=== PATIENT | male | born 1965 | race Two or more races ===

== ENCOUNTER 2020-10-01 08:03 | Emergency (ER) | payer MEDICAID, SELFPAY ==
[2020-10-01 09:29] VITALS: BP 144/73; PULSE 90; RESP 16; TEMP 37.1; O2SAT 100; BMI 39.2
--- NOTE | 2020-10-01 09:49 | ED_ITS ---
HPI - General Adult General Chief complaint: Skin/Abscess/Foreign Body Stated complaint: ABSCESS Time Seen by Provider: 10/01/20 09:37 Source: patient Mode of arrival: ambulatory Limitations: no limitations History of Present Illness HPI narrative: abscess to left buttocks x 2 weeks. No fevers, chills. Using warm compresses with continued redness, swelling and pain. Related Data Previous Rx's Medication Instructions Recorded alcohol swabs 1 pad TOPICAL .4 times a day 30 08/21/20 Days #200 ea dulaglutide 0.75 mg/0.5 mL 0.75 mg SUBCUT QWEEK 30 Days #2.5 08/21/20 subcutaneous pen injector ml doxycycline monohydrate 100 mg PO BID #14 tab 10/01/20 Allergies Allergy/AdvReac Type Severity Reaction Status Date / Time lisinopril [LISINOPRIL] Allergy Mild RASH Unverified 05/01/20 16:48 Review of Systems Review of Systems: Yes all other systems are reviewed and are negative Constitutional: Constitutional: Reports no additional constitutional complaints, Denies body ache(s), Denies chills, Denies fever(s), Denies headache(s) and Denies weakness Eyes: Eyes: Reports no additional eye complaints and Denies change in vision ENT: Reports system reviewed and no additional complaints, except as documented, Denies dizziness, Denies headache(s), Denies nasal congestion, Denies nasal discharge and Denies neck pain Cardiovascular: Cardiovascular: Reports no additional cardiovascular complaints, Denies chest pain, Denies leg edema and Denies dyspnea Respiratory: Respiratory: Reports no additional respiratory complaints, Denies cough and Denies dyspnea Gastrointestinal: Gastrointestinal: Reports no additional gastrointestinal complaints, Denies abdominal pain, Denies diarrhea, Denies nausea and Denies vomiting Genitourinary: Genitourinary: Denies urinary incontinence Musculoskeletal: Musculoskeletal: Reports no additional musculoskeletal complaints, Denies back pain, Denies arthralgias, Denies joint swelling, Denies neck pain, Denies numbness and Denies tingling Integumentary/Breasts: Skin/Breast: Reports system reviewed and no additional complaints, except as docu, Reports swelling, Reports erythema and Denies rash Neurologic: Reports system reviewed and no additional complaints, except as documented, Denies Abnormal speech present, Denies dizziness, Denies headache(s), Denies numbness, Denies tingling and Denies weakness PMF Past Medical History Attestation statement: The following information was validated with the patient. Source: old records reviewed and nursing notes reviewed Medical History Diabetes type 2, controlled HTN (hypertension) Surgical History Hx of removal of cyst Family History Family History Father Heart disease Diabetes Mother Diabetes Heart disease Social History Social History Smoked in Last 30 Days: No Use of substances other than those prescribed or required for medical reasons: No Advance Directives: Yes Advance Directives Information Provided: Yes Advance Directives on File: No Physical Exam Vital Signs: Vital Signs: Last Vital Signs Temp 98.7 F 10/01/20 09:29 Pulse 90 10/01/20 09:29 Resp 16 10/01/20 09:29 BP 144/73 H 10/01/20 09:29 Pulse Ox 100 10/01/20 09:29 Body Mass Index 39.2 Const: General: cooperative, healthy appearing, comfortable and no acute distress Orientation/consciousness: patient oriented x3 Limitations: no limitations HENMT: Head: Yes normal to inspection Ears: hearing grossly normal bilaterally General nose exam: Normal external nose present Face and sinus: Yes normal facial exam Mouth: Normal oral and palatal mucosa present Throat: Yes posterior oropharynx normal Eyes: General: appearance normal, both eyes and all related structures Pupils: Equal, round and reactive pupils present Neck: Neck: Yes normal visual inspection Chest: Chest palpation & inspection: normal inspection of the chest Resp: Effort & Inspection: normal respiratory effort Auscultation: clear to auscultation bilaterally Cardio: Rate: regular rate Rhythm: regular rhythm Peripheral pulses: Peripheral pulses 2+ throughout GI: Inspection: Yes normal to inspection Palpation (GI): Soft to palpation and nontender Auscultation: normal bowel sounds Back/Spine/Pelvis: Thoracic/Lumbar Spine: thoracic and lumbar spine normal to inspection Skin: Other: to the left buttocks there is central medium abscess with surrounding erythema and induration which does NOT extend to testicles or anus. General skin exam: no rashes or lesions noted Neuro: General: patient oriented x3, no focal motor deficits and normal sensation to monofilament Cranial nerves: Yes Equal, round and reactive pupils present Cognition (Neuro): normal cognition Speech: No Abnormal speech present Gait exam (Neuro): Normal gait present Motor exam (neuro): 5/5 motor strength present throughout Extrem: General: Yes normal to inspection Course Course Course Narrative: left buttocks abscess with surrounding cellulitis. No systemic s/s of infection. See procedure note. Reviewed worrisome signs and symptoms when to return to the emergency d epartment. Comfortable discharge home. Procedures Abscess I/D Site: other (left buttocks) Side (if applicable): left Local Anesthetic: lidocaine 2% Sent for culture/gram staining?: No Irrigation: Yes Packing used?: iodoform Discharge Plan Discharge Clinical Impression: Abscess of skin or subcutaneous tissue Patient Disposition: Home, Self-Care Instructions: Abscess (ED) Additional Instructions: return in 48 hrs for packing removal. if packing falls out on its own no need to return unless you have fevers or chills or worsening redness Prescriptions: New doxycycline monohydrate 100 mg tablet 100 mg PO BID Qty: 14 RF: 0 No Action Trulicity 0.75 mg/0.5 mL pen injector 0.75 mg subcut QWEEK 30 Days Qty: 2.5 RF: 6 alcohol swabs [Alcohol Pads] Pads, Medicated 1 pad topical .4 times a day 30 Days Qty: 200 RF: 4 Referrals: Daniella Colon MD [Primary Care Provider] - 2 days Interventions: ED Discharge Assessment Last Done: 10/01/20 10:27 Discharge Date/Time: 10/01/20 10:27
[2020-10-01] MEDS: Lidocaine HCl 2 % MPF 5 ML VIAL SUBCUT (10:15)
== END 2020-10-01 10:27 | disposition home or self-care (01) ==
PROVIDERS: Emergency Provider Emergency Medicine; PCP Internal Medicine
DX: L02.31 Cutaneous abscess of buttock (principal)
CPT/HCPCS: 10060; 99283; 99284

== ENCOUNTER → 2020-10-22 10:12 | Outpatient (BNVA) | payer MEDICAID, SELFPAY | PROVIDERS: PCP Internal Medicine; Visit Provider Surgery | DX: L72.0 Epidermal cyst (principal) | CPT/HCPCS: 99202 ==

== ENCOUNTER → 2020-11-04 07:31 | Outpatient (BNVA) | payer MEDICAID, SELFPAY | PROVIDERS: PCP Internal Medicine; Visit Provider Internal Medicine Endocrinology, Diabetes & Metabolism | DX: E11.29 Type 2 diabetes mellitus with other diabetic kidney complication (principal); E11.21 Type 2 diabetes mellitus with diabetic nephropathy; R80.9 Proteinuria, unspecified; I10 Essential (primary) hypertension; E78.5 Hyperlipidemia, unspecified; E66.9 Obesity, unspecified | CPT/HCPCS: 82947; 99212 ==

== ENCOUNTER 2020-11-04 08:25 | Outpatient (REF) | payer MEDICAID, SELFPAY ==
[2020-11-04 10:45] LABS: Alanine Aminotransferase 16 U/L (0-40); Albumin Level 4.2 g/dL (3.5-5.0); Alkaline Phosphatase 81 U/L (39-117); Anion Gap 14 (12-20); Aspartate Amino Transferase 17 U/L (5-37); Bilirubin Total 0.4 mg/dL (0.0-1.0); Blood Urea Nitrogen 11 mg/dL (9-16); Calcium 8.9 mg/dL (8.4-10.2); Carbon Dioxide 28 mmol/L (22-29); Chloride 108 mmol/L (96-108); Cholesterol 140 mg/dL; Estimated Glomerular Filt Rate > 60; Glucose Fasting 124 mg/dL (60-99); HDL Cholesterol 49 mg/dL; LDL Cholesterol Calculated 71 mg/dl; Potassium 4.2 mmol/L (3.3-5.1); Sodium 146 mmol/L (135-145); Total Protein 6.6 g/dL (6.5-8.0); Triglycerides 103 mg/dL
[2020-11-04 10:52] LABS: Creatinine Urine 83.62 mg/dL; Microalbum/Creatinine Ratio Ur 20.3 ug/mg cr
[2020-11-04 11:07] LABS: Free T4 (Free Thyroxine) 0.94 ng/dL (0.71-1.85)
[2020-11-04 11:34] LABS: Vitamin B12 252 pg/mL (200-900)
[2020-11-05 07:27] LABS: LDL Cholesterol Direct 70 mg/dL (<100)
== END 2020-11-04 08:26 | disposition home or self-care (01) ==
LOC: HO.10HDL 08:25
PROVIDERS: Visit Provider Internal Medicine Endocrinology, Diabetes & Metabolism
DX: R80.9 Proteinuria, unspecified (principal); E11.29 Type 2 diabetes mellitus with other diabetic kidney complication
CPT/HCPCS: 36415; 80053; 80061; 82043; 82607; 83721; 84439; 84443

== ENCOUNTER 2020-11-05 13:00 | Outpatient (REF) | payer MEDICAID, SELFPAY ==
[2020-11-05 12:50] VITALS: BP 128/65; PULSE 80; RESP 17; TEMP 36.8; O2SAT 95; BMI 39.7
--- NOTE | 2020-11-05 14:05 | MHC.SHP ---
Pre-Procedural Eval Section B Chief Complaint: Epidermal Cyst Allergies: Allergies Allergy/AdvReac Type Severity Reaction Status Date / Time lisinopril [LISINOPRIL] Allergy Mild RASH Verified 10/22/20 10:24 Plan I have reviewed the history and physical and performed a pertinent physical examination on my patient. No changes have occurred unless specified.
--- NOTE | 2020-11-05 14:05 | W.PM.OPN ---
Operative Note Operative Note Date of Service: 11/05/20 Narrative: Preop diagnosis: epidermal cyst, right upper back Postop diagnosis: Epidermal cyst, right upper back Procedure: Excision of epidermal cyst, right upper back under local anesthesia Surgeon: Lit Norton MD The patient is a 55-year-old male with an epidermal cyst on the right upper back measuring about 3 cm in size. He wanted this removed in view of symptoms and increase in size. He understood the technique of excision under local anesthesia. He was aware of the risks, benefits, and alternatives. Was brought to the minor procedure room. He was placed in prone position. The area of the cyst on the right upper back was prepped and draped. Lidocaine 1% was used for local anesthesia. An incision was made in the skin overlying this cyst using the IBD 15. This carried down through the full-thickness skin and thick subcutaneous fat until the capsule was visualized. I then sharply dissected the capsule off of the rest of the deep subcutaneous layer using sharp scissors circumferentially. We continued to dissect this all the way posteriorly until the entire cyst was completely delivered and sent as specimen. The cyst diameter is about almost 3 cm. I irrigated the area of excision. I closed the incision with full-thickness nylon 3 0 interrupted sutures. Dressings were applied He tolerated procedure well. There were no complication noted. Estimated blood loss was less than 3 cc.
== END 2020-11-05 13:01 | disposition home or self-care (01) ==
LOC: HO.MS 13:00
PROVIDERS: PCP Internal Medicine; Visit Provider Surgery
PROC: (CPT 11403; principal; 2020-11-05 13:00)
DX: L72.0 Epidermal cyst (principal); I10 Essential (primary) hypertension; E11.9 Type 2 diabetes mellitus without complications; Z79.899 Other long term (current) drug therapy; Z88.8 Allergy status to other drugs, medicaments and biological substances
CPT/HCPCS: 11403; 88304

== ENCOUNTER → 2020-11-18 10:29 | Outpatient (BNVA) | payer MEDICAID, SELFPAY | PROVIDERS: PCP Internal Medicine; Visit Provider Surgery Vascular Surgery | DX: I83.11 Varicose veins of right lower extremity with inflammation (principal) | CPT/HCPCS: 99202 ==

== ENCOUNTER → 2020-11-19 10:20 | Outpatient (BNVA) | payer MEDICAID, SELFPAY | PROVIDERS: PCP Internal Medicine; Visit Provider Surgery | DX: Z48.817 Encounter for surgical aftercare following surgery on the skin and subcutaneous tissue (principal); Z48.02 Encounter for removal of sutures; Z87.2 Personal history of diseases of the skin and subcutaneous tissue | CPT/HCPCS: 99212 ==

== ENCOUNTER 2020-12-08 07:58 | Outpatient (REF) | payer MEDICAID, SELFPAY ==
--- NOTE | ~2020-12-08 | US_ITS ---
EXAMINATION: RIGHT and LEFT LOWER EXTREMITY VENOUS ULTRASOUND (Reflux Exam) CLINICAL INDICATION: leg pain and varicose veins. COMPARISON: None. TECHNIQUE: Color flow triplex imaging and compression Doppler was performed to evaluate both the deep and the superficial systems bilaterally. To evaluate the superficial system, the examination was performed in the upright position. Color-flow Doppler ultrasound and compression ultrasound were utilized. In addition, maneuvers were utilized to demonstrate reflux. FINDINGS: 1. DEEP VENOUS ULTRASOUND OF THE RIGHT LOWER EXTREMITY: Respiratory variation, normal compression and augmented flow are noted in the right common femoral vein as well as the right popliteal vein and there is no evidence of deep venous thrombosis at these locations. There is no evidence of reflux in the deep system in either the common femoral vein or the popliteal vein. There is no evidence of a Levine's cyst. 2. SUPERFICIAL ULTRASOUND WITH DOPPLER OF RIGHT LOWER EXTREMITY: The right great saphenous vein at the saphenofemoral junction measures 6 mm, at the mid thigh 6 mm, [id number] 4 mm, nhbdn-enb-mfdu 3 mm, at mid calf 3 mm and at the ankle measures 3 mm. There is a 0.5 second reflux in the mid calf and 1.1 seconds reflux at the ankle. The right small saphenous vein measures 3 mm and shows no reflux. There is a safety aide in the distal thigh that measures 2 mm and does not demonstrate reflux. There are varicosities in the thigh and calf. There is a 3 mm varicosity in the proximal calf that demonstrates 0.7 second reflux. 3. DEEP VENOUS ULTRASOUND OF THE LEFT LOWER EXTREMITY: Respiratory variation, normal compression and augmented flow are noted in the left common femoral vein as well as the left popliteal vein and there is no evidence of deep venous thrombosis at these locations. There is reflux in the left popliteal vein measuring 2.1 seconds.. There is no evidence of a Levine's cyst. 4. SUPERFICIAL ULTRASOUND WITH DOPPLER OF LEFT LOWER EXTREMITY: Left great saphenous vein at the saphenofemoral junction measures 9 mm, at the mid thigh 4 mm, ltnrs-hhh-znmb 5 mm, uhdgl-npf-fltc 5 mm, at mid calf 3 mm and at the ankle measures 4 mm. There is no reflux demonstrated in the left great saphenous vein. The left small saphenous vein measures 3-4 mm and shows no reflux. There is a safety aide in the mid calf that measures 3 mm and does not demonstrate reflux. There are varicosities in the thigh and calf that do not demonstrate reflux. US/US venous duplex LE BI IMPRESSION: 1. No evidence of DVT. Left popliteal vein deep venous reflux. 2. Right greater saphenous vein reflux at mid calf and ankle. No left greater saphenous vein reflux.
== END 2020-12-08 07:59 | disposition home or self-care (01) ==
LOC: HO.US 07:58
PROVIDERS: Visit Provider Surgery Vascular Surgery
DX: I83.893 Varicose veins of bilateral lower extremities with other complications (principal); I83.11 Varicose veins of right lower extremity with inflammation
CPT/HCPCS: 93970

== ENCOUNTER → 2020-12-16 14:38 | Outpatient (BNVA) | payer MEDICAID, SELFPAY | PROVIDERS: PCP Internal Medicine; Visit Provider Surgery Vascular Surgery | DX: I83.11 Varicose veins of right lower extremity with inflammation (principal) | CPT/HCPCS: 99212 ==

== ENCOUNTER → 2021-06-30 07:55 | Outpatient (BNVA) | payer MEDICAID, SELFPAY | PROVIDERS: PCP Internal Medicine; Visit Provider Nurse Practitioner Gerontology | DX: E11.29 Type 2 diabetes mellitus with other diabetic kidney complication (principal); E11.21 Type 2 diabetes mellitus with diabetic nephropathy; E78.5 Hyperlipidemia, unspecified; I10 Essential (primary) hypertension; R80.9 Proteinuria, unspecified; E66.9 Obesity, unspecified; Z68.39 Body mass index [BMI] 39.0-39.9, adult | CPT/HCPCS: 82947; 83036; 99212 ==

== ENCOUNTER 2021-08-24 | Outpatient (REF) | payer MEDICAID, SELFPAY ==
[2021-08-24 15:50] LABS: Binax Internal Control QC Valid; Binax Now Covid-19 Ag Negative (Negative)
== END 2021-08-24 00:01 | disposition home or self-care (01) ==
LOC: HO.LAB
PROVIDERS: Visit Provider Internal Medicine
DX: Z20.822 Contact with and (suspected) exposure to COVID-19 (principal)
CPT/HCPCS: 36415; C9803

== ENCOUNTER → 2021-11-11 13:52 | Outpatient (BNVA) | payer MEDICAID, SELFPAY | PROVIDERS: PCP Internal Medicine; Visit Provider Surgery | DX: Z01.818 Encounter for other preprocedural examination (principal); K42.9 Umbilical hernia without obstruction or gangrene; E66.01 Morbid (severe) obesity due to excess calories | CPT/HCPCS: 99212 ==

== ENCOUNTER 2021-12-16 10:00 | Outpatient (RCR) | payer MEDICAID, SELFPAY | END 2021-12-16 11:06 | disposition home or self-care (01) | LOC: HO.PTCHIC 10:00 | PROVIDERS: PCP Internal Medicine; Visit Provider Physician Assistant Medical | DX: M54.50 Low back pain, unspecified (principal) | CPT/HCPCS: 97110; 97140; 97162 ==

== ENCOUNTER → 2021-12-29 07:38 | Outpatient (BNVA) | payer MEDICAID, SELFPAY | PROVIDERS: PCP Internal Medicine; Visit Provider Nurse Practitioner Gerontology | DX: E11.29 Type 2 diabetes mellitus with other diabetic kidney complication (principal); E11.21 Type 2 diabetes mellitus with diabetic nephropathy; E78.5 Hyperlipidemia, unspecified; E66.9 Obesity, unspecified; I10 Essential (primary) hypertension; R80.9 Proteinuria, unspecified; Z68.37 Body mass index [BMI] 37.0-37.9, adult | CPT/HCPCS: 82947; 83036; 99212 ==

== ENCOUNTER 2022-01-08 09:43 | Day surgery (SDC) | payer MEDICAID, SELFPAY ==
[2022-01-04 11:14] VITALS: BMI 39.0
[2022-01-04 12:01] VITALS: BMI 38.7
--- NOTE | 2022-01-07 08:46 | HO.ANESPROP2 ---
Documented by User: Cheryl Ferrara NP 01/07/22 08:46 HPI - Anesthesia Eval Consult details Narrative: 56yo M for Hernia Repair Umbilical possible mesh PMFSH Active Problems Active Problems: All Active Problems (Updated 01/04/22 @ 12:01 by Jordana Chavez, RN) Varicose veins of right lower extremity with inflammation (Acute) Morbid obesity (Acute) Umbilical hernia (Acute) Obesity (BMI 30-39.9) (Acute) Dyslipidemia (Acute) HTN (hypertension) (Acute) Diabetic nephropathy associated with type 2 diabetes mellitus (Acute) Epidermal cyst (Acute) Diabetes type 2, controlled (Acute) Past Medical History Medical History (Updated 01/04/22 @ 12:01 by Jordana Chavez RN) Ambulates with cane Back pain due to injury Diabetes type 2, controlled Diabetic nephropathy associated with type 2 diabetes mellitus Dyslipidemia Epidermal cyst HTN (hypertension) Morbid obesity Obesity (BMI 30-39.9) Umbilical hernia Family History Family History Father Heart disease Diabetes Mother Diabetes Heart disease Surgical History Surgical History (Updated 01/04/22 @ 12:00 by Jordana Chavez RN) Hx of removal of cyst Social History Social History Household Members: Significant Other Are you a primary special needs child caregiver to a significant other at home: No Do you presently have visiting nurse or other home services: Yes (Home medication check q week) Alcohol intake: current Alcohol intake frequency: holidays/special occasions only Patient Tobacco Use Status: Never used Tobacco Use of substances other than those prescribed or required for medical reasons: No Have you been hit, kicked, punched, or otherwise hurt by someone within the past year? If so, by whom?: No Are you DNR?: No Advance Directives: No Advance Directives Information Provided: Yes Advance Directives on File: No Recently lost weight without trying: No Meds Allergies Allergy/AdvReac Type Severity Reaction Status Date / Time lisinopril [LISINOPRIL] Allergy Mild RASH Verified 01/08/22 09:49 Home Medications Medication Instructions Recorded Confirmed Last Taken Type atorvastatin 10 mg tablet 10 mg PO BEDTIME 10/22/20 01/04/22 Unknown History carvedilol 12.5 mg tablet 12.5 mg PO Q12H 10/22/20 01/04/22 01/08/22 09:00 History cholecalciferol (vitamin D3) 25 25 mcg PO DAILY 10/22/20 01/04/22 Unknown History mcg (1,000 unit) capsule dextromethorphan-guaifenesin 10 ml PO 11/04/20 11/11/21 Unknown History mg-100 mg/5 mL oral syrup losartan 50 mg tablet 50 mg PO DAILY 11/04/20 01/04/22 Unknown History trazodone 150 mg tablet 150 mg PO BEDTIME 11/04/20 01/04/22 Unknown History hydrochlorothiazide 25 mg tablet 25 mg PO DAILY 11/19/20 01/04/22 Unknown History buspirone 5 mg tablet 1 tab PO QAM 01/04/22 01/04/22 01/08/22 09:00 History sertraline 100 mg tablet 1.5 tab PO DAILY 01/04/22 01/04/22 Unknown History zolpidem 10 mg tablet 1 tab PO BEDTIME PRN 01/04/22 01/04/22 Unknown History Exam Exam Date and Time: January 07, 2022 0846 Height,Weight and Vital Signs: Height 5 ft 10 in Weight 122.47 kg Assessment and Plan Assessment Anesthesia Assessment: Chart Reviewed Documented by User: Israel Varghese MD 01/08/22 13:13 HPI - Anesthesia Eval Consult details Narrative: 56yo M for Hernia Repair Umbilical possible mesh 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 , DM , HTN , Morbid obesity [facility] Past Medical History Medical History (Updated 01/04/22 @ 12:01 by Jordana Chavez, JALIL) Ambulates with cane Back pain due to injury Diabetes type 2, controlled Diabetic nephropathy associated with type 2 diabetes mellitus Dyslipidemia Epidermal cyst HTN (hypertension) Morbid obesity Obesity (BMI 30-39.9) Umbilical hernia Functional capacity: independent ambulation Family History Family History Father Heart disease Diabetes Mother Diabetes Heart disease Family history of problems with anesthesia: No Surgical History Surgical History (Updated 01/04/22 @ 12:00 by Jordana Chavez RN) Hx of removal of cyst History of Problems with Anesthesia: No Social History Social History Household Members: Significant Other Are you a primary special needs child caregiver to a significant other at home: No Do you presently have visiting nurse or other home services: Yes (Home medication check q week) Alcohol intake: current Alcohol intake frequency: holidays/special occasions only Patient Tobacco Use Status: Never used Tobacco Use of substances other than those prescribed or required for medical reasons: No Have you been hit, kicked, punched, or otherwise hurt by someone within the past year? If so, by whom?: No Are you DNR?: No Advance Directives: No Advance Directives Information Provided: Yes Advance Directives on File: No Recently lost weight without trying: No Meds Allergies Allergy/AdvReac Type Severity Reaction Status Date / Time lisinopril [LISINOPRIL] Allergy Mild RASH Verified 01/08/22 09:49 Home Medications Medication Instructions Recorded Confirmed Last Taken Type atorvastatin 10 mg tablet 10 mg PO BEDTIME 10/22/20 01/04/22 Unknown History carvedilol 12.5 mg tablet 12.5 mg PO Q12H 10/22/20 01/04/22 01/08/22 09:00 History cholecalciferol (vitamin D3) 25 25 mcg PO DAILY 10/22/20 01/04/22 Unknown History mcg (1,000 unit) capsule dextromethorphan-guaifenesin 10 ml PO 11/04/20 11/11/21 Unknown History mg-100 mg/5 mL oral syrup losartan 50 mg tablet 50 mg PO DAILY 11/04/20 01/04/22 Unknown History trazodone 150 mg tablet 150 mg PO BEDTIME 11/04/20 01/04/22 Unknown History hydrochlorothiazide 25 mg tablet 25 mg PO DAILY 11/19/20 01/04/22 Unknown History buspirone 5 mg tablet 1 tab PO QAM 01/04/22 01/04/2222 09:00 History sertraline 100 mg tablet 1.5 tab PO DAILY 01/04/22 01/04/22 Unknown History zolpidem 10 mg tablet 1 tab PO BEDTIME PRN 01/04/22 01/04/22 Unknown History Exam Airway Mallampati Class: III TM Dist: >3cm Neck ROM: Full Loose/Missing/Broken Teeth: Yes (Chipped teeth ) Heart: s1, S2 Lungs: distant breath sounds Assessment and Plan Assessment Anesthesia Assessment: Anesthesia Plan Discussed Final Anesthetic Review Family History of Problems with Anesthesia: No History of Problems with Anesthesia: No NPO: Yes ASA Class: III Final Preanesthetic Review: Meds/Allgs Chart Reviewed, Consent Obtained/Reviewed and Anes Risks/Benef Reviewed Patient Risk: High Procedure Risk: Intermediate Anesthetic Plan Anesthetic Plan: GA Disposition: Standard PACU
[2022-01-08] VITALS (8 sets, daily range): BP systolic 98–128; BP diastolic 64–78; PULSE 70–80; RESP 8–18; TEMP 36.4–37.3; O2SAT 95–98
[2022-01-08 10:05] LABS: Glucose, Whole Blood 129 mg/dL (60-115)
[2022-01-08] MEDS: Lactated Ringers 1,000 ML 50 ML IVCONT (10:46)
--- NOTE | 2022-01-08 13:48 | P.OP_ITS ---
Operative Note Operative Note Date of Service: 01/08/22 Narrative: Preop diagnosis: Umbilical hernia Postop diagnosis: Umbilical hernia Procedure: Repair of umbilical hernia with Ventralex mesh Surgeon: Lit Norton MD The patient is a 56-year-old male with the partially reducible mass on the umbilicus consistent with umbilical hernia. In view of symptoms, he wanted proceed with repair. He understood the technique of repair with mesh. He was aware of the risks, benefits, and alternatives . He was brought to the operating room. He was placed supine under general anesthesia via laryngeal mask airway. He was prepped and draped in the usual sterile fashion. A surgical time-out was done. The patient received cefazolin 2 g IV preoperatively. I infiltrated the planned line of incision with lidocaine 1%. I made a curvilinear transverse incision in the infraumbilical margin using blade 15. This was carried down through the full-thickness of skin and subcutaneous fat with electrocautery. I proceeded to sharply dissected with Metzenbaum scissors through the subcutaneous fat until I visualized the hernia. I sharply dissected the hernia off of the rest of subcutaneous layer you with Metzenbaum scissors down to the fascia. The umbilicus was lifted off the hernia as a flap. I defined the hernia defect. I continued to sharply divide thin adhesions from the herniated fat into the fascial edge. This allowed me to free up the entire hernia circumferentially and this was reduced to the defect. The fascial defect was about 2 cm in size. I therefore used a small-sized Ventralex mesh. I positioned the mesh flat underneath the fascia. I secured the Prolene straps of the mesh to the fascial edge using Prolene 2 sutures on both sides. the Prolene straps were then trimmed flush on the fascial level I closed the fascia with a [id number] Maxon 1 stitch. I applied a Dexon 3-0 stitch to tack the umbilicus to the fascia to re-create the dimple I irrigated. I closed the incision with a running subcuticular Dexon 4-0 stitch. I infiltrated the area with Marcaine 0.5% for postop analgesia. Steri- Strips and dressings were applied. The procedure was completed The patient tolerated the procedure well. There were no complications noted. Initial and final counts of sponges and instruments were correct. Estimated blood loss was less than 5 cc The patient extubated without difficulty and transferred to the recovery room w ith stable vital signs.
== END 2022-01-08 15:23 | disposition home or self-care (01) ==
PROVIDERS: PCP Internal Medicine; Visit Provider Surgery
PROC: (CPT 49585; principal; 2022-01-08 11:30)
DX: K42.9 Umbilical hernia without obstruction or gangrene (principal); G47.33 Obstructive sleep apnea (adult) (pediatric); E11.21 Type 2 diabetes mellitus with diabetic nephropathy; I10 Essential (primary) hypertension; E78.5 Hyperlipidemia, unspecified; E66.01 Morbid (severe) obesity due to excess calories; Z68.39 Body mass index [BMI] 39.0-39.9, adult; G89.29 Other chronic pain; M54.9 Dorsalgia, unspecified; Z79.899 Other long term (current) drug therapy; Z88.8 Allergy status to other drugs, medicaments and biological substances
CPT/HCPCS: 49585; 82947; C1781; J0690; J2405; J3010

== ENCOUNTER 2022-01-20 10:53 | Outpatient (REF) | payer MEDICAID, SELFPAY ==
[2022-01-20 12:17] LABS: Alanine Aminotransferase 19 U/L (0-40); Albumin Level 4.2 g/dL (3.5-5.0); Alkaline Phosphatase 81 U/L (39-117); Anion Gap 13 (12-20); Aspartate Amino Transferase 23 U/L (5-37); Bilirubin Total 0.7 mg/dL (0.0-1.0); Blood Urea Nitrogen 14 mg/dL (9-16); Calcium 8.9 mg/dL (8.4-10.2); Carbon Dioxide 29 mmol/L (22-29); Chloride 103 mmol/L (96-108); Cholesterol 110 mg/dL; Estimated Glomerular Filt Rate > 60; Glucose Fasting 101 mg/dL (60-99); HDL Cholesterol 32 mg/dL; LDL Cholesterol Calculated 57 mg/dl; Potassium 3.8 mmol/L (3.3-5.1); Sodium 141 mmol/L (135-145); Triglycerides 108 mg/dL
[2022-01-20 12:39] LABS: Creatinine Urine 243.63 mg/dL; Microalbum/Creatinine Ratio Ur 7.3 ug/mg cr
[2022-01-20 12:43] LABS: Vitamin D 25-OH Total 33.9 ng/mL (>30)
[2022-01-22 01:37] LABS: LDL Cholesterol Direct 60 mg/dL (<100)
== END 2022-01-20 10:54 | disposition home or self-care (01) ==
LOC: HO.LAB 10:53
PROVIDERS: Visit Provider Nurse Practitioner Gerontology
DX: E11.29 Type 2 diabetes mellitus with other diabetic kidney complication (principal); R80.9 Proteinuria, unspecified; E55.9 Vitamin D deficiency, unspecified
CPT/HCPCS: 36415; 80053; 80061; 82043; 82306; 83721

== ENCOUNTER → 2022-01-25 09:05 | Outpatient (BNVA) | payer MEDICAID, SELFPAY | PROVIDERS: PCP Internal Medicine; Visit Provider Dietitian, Registered | DX: E11.21 Type 2 diabetes mellitus with diabetic nephropathy (principal) | CPT/HCPCS: 97802 ==

== ENCOUNTER → 2022-03-26 09:55 | Outpatient (BNVA) | payer MEDICAID, SELFPAY | PROVIDERS: PCP Internal Medicine; Visit Provider Dietitian, Registered | DX: E11.21 Type 2 diabetes mellitus with diabetic nephropathy (principal) | CPT/HCPCS: 97803 ==

== ENCOUNTER 2022-03-27 13:08 | Inpatient (IN) | payer MEDICAID, SELFPAY ==
--- NOTE | ~2022-03-27 | CT_ITS ---
EXAMINATION: CT ABDOMEN AND PELVIS WITHOUT CONTRAST CLINICAL INFORMATION: Right-sided abdominal pain. Rule out appendicitis or biliary disease. COMPARISON: CT abdomen pelvis 01/18/2009 TECHNIQUE: Multidetector volumetric imaging was performed from the superior aspect of the liver through the pubic symphysis. Sagittal and coronal reformatted images were obtained on the technologist's workstation. This CT examination was performed using dose optimization techniques as appropriate, variously including the following: *Automated exposure control *Adjustment of mA and/or kV according to patient size (this includes techniques or standardized protocols for targeted exams where dose is matched to indication/reason for exam; i.e. extremities or head) *Use of iterative reconstruction technique DLP: 912 mGy-cm FINDINGS: LUNG BASES: Minimal bibasilar atelectasis. Mild LAD coronary artery calcification. LIVER, GALLBLADDER, AND BILIARY TREE: The liver is normal in size, shape, and attenuation. No focal hepatic lesion or biliary ductal dilatation is present. The gallbladder is unremarkable with no evidence of radiopaque gallstones, gallbladder wall thickening, or obvious pericholecystic inflammatory changes. PANCREAS: Unremarkable. SPLEEN: Unremarkable. ADRENAL GLANDS: Unremarkable. KIDNEYS AND URETERS: The kidneys are normal in size, shape, and attenuation. No hydronephrosis, hydroureter, or calculi seen. No perinephric stranding. BLADDER: Unremarkable. GASTROINTESTINAL TRACT: The appendix is markedly dilated measuring up to 2.7 cm in diameter with suspected mural thickening and periappendiceal fat stranding with thickening of the adjacent pararenal and lateral conal fascia. No extraluminal gas or periappendiceal abscess. No dilated bowel loops or additional bowel wall thickening couple diverticuli the proximal sigmoid colon noted. No ascites or free air. ABDOMINAL WALL: Small suspected fat-containing left inguinal hernia. LYMPH NODES: No lymphadenopathy. VASCULAR: Normal caliber abdominal aorta with mild tortuosity. PELVIC VISCERA: Normal sized prostate gland with coarse calcifications. OSSEOUS STRUCTURES: No acute fracture or suspicious osseous lesion. Mild multilevel degenerative disc disease. CT/CT abdomen pelvis wo con IMPRESSION: 1. Markedly dilated fluid-filled appendix with periappendiceal inflammatory change compatible with acute appendicitis. No evidence of perforation or abscess. The degree of appendiceal dilation is somewhat atypical and raises the possibility of an underlying mucocele with superimposed acute appendicitis. This critical result was discussed with Dr. Brito at 7:33 PM on 03/27/2022 and it was ascertained that the content and urgency of the report was understood at the time of direct communication.
[2022-03-27 13:42] VITALS: BP 130/80; PULSE 97; RESP 20; TEMP 37.9; O2SAT 95; BMI 37.3
[2022-03-27] MEDS: Acetaminophen 325 MG TABLET 650 MG PO (13:47)
[2022-03-27 16:49] VITALS: BP 126/76; PULSE 98; RESP 20; TEMP 37.5; O2SAT 95
[2022-03-27 17:07] LABS: MANUAL DIFF FLAG NO
[2022-03-27 17:16] LABS: Basophils Percent Auto 0.2 % (0-2); Hemoglobin 14.2 g/dl (14.0-18.0); Imm Gran Abs Auto 0.05 X10*3/uL (0.00-0.03); Imm Gran Pct Auto 0.4 % (0.0-0.4); Lymphocytes Absolute Auto 0.7 X10*3/uL (1.2-4.9); Lymphocytes Percent Auto 6.1 % (20-40); Mean Corpuscular Hemoglobin 28.5 pg (27.0-33.0); Mean Corpuscular Volume 86.3 fL (80.0-98.0); Mean Platelet Volume 10.1 fL (9.4-12.4); Monocytes Absolute Auto 0.6 X10*3/uL (0.1-1.2); Monocytes Percent Auto 4.7 % (2-11); Neutrophils Absolute Auto 10.5 x10*3/uL (2.0-8.3); Neutrophils Percent Auto 88.6 % (45-73); Platelet Count 138 X10*3/uL (160-400); Red Blood Count 4.98 X10*6/uL (4.60-5.80); Red Cell Distribution Width 13.5 % (11.0-16.0); White Blood Count 11.9 X10*3/uL (4.8-10.8)
[2022-03-27 17:25] LABS: COVID-19 Test Negative (Negative)
[2022-03-27 17:27] LABS: Alanine Aminotransferase 20 U/L (0-40); Albumin Level 4.4 g/dL (3.5-5.0); Alkaline Phosphatase 82 U/L (39-117); Anion Gap 17 (12-20); Aspartate Amino Transferase 18 U/L (5-37); Bilirubin Direct 0.3 mg/dL (0.0-0.5); Bilirubin Total 0.7 mg/dL (0.0-1.0); Blood Urea Nitrogen 13 mg/dL (9-16); Calcium 8.9 mg/dL (8.4-10.2); Carbon Dioxide 28 mmol/L (22-29); Chloride 99 mmol/L (96-108); Creatinine Clr Calc Pharmacy 100.1; Estimated Glomerular Filt Rate > 60; Glucose Random 136 mg/dL (60-115); Sodium 140 mmol/L (135-145); Total Protein 7.3 g/dL (6.5-8.0)
[2022-03-27 17:29] LABS: Lactic Acid 2.2 mmol/L (0.5-2.0)
--- NOTE | 2022-03-27 18:02 | ECG_ITS ---
Test Reason : cp Blood Pressure : / mmHG Vent. Rate : 096 BPM Atrial Rate : 096 BPM P-R Int : 126 ms QRS Dur : 100 ms QT Int : 356 ms P-R-T Axes : 050 028 012 degrees QTc Int : 449 ms Normal sinus rhythm Incomplete right bundle branch block Nonspecific T wave abnormality Abnormal ECG When compared with ECG of 16-OCT-2012 19:33, Incomplete right bundle branch block is now Present Nonspecific T wave abnormality is now Present Heart rate has increased Referred By: Shawn Brito Electronically Signed By:MAKAYLA AMLIN
--- NOTE | 2022-03-27 18:03 | ED_ITS ---
HPI - Abdominal Pain General Chief Complaint: Abdominal Pain Stated Complaint: abd pain Time Seen by Provider: 03/27/22 17:30 Source: patient and other (Girlfriend, Emily) Mode of arrival: ambulatory Limitations: no limitations History of Present Illness HPI narrative: I received a critical lab value phone call from the lab, the patient had elevated lactate at 2.2. 56-year-old male who presents emergency department for evaluation of abdominal pain. Patient states that the pain began yesterday at around 12:00 hours while he was watching television, he does not remember what he had to eat for breakfast. He states the pain came on suddenly, the pain is been constant and sharp since onset, the pain is currently 10/10. The pain does not radiate to his back or to her shoulders. He states the pain is worse with breathing, movement and with any bumps on the ride over. He denied fever, chills, rhinorrhea, sore throat, cough, chest pain. He does feel short of breath secondary to his pain. He denied nausea, vomiting or diarrhea. The patient states that he had a umbilical hernia repair [address] Clark. Related Data Home Medications Medication Instructions Recorded Confirmed atorvastatin 10 mg tablet 10 mg PO BEDTIME 10/22/20 03/27/22 carvedilol 12.5 mg tablet 12.5 mg PO Q12H 10/22/20 03/27/22 cholecalciferol (vitamin D3) 25 25 mcg PO DAILY 10/22/20 03/27/22 mcg (1,000 unit) capsule losartan 50 mg tablet 50 mg PO DAILY 11/04/20 03/27/22 trazodone 150 mg tablet 150 mg PO BEDTIME 11/04/20 03/27/22 hydrochlorothiazide 25 mg tablet 25 mg PO DAILY 11/19/20 03/27/22 buspirone 5 mg tablet 1 tab PO DAILY 01/04/22 03/27/22 sertraline 100 mg tablet 1.5 tab PO DAILY 01/04/22 03/27/22 dulaglutide 3 mg/0.5 mL 3 mg subcut FR@0900 03/27/22 03/27/22 subcutaneous pen injector (Trulicity) topiramate 50 mg tablet (Topamax) 50 mg PO BID PRN Tremor(S) 03/27/22 03/27/22 zolpidem 10 mg tablet 10 mg PO BEDTIME PRN Sleep 03/27/22 03/27/22 Previous Rx's Medication Instructions Recorded blood-glucose meter (FreeStyle #1 ea 12/29/21 Lite Meter kit) Allergies Allergy/AdvReac Type Severity Reaction Status Date / Time lisinopril [LISINOPRIL] Allergy Mild RASH Verified 01/20/22 10:42 Review of Systems Review of Systems Yes all other systems are reviewed and are negative FORMERLY [facility], [facility]1983 Past Medical History FORMERLY [facility], [facility]–1983 Narrative: Social history: The patient denies tobacco, alcohol and drug use. Medical History Ambulates with cane Back pain due to injury Diabetes type 2, controlled Diabetic nephropathy associated with type 2 diabetes mellitus Dyslipidemia Epidermal cyst HTN (hypertension) Morbid obesity Obesity (BMI 30-39.9) Umbilical hernia Surgical History History of umbilical hernia repair (~01/08/22) Hx of removal of cyst Family History Family History Father Heart disease Diabetes Mother Diabetes Heart disease Social History Social History Household Members: Significant Other Are you a primary client care consultant to a significant other at home: No Do you presently have visiting nurse or other home services: Yes (Home medication check q week) Alcohol intake: current Alcohol intake frequency: holidays/special occasions only Patient Tobacco Use Status: Never used Tobacco Advance Directives: No Advance Directives Information Provided: No Physical Exam ED Vital Signs: Vital Signs - 24 hr 03/27/22 13:42 03/27/22 16:49 Temperature 100.2 F 99.5 F Pulse Rate 97 98 Respiratory Rate 20 20 Blood Pressure 130/80 126/76 Pulse Oximetry 95 95 Oxygen Delivery Method Room Air Room Air BMI result Body Mass Index 37.3 Const Other: Awake, alert, male patient, very pleasant cooperative, answers all questions appropriately. Elevated BMI 37.3. HENMT Head: Yes normal to inspection, Yes normocephalic and Yes atraumatic Ears: external ears normal General nose exam: Normal external nose present Face and sinus: Yes normal facial exam Mouth: Normal oral and palatal mucosa present Throat: Yes posterior oropharynx normal Eyes General: appearance normal, both eyes and all related structures Pupils: Equal, round and reactive pupils present Neck Neck: Yes normal visual inspection, Yes no lymphadenopathy, Yes trachea midline and Yes supple Chest Chest palpation & inspection: normal inspection of the chest and normal palpation of entire chest wall Resp Effort & Inspection: normal respiratory effort and able to speak in complete sentences Auscultation: clear to auscultation bilaterally Cardio Rate: regular rate Rhythm: regular rhythm Heart sounds: S1 normal heart sound present, S2 normal heart sound present and no murmurs GI Inspection: Yes normal to inspection Palpation (GI): Soft to palpation, Tenderness to palpation present (GI) in the RLQ (Moderate) and in the RUQ (Moderate) and no guarding Auscultation: normal bowel sounds General: Yes no CVA tenderness Back/Spine/Pelvis Back: no CVA tenderness Skin General skin exam: no rashes or lesions noted Neuro Cranial nerves: Yes CN's II-XII intact bilaterally and Yes Equal, round and reactive pupils present Cognition (Neuro): normal cognition Motor exam (neuro): 5/5 motor strength present throughout Extrem General: Yes normal to inspection Psych Appearance: grossly normal Speech and movement: Normal speech and movement present Affect: normal affect Attitude: cooperative Thought process: Normal thought process present Thought content: Normal thought content present Course Course Course Narrative: 56 ear-old male who presents emergency department for evaluation of right-sided abdominal pain which began suddenly yesterday at 12:00 hours. The patient has right upper and right lower quadrant tenderness on exam. Differential includes was not limited to cholecystitis, appendicitis, pancreatitis, kidney stone. Laboratory evaluation was ordered. CT scan of the abdomen pelvis without IV contrast will be obtained. Patient's pain was treated with Toradol 15 mg IV, Zofran 4 mg IV. He is also ordered to get normal saline x1 L. the patient did receive oral Tylenol after triage. 1815: Laboratory evaluation: WBC elevated 11,900, platelets low 138,000. Glucose elevated 136. Lactate elevated 2.2. COVID-19 negative. 1958: CT scan of the abdomen pelvis radiology reading as follows: IMPRESSION: 1. Markedly dilated fluid-filled appendix with periappendiceal inflammatory change compatible with acute appendicitis. No evidence of perforation or abscess. The degree of appendiceal dilation is somewhat atypical and raises the possibility of an underlying mucocele with superimposed acute appendicitis. This critical result was discussed with Dr. Brito at 7:33 PM on 03/27/2022 and it was ascertained that the content and urgency of the report was understood at the time of direct communication. Dictated By:Juan Peralta I will discuss this finding with the covering surgeon, Dr. Alfonso. 2018: I did discuss the case with Dr. Alfonso and the patient will be admitted to his service. Patient will be kept NPO. Surgical consult was ordered. Patient will be treated with Zosyn 4.5 g IV. MDM - Abdominal Pain Lab Data Result diagrams: 03/27/22 17:00 03/27/22 17:00 Labs: Lab Results 03/27/22 03/27/22 03/27/22 Range/Units 17:00 17:00 17:00 WBC 11.9 H (4.8-10.8) X10*3/uL RBC 4.98 (4.60-5.80) X10*6/uL Hgb 14.2 (14.0-18.0) g/dl Hct 43.0 (42.0-52.0) % MCV 86.3 (80.0-98.0) fL MCH 28.5 (27.0-33.0) pg MCHC 33.0 (31.0-36.0) g/dl RDW 13.5 (11.0-16.0) % Plt Count 138 L (160-400) X10*3/uL MPV 10.1 (9.4-12.4) fL Immature Gran % (Auto) 0.4 (0.0-0.4) % Neut % (Auto) 88.6 H (45-73) % Lymph % (Auto) 6.1 L (20-40) % [place] % (Auto) 4.7 (2-11) % Eos % (Auto) 0.0 (0-4) % Baso % (Auto) 0.2 (0-2) % Lymph # (Auto) 0.7 L (1.2-4.9) X10*3/uL [place] # (Auto) 0.6 (0.1-1.2) X10*3/uL Eos # (Auto) 0.0 (0.0-0.4) X10*3/uL Baso # (Auto) 0.0 (0.0-0.2) X10*3/uL Abs Immat Gran (auto) 0.05 H (0.00-0.03) X10*3/uL Absolute Neuts (auto) 10.5 H (2.0-8.3) x10*3/uL Absolute Nucleated RBC 0.000 (0.0-0.012) X10*3/uL Nucleated RBC % (auto) 0.0 (0.0-0.2) /100WBC Sodium 140 (135-145) mmol/L Potassium 4.0 (3.3-5.1) mmol/L Chloride 99 (96-108) mmol/L Carbon Dioxide 28 (22-29) mmol/L Anion Gap 17 (12-20) BUN 13 (9-16) mg/dL Creatinine 1.06 (0.5-1.4) mg/dL Estim Creat Clear Calc 100.1 Estimated GFR > 60 Random Glucose 136 H (60-115) mg/dL Lactic Acid 2.2 H* (0.5-2.0) mmol/L Calcium 8.9 (8.4-10.2) mg/dL Total Bilirubin 0.7 (0.0-1.0) mg/dL Direct Bilirubin 0.3 (0.0-0.5) mg/dL AST 18 (5-37) U/L ALT 20 (0-40) U/L Alkaline Phosphatase 82 (39-117) U/L Total Protein 7.3 (6.5-8.0) g/dL Albumin 4.4 (3.5-5.0) g/dL Lipase 69 (8-78) U/L COVID-19 (GLORY) (Negative) COVID-19 Clin Com 03/27/22 Range/Units 17:01 WBC (4.8-10.8) X10*3/uL RBC (4.60-5.80) X10*6/uL Hgb (14.0-18.0) g/dl Hct (42.0-52.0) % MCV (80.0-98.0) fL MCH (27.0-33.0) pg MCHC (31.0-36.0) g/dl RDW (11.0-16.0) % Plt Count (160-400) X10*3/uL MPV (9.4-12.4) fL Immature Gran % (Auto) (0.0-0.4) % Neut % (Auto) (45-73) % Lymph % (Auto) (20-40) % [place] % (Auto) (2-11) % Eos % (Auto) (0-4) % Baso % (Auto) (0-2) % Lymph # (Auto) (1.2-4.9) X10*3/uL [place] # (Auto) (0.1-1.2) X10*3/uL Eos # (Auto) (0.0-0.4) X10*3/uL Baso # (Auto) (0.0-0.2) X10*3/uL Abs Immat Gran (auto) (0.00-0.03) X10*3/uL Absolute Neuts (auto) (2.0-8.3) x10*3/uL Absolute Nucleated RBC (0.0-0.012) X10*3/uL Nucleated RBC % (auto) (0.0-0.2) /100WBC Sodium (135-145) mmol/L Potassium (3.3-5.1) mmol/L Chloride (96-108) mmol/L Carbon Dioxide (22-29) mmol/L Anion Gap (12-20) BUN (9-16) mg/dL Creatinine (0.5-1.4) mg/dL Estim Creat Clear Calc Estimated GFR Random Glucose (60-115) mg/dL Lactic Acid (0.5-2.0) mmol/L Calcium (8.4-10.2) mg/dL Total Bilirubin (0.0-1.0) mg/dL Direct Bilirubin (0.0-0.5) mg/dL AST (5-37) U/L ALT (0-40) U/L Alkaline Phosphatase (39-117) U/L Total Protein (6.5-8.0) g/dL Albumin (3.5-5.0) g/dL Lipase (8-78) U/L COVID-19 (GLORY) Negative (Negative) COVID-19 Clin Com See Note Discharge Plan Discharge Prescriptions: No Action zolpidem 10 mg Tablet 10 mg PO BEDTIME PRN (Reason: Sleep) topiramate [Topamax] 50 mg Tablet 50 mg PO BID PRN (Reason: Tremor(S)) Trulicity 3 mg/0.5 mL pen injector 3 mg subcut FR@0900 sertraline 100 mg tablet 1.5 tab PO DAILY buspirone 5 mg tablet 1 tab PO DAILY cholecalciferol (vitamin D3) 25 mcg (1,000 unit) capsule 25 mcg PO DAILY atorvastatin 10 mg tablet 10 mg PO BEDTIME carvedilol 12.5 mg tablet 12.5 mg PO Q12H trazodone 150 mg tablet 150 mg PO BEDTIME losartan 50 mg tablet 50 mg PO DAILY hydrochlorothiazide 25 mg tablet 25 mg PO DAILY (DME) blood-glucose meter [FreeStyle Lite Meter] Kit See Rx Instructions .ROUTE .MEDSUPPLY Qty: 1 0RF Rx Instructions: As directed twice a day
[2022-03-27 18:27] LABS: Lipase 69 U/L (8-78)
--- NOTE | 2022-03-27 18:43 | PHA.MEDREC ---
Pharmacy Consult ? Medication Reconciliation Pharmacy has completed the medication reconciliation. spoke with pt and . Pt states they take topamax and ambien asneeded but there is no recent fill history for them. all other medications have claim history.
[2022-03-27 19:04] LABS: Reflex Lactate? Lactic Acid Added
--- NOTE | 2022-03-27 20:16 | PM.HPGS ---
History of Present Illness History of Present Illness Date of Service: 03/28/22 Chief complaint: appendicitis Narrative: Titus Norton is a 56 year old obese male with DMII who delevoped abd pain yesterday that progressed to today. He was noted to have a mild leukocytosis to 11.2 & CT scan c/w acute appy, but appendiceal dilation to 2.7cm was noted re: radiologist as possible mucocele. The patient notes that he had a ventral/umbilical hernia repair with mesh by Dr. Norton and showed me the implant card Patient does endorse continued right-sided abdominal pain up into the sub costal area. However, he denies any typical symptoms of biliary disease at this time. Review of Systems Review of Systems: Yes all other systems are reviewed and are negative Constitutional: Constitutional: Reports as per [facility] Past Medical History Medical History Ambulates with cane Back pain due to injury Diabetes type 2, controlled Diabetic nephropathy associated with type 2 diabetes mellitus Dyslipidemia Epidermal cyst HTN (hypertension) Morbid obesity Obesity (BMI 30-39.9) Umbilical hernia Family History Family History Father Heart disease Diabetes Mother Diabetes Heart disease Surgical History Surgical History History of umbilical hernia repair (~01/08/22) Hx of removal of cyst Social History Social History Household Members: Significant Other Housing: House Are you a primary healthcare administration internship to a significant other at home: No Do you presently have visiting nurse or other home services: No Alcohol intake: current Alcohol intake frequency: holidays/special occasions only Patient Tobacco Use Status: Never used Tobacco Use of substances other than those prescribed or required for medical reasons: No Have you been hit, kicked, punched, or otherwise hurt by someone within the past year? If so, by whom?: No Do you feel safe in your current relationship?: Yes Is there a partner from a previous relationship who is making you feel unsafe now?: No Are you made to feel afraid or neglected: No Advance Directives: No Advance Directives Information Provided: No Do you have thoughts of harming others: None Do you have a plan to hurt others: No Plan Recently lost weight without trying: No Eating poorly because of decreased appetite: No Nutrition Risks: No Nutritional Risk Poor oral hygiene: No service: No Current occupational status: disabled Meds Allergies Allergy/AdvReac Type Severity Reaction Status Date / Time lisinopril [LISINOPRIL] Allergy Mild RASH Verified 01/20/22 10:42 Active Medications: Current Medications Pharmacy Consult (Consult Rx Perform Med Rec) 1 each MISCELLANE ONCE PRN PRN Reason: Consult order Home Medications Medication Instructions Recorded Confirmed Last Taken Type atorvastatin 10 mg tablet 10 mg PO BEDTIME 10/22/20 03/27/22 03/26/22 History carvedilol 12.5 mg tablet 12.5 mg PO Q12H 10/22/20 03/27/22 03/26/22 History cholecalciferol (vitamin D3) 25 25 mcg PO DAILY 10/22/20 03/27/22 03/26/22 History mcg (1,000 unit) capsule losartan 50 mg tablet 50 mg PO DAILY 11/04/20 03/27/22 03/26/22 History trazodone 150 mg tablet 150 mg PO BEDTIME 11/04/20 03/27/22 03/26/22 History hydrochlorothiazide 25 mg tablet 25 mg PO DAILY 11/19/20 03/27/22 03/26/22 History buspirone 5 mg tablet 1 tab PO DAILY 01/04/22 03/27/22 03/26/22 History sertraline 100 mg tablet 1.5 tab PO DAILY 01/04/22 03/27/22 03/26/22 History dulaglutide 3 mg/0.5 mL 3 mg subcut FR@0900 03/27/22 03/27/22 03/26/22 History subcutaneous pen injector (Trulicity) topiramate 50 mg tablet (Topamax) 50 mg PO BID PRN Tremor(S) 03/27/22 03/27/22 Unknown History zolpidem 10 mg tablet 10 mg PO BEDTIME PRN Sleep 03/27/22 03/27/22 Unknown History Physical Exam Vital Signs: Vital Signs: Last Vital Signs Temp 99.5 F 03/27/22 16:49 Pulse 98 03/27/22 16:49 Resp 20 03/27/22 16:49 BP 126/76 08/13/22 16:49 Pulse Ox 95 03/27/22 16:49 O2 Del Method 03/27/22 16:49 BMI result Body Mass Index 37.3 The patient is non-toxic & in good spirits NC/AT, PERRLA, EOMI Mood, affect & judgment all appear appropriate Sclera anicteric conjunctiva pink and moist Oropharynx is clear with no aphthous ulcers, Mallampati class 4, mucous membranes moist Neck is supple with no masses, adenopathy or bruits Thyroid is nontender and free of dominant masses Heart is regular, normal S1-S2 no rubs or murmurs Lungs are clear and equal anteriorly with no audible wheezing, rubs or dullness to percussion No CVA tenderness present Abdomen is obese with no demonstrable hernias. He has right-sided abdominal pain that appears to be most prominent in the upper right lower quadrant at about the level of the umbilicus. He does have upper abdominal/right-sided tenderness is well. No HSM, rebound, rigidity, guarding, masses or bruits are present. Rectal exam is deferred Skin has good turgor and is free of rashes Extremities free of cyanosis clubbing edema Results Results Labs: Short CBC 03/27/22 Range/Units 17:00 WBC 11.9 H (4.8-10.8) X10*3/uL Hgb 14.2 (14.0-18.0) g/dl Hct 43.0 (42.0-52.0) % Plt Count 138 L (160-400) X10*3/uL BMP 03/27/22 17:00 Sodium 140 Potassium 4.0 Chloride 99 Carbon Dioxide 28 BUN 13 Creatinine 1.06 Calcium 8.9 Liver Function 03/27/22 Range/Units 17:00 Total Bilirubin 0.7 (0.0-1.0) mg/dL Direct Bilirubin 0.3 (0.0-0.5) mg/dL AST 18 (5-37) U/L ALT 20 (0-40) U/L Alkaline Phosphatase 82 (39-117) U/L Albumin 4.4 (3.5-5.0) g/dL Abdomen CT scan report/results: report reviewed and image reviewed CT scan - pelvis: report reviewed and image reviewed Assessment and Plan (1) Acute appendicitis: Qualifiers: Appendicitis abscess presence: without abscess Appendicitis gangrene presence: without gangrene Appendicitis perforation presence: without perforation Status: Acute (2) Morbid obesity: Status: Acute (3) Obesity (BMI 30-39.9): Status: Acute (4) Dyslipidemia: Status: Acute (5) HTN (hypertension): Qualifiers: Hypertension type: essential hypertension Qualified Code(s): I10 - Essential (primary) hypertension Status: Acute (6) Diabetic nephropathy associated with type 2 diabetes mellitus: Status: Acute Plan Admit, NPO, IVF, SCDs, Void bladder on-call, SQ heparin Zosyn I have recommended proceeding with a laparoscopic, possible open appendectomy in reviewed the inherent risks of bleeding, infection, need for another procedure if his mucinous appendiceal lesion identified on CT turns out to be a malignancy. I also explained the possible need for open surgery and subsequent later procedures if complications such as bleeding or infection occurs. The option of medical management with antibiotics was also reviewed but declined by the patient. He seemed understand all of his options and wanted to proceed. His questions seemed to be satisfactorily answered. Quality Stroke Does the patient have a stroke diagnosis?: No VTE Prior VTE?: No VTE Risk Level:: Surgical - high VTE Device Contraindication: N/A - Device Ordered VTE Drug Contraindication: N/A - Med Ordered Procedures Date of Service Date of Service: 03/28/22
[2022-03-27] MEDS: Heparin Sodium,Porcine 5,000 UNIT/ML VIAL 5000 UNIT SUBCUT (21:47)
[2022-03-27] MEDS: 0.9 % Sodium Chloride 1,000 ML 999 ML IV (21:47)
[2022-03-27] MEDS: HYDROmorphone HCl 0.5 MG/0.5 ML SYRINGE IVPUSH (21:47)
[2022-03-27] MEDS: ondansetron HCL 4 MG/2 ML VIAL IVPUSH (21:47)
[2022-03-27] MEDS: Piperacillin Sodium/Tazobactam 4.5 GM in 0.9 % Sodium Chloride 100 ML IV (21:48)
[2022-03-27 23:33] VITALS: BP 110/51; PULSE 102; RESP 16; TEMP 38; O2SAT 95
--- NOTE | 2022-03-27 23:41 | PC.NURSE ---
I assumed nursing care of Titus at 1900. He is admitted to the hospital due to appendicitis and verbalized an understanding of this. Titus is alert, oriented x 3, complains of diffuse abdominal pain (05/24 prior to receiving IV dilaudid.) At this time he is sleeping in stretcher, appears less uncomfortable. He is aware that he is to be admitted and verbalizes an understanding of this. Nursing repot given to inpatient unit.
[2022-03-28] VITALS (16 sets, daily range): BP systolic 113–143; BP diastolic 59–90; PULSE 79–97; RESP 16–20; TEMP 36.2–37.4; O2SAT 92–99
[2022-03-28] MEDS: carvediloL 12.5 MG TABLET PO ×3 (00:24→19:55)
[2022-03-28] MEDS: HYDROmorphone HCl 0.5 MG/0.5 ML SYRINGE IVPUSH ×6 (00:25→21:01)
[2022-03-28] MEDS: 0.9 % Sodium Chloride Flush 3 ML SYRINGE IVFLUSH ×3 (00:37→21:01)
[2022-03-28] MEDS: KCl 20 mEq in 5% Dex/0.45% Sod 20 MEQ/1,000 ML IV.SOLN 125 MEQ IVCONT ×2 (01:00→15:56)
[2022-03-28] MEDS: Piperacillin Sodium/Tazobactam 3.375 GM in 0.9 % Sodium Chloride 50 ML IV ×4 (04:13→21:01)
[2022-03-28 05:33] LABS: MANUAL DIFF FLAG NO
[2022-03-28 05:36] LABS: Basophils Percent Auto 0.3 % (0-2); Hematocrit 40.3 % (42.0-52.0); Imm Gran Abs Auto 0.08 X10*3/uL (0.00-0.03); Imm Gran Pct Auto 0.7 % (0.0-0.4); Lymphocytes Absolute Auto 1.1 X10*3/uL (1.2-4.9); Lymphocytes Percent Auto 9.4 % (20-40); Mean Corpuscular HGB Conc 32.3 g/dl (31.0-36.0); Mean Corpuscular Volume 86.9 fL (80.0-98.0); Mean Platelet Volume 10.1 fL (9.4-12.4); Monocytes Absolute Auto 0.8 X10*3/uL (0.1-1.2); Neutrophils Absolute Auto 9.4 x10*3/uL (2.0-8.3); Neutrophils Percent Auto 82.6 % (45-73); Platelet Count 122 X10*3/uL (160-400); Red Blood Count 4.64 X10*6/uL (4.60-5.80); Red Cell Distribution Width 13.8 % (11.0-16.0); White Blood Count 11.4 X10*3/uL (4.8-10.8)
[2022-03-28 05:59] LABS: Anion Gap 14 (12-20); Blood Urea Nitrogen 12 mg/dL (9-16); Calcium 8.1 mg/dL (8.4-10.2); Carbon Dioxide 29 mmol/L (22-29); Chloride 103 mmol/L (96-108); Estimated Glomerular Filt Rate > 60; Glucose Random 148 mg/dL (60-115); Potassium 3.9 mmol/L (3.3-5.1); Sodium 142 mmol/L (135-145)
[2022-03-28] MEDS: Losartan Potassium 50 MG TABLET PO (08:05)
[2022-03-28] MEDS: busPIRone HCl 5 MG TABLET PO (08:05)
[2022-03-28] MEDS: Sertraline HCL 50 MG TABLET 150 MG PO (08:06)
[2022-03-28] MEDS: Heparin Sodium,Porcine 5,000 UNIT/ML VIAL 5000 UNIT SUBCUT (08:07)
--- NOTE | 2022-03-28 08:40 | MHC.CM.PN ---
Addendum entered by Marisela Samaniego 03/28/22 15:26: HCP completed, original and two copies given to patient, copy uploaded to [facility], and copy filed in chart. Addendum entered by Marisela Samaniego 03/28/22 11:12: Per patient's S.O., Anitha, patient is with the Adult Foster Care program through [facility] and she is named as the Caregiver. Patient is somewhat independent at home and community, he is able to navigate those environments with his cane and walker when needed. Original Note: GAFFNEY addressed, yellow copy to patient and white filed in chart. PATIENT REPORTS HE LIVES WITH HIS SIGNIFICANT OTHER, Anitha. HE IS INDEPENDENT AT HOME AND COMMUNITY; HOWEVER, ANITHA PROVIDES HIM ASSISTANCE AT HOME. HE HAS WALKER, CANE, CPAP AND DM EQUIPMENT. HE IS COVID VAX'D X3 ([facility]), PCP: VALDEMAR OLVERA ([facility]). HCP TO BE COMPLETED, ANITHA WILL TRANSPORT HOME. D/C PLAN: HOME [employer]
--- NOTE | 2022-03-28 09:23 | P.OP_ITS ---
Operative Note Operative Note Date of Service: 03/28/22 Narrative: Preop diagnosis: [Appendicitis, possible mucocele of the appendix] Postop diagnosis: [Perforated, necrotic appendicitis, free fluid in the abdomen with right pericolic abscess, path Pending] Procedure: [Laparoscopic appendectomy with drain placement in the right pericolic gutter] Surgeon: Luke Alfonso MD Assist: [None] Anesthesia: [General endotracheal] Estimated blood loss: [5cc] Drain: MARY in right pericolic gutter Specimen: [1) abscess fluid peritoneal cavity; 2) necrotic appendix] Intraoperative findings: [The appendix was perforated near the base leaving approximately 1cm of appendiceal stump; the appendix proper was gangrenous and friable in the pericolic gutter with no discernible tissue plane. The gallbladder appeared [place] egg blue with no inflammatory changes nor adhesions.] Indications: [The patient is a 56-year-old gentleman with a history of obesity, diabetes, hypertension who presented with abdominal pain involving the right side of his abdomen. He had a leukocytosis and a CT that demonstrated what was interpreted as a possible mucocele and the options of medical management verses operative intervention was discussed with the patient along with the inherent risks of bleeding, infection, need for another procedure in the event of a complication or unexpected pathology and the possible need for open surgery was discussed. 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 An appropriate time-out was performed. 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 Sequential compression stockings were placed. The patient was induced in general endotracheal anesthesia administered with excellent effect. The abdomen was widely prepped and draped in the usual manner for surgery. Preemptive local was used at all trocar insertion sites. The abdomen was accessed using a Veress needle. Stab incision was made, Veress needle inserted without incident, an appropriate drop test performed and a pneumoperitoneum of 15 mmHg was obtained using carbon dioxide. Opening pressures were 4 mmHg. Next, the abdomen was accessed with a 30 degree/5 mm laparoscoped over Optiview trocar technique without incident. In examining the Veress needle, no evidence of injury was present. The remaining trocars were placed under direct laparoscopic vision with preemptive analgesia. The patient was then positioned in Trendelenburg, banked left. The abdomen was explored and the gallbladder noted to be free of disease, grossly. The patient had a prior mesh hernia repair and care was taken to place a 5 mm suprapubic trocar and a 12 mm left lower quadrant trocar under direct laparoscopic vision with preemptive local. The appendix could not be readily identified secondary to perforation and peritoneal fluid. After careful dissection through the friable, inflamed fat, the appendiceal stump was identified and divided using an Endo-NAVEEN 30 purple load and the abscess drained and cultures sent intraoperatively. Careful dissection demonstrated a thrombosed mesoappendix and careful dissection to remove the remaining appendix in the pericolic gutter and inflamed phlegmon up to the tip was performed. The portions of the appendix including the tip replaced in an Endo-Catch bag and delivered through the 12 mm port in the left lower quadrant. Operative field was copiously irrigated and inspected for hemostasis which was good. The staple line was intact and a 5 mm trocar placed through preemptive local in the patient's right lower quadrant to place a drain in the pericolic gutter and immediately over the abscess cavity. The drain was secured with 2 0 silk suture. Patient was returned to neutral position, the abdomen deflated and the trocars removed. 12 mm fascia was closed with 0- Polysorb and skin closed with 4-0 Monocryl subcuticular sutures. The abdomen was washed and dried, Mastisol and Steri-Strips applied followed by Band-Aids. Patient tolerated the procedure well and was sent to the recovery in stable condition. All sponge instrument counts were correct x2. The patient will be continued on IV antibiotics and turned into a regular, inpatient admission. Trend labs
--- NOTE | 2022-03-28 09:26 | P.CONAN_ITS ---
[facility] Active Problems Active Problems: All Active Problems (Updated 03/27/22 @ 20:19 by Shawn Brito MD) Acute appendicitis (Acute) Varicose veins of right lower extremity with inflammation (Acute) Morbid obesity (Acute) Umbilical hernia (Acute) Obesity (BMI 30-39.9) (Acute) Dyslipidemia (Acute) HTN (hypertension) (Acute) Diabetic nephropathy associated with type 2 diabetes mellitus (Acute) Epidermal cyst (Acute) Diabetes type 2, controlled (Acute) Past Medical History Medical History Ambulates with cane Back pain due to injury Diabetes type 2, controlled Diabetic nephropathy associated with type 2 diabetes mellitus Dyslipidemia Epidermal cyst HTN (hypertension) Morbid obesity Obesity (BMI 30-39.9) Umbilical hernia Family History Family History Father Heart disease Diabetes Mother Diabetes Heart disease Family history of problems with anesthesia: No Surgical History Surgical History History of umbilical hernia repair (~01/08/22) Hx of removal of cyst History of Problems with Anesthesia: No Social History Social History Household Members: Significant Other Housing: House Are you a primary hemodialysis patient care specialist to a significant other at home: No Do you presently have visiting nurse or other home services: No Alcohol intake: current Alcohol intake frequency: holidays/special occasions only Patient Tobacco Use Status: Never used Tobacco Use of substances other than those prescribed or required for medical reasons: No Have you been hit, kicked, punched, or otherwise hurt by someone within the past year? If so, by whom?: No Do you feel safe in your current relationship?: Yes Is there a partner from a previous relationship who is making you feel unsafe now?: No Are you made to feel afraid or neglected: No Advance Directives: No Advance Directives Information Provided: No Do you have thoughts of harming others: None Do you have a plan to hurt others: No Plan Recently lost weight without trying: No Eating poorly because of decreased appetite: No Nutrition Risks: No Nutritional Risk Poor oral hygiene: No service: No Current occupational status: disabled Meds Allergies Allergy/AdvReac Type Severity Reaction Status Date / Time lisinopril [LISINOPRIL] Allergy Mild RASH Verified 01/20/22 10:42 Active Medications: Current Medications Buspirone HCl (Buspirone Hcl 5 Mg Tablet) 5 mg PO DAILY REPLACED BY [facility] Last Admin: 03/28/22 08:05 Dose: 5 mg Carvedilol (Carvedilol 12.5 Mg Tablet) 12.5 mg PO BID REPLACED BY [facility]; Protocol Last Admin: 03/28/22 08:05 Dose: 12.5 mg Hydromorphone HCl (Hydromorphone Hcl 0.5 Mg/0.5 Ml Syringe) 0.5 mg IVPUSH Q4H REPLACED BY [facility]; Protocol Last Admin: 03/28/22 08:06 Dose: 0.5 mg Potassium Chloride/Dextrose/Sod Cl () 20 meq in 1,000 mls @ 125 mls/hr IVCONT .Q8H REPLACED BY [facility] Last Admin: 03/28/22 05:18 Dose: Not Given Piperacillin Sod/Tazobactam (Sod 3.375 gm/ Sodium Chloride) 50 mls @ 100 mls/hr IV Q6H REPLACED BY [facility] Last Infusion: 03/28/22 09:21 Dose: Infused Losartan Potassium (Losartan Potassium 50 Mg Tablet) 50 mg PO DAILY REPLACED BY [facility]; Protocol Last Admin: 03/28/22 08:05 Dose: 50 mg Ondansetron HCl (Ondansetron Hcl 4 Mg/2 Ml Vial) 4 mg IVPUSH Q8H PRN PRN Reason: Nausea and Vomiting Pharmacy Consult (Consult Rx Perform Med Rec) 1 each MISCELLANE ONCE PRN PRN Reason: Consult order Sertraline HCl (Sertraline Hcl 50 Mg Tablet) 150 mg PO DAILY REPLACED BY [facility] Last Admin: 03/28/22 08:06 Dose: 150 mg Sodium Chloride (0.9 % Sodium Chloride Flush 3 Ml Syringe) 3 ml IVFLUSH QSHIFT REPLACED BY [facility] Last Admin: 03/28/22 08:08 Dose: 3 ml Topiramate (Topiramate 25 Mg Tablet) 50 mg PO BID PRN PRN Reason: Tremor(S) Home Medications Medication Instructions Recorded Confirmed Last Taken Type atorvastatin 10 mg tablet 10 mg PO BEDTIME 10/22/20 03/27/22 03/26/22 History carvedilol 12.5 mg tablet 12.5 mg PO Q12H 10/22/20 03/27/2203/26/22 History cholecalciferol (vitamin D3) 25 25 mcg PO DAILY 10/22/20 03/27/22 03/26/22 History mcg (1,000 unit) capsule losartan 50 mg tablet 50 mg PO DAILY 11/04/20 03/27/22 03/26/22 History trazodone 150 mg tablet 150 mg PO BEDTIME 11/04/20 03/27/22 03/26/22 History hydrochlorothiazide 25 mg tablet 25 mg PO DAILY 11/19/20 03/27/22 03/26/22 History buspirone 5 mg tablet 1 tab PO DAILY 01/04/22 03/27/22 03/26/22 History sertraline 100 mg tablet 1.5 tab PO DAILY 01/04/22 03/27/22 03/26/22 History dulaglutide 3 mg/0.5 mL 3 mg subcut FR@0900 03/27/22 03/27/22 03/26/22 History subcutaneous pen injector (Trulicity) topiramate 50 mg tablet (Topamax) 50 mg PO BID PRN Tremor(S) 03/27/22 03/27/22 Unknown History zolpidem 10 mg tablet 10 mg PO BEDTIME PRN Sleep 03/27/22 03/27/22 Unknown History Exam Exam Date and Time: March 28, 2022 0926 Height,Weight and Vital Signs: Height 5 ft 10 in Weight 117.934 kg Last Vital Signs Temp 97.1 F 03/28/22 07:27 Pulse 89 03/28/22 07:27 Resp 16 03/28/22 07:27 BP 116/59 L 03/28/22 07:27 Pulse Ox 95 03/28/22 07:27 O2 Del Method 03/28/22 07:27 Pertinent Lab Results Pertinent Lab Results: Laboratory Tests 03/27/22 03/27/22 03/27/22 17:00 17:00 17:00 WBC 11.9 H RBC 4.98 Hgb 14.2 Hct 43.0 MCV 86.3 MCH 28.5 MCHC 33.0 RDW 13.5 Plt Count 138 L MPV 10.1 Immature Gran % (Auto) 0.4 Neut % (Auto) 88.6 H Lymph % (Auto) 6.1 L [place] % (Auto) 4.7 Eos % (Auto) 0.0 Baso % (Auto) 0.2 Lymph # (Auto) 0.7 L [place] # (Auto) 0.6 Eos # (Auto) 0.0 Baso # (Auto) 0.0 Abs Immat Gran (auto) 0.05 H Absolute Neuts (auto) 10.5 H Absolute Nucleated RBC 0.000 Nucleated RBC % (auto) 0.0 Sodium 140 Potassium 4.0 Chloride 99 Carbon Dioxide 28 Anion Gap 17 BUN 13 Creatinine 1.06 Estim Creat Clear Calc 100.1 Estimated GFR > 60 Random Glucose 136 H Lactic Acid 2.2 H* Lactic Acid F/U @ 2Hr Calcium 8.9 Total Bilirubin 0.7 Direct Bilirubin 0.3 AST 18 ALT 20 Alkaline Phosphatase 82 Total Protein 7.3 Albumin 4.4 Lipase 69 COVID-19 ([facility]ORY) COVID-19 Clin Com 03/27/22 03/27/22 03/28/22 17:01 20:48 05:20 WBC 11.4 H RBC 4.64 Hgb 13.0 L Hct 40.3 L MCV 86.9 MCH 28.0 MCHC 32.3 RDW 13.8 Plt Count 122 L MPV 10.1 Immature Gran % (Auto) 0.7 H Neut % (Auto) 82.6 H Lymph % (Auto) 9.4 L [place] % (Auto) 7.0 Eos % (Auto) 0.0 Baso % (Auto) 0.3 Lymph # (Auto) 1.1 L [place] # (Auto) 0.8 Eos # (Auto) 0.0 Baso # (Auto) 0.0 Abs Immat Gran (auto) 0.08 H Absolute Neuts (auto) 9.4 H Absolute Nucleated RBC 0.000 Nucleated RBC % (auto) 0.0 Sodium Potassium Chloride Carbon Dioxide Anion Gap BUN Creatinine Estim Creat Clear Calc Estimated GFR Random Glucose Lactic Acid Lactic Acid F/U @ 2Hr 2.0 Calcium Total Bilirubin Direct Bilirubin AST ALT Alkaline Phosphatase Total Protein Albumin Lipase COVID-19 ([facility]ORY) Negative COVID-19 Clin Com See Note 03/28/22 05:20 WBC RBC Hgb Hct MCV MCH MCHC RDW Plt Count MPV Immature Gran % (Auto) Neut % (Auto) Lymph % (Auto) [place] % (Auto) Eos % (Auto) Baso % (Auto) Lymph # (Auto) [place] # (Auto) Eos # (Auto) Baso # (Auto) Abs Immat Gran (auto) Absolute Neuts (auto) Absolute Nucleated RBC Nucleated RBC % (auto) Sodium 142 Potassium 3.9 Chloride 103 Carbon Dioxide 29 Anion Gap 14 BUN 12 Creatinine 1.02 Estim Creat Clear Calc 104.0 Estimated GFR > 60 Random Glucose 148 H Lactic Acid Lactic Acid F/U @ 2Hr Calcium 8.1 L D Total Bilirubin Direct Bilirubin AST ALT Alkaline Phosphatase Total Protein Albumin Lipase COVID-19 ([facility]ORY) COVID-19 Clin Com Airway Mallampati Class: III TM Dist: >3cm Neck ROM: Full Assessment and Plan Assessment Anesthesia Assessment: Anesthesia Plan Discussed and Chart Reviewed Final Anesthetic Review Family History of Problems with Anesthesia: No History of Problems with Anesthesia: No NPO: Yes ASA Class: III and Emergency Final Preanesthetic Review: No Changes in Pt Med Stat, Meds/Allgs Chart Reviewed, Consent Obtained/Reviewed and Anes Risks/Benef Reviewed Patient Risk: Intermediate Procedure Risk: Intermediate Anesthetic Plan Anesthetic Plan: GA Disposition: Standard PACU
[2022-03-28] MEDS: fentaNYL citrate/PF 100 MCG/2 ML VIAL 50 MCG IVPUSH (11:56)
[2022-03-28] MEDS: Docusate Sodium 100 MG CAPSULE 200 MG PO (19:55)
[2022-03-28] MEDS: Acetaminophen 325 MG TABLET 975 MG PO (21:01)
[2022-03-28] MEDS: traZODone HCL 100 MG TABLET PO (21:33)
[2022-03-28 22:08] LABS: Glucose, Whole Blood 161 mg/dL (60-115)
[2022-03-29] VITALS (7 sets, daily range): BP systolic 94–140; BP diastolic 53–75; PULSE 60–86; RESP 16–18; TEMP 36.1–36.7; O2SAT 92–97
[2022-03-29] MEDS: HYDROmorphone HCl 0.5 MG/0.5 ML SYRINGE IVPUSH ×6 (01:25→21:25)
[2022-03-29] MEDS: KCl 20 mEq in 5% Dex/0.45% Sod 20 MEQ/1,000 ML IV.SOLN 125 MEQ IVCONT ×3 (01:26→18:16)
[2022-03-29] MEDS: Piperacillin Sodium/Tazobactam 3.375 GM in 0.9 % Sodium Chloride 50 ML IV ×4 (04:40→21:25)
[2022-03-29 05:43] LABS: MANUAL DIFF FLAG NO
[2022-03-29 05:50] LABS: Basophils Percent Auto 0.2 % (0-2); Eosinophils Percent Auto 0.1 % (0-4); Monocytes Absolute Auto 0.7 X10*3/uL (0.1-1.2); Monocytes Percent Auto 7.3 % (2-11); PLT CLUMP 1; SCAN SMEAR FLAG 1
[2022-03-29 05:52] LABS: Hematocrit 39.3 % (42.0-52.0); Hemoglobin 12.2 g/dl (14.0-18.0); Lymphocytes Absolute Auto 1.1 X10*3/uL (1.2-4.9); Lymphocytes Percent Auto 10.7 % (20-40); Mean Corpuscular Hemoglobin 28.2 pg (27.0-33.0); Mean Platelet Volume 10.4 fL (9.4-12.4); Neutrophils Absolute Auto 8.2 x10*3/uL (2.0-8.3); Neutrophils Percent Auto 80.7 % (45-73); Red Blood Count 4.32 X10*6/uL (4.60-5.80); Red Cell Distribution Width 13.9 % (11.0-16.0)
[2022-03-29 05:58] LABS: Platelet Count 128 X10*3/uL (160-400); White Blood Count 10.1 X10*3/uL (4.8-10.8)
[2022-03-29 07:19] LABS: Glucose, Whole Blood 129 mg/dL (60-115)
[2022-03-29] MEDS: 0.9 % Sodium Chloride Flush 3 ML SYRINGE IVFLUSH ×3 (07:55→16:28)
[2022-03-29] MEDS: Docusate Sodium 100 MG CAPSULE 200 MG PO ×2 (07:56→21:24)
[2022-03-29] MEDS: carvediloL 12.5 MG TABLET PO ×2 (07:57→21:25)
[2022-03-29] MEDS: Sertraline HCL 50 MG TABLET 150 MG PO (07:57)
[2022-03-29] MEDS: Losartan Potassium 50 MG TABLET PO (07:57)
[2022-03-29] MEDS: busPIRone HCl 5 MG TABLET PO (07:58)
--- NOTE | 2022-03-29 08:10 | PM.PNGS ---
Subjective Subjective Date of Service: 03/29/22 Patient reports: feels better Interval history: The patient reports that he is comfortable no pain. He denies any flatus, chest pain, difficulty breathing or shortness of breath. There is no nausea or vomiting and he is tolerating his clear liquid. The patient asked that I contact his daughter Shania at [phone] to apprise her of his ruptured appendix and plan to identify the bacteria and choose appropriate antibiotics and that this will take a couple days or longer. Physical Exam Vital Signs: Vital Signs: Last Vital Signs Temp 97.9 F 03/29/22 07:29 Pulse 62 03/29/22 07:29 Resp 17 03/29/22 07:29 BP 113/58 L 03/29/22 07:29 Pulse Ox 95 03/29/22 07:29 O2 Del Method 03/29/22 07:29 O2 Flow Rate 2.0 03/28/22 15:10 BMI result Body Mass Index 37.3 On exam, he is nontoxic Mood and affect appear appropriate Sclera are anicteric Cranial nerves 2-12 were intact Abdomen is obese with appropriate incisional tenderness MARY has serosanguineous/turbid thick but non feculent and non purulence drainage Objective Data Active Medications Acetaminophen (Acetaminophen 325 Mg Tablet) 975 mg PO Q6H PRN PRN Reason: Pain, Mild (Pain Scale 1-3) Last Admin: 03/28/22 21:01 Dose: 975 mg Documented By: SERA Buspirone HCl (Buspirone Hcl 5 Mg Tablet) 5 mg PO DAILY [facility] Last Admin: 03/29/22 07:58 Dose: 5 mg Documented By: PANCHO Carvedilol (Carvedilol 12.5 Mg Tablet) 12.5 mg PO BID [facility]; Protocol Last Admin: 03/29/22 07:57 Dose: 12.5 mg Documented By: PANCHO Docusate Sodium (Docusate Sodium 100 Mg Capsule) 200 mg PO BID [facility] Last Admin: 03/29/22 07:56 Dose: 200 mg Documented By: PANCHO Fentanyl (Fentanyl Citrate/Pf 100 Mcg/2 Ml Vial) 50 mcg IVPUSH Q5M PRN; Protocol PRN Reason: Pain, Severe (Pain Scale 7-10) Last Admin: 03/28/22 11:56 Dose: 50 mcg Documented By: SADIQ Hydromorphone HCl (Hydromorphone Hcl 0.5 Mg/0.5 Ml Syringe) 0.5 mg IVPUSH Q4H [facility]; Protocol Last Admin: 03/29/22 08:02 Dose: 0.5 mg Documented By: PANCHO Potassium Chloride/Dextrose/Sod Cl () 20 meq in 1,000 mls @ 125 mls/hr IVCONT .Q8H [facility] Last Infusion: 03/29/22 05:15 Dose: 125 mls/hr Documented By: SERA Piperacillin Sod/Tazobactam (Sod 3.375 gm/ Sodium Chloride) 50 mls @ 100 mls/hr IV Q6H [facility] Last Infusion: 03/29/22 05:15 Dose: 0 mls/hr Documented By: SERA Losartan Potassium (Losartan Potassium 50 Mg Tablet) 50 mg PO DAILY [facility]; Protocol Last Admin: 03/29/22 07:57 Dose: 50 mg Documented By: PANCHO Ondansetron HCl (Ondansetron Hcl 4 Mg/2 Ml Vial) 4 mg IVPUSH Q8H PRN PRN Reason: Nausea and Vomiting Ondansetron HCl (Ondansetron Hcl 4 Mg/2 Ml Vial) 4 mg IVPUSH ONCE PRN PRN Reason: Nausea and Vomiting Pharmacy Consult (Consult Rx Perform Med Rec) 1 each MISCELLANE ONCE PRN PRN Reason: Consult order Sertraline HCl (Sertraline Hcl 50 Mg Tablet) 150 mg PO DAILY [facility] Last Admin: 03/29/22 07:57 Dose: 150 mg Documented By: PANCHO Sodium Chloride (0.9 % Sodium Chloride Flush 3 Ml Syringe) 3 ml [facility]FLUSH [facility] Last Admin: 03/29/22 07:55 Dose: 3 ml Documented By: PANCHO Sodium Chloride (0.9 % Sodium Chloride Flush 3 Ml Syringe) 3 ml IVFLUSH [facility] Last Admin: 03/29/22 08:06 Dose: Not Given Documented By: PANCHO Non-Admin Reason: duplicate order Topiramate (Topiramate 25 Mg Tablet) 50 mg PO BID PRN PRN Reason: Tremor(S) Trazodone HCl (Trazodone Hcl 100 Mg Tablet) 100 mg PO BEDTIME [facility] Last Admin: 03/28/22 21:33 Dose: 100 mg Documented By: RALEIGHQC Labs CBC & Chem 7: 03/29/22 05:18 03/28/22 05:20 Labs: Laboratory Results - last 24 hr 03/28/22 03/29/22 03/29/22 21:53 05:18 07:08 MCV 91.0 MCH 28.2 MCHC 31.0 RDW 13.9 Plt Count 128 L MPV 10.4 Immature Gran % (Auto) 1.0 H Neut % (Auto) 80.7 H Lymph % (Auto) 10.7 L [place] % (Auto) 7.3 Eos % (Auto) 0.1 Baso % (Auto) 0.2 Lymph # (Auto) 1.1 L [place] # (Auto) 0.7 Eos # (Auto) 0.0 Baso # (Auto) 0.0 Abs Immat Gran (auto) 0.10 H Absolute Neuts (auto) 8.2 Absolute Nucleated RBC 0.000 Nucleated RBC % (auto) 0.0 POC Glucose 161 H 129 H Microbiology Microbiology Results: Microbiology 03/27/22 20:48 Blood Culture - Preliminary Blood - Venous No growth after 24 hours. 03/27/22 17:00 Blood Culture - Preliminary Blood - Venous Prelim: GPC Gram Stain only 03/28/22 Unknown Gram Stain - Final Peritoneal Fluid Procedures Date of Service Date of Service: 03/29/22 Progress Note: A&P Assessment and plan (1) Acute appendicitis: Status: Acute (2) Obesity (BMI 30-39.9): Status: Acute (3) Dyslipidemia: Status: Acute (4) HTN (hypertension): Status: Acute (5) Diabetic nephropathy associated with type 2 diabetes mellitus: Status: Acute (6) Diabetes type 2, controlled: Status: Acute Plan Postop day 1 Await identification and sensitivities of the patient's appendiceal abscess cultures. Await pathology. Clinically, there was no evidence of a mucocele but rather of perforated appendix with abscess. Encourage out of bed ambulation and incentive spirometry Keep on clear liquids for now Trend labs I called the patient's daughter as requested and there was no answer. I left a message explaining the plan at this point and will try to call her later today. Time Spent With Patient Time: Total time spent is greater than 50% in coordination of care (as documented) at patient's floor/unit and/or counseling patient: Quality Stroke Does the patient have a stroke diagnosis?: No VTE Prior VTE?: No VTE Risk Level:: Surgical - high VTE Device Contraindication: N/A - Device Ordered VTE Drug Contraindication: N/A - Med Ordered
--- NOTE | 2022-03-29 08:13 | HO.POSTANES ---
Post Anesthesia Evaluation Post Anesthesia Evaluation Vital Signs: Vital Signs Temp Pulse Resp BP Pulse Ox O2 Del Method 03/29/22 07:29 97.9 F 62 17 113/58 L 95 Room Air 03/29/22 03:14 97.4 F 86 18 117/75 92 Room Air 03/28/22 23:24 97.6 F 94 17 122/59 L 92 Room Air 03/28/22 22:13 99.1 F 03/28/22 20:22 99.3 F Anesthesia: General Endotracheal-GETA Mental Status: Awake Pain Control: Satisfactory Nausea/Vomiting: None Hydration: Adequate Anesthesia-Related Issues: No Anes. Related Issues
[2022-03-29] MEDS: oxyCODONE HCl Immed Release 5 MG TABLET PO (10:40)
[2022-03-29] MEDS: Acetaminophen 325 MG TABLET 975 MG PO (10:40)
[2022-03-29 12:42] LABS: Glucose, Whole Blood 104 mg/dL (60-115)
[2022-03-29] MEDS: Heparin Sodium,Porcine 5,000 UNIT/ML VIAL 5000 UNIT SUBCUT (13:18)
--- NOTE | 2022-03-29 14:29 | W.PM.IDCN ---
History of Present Illness Data of Consult Service Date: 03/29/22 Requesting physician: Luke Alfonso Primary Care Provider: Unknown Physician HPI Reason for consult: bacteremia,appendix perforation He presents with abdominal pain , 02/21 to ER as well as anorexia. He had hernia repair two months ago. He has no fever or chills/ PMFSH Past Medical History Medical History Ambulates with cane Back pain due to injury Diabetes type 2, controlled Diabetic nephropathy associated with type 2 diabetes mellitus Dyslipidemia Epidermal cyst HTN (hypertension) Morbid obesity Obesity (BMI 30-39.9) Umbilical hernia Family History Family History Father Heart disease Diabetes Mother Diabetes Heart disease Family history: reviewed and not pertinent Surgical History Surgical History History of umbilical hernia repair (~01/08/22) Hx of removal of cyst Social History Social History Household Members: Significant Other Housing: House Are you a primary health care technician to a significant other at home: No Do you presently have visiting nurse or other home services: No Alcohol intake: current Alcohol intake frequency: holidays/special occasions only Patient Tobacco Use Status: Never used Tobacco Use of substances other than those prescribed or required for medical reasons: No Currently Displaying Signs/Symptoms of Drug Intoxication Withdrawal: No Have you been hit, kicked, punched, or otherwise hurt by someone within the past year? If so, by whom?: No Do you feel safe in your current relationship?: Yes Is there a partner from a previous relationship who is making you feel unsafe now?: No Are you made to feel afraid or neglected: No Advance Directives: No Advance Directives Information Provided: No Do you have thoughts of harming others: None Do you have a plan to hurt others: No Plan Recently lost weight without trying: No Eating poorly because of decreased appetite: No Nutrition Risks: No Nutritional Risk Poor oral hygiene: No service: No Current occupational status: disabled Meds Allergies Allergy/AdvReac Type Severity Reaction Status Date / Time lisinopril [LISINOPRIL] Allergy Mild RASH Verified 01/20/22 10:42 Active Medications: Current Medications Acetaminophen (Acetaminophen 325 Mg Tablet) 975 mg PO Q6H PRN PRN Reason: Pain, Mild (Pain Scale 1-3) Last Admin: 03/29/22 10:40 Dose: 975 mg Buspirone HCl (Buspirone Hcl 5 Mg Tablet) 5 mg PO DAILY [facility] [place] Last Admin: 03/29/22 07:58 Dose: 5 mg Carvedilol (Carvedilol 12.5 Mg Tablet) 12.5 mg PO BID [facility] [place]; Protocol Last Admin: 03/29/22 07:57 Dose: 12.5 mg Docusate Sodium (Docusate Sodium 100 Mg Capsule) 200 mg PO BID [facility] [place] Last Admin: 03/29/22 07:56 Dose: 200 mg Fentanyl (Fentanyl Citrate/Pf 100 Mcg/2 Ml Vial) 50 mcg IVPUSH Q5M PRN; Protocol PRN Reason: Pain, Severe (Pain Scale 7-10) Last Admin: 03/28/22 11:56 Dose: 50 mcg Heparin Sodium (Porcine) (Heparin Sodium,Porcine 5,000 Unit/Ml Vial) 5,000 unit SUBCUT Q12H [facility] [place] Last Admin: 03/29/22 13:18 Dose: 5,000 unit Hydromorphone HCl (Hydromorphone Hcl 0.5 Mg/0.5 Ml Syringe) 0.5 mg IVPUSH Q4H [facility] [place]; Protocol Last Admin: 03/29/22 13:19 Dose: 0.5 mg Potassium Chloride/Dextrose/Sod Cl () 20 meq in 1,000 mls @ 125 mls/hr IVCONT .Q8H [facility] [place] Last Admin: 03/29/22 10:42 Dose: 125 mls/hr Piperacillin Sod/Tazobactam (Sod 3.375 gm/ Sodium Chloride) 50 mls @ 100 mls/hr IV Q6H [facility] Last Infusion: 03/29/22 11:23 Dose: Infused Losartan Potassium (Losartan Potassium 50 Mg Tablet) 50 mg PO DAILY [facility] [place]; Protocol Last Admin: 03/29/22 07:57 Dose: 50 mg Ondansetron HCl (Ondansetron Hcl 4 Mg/2 Ml Vial) 4 mg IVPUSH Q8H PRN PRN Reason: Nausea and Vomiting Ondansetron HCl (Ondansetron Hcl 4 Mg/2 Ml Vial) 4 mg IVPUSH ONCE PRN PRN Reason: Nausea and Vomiting Oxycodone HCl (Oxycodone Hcl Immed Release 5 Mg Tablet) 5 mg PO Q4H PRN PRN Reason: Pain, Moderate (Pain Scale 4-6 Last Admin: 03/29/22 10:40 Dose: 5 mg Pharmacy Consult (Consult Rx Perform Med Rec) 1 each MISCELLANE ONCE PRN PRN Reason: Consult order Sertraline HCl (Sertraline Hcl 50 Mg Tablet) 150 mg PO DAILY [facility] [place] Last Admin: 03/29/22 07:57 Dose: 150 mg Sodium Chloride (0.9 % Sodium Chloride Flush 3 Ml Syringe) 3 ml IVFLUSH [facility] Last Admin: 03/29/22 07:55 Dose: 3 ml Sodium Chloride (0.9 % Sodium Chloride Flush 3 Ml Syringe) 3 ml IVFLUSH [facility] Last Admin: 03/29/22 08:06 Dose: Not Given Topiramate (Topiramate 25 Mg Tablet) 50 mg PO BID PRN PRN Reason: Tremor(S) Trazodone HCl (Trazodone Hcl 100 Mg Tablet) 100 mg PO BEDTIME [facility] [place] Last Admin: 03/28/22 21:33 Dose: 100 mg Home Medications Medication Instructions Recorded Confirmed Last Taken Type atorvastatin 10 mg tablet 10 mg PO BEDTIME 10/22/20 03/27/22 03/26/22 History carvedilol 12.5 mg tablet 12.5 mg PO Q12H 10/22/20 03/27/22 03/26/22 History cholecalciferol (vitamin D3) 25 25 mcg PO DAILY 10/22/20 03/27/22 03/26/22 History mcg (1,000 unit) capsule losartan 50 mg tablet 50 mg PO DAILY 11/04/20 03/27/22 03/26/22 History trazodone 150 mg tablet 150 mg PO BEDTIME 11/04/20 03/27/22 03/26/22 History hydrochlorothiazide 25 mg tablet 25 mg PO DAILY 11/19/20 03/27/22 03/26/22 History buspirone 5 mg tablet 1 tab PO DAILY 01/04/22 03/27/22 03/26/22 History sertraline 100 mg tablet 1.5 tab PO DAILY 01/04/22 03/27/22 03/26/22 History dulaglutide 3 mg/0.5 mL 3 mg subcut FR@0900 03/27/22 03/27/22 03/26/22 History subcutaneous pen injector (Trulicity) topiramate 50 mg tablet (Topamax) 50 mg PO BID PRN Tremor(S) 03/27/22 03/27/22 Unknown History zolpidem 10 mg tablet 10 mg PO BEDTIME PRN Sleep 03/27/22 03/27/22 Unknown History Physical Exam Vital Signs: Vital Signs: Last Vital Signs Temp 97.3 F 03/29/22 12:00 Pulse 73 03/29/22 12:00 Resp 18 03/29/22 12:00 BP 94/53 L 03/29/22 12:00 Pulse Ox 96 03/29/22 12:00 O2 Del Method 03/29/22 12:00 O2 Flow Rate 2.0 03/28/22 15:10 BMI result Body Mass Index 37.3 Const: General: cooperative HEENT: Head: Yes normal to inspection Face and sinus: Yes normal facial exam Mouth: Normal oral and palatal mucosa present Teeth and gingiva: dentition normal Eyes: General: appearance normal, both eyes and all related structures Pupils: Equal, round and reactive pupils present Resp: Effort & Inspection: normal respiratory effort Cardio: Rate: regular rate Rhythm: regular rhythm GI: Other: abdominal wound with drain : General: Yes no CVA tenderness Back/Spine/Pelvis: Back: no CVA tenderness Skin: General skin exam: no rashes or lesions noted Neuro: General: moves all extremities Cranial nerves: Yes Equal, round and reactive pupils present Extrem: General: Yes normal to inspection Psych: Appearance: grossly normal Results Labs CBC & Chem 7: 03/29/22 05:18 03/28/22 05:20 Labs: Short CBC 03/29/22 Range/Units 05:18 WBC 10.1 (4.8-10.8) X10*3/uL Hgb 12.2 L (14.0-18.0) g/dl Hct 39.3 L (42.0-52.0) % Plt Count 128 L (160-400) X10*3/uL Microbiology Microbiology Results: Microbiology 03/28/22 Unknown Peritoneal Fluid Gram Stain - Final 03/28/22 Unknown Peritoneal Fluid Routine Culture - Preliminary No growth to date. 03/28/22 Unknown Peritoneal Fluid Anaerobic Culture - Preliminary Culture in progress. 03/27/22 17:00 Blood - Venous Blood Culture - Final Coag negative Staphylococcus 03/27/22 20:48 Blood - Venous Blood Culture - Preliminary No growth after 24 hours. Assessment and Plan (1) Acute appendicitis: Qualifiers: Appendicitis abscess presence: without abscess Appendicitis gangrene presence: without gangrene Appendicitis perforation presence: without perforation Status: Acute He has perforated appendix. He has been on piperacillin/tazobactam. Coagulase negative staph bacteremia is contaminant. Plan continue piperacillin/tazobactam until improving then po Augmentin for a week no need treat coagulase negative staph bacteria.
[2022-03-29 18:16] LABS: Glucose, Whole Blood 114 mg/dL (60-115)
[2022-03-29 19:19] LABS: Glucose, Whole Blood 113 mg/dL (60-115)
[2022-03-29] MEDS: traZODone HCL 100 MG TABLET PO (21:25)
[2022-03-30] MEDS: HYDROmorphone HCl 0.5 MG/0.5 ML SYRINGE IVPUSH ×6 (01:09→20:34)
[2022-03-30] MEDS: Heparin Sodium,Porcine 5,000 UNIT/ML VIAL 5000 UNIT SUBCUT ×2 (01:10→13:46)
[2022-03-30] MEDS: KCl 20 mEq in 5% Dex/0.45% Sod 20 MEQ/1,000 ML IV.SOLN 125 MEQ IVCONT (02:43)
[2022-03-30 03:13] VITALS: BP 126/69; PULSE 61; RESP 14; TEMP 36.1; O2SAT 93
[2022-03-30] MEDS: Piperacillin Sodium/Tazobactam 3.375 GM in 0.9 % Sodium Chloride 50 ML IV ×4 (03:56→21:31)
[2022-03-30 05:53] LABS: Anion Gap 12 (12-20); Blood Urea Nitrogen 7 mg/dL (9-16); Calcium 7.4 mg/dL (8.4-10.2); Carbon Dioxide 31 mmol/L (22-29); Chloride 102 mmol/L (96-108); Creatinine Clr Calc Pharmacy 117.9; Estimated Glomerular Filt Rate > 60; Glucose Random 123 mg/dL (60-115); Potassium 4.4 mmol/L (3.3-5.1); Sodium 141 mmol/L (135-145)
[2022-03-30] MEDS: Acetaminophen 325 MG TABLET 975 MG PO (07:24)
[2022-03-30] MEDS: carvediloL 12.5 MG TABLET PO ×2 (07:25→20:34)
[2022-03-30] MEDS: Sertraline HCL 50 MG TABLET 150 MG PO (07:25)
[2022-03-30] MEDS: busPIRone HCl 5 MG TABLET PO (07:25)
[2022-03-30] MEDS: Docusate Sodium 100 MG CAPSULE 200 MG PO (07:25)
[2022-03-30] MEDS: Losartan Potassium 50 MG TABLET PO (07:25)
[2022-03-30] MEDS: 0.9 % Sodium Chloride Flush 3 ML SYRINGE IVFLUSH ×2 (07:26→17:37)
[2022-03-30 07:31] LABS: Glucose, Whole Blood 122 mg/dL (60-115)
[2022-03-30 07:39] VITALS: BP 131/70; PULSE 79; RESP 14; TEMP 36.8; O2SAT 93
[2022-03-30 11:16] LABS: Glucose, Whole Blood 145 mg/dL (60-115)
[2022-03-30 11:21] VITALS: BP 117/63; PULSE 70; RESP 17; TEMP 37.4; O2SAT 95
--- NOTE | 2022-03-30 12:22 | PM.PNGS ---
Subjective Subjective Date of Service: 03/30/22 Patient reports: feels better Interval history: The patient reports that he is passing gas and having bowel movements. He denies any chest pain or shortness of breath but reports expected abdominal pain when moving and walking. He otherwise has no new complaints Physical Exam Vital Signs: Vital Signs: Last Vital Signs Temp 99.3 F 03/30/22 11:21 Pulse 70 03/30/22 11:21 Resp 17 03/30/22 11:21 BP 117/63 03/30/22 11:21 Pulse Ox 95 03/30/22 11:21 O2 Del Method 03/30/22 11:21 O2 Flow Rate 2.0 03/28/22 15:10 BMI result Body Mass Index 37.3 The patient is nontoxic He is in good spirits Abdomen is obese and soft with appropriate incisional tenderness. Dressings are clean, dry and intact Serous MARY drainage is noted. There was no feculent so or purulence Objective Data Active Medications Acetaminophen (Acetaminophen 325 Mg Tablet) 975 mg PO Q6H PRN PRN Reason: Pain, Mild (Pain Scale 1-3) Last Admin: 03/30/22 07:24 Dose: 975 mg Documented By: DEON Buspirone HCl (Buspirone Hcl 5 Mg Tablet) 5 mg PO DAILY [facility] Last Admin: 03/30/22 07:25 Dose: 5 mg Documented By: DEON Carvedilol (Carvedilol 12.5 Mg Tablet) 12.5 mg PO BID [facility]; Protocol Last Admin: 03/30/22 07:25 Dose: 12.5 mg Documented By: DEON Docusate Sodium (Docusate Sodium 100 Mg Capsule) 200 mg PO BID [facility] Last Admin: 03/30/22 07:25 Dose: 200 mg Documented By: DEON Fentanyl (Fentanyl Citrate/Pf 100 Mcg/2 Ml Vial) 50 mcg IVPUSH Q5M PRN; Protocol PRN Reason: Pain, Severe (Pain Scale 7-10) Last Admin: 03/28/22 11:56 Dose: 50 mcg Documented By: SADIQ Heparin Sodium (Porcine) (Heparin Sodium,Porcine 5,000 Unit/Ml Vial) 5,000 unit SUBCUT Q12H [facility] Last Admin: 03/30/22 01:10 Dose: 5,000 unit Documented By: ABDOULAYE Hydromorphone HCl (Hydromorphone Hcl 0.5 Mg/0.5 Ml Syringe) 0.5 mg IVPUSH Q4H [facility]; Protocol Last Admin: 03/30/22 09:26 Dose: 0.5 mg Documented By: DEON Potassium Chloride/Dextrose/Sod Cl () 20 meq in 1,000 mls @ 125 mls/hr IVCONT .Q8H [facility] Last Infusion: 03/30/22 10:54 Dose: 0 mls/hr Documented By: PANCHO Piperacillin Sod/Tazobactam (Sod 3.375 gm/ Sodium Chloride) 50 mls @ 100 mls/hr IV Q6H [facility] Last Infusion: 03/30/22 10:33 Dose: 100 mls/hr Documented By: DEON Lactated Ringer's (Lr) 500 mls @ 80 mls/hr IV .Q6H15M [facility] Stop: 03/30/22 18:44 Losartan Potassium (Losartan Potassium 50 Mg Tablet) 50 mg PO DAILY [facility]; Protocol Last Admin: 03/30/22 07:25 Dose: 50 mg Documented By: DEON Ondansetron HCl (Ondansetron Hcl 4 Mg/2 Ml Vial) 4 mg IVPUSH Q8H PRN PRN Reason: Nausea and Vomiting Ondansetron HCl (Ondansetron Hcl 4 Mg/2 Ml Vial) 4 mg IVPUSH ONCE PRN PRN Reason: Nausea and Vomiting Oxycodone HCl (Oxycodone Hcl Immed Release 5 Mg Tablet) 5 mg PO Q4H PRN PRN Reason: Pain, Moderate (Pain Scale 4-6 Last Admin: 03/29/22 10:40 Dose: 5 mg Documented By: PANCHO Pharmacy Consult (Consult Rx Perform Med Rec) 1 each MISCELLANE ONCE PRN PRN Reason: Consult order Sertraline HCl (Sertraline Hcl 50 Mg Tablet) 150 mg PO DAILY [facility] Last Admin: 03/30/22 07:25 Dose: 150 mg Documented By: DEON Sodium Chloride (0.9 % Sodium Chloride Flush 3 Ml Syringe) 3 ml IVFLUSH QSHIFT [facility] Last Admin: 03/30/22 07:26 Dose: 3 ml Documented By: DEON Sodium Chloride (0.9 % Sodium Chloride Flush 3 Ml Syringe) 3 ml IVFLUSH QSHIFT [facility] Last Admin: 03/30/22 07:30 Dose: Not Given Documented By: DEON Non-Admin Reason: Previously Administered Topiramate (Topiramate 25 Mg Tablet) 50 mg PO BID PRN PRN Reason: Tremor(S) Trazodone HCl (Trazodone Hcl 100 Mg Tablet) 100 mg PO BEDTIME [facility] Last Admin: 03/29/22 21:25 Dose: 100 mg Documented By: ABDOULAYE Labs CBC & Chem 7: 03/29/22 05:18 03/30/22 05:30 Labs: Laboratory Results - last 24 hr 03/29/22 03/29/22 03/29/22 12:12 15:21 19:10 Anion Gap Estim Creat Clear Calc Estimated GFR POC Glucose 104 114 113 Random Glucose Calcium 03/30/22 03/30/22 03/30/22 05:30 07:12 11:12 Anion Gap 12 Estim Creat Clear Calc 117.9 Estimated GFR > 60 POC Glucose 122 H 145 H Random Glucose 123 H Calcium 7.4 L D Microbiology Microbiology Results: Microbiology 03/28/22 Unknown Gram Stain - Final Peritoneal Fluid Routine Culture - Preliminary Culture in progress. Anaerobic Culture - Preliminary Culture in progress. 03/27/22 20:48 Blood Culture - Preliminary Blood - Venous No growth after 48 hours. 03/27/22 17:00 Blood Culture - Final Blood - Venous Coag negative Staphylococcus Procedures Date of Service Date of Service: 03/30/22 Progress Note: A&P Assessment and plan (1) Acute appendicitis with appendiceal abscess: Status: Acute (2) Acute appendicitis: Status: Acute (3) Morbid obesity: Status: Acute (4) Obesity (BMI 30-39.9): Status: Acute (5) Dyslipidemia: Status: Acute (6) HTN (hypertension): Status: Acute (7) Diabetic nephropathy associated with type 2 diabetes mellitus: Status: Acute Plan Switch to lactated Ringer's as ordered. Continue present antibiotic regime and trend daily labs. Encourage out of bed and ambulation. Continue to trend drain output. Awaiting culture and sensitivities. Time Spent With Patient Time: Total time spent is greater than 50% in coordination of care (as documented) at patient's floor/unit and/or counseling patient: Quality Stroke Does the patient have a stroke diagnosis?: No VTE Prior VTE?: No VTE Risk Level:: Surgical - high VTE Device Contraindication: N/A - Device Ordered VTE Drug Contraindication: N/A - Med Ordered
[2022-03-30] MEDS: Lactated Ringers 500 ML 80 ML IV (13:27)
[2022-03-30 15:16] VITALS: BP 108/70; PULSE 61; RESP 16; TEMP 36.4; O2SAT 96
[2022-03-30 15:45] LABS: Glucose, Whole Blood 89 mg/dL (60-115)
[2022-03-30 19:14] VITALS: BP 120/74; PULSE 66; RESP 18; TEMP 36.6; O2SAT 95
[2022-03-30 19:27] LABS: Glucose, Whole Blood 94 mg/dL (60-115)
[2022-03-30] MEDS: traZODone HCL 100 MG TABLET PO (20:33)
[2022-03-30 23:33] VITALS: BP 128/60; PULSE 68; RESP 18; TEMP 36.4; O2SAT 95
[2022-03-31] VITALS (7 sets, daily range): BP systolic 117–156; BP diastolic 62–98; PULSE 58–72; RESP 16–18; TEMP 36.2–36.8; O2SAT 92–98
[2022-03-31] MEDS: HYDROmorphone HCl 0.5 MG/0.5 ML SYRINGE IVPUSH ×6 (01:47→22:20)
[2022-03-31] MEDS: Piperacillin Sodium/Tazobactam 3.375 GM in 0.9 % Sodium Chloride 50 ML IV ×4 (05:16→22:22)
[2022-03-31] MEDS: KCl 20 mEq in 5% Dex/0.45% Sod 20 MEQ/1,000 ML IV.SOLN 125 MEQ IVCONT (05:53)
[2022-03-31 07:37] LABS: Glucose, Whole Blood 116 mg/dL (60-115)
--- NOTE | 2022-03-31 08:04 | PM.PNGS ---
Subjective Subjective Date of Service: 03/31/22 Patient reports: feels better Interval history: The patient reports that he is doing better and is passing gas and having liquid stool. He denies chest pain but noted some gasping overnight since he does not have his CPAP with him in. He otherwise denies interval change. Physical Exam Vital Signs: Vital Signs: Last Vital Signs Temp 97.1 F 03/31/22 07:29 Pulse 59 03/31/22 07:29 Resp 18 03/31/22 07:29 BP 117/69 03/31/22 07:29 Pulse Ox 95 03/31/22 07:29 O2 Del Method 03/31/22 07:29 O2 Flow Rate 2 03/30/22 23:33 BMI result Body Mass Index 37.3 The patient is nontoxic and is in good spirits Dressings are clean dry and intact Abdomen has appropriate tenderness MARY remains serous Objective Data Active Medications Acetaminophen (Acetaminophen 325 Mg Tablet) 975 mg PO Q6H PRN PRN Reason: Pain, Mild (Pain Scale 1-3) Last Admin: 03/30/22 07:24 Dose: 975 mg Documented By: DEON Buspirone HCl (Buspirone Hcl 5 Mg Tablet) 5 mg PO DAILY [facility] Last Admin: 03/30/22 07:25 Dose: 5 mg Documented By: DEON Carvedilol (Carvedilol 12.5 Mg Tablet) 12.5 mg PO BID [facility]; Protocol Last Admin: 03/30/22 20:34 Dose: 12.5 mg Documented By: LUCI Docusate Sodium (Docusate Sodium 100 Mg Capsule) 200 mg PO BID [facility] Last Admin: 03/30/22 21:01 Dose: Not Given Documented By: LUCI Non-Admin Reason: Patient Refused Fentanyl (Fentanyl Citrate/Pf 100 Mcg/2 Ml Vial) 50 mcg IVPUSH Q5M PRN; Protocol PRN Reason: Pain, Severe (Pain Scale 7-10) Last Admin: 03/28/22 11:56 Dose: 50 mcg Documented By: SADIQ Heparin Sodium (Porcine) (Heparin Sodium,Porcine 5,000 Unit/Ml Vial) 5,000 unit SUBCUT Q12H [facility] Last Admin: 03/31/22 01:52 Dose: Not Given Documented By: LUCI Non-Admin Reason: pt ambulates, SCDs Hydromorphone HCl (Hydromorphone Hcl 0.5 Mg/0.5 Ml Syringe) 0.5 mg IVPUSH Q4H [facility]; Protocol Last Admin: 03/31/22 05:13 Dose: 0.5 mg Documented By: LUCI Piperacillin Sod/Tazobactam (Sod 3.375 gm/ Sodium Chloride) 50 mls @ 100 mls/hr IV Q6H [facility] Last Infusion: 03/31/22 06:12 Dose: 0 mls/hr Documented By: LUCI Losartan Potassium (Losartan Potassium 50 Mg Tablet) 50 mg PO DAILY [facility]; Protocol Last Admin: 03/30/22 07:25 Dose: 50 mg Documented By: DEON Ondansetron HCl (Ondansetron Hcl 4 Mg/2 Ml Vial) 4 mg IVPUSH Q8H PRN PRN Reason: Nausea and Vomiting Ondansetron HCl (Ondansetron Hcl 4 Mg/2 Ml Vial) 4 mg IVPUSH ONCE PRN PRN Reason: Nausea and Vomiting Oxycodone HCl (Oxycodone Hcl Immed Release 5 Mg Tablet) 5 mg PO Q4H PRN PRN Reason: Pain, Moderate (Pain Scale 4-6 Last Admin: 03/29/22 10:40 Dose: 5 mg Documented By: PANCHO Pharmacy Consult (Consult Rx Perform Med Rec) 1 each MISCELLANE ONCE PRN PRN Reason: Consult order Sertraline HCl (Sertraline Hcl 50 Mg Tablet) 150 mg PO DAILY [facility] Last Admin: 03/30/22 07:25 Dose: 150 mg Documented By: DEON Sodium Chloride (0.9 % Sodium Chloride Flush 3 Ml [facility]) [facility] Last Admin: 03/30/22 21:54 Dose: Not Given Documented By: LUCI Non-Admin Reason: IV Running Sodium Chloride (0.9 % Sodium Chloride Flush 3 Ml Syringe) 3 ml IVFLUSH [facility] Last Admin: 03/30/22 21:55 Dose: Not Given Documented By: LUCI Non-Admin Reason: IV Running Topiramate (Topiramate 25 Mg Tablet) 50 mg PO BID PRN PRN Reason: Tremor(S) Trazodone HCl (Trazodone Hcl 100 Mg Tablet) 100 mg PO BEDTIME [facility] Last Admin: 03/30/22 20:33 Dose: 100 mg Documented By: LUCI Labs CBC & Chem 7: 03/31/22 08:30 03/30/22 05:30 Labs: Laboratory Results - last 24 hr 03/30/22 03/30/22 03/30/22 11:12 15:20 19:13 POC Glucose 145 H 89 94 03/31/22 07:32 POC Glucose 116 H Microbiology Microbiology Results: Microbiology 03/28/22 Unknown Gram Stain - Final Peritoneal Fluid Routine Culture - Preliminary Culture in progress. Anaerobic Culture - Preliminary Clostridium septicum Procedures Date of Service Date of Service: 03/31/22 Progress Note: A&P Assessment and plan (1) Acute appendicitis with appendiceal abscess: Status: Acute (2) Acute appendicitis: Status: Acute (3) Morbid obesity: Status: Acute (4) Diabetic nephropathy associated with type 2 diabetes mellitus: Status: Acute (5) KYM (obstructive sleep apnea): Status: Acute Plan Postop day 3 Awaiting repeat CBC. Patient's diet is being advanced. Depending on white blood cell count, may be a candidate for discharge later. I explained to the patient that his appendix was ruptured and that at his age, this can sometimes be due to tumors or polyps. Awaiting pathology. Will reassess later after labs are returned. Time Spent With Patient Time: Total time spent is greater than 50% in coordination of care (as documented) at patient's floor/unit and/or counseling patient: Quality Stroke Does the patient have a stroke diagnosis?: No VTE Prior VTE?: No VTE Risk Level:: Surgical - high VTE Device Contraindication: N/A - Device Ordered VTE Drug Contraindication: N/A - Med Ordered
[2022-03-31] MEDS: busPIRone HCl 5 MG TABLET PO (08:29)
[2022-03-31] MEDS: Docusate Sodium 100 MG CAPSULE 200 MG PO ×2 (08:29→22:21)
[2022-03-31] MEDS: Losartan Potassium 50 MG TABLET PO (08:29)
[2022-03-31] MEDS: Sertraline HCL 50 MG TABLET 150 MG PO (08:29)
[2022-03-31] MEDS: carvediloL 12.5 MG TABLET PO ×2 (08:29→22:22)
[2022-03-31 08:57] LABS: MANUAL DIFF FLAG NO
[2022-03-31 09:04] LABS: Basophils Percent Auto 0.6 % (0-2); Eosinophils Absolute Auto 0.2 X10*3/uL (0.0-0.4); Eosinophils Percent Auto 3.5 % (0-4); Hematocrit 40.5 % (42.0-52.0); Hemoglobin 12.8 g/dl (14.0-18.0); Imm Gran Abs Auto 0.05 X10*3/uL (0.00-0.03); Lymphocytes Absolute Auto 1.1 X10*3/uL (1.2-4.9); Lymphocytes Percent Auto 21.5 % (20-40); Mean Corpuscular HGB Conc 31.6 g/dl (31.0-36.0); Mean Corpuscular Hemoglobin 28.2 pg (27.0-33.0); Mean Corpuscular Volume 89.2 fL (80.0-98.0); Mean Platelet Volume 10.6 fL (9.4-12.4); Monocytes Absolute Auto 0.5 X10*3/uL (0.1-1.2); Monocytes Percent Auto 9.4 % (2-11); Neutrophils Absolute Auto 3.3 x10*3/uL (2.0-8.3); Platelet Count 148 X10*3/uL (160-400); Red Blood Count 4.54 X10*6/uL (4.60-5.80); Red Cell Distribution Width 13.6 % (11.0-16.0); White Blood Count 5.1 X10*3/uL (4.8-10.8)
[2022-03-31 11:49] LABS: Glucose, Whole Blood 151 mg/dL (60-115)
--- NOTE | 2022-03-31 12:33 | MHC.CLN ---
F/U PER MD, DIET ORDER IS FULL LIQUID AND OK FOR STARCHES, BREAD, BAGELS, CREAM CHEESE. INTAKE APPEARS VERY GOOD. RD TO FOLLOW WEEKLY.
[2022-03-31] MEDS: Heparin Sodium,Porcine 5,000 UNIT/ML VIAL 5000 UNIT SUBCUT (13:20)
[2022-03-31 15:38] LABS: Glucose, Whole Blood 92 mg/dL (60-115)
[2022-03-31] MEDS: 0.9 % Sodium Chloride Flush 3 ML SYRINGE IVFLUSH (15:46)
[2022-03-31 19:22] LABS: Glucose, Whole Blood 118 mg/dL (60-115)
[2022-03-31] MEDS: traZODone HCL 100 MG TABLET PO (22:22)
[2022-04-01] MEDS: 0.9 % Sodium Chloride Flush 3 ML SYRINGE IVFLUSH ×5 (00:58→21:46)
[2022-04-01] MEDS: Heparin Sodium,Porcine 5,000 UNIT/ML VIAL 5000 UNIT SUBCUT ×3 (00:58→23:47)
[2022-04-01] MEDS: HYDROmorphone HCl 0.5 MG/0.5 ML SYRINGE IVPUSH ×6 (01:10→21:45)
[2022-04-01 03:36] VITALS: BP 141/80; PULSE 53; RESP 16; TEMP 36.6; O2SAT 95
[2022-04-01] MEDS: Piperacillin Sodium/Tazobactam 3.375 GM in 0.9 % Sodium Chloride 50 ML IV ×4 (03:59→21:46)
[2022-04-01 07:25] LABS: Glucose, Whole Blood 88 mg/dL (60-115)
[2022-04-01 08:00] VITALS: BP 149/78; PULSE 53; RESP 18; TEMP 36; O2SAT 95
[2022-04-01] MEDS: Sertraline HCL 50 MG TABLET 150 MG PO (08:53)
[2022-04-01] MEDS: Losartan Potassium 50 MG TABLET PO (08:53)
[2022-04-01] MEDS: Docusate Sodium 100 MG CAPSULE 200 MG PO ×2 (08:53→21:45)
[2022-04-01] MEDS: busPIRone HCl 5 MG TABLET PO (08:53)
[2022-04-01] MEDS: carvediloL 12.5 MG TABLET PO ×2 (08:53→21:45)
[2022-04-01 10:55] VITALS: BP 132/75; PULSE 62; RESP 17; TEMP 36.3; O2SAT 96
[2022-04-01 11:15] LABS: Glucose, Whole Blood 148 mg/dL (60-115)
--- NOTE | 2022-04-01 13:15 | PM.PNGS ---
Subjective Subjective Date of Service: 04/01/22 Interval history: The patient has had bowel movements and reports continued drainage around his MARY drain. He otherwise denies chest pain, difficulty breathing or shortness of breath. He is tolerating full liquids and interested in his diet being advanced. Physical Exam Vital Signs: Vital Signs: Last Vital Signs Temp 97.3 F 04/01/22 10:55 Pulse 62 04/01/22 10:55 Resp 17 04/01/22 10:55 BP 132/75 04/01/22 10:55 Pulse Ox 96 04/01/22 10:55 O2 Del Method 04/01/22 10:55 O2 Flow Rate 2 03/30/22 23:33 BMI result Body Mass Index 37.3 On exam he is nontoxic Sclera are anicteric Abdomen remains obese. The straw-colored fluid has saturated his ABD and MARY dressings. These were removed and the nurse will re-dress. MARY drainage is straw/serous non turbid/non feculent material Objective Data Active Medications Acetaminophen (Acetaminophen 325 Mg Tablet) 975 mg PO Q6H PRN PRN Reason: Pain, Mild (Pain Scale 1-3) Last Admin: 03/30/22 07:24 Dose: 975 mg Documented By: DEON Buspirone HCl (Buspirone Hcl 5 Mg Tablet) 5 mg PO DAILY [facility] Last Admin: 04/01/22 08:53 Dose: 5 mg Documented By: REMI Carvedilol (Carvedilol 12.5 Mg Tablet) 12.5 mg PO BID [facility]; Protocol Last Admin: 04/01/22 08:53 Dose: 12.5 mg Documented By: REMI Docusate Sodium (Docusate Sodium 100 Mg Capsule) 200 mg PO BID [facility] Last Admin: 04/01/22 08:53 Dose: 200 mg Documented By: REMI Heparin Sodium (Porcine) (Heparin Sodium,Porcine 5,000 Unit/Ml Vial) 5,000 unit SUBCUT Q12H [facility] Last Admin: 04/01/22 00:58 Dose: 5,000 unit Documented By: PEMA Hydromorphone HCl (Hydromorphone Hcl 0.5 Mg/0.5 Ml Syringe) 0.5 mg IVPUSH Q4H [facility]; Protocol Last Admin: 04/01/22 08:52 Dose: 0.5 mg Documented By: REMI Piperacillin Sod/Tazobactam (Sod 3.375 gm/ Sodium Chloride) 50 mls @ 100 mls/hr IV Q6H [facility] Last Infusion: 04/01/22 09:28 Dose: 0 mls/hr Documented By: REMI Losartan Potassium (Losartan Potassium 50 Mg Tablet) 50 mg PO DAILY [facility]; Protocol Last Admin: 04/01/22 08:53 Dose: 50 mg Documented By: REMI Ondansetron HCl (Ondansetron Hcl 4 Mg/2 Ml Vial) 4 mg IVPUSH Q8H PRN PRN Reason: Nausea and Vomiting Ondansetron HCl (Ondansetron Hcl 4 Mg/2 Ml Vial) 4 mg IVPUSH ONCE PRN PRN Reason: Nausea and Vomiting Oxycodone HCl (Oxycodone Hcl Immed Release 5 Mg Tablet) 5 mg PO Q4H PRN PRN Reason: Pain, Moderate (Pain Scale 4-6 Last Admin: 03/29/22 10:40 Dose: 5 mg Documented By: PANCHO Pharmacy Consult (Consult Rx Perform Med Rec) 1 each MISCELLANE ONCE PRN PRN Reason: Consult order Sertraline HCl (Sertraline Hcl 50 Mg Tablet) 150 mg PO DAILY [facility] Last Admin: 04/01/22 08:53 Dose: 150 mg Documented By: REMI Sodium Chloride (0.9 % Sodium Chloride Flush 3 Ml Syringe) [facility] Last Admin: 04/01/22 08:53 Dose: 3 ml Documented By: REMI Sodium Chloride (0.9 % Sodium Chloride Flush 3 Ml Syringe) 3 ml IVFLUSH [facility] Last Admin: 04/01/22 08:54 Dose: Not Given Documented By: REMI Non-Admin Reason: only 1 access Topiramate (Topiramate 25 Mg Tablet) 50 mg PO BID PRN PRN Reason: Tremor(S) Trazodone HCl (Trazodone Hcl 100 Mg Tablet) 100 mg PO BEDTIME [facility] Last Admin: 03/31/22 22:22 Dose: 100 mg Documented By: GOYO Labs CBC & Chem 7: 03/31/22 08:30 03/30/22 05:30 Labs: Laboratory Results - last 24 hr 03/31/22 03/31/22 04/01/22 15:02 19:12 07:11 POC Glucose 92 118 H 88 04/01/22 10:57 POC Glucose 148 H Microbiology Microbiology Results: Microbiology 03/28/22 Unknown Gram Stain - Final Peritoneal Fluid Routine Culture - Final Haemophilus parainfluenzae Anaerobic Culture - Preliminary Clostridium septicum Procedures Date of Service Date of Service: 04/01/22 Progress Note: A&P Assessment and plan (1) Acute appendicitis with appendiceal abscess: Status: Acute (2) KYM (obstructive sleep apnea): Status: Acute (3) Morbid obesity: Status: Acute (4) Obesity (BMI 30-39.9): Status: Acute (5) Dyslipidemia: Status: Acute (6) HTN (hypertension): Status: Acute Plan Advance to diabetic diet. Await pathology; I discussed with the patient the possibility of tumor/polyp or unusual pathology of the appendix given the CT appearance and perforation. Patient's white count is normalized. If he tolerates his diet, discharge with home VNA may be reasonable for tomorrow. Otherwise, continue present management. Time Spent With Patient Time: Total time spent is greater than 50% in coordination of care (as documented) at patient's floor/unit and/or counseling patient: Quality Stroke Does the patient have a stroke diagnosis?: No VTE Prior VTE?: No VTE Risk Level:: Surgical - high VTE Device Contraindication: N/A - Device Ordered VTE Drug Contraindication: N/A - Med Ordered
--- NOTE | 2022-04-01 15:05 | MHC.CM.PN ---
EMR Review, Patient not medically cleared for discharge today R/T advancement to diabetic diet, if diet is tolerated, anticipate Home with VNA on Tuesday. CM will continue to follow for discharge needs.
[2022-04-01 15:13] VITALS: BP 157/63; PULSE 72; RESP 20; TEMP 36.4; O2SAT 95
[2022-04-01 19:43] VITALS: BP 146/79; PULSE 62; RESP 18; TEMP 36.5; O2SAT 96
[2022-04-01 20:18] LABS: Glucose, Whole Blood 180 mg/dL (60-115)
[2022-04-01] MEDS: traZODone HCL 100 MG TABLET PO (21:45)
[2022-04-02] VITALS: BP 129/60; PULSE 69; RESP 17; TEMP 36.2; O2SAT 96
[2022-04-02 03:58] VITALS: BP 137/68; PULSE 73; RESP 17; TEMP 36.6; O2SAT 97
[2022-04-02] MEDS: HYDROmorphone HCl 0.5 MG/0.5 ML SYRINGE IVPUSH ×2 (04:47→09:06)
[2022-04-02] MEDS: Piperacillin Sodium/Tazobactam 3.375 GM in 0.9 % Sodium Chloride 50 ML IV ×2 (04:47→09:06)
[2022-04-02 07:14] LABS: Glucose, Whole Blood 102 mg/dL (60-115)
[2022-04-02 08:00] VITALS: BP 144/85; PULSE 60; RESP 18; TEMP 36.3; O2SAT 96
[2022-04-02] MEDS: busPIRone HCl 5 MG TABLET PO (08:46)
[2022-04-02] MEDS: Losartan Potassium 50 MG TABLET PO (08:46)
[2022-04-02] MEDS: carvediloL 12.5 MG TABLET PO (08:46)
[2022-04-02] MEDS: Sertraline HCL 50 MG TABLET 150 MG PO (08:46)
[2022-04-02] MEDS: Docusate Sodium 100 MG CAPSULE 200 MG PO (08:46)
[2022-04-02] MEDS: 0.9 % Sodium Chloride Flush 3 ML SYRINGE IVFLUSH (08:47)
--- NOTE | 2022-04-02 09:50 | MHC.CM.PN ---
CM CONTACTED CLARICE CALLING VIA PHONE AT 9:40AM, MANNY IN INTAKE REPORTED PT IS ACTIVE W/THEIR SERVICE HOWEVER UNDER BETTY SANDOVAL NOT LORI SURESH. FABIAN PT WILL BE CLEARED FOR D/C TODAY AND WILL RESUME MED MANAGEMENT AND FOR P/O APPENDECTOMY, S.O. FOR TRANSPORT
--- NOTE | 2022-04-02 10:04 | PM.PNGS ---
Subjective Subjective Date of Service: 04/02/22 Patient reports: no new complaints Interval history: The patient is tolerating his diet and moving his bowels. His diet was advanced and he is doing well. He has minimal pain is anxious for discharge. We discussed the importance of obtaining pathology which is not returned yet. Physical Exam Vital Signs: Vital Signs: Last Vital Signs Temp 97.4 F 04/02/22 08:00 Pulse 60 04/02/22 08:00 Resp 18 04/02/22 08:00 BP 144/85 H 04/02/22 08:00 Pulse Ox 96 04/02/22 08:00 O2 Del Method 04/02/22 08:00 O2 Flow Rate 2 04/02/22 03:58 BMI result Body Mass Index 37.3 On exam, the patient is in good spirits His abdominal dressings are intact MARY continues to put out clear straw-colored fluid Objective Data Active Medications Acetaminophen (Acetaminophen 325 Mg Tablet) 975 mg PO Q6H PRN PRN Reason: Pain, Mild (Pain Scale 1-3) Last Admin: 03/30/22 07:24 Dose: 975 mg Documented By: DEON Buspirone HCl (Buspirone Hcl 5 Mg Tablet) 5 mg PO DAILY [facility] Last Admin: 04/02/22 08:46 Dose: 5 mg Documented By: MANSOOR Carvedilol (Carvedilol 12.5 Mg Tablet) 12.5 mg PO BID [facility]; Protocol Last Admin: 04/02/22 08:46 Dose: 12.5 mg Documented By: MANSOOR Docusate Sodium (Docusate Sodium 100 Mg Capsule) 200 mg PO BID [facility] Last Admin: 04/02/22 08:46 Dose: 200 mg Documented By: MANSOOR Heparin Sodium (Porcine) (Heparin Sodium,Porcine 5,000 Unit/Ml Vial) 5,000 unit SUBCUT Q12H [facility] Last Admin: 04/01/22 23:47 Dose: 5,000 unit Documented By: HANS Hydromorphone HCl (Hydromorphone Hcl 0.5 Mg/0.5 Ml Syringe) 0.5 mg IVPUSH Q4H [facility]; Protocol Last Admin: 04/02/22 09:06 Dose: 0.5 mg Documented By: MANSOOR Piperacillin Sod/Tazobactam (Sod 3.375 gm/ Sodium Chloride) 50 mls @ 100 mls/hr IV Q6H [facility] Last Admin: 04/02/22 09:06 Dose: 100 mls/hr Documented By: MANSOOR Losartan Potassium (Losartan Potassium 50 Mg Tablet) 50 mg PO DAILY [facility]; Protocol Last Admin: 04/02/22 08:46 Dose: 50 mg Documented By: MANSOOR Ondansetron HCl (Ondansetron Hcl 4 Mg/2 Ml Vial) 4 mg IVPUSH Q8H PRN PRN Reason: Nausea and Vomiting Ondansetron HCl (Ondansetron Hcl 4 Mg/2 Ml Vial) 4 mg IVPUSH ONCE PRN PRN Reason: Nausea and Vomiting Oxycodone HCl (Oxycodone Hcl Immed Release 5 Mg Tablet) 5 mg PO Q4H PRN PRN Reason: Pain, Moderate (Pain Scale 4-6 Last Admin: 03/29/22 10:40 Dose: 5 mg Documented By: PANCHO Pharmacy Consult (Consult Rx Perform Med Rec) 1 each MISCELLANE ONCE PRN PRN Reason: Consult order Sertraline HCl (Sertraline Hcl 50 Mg Tablet) 150 mg PO DAILY [facility] Last Admin: 04/02/22 08:46 Dose: 150 mg Documented By: MANSOOR Sodium Chloride (0.9 % Sodium Chloride Flush 3 Ml Syringe) 3 ml IVFLUSH [facility] Last Admin: 04/02/22 08:47 Dose: 3 ml Documented By: MANSOOR Sodium Chloride (0.9 % Sodium Chloride Flush 3 Ml Syringe) 3 ml IVFLUSH [facility] Last Admin: 04/02/22 08:47 Dose: Not Given Documented By: MANSOOR Non-Admin Reason: Previously Administered Topiramate (Topiramate 25 Mg Tablet) 50 mg PO BID PRN PRN Reason: Tremor(S) Trazodone HCl (Trazodone Hcl 100 Mg Tablet) 100 mg PO BEDTIME [facility] Last Admin: 04/01/22 21:45 Dose: 100 mg Documented By: HANS Labs CBC & Chem 7: 03/31/22 08:30 03/30/22 05:30 Labs: Laboratory Results - last 24 hr 04/01/22 04/01/22 04/02/22 10:57 20:07 07:10 POC Glucose 148 H 180 H 102 Microbiology Microbiology Results: Microbiology 03/28/22 Unknown Gram Stain - Final Peritoneal Fluid Routine Culture - Final Haemophilus parainfluenzae Anaerobic Culture - Final Clostridium septicum 03/27/22 20:48 Blood Culture - Final Blood - Venous No growth after 5 days. Procedures Date of Service Date of Service: 04/02/22 Progress Note: A&P Assessment and plan (1) Acute appendicitis with appendiceal abscess: Status: Acute (2) Acute appendicitis: Status: Acute (3) KYM (obstructive sleep apnea): Status: Acute (4) Obesity (BMI 30-39.9): Status: Acute (5) Dyslipidemia: Status: Acute (6) HTN (hypertension): Status: Acute Plan Patient is surgically stable for discharge today. I will continue him on Augmentin, p.o. for another week and send the prescription to his pharmacy Patient needs VNA regarding his MARY drain Plan for discharge later today Time Spent With Patient Time: Total time spent is greater than 50% in coordination of care (as documented) at patient's floor/unit and/or counseling patient: Quality Stroke Does the patient have a stroke diagnosis?: No VTE Prior VTE?: No VTE Risk Level:: Surgical - high VTE Device Contraindication: N/A - Device Ordered VTE Drug Contraindication: N/A - Med Ordered
[2022-04-02 11:06] VITALS: BP 146/76; PULSE 78; RESP 18; TEMP 36.3; O2SAT 96
[2022-04-02 11:16] LABS: Glucose, Whole Blood 214 mg/dL (60-115)
--- NOTE | 2022-04-02 11:30 | P.DS_ITS ---
DS: Providers Provider Date of Service: 04/02/22 Date of admission: 03/27/22 20:30 Primary care physician: Unknown Physician Consults: 03/27/22 20:16 Consult to General Surgery Stat Consulting Provider: Luke Alfonso Reason for consultation: Acute appendicitis Has provider been notified: Yes 03/29/22 09:43 Consult to Infectious Diseases Routine Consulting Provider: Ashlie Cerda Reason for consultation: peritonitis secondaryto perfed appy & positive blood culture (?contaminent? Has provider been notified: No DS: Diagnosis Discharge Diagnosis (1) Acute appendicitis with appendiceal abscess: Status: Acute (2) Acute appendicitis: Status: Acute (3) KYM (obstructive sleep apnea): Status: Acute (4) Obesity (BMI 30-39.9): Status: Acute (5) Dyslipidemia: Status: Acute (6) HTN (hypertension): Status: Acute DS: Summary Hospital Course Hospital Course: The patient is a 56-year-old morbidly obese gentleman with hyperlipidemia, obstructive sleep apnea and type 2 diabetes who presented with abdominal pain and a CT that showed a possible muco seal and appendicitis. Intraoperatively, a perforated appendix with abscess was encountered and resection of the Appendix was performed with intraop drain placement. He was kept on bowel rest, Zosyn and over the ensuing postoperative days, bowel function returned and his white blood cell count diminished. At the time of discharge, pathology is still pending. There were some unusual intraoperative features in given the patient's age and comorbidities, I explained to him that tumors or polyps are sometimes possible and that the pathology is extremely important. He is discharged with a MARY drain and VNA. He will continue Augmentin for 1 week postop Follow-up with me in 1 week, sooner for abdominal pain, fevers or drain questions. Overall condition of the time of discharge is improved. Time Spent with Patient Time attestation: Total time spent providing and/or coordinating discharge services: Discharge coordination time: Less than 30 minutes Quality: Safe Use of Opioids Does Pt have an Active Cancer Diagnosis on the Problem List?: No Quality: Stroke Does the patient have a stroke diagnosis?: No Physical Exam Vital Signs: Vital Signs: Last Vital Signs Temp 97.4 F 04/02/22 11:06 Pulse 78 04/02/22 11:06 Resp 18 04/02/22 11:06 BP 146/76 H 04/02/22 11:06 Pulse Ox 96 04/02/22 11:06 O2 Del Method 04/02/22 11:06 O2 Flow Rate 2 04/02/22 03:58 BMI result Body Mass Index 37.3 DS: Data Data Completed and Pending Completed studies during hospitalization [Text1]: Pending at discharge 03/28/22 10:58 Surgical [PTH] Routine Labs on day of discharge: Laboratory Results - last 24 hr 04/01/22 04/02/22 04/02/22 20:07 07:10 11:11 POC Glucose 180 H 102 214 H Discharge Plan Discharge Patient Disposition: Home, Self-Care Discharge Diagnosis: perforated appendicitis with abscess Referrals: Genoveva Cash [Outside] - 1 Day (USP AND RESUMPTION OF MED MANAGEMENT) Physician,Jason Dave [Primary Care Provider] - 1 Week Luke Alfonso MD [Physician] - 1 Week Discharge Medications: New amoxicillin-pot clavulanate 875-125 mg Tablet 875 mg PO Q12H Qty: 13 0RF Continued zolpidem 10 mg Tablet 10 mg PO BEDTIME PRN (Reason: Sleep) topiramate [Topamax] 50 mg Tablet 50 mg PO BID PRN (Reason: Tremor(S)) Trulicity 3 mg/0.5 mL pen injector 3 mg subcut FR@0900 sertraline 100 mg tablet 1.5 tab PO DAILY buspirone 5 mg tablet 1 tab PO DAILY cholecalciferol (vitamin D3) 25 mcg (1,000 unit) capsule 25 mcg PO DAILY atorvastatin 10 mg tablet 10 mg PO BEDTIME carvedilol 12.5 mg tablet 12.5 mg PO Q12H trazodone 150 mg tablet 150 mg PO BEDTIME losartan 50 mg tablet 50 mg PO DAILY hydrochlorothiazide 25 mg tablet 25 mg PO DAILY (DME) blood-glucose meter [FreeStyle Lite Meter] Kit See Rx Instructions .ROUTE .MEDSUPPLY Qty: 1 0RF Rx Instructions: As directed twice a day Diet: Regular diet Activity on Discharge: No heavy lifting Stand Alone Forms: Patient Portal Discharge page Activity Restrictions/Additional Instructions: You had a laparoscopic appendectomy performed by Dr. Alfonso. It is normal to f eel some minor abdominal discomfort due to the gas from the operation, however if you develop severe pain in your abdomen or chest, fevers over 100F, vomiting and are unable to keep liquids down, you should contact Dr. Alfonso or report to the nearest emergency department. If your incisions become red, swollen and tender, draining pus or have problems, please contact Dr. Alfonso report to the nearest emergency department. If you have bandages on your incisions, leave them in place for 48 hours, then remove them. You can shower but not soak in a tub after removing the bandages. If there are paper tapes known as butterflies/Steri-Strips, leave them fall off on their own in 1-2 weeks. You do not need to put another bandage on your incisions and lesser clothing rubs or irritates your incisions. You can shower after you removed your bandages in 48 hours, but do not soak in a tub, go in a pool, or go swimming in a [place] pond or ocean. Please let the paper tapes to dry after getting them wet. You do not need to replace a bandage on lesser clothing irritates the incision. You may find that pants with an elastic waist or suspenders are more comfortable than pants requiring a belt until your incisions completely heal. Because of the operation, you should not lift more than 20 lb for the next 4 weeks. Any strenuous activity such as lifting more than 20 lb, digging, yoga, any athletic activity, like running, soccer, or other strenuous activity, lifting heavy bags/groceries, swimming, martial arts, or other strenuous athletic activities can cause hernias. If you have any questions regarding a specific activity, please ask Dr. Alfonso. Avoiding strenuous activities will minimize the risk of incisional hernias. After a week, at your follow-up visit, Dr. Alfonso will discuss returning to work on light duty with you. Since you can perform light duty, you are not disable, but your employer may not allow you to return until you have no restrictions; it is up to you to discuss this issue, as we cannot disclose personal information. Please bring any paperwork to that follow-up appointment from your employer. Please note that you are not disabled and need to discuss your work restrictions for medical reasons with your employer. If you were prescribed an antibiotic, continue taking the medication as prescribed. The anesthesia from the operation and pain medicine will cause constipation. You can purchase nphe-aig-ptxjito stool softener known as Colace/docusate, 100 mg and take 2 tablets in the morning with breakfast and 2 tablets in the evening after dinner to minimize this problem. Even if you are not taking narcotics, the anesthesia can cause constipation. You can take rpjy-hng-srijiip Tylenol/acetaminophen with eadu-nsn-mkmohqk naproxen or ibuprofen to help with pain. Ice packs are also allowed to minimize pain and swelling. You should eat a high-protein, high-fiber, low-fat diet to optimize healing. Please resume any preoperative medications unless otherwise directed by Dr. Alfonso. Please contact your primary care provider for a follow-up appointment in 2 weeks. Care Plan Goals: Allow adequate healing by restricting activity for the next 4 weeks. Do not lift more than 20 lb or perform strenuous activities. Health Concerns: Type 2 diabetes, obesity, resolving perforated appendicitis, obstructive sleep apnea Plan of Treatment: Allowed adequate postoperative healing, protein supplementation and antibiotic treatment Assessment: Perforated appendicitis with abscess, pathology is currently pending. You will need to see Dr. Alfonso in follow-up to discuss pathology and be sure your infection is improving.
[2022-04-02] MEDS: Amoxicillin/Potassium Clav 875 MG TABLET PO (11:33)
--- NOTE | 2022-04-02 11:40 | W.MHC.F2F ---
Service Date Service Date: 04/02/22 Encounter Date of encounter: 04/02/22 Reasons for Services Signs and symptoms assessed: The patient is a 56-year-old gentleman with a perforated of Appendix with abscess requiring intraoperative drain placement that continues to drain fluid. He requires help with daily management of the drain, trending of the output to assess for timely removal. The patient is not to shower while the drain is in. Reason for residential: CV/CP assess and/or care, wound care and postoperative assessment and/or care Homebound: Leaving the home is medically contraindicated at this time without the asist of a device and/or another person due th the listed conditions above and below. Reason homebound: immunosuppression / infection risk, cognitively impaired / unsafe and weakness related to hospital stay Certification: Based on the above findings, I certify that this patient is confined to the home and needs intermittent residential care, physical therapy and/or speech therapy, or continues to need occupational therapy. The patient is under my care, and I have initiated the establishment of the plan of care. The patient will be followed by a physician who will periodically review the plan of care.
--- NOTE | 2022-04-02 12:50 | MHC.CLN ---
NUTRITION CONSULT FOR OBESITY AND DM. PATIENT SEES OUTPATIENT ENDOCRINOLOGY RD ON A REGULAR BASIS. NO ADDITIONAL EDUCATION PROVIDED. TAKING ENSURE MAX PROTEIN PER MD TO PROVIDE ADDITIONAL PROTEIN FOR POST OP HEALING.
[2022-04-02 15:25] VITALS: BP 152/71; PULSE 88; RESP 20; TEMP 36.8; O2SAT 97
--- NOTE | 2022-04-06 12:19 | MHC.CM.PN ---
Addendum entered by Daniella Cooper, RN 04/06/22 12:35: Prior to d/c pt did receive teaching and was able to independently empty, reset and measure drainage. Original Note: Pt d/c'd on 04/02, cm received call from Melina at pt's [facility] who see pt daily for psych meds, per Melina they will see pt for daily meds however they're medical is unable to see him for MARY drain management, Melina reports pt has a family member monitoring and pt's nurse will put eyes on however she was insistent on speaking w/surgeon. Melina transferred to general surgery.
== END 2022-04-02 17:04 | disposition home or self-care (01) | DRG 233 ==
LOC: HO.ED 18:00 → HO.EDOVER 20:43 → HO.S3 22:14
PROVIDERS: Admitting Provider Surgery; Emergency Provider Emergency Medicine Emergency Medical Services; PCP Internal Medicine; Visit Provider Surgery
PROC: 0DTJ4ZZ Resection of Appendix, Percutaneous Endoscopic Approach (ICD-10-PCS; CPT 44970; principal; 2022-03-28 09:00)
DX: K35.21 Acute appendicitis with generalized peritonitis, with abscess (principal); E11.21 Type 2 diabetes mellitus with diabetic nephropathy; E11.40 Type 2 diabetes mellitus with diabetic neuropathy, unspecified; E78.5 Hyperlipidemia, unspecified; G47.33 Obstructive sleep apnea (adult) (pediatric); E66.01 Morbid (severe) obesity due to excess calories; Z20.822 Contact with and (suspected) exposure to COVID-19; Z68.37 Body mass index [BMI] 37.0-37.9, adult; Z88.8 Allergy status to other drugs, medicaments and biological substances; Z79.899 Other long term (current) drug therapy
CPT/HCPCS: 44970; 36415; 74176; 80048; 80076; 82947; 83605; 83690; 85025; 87040; 87071; 87073; 87076; 87077; 87147; 87185; 87205; 87635; 88304; 88341; 88342; 88360; 93005; 96374; 96375; 99285; J1100; J1170; J2250; J2405; J2543; J2795; J3010

== ENCOUNTER 2022-04-09 14:36 | Outpatient (REF) | payer MEDICAID, SELFPAY ==
[2022-04-09 14:54] LABS: MANUAL DIFF FLAG NO
[2022-04-09 15:15] LABS: Basophils Percent Auto 0.3 % (0-2); Eosinophils Absolute Auto 0.1 X10*3/uL (0.0-0.4); Eosinophils Percent Auto 1.9 % (0-4); Hematocrit 43.1 % (42.0-52.0); Hemoglobin 13.7 g/dl (14.0-18.0); Imm Gran Abs Auto 0.05 X10*3/uL (0.00-0.03); Imm Gran Pct Auto 0.7 % (0.0-0.4); Lymphocytes Absolute Auto 1.7 X10*3/uL (1.2-4.9); Mean Corpuscular HGB Conc 31.8 g/dl (31.0-36.0); Mean Corpuscular Hemoglobin 27.9 pg (27.0-33.0); Mean Corpuscular Volume 87.8 fL (80.0-98.0); Mean Platelet Volume 10.1 fL (9.4-12.4); Monocytes Absolute Auto 0.5 X10*3/uL (0.1-1.2); Monocytes Percent Auto 6.5 % (2-11); Neutrophils Absolute Auto 4.9 x10*3/uL (2.0-8.3); Neutrophils Percent Auto 67.6 % (45-73); Platelet Count 184 X10*3/uL (160-400); Red Blood Count 4.91 X10*6/uL (4.60-5.80); Red Cell Distribution Width 13.4 % (11.0-16.0); White Blood Count 7.2 X10*3/uL (4.8-10.8)
[2022-04-09 15:58] LABS: Alanine Aminotransferase 21 U/L (0-40); Alkaline Phosphatase 79 U/L (39-117); Anion Gap 13 (12-20); Aspartate Amino Transferase 18 U/L (5-37); Bilirubin Total 0.4 mg/dL (0.0-1.0); Blood Urea Nitrogen 10 mg/dL (9-16); Calcium 9.2 mg/dL (8.4-10.2); Carbon Dioxide 30 mmol/L (22-29); Chloride 105 mmol/L (96-108); Estimated Glomerular Filt Rate > 60; Glucose Random 90 mg/dL (60-115); Potassium 4.3 mmol/L (3.3-5.1); Sodium 144 mmol/L (135-145); Total Protein 6.8 g/dL (6.5-8.0)
== END 2022-04-09 14:37 | disposition home or self-care (01) ==
LOC: HO.LAB 14:36
PROVIDERS: PCP Internal Medicine; Visit Provider Surgery
DX: C18.1 Malignant neoplasm of appendix (principal); R19.7 Diarrhea, unspecified; E66.01 Morbid (severe) obesity due to excess calories; E78.5 Hyperlipidemia, unspecified; I10 Essential (primary) hypertension; E11.21 Type 2 diabetes mellitus with diabetic nephropathy; G47.33 Obstructive sleep apnea (adult) (pediatric)
CPT/HCPCS: 36415; 80053; 82378; 84134; 85025; 99212

== ENCOUNTER → 2022-04-13 10:50 | Outpatient (BNV) | payer MEDICAID, MEDICARE, SELFPAY | PROVIDERS: PCP Internal Medicine; Referring Provider Surgery; Visit Provider Internal Medicine | DX: Z85.038 Personal history of other malignant neoplasm of large intestine (principal); Z92.21 Personal history of antineoplastic chemotherapy; K62.5 Hemorrhage of anus and rectum | CPT/HCPCS: 99204; 99213; 99214; 99215; G2211 ==

== ENCOUNTER 2022-04-14 08:21 | Outpatient (REF) | payer MEDICAID, SELFPAY ==
--- NOTE | ~2022-04-14 | CT_ITS ---
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 Sagittal and coronal reformatted images were obtained on the technologist's workstation. Oral contrast: Yes This CT examination was performed using dose optimization techniques as appropriate, variously including the following: *Automated exposure control *Adjustment of mA and/or kV according to patient size (this includes techniques or standardized protocols for targeted exams where dose is matched to indication/reason for exam; i.e. extremities or head) *Use of iterative reconstruction technique DLP: 774 mGy-cm FINDINGS: LUNG BASES: The visualized lung bases are unremarkable. LIVER, GALLBLADDER, AND BILIARY TREE: The liver is normal in size, shape, and attenuation. No focal hepatic lesion or biliary ductal dilatation is present. The gallbladder is unremarkable with no evidence of radiopaque gallstones, gallbladder wall thickening, or obvious pericholecystic inflammatory changes. PANCREAS: Unremarkable. SPLEEN: Unremarkable. ADRENAL GLANDS: Unremarkable. KIDNEYS AND URETERS: The kidneys are normal in size, shape, and attenuation. No hydronephrosis, hydroureter, or calculi seen. No perinephric stranding. BLADDER: Unremarkable. GASTROINTESTINAL TRACT: The appendix has been removed. There is mild residual wall thickening of the cecum and terminal ileum. There is a small amount of fluid seen inferior to the cecum. There is mild diverticulosis. Small and large bowel are otherwise unremarkable. Stomach is unremarkable. ABDOMINAL WALL: There is new thickening of the right lower quadrant abdominal wall muscles and stranding of the overlying subcutaneous fat likely related to recent surgery. There is a small left inguinal hernia containing fat. LYMPH NODES: Normal. VASCULAR: Unremarkable. PELVIC VISCERA: Unremarkable. OSSEOUS STRUCTURES: There are degenerative changes of the spine. CT/CT abdomen pelvis w IV con IMPRESSION: Postsurgical changes following appendectomy. Fleischner guidelines were followed.
[2022-04-14] MEDS: Barium Sulfate Oral (Mocha) 450 ML ORAL.SUSP 900 ML PO (11:17)
[2022-04-14] MEDS: iohexoL 350 MG/ML 75 ML INFUS..BTL 85 ML IV (11:17)
== END 2022-04-14 08:22 | disposition home or self-care (01) ==
LOC: HO.CT 08:21
PROVIDERS: PCP Internal Medicine; Visit Provider Surgery
DX: C18.1 Malignant neoplasm of appendix (principal); G47.33 Obstructive sleep apnea (adult) (pediatric)
CPT/HCPCS: 74177; Q9967

== ENCOUNTER → 2022-04-16 14:58 | Outpatient (BNVA) | payer MEDICAID, SELFPAY | PROVIDERS: PCP Internal Medicine; Visit Provider Internal Medicine | DX: C18.1 Malignant neoplasm of appendix (principal) | CPT/HCPCS: 99202 ==

== ENCOUNTER 2022-04-29 07:01 | Day surgery (SDC) | payer MEDICAID, SELFPAY ==
[2022-04-23 13:55] VITALS: BMI 38.0
--- NOTE | 2022-04-28 10:28 | HO.ANESPROP2 ---
Documented by User: Cheryl Ferrara NP 04/28/22 10:30 HPI - Anesthesia Eval Consult details Narrative: 56yo M for Colonoscopy s/p lap appy 03/2022 with GA-ETT 7.5 PMFSH Active Problems Active Problems: All Active Problems (Updated 04/23/22 @ 13:46 by Ngoc Carr RN) Varicose veins of right lower extremity with inflammation (Acute) KYM (obstructive sleep apnea) (Acute) Primary appendiceal adenocarcinoma (Acute) Diarrhea (Acute) Morbid obesity (Acute) Umbilical hernia (Acute) Obesity (BMI 30-39.9) (Acute) Dyslipidemia (Acute) HTN (hypertension) (Acute) Diabetic nephropathy associated with type 2 diabetes mellitus (Acute) Epidermal cyst (Acute) Diabetes type 2, controlled (Acute) Past Medical History Medical History Ambulates with cane Back pain due to injury Diabetes type 2, controlled Diabetic nephropathy associated with type 2 diabetes mellitus Dyslipidemia Epidermal cyst HTN (hypertension) Morbid obesity Obesity (BMI 30-39.9) Sleep apnea Umbilical hernia Family History Family History Father Heart disease Diabetes Mother Diabetes Heart disease Family history of problems with anesthesia: No Surgical History Surgical History H/O colonoscopy History of umbilical hernia repair (~01/08/22) Hx of removal of cyst S/P appendectomy History of Problems with Anesthesia: No Social History Social History Household Members: Significant Other Housing: House Are you a primary director of patient care to a significant other at home: No Do you presently have visiting nurse or other home services: No Alcohol intake: current Alcohol intake frequency: holidays/special occasions only Patient Tobacco Use Status: Never used Tobacco Use of substances other than those prescribed or required for medical reasons: No Are you DNR?: No Advance Directives: No Advance Directives Information Provided: Yes service: No Current occupational status: disabled Meds Allergies Allergy/AdvReac Type Severity Reaction Status Date / Time lisinopril [LISINOPRIL] Allergy Mild RASH Verified 04/16/22 15:08 Home Medications Medication Instructions Recorded Confirmed Last Taken Type atorvastatin 10 mg tablet 10 mg PO BEDTIME 03/10/21 09/09/22 08/12/22 History carvedilol 12.5 mg tablet 12.5 mg PO Q12H 10/22/20 04/23/22 03/26/22 History cholecalciferol (vitamin D3) 25 25 mcg PO DAILY 10/22/20 04/23/22 03/26/22 History mcg (1,000 unit) capsule losartan 50 mg tablet 50 mg PO DAILY 11/04/20 04/23/22 03/26/22 History trazodone 150 mg tablet 150 mg PO BEDTIME 11/04/20 04/23/22 03/26/22 History hydrochlorothiazide 25 mg tablet 25 mg PO DAILY 11/19/20 04/23/22 03/26/22 History buspirone 5 mg tablet 1 tab PO DAILY 01/04/22 04/23/22 03/26/22 History sertraline 100 mg tablet 1.5 tab PO DAILY 01/04/22 04/23/22 03/26/22 History dulaglutide 3 mg/0.5 mL 3 mg subcut FR@0900 03/27/22 04/23/22 03/26/22 History subcutaneous pen injector (Trulicity) topiramate 50 mg tablet (Topamax) 50 mg PO BID PRN Tremor(S) 03/27/22 04/23/22 Unknown History zolpidem 10 mg tablet 10 mg PO BEDTIME PRN Sleep 03/27/22 04/23/22 Unknown History oxycodone-acetaminophen 5 mg-325 1 tab PO Q4-6H PRN pain 04/13/22 04/23/22 Unknown History mg tablet Exam Exam Date and Time: April 28, 2022 1028 Height,Weight and Vital Signs: Height 5 ft 10 in Weight 120.202 kg Pertinent Lab Results Pertinent Lab Results: Laboratory Tests 04/09/22 04/09/22 14:53 14:53 WBC 7.2 Hgb 13.7 L Hct 43.1 Plt Count 184 Sodium 144 Potassium 4.3 Chloride 105 Carbon Dioxide 30 H BUN 10 Creatinine 0.82 Narrative Narrative: EKG 03/2022 Vent. Rate : 096 BPM ? ? Atrial Rate : 096 BPM ?? P-R Int : 126 ms? QRS Dur : 100 ms ? ? QT Int : 356 ms ? ? ? P-R-T Axes : 050 028 012 degrees ?? QTc Int : 449 ms ? Normal sinus rhythm Incomplete right bundle branch block Nonspecific T wave abnormality Abnormal ECG When compared with ECG of 16-OCT-2012 19:33, Incomplete right bundle branch block is now Present Nonspecific T wave abnormality is now Present Heart rate has increased Assessment and Plan Assessment Anesthesia Assessment: Chart Reviewed Final Anesthetic Review Family History of Problems with Anesthesia: No History of Problems with Anesthesia: No Documented by User: Renata Wagner MD 04/29/22 08:18 [facility] Active Problems Active Problems: All Active Problems (Updated 04/23/22 @ 13:46 by Ngoc Carr RN) Varicose veins of right lower extremity with inflammation (Acute) KYM (obstructive sleep apnea) (Acute). Uses CPAP machine Primary appendiceal adenocarcinoma (Acute) Diarrhea (Acute) Morbid obesity (Acute) Umbilical hernia (Acute) Obesity (BMI 30-39.9) (Acute) Dyslipidemia (Acute) HTN (hypertension) (Acute) Diabetic nephropathy associated with type 2 diabetes mellitus (Acute) Epidermal cyst (Acute) Diabetes type 2, controlled (Acute) Past Medical History Medical History Ambulates with cane Back pain due to injury Diabetes type 2, controlled Diabetic nephropathy associated with type 2 diabetes mellitus Dyslipidemia Epidermal cyst HTN (hypertension) Morbid obesity Obesity (BMI 30-39.9) Sleep apnea Umbilical hernia Family History Family History Father Heart disease Diabetes Mother Diabetes Heart disease Surgical History Surgical History H/O colonoscopy History of umbilical hernia repair (~01/08/22) Hx of removal of cyst S/P appendectomy Social History Social History Household Members: Significant Other Housing: House Are you a primary director of patient care to a significant other at home: No Do you presently have visiting nurse or other home services: No Alcohol intake: current Alcohol intake frequency: holidays/special occasions only Patient Tobacco Use Status: Never used Tobacco Use of substances other than those prescribed or required for medical reasons: No Are you DNR?: No Advance Directives: No Advance Directives Information Provided: Yes service: No Current occupational status: disabled Meds Allergies Allergy/AdvReac Type Severity Reaction Status Date / Time lisinopril [LISINOPRIL] Allergy Mild RASH Verified 04/16/22 15:08 Home Medications Medication Instructions Recorded Confirmed Last Taken Type atorvastatin 10 mg tablet 10 mg PO BEDTIME 10/22/20 04/23/22 03/26/22 History carvedilol 12.5 mg tablet 12.5 mg PO Q12H 10/22/20 04/23/22 03/26/22 History cholecalciferol (vitamin D3) 25 25 mcg PO DAILY 10/22/20 04/23/22 03/26/22 History mcg (1,000 unit) capsule losartan 50 mg tablet 50 mg PO DAILY 11/04/20 04/23/22 03/26/22 History trazodone 150 mg tablet 150 mg PO BEDTIME 11/04/20 04/23/22 03/26/22 History hydrochlorothiazide 25 mg tablet 25 mg PO DAILY 11/19/20 04/23/22 03/26/22 History buspirone 5 mg tablet 1 tab PO DAILY 01/04/22 04/23/22 03/26/22 History sertraline 100 mg tablet 1.5 tab PO DAILY 01/04/22 04/23/22 03/26/22 History dulaglutide 3 mg/0.5 mL 3 mg subcut FR@0900 03/27/22 04/23/22 03/26/22 History subcutaneous pen injector (Trulicity) topiramate 50 mg tablet (Topamax) 50 mg PO BID PRN Tremor(S) 03/27/22 04/23/22 Unknown History zolpidem 10 mg tablet 10 mg PO BEDTIME PRN Sleep 03/27/22 04/23/22 Unknown History oxycodone-acetaminophen 5 mg-325 1 tab PO Q4-6H PRN pain 04/13/22 04/23/22 Unknown History mg tablet Exam Height,Weight and Vital Signs: Height 5 ft 10 in Weight 120.202 kg Vital Signs Temp Pulse Resp BP Pulse Ox O2 Del Method 04/29/22 08:09 98.1 F 81 18 147/91 H 92 Room Air Pertinent Lab Results Pertinent Lab Results: Laboratory Tests 04/09/22 04/09/22 14:53 14:53 WBC 7.2 Hgb 13.7 L Hct 43.1 Plt Count 184 Sodium 144 Potassium 4.3 Chloride 105 Carbon Dioxide 30 H BUN 10 Creatinine 0.82 Lab Results 04/29/22 Range/Units 07:58 POC Glucose 93 (60-115) mg/dL Airway Mallampati Class: III TM Dist: >3cm Neck ROM: Full Loose/Missing/Broken Teeth: Yes (Broken molar bottom right) Heart: RRR Lungs: CTAB Assessment and Plan Assessment Anesthesia Assessment: Anesthesia Plan Discussed Final Anesthetic Review NPO: Yes ASA Class: III Final Preanesthetic Review: No Changes in Pt Med Stat, Meds/Allgs Chart Reviewed, Consent Obtained/Reviewed and Anes Risks/Benef Reviewed Patient Risk: Intermediate Procedure Risk: Low Assessment/Block/Sedation in SS: Assess/Block/Sedation-SS Anesthetic Plan Anesthetic Plan: GA and MAC: Disposition: Standard PACU
[2022-04-29 08:06] LABS: Glucose, Whole Blood 93 mg/dL (60-115)
[2022-04-29 08:09] VITALS: BP 147/91; PULSE 81; RESP 18; TEMP 36.7; O2SAT 92
[2022-04-29] MEDS: Lactated Ringers 1,000 ML 100 ML IVCONT (08:13)
--- NOTE | 2022-04-29 08:16 | MHC.SHP ---
Pre-Procedural Eval Section A Date of Service: 04/29/22 The History & Physical has been completed within 30 days and I have reviewed it.: Yes Section B Chief Complaint: malignant neoplasm of appendix Allergies: Allergies Allergy/AdvReac Type Severity Reaction Status Date / Time lisinopril [LISINOPRIL] Allergy Mild RASH Verified 04/16/22 15:08 Plan Diagnosis/Plan: Unchanged I have reviewed the history and physical and performed a pertinent physical examination on my patient. No changes have occurred unless specified.
--- NOTE | 2022-04-29 08:42 | P.OP_ITS ---
Operative Note Operative Note Date of Service: 04/29/22 Narrative: Procedure: Colonoscopy Indication: Appendiceal adenoca, r/o synchronous lesions Endoscopist: Jil Robles MD Anesthesia Provider: Dr Sullivan Anesthesia type: General Anesthesia Instrument: Olympus [id number]-[id number] Consent: Indication, risks vs benefits, and alternatives were discussed with the patient who gave written informed consent to proceed. Monitoring: EKG, pulse, pulse oximetry and blood pressure were monitored throughout the procedure. Medications: Please see anesthesia flowsheet. Procedure: The patient was brought to the procedure room and electively intubated. He was then placed in the left lateral decubitus position. IV medications were administered by the anesthesia provider in attendance. A digital rectal exam was performed which was normal. The colonoscope was then inserted through the anus and advanced through the colon to the cecum at 75 cm. Mucosa was carefully examined under high definition white light as the instrument was slowly withdrawn in a retrograde panoramic fashion. Retroflexion was performed in rectum. The procedure was not difficult. There were no immediate obvious complications. The quality of the prep was BBPS: 3+3+3 = excellent Withdrawal time 38 minutes. Limitations: No limitations. Findings: Mucosa: There was a small focus of edema and nodularity with normal pit pattern on white light and NBI in proximal ascending colon. Due to the proximity with appendiceal orifice mass, cold forceps biopsies were taken. Protruding lesions: * A villous appearing semi-pedunculated 20 mm polyp was seen protruding out of t he appendiceal orifice. Cold forceps biopsies were taken. * 1 sessile polyp of size 2 mm in cecum. Single piece cold snare polypectomy was performed. The polyp was completely removed and retrieved. * 1 sessile polyp of size 4 mm in sigmoid colon. Single piece cold snare polypectomy was performed. The polyp was completely removed and retrieved. * 2 sessile polyp of size 4-6 mm in rectum. Single piece cold snare polypectomy was performed. The polyps were completely removed and retrieved. * Medium internal hemorrhoids without stigmata of recent bleeding. Impression: 1. 20 mm polyp/mass overlying the appendiceal orifice (biopsy) 2. Nodularity in ascending colon (biopsy) 3. Total of 4 polyps removed from cecum, sigmoid colon and rectum. 3. Internal hemorrhoids Recommendations: - Follow path results. - Oncologic resection as per Dr Alfonso - Repeat colonoscopy in 1 year after the R hemicolectomy.
[2022-04-29 09:50] VITALS: BP 119/80; PULSE 74; RESP 16; TEMP 37.3; O2SAT 98
[2022-04-29 10:05] VITALS: BP 143/80; PULSE 69; RESP 16; TEMP 36.3; O2SAT 93
[2022-04-29 10:20] VITALS: BP 140/89; PULSE 71; RESP 16; TEMP 36.4; O2SAT 93
== END 2022-04-29 11:04 | disposition home or self-care (01) ==
PROVIDERS: PCP Internal Medicine; Visit Provider Internal Medicine
PROC: 0DJD8ZZ Inspection of Lower Intestinal Tract, Via Natural or Artificial Opening Endoscopic (ICD-10-PCS; CPT 45378; principal; 2022-04-29 08:30)
DX: C18.1 Malignant neoplasm of appendix (principal); R19.7 Diarrhea, unspecified; K63.5 Polyp of colon; K64.8 Other hemorrhoids; I10 Essential (primary) hypertension; E78.5 Hyperlipidemia, unspecified; E11.21 Type 2 diabetes mellitus with diabetic nephropathy; G47.33 Obstructive sleep apnea (adult) (pediatric); E66.01 Morbid (severe) obesity due to excess calories; Z68.38 Body mass index [BMI] 38.0-38.9, adult; Z79.899 Other long term (current) drug therapy; Z79.84 Long term (current) use of oral hypoglycemic drugs; Z88.8 Allergy status to other drugs, medicaments and biological substances; K62.1 Rectal polyp
CPT/HCPCS: 45385; 45380; 82947; 88305; J3010

== ENCOUNTER → 2022-05-10 14:15 | Outpatient (BNVA) | payer MEDICAID, SELFPAY | PROVIDERS: PCP Internal Medicine; Visit Provider Surgery | DX: C18.1 Malignant neoplasm of appendix (principal) | CPT/HCPCS: 99202 ==

== ENCOUNTER → 2022-05-12 10:37 | Outpatient (BNVA) | payer MEDICAID, SELFPAY | PROVIDERS: PCP Internal Medicine; Visit Provider Internal Medicine | DX: C18.1 Malignant neoplasm of appendix (principal); Z86.010 Personal history of colon polyps | CPT/HCPCS: 99212 ==

== ENCOUNTER → 2022-05-19 10:05 | Outpatient (BNVA) | payer MEDICAID, SELFPAY | PROVIDERS: PCP Internal Medicine; Referring Provider Surgery; Visit Provider Dietitian, Registered | DX: E66.9 Obesity, unspecified (principal) | CPT/HCPCS: 97802 ==

== ENCOUNTER 2022-06-01 16:00 | Inpatient (IN) | payer MEDICAID, SELFPAY ==
[2022-05-19 12:20] VITALS: BP 130/77; PULSE 66; RESP 16; O2SAT 97; BMI 38.4
--- NOTE | 2022-05-19 12:37 | P.CONAN_ITS ---
Documented by User: Cheryl Ferrara NP 05/19/22 12:50 HPI - Anesthesia Eval Consult details Narrative: 56yo M for Right Hand assist laparoscopic colon resection, possible open Right eye red, swollen. Seen in urgent care 05/18/22 and rx'd eye drops. Unsure name. Instructed to inform Dr Norton week of surgery if not resolved. s/p lap appy 03/2022 with GA-ETT 7.5 PMFSH Active Problems Active Problems: All Active Problems (Updated 05/19/22 @ 12:35 by Jordana Chavez, RN) Varicose veins of right lower extremity with inflammation (Acute) KYM (obstructive sleep apnea) (Acute) Primary appendiceal adenocarcinoma (Acute) Diarrhea (Acute) Morbid obesity (Acute) Umbilical hernia (Acute) Obesity (BMI 30-39.9) (Acute) Dyslipidemia (Acute) HTN (hypertension) (Acute) Diabetic nephropathy associated with type 2 diabetes mellitus (Acute) Epidermal cyst (Acute) Diabetes type 2, controlled (Acute) Past Medical History Medical History Ambulates with cane Back pain due to injury Diabetes type 2, controlled Diabetic nephropathy associated with type 2 diabetes mellitus Dyslipidemia Epidermal cyst Eye inflammation HTN (hypertension) Morbid obesity Obesity (BMI 30-39.9) Sleep apnea Umbilical hernia Family History Family History Father Diabetes Heart disease Mother Diabetes Heart disease Other No family history of cancer Family history of problems with anesthesia: No Surgical History Surgical History H/O colonoscopy History of umbilical hernia repair (~01/08/22) Hx of removal of cyst S/P appendectomy History of Problems with Anesthesia: No Social History Social History Household Members: Significant Other Housing: House Are you a primary career representative to a significant other at home: No Do you presently have visiting nurse or other home services: Yes (Seth Cash sets up medications in Lock box) Alcohol intake: current Alcohol intake frequency: holidays/special occasions only Patient Tobacco Use Status: Never used Tobacco Use of substances other than those prescribed or required for medical reasons: No Have you been hit, kicked, punched, or otherwise hurt by someone within the past year? If so, by whom?: No Do you feel safe in your current relationship?: Yes Do you have thoughts of harming others: None Do you have a plan to hurt others: No Plan Do you have the means to hurt others: No Recently lost weight without trying: No Eating poorly because of decreased appetite: No service: No Current occupational status: disabled Narrative Narrative: No recent illness No CP/SOB with > 4 mets FBS ~ 115 Meds Allergies Allergy/AdvReac Type Severity Reaction Status Date / Time lisinopril [LISINOPRIL] Allergy Mild RASH Verified 05/27/22 10:13 Home Medications Medication Instructions Recorded Confirmed Last Taken Type atorvastatin 10 mg tablet 10 mg PO BEDTIME 10/22/20 05/27/22 03/26/22 History carvedilol 12.5 mg tablet 12.5 mg PO Q12H 10/22/20 05/27/22 03/26/22 History cholecalciferol (vitamin D3) 25 25 mcg PO DAILY 10/22/20 05/27/22 03/26/22 History mcg (1,000 unit) capsule losartan 50 mg tablet 50 mg PO DAILY 11/04/20 05/27/22 03/26/22 History trazodone 150 mg tablet 150 mg PO BEDTIME 11/04/20 05/27/22 03/26/22 History hydrochlorothiazide 25 mg tablet 25 mg PO DAILY 11/19/20 05/27/22 03/26/22 History buspirone 5 mg tablet 1 tab PO DAILY 01/04/22 05/27/22 03/26/22 History sertraline 100 mg tablet 1.5 tab PO BEDTIME 01/04/22 05/27/22 03/26/22 History dulaglutide 3 mg/0.5 mL 3 mg subcut FR@0900 03/27/22 05/27/22 03/26/22 History subcutaneous pen injector (Trulicity) topiramate 50 mg tablet (Topamax) 50 mg PO BID PRN Tremor(S) 03/27/22 05/27/22 Unknown History zolpidem 10 mg tablet 10 mg PO BEDTIME PRN Sleep 03/27/22 05/27/22 Unknown History Exam Exam Date and Time: May 19, 2022 1237 Height,Weight and Vital Signs: Height 5 ft 10 in Weight 121.563 kg Last Vital Signs Pulse 66 05/19/22 12:20 Resp 16 05/19/22 12:20 BP 130/77 05/19/22 12:20 Pulse Ox 97 05/19/22 12:20 O2 Del Method 05/19/22 12:20 Pertinent Lab Results Pertinent Lab Results: Laboratory Tests 04/09/22 04/09/22 14:53 14:53 WBC 7.2 Hgb 13.7 L Hct 43.1 Plt Count 184 Sodium 144 Potassium 4.3 Chloride 105 Carbon Dioxide 30 H BUN 10 Creatinine 0.82 Lab Results 04/29/22 Range/Units 07:58 POC Glucose 93 (60-115) mg/dL Narrative Narrative: EKG 03/2022 Vent. Rate : 096 BPM ? ? Atrial Rate : 096 BPM ?? P-R Int : 126 ms? QRS Dur : 100 ms ? ? QT Int : 356 ms ? ? ? P-R-T Axes : 050 028 012 degrees ?? QTc Int : 449 ms ? Normal sinus rhythm Incomplete right bundle branch block Nonspecific T wave abnormality Abnormal ECG When compared with ECG of 16-OCT-2012 19:33, Incomplete right bundle branch block is now Present Nonspecific T wave abnormality is now Present Heart rate has increased Airway Mallampati Class: II TM Dist: >3cm Neck ROM: Full Loose/Missing/Broken Teeth: Yes (Broken molar bottom right) Heart: RRR Lungs: CTAB Assessment and Plan Assessment Anesthesia Assessment: Anesthesia Plan Discussed and PAT Visit Final Anesthetic Review Family History of Problems with Anesthesia: No History of Problems with Anesthesia: No Documented by User: Beatriz Chow MD 06/01/22 10:54 [facility] Past Medical History Medical History Ambulates with cane Back pain due to injury Diabetes type 2, controlled Diabetic nephropathy associated with type 2 diabetes mellitus Dyslipidemia Epidermal cyst Eye inflammation HTN (hypertension) Morbid obesity Obesity (BMI 30-39.9) Sleep apnea Umbilical hernia Family History Family History Father Diabetes Heart disease Mother Diabetes Heart disease Other No family history of cancer Surgical History Surgical History H/O colonoscopy History of umbilical hernia repair (~01/08/22) Hx of removal of cyst S/P appendectomy Social History Social History Household Members: Significant Other Housing: House Are you a primary career representative to a significant other at home: No Do you presently have visiting nurse or other home services: Yes (Seth Cash sets up medications in Lock box) Alcohol intake: current Alcohol intake frequency: holidays/special occasions only Patient Tobacco Use Status: Never used Tobacco Use of substances other than those prescribed or required for medical reasons: No Have you been hit, kicked, punched, or otherwise hurt by someone within the past year? If so, by whom?: No Do you feel safe in your current relationship?: Yes Do you have thoughts of harming others: None Do you have a plan to hurt others: No Plan Do you have the means to hurt others: No Recently lost weight without trying: No Eating poorly because of decreased appetite: No service: No Current occupational status: disabled Meds Allergies Allergy/AdvReac Type Severity Reaction Status Date / Time lisinopril [LISINOPRIL] Allergy Mild RASH Verified 05/27/22 10:13 Home Medications Medication Instructions Recorded Confirmed Last Taken Type atorvastatin 10 mg tablet 10 mg PO BEDTIME 10/22/20 05/27/22 03/26/22 History carvedilol 12.5 mg tablet 12.5 mg PO Q12H 10/22/20 05/27/22 03/26/22 History cholecalciferol (vitamin D3) 25 25 mcg PO DAILY 10/22/20 05/27/22 03/26/22 History mcg (1,000 unit) capsule losartan 50 mg tablet 50 mg PO DAILY 11/04/20 05/27/22 03/26/22 History trazodone 150 mg tablet 150 mg PO BEDTIME 11/04/20 05/27/22 03/26/22 History hydrochlorothiazide 25 mg tablet 25 mg PO DAILY 11/19/20 05/27/22 03/26/22 History buspirone 5 mg tablet 1 tab PO DAILY 01/04/22 05/27/22 03/26/22 History sertraline 100 mg tablet 1.5 tab PO BEDTIME 01/04/22 05/27/22 03/26/22 History dulaglutide 3 mg/0.5 mL 3 mg subcut FR@0900 03/27/22 05/27/22 03/26/22 History subcutaneous pen injector (Trulicity) topiramate 50 mg tablet (Topamax) 50 mg PO BID PRN Tremor(S) 03/27/22 05/27/22 Unknown History zolpidem 10 mg tablet 10 mg PO BEDTIME PRN Sleep 03/27/22 05/27/22 Unknown History Exam Airway Mallampati Class: III Assessment and Plan Assessment Anesthesia Assessment: Chart Reviewed Final Anesthetic Review ASA Class: III Final Preanesthetic Review: Meds/Allgs Chart Reviewed, Consent Obtained/Reviewed and Anes Risks/Benef Reviewed Patient Risk: Intermediate Procedure Risk: Intermediate Anesthetic Plan Anesthetic Plan: GA Disposition: Standard PACU
[2022-06-01] VITALS (19 sets, daily range): BP systolic 110–136; BP diastolic 64–84; PULSE 84–99; RESP 11–18; TEMP 36.1–36.4; O2SAT 94–100
--- NOTE | ~2022-06-01 | US_ITS ---
EXAMINATION: US RETROPERITONEAL LIMITED (RENAL ONLY) examination is limited due to patient's body habitus. CLINICAL INFORMATION: Acute renal failure rule out obstruction.. COMPARISON: CT scan of the abdomen from 04/14/2022 TECHNIQUE: Renal ultrasound FINDINGS: RIGHT KIDNEY: 10.4 x 6.4 x 6 point cm (SAG x AP x TRV). The kidney is normal in size, contour, and echogenicity. Renal cortical thickness is normal. No calculi or focal parenchymal lesions. No hydronephrosis. LEFT KIDNEY: 8.3 x 6.1 x 6.2 cm (SAG x AP x TRV). The kidney is normal in size, contour, and echogenicity. Renal cortical thickness is normal. No calculi or focal parenchymal lesions. No hydronephrosis. There is incidental findings of right lower quadrant loculated free fluid in dilated loops of bowel in the left lower quadrant US/US renal BI IMPRESSION: Limited study revealed unremarkable kidneys. Loculated fluid in right lower quadrant and dilated loops of bowel.
--- NOTE | ~2022-06-01 | XR_ITS ---
EXAMINATION: XR CHEST CLINICAL INFORMATION: Shortness of breath. COMPARISON: 06/06/2022 chest radiograph. TECHNIQUE: Frontal view of the chest was obtained. FINDINGS: Low lung volumes and evaluation. Mild bibasilar linear markings and opacification are seen. The upper lung meza are clear. The heart and mediastinal structures are unremarkable. XR/XR chest 1V IMPRESSION: Mild bibasilar opacities, component which may be projectional from low lung volumes. Small bilateral pleural effusions and associated atelectasis cannot be excluded.
--- NOTE | ~2022-06-01 | XR_ITS ---
EXAMINATION: XR chest 1V, XR KUB CLINICAL INFORMATION: Reason for Exam sob COMPARISON: 06/04/2022 TECHNIQUE: Portable AP view of the chest 2 views of the abdomen FINDINGS: Low lung volumes with bibasilar streaky opacities, likely subsegmental atelectasis. Trace bilateral pleural effusions suspected. No pneumothorax. Heart size and pulmonary vascularity within normal limits for technique. Gaseous distention of multiple loops of small bowel within the midabdomen. No pneumatosis. Skin rita present anteriorly. XR/XR KUB IMPRESSION: * Low lung volumes with small bilateral pleural effusions and bibasilar subsegmental atelectasis. * Gaseous distention of the stomach and small bowel is nonspecific and could reflect ileus or obstruction.
--- NOTE | ~2022-06-01 | XR_ITS ---
EXAMINATION: XR chest 1V, XR KUB CLINICAL INFORMATION: Reason for Exam sob COMPARISON: 06/04/2022 TECHNIQUE: Portable AP view of the chest 2 views of the abdomen FINDINGS: Low lung volumes with bibasilar streaky opacities, likely subsegmental atelectasis. Trace bilateral pleural effusions suspected. No pneumothorax. Heart size and pulmonary vascularity within normal limits for technique. Gaseous distention of multiple loops of small bowel within the midabdomen. No pneumatosis. Skin rita present anteriorly. XR/XR chest 1V IMPRESSION: * Low lung volumes with small bilateral pleural effusions and bibasilar subsegmental atelectasis. * Gaseous distention of the stomach and small bowel is nonspecific and could reflect ileus or obstruction.
--- NOTE | ~2022-06-01 | CT_ITS ---
EXAMINATION: CT CHEST WITHOUT CONTRAST CT ABDOMEN AND PELVIS WITHOUT CONTRAST CLINICAL INFORMATION: Shortness of breath. Effusion. Status post right colectomy. Vomiting and abdominal distention. COMPARISON: CT of the abdomen and pelvis 03/27/2022, chest x-ray of 06/08/2022. TECHNIQUE: Multidetector volumetric CT imaging of the chest, abdomen and pelvis is acquired without intravenous contrast administration. Oral contrast was not administered. Postprocessing is performed at a dedicated workstation. Multiplanar reformatted images are submitted. This CT scan was performed using dose optimization techniques as appropriate to a performed exam including the following: *Automated exposure control *Adjustment of mA and/or kV according to patient size (this includes techniques or standardized protocols for targeted exams were dose is matched to indication/reason for exam; i.e. extremities or head) *Use of iterative reconstruction technique. DLP: 244 mGy-cm. (CT chest) 995 mGy-cm. (CT abdomen and pelvis) FINDINGS: CHEST: There is asymmetrical moderate elevation of the right hemidiaphragm. Bilateral lower lobe consolidations are noted with small lingular consolidation. No discrete pulmonary nodule is seen. Trace right pleural effusion. No left pleural effusion. No significant thyroid nodule is seen. No evidence of pathologically enlarged mediastinal or hilar adenopathy. Moderate calcifications of the left anterior descending coronary artery. Cardiac size is normal. Central pulmonary arteries and aorta are normal in caliber. No pericardial effusion. Trachea and central bronchi are well patent. Bilateral mild gynecomastia. Trachea and central bronchi are well patent. No axillary adenopathy. No evidence of pneumothorax. ABDOMEN AND PELVIS: The liver is normal in size, shape, contour and attenuation. Small perihepatic free fluid is noted. The gallbladder is physiologically distended. No evidence of radiopaque gallstones. No concerning obvious pericholecystic inflammatory changes are seen. Noncontrast spleen, adrenal glands and pancreas are unremarkable. The kidneys are normal in size, shape and attenuation. No evidence of radiopaque urinary tract calculi, hydroureteronephrosis or perinephric stranding. Urinary bladder is underdistended and therefore not optimally evaluated. The prostate is mildly prominent in size. Coarse prostatic calcifications are noted. Seminal vesicles are normal. Post-surgical changes of right hemicolectomy are seen with ileocolic anastomosis in the right hemiabdomen. On the right lateral aspect of the anastomosis in the right paracolic gutter there is a large peripherally enhancing, somewhat bilobed, fluid collection approximately measuring 18.3 x 9.3 x 8.7 cm in maximum length, AP and transverse dimensions respectively. As seen on sagittal view the collection has a somewhat curvilinear shape. A small amount of air is noted within this collection superiorly. Additional smaller foci are noted within the collection. The stomach is distended with fluid. Multiple small bowel loops are mildly dilated and fluid-filled. Distal most small bowel loops in the vicinity of and at the anastomosis are relatively decompressed. Developing small bowel obstruction is a concern. No evidence of intestinal pneumatosis. The descending colon and rectosigmoid colon is decompressed and grossly unremarkable. Transverse colon is normal in caliber containing air and fluid. No evidence of thickening of the wall of the colon. Omental and mesenteric fat stranding is noted in the right hemiabdomen in the vicinity of the surgical site as well as more inferiorly. There is no evidence of pathologically enlarged lymph nodes. The aortoiliac vessels are normal in caliber. Cutaneous rita are noted over the anterior abdominal wall in the midline. Mild anasarca. OSSEOUS STRUCTURES: No acute or suspicious osseous lesions are noted in the chest, abdomen and pelvis. Degenerative changes are noted at multiple levels in the visualized spine. There are changes of diffuse idiopathic skeletal hyperostosis. CT/CT abdomen pelvis wo IV con IMPRESSION: 1. Asymmetrical moderate elevation of the right hemidiaphragm. Bilateral lower lobe and lingular consolidations may represent atelectasis and/or pneumonic consolidations. Trace right pleural effusion. No left pleural effusion. 2. Post-surgical changes of right hemicolectomy. A large peripheral enhancing fluid collection in the vicinity of the surgical site in the right hemiabdomen. Multiple internal air foci consistent with abscess collection. Fistulous communication with the adjacent bowel is thought to be less likely. 3. Distended fluid-filled stomach and multiple small bowel loops with relative decompression of the distal small bowel loops in the vicinity of the enterocolic anastomosis in the right hemiabdomen. The findings are concerning for a developing small bowel obstruction.
--- NOTE | ~2022-06-01 | XR_ITS ---
EXAMINATION: XR CHEST CLINICAL INFORMATION: NG tube placement COMPARISON: 06/09/2022 TECHNIQUE: Frontal view of the chest was obtained. FINDINGS: Enteric tube terminates in the stomach. Right PICC line terminates near the cavoatrial junction. Lung volumes are low. Streaky basilar opacities. No dense consolidation. Central vascular prominence without overt edema. No effusion. No pneumothorax. The cardiomediastinal silhouette is within normal limits. XR/XR chest 1V IMPRESSION: 1. Enteric tube terminates in the stomach. 2. Central vascular prominence without overt edema. Streaky basilar opacities favor atelectasis.
--- NOTE | ~2022-06-01 | CT_ITS ---
PROCEDURE: CT GUIDED DRAINAGE, PERITONEAL ABSCESS CLINICAL INFORMATION: Right-sided abdominal abscess post right colectomy. COMPARISON: Previous CT of the abdomen and pelvis from yesterday. TECHNIQUE: Procedure and risks and benefits including bleeding, infection and injury to the bowel are discussed with the patient and informed consent was obtained. The patient was positioned in the supine position. Limited axial images through the abdomen were obtained. The right lateral abdomen was prepped and draped in the usual sterile fashion. The skin and soft tissues were anesthetized with 1% lidocaine plain. A 5 Kazakh Yueh needle, access to the fluid collection in the right lateral abdomen was obtained. Fecal appearing fluid was aspirated. Findings were discussed with Dr. Norton by telephone who requested drain placement. An 035 guidewire was advanced through the 5 Kazakh Yueh needle into the collection. Following serial dilatation, a 10.2 Kazakh pigtail drainage catheter was positioned in the collection. 1 L of fecal-appearing fluid was aspirated. Specimen was sent for Gram stain and culture. Conscious sedation was provided by a registered nurse under my direct supervision. Patient received 0.5 mg of Versed and 25 mcg of fentanyl intravenously during the procedure. Total sedation time was 35 minutes. Conscious sedation was provided by a registered nurse under my direct supervision. This CT examination was performed using dose optimization techniques as appropriate, variously including the following: *Automated exposure control *Adjustment of mA and/or kV according to patient size (this includes techniques or standardized protocols for targeted exams where dose is matched to indication/reason for exam; i.e. extremities or head) *Use of iterative reconstruction technique DLP: 474 mGy-cm FINDINGS: There is a large fluid collection along the right lateral abdomen and right lower quadrant that was targeted for drainage. Postprocedure imaging demonstrates significant interval decrease in size in the collection. CT/CT drain peritoneum IMPRESSION: CT-guided right lower quadrant drainage.
--- NOTE | ~2022-06-01 | XR_ITS ---
EXAMINATION: XR CHEST CLINICAL INFORMATION: Shortness of breath COMPARISON: Chest x-ray 01/18/2009 TECHNIQUE: Frontal view of the chest was obtained. FINDINGS: Slight elevation right hemidiaphragm. Lung volumes are slightly low. Mild hazy right basilar opacity likely mild atelectasis. Slightly indistinct lateral right costophrenic sulcus equivocal for trace pleural effusion. No other focal airspace opacity. No pneumothorax. Normal cardiomediastinal silhouette and pulmonary vascularity. No acute osseous injury. XR/XR chest 1V IMPRESSION: 1. Low lung volumes with mild right basilar atelectasis. 2. Equivocal trace right basilar pleural effusion. 3. No evidence of pulmonary edema or airspace consolidation.
--- NOTE | ~2022-06-01 | XR_ITS ---
EXAMINATION: XR CHEST CLINICAL INFORMATION: Nasogastric tube placement. COMPARISON: 06/08/2022 chest radiographs TECHNIQUE: Frontal view of the chest was obtained. FINDINGS: Support devices: Interval placement of enteric tube with tip overlying of the antropyloric region of the stomach. Persistent bibasilar opacities in the lungs. The upper lung meza are clear. No pneumothorax. The heart and mediastinal structures are unremarkable. XR/XR chest 1V IMPRESSION: 1. Enteric tube tip is seen distally in the gastric lumen and the antropyloric region. 2. Persistent bibasilar opacities in the lungs without significant change.
--- NOTE | ~2022-06-01 | NM_ITS ---
EXAMINATION: PULMONARY PERFUSION STUDY CLINICAL INFORMATION: Shortness of breath, elevated d-dimer. COMPARISON: No previous lung scan is available for comparison. A radiograph of the chest dated 06/08/2022, the same date as this lung scan, is available for comparison. TECHNIQUE: Following the intravenous administration of 4.0 mCi Tc-99m MAA an 8-view perfusion study was performed using a dual detector gamma scintillation camera. No ventilation images were obtained. FINDINGS: Perfusion images: No segmental perfusion defects are present. The right hemidiaphragm is mildly elevated. There is mild heterogeneity present in the right lung but no focal anatomic appearing perfusion defects are present. NM/NM pul perfusion IMPRESSION: Very low probability of pulmonary embolism.
--- NOTE | ~2022-06-01 | CT_ITS ---
EXAMINATION: CT ABDOMEN AND PELVIS WITHOUT CONTRAST CLINICAL INFORMATION: Right-sided abscess/bowel perforation COMPARISON: Previous CT scans June 08 and 06/09/2022 TECHNIQUE: Multidetector volumetric imaging was performed from the superior aspect of the liver through the pubic symphysis. Sagittal and coronal reformatted images were obtained on the technologist's workstation. Subsequently, the existing drainage catheter was hand aspirated. Approximately 150 mL of the colon. Fluid was aspirated. The drainage catheter was attached to a MARY bulb drain. This CT examination was performed using dose optimization techniques as appropriate, variously including the following: *Automated exposure control *Adjustment of mA and/or kV according to patient size (this includes techniques or standardized protocols for targeted exams where dose is matched to indication/reason for exam; i.e. extremities or head) *Use of iterative reconstruction technique DLP: 1363 mGy-cm FINDINGS: LUNG BASES: There is elevation of the right hemidiaphragm and atelectasis or small infiltrate at the right lung base. The left lung base is clear. There is no pleural effusion. LIVER, GALLBLADDER, AND BILIARY TREE: The liver is normal in size, shape, and attenuation. No focal hepatic lesion or biliary ductal dilatation is present. The gallbladder is unremarkable with no evidence of radiopaque gallstones, gallbladder wall thickening, or obvious pericholecystic inflammatory changes. PANCREAS: Unremarkable. SPLEEN: Unremarkable. ADRENAL GLANDS: Unremarkable. KIDNEYS AND URETERS: The kidneys are normal in size, shape, and attenuation. No hydronephrosis, hydroureter, or calculi seen. No perinephric stranding. BLADDER: Unremarkable. GASTROINTESTINAL TRACT: There is interval decrease in the large fluid collection in the right lateral abdomen. There is satisfactory position of drainage catheter in the right lower lateral abdomen. There is a small amount of residual fluid and air. There are postsurgical changes following right colectomy. There are very dilated fluid and contrast filled loops of small bowel. There is a caliber change with narrowing of the distal small bowel proximal to the enterocolic anastomosis in the right upper quadrant. Small bowel ileus and partial small bowel obstruction at the anastomosis should be considered. This does not appear appreciably changed from 06/08/2022 exam. The appendix has been removed. The stomach is distended. ABDOMINAL WALL: Small left inguinal hernia containing fat. LYMPH NODES: Normal. VASCULAR: Unremarkable. PELVIC VISCERA: Unremarkable. OSSEOUS STRUCTURES: There are degenerative changes of the spine. CT/CT abdomen pelvis wo IV con IMPRESSION: Interval decrease in size in the fluid collection in the right lateral abdomen/paracolic gutter. There is a small amount of residual fluid and air surrounding the existing drainage catheter. This was hand aspirated with approximately 150 mL of fluid was removed and drainage catheter was attached to a MARY bulb. No new collection. Dilated small bowel. There is narrowing of the distal small bowel proximal to the anterior colic anastomosis in the right upper quadrant. Ileus and partial small bowel obstruction should be considered. This does not appear appreciably changed from 06/08/2022 exam. Fleischner guidelines were followed.
[2022-06-01 08:11] LABS: IDNOW Serial# 16C4AD1C
[2022-06-01 08:12] LABS: COVID-19 Test Negative (Negative)
[2022-06-01] MEDS: Lactated Ringers 1,000 ML 100 ML IVCONT ×2 (08:18→18:49)
[2022-06-01 10:14] LABS: Glucose, Whole Blood 109 mg/dL (60-115)
--- NOTE | 2022-06-01 10:38 | MHC.SHP ---
Pre-Procedural Eval Section A Date of Service: 06/01/22 The patient is an INPATIENT: No Changes since office visit: No Cold of Flu in the past 2 weeks, No New Medical Problems, No Changes in Medication and No Patient answered all questions The History & Physical has been completed within 30 days and I have reviewed it.: Yes Section B Chief Complaint: Malignant neoplasm of appendix Allergies: Allergies Allergy/AdvReac Type Severity Reaction Status Date / Time lisinopril [LISINOPRIL] Allergy Mild RASH Verified 05/27/22 10:13 Plan I have reviewed the history and physical and performed a pertinent physical examination on my patient. No changes have occurred unless specified.
[2022-06-01] MEDS: cefoTEtan disodium 2 GM in 0.9 % Sodium Chloride 50 ML IV (11:15)
[2022-06-01 14:06] LABS: Base Excess Bedside Calculated 2 mmol/L (-3-3); Glucose, i-STAT 172 mg/dL (60-115); HCO3 Bedside Calculated 28 mmol/L (22-26); Hematocrit Bedside 37 %PCV (42-52); Hemoglobin Bedside 12.6 g/dL (14.0-18.0); Potassium Bedside 3.5 mmol/L (3.3-5.1); SO2 Bedside Calculated 91 %; Sodium Bedside 141 mmol/L (135-145); TCO2 Bedside 30 mmol/L (24-29); pCO2 Bedside 55 mmhg (35-48); pH Bedside 7.32 (7.35-7.45); pO2 Bedside 69 mmhg (83-108)
--- NOTE | 2022-06-01 15:46 | P.OP_ITS ---
Operative Note Operative Note Date of Service: 06/01/22 Narrative: Preop diagnosis: Adenocarcinoma of the appendix Postop diagnosis: The same, full path report pending Procedure: Attempted hand assisted laparoscopic right colon resection, converted to open right colon resection, with control of bleeding ileo colic pedicle surgeon: Lit Norton MD 1St assistants: Dr. Adis Bates for intraop consult Dr. Antolin Bradshaw MD The patient is a 56-year-old male who had undergone laparoscopic appendectomy last March, for acute appendicitis. The final path report however revealed adenocarcinoma of the appendix. Was therefore referred to me for more formal right colon resection. He understood the technique of hand assisted laparoscopic right colon resection and open resection. He was aware of the risks including but not limited to bleeding, infections, anastomotic leak, as well as the benefits alternatives. He was brought to the operating room and placed supine under general anesthesia via endotracheal tube. A Stanton catheter was inserted. The abdomen is prepped and draped this was sterile fashion. A surgical time-out was done .The patient received Cefotan 2 g IV preoperatively I made a short midline incision using a blade 15. Just above the umbilicus. This was carried down with electrocautery through the full-thickness of the skin subcutaneous fat down to the fascia. Fascia was incised. The peritoneum was entered. We proceeded to position an Ramesh wound retractor and past the GelPort. We insufflated through this using a 10 mm port. We used laparoscopic visualization using an angled 10 mm 30 degree scope through this port to place a 5/12 mm port in the epigastric area and a benign Fort just at the left upper quadrant. The patient was placed in head- down and [id number] position. We proceeded to then reflect the bowel loops away from the right side of the abdomen using left hand. The patient was morbidly obese so we had difficulty with visualization in view of the small space in view of the amount of fat intraperitoneally.. I was eventually able to feel and examine the cecum.. There was note of induration just at the previous appendiceal stump. There was fibrotic changes in this area from the previous appendectomy. I gently divided the attachments along the white line of Toldt using the LigaSure and this was carried down through the distal right colon. I then continued to dissect the hepatocolic ligaments of hepatic flexure. This was also done without LigaSure. Again we encountered significant difficulty with visualization in view of stated factors above. Proceeded to continue to dissect the cecum as well as the terminal ileum using the LigaSure as well to mobilize this by dividing the peritoneal attachments of the mesentery we could not adequately visualize the of the transverse colon because of the amount of omentum, and very thick mesentery. I for proceeded to remove the GelPort and see if we good pull up the entire right colon through this incision with the amount of to be had just achieved We could not achieve significant length of mesentery to allow delivery of the cecum. We could not visualize the rest of the peritoneal attachments to contin ued to mobilize safely. I therefore decided at this 0.2 converted to open. I extended the incision superiorly and inferiorly. We applied the Bookwalter retractors to achieve good exposure. I proceeded to then carefully pull up the cecum and divided the rest of the attachments at the peritoneum which were able to see better at this time. This allowed us to have better mobilization of the entire right colon and hepatic flexure as well as the proximal transverse. Able to identify the hepatocolic attachments clearly and see the good planes. I was able to therefore mobilized the entire right colon mesentery and visualize the duodenum. The duodenum was detected once this was visualized so this was are medial limit of the dissection I continued to mobilize the hepatic flexure as well as the terminal ileum until was able to bring up the entire right colon starting from the terminal ileum all the way to the proximal transverse colon. Despite the large incision, we had limited length of the mesentery in view of foreshortening from the previous surgery as well as from obesity . I identified my dissection in the distal ileum and created a mesenteric window here. I divided this with a NAVEEN 60 mm stapler. I also identified my point of transection in the transverse colon and a mesenteric window was also created and I used the NAVEEN 60 mm stapler to divide this I then proceeded to divide the mesenteric attachments starting from the terminal ileum using the LigaSure. I alternated this with transection of the mesenteric attachments of the proximal transverse colon. At 1 point, I was dividing the mesentery of the cecum using the LigaSure and immediately we encountered bleeding from what appeared to be the pedicle. I could not trace this down because of the amount of blood and poor visualization. I therefore applied packings to control this. I therefore consulted the vascular surgeon Dr. Bates to scrub in for control of this vessel. He was able to identify the source and applied clips on the bleeding ileocolic artery and vein and were able to eventually achieve good control. This part of the procedure had taken as an extended period of time With bleeders of the ileocolic pedicle controlled,I then continued to divide the rest of the mesentery from both proximal distal until was able to transect the entire right colon along with attached mesentery. This was sent as a specimen. Examined the entire mesentery for bleeding and this appeared hemostatic I proceeded to do the ileo colonic anastomosis. I aligned the terminal ileum as well as the remaining transverse colon together. I opened up the apex of each staple line to enter the lumen. The mesenteric margins and inserted each arm of the NAVEEN 60 mm stapler through this. I fired the stapler on this anti mesenteric margin to create our [id number] anastomosis. I closed the enterotomy seeing a TA 60 mm stapler to complete the anastomosis. I reinforced the crotch with seromuscular lumbar-type Dexon 3-0 sutures to release in from the staple line. The anastomosed limbs appeared viable and not ischemic. I closed the mesenteric defect with a running Dexon 3-0 stitch . We copiously irrigated. Once hemostasis was confirmed, proceeded then position the omentum to cover the the anastmoses. I closed the fascia with a running Maxon 1 stitch. The skin was closed with skin rita. I infiltrated the incision with Marcaine 0.5% for postop NAVEEN. Dressings were applied. The procedure was then completed . The patient tolerated well. There were no immediate complications except for the bleeding from the ileocolic pedicle. Estimated blood loss about 1500 cc. The patient remained stable throughout the procedure. There was note of good urine output . The patient was extubated without difficulty and transferred to the recovery room with stable vital signs. Colon Resection Tumor location: Right colon and Hepatic flexure Extent of lymphovascular resection Right colon (cecum and ascending colon): terminal ileum, right colon all the way to the proximal transverse colon General Surg. - Synoptic Notes Colon Resection Tumor location: Right colon and Hepatic flexure Extent of Lymphovascular Resection: Right colon (cecum and ascending colon): terminal ileum, right colon all the way to the proximal transverse colon
--- OUTSIDE RECORDS SUMMARY | 2022-06-01 16:10 | XMS_ITS | Continuity of Care Document ---
:1965 Author Organization [facility] [place] Address [address] [place] [address]- Care Team Providers Name Role Phone Isaiah GONZALES, Vic Primary Care Physician Encounter 05/29/20 - 06/16/20 [facility] [place] [facility] [address] [place] [address]- [facility] Discharge Disposition: GOALS MET Allergies, Adverse Reactions, Alerts Substance Reaction Severity Status lisinopril itchy rash Active Immunizations Given and Recorded Vaccine Date Status Refusal Reason tetanus/diphtheria/pertussis, acel(Tdap) 05/22/20 Given pneumococcal 23-valent vaccine 07/04/15 Given influenza virus vaccine, inactivated 07/04/15 Given influ virus vac, H1N1, inactive(oldterm)1 09/22/09 Given diphtheria-tetanus toxoids (DT)2 05/07/09 Given FluLaval (oldterm)3 05/07/09 Given 1Admin Note: vis dmin Note: VIS GIVEN VIS DATE 07/02/083Admin Note: VIS GIVEN VIS DATE 03/25/09 Medications acetaminophen/butalbital/caffeine 325 mg-50 mg-40 mg oral tablet 1 tablet, By Mouth, Every 4 hours, 0 Refills, Maintenance, 01/06/17 13:13:32 Start Date: 01/06/17 Status: OrderedAmbien 10 mg oral tablet 1 tablet = 10 mg, By Mouth, Daily at bedtime, PRN for sleep, 0 Refills, Maintenance, 07/19/16 16:02:01, Tablet Start Date: 07/19/16 Status: OrderedamLODIPine 10 mg oral tablet 1 tablet = 10 mg, By Mouth, Daily, # 30 tablet, 0 Refills, Maintenance, 07/03/15 13:14:54, Tablet Start Date: 07/03/15 Status: Orderedatenolol 50 mg oral tablet 1 tablet = 50 mg, By Mouth, Daily, # 90 tablet, 0 Refills, Maintenance, Tablet Start Date: 04/21/10 Status: Orderedatorvastatin 10 mg oral tablet 1 tablet = 10 mg, By Mouth, Daily at bedtime, 0 Refills, Maintenance, 05/26/20 8:05:00 EDT, Tablet Start Date: 05/26/20 Status: OrderedCalcium Carbonate Tablet 650 mg, By Mouth, 3 times a day before meals, Refills 0, Maintenance, 05/26/20 8:05:00 EDT Start Date: 05/26/20 Status: Orderedcarvedilol 12.5 mg oral tablet 12.5 mg, 1, tablet, By Mouth, 2 times a day, Refills 0, Maintenance, 03/01/16 16:01:52 Start Date: 03/01/16 Status: Orderedcarvedilol 12.5 mg oral tablet 12.5 mg, 1, tablet, By Mouth, 2 times a day, Refills 0, Maintenance, 01/06/17 13:11:19 Start Date: 01/06/17 Status: OrderedchlorproMAZINE 50 mg oral tablet 1 tablet = 50 mg, By Mouth, 3 times a day, 0 Refills, Maintenance, 01/06/17 13:14:10 Start Date: 01/06/17 Status: OrderedCPAP Machine See Instructions, # 1 units, Maintenance, CPAP at pressure 19cm with medium Quattro mask with humidification and warming of air if needed, Obstructive Sleep Apnea, 10/28/09 14:36:57 Start Date: 10/28/09 Status: Orderedcyclobenzaprine 10 mg oral tablet 10 mg, 1, tablet, By Mouth, 3 times a day, Refills 0, Maintenance, 05/26/20 8:05:00 EDT Start Date: 05/26/20 Status: Orderedgabapentin 100 mg oral capsule 100 mg, 1, capsule, By Mouth, 3 times a day, PRN, # 90 capsule, Refills 0, Tot. Refills 0, Maintenance, Pain , Moderate, 05/28/20 14:40:00 EDT, Route to Pharmacy Electronically, [facility], 176, cm, 05/28/20 12:38:00 EDT, Height, 128.3... Start Date: 05/28/20 Stop Date: 06/28/20 Status: Orderedhydrochlorothiazide 12.5 mg oral capsule 1 capsule = 12.5 mg, By Mouth, Daily, # 30 capsule, 5 Refills, Maintenance, Capsule Start Date: 01/14/10 Status: OrderedLantus 100 u/ml subcutaneous solution = 40 units, Subcutaneous Injection, Daily at bedtime, # 10 mL, 0 Refills, Maintenance, 07/03/15 13:16:27, Solution Start Date: 07/03/15 Status: Orderedlosartan 50 mg oral tablet 50 mg, 1, tablet, By Mouth, Daily, Refills 0, Maintenance, 03/01/16 16:05:10 Start Date: 03/01/16 Status: Orderedmeclizine 25 mg oral tablet 1 tablet = 25 mg, By Mouth, 3 times a day, PRN as needed for dizziness, 0 Refills, Maintenance, 03/01/16 16:02:44 Start Date: 03/01/16 Status: OrderedMetformin Tablet = 1,000 mg, By Mouth, 2 times a day, 0 Refills, Maintenance, 07/03/15 13:17:00, Tablet Start Date: 07/03/15 Status: OrderedOzempic (1 mg dose) 2 mg/1.5 mL subcutaneous solution = 1 mg, Subcutaneous Injection, Every week, # 3 mL, 0 Refills, Maintenance, 05/23/20 17:49:00 EDT, Solution Start Date: 05/23/20 Status: OrderedOzempic (1 mg dose) 2 mg/1.5 mL subcutaneous solution = 1 mg, Subcutaneous Injection, Every week, # 3 mL, 0 Refills, Maintenance, 05/23/20 17:53:00 EDT, Solution Start Date: 05/23/20 Status: OrderedrisperiDONE 2 mg oral tablet 2 mg, 1, tablet, By Mouth, Daily, Refills 0, Maintenance, 07/19/16 16:03:37 Start Date: 07/19/16 Status: Orderedsertraline 50 mg oral tablet 1 tablet = 50 mg, By Mouth, Daily, 0 Refills, Maintenance, 03/01/16 16:04:29 Start Date: 03/01/16 Status: OrderedSumatriptan = 100 mg, By Mouth, Once, PRN Headache, 0 Refills, Maintenance, 07/03/15 13:17:33 Start Date: 07/03/15 Status: Orderedtopiramate 25 mg oral capsule 1 capsule = 25 mg, By Mouth, 1 tab 2x per week, 0 Refills, Maintenance, 03/01/16 16:03:36 Start Date: 03/01/16 Status: OrderedDavid See Instructions, # 1 Unknown, Maintenance, walker., 05/28/20 13:27:00 EDT, Supply, Dry Weight Start Date: 05/28/20 Status: OrderedZoloft 100 mg oral tablet 1 tablet = 100 mg, By Mouth, Daily, 0 Refills, Maintenance, 05/17/16 9:31:06 Start Date: 05/17/16 Status: OrderedZoloft 50 mg oral tablet 2 tablet = 100 mg, By Mouth, Daily, 0 Refills, Maintenance, 05/17/16 9:31:27 Start Date: 05/17/16 Status: Ordered Problem List Condition Effective Dates Status Health Status Informant Hypertension(Confirmed) Active Migraine(Confirmed) Active Sleep apnea(Confirmed) Active Social History Social History Type Response Smoking Status Never smoker entered on: 03/01/16 Sex
--- OUTSIDE RECORDS SUMMARY | 2022-06-01 16:10 | XMS_ITS | Continuity of Care Document ---
:1965 Author Organization [facility] Address [address] [place] [id number]- Care Team Providers Name Role Phone Vic Colon MD Primary Care Physician Encounter [facility] [place] Date(s): 05/22/20 - 05/28/[address] [address]- [facility] Encounter Diagnosis Head injury (Final) - 05/21/20 Discharge Disposition: A-D/C Home Attending Physician: Natalya Shields MD Admitting Physician: Natalya Shields MD Referring Physician: Not on Staff, Referring MD Allergies, Adverse Reactions, Alerts Substance Reaction Severity [...] 05/28/20 14:40:00 EDT, Route to Pharmacy Electronically, [facility], 176, cm, 05/28/20 12:38:00 EDT, Height, [...] 07/03/15 13:17:00, Tablet Start Date: 07/03/15 Status: OrderedoxyCODONE 5 mg oral tablet 5 mg, 1, tablet, By Mouth, Every 6 hours, PRN, # 15 tablet, Refills 0, Tot. Refills 0, Acute 06/04/20 14:40:00 EDT, Pain , Moderate, 05/28/20 14:39:00 EDT, Route to Pharmacy Electronically, [facility], Partial fill upon patient request... Start Date: 05/28/20 Stop Date: 06/04/20 Status: OrderedOzempic (1 mg dose) 2 mg/1.5 [...] Maintenance, 03/01/16 16:03:36 Start Date: 03/01/16 Status: OrderedTylenol 325 mg oral tablet 650 mg, 2, tablet, By Mouth, Every 4 hours, PRN, # 30 tablet, Refills 0, Tot. Refills 0, Acute 06/13/20 14:41:00 EDT, Pain , Mild, 05/28/20 14:41:00 EDT, Route to Pharmacy Electronically, [facility], 176, cm, 05/28/20 12:38:00 EDT, Hei... 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 FINDINGS: No fracture or dislocation. No joint effusion. No foreign body. IMPRESSION: No fracture or dislocation. WSN: [id number] Ordering Physician: Murray Russell Dictated By: Ja Cabrera MD Dictated Date/Time: 05/21/20 7:53 pm Reviewed By: Ja Cabrera MD Signed By: Ja Cabrera MD Signed Date/Time: 05/21/20 7:53 pm Transcribed By: MUNA Transcribed Date/Time: 05/21/20 7:52 pm Vital Signs Most recent to oldest 1 2 3 [Reference Range]: Height 176 cm 176 cm 176 cm (05/28/20 12:38 PM) (05/28/20 7:40 AM) (05/28/20 12:11 AM) Weight 128.3 kg 125 kg (05/22/20 8:00 PM) (05/21/20 6:43 PM) Oxygen Saturation [94-100 94 % 95 % 92 % %] (05/28/20 12:38 PM) (05/28/20 7:40 AM) *L* (05/28/20 12:11 AM) Pulse Rate [55-90 bpm] 89 bpm 80 bpm 86 bpm (05/28/20 12:38 PM) (05/28/20 7:40 AM) (05/28/20 12:11 AM) Body Mass Index 41.42 [18.5-24.99] *>HHI* (05/22/20 8:00 PM) Blood Pressure 135/93 mm Hg 110/80 mm Hg 102/60 mm Hg [90-138/55-84 mm Hg] (05/28/20 12:38 PM) (05/28/20 7:40 AM) ( 12:11 AM) Respiratory Rate [16-30 20 br/min 18 br/min 18 br/mi n br/min] (05/28/20 12:38 PM) (05/28/20 9:07 AM) (05/28/20 8:01 AM) Temperature [96.8-100.4 98 DegF 97.8 DegF 98.1 Deg F DegF] (05/28/20 12:38 PM) (05/28/20 7:40 AM) (05/28/20 12:11 AM) Liters per Minute 0 L/min 0 L/min 0 L/min (05/25/20 12:15 AM) (05/23/20 11:50 PM) (05/23/20 8:12 PM) Mode of Delivery (Oxygen) Room air Room air Room a ir (05/28/20 12:38 PM) (05/28/20 7:40 AM) (05/28/20 12:11 AM) Blood pressure sites Arm, left Arm, left Arm, right (05/28/20 12:38 PM) (05/28/20 7:40 AM) (05/28/20 12:11 AM) Temperature Route Temporal Temporal Temporal (05/28/20 12:38 PM) (05/28/20 7:40 AM) (05/28/20 12:11 AM) Dry Weight 128.3 kg (05/22/20 8:00 PM) Social History Social History Type Response Smoking Status Never smoker entered on: 03/01/16 Sex
--- OUTSIDE RECORDS SUMMARY | 2022-06-01 16:10 | XMS_ITS | Continuity of Care Document ---
:1965 Author Organization [address] [place] [id number]- Care Team Providers Name Role Phone Isaiah GONZALES, Vic Primary Care Physician Encounter [facility] [place] Date(s): 06/05/20 - 06/12/[address] [place] [id number]- [facility] Attending Physician: Boni Peguero MD Allergies, Adverse Reactions, Alerts Substance Reaction [...] 05/28/20 14:40:00 EDT, Route to Pharmacy Electronically, [facility], 176, cm, 05/28/20 12:38:00 EDT, Height, [...] 05/28/20 14:41:00 EDT, Route to Pharmacy Electronically, [facility], 176, cm, 05/28/20 12:38:00 EDT, Hei... Start Date: 05/28/20 Stop Date: 06/13/20 Status: OrderedWalker See Instructions, # 1 Unknown, Maintenance, walker., [...] Hypertension(Confirmed) Active Migraine(Confirmed) Active Sleep apnea(Confirmed) Active Vital Signs Most recent to oldest [Reference Range]: 1 Height 176 cm (06/05/20 1:30 PM) Pulse Rate [55-90 bpm] 100 bpm *H* (06/05/20 1:30 PM) Blood Pressure [90-138/55-84 mm Hg] 140/81 mm Hg *H* (06/05/20 1:30 PM) Respiratory Rate [16-30 br/min] 16 br/min (06/05/20 1:30 PM) Temperature [96.8-100.4 DegF] 98.9 DegF (06/05/20 1:30 PM) Blood pressure sites Arm, right (06/05/20 1:30 PM) Temperature Route Temporal (06/05/20 1:30 PM) Social History Social History Type Response Smoking Status Never smoker entered on: 03/01/16 Sex
[2022-06-01 16:30] LABS: Glucose, Whole Blood 124 mg/dL (60-115)
[2022-06-01] MEDS: HYDROmorphone HCl 0.5 MG/0.5 ML SYRINGE 0.25 MG IVPUSH ×4 (16:36→18:10)
[2022-06-01 16:49] LABS: Hematocrit 32.6 % (42.0-52.0); Hemoglobin 10.3 g/dl (14.0-18.0); Mean Corpuscular HGB Conc 31.6 g/dl (31.0-36.0); Mean Corpuscular Hemoglobin 27.6 pg (27.0-33.0); Mean Corpuscular Volume 87.4 fL (80.0-98.0); Mean Platelet Volume 9.7 fL (9.4-12.4); Platelet Count 101 X10*3/uL (160-400); Red Blood Count 3.73 X10*6/uL (4.60-5.80); Red Cell Distribution Width 13.8 % (11.0-16.0)
[2022-06-01 17:02] LABS: Anion Gap 11 (12-20); Blood Urea Nitrogen 12 mg/dL (9-16); Calcium 7.4 mg/dL (8.4-10.2); Carbon Dioxide 27 mmol/L (22-29); Chloride 109 mmol/L (96-108); Estimated Glomerular Filt Rate > 60; Glucose Random 160 mg/dL (60-115); Potassium 3.6 mmol/L (3.3-5.1); Sodium 143 mmol/L (135-145)
--- NOTE | 2022-06-01 18:03 | PM.EVENT ---
Event Note Date of Service: 06/02/22 Event Note: seen postop status post right colon resection, open, procedure in view of difficulty and bleeding from ileocolic pedicle stable vital signs hemoglobin 10 postop good urine output pain management incentive spirometry discussed with his Emily
[2022-06-01 19:59] LABS: Glucose, Whole Blood 119 mg/dL (60-115)
[2022-06-01 19:59] LABS: Glucose, Whole Blood 130 mg/dL (60-115)
[2022-06-01] MEDS: carvediloL 12.5 MG TABLET PO (21:07)
--- NOTE | 2022-06-01 21:53 | P.CONHOSP_ITS ---
History of Present Illness Data of Consult Service Date: 06/01/22 Primary Care Provider: Daniella Colon MD HPI This is a 56-year-old male with past medical history of hypertension, diabetes, sleep apnea on CPAP, with recently diagnosed adenocarcinoma of the appendix when he presented on 03/27 with abdominal pain, at that time CT scan of the abdomen showed acute appendicitis, patient underwent laparoscopic appendectomy with drain placement and right pericolic gutter, he was found to have perforated, necrotic appendicitis, with free fluid in the abdomen with right pericolic abscess. 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 Today patient underwent collectomy. We were asked to see pt in management of HTN and diabetes. Pt is sleeping in bed, no acute complaints. Pt at bedside reports that he usually takes truilicity and usually his glucose is well controlled. she would like his CPAP ordered for bedtime. Review of Systems Review of Systems: Yes all other systems are reviewed and are negative [facility] Medical History Ambulates with cane Back pain due to injury Diabetes type 2, controlled Diabetic nephropathy associated with type 2 diabetes mellitus Dyslipidemia Epidermal cyst Eye inflammation HTN (hypertension) Morbid obesity Obesity (BMI 30-39.9) Sleep apnea Umbilical hernia Family History Father Diabetes Heart disease Mother Diabetes Heart disease Other No family history of cancer Surgical History H/O colonoscopy History of umbilical hernia repair (~01/08/22) Hx of removal of cyst S/P appendectomy Social History Household Members: Significant Other Housing: House Are you a primary home care and home health aides teacher to a significant other at home: No Do you presently have visiting nurse or other home services: Yes (Seth Cash sets up medications in Lock box) Alcohol intake: current Alcohol intake frequency: holidays/special occasions only Patient Tobacco Use Status: Never used Tobacco Use of substances other than those prescribed or required for medical reasons: No Currently Displaying Signs/Symptoms of Drug Intoxication Withdrawal: No Have you been hit, kicked, punched, or otherwise hurt by someone within the past year? If so, by whom?: No Spiritual Healthcare Practices: no [facility] Healthcare Practices: no Cultural Healthcare Practices: no Are you DNR?: No Advance Directives: No (will bring dos) Advance Directives Information Provided: No Advance Directives on File: No Recently lost weight without trying: No Nutrition Risks: No Nutritional Risk Poor oral hygiene: No service: No Current occupational status: disabled Meds Allergies Allergy/AdvReac Type Severity Reaction Status Date / Time lisinopril [LISINOPRIL] Allergy Mild RASH Verified 05/27/22 10:13 Active Medications: Current Medications Albuterol Sulfate (Albuterol Sulfate (0.083%) 2.5 Mg/3 Ml Vial.Neb) 2.5 mg INHALE ONCE PRN PRN Reason: Wheezing Carvedilol (Carvedilol 12.5 Mg Tablet) 12.5 mg PO BID [facility]; Protocol Last Admin: 06/01/22 21:07 Dose: 12.5 mg Fentanyl (Fentanyl Citrate/Pf 100 Mcg/2 Ml Vial) 50 mcg IVPUSH Q5M PRN; Protocol PRN Reason: Pain, Severe (Pain Scale 7-10) Fentanyl (Fentanyl Citrate/Pf 100 Mcg/2 Ml Vial) 25 mcg IVPUSH Q5M PRN; Protocol PRN Reason: Pain, Moderate (Pain Scale 4-6 Heparin Sodium (Porcine) (Heparin Sodium,Porcine 5,000 Unit/Ml Vial) 5,000 unit SUBCUT Q8H [facility] Lactated Ringer's (Lr) 1,000 mls @ 100 mls/hr IVCONT .Q10H [facility] Last Admin: 06/01/22 18:49 Dose: 100 mls/hr Acetaminophen (Ofirmev) 1,000 mg in 100 mls @ 400 mls/hr IV Q6H [facility] Stop: 06/02/22 04:14 Last Infusion: 06/01/22 18:39 Dose: Infused Morphine Sulfate (Morphine Sulfate 4 Mg/Ml Cartridge) 4 mg IVPUSH Q3H PRN; Protocol PRN Reason: Pain, Severe (Pain Scale 7-10) Ondansetron HCl (Ondansetron Hcl 4 Mg/2 Ml Vial) 4 mg IVPUSH ONCE PRN PRN Reason: Nausea and Vomiting Ondansetron HCl (Ondansetron Hcl 4 Mg/2 Ml Vial) 4 mg IVPUSH Q8H PRN PRN Reason: Nausea Oxycodone HCl (Oxycodone Hcl Immed Release 5 Mg Tablet) 10 mg PO ONCE PRN PRN Reason: Pain, Severe (Pain Scale 7-10) Oxycodone HCl (Oxycodone Hcl Immed Release 5 Mg Tablet) 5 mg PO ONCE PRN PRN Reason: Pain, Severe (Pain Scale 7-10) Oxycodone HCl (Oxycodone Hcl Immed Release 5 Mg Tablet) 10 mg PO Q4H PRN PRN Reason: Pain, Moderate (Pain Scale 4-6 Sodium Chloride (0.9 % Sodium Chloride Flush 3 Ml Syringe) 3 ml IVFLUSH [facility] Last Admin: 06/01/22 18:38 Dose: Not Given Sodium Chloride (0.9 % Sodium Chloride Flush 3 Ml Syringe) 3 ml IVFLUSH [facility] Home Medications Medication Instructions Recorded Confirmed Last Taken Type atorvastatin 10 mg tablet 10 mg PO BEDTIME 10/22/20 05/27/22 03/26/22 History carvedilol 12.5 mg tablet 12.5 mg PO Q12H 10/22/20 05/27/22 03/26/22 History cholecalciferol (vitamin D3) 25 25 mcg PO DAILY 10/22/20 05/27/22 03/26/22 History mcg (1,000 unit) capsule losartan 50 mg tablet 50 mg PO DAILY 11/04/20 05/27/22 03/26/22 History trazodone 150 mg tablet 150 mg PO BEDTIME 11/04/20 05/27/22 03/26/22 History hydrochlorothiazide 25 mg tablet 25 mg PO DAILY 11/19/20 05/27/22 03/26/22 History buspirone 5 mg tablet 1 tab PO DAILY 01/04/22 05/27/22 03/26/22 History sertraline 100 mg tablet 1.5 tab PO BEDTIME 01/04/22 05/27/22 03/26/22 History dulaglutide 3 mg/0.5 mL 3 mg subcut FR@0900 03/27/22 05/27/22 03/26/22 History subcutaneous pen injector (Trulicity) topiramate 50 mg tablet (Topamax) 50 mg PO BID PRN Tremor(S) 03/27/22 05/27/22 Unknown History zolpidem 10 mg tablet 10 mg PO BEDTIME PRN Sleep 03/27/22 05/27/22 Unknown History Physical Exam Vital Signs and Narrative: Vital Signs: Last Vital Signs Temp 97.3 F 06/01/22 18:42 Pulse 99 06/01/22 18:42 Resp 16 06/01/22 18:42 BP 118/75 06/01/22 18:42 Pulse Ox 97 06/01/22 18:42 O2 Del Method 06/01/22 18:42 O2 Flow Rate 3.0 06/01/22 18:42 BMI result Body Mass Index 38.4 Const: Other: pt sleeping comfortably, no acute ocmplaint General: cooperative and no acute distress Orientation/consciousness: patient oriented x3 Eyes: General: appearance normal, both eyes and all related structures Pupils: Equal, round and reactive pupils present Resp: Effort & Inspection: normal respiratory effort Auscultation: clear to auscultation bilaterally Cardio: Rate: regular rate Rhythm: regular rhythm GI: Other: distended abd Skin: General skin exam: no rashes or lesions noted Neuro: General: patient oriented x3 Cranial nerves: Yes Equal, round and reactive pupils present Cognition (Neuro): normal cognition Extrem: General: Yes normal to inspection and Yes no pedal edema Results Labs CBC and Chem 7: 06/02/22 06:16 06/01/22 16:42 Labs: Laboratory Results - last 24 hr 05/19/22 06/01/22 06/01/22 13:06 07:50 08:10 POC Hgb (Calc) POC Hct MCV MCH MCHC RDW Plt Count MPV Absolute Nucleated RBC Nucleated RBC % (auto) POC Std Base Excess POC O2 Sat (Calc) POC ABG pO2 POC ABG Total CO2 POC Capillary pH POC Capillary pCO2 POC Cap HCO3 (Calc) POC Sodium POC Potassium Anion Gap Estim Creat Clear Calc Estimated GFR POC Glucose 109 Random Glucose Calcium COVID-19 (GLORY) Negative COVID-19 Clin Com See Note Blood Type O Positive Antibody Screen NEGATIVE Crossmatch See Detail 06/01/22 06/01/22 06/01/22 14:01 16:26 16:42 POC Hgb (Calc) 12.6 L POC Hct 37 L MCV 87.4 MCH 27.6 MCHC 31.6 RDW 13.8 Plt Count 101 L D MPV 9.7 Absolute Nucleated RBC 0.000 Nucleated RBC % (auto) 0.0 POC Std Base Excess 2 POC O2 Sat (Calc) 91 POC ABG pO2 69 L POC ABG Total CO2 30 H POC Capillary pH 7.32 L POC Capillary pCO2 55 H POC Cap HCO3 (Calc) 28 H POC Sodium 141 POC Potassium 3.5 Anion Gap Estim Creat Clear Calc Estimated GFR POC Glucose 172 H 124 H Random Glucose Calcium COVID-19 (GLORY) COVID-19 [facility] Blood Type Antibody Screen Crossmatch 06/01/22 06/01/22 06/01/22 16:42 18:46 19:55 POC Hgb (Calc) POC Hct MCV MCH MCHC RDW Plt Count MPV Absolute Nucleated RBC Nucleated RBC % (auto) POC Std Base Excess POC O2 Sat (Calc) POC ABG pO2 POC ABG Total CO2 POC Capillary pH POC Capillary pCO2 POC Cap HCO3 (Calc) POC Sodium POC Potassium Anion Gap 11 L Estim Creat Clear Calc 110.0 Estimated GFR > 60 POC Glucose 119 H 130 H Random Glucose 160 H D Calcium 7.4 L D COVID-19 (GLORY) COVID-19 [facility] Blood Type Antibody Screen Crossmatch Assessment and Plan (1) HTN (hypertension): Qualifiers: Hypertension type: essential hypertension Qualified Code(s): I10 - Essential (primary) hypertension Status: Acute (2) Diabetes type 2, controlled: Qualifiers: Diabetes mellitus senior living insulin use: without terminal supervisor use Diabetes mellitus complication status: with kidney complications Diabetes mellitus complication detail: with microalbuminuria Qualified Code(s): E11.29 - Type 2 diabetes mellitus with other diabetic kidney complication; R80.9 - Proteinuria, unspecified Status: Acute (3) KYM (obstructive sleep apnea): Status: Acute (4) Primary appendiceal adenocarcinoma: Status: Acute Plan This is a 56 yo M with a PMH of HTN, DM, KYM on CPAP, morbid obesity, migranes, depression who is admitted under the general surgical services for resection of appendiceal adenoCa. Medical consulted for management of DM and HTN 1. DM on trulicity at home, on hold use sliding scale for now 2. HTN - BP on soft side - will hold anbtihypertensives at this time - resume bp meds was bp more normalized 3. KYM - continue CPAP at night 4. Appendiceal adenoCa - s/p R colon resection - mgmt per gen surg. will follow along thank you
[2022-06-01] MEDS: Morphine Sulfate 4 MG/ML CARTRIDGE IVPUSH (22:45)
[2022-06-02] VITALS (10 sets, daily range): BP systolic 121–143; BP diastolic 68–78; PULSE 94–105; RESP 15–17; TEMP 36.7–37.2; O2SAT 89–98; BMI 38.4
[2022-06-02] MEDS: 0.9 % Sodium Chloride Flush 3 ML SYRINGE IVFLUSH ×2 (00:22)
[2022-06-02] MEDS: oxyCODONE HCl Immed Release 5 MG TABLET 10 MG PO (00:46)
[2022-06-02] MEDS: Morphine Sulfate 4 MG/ML CARTRIDGE IVPUSH ×5 (03:32→20:22)
[2022-06-02] MEDS: Lactated Ringers 1,000 ML 100 ML IVCONT ×3 (03:45→22:34)
[2022-06-02] MEDS: ondansetron HCL 4 MG/2 ML VIAL IVPUSH (06:23)
[2022-06-02 07:00] LABS: Mean Corpuscular HGB Conc 31.3 g/dl (31.0-36.0); Mean Corpuscular Hemoglobin 27.8 pg (27.0-33.0); Mean Corpuscular Volume 88.9 fL (80.0-98.0); Mean Platelet Volume 10.7 fL (9.4-12.4); Platelet Count 128 X10*3/uL (160-400); White Blood Count 7.3 X10*3/uL (4.8-10.8)
[2022-06-02 07:31] LABS: Glucose, Whole Blood 163 mg/dL (60-115)
--- NOTE | 2022-06-02 08:03 | PHA.MEDREC ---
Pharmacy Consult ? Medication Reconciliation Pharmacy has reviewed the medication reconciliation completed by nursing.
[2022-06-02] MEDS: Insulin Lispro 100 UNIT/ML 3 ML VIAL SUBCUT (08:16)
[2022-06-02] MEDS: carvediloL 12.5 MG TABLET PO ×2 (08:17→20:27)
--- NOTE | 2022-06-02 08:38 | PM.PNGS ---
Subjective Subjective Date of Service: 06/03/22 Interval history: c/o incisional pain says he passed some flatus this AM no events overnight Physical Exam Vital Signs: Vital Signs: Last Vital Signs Temp 99.0 F 06/02/22 07:53 Pulse 103 H 06/02/22 07:53 Resp 17 06/02/22 08:17 BP 126/76 06/02/22 07:53 Pulse Ox 98 06/02/22 07:53 O2 Del Method 06/02/22 07:53 O2 Flow Rate 3 06/02/22 03:48 BMI result Body Mass Index 38.4 Const: General: comfortable and no acute distress Resp: Effort & Inspection: normal respiratory effort Cardio: Rate: regular rate GI: Palpation (GI): Soft to palpation and no guarding Objective Data Active Medications Albuterol Sulfate (Albuterol Sulfate (0.083%) 2.5 Mg/3 Ml Vial.Neb) 2.5 mg INHALE ONCE PRN PRN Reason: Wheezing Carvedilol (Carvedilol 12.5 Mg Tablet) 12.5 mg PO BID [facility]; Protocol Last Admin: 06/02/22 08:17 Dose: 12.5 mg Documented By: COTEMA Dextrose (Dextrose 50 % 25 Gm/50 Ml Syringe) 25 gm IVPUSH Q15M PRN; Protocol PRN Reason: per Hypoglycemia Standing Ord. Fentanyl (Fentanyl Citrate/Pf 100 Mcg/2 Ml Vial) 50 mcg IVPUSH Q5M PRN; Protocol PRN Reason: Pain, Severe (Pain Scale 7-10) Fentanyl (Fentanyl Citrate/Pf 100 Mcg/2 Ml Vial) 25 mcg IVPUSH Q5M PRN; Protocol PRN Reason: Pain, Moderate (Pain Scale 4-6 Glucose (Glucose Gel 15 Gm Gel..Gram.) 15 gm PO Q15M PRN; Protocol PRN Reason: per Hypoglycemia Standing Ord. Heparin Sodium (Porcine) (Heparin Sodium,Porcine 5,000 Unit/Ml Vial) 5,000 unit SUBCUT Q8H [facility] Lactated Ringer's (Lr) 1,000 mls @ 100 mls/hr IVCONT .Q10H [facility] Last Admin: 06/02/22 03:45 Dose: 100 mls/hr Documented By: EDITH Insulin Human Lispro (Insulin Lispro 100 Unit/Ml 3 Ml Vial) 0 unit SUBCUT QIDACHS [facility]; Protocol Last Admin: 06/02/22 08:16 Dose: 2 unit Documented By: IMELDA Morphine Sulfate (Morphine Sulfate 4 Mg/Ml Cartridge) 4 mg IVPUSH Q3H PRN; Protocol PRN Reason: Pain, Severe (Pain Scale 7-10) Last Admin: 06/02/22 08:17 Dose: 4 mg Documented By: COTLONDON Ondansetron HCl (Ondansetron Hcl 4 Mg/2 Ml Vial) 4 mg IVPUSH ONCE PRN PRN Reason: Nausea and Vomiting Ondansetron HCl (Ondansetron Hcl 4 Mg/2 Ml Vial) 4 mg IVPUSH Q8H PRN PRN Reason: Nausea Last Admin: 06/02/22 06:23 Dose: 4 mg Documented By: NATAL Oxycodone HCl (Oxycodone Hcl Immed Release 5 Mg Tablet) 5 mg PO ONCE PRN PRN Reason: Pain, Severe (Pain Scale 7-10) Oxycodone HCl (Oxycodone Hcl Immed Release 5 Mg Tablet) 10 mg PO Q4H PRN PRN Reason: Pain, Moderate (Pain Scale 4-6 Sodium Chloride (0.9 % Sodium Chloride Flush 3 Ml Syringe) 3 ml IVFLUSH [facility] Last Admin: 06/02/22 08:08 Dose: Not Given Documented By: IMELDA Non-Admin Reason: IV Running Sodium Chloride (0.9 % Sodium Chloride Flush 3 Ml Syringe) 3 ml IVFLUSH [facility] Last Admin: 06/02/22 08:08 Dose: Not Given Documented By: IMELDA Non-Admin Reason: IV Running Labs CBC & Chem 7: 06/02/22 06:16 06/01/22 16:42 Labs: Laboratory Results - last 24 hr 05/19/22 06/01/22 06/01/22 13:06 08:10 14:01 POC Hgb (Calc) 12.6 L POC Hct 37 L MCV MCH MCHC RDW Plt Count MPV Absolute Nucleated RBC Nucleated RBC % (auto) POC Std Base Excess 2 POC O2 Sat (Calc) 91 POC ABG pO2 69 L POC ABG Total CO2 30 H POC Capillary pH 7.32 L POC Capillary pCO2 55 H POC Cap HCO3 (Calc) 28 H POC Sodium 141 POC Potassium 3.5 Anion Gap Estim Creat Clear Calc Estimated GFR POC Glucose 109 172 H Random Glucose Calcium Blood Type O Positive Antibody Screen NEGATIVE Crossmatch See Detail 06/01/22 06/01/22 06/01/22 16:26 16:42 16:42 POC Hgb (Calc) POC Hct MCV 87.4 MCH 27.6 MCHC 31.6 RDW 13.8 Plt Count 101 L D MPV 9.7 Absolute Nucleated RBC 0.000 Nucleated RBC % (auto) 0.0 POC Std Base Excess POC O2 Sat (Calc) POC ABG pO2 POC ABG Total CO2 POC Capillary pH POC Capillary pCO2 POC Cap HCO3 (Calc) POC Sodium POC Potassium Anion Gap 11 L Estim Creat Clear Calc 110.0 Estimated GFR > 60 POC Glucose 124 H Random Glucose 160 H D Calcium 7.4 L D Blood Type Antibody Screen Crossmatch 06/01/22 06/01/22 06/02/22 18:46 19:55 06:16 POC Hgb (Calc) POC Hct MCV 88.9 MCH 27.8 MCHC 31.3 RDW 14.0 Plt Count 128 L D MPV 10.7 Absolute Nucleated RBC 0.000 Nucleated RBC % (auto) 0.0 POC Std Base Excess POC O2 Sat (Calc) POC ABG pO2 POC ABG Total CO2 POC Capillary pH POC Capillary pCO2 POC Cap HCO3 (Calc) POC Sodium POC Potassium Anion Gap Estim Creat Clear Calc Estimated GFR POC Glucose 119 H 130 H Random Glucose Calcium Blood Type Antibody Screen Crossmatch 06/02/22 07:27 POC Hgb (Calc) POC Hct MCV MCH MCHC RDW Plt Count MPV Absolute Nucleated RBC Nucleated RBC % (auto) POC Std Base Excess POC O2 Sat (Calc) POC ABG pO2 POC ABG Total CO2 POC Capillary pH POC Capillary pCO2 POC Cap HCO3 (Calc) POC Sodium POC Potassium Anion Gap Estim Creat Clear Calc Estimated GFR POC Glucose 163 H Random Glucose Calcium Blood Type Antibody Screen Crossmatch Procedures Date of Service Date of Service: 06/02/22 Progress Note: A&P Assessment and plan (1) Primary appendiceal adenocarcinoma: Status: Acute Assessment and Plan: s/p right colon resection had signficant blood loss intraop from ileocolic pedicle Hg stable looks comfortable pain mgt keep Stanton in for today OOB to chair instructed on incentive spiromtery Time Spent With Patient Time: Total time spent is greater than 50% in coordination of care (as documented) at patient's floor/unit and/or counseling patient: Quality Stroke Does the patient have a stroke diagnosis?: No VTE Prior VTE?: No VTE Risk Level:: Medical - moderate - high VTE Device Contraindication: N/A - Device Ordered VTE Drug Contraindication: N/A - Med Ordered
--- NOTE | 2022-06-02 10:05 | HO.PM.IMPN ---
Subjective Subjective Date of Service: 06/02/22 Interval History: seen and examined this AM is bedside pt reports pain is controlled denies cp or sob reports abdominal rumbling and thinks he is going to have a BM Review of Systems negative Physical Exam Vital Signs: Vital Signs: Last Vital Signs Temp 99.0 F 06/02/22 07:53 Pulse 103 H 06/02/22 07:53 Resp 17 06/02/22 08:17 BP 126/76 06/02/22 07:53 Pulse Ox 98 06/02/22 09:29 O2 Del Method 06/02/22 09:29 O2 Flow Rate 3 06/02/22 03:48 BMI result Body Mass Index 38.4 Const: Other: General - no acute distress, appears comfortable Cardiovascular - regular rate and rhythm, S1-S2 Lungs - normal respiratory effort, clear to auscultation bilaterally, no wheezing Abdomen - distended Extremities - no edema bilaterally Neuro - awake and alert, no focal deficits Objective Data Active Medications Albuterol Sulfate (Albuterol Sulfate (0.083%) 2.5 Mg/3 Ml Vial.Neb) 2.5 mg INHALE ONCE PRN PRN Reason: Wheezing Carvedilol (Carvedilol 12.5 Mg Tablet) 12.5 mg PO BID [facility]; Protocol Last Admin: 06/02/22 08:17 Dose: 12.5 mg Documented By: GENO.COTEMA Dextrose (Dextrose 50 % 25 Gm/50 Ml Syringe) 25 gm IVPUSH Q15M PRN; Protocol PRN Reason: per Hypoglycemia Standing Ord. Fentanyl (Fentanyl Citrate/Pf 100 Mcg/2 Ml Vial) 50 mcg IVPUSH Q5M PRN; Protocol PRN Reason: Pain, Severe (Pain Scale 7-10) Fentanyl (Fentanyl Citrate/Pf 100 Mcg/2 Ml Vial) 25 mcg IVPUSH Q5M PRN; Protocol PRN Reason: Pain, Moderate (Pain Scale 4-6 Glucose (Glucose Gel 15 Gm Gel..Gram.) 15 gm PO Q15M PRN; Protocol PRN Reason: per Hypoglycemia Standing Ord. Heparin Sodium (Porcine) (Heparin Sodium,Porcine 5,000 Unit/Ml Vial) 5,000 unit SUBCUT Q8H [facility] Lactated Ringer's (Lr) 1,000 mls @ 100 mls/hr IVCONT .Q10H [facility] Last Admin: 06/02/22 03:45 Dose: 100 mls/hr Documented By: EDITH Insulin Human Lispro (Insulin Lispro 100 Unit/Ml 3 Ml Vial) 0 unit SUBCUT [facility]; Protocol Last Admin: 06/02/22 08:16 Dose: 2 unit Documented By: IMELDA Morphine Sulfate (Morphine Sulfate 4 Mg/Ml Cartridge) 4 mg IVPUSH Q3H PRN; Protocol PRN Reason: Pain, Severe (Pain Scale 7-10) Last Admin: 06/02/22 08:17 Dose: 4 mg Documented By: IMELDA Ondansetron HCl (Ondansetron Hcl 4 Mg/2 Ml Vial) 4 mg IVPUSH ONCE PRN PRN Reason: Nausea and Vomiting Ondansetron HCl (Ondansetron Hcl 4 Mg/2 Ml Vial) 4 mg IVPUSH Q8H PRN PRN Reason: Nausea Last Admin: 06/02/22 06:23 Dose: 4 mg Documented By: EDITH Oxycodone HCl (Oxycodone Hcl Immed Release 5 Mg Tablet) 5 mg PO ONCE PRN PRN Reason: Pain, Severe (Pain Scale 7-10) Oxycodone HCl (Oxycodone Hcl Immed Release 5 Mg Tablet) 10 mg PO Q4H PRN PRN Reason: Pain, Moderate (Pain Scale 4-6 Sodium Chloride (0.9 % Sodium Chloride Flush 3 Ml Syringe) 3 ml IVFLUSH [facility] Last Admin: 06/02/22 08:08 Dose: Not Given Documented By: IMELDA Non-Admin Reason: IV Running Sodium Chloride (0.9 % Sodium Chloride Flush 3 Ml Syringe) 3 ml IVFSH [facility] Last Admin: 06/02/22 08:08 Dose: Not Given Documented By: IMELDA Non-Admin Reason: IV Running Labs CBC & Chem 7: 06/02/22 06:16 06/01/22 16:42 Labs: Laboratory Results - last 24 hr 05/19/22 06/01/22 06/01/22 13:06 08:10 14:01 POC Hgb (Calc) 12.6 L POC Hct 37 L MCV MCH MCHC RDW Plt Count MPV Absolute Nucleated RBC Nucleated RBC % (auto) POC Std Base Excess 2 POC O2 Sat (Calc) 91 POC ABG pO2 69 L POC ABG Total CO2 30 H POC Capillary pH 7.32 L POC Capillary pCO2 55 H POC Cap HCO3 (Calc) 28 H POC Sodium 141 POC Potassium 3.5 Anion Gap Estim Creat Clear Calc Estimated GFR POC Glucose 109 172 H Random Glucose Calcium Blood Type O Positive Antibody Screen NEGATIVE Crossmatch See Detail 06/01/22 06/01/22 06/01/22 16:26 16:42 16:42 POC Hgb (Calc) POC Hct MCV 87.4 MCH 27.6 MCHC 31.6 RDW 13.8 Plt Count 101 L D MPV 9.7 Absolute Nucleated RBC 0.000 Nucleated RBC % (auto) 0.0 POC Std Base Excess POC O2 Sat (Calc) POC ABG pO2 POC ABG Total CO2 POC Capillary pH POC Capillary pCO2 POC Cap HCO3 (Calc) POC Sodium POC Potassium Anion Gap 11 L Estim Creat Clear Calc 110.0 Estimated GFR > 60 POC Glucose 124 H Random Glucose 160 H D Calcium 7.4 L D Blood Type Antibody Screen Crossmatch 06/01/22 06/01/22 06/02/22 18:46 19:55 06:16 POC Hgb (Calc) POC Hct MCV 88.9 MCH 27.8 MCHC 31.3 RDW 14.0 Plt Count 128 L D MPV 10.7 Absolute Nucleated RBC 0.000 Nucleated RBC % (auto) 0.0 POC Std Base Excess POC O2 Sat (Calc) POC ABG pO2 POC ABG Total CO2 POC Capillary pH POC Capillary pCO2 POC Cap HCO3 (Calc) POC Sodium POC Potassium Anion Gap Estim Creat Clear Calc Estimated GFR POC Glucose 119 H 130 H Random Glucose Calcium Blood Type Antibody Screen Crossmatch 06/02/22 07:27 POC Hgb (Calc) POC Hct MCV MCH MCHC RDW Plt Count MPV Absolute Nucleated RBC Nucleated RBC % (auto) POC Std Base Excess POC O2 Sat (Calc) POC ABG pO2 POC ABG Total CO2 POC Capillary pH POC Capillary pCO2 POC Cap HCO3 (Calc) POC Sodium POC Potassium Anion Gap Estim Creat Clear Calc Estimated GFR POC Glucose 163 H Random Glucose Calcium Blood Type Antibody Screen Crossmatch Assessment and Plan (1) Primary appendiceal adenocarcinoma: Status: Acute Plan This is a 56 yo M with a PMH of HTN, DM, KYM compliant with CPAP, morbid obesity, migranes, depression who is admitted under the general surgical services s/p R colon resection for appendiceal adenoCa. Medical consult requested for co mgmt of chronic issues. 1. DM on trulicity at home, on hold use sliding scale for now 2. HTN coreg initiated and BP remains in the normotensive range hold hctz / losartan for today and monitor BP 3. KYM cpap at night 4. Appendiceal adenoCa - s/p R colon resection mgmt per gen surg. Will follow along. Quality Stroke Does the patient have a stroke diagnosis?: No VTE Prior VTE?: No VTE Risk Level:: Medical - moderate - high VTE Device Contraindication: N/A - Device Ordered VTE Drug Contraindication: N/A - Med Ordered
[2022-06-02 11:15] LABS: Glucose, Whole Blood 133 mg/dL (60-115)
[2022-06-02] MEDS: busPIRone HCl 5 MG TABLET PO (11:31)
--- NOTE | 2022-06-02 14:44 | HO.POSTANES ---
Post Anesthesia Evaluation Post Anesthesia Evaluation Vital Signs: Vital Signs Temp Pulse Resp BP Pulse Ox O2 Del Method O2 Flow Rate 06/02/22 11:43 98.1 F 99 17 143/74 H 97 Room Air 06/02/22 11:31 17 06/02/22 09:29 98 Room Air 06/02/22 08:17 17 06/02/22 07:53 99.0 F 103 H 15 126/76 98 Room Air 06/02/22 03:48 98.3 F 102 H 16 136/78 98 Nasal Cannula 3 Anesthesia: General Endotracheal-GETA Mental Status: Awake Pain Control: Satisfactory (incisional pain) Nausea/Vomiting: None Hydration: Adequate Anesthesia-Related Issues: No Anes. Related Issues
--- NOTE | 2022-06-02 15:51 | PM.EVENT ---
Event Note Date of Service: 06/02/22 Event Note: Seen on afternoon rounds Says he feels christiano Suero ordered Has been ambulating in the room Abdomen soft Await return of GI function Encouraged to get out of bed Pain management at bedside as well
[2022-06-02 16:39] LABS: Glucose, Whole Blood 131 mg/dL (60-115)
[2022-06-02] MEDS: Atorvastatin Calcium 10 MG TABLET PO (20:27)
[2022-06-02 21:10] LABS: Glucose, Whole Blood 133 mg/dL (60-115)
[2022-06-02] MEDS: Heparin Sodium,Porcine 5,000 UNIT/ML VIAL 5000 UNIT SUBCUT (22:31)
[2022-06-02] MEDS: traZODone HCL 50 MG TABLET 150 MG PO (22:31)
[2022-06-03] VITALS (8 sets, daily range): BP systolic 122–144; BP diastolic 62–87; PULSE 84–98; RESP 17–20; TEMP 36.2–37.3; O2SAT 95–98
[2022-06-03] MEDS: Morphine Sulfate 4 MG/ML CARTRIDGE IVPUSH ×5 (01:32→22:03)
[2022-06-03] MEDS: ondansetron HCL 4 MG/2 ML VIAL IVPUSH ×4 (01:46→22:03)
[2022-06-03] MEDS: Heparin Sodium,Porcine 5,000 UNIT/ML VIAL 5000 UNIT SUBCUT ×3 (06:40→22:02)
--- NOTE | 2022-06-03 07:28 | PC.NURSE ---
Assumed care of patient at this time.
[2022-06-03] MEDS: 0.9 % Sodium Chloride Flush 3 ML SYRINGE IVFLUSH ×3 (07:47→22:05)
[2022-06-03] MEDS: carvediloL 12.5 MG TABLET PO ×2 (07:47→22:02)
[2022-06-03] MEDS: busPIRone HCl 5 MG TABLET PO (07:47)
[2022-06-03 08:06] LABS: Glucose, Whole Blood 120 mg/dL (60-115)
--- NOTE | 2022-06-03 08:08 | PC.NURSE ---
vargas out at this time.
--- NOTE | 2022-06-03 08:46 | P.PNGS_ITS ---
Subjective Subjective Date of Service: 06/04/22 Interval history: Passed flatus and had bowel movements BMs yesterday afternoon with a little bit of blood Still sore on incision but says this is better today Tolerating clear liquids Physical Exam Vital Signs: Vital Signs: Last Vital Signs Temp 98.2 F 06/03/22 08:00 Pulse 95 06/03/22 08:00 Resp 17 06/03/22 08:00 BP 138/87 06/03/22 08:00 Pulse Ox 97 06/03/22 08:00 O2 Del Method 06/03/22 08:00 O2 Flow Rate 2 06/03/22 08:00 BMI result Body Mass Index 38.4 Const: Other: Has CPAP on General: comfortable and no acute distress Resp: Other: Has CPAP on Effort & Inspection: normal respiratory effort Cardio: Rate: regular rate GI: Other: Protuberant but soft, no guarding or rebound Objective Data Active Medications Albuterol Sulfate (Albuterol Sulfate (0.083%) 2.5 Mg/3 Ml Vial.Neb) 2.5 mg INHALE ONCE PRN PRN Reason: Wheezing Atorvastatin Calcium (Atorvastatin Calcium 10 Mg Tablet) 10 mg PO BEDTIME [facility] Last Admin: 06/02/22 20:27 Dose: 10 mg Documented By: EDITH Buspirone HCl (Buspirone Hcl 5 Mg Tablet) 5 mg PO DAILY [facility] Last Admin: 06/03/22 07:47 Dose: 5 mg Documented By: SELENE Carvedilol (Carvedilol 12.5 Mg Tablet) 12.5 mg PO BID [facility]; Protocol Last Admin: 06/03/22 07:47 Dose: 12.5 mg Documented By: SELENE Dextrose (Dextrose 50 % 25 Gm/50 Ml Syringe) 25 gm IVPUSH Q15M PRN; Protocol PRN Reason: per Hypoglycemia Standing Ord. Fentanyl (Fentanyl Citrate/Pf 100 Mcg/2 Ml Vial) 50 mcg IVPUSH Q5M PRN; Protocol PRN Reason: Pain, Severe (Pain Scale 7-10) Fentanyl (Fentanyl Citrate/Pf 100 Mcg/2 Ml Vial) 25 mcg IVPUSH Q5M PRN; Protocol PRN Reason: Pain, Moderate (Pain Scale 4-6 Glucose (Glucose Gel 15 Gm Gel..Gram.) 15 gm PO Q15M PRN; Protocol PRN Reason: per Hypoglycemia Standing Ord. Heparin Sodium (Porcine) (Heparin Sodium,Porcine 5,000 Unit/Ml Vial) 5,000 unit SUBCUT Q8H [facility] Last Admin: 06/03/22 06:40 Dose: 5,000 unit Documented By: SHERI Insulin Human Lispro (Insulin Lispro 100 Unit/Ml 3 Ml Vial) 0 unit SUBCUT QIDACHS [facility]; Protocol Last Admin: 06/03/22 07:59 Dose: Not Given Documented By: SELENE Non-Admin Reason: No Insulin Coverage Morphine Sulfate (Morphine Sulfate 4 Mg/Ml Cartridge) 4 mg IVPUSH Q3H PRN; Protocol PRN Reason: Pain, Severe (Pain Scale 7-10) Last Admin: 06/03/22 07:48 Dose: 4 mg Documented By: SELENE Ondansetron HCl (Ondansetron Hcl 4 Mg/2 Ml Vial) 4 mg IVPUSH Q8H PRN PRN Reason: Nausea Last Admin: 06/03/22 01:46 Dose: 4 mg Documented By: EDITH Oxycodone HCl (Oxycodone Hcl Immed Release 5 Mg Tablet) 5 mg PO ONCE PRN PRN Reason: Pain, Severe (Pain Scale 7-10) Oxycodone HCl (Oxycodone Hcl Immed Release 5 Mg Tablet) 10 mg PO Q4H PRN PRN Reason: Pain, Moderate (Pain Scale 4-6 Simethicone (Simethicone 80 Mg Tab.Chew) 80 mg PO QIDWMHS PRN PRN Reason: gassiness Sodium Chloride (0.9 % Sodium Chloride Flush 3 Ml Syringe) 3 ml IVFLUSH QSHIFT [facility] Last Admin: 06/03/22 07:47 Dose: 3 ml Documented By: SELENE Trazodone HCl (Trazodone Hcl 50 Mg Tablet) 150 mg PO BEDTIME [facility] Last Admin: 06/02/22 22:31 Dose: 150 mg Documented By: EDITH Labs CBC & Chem 7: 06/04/22 05:07 06/04/22 05:07 Labs: Laboratory Results - last 24 hr 06/02/22 06/02/22 06/02/22 11:10 16:32 19:53 POC Glucose 133 H 131 H 133 H 06/03/22 07:57 POC Glucose 120 H Procedures Date of Service Date of Service: 06/03/22 Progress Note: A&P Assessment and plan (1) Primary appendiceal adenocarcinoma: Status: Acute Assessment and Plan: Status post right colon resection Has passed flatus and BMs Full liquids today Continue to get out of bed and ambulate Pain management Looks well in room Time Spent With Patient Time: Total time spent is greater than 50% in coordination of care (as documented) at patient's floor/unit and/or counseling patient: Quality Stroke Does the patient have a stroke diagnosis?: No VTE Prior VTE?: No VTE Risk Level:: Medical - moderate - high VTE Device Contraindication: N/A - Device Ordered VTE Drug Contraindication: N/A - Med Ordered
--- NOTE | 2022-06-03 11:07 | MHC.CM.PN ---
CHARISSE MET WITH PT AND HIS S/O/MANAGER PROGRESSIVE CARE, [facility] PT IS PART OF AN ADULT [facility] CARE PROGRAM THE AGENCY PROVIDES PERIODIC CHECK INS BY A NURSE AND CHARISSE PT HAS A WALKER, CANE, DM SUPPLIES AND CPAP AT HOME HCP ON FILE VAX X 3 PCP: [facility] DCP IS HOME WITH [facility]UMPT[facility] OF ADULT [facility] SERVICES [facility] TO TRANSPORT
[2022-06-03 11:50] LABS: Glucose, Whole Blood 155 mg/dL (60-115)
[2022-06-03] MEDS: Insulin Lispro 100 UNIT/ML 3 ML VIAL SUBCUT (12:12)
--- NOTE | 2022-06-03 13:36 | HO.PM.IMPN ---
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 feeling gassy, having some abdominal pain No chest pain, no shortness of breath Review of Systems Review of Systems: Yes all other systems are reviewed and are negative Constitutional Constitutional: Denies chills and Denies fever(s) Cardiovascular Cardiovascular: Denies chest pain, Denies palpitations and Denies dyspnea Respiratory Respiratory: Denies cough and Denies dyspnea Gastrointestinal Gastrointestinal: Denies abdominal pain, Denies nausea and Denies vomiting Endocrine Endocrine: Denies palpitations Physical Exam Vital Signs: Vital Signs: Last Vital Signs Temp 98.7 F 06/03/22 12:00 Pulse 98 06/03/22 12:00 Resp 18 06/03/22 12:12 BP 144/78 H 06/03/22 12:00 Pulse Ox 98 06/03/22 12:00 O2 Del Method 06/03/22 12:00 O2 Flow Rate 2 06/03/22 12:00 BMI result Body Mass Index 38.4 Const: General: cooperative, no acute distress, alert and awake Orientation/consciousness: patient oriented x3 Resp: Effort & Inspection: normal respiratory effort and able to speak in complete sentences Cardio: Rate: regular rate Heart sounds: S1 normal heart sound present and S2 normal heart sound present GI: Other: perincisional tenderness Palpation (GI): Soft to palpation and Tenderness to palpation present (GI) Neuro: General: patient oriented x3 and CN's II-XI intact bilaterally Extrem: General: Yes no pedal edema Objective Data Active Medications Albuterol Sulfate (Albuterol Sulfate (0.083%) 2.5 Mg/3 Ml Vial.Neb) 2.5 mg INHALE ONCE PRN PRN Reason: Wheezing Atorvastatin Calcium (Atorvastatin Calcium 10 Mg Tablet) 10 mg PO BEDTIME [facility] Last Admin: 06/02/22 20:27 Dose: 10 mg Documented By: EDITH Buspirone HCl (Buspirone Hcl 5 Mg Tablet) 5 mg PO DAILY [facility] Last Admin: 06/03/22 07:47 Dose: 5 mg Documented By: SELENE Carvedilol (Carvedilol 12.5 Mg Tablet) 12.5 mg PO BID [facility]; Protocol Last Admin: 06/03/22 07:47 Dose: 12.5 mg Documented By: TOR-DAVID Dextrose (Dextrose 50 % 25 Gm/50 Ml Syringe) 25 gm IVPUSH Q15M PRN; Protocol PRN Reason: per Hypoglycemia Standing Ord. Fentanyl (Fentanyl Citrate/Pf 100 Mcg/2 Ml Vial) 50 mcg IVPUSH Q5M PRN; Protocol PRN Reason: Pain, Severe (Pain Scale 7-10) Fentanyl (Fentanyl Citrate/Pf 100 Mcg/2 Ml Vial) 25 mcg IVPUSH Q5M PRN; Protocol PRN Reason: Pain, Moderate (Pain Scale 4-6 Glucose (Glucose Gel 15 Gm Gel..Gram.) 15 gm PO Q15M PRN; Protocol PRN Reason: per Hypoglycemia Standing Ord. Heparin Sodium (Porcine) (Heparin Sodium,Porcine 5,000 Unit/Ml Vial) 5,000 unit SUBCUT Q8H [facility] Last Admin: 06/03/22 06:40 Dose: 5,000 unit Documented By: SHERI Insulin Human Lispro (Insulin Lispro 100 Unit/Ml 3 Ml Vial) 0 unit SUBCUT QIDAS [facility]; Protocol Last Admin: 06/03/22 12:12 Dose: 2 unit Documented By: COTEMA Morphine Sulfate (Morphine Sulfate 4 Mg/Ml Cartridge) 4 mg IVPUSH Q3H PRN; Protocol PRN Reason: Pain, Severe (Pain Scale 7-10) Last Admin: 06/03/22 12:12 Dose: 4 mg Documented By: COTEMA Ondansetron HCl (Ondansetron Hcl 4 Mg/2 Ml Vial) 4 mg IVPUSH Q8H PRN PRN Reason: Nausea Last Admin: 06/03/22 12:12 Dose: 4 mg Documented By: COTEMA Oxycodone HCl (Oxycodone Hcl Immed Release 5 Mg Tablet) 5 mg PO ONCE PRN PRN Reason: Pain, Severe (Pain Scale 7-10) Oxycodone HCl (Oxycodone Hcl Immed Release 5 Mg Tablet) 10 mg PO Q4H PRN PRN Reason: Pain, Moderate (Pain Scale 4-6 Simethicone (Simethicone 80 Mg Tab.Chew) 80 mg PO QIDWMHS PRN PRN Reason: gassiness Sodium Chloride (0.9 % Sodium Chloride Flush 3 Ml Syringe) [facility] Last Admin: 06/03/22 07:47 Dose: 3 ml Documented By: SELENE Trazodone HCl (Trazodone Hcl 50 Mg Tablet) 150 mg PO BEDTIME [facility] Last Admin: 06/02/22 22:31 Dose: 150 mg Documented By: EDITH Labs CBC & Chem 7: 06/02/22 06:16 06/01/22 16:42 Labs: Laboratory Results - last 24 hr 06/02/22 06/02/22 06/03/22 16:32 19:53 07:57 POC Glucose 131 H 133 H 120 H 06/03/22 11:28 POC Glucose 155 H Assessment and Plan (1) Primary appendiceal adenocarcinoma: Status: Acute Plan This is a 56 yo M with a PMH of HTN, DM, KYM on CPAP, morbid obesity, migranes, depression who is admitted under the general surgical services for resection of appendiceal adenoCa. Medical consulted for management of DM and HTN DM on trulicity at home, on hold use sliding scale for now HTN Continue Coreg Hydrochlorothiazide, losartan on hold HLD continue satatin KYM - continue CPAP at night Appendiceal adenoCa - s/p R colon resection - mgmt per gen surg. - IS discussed with Patient Mood continue zoloft, buspar dvt ppx - heparin we will follow along with you Quality Stroke Does the patient have a stroke diagnosis?: No VTE Prior VTE?: No VTE Risk Level:: Medical - moderate - high VTE Device Contraindication: N/A - Device Ordered VTE Drug Contraindication: N/A - Med Ordered
[2022-06-03 16:35] LABS: Glucose, Whole Blood 107 mg/dL (60-115)
[2022-06-03 20:24] LABS: Glucose, Whole Blood 137 mg/dL (60-115)
[2022-06-03] MEDS: Sertraline HCL 50 MG TABLET 150 MG PO (22:01)
[2022-06-03] MEDS: traZODone HCL 50 MG TABLET 150 MG PO (22:01)
[2022-06-03] MEDS: Atorvastatin Calcium 10 MG TABLET PO (22:02)
[2022-06-04] VITALS (7 sets, daily range): BP systolic 97–141; BP diastolic 66–82; PULSE 85–107; RESP 16–18; TEMP 36.2–37.1; O2SAT 94–98
[2022-06-04] MEDS: Morphine Sulfate 4 MG/ML CARTRIDGE IVPUSH ×4 (05:57→20:32)
[2022-06-04] MEDS: Heparin Sodium,Porcine 5,000 UNIT/ML VIAL 5000 UNIT SUBCUT ×3 (05:58→23:01)
[2022-06-04 06:57] LABS: Hematocrit 29.8 % (42.0-52.0); Hemoglobin 9.2 g/dl (14.0-18.0); Mean Corpuscular HGB Conc 30.9 g/dl (31.0-36.0); Mean Corpuscular Hemoglobin 27.5 pg (27.0-33.0); Mean Corpuscular Volume 89.2 fL (80.0-98.0); Mean Platelet Volume 10.7 fL (9.4-12.4); Platelet Count 139 X10*3/uL (160-400); Red Blood Count 3.34 X10*6/uL (4.60-5.80); White Blood Count 6.9 X10*3/uL (4.8-10.8)
[2022-06-04 07:29] LABS: Anion Gap 14 (12-20); Blood Urea Nitrogen 7 mg/dL (9-16); Calcium 8.2 mg/dL (8.4-10.2); Carbon Dioxide 31 mmol/L (22-29); Chloride 100 mmol/L (96-108); Creatinine Clr Calc Pharmacy 134.7; Estimated Glomerular Filt Rate > 60; Glucose Random 137 mg/dL (60-115); Potassium 3.5 mmol/L (3.3-5.1); Sodium 141 mmol/L (135-145)
[2022-06-04 07:45] LABS: Glucose, Whole Blood 145 mg/dL (60-115)
--- NOTE | 2022-06-04 08:43 | P.PNGS_ITS ---
Subjective Subjective Date of Service: 06/04/22 <Bertha Fernandez PA-C - Last Filed: 06/04/22 08:46> 06/07/22 <Lit Norton MD - Last Filed: 06/07/22 08:55> Interval history: C/o nausea early this morning and early fullness after eating. Passing some flatus but no BM since day 1. Has been ambulating the halls. <Bertha Fernandez PA-C - Last Filed: 06/04/22 08:46> Physical Exam Vital Signs: Vital Signs: Last Vital Signs Temp 97.8 F 06/04/22 08:00 Pulse 89 06/04/22 08:00 Resp 17 06/04/22 08:00 BP 130/75 06/04/22 08:00 Pulse Ox 97 06/04/22 08:00 O2 Del Method 06/04/22 08:00 O2 Flow Rate 3.0 06/04/22 08:00 BMI result Body Mass Index 38.4 <Bertha Fernandez PA-C - Last Filed: 06/04/22 08:46> Const: General: comfortable, no acute distress and alert <Bertha Fernandez PA-C - Last Filed: 06/04/22 08:46> Orientation/consciousness: patient oriented x3 <YESENIA Wilson Last Filed: 06/04/22 08:46> Resp: Effort & Inspection: normal respiratory effort <Bertha Fernandez PA-C - Last Filed: 06/04/22 08:46> GI: Inspection: Yes distended and Yes incision (clean) <YESENIA Wilson Last Filed: 06/04/22 08:46> Palpation (GI): Soft to palpation, Tenderness to palpation present (GI) (mild, incisional), no guarding and not rigid <YESENIA Wilson Last Filed: 06/04/22 08:46> Percussion: Yes tympanic to percussion <YESENIA Wilson Last Fi led: 06/04/22 08:46> Skin: General skin exam: no rashes or lesions noted <YESENIA Wilson Last Filed: 06/04/22 08:46> Neuro: General: patient oriented x3 <Bertha Fernandez PA-C - Last Filed: 06/04/22 08:46> Extrem: General: Yes no clubbing, cyanosis or edema <Bertha Fernandez PA-C - Last Filed: 06/04/22 08:46> Objective Data Active Medications Albuterol Sulfate (Albuterol Sulfate (0.083%) 2.5 Mg/3 Ml Vial.Neb) 2.5 mg INHALE ONCE PRN PRN Reason: Wheezing Atorvastatin Calcium (Atorvastatin Calcium 10 Mg Tablet) 10 mg PO BEDTIME [facility] Last Admin: 06/03/22 22:02 Dose: 10 mg Documented By: SHERI Buspirone HCl (Buspirone Hcl 5 Mg Tablet) 5 mg PO DAILY [facility] Last Admin: 06/03/22 07:47 Dose: 5 mg Documented By: SELENE Carvedilol (Carvedilol 12.5 Mg Tablet) 12.5 mg PO BID [facility]; Protocol Last Admin: 06/03/22 22:02 Dose: 12.5 mg Documented By: SHERI Dextrose (Dextrose 50 % 25 Gm/50 Ml Syringe) 25 gm IVPUSH Q15M PRN; Protocol PRN Reason: per Hypoglycemia Standing Ord. Fentanyl (Fentanyl Citrate/Pf 100 Mcg/2 Ml Vial) 50 mcg IVPUSH Q5M PRN; Protocol PRN Reason: Pain, Severe (Pain Scale 7-10) Fentanyl (Fentanyl Citrate/Pf 100 Mcg/2 Ml Vial) 25 mcg IVPUSH Q5M PRN; Protocol PRN Reason: Pain, Moderate (Pain Scale 4-6 Glucose (Glucose Gel 15 Gm Gel..Gram.) 15 gm PO Q15M PRN; Protocol PRN Reason: per Hypoglycemia Standing Ord. Heparin Sodium (Porcine) (Heparin Sodium,Porcine 5,000 Unit/Ml Vial) 5,000 unit SUBCUT Q8H [facility] Last Admin: 06/04/22 05:58 Dose: 5,000 unit Documented By: SHERI Insulin Human Lispro (Insulin Lispro 100 Unit/Ml 3 Ml Vial) 0 unit SUBCUT QIDACHS [facility]; Protocol Last Admin: 06/04/22 07:47 Dose: Not Given Documented By: BENNETT Non-Admin Reason: No Insulin Coverage Morphine Sulfate (Morphine Sulfate 4 Mg/Ml Cartridge) 4 mg IVPUSH Q3H PRN; Protocol PRN Reason: Pain, Severe (Pain Scale 7-10) Last Admin: 06/04/22 05:57 Dose: 4 mg Documented By: SHERI Ondansetron HCl (Ondansetron Hcl 4 Mg/2 Ml Vial) 4 mg IVPUSH Q8H PRN PRN Reason: Nausea Last Admin: 06/03/22 22:03 Dose: 4 mg Documented By: SHERI Oxycodone HCl (Oxycodone Hcl Immed Release 5 Mg Tablet) 5 mg PO ONCE PRN PRN Reason: Pain, Severe (Pain Scale 7-10) Oxycodone HCl (Oxycodone Hcl Immed Release 5 Mg Tablet) 10 mg PO Q4H PRN PRN Reason: Pain, Moderate (Pain Scale 4-6 Sertraline HCl (Sertraline Hcl 50 Mg Tablet) 150 mg PO BEDTIME [facility] Last Admin: 06/03/22 22:01 Dose: 150 mg Documented By: SHERI Simethicone (Simethicone 80 Mg Tab.Chew) 80 mg PO QIDWMHS PRN PRN Reason: gassiness Sodium Chloride (0.9 % Sodium Chloride Flush 3 Ml Syringe) 3 ml IVFLUSH QSHIFT [facility] Last Admin: 06/03/22 22:05 Dose: 3 ml Documented By: SHERI Trazodone HCl (Trazodone Hcl 50 Mg Tablet) 150 mg PO BEDTIME [facility] Last Admin: 06/03/22 22:01 Dose: 150 mg Documented By: SHERI <Bertha Fernandez PA-C - Last Filed: 06/04/22 08:46> Labs CBC & Chem 7: : 06/07/22 07:53 06/07/22 07:53 <Bertha Fernandez PA-C - Last Filed: 06/04/22 08:46> Labs: Laboratory Results - last 24 hr 06/03/22 06/03/22 06/03/22 11:28 16:30 20:15 MCV MCH MCHC RDW Plt Count MPV Absolute Nucleated RBC Nucleated RBC % (auto) Anion Gap Estim Creat Clear Calc Estimated GFR POC Glucose 155 H 107 137 H Random Glucose Calcium 06/04/22 06/04/22 06/04/22 05:07 05:07 07:20 MCV 89.2 MCH 27.5 MCHC 30.9 L RDW 14.0 Plt Count 139 L MPV 10.7 Absolute Nucleated RBC 0.000 Nucleated RBC % (auto) 0.0 Anion Gap 14 Estim Creat Clear Calc 134.7 Estimated GFR > 60 POC Glucose 145 H Random Glucose 137 H Calcium 8.2 L D <Bertha Fernandez PA-C - Last Filed: 06/04/22 08:46> Procedures Date of Service Date of Service: 06/04/22 <Bertha Fernandez PA-C - Last Filed: 06/04/22 08:46> Progress Note: A&P Assessment and plan (1) Primary appendiceal adenocarcinoma: Status: Acute <Bertha Fernandez PA-C - Last Filed: 06/04/22 08:46> Assessment and Plan: s/p right colon resection denies flatus says he had some nausea feels bloated abd soft but distended likely ileus stay with clear liqud diet ambulate left incentive spiromety looks well otherwise seen and examined - agree with MEHREEN [place] <Lit Norton MD - Last Filed: 06/07/22 08:55> Assessment and Plan: 56 year old male admitted with appendiceal carcinoma s/p right colon resection. He is having a slow recovery, likely with a post op ileus. VSS. Abd is softly distended, clean incision. Will put back on clear liquids until more evidence of GI function. Continue to encourage OOB/ambulation and IS use. <Bertha Fernandez PA-C - Last Filed: 06/04/22 08:46> Time Spent With Patient Time: Total time spent is greater than 50% in coordination of care (as documented) at patient's floor/unit and/or counseling patient: <Bertha Fernandez PA-C - Last Filed: 06/04/22 08:46> Quality Stroke Does the patient have a stroke diagnosis?: No <YESENIA Wilson Last Filed: 06/04/22 08:46> VTE Prior VTE?: No <Bertha Fernandez PA-C - Last Filed: 06/04/22 08:46> VTE Risk Level:: Medical - moderate - high <YESENIA Wilson Last Filed: 06/04/22 08:46> VTE Device Contraindication: N/A - Device Ordered <YESENIA Wilson Last Filed: 06/04/22 08:46> VTE Drug Contraindication: N/A - Med Ordered <YESENIA Wilson Last Filed: 06/04/22 08:46>
[2022-06-04] MEDS: 0.9 % Sodium Chloride Flush 3 ML SYRINGE IVFLUSH ×2 (09:42→20:35)
[2022-06-04] MEDS: carvediloL 12.5 MG TABLET PO (09:42)
[2022-06-04] MEDS: busPIRone HCl 5 MG TABLET PO (09:42)
--- NOTE | 2022-06-04 10:41 | HO.PM.IMPN ---
Subjective Subjective Date of Service: 06/04/22 Interval History: seen and examined this morning follow up medical consult still with some abdominal pain and distention; passing gas; has been ambulating in the hallway. reports some sob, feels its related to abdominal distension. no cough, no fever, chills Review of Systems Review of Systems: Yes all other systems are reviewed and are negative Constitutional Constitutional: Denies chills and Denies fever(s) Cardiovascular Cardiovascular: Denies chest pain, Denies palpitations and Reports dyspnea Respiratory Respiratory: Denies cough and Reports dyspnea Gastrointestinal Gastrointestinal: Reports abdominal pain, Denies nausea and Denies vomiting Endocrine Endocrine: Denies palpitations Physical Exam Vital Signs: Vital Signs: Last Vital Signs Temp 97.8 F 06/04/22 08:00 Pulse 89 06/04/22 08:00 Resp 17 06/04/22 08:00 BP 130/75 06/04/22 08:00 Pulse Ox 98 06/04/22 10:00 O2 Del Method 06/04/22 10:00 O2 Flow Rate 3.0 06/04/22 08:00 Oxygen Flow Rate 3.0 06/04/22 10:00 BMI result Body Mass Index 38.4 Const: General: cooperative, no acute distress, alert and awake Orientation/consciousness: patient oriented x3 Resp: Other: right side crackles; left clear to auscultation Effort & Inspection: normal respiratory effort and able to speak in complete sentences Cardio: Rate: regular rate Heart sounds: S1 normal heart sound present and S2 normal heart sound present GI: Other: midline abdominal incision with no erythema; abdominal distention; +BS; anai-incisional tenderness Neuro: General: patient oriented x3 and CN's II-XI intact bilaterally Extrem: General: Yes no pedal edema Objective Data Active Medications Albuterol Sulfate (Albuterol Sulfate (0.083%) 2.5 Mg/3 Ml Vial.Neb) 2.5 mg INHALE ONCE PRN PRN Reason: Wheezing Atorvastatin Calcium (Atorvastatin Calcium 10 Mg Tablet) 10 mg PO BEDTIME [facility] Last Admin: 06/03/22 22:02 Dose: 10 mg Documented By: SHERI Buspirone HCl (Buspirone Hcl 5 Mg Tablet) 5 mg PO DAILY [facility] Last Admin: 06/04/22 09:42 Dose: 5 mg Documented By: BENNETT Carvedilol (Carvedilol 12.5 Mg Tablet) 12.5 mg PO BID [facility]; Protocol Last Admin: 06/04/22 09:42 Dose: 12.5 mg Documented By: BENNETT Dextrose (Dextrose 50 % 25 Gm/50 Ml Syringe) 25 gm IVPUSH Q15M PRN; Protocol PRN Reason: per Hypoglycemia Standing Ord. Fentanyl (Fentanyl Citrate/Pf 100 Mcg/2 Ml Vial) 50 mcg IVPUSH Q5M PRN; Protocol PRN Reason: Pain, Severe (Pain Scale 7-10) Fentanyl (Fentanyl Citrate/Pf 100 Mcg/2 Ml Vial) 25 mcg IVPUSH Q5M PRN; Protocol PRN Reason: Pain, Moderate (Pain Scale 4-6 Glucose (Glucose Gel 15 Gm Gel..Gram.) 15 gm PO Q15M PRN; Protocol PRN Reason: per Hypoglycemia Standing Ord. Heparin Sodium (Porcine) (Heparin Sodium,Porcine 5,000 Unit/Ml Vial) 5,000 unit SUBCUT Q8H [facility] Last Admin: 06/04/22 05:58 Dose: 5,000 unit Documented By: SHERI Insulin Human Lispro (Insulin Lispro 100 Unit/Ml 3 Ml Vial) 0 unit SUBCUT QIDACHS [facility]; Protocol Last Admin: 06/04/22 07:47 Dose: Not Given Documented By: BENNETT Non-Admin Reason: No Insulin Coverage Morphine Sulfate (Morphine Sulfate 4 Mg/Ml Cartridge) 4 mg IVPUSH Q3H PRN; Protocol PRN Reason: Pain, Severe (Pain Scale 7-10) Last Admin: 06/04/22 05:57 Dose: 4 mg Documented By: SHERI Ondansetron HCl (Ondansetron Hcl 4 Mg/2 Ml Vial) 4 mg IVPUSH Q8H PRN PRN Reason: Nausea Last Admin: 06/03/22 22:03 Dose: 4 mg Documented By: SHERI Oxycodone HCl (Oxycodone Hcl Immed Release 5 Mg Tablet) 5 mg PO ONCE PRN PRN Reason: Pain, Severe (Pain Scale 7-10) Oxycodone HCl (Oxycodone Hcl Immed Release 5 Mg Tablet) 10 mg PO Q4H PRN PRN Reason: Pain, Moderate (Pain Scale 4-6 Sertraline HCl (Sertraline Hcl 50 Mg Tablet) 150 mg PO BEDTIME [facility] Last Admin: 06/03/22 22:01 Dose: 150 mg Documented By: SHERI Simethicone (Simethicone 80 Mg Tab.Chew) 80 mg PO QIDWMHS PRN PRN Reason: gassiness Sodium Chloride (0.9 % Sodium Chloride Flush 3 Ml Syringe) 3 ml IVFLUSH QSHIFT [facility] Last Admin: 06/04/22 09:42 Dose: 3 ml Documented By: BENNETT Trazodone HCl (Trazodone Hcl 50 Mg Tablet) 150 mg PO BEDTIME [facility] Last Admin: 06/03/22 22:01 Dose: 150 mg Documented By: SHERI Labs CBC & Chem 7: 06/04/22 05:07 06/04/22 05:07 Labs: Laboratory Results - last 24 hr 06/03/22 06/03/22 06/03/22 11:28 16:30 20:15 MCV MCH MCHC RDW Plt Count MPV Absolute Nucleated RBC Nucleated RBC % (auto) Anion Gap Estim Creat Clear Calc Estimated GFR POC Glucose 155 H 107 137 H Random Glucose Calcium 06/04/22 06/04/22 06/04/22 05:07 05:07 07:20 MCV 89.2 MCH 27.5 MCHC 30.9 L RDW 14.0 Plt Count 139 L MPV 10.7 Absolute Nucleated RBC 0.000 Nucleated RBC % (auto) 0.0 Anion Gap 14 Estim Creat Clear Calc 134.7 Estimated GFR > 60 POC Glucose 145 H Random Glucose 137 H Calcium 8.2 L D Assessment and Plan (1) KYM (obstructive sleep apnea): Status: Acute Plan This is a 56 yo M with a PMH of HTN, DM, KYM on CPAP, morbid obesity, migranes, depression who is admitted under the general surgical services for resection of appendiceal adenoCa. Medical consulted for management of DM and HTN dyspnea no h/o lung disease likely restrictive from abdominal distention does have some right side crackles will order cxr -supplemental O2 as needed -IS DM on trulicity at home, on hold use sliding scale for now HTN BP under adequate control Continue Coreg Hydrochlorothiazide, losartan on hold HLD continue statin KYM - continue CPAP at night Appendiceal adenoCa - s/p R colon resection - mgmt per gen surg. - importance of IS discussed with Patient Mood continue zoloft, buspar dvt ppx - heparin we will follow along with you Quality Stroke Does the patient have a stroke diagnosis?: No VTE Prior VTE?: No VTE Risk Level:: Medical - moderate - high VTE Device Contraindication: N/A - Device Ordered VTE Drug Contraindication: N/A - Med Ordered
[2022-06-04 11:35] LABS: Glucose, Whole Blood 145 mg/dL (60-115)
--- NOTE | 2022-06-04 12:46 | MHC.CM.PN ---
EMR reviewed, Per MD note patient on clear liquid diet. No plan for d.c today. CM will continue to follow for d/c planning needs. No change in plan @ this time.
--- NOTE | 2022-06-04 13:55 | MHC.CLN ---
F/U DIET ADVANCED TO FULL LIQUIDS 06/03, THEN CHANGED TO CLEAR LIQUIDS. CURRENT DIET=CLEAR LIQUIDS. MD TO ADVANCE DIET BOWEL FUNCTION RETURNS. FOLLOW FOR DIET ADVANCEMENT AND INTAKE.
[2022-06-04] MEDS: Simethicone 80 MG TAB.CHEW PO (14:46)
[2022-06-04 15:58] LABS: Glucose, Whole Blood 104 mg/dL (60-115)
[2022-06-04 20:45] LABS: Glucose, Whole Blood 132 mg/dL (60-115)
[2022-06-05] VITALS (7 sets, daily range): BP systolic 106–123; BP diastolic 65–73; PULSE 98–115; RESP 16–18; TEMP 35.9–37; O2SAT 92–97
[2022-06-05] MEDS: Heparin Sodium,Porcine 5,000 UNIT/ML VIAL 5000 UNIT SUBCUT ×3 (06:24→22:37)
[2022-06-05 07:40] LABS: Glucose, Whole Blood 168 mg/dL (60-115)
[2022-06-05 08:31] LABS: Hematocrit 32.4 % (42.0-52.0); Hemoglobin 10.3 g/dl (14.0-18.0); Mean Corpuscular HGB Conc 31.8 g/dl (31.0-36.0); Mean Corpuscular Hemoglobin 28.1 pg (27.0-33.0); Mean Corpuscular Volume 88.5 fL (80.0-98.0); Mean Platelet Volume 10.4 fL (9.4-12.4); Platelet Count 173 X10*3/uL (160-400); Red Blood Count 3.66 X10*6/uL (4.60-5.80); Red Cell Distribution Width 13.8 % (11.0-16.0); White Blood Count 6.1 X10*3/uL (4.8-10.8)
[2022-06-05 08:49] LABS: Anion Gap 16 (12-20); Carbon Dioxide 33 mmol/L (22-29); Chloride 98 mmol/L (96-108); Creatinine Clr Calc Pharmacy 51.3; Estimated Glomerular Filt Rate 33; Glucose Random 189 mg/dL (60-115); Potassium 4.1 mmol/L (3.3-5.1); Sodium 143 mmol/L (135-145)
[2022-06-05] MEDS: ondansetron HCL 4 MG/2 ML VIAL IVPUSH ×2 (08:50→19:43)
[2022-06-05] MEDS: Morphine Sulfate 4 MG/ML CARTRIDGE IVPUSH ×2 (08:50→19:32)
[2022-06-05] MEDS: 0.9 % Sodium Chloride Flush 3 ML SYRINGE IVFLUSH (08:51)
[2022-06-05 09:37] LABS: Blood Urea Nitrogen 24 mg/dL (9-16); Calcium 8.8 mg/dL (8.4-10.2)
--- NOTE | 2022-06-05 10:10 | PM.PNGS ---
Subjective Subjective Date of Service: 06/05/22 Interval history: reports abdominal distension and a bitter taste in his mouth from reflux. Denies flatus or BM. Was on clear liquids but stopped this morning. Reports having difficulty sleeping due to reflux. Physical Exam Vital Signs: Vital Signs: Last Vital Signs Temp 96.6 F L 06/05/22 08:00 Pulse 103 H 06/05/22 08:00 Resp 16 06/05/22 08:00 BP 113/73 06/05/22 08:00 Pulse Ox 95 06/05/22 08:00 O2 Del Method 06/05/22 08:00 O2 Flow Rate 2.0 06/05/22 08:00 Oxygen Flow Rate 3.0 06/04/22 10:00 BMI result Body Mass Index 38.4 Const: General: tired appearing Nutritional Appearance: obese Orientation/consciousness: patient oriented x3 Limitations: no limitations Resp: Effort & Inspection: normal respiratory effort Auscultation: clear to auscultation bilaterally GI: Other: Distended abdomen, no bowel sounds, dull to palpation, incision is clean, dry, and intact without redness or discharge. Skin: Other: Warm, dry, no rash Neuro: General: patient oriented x3 Objective Data Active Medications Albuterol Sulfate (Albuterol Sulfate (0.083%) 2.5 Mg/3 Ml Vial.Neb) 2.5 mg INHALE ONCE PRN PRN Reason: Wheezing Albuterol Sulfate (Albuterol Sulfate (0.042%) 1.25 Mg/3 Ml Vial.Neb) 1.25 mg INHALE RQ6H PRN PRN Reason: shortness of breath Atorvastatin Calcium (Atorvastatin Calcium 10 Mg Tablet) 10 mg PO BEDTIME [facility] Last Admin: 06/04/22 20:05 Dose: Not Given Documented By: LUCI Non-Admin Reason: Patient Refused Buspirone HCl (Buspirone Hcl 5 Mg Tablet) 5 mg PO DAILY [facility] Last Admin: 06/05/22 08:51 Dose: Not Given Documented By: MALIKA Non-Admin Reason: Patient Refused Carvedilol (Carvedilol 12.5 Mg Tablet) 12.5 mg PO BID [facility]; Protocol Last Admin: 06/05/22 08:51 Dose: Not Given Documented By: MALIKA Non-Admin Reason: Patient Refused Dextrose (Dextrose 50 % 25 Gm/50 Ml Syringe) 25 gm IVPUSH Q15M PRN; Protocol PRN Reason: per Hypoglycemia Standing Ord. Fentanyl (Fentanyl Citrate/Pf 100 Mcg/2 Ml Vial) 50 mcg IVPUSH Q5M PRN; Protocol PRN Reason: Pain, Severe (Pain Scale 7-10) Fentanyl (Fentanyl Citrate/Pf 100 Mcg/2 Ml Vial) 25 mcg IVPUSH Q5M PRN; Protocol PRN Reason: Pain, Moderate (Pain Scale 4-6 Glucose (Glucose Gel 15 Gm Gel..Gram.) 15 gm PO Q15M PRN; Protocol PRN Reason: per Hypoglycemia Standing Ord. Heparin Sodium (Porcine) (Heparin Sodium,Porcine 5,000 Unit/Ml Vial) 5,000 unit SUBCUT Q8H [facility] Last Admin: 06/05/22 06:24 Dose: 5,000 unit Documented By: LUCI Dextrose/Lactated Ringer's (D5lr) 1,000 mls @ 80 mls/hr IVCONT .[id number] [facility] Insulin Human Lispro (Insulin Lispro 100 Unit/Ml 3 Ml Vial) 0 unit SUBCUT QIDACHS [facility]; Protocol Last Admin: 06/05/22 08:49 Dose: Not Given Documented By: MALIKA Non-Admin Reason: Pt refused breakfast Morphine Sulfate (Morphine Sulfate 4 Mg/Ml Cartridge) 4 mg IVPUSH Q3H PRN; Protocol PRN Reason: Pain, Severe (Pain Scale 7-10) Last Admin: 06/05/22 08:50 Dose: 4 mg Documented By: MALIKA Ondansetron HCl (Ondansetron Hcl 4 Mg/2 Ml Vial) 4 mg IVPUSH Q8H PRN PRN Reason: Nausea Last Admin: 06/05/22 08:50 Dose: 4 mg Documented By: MALIKA Oxycodone HCl (Oxycodone Hcl Immed Release 5 Mg Tablet) 5 mg PO ONCE PRN PRN Reason: Pain, Severe (Pain Scale 7-10) Oxycodone HCl (Oxycodone Hcl Immed Release 5 Mg Tablet) 10 mg PO Q4H PRN PRN Reason: Pain, Moderate (Pain Scale 4-6 Sertraline HCl (Sertraline Hcl 50 Mg Tablet) 150 mg PO BEDTIME [facility] Last Admin: 06/04/22 20:06 Dose: Not Given Documented By: LUCI Non-Admin Reason: Patient Refused Simethicone (Simethicone 80 Mg Tab.Chew) 80 mg PO QIDWMHS PRN PRN Reason: gassiness Last Admin: 06/04/22 14:46 Dose: 80 mg Documented By: BENNETT Sodium Chloride (0.9 % Sodium Chloride Flush 3 Ml Syringe) 3 ml IVFLUSH QSHIFT [facility] Last Admin: 06/05/22 08:51 Dose: 3 ml Documented By: MALIKA Trazodone HCl (Trazodone Hcl 50 Mg Tablet) 150 mg PO BEDTIME [facility] Last Admin: 06/04/22 20:06 Dose: Not Given Documented By: LUCI Non-Admin Reason: Patient Refused Labs CBC & Chem 7: 06/05/22 08:09 06/05/22 08:09 Labs: Laboratory Results - last 24 hr 06/04/22 06/04/22 06/04/22 11:04 15:40 20:40 MCV MCH MCHC RDW Plt Count MPV Absolute Nucleated RBC Nucleated RBC % (auto) Anion Gap Estim Creat Clear Calc Estimated GFR POC Glucose 145 H 104 132 H Random Glucose Calcium 06/05/22 06/05/22 06/05/22 07:21 08:09 08:09 MCV 88.5 MCH 28.1 MCHC 31.8 RDW 13.8 Plt Count 173 MPV 10.4 Absolute Nucleated RBC 0.000 Nucleated RBC % (auto) 0.0 Anion Gap 16 Estim Creat Clear Calc 51.3 Estimated GFR 33 POC Glucose 168 H Random Glucose 189 H D Calcium 8.8 D Procedures Date of Service Date of Service: 06/05/22 Progress Note: A&P Assessment and plan (1) Primary appendiceal adenocarcinoma: Status: Acute Plan 56-year-old male patient pod 4 following right colectomy for appendiceal carcinoma. His abdomen remains distended without BM or flatus. Findings consistent with postoperative ileus. Will make NPO and started on IV fluids. Encouraged out of bed with ambulation. Time Spent With Patient Time: Total time spent is greater than 50% in coordination of care (as documented) at patient's floor/unit and/or counseling patient: Quality Stroke Does the patient have a stroke diagnosis?: No VTE Prior VTE?: No VTE Risk Level:: Medical - moderate - high VTE Device Contraindication: N/A - Device Ordered VTE Drug Contraindication: N/A - Med Ordered
[2022-06-05] MEDS: Dextrose 5 % and Lactated Ring 1,000 ML 80 ML IVCONT ×2 (10:31→22:37)
[2022-06-05 11:32] LABS: Glucose, Whole Blood 180 mg/dL (60-115)
--- NOTE | 2022-06-05 15:29 | P.PNIM_ITS ---
Subjective Subjective Date of Service: 06/05/22 Interval History: seen and examined this morning follow up for medical consult patient not passing gas, no BM; still with nausea, abdominal pain and distention back to NPO status no cough, no fever, no chills Review of Systems Review of Systems: Yes all other systems are reviewed and are negative Constitutional Constitutional: Denies chills and Denies fever(s) Cardiovascular Cardiovascular: Denies chest pain, Denies palpitations and Reports dyspnea Respiratory Respiratory: Denies cough and Reports dyspnea Gastrointestinal Gastrointestinal: Reports abdominal pain, Reports nausea and Denies vomiting Endocrine Endocrine: Denies palpitations Physical Exam Vital Signs: Vital Signs: Last Vital Signs Temp 98.6 F 06/05/22 15:03 Pulse 111 H 06/05/22 15:03 Resp 18 06/05/22 15:03 BP 106/65 06/05/22 15:03 Pulse Ox 92 06/05/22 15:03 O2 Del Method 06/05/22 15:03 O2 Flow Rate 3.0 06/05/22 15:03 Oxygen Flow Rate 2.0 06/05/22 10:00 BMI result Body Mass Index 38.4 Const: General: cooperative, no acute distress, alert and awake Orientation/consciousness: patient oriented x3 Resp: Other: right side crackles; left clear to auscultation Effort & Inspection: normal respiratory effort and able to speak in complete sentences Cardio: Rate: regular rate Heart sounds: S1 normal heart sound present and S2 normal heart sound present GI: Other: midline abdominal incision with no erythema; abdominal distention; +BS; anai- incisional tenderness Palpation (GI): Soft to palpation and Tenderness to palpation present (GI) Neuro: General: patient oriented x3 and CN's II-XI intact bilaterally Extrem: General: Yes no pedal edema Objective Data Active Medications Albuterol Sulfate (Albuterol Sulfate (0.042%) 1.25 Mg/3 Ml Vial.Neb) 1.25 mg INHALE RQ6H PRN PRN Reason: shortness of breath Atorvastatin Calcium (Atorvastatin Calcium 10 Mg Tablet) 10 mg PO BEDTIME [facility] Last Admin: 06/04/22 20:05 Dose: Not Given Documented By: LUCI Non-Admin Reason: Patient Refused Buspirone HCl (Buspirone Hcl 5 Mg Tablet) 5 mg PO DAILY [facility] Last Admin: 06/05/22 08:51 Dose: Not Given Documented By: MALIKA Non-Admin Reason: Patient Refused Carvedilol (Carvedilol 12.5 Mg Tablet) 12.5 mg PO BID [facility]; Protocol Last Admin: 06/05/22 08:51 Dose: Not Given Documented By: MALIKA Non-Admin Reason: Patient Refused Dextrose (Dextrose 50 % 25 Gm/50 Ml Syringe) 25 gm IVPUSH Q15M PRN; Protocol PRN Reason: per Hypoglycemia Standing Ord. Glucose (Glucose Gel 15 Gm Gel..Gram.) 15 gm PO Q15M PRN; Protocol PRN Reason: per Hypoglycemia Standing Ord. Heparin Sodium (Porcine) (Heparin Sodium,Porcine 5,000 Unit/Ml Vial) 5,000 unit SUBCUT Q8H [facility] Last Admin: 06/05/22 14:35 Dose: 5,000 unit Documented By: MALIKA Dextrose/Lactated Ringer's (D5lr) 1,000 mls @ 80 mls/hr IVCONT .[id number] [facility] Last Admin: 06/05/22 10:31 Dose: 80 mls/hr Documented By: MALIKA Insulin Human Lispro (Insulin Lispro 100 Unit/Ml 3 Ml Vial) 0 unit SUBCUT QIDACHS [facility]; Protocol Last Admin: 06/05/22 11:55 Dose: Not Given Documented By: MALIKA Non-Admin Reason: NPO Morphine Sulfate (Morphine Sulfate 4 Mg/Ml Cartridge) 4 mg IVPUSH Q3H PRN; Protocol PRN Reason: Pain, Severe (Pain Scale 7-10) Last Admin: 06/05/22 08:50 Dose: 4 mg Documented By: MALIKA Ondansetron HCl (Ondansetron Hcl 4 Mg/2 Ml Vial) 4 mg IVPUSH Q8H PRN PRN Reason: Nausea Last Admin: 06/05/22 08:50 Dose: 4 mg Documented By: MALIKA Oxycodone HCl (Oxycodone Hcl Immed Release 5 Mg Tablet) 10 mg PO Q4H PRN PRN Reason: Pain, Moderate (Pain Scale 4-6 Sertraline HCl (Sertraline Hcl 50 Mg Tablet) 150 mg PO BEDTIME [facility] Last Admin: 06/04/22 20:06 Dose: Not Given Documented By: LUCI Non-Admin Reason: Patient Refused Simethicone (Simethicone 80 Mg Tab.Chew) 80 mg PO QIDWMHS PRN PRN Reason: gassiness Last Admin: 06/04/22 14:46 Dose: 80 mg Documented By: BENNETT Sodium Chloride (0.9 % Sodium Chloride Flush 3 Ml Syringe) 3 ml IVFLUSH QSHIFT [facility] Last Admin: 06/05/22 15:18 Dose: Not Given Documented By: MALIKA Non-Admin Reason: IV Running Trazodone HCl (Trazodone Hcl 50 Mg Tablet) 150 mg PO BEDTIME [facility] Last Admin: 06/04/22 20:06 Dose: Not Given Documented By: LUCI Non-Admin Reason: Patient Refused Labs CBC & Chem 7: 06/05/22 08:09 06/05/22 08:09 Labs: Laboratory Results - last 24 hr 06/04/22 06/04/22 06/05/22 15:40 20:40 07:21 MCV MCH MCHC RDW Plt Count MPV Absolute Nucleated RBC Nucleated RBC % (auto) Anion Gap Estim Creat Clear Calc Estimated GFR POC Glucose 104 132 H 168 H Random Glucose Calcium 06/05/22 06/05/22 06/05/22 08:09 08:09 11:14 MCV 88.5 MCH 28.1 MCHC 31.8 RDW 13.8 Plt Count 173 MPV 10.4 Absolute Nucleated RBC 0.000 Nucleated RBC % (auto) 0.0 Anion Gap 16 Estim Creat Clear Calc 51.3 Estimated GFR 33 POC Glucose 180 H Random Glucose 189 H D Calcium 8.8 D Assessment and Plan (1) JENNIFER (acute kidney injury): Status: Acute Plan This is a 56 yo M with a PMH of HTN, DM, KYM on CPAP, morbid obesity, migranes, depression who is admitted under the general surgical services for resection of appendiceal adenoCa. Medical consulted for management of DM and HTN acute respiratory failure with hypoxia no h/o lung disease likely restrictive from abdominal distention CXR showing atelectasis. no pneumonia. 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 - importance of IS discussed with Patient DM on trulicity at home, on hold use sliding scale for now HTN BP under adequate control Continue Coreg Hydrochlorothiazide, losartan on hold HLD continue statin KYM - continue CPAP at night Mood continue zoloft, buspar dvt ppx - heparin attending - dr. hawkins we will follow along with you Quality Stroke Does the patient have a stroke diagnosis?: No VTE Prior VTE?: No VTE Risk Level:: Medical - moderate - high VTE Device Contraindication: N/A - Device Ordered VTE Drug Contraindication: N/A - Med Ordered
[2022-06-05 15:32] LABS: Glucose, Whole Blood 170 mg/dL (60-115)
[2022-06-05 19:41] LABS: Glucose, Whole Blood 171 mg/dL (60-115)
[2022-06-05] MEDS: diphenhydrAMINE HCL 50 MG/ML VIAL 25 MG IVPUSH (22:38)
--- NOTE | 2022-06-06 | ECG_ITS ---
Test Reason : chest pain Blood Pressure : / mmHG Vent. Rate : 107 BPM Atrial Rate : 107 BPM P-R Int : 122 ms QRS Dur : 096 ms QT Int : 304 ms P-R-T Axes : 033 006 045 degrees QTc Int : 405 ms Sinus tachycardia with Premature supraventricular complexes Nonspecific ST and T wave abnormality RSR' or QR pattern in V1 suggests right ventricular conduction delay Abnormal ECG Heart rate has increased Premature atrial complexes are new Referred By: Shayne Albarado Electronically Signed By:ABEL VILLARREAL MD
[2022-06-06] MEDS: Morphine Sulfate 4 MG/ML CARTRIDGE IVPUSH ×3 (00:35→20:01)
--- NOTE | 2022-06-06 00:38 | PC.NURSE ---
pt's came out to tell me that pt was having difficulty breathing. Rapid Response was called. On arrival, pt's O2 saturation was 86% on RA and was unable to speak in full sentences d/t to dyspnea. NRB mask was placed at 15L 100% O2 was achieved. Vitals: Temperature 97.1 Pulse: 92 BP: 109/70 Chest XR, KUB was obtained. Morphine 4mg given to help W.O.B. Lab: ABG, Troponin, CBC, BMP, Lactic and LDH was taken. Pt remains with NRB on at 100%. Will titrate down and will continue to monitor.
[2022-06-06 01:02] LABS: Venous Blood Gas Refer to POC result
--- NOTE | 2022-06-06 01:02 | PM.EVENT ---
Event Note Date of Service: 06/06/22 Event Note: 1 am: rapid response called due to sob and difficulty taking deep breaths. sats 87% on RA. placed on NC w improvement of o2. tachpneic. bp stable. has abd distension, abd tenderness. feels tat his abd not letting him breath due to distension. will obtain cxr, kub, bnp,bmp,cbc,trop,ldh and lactic acid morphine 1 dose given for tachypnea. chest xray shows possible pleural effusion. BNP negative ( poossibly false negative given obesity) will tx with 1 dose lasix echo placed 5am: pt had 1 large BM
[2022-06-06 01:03] LABS: Hematocrit 34.3 % (42.0-52.0); Hemoglobin 10.7 g/dl (14.0-18.0); Mean Corpuscular HGB Conc 31.2 g/dl (31.0-36.0); Mean Corpuscular Hemoglobin 27.4 pg (27.0-33.0); Mean Corpuscular Volume 87.9 fL (80.0-98.0); Mean Platelet Volume 10.2 fL (9.4-12.4); NRBC Pct Auto 0.3 /100WBC (0.0-0.2); Platelet Count 210 X10*3/uL (160-400); Red Cell Distribution Width 13.9 % (11.0-16.0); White Blood Count 6.4 X10*3/uL (4.8-10.8)
[2022-06-06 01:04] LABS: VBG Base Excess 10.8 mmol/L; VBG HCO3 37 mmol/L (22-26); VBG pCO2 61 mmHg; VBG pH 7.39 (7.32-7.43); VBG pO2 44 mmHg
[2022-06-06 01:21] LABS: Lactic Acid 1.3 mmol/L (0.5-2.0)
[2022-06-06 01:25] LABS: Anion Gap 18 (12-20); Blood Urea Nitrogen 39 mg/dL (9-16); Calcium 8.5 mg/dL (8.4-10.2); Carbon Dioxide 30 mmol/L (22-29); Chloride 98 mmol/L (96-108); Creatinine Clr Calc Pharmacy 54.7; Estimated Glomerular Filt Rate 35; Glucose Random 167 mg/dL (60-115); Lactate Dehydrogenase 146 U/L (118-273); Potassium 3.8 mmol/L (3.3-5.1); Sodium 142 mmol/L (135-145)
[2022-06-06 01:31] LABS: B Type Natriuretic Peptide 14 pg/mL (<100); Troponin-I High Sensitivity < 3.5 ng/L (<3.5-35.0)
[2022-06-06 02:02] LABS: Atypical Lymph Absolute Manual 0.1 x10*3/uL; Atypical Lymphs Percent Manual 1 % (0-6); Band Neutrophils Percent 22 % (3-5); Lymphocytes Percent Manual 16 % (20-40); Monocytes Absolute Manual 0.6 X10*3/uL (0.1-1.2); Monocytes Percent Manual 10 % (2-11); Neutrophils Absolute Manual 4.7 X10*3/uL (2.0-8.3); Neutrophils Percent Manual 51 % (45-73)
[2022-06-06 02:03] LABS: Burr Cells 1+ (0-2) /OIF; Dohle Bodies PRESENT; Macrocytosis 1+ (5-14) /OIF; Ovalocytes 1+ (5-14) /OIF; Platelet Estimate NORMAL (NORMAL); Platelet Morphology Comment NORMAL; Polychromasia 1+ (0-2) /OIF; RBC Morphology NOTED; Smudge Cells PRESENT
[2022-06-06 02:04] LABS: Toxic Vacuolation PRESENT
--- NOTE | 2022-06-06 04:46 | PC.NURSE ---
pt had 1 large loose stool BM. @3522py
[2022-06-06] MEDS: Heparin Sodium,Porcine 5,000 UNIT/ML VIAL 5000 UNIT SUBCUT ×3 (04:48→21:26)
[2022-06-06] MEDS: Furosemide 40 MG/4 ML VIAL IVPUSH (06:30)
[2022-06-06 06:33] LABS: Anion Gap 18 (12-20); Blood Urea Nitrogen 44 mg/dL (9-16); Calcium 8.4 mg/dL (8.4-10.2); Carbon Dioxide 31 mmol/L (22-29); Chloride 98 mmol/L (96-108); Creatinine Clr Calc Pharmacy 53.1; Estimated Glomerular Filt Rate 34; Glucose Random 173 mg/dL (60-115); Potassium 3.7 mmol/L (3.3-5.1); Sodium 143 mmol/L (135-145)
[2022-06-06 07:37] VITALS: BP 113/70; PULSE 110; RESP 19; TEMP 36.2; O2SAT 97
[2022-06-06 07:38] LABS: Glucose, Whole Blood 166 mg/dL (60-115)
[2022-06-06 08:01] LABS: Alanine Aminotransferase 9 U/L (0-40); Albumin Level 3.5 g/dL (3.5-5.0); Alkaline Phosphatase 45 U/L (39-117); Aspartate Amino Transferase 13 U/L (5-37); Bilirubin Direct 0.3 mg/dL (0.0-0.5); Bilirubin Total 0.6 mg/dL (0.0-1.0); Total Protein 5.9 g/dL (6.5-8.0)
--- NOTE | 2022-06-06 09:56 | P.PNGS_ITS ---
Subjective Subjective Date of Service: 06/06/22 Interval history: Patient became acutely short of breath this morning resulting in a rapid response. He subsequently had several large bowel movements which were blood- tinged this morning. He does feel much improved with decreased abdominal distension improved breathing. He is sitting up in a Arlene chair and resting comfortably. Physical Exam Vital Signs: Vital Signs: Last Vital Signs Temp 97.1 F 06/06/22 07:37 Pulse 110 H 06/06/22 07:37 Resp 19 06/06/22 07:37 BP 113/70 06/06/22 07:37 Pulse Ox 97 06/06/22 07:37 O2 Del Method 06/06/22 07:37 O2 Flow Rate 3.0 06/06/22 07:37 Oxygen Flow Rate 2.0 06/05/22 10:00 BMI result Body Mass Index 38.4 Const: General: tired appearing Nutritional Appearance: obese Orientation/consciousness: patient oriented x3 Limitations: no limitations Resp: Effort & Inspection: normal respiratory effort Auscultation: clear to auscultation bilaterally GI: Other: Abdomen is less distended, few bowel sounds audible, incision is clean, dry, and intact without erythema or discharge. No tympany to percussion Skin: Other: Warm, dry, no rash Neuro: General: patient oriented x3 Objective Data Active Medications Albuterol Sulfate (Albuterol Sulfate (0.042%) 1.25 Mg/3 Ml Vial.Neb) 1.25 mg INHALE RQ6H PRN PRN Reason: shortness of breath Atorvastatin Calcium (Atorvastatin Calcium 10 Mg Tablet) 10 mg PO BEDTIME [facility] Last Admin: 06/05/22 19:24 Dose: Not Given Documented By: LUCI Non-Admin Reason: Patient Refused Buspirone HCl (Buspirone Hcl 5 Mg Tablet) 5 mg PO DAILY [facility] Last Admin: 06/06/22 08:45 Dose: Not Given Documented By: MALIKA Non-Admin Reason: Patient Refused Carvedilol (Carvedilol 12.5 Mg Tablet) 12.5 mg PO BID [facility]; Protocol Last Admin: 06/06/22 08:45 Dose: Not Given Documented By: MALIKA Non-Admin Reason: Patient Refused Dextrose (Dextrose 50 % 25 Gm/50 Ml Syringe) 25 gm IVPUSH Q15M PRN; Protocol PRN Reason: per Hypoglycemia Standing Ord. Glucose (Glucose Gel 15 Gm Gel..Gram.) 15 gm PO Q15M PRN; Protocol PRN Reason: per Hypoglycemia Standing Ord. Heparin Sodium (Porcine) (Heparin Sodium,Porcine 5,000 Unit/Ml Vial) 5,000 unit SUBCUT Q8H [facility] Last Admin: 06/06/22 04:48 Dose: 5,000 unit Documented By: LUCI Dextrose/Lactated Ringer's (D5lr) 1,000 mls @ 80 mls/hr IVCONT .[id number] [facility] Last Admin: 06/05/22 22:37 Dose: 80 mls/hr Documented By: LUCI Insulin Human Lispro (Insulin Lispro 100 Unit/Ml 3 Ml Vial) 0 unit SUBCUT QIDACHS [facility]; Protocol Last Admin: 06/06/22 07:43 Dose: Not Given Documented By: MALIKA Non-Admin Reason: NPO Morphine Sulfate (Morphine Sulfate 4 Mg/Ml Cartridge) 4 mg IVPUSH Q3H PRN; Protocol PRN Reason: Pain, Severe (Pain Scale 7-10) Last Admin: 06/06/22 00:35 Dose: 4 mg Documented By: LUCI Ondansetron HCl (Ondansetron Hcl 4 Mg/2 Ml Vial) 4 mg IVPUSH Q8H PRN PRN Reason: Nausea Last Admin: 06/05/22 19:43 Dose: 4 mg Documented By: LUCI Oxycodone HCl (Oxycodone Hcl Immed Release 5 Mg Tablet) 10 mg PO Q4H PRN PRN Reason: Pain, Moderate (Pain Scale 4-6 Sertraline HCl (Sertraline Hcl 50 Mg Tablet) 150 mg PO BEDTIME [facility] Last Admin: 06/05/22 19:25 Dose: Not Given Documented By: LUCI Non-Admin Reason: Patient Refused Simethicone (Simethicone 80 Mg Tab.Chew) 80 mg PO QIDWMHS PRN PRN Reason: gassiness Last Admin: 06/04/22 14:46 Dose: 80 mg Documented By: BENNETT Sodium Chloride (0.9 % Sodium Chloride Flush 3 Ml Syringe) 3 ml IVFLUSH QSHIFT [facility] Last Admin: 06/06/22 08:07 Dose: Not Given Documented By: MALIKA Non-Admin Reason: IV Running Trazodone HCl (Trazodone Hcl 50 Mg Tablet) 150 mg PO BEDTIME [facility] Last Admin: 06/05/22 19:25 Dose: Not Given Documented By: LUCI Non-Admin Reason: Patient Refused Labs CBC & Chem 7: 06/06/22 00:55 06/06/22 05:21 Labs: Laboratory Results - last 24 hr 06/05/22 06/05/22 06/05/22 11:14 15:02 19:21 MCV MCH MCHC RDW Plt Count MPV Immature Gran % (Auto) Neut % (Auto) Lymph % (Auto) Dickinson % (Auto) Eos % (Auto) Baso % (Auto) Lymph # (Auto) Dickinson # (Auto) Eos # (Auto) Baso # (Auto) Abs Immat Gran (auto) Absolute Neuts (auto) Absolute Nucleated RBC Nucleated RBC % (auto) Neutrophils % (Manual) Band Neutrophils % Lymphocytes % (Manual) Atypical Lymphs % (Man) Monocytes % (Manual) Abs Neuts (Manual) Lymphocytes # (Manual) Atyp Lymphs # (Manual) Monocytes # (Manual) Smudge Cells Toxic Vacuolation Dohle Bodies Platelet Estimate Plt Morphology Comment RBC Morphology Polychromasia Macrocytosis Ovalocytes Mesa Cells VBG pH VBG pCO2 VBG pO2 VBG HCO3 VBG O2 Saturation VBG Base Excess Anion Gap Estim Creat Clear Calc Estimated GFR POC Glucose 180 H 170 H 171 H Random Glucose Lactic Acid Calcium Total Bilirubin Direct Bilirubin AST ALT Alkaline Phosphatase Lactate Dehydrogenase Troponin I High Sens B-Natriuretic Peptide Total Protein Albumin 06/06/22 06/06/22 06/06/22 00:55 00:55 00:55 MCV 87.9 MCH 27.4 MCHC 31.2 RDW 13.9 Plt Count 210 MPV 10.2 Immature Gran % (Auto) Cancelled Neut % (Auto) Cancelled Lymph % (Auto) Cancelled Dickinson % (Auto) Cancelled Eos % (Auto) Cancelled Baso % (Auto) Cancelled Lymph # (Auto) Cancelled Dickinson # (Auto) Cancelled Eos # (Auto) Cancelled Baso # (Auto) Cancelled Abs Immat Gran (auto) Cancelled Absolute Neuts (auto) Cancelled Absolute Nucleated RBC 0.020 H Nucleated RBC % (auto) 0.3 H Neutrophils % (Manual) 51 Band Neutrophils % 22 H Lymphocytes % (Manual) 16 L Atypical Lymphs % (Man) 1 Monocytes % (Manual) 10 Abs Neuts (Manual) 4.7 Lymphocytes # (Manual) 1.0 L Atyp Lymphs # (Manual) 0.1 Monocytes # (Manual) 0.6 Smudge Cells PRESENT Toxic Vacuolation PRESENT Dohle Bodies PRESENT Platelet Estimate NORMAL Plt Morphology Comment NORMAL RBC Morphology NOTED Polychromasia 1+ (0-2) Macrocytosis 1+ (5-14) Ovalocytes 1+ (5-14) Joss Cells 1+ (0-2) VBG pH VBG pCO2 VBG pO2 VBG HCO3 VBG O2 Saturation VBG Base Excess Anion Gap 18 Estim Creat Clear Calc 54.7 Estimated GFR 35 POC Glucose Random Glucose 167 H Lactic Acid Calcium 8.5 Total Bilirubin 0.6 Direct Bilirubin 0.3 AST 13 ALT 9 Alkaline Phosphatase 45 D Lactate Dehydrogenase 146 Troponin I High Sens < 3.5 B-Natriuretic Peptide 14 Total Protein 5.9 L Albumin 3.5 06/06/22 06/06/22 06/06/22 00:55 00:58 05:21 MCV MCH MCHC RDW Plt Count MPV Immature Gran % (Auto) Neut % (Auto) Lymph % (Auto) Dickinson % (Auto) Eos % (Auto) Baso % (Auto) Lymph # (Auto) Dickinson # (Auto) Eos # (Auto) Baso # (Auto) Abs Immat Gran (auto) Absolute Neuts (auto) Absolute Nucleated RBC Nucleated RBC % (auto) Neutrophils % (Manual) Band Neutrophils % Lymphocytes % (Manual) Atypical Lymphs % (Man) Monocytes % (Manual) Abs Neuts (Manual) Lymphocytes # (Manual) Atyp Lymphs # (Manual) Monocytes # (Manual) Smudge Cells Toxic Vacuolation Dohle Bodies Platelet Estimate Plt Morphology Comment RBC Morphology Polychromasia Macrocytosis Ovalocytes Mesa Cells VBG pH 7.39 VBG pCO2 61 VBG pO2 44 VBG HCO3 37 H VBG O2 Saturation 71.0 VBG Base Excess 10.8 Anion Gap 18 Estim Creat Clear Calc 53.1 Estimated GFR 34 POC Glucose Random Glucose 173 H Lactic Acid 1.3 Calcium 8.4 Total Bilirubin Direct Bilirubin AST ALT Alkaline Phosphatase Lactate Dehydrogenase Troponin I High Sens B-Natriuretic Peptide Total Protein Albumin 06/06/22 07:34 MCV MCH MCHC RDW Plt Count MPV Immature Gran % (Auto) Neut % (Auto) Lymph % (Auto) Dickinson % (Auto) Eos % (Auto) Baso % (Auto) Lymph # (Auto) Dickinson # (Auto) Eos # (Auto) Baso # (Auto) Abs Immat Gran (auto) Absolute Neuts (auto) Absolute Nucleated RBC Nucleated RBC % (auto) Neutrophils % (Manual) Band Neutrophils % Lymphocytes % (Manual) Atypical Lymphs % (Man) Monocytes % (Manual) Abs Neuts (Manual) Lymphocytes # (Manual) Atyp Lymphs # (Manual) Monocytes # (Manual) Smudge Cells Toxic Vacuolation Dohle Bodies Platelet Estimate Plt Morphology Comment RBC Morphology Polychromasia Macrocytosis Ovalocytes Joss Cells VBG pH VBG pCO2 VBG pO2 VBG HCO3 VBG O2 Saturation VBG Base Excess Anion Gap Estim Creat Clear Calc Estimated GFR POC Glucose 166 H Random Glucose Lactic Acid Calcium Total Bilirubin Direct Bilirubin AST ALT Alkaline Phosphatase Lactate Dehydrogenase Troponin I High Sens B-Natriuretic Peptide Total Protein Albumin Procedures Date of Service Date of Service: 06/06/22 Progress Note: A&P Assessment and plan (1) Primary appendiceal adenocarcinoma: Status: Acute Plan 56-year-old male patient pod 5 following right colectomy for appendiceal carcinoma. He developed shortness of breath during the night due to abdominal distension but now feels improved after having several large liquid bowel movements. Abdominal examination is still distended but much softer than the previous day. I will restart a clear liquid diet today. He is encouraged to continue the incentive spirometry. Time Spent With Patient Time: Total time spent is greater than 50% in coordination of care (as documented) at patient's floor/unit and/or counseling patient: Quality Stroke Does the patient have a stroke diagnosis?: No VTE Prior VTE?: No VTE Risk Level:: Medical - moderate - high VTE Device Contraindication: N/A - Device Ordered VTE Drug Contraindication: N/A - Med Ordered
--- NOTE | 2022-06-06 10:52 | P.PNIM_ITS ---
Subjective Subjective Date of Service: 06/06/22 Interval History: seen and examined this morning follow up for medical consultation had episode of shortness of breath overnight. repeat cxr showed bibasilar pleural effusions. received a dose of IV lasix KUB overnight showed ileus vs obstruction; had several BMs this morning and subsequently is feeling somewhat better Review of Systems Review of Systems: Yes all other systems are reviewed and are negative Constitutional Constitutional: Denies chills and Denies fever(s) Cardiovascular Cardiovascular: Denies chest pain, Denies palpitations and Reports dyspnea Respiratory Respiratory: Denies cough and Reports dyspnea Gastrointestinal Gastrointestinal: Reports abdominal pain, Reports loose stools, Reports nausea and Denies vomiting Endocrine Endocrine: Denies palpitations Physical Exam Vital Signs: Vital Signs: Last Vital Signs Temp 97.1 F 06/06/22 07:37 Pulse 110 H 06/06/22 07:37 Resp 19 06/06/22 07:37 BP 113/70 06/06/22 07:37 Pulse Ox 97 06/06/22 07:37 O2 Del Method 06/06/22 07:37 O2 Flow Rate 3.0 06/06/22 07:37 Oxygen Flow Rate 2.0 06/05/22 10:00 BMI result Body Mass Index 38.4 Const: General: cooperative, no acute distress, alert and awake Orientation/consciousness: patient oriented x3 Resp: Other: right side crackles; left clear to auscultation Effort & Inspection: normal respiratory effort and able to speak in complete sentences Cardio: Rate: regular rate Heart sounds: S1 normal heart sound present and S2 normal heart sound present GI: Other: midline abdominal incision with no erythema; abdominal distention; +BS; anai- incisional tenderness Palpation (GI): Soft to palpation and Tenderness to palpation present (GI) Neuro: General: patient oriented x3 and CN's II-XI intact bilaterally Extrem: General: Yes no pedal edema Objective Data Active Medications Albuterol Sulfate (Albuterol Sulfate (0.042%) 1.25 Mg/3 Ml Vial.Neb) 1.25 mg INHALE RQ6H PRN PRN Reason: shortness of breath Atorvastatin Calcium (Atorvastatin Calcium 10 Mg Tablet) 10 mg PO BEDTIME [facility] Last Admin: 06/05/22 19:24 Dose: Not Given Documented By: LUCI Non-Admin Reason: Patient Refused Buspirone HCl (Buspirone Hcl 5 Mg Tablet) 5 mg PO DAILY [facility] Last Admin: 06/06/22 08:45 Dose: Not Given Documented By: MALIKA Non-Admin Reason: Patient Refused Carvedilol (Carvedilol 12.5 Mg Tablet) 12.5 mg PO BID [facility]; Protocol Last Admin: 06/06/22 08:45 Dose: Not Given Documented By: MALIKA Non-Admin Reason: Patient Refused Dextrose (Dextrose 50 % 25 Gm/50 Ml Syringe) 25 gm IVPUSH Q15M PRN; Protocol PRN Reason: per Hypoglycemia Standing Ord. Glucose (Glucose Gel 15 Gm Gel..Gram.) 15 gm PO Q15M PRN; Protocol PRN Reason: per Hypoglycemia Standing Ord. Heparin Sodium (Porcine) (Heparin Sodium,Porcine 5,000 Unit/Ml Vial) 5,000 unit SUBCUT Q8H [facility] Last Admin: 06/06/22 04:48 Dose: 5,000 unit Documented By: LUCI Dextrose/Lactated Ringer's (D5lr) 1,000 mls @ 80 mls/hr IVCONT .[id number] [facility] Last Admin: 06/06/22 10:36 Dose: Not Given Documented By: MALIKA Non-Admin Reason: IV Running Insulin Human Lispro (Insulin Lispro 100 Unit/Ml 3 Ml Vial) 0 unit SUBCUT QIDACHS [facility]; Protocol Last Admin: 06/06/22 07:43 Dose: Not Given Documented By: MALIKA Non-Admin Reason: NPO Morphine Sulfate (Morphine Sulfate 4 Mg/Ml Cartridge) 4 mg IVPUSH Q3H PRN; Protocol PRN Reason: Pain, Severe (Pain Scale 7-10) Last Admin: 06/06/22 00:35 Dose: 4 mg Documented By: LUCI Ondansetron HCl (Ondansetron Hcl 4 Mg/2 Ml Vial) 4 mg IVPUSH Q8H PRN PRN Reason: Nausea Last Admin: 06/05/22 19:43 Dose: 4 mg Documented By: LUCI Oxycodone HCl (Oxycodone Hcl Immed Release 5 Mg Tablet) 10 mg PO Q4H PRN PRN Reason: Pain, Moderate (Pain Scale 4-6 Sertraline HCl (Sertraline Hcl 50 Mg Tablet) 150 mg PO BEDTIME [facility] Last Admin: 06/05/22 19:25 Dose: Not Given Documented By: LUCI Non-Admin Reason: Patient Refused Simethicone (Simethicone 80 Mg Tab.Chew) 80 mg PO QIDWMHS PRN PRN Reason: gassiness Last Admin: 06/04/22 14:46 Dose: 80 mg Documented By: BENNETT Sodium Chloride (0.9 % Sodium Chloride Flush 3 Ml Syringe) 3 ml IVFLUSH QSHIFT [facility] Last Admin: 06/06/22 08:07 Dose: Not Given Documented By: MALIKA Non-Admin Reason: IV Running Trazodone HCl (Trazodone Hcl 50 Mg Tablet) 150 mg PO BEDTIME [facility] Last Admin: 06/05/22 19:25 Dose: Not Given Documented By: LUCI Non-Admin Reason: Patient Refused Labs CBC & Chem 7: 06/06/22 00:55 06/06/22 05:21 Labs: Laboratory Results - last 24 hr 06/05/22 06/05/22 06/05/22 11:14 15:02 19:21 MCV MCH MCHC RDW Plt Count MPV Immature Gran % (Auto) Neut % (Auto) Lymph % (Auto) [place] % (Auto) Eos % (Auto) Baso % (Auto) Lymph # (Auto) [place] # (Auto) Eos # (Auto) Baso # (Auto) Abs Immat Gran (auto) Absolute Neuts (auto) Absolute Nucleated RBC Nucleated RBC % (auto) Neutrophils % (Manual) Band Neutrophils % Lymphocytes % (Manual) Atypical Lymphs % (Man) Monocytes % (Manual) Abs Neuts (Manual) Lymphocytes # (Manual) Atyp Lymphs # (Manual) Monocytes # (Manual) Smudge Cells Toxic Vacuolation Dohle Bodies Platelet Estimate Plt Morphology Comment RBC Morphology Polychromasia Macrocytosis Ovalocytes Joss Cells VBG pH VBG pCO2 VBG pO2 VBG HCO3 VBG O2 Saturation VBG Base Excess Anion Gap Estim Creat Clear Calc Estimated GFR POC Glucose 180 H 170 H 171 H Random Glucose Lactic Acid Calcium Total Bilirubin Direct Bilirubin AST ALT Alkaline Phosphatase Lactate Dehydrogenase Troponin I High Sens B-Natriuretic Peptide Total Protein Albumin 06/06/22 06/06/22 06/06/22 00:55 00:55 00:55 MCV 87.9 MCH 27.4 MCHC 31.2 RDW 13.9 Plt Count 210 MPV 10.2 Immature Gran % (Auto) Cancelled Neut % (Auto) Cancelled Lymph % (Auto) Cancelled [place] % (Auto) Cancelled Eos % (Auto) Cancelled Baso % (Auto) Cancelled Lymph # (Auto) Cancelled [place] # (Auto) Cancelled Eos # (Auto) Cancelled Baso # (Auto) Cancelled Abs Immat Gran (auto) Cancelled Absolute Neuts (auto) Cancelled Absolute Nucleated RBC 0.020 H Nucleated RBC % (auto) 0.3 H Neutrophils % (Manual) 51 Band Neutrophils % 22 H Lymphocytes % (Manual) 16 L Atypical Lymphs % (Man) 1 Monocytes % (Manual) 10 Abs Neuts (Manual) 4.7 Lymphocytes # (Manual) 1.0 L Atyp Lymphs # (Manual) 0.1 Monocytes # (Manual) 0.6 Smudge Cells PRESENT Toxic Vacuolation PRESENT Dohle Bodies PRESENT Platelet Estimate NORMAL Plt Morphology Comment NORMAL RBC Morphology NOTED Polychromasia 1+ (0-2) Macrocytosis 1+ (5-14) Ovalocytes 1+ (5-14) Joss Cells 1+ (0-2) VBG pH VBG pCO2 VBG pO2 VBG HCO3 VBG O2 Saturation VBG Base Excess Anion Gap 18 Estim Creat Clear Calc 54.7 Estimated GFR 35 POC Glucose Random Glucose 167 H Lactic Acid Calcium 8.5 Total Bilirubin 0.6 Direct Bilirubin 0.3 AST 13 ALT 9 Alkaline Phosphatase 45 D Lactate Dehydrogenase 146 Troponin I High Sens < 3.5 B-Natriuretic Peptide 14 Total Protein 5.9 L Albumin 3.5 06/06/22 06/06/22 06/06/22 00:55 00:58 05:21 MCV MCH MCHC RDW Plt Count MPV Immature Gran % (Auto) Neut % (Auto) Lymph % (Auto) [place] % (Auto) Eos % (Auto) Baso % (Auto) Lymph # (Auto) [place] # (Auto) Eos # (Auto) Baso # (Auto) Abs Immat Gran (auto) Absolute Neuts (auto) Absolute Nucleated RBC Nucleated RBC % (auto) Neutrophils % (Manual) Band Neutrophils % Lymphocytes % (Manual) Atypical Lymphs % (Man) Monocytes % (Manual) Abs Neuts (Manual) Lymphocytes # (Manual) Atyp Lymphs # (Manual) Monocytes # (Manual) Smudge Cells Toxic Vacuolation Dohle Bodies Platelet Estimate Plt Morphology Comment RBC Morphology Polychromasia Macrocytosis Ovalocytes Joss Cells VBG pH 7.39 VBG pCO2 61 VBG pO2 44 VBG HCO3 37 H VBG O2 Saturation 71.0 VBG Base Excess 10.8 Anion Gap 18 Estim Creat Clear Calc 53.1 Estimated GFR 34 POC Glucose Random Glucose 173 H Lactic Acid 1.3 Calcium 8.4 Total Bilirubin Direct Bilirubin AST ALT Alkaline Phosphatase Lactate Dehydrogenase Troponin I High Sens B-Natriuretic Peptide Total Protein Albumin 06/06/22 07:34 MCV MCH MCHC RDW Plt Count MPV Immature Gran % (Auto) Neut % (Auto) Lymph % (Auto) [place] % (Auto) Eos % (Auto) Baso % (Auto) Lymph # (Auto) [place] # (Auto) Eos # (Auto) Baso # (Auto) Abs Immat Gran (auto) Absolute Neuts (auto) Absolute Nucleated RBC Nucleated RBC % (auto) Neutrophils % (Manual) Band Neutrophils % Lymphocytes % (Manual) Atypical Lymphs % (Man) Monocytes % (Manual) Abs Neuts (Manual) Lymphocytes # (Manual) Atyp Lymphs # (Manual) Monocytes # (Manual) Smudge Cells Toxic Vacuolation Dohle Bodies Platelet Estimate Plt Morphology Comment RBC Morphology Polychromasia Macrocytosis Ovalocytes Joss Cells VBG pH VBG pCO2 VBG pO2 VBG HCO3 VBG O2 Saturation VBG Base Excess Anion Gap Estim Creat Clear Calc Estimated GFR POC Glucose 166 H Random Glucose Lactic Acid Calcium Total Bilirubin Direct Bilirubin AST ALT Alkaline Phosphatase Lactate Dehydrogenase Troponin I High Sens B-Natriuretic Peptide Total Protein Albumin Assessment and Plan (1) JENNIFER (acute kidney injury): Status: Acute Plan This is a 56 yo M with a PMH of HTN, DM, KYM on CPAP, morbid obesity, migranes, depression who is admitted under the general surgical services for resection of appendiceal adenoCa. Medical consulted for management of DM and HTN acute respiratory failure with hypoxia no h/o lung disease likely restrictive from abdominal distention CXR showing atelectasis. no pneumonia. repeat CXR overnight showing small b/l plural effusions and bibasilar atelectasis. Received one dose of Lasix. 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 - importance of IS discussed with Patient thrombocytopenia resolved DM on trulicity at home, on hold use sliding scale for now HTN BP under adequate control Continue Coreg Hydrochlorothiazide, losartan on hold HLD continue statin KYM - continue CPAP at night Mood continue zoloft, buspar *smudge cells noted on CBC no lymphocytosis, or leukocytosis recommend outpatient follow up dvt ppx - heparin attending - dr. Bergman we will follow along with you Quality Stroke Does the patient have a stroke diagnosis?: No VTE Prior VTE?: No VTE Risk Level:: Medical - moderate - high VTE Device Contraindication: N/A - Device Ordered VTE Drug Contraindication: N/A - Med Ordered
[2022-06-06 10:53] VITALS: BP 115/70; PULSE 107; RESP 18; TEMP 36.4; O2SAT 95
[2022-06-06 11:18] LABS: Glucose, Whole Blood 155 mg/dL (60-115)
[2022-06-06] MEDS: Dextrose 5 % and Lactated Ring 1,000 ML 80 ML IVCONT (12:21)
[2022-06-06 15:40] LABS: Appearance Urine Clear; Color Urine Yellow; Glucose Urine UA Negative (Negative); Leukocyte Esterase Urine Negative (Negative); Nitrite Urine Negative (Negative); PH 5.5 (5.0-9.0); UMIC TRIGGER UA YES; Urine Blood Negative (Negative); Urine Ketones Negative (Negative); Urine Protein 30 (1+) mg/dL (Neg-Trace)
[2022-06-06 15:53] LABS: Bacteria Urine None Seen (None Seen); RBC Urine 0-2 /HPF (0-2); Squamous Epithelial Cell Urine 0-2 /HPF (0-2); WBC Urine 0-5 /HPF (0-5)
[2022-06-06 15:55] LABS: Creatinine Urine 249.15 mg/dL; Sodium Urine Random < 20.0 mmol/L; Total Protein Urine Random 29 mg/dL (<12)
[2022-06-06 16:00] VITALS: BP 119/69; PULSE 108; RESP 19; TEMP 36.6; O2SAT 95
[2022-06-06 16:16] LABS: Glucose, Whole Blood 174 mg/dL (60-115)
[2022-06-06 19:35] VITALS: BP 105/61; PULSE 104; RESP 18; TEMP 36.4; O2SAT 94
[2022-06-06 19:46] LABS: Glucose, Whole Blood 153 mg/dL (60-115)
[2022-06-06] MEDS: Insulin Lispro 100 UNIT/ML 3 ML VIAL SUBCUT (21:28)
[2022-06-06] MEDS: traZODone HCL 50 MG TABLET 150 MG PO (21:30)
[2022-06-06] MEDS: Dextrose 5 % and Lactated Ring 1,000 ML 120 ML IVCONT (23:06)
[2022-06-07] VITALS (7 sets, daily range): BP systolic 103–130; BP diastolic 64–74; PULSE 100–118; RESP 16–25; TEMP 36.1–37.6; O2SAT 91–99
[2022-06-07] MEDS: Morphine Sulfate 4 MG/ML CARTRIDGE IVPUSH ×4 (00:38→19:58)
[2022-06-07] MEDS: Heparin Sodium,Porcine 5,000 UNIT/ML VIAL 5000 UNIT SUBCUT ×3 (05:42→21:46)
--- NOTE | 2022-06-07 07:00 | CA_ITS ---
Transthoracic Echocardiogram Patient (Last, First, Middle): Titus Benitez, Gender: Male Date of : 1965 Age: 56 Procedure Date: 06/07/2022 Procedure Type: Transthoracic Echocardiogram Location: [facility] [place] Height: 177.8 cm Weight: 121.56 kg BSA: 2.36 m2 Heart Rate: 111 bpm BP: 119 / 68 mmHg Yarder Operator: SB Referring MD: Shayne Albarado MD Meter Technician: Hesham Jalloh MD Symptoms: chf Study Quality: Technically Difficult ECG Rhythm: Sinus tachycardia Conclusions: - 1. Technically limited study despite use of contrast agent 2. Normal LV systolic function with LVEF of 55-60% 3. Limited visualization of cardiac valvular structure with normal cardiac valvular Doppler is 4. Normal calculated RV systolic pressure on this study Findings Procedure Information Contrast agent, definity, is being given per protocol without apparent complications. Left Ventricle Normal left ventricular size, thickness, and systolic function. The visually estimated ejection fraction is between 55-60%. Diastolic function is indeterminate on the basis of available data. Right Ventricle The right ventricle was not well visualized. Atria The left atrium was not well visualized. Interatrial shunt cannot be excluded. The right atrium was not well visualized. Aortic Valve The aortic valve was not well visualized. There is no aortic valve stenosis. There is no aortic valve regurgitation. Mitral Valve The mitral valve was not well visualized. There is no mitral valve regurgitation. There is no mitral valve stenosis. Pulmonic Valve The pulmonic valve was not well visualized. Tricuspid Valve The tricuspid valve was not well visualized. There is no evidence of pulmonary hypertension. Great Vessels The aorta was not well visualized. The pulmonary artery was not well visualized. Venous The inferior vena cava was not well visualized. Pericardium/Pleural The pericardium was not well visualized. Prior Study Comparison No prior study available for comparison. Measurements 2D Linear Measurements IVSd: 0.86 0.6-0.9/0.6-1.0 cm LVIDd: 5.76 3.9-5.3/4.2-5.9 cm LVIDd Index: 2.44 2.4-3.2/2.2-3.1 cm/m2 LVIDs: 4.07 2.0-3.6 cm LVPWd: 0.74 0.7-1.1 cm LA Diam: 3.90 2.7-3.8/3.0-4.0 cm LAIDs Index: 1.65 1.5-2.3 cm/m2 LV Mass: 216.40 67-162/88-224 g LV Mass Index: 91.69 43-95/49-115 g/m2 LVOT Diam: 2.40 3.0+(-)1.3 cm 2D Systolic Function EF 4C: 61.00 >55% EF 2C: 57.30 >55% EF BiP: 58.90 >55% Mitral Valve MV Pk E: 0.75 MV PK A: 0.48 MV Decel Time: 147.00 E/A: 1.60 E'Lateral: 14.80 E'Medial: 7.40 E/E' Med: 10.20 E/E' Lat: 5.10 PHT: 43.00 MVA PHT: 5.12 Decel [place]: 5.13 Aortic Valve AoV Pk Anibal: 1.20 AoV Mn Anibal: 0.86 AoV VTI: 0.16 AoV Pk Grad: 6.00 Aov Mn Grad: 4.00 MERCEDES Cont.VTI: 4.52 LVOT LVOT Pk Anibal: 1.09 LVOT Mn Anibal: 0.70 LVOT VTI: 0.16 LVOT Pk Grad: 5.00 LVOT Mn Grad: 2.00 LVOT Diam: 2.40 LVOT Area: 4.52 Diastolic Function MV Pk E: 0.75 MV Pk A: 0.48 E/A: 1.60 E'Medial: 7.40 E/E' Med: 10.20 E' Laterial: 14.80 E/E' Lat: 5.10 Right Ventricle TAPSE (mm): 24.00 TVS' Anibal: 18.00 Tricuspid Valve TR Pk Anibal: 2.00 TR Pk Grad: 16.00 RA Press: 3.00 RVSP: 19.00 Great Vessels Aorta Sinus of Valsalva: 3.60 2.0-3.5 cm Ao Asc: 3.30 2.1-3.4 cm Pulmonary Valve PV Pk Anibal: 1.15 Peak PV Grad: 5.00 Updated in Other Vendor System with Status of Final Hesham Jalloh MD electronically signed on 06/07/2022 6:00:38 PM with status of Final
[2022-06-07 07:49] LABS: Glucose, Whole Blood 176 mg/dL (60-115)
[2022-06-07] MEDS: carvediloL 12.5 MG TABLET PO (08:05)
[2022-06-07] MEDS: Insulin Lispro 100 UNIT/ML 3 ML VIAL SUBCUT ×2 (08:05→11:59)
[2022-06-07] MEDS: 0.9 % Sodium Chloride Flush 3 ML SYRINGE IVFLUSH ×2 (08:05→16:20)
[2022-06-07] MEDS: busPIRone HCl 5 MG TABLET PO (08:06)
[2022-06-07] MEDS: Dextrose 5 % and Lactated Ring 1,000 ML 120 ML IVCONT (08:08)
[2022-06-07 08:13] LABS: Hematocrit 28.2 % (42.0-52.0); Mean Corpuscular HGB Conc 31.9 g/dl (31.0-36.0); Mean Corpuscular Hemoglobin 27.8 pg (27.0-33.0); Mean Platelet Volume 10.3 fL (9.4-12.4); Platelet Count 199 X10*3/uL (160-400); Red Blood Count 3.24 X10*6/uL (4.60-5.80); Red Cell Distribution Width 13.8 % (11.0-16.0); White Blood Count 5.2 X10*3/uL (4.8-10.8)
--- NOTE | 2022-06-07 08:18 | PM.PNGS ---
Subjective Subjective Date of Service: 06/07/22 <Bertha Fernandez PA-C - Last Filed: 06/07/22 08:27> 06/08/22 <Lit Norton MD - Last Filed: 06/08/22 10:15> Interval history: Had rapid response for SOB over weekend- CXR showed possible pleural effusions. BNP, troponin negative. Given lasix. Echo pending. New Site improved following multiple loose stools. Denies SOB this morning. Continues with diarrhea. Tolerating clear liquids without N/V. Was OOB minimally this weekend. <Bertha Fernandez PA-C - Last Filed: 06/07/22 08:27> Physical Exam Vital Signs: Vital Signs: Last Vital Signs Temp 98.3 F 06/07/22 07:44 Pulse 117 H 06/07/22 07:44 Resp 18 06/07/22 07:44 BP 124/74 06/07/22 07:44 Pulse Ox 95 06/07/22 07:44 O2 Del Method 06/07/22 07:44 O2 Flow Rate 3 06/07/22 07:44 Oxygen Flow Rate 2.0 06/05/22 10:00 BMI result Body Mass Index 38.4 <Bertha Fernandez PA-C - Last Filed: 06/07/22 08:27> Const: General: comfortable and no acute distress <YESENIA Wilson Last Filed: 06/07/22 08:27> Orientation/consciousness: patient oriented x3 <Bertha Fernandez PA-C - Last Filed: 06/07/22 08:27> Resp: Effort & Inspection: normal respiratory effort <Bertha Fernandez PA-C - Last Filed: 06/07/22 08:27> Cardio: Rate: tachycardic <YESENIA Wilson Last Filed: 06/07/22 08:27> GI: Inspection: Yes distended and Yes incision (clean) <YESENIA Wilson Last Filed: 06/07/22 08:27> Palpation (GI): Soft to palpation, Tenderness to palpation present (GI) (right sided) with no rebound tenderness, no guarding and not rigid <YESENIA Wilson Last Filed: 06/07/22 08:27> Percussion: Yes tympanic to percussion <YESENIA Wilson Last Filed: 06/07/22 08:27> Skin: General skin exam: no rashes or lesions noted <YESENIA Wilson Last Filed: 06/07/22 08:27> Neuro: General: patient oriented x3 <YESENIA Wilson Last Filed: 06/07/22 08:27> Extrem: General: Yes no clubbing, cyanosis or edema <YESENIA Wilson Last Filed: 06/07/22 08:27> Objective Data Active Medications Albuterol Sulfate (Albuterol Sulfate (0.042%) 1.25 Mg/3 Ml Vial.Neb) 1.25 mg INHALE RQ6H PRN PRN Reason: shortness of breath Atorvastatin Calcium (Atorvastatin Calcium 10 Mg Tablet) 10 mg PO BEDTIME [facility] Last Admin: 06/06/22 21:32 Dose: Not Given Documented By: YOSSI Non-Admin Reason: Patient Refused Buspirone HCl (Buspirone Hcl 5 Mg Tablet) 5 mg PO DAILY [facility] Last Admin: 06/07/22 08:06 Dose: 5 mg Documented By: NYA Carvedilol (Carvedilol 12.5 Mg Tablet) 12.5 mg PO BID [facility]; Protocol Last Admin: 06/07/22 08:05 Dose: 12.5 mg Documented By: NYA Dextrose (Dextrose 50 % 25 Gm/50 Ml Syringe) 25 gm IVPUSH Q15M PRN; Protocol PRN Reason: per Hypoglycemia Standing Ord. Glucose (Glucose Gel 15 Gm Gel..Gram.) 15 gm PO Q15M PRN; Protocol PRN Reason: per Hypoglycemia Standing Ord. Heparin Sodium (Porcine) (Heparin Sodium,Porcine 5,000 Unit/Ml Vial) 5,000 unit SUBCUT Q8H [facility] Last Admin: 06/07/22 05:42 Dose: 5,000 unit Documented By: YOSSI Dextrose/Lactated Ringer's (D5lr) 1,000 mls @ 120 mls/hr IVCONT .Q8H20M [facility] Last Admin: 06/07/22 08:08 Dose: 120 mls/hr Documented By: NYA Insulin Human Lispro (Insulin Lispro 100 Unit/Ml 3 Ml Vial) 0 unit SUBCUT QIDACHS [facility]; Protocol Last Admin: 06/07/22 08:05 Dose: 2 unit Documented By: NYA Morphine Sulfate (Morphine Sulfate 4 Mg/Ml Cartridge) 4 mg IVPUSH Q3H PRN; Protocol PRN Reason: Pain, Severe (Pain Scale 7-10) Last Admin: 06/07/22 00:38 Dose: 4 mg Documented By: YOSSI Ondansetron HCl (Ondansetron Hcl 4 Mg/2 Ml Vial) 4 mg IVPUSH Q8H PRN PRN Reason: Nausea Last Admin: 06/05/22 19:43 Dose: 4 mg Documented By: LUCI Oxycodone HCl (Oxycodone Hcl Immed Release 5 Mg Tablet) 10 mg PO Q4H PRN PRN Reason: Pain, Moderate (Pain Scale 4-6 Sertraline HCl (Sertraline Hcl 50 Mg Tablet) 150 mg PO BEDTIME [facility] Last Admin: 06/06/22 21:31 Dose: Not Given Documented By: YOSSI Non-Admin Reason: Patient Refused Simethicone (Simethicone 80 Mg Tab.Chew) 80 mg PO QIDWMHS PRN PRN Reason: gassiness Last Admin: 06/04/22 14:46 Dose: 80 mg Documented By: BENNETT Sodium Chloride (0.9 % Sodium Chloride Flush 3 Ml Syringe) [facility] Last Admin: 06/07/22 08:05 Dose: 3 ml Documented By: NYA Trazodone HCl (Trazodone Hcl 50 Mg Tablet) 150 mg PO BEDTIME [facility] Last Admin: 06/06/22 21:30 Dose: 150 mg Documented By: YOSSI <Bertha Fernandez PA-C - Last Filed: 06/07/22 08:27> Labs CBC & Chem 7: : 06/07/22 07:53 06/08/22 08:39 <Bertha Fernandez PA-C - Last Filed: 06/07/22 08:27> Labs: Laboratory Results - last 24 hr 06/06/22 06/06/22 06/06/22 10:55 15:21 15:21 POC Glucose 155 H Urine Color Yellow Urine Appearance Clear Urine pH 5.5 Ur Specific [place] 1.020 Urine Protein 30 (1+) H Urine Glucose (UA) Negative Urine Ketones Negative Urine Blood Negative Urine Nitrite Negative Ur Leukocyte Esterase Negative Urine RBC 0-2 Urine WBC 0-5 Ur Squamous Epith Cells 0-2 Urine Bacteria None Seen Hyaline Casts 11-20 U Random Total Protein 29 H Ur Random Sodium < 20.0 Urine Creatinine 249.15 06/06/22 06/06/22 06/07/22 16:09 19:38 07:40 POC Glucose 174 H 153 H 176 H Urine Color Urine Appearance Urine pH Ur Specific [place] Urine Protein Urine Glucose (UA) Urine Ketones Urine Blood Urine Nitrite Ur Leukocyte Esterase Urine RBC Urine WBC Ur Squamous Epith Cells Urine Bacteria Hyaline Casts U Random Total Protein Ur Random Sodium Urine Creatinine <Bertha Fernandez PA-C - Last Filed: 06/07/22 08:27> Procedures Date of Service Date of Service: 06/07/22 <Bertha Fernandez PA-C - Last Filed: 06/07/22 08:27> Progress Note: A&P Assessment and plan (1) JENNIFER (acute kidney injury): Status: Acute <Bertha Fernandez PA-C - Last Filed: 06/07/22 08:27> Assessment and Plan: Had rapid response over the weekend for shortness of of breath Now having diarrhea Abdomen distended but soft Incision clean Labs okay Keep on clear liquids for now Ambulate more Seen and examined independently Agree with MEHREEN Fernandez <Lit Norton MD - Last Filed: 06/08/22 10:15> (2) Primary appendiceal adenocarcinoma: Status: Acute <Bertha Fernandez PA-C - Last Filed: 06/07/22 08:27> (3) S/P right colectomy: Status: Acute <Bertha Fernandez PA-C - Last Filed: 06/07/22 08:27> Assessment and Plan: 56 year old male admitted with appendiceal carcinoma POD #6 s/p right colon resection. Developed post op ileus and possible pleural effusion. He is having a slow post operative course, which was expected. Abd remains distended and tympanitic, clean incision, mild R sided tenderness. He has GI function but will continue clear liquids given the level of distention. JENNIFER, tachycardic likely due to volume depletion with diarrhea. Continue IVF. Consider starting PPN given prolonged period without significant PO. Strongly encourage OOB/ambulation of halls and IS use. AM labs pending. Hospitalists following- appreciate input. <Bertha Fernandez PA-C - Last Filed: 06/07/22 08:27> Time Spent With Patient Time: Total time spent is greater than 50% in coordination of care (as documented) at patient's floor/unit and/or counseling patient: <Bertha Fernandez PA-C - Last Filed: 06/07/22 08:27> Quality Stroke Does the patient have a stroke diagnosis?: No <Bertha Fernandez PA-C - Last Filed: 06/07/22 08:27> VTE Prior VTE?: No <Bertha Fernandez PA-C - Last Filed: 06/07/22 08:27> VTE Risk Level:: Medical - moderate - high <Bertha Fernandez PA-C - Last Filed: 06/07/22 08:27> VTE Device Contraindication: N/A - Device Ordered <Bertha Fernandez PA-C - Last Filed: 06/07/22 08:27> VTE Drug Contraindication: N/A - Med Ordered <Bertha Fernandez PA-C - Last Filed: 06/07/22 08:27>
[2022-06-07 08:31] LABS: Anion Gap 15 (12-20); Blood Urea Nitrogen 44 mg/dL (9-16); Calcium 8.1 mg/dL (8.4-10.2); Carbon Dioxide 28 mmol/L (22-29); Chloride 99 mmol/L (96-108); Creatinine Clr Calc Pharmacy 70.4; Estimated Glomerular Filt Rate 47; Glucose Random 205 mg/dL (60-115); Potassium 3.2 mmol/L (3.3-5.1); Sodium 139 mmol/L (135-145)
[2022-06-07] MEDS: Potassium Chloride ER 20 MEQ TAB.ER.PRT 40 MEQ PO (09:36)
--- NOTE | 2022-06-07 10:20 | MHC.CLN ---
F/U DIET=CLEAR LIQUIDS, NO SOUP. ADDING ENSURE CLEAR TID. WILL PROVIDE 720 KCALS, 24 G PROTEIN IF CONSUMED 100%. TODAY IS DAY 7 WITH LIMITED INTAKE. DX ADENOCARCINOMA OF APPENDIX AND S/P SURGERY. IF PPN STARTED, RECOMMEND: DAY 1: PPN D10AA4.25 AT 60 ML PER HOUR. PROVIDES 734 KCALS, 61 G PROTEIN. REPLETE LYTES NEEDED. DAY 2: PPN D10AA4.25 AT 80 ML PER HOUR. PROVIDES 979 KCALS, 82 G PROTEIN. REPLETE LYTES NEEDED. CHECK TRIGLYCERIDES. DAY 3 MAX GOAL RATE: PPN D10AA4.25 AT 100 ML PER HOUR. ADD LIPIDS 20 ML PER HOUR OF 20% LIPIDS. PROVIDES 2184 KCALS (25.1 KCALS/KG CALCULATED METABOLIC WEIGHT), 102 G PROTEIN (1.17 G/KG CALCULATED METABOLIC WEIGHT). REPLETE LYTES NEEDS. DISCUSSED WITH PHARMACY, COMMUNICATED WITH PROVIDER. FOLLOW FOR DIET ADVANCEMENT/DIET TOLERANCE, LABS, PPN.
[2022-06-07] MEDS: oxyCODONE HCl Immed Release 5 MG TABLET 10 MG PO ×2 (10:45→16:20)
[2022-06-07] MEDS: Simethicone 80 MG TAB.CHEW PO (10:45)
--- NOTE | 2022-06-07 11:10 | PM.CNNEP ---
History of Present Illness Reason for Consult Consult date: 06/07/22 Reason for consult: JENNIFER Chief Complaint Chief complaint: adenocarcinoma of the appendix History of Present Illness Narrative: 56 yo M with a PMH of HTN, DM, KYM? on CPAP, morbid obesity, migranes, depression who was admitted under the general surgical services for resection of? appendiceal adenoCa for which he underwent R colon resection. Post op course was complicated by post op ileus,. He also had acute respiratory failure with hypoxia with JENNIFER & creatinine going up to around 2 . Has normal renal function at baseline. He had been on Hydrochlorothiazide, & losartan on hold. He received IV lasix and had been on IV fluids. Nephrology has been consulted to assist in his clinical care during his current hospital stay Review of Systems Review of Systems Yes all other systems are reviewed and are negative PMFSH Past Medical History Medical History Ambulates with cane Back pain due to injury Diabetes type 2, controlled Diabetic nephropathy associated with type 2 diabetes mellitus Dyslipidemia Epidermal cyst Eye inflammation HTN (hypertension) Morbid obesity Obesity (BMI 30-39.9) Sleep apnea Umbilical hernia Family History Family History Father Diabetes Heart disease Mother Diabetes Heart disease Other No family history of cancer Surgical History Surgical History H/O colonoscopy History of umbilical hernia repair (~01/08/22) Hx of removal of cyst S/P appendectomy Social History Social History Household Members: Significant Other Housing: House Are you a primary care provider to a significant other at home: No Do you presently have visiting nurse or other home services: Yes (Seth Cash sets up medications in Lock box) Alcohol intake: current Alcohol intake frequency: holidays/special occasions only Patient Tobacco Use Status: Never used Tobacco Use of substances other than those prescribed or required for medical reasons: No Currently Displaying Signs/Symptoms of Drug Intoxication Withdrawal: No Have you been hit, kicked, punched, or otherwise hurt by someone within the past year? If so, by whom?: No Spiritual Healthcare Practices: no Congregational Healthcare Practices: no Cultural Healthcare Practices: no Are you DNR?: No Advance Directives: No (will bring dos) Advance Directives Information Provided: No Advance Directives on File: No Recently lost weight without trying: No Nutrition Risks: No Nutritional Risk Poor oral hygiene: No service: No Current occupational status: disabled Meds Allergies Allergy/AdvReac Type Severity Reaction Status Date / Time lisinopril [LISINOPRIL] Allergy Mild RASH Verified 05/27/22 10:13 Active Medications: Current Medications Albuterol Sulfate (Albuterol Sulfate (0.042%) 1.25 Mg/3 Ml Vial.Neb) 1.25 mg INHALE RQ6H PRN PRN Reason: shortness of breath Atorvastatin Calcium (Atorvastatin Calcium 10 Mg Tablet) 10 mg PO BEDTIME [facility] Last Admin: 06/06/22 21:32 Dose: Not Given Buspirone HCl (Buspirone Hcl 5 Mg Tablet) 5 mg PO DAILY [facility] Last Admin: 06/07/22 08:06 Dose: 5 mg Carvedilol (Carvedilol 12.5 Mg Tablet) 12.5 mg PO BID [facility]; Protocol Last Admin: 06/07/22 08:05 Dose: 12.5 mg Dextrose (Dextrose 50 % 25 Gm/50 Ml Syringe) 25 gm IVPUSH Q15M PRN; Protocol PRN Reason: per Hypoglycemia Standing Ord. Glucose (Glucose Gel 15 Gm Gel..Gram.) 15 gm PO Q15M PRN; Protocol PRN Reason: per Hypoglycemia Standing Ord. Heparin Sodium (Porcine) (Heparin Sodium,Porcine 5,000 Unit/Ml Vial) 5,000 unit SUBCUT Q8H [facility] Last Admin: 06/07/22 05:42 Dose: 5,000 unit Dextrose/Lactated Ringer's (D5lr) 1,000 mls @ 120 mls/hr IVCONT .Q8H20M [facility] Last Admin: 06/07/22 08:08 Dose: 120 mls/hr Insulin Human Lispro (Insulin Lispro 100 Unit/Ml 3 Ml Vial) 0 unit SUBCUT QIDACHS [facility]; Protocol Last Admin: 06/07/22 08:05 Dose: 2 unit Morphine Sulfate (Morphine Sulfate 4 Mg/Ml Cartridge) 4 mg IVPUSH Q3H PRN; Protocol PRN Reason: Pain, Severe (Pain Scale 7-10) Last Admin: 06/07/22 09:36 Dose: 4 mg Ondansetron HCl (Ondansetron Hcl 4 Mg/2 Ml Vial) 4 mg IVPUSH Q8H PRN PRN Reason: Nausea Last Admin: 06/05/22 19:43 Dose: 4 mg Oxycodone HCl (Oxycodone Hcl Immed Release 5 Mg Tablet) 10 mg PO Q4H PRN PRN Reason: Pain, Moderate (Pain Scale 4-6 Last Admin: 06/07/22 10:45 Dose: 10 mg Sertraline HCl (Sertraline Hcl 50 Mg Tablet) 150 mg PO BEDTIME [facility] Last Admin: 06/06/22 21:31 Dose: Not Given Simethicone (Simethicone 80 Mg Tab.Chew) 80 mg PO QIDWMHS PRN PRN Reason: gassiness Last Admin: 06/07/22 10:45 Dose: 80 mg Sodium Chloride (0.9 % Sodium Chloride Flush 3 Ml Syringe) 3 ml IVFLUSH QSHIFT [facility] Last Admin: 06/07/22 08:05 Dose: 3 ml Trazodone HCl (Trazodone Hcl 50 Mg Tablet) 150 mg PO BEDTIME [facility] Last Admin: 06/06/22 21:30 Dose: 150 mg Home Medications Medication Instructions Recorded Confirmed Last Taken Type atorvastatin 10 mg tablet 10 mg PO BEDTIME 10/22/20 05/27/22 03/26/22 History carvedilol 12.5 mg tablet 12.5 mg PO Q12H 10/22/20 05/27/22 03/26/22 History cholecalciferol (vitamin D3) 25 25 mcg PO DAILY 10/22/20 05/27/22 03/26/22 History mcg (1,000 unit) capsule losartan 50 mg tablet 50 mg PO DAILY 11/04/20 05/27/22 03/26/22 History trazodone 150 mg tablet 150 mg PO BEDTIME 11/04/20 05/27/22 03/26/22 History hydrochlorothiazide 25 mg tablet 25 mg PO DAILY 11/19/20 05/27/22 03/26/22 History buspirone 5 mg tablet 1 tab PO DAILY 01/04/22 05/27/22 03/26/22 History sertraline 100 mg tablet 1.5 tab PO BEDTIME 01/04/22 05/27/22 03/26/22 History dulaglutide 3 mg/0.5 mL 3 mg subcut FR@0900 03/27/22 05/27/22 03/26/22 History subcutaneous pen injector (Trulicity) topiramate 50 mg tablet (Topamax) 50 mg PO BID PRN Tremor(S) 03/27/22 05/27/22 Unknown History zolpidem 10 mg tablet 10 mg PO BEDTIME PRN Sleep 03/27/22 05/27/22 Unknown History Physical Exam Vital Signs: Last Vital Signs Temp 98.3 F 06/07/22 07:44 Pulse 117 H 06/07/22 07:44 Resp 18 06/07/22 07:44 BP 124/74 06/07/22 07:44 Pulse Ox 95 06/07/22 07:44 O2 Del Method 06/07/22 07:44 O2 Flow Rate 3 06/07/22 07:44 Oxygen Flow Rate 2.0 06/05/22 10:00 BMI result Body Mass Index 38.4 Const General: cooperative Orientation/consciousness: patient oriented x3 Eyes EOM: EOMs intact bilaterally Resp Auscultation: crackles and diminished lung sounds Cardio Rate: regular rate GI Palpation (GI): Soft to palpation Skin Lesions: no lesions Neuro General: patient oriented x3 and moves all extremities Results Lab Results Result Diagrams: 06/07/22 07:53 06/07/22 07:53 Lab results: Chemistry 06/05/22 06/06/22 06/06/22 08:09 00:55 05:21 Sodium 143 142 143 Potassium 4.1 3.8 3.7 Carbon Dioxide 33 H 30 H 31 H BUN 24 H D 39 H D 44 H Creatinine 2.10 H 1.97 H 2.03 H Calcium 8.8 D 8.5 8.4 06/07/22 07:53 Sodium 139 Potassium 3.2 L Carbon Dioxide 28 BUN 44 H Creatinine 1.53 H Calcium 8.1 L Hematology 06/05/22 06/06/22 06/07/22 08:09 00:55 07:53 WBC 6.1 6.4 5.2 Hgb 10.3 L 10.7 L 9.0 L Plt Count 173 210 199 Urinalysis 06/06/22 15:21 Urine Color Yellow Urine Appearance Clear Urine pH 5.5 Ur Specific [place] 1.020 Urine Protein 30 (1+) H Urine Glucose (UA) Negative Urine Ketones Negative Urine Blood Negative Urine Nitrite Negative Ur Leukocyte Esterase Negative Urine RBC 0-2 Urine WBC 0-5 Ur Squamous Epith Cells 0-2 Hyaline Casts 11-20 Urine Studies 06/06/22 15:21 Urine Creatinine 249.15 Assessment and Plan (1) JENNIFER (acute kidney injury): Status: Acute Plan Acute Kidney Injury due to tubular injury No reason to suspect GN/AIN Urine output fair; D/C IV fluids; Lasix 40 mg IV one dose today Can have PPN/TPN whatever Surgery feels appropriate Renal function better this AM; C/W rest of current supportive care Shall closely follow up Procedures Date of Service Date of Service: 06/07/22
[2022-06-07 11:39] LABS: Glucose, Whole Blood 173 mg/dL (60-115)
--- NOTE | 2022-06-07 13:24 | MHC.CM.PN ---
Per MD rounds plan for echo and renal U/S- not ready for d/c. CM will continue to follow for d/c planning needs.
[2022-06-07 14:00] LABS: Magnesium 2.1 mg/dL (1.6-2.6); Phosphorus 2.9 mg/dL (2.7-4.5)
[2022-06-07 14:39] LABS: Glucose, Whole Blood 182 mg/dL (60-115)
--- NOTE | 2022-06-07 14:48 | PM.EVENT ---
Event Note Date of Service: 06/08/22 Event Note: Had some nausea Some pain in the right side when he gets nauseous Still with loose stools Abdomen soft no still distended No fever Labs okay Ambulating Would keep NPO ice chips for postop ileus Continue ambulation IV fluids Family updated - and daughter in room
--- NOTE | 2022-06-07 15:01 | HO.PM.IMPN ---
Subjective Subjective Date of Service: 06/07/22 Interval History: follow up for medical consultation had episode of shortness of breath overnight. repeat cxr showed bibasilar pleural effusions. received a dose of IV lasix KUB overnight showed ileus vs obstruction; had several BMs this morning and subsequently is feeling somewhat better Review of Systems Review of Systems: Yes all other systems are reviewed and are negative Constitutional Constitutional: Denies chills and Denies fever(s) Cardiovascular Cardiovascular: Denies chest pain, Denies palpitations and Reports dyspnea Respiratory Respiratory: Denies cough and Reports dyspnea Gastrointestinal Gastrointestinal: Reports abdominal pain, Reports loose stools, Reports nausea and Denies vomiting Endocrine Endocrine: Denies palpitations Physical Exam Vital Signs: Vital Signs: Last Vital Signs Temp 97.0 F 06/07/22 11:34 Pulse 113 H 06/07/22 11:34 Resp 18 06/07/22 11:34 BP 103/65 06/07/22 11:34 Pulse Ox 99 06/07/22 11:34 O2 Del Method 06/07/22 11:34 O2 Flow Rate 3 06/07/22 11:34 Oxygen Flow Rate 2.0 06/05/22 10:00 BMI result Body Mass Index 38.4 Objective Data Active Medications Albuterol Sulfate (Albuterol Sulfate (0.042%) 1.25 Mg/3 Ml Vial.Neb) 1.25 mg INHALE RQ6H PRN PRN Reason: shortness of breath Atorvastatin Calcium (Atorvastatin Calcium 10 Mg Tablet) 10 mg PO BEDTIME [facility] Last Admin: 06/06/22 21:32 Dose: Not Given Documented By: YOSSI Non-Admin Reason: Patient Refused Buspirone HCl (Buspirone Hcl 5 Mg Tablet) 5 mg PO DAILY [facility] Last Admin: 06/07/22 08:06 Dose: 5 mg Documented By: NYA Carvedilol (Carvedilol 12.5 Mg Tablet) 12.5 mg PO BID [facility]; Protocol Last Admin: 06/07/22 08:05 Dose: 12.5 mg Documented By: NYA Dextrose (Dextrose 50 % 25 Gm/50 Ml Syringe) 25 gm IVPUSH Q15M PRN; Protocol PRN Reason: per Hypoglycemia Standing Ord. Glucose (Glucose Gel 15 Gm Gel..Gram.) 15 gm PO Q15M PRN; Protocol PRN Reason: per Hypoglycemia Standing Ord. Heparin Sodium (Porcine) (Heparin Sodium,Porcine 5,000 Unit/Ml Vial) 5,000 unit SUBCUT Q8H [facility] Last Admin: 06/07/22 14:18 Dose: 5,000 unit Documented By: NYA Dextrose/Lactated Ringer's (D5lr) 1,000 mls @ 120 mls/hr IVCONT .Q8H20M [facility] Last Admin: 06/07/22 08:08 Dose: 120 mls/hr Documented By: NYA Promethazine HCl 12.5 mg/ (Sodium Chloride) 50.5 mls @ 202 mls/hr IV Q6H PRN PRN Reason: Nausea and Vomiting Acetaminophen (Ofirmev) 1,000 mg in 100 mls @ 400 mls/hr IV Q6H PRN PRN Reason: abdominal pain Multivitamins 14 ml/ Trace Metals 1.4 ml/ Amino Acids/Electrolytes/Dextrose 1,440 mls @ 60 mls/hr IV DAILY@1800 TEENA Stop: 06/08/22 17:59 Insulin Human Lispro (Insulin Lispro 100 Unit/Ml 3 Ml Vial) 0 unit SUBCUT QIDACHS [facility]; Protocol Last Admin: 06/07/22 11:59 Dose: 2 unit Documented By: NYA Morphine Sulfate (Morphine Sulfate 4 Mg/Ml Cartridge) 4 mg IVPUSH Q3H PRN; Protocol PRN Reason: Pain, Severe (Pain Scale 7-10) Last Admin: 06/07/22 14:19 Dose: 4 mg Documented By: NYA Ondansetron HCl (Ondansetron Hcl 4 Mg/2 Ml Vial) 4 mg IVPUSH Q8H PRN PRN Reason: Nausea Last Admin: 06/05/22 19:43 Dose: 4 mg Documented By: LUCI Oxycodone HCl (Oxycodone Hcl Immed Release 5 Mg Tablet) 10 mg PO Q4H PRN PRN Reason: Pain, Moderate (Pain Scale 4-6 Last Admin: 06/07/22 10:45 Dose: 10 mg Documented By: NYA Sertraline HCl (Sertraline Hcl 50 Mg Tablet) 150 mg PO BEDTIME [facility] Last Admin: 06/06/22 21:31 Dose: Not Given Documented By: YOSSI Non-Admin Reason: Patient Refused Simethicone (Simethicone 80 Mg Tab.Chew) 80 mg PO QIDWMHS PRN PRN Reason: gassiness Last Admin: 06/07/22 10:45 Dose: 80 mg Documented By: NYA Sodium Chloride (0.9 % Sodium Chloride Flush 3 Ml Syringe) 3 ml IVFLUSH QSHIFT [facility] Last Admin: 06/07/22 08:05 Dose: 3 ml Documented By: NYA Trazodone HCl (Trazodone Hcl 50 Mg Tablet) 150 mg PO BEDTIME [facility] Last Admin: 06/06/22 21:30 Dose: 150 mg Documented By: YOSSI Labs CBC & Chem 7: 06/07/22 07:53 06/07/22 07:53 Labs: Laboratory Results - last 24 hr 06/06/22 06/06/22 06/06/22 15:21 15:21 16:09 MCV MCH MCHC RDW Plt Count MPV Absolute Nucleated RBC Nucleated RBC % (auto) Anion Gap Estim Creat Clear Calc Estimated GFR POC Glucose 174 H Random Glucose Calcium Phosphorus Magnesium Urine Color Yellow Urine Appearance Clear Urine pH 5.5 Ur Specific [place] 1.020 Urine Protein 30 (1+) H Urine Glucose (UA) Negative Urine Ketones Negative Urine Blood Negative Urine Nitrite Negative Ur Leukocyte Esterase Negative Urine RBC 0-2 Urine WBC 0-5 Ur Squamous Epith Cells 0-2 Urine Bacteria None Seen Hyaline Casts 11-20 U Random Total Protein 29 H Ur Random Sodium < 20.0 Urine Creatinine 249.15 06/06/22 06/07/22 06/07/22 19:38 07:40 07:53 MCV 87.0 MCH 27.8 MCHC 31.9 RDW 13.8 Plt Count 199 MPV 10.3 Absolute Nucleated RBC 0.050 H Nucleated RBC % (auto) 1.0 H Anion Gap Estim Creat Clear Calc Estimated GFR POC Glucose 153 H 176 H Random Glucose Calcium Phosphorus Magnesium Urine Color Urine Appearance Urine pH Ur Specific [place] Urine Protein Urine Glucose (UA) Urine Ketones Urine Blood Urine Nitrite Ur Leukocyte Esterase Urine RBC Urine WBC Ur Squamous Epith Cells Urine Bacteria Hyaline Casts U Random Total Protein Ur Random Sodium Urine Creatinine 06/07/22 06/07/22 06/07/22 07:53 11:32 14:34 MCV MCH MCHC RDW Plt Count MPV Absolute Nucleated RBC Nucleated RBC % (auto) Anion Gap 15 Estim Creat Clear Calc 70.4 Estimated GFR 47 POC Glucose 173 H 182 H Random Glucose 205 H Calcium 8.1 L Phosphorus 2.9 Magnesium 2.1 Urine Color Urine Appearance Urine pH Ur Specific [place] Urine Protein Urine Glucose (UA) Urine Ketones Urine Blood Urine Nitrite Ur Leukocyte Esterase Urine RBC Urine WBC Ur Squamous Epith Cells Urine Bacteria Hyaline Casts U Random Total Protein Ur Random Sodium Urine Creatinine Assessment and Plan (1) JENNIFER (acute kidney injury): Status: Acute Plan This is a 56 yo M with a PMH of HTN, DM, KYM on CPAP, morbid obesity, migranes, depression who is admitted under the general surgical services for resection of appendiceal adenoCa. Medical consulted for management of DM and HTN Acute respiratory failure with hypoxia. No hypoxia noted no h/o lung disease likely restrictive from abdominal distention CXR showing atelectasis. no pneumonia. Trop negative EKG ST with PVC Echo pending supplemental O2 as needed IS Heart failure/fluid overload, acute, unspecified IV fluids stopped asper nephrology, once dose of IV lasix given check BNP in the am Hypokalemia Repleted JENNIFER. Trending down Likely from decreased PO intake continue IVF follow BMP nephrology eval renal us neg Appendiceal adenoCa - s/p R colon resection course complicated by post op ileus mgmt per gen surg. oncology evaluation once Ileus, surgical issues resolved. thrombocytopenia resolved DM ss, ada diet HTN BP under adequate control Continue Coreg Hydrochlorothiazide, losartan on hold HLD continue statin KYM - continue CPAP at night Mood continue zoloft, buspar *smudge cells noted on CBC no lymphocytosis, or leukocytosis recommend outpatient follow up dvt ppx - heparin attending - dr. Bergman we will follow along with you Quality Stroke Does the patient have a stroke diagnosis?: No VTE Prior VTE?: No VTE Risk Level:: Medical - moderate - high VTE Device Contraindication: N/A - Device Ordered VTE Drug Contraindication: N/A - Med Ordered
[2022-06-07] MEDS: Furosemide 40 MG/4 ML VIAL IVPUSH (15:41)
[2022-06-07 16:33] LABS: Glucose, Whole Blood 158 mg/dL (60-115)
[2022-06-07] MEDS: Acetaminophen 1,000 MG/100 ML PIGGYBACK 400 MG IV (16:52)
[2022-06-07] MEDS: ondansetron HCL 4 MG/2 ML VIAL IVPUSH (17:47)
--- NOTE | 2022-06-07 17:54 | CONS_ITS ---
DATE OF SERVICE: 06/06/2022 REASON FOR CONSULTATION: Consult requested by the medical team to evaluate and help in my management of patient with acute kidney injury. HISTORY OF PRESENT ILLNESS: The patient is a 56-year-old male with past medical history of hypertension, type 2 diabetes mellitus, sleep apnea, on CPAP, who recently was diagnosed to have adeno CA of the appendix and presented on 04/02 with abdominal pain. A CT scan of the abdomen showed acute appendicitis and underwent a laparoscopic appendectomy and drain placement right paracolic gutter. He was find to have a perforated necrotic appendicitis. Pathology showed adeno CA of the appendix, which was poorly differentiated. The patient underwent colectomy on 06/01, and patient was seen by the medical team for uncontrolled hypertension, diabetes. His creatinine level was 0.8 until 05/2021, but his creatinine increased to 2.1 yesterday. Today, it is 2.03. In spite of hydration, there is no improvement, and hence renal consultation has been requested. The patient is resting in the bed and is feeling better. He has been getting IV fluids. Overnight yesterday, he did have shortness of breath and received 1 dose of IV Lasix. The patient states that he is passing urine. He does not have a Stanton catheter at the present time. Review of blood pressure reading shows that he does not have any hypotensive episodes in the last few days. He has apparently not been drinking enough fluids. He was not on any nonsteroidal anti-inflammatory agents. PAST MEDICAL HISTORY: History of back pain due to injury, type 2 diabetes mellitus, diabetic nephropathy, dyslipidemia, epidermal cyst, hypertension, morbid obesity, sleep apnea, umbilical hernia, and recent adeno CA of the appendix, status post surgery. FAMILY HISTORY: Father , diabetes and heart disease. Mother is also having heart disease and diabetes. PAST SURGICAL HISTORY: History of colonoscopy, umbilical hernia repair, cyst removal, appendectomy as mentioned before. PERSONAL AND SOCIAL HISTORY: Currently takes alcohol occasionally. He does not smoke. Does not use drugs. ALLERGIES: PATIENT ALLERGIES LISINOPRIL. MEDICATIONS: As outpatient, patient reviewed in detail. PHYSICAL EXAMINATION: GENERAL: Patient is resting in the bed. Awake, alert, oriented x3. No significant distress. VITAL SIGNS: Blood pressure was 113/70, pulse 110, temperature 97 degree Fahrenheit. HEENT: Shows pupils equal bilaterally to light. No jugular venous distention is noted. Neck was supple. CARDIOVASCULAR SYSTEM: S1, S2 without rub. RESPIRATORY SYSTEM: Mild decreased in the bases. Occasional crepitation. ABDOMEN: Obese, soft, large postsurgical scar with rita. EXTREMITIES: Trace edema. There is no peripheral cyanosis or clubbing. LABORATORY DATA: Done recently. Sodium 143, potassium 3.7, chloride 98, CO2 31, BUN 44, creatinine 2.03, estimated GFR 34, calcium 8.4. Hemoglobin was 10.7, hematocrit 34.2, WBC 6.4, platelets 210. There are no recent urine studies. IMPRESSION: 1. 56-year-old male with acute kidney injury. Acute kidney injury in this patient could be due to prerenal state as the patient has not been able to take adequate p.o. free fluids. We certainly need to rule out obstruction in this patient. I do not have urinalysis to comment on the possibility of acute GN/interstitial disease. The patient is not on any nephrotoxic agents. At the present time, did not receive any nephrotoxic agents/iodinated contrast dyes. His baseline creatinine is close to normal. 2. Status post adenocarcinoma with colon resection, appendectomy. 3. Type 2 diabetes mellitus. RECOMMENDATION: At this juncture, I have taken liberty to order full urinalysis. I have ordered spot urine for electrolytes, protein creatinine. I would avoid using nephrotoxic agents on this patient. I have taken the liberty to increase IV fluid rate to 125 mL/h. I have asked the medical team to order renal ultrasound to assess the size of the kidney and to rule out obstruction. I recommend checking renal function again in a.m. Further workup and management based on above investigations. Thank you for allowing me to participate in medical management. MD DENNIS Najear/WILFRED / [phone]
[2022-06-07 20:24] LABS: Glucose, Whole Blood 170 mg/dL (60-115)
[2022-06-07] MEDS: Albuterol Sulfate (0.042%) 1.25 MG/3 ML VIAL.NEB INHALE (23:46)
[2022-06-08] VITALS (9 sets, daily range): BP systolic 105–118; BP diastolic 56–69; PULSE 106–113; RESP 18–22; TEMP 35.6–36.6; O2SAT 92–98
[2022-06-08] MEDS: Furosemide 40 MG/4 ML VIAL IVPUSH (01:35)
[2022-06-08] MEDS: ondansetron HCL 4 MG/2 ML VIAL IVPUSH (02:07)
--- NOTE | 2022-06-08 02:37 | PC.NURSE ---
0115 pt c/o sob.crackles in bilateral lobes. sats 93% on 5L. notified and lasix 40mg given.pt instructed to void in urinal so we could measure output.
[2022-06-08] MEDS: Heparin Sodium,Porcine 5,000 UNIT/ML VIAL 5000 UNIT SUBCUT ×3 (07:03→20:30)
[2022-06-08 07:43] LABS: Glucose, Whole Blood 196 mg/dL (60-115)
[2022-06-08] MEDS: Morphine Sulfate 4 MG/ML CARTRIDGE IVPUSH ×3 (08:29→23:21)
[2022-06-08] MEDS: Insulin Lispro 100 UNIT/ML 3 ML VIAL SUBCUT (08:29)
[2022-06-08] MEDS: 0.9 % Sodium Chloride Flush 3 ML SYRINGE IVFLUSH ×2 (08:29→17:14)
--- NOTE | 2022-06-08 08:44 | PM.PNGS ---
Subjective Subjective Date of Service: 06/08/22 <Bertha Fernandez PA-C - Last Filed: 06/08/22 08:51> 06/09/22 <Lit Norton MD - Last Filed: 06/09/22 08:31> Interval history: No more vomiting since yesterday afternoon. Denies nausea. Right sided abd pain improved. Continues with liquid stools, not passing much flatus but endorses belching. Feels SOB again, unable to take deep breaths. <Bertha Fernandez PA-C - Last Filed: 06/08/22 08:51> Physical Exam Vital Signs: Vital Signs: Last Vital Signs Temp 96.8 F 06/08/22 07:32 Pulse 107 H 06/08/22 07:32 Resp 18 06/08/22 07:32 BP 113/62 06/08/22 07:32 Pulse Ox 97 06/08/22 07:32 O2 Del Method 06/08/22 07:32 O2 Flow Rate 5 06/08/22 07:32 Oxygen Flow Rate 2.0 06/05/22 10:00 BMI result Body Mass Index 38.4 <Bertha Fernandez PA-C - Last Filed: 06/08/22 08:51> Const: General: no acute distress and alert <YESENIA Wilson Last Filed: 06/08/22 08:51> Orientation/consciousness: patient oriented x3 <Bertha Fernandez PA-C - Last Filed: 06/08/22 08:51> Resp: Effort & Inspection: normal respiratory effort <Bertha Fernandez PA-C - Last Filed: 06/08/22 08:51> Cardio: Rate: tachycardic <YESEINA Wilson Last Filed: 06/08/22 08:51> GI: Inspection: Yes distended (significantly) and Yes incision (clean) <YESENIA Wilson Last Filed: 06/08/22 08:51> Palpation (GI): Soft to palpation, Tenderness to palpation present (GI) (mild, right sided), no guarding and not rigid <YESENIA Wilson Last Filed: 06/08/22 08:51> Percussion: Yes tympanic to percussion <Bertha Fernandez PA-C - Last Filed: 06/08/22 08:51> Skin: General skin exam: no rashes or lesions noted <Bertha Fernandez PA-C - Last Filed: 06/08/22 08:51> Neuro: General: patient oriented x3 and moves all extremities <Bertha Fernandez PA-C - Last Filed: 06/08/22 08:51> Extrem: General: Yes no clubbing, cyanosis or edema <Bertha Fernandez PA-C - Last Filed: 06/08/22 08:51> Objective Data Active Medications Albuterol Sulfate (Albuterol Sulfate (0.042%) 1.25 Mg/3 Ml Vial.Neb) 1.25 mg INHALE RQ6H PRN PRN Reason: shortness of breath Last Admin: 06/07/22 23:46 Dose: 1.25 mg Documented By: STEPHANIE Atorvastatin Calcium (Atorvastatin Calcium 10 Mg Tablet) 10 mg PO BEDTIME [facility] Last Admin: 06/07/22 21:43 Dose: Not Given Documented By: YOSSI Non-Admin Reason: NPO Buspirone HCl (Buspirone Hcl 5 Mg Tablet) 5 mg PO DAILY [facility] Last Admin: 06/08/22 08:34 Dose: Not Given Documented By: NYA Non-Admin Reason: NPO Carvedilol (Carvedilol 12.5 Mg Tablet) 12.5 mg PO BID [facility]; Protocol Last Admin: 06/08/22 08:34 Dose: Not Given Documented By: NYA Non-Admin Reason: Patient Refused Dextrose (Dextrose 50 % 25 Gm/50 Ml Syringe) 25 gm IVPUSH Q15M PRN; Protocol PRN Reason: per Hypoglycemia Standing Ord. Glucose (Glucose Gel 15 Gm Gel..Gram.) 15 gm PO Q15M PRN; Protocol PRN Reason: per Hypoglycemia Standing Ord. Heparin Sodium (Porcine) (Heparin Sodium,Porcine 5,000 Unit/Ml Vial) 5,000 unit SUBCUT Q8H [facility] Last Admin: 06/08/22 07:03 Dose: 5,000 unit Documented By: YOSSI Promethazine HCl 12.5 mg/ (Sodium Chloride) 50.5 mls @ 202 mls/hr IV Q6H PRN PRN Reason: Nausea and Vomiting Multivitamins 14 ml/ Trace Metals 1.4 ml/ Amino Acids/Electrolytes/Dextrose 1,440 mls @ 60 mls/hr IV DAILY@1800 TEENA Stop: 06/08/22 17:59 Last Admin: 06/07/22 17:18 Dose: 60 mls/hr Documented By: MALIKA Acetaminophen (Ofirmev) 1,000 mg in 100 mls @ 400 mls/hr IV Q6H PRN PRN Reason: abdominal pain Last Infusion: 06/07/22 17:16 Dose: 0 mls/hr Documented By: NYA Insulin Human Lispro (Insulin Lispro 100 Unit/Ml 3 Ml Vial) 0 unit SUBCUT QIDACHS [facility]; Protocol Last Admin: 06/08/22 08:29 Dose: 2 unit Documented By: NYA Morphine Sulfate (Morphine Sulfate 4 Mg/Ml Cartridge) 4 mg IVPUSH Q3H PRN; Protocol PRN Reason: Pain, Severe (Pain Scale 7-10) Last Admin: 06/08/22 08:29 Dose: 4 mg Documented By: NYA Ondansetron HCl (Ondansetron Hcl 4 Mg/2 Ml Vial) 4 mg IVPUSH Q8H PRN PRN Reason: Nausea Last Admin: 06/08/22 02:07 Dose: 4 mg Documented By: YOSSI Oxycodone HCl (Oxycodone Hcl Immed Release 5 Mg Tablet) 10 mg PO Q4H PRN PRN Reason: Pain, Moderate (Pain Scale 4-6 Last Admin: 06/07/22 16:20 Dose: 10 mg Documented By: NYA Sertraline HCl (Sertraline Hcl 50 Mg Tablet) 150 mg PO BEDTIME [facility] Last Admin: 06/07/22 21:43 Dose: Not Given Documented By: YOSSI Non-Admin Reason: NPO Simethicone (Simethicone 80 Mg Tab.Chew) 80 mg PO QIDWMHS PRN PRN Reason: gassiness Last Admin: 06/07/22 10:45 Dose: 80 mg Documented By: NYA Sodium Chloride (0.9 % Sodium Chloride Flush 3 Ml Syringe) 3 ml IVFLUSH QSHIFT [facility] Last Admin: 06/08/22 08:29 Dose: 3 ml Documented By: NYA Trazodone HCl (Trazodone Hcl 50 Mg Tablet) 150 mg PO BEDTIME [facility] Last Admin: 06/07/22 21:43 Dose: Not Given Documented By: YOSSI Non-Admin Reason: NPO <Bertha Fernandez PA-C - Last Filed: 06/08/22 08:51> Labs CBC & Chem 7: : 06/09/22 07:58 06/08/22 08:39 <Bertha Fernandez PA-C - Last Filed: 06/08/22 08:51> Labs: Laboratory Results - last 24 hr 06/07/22 06/07/22 06/07/22 07:53 11:32 14:34 POC Glucose 173 H 182 H Phosphorus 2.9 Magnesium 2.1 06/07/22 06/07/22 06/08/22 16:19 20:16 07:32 POC Glucose 158 H 170 H 196 H Phosphorus Magnesium <Bertha Fernandez PA-C - Last Filed: 06/08/22 08:51> Procedures Date of Service Date of Service: 06/08/22 <YESENIA Wilson Last Filed: 06/08/22 08:51> Progress Note: A&P Assessment and plan (1) S/P right colectomy: Status: Acute <Bertha Fernandez PA-C - Last Filed: 06/08/22 08:51> Assessment and Plan: passing a lot of watery stool he says he is unable to control this no vomiting overnight abdomen distended but soft check CT scan stools for C diff path report: 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 Developed vomiting yesterday and continued liquid stools. His abd remains significantly distended and tympanitic. Will obtain CT scan abd/pelvis today and c diff. Continue NPO status. Continue IVF, PPN. Strongly encourage OOB/ambulation of halls and IS use. AM labs pending. Hospitalists following- appreciate input. <Bertha Fernandez PA-C - Last Filed: 06/08/22 08:51> Time Spent With Patient Time: Total time spent is greater than 50% in coordination of care (as documented) at patient's floor/unit and/or counseling patient: <Bertha Fernandez PA-C - Last Filed: 06/08/22 08:51> Quality Stroke Does the patient have a stroke diagnosis?: No <Bertha Fernandez PA-C - Last Filed: 06/08/22 08:51> VTE Prior VTE?: No <Bertha Fernandez PA-C - Last Filed: 06/08/22 08:51> VTE Risk Level:: Medical - moderate - high <YESENIA Wilson Last Filed: 06/08/22 08:51> VTE Device Contraindication: N/A - Device Ordered <Bertha Fernandez PA-C - Last Filed: 06/08/22 08:51> VTE Drug Contraindication: N/A - Med Ordered <YESENIA Wilson Last Filed: 06/08/22 08:51>
[2022-06-08 09:09] LABS: B Type Natriuretic Peptide 25 pg/mL (<100)
[2022-06-08 09:20] LABS: Anion Gap 17 (12-20); Blood Urea Nitrogen 70 mg/dL (9-16); Calcium 8.1 mg/dL (8.4-10.2); Carbon Dioxide 29 mmol/L (22-29); Chloride 96 mmol/L (96-108); Creatinine Clr Calc Pharmacy 46.2; Estimated Glomerular Filt Rate 29; Glucose Fasting 207 mg/dL (60-99); Potassium 3.4 mmol/L (3.3-5.1); Sodium 139 mmol/L (135-145)
--- NOTE | 2022-06-08 10:01 | PM.PNNEP ---
Subjective Subjective Date of Service: 06/08/22 Interval history: Events noted. All recent data reviewed. Renal function worse Physical Exam Vital Signs: Vital Signs: Last Vital Signs Temp 96.8 F 06/08/22 07:32 Pulse 107 H 06/08/22 07:32 Resp 18 06/08/22 07:32 BP 113/62 06/08/22 07:32 Pulse Ox 97 06/08/22 07:32 O2 Del Method 06/08/22 07:32 O2 Flow Rate 5 06/08/22 07:32 Oxygen Flow Rate 2.0 06/05/22 10:00 BMI result Body Mass Index 38.4 Const: General: no acute distress Orientation/consciousness: patient oriented x3 Eyes: EOM: EOMs intact bilaterally Resp: Auscultation: diminished lung sounds Cardio: Rate: regular rate GI: Palpation (GI): Soft to palpation Neuro: General: patient oriented x3 and moves all extremities Objective Data Labs CBC & Chem 7: 06/07/22 07:53 06/08/22 08:39 Labs: Laboratory Results - last 24 hr 06/07/22 06/07/22 06/07/22 07:53 11:32 14:34 Sodium Potassium Chloride Carbon Dioxide Anion Gap BUN Creatinine Estim Creat Clear Calc Estimated GFR POC Glucose 173 H 182 H Random Glucose Fasting Glucose Calcium Phosphorus 2.9 Magnesium 2.1 B-Natriuretic Peptide 06/07/22 06/07/22 06/08/22 16:19 20:16 07:32 Sodium Potassium Chloride Carbon Dioxide Anion Gap BUN Creatinine Estim Creat Clear Calc Estimated GFR POC Glucose 158 H 170 H 196 H Random Glucose Fasting Glucose Calcium Phosphorus Magnesium B-Natriuretic Peptide 06/08/22 06/08/22 08:35 08:39 Sodium 139 Potassium 3.4 Chloride 96 Carbon Dioxide 29 Anion Gap 17 BUN 70 H D Creatinine 2.33 H Estim Creat Clear Calc 46.2 Estimated GFR 29 POC Glucose Random Glucose TNP Fasting Glucose 207 H D Calcium 8.1 L Phosphorus Magnesium B-Natriuretic Peptide 25 Procedures Date of Service Date of Service: 06/08/22 Assessment & Plan Assessment and plan (1) JENNIFER (acute kidney injury): Status: Acute Assessment and Plan: Acute Kidney Injury due to tubular injury No reason to suspect GN/AIN Renal function worse; Going to get CT scan today; Needs CXR Urine sodium ordered; If CXR clear, would give one liter of NS ( 100/hr) Can have PPN/TPN as per Surgery team C/W rest of current supportive care Time Spent With Patient Time: Total time spent is greater than 50% in coordination of care (as documented) at patient's floor/unit and/or counseling patient: Progress Note: Quality Stroke Does the patient have a stroke diagnosis?: No
[2022-06-08 10:05] LABS: D Dimer High Sensitivity 3366 NG/ML
--- NOTE | 2022-06-08 10:18 | MHC.CLN ---
F/U DIET RX: NPO DAY 2: RECOMMEND INCREASING PPN D10AA4.25 TO 80 ML PER HOUR TO PROVIDE 979 KCALS, 82 G PROTEIN REPLETE LYTES NEEDED. CHECK TRIGLYCERIDES. DISCUSSED WITH PHARMACY, COMMUNICATED WITH PROVIDER FOLLOW FOR DIET ADVANCEMENT/DIET TOLERANCE, LABS, PPN
[2022-06-08 10:45] LABS: Albumin Level 3.2 g/dL (3.5-5.0); Magnesium 2.4 mg/dL (1.6-2.6); Phosphorus 5.7 mg/dL (2.7-4.5); Triglycerides 165 mg/dL
--- NOTE | 2022-06-08 10:51 | P.PNIM_ITS ---
Subjective Subjective Date of Service: 06/08/22 Interval History: follow up for medical consultation continued sob and abd pain started on PPN Review of Systems Review of Systems: Yes all other systems are reviewed and are negative Constitutional Constitutional: Denies chills and Denies fever(s) Cardiovascular Cardiovascular: Denies chest pain, Denies palpitations and Reports dyspnea Respiratory Respiratory: Denies cough and Reports dyspnea Gastrointestinal Gastrointestinal: Reports abdominal pain, Reports loose stools, Reports nausea and Denies vomiting Endocrine Endocrine: Denies palpitations Physical Exam Vital Signs: Vital Signs: Last Vital Signs Temp 96.8 F 06/08/22 07:32 Pulse 107 H 06/08/22 07:32 Resp 18 06/08/22 07:32 BP 113/62 06/08/22 07:32 Pulse Ox 97 06/08/22 07:32 O2 Del Method 06/08/22 07:32 O2 Flow Rate 5 06/08/22 07:32 Oxygen Flow Rate 2.0 06/05/22 10:00 BMI result Body Mass Index 38.4 Appearing in no acute distress lung sounds are clear to auscultation heart regular rate rhythm, clear S1, S2 positive bowel sounds, abdomen is soft, tender neuro patient is alert x3, no focal deficits Objective Data Active Medications Albuterol Sulfate (Albuterol Sulfate (0.042%) 1.25 Mg/3 Ml Vial.Neb) 1.25 mg INHALE RQ6H PRN PRN Reason: shortness of breath Last Admin: 06/07/22 23:46 Dose: 1.25 mg Documented By: STEPHANIE Atorvastatin Calcium (Atorvastatin Calcium 10 Mg Tablet) 10 mg PO BEDTIME [facility] Last Admin: 06/07/22 21:43 Dose: Not Given Documented By: YOSSI Non-Admin Reason: NPO Buspirone HCl (Buspirone Hcl 5 Mg Tablet) 5 mg PO DAILY [facility] Last Admin: 06/08/22 08:34 Dose: Not Given Documented By: NYA Non-Admin Reason: NPO Carvedilol (Carvedilol 12.5 Mg Tablet) 12.5 mg PO BID [facility]; Protocol Last Admin: 06/08/22 08:34 Dose: Not Given Documented By: NYA Non-Admin Reason: Patient Refused Dextrose (Dextrose 50 % 25 Gm/50 Ml Syringe) 25 gm IVPUSH Q15M PRN; Protocol PRN Reason: per Hypoglycemia Standing Ord. Glucose (Glucose Gel 15 Gm Gel..Gram.) 15 gm PO Q15M PRN; Protocol PRN Reason: per Hypoglycemia Standing Ord. Heparin Sodium (Porcine) (Heparin Sodium,Porcine 5,000 Unit/Ml Vial) 5,000 unit SUBCUT Q8H [facility] Last Admin: 06/08/22 07:03 Dose: 5,000 unit Documented By: YOSSI Promethazine HCl 12.5 mg/ (Sodium Chloride) 50.5 mls @ 202 mls/hr IV Q6H PRN PRN Reason: Nausea and Vomiting Multivitamins 14 ml/ Trace Metals 1.4 ml/ Amino Acids/Electrolytes/Dextrose 1,440 mls @ 60 mls/hr IV DAILY@1800 TEENA Stop: 06/08/22 17:59 Last Admin: 06/07/22 17:18 Dose: 60 mls/hr Documented By: MALIKA Acetaminophen (Ofirmev) 1,000 mg in 100 mls @ 400 mls/hr IV Q6H PRN PRN Reason: abdominal pain Last Infusion: 06/07/22 17:16 Dose: 0 mls/hr Documented By: NYA Insulin Human Lispro (Insulin Lispro 100 Unit/Ml 3 Ml Vial) 0 unit SUBCUT QIDACHS [facility]; Protocol Last Admin: 06/08/22 08:29 Dose: 2 unit Documented By: NYA Morphine Sulfate (Morphine Sulfate 4 Mg/Ml Cartridge) 4 mg IVPUSH Q3H PRN; Protocol PRN Reason: Pain, Severe (Pain Scale 7-10) Last Admin: 06/08/22 08:29 Dose: 4 mg Documented By: NYA Ondansetron HCl (Ondansetron Hcl 4 Mg/2 Ml Vial) 4 mg IVPUSH Q8H PRN PRN Reason: Nausea Last Admin: 06/08/22 02:07 Dose: 4 mg Documented By: YOSSI Oxycodone HCl (Oxycodone Hcl Immed Release 5 Mg Tablet) 10 mg PO Q4H PRN PRN Reason: Pain, Moderate (Pain Scale 4-6 Last Admin: 06/07/22 16:20 Dose: 10 mg Documented By: NYA Sertraline HCl (Sertraline Hcl 50 Mg Tablet) 150 mg PO BEDTIME [facility] Last Admin: 06/07/22 21:43 Dose: Not Given Documented By: YOSSI Non-Admin Reason: NPO Simethicone (Simethicone 80 Mg Tab.Chew) 80 mg PO QIDWMHS PRN PRN Reason: gassiness Last Admin: 06/07/22 10:45 Dose: 80 mg Documented By: NYA Sodium Chloride (0.9 % Sodium Chloride Flush 3 Ml Syringe) 3 ml IVFLUSH QSHIFT [facility] Last Admin: 06/08/22 08:29 Dose: 3 ml Documented By: NYA Trazodone HCl (Trazodone Hcl 50 Mg Tablet) 150 mg PO BEDTIME [facility] Last Admin: 06/07/22 21:43 Dose: Not Given Documented By: YOSSI Non-Admin Reason: NPO Labs CBC & Chem 7: 06/07/22 07:53 06/08/22 08:39 Labs: Laboratory Results - last 24 hr 06/07/22 06/07/22 06/07/22 07:53 11:32 14:34 D-Dimer High Sensitivty Anion Gap Estim Creat Clear Calc Estimated GFR POC Glucose 173 H 182 H Random Glucose Fasting Glucose Calcium Phosphorus 2.9 Magnesium 2.1 B-Natriuretic Peptide Albumin Triglycerides 06/07/22 06/07/22 06/08/22 16:19 20:16 07:32 D-Dimer High Sensitivty Anion Gap Estim Creat Clear Calc Estimated GFR POC Glucose 158 H 170 H 196 H Random Glucose Fasting Glucose Calcium Phosphorus Magnesium B-Natriuretic Peptide Albumin Triglycerides 06/08/22 06/08/22 06/08/22 08:35 08:39 09:24 D-Dimer High Sensitivty 3366 Anion Gap 17 Estim Creat Clear Calc 46.2 Estimated GFR 29 POC Glucose Random Glucose TNP Fasting Glucose 207 H D Calcium 8.1 L Phosphorus 5.7 H Magnesium 2.4 B-Natriuretic Peptide 25 Albumin 3.2 L Triglycerides 165 Assessment and Plan (1) JENNIFER (acute kidney injury): Status: Acute Plan This is a 56 yo M with a PMH of HTN, DM, KYM on CPAP, morbid obesity, migranes, depression who is admitted under the general surgical services for resection of appendiceal adenoCa. Medical consulted for management of DM and HTN Resp acidosis, Hx of KYM 7.25/75/71, not compensated on 5L NC has not been using his cpap as often while hospitalized Discussed with attending Dr. Norton, he felt the patient looked better and did not think he needed ICU transfer or BiPAP at this time Monitor closely for decompensation Encourage incentive spirometry Pleural effusion Chest CT showing effusion Plan for Thoracentesis Acute respiratory failure with hypoxia no h/o lung disease likely restrictive from abdominal distention CXR showing atelectasis. no pneumonia. Trop negative EKG ST with PVC Echo ef 55-60% supplemental O2 as needed IS Heart failure/fluid overload, acute, unspecified BNP25, seems less likely overload received one dose of lasix yesterday Hypokalemia Repleted JENNIFER. Trending up Likely from decreased PO intake follow BMP nephrology followin, rec 1 liter NS if CXR is normal renal us neg Appendiceal adenoCa - s/p R colon resection course complicated by post op ileus mgmt per gen surg. oncology evaluation once Ileus, surgical issues resolved. thrombocytopenia resolved DM ss, ada diet HTN BP under adequate control Continue Coreg Hydrochlorothiazide, losartan on hold HLD continue statin KYM continue CPAP at night Mood continue zoloft, buspar smudge cells noted on CBC no lymphocytosis, or leukocytosis recommend outpatient follow up Obesity BMI 38.5 Discussed importance of weight management as this may be contributing to worsening of other comorbidities dvt ppx - heparin attending - dr. Barrso Quality Stroke Does the patient have a stroke diagnosis?: No VTE Prior VTE?: No VTE Risk Level:: Medical - moderate - high VTE Device Contraindication: N/A - Device Ordered VTE Drug Contraindication: N/A - Med Ordered
[2022-06-08 11:59] LABS: Sodium Urine Random < 20.0 mmol/L
[2022-06-08 13:21] LABS: CDiff Gene PCR NEGATIVE (Negative)
[2022-06-08 13:50] LABS: Glucose, Whole Blood 136 mg/dL (60-115)
[2022-06-08] MEDS: 0.9 % Sodium Chloride 1,000 ML 100 ML IVCONT (14:41)
--- NOTE | 2022-06-08 14:41 | PM.EVENT ---
Event Note Date of Service: 06/09/22 Event Note: Seen on afternoon rounds Looks a lot more comfortable Has had no vomiting Still with diarrhea abdomen distended but soft,, no guarding or rebound CT reviewed - loculated collection on the right flank area Awaiting full report Will discuss with radiologist regarding IR drainage Looks well afternoon C diff test pending Given extra IV fluids because of elevated BUN creatinine, pre renal, from diarrhea
[2022-06-08 15:25] LABS: ABG Base Excess 3.9 mmol/L; ABG HCO3 33 mmol/L (22-26); ABG pCO2 75 mmHg (32-45); ABG pH 7.25 (7.35-7.45); ABG pO2 71 mmHg (83-108)
--- NOTE | 2022-06-08 16:15 | PM.EVENT ---
Event Note Date of Service: 06/09/22 Event Note: as per hospitalist, pt had ABG showing respiratory acidosis pt looks comfortable have conversation in room with family and staff does not appear to be in distress encouraged to continue doing incentive spirometery CPAP at night looks well otherwise
[2022-06-08 16:33] LABS: ABG Refer to POC result
[2022-06-08] MEDS: cefTRIAXone sodium 1 GM in 0.9 % Sodium Chloride 50 ML IV (17:18)
[2022-06-08] MEDS: Azithromycin 500 MG in 0.9 % Sodium Chloride 250 ML 125 MG IV (18:01)
[2022-06-08 19:37] LABS: Glucose, Whole Blood 134 mg/dL (60-115)
[2022-06-08 20:01] LABS: Glucose, Whole Blood 126 mg/dL (60-115)
[2022-06-08] MEDS: hydrOXYzine HCL 50 MG/ML VIAL IM (23:54)
[2022-06-09] VITALS (8 sets, daily range): BP systolic 106–172; BP diastolic 59–77; PULSE 78–103; RESP 16–22; TEMP 36–37.1; O2SAT 92–98
--- NOTE | 2022-06-09 03:52 | PC.NURSE ---
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 Norton in AM p: Patient reports feeling anxious i: nellieerconnect to hospitalist e: IM atarax ordered e: 0030; patient appears calm, resting with eyes closed, continue to monitor
[2022-06-09] MEDS: Heparin Sodium,Porcine 5,000 UNIT/ML VIAL 5000 UNIT SUBCUT ×2 (04:22→21:23)
[2022-06-09] MEDS: oxyCODONE HCl Immed Release 5 MG TABLET 10 MG PO ×2 (04:22→08:47)
[2022-06-09 08:09] LABS: Hematocrit 28.8 % (42.0-52.0); Mean Corpuscular HGB Conc 31.3 g/dl (31.0-36.0); Mean Corpuscular Hemoglobin 27.9 pg (27.0-33.0); Mean Corpuscular Volume 89.2 fL (80.0-98.0); Mean Platelet Volume 10.7 fL (9.4-12.4); NRBC Pct Auto 0.5 /100WBC (0.0-0.2); Platelet Count 200 X10*3/uL (160-400); Red Blood Count 3.23 X10*6/uL (4.60-5.80); Red Cell Distribution Width 14.2 % (11.0-16.0)
[2022-06-09 08:10] LABS: WBC ABN SCTR FOR CBC 1
[2022-06-09 08:12] LABS: Glucose, Whole Blood 204 mg/dL (60-115)
[2022-06-09 08:13] LABS: INTERNATIONAL NORM RATIO 1.1 (0.9-1.1); Prothrombin Time 12.8 SEC (10.0-13.1)
[2022-06-09] MEDS: Piperacillin Sodium/Tazobactam 2.25 GM in 0.9 % Sodium Chloride 50 ML IV ×2 (08:36→21:23)
[2022-06-09 08:41] LABS: Anion Gap 16 (12-20); Blood Urea Nitrogen 64 mg/dL (9-16); Calcium 7.9 mg/dL (8.4-10.2); Carbon Dioxide 28 mmol/L (22-29); Chloride 100 mmol/L (96-108); Creatinine Clr Calc Pharmacy 78.1; Estimated Glomerular Filt Rate 53; Glucose Fasting 230 mg/dL (60-99); Potassium 3.5 mmol/L (3.3-5.1); Sodium 140 mmol/L (135-145)
[2022-06-09] MEDS: carvediloL 12.5 MG TABLET PO (08:47)
[2022-06-09] MEDS: busPIRone HCl 5 MG TABLET PO (08:49)
[2022-06-09 08:50] LABS: Band Neutrophils Percent 21 % (3-5); Lymphocytes Percent Manual 7 % (20-40); Metamyelocytes Percent 1 %; Monocytes Percent Manual 9 % (2-11); Neutrophils Percent Manual 62 % (45-73)
[2022-06-09 08:51] LABS: RBC Morphology NOTED
[2022-06-09 08:52] LABS: Hypochromasia 1+ (5-14) /OIF; Ovalocytes 1+ (5-14) /OIF; Platelet Estimate NORMAL (NORMAL); Platelet Morphology Comment NORMAL
[2022-06-09 08:53] LABS: Lymphocytes Absolute Manual 0.8 X10*3/uL (1.2-4.9); Metamyelocytes Absolute 0.1 X10*3/uL; Neutrophils Absolute Manual 9.6 X10*3/uL (2.0-8.3); Polychromasia 1+ (0-2) /OIF; White Blood Count 11.6 X10*3/uL (4.8-10.8)
--- NOTE | 2022-06-09 08:53 | PM.PNGS ---
Subjective Subjective Date of Service: 06/10/22 Interval history: According to , patient did not sleep well because of diarrhea Had accidents in bed He was confused last night because he knew that his blood sugars were not right Alert today Physical Exam Vital Signs: Vital Signs: Last Vital Signs Temp 96.8 F 06/09/22 08:00 Pulse 103 H 06/09/22 08:00 Resp 18 06/09/22 08:00 BP 126/59 L 06/09/22 08:00 Pulse Ox 95 06/09/22 08:32 O2 Del Method 06/09/22 08:32 O2 Flow Rate 3 06/09/22 08:32 Oxygen Flow Rate 2.0 06/05/22 10:00 BMI result Body Mass Index 38.4 Const: Other: Sitting up on chair, conversant, not confused Resp: Other: Mild shortness of breath Cardio: Rate: regular rate GI: Other: Distended, no guarding rebound, Objective Data Active Medications Albuterol Sulfate (Albuterol Sulfate (0.042%) 1.25 Mg/3 Ml Vial.Neb) 1.25 mg INHALE RQ6H PRN PRN Reason: shortness of breath Last Admin: 06/07/22 23:46 Dose: 1.25 mg Documented By: STEPHANIE Atorvastatin Calcium (Atorvastatin Calcium 10 Mg Tablet) 10 mg PO BEDTIME [facility] Last Admin: 06/08/22 20:29 Dose: Not Given Documented By: SHAHAB Non-Admin Reason: Patient Refused Buspirone HCl (Buspirone Hcl 5 Mg Tablet) 5 mg PO DAILY [facility] Last Admin: 06/09/22 08:49 Dose: 5 mg Documented By: SUE Carvedilol (Carvedilol 12.5 Mg Tablet) 12.5 mg PO BID [facility]; Protocol Last Admin: 06/09/22 08:47 Dose: 12.5 mg Documented By: SUE Dextrose (Dextrose 50 % 25 Gm/50 Ml Syringe) 25 gm IVPUSH Q15M PRN; Protocol PRN Reason: per Hypoglycemia Standing Ord. Glucose (Glucose Gel 15 Gm Gel..Gram.) 15 gm PO Q15M PRN; Protocol PRN Reason: per Hypoglycemia Standing Ord. Heparin Sodium (Porcine) (Heparin Sodium,Porcine 5,000 Unit/Ml Vial) 5,000 unit SUBCUT Q8H [facility] Last Admin: 06/09/22 04:22 Dose: 5,000 unit Documented By: NATALIA Promethazine HCl 12.5 mg/ (Sodium Chloride) 50.5 mls @ 202 mls/hr IV Q6H PRN PRN Reason: Nausea and Vomiting Acetaminophen (Ofirmev) 1,000 mg in 100 mls @ 400 mls/hr IV Q6H PRN PRN Reason: abdominal pain Last Infusion: 06/07/22 17:16 Dose: 0 mls/hr Documented By: NYA Potassium Chloride 80 meq/Sodium Chloride 70 meq/Magnesium Sulfate 10 meq/Calcium Gluconate 9.3 meq/Multivitamins 10.5 ml/ Trace Metals 1.1 ml/ Amino Acids/Electrolytes/Dextrose 1,920 mls @ 80 mls/hr IVCONT DAILY@1800 [facility] Stop: 06/09/22 17:59 Last Infusion: 06/09/22 08:50 Dose: 0 mls/hr Documented By: SUE Azithromycin 500 mg/ Sodium (Chloride) 250 mls @ 125 mls/hr IV Q24H [facility] Last Infusion: 06/08/22 20:10 Dose: 0 mls/hr Documented By: SHAHAB Piperacillin Sod/Tazobactam (Sod 2.25 gm/ Sodium Chloride) 50 mls @ 100 mls/hr IV Q6H [facility] Last Admin: 06/09/22 08:36 Dose: 100 mls/hr Documented By: SUE Insulin Human Lispro (Insulin Lispro 100 Unit/Ml 3 Ml Vial) 0 unit SUBCUT QIDACHS [facility]; Protocol Last Admin: 06/08/22 20:29 Dose: Not Given Documented By: SHAHAB Non-Admin Reason: No Insulin Coverage Morphine Sulfate (Morphine Sulfate 4 Mg/Ml Cartridge) 4 mg IVPUSH Q3H PRN; Protocol PRN Reason: Pain, Severe (Pain Scale 7-10) Last Admin: 06/08/22 23:21 Dose: 4 mg Documented By: SHAHAB Ondansetron HCl (Ondansetron Hcl 4 Mg/2 Ml Vial) 4 mg IVPUSH Q8H PRN PRN Reason: Nausea Last Admin: 06/08/22 02:07 Dose: 4 mg Documented By: YOSSI Oxycodone HCl (Oxycodone Hcl Immed Release 5 Mg Tablet) 10 mg PO Q4H PRN PRN Reason: Pain, Moderate (Pain Scale 4-6 Last Admin: 06/09/22 08:47 Dose: 10 mg Documented By: SUE Sertraline HCl (Sertraline Hcl 50 Mg Tablet) 150 mg PO BEDTIME [facility] Last Admin: 06/08/22 20:30 Dose: Not Given Documented By: SHAHAB Non-Admin Reason: NPO Simethicone (Simethicone 80 Mg Tab.Chew) 80 mg PO QIDWMHS PRN PRN Reason: gassiness Last Admin: 06/07/22 10:45 Dose: 80 mg Documented By: NYA Sodium Chloride (0.9 % Sodium Chloride Flush 3 Ml Syringe) 3 ml IVFLUSH QSHIFT TEENA Last Admin: 06/08/22 23:56 Dose: Not Given Documented By: SHAHAB Non-Admin Reason: IV Running Trazodone HCl (Trazodone Hcl 50 Mg Tablet) 150 mg PO BEDTIME [facility] Last Admin: 06/08/22 20:30 Dose: Not Given Documented By: SHAHAB Non-Admin Reason: NPO Labs CBC & Chem 7: 06/10/22 05:53 06/10/22 06:06 Labs: Laboratory Results - last 24 hr 06/08/22 06/08/22 06/08/22 08:35 08:39 09:24 MCV MCH MCHC RDW Plt Count MPV Immature Gran % (Auto) Neut % (Auto) Lymph % (Auto) [place] % (Auto) Eos % (Auto) Baso % (Auto) Lymph # (Auto) [place] # (Auto) Eos # (Auto) Baso # (Auto) Abs Immat Gran (auto) Absolute Neuts (auto) Absolute Nucleated RBC Nucleated RBC % (auto) Neutrophils % (Manual) Band Neutrophils % Lymphocytes % (Manual) Monocytes % (Manual) Metamyelocytes % Abs Neuts (Manual) Lymphocytes # (Manual) Monocytes # (Manual) Metamyelocytes # Platelet Estimate Plt Morphology Comment RBC Morphology Polychromasia Hypochromasia Ovalocytes PT INR D-Dimer High Sensitivty 3366 O2 Saturation ABG pH at Pt Temp ABG pCO2 at Pt Temp ABG pO2 at Pt Temp ABG HCO3 ABG Base Excess (Actual) Anion Gap 17 Estim Creat Clear Calc 46.2 Estimated GFR 29 POC Glucose Random Glucose TNP Fasting Glucose 207 H D Calcium 8.1 L Phosphorus 5.7 H Magnesium 2.4 B-Natriuretic Peptide 25 Albumin 3.2 L Triglycerides 165 Ur Random Sodium C. difficile Tox B Gene 06/08/22 06/08/22 06/08/22 11:00 11:00 13:06 MCV MCH MCHC RDW Plt Count MPV Immature Gran % (Auto) Neut % (Auto) Lymph % (Auto) [place] % (Auto) Eos % (Auto) Baso % (Auto) Lymph # (Auto) [place] # (Auto) Eos # (Auto) Baso # (Auto) Abs Immat Gran (auto) Absolute Neuts (auto) Absolute Nucleated RBC Nucleated RBC % (auto) Neutrophils % (Manual) Band Neutrophils % Lymphocytes % (Manual) Monocytes % (Manual) Metamyelocytes % Abs Neuts (Manual) Lymphocytes # (Manual) Monocytes # (Manual) Metamyelocytes # Platelet Estimate Plt Morphology Comment RBC Morphology Polychromasia Hypochromasia Ovalocytes PT INR D-Dimer High Sensitivty O2 Saturation ABG pH at Pt Temp ABG pCO2 at Pt Temp ABG pO2 at Pt Temp ABG HCO3 ABG Base Excess (Actual) Anion Gap Estim Creat Clear Calc Estimated GFR POC Glucose 136 H Random Glucose Fasting Glucose Calcium Phosphorus Magnesium B-Natriuretic Peptide Albumin Triglycerides Ur Random Sodium < 20.0 C. difficile Tox B Gene NEGATIVE 06/08/22 06/08/22 06/08/22 15:18 16:35 19:44 MCV MCH MCHC RDW Plt Count MPV Immature Gran % (Auto) Neut % (Auto) Lymph % (Auto) [place] % (Auto) Eos % (Auto) Baso % (Auto) Lymph # (Auto) [place] # (Auto) Eos # (Auto) Baso # (Auto) Abs Immat Gran (auto) Absolute Neuts (auto) Absolute Nucleated RBC Nucleated RBC % (auto) Neutrophils % (Manual) Band Neutrophils % Lymphocytes % (Manual) Monocytes % (Manual) Metamyelocytes % Abs Neuts (Manual) Lymphocytes # (Manual) Monocytes # (Manual) Metamyelocytes # Platelet Estimate Plt Morphology Comment RBC Morphology Polychromasia Hypochromasia Ovalocytes PT INR D-Dimer High Sensitivty O2 Saturation 90.0 ABG pH at Pt Temp 7.25 L ABG pCO2 at Pt Temp 75 H* ABG pO2 at Pt Temp 71 L ABG HCO3 33 H ABG Base Excess (Actual) 3.9 Anion Gap Estim Creat Clear Calc Estimated GFR POC Glucose 134 H 126 H Random Glucose Fasting Glucose Calcium Phosphorus Magnesium B-Natriuretic Peptide Albumin Triglycerides Ur Random Sodium C. difficile Tox B Gene 06/09/22 06/09/22 06/09/22 07:50 07:58 07:58 MCV 89.2 MCH 27.9 MCHC 31.3 RDW 14.2 Plt Count 200 MPV 10.7 Immature Gran % (Auto) Cancelled Neut % (Auto) Cancelled Lymph % (Auto) Cancelled [place] % (Auto) Cancelled Eos % (Auto) Cancelled Baso % (Auto) Cancelled Lymph # (Auto) Cancelled [place] # (Auto) Cancelled Eos # (Auto) Cancelled Baso # (Auto) Cancelled Abs Immat Gran (auto) Cancelled Absolute Neuts (auto) Cancelled Absolute Nucleated RBC 0.060 H Nucleated RBC % (auto) 0.5 H Neutrophils % (Manual) 62 Band Neutrophils % 21 H Lymphocytes % (Manual) 7 L Monocytes % (Manual) 9 Metamyelocytes % 1 Abs Neuts (Manual) 9.6 H Lymphocytes # (Manual) 0.8 L Monocytes # (Manual) 1.0 Metamyelocytes # 0.1 Platelet Estimate NORMAL Plt Morphology Comment NORMAL RBC Morphology NOTED Polychromasia 1+ (0-2) Hypochromasia 1+ (5-14) Ovalocytes 1+ (5-14) PT 12.8 INR 1.1 D-Dimer High Sensitivty O2 Saturation ABG pH at Pt Temp ABG pCO2 at Pt Temp ABG pO2 at Pt Temp ABG HCO3 ABG Base Excess (Actual) Anion Gap 16 Estim Creat Clear Calc 78.1 Estimated GFR 53 POC Glucose Random Glucose Fasting Glucose 230 H Calcium 7.9 L Phosphorus Magnesium B-Natriuretic Peptide Albumin Triglycerides Ur Random Sodium C. difficile Tox B Gene 06/09/22 08:05 MCV MCH MCHC RDW Plt Count MPV Immature Gran % (Auto) Neut % (Auto) Lymph % (Auto) [place] % (Auto) Eos % (Auto) Baso % (Auto) Lymph # (Auto) [place] # (Auto) Eos # (Auto) Baso # (Auto) Abs Immat Gran (auto) Absolute Neuts (auto) Absolute Nucleated RBC Nucleated RBC % (auto) Neutrophils % (Manual) Band Neutrophils % Lymphocytes % (Manual) Monocytes % (Manual) Metamyelocytes % Abs Neuts (Manual) Lymphocytes # (Manual) Monocytes # (Manual) Metamyelocytes # Platelet Estimate Plt Morphology Comment RBC Morphology Polychromasia Hypochromasia Ovalocytes PT INR D-Dimer High Sensitivty O2 Saturation ABG pH at Pt Temp ABG pCO2 at Pt Temp ABG pO2 at Pt Temp ABG HCO3 ABG Base Excess (Actual) Anion Gap Estim Creat Clear Calc Estimated GFR POC Glucose 204 H Random Glucose Fasting Glucose Calcium Phosphorus Magnesium B-Natriuretic Peptide Albumin Triglycerides Ur Random Sodium C. difficile Tox B Gene Procedures Date of Service Date of Service: 06/09/22 Progress Note: A&P Assessment and plan (1) S/P right colectomy: Status: Acute Assessment and Plan: Continues to have diarrhea although he says this seems to be less CT scan shows fluid collection on the right side,also ileus type pattern CT drainage ordered - explained this to PICC line for TPN BUN creatinine better NG tube for distension Received additional IV fluids last night Time Spent With Patient Time: Total time spent is greater than 50% in coordination of care (as documented) at patient's floor/unit and/or counseling patient: Quality Stroke Does the patient have a stroke diagnosis?: No VTE Prior VTE?: No VTE Risk Level:: Medical - moderate - high VTE Device Contraindication: N/A - Device Ordered VTE Drug Contraindication: N/A - Med Ordered
[2022-06-09 09:04] LABS: ABG Base Excess 4.5 mmol/L; ABG HCO3 31 mmol/L (22-26); ABG pCO2 58 mmHg (32-45); ABG pH 7.33 (7.35-7.45); ABG pO2 73 mmHg (83-108)
[2022-06-09 09:07] LABS: ABG Refer to POC result
[2022-06-09] MEDS: Morphine Sulfate 4 MG/ML CARTRIDGE IVPUSH (09:12)
[2022-06-09 10:28] LABS: Magnesium 2.5 mg/dL (1.6-2.6); Phosphorus 3.1 mg/dL (2.7-4.5)
--- NOTE | 2022-06-09 10:50 | PM.PNNEP ---
Subjective Subjective Date of Service: 06/09/22 Interval history: Events noted. All recent data reviewed Physical Exam Vital Signs: Vital Signs: Last Vital Signs Temp 96.8 F 06/09/22 08:00 Pulse 103 H 06/09/22 08:00 Resp 18 06/09/22 08:00 BP 126/59 L 06/09/22 08:00 Pulse Ox 95 06/09/22 08:32 O2 Del Method 06/09/22 08:32 O2 Flow Rate 3 06/09/22 08:32 Oxygen Flow Rate 2.0 06/05/22 10:00 BMI result Body Mass Index 38.4 Const: General: no acute distress Eyes: EOM: EOMs intact bilaterally Neck: Neck: Yes supple Resp: Auscultation: diminished lung sounds Cardio: Rate: regular rate GI: Palpation (GI): Soft to palpation Neuro: General: moves all extremities Objective Data Labs CBC & Chem 7: 06/09/22 07:58 06/09/22 07:58 Labs: Laboratory Results - last 24 hr 06/08/22 06/08/22 06/08/22 11:00 11:00 13:06 WBC RBC Hgb Hct MCV MCH MCHC RDW Plt Count MPV Immature Gran % (Auto) Neut % (Auto) Lymph % (Auto) [place] % (Auto) Eos % (Auto) Baso % (Auto) Lymph # (Auto) [place] # (Auto) Eos # (Auto) Baso # (Auto) Abs Immat Gran (auto) Absolute Neuts (auto) Absolute Nucleated RBC Nucleated RBC % (auto) Neutrophils % (Manual) Band Neutrophils % Lymphocytes % (Manual) Monocytes % (Manual) Metamyelocytes % Abs Neuts (Manual) Lymphocytes # (Manual) Monocytes # (Manual) Metamyelocytes # Platelet Estimate Plt Morphology Comment RBC Morphology Polychromasia Hypochromasia Ovalocytes PT INR O2 Saturation ABG pH at Pt Temp ABG pCO2 at Pt Temp ABG pO2 at Pt Temp ABG HCO3 ABG Base Excess (Actual) Sodium Potassium Chloride Carbon Dioxide Anion Gap BUN Creatinine Estim Creat Clear Calc Estimated GFR POC Glucose 136 H Fasting Glucose Calcium Phosphorus Magnesium Albumin Ur Random Sodium < 20.0 C. difficile Tox B Gene NEGATIVE 06/08/22 06/08/22 06/08/22 15:18 16:35 19:44 WBC RBC Hgb Hct MCV MCH MCHC RDW Plt Count MPV Immature Gran % (Auto) Neut % (Auto) Lymph % (Auto) [place] % (Auto) Eos % (Auto) Baso % (Auto) Lymph # (Auto) [place] # (Auto) Eos # (Auto) Baso # (Auto) Abs Immat Gran (auto) Absolute Neuts (auto) Absolute Nucleated RBC Nucleated RBC % (auto) Neutrophils % (Manual) Band Neutrophils % Lymphocytes % (Manual) Monocytes % (Manual) Metamyelocytes % Abs Neuts (Manual) Lymphocytes # (Manual) Monocytes # (Manual) Metamyelocytes # Platelet Estimate Plt Morphology Comment RBC Morphology Polychromasia Hypochromasia Ovalocytes PT INR O2 Saturation 90.0 ABG pH at Pt Temp 7.25 L ABG pCO2 at Pt Temp 75 H* ABG pO2 at Pt Temp 71 L ABG HCO3 33 H ABG Base Excess (Actual) 3.9 Sodium Potassium Chloride Carbon Dioxide Anion Gap BUN Creatinine Estim Creat Clear Calc Estimated GFR POC Glucose 134 H 126 H Fasting Glucose Calcium Phosphorus Magnesium Albumin Ur Random Sodium C. difficile Tox B Gene 06/09/22 06/09/22 06/09/22 07:50 07:58 07:58 WBC 11.6 H RBC 3.23 L Hgb 9.0 L Hct 28.8 L MCV 89.2 MCH 27.9 MCHC 31.3 RDW 14.2 Plt Count 200 MPV 10.7 Immature Gran % (Auto) Cancelled Neut % (Auto) Cancelled Lymph % (Auto) Cancelled [place] % (Auto) Cancelled Eos % (Auto) Cancelled Baso % (Auto) Cancelled Lymph # (Auto) Cancelled [place] # (Auto) Cancelled Eos # (Auto) Cancelled Baso # (Auto) Cancelled Abs Immat Gran (auto) Cancelled Absolute Neuts (auto) Cancelled Absolute Nucleated RBC 0.060 H Nucleated RBC % (auto) 0.5 H Neutrophils % (Manual) 62 Band Neutrophils % 21 H Lymphocytes % (Manual) 7 L Monocytes % (Manual) 9 Metamyelocytes % 1 Abs Neuts (Manual) 9.6 H Lymphocytes # (Manual) 0.8 L Monocytes # (Manual) 1.0 Metamyelocytes # 0.1 Platelet Estimate NORMAL Plt Morphology Comment NORMAL RBC Morphology NOTED Polychromasia 1+ (0-2) Hypochromasia 1+ (5-14) Ovalocytes 1+ (5-14) PT 12.8 INR 1.1 O2 Saturation ABG pH at Pt Temp ABG pCO2 at Pt Temp ABG pO2 at Pt Temp ABG HCO3 ABG Base Excess (Actual) Sodium 140 Potassium 3.5 Chloride 100 Carbon Dioxide 28 Anion Gap 16 BUN 64 H Creatinine 1.38 Estim Creat Clear Calc 78.1 Estimated GFR 53 POC Glucose Fasting Glucose 230 H Calcium 7.9 L Phosphorus 3.1 Magnesium 2.5 Albumin 3.0 L Ur Random Sodium C. difficile Tox B Gene 06/09/22 06/09/22 08:05 08:59 WBC RBC Hgb Hct MCV MCH MCHC RDW Plt Count MPV Immature Gran % (Auto) Neut % (Auto) Lymph % (Auto) [place] % (Auto) Eos % (Auto) Baso % (Auto) Lymph # (Auto) [place] # (Auto) Eos # (Auto) Baso # (Auto) Abs Immat Gran (auto) Absolute Neuts (auto) Absolute Nucleated RBC Nucleated RBC % (auto) Neutrophils % (Manual) Band Neutrophils % Lymphocytes % (Manual) Monocytes % (Manual) Metamyelocytes % Abs Neuts (Manual) Lymphocytes # (Manual) Monocytes # (Manual) Metamyelocytes # Platelet Estimate Plt Morphology Comment RBC Morphology Polychromasia Hypochromasia Ovalocytes PT INR O2 Saturation 93.0 ABG pH at Pt Temp 7.33 L ABG pCO2 at Pt Temp 58 H ABG pO2 at Pt Temp 73 L ABG HCO3 31 H ABG Base Excess (Actual) 4.5 Sodium Potassium Chloride Carbon Dioxide Anion Gap BUN Creatinine Estim Creat Clear Calc Estimated GFR POC Glucose 204 H Fasting Glucose Calcium Phosphorus Magnesium Albumin Ur Random Sodium C. difficile Tox B Gene Procedures Date of Service Date of Service: 06/09/22 Assessment & Plan Assessment and plan (1) JENNIFER (acute kidney injury): Status: Acute Assessment and Plan: Acute Kidney Injury due to tubular injury No reason to suspect GN/AIN Renal function better Can have PPN/TPN as per Surgery team C/W rest of current supportive care Time Spent With Patient Time: Total time spent is greater than 50% in coordination of care (as documented) at patient's floor/unit and/or counseling patient: Progress Note: Quality Stroke Does the patient have a stroke diagnosis?: No
--- NOTE | 2022-06-09 11:49 | MHC.CM.PN ---
PATIENT STILL ACUTE. PLAN FOR DRAIN TODAY NO DC PLANNED
--- NOTE | 2022-06-09 12:21 | MHC.CLN ---
F/U CONTINUES NPO WITH PPN. LABS REVIEWED. COMMUNICATED WITH PHARMACY AND PROVIDER. RECOMMEND ADVANCE PPN TO DAY 3 RECOMMENDATION. DAY 3 MAX GOAL RATE: PPN D10AA4.25 AT 100 ML PER HOUR. ADD LIPIDS 20 ML PER HOUR OF 20% LIPIDS. PROVIDES 2184 KCALS (25.1 KCALS/KG CALCULATED METABOLIC WEIGHT), 102 G PROTEIN (1.17 G/KG CALCULATED METABOLIC WEIGHT). REPLETE LYTES NEEDS. FOLLOW FOR DIET ADVANCEMENT/DIET TOLERANCE, LABS, PPN.
--- NOTE | 2022-06-09 13:43 | P.PICC_ITS ---
PICC Line Insertion NPICC Diagnosis: Colectomy Indication: Need for TPN Pertinent Labs: reviewed Technique: Following informed consent including risks, benefits and alternatives and using sterile technique including cap and mask, sterile gown, glove and drape, the Right arm was prepped and draped in the usual sterile fashion of full barrier technique with CHG. Following completion of Clifford Protocol the skin and soft tissues were anesthetized with 1% Lidocaine plain. Using ultrasound guidance, right basilic vein access was obtained in a single attempt by this RN. Over an 0.018 wire through peel-away sheath, a 5 [place] Double lumen PASV PwerPICC Solo line was positioned. Catheter length is 49 cm internal length, 2 cm external length, for a total trimmed length of 51 cm. The procedure was performed in S272. Tip verification was performed by Christie Hutchinson with Phani 3CG. Tip located in SVC. Ultrasound was used to document vein patency and for needle entry. A formal ultrasound picture and cardiac rhythm strip was recorded. [facility] [employer] has released the line for use and it is currently dressed with a StatLock, Tegaderm, and CHG disc. Verification has been performed for blood return and line patency. Arm Circumference: 38 cm Equipment: 5 [place] double lumen PASV PowerPICC Solo Catheter Type: 5 [place] double lumen PASV PowerPICC Solo Lot #: [id number]
[2022-06-09 13:53] LABS: Glucose, Whole Blood 163 mg/dL (60-115)
--- NOTE | 2022-06-09 15:55 | HO.RADPN ---
RADIOLOGY Narrative Narrative: 10.2 fr RLQ drain placed. 1L fecal appearing fluid removed. Specimen sent for culture. Findings were disussed with Dr Norton.
--- NOTE | 2022-06-09 16:17 | PM.EVENT ---
Event Note Date of Service: 06/10/22 Event Note: underwent CT drainge of fluid collection dw Dr. Liao - ?pus vs enteric contents aspirated drain in place pt denies abdominal pain at this time look comfortable, conversant abd soft, no tenderness, no guarding or rebound will monitor output, may need repeat CT Zosyn start TPN tomorrow continue PPN bo family updated in room
[2022-06-09 16:36] LABS: Glucose, Whole Blood 149 mg/dL (60-115)
--- NOTE | 2022-06-09 17:21 | P.PNIM_ITS ---
Subjective Subjective Date of Service: 06/09/22 Interval History: Complaining of not feeling good due to abdominal distension and discomfort, admitted that he does not know what is going on but was able to answer questions appropriately new where he was, at bedside concern about his clinical condition, patient denies nausea vomiting noted to have loose stools, denies fever chills, denies shortness of breath no chest pain, no palpitations, no headache, no dizziness. Review of Systems Review of Systems: Yes all other systems are reviewed and are negative Physical Exam Vital Signs: Vital Signs: Last Vital Signs Temp 97.0 F 06/09/22 16:33 Pulse 96 06/09/22 16:48 Resp 16 06/09/22 16:48 BP 106/62 06/09/22 16:48 Pulse Ox 94 06/09/22 16:48 O2 Del Method 06/09/22 16:48 O2 Flow Rate 3 06/09/22 16:48 Oxygen Flow Rate 2.0 06/05/22 10:00 BMI result Body Mass Index 38.4 Const: Other: General awake alert,in no acute distress. Neck supple no JVD. CVS regular rate rhythm, Respiratory lungs clear to auscultation, no respiratory distress, no wheeze, no rhonchi. Gastrointestinal abdomen soft, distended, mild discomfort with palpation, bowel sounds audible, no guarding , no rigidity. Extremities no edema. Neuro nonfocal patient moving all 4 extremity speech clear. Skin no rash Psych appropriate affect Objective Data Active Medications Albuterol Sulfate (Albuterol Sulfate (0.042%) 1.25 Mg/3 Ml Vial.Neb) 1.25 mg INHALE RQ6H PRN PRN Reason: shortness of breath Last Admin: 06/07/22 23:46 Dose: 1.25 mg Documented By: STEPHANIE Atorvastatin Calcium (Atorvastatin Calcium 10 Mg Tablet) 10 mg PO BEDTIME [facility] Last Admin: 06/08/22 20:29 Dose: Not Given Documented By: SHAHAB Non-Admin Reason: Patient Refused Buspirone HCl (Buspirone Hcl 5 Mg Tablet) 5 mg PO DAILY [facility] Last Admin: 06/09/22 08:49 Dose: 5 mg Documented By: SUE Carvedilol (Carvedilol 12.5 Mg Tablet) 12.5 mg PO BID [facility]; Protocol Last Admin: 06/09/22 08:47 Dose: 12.5 mg Documented By: SUE Dextrose (Dextrose 50 % 25 Gm/50 Ml Syringe) 25 gm IVPUSH Q15M PRN; Protocol PRN Reason: per Hypoglycemia Standing Ord. Glucose (Glucose Gel 15 Gm Gel..Gram.) 15 gm PO Q15M PRN; Protocol PRN Reason: per Hypoglycemia Standing Ord. Heparin Sodium (Porcine) (Heparin Sodium,Porcine 5,000 Unit/Ml Vial) 5,000 unit SUBCUT Q8H [facility] Last Admin: 06/09/22 04:22 Dose: 5,000 unit Documented By: NATALIA Promethazine HCl 12.5 mg/ (Sodium Chloride) 50.5 mls @ 202 mls/hr IV Q6H PRN PRN Reason: Nausea and Vomiting Acetaminophen (Ofirmev) 1,000 mg in 100 mls @ 400 mls/hr IV Q6H PRN PRN Reason: abdominal pain Last Infusion: 06/07/22 17:16 Dose: 0 mls/hr Documented By: NYA Potassium Chloride 80 meq/Sodium Chloride 70 meq/Magnesium Sulfate 10 meq/Calcium Gluconate 9.3 meq/Multivitamins 10.5 ml/ Trace Metals 1.1 ml/ Amino Acids/Electrolytes/Dextrose 1,920 mls @ 80 mls/hr IVCONT DAILY@1800 [facility] Stop: 06/09/22 17:59 Last Infusion: 06/09/22 08:50 Dose: 0 mls/hr Documented By: SUE Azithromycin 500 mg/ Sodium (Chloride) 250 mls @ 125 mls/hr IV Q24H [facility] Last Infusion: 06/08/22 20:10 Dose: 0 mls/hr Documented By: SHAHAB Piperacillin Sod/Tazobactam (Sod 2.25 gm/ Sodium Chloride) 50 mls @ 100 mls/hr IV Q6H [facility] Last Infusion: 06/09/22 11:37 Dose: 0 mls/hr Documented By: SUE Potassium Chloride 60 meq/Sodium Chloride 70 meq/Magnesium Sulfate 10 meq/P otassium Phosphate 15 mmol/Calcium Gluconate 9.3 meq/Multivitamins 10 ml/ Trace Metals 1 ml/ Amino Acids/Electrolytes/Dextrose 2,000 mls @ 100 mls/hr IVCONT DAILY@1800 [facility] Stop: 06/10/22 13:59 Fat Emulsion Intravenous (Intralipid) 240 mls @ 20 mls/hr IVCONT BID@0600,1800 [facility] Stop: 06/10/22 17:59 Potassium Chloride 30 meq/Sodium Chloride 35 meq/Magnesium Sulfate 5 meq/Potassium Phosphate 7.5 mmol/Calcium Gluconate 4.65 meq/Amino Acids/Electrolytes/Dextrose 400 mls @ 100 mls/hr IVCONT DAILY@1800 [facility] Stop: 06/10/22 17:59 Insulin Human Lispro (Insulin Lispro 100 Unit/Ml 3 Ml Vial) 0 unit SUBCUT QIDACHS [facility]; Protocol Last Admin: 06/09/22 11:56 Dose: Not Given Documented By: SUE Non-Admin Reason: NPO Morphine Sulfate (Morphine Sulfate 4 Mg/Ml Cartridge) 4 mg IVPUSH Q3H PRN; Protocol PRN Reason: Pain, Severe (Pain Scale 7-10) Last Admin: 06/09/22 09:12 Dose: 4 mg Documented By: SUE Ondansetron HCl (Ondansetron Hcl 4 Mg/2 Ml Vial) 4 mg IVPUSH Q8H PRN PRN Reason: Nausea Last Admin: 06/08/22 02:07 Dose: 4 mg Documented By: ODUSHA Oxycodone HCl (Oxycodone Hcl Immed Release 5 Mg Tablet) 10 mg PO Q4H PRN PRN Reason: Pain, Moderate (Pain Scale 4-6 Last Admin: 06/09/22 08:47 Dose: 10 mg Documented By: SUE Sertraline HCl (Sertraline Hcl 50 Mg Tablet) 150 mg PO BEDTIME [facility] Last Admin: 06/08/22 20:30 Dose: Not Given Documented By: SHAHAB Non-Admin Reason: NPO Simethicone (Simethicone 80 Mg Tab.Chew) 80 mg PO QIDWMHS PRN PRN Reason: gassiness Last Admin: 06/07/22 10:45 Dose: 80 mg Documented By: NYA Sodium Chloride (0.9 % Sodium Chloride Flush 3 Ml Syringe) [facility] Last Admin: 06/09/22 08:56 Dose: Not Given Documented By: SUE Non-Admin Reason: IV Running Sodium Chloride (0.9 % Sodium Chloride Flush 10 Ml Syringe) 5 ml IVFLUSH TID [facility] Trazodone HCl (Trazodone Hcl 50 Mg Tablet) 150 mg PO BEDTIME [facility] Last Admin: 06/08/22 20:30 Dose: Not Given Documented By: SHAHAB Non-Admin Reason: NPO Labs CBC & Chem 7: 06/09/22 07:58 06/09/22 07:58 Labs: Laboratory Results - last 24 hr 06/08/22 06/08/22 06/09/22 16:35 19:44 07:50 MCV MCH MCHC RDW Plt Count MPV Immature Gran % (Auto) Neut % (Auto) Lymph % (Auto) [place] % (Auto) Eos % (Auto) Baso % (Auto) Lymph # (Auto) [place] # (Auto) Eos # (Auto) Baso # (Auto) Abs Immat Gran (auto) Absolute Neuts (auto) Absolute Nucleated RBC Nucleated RBC % (auto) Neutrophils % (Manual) Band Neutrophils % Lymphocytes % (Manual) Monocytes % (Manual) Metamyelocytes % Abs Neuts (Manual) Lymphocytes # (Manual) Monocytes # (Manual) Metamyelocytes # Platelet Estimate Plt Morphology Comment RBC Morphology Polychromasia Hypochromasia Ovalocytes PT 12.8 INR 1.1 O2 Saturation ABG pH at Pt Temp ABG pCO2 at Pt Temp ABG pO2 at Pt Temp ABG HCO3 ABG Base Excess (Actual) Anion Gap Estim Creat Clear Calc Estimated GFR POC Glucose 134 H 126 H Fasting Glucose Calcium Phosphorus Magnesium Albumin 06/09/22 06/09/22 06/09/22 07:58 07:58 08:05 MCV 89.2 MCH 27.9 MCHC 31.3 RDW 14.2 Plt Count 200 MPV 10.7 Immature Gran % (Auto) Cancelled Neut % (Auto) Cancelled Lymph % (Auto) Cancelled [place] % (Auto) Cancelled Eos % (Auto) Cancelled Baso % (Auto) Cancelled Lymph # (Auto) Cancelled [place] # (Auto) Cancelled Eos # (Auto) Cancelled Baso # (Auto) Cancelled Abs Immat Gran (auto) Cancelled Absolute Neuts (auto) Cancelled Absolute Nucleated RBC 0.060 H Nucleated RBC % (auto) 0.5 H Neutrophils % (Manual) 62 Band Neutrophils % 21 H Lymphocytes % (Manual) 7 L Monocytes % (Manual) 9 Metamyelocytes % 1 Abs Neuts (Manual) 9.6 H Lymphocytes # (Manual) 0.8 L Monocytes # (Manual) 1.0 Metamyelocytes # 0.1 Platelet Estimate NORMAL Plt Morphology Comment NORMAL RBC Morphology NOTED Polychromasia 1+ (0-2) Hypochromasia 1+ (5-14) Ovalocytes 1+ (5-14) PT INR O2 Saturation ABG pH at Pt Temp ABG pCO2 at Pt Temp ABG pO2 at Pt Temp ABG HCO3 ABG Base Excess (Actual) Anion Gap 16 Estim Creat Clear Calc 78.1 Estimated GFR 53 POC Glucose 204 H Fasting Glucose 230 H Calcium 7.9 L Phosphorus 3.1 Magnesium 2.5 Albumin 3.0 L 06/09/22 06/09/22 06/09/22 08:59 13:49 16:17 MCV MCH MCHC RDW Plt Count MPV Immature Gran % (Auto) Neut % (Auto) Lymph % (Auto) [place] % (Auto) Eos % (Auto) Baso % (Auto) Lymph # (Auto) [place] # (Auto) Eos # (Auto) Baso # (Auto) Abs Immat Gran (auto) Absolute Neuts (auto) Absolute Nucleated RBC Nucleated RBC % (auto) Neutrophils % (Manual) Band Neutrophils % Lymphocytes % (Manual) Monocytes % (Manual) Metamyelocytes % Abs Neuts (Manual) Lymphocytes # (Manual) Monocytes # (Manual) Metamyelocytes # Platelet Estimate Plt Morphology Comment RBC Morphology Polychromasia Hypochromasia Ovalocytes PT INR O2 Saturation 93.0 ABG pH at Pt Temp 7.33 L ABG pCO2 at Pt Temp 58 H ABG pO2 at Pt Temp 73 L ABG HCO3 31 H ABG Base Excess (Actual) 4.5 Anion Gap Estim Creat Clear Calc Estimated GFR POC Glucose 163 H 149 H Fasting Glucose Calcium Phosphorus Magnesium Albumin Assessment and Plan (1) JENNIFER (acute kidney injury): Status: Acute Plan 56 yo M with a PMH of HTN, DM, KYM on CPAP, morbid obesity, migranes, depression who is admitted under the general surgical services for resection of appendiceal adenoCa. Medical consulted for management of DM and HTN Resp acidosis, Hx of KYM PCO2 improved from 75-58 this morning pH 7.3 Patient denies shortness of breath finger oximetry 93% on 3 L of oxygen has not been using his cpap as often while hospitalized Monitor closely for decompensation Encourage incentive spirometry Acute respiratory failure with hypoxia likely due to pneumonia and atelectasis no effusion noted, no CHF Trop negative EKG ST with PVC Echo ef 55-60% Continue IV antibiotic will change to IV Zosyn and continue IV azithromycin supplemental O2 as needed Encourage IS Hypokalemia repeated in resolved JENNIFER. 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 Norton CT abdomen showed multiple areas of fluid col lection, noted to have WBC BC of 11.6 , afebrile patient underwent drainage of right-sided fluid collection oncology evaluation once Ileus, surgical issues resolved. thrombocytopenia resolved DM Patient is NPO continue insulin sliding scale receiving PPN PICC line placed and TPN will be started from tomorrow HTN BP soft,Continue Coreg Hydrochlorothiazide, losartan on hold HLD continue statin KYM Patient did not use CPAP last night repeat ABG showed improvement in pCO2 Mood continue zoloft, buspar and trazodone smudge cells noted on CBC no lymphocytosis, or leukocytosis recommend outpatient follow up Obesity BMI 38.5 Discussed importance of weight management as this may be contributing to worsening of other comorbidities dvt ppx - heparin Patient need continued inpatient hospitalization since NPO requiring IV BP PPN has significant ileus Quality Stroke Does the patient have a stroke diagnosis?: No VTE Prior VTE?: No VTE Risk Level:: Medical - moderate - high VTE Device Contraindication: N/A - Device Ordered VTE Drug Contraindication: N/A - Med Ordered
[2022-06-09 17:38] LABS: Glucose, Whole Blood 134 mg/dL (60-115)
[2022-06-09] MEDS: Azithromycin 500 MG in 0.9 % Sodium Chloride 250 ML 125 MG IV (18:00)
[2022-06-09] MEDS: Fat Emulsions 20% 250 ML 20 ML IVCONT (18:01)
[2022-06-09 20:45] LABS: Glucose, Whole Blood 173 mg/dL (60-115)
[2022-06-09] MEDS: Insulin Lispro 100 UNIT/ML 3 ML VIAL SUBCUT (21:23)
[2022-06-09] MEDS: ondansetron HCL 4 MG/2 ML VIAL IVPUSH (21:24)
[2022-06-10 00:42] VITALS: BP 123/72; PULSE 89; RESP 17; TEMP 36.7; O2SAT 95
[2022-06-10] MEDS: Morphine Sulfate 4 MG/ML CARTRIDGE IVPUSH (01:54)
[2022-06-10] MEDS: Piperacillin Sodium/Tazobactam 2.25 GM in 0.9 % Sodium Chloride 50 ML IV (02:29)
[2022-06-10 04:00] VITALS: BP 120/67; PULSE 100; RESP 17; TEMP 36.6; O2SAT 93
[2022-06-10] MEDS: Heparin Sodium,Porcine 5,000 UNIT/ML VIAL 5000 UNIT SUBCUT ×3 (05:56→21:28)
[2022-06-10] MEDS: Fat Emulsions 20% 250 ML 20 ML IVCONT (05:59)
[2022-06-10 06:51] LABS: Hematocrit 28.1 % (42.0-52.0); Hemoglobin 8.8 g/dl (14.0-18.0); Mean Corpuscular HGB Conc 31.3 g/dl (31.0-36.0); Mean Corpuscular Hemoglobin 28.2 pg (27.0-33.0); Mean Corpuscular Volume 90.1 fL (80.0-98.0); NRBC Pct Auto 0.8 /100WBC (0.0-0.2); Platelet Count 190 X10*3/uL (160-400); Red Blood Count 3.12 X10*6/uL (4.60-5.80); Red Cell Distribution Width 14.6 % (11.0-16.0); White Blood Count 11.4 X10*3/uL (4.8-10.8)
[2022-06-10 07:12] LABS: Anion Gap 16 (12-20); Blood Urea Nitrogen 47 mg/dL (9-16); Calcium 7.7 mg/dL (8.4-10.2); Carbon Dioxide 26 mmol/L (22-29); Chloride 105 mmol/L (96-108); Creatinine Clr Calc Pharmacy 98.9; Estimated Glomerular Filt Rate > 60; Glucose Random 228 mg/dL (60-115); Potassium 4.1 mmol/L (3.3-5.1); Sodium 143 mmol/L (135-145)
[2022-06-10 07:44] VITALS: BP 120/70; PULSE 101; RESP 12; TEMP 37.9; O2SAT 92
[2022-06-10 07:55] LABS: Albumin Level 2.7 g/dL (3.5-5.0); Magnesium 2.4 mg/dL (1.6-2.6)
[2022-06-10 07:58] LABS: Glucose, Whole Blood 210 mg/dL (60-115)
--- NOTE | 2022-06-10 08:13 | PM.PNGS ---
Subjective Subjective Date of Service: 06/10/22 <Bertha Fernandez PA-C - Last Filed: 06/10/22 08:28> 06/11/22 <Lit Norton MD - Last Filed: 06/11/22 11:53> Interval history: Feeling much better following the CT drainage. Not passing flatus and continues to feel bloated. Wants NGT out. Has not been OOB much. <Bertha Fernandez PA-C - Last Filed: 06/10/22 08:28> Physical Exam Vital Signs: Vital Signs: Last Vital Signs Temp 100.3 F 06/10/22 07:44 Pulse 101 H 06/10/22 07:44 Resp 12 06/10/22 07:44 BP 120/70 06/10/22 07:44 Pulse Ox 92 06/10/22 07:44 O2 Del Method 06/10/22 07:44 O2 Flow Rate 2 06/10/22 07:44 Oxygen Flow Rate 2.0 06/05/22 10:00 BMI result Body Mass Index 38.4 <Bertha Fernandez PA-C - Last Filed: 06/10/22 08:28> Const: General: no acute distress and alert <Bertha Fernandez PA-C - Last Filed: 06/10/22 08:28> Orientation/consciousness: patient oriented x3 <YESENIA Wilson Last Filed: 06/10/22 08:28> Resp: Effort & Inspection: normal respiratory effort <Bertha Fernandez PA-C - Last Filed: 06/10/22 08:28> Cardio: Rate: tachycardic <Bertha Fernandez PA-C - Last Filed: 06/10/22 08:28> GI: Other: pigtail drain in place with ?enteric purulent drainage <YESENIA Wilson Last Filed: 06/10/22 08:28> Inspection: Yes distended and Yes incision (clean) <YESENIA Wilson Last Filed: 06/10/22 08:28> Palpation (GI): Soft to palpation, Tenderness to palpation present (GI) (right sided, drain site), no guarding and not rigid <Bertha Fernandez PA-C - Last Filed: 06/10/22 08:28> Percussion: Yes tympanic to percussion <YESENIA Wilson Last Filed: 06/10/22 08:28> Skin: Other: diaphoretic <YESENIA Wilson Last Filed: 06/10/22 08:28> General skin exam: no rashes or lesions noted <Bertha Fernandez PA-C - Last Filed: 06/10/22 08:28> Neuro: General: patient oriented x3 <YESENIA Wilson Last Filed: 06/10/22 08:28> Extrem: General: Yes no clubbing, cyanosis or edema <Bertha Fernandez PA-C - Last Filed: 06/10/22 08:28> Objective Data Active Medications Albuterol Sulfate (Albuterol Sulfate (0.042%) 1.25 Mg/3 Ml Vial.Neb) 1.25 mg INHALE RQ6H PRN PRN Reason: shortness of breath Last Admin: 06/07/22 23:46 Dose: 1.25 mg Documented By: STEPHANIE Atorvastatin Calcium (Atorvastatin Calcium 10 Mg Tablet) 10 mg PO BEDTIME [facility] Last Admin: 06/09/22 21:45 Dose: Not Given Documented By: HANS Non-Admin Reason: Patient Refused Buspirone HCl (Buspirone Hcl 5 Mg Tablet) 5 mg PO DAILY [facility] Last Admin: 06/09/22 08:49 Dose: 5 mg Documented By: SUE Carvedilol (Carvedilol 12.5 Mg Tablet) 12.5 mg PO BID [facility]; Protocol Last Admin: 06/09/22 21:45 Dose: Not Given Documented By: HANS Non-Admin Reason: Patient Refused Dextrose (Dextrose 50 % 25 Gm/50 Ml Syringe) 25 gm IVPUSH Q15M PRN; Protocol PRN Reason: per Hypoglycemia Standing Ord. Glucose (Glucose Gel 15 Gm Gel..Gram.) 15 gm PO Q15M PRN; Protocol PRN Reason: per Hypoglycemia Standing Ord. Heparin Sodium (Porcine) (Heparin Sodium,Porcine 5,000 Unit/Ml Vial) 5,000 unit SUBCUT Q8H [facility] Last Admin: 06/10/22 05:56 Dose: 5,000 unit Documented By: TIN Promethazine HCl 12.5 mg/ (Sodium Chloride) 50.5 mls @ 202 mls/hr IV Q6H PRN PRN Reason: Nausea and Vomiting Acetaminophen (Ofirmev) 1,000 mg in 100 mls @ 400 mls/hr IV Q6H PRN PRN Reason: abdominal pain Last Infusion: 06/07/22 17:16 Dose: 0 mls/hr Documented By: NYA Azithromycin 500 mg/ Sodium (Chloride) 250 mls @ 125 mls/hr IV Q24H [facility] Last Infusion: 06/09/22 20:33 Dose: 0 mls/hr Documented By: TIN Potassium Chloride 60 meq/Sodium Chloride 70 meq/Magnesium Sulfate 10 meq/Potassium Phosphate 15 mmol/Calcium Gluconate 9.3 meq/Multivitamins 10 ml/ Trace Metals 1 ml/ Amino Acids/Electrolytes/Dextrose 2,000 mls @ 100 mls/hr IVCONT DAILY@1800 [facility] Stop: 06/10/22 13:59 Last Admin: 06/09/22 18:01 Dose: 100 mls/hr Documented By: SUE Fat Emulsion Intravenous (Intralipid) 240 mls @ 20 mls/hr IVCONT BID@0600,1800 [facility] Stop: 06/10/22 17:59 Last Admin: 06/10/22 05:59 Dose: 20 mls/hr Documented By: TIN Potassium Chloride 30 meq/Sodium Chloride 35 meq/Magnesium Sulfate 5 meq/Potassium Phosphate 7.5 mmol/Calcium Gluconate 4.65 meq/Amino Acids/Electrolytes/Dextrose 400 mls @ 100 mls/hr IVCONT DAILY@1800 [facility] Stop: 06/10/22 17:59 Piperacillin Sod/Tazobactam (Sod 2.25 gm/ Sodium Chloride) 50 mls @ 100 mls/hr IV Q6H [facility] Insulin Human Lispro (Insulin Lispro 100 Unit/Ml 3 Ml Vial) 0 unit SUBCUT QIDACHS [facility]; Protocol Last Admin: 06/09/22 21:23 Dose: 2 unit Documented By: HANS Morphine Sulfate (Morphine Sulfate 4 Mg/Ml Cartridge) 4 mg IVPUSH Q3H PRN; Protocol PRN Reason: Pain, Severe (Pain Scale 7-10) Last Admin: 06/10/22 01:54 Dose: 4 mg Documented By: TIN Comments: RR=20 Ondansetron HCl (Ondansetron Hcl 4 Mg/2 Ml Vial) 4 mg IVPUSH Q8H PRN PRN Reason: Nausea Last Admin: 06/09/22 21:24 Dose: 4 mg Documented By: HANS Oxycodone HCl (Oxycodone Hcl Immed Release 5 Mg Tablet) 10 mg PO Q4H PRN PRN Reason: Pain, Moderate (Pain Scale 4-6 Last Admin: 06/09/22 08:47 Dose: 10 mg Documented By: SUE Sertraline HCl (Sertraline Hcl 50 Mg Tablet) 150 mg PO BEDTIME [facility] Last Admin: 06/09/22 21:45 Dose: Not Given Documented By: HANS Non-Admin Reason: Patient Refused Simethicone (Simethicone 80 Mg Tab.Chew) 80 mg PO QIDWMHS PRN PRN Reason: gassiness Last Admin: 06/07/22 10:45 Dose: 80 mg Documented By: NYA Sodium Chloride (0.9 % Sodium Chloride Flush 3 Ml Syringe) 3 ml IVFLUSH QSHIFT [facility] Last Admin: 06/10/22 00:29 Dose: Not Given Documented By: TIN Non-Dominique Reason: Previously Administered Sodium Chloride (0.9 % Sodium Chloride Flush 10 Ml Syringe) 5 ml IVFLUSH TID [facility] Last Admin: 06/09/22 21:45 Dose: Not Given Documented By: HANS Non-Admin Reason: IV Running Trazodone HCl (Trazodone Hcl 50 Mg Tablet) 150 mg PO BEDTIME [facility] Last Admin: 06/09/22 21:45 Dose: Not Given Documented By: HANS Non-Admin Reason: Patient Refused <Bertha Fernandez PA-C - Last Filed: 06/10/22 08:28> Labs CBC & Chem 7: : 06/10/22 05:53 06/11/22 07:38 <Bertha Fernandez PA-C - Last Filed: 06/10/22 08:28> Labs: Laboratory Results - last 24 hr 06/09/22 06/09/22 06/09/22 07:50 07:58 07:58 MCV MCH MCHC RDW Plt Count MPV Absolute Nucleated RBC Nucleated RBC % (auto) Neutrophils % (Manual) 62 Band Neutrophils % 21 H Lymphocytes % (Manual) 7 L Monocytes % (Manual) 9 Metamyelocytes % 1 Abs Neuts (Manual) 9.6 H Lymphocytes # (Manual) 0.8 L Monocytes # (Manual) 1.0 Metamyelocytes # 0.1 Platelet Estimate NORMAL Plt Morphology Comment NORMAL RBC Morphology NOTED Polychromasia 1+ (0-2) Hypochromasia 1+ (5-14) Ovalocytes 1+ (5-14) PT 12.8 INR 1.1 O2 Saturation ABG pH at Pt Temp ABG pCO2 at Pt Temp ABG pO2 at Pt Temp ABG HCO3 ABG Base Excess (Actual) Anion Gap 16 Estim Creat Clear Calc 78.1 Estimated GFR 53 POC Glucose Random Glucose Fasting Glucose 230 H Calcium 7.9 L Phosphorus 3.1 Magnesium 2.5 Albumin 3.0 L 06/09/22 06/09/22 06/09/22 08:59 13:49 16:17 MCV MCH MCHC RDW Plt Count MPV Absolute Nucleated RBC Nucleated RBC % (auto) Neutrophils % (Manual) Band Neutrophils % Lymphocytes % (Manual) Monocytes % (Manual) Metamyelocytes % Abs Neuts (Manual) Lymphocytes # (Manual) Monocytes # (Manual) Metamyelocytes # Platelet Estimate Plt Morphology Comment RBC Morphology Polychromasia Hypochromasia Ovalocytes PT INR O2 Saturation 93.0 ABG pH at Pt Temp 7.33 L ABG pCO2 at Pt Temp 58 H ABG pO2 at Pt Temp 73 L ABG HCO3 31 H ABG Base Excess (Actual) 4.5 Anion Gap Estim Creat Clear Calc Estimated GFR POC Glucose 163 H 149 H Random Glucose Fasting Glucose Calcium Phosphorus Magnesium Albumin 06/09/22 06/09/22 06/10/22 17:33 20:33 05:53 MCV 90.1 MCH 28.2 MCHC 31.3 RDW 14.6 Plt Count 190 MPV 11.0 Absolute Nucleated RBC 0.090 H Nucleated RBC % (auto) 0.8 H Neutrophils % (Manual) Band Neutrophils % Lymphocytes % (Manual) Monocytes % (Manual) Metamyelocytes % Abs Neuts (Manual) Lymphocytes # (Manual) Monocytes # (Manual) Metamyelocytes # Platelet Estimate Plt Morphology Comment RBC Morphology Polychromasia Hypochromasia Ovalocytes PT INR O2 Saturation ABG pH at Pt Temp ABG pCO2 at Pt Temp ABG pO2 at Pt Temp ABG HCO3 ABG Base Excess (Actual) Anion Gap Estim Creat Clear Calc Estimated GFR POC Glucose 134 H 173 H Random Glucose Fasting Glucose Calcium Phosphorus Magnesium Albumin 06/10/22 06/10/22 06:06 07:51 MCV MCH MCHC RDW Plt Count MPV Absolute Nucleated RBC Nucleated RBC % (auto) Neutrophils % (Manual) Band Neutrophils % Lymphocytes % (Manual) Monocytes % (Manual) Metamyelocytes % Abs Neuts (Manual) Lymphocytes # (Manual) Monocytes # (Manual) Metamyelocytes # Platelet Estimate Plt Morphology Comment RBC Morphology Polychromasia Hypochromasia Ovalocytes PT INR O2 Saturation ABG pH at Pt Temp ABG pCO2 at Pt Temp ABG pO2 at Pt Temp ABG HCO3 ABG Base Excess (Actual) Anion Gap 16 Estim Creat Clear Calc 98.9 Estimated GFR > 60 POC Glucose 210 H Random Glucose 228 H Fasting Glucose Calcium 7.7 L Phosphorus 2.0 L Magnesium 2.4 Albumin 2.7 L <Bertha Fernandez PA-C - Last Filed: 06/10/22 08:28> Procedures Date of Service Date of Service: 06/10/22 <Bertha Fernandez PA-C - Last Filed: 06/10/22 08:28> Progress Note: A&P Assessment and plan (1) S/P right colectomy: Status: Acute <Bertha Fernandez PA-C - Last Filed: 06/10/22 08:28> Assessment and Plan: Says he feels much better Was able to sleep last night No nausea or vomiting Denies abdominal tenderness Abdomen soft, benign no guarding rebound Drain in place - output decreased compared to yesterday, Concern about this being enteric contents Will follow output closely Examination otherwise very benign TPN Out of bed On antibiotics Incentive spirometry Seen and examined independently - agree with MEHREEN Fernandez <Lit Norton MD - Last Filed: 06/11/22 11:53> (2) JENNIFER (acute kidney injury): Status: Acute <Bertha Fernandez PA-C - Last Filed: 06/10/22 08:28> (3) Primary appendiceal adenocarcinoma: Status: Acute <YESENIA Wilson Last Filed: 06/10/22 08:28> (4) Intra-abdominal abscess: Status: Acute <YESENIA Wilson Last Filed: 06/10/22 08:28> Assessment and Plan: 56 year old male s/p right colectomy for appendiceal adenoCA. He has had a prolonged and complicated recovery course. Developed nausea/vomiting/distention post op and respiratory distress. CT scan revealed dilated SB loops and right lower quadrant fluid collection. He was started on IV zosyn. NGT was placed yesterday. He underwent IR drainage yesterday with drain placement. 1L of ?fecal/purulent material drained. PICC line placed. His WBC count remains elevated and had low grade temp this morning. Drain output ?fecal appearing. Will monitor. Possible repeat CT scan tomorrow to further assess collection and possible anastomotic leak/fistula. Cont IV abx, await culture. Continue TPN. Clamp NGT for 4 hrs, check residual. Unclamp sooner if develops recurrent abd pain/nausea/vomiting. Encouraged OOB/ambulation today. Appreciate hospitalist input. <Bertha Fernandez PA-C - Last Filed: 06/10/22 08:28> Time Spent With Patient Time: Total time spent is greater than 50% in coordination of care (as documented) at patient's floor/unit and/or counseling patient: <YESENIA Wilson Last Filed: 06/10/22 08:28> Quality Stroke Does the patient have a stroke diagnosis?: No <YESENIA Wilson Last Filed: 06/10/22 08:28> VTE Prior VTE?: No <YESENIA Wilson Last Filed: 06/10/22 08:28> VTE Risk Level:: Medical - moderate - high <YESENIA Wilson Last Filed: 06/10/22 08:28> VTE Device Contraindication: N/A - Device Ordered <YESENIA Wilson Last Filed: 06/10/22 08:28> VTE Drug Contraindication: N/A - Med Ordered <Bertha Fernandez PA-C - Last Filed: 06/10/22 08:28>
[2022-06-10] MEDS: busPIRone HCl 5 MG TABLET PO (08:41)
[2022-06-10] MEDS: carvediloL 12.5 MG TABLET PO ×2 (08:41→21:29)
[2022-06-10] MEDS: Insulin Lispro 100 UNIT/ML 3 ML VIAL SUBCUT ×4 (08:42→21:28)
[2022-06-10] MEDS: oxyCODONE HCl Immed Release 5 MG TABLET 10 MG PO (08:48)
[2022-06-10] MEDS: Piperacillin Sodium/Tazobactam 3.375 GM in 0.9 % Sodium Chloride 50 ML IV ×3 (09:22→21:29)
--- NOTE | 2022-06-10 10:55 | PM.PNNEP ---
Subjective Subjective Date of Service: 06/10/22 Interval history: Events noted. All recent data reviewed. Renal function better Physical Exam Vital Signs: Vital Signs: Last Vital Signs Temp 100.3 F 06/10/22 07:44 Pulse 101 H 06/10/22 07:44 Resp 12 06/10/22 07:44 BP 120/70 06/10/22 07:44 Pulse Ox 92 06/10/22 07:44 O2 Del Method 06/10/22 07:44 O2 Flow Rate 2 06/10/22 07:44 Oxygen Flow Rate 2.0 06/05/22 10:00 BMI result Body Mass Index 38.4 Const: General: no acute distress Orientation/consciousness: patient oriented x3 Eyes: EOM: EOMs intact bilaterally Neck: Neck: Yes supple Resp: Auscultation: diminished lung sounds Cardio: Rate: regular rate GI: Palpation (GI): Soft to palpation Neuro: General: patient oriented x3 and moves all extremities Objective Data Labs CBC & Chem 7: 06/10/22 05:53 06/10/22 06:06 Labs: Laboratory Results - last 24 hr 06/09/22 06/09/22 06/09/22 13:49 16:17 17:33 WBC RBC Hgb Hct MCV MCH MCHC RDW Plt Count MPV Absolute Nucleated RBC Nucleated RBC % (auto) Sodium Potassium Chloride Carbon Dioxide Anion Gap BUN Creatinine Estim Creat Clear Calc Estimated GFR POC Glucose 163 H 149 H 134 H Random Glucose Calcium Phosphorus Magnesium Albumin 06/09/22 06/10/22 06/10/22 20:33 05:53 06:06 WBC 11.4 H RBC 3.12 L Hgb 8.8 L Hct 28.1 L MCV 90.1 MCH 28.2 MCHC 31.3 RDW 14.6 Plt Count 190 MPV 11.0 Absolute Nucleated RBC 0.090 H Nucleated RBC % (auto) 0.8 H Sodium 143 Potassium 4.1 Chloride 105 Carbon Dioxide 26 Anion Gap 16 BUN 47 H Creatinine 1.09 Estim Creat Clear Calc 98.9 Estimated GFR > 60 POC Glucose 173 H Random Glucose 228 H Calcium 7.7 L Phosphorus 2.0 L Magnesium 2.4 Albumin 2.7 L 06/10/22 07:51 WBC RBC Hgb Hct MCV MCH MCHC RDW Plt Count MPV Absolute Nucleated RBC Nucleated RBC % (auto) Sodium Potassium Chloride Carbon Dioxide Anion Gap BUN Creatinine Estim Creat Clear Calc Estimated GFR POC Glucose 210 H Random Glucose Calcium Phosphorus Magnesium Albumin Microbiology Microbiology Results: Microbiology 06/09/22 15:40 Abdominal Fluid Gram Stain - Final Procedures Date of Service Date of Service: 06/10/22 Assessment & Plan Assessment and plan (1) JENNIFER (acute kidney injury): Status: Acute Assessment and Plan: Acute Kidney Injury due to tubular injury No reason to suspect GN/AIN Renal function improving PPN/TPN as per Surgery team C/W rest of current supportive care Time Spent With Patient Time: Total time spent is greater than 50% in coordination of care (as documented) at patient's floor/unit and/or counseling patient: Progress Note: Quality Stroke Does the patient have a stroke diagnosis?: No
--- NOTE | 2022-06-10 11:34 | P.PNIM_ITS ---
Subjective Subjective Date of Service: 06/10/22 Interval History: Complaining of abdominal pain with deep breathing and coughing, otherwise feeling better NG tube is in place, no overnight nausea vomiting, overall feeling significantly better than yesterday awake alert answering questions appropriately and son at bedside. Review of Systems PULVERIZER no headache no dizziness CVS no chest pain Respiratory no shortness of breath Review of Systems: Yes all other systems are reviewed and are negative Physical Exam Vital Signs: Vital Signs: Last Vital Signs Temp 100.3 F 06/10/22 07:44 Pulse 101 H 06/10/22 07:44 Resp 12 06/10/22 07:44 BP 120/70 06/10/22 07:44 Pulse Ox 92 06/10/22 07:44 O2 Del Method 06/10/22 07:44 O2 Flow Rate 2 06/10/22 07:44 Oxygen Flow Rate 2.0 06/05/22 10:00 BMI result Body Mass Index 38.4 Const: Other: General awake alert,in no acute distress.?NG in place Neck supple no JVD. CVS? regular rate rhythm, Respiratory lungs clear to auscultation, no respiratory distress, no wheeze, no rhonchi. Gastrointestinal abdomen distended, mild discomfort with palpation, bowel sounds audible, no guarding , no rigidity, clean incision, right-sided drain in place Extremities no edema. Neuro nonfocal patient moving all 4 extremity speech clear. Skin no rash Psych appropriate affect Objective Data Active Medications Albuterol Sulfate (Albuterol Sulfate (0.042%) 1.25 Mg/3 Ml Vial.Neb) 1.25 mg INHALE RQ6H PRN PRN Reason: shortness of breath Last Admin: 06/07/22 23:46 Dose: 1.25 mg Documented By: STEPHANIE Atorvastatin Calcium (Atorvastatin Calcium 10 Mg Tablet) 10 mg PO BEDTIME [facility] Last Admin: 06/09/22 21:45 Dose: Not Given Documented By: HANS Non-Admin Reason: Patient Refused Buspirone HCl (Buspirone Hcl 5 Mg Tablet) 5 mg PO DAILY [facility] Last Admin: 06/10/22 08:41 Dose: 5 mg Documented By: SAMUEL Carvedilol (Carvedilol 12.5 Mg Tablet) 12.5 mg PO BID [facility]; Protocol Last Admin: 06/10/22 08:41 Dose: 12.5 mg Documented By: SAMUEL Dextrose (Dextrose 50 % 25 Gm/50 Ml Syringe) 25 gm IVPUSH Q15M PRN; Protocol PRN Reason: per Hypoglycemia Standing Ord. Glucose (Glucose Gel 15 Gm Gel..Gram.) 15 gm PO Q15M PRN; Protocol PRN Reason: per Hypoglycemia Standing Ord. Heparin Sodium (Porcine) (Heparin Sodium,Porcine 5,000 Unit/Ml Vial) 5,000 unit SUBCUT Q8H [facility] Last Admin: 06/10/22 05:56 Dose: 5,000 unit Documented By: TIN Promethazine HCl 12.5 mg/ (Sodium Chloride) 50.5 mls @ 202 mls/hr IV Q6H PRN PRN Reason: Nausea and Vomiting Acetaminophen (Ofirmev) 1,000 mg in 100 mls @ 400 mls/hr IV Q6H PRN PRN Reason: abdominal pain Last Infusion: 06/07/22 17:16 Dose: 0 mls/hr Documented By: NYA Azithromycin 500 mg/ Sodium (Chloride) 250 mls @ 125 mls/hr IV Q24H [facility] Last Infusion: 06/09/22 20:33 Dose: 0 mls/hr Documented By: TIN Potassium Chloride 60 meq/Sodium Chloride 70 meq/Magnesium Sulfate 10 meq/Potassium Phosphate 15 mmol/Calcium Gluconate 9.3 meq/Multivitamins 10 ml/ Trace Metals 1 ml/ Amino Acids/Electrolytes/Dextrose 2,000 mls @ 100 mls/hr IVCONT DAILY@1800 [facility] Stop: 06/10/22 13:59 Last Admin: 06/09/22 18:01 Dose: 100 mls/hr Documented By: SUE Fat Emulsion Intravenous (Intralipid) 240 mls @ 20 mls/hr IVCONT BID@0600,1800 [facility] Stop: 06/10/22 17:59 Last Admin: 06/10/22 05:59 Dose: 20 mls/hr Documented By: TIN Potassium Chloride 30 meq/Sodium Chloride 35 meq/Magnesium Sulfate 5 meq/Potassium Phosphate 7.5 mmol/Calcium Gluconate 4.65 meq/Amino Acids/Electrolytes/Dextrose 400 mls @ 100 mls/hr IVCONT DAILY@1800 [facility] Stop: 06/10/22 17:59 Piperacillin Sod/Tazobactam (Sod 3.375 gm/ Sodium Chloride) 50 mls @ 100 mls/hr IV Q6H [facility] Last Infusion: 06/10/22 10:19 Dose: 0 mls/hr Documented By: SAMUEL Insulin Human Lispro (Insulin Lispro 100 Unit/Ml 3 Ml Vial) 0 unit SUBCUT QIDACHS [facility]; Protocol Last Admin: 06/10/22 08:42 Dose: 4 unit Documented By: SAMUEL Morphine Sulfate (Morphine Sulfate 4 Mg/Ml Cartridge) 4 mg IVPUSH Q3H PRN; Protocol PRN Reason: Pain, Severe (Pain Scale 7-10) Last Admin: 06/10/22 01:54 Dose: 4 mg Documented By: TIN Comments: RR=20 Ondansetron HCl (Ondansetron Hcl 4 Mg/2 Ml Vial) 4 mg IVPUSH Q8H PRN PRN Reason: Nausea Last Admin: 06/09/22 21:24 Dose: 4 mg Documented By: HANS Oxycodone HCl (Oxycodone Hcl Immed Release 5 Mg Tablet) 10 mg PO Q4H PRN PRN Reason: Pain, Moderate (Pain Scale 4-6 Last Admin: 06/10/22 08:48 Dose: 10 mg Documented By: SAMUEL Sertraline HCl (Sertraline Hcl 50 Mg Tablet) 150 mg PO BEDTIME [facility] Last Admin: 06/09/22 21:45 Dose: Not Given Documented By: HANS Non-Admin Reason: Patient Refused Simethicone (Simethicone 80 Mg Tab.Chew) 80 mg PO QIDWMHS PRN PRN Reason: gassiness Last Admin: 06/07/22 10:45 Dose: 80 mg Documented By: NYA Sodium Chloride (0.9 % Sodium Chloride Flush 3 Ml Syringe) 3 ml IVFLUSH QSHIFT [facility] Last Admin: 06/10/22 08:49 Dose: Not Given Documented By: SAMUEL Non-Admin Reason: IV Running Sodium Chloride (0.9 % Sodium Chloride Flush 10 Ml Syringe) 5 ml IVFLUSH TID [facility] Last Admin: 06/10/22 08:41 Dose: Not Given Documented By: SAMUEL Non-Admin Reason: IV Running Trazodone HCl (Trazodone Hcl 50 Mg Tablet) 150 mg PO BEDTIME [facility] Last Admin: 06/09/22 21:45 Dose: Not Given Documented By: HANS Non-Admin Reason: Patient Refused Labs CBC & Chem 7: 06/10/22 05:53 06/10/22 06:06 Labs: Laboratory Results - last 24 hr 06/09/22 06/09/22 06/09/22 13:49 16:17 17:33 MCV MCH MCHC RDW Plt Count MPV Absolute Nucleated RBC Nucleated RBC % (auto) Anion Gap Estim Creat Clear Calc Estimated GFR POC Glucose 163 H 149 H 134 H Random Glucose Calcium Phosphorus Magnesium Albumin 06/09/22 06/10/22 06/10/22 20:33 05:53 06:06 MCV 90.1 MCH 28.2 MCHC 31.3 RDW 14.6 Plt Count 190 MPV 11.0 Absolute Nucleated RBC 0.090 H Nucleated RBC % (auto) 0.8 H Anion Gap 16 Estim Creat Clear Calc 98.9 Estimated GFR > 60 POC Glucose 173 H Random Glucose 228 H Calcium 7.7 L Phosphorus 2.0 L Magnesium 2.4 Albumin 2.7 L 06/10/22 07:51 MCV MCH MCHC RDW Plt Count MPV Absolute Nucleated RBC Nucleated RBC % (auto) Anion Gap Estim Creat Clear Calc Estimated GFR POC Glucose 210 H Random Glucose Calcium Phosphorus Magnesium Albumin Microbiology Microbiology Results: Microbiology 06/09/22 15:40 Gram Stain - Final Abdominal Fluid Assessment and Plan (1) Intra-abdominal abscess: Status: Acute (2) JENNIFER (acute kidney injury): Status: Acute Plan 56 yo M with a PMH of HTN, DM, KYM on CPAP, morbid obesity, migranes, depression who is admitted under the general surgical services for resection of appendiceal adenoCa. 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 Resp acidosis, Hx of KYM PCO2 improved from 75-58 ,pH 7.3 Patient denies shortness of breath finger oximetry 93% on 3 L of oxygen, not on home oxygen has not been using his cpap while hospitalized Monitor closely for decompensation Encourage incentive spirometry Acute respiratory failure with hypoxia likely due to pneumonia and atelectasis no effusion noted, no CHF Trop negative EKG ST with PVC Echo ef 55-60% Continue IV Zosyn day 2 and IV azithromycin supplemental O2 as needed Encourage IS/ambulate as tolerated Hypokalemia repeated in resolved JENNIFER. Creatinine normalized is status post IV fluid renal ultrasound showed no obstruction thrombocytopenia resolved DM Patient is NPO continue insulin sliding scale PICC line placed and TPN will be started HTN BP soft,Continue Coreg Hydrochlorothiazide, losartan on hold HLD continue statin KYM Patient did not use CPAP last night repeat ABG showed improvement in pCO2 Mood continue zoloft, buspar and trazodone smudge cells noted on CBC no lymphocytosis, or leukocytosis recommend outpatient follow up Obesity BMI 38.5 Discussed importance of weight management as this may be contributing to worsening of other comorbidities dvt ppx - heparin Patient need continued inpatient hospitalization since NPO requiring IV TPN has significant ileus Quality Stroke Does the patient have a stroke diagnosis?: No VTE Prior VTE?: No VTE Risk Level:: Medical - moderate - high VTE Device Contraindication: N/A - Device Ordered VTE Drug Contraindication: N/A - Med Ordered
--- NOTE | 2022-06-10 11:42 | PC.NURSE ---
NG tube has been clamped since 0800. 0cc residual. Fecal appearing/smelling draining from drain. aware. And ok to remove ng tube . Patient OOB ambulating steady gait.
[2022-06-10 11:47] LABS: Glucose, Whole Blood 210 mg/dL (60-115)
[2022-06-10 11:50] VITALS: BP 107/60; PULSE 86; RESP 20; TEMP 36.3; O2SAT 94
--- NOTE | 2022-06-10 12:22 | MHC.CLN ---
F/U PT RECEIVED PICC LINE YESTERDAY LABS REVIEWED COMMUNICATED WITH PHARMACY AND PROVIDER RECOMMEND CHANGE TO TPN D15AA5 AT 85ML PER HOUR WITH 37 ML OF 20% LIPIDS X 12 HRS PROVIDES 2336 KCALS (27 KCALS/KG BASED ON CMW), 102 G PROTEIN (1.17 G/KG) REPLETE LYTES NEEDED
--- NOTE | 2022-06-10 14:45 | PM.EVENT ---
Event Note Date of Service: 06/11/22 Event Note: Follow closely today Says he has been feeling better all day Out of bed to recliner now Looks comfortable Abdomen soft and benign Drain with purulent looking output Looks well NG tube out TPN starting today Will limit the intake to sips in view of possibility of fistulous connection to the abscess cavity On IV antibiotics Much improved after CT drain
[2022-06-10 15:55] LABS: Glucose, Whole Blood 180 mg/dL (60-115)
[2022-06-10 16:00] VITALS: BP 114/63; PULSE 93; RESP 16; TEMP 37.1; O2SAT 93
[2022-06-10] MEDS: Azithromycin 500 MG in 0.9 % Sodium Chloride 250 ML 125 MG IV (17:51)
[2022-06-10] MEDS: Fat Emulsions 20% 250 ML 37 ML IV (18:12)
[2022-06-10 19:12] VITALS: BP 123/64; PULSE 96; RESP 16; TEMP 37.2; O2SAT 94
[2022-06-10 19:58] LABS: Glucose, Whole Blood 214 mg/dL (60-115)
[2022-06-10] MEDS: traZODone HCL 50 MG TABLET 150 MG PO (21:28)
[2022-06-10] MEDS: Sertraline HCL 50 MG TABLET 150 MG PO (21:29)
[2022-06-10] MEDS: 0.9 % Sodium Chloride Flush 3 ML SYRINGE IVFLUSH (21:29)
[2022-06-10] MEDS: Atorvastatin Calcium 10 MG TABLET PO (21:29)
[2022-06-10] MEDS: ondansetron HCL 4 MG/2 ML VIAL IVPUSH (21:39)
[2022-06-11] VITALS (7 sets, daily range): BP systolic 99–120; BP diastolic 55–71; PULSE 78–102; RESP 17–18; TEMP 36.3–37.6; O2SAT 91–97
[2022-06-11] MEDS: Fat Emulsions 20% 250 ML 37 ML IV ×3 (00:07→23:27)
[2022-06-11 00:35] LABS: Glucose, Whole Blood 206 mg/dL (60-115)
[2022-06-11] MEDS: Piperacillin Sodium/Tazobactam 3.375 GM in 0.9 % Sodium Chloride 50 ML IV ×4 (04:16→22:41)
[2022-06-11] MEDS: Heparin Sodium,Porcine 5,000 UNIT/ML VIAL 5000 UNIT SUBCUT ×3 (05:50→22:43)
[2022-06-11 07:21] LABS: Glucose, Whole Blood 269 mg/dL (60-115)
[2022-06-11] MEDS: carvediloL 12.5 MG TABLET PO ×2 (07:46→22:42)
[2022-06-11] MEDS: busPIRone HCl 5 MG TABLET PO (07:47)
[2022-06-11] MEDS: 0.9 % Sodium Chloride Flush 3 ML SYRINGE IVFLUSH ×3 (07:47→22:44)
[2022-06-11] MEDS: Insulin Lispro 100 UNIT/ML 3 ML VIAL SUBCUT ×3 (07:49→16:14)
--- NOTE | 2022-06-11 08:30 | PM.PNGS ---
Subjective Subjective Date of Service: 06/15/22 Interval history: Feels ok this morning. Denies significant pain but states drain site is pinching. Continues to pass flatus. Was OOB and ambulated halls yesterday. Physical Exam Vital Signs: Vital Signs: Last Vital Signs Temp 99.7 F 06/11/22 07:11 Pulse 88 06/11/22 07:11 Resp 17 06/11/22 07:11 BP 115/65 06/11/22 07:11 Pulse Ox 96 06/11/22 07:11 O2 Del Method 06/11/22 07:11 O2 Flow Rate 2 06/11/22 07:11 Oxygen Flow Rate 2.0 06/05/22 10:00 BMI result Body Mass Index 38.4 Const: General: comfortable and alert Orientation/consciousness: patient oriented x3 Resp: Effort & Inspection: normal respiratory effort GI: Inspection: Yes distended Palpation (GI): Soft to palpation, Tenderness to palpation present (GI) (mild right sided, drain site), no guarding and not rigid Percussion: Yes tympanic to percussion Skin: General skin exam: no rashes or lesions noted Neuro: General: patient oriented x3 and moves all extremities Objective Data Active Medications Albuterol Sulfate (Albuterol Sulfate (0.042%) 1.25 Mg/3 Ml Vial.Neb) 1.25 mg INHALE RQ6H PRN PRN Reason: shortness of breath Last Admin: 06/07/22 23:46 Dose: 1.25 mg Documented By: STEPHANIE Atorvastatin Calcium (Atorvastatin Calcium 10 Mg Tablet) 10 mg PO BEDTIME [facility] Last Admin: 06/10/22 21:29 Dose: 10 mg Documented By: TIN Buspirone HCl (Buspirone Hcl 5 Mg Tablet) 5 mg PO DAILY [facility] Last Admin: 06/11/22 07:47 Dose: 5 mg Documented By: SAMUEL Carvedilol (Carvedilol 12.5 Mg Tablet) 12.5 mg PO BID [facility]; Protocol Last Admin: 06/11/22 07:46 Dose: 12.5 mg Documented By: SAMUEL Dextrose (Dextrose 50 % 25 Gm/50 Ml Syringe) 25 gm IVPUSH Q15M PRN; Protocol PRN Reason: per Hypoglycemia Standing Ord. Glucose (Glucose Gel 15 Gm Gel..Gram.) 15 gm PO Q15M PRN; Protocol PRN Reason: per Hypoglycemia Standing Ord. Heparin Sodium (Porcine) (Heparin Sodium,Porcine 5,000 Unit/Ml Vial) 5,000 unit SUBCUT Q8H [facility] Last Admin: 06/11/22 05:50 Dose: 5,000 unit Documented By: TIN Promethazine HCl 12.5 mg/ (Sodium Chloride) 50.5 mls @ 202 mls/hr IV Q6H PRN PRN Reason: Nausea and Vomiting Acetaminophen (Ofirmev) 1,000 mg in 100 mls @ 400 mls/hr IV Q6H PRN PRN Reason: abdominal pain Last Infusion: 06/07/22 17:16 Dose: 0 mls/hr Documented By: NYA Azithromycin 500 mg/ Sodium (Chloride) 250 mls @ 125 mls/hr IV Q24H [facility] Last Infusion: 06/10/22 20:21 Dose: 0 mls/hr Documented By: TIN Piperacillin Sod/Tazobactam (Sod 3.375 gm/ Sodium Chloride) 50 mls @ 100 mls/hr IV Q6H [facility] Last Infusion: 06/11/22 04:51 Dose: 0 mls/hr Documented By: TIN Potassium Chloride 46 meq/Sodium Chloride 70 meq/Magnesium Sulfate 10 meq/Potassium Phosphate 24 mmol/Calcium Gluconate 9.3 meq/Multivitamins 10 ml/ Trace Metals 1 ml/ Amino Acids/Dextrose 2,040 mls @ 85 mls/hr IV DAILY@1800 [facility] Stop: 06/11/22 17:59 Last Admin: 06/10/22 18:13 Dose: 85 mls/hr Documented By: SAMUEL Insulin Human Lispro (Insulin Lispro 100 Unit/Ml 3 Ml Vial) 0 unit SUBCUT QIDACHS [facility]; Protocol Last Admin: 06/11/22 07:49 Dose: 6 unit Documented By: SAMUEL Morphine Sulfate (Morphine Sulfate 4 Mg/Ml Cartridge) 4 mg IVPUSH Q3H PRN; Protocol PRN Reason: Pain, Severe (Pain Scale 7-10) Last Admin: 06/10/22 01:54 Dose: 4 mg Documented By: TIN Comments: RR=20 Ondansetron HCl (Ondansetron Hcl 4 Mg/2 Ml Vial) 4 mg IVPUSH Q8H PRN PRN Reason: Nausea Last Admin: 06/10/22 21:39 Dose: 4 mg Documented By: TIN Oxycodone HCl (Oxycodone Hcl Immed Release 5 Mg Tablet) 10 mg PO Q4H PRN PRN Reason: Pain, Moderate (Pain Scale 4-6 Last Admin: 06/10/22 08:48 Dose: 10 mg Documented By: SAMUEL Sertraline HCl (Sertraline Hcl 50 Mg Tablet) 150 mg PO BEDTIME [facility] Last Admin: 06/10/22 21:29 Dose: 150 mg Documented By: TIN Simethicone (Simethicone 80 Mg Tab.Chew) 80 mg PO QIDWMHS PRN PRN Reason: gassiness Last Admin: 06/07/22 10:45 Dose: 80 mg Documented By: NYA Sodium Chloride (0.9 % Sodium Chloride Flush 3 Ml Syringe) 3 ml IVFLUSH QSHIFT [facility] Last Admin: 06/11/22 07:47 Dose: 3 ml Documented By: SAMUEL Sodium Chloride (0.9 % Sodium Chloride Flush 10 Ml Syringe) 5 ml IVFLUSH TID [facility] Last Admin: 06/11/22 07:47 Dose: Not Given Documented By: SAMUEL Non-Admin Reason: IV Running Trazodone HCl (Trazodone Hcl 50 Mg Tablet) 150 mg PO BEDTIME [facility] Last Admin: 06/10/22 21:28 Dose: 150 mg Documented By: TIN Labs CBC & Chem 7: 06/12/22 07:52 06/15/22 09:46 Labs: Laboratory Results - last 24 hr 06/10/22 06/10/22 06/10/22 11:33 15:51 19:53 POC Glucose 210 H 180 H 214 H 06/11/22 06/11/22 00:30 07:13 POC Glucose 206 H 269 H Microbiology Microbiology Results: Microbiology 06/09/22 15:40 Gram Stain - Final Abdominal Fluid Routine Culture - Preliminary Anaerobic Culture - Preliminary Culture in progress. Procedures Date of Service Date of Service: 06/11/22 Progress Note: A&P Assessment and plan (1) Intra-abdominal abscess: Status: Acute (2) S/P right colectomy: Status: Acute (3) JENNIFER (acute kidney injury): Status: Acute Plan 56 year old male s/p right colectomy for appendiceal adenoCA. He has had a prolonged and complicated recovery course. Developed nausea/vomiting/distention post op and respiratory distress. CT scan revealed dilated SB loops and right lower quadrant fluid collection. He was started on IV zosyn. NGT was placed yesterday. He underwent IR drainage 06/09 with drain placement with 1L of ?fecal/purulent material drained. PICC line placed. Drain output continues to be fecal appearing. His NGT was removed yesterday. Cont TPN, limit PO intake given possibility of fistulous connection to abscess cavity but ok to have ice chips/sips. Cont IV zosyn and azithromycin, await culture. Continue TPN- will discuss with pharmacy about adding insulin given consistently elevated POCs. Encouraged OOB/ambulation today. PT consult. Continue to follow closely. Appreciate hospitalist input. Time Spent With Patient Time: Total time spent is greater than 50% in coordination of care (as documented) at patient's floor/unit and/or counseling patient: Quality Stroke Does the patient have a stroke diagnosis?: No VTE Prior VTE?: No VTE Risk Level:: Medical - moderate - high VTE Device Contraindication: N/A - Device Ordered VTE Drug Contraindication: N/A - Med Ordered
[2022-06-11 08:51] LABS: Albumin Level 2.8 g/dL (3.5-5.0); Anion Gap 16 (12-20); Blood Urea Nitrogen 32 mg/dL (9-16); Calcium 8.5 mg/dL (8.4-10.2); Carbon Dioxide 30 mmol/L (22-29); Chloride 104 mmol/L (96-108); Creatinine Clr Calc Pharmacy 91.3; Estimated Glomerular Filt Rate > 60; Glucose Random 297 mg/dL (60-115); Magnesium 2.3 mg/dL (1.6-2.6); Phosphorus 3.3 mg/dL (2.7-4.5); Sodium 146 mmol/L (135-145)
--- NOTE | 2022-06-11 09:45 | P.PNNP_ITS ---
Subjective Subjective Date of Service: 06/11/22 Interval history: stable overnight. Physical Exam Vital Signs: Vital Signs: Last Vital Signs Temp 99.7 F 06/11/22 07:11 Pulse 88 06/11/22 07:11 Resp 17 06/11/22 07:11 BP 115/65 06/11/22 07:11 Pulse Ox 96 06/11/22 07:11 O2 Del Method 06/11/22 07:11 O2 Flow Rate 2 06/11/22 07:11 Oxygen Flow Rate 2.0 06/05/22 10:00 BMI result Body Mass Index 38.4 Const: Other: General awake alert,in no acute distress.?NG in place Neck supple no JVD. CVS? regular rate rhythm, Respiratory lungs clear to auscultation, no respiratory distress, no wheeze, no rhonchi. Gastrointestinal abdomen distended, mild discomfort with palpation, bowel sounds audible, no guarding , no rigidity, clean incision, right-sided drain in place Extremities no edema. Neuro nonfocal patient moving all 4 extremity speech clear. Skin no rash Psych appropriate affect General: cooperative, comfortable, no acute distress, alert, awake and tired appearing Nutritional Appearance: obese Orientation/consciousness: patient oriented x3 Limitations: no limitations and No language barrier Eyes: General: appearance normal, both eyes and all related structures Pupils: Equal, round and reactive pupils present EOM: EOMs intact bilaterally Neck: Neck: Yes supple Resp: Other: Mild shortness of breath Effort & Inspection: normal respiratory effort and able to speak in complete sentences Auscultation: clear to auscultation bilaterally, crackles and diminished lung sounds Cardio: Rate: regular rate and tachycardic Rhythm: regular rhythm Heart sounds: S1 normal heart sound present and S2 normal heart sound present GI: Other: pigtail drain in place with ?enteric purulent drainage Inspection: Yes distended and Yes incision (clean) Palpation (GI): Soft to palpation, Tenderness to palpation present (GI) (mild right sided, drain site) with no rebound tenderness, no guarding and not rigid Percussion: Yes tympanic to percussion Skin: Other: diaphoretic General skin exam: no rashes or lesions noted Lesions: no lesions Neuro: General: patient oriented x3, moves all extremities and CN's II-XI intact bilaterally Cranial nerves: Yes Equal, round and reactive pupils present Cognition (Neuro): normal cognition Extrem: General: Yes normal to inspection, Yes no clubbing, cyanosis or edema and Yes no pedal edema Objective Data Labs CBC & Chem 7: 06/10/22 05:53 06/11/22 07:38 Labs: Laboratory Results - last 24 hr 06/10/22 06/10/22 06/10/22 11:33 15:51 19:53 Sodium Potassium Chloride Carbon Dioxide Anion Gap BUN Creatinine Estim Creat Clear Calc Estimated GFR POC Glucose 210 H 180 H 214 H Random Glucose Calcium Phosphorus Magnesium Albumin 06/11/22 06/11/22 06/11/22 00:30 07:13 07:38 Sodium 146 H Potassium 4.0 Chloride 104 Carbon Dioxide 30 H Anion Gap 16 BUN 32 H Creatinine 1.18 Estim Creat Clear Calc 91.3 Estimated GFR > 60 POC Glucose 206 H 269 H Random Glucose 297 H Calcium 8.5 D Phosphorus 3.3 Magnesium 2.3 Albumin 2.8 L Microbiology Microbiology Results: Microbiology 06/09/22 15:40 Abdominal Fluid Gram Stain - Final 06/09/22 15:40 Abdominal Fluid Routine Culture - Preliminary 06/09/22 15:40 Abdominal Fluid Anaerobic Culture - Preliminary Culture in progress. Procedures Date of Service Date of Service: 06/11/22 Assessment & Plan Assessment and plan (1) Intra-abdominal abscess: Status: Acute (2) S/P right colectomy: Status: Acute (3) JENNIFER (acute kidney injury): Status: Acute Plan 56 year old male s/p right colectomy for appendiceal adenoCA. He has had a prolonged and complicated recovery course. Developed nausea/vomiting/distention post op and respiratory distress. CT scan revealed dilated SB loops and right lower quadrant fluid collection. He was started on IV zosyn. NGT was placed yesterday. He underwent IR drainage 06/09 with drain placement with 1L of ?fecal/purulent material drained. PICC line placed. Drain output continues to be fecal appearing. His NGT was removed yesterday. Cont TPN, limit PO intake given possibility of fistulous connection to abscess cavity but ok to have ice chips/sips. Cont IV zosyn and azithromycin, await culture. Continue TPN- will discuss with pharmacy about adding insulin given co nsistently elevated POCs. Encouraged OOB/ambulation today. PT consult. Continue to follow closely. renal function stable Na a bit high increase free h20 in the TPN Time Spent With Patient Time: Total time spent is greater than 50% in coordination of care (as documented) at patient's floor/unit and/or counseling patient: Progress Note: Quality Stroke Does the patient have a stroke diagnosis?: No
--- NOTE | 2022-06-11 10:28 | MHC.CLN ---
F/U CONTINUES NPO WITH TPN. LABS REVIEWED. COMMUNICATED WITH PHARMACY.. RECOMMEND CONTINUE TON T MAX GOAL RATE: TPN D15AA5 AT 85ML PER HOUR WITH 37 ML OF 20% LIPIDS X 12 HRS PROVIDES 2336 KCALS (27 KCALS/KG BASED ON CMW), 102 G PROTEIN (1.17 G/KG). REPLETE LYTES NEEDED. FOLLOW FOR TPN, LABS, AND DIET UPGRADE/TOLERANCE.
[2022-06-11 10:55] LABS: Glucose, Whole Blood 234 mg/dL (60-115)
--- NOTE | 2022-06-11 11:19 | MHC.CLN ---
F/U CONTINUES NPO WITH TPN. LABS REVIEWED. COMMUNICATED WITH PHARMACY. RECOMMEND CONTINUE TPN AT MAX GOAL RATE: TPN D15AA5 AT 85ML PER HOUR WITH 37 ML OF 20% LIPIDS X 12 HRS. PROVIDES 2336 KCALS (27 KCALS/KG BASED ON CMW), 102 G PROTEIN (1.17 G/KG). REPLETE LYTES NEEDED. FOLLOW FOR TPN, LABS, AND DIET UPGRADE/TOLERANCE.
--- NOTE | 2022-06-11 11:53 | PM.PNGS ---
Subjective Subjective Date of Service: 06/14/22 Interval history: says he slept ok denies pain no vomitting some SOB especially wth exertion Physical Exam Vital Signs: Vital Signs: Last Vital Signs Temp 97.3 F 06/11/22 11:12 Pulse 78 06/11/22 11:12 Resp 17 06/11/22 11:12 BP 99/55 L 06/11/22 11:12 Pulse Ox 97 06/11/22 11:12 O2 Del Method 06/11/22 11:12 O2 Flow Rate 2 06/11/22 11:12 Oxygen Flow Rate 2.0 06/05/22 10:00 BMI result Body Mass Index 38.4 Const: General: comfortable and no acute distress Resp: Other: gets SOB with exertion Cardio: Rate: regular rate GI: Other: protuberant, soft benign, drain in place- thick greenish Objective Data Active Medications Albuterol Sulfate (Albuterol Sulfate (0.042%) 1.25 Mg/3 Ml Vial.Neb) 1.25 mg INHALE RQ6H PRN PRN Reason: shortness of breath Last Admin: 06/07/22 23:46 Dose: 1.25 mg Documented By: STEPHANIE Atorvastatin Calcium (Atorvastatin Calcium 10 Mg Tablet) 10 mg PO BEDTIME [facility] Last Admin: 06/10/22 21:29 Dose: 10 mg Documented By: TIN Buspirone HCl (Buspirone Hcl 5 Mg Tablet) 5 mg PO DAILY [facility] Last Admin: 06/11/22 07:47 Dose: 5 mg Documented By: SAMUEL Carvedilol (Carvedilol 12.5 Mg Tablet) 12.5 mg PO BID [facility]; Protocol Last Admin: 06/11/22 07:46 Dose: 12.5 mg Documented By: SAMUEL Dextrose (Dextrose 50 % 25 Gm/50 Ml Syringe) 25 gm IVPUSH Q15M PRN; Protocol PRN Reason: per Hypoglycemia Standing Ord. Glucose (Glucose Gel 15 Gm Gel..Gram.) 15 gm PO Q15M PRN; Protocol PRN Reason: per Hypoglycemia Standing Ord. Heparin Sodium (Porcine) (Heparin Sodium,Porcine 5,000 Unit/Ml Vial) 5,000 unit SUBCUT Q8H [facility] Last Admin: 06/11/22 05:50 Dose: 5,000 unit Documented By: TIN Promethazine HCl 12.5 mg/ (Sodium Chloride) 50.5 mls @ 202 mls/hr IV Q6H PRN PRN Reason: Nausea and Vomiting Acetaminophen (Ofirmev) 1,000 mg in 100 mls @ 400 mls/hr IV Q6H PRN PRN Reason: abdominal pain Last Infusion: 06/07/22 17:16 Dose: 0 mls/hr Documented By: NYA Azithromycin 500 mg/ Sodium (Chloride) 250 mls @ 125 mls/hr IV Q24H [facility] Last Infusion: 06/10/22 20:21 Dose: 0 mls/hr Documented By: TIN Piperacillin Sod/Tazobactam (Sod 3.375 gm/ Sodium Chloride) 50 mls @ 100 mls/hr IV Q6H [facility] Last Infusion: 06/11/22 10:51 Dose: 100 mls/hr Documented By: SAMUEL Potassium Chloride 46 meq/Sodium Chloride 70 meq/Magnesium Sulfate 10 meq/Potassium Phosphate 24 mmol/Calcium Gluconate 9.3 meq/Multivitamins 10 ml/ Trace Metals 1 ml/ Amino Acids/Dextrose 2,040 mls @ 85 mls/hr IV DAILY@1800 [facility] Stop: 06/11/22 17:59 Last Admin: 06/10/22 18:13 Dose: 85 mls/hr Documented By: SAMUEL Insulin Human Lispro (Insulin Lispro 100 Unit/Ml 3 Ml Vial) 0 unit SUBCUT QIDACHS [facility]; Protocol Last Admin: 06/11/22 11:38 Dose: 4 unit Documented By: SAMUEL Morphine Sulfate (Morphine Sulfate 4 Mg/Ml Cartridge) 4 mg IVPUSH Q3H PRN; Protocol PRN Reason: Pain, Severe (Pain Scale 7-10) Last Admin: 06/10/22 01:54 Dose: 4 mg Documented By: TIN Comments: RR=20 Ondansetron HCl (Ondansetron Hcl 4 Mg/2 Ml Vial) 4 mg IVPUSH Q8H PRN PRN Reason: Nausea Last Admin: 06/10/22 21:39 Dose: 4 mg Documented By: TIN Oxycodone HCl (Oxycodone Hcl Immed Release 5 Mg Tablet) 10 mg PO Q4H PRN PRN Reason: Pain, Moderate (Pain Scale 4-6 Last Admin: 06/10/22 08:48 Dose: 10 mg Documented By: SAMUEL Sertraline HCl (Sertraline Hcl 50 Mg Tablet) 150 mg PO BEDTIME [facility] Last Admin: 06/10/22 21:29 Dose: 150 mg Documented By: TIN Simethicone (Simethicone 80 Mg Tab.Chew) 80 mg PO QIDWMHS PRN PRN Reason: gassiness Last Admin: 06/07/22 10:45 Dose: 80 mg Documented By: NYA Sodium Chloride (0.9 % Sodium Chloride Flush 3 Ml Syringe) 3 ml IVFLUSH QSHIFT [facility] Last Admin: 06/11/22 07:47 Dose: 3 ml Documented By: SAMUEL Sodium Chloride (0.9 % Sodium Chloride Flush 10 Ml Syringe) 5 ml IVFLUSH TID [facility] Last Admin: 06/11/22 07:47 Dose: Not Given Documented By: SAMUEL Non-Admin Reason: IV Running Trazodone HCl (Trazodone Hcl 50 Mg Tablet) 150 mg PO BEDTIME [facility] Last Admin: 06/10/22 21:28 Dose: 150 mg Documented By: TIN Labs CBC & Chem 7: 06/12/22 07:52 06/14/22 07:41 Labs: Laboratory Results - last 24 hr 06/10/22 06/10/22 06/11/22 15:51 19:53 00:30 Anion Gap Estim Creat Clear Calc Estimated GFR POC Glucose 180 H 214 H 206 H Random Glucose Calcium Phosphorus Magnesium Albumin 06/11/22 06/11/22 06/11/22 07:13 07:38 10:48 Anion Gap 16 Estim Creat Clear Calc 91.3 Estimated GFR > 60 POC Glucose 269 H 234 H Random Glucose 297 H Calcium 8.5 D Phosphorus 3.3 Magnesium 2.3 Albumin 2.8 L Microbiology Microbiology Results: Microbiology 06/09/22 15:40 Gram Stain - Final Abdominal Fluid Routine Culture - Preliminary Anaerobic Culture - Preliminary Culture in progress. Procedures Date of Service Date of Service: 06/11/22 Progress Note: A&P Assessment and plan (1) Intra-abdominal abscess: Status: Acute Assessment and Plan: S/P CT drain output from drain less overnight - 100 cc on sips of liquids for now due to possibility of fistulous connection to abscesss cavity keep drain in on IV abx TPN lytes ok BUN crea much better exam remains very benign follow drain output plan to repeat CT next week Time Spent With Patient Time: Total time spent is greater than 50% in coordination of care (as documented) at patient's floor/unit and/or counseling patient: Quality Stroke Does the patient have a stroke diagnosis?: No VTE Prior VTE?: No VTE Risk Level:: Medical - moderate - high VTE Device Contraindication: N/A - Device Ordered VTE Drug Contraindication: N/A - Med Ordered
--- NOTE | 2022-06-11 12:57 | P.PNIM_ITS ---
Subjective Subjective Date of Service: 06/11/22 Interval History: Overall feeling better complaining of abdominal discomfort, no nausea, no fever, no chills, no other acute issues overnight, passing flatus. Complaining of mild Shortness of breath and cough. Review of Systems [employer] no headache no dizziness CVS no chest pain Skin no rash Review of Systems: Yes all other systems are reviewed and are negative Physical Exam Vital Signs: Vital Signs: Last Vital Signs Temp 97.3 F 06/11/22 11:12 Pulse 78 06/11/22 11:12 Resp 17 06/11/22 11:12 BP 99/55 L 06/11/22 11:12 Pulse Ox 97 06/11/22 11:12 O2 Del Method 06/11/22 11:12 O2 Flow Rate 2 06/11/22 11:12 Oxygen Flow Rate 2.0 06/05/22 10:00 BMI result Body Mass Index 38.4 Const: Other: General awake alert,in no acute distress.? Neck supple no JVD. CVS? regular rate rhythm, Respiratory lungs clear to auscultation, diminished at bases, no respiratory distress, no wheeze, no rhonchi. Gastrointestinal abdomen distended, mild discomfort with palpation, bowel sounds audible, no guarding , no rigidity, clean incision, right-sided drain in place, green pasty discharge Extremities no edema. Neuro nonfocal patient moving all 4 extremity speech clear. Skin no rash Psych appropriate affect Objective Data Active Medications Albuterol Sulfate (Albuterol Sulfate (0.042%) 1.25 Mg/3 Ml Vial.Neb) 1.25 mg INHALE RQ6H PRN PRN Reason: shortness of breath Last Admin: 06/07/22 23:46 Dose: 1.25 mg Documented By: STEPHANIE Atorvastatin Calcium (Atorvastatin Calcium 10 Mg Tablet) 10 mg PO BEDTIME [facility] Last Admin: 06/10/22 21:29 Dose: 10 mg Documented By: TIN Buspirone HCl (Buspirone Hcl 5 Mg Tablet) 5 mg PO DAILY [facility] Last Admin: 06/11/22 07:47 Dose: 5 mg Documented By: SAMUEL Carvedilol (Carvedilol 12.5 Mg Tablet) 12.5 mg PO BID [facility]; Protocol Last Admin: 06/11/22 07:46 Dose: 12.5 mg Documented By: SAMUEL Dextrose (Dextrose 50 % 25 Gm/50 Ml Syringe) 25 gm IVPUSH Q15M PRN; Protocol PRN Reason: per Hypoglycemia Standing Ord. Glucose (Glucose Gel 15 Gm Gel..Gram.) 15 gm PO Q15M PRN; Protocol PRN Reason: per Hypoglycemia Standing Ord. Heparin Sodium (Porcine) (Heparin Sodium,Porcine 5,000 Unit/Ml Vial) 5,000 unit SUBCUT Q8H [facility] Last Admin: 06/11/22 05:50 Dose: 5,000 unit Documented By: TIN Promethazine HCl 12.5 mg/ (Sodium Chloride) 50.5 mls @ 202 mls/hr IV Q6H PRN PRN Reason: Nausea and Vomiting Acetaminophen (Ofirmev) 1,000 mg in 100 mls @ 400 mls/hr IV Q6H PRN PRN Reason: abdominal pain Last Infusion: 06/07/22 17:16 Dose: 0 mls/hr Documented By: NYA Azithromycin 500 mg/ Sodium (Chloride) 250 mls @ 125 mls/hr IV Q24H [facility] Last Infusion: 06/10/22 20:21 Dose: 0 mls/hr Documented By: TIN Piperacillin Sod/Tazobactam (Sod 3.375 gm/ Sodium Chloride) 50 mls @ 100 mls/hr IV Q6H [facility] Last Infusion: 06/11/22 10:51 Dose: 100 mls/hr Documented By: SAMUEL Potassium Chloride 46 meq/Sodium Chloride 70 meq/Magnesium Sulfate 10 meq/Po tassium Phosphate 24 mmol/Calcium Gluconate 9.3 meq/Multivitamins 10 ml/ Trace Metals 1 ml/ Amino Acids/Dextrose 2,040 mls @ 85 mls/hr IV DAILY@1800 [facility] Stop: 06/11/22 17:59 Last Admin: 06/10/22 18:13 Dose: 85 mls/hr Documented By: SAMUEL Potassium Chloride 46 meq/Sodium Chloride 50 meq/Magnesium Sulfate 10 meq/Potassium Phosphate 24 mmol/Calcium Gluconate 9.3 meq/Multivitamins 10 ml/ Trace Metals 1 ml/ Amino Acids/Dextrose 2,040 mls @ 85 mls/hr IV DAILY@1800 [facility] Stop: 06/12/22 17:59 Fat Emulsion Intravenous (Intralipid) 222 mls @ 37 mls/hr IV DAILY@1800 [facility] Stop: 06/11/22 23:59 Fat Emulsion Intravenous (Intralipid) 222 mls @ 37 mls/hr IV DAILY@1800 [facility] Stop: 06/12/22 05:59 Insulin Human Lispro (Insulin Lispro 100 Unit/Ml 3 Ml Vial) 0 unit SUBCUT QIDACHS [facility]; Protocol Last Admin: 06/11/22 11:38 Dose: 4 unit Documented By: SAMUEL Morphine Sulfate (Morphine Sulfate 4 Mg/Ml Cartridge) 4 mg IVPUSH Q3H PRN; Protocol PRN Reason: Pain, Severe (Pain Scale 7-10) Last Admin: 06/10/22 01:54 Dose: 4 mg Documented By: TIN Comments: RR=20 Ondansetron HCl (Ondansetron Hcl 4 Mg/2 Ml Vial) 4 mg IVPUSH Q8H PRN PRN Reason: Nausea Last Admin: 06/10/22 21:39 Dose: 4 mg Documented By: TIN Oxycodone HCl (Oxycodone Hcl Immed Release 5 Mg Tablet) 10 mg PO Q4H PRN PRN Reason: Pain, Moderate (Pain Scale 4-6 Last Admin: 06/10/22 08:48 Dose: 10 mg Documented By: SAMUEL Sertraline HCl (Sertraline Hcl 50 Mg Tablet) 150 mg PO BEDTIME [facility] Last Admin: 06/10/22 21:29 Dose: 150 mg Documented By: TIN Simethicone (Simethicone 80 Mg Tab.Chew) 80 mg PO QIDWMHS PRN PRN Reason: gassiness Last Admin: 06/07/22 10:45 Dose: 80 mg Documented By: NYA Sodium Chloride (0.9 % Sodium Chloride Flush 3 Ml Syringe) 3 ml IVFLUSH QSHIFT [facility] Last Admin: 06/11/22 07:47 Dose: 3 ml Documented By: SAMUEL Sodium Chloride (0.9 % Sodium Chloride Flush 10 Ml Syringe) 5 ml IVFLUSH TID [facility] Last Admin: 06/11/22 07:47 Dose: Not Given Documented By: SAMUEL Non-Admin Reason: IV Running Trazodone HCl (Trazodone Hcl 50 Mg Tablet) 150 mg PO BEDTIME [facility] Last Admin: 06/10/22 21:28 Dose: 150 mg Documented By: TIN Labs CBC & Chem 7: 06/10/22 05:53 06/11/22 07:38 Labs: Laboratory Results - last 24 hr 06/10/22 06/10/22 06/11/22 15:51 19:53 00:30 Anion Gap Estim Creat Clear Calc Estimated GFR POC Glucose 180 H 214 H 206 H Random Glucose Calcium Phosphorus Magnesium Albumin 06/11/22 06/11/22 06/11/22 07:13 07:38 10:48 Anion Gap 16 Estim Creat Clear Calc 91.3 Estimated GFR > 60 POC Glucose 269 H 234 H Random Glucose 297 H Calcium 8.5 D Phosphorus 3.3 Magnesium 2.3 Albumin 2.8 L Microbiology Microbiology Results: Microbiology 06/09/22 15:40 Gram Stain - Final Abdominal Fluid Routine Culture - Preliminary Anaerobic Culture - Preliminary Culture in progress. Assessment and Plan (1) Intra-abdominal abscess: Status: Acute (2) JENNIFER (acute kidney injury): Status: Acute Plan 56 yo M with a PMH of HTN, DM, KYM on CPAP, morbid obesity, migranes, de pression who is admitted under the general surgical services for resection of appendiceal adenoCa. 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 Resp acidosis, Hx of KYM PCO2 improved from 75-58 ,pH 7.3 mild shortness of breath finger oximetry 97% on 2 L of oxygen, not on home oxygen has not been using his cpap while hospitalized Monitor closely for decompensation Encourage incentive spirometry/ambulation Acute respiratory failure with hypoxia likely due to pneumonia and atelectasis no effusion noted, no CHF Trop negative EKG ST with PVC Echo ef 55-60% Continue IV Zosyn day 2 and IV azithromycin day 4/5 point supplemental O2 as needed Encourage IS/ambulate as tolerated Hypokalemia repeated in resolved JENNIFER. Creatinine normalized is status post IV fluid renal ultrasound showed no obstruction thrombocytopenia resolved DM continue insulin sliding scale PICC line placed on TPN HTN BP soft,Continue Coreg Hydrochlorothiazide, losartan on hold HLD continue statin KYM not using CPAP last night repeat ABG showed improvement in pCO2 Mood continue zoloft, buspar and trazodone smudge cells noted on CBC no lymphocytosis, or leukocytosis recommend outpatient follow up Obesity BMI 38.5 Discussed importance of weight management as this may be contributing to worsening of other comorbidities dvt ppx - heparin Patient need continued inpatient hospitalization since requiring IV TPN /iv abx for abd infection Quality Stroke Does the patient have a stroke diagnosis?: No VTE Prior VTE?: No VTE Risk Level:: Medical - moderate - high VTE Device Contraindication: N/A - Device Ordered VTE Drug Contraindication: N/A - Med Ordered
--- NOTE | 2022-06-11 14:37 | PM.EVENT ---
Event Note Date of Service: 06/14/22 Event Note: was ambulating the hallway today denies pain abd soft drain in place- thick greenish output exam benign continue TPN on sips of clear hopefully drain output decreases, otherwise may need laparotomy possible revision of anastomosis/ileostomy
[2022-06-11 16:11] LABS: Glucose, Whole Blood 174 mg/dL (60-115)
[2022-06-11] MEDS: ondansetron HCL 4 MG/2 ML VIAL IVPUSH ×2 (16:13→23:51)
[2022-06-11] MEDS: Azithromycin 500 MG in 0.9 % Sodium Chloride 250 ML 125 MG IV (18:02)
--- NOTE | 2022-06-11 18:29 | PC.NURSE ---
Patient had 800ccs from faisal drain, tubing milked throughout shift. Patient OOB ambulating with walker steady gait. Abdomen distended. MD Norton aware. Deneis shortness of breath or pain. c/o of nausea 1x this shift, medicated with zofran with good releif.
[2022-06-11 20:58] LABS: Glucose, Whole Blood 140 mg/dL (60-115)
[2022-06-11] MEDS: traZODone HCL 50 MG TABLET 150 MG PO (22:41)
[2022-06-11] MEDS: Atorvastatin Calcium 10 MG TABLET PO (22:42)
[2022-06-11] MEDS: Sertraline HCL 50 MG TABLET 150 MG PO (22:42)
[2022-06-11] MEDS: 0.9 % Sodium Chloride Flush 10 ML SYRINGE 5 ML IVFLUSH (22:44)
[2022-06-12] VITALS: BP 119/63; PULSE 72; RESP 17; TEMP 36.6; O2SAT 95
[2022-06-12] MEDS: Piperacillin Sodium/Tazobactam 3.375 GM in 0.9 % Sodium Chloride 50 ML IV ×4 (03:54→21:36)
[2022-06-12 04:00] VITALS: BP 96/54; PULSE 87; RESP 17; TEMP 37; O2SAT 94
[2022-06-12] MEDS: Heparin Sodium,Porcine 5,000 UNIT/ML VIAL 5000 UNIT SUBCUT ×3 (05:46→21:37)
[2022-06-12 06:37] LABS: Anion Gap 18 (12-20); Blood Urea Nitrogen 24 mg/dL (9-16); Carbon Dioxide 22 mmol/L (22-29); Chloride 109 mmol/L (96-108); Creatinine Clr Calc Pharmacy 102.6; Estimated Glomerular Filt Rate > 60; Glucose Random 303 mg/dL (60-115); Potassium 4.9 mmol/L (3.3-5.1); Sodium 144 mmol/L (135-145)
[2022-06-12 07:12] LABS: Glucose, Whole Blood 270 mg/dL (60-115)
[2022-06-12 07:39] VITALS: BP 115/67; PULSE 82; RESP 17; TEMP 37.6; O2SAT 94
[2022-06-12] MEDS: 0.9 % Sodium Chloride Flush 10 ML SYRINGE 5 ML IVFLUSH ×3 (07:54→21:52)
[2022-06-12] MEDS: busPIRone HCl 5 MG TABLET PO (07:55)
[2022-06-12] MEDS: Insulin Lispro 100 UNIT/ML 3 ML VIAL SUBCUT ×4 (07:55→21:37)
[2022-06-12] MEDS: carvediloL 12.5 MG TABLET PO ×2 (07:55→21:35)
--- NOTE | 2022-06-12 08:20 | PM.PNNEP ---
Subjective Subjective Date of Service: 06/12/22 Interval history: Overall feeling better complaining of abdominal discomfort, no nausea, no fever, no chills, no other acute issues overnight, passing flatus. Complaining of mild Shortness of breath and cough. Physical Exam Vital Signs: Vital Signs: Last Vital Signs Temp 99.7 F 06/12/22 07:39 Pulse 82 06/12/22 07:39 Resp 17 06/12/22 07:39 BP 115/67 06/12/22 07:39 Pulse Ox 94 06/12/22 07:39 O2 Del Method 06/12/22 07:39 O2 Flow Rate 2 06/12/22 07:39 Oxygen Flow Rate 2 06/11/22 20:00 BMI result Body Mass Index 38.4 Const: Other: General awake alert,in no acute distress.? Neck supple no JVD. CVS? regular rate rhythm, Respiratory lungs clear to auscultation, diminished at bases, no respiratory distress, no wheeze, no rhonchi. Gastrointestinal abdomen distended, mild discomfort with palpation, bowel sounds audible, no guarding , no rigidity, clean incision, right-sided drain in place, green pasty discharge Extremities no edema. Neuro nonfocal patient moving all 4 extremity speech clear. Skin no rash Psych appropriate affect General: cooperative, comfortable, no acute distress, alert, awake and tired appearing Nutritional Appearance: obese Orientation/consciousness: patient oriented x3 Limitations: no limitations and No language barrier Eyes: General: appearance normal, both eyes and all related structures Pupils: Equal, round and reactive pupils present EOM: EOMs intact bilaterally Neck: Neck: Yes supple Resp: Other: gets SOB with exertion Effort & Inspection: normal respiratory effort and able to speak in complete sentences Auscultation: clear to auscultation bilaterally, crackles and diminished lung sounds Cardio: Rate: regular rate and tachycardic Rhythm: regular rhythm Heart sounds: S1 normal heart sound present and S2 normal heart sound present GI: Other: protuberant, soft benign, drain in place- thick greenish Inspection: Yes distended and Yes incision (clean) Palpation (GI): Soft to palpation, Tenderness to palpation present (GI) (mild right sided, drain site) with no rebound tenderness, no guarding and not rigid Percussion: Yes tympanic to percussion Skin: Other: diaphoretic General skin exam: no rashes or lesions noted Lesions: no lesions Neuro: General: patient oriented x3, moves all extremities and CN's II-XI intact bilaterally Cranial nerves: Yes Equal, round and reactive pupils present Cognition (Neuro): normal cognition Extrem: General: Yes normal to inspection, Yes no clubbing, cyanosis or edema and Yes no pedal edema Objective Data Labs CBC & Chem 7: 06/10/22 05:53 06/12/22 05:37 Labs: Laboratory Results - last 24 hr 06/11/22 06/11/22 06/11/22 07:38 10:48 16:07 Sodium 146 H Potassium 4.0 Chloride 104 Carbon Dioxide 30 H Anion Gap 16 BUN 32 H Creatinine 1.18 Estim Creat Clear Calc 91.3 Estimated GFR > 60 POC Glucose 234 H 174 H Random Glucose 297 H Calcium 8.5 D Phosphorus 3.3 Magnesium 2.3 Albumin 2.8 L 06/11/22 06/12/22 06/12/22 20:08 05:37 07:08 Sodium 144 Potassium 4.9 D Chloride 109 H Carbon Dioxide 22 Anion Gap 18 BUN 24 H Creatinine 1.05 Estim Creat Clear Calc 102.6 Estimated GFR > 60 POC Glucose 140 H 270 H Random Glucose 303 H Calcium 8.0 L Phosphorus Magnesium Albumin Microbiology Microbiology Results: Microbiology 06/09/22 15:40 Abdominal Fluid Gram Stain - Final 06/09/22 15:40 Abdominal Fluid Routine Culture - Preliminary 06/09/22 15:40 Abdominal Fluid Anaerobic Culture - Preliminary Culture in progress. Procedures Date of Service Date of Service: 06/12/22 Assessment & Plan Assessment and plan (1) Intra-abdominal abscess: Status: Acute (2) JENNIFER (acute kidney injury): Status: Acute Plan 56 yo M with a PMH of HTN, DM, KYM on CPAP, morbid obesity, migranes, depression who is admitted under the general surgical services for resection of appendiceal adenoCa. 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
[2022-06-12 08:22] LABS: Albumin Level 2.5 g/dL (3.5-5.0); Magnesium 2.1 mg/dL (1.6-2.6)
[2022-06-12 08:56] LABS: Hematocrit 28.3 % (42.0-52.0); Hemoglobin 8.5 g/dl (14.0-18.0); Mean Corpuscular Hemoglobin 27.8 pg (27.0-33.0); Mean Corpuscular Volume 92.5 fL (80.0-98.0); Mean Platelet Volume 11.2 fL (9.4-12.4); NRBC Pct Auto 0.8 /100WBC (0.0-0.2); Platelet Count 173 X10*3/uL (160-400); Red Blood Count 3.06 X10*6/uL (4.60-5.80); Red Cell Distribution Width 14.8 % (11.0-16.0); White Blood Count 8.5 X10*3/uL (4.8-10.8)
--- NOTE | 2022-06-12 10:42 | HO.PM.IMPN ---
Subjective Subjective Date of Service: 06/12/22 Interval History: Complaining of heartburn and acidity is allowed ice chips only, no bowel movement passing flatus, none denies shortness of breath at rest, no chest pain, no palpitation, no other acute issues overnight and daughter at bedside concerned about persistent abdominal distension. Review of Systems Review of Systems: Yes all other systems are reviewed and are negative Physical Exam Vital Signs: Vital Signs: Last Vital Signs Temp 99.7 F 06/12/22 07:39 Pulse 82 06/12/22 07:39 Resp 17 06/12/22 07:39 BP 115/67 06/12/22 07:39 Pulse Ox 94 06/12/22 07:39 O2 Del Method 06/12/22 07:39 O2 Flow Rate 2 06/12/22 07:39 Oxygen Flow Rate 2 06/11/22 20:00 BMI result Body Mass Index 38.4 Const: Other: General awake alert,in no acute distress.? Neck supple no JVD. CVS? regular rate rhythm, Respiratory lungs clear to auscultation, diminished at bases, no respiratory distress, no wheeze, no rhonchi. Gastrointestinal abdomen distended, bowel sounds audible, no guarding , no rigidity, clean incision, right-sided drain in place, with minimal green pasty discharge Extremities no edema. Neuro nonfocal patient moving all 4 extremity speech clear. Skin no rash Psych appropriate affect Objective Data Active Medications Albuterol Sulfate (Albuterol Sulfate (0.042%) 1.25 Mg/3 Ml Vial.Neb) 1.25 mg INHALE RQ6H PRN PRN Reason: shortness of breath Last Admin: 06/07/22 23:46 Dose: 1.25 mg Documented By: STEPHANIE Atorvastatin Calcium (Atorvastatin Calcium 10 Mg Tablet) 10 mg PO BEDTIME [facility] Last Admin: 06/11/22 22:42 Dose: 10 mg Documented By: SUMEET Buspirone HCl (Buspirone Hcl 5 Mg Tablet) 5 mg PO DAILY [facility] Last Admin: 06/12/22 07:55 Dose: 5 mg Documented By: AYLIN Carvedilol (Carvedilol 12.5 Mg Tablet) 12.5 mg PO BID [facility]; Protocol Last Admin: 06/12/22 07:55 Dose: 12.5 mg Documented By: AYLIN Dextrose (Dextrose 50 % 25 Gm/50 Ml Syringe) 25 gm IVPUSH Q15M PRN; Protocol PRN Reason: per Hypoglycemia Standing Ord. Glucose (Glucose Gel 15 Gm Gel..Gram.) 15 gm PO Q15M PRN; Protocol PRN Reason: per Hypoglycemia Standing Ord. Heparin Sodium (Porcine) (Heparin Sodium,Porcine 5,000 Unit/Ml Vial) 5,000 unit SUBCUT Q8H [facility] Last Admin: 06/12/22 05:46 Dose: 5,000 unit Documented By: SUMEET Promethazine HCl 12.5 mg/ (Sodium Chloride) 50.5 mls @ 202 mls/hr IV Q6H PRN PRN Reason: Nausea and Vomiting Acetaminophen (Ofirmev) 1,000 mg in 100 mls @ 400 mls/hr IV Q6H PRN PRN Reason: abdominal pain Last Infusion: 06/07/22 17:16 Dose: 0 mls/hr Documented By: NYA Azithromycin 500 mg/ Sodium (Chloride) 250 mls @ 125 mls/hr IV Q24H [facility] Last Infusion: 06/11/22 20:29 Dose: 0 mls/hr Documented By: SUMEET Piperacillin Sod/Tazobactam (Sod 3.375 gm/ Sodium Chloride) 50 mls @ 100 mls/hr IV Q6H [facility] Last Admin: 06/12/22 09:53 Dose: 100 mls/hr Documented By: AYLIN Potassium Chloride 46 meq/Sodium Chloride 50 meq/Magnesium Sulfate 10 meq/Potassium Phosphate 24 mmol/Calcium Gluconate 9.3 meq/Multivitamins 10 ml/ Trace Metals 1 ml/ Amino Acids/Dextrose 2,040 mls @ 85 mls/hr IV DAILY@1800 [facility] Stop: 06/12/22 17:59 Last Admin: 06/11/22 18:11 Dose: 85 mls/hr Documented By: SAMUEL Potassium Chloride 46 meq/Sodium Chloride 50 meq/Magnesium Sulfate 10 meq/Potassium Phosphate 24 mmol/Calcium Gluconate 9.3 meq/Multivitamins 10 ml/ Trace Metals 1 ml/ Amino Acids/Dextrose 2,000 mls @ 85 mls/hr IV DAILY@1800 [facility] Stop: 06/13/22 17:32 Fat Emulsion Intravenous (Intralipid) 222 mls @ 37 mls/hr IV DAILY@1800 [facility] Stop: 06/12/22 23:59 Fat Emulsion Intravenous (Intralipid) 222 mls @ 37 mls/hr IV DAILY@1800 [facility] Stop: 06/12/22 05:59 Insulin Human Lispro (Insulin Lispro 100 Unit/Ml 3 Ml Vial) 0 unit SUBCUT QIDACHS [facility]; Protocol Last Admin: 06/12/22 07:55 Dose: 6 unit Documented By: AYLIN Morphine Sulfate (Morphine Sulfate 4 Mg/Ml Cartridge) 4 mg IVPUSH Q3H PRN; Protocol PRN Reason: Pain, Severe (Pain Scale 7-10) Last Admin: 06/10/22 01:54 Dose: 4 mg Documented By: TIN Comments: RR=20 Ondansetron HCl (Ondansetron Hcl 4 Mg/2 Ml Vial) 4 mg IVPUSH Q8H PRN PRN Reason: Nausea Last Admin: 06/11/22 23:51 Dose: 4 mg Documented By: SUMEET Oxycodone HCl (Oxycodone Hcl Immed Release 5 Mg Tablet) 10 mg PO Q4H PRN PRN Reason: Pain, Moderate (Pain Scale 4-6 Last Admin: 06/10/22 08:48 Dose: 10 mg Documented By: SAMUEL Sertraline HCl (Sertraline Hcl 50 Mg Tablet) 150 mg PO BEDTIME [facility] Last Admin: 06/11/22 22:42 Dose: 150 mg Documented By: SUMEET Simethicone (Simethicone 80 Mg Tab.Chew) 80 mg PO QIDWMHS PRN PRN Reason: gassiness Last Admin: 06/07/22 10:45 Dose: 80 mg Documented By: NYA Sodium Chloride (0.9 % Sodium Chloride Flush 3 Ml Syringe) 3 ml IVFLUSH QSHIFT [facility] Last Admin: 06/11/22 22:44 Dose: 3 ml Documented By: SUMEET Sodium Chloride (0.9 % Sodium Chloride Flush 10 Ml Syringe) 5 ml IVFLUSH TID [facility] Last Admin: 06/12/22 07:54 Dose: 5 ml Documented By: AYLIN Trazodone HCl (Trazodone Hcl 50 Mg Tablet) 150 mg PO BEDTIME [facility] Last Admin: 06/11/22 22:41 Dose: 150 mg Documented By: SUMEET Labs CBC & Chem 7: 06/12/22 07:52 06/12/22 05:37 Labs: Laboratory Results - last 24 hr 06/11/22 06/11/22 06/11/22 10:48 16:07 20:08 MCV MCH MCHC RDW Plt Count MPV Absolute Nucleated RBC Nucleated RBC % (auto) Anion Gap Estim Creat Clear Calc Estimated GFR POC Glucose 234 H 174 H 140 H Random Glucose Calcium Phosphorus Magnesium Albumin 06/12/22 06/12/22 06/12/22 05:37 07:08 07:52 MCV 92.5 MCH 27.8 MCHC 30.0 L RDW 14.8 Plt Count 173 MPV 11.2 Absolute Nucleated RBC 0.070 H Nucleated RBC % (auto) 0.8 H Anion Gap 18 Estim Creat Clear Calc 102.6 Estimated GFR > 60 POC Glucose 270 H Random Glucose 303 H Calcium 8.0 L Phosphorus 4.0 Magnesium 2.1 Albumin 2.5 L Microbiology Microbiology Results: Microbiology 06/09/22 15:40 Gram Stain - Final Abdominal Fluid Routine Culture - Preliminary Anaerobic Culture - Preliminary Culture in progress. Assessment and Plan (1) Intra-abdominal abscess: Status: Acute (2) JENNIFER (acute kidney injury): Status: Acute Plan 56 yo M with a PMH of HTN, DM, KYM on CPAP, morbid obesity, migranes, depression who is admitted under the general surgical services for resection of appendiceal adenoCa. Medical consulted for management of DM and HTN Appendiceal adenoCa - s/p R colon resection course complicated by post op ileus and fluid collection on right-sided status post IR drainage of right-sided fluid collection purulent/fecal material removed, question fistulous connection to abscess Taking ice chips Status post PICC line on IV TPN Fluid culture growing Clostridium septicum/H parainfluenza sensitive to penicillin on IV Zosyn day 4 leukocytosis resolved , mild abdominal pain right sided, no fever follow clinical course closely being managed by General surgery imaging studies next week oncology evaluation once surgical issues resolved. Mild gastritis c/o heart burn, since NPO will place on IV Pepcid Resp acidosis, Hx of KYM PCO2 improved from 75-58 ,pH 7.3 mild shortness of breath finger oximetry 97% on 2 L of oxygen, not on home oxygen has not been using his cpap while hospitalized Monitor closely for decompensation Encourage incentive spirometry/ambulation Acute respiratory failure with hypoxia likely due to pneumonia and atelectasis no effusion noted, no CHF Trop negative EKG ST with PVC Echo ef 55-60% Continue IV Zosyn day 3 and IV azithromycin day 5/5 supplemental O2 as needed Encourage IS/ambulate as tolerated Hypokalemia resolved JENNIFER. Creatinine normalized is status post IV fluid renal ultrasound showed no obstruction thrombocytopenia resolved DM continue insulin sliding scale PICC line placed on TPN HTN BP soft,Continue Coreg Hydrochlorothiazide, losartan on hold HLD continue statin KYM not using CPAP last night repeat ABG showed improvement in pCO2 Mood continue zoloft, buspar and trazodone smudge cells noted on CBC no lymphocytosis, or leukocytosis recommend outpatient follow up Obesity BMI 38.5 Discussed importance of weight management as this may be contributing to worsening of other comorbidities dvt ppx - heparin Patient need continued inpatient hospitalization since requiring IV TPN /iv abx for abd infection Quality Stroke Does the patient have a stroke diagnosis?: No VTE Prior VTE?: No VTE Risk Level:: Medical - moderate - high VTE Device Contraindication: N/A - Device Ordered VTE Drug Contraindication: N/A - Med Ordered
[2022-06-12 11:04] LABS: Glucose, Whole Blood 229 mg/dL (60-115)
[2022-06-12] MEDS: Famotidine/PF 20 MG/2 ML VIAL IVPUSH ×2 (11:27→21:36)
--- NOTE | 2022-06-12 11:55 | P.PNGS_ITS ---
Subjective Subjective Date of Service: 06/13/22 Interval history: pt thinks the drain isnt draining as much but nurse says 200 cc for the morning. no nausea no bowel movement little gas, feels abdomen is still very distended Physical Exam Vital Signs: Vital Signs: Last Vital Signs Temp 99.7 F 06/12/22 07:39 Pulse 82 06/12/22 07:39 Resp 17 06/12/22 07:39 BP 115/67 06/12/22 07:39 Pulse Ox 94 06/12/22 07:39 O2 Del Method 06/12/22 07:39 O2 Flow Rate 2 06/12/22 07:39 Oxygen Flow Rate 2 06/11/22 20:00 BMI result Body Mass Index 38.4 Const: General: cooperative, acute distress mild and tired appearing Orientation/consciousness: oriented to person, oriented to place and oriented to time HEENT: Head: Yes normal to inspection Eyes: General: appearance normal, both eyes and all related structures Resp: Effort & Inspection: normal respiratory effort and able to speak in complete sentences Auscultation: clear to auscultation bilaterally and diminished lung sounds (at bases) Cardio: Rate: regular rate Rhythm: regular rhythm GI: Other: abdomen soft but distended and round nont tender hypo bowel sounds incision well healed drain right now empty Skin: General skin exam: no rashes or lesions noted Neuro: General: oriented to person, oriented to place and oriented to time Extrem: General: Yes normal to inspection Psych: Appearance: grossly normal Attitude: cooperative Objective Data Active Medications Albuterol Sulfate (Albuterol Sulfate (0.042%) 1.25 Mg/3 Ml Vial.Neb) 1.25 mg INHALE RQ6H PRN PRN Reason: shortness of breath Last Admin: 06/07/22 23:46 Dose: 1.25 mg Documented By: STEPHANIE Atorvastatin Calcium (Atorvastatin Calcium 10 Mg Tablet) 10 mg PO BEDTIME REPLACED BY [facility] Last Admin: 06/11/22 22:42 Dose: 10 mg Documented By: SUMEET Buspirone HCl (Buspirone Hcl 5 Mg Tablet) 5 mg PO DAILY REPLACED BY [facility] Last Admin: 06/12/22 07:55 Dose: 5 mg Documented By: AYLIN Carvedilol (Carvedilol 12.5 Mg Tablet) 12.5 mg PO BID REPLACED BY [facility]; Protocol Last Admin: 06/12/22 07:55 Dose: 12.5 mg Documented By: AYLIN Dextrose (Dextrose 50 % 25 Gm/50 Ml Syringe) 25 gm IVPUSH Q15M PRN; Protocol PRN Reason: per Hypoglycemia Standing Ord. Famotidine (Famotidine/Pf 20 Mg/2 Ml Vial) 20 mg IVPUSH BID REPLACED BY [facility] Last Admin: 06/12/22 11:27 Dose: 20 mg Documented By: AYLIN Glucose (Glucose Gel 15 Gm Gel..Gram.) 15 gm PO Q15M PRN; Protocol PRN Reason: per Hypoglycemia Standing Ord. Heparin Sodium (Porcine) (Heparin Sodium,Porcine 5,000 Unit/Ml Vial) 5,000 unit SUBCUT Q8H REPLACED BY [facility] Last Admin: 06/12/22 05:46 Dose: 5,000 unit Documented By: SUMEET Promethazine HCl 12.5 mg/ (Sodium Chloride) 50.5 mls @ 202 mls/hr IV Q6H PRN PRN Reason: Nausea and Vomiting Acetaminophen (Ofirmev) 1,000 mg in 100 mls @ 400 mls/hr IV Q6H PRN PRN Reason: abdominal pain Last Infusion: 06/07/22 17:16 Dose: 0 mls/hr Documented By: NYA Azithromycin 500 mg/ Sodium (Chloride) 250 mls @ 125 mls/hr IV Q24H REPLACED BY [facility] Last Infusion: 06/11/22 20:29 Dose: 0 mls/hr Documented By: SUMEET Piperacillin Sod/Tazobactam (Sod 3.375 gm/ Sodium Chloride) 50 mls @ 100 mls/hr IV Q6H REPLACED BY [facility] Last Infusion: 06/12/22 11:05 Dose: 0 mls/hr Documented By: AYLIN Potassium Chloride 46 meq/Sodium Chloride 50 meq/Magnesium Sulfate 10 meq/ Potassium Phosphate 24 mmol/Calcium Gluconate 9.3 meq/Multivitamins 10 ml/ Trace Metals 1 ml/ Amino Acids/Dextrose 2,040 mls @ 85 mls/hr IV DAILY@1800 REPLACED BY [facility] Stop: 06/12/22 17:59 Last Admin: 06/11/22 18:11 Dose: 85 mls/hr Documented By: SAMUEL Potassium Chloride 46 meq/Sodium Chloride 50 meq/Magnesium Sulfate 10 meq/Potassium Phosphate 24 mmol/Calcium Gluconate 9.3 meq/Multivitamins 10 ml/ T race Metals 1 ml/ Amino Acids/Dextrose 2,077 mls @ 85 mls/hr IV DAILY@1800 REPLACED BY [facility] Stop: 06/13/22 17:59 Fat Emulsion Intravenous (Intralipid) 222 mls @ 37 mls/hr IV DAILY@1800 REPLACED BY [facility] Stop: 06/12/22 23:59 Fat Emulsion Intravenous (Intralipid) 222 mls @ 37 mls/hr IV DAILY@1800 REPLACED BY [facility] Stop: 06/13/22 23:59 Insulin Human Lispro (Insulin Lispro 100 Unit/Ml 3 Ml Vial) 0 unit SUBCUT QIDACHS REPLACED BY [facility]; Protocol Last Admin: 06/12/22 11:27 Dose: 4 unit Documented By: AYLIN Morphine Sulfate (Morphine Sulfate 4 Mg/Ml Cartridge) 4 mg IVPUSH Q3H PRN; Protocol PRN Reason: Pain, Severe (Pain Scale 7-10) Last Admin: 06/10/22 01:54 Dose: 4 mg Documented By: TIN Comments: RR=20 Ondansetron HCl (Ondansetron Hcl 4 Mg/2 Ml Vial) 4 mg IVPUSH Q8H PRN PRN Reason: Nausea Last Admin: 06/11/22 23:51 Dose: 4 mg Documented By: SUMEET Oxycodone HCl (Oxycodone Hcl Immed Release 5 Mg Tablet) 10 mg PO Q4H PRN PRN Reason: Pain, Moderate (Pain Scale 4-6 Last Admin: 06/10/22 08:48 Dose: 10 mg Documented By: SAMUEL Sertraline HCl (Sertraline Hcl 50 Mg Tablet) 150 mg PO BEDTIME REPLACED BY [facility] Last Admin: 06/11/22 22:42 Dose: 150 mg Documented By: SUMEET Simethicone (Simethicone 80 Mg Tab.Chew) 80 mg PO QIDWMHS PRN PRN Reason: gassiness Last Admin: 06/07/22 10:45 Dose: 80 mg Documented By: NYA Sodium Chloride (0.9 % Sodium Chloride Flush 3 Ml Syringe) [facility] Last Admin: 06/11/22 22:44 Dose: 3 ml Documented By: SUMEET Sodium Chloride (0.9 % Sodium Chloride Flush 10 Ml Syringe) 5 ml IVFLUSH TID REPLACED BY [facility] Last Admin: 06/12/22 07:54 Dose: 5 ml Documented By: AYLIN Trazodone HCl (Trazodone Hcl 50 Mg Tablet) 150 mg PO BEDTIME REPLACED BY [facility] Last Admin: 06/11/22 22:41 Dose: 150 mg Documented By: SUMEET Labs CBC & Chem 7: 06/12/22 07:52 06/13/22 08:49 Labs: Laboratory Results - last 24 hr 06/11/22 06/11/22 06/12/22 16:07 20:08 05:37 MCV MCH MCHC RDW Plt Count MPV Absolute Nucleated RBC Nucleated RBC % (auto) Anion Gap 18 Estim Creat Clear Calc 102.6 Estimated GFR > 60 POC Glucose 174 H 140 H Random Glucose 303 H Calcium 8.0 L Phosphorus 4.0 Magnesium 2.1 Albumin 2.5 L 06/12/22 06/12/22 06/12/22 07:08 07:52 11:00 MCV 92.5 MCH 27.8 MCHC 30.0 L RDW 14.8 Plt Count 173 MPV 11.2 Absolute Nucleated RBC 0.070 H Nucleated RBC % (auto) 0.8 H Anion Gap Estim Creat Clear Calc Estimated GFR POC Glucose 270 H 229 H Random Glucose Calcium Phosphorus Magnesium Albumin Microbiology Microbiology Results: Microbiology 06/09/22 15:40 Gram Stain - Final Abdominal Fluid Routine Culture - Final Anaerobic Culture - Preliminary Culture in progress. Procedures Date of Service Date of Service: 06/13/22 Progress Note: A&P Assessment and plan (1) Intra-abdominal abscess: Status: Acute (2) S/P right colectomy: Status: Acute Plan 56 year old male s/p right colectomy but now with intarabdo drainage -? small bowel fistula - controlled- afebrile, not septic, on TPN, other issues with DM and HTn followed by the med team. not much change clinically doing ok cont npo with some sips and TPN- renewed cont with iv antibx cont with drainage bag pt to ambulate and IS med team to follow for med issues Time Spent With Patient Time: Total time spent is greater than 50% in coordination of care (as documented) at patient's floor/unit and/or counseling patient: Quality Stroke Does the patient have a stroke diagnosis?: No VTE Prior VTE?: No VTE Risk Level:: Medical - moderate - high VTE Device Contraindication: N/A - Device Ordered VTE Drug Contraindication: N/A - Med Ordered
[2022-06-12 15:17] VITALS: BP 107/59; PULSE 75; RESP 16; TEMP 36.4; O2SAT 97
[2022-06-12 16:30] LABS: Glucose, Whole Blood 181 mg/dL (60-115)
[2022-06-12] MEDS: Azithromycin 500 MG in 0.9 % Sodium Chloride 250 ML 125 MG IV (18:06)
[2022-06-12] MEDS: Fat Emulsions 20% 250 ML 37 ML IV (18:25)
[2022-06-12 19:15] VITALS: BP 116/65; PULSE 85; RESP 16; TEMP 36.8; O2SAT 95
[2022-06-12 19:38] LABS: Glucose, Whole Blood 195 mg/dL (60-115)
[2022-06-12] MEDS: Atorvastatin Calcium 10 MG TABLET PO (21:35)
[2022-06-12] MEDS: traZODone HCL 50 MG TABLET 150 MG PO (21:36)
[2022-06-12] MEDS: Sertraline HCL 50 MG TABLET 150 MG PO (21:36)
[2022-06-12] MEDS: Simethicone 80 MG TAB.CHEW PO (22:18)
[2022-06-12] MEDS: 0.9 % Sodium Chloride Flush 3 ML SYRINGE IVFLUSH (22:19)
[2022-06-12 23:25] VITALS: BP 114/65; PULSE 76; RESP 18; TEMP 36.7; O2SAT 97
[2022-06-13] VITALS (7 sets, daily range): BP systolic 101–140; BP diastolic 52–69; PULSE 78–89; RESP 16–18; TEMP 36.3–36.8; O2SAT 95–97
[2022-06-13] MEDS: Fat Emulsions 20% 250 ML 37 ML IV ×2 (00:21→18:21)
[2022-06-13] MEDS: Morphine Sulfate 4 MG/ML CARTRIDGE IVPUSH ×2 (01:18→13:42)
[2022-06-13] MEDS: Piperacillin Sodium/Tazobactam 3.375 GM in 0.9 % Sodium Chloride 50 ML IV ×4 (05:00→21:59)
[2022-06-13] MEDS: oxyCODONE HCl Immed Release 5 MG TABLET 10 MG PO ×2 (05:07→15:48)
[2022-06-13] MEDS: Heparin Sodium,Porcine 5,000 UNIT/ML VIAL 5000 UNIT SUBCUT ×3 (05:08→22:00)
[2022-06-13 08:06] LABS: Glucose, Whole Blood 279 mg/dL (60-115)
[2022-06-13] MEDS: Insulin Lispro 100 UNIT/ML 3 ML VIAL SUBCUT ×4 (08:20→20:43)
[2022-06-13] MEDS: carvediloL 12.5 MG TABLET PO ×2 (08:21→20:41)
[2022-06-13] MEDS: busPIRone HCl 5 MG TABLET PO (08:21)
[2022-06-13] MEDS: Famotidine/PF 20 MG/2 ML VIAL IVPUSH ×2 (08:21→20:43)
[2022-06-13 09:20] LABS: Albumin Level 2.6 g/dL (3.5-5.0); Anion Gap 12 (12-20); Blood Urea Nitrogen 17 mg/dL (9-16); Calcium 8.1 mg/dL (8.4-10.2); Carbon Dioxide 29 mmol/L (22-29); Chloride 109 mmol/L (96-108); Creatinine Clr Calc Pharmacy 103.6; Estimated Glomerular Filt Rate > 60; Glucose Random 327 mg/dL (60-115); Phosphorus 3.2 mg/dL (2.7-4.5); Potassium 4.4 mmol/L (3.3-5.1); Sodium 146 mmol/L (135-145)
--- NOTE | 2022-06-13 10:26 | HO.PM.IMPN ---
Subjective Subjective Date of Service: 06/13/22 Interval History: Patient sitting comfortably on chair denies epigastric pain no heartburn, no acidity, right-sided abdominal drain with green liquidy fecal material, denies fever chills offers no other acute complaints. Review of Systems [employer] no headache no dizziness CVS no chest pain, no palpitation Review of Systems: Yes all other systems are reviewed and are negative Physical Exam Vital Signs: Vital Signs: Last Vital Signs Temp 98.3 F 06/13/22 08:00 Pulse 80 06/13/22 08:00 Resp 18 06/13/22 08:00 BP 124/69 06/13/22 08:00 Pulse Ox 95 06/13/22 08:00 O2 Del Method 06/13/22 08:00 O2 Flow Rate 2.0 06/13/22 08:00 Oxygen Flow Rate 2 06/13/22 03:34 BMI result Body Mass Index 38.4 Const: Other: General awake aler t,in no acute dist ress.? Neck supple no JVD. CVS? regu lar rate rhythm, R espiratory lungs c lear to auscultati on, diminished at bases, no respirat ory distress, no w heeze, no rhonchi. Gastrointestinal abdomen distended, bowel sounds randolph ble, no guarding , no rigidity, marcial n incision, right- sided drain in liang ce, with green lik katarina fecal discharg e Extremities no e hilda. Neuro nonfoc al patient moving all 4 extremity sp eech clear. Skin n o rash Psych appro priate affect Objective Data Active Medications Albuterol Sulfate (Albuterol Sulfate (0.042%) 1.25 Mg/3 Ml Vial.Neb) 1.25 mg INHALE RQ6H PRN PRN Reason: shortness of breath Last Admin: 06/07/22 23:46 Dose: 1.25 mg Documented By: STEPHANIE Atorvastatin Calcium (Atorvastatin Calcium 10 Mg Tablet) 10 mg PO BEDTIME [facility] [place] Last Admin: 06/12/22 21:35 Dose: 10 mg Documented By: HALEY Buspirone HCl (Buspirone Hcl 5 Mg Tablet) 5 mg PO DAILY [facility] [place] Last Admin: 06/13/22 08:21 Dose: 5 mg Documented By: JAGRUTI Carvedilol (Carvedilol 12.5 Mg Tablet) 12.5 mg PO BID [facility] [place]; Protocol Last Admin: 06/13/22 08:21 Dose: 12.5 mg Documented By: JAGRUTI Dextrose (Dextrose 50 % 25 Gm/50 Ml Syringe) 25 gm IVPUSH Q15M PRN; Protocol PRN Reason: per Hypoglycemia Standing Ord. Famotidine (Famotidine/Pf 20 Mg/2 Ml Vial) 20 mg IVPUSH BID [facility] [place] Last Admin: 06/13/22 08:21 Dose: 20 mg Documented By: JAGRUTI Glucose (Glucose Gel 15 Gm Gel..Gram.) 15 gm PO Q15M PRN; Protocol PRN Reason: per Hypoglycemia Standing Ord. Heparin Sodium (Porcine) (Heparin Sodium,Porcine 5,000 Unit/Ml Vial) 5,000 unit SUBCUT Q8H [facility] [place] Last Admin: 06/13/22 05:08 Dose: 5,000 unit Documented By: SUMEET Promethazine HCl 12.5 mg/ (Sodium Chloride) 50.5 mls @ 202 mls/hr IV Q6H PRN PRN Reason: Nausea and Vomiting Acetaminophen (Ofirmev) 1,000 mg in 100 mls @ 400 mls/hr IV Q6H PRN PRN Reason: abdominal pain Last Infusion: 06/07/22 17:16 Dose: 0 mls/hr Documented By: NYA Azithromycin 500 mg/ Sodium (Chloride) 250 mls @ 125 mls/hr IV Q24H [facility] [place] Last Infusion: 06/12/22 20:10 Dose: 0 mls/hr Documented By: SUMEET Piperacillin Sod/Tazobactam (Sod 3.375 gm/ Sodium Chloride) 50 mls @ 100 mls/hr IV Q6H [facility] [place] Last Infusion: 06/13/22 05:40 Dose: 0 mls/hr Documented By: SUMEET Potassium Chloride 46 meq/Sodium Chloride 50 meq/Magnesium Sulfate 10 meq/Potassium Phosphate 24 mmol/Calcium Gluconate 9.3 meq/Multivitamins 10 ml/ Trace Metals 1 ml/ Amino Acids/Dextrose 2,077 mls @ 85 mls/hr IV DAILY@1800 TEENA Stop: 06/13/22 17:59 Last Admin: 06/12/22 18:25 Dose: 85 mls/hr Documented By: AYLIN Fat Emulsion Intravenous (Intralipid) 222 mls @ 37 mls/hr IV DAILY@1800 [facility] [place] Stop: 06/13/22 23:59 Last Infusion: 06/13/22 06:26 Dose: 0 mls/hr Documented By: SUMEET Insulin Human Lispro (Insulin Lispro 100 Unit/Ml 3 Ml Vial) 0 unit SUBCUT QIDACHS [facility] [place]; Protocol Last Admin: 06/13/22 08:20 Dose: 6 unit Documented By: JAGRUTI Morphine Sulfate (Morphine Sulfate 4 Mg/Ml Cartridge) 4 mg IVPUSH Q3H PRN; Protocol PRN Reason: Pain, Severe (Pain Scale 7-10) Last Admin: 06/13/22 01:18 Dose: 4 mg Documented By: SUMEET Ondansetron HCl (Ondansetron Hcl 4 Mg/2 Ml Vial) 4 mg IVPUSH Q8H PRN PRN Reason: Nausea Last Admin: 06/11/22 23:51 Dose: 4 mg Documented By: SUMEET Oxycodone HCl (Oxycodone Hcl Immed Release 5 Mg Tablet) 10 mg PO Q4H PRN PRN Reason: Pain, Moderate (Pain Scale 4-6 Last Admin: 06/13/22 05:07 Dose: 10 mg Documented By: SUMEET Sertraline HCl (Sertraline Hcl 50 Mg Tablet) 150 mg PO BEDTIME [facility] [place] Last Admin: 06/12/22 21:36 Dose: 150 mg Documented By: HALEY Simethicone (Simethicone 80 Mg Tab.Chew) 80 mg PO QIDWMHS PRN PRN Reason: gassiness Last Admin: 06/12/22 22:18 Dose: 80 mg Documented By: SUMEET Sodium Chloride (0.9 % Sodium Chloride Flush 3 Ml Syringe) 3 ml IVFLUSH QSHIFT [facility] [place] Last Admin: 06/12/22 22:19 Dose: 3 ml Documented By: SUMEET Sodium Chloride (0.9 % Sodium Chloride Flush 10 Ml Syringe) 5 ml IVFLUSH TID [facility] [place] Last Admin: 06/13/22 09:54 Dose: Not Given Documented By: JAGRUTI Non-Admin Reason: IV Running Trazodone HCl (Trazodone Hcl 50 Mg Tablet) 150 mg PO BEDTIME [facility] [place] Last Admin: 06/12/22 21:36 Dose: 150 mg Documented By: HALEY Labs CBC & Chem 7: 06/12/22 07:52 06/13/22 08:49 Labs: Laboratory Results - last 24 hr 06/12/22 06/12/22 06/12/22 11:00 15:23 19:20 Anion Gap Estim Creat Clear Calc Estimated GFR POC Glucose 229 H 181 H 195 H Random Glucose Calcium Phosphorus Magnesium Albumin 06/13/22 06/13/22 07:46 08:49 Anion Gap 12 Estim Creat Clear Calc 103.6 Estimated GFR > 60 POC Glucose 279 H Random Glucose 327 H Calcium 8.1 L Phosphorus 3.2 Magnesium 2.0 Albumin 2.6 L Microbiology Microbiology Results: Microbiology 06/09/22 15:40 Gram Stain - Final Abdominal Fluid Routine Culture - Final Anaerobic Culture - Preliminary Culture in progress. Assessment and Plan (1) Intra-abdominal abscess: Status: Acute (2) JENNIFER (acute kidney injury): Status: Acute Plan 56 yo M with a PMH of HTN, DM, KYM on CPAP, morbid obesity, migranes, depression who is admitted under the general surgical services for resection of appendiceal adenoCa. 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 Mild gastritis Heartburn improved continue IV Pepcid Resp acidosis, Hx of KYM PCO2 improved from 75-58 ,pH 7.3 mild shortness of breath finger oximetry 97% on 2 L of oxygen, not on home oxygen has not been using his cpap while hospitalized Monitor closely for decompensation Encourage incentive spirometry/ambulation Acute respiratory failure with hypoxia likely due to pneumonia and atelectasis no effusion noted, no CHF Trop negative EKG ST with PVC Echo ef 55-60% Continue IV Zosyn day 4 and fini toshed IV azithromycin x 5 Days supplemental O2 as needed Encourage IS/ambulate as tolerated Hypokalemia resolved JENNIFER. Creatinine normalized is status post IV fluid renal ultrasound showed no obstruction thrombocytopenia resolved DM continue insulin sliding scale PICC line placed on TPN HTN BP soft,Continue Coreg Hydrochlorothiazide, losartan on hold HLD continue statin KYM not using CPAP last night repeat ABG showed improvement in pCO2 Mood continue zoloft, buspar and trazodone smudge cells noted on CBC no lymphocytosis, or leukocytosis recommend outpatient follow up Obesity BMI 38.5 Discussed importance of weight management as this may be contributing to worsening of other comorbidities dvt ppx - heparin Patient need continued inpatient hospitalization since requiring IV TPN /iv abx for abd infection Quality Stroke Does the patient have a stroke diagnosis?: No VTE Prior VTE?: No VTE Risk Level:: Medical - moderate - high VTE Device Contraindication: N/A - Device Ordered VTE Drug Contraindication: N/A - Med Ordered
[2022-06-13 11:38] LABS: Glucose, Whole Blood 249 mg/dL (60-115)
--- NOTE | 2022-06-13 13:06 | P.PNNP_ITS ---
Subjective Subjective Date of Service: 06/13/22 Interval history: Patient sitting comfortably on chair denies epigastric pain no heartburn, no acidity, right-sided abdominal drain with green liquidy fecal material, denies fever chills offers no other acute complaints. Physical Exam Vital Signs: Vital Signs: Last Vital Signs Temp 97.4 F 06/13/22 11:52 Pulse 78 06/13/22 11:52 Resp 18 06/13/22 11:52 BP 101/60 06/13/22 11:52 Pulse Ox 97 06/13/22 11:52 O2 Del Method 06/13/22 11:52 O2 Flow Rate 2.0 06/13/22 11:52 Oxygen Flow Rate 2 06/13/22 03:34 BMI result Body Mass Index 38.4 Const: Other: General awake aler t,in no acute dist ress.? Neck supple no JVD. CVS? regu lar rate rhythm, R espiratory lungs c lear to auscultati on, diminished at bases, no respirat ory distress, no w heeze, no rhonchi. Gastrointestinal abdomen distended, bowel sounds randolph ble, no guarding , no rigidity, marcial n incision, right- sided drain in liang ce, with green lik katarina fecal discharg e Extremities no e hilda. Neuro nonfoc al patient moving all 4 extremity sp eech clear. Skin n o rash Psych appro priate affect General: cooperative, comfortable, no acute distress, alert, awake, acute distress mild and tired appearing Nutritional Appearance: obese Orientation/consciousness: oriented to person, oriented to place, oriented to time and patient oriented x3 Limitations: no limitations and No language barrier HEENT: Head: Yes normal to inspection Eyes: General: appearance normal, both eyes and all related structures Pupils: Equal, round and reactive pupils present EOM: EOMs intact bilaterally Neck: Neck: Yes supple Resp: Other: gets SOB with exertion Effort & Inspection: normal respiratory effort and able to speak in complete sentences Auscultation: clear to auscultation bilaterally, crackles and diminished lung sounds (at bases) Cardio: Rate: regular rate and tachycardic Rhythm: regular rhythm Heart sounds: S1 normal heart sound present and S2 normal heart sound present GI: Other: abdomen soft but distended and round nont tender hypo bowel sounds incision well healed drain right now empty Inspection: Yes distended and Yes incision (clean) Palpation (GI): Soft to palpation, Tenderness to palpation present (GI) (mild right sided, drain site) with no rebound tenderness, no guarding and not rigid Percussion: Yes tympanic to percussion Skin: Other: diaphoretic General skin exam: no rashes or lesions noted Lesions: no lesions Neuro: General: oriented to person, oriented to place, oriented to time, patient oriented x3, moves all extremities and CN's II-XI intact bilaterally Cranial nerves: Yes Equal, round and reactive pupils present Cognition (Neuro): normal cognition Extrem: General: Yes normal to inspection, Yes no clubbing, cyanosis or edema and Yes no pedal edema Psych: Appearance: grossly normal Attitude: cooperative Objective Data Labs CBC & Chem 7: 06/12/22 07:52 06/13/22 08:49 Labs: Laboratory Results - last 24 hr 06/12/22 06/12/22 06/13/22 15:23 19:20 07:46 Sodium Potassium Chloride Carbon Dioxide Anion Gap BUN Creatinine Estim Creat Clear Calc Estimated GFR POC Glucose 181 H 195 H 279 H Random Glucose Calcium Phosphorus Magnesium Albumin 06/13/22 06/13/22 08:49 11:27 Sodium 146 H Potassium 4.4 Chloride 109 H Carbon Dioxide 29 Anion Gap 12 BUN 17 H Creatinine 1.04 Estim Creat Clear Calc 103.6 Estimated GFR > 60 POC Glucose 249 H Random Glucose 327 H Calcium 8.1 L Phosphorus 3.2 Magnesium 2.0 Albumin 2.6 L Microbiology Microbiology Results: Microbiology 06/09/22 15:40 Abdominal Fluid Gram Stain - Final 06/09/22 15:40 Abdominal Fluid Routine Culture - Final 06/09/22 15:40 Abdominal Fluid Anaerobic Culture - Final Bacteroides fragilis group Procedures Date of Service Date of Service: 06/13/22 Assessment & Plan Assessment and plan (1) Intra-abdominal abscess: Status: Acute (2) S/P right colectomy: Status: Acute Plan 56 year old male s/p right colectomy but now with intra-abdo drainage -? small bowel fistula - controlled- afebrile, not septic, on TPN, other issues with DM a nd HTn followed by the med team. not much change clinically doing ok cont npo with some sips and TPN- renewed lytes stable continue with increase free h20 via TPN or PO Progress Note: Quality Stroke Does the patient have a stroke diagnosis?: No
--- NOTE | 2022-06-13 14:45 | PC.NURSE ---
Patient with increased confusion, demanding to have multiple visitors and calling security up to the room to demand that he will be able to have unlimited visitors at the same time. spoke to nurse and expressed concern about patient saying things that does not make sense and increased confusion as well as pt daughter having the same concerns as patient is calling her names in Bengali that patient does not at baseline. calling family members to come visit him. states sees a therapist twice a month. Patient has continuously rang the silvestre and forgets what he rang silvestre for. MD aware Psych eval ordered.
[2022-06-13] MEDS: 0.9 % Sodium Chloride Flush 3 ML SYRINGE IVFLUSH ×2 (15:53→22:00)
[2022-06-13 16:39] LABS: Glucose, Whole Blood 172 mg/dL (60-115)
[2022-06-13 19:45] LABS: Glucose, Whole Blood 196 mg/dL (60-115)
[2022-06-13] MEDS: Atorvastatin Calcium 10 MG TABLET PO (20:42)
[2022-06-13] MEDS: traZODone HCL 50 MG TABLET 150 MG PO (20:42)
[2022-06-13] MEDS: Sertraline HCL 50 MG TABLET 150 MG PO (20:43)
[2022-06-13] MEDS: 0.9 % Sodium Chloride Flush 10 ML SYRINGE 5 ML IVFLUSH (22:01)
[2022-06-14] MEDS: Fat Emulsions 20% 250 ML 37 ML IV ×2 (00:16→19:06)
[2022-06-14] MEDS: Piperacillin Sodium/Tazobactam 3.375 GM in 0.9 % Sodium Chloride 50 ML IV (03:45)
[2022-06-14] MEDS: Heparin Sodium,Porcine 5,000 UNIT/ML VIAL 5000 UNIT SUBCUT ×3 (05:20→20:34)
[2022-06-14] MEDS: oxyCODONE HCl Immed Release 5 MG TABLET 10 MG PO ×3 (05:21→20:43)
[2022-06-14 07:28] VITALS: BP 110/56; PULSE 96; RESP 16; TEMP 36.5; O2SAT 96
--- NOTE | 2022-06-14 07:54 | P.PNGS_ITS ---
Subjective Subjective Date of Service: 06/14/22 <Bertha Fernandez PA-C - Last Filed: 06/14/22 08:00> 06/15/22 <Lit Norton MD - Last Filed: 06/15/22 14:35> Interval history: Feels much better this morning. No events over the weekend. Ambulating halls. Not passing much flatus. Denies abd pain. <Bertha Fernandez PA-C - Last Filed: 06/14/22 08:00> Physical Exam Vital Signs: Vital Signs: Last Vital Signs Temp 97.7 F 06/14/22 07:28 Pulse 96 06/14/22 07:28 Resp 16 06/14/22 07:28 BP 110/56 L 06/14/22 07:28 Pulse Ox 96 06/14/22 07:28 O2 Del Method 06/14/22 07:28 O2 Flow Rate 2 06/13/22 23:39 Oxygen Flow Rate 2 06/14/22 03:35 BMI result Body Mass Index 38.4 <Bertha Fernandez PA-C - Last Filed: 06/14/22 08:00> Const: General: comfortable, no acute distress and alert <Bertha Fernandez PA-C - Last Filed: 06/14/22 08:00> Orientation/consciousness: patient oriented x3 <YESENIA Wilson Last Filed: 06/14/22 08:00> Resp: Effort & Inspection: normal respiratory effort <Bertha Fernandez PA-C - Last Filed: 06/14/22 08:00> GI: Inspection: Yes distended and Yes incision (clean) <Bertha Fernandez PA-C - Last Filed: 06/14/22 08:00> Palpation (GI): Soft to palpation, nontender, no guarding and not rigid <YESENIA Wilson Last Filed: 06/14/22 08:00> Percussion: Yes tympanic to percussion <YESENIA Wilson Last Filed: 06/14/22 08:00> Skin: General skin exam: no rashes or lesions noted <YESENIA Wilson Last Filed: 06/14/22 08:00> Neuro: General: patient oriented x3 and moves all extremities <Bertha Fernandez PA-C - Last Filed: 06/14/22 08:00> Objective Data Active Medications Albuterol Sulfate (Albuterol Sulfate (0.042%) 1.25 Mg/3 Ml Vial.Neb) 1.25 mg INHALE RQ6H PRN PRN Reason: shortness of breath Last Admin: 06/07/22 23:46 Dose: 1.25 mg Documented By: STEPHANIE Atorvastatin Calcium (Atorvastatin Calcium 10 Mg Tablet) 10 mg PO BEDTIME [facility] Last Admin: 06/13/22 20:42 Dose: 10 mg Documented By: SUMEET Buspirone HCl (Buspirone Hcl 5 Mg Tablet) 5 mg PO DAILY [facility] Last Admin: 06/13/22 08:21 Dose: 5 mg Documented By: JAGRUTI Carvedilol (Carvedilol 12.5 Mg Tablet) 12.5 mg PO BID [facility]; Protocol Last Admin: 06/13/22 20:41 Dose: 12.5 mg Documented By: SUMEET Dextrose (Dextrose 50 % 25 Gm/50 Ml Syringe) 25 gm IVPUSH Q15M PRN; Protocol PRN Reason: per Hypoglycemia Standing Ord. Famotidine (Famotidine/Pf 20 Mg/2 Ml Vial) 20 mg IVPUSH BID [facility] Last Admin: 06/13/22 20:43 Dose: 20 mg Documented By: SUMEET Glucose (Glucose Gel 15 Gm Gel..Gram.) 15 gm PO Q15M PRN; Protocol PRN Reason: per Hypoglycemia Standing Ord. Heparin Sodium (Porcine) (Heparin Sodium,Porcine 5,000 Unit/Ml Vial) 5,000 unit SUBCUT Q8H [facility] Last Admin: 06/14/22 05:20 Dose: 5,000 unit Documented By: HALEY Promethazine HCl 12.5 mg/ (Sodium Chloride) 50.5 mls @ 202 mls/hr IV Q6H PRN PRN Reason: Nausea and Vomiting Acetaminophen (Ofirmev) 1,000 mg in 100 mls @ 400 mls/hr IV Q6H PRN PRN Reason: abdominal pain Last Infusion: 06/07/22 17:16 Dose: 0 mls/hr Documented By: NYA Potassium Chloride 46 meq/Sodium Chloride 50 meq/Magnesium Sulfate 10 meq/Potassium Phosphate 24 mmol/Calcium Gluconate 9.3 meq/Multivitamins 10 ml/ Trace Metals 1 ml/ Amino Acids/Dextrose 2,077 mls @ 85 mls/hr IV DAILY@1800 TEENA Stop: 06/14/22 17:59 Last Admin: 06/13/22 18:20 Dose: 85 mls/hr Documented By: GIULIA Metronidazole (Flagyl) 500 mg in 100 mls @ 100 mls/hr IV Q6H [facility] Levofloxacin (Levaquin) 500 mg in 100 mls @ 100 mls/hr IV Q24H [facility] Insulin Human Lispro (Insulin Lispro 100 Unit/Ml 3 Ml Vial) 0 unit SUBCUT QIDACHS [facility]; Protocol Last Admin: 06/13/22 20:43 Dose: 2 unit Documented By: SUMEET Morphine Sulfate (Morphine Sulfate 4 Mg/Ml Cartridge) 4 mg IVPUSH Q3H PRN; Protocol PRN Reason: Pain, Severe (Pain Scale 7-10) Last Admin: 06/13/22 13:42 Dose: 4 mg Documented By: JAGRUTI Ondansetron HCl (Ondansetron Hcl 4 Mg/2 Ml Vial) 4 mg IVPUSH Q8H PRN PRN Reason: Nausea Last Admin: 06/11/22 23:51 Dose: 4 mg Documented By: SUMEET Oxycodone HCl (Oxycodone Hcl Immed Release 5 Mg Tablet) 10 mg PO Q4H PRN PRN Reason: Pain, Moderate (Pain Scale 4-6 Last Admin: 06/14/22 05:21 Dose: 10 mg Documented By: HALEY Sertraline HCl (Sertraline Hcl 50 Mg Tablet) 150 mg PO BEDTIME [facility] Last Admin: 06/13/22 20:43 Dose: 150 mg Documented By: SUMEET Simethicone (Simethicone 80 Mg Tab.Chew) 80 mg PO QIDWMHS PRN PRN Reason: gassiness Last Admin: 06/12/22 22:18 Dose: 80 mg Documented By: SUMEET Sodium Chloride (0.9 % Sodium Chloride Flush 3 Ml Syringe) [facility] Last Admin: 06/13/22 22:00 Dose: 3 ml Documented By: SUMEET Sodium Chloride (0.9 % Sodium Chloride Flush 10 Ml Syringe) 5 ml IVFLUSH TID [facility] Last Admin: 06/13/22 22:01 Dose: 5 ml Documented By: SUMEET Trazodone HCl (Trazodone Hcl 50 Mg Tablet) 150 mg PO BEDTIME [facility] Last Admin: 06/13/22 20:42 Dose: 150 mg Documented By: SUMEET <Bertha Fernandez PA-C - Last Filed: 06/14/22 08:00> Labs CBC & Chem 7: : 06/12/22 07:52 06/15/22 09:46 <Bertha Fernandez PA-C - Last Filed: 06/14/22 08:00> Labs: Laboratory Results - last 24 hr 06/13/22 06/13/22 06/13/22 07:46 08:49 11:27 Anion Gap 12 Estim Creat Clear Calc 103.6 Estimated GFR > 60 POC Glucose 279 H 249 H Random Glucose 327 H Calcium 8.1 L Phosphorus 3.2 Magnesium 2.0 Albumin 2.6 L 06/13/22 06/13/22 16:35 19:37 Anion Gap Estim Creat Clear Calc Estimated GFR POC Glucose 172 H 196 H Random Glucose Calcium Phosphorus Magnesium Albumin <Bertha Fernandez PA-C - Last Filed: 06/14/22 08:00> Microbiology Microbiology Results: Microbiology 06/09/22 15:40 Gram Stain - Final Abdominal Fluid Routine Culture - Final Anaerobic Culture - Final Bacteroides fragilis group <Bertha Fernandez PA-C - Last Filed: 06/14/22 08:00> Procedures Date of Service Date of Service: 06/14/22 <Bertha Fernandez PA-C - Last Filed: 06/14/22 08:00> Progress Note: A&P Assessment and plan (1) Intra-abdominal abscess: Status: Acute <Bertha Fernandez PA-C - Last Filed: 06/14/22 08:00> Assessment and Plan: States he is comfortable Has had BMs twice today Has been ambulating Subjective feels better Abdomen still distended although soft Drain with greenish looking output Repeat CT scan tomorrow along with possible drainage - this was discussed with Dr. Liao of IR Continue TPN Sodium elevated Follow lytes Looks well otherwise Seen and examined independently - agree with MEHREEN Fernandez <Lit Norton MD - Last Filed: 06/15/22 14:35> (2) S/P right colectomy: Status: Acute <Bertha Fernandez PA-C - Last Filed: 06/14/22 08:00> (3) Primary appendiceal adenocarcinoma: Status: Acute <Betrha Fernandez PA-C - Last Filed: 06/14/22 08:00> Assessment and Plan: 56 year old male who is almost 2 weeks s/p right colectomy for appendiceal adenoCA. Post op course complicated by post op ileus, intraabdominal collection, respiratory distress. Now much improved. He is s/p IR drainage, ?fistulous connection to abscess as drainage is enteric in nature. It is downtrending, keep drain in place. Cultures grew Bacteroides fragilis, pen/amp resistant- changed zosyn to levaquin/flagyl. Cont TPN, PICC line. Encouraged OOB/ambulation and IS use. Possible repeat CT in next 1-2 days to reassess collection. POCs have been in 200s. On ISS. Hospitalists following. Appreciate input. <Bertha Fernandez PA-C - Last Filed: 06/14/22 08:00> Time Spent With Patient Time: Total time spent is greater than 50% in coordination of care (as documented) at patient's floor/unit and/or counseling patient: <Bertha Fernandez PA-C - Last Filed: 06/14/22 08:00> Quality Stroke Does the patient have a stroke diagnosis?: No <Bertha Fernandez PA-C - Last Filed: 06/14/22 08:00> VTE Prior VTE?: No <Bertha Fernandez PA-C - Last Filed: 06/14/22 08:00> VTE Risk Level:: Medical - moderate - high <YESENIA Wilson Last Filed: 06/14/22 08:00> VTE Device Contraindication: N/A - Device Ordered <Bertha Fernandez PA-C - Last Filed: 06/14/22 08:00> VTE Drug Contraindication: N/A - Med Ordered <Bertha Fernandez PA-C - Last Filed: 06/14/22 08:00>
[2022-06-14 08:01] LABS: Anion Gap 13 (12-20); Blood Urea Nitrogen 17 mg/dL (9-16); Calcium 8.2 mg/dL (8.4-10.2); Carbon Dioxide 28 mmol/L (22-29); Chloride 109 mmol/L (96-108); Creatinine Clr Calc Pharmacy 95.4; Estimated Glomerular Filt Rate > 60; Glucose Random 299 mg/dL (60-115); Magnesium 1.9 mg/dL (1.6-2.6); Phosphorus 3.4 mg/dL (2.7-4.5); Potassium 4.5 mmol/L (3.3-5.1); Sodium 145 mmol/L (135-145)
[2022-06-14] MEDS: levoFLOXacin/D5W 500 MG/100 ML PIGGYBACK 100 MG IV (08:18)
[2022-06-14] MEDS: carvediloL 12.5 MG TABLET PO ×2 (08:18→20:36)
[2022-06-14] MEDS: busPIRone HCl 5 MG TABLET PO (08:18)
[2022-06-14] MEDS: Famotidine/PF 20 MG/2 ML VIAL IVPUSH ×2 (08:18→20:35)
[2022-06-14] MEDS: Insulin Lispro 100 UNIT/ML 3 ML VIAL SUBCUT ×4 (08:18→20:35)
[2022-06-14] MEDS: 0.9 % Sodium Chloride Flush 3 ML SYRINGE IVFLUSH (08:19)
[2022-06-14 08:48] LABS: Glucose, Whole Blood 260 mg/dL (60-115)
--- NOTE | 2022-06-14 09:28 | PC.NURSE ---
states patient is confused and saying things that are not true. Requesting only essential staff enter room including RN, MD OMERO.
[2022-06-14] MEDS: metroNIDAZOLE/NS 500 MG/100 ML PIGGYBACK 100 MG IV ×2 (09:34→16:14)
[2022-06-14] MEDS: 0.9 % Sodium Chloride Flush 10 ML SYRINGE 5 ML IVFLUSH ×3 (09:35→20:38)
[2022-06-14 11:15] VITALS: BP 105/65; PULSE 93; RESP 16; TEMP 36.2; O2SAT 93
[2022-06-14 11:29] LABS: Glucose, Whole Blood 238 mg/dL (60-115)
[2022-06-14 12:15] VITALS: BP 105/65; PULSE 93; O2SAT 93
--- NOTE | 2022-06-14 12:18 | MHC.CM.PN ---
PER MD ROUNDS, PT NOT YET MEDICALLY CLEARED DCP REMAINS HOME WITH [facility]UMPTION OF [facility] S/O TO TRANSPORT
--- NOTE | 2022-06-14 12:56 | HO.PM.IMPN ---
Subjective Subjective Date of Service: 06/14/22 Interval History: Patient awake alert wants to wear Halloween mask , yesterday patient call security in the room and demanded that he will have unlimited visitors at the same time patient also called her daughter with different names,, at present answering questions appropriately denies abdominal pain having bowel movements. Review of Systems [employer] no headache no dizziness General no fevers, no chills CVS no chest pain, no shortness of breath Review of Systems: Yes all other systems are reviewed and are negative Physical Exam Vital Signs: Vital Signs: Last Vital Signs Temp 97.2 F 06/14/22 11:15 Pulse 93 06/14/22 12:15 Resp 16 06/14/22 11:15 BP 105/65 06/14/22 12:15 Pulse Ox 93 06/14/22 12:15 O2 Del Method 06/14/22 11:15 O2 Flow Rate 2 06/13/22 23:39 Oxygen Flow Rate 2 06/14/22 03:35 BMI result Body Mass Index 38.4 Const: Other: General awake alert,in no acute distress.? Neck supple no JVD. CVS? regular rate rhythm, Respiratory lungs clear to auscultation, diminished at bases, no respiratory distress, no wheeze, no rhonchi. Gastrointestinal abdomen distended, bowel sounds audible, no guarding , no rigidity, clean incision, right-sided drain in place, with green pasty discharge Extremities no edema. Neuro nonfocal patient moving all 4 extremity speech clear. Skin no rash Psych appropriate affect Objective Data Active Medications Albuterol Sulfate (Albuterol Sulfate (0.042%) 1.25 Mg/3 Ml Vial.Neb) 1.25 mg INHALE RQ6H PRN PRN Reason: shortness of breath Last Admin: 06/07/22 23:46 Dose: 1.25 mg Documented By: STEPHANIE Atorvastatin Calcium (Atorvastatin Calcium 10 Mg Tablet) 10 mg PO BEDTIME [facility] Last Admin: 06/13/22 20:42 Dose: 10 mg Documented By: SUMEET Buspirone HCl (Buspirone Hcl 5 Mg Tablet) 5 mg PO DAILY [facility] Last Admin: 06/14/22 08:18 Dose: 5 mg Documented By: REMI Carvedilol (Carvedilol 12.5 Mg Tablet) 12.5 mg PO BID [facility]; Protocol Last Admin: 06/14/22 08:18 Dose: 12.5 mg Documented By: REMI Dextrose (Dextrose 50 % 25 Gm/50 Ml Syringe) 25 gm IVPUSH Q15M PRN; Protocol PRN Reason: per Hypoglycemia Standing Ord. Famotidine (Famotidine/Pf 20 Mg/2 Ml Vial) 20 mg IVPUSH BID [facility] Last Admin: 06/14/22 08:18 Dose: 20 mg Documented By: REMI Glucose (Glucose Gel 15 Gm Gel..Gram.) 15 gm PO Q15M PRN; Protocol PRN Reason: per Hypoglycemia Standing Ord. Heparin Sodium (Porcine) (Heparin Sodium,Porcine 5,000 Unit/Ml Vial) 5,000 unit SUBCUT Q8H [facility] Last Admin: 06/14/22 05:20 Dose: 5,000 unit Documented By: HALEY Promethazine HCl 12.5 mg/ (Sodium Chloride) 50.5 mls @ 202 mls/hr IV Q6H PRN PRN Reason: Nausea and Vomiting Acetaminophen (Ofirmev) 1,000 mg in 100 mls @ 400 mls/hr IV Q6H PRN PRN Reason: abdominal pain Last Infusion: 06/07/22 17:16 Dose: 0 mls/hr Documented By: NYA Potassium Chloride 46 meq/Sodium Chloride 50 meq/Magnesium Sulfate 10 meq/Potassium Phosphate 24 mmol/Calcium Gluconate 9.3 meq/Multivitamins 10 ml/ Trace Metals 1 ml/ Amino Acids/Dextrose 2,077 mls @ 85 mls/hr IV DAILY@1800 [facility] Stop: 06/14/22 17:59 Last Admin: 06/13/22 18:20 Dose: 85 mls/hr Documented By: GIULIA Metronidazole (Flagyl) 500 mg in 100 mls @ 100 mls/hr IV Q8H [facility] Last Infusion: 06/14/22 10:43 Dose: 0 mls/hr Documented By: REMI Levofloxacin (Levaquin) 500 mg in 100 mls @ 100 mls/hr IV Q24H [facility] Last Infusion: 06/14/22 09:22 Dose: 0 mls/hr Documented By: REMI Potassium Chloride 46 meq/Sodium Chloride 50 meq/Magnesium Sulfate 10 meq/Potassium Phosphate 24 mmol/Calcium Gluconate 9.3 meq/Multivitamins 10 ml/ Trace Metals 1 ml/ Amino Acids/Dextrose 2,040 mls @ 85 mls/hr IV DAILY@1800 [facility] Stop: 06/15/22 17:59 Fat Emulsion Intravenous (Intralipid) 222 mls @ 37 mls/hr IV DAILY@1800 [facility] Stop: 06/14/22 23:59 Fat Emulsion Intravenous (Intralipid) 222 mls @ 37 mls/hr IV DAILY@0000 [facility] Stop: 06/15/22 05:59 Insulin Human Lispro (Insulin Lispro 100 Unit/Ml 3 Ml Vial) 0 unit SUBCUT QIDACHS [facility]; Protocol Last Admin: 06/14/22 11:57 Dose: 4 unit Documented By: REMI Morphine Sulfate (Morphine Sulfate 4 Mg/Ml Cartridge) 4 mg IVPUSH Q3H PRN; Protocol PRN Reason: Pain, Severe (Pain Scale 7-10) Last Admin: 06/13/22 13:42 Dose: 4 mg Documented By: JAGRUTI Ondansetron HCl (Ondansetron Hcl 4 Mg/2 Ml Vial) 4 mg IVPUSH Q8H PRN PRN Reason: Nausea Last Admin: 06/11/22 23:51 Dose: 4 mg Documented By: SUMEET Oxycodone HCl (Oxycodone Hcl Immed Release 5 Mg Tablet) 10 mg PO Q4H PRN PRN Reason: Pain, Moderate (Pain Scale 4-6 Last Admin: 06/14/22 12:15 Dose: 10 mg Documented By: REMI Sertraline HCl (Sertraline Hcl 50 Mg Tablet) 150 mg PO BEDTIME [facility] Last Admin: 06/13/22 20:43 Dose: 150 mg Documented By: SUMEET Simethicone (Simethicone 80 Mg Tab.Chew) 80 mg PO QIDWMHS PRN PRN Reason: gassiness Last Admin: 06/12/22 22:18 Dose: 80 mg Documented By: SUMEET Sodium Chloride (0.9 % Sodium Chloride Flush 3 Ml Syringe) 3 ml IVFLUSH QSHIFT [facility] Last Admin: 06/14/22 08:19 Dose: 3 ml Documented By: REMI Sodium Chloride (0.9 % Sodium Chloride Flush 10 Ml Syringe) 5 ml IVFLUSH TID [facility] Last Admin: 06/14/22 09:35 Dose: 5 ml Documented By: REMI Trazodone HCl (Trazodone Hcl 50 Mg Tablet) 150 mg PO BEDTIME [facility] Last Admin: 06/13/22 20:42 Dose: 150 mg Documented By: SUMEET Labs CBC & Chem 7: 06/12/22 07:52 06/14/22 07:41 Labs: Laboratory Results - last 24 hr 06/13/22 06/13/22 06/14/22 16:35 19:37 07:41 Anion Gap 13 Estim Creat Clear Calc 95.4 Estimated GFR > 60 POC Glucose 172 H 196 H Random Glucose 299 H Calcium 8.2 L Phosphorus 3.4 Magnesium 1.9 06/14/22 06/14/22 07:44 11:15 Anion Gap Estim Creat Clear Calc Estimated GFR POC Glucose 260 H 238 H Random Glucose Calcium Phosphorus Magnesium Microbiology Microbiology Results: Microbiology 06/09/22 15:40 Gram Stain - Final Abdominal Fluid Routine Culture - Final Anaerobic Culture - Final Bacteroides fragilis group Assessment and Plan (1) Intra-abdominal abscess: Status: Acute (2) JENNIFER (acute kidney injury): Status: Acute Plan 56 yo M with a PMH of HTN, DM, KYM on CPAP, morbid obesity, migranes, depression who is admitted under the general surgical services for resection of appendiceal adenoCa. Medical consulted for management of DM and HTN Appendiceal adenoCa - s/p R colon resection course complicated by post op ileus and fluid collection on right-sided status post IR drainage of right-sided fluid collection purulent/fecal material removed on 06/09, question fistulous connection to abscess drain in place. Cultures grew Bacteroides fragilis, pen/amp resistant- changed zosyn to levaquin/flagyl. Cont TPN, PICC line. Encouraged OOB/ambulation and IS use. Being followed by General surgery Possible repeat CT in next 1-2 days to reassess collection . leukocytosis resolved , no abdominal pain , no fever oncology evaluation once surgical issues resolved. Mild gastritis Heartburn improved continue IV Pepcid Resp acidosis, Hx of KYM PCO2 improved from 75-58 ,pH 7.3 no shortness of breath finger oximetry 97% on 2 L of oxygen, not on home oxygen Encouraged to use CPAP Monitor closely for decompensation Encourage incentive spirometry/ambulation Acute respiratory failure with hypoxia likely due to pneumonia and atelectasis no effusion noted, no CHF Trop negative,EKG ST with PVC Echo ef 55-60% Finished 5 day course of azithromycin, now on Levaquin as above supplemental O2 as needed Encourage IS/ambulate as tolerated Hypokalemia resolved JENNIFER. Creatinine normalized is status post IV fluid renal ultrasound showed no obstruction thrombocytopenia resolved DM continue insulin sliding scale PICC line/ on TPN HTN BP soft,Continue Coreg Hydrochlorothiazide, losartan on hold HLD continue statin KYM not using CPAP , repeat ABG showed improvement in pCO2 Mood continue zoloft, buspar and trazodone smudge cells noted on CBC no lymphocytosis, or leukocytosis recommend outpatient follow up Obesity BMI 38.5 Discussed importance of weight management as this may be contributing to worsening of other comorbidities dvt ppx - heparin Patient need continued inpatient hospitalization since requiring IV TPN /iv abx for abd infection Quality Stroke Does the patient have a stroke diagnosis?: No VTE Prior VTE?: No VTE Risk Level:: Medical - moderate - high VTE Device Contraindication: N/A - Device Ordered VTE Drug Contraindication: N/A - Med Ordered
--- NOTE | 2022-06-14 15:53 | PM.EVENT ---
Event Note Date of Service: 06/15/22 Event Note: Says he is comfortable Has been napping Denies abdominal pain at this time Abdomen distended but soft No guarding rebound Plan to repeat CT scan and CT drainage tomorrow Explained plan to family Laparotomy may be necessary eventually persistence of this drainage He may need a temporary ileostomy as well Best to be able to buy time allow postop plantar changes settle down
[2022-06-14 16:19] VITALS: BP 119/65; PULSE 92; RESP 18; TEMP 36.7; O2SAT 98
[2022-06-14 16:28] LABS: Glucose, Whole Blood 198 mg/dL (60-115)
[2022-06-14 20:00] VITALS: BP 110/65; PULSE 100; RESP 18; TEMP 36.9; O2SAT 97
[2022-06-14 20:23] LABS: Glucose, Whole Blood 182 mg/dL (60-115)
[2022-06-14] MEDS: Sertraline HCL 50 MG TABLET 150 MG PO (20:36)
[2022-06-14] MEDS: Atorvastatin Calcium 10 MG TABLET PO (20:36)
[2022-06-14] MEDS: traZODone HCL 50 MG TABLET 150 MG PO (20:36)
[2022-06-15] VITALS (7 sets, daily range): BP systolic 97–120; BP diastolic 56–63; PULSE 95–100; RESP 16–18; TEMP 36.1–37.2; O2SAT 92–95
[2022-06-15] MEDS: metroNIDAZOLE/NS 500 MG/100 ML PIGGYBACK 100 MG IV ×3 (00:23→16:28)
[2022-06-15] MEDS: 0.9 % Sodium Chloride Flush 3 ML SYRINGE IVFLUSH ×2 (00:26→10:36)
[2022-06-15] MEDS: Fat Emulsions 20% 250 ML 37 ML IV ×2 (00:27→18:05)
--- NOTE | 2022-06-15 00:45 | PC.NURSE ---
Took over care of patient around 2300. Pt A&OX4, pleasant and cooperative. at bedside. See assessment for complete assessment. TPN and lipids infusing as ordered. IV Flagyl as ordered. No c/o pain. Will continue to monitor.
[2022-06-15] MEDS: Heparin Sodium,Porcine 5,000 UNIT/ML VIAL 5000 UNIT SUBCUT ×3 (05:39→20:23)
[2022-06-15] MEDS: oxyCODONE HCl Immed Release 5 MG TABLET 10 MG PO ×3 (05:46→20:24)
[2022-06-15 08:17] LABS: Glucose, Whole Blood 257 mg/dL (60-115)
--- NOTE | 2022-06-15 08:51 | PM.PNGS ---
Subjective Subjective Date of Service: 06/15/22 <Bertha Fernandez PA-C - Last Filed: 06/15/22 09:01> 06/15/22 <Lit Norton MD - Last Filed: 06/15/22 09:54> Interval history: Feels ok this morning. Has been passing a lot of flatus. Had small formed stool this morning. <Bertha Fernandez PA-C - Last Filed: 06/15/22 09:01> Physical Exam Vital Signs: Vital Signs: Last Vital Signs Temp 96.9 F 06/15/22 08:00 Pulse 100 06/15/22 08:00 Resp 18 06/15/22 08:00 BP 114/58 L 06/15/22 08:00 Pulse Ox 95 06/15/22 08:00 O2 Del Method 06/15/22 08:00 O2 Flow Rate 2 06/15/22 04:00 Oxygen Flow Rate 2 06/15/22 04:00 BMI result Body Mass Index 38.4 <Bertha Fernandez PA-C - Last Filed: 06/15/22 09:01> Const: General: comfortable, no acute distress and alert <Bertha Fernandez PA-C - Last Filed: 06/15/22 09:01> Orientation/consciousness: patient oriented x3 <YESENIA Wilson Last Filed: 06/15/22 09:01> Resp: Effort & Inspection: normal respiratory effort <Bertha Fernandez PA-C - Last Filed: 06/15/22 09:01> GI: Other: pigtail drain with enteric contents <Bertha Fernandez PA-C - Last Filed: 06/15/22 09:01> Inspection: Yes distended and Yes incision (clean, well healed) <YESENIA Wilson Last Filed: 06/15/22 09:01> Palpation (GI): Tenderness to palpation present (GI) (right sided), no guarding and not rigid <YESENIA Wilson Last Filed: 06/15/22 09:01> Percussion: Yes tympanic to percussion <YESENIA Wilson Last Filed: 06/15/22 09:01> Skin: General skin exam: no rashes or lesions noted <Bertha Fernandez PA-C - Last Filed: 06/15/22 09:01> Neuro: General: patient oriented x3 <Bertha Fernandez PA-C - Last Filed: 06/15/22 09:01> Objective Data Active Medications Albuterol Sulfate (Albuterol Sulfate (0.042%) 1.25 Mg/3 Ml Vial.Neb) 1.25 mg INHALE RQ6H PRN PRN Reason: shortness of breath Last Admin: 06/07/22 23:46 Dose: 1.25 mg Documented By: STEPHANIE Atorvastatin Calcium (Atorvastatin Calcium 10 Mg Tablet) 10 mg PO BEDTIME [facility] Last Admin: 06/14/22 20:36 Dose: 10 mg Documented By: GYOO Buspirone HCl (Buspirone Hcl 5 Mg Tablet) 5 mg PO DAILY [facility] Last Admin: 06/14/22 08:18 Dose: 5 mg Documented By: REMI Carvedilol (Carvedilol 12.5 Mg Tablet) 12.5 mg PO BID [facility]; Protocol Last Admin: 06/14/22 20:36 Dose: 12.5 mg Documented By: GOYO Dextrose (Dextrose 50 % 25 Gm/50 Ml Syringe) 25 gm IVPUSH Q15M PRN; Protocol PRN Reason: per Hypoglycemia Standing Ord. Famotidine (Famotidine/Pf 20 Mg/2 Ml Vial) 20 mg IVPUSH BID [facility] Last Admin: 06/14/22 20:35 Dose: 20 mg Documented By: GOYO Glucose (Glucose Gel 15 Gm Gel..Gram.) 15 gm PO Q15M PRN; Protocol PRN Reason: per Hypoglycemia Standing Ord. Heparin Sodium (Porcine) (Heparin Sodium,Porcine 5,000 Unit/Ml Vial) 5,000 unit SUBCUT Q8H [facility] Last Admin: 06/15/22 05:39 Dose: 5,000 unit Documented By: BHAVESH Promethazine HCl 12.5 mg/ (Sodium Chloride) 50.5 mls @ 202 mls/hr IV Q6H PRN PRN Reason: Nausea and Vomiting Acetaminophen (Ofirmev) 1,000 mg in 100 mls @ 400 mls/hr IV Q6H PRN PRN Reason: abdominal pain Last Infusion: 06/07/22 17:16 Dose: 0 mls/hr Documented By: NYA Metronidazole (Flagyl) 500 mg in 100 mls @ 100 mls/hr IV Q8H [facility] Last Infusion: 06/15/22 01:23 Dose: 0 mls/hr Documented By: BHAVESH Levofloxacin (Levaquin) 500 mg in 100 mls @ 100 mls/hr IV Q24H [facility] Last Infusion: 06/14/22 09:22 Dose: 0 mls/hr Documented By: REMI Potassium Chloride 46 meq/Sodium Chloride 50 meq/Magnesium Sulfate 10 meq/Potassium Phosphate 24 mmol/Calcium Gluconate 9.3 meq/Multivitamins 10 ml/ Trace Metals 1 ml/ Amino Acids/Dextrose 2,040 mls @ 85 mls/hr IV DAILY@1800 [facility] Stop: 06/15/22 17:59 Last Admin: 06/14/22 19:03 Dose: 85 mls/hr Documented By: GOYO Insulin Human Lispro (Insulin Lispro 100 Unit/Ml 3 Ml Vial) 0 unit SUBCUT QIDACHS [facility]; Protocol Last Admin: 06/14/22 20:35 Dose: 2 unit Documented By: GOYO Morphine Sulfate (Morphine Sulfate 4 Mg/Ml Cartridge) 4 mg IVPUSH Q3H PRN; Protocol PRN Reason: Pain, Severe (Pain Scale 7-10) Last Admin: 06/13/22 13:42 Dose: 4 mg Documented By: JAGRUTI Ondansetron HCl (Ondansetron Hcl 4 Mg/2 Ml Vial) 4 mg IVPUSH Q8H PRN PRN Reason: Nausea Last Admin: 06/11/22 23:51 Dose: 4 mg Documented By: OZORALB Oxycodone HCl (Oxycodone Hcl Immed Release 5 Mg Tablet) 10 mg PO Q4H PRN PRN Reason: Pain, Moderate (Pain Scale 4-6 Last Admin: 06/15/22 05:46 Dose: 10 mg Documented By: BHAVESH Sertraline HCl (Sertraline Hcl 50 Mg Tablet) 150 mg PO BEDTIME [facility] Last Admin: 06/14/22 20:36 Dose: 150 mg Documented By: GOYO Simethicone (Simethicone 80 Mg Tab.Chew) 80 mg PO QIDWMHS PRN PRN Reason: gassiness Last Admin: 06/12/22 22:18 Dose: 80 mg Documented By: OZORALB Sodium Chloride (0.9 % Sodium Chloride Flush 3 Ml Syringe) 3 ml IVFLUSH QSHIFT [facility] Last Admin: 06/15/22 00:26 Dose: 3 ml Documented By: SHERIDL Sodium Chloride (0.9 % Sodium Chloride Flush 10 Ml Syringe) 5 ml IVFLUSH TID [facility] Last Admin: 06/14/22 20:38 Dose: 5 ml Documented By: GOYO Trazodone HCl (Trazodone Hcl 50 Mg Tablet) 150 mg PO BEDTIME [facility] Last Admin: 06/14/22 20:36 Dose: 150 mg Documented By: GOYO <Bertha Fernandez PA-C - Last Filed: 06/15/22 09:01> Labs CBC & Chem 7: : 06/12/22 07:52 06/14/22 07:41 <Bertha Fernandez PA-C - Last Filed: 06/15/22 09:01> Labs: Laboratory Results - last 24 hr 06/14/22 06/14/22 06/14/22 11:15 16:22 20:15 POC Glucose 238 H 198 H 182 H 06/15/22 08:09 POC Glucose 257 H <Bertha Fernandez PA-C - Last Filed: 06/15/22 09:01> Procedures Date of Service Date of Service: 06/15/22 <Bertha Fernandez PA-C - Last Filed: 06/15/22 09:01> Progress Note: A&P Assessment and plan (1) Intra-abdominal abscess: Status: Acute <YESENIA Wilson Last Filed: 06/15/22 09:01> (2) S/P right colectomy: Status: Acute <YESENIA Wilson Last Filed: 06/15/22 09:01> Assessment and Plan: feels well and looks comfortable passing flatus had BMs ambulating looks comfortable abdomen distended but soft no guarding rebound plan for repeat CT scan today and possible additional drain - reviewed with radiologist jaylin Diaz in the room understands the plan seen and examined independently <Lit Norton MD - Last Filed: 06/15/22 09:54> Assessment and Plan: 56 year old male who is 2 weeks s/p right colectomy for right colon adenoCA. Post op course complicated by post op ileus, intraabdominal collection, respiratory distress. He is s/p IR drainage last week. Question of fistulous connection to abscess as the drainage is enteric in nature. Plan for repeat CT scan abd/pelvis today with drainage if needed. Continue IV levaquin/flagyl. Cont TPN, PICC line. Encouraged OOB/ambulation and IS use. May need surgical intervention with ex lap, ileostomy creation if no further improvement. POCs have been in 200s. On ISS. Hospitalists following. Appreciate input. <Bertha Fernandez PA-C - Last Filed: 06/15/22 09:01> Time Spent With Patient Time: Total time spent is greater than 50% in coordination of care (as documented) at patient's floor/unit and/or counseling patient: <Bertha Fernandez PA-C - Last Filed: 06/15/22 09:01> Quality Stroke Does the patient have a stroke diagnosis?: No <Bertha Fernandez PA-C - Last Filed: 06/15/22 09:01> VTE Prior VTE?: No <Bertha Fernandez PA-C - Last Filed: 06/15/22 09:01> VTE Risk Level:: Medical - moderate - high <Bertha Fernandez PA-C - Last Filed: 06/15/22 09:01> VTE Device Contraindication: N/A - Device Ordered <Bertha Fernandez PA-C - Last Filed: 06/15/22 09:01> VTE Drug Contraindication: N/A - Med Ordered <Bertha Fernandez PA-C - Last Filed: 06/15/22 09:01>
[2022-06-15] MEDS: busPIRone HCl 5 MG TABLET PO (08:56)
[2022-06-15] MEDS: carvediloL 12.5 MG TABLET PO ×2 (08:56→20:14)
[2022-06-15] MEDS: levoFLOXacin/D5W 500 MG/100 ML PIGGYBACK 100 MG IV (08:57)
[2022-06-15] MEDS: Famotidine/PF 20 MG/2 ML VIAL IVPUSH ×2 (08:58→20:13)
[2022-06-15] MEDS: Insulin Lispro 100 UNIT/ML 3 ML VIAL SUBCUT ×4 (08:58→20:23)
[2022-06-15 10:28] LABS: Albumin Level 2.9 g/dL (3.5-5.0); Anion Gap 14 (12-20); Blood Urea Nitrogen 17 mg/dL (9-16); Calcium 8.5 mg/dL (8.4-10.2); Carbon Dioxide 29 mmol/L (22-29); Chloride 105 mmol/L (96-108); Creatinine Clr Calc Pharmacy 93.7; Estimated Glomerular Filt Rate > 60; Glucose Random 304 mg/dL (60-115); Phosphorus 3.4 mg/dL (2.7-4.5); Potassium 4.9 mmol/L (3.3-5.1); Sodium 143 mmol/L (135-145)
[2022-06-15] MEDS: 0.9 % Sodium Chloride Flush 10 ML SYRINGE 5 ML IVFLUSH ×3 (10:36→20:10)
[2022-06-15] MEDS: Barium Sulfate Oral (Berry) 450 ML ORAL.SUSP 900 ML PO (12:12)
[2022-06-15 13:08] LABS: Glucose, Whole Blood 172 mg/dL (60-115)
--- NOTE | 2022-06-15 14:14 | HO.PM.IMPN ---
Subjective Subjective Date of Service: 06/15/22 Interval History: Pain controlled Now adherent with CPAP Denies dyspnea or cough Review of Systems Review of Systems: Yes all other systems are reviewed and are negative Physical Exam Vital Signs: Vital Signs: Last Vital Signs Temp 97.4 F 06/15/22 12:00 Pulse 100 06/15/22 12:00 Resp 18 06/15/22 12:00 BP 97/57 L 06/15/22 12:00 Pulse Ox 95 06/15/22 09:09 O2 Del Method 06/15/22 08:00 O2 Flow Rate 2 06/15/22 08:00 Oxygen Flow Rate 2 06/15/22 04:00 BMI result Body Mass Index 38.4 Gen: in no acute distress HEENT: sclera anicteric, moist mucus membranes Neck: supple Lungs: clear to auscultation bilaterally Heart: regular rate and rhythm, no murmurs Abd: soft, non-tender, non-distended, surgical incision healed, pigtail drain with green liquid Ext: no edema Skin: warm/well-perfused Neuro: alert and oriented x3, no focal findings Psych: appropriate affect Objective Data Active Medications Al Hydroxide/Mg Hydroxide (Magnesium Hydrox/Alum Hydrox 30 Ml Oral.Susp) 30 ml PO Q6H PRN PRN Reason: heartburn Albuterol Sulfate (Albuterol Sulfate (0.042%) 1.25 Mg/3 Ml Vial.Neb) 1.25 mg INHALE RQ6H PRN PRN Reason: shortness of breath Last Admin: 06/07/22 23:46 Dose: 1.25 mg Documented By: STEPHANIE Atorvastatin Calcium (Atorvastatin Calcium 10 Mg Tablet) 10 mg PO BEDTIME [facility] Last Admin: 06/14/22 20:36 Dose: 10 mg Documented By: GOYO Buspirone HCl (Buspirone Hcl 5 Mg Tablet) 5 mg PO DAILY [facility] Last Admin: 06/15/22 08:56 Dose: 5 mg Documented By: REMI Carvedilol (Carvedilol 12.5 Mg Tablet) 12.5 mg PO BID [facility]; Protocol Last Admin: 06/15/22 08:56 Dose: 12.5 mg Documented By: REMI Dextrose (Dextrose 50 % 25 Gm/50 Ml Syringe) 25 gm IVPUSH Q15M PRN; Protocol PRN Reason: per Hypoglycemia Standing Ord. Famotidine (Famotidine/Pf 20 Mg/2 Ml Vial) 20 mg IVPUSH BID [facility] Last Admin: 06/15/22 08:58 Dose: 20 mg Documented By: REMI Glucose (Glucose Gel 15 Gm Gel..Gram.) 15 gm PO Q15M PRN; Protocol PRN Reason: per Hypoglycemia Standing Ord. Heparin Sodium (Porcine) (Heparin Sodium,Porcine 5,000 Unit/Ml Vial) 5,000 unit SUBCUT Q8H [facility] Last Admin: 06/15/22 13:17 Dose: 5,000 unit Documented By: REMI Promethazine HCl 12.5 mg/ (Sodium Chloride) 50.5 mls @ 202 mls/hr IV Q6H PRN PRN Reason: Nausea and Vomiting Acetaminophen (Ofirmev) 1,000 mg in 100 mls @ 400 mls/hr IV Q6H PRN PRN Reason: abdominal pain Last Infusion: 06/07/22 17:16 Dose: 0 mls/hr Documented By: NYA Metronidazole (Flagyl) 500 mg in 100 mls @ 100 mls/hr IV Q8H [facility] Last Infusion: 06/15/22 12:10 Dose: 0 mls/hr Documented By: REMI Levofloxacin (Levaquin) 500 mg in 100 mls @ 100 mls/hr IV Q24H [facility] Last Infusion: 06/15/22 10:42 Dose: 0 mls/hr Documented By: REMI Potassium Chloride 46 meq/Sodium Chloride 50 meq/Magnesium Sulfate 10 meq/Potassium Phosphate 24 mmol/Calcium Gluconate 9.3 meq/Multivitamins 10 ml/ Trace Metals 1 ml/ Amino Acids/Dextrose 2,040 mls @ 85 mls/hr IV DAILY@1800 [facility] Stop: 06/15/22 17:59 Last Admin: 06/14/22 19:03 Dose: 85 mls/hr Documented By: GOYO Potassium Chloride 46 meq/Sodium Chloride 50 meq/Magnesium Sulfate 10 meq/Potassium Phosphate 24 mmol/Calcium Gluconate 9.3 meq/Multivitamins 10 ml/ Trace Metals 1 ml/ Amino Acids/Dextrose 2,040 mls @ 85 mls/hr IV DAILY@1800 [facility] Stop: 06/16/22 17:59 Fat Emulsion Intravenous (Intralipid) 222 mls @ 37 mls/hr IV DAILY@1800 [facility] Stop: 06/15/22 23:59 Fat Emulsion Intravenous (Intralipid) 222 mls @ 37 mls/hr IV DAILY@1800 [facility] Stop: 06/16/22 05:59 Insulin Human Lispro (Insulin Lispro 100 Unit/Ml 3 Ml Vial) 0 unit SUBCUT QIDACHS [facility]; Protocol Last Admin: 06/15/22 13:17 Dose: 4 unit Documented By: REMI Morphine Sulfate (Morphine Sulfate 4 Mg/Ml Cartridge) 4 mg IVPUSH Q3H PRN; Protocol PRN Reason: Pain, Severe (Pain Scale 7-10) Last Admin: 06/13/22 13:42 Dose: 4 mg Documented By: JAGRUTI Ondansetron HCl (Ondansetron Hcl 4 Mg/2 Ml Vial) 4 mg IVPUSH Q8H PRN PRN Reason: Nausea Last Admin: 06/11/22 23:51 Dose: 4 mg Documented By: SUMEET Oxycodone HCl (Oxycodone Hcl Immed Release 5 Mg Tablet) 10 mg PO Q4H PRN PRN Reason: Pain, Moderate (Pain Scale 4-6 Last Admin: 06/15/22 13:57 Dose: 10 mg Documented By: REMI Sertraline HCl (Sertraline Hcl 50 Mg Tablet) 150 mg PO BEDTIME [facility] Last Admin: 06/14/22 20:36 Dose: 150 mg Documented By: GOYO Simethicone (Simethicone 80 Mg Tab.Chew) 80 mg PO QIDWMHS PRN PRN Reason: gassiness Last Admin: 06/12/22 22:18 Dose: 80 mg Documented By: SUMEET Sodium Chloride (0.9 % Sodium Chloride Flush 3 Ml Syringe) 3 ml IVFLUSH QSHIFT [facility] Last Admin: 06/15/22 10:36 Dose: 3 ml Documented By: REMI Sodium Chloride (0.9 % Sodium Chloride Flush 10 Ml Syringe) 5 ml IVFLUSH TID [facility] Last Admin: 06/15/22 10:36 Dose: 5 ml Documented By: REMI Trazodone HCl (Trazodone Hcl 50 Mg Tablet) 150 mg PO BEDTIME [facility] Last Admin: 06/14/22 20:36 Dose: 150 mg Documented By: GOYO Labs CBC & Chem 7: 06/12/22 07:52 06/15/22 09:46 Labs: Laboratory Results - last 24 hr 06/14/22 06/14/22 06/15/22 16:22 20:15 08:09 Anion Gap Estim Creat Clear Calc Estimated GFR POC Glucose 198 H 182 H 257 H Random Glucose Calcium Phosphorus Magnesium Albumin 06/15/22 06/15/22 09:46 13:03 Anion Gap 14 Estim Creat Clear Calc 93.7 Estimated GFR > 60 POC Glucose 172 H Random Glucose 304 H Calcium 8.5 Phosphorus 3.4 Magnesium 2.0 Albumin 2.9 L Assessment and Plan (1) Intra-abdominal abscess: Status: Acute (2) JENNIFER (acute kidney injury): Status: Acute Plan d#15 56yo M with HTN, DM, KYM on CPAP, morbid obesity, migraines, depression admitted to General Surgery for resection of appendiceal adenoCA medicine consulted for management of DM and HTN # 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 Cultures grew Bacteroides fragilis, PCN/AMP-resistant; changed pip-glen to levofloxacin + metronidazole d#2 - continue TPN via PICC - encourage OOB/ambulation, IS - repeat CT today to re-assess collection; may require ex-lap/ileostomy # gastritis - IV H2RA # acute hypercarbic/hypoxic resp failure # KYM - continue CPAP, IS, ambulation - PNA treated with 5d of azithromycin, now on levofloxacin - wean suppl O2 as tolerated - cardiac workup negative # hypoK - resolved, coninute TPN # JENNIFER - resolved s/p IV fluids # thrombocytopenia - resolved # DM2 - increase correction dose of lispro # HTN - continue carvedilol; held HCTZ + losartan due to JENNIFER # HLD - continue statin # mood disorder - continue sertraline, buspirone, trazodone # smudge cells on CBC - no lymphocytosis or leukocytosis; outpt Heme f/u # obesity - weight loss counseling # VTE ppx: UFH In my clinical judgment, the patient requires continued inpatient hospitalization for the following reasons: IV TPN, IV ABX, possibility of GI fistula requiring surgical intervention Quality Stroke Does the patient have a stroke diagnosis?: No VTE Prior VTE?: No VTE Risk Level:: Medical - moderate - high VTE Device Contraindication: N/A - Device Ordered VTE Drug Contraindication: N/A - Med Ordered
--- NOTE | 2022-06-15 14:30 | MHC.CM.PN ---
STILL REQUIRES IV ABX AND MAY NEED SURGICAL INTERVENTION FOR FISTULA. CASE MANAGEMENT STILL FOLLOWING.
--- NOTE | 2022-06-15 14:35 | PM.EVENT ---
Event Note Date of Service: 06/16/22 Event Note: CT reviewed with Dr. Liao-no new collection, no need for additional drain Continue with current drain Explained above to patient and He continues to have more BMs and this flatus Abdomen distended but soft Has been ambulating MARY to bulb suction Continue follow-up output Continue TPN Okay to have sips of clear liquids for now
[2022-06-15 16:36] LABS: Glucose, Whole Blood 183 mg/dL (60-115)
[2022-06-15 20:04] LABS: Glucose, Whole Blood 147 mg/dL (60-115)
[2022-06-15] MEDS: Sertraline HCL 50 MG TABLET 150 MG PO (20:13)
[2022-06-15] MEDS: Atorvastatin Calcium 10 MG TABLET PO (20:14)
[2022-06-15] MEDS: traZODone HCL 50 MG TABLET 150 MG PO (20:14)
[2022-06-16] VITALS (7 sets, daily range): BP systolic 104–132; BP diastolic 60–76; PULSE 89–96; RESP 18–20; TEMP 36.2–37; O2SAT 94–98
[2022-06-16] MEDS: metroNIDAZOLE/NS 500 MG/100 ML PIGGYBACK 100 MG IV ×3 (00:08→16:33)
[2022-06-16] MEDS: 0.9 % Sodium Chloride Flush 3 ML SYRINGE IVFLUSH ×2 (00:08→09:13)
[2022-06-16] MEDS: Fat Emulsions 20% 250 ML 37 ML IV ×2 (00:09→18:00)
[2022-06-16] MEDS: Heparin Sodium,Porcine 5,000 UNIT/ML VIAL 5000 UNIT SUBCUT ×3 (05:11→20:58)
[2022-06-16 07:31] LABS: Glucose, Whole Blood 278 mg/dL (60-115)
[2022-06-16] MEDS: Famotidine/PF 20 MG/2 ML VIAL IVPUSH ×2 (07:58→20:58)
[2022-06-16] MEDS: 0.9 % Sodium Chloride Flush 10 ML SYRINGE 5 ML IVFLUSH ×2 (07:58→21:25)
[2022-06-16] MEDS: busPIRone HCl 5 MG TABLET PO (07:58)
[2022-06-16] MEDS: carvediloL 12.5 MG TABLET PO ×2 (07:58→21:03)
[2022-06-16] MEDS: Insulin Lispro 100 UNIT/ML 3 ML VIAL SUBCUT ×4 (07:59→20:58)
[2022-06-16] MEDS: levoFLOXacin/D5W 500 MG/100 ML PIGGYBACK 100 MG IV (07:59)
[2022-06-16 08:56] LABS: Albumin Level 2.5 g/dL (3.5-5.0); Anion Gap 13 (12-20); Blood Urea Nitrogen 17 mg/dL (9-16); Calcium 8.1 mg/dL (8.4-10.2); Carbon Dioxide 27 mmol/L (22-29); Chloride 104 mmol/L (96-108); Creatinine Clr Calc Pharmacy 96.2; Estimated Glomerular Filt Rate > 60; Glucose Random 298 mg/dL (60-115); Phosphorus 2.8 mg/dL (2.7-4.5); Potassium 4.8 mmol/L (3.3-5.1); Sodium 139 mmol/L (135-145)
[2022-06-16] MEDS: oxyCODONE HCl Immed Release 5 MG TABLET 10 MG PO ×2 (10:46→21:24)
[2022-06-16 11:30] LABS: Glucose, Whole Blood 215 mg/dL (60-115)
--- NOTE | 2022-06-16 11:38 | P.PNGS_ITS ---
Subjective Subjective Date of Service: 06/18/22 Interval history: Denies pain except on drain site Passing flatus and bowel movements No Nausea vomiting Has been ambulating Physical Exam Vital Signs: Vital Signs: Last Vital Signs Temp 97.1 F 06/16/22 11:22 Pulse 89 06/16/22 11:22 Resp 18 06/16/22 11:22 BP 104/60 06/16/22 11:22 Pulse Ox 96 06/16/22 11:22 O2 Del Method 06/16/22 11:22 O2 Flow Rate 2 06/16/22 07:14 Oxygen Flow Rate 2 06/16/22 04:00 BMI result Body Mass Index 38.4 Const: General: comfortable and no acute distress Resp: Effort & Inspection: normal respiratory effort Cardio: Rhythm: regular rhythm GI: Other: Distended, soft, incision well healed, drain in place on the right side, with new bulb suction, output thick greenish Objective Data Active Medications Al Hydroxide/Mg Hydroxide (Magnesium Hydrox/Alum Hydrox 30 Ml Oral.Susp) 30 ml PO Q6H PRN PRN Reason: heartburn Albuterol Sulfate (Albuterol Sulfate (0.042%) 1.25 Mg/3 Ml Vial.Neb) 1.25 mg INHALE RQ6H PRN PRN Reason: shortness of breath Last Admin: 06/07/22 23:46 Dose: 1.25 mg Documented By: STEPHANIE Atorvastatin Calcium (Atorvastatin Calcium 10 Mg Tablet) 10 mg PO BEDTIME [facility] Last Admin: 06/15/22 20:14 Dose: 10 mg Documented By: GOYO Buspirone HCl (Buspirone Hcl 5 Mg Tablet) 5 mg PO DAILY [facility] Last Admin: 06/16/22 07:58 Dose: 5 mg Documented By: NYA Carvedilol (Carvedilol 12.5 Mg Tablet) 12.5 mg PO BID [facility]; Protocol Last Admin: 06/16/22 07:58 Dose: 12.5 mg Documented By: NYA Dextrose (Dextrose 50 % 25 Gm/50 Ml Syringe) 25 gm IVPUSH Q15M PRN; Protocol PRN Reason: per Hypoglycemia Standing Ord. Famotidine (Famotidine/Pf 20 Mg/2 Ml Vial) 20 mg IVPUSH BID [facility] Last Admin: 06/16/22 07:58 Dose: 20 mg Documented By: NYA Glucose (Glucose Gel 15 Gm Gel..Gram.) 15 gm PO Q15M PRN; Protocol PRN Reason: per Hypoglycemia Standing Ord. Heparin Sodium (Porcine) (Heparin Sodium,Porcine 5,000 Unit/Ml Vial) 5,000 unit SUBCUT Q8H [facility] Last Admin: 06/16/22 05:11 Dose: 5,000 unit Documented By: BHAVESH Promethazine HCl 12.5 mg/ (Sodium Chloride) 50.5 mls @ 202 mls/hr IV Q6H PRN PRN Reason: Nausea and Vomiting Acetaminophen (Ofirmev) 1,000 mg in 100 mls @ 400 mls/hr IV Q6H PRN PRN Reason: abdominal pain Last Infusion: 06/07/22 17:16 Dose: 0 mls/hr Documented By: NYA Metronidazole (Flagyl) 500 mg in 100 mls @ 100 mls/hr IV Q8H [facility] Last Infusion: 06/16/22 10:18 Dose: 0 mls/hr Documented By: NYA Levofloxacin (Levaquin) 500 mg in 100 mls @ 100 mls/hr IV Q24H [facility] Last Infusion: 06/16/22 09:00 Dose: 0 mls/hr Documented By: NYA Potassium Chloride 46 meq/Sodium Chloride 50 meq/Magnesium Sulfate 10 meq/Potassium Phosphate 24 mmol/Calcium Gluconate 9.3 meq/Multivitamins 10 ml/ Trace Metals 1 ml/ Amino Acids/Dextrose 2,040 mls @ 85 mls/hr IV DAILY@1800 [facility] Stop: 06/16/22 17:59 Last Admin: 06/15/22 18:02 Dose: 85 mls/hr Documented By: GOYO Potassium Chloride 46 meq/Sodium Chloride 50 meq/Magnesium Sulfate 10 meq/Potassium Phosphate 24 mmol/Calcium Gluconate 9.3 meq/Multivitamins 10 ml/ Trace Metals 1 ml/ Amino Acids/Dextrose 2,040 mls @ 85 mls/hr IV DAILY@1800 [facility] Fat Emulsion Intravenous (Intralipid) 222 mls @ 37 mls/hr IV DAILY@1800 [facility] Stop: 06/16/22 23:59 Fat Emulsion Intravenous (Intralipid) 222 mls @ 37 mls/hr IV DAILY@1800 [facility] Stop: 06/17/22 05:59 Insulin Human Lispro (Insulin Lispro 100 Unit/Ml 3 Ml Vial) 0 unit SUBCUT QIDACHS [facility]; Protocol Last Admin: 06/16/22 07:59 Dose: 10 unit Documented By: NYA Morphine Sulfate (Morphine Sulfate 2 Mg/Ml Cartridge) 2 mg IVPUSH Q3H PRN; Protocol PRN Reason: Pain, Severe (Pain Scale 7-10) Ondansetron HCl (Ondansetron Hcl 4 Mg/2 Ml Vial) 4 mg IVPUSH Q8H PRN PRN Reason: Nausea Last Admin: 06/11/22 23:51 Dose: 4 mg Documented By: SUMEET Oxycodone HCl (Oxycodone Hcl Immed Release 5 Mg Tablet) 10 mg PO Q4H PRN PRN Reason: Pain, Moderate (Pain Scale 4-6 Last Admin: 06/16/22 10:46 Dose: 10 mg Documented By: NYA Sertraline HCl (Sertraline Hcl 50 Mg Tablet) 150 mg PO BEDTIME [facility] Last Admin: 06/15/22 20:13 Dose: 150 mg Documented By: GOYO Simethicone (Simethicone 80 Mg Tab.Chew) 80 mg PO QIDWMHS PRN PRN Reason: gassiness Last Admin: 06/12/22 22:18 Dose: 80 mg Documented By: SUMEET Sodium Chloride (0.9 % Sodium Chloride Flush 3 Ml Syringe) 3 ml IVFLUSH QSHIFT [facility] Last Admin: 06/16/22 09:13 Dose: 3 ml Documented By: NYA Sodium Chloride (0.9 % Sodium Chloride Flush 10 Ml Syringe) 5 ml IVFLUSH TID [facility] Last Admin: 06/16/22 07:58 Dose: 5 ml Documented By: NYA Trazodone HCl (Trazodone Hcl 50 Mg Tablet) 150 mg PO BEDTIME [facility] Last Admin: 06/15/22 20:14 Dose: 150 mg Documented By: GOYO Labs CBC & Chem 7: 06/12/22 07:52 06/18/22 05:07 Labs: Laboratory Results - last 24 hr 06/15/22 06/15/22 06/15/22 13:03 16:25 19:51 Anion Gap Estim Creat Clear Calc Estimated GFR POC Glucose 172 H 183 H 147 H Random Glucose Calcium Phosphorus Magnesium Albumin 06/16/22 06/16/22 06/16/22 07:20 08:01 11:24 Anion Gap 13 Estim Creat Clear Calc 96.2 Estimated GFR > 60 POC Glucose 278 H 215 H Random Glucose 298 H Calcium 8.1 L Phosphorus 2.8 Magnesium 2.0 Albumin 2.5 L Procedures Date of Service Date of Service: 06/16/22 Progress Note: A&P Assessment and plan (1) S/P right colectomy: Status: Acute Assessment and Plan: Repeat CT done yesterday - no new collection Fluid filled bowel loops although air distally Likely ileus Keep drain in place TPN Continue to ambulate Abdomen distended but soft Monitor drain output - patient wants to try food Time Spent With Patient Time: Total time spent is greater than 50% in coordination of care (as documented) at patient's floor/unit and/or counseling patient: Quality Stroke Does the patient have a stroke diagnosis?: No VTE Prior VTE?: No VTE Risk Level:: Medical - moderate - high VTE Device Contraindication: N/A - Device Ordered VTE Drug Contraindication: N/A - Med Ordered
--- NOTE | 2022-06-16 11:38 | HO.PM.IMPN ---
Subjective Subjective Date of Service: 06/16/22 Interval History: having BMs + flatus no dyspnea no cough Review of Systems Review of Systems: Yes all other systems are reviewed and are negative Physical Exam Vital Signs: Vital Signs: Last Vital Signs Temp 97.1 F 06/16/22 11:22 Pulse 89 06/16/22 11:22 Resp 18 06/16/22 11:22 BP 104/60 06/16/22 11:22 Pulse Ox 96 06/16/22 11:22 O2 Del Method 06/16/22 11:22 O2 Flow Rate 2 06/16/22 07:14 Oxygen Flow Rate 2 06/16/22 04:00 BMI result Body Mass Index 38.4 Gen: in no acute distress HEENT: sclera anicteric, moist mucus membranes Neck: supple Lungs: clear to auscultation bilaterally Heart: regular rate and rhythm, no murmurs Abd: soft, non-tender, non-distended, surgical incision healed, pigtail drain with green liquid Ext: no edema Skin: warm/well-perfused Neuro: alert and oriented x3, no focal findings Psych: appropriate affect Objective Data Active Medications Al Hydroxide/Mg Hydroxide (Magnesium Hydrox/Alum Hydrox 30 Ml Oral.Susp) 30 ml PO Q6H PRN PRN Reason: heartburn Albuterol Sulfate (Albuterol Sulfate (0.042%) 1.25 Mg/3 Ml Vial.Neb) 1.25 mg INHALE RQ6H PRN PRN Reason: shortness of breath Last Admin: 06/07/22 23:46 Dose: 1.25 mg Documented By: STEPHANIE Atorvastatin Calcium (Atorvastatin Calcium 10 Mg Tablet) 10 mg PO BEDTIME [facility] Last Admin: 06/15/22 20:14 Dose: 10 mg Documented By: GOYO Buspirone HCl (Buspirone Hcl 5 Mg Tablet) 5 mg PO DAILY [facility] Last Admin: 06/16/22 07:58 Dose: 5 mg Documented By: NYA Carvedilol (Carvedilol 12.5 Mg Tablet) 12.5 mg PO BID [facility]; Protocol Last Admin: 06/16/22 07:58 Dose: 12.5 mg Documented By: NYA Dextrose (Dextrose 50 % 25 Gm/50 Ml Syringe) 25 gm IVPUSH Q15M PRN; Protocol PRN Reason: per Hypoglycemia Standing Ord. Famotidine (Famotidine/Pf 20 Mg/2 Ml Vial) 20 mg IVPUSH BID [facility] Last Admin: 06/16/22 07:58 Dose: 20 mg Documented By: NYA Glucose (Glucose Gel 15 Gm Gel..Gram.) 15 gm PO Q15M PRN; Protocol PRN Reason: per Hypoglycemia Standing Ord. Heparin Sodium (Porcine) (Heparin Sodium,Porcine 5,000 Unit/Ml Vial) 5,000 unit SUBCUT Q8H [facility] Last Admin: 06/16/22 05:11 Dose: 5,000 unit Documented By: BHAVESH Promethazine HCl 12.5 mg/ (Sodium Chloride) 50.5 mls @ 202 mls/hr IV Q6H PRN PRN Reason: Nausea and Vomiting Acetaminophen (Ofirmev) 1,000 mg in 100 mls @ 400 mls/hr IV Q6H PRN PRN Reason: abdominal pain Last Infusion: 06/07/22 17:16 Dose: 0 mls/hr Documented By: NYA Metronidazole (Flagyl) 500 mg in 100 mls @ 100 mls/hr IV Q8H [facility] Last Infusion: 06/16/22 10:18 Dose: 0 mls/hr Documented By: NYA Levofloxacin (Levaquin) 500 mg in 100 mls @ 100 mls/hr IV Q24H [facility] Last Infusion: 06/16/22 09:00 Dose: 0 mls/hr Documented By: NYA Potassium Chloride 46 meq/Sodium Chloride 50 meq/Magnesium Sulfate 10 meq/Potassium Phosphate 24 mmol/Calcium Gluconate 9.3 meq/Multivitamins 10 ml/ Trace Metals 1 ml/ Amino Acids/Dextrose 2,040 mls @ 85 mls/hr IV DAILY@1800 [facility] Stop: 06/16/22 17:59 Last Admin: 06/15/22 18:02 Dose: 85 mls/hr Documented By: GOYO Potassium Chloride 46 meq/Sodium Chloride 50 meq/Magnesium Sulfate 10 meq/Potassium Phosphate 24 mmol/Calcium Gluconate 9.3 meq/Multivitamins 10 ml/ Trace Metals 1 ml/ Amino Acids/Dextrose 2,040 mls @ 85 mls/hr IV DAILY@1800 [facility] Fat Emulsion Intravenous (Intralipid) 222 mls @ 37 mls/hr IV DAILY@1800 [facility] Stop: 06/16/22 23:59 Fat Emulsion Intravenous (Intralipid) 222 mls @ 37 mls/hr IV DAILY@1800 [facility] Stop: 06/17/22 05:59 Insulin Human Lispro (Insulin Lispro 100 Unit/Ml 3 Ml Vial) 0 unit SUBCUT QIDACHS [facility]; Protocol Last Admin: 06/16/22 07:59 Dose: 10 unit Documented By: NYA Morphine Sulfate (Morphine Sulfate 2 Mg/Ml Cartridge) 2 mg IVPUSH Q3H PRN; Protocol PRN Reason: Pain, Severe (Pain Scale 7-10) Ondansetron HCl (Ondansetron Hcl 4 Mg/2 Ml Vial) 4 mg IVPUSH Q8H PRN PRN Reason: Nausea Last Admin: 06/11/22 23:51 Dose: 4 mg Documented By: SUMEET Oxycodone HCl (Oxycodone Hcl Immed Release 5 Mg Tablet) 10 mg PO Q4H PRN PRN Reason: Pain, Moderate (Pain Scale 4-6 Last Admin: 06/16/22 10:46 Dose: 10 mg Documented By: NYA Sertraline HCl (Sertraline Hcl 50 Mg Tablet) 150 mg PO BEDTIME [facility] Last Admin: 06/15/22 20:13 Dose: 150 mg Documented By: GOYO Simethicone (Simethicone 80 Mg Tab.Chew) 80 mg PO QIDWMHS PRN PRN Reason: gassiness Last Admin: 06/12/22 22:18 Dose: 80 mg Documented By: SUMEET Sodium Chloride (0.9 % Sodium Chloride Flush 3 Ml Syringe) 3 ml IVFLUSH QSHIFT [facility] Last Admin: 06/16/22 09:13 Dose: 3 ml Documented By: NYA Sodium Chloride (0.9 % Sodium Chloride Flush 10 Ml Syringe) 5 ml IVFLUSH TID [facility] Last Admin: 06/16/22 07:58 Dose: 5 ml Documented By: NYA Trazodone HCl (Trazodone Hcl 50 Mg Tablet) 150 mg PO BEDTIME [facility] Last Admin: 06/15/22 20:14 Dose: 150 mg Documented By: GOYO Labs CBC & Chem 7: 06/12/22 07:52 06/16/22 08:01 Labs: Laboratory Results - last 24 hr 06/15/22 06/15/22 06/15/22 13:03 16:25 19:51 Anion Gap Estim Creat Clear Calc Estimated GFR POC Glucose 172 H 183 H 147 H Random Glucose Calcium Phosphorus Magnesium Albumin 06/16/22 06/16/22 06/16/22 07:20 08:01 11:24 Anion Gap 13 Estim Creat Clear Calc 96.2 Estimated GFR > 60 POC Glucose 278 H 215 H Random Glucose 298 H Calcium 8.1 L Phosphorus 2.8 Magnesium 2.0 Albumin 2.5 L Assessment and Plan (1) Intra-abdominal abscess: Status: Acute (2) JENNIFER (acute kidney injury): Status: Acute Plan d#16 56yo M with HTN, DM, KYM on CPAP, morbid obesity, migraines, depression admitted to General Surgery for resection of appendiceal adenoCA medicine consulted for management of DM and HTN # 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 Cultures grew Bacteroides fragilis, PCN/AMP-resistant; changed pip-glen to levofloxacin + metronidazole d#3 - continue TPN via PICC, sips of clear liquids OK per Surgery - encourage OOB/ambulation, IS - repeat CT yesterday- no new collection, no additional drain needed # gastritis - continue IV H2RA # acute hypercarbic/hypoxic resp failure # KYM - continue nocturnal CPAP, IS, ambulation - PNA treated with 5d of azithromycin, now on levofloxacin as above - wean suppl O2 as tolerated - cardiac workup negative # hypoK - resolved, continue TPN # JENNIFER - resolved s/p IV fluids # thrombocytopenia - resolved # DM2 - increase correction dose of lispro # HTN - continue carvedilol; held HCTZ + losartan due to JENNIFER # HLD - continue statin # mood disorder - continue sertraline, buspirone, trazodone # smudge cells on CBC - no lymphocytosis or leukocytosis; outpt Heme f/u # obesity - weight loss counseling # VTE ppx: UFH In my clinical judgment, the patient requires continued inpatient hospitalization for the following reasons: IV TPN, IV ABX, possibility of GI fistula requiring surgical intervention Quality Stroke Does the patient have a stroke diagnosis?: No VTE Prior VTE?: No VTE Risk Level:: Medical - moderate - high VTE Device Contraindication: N/A - Device Ordered VTE Drug Contraindication: N/A - Med Ordered
--- NOTE | 2022-06-16 14:43 | PM.EVENT ---
Event Note Date of Service: 06/18/22 Event Note: Ambulating more Passing good flatus and BMs Asking for better food Drain with similar output Abdomen soft Continue TPN
[2022-06-16 15:50] LABS: Glucose, Whole Blood 179 mg/dL (60-115)
--- NOTE | 2022-06-16 19:15 | PC.NURSE ---
Staple removed today. Pt reported bleeding at bottom of incision. w/ about a 1/2 cm space. MD Norton notified @ 15:50. Stated this was expected post suture removal. Bande aide applied.
[2022-06-16 20:41] LABS: Glucose, Whole Blood 194 mg/dL (60-115)
[2022-06-16] MEDS: traZODone HCL 50 MG TABLET 150 MG PO (21:03)
[2022-06-16] MEDS: Atorvastatin Calcium 10 MG TABLET PO (21:03)
[2022-06-16] MEDS: Sertraline HCL 50 MG TABLET 150 MG PO (21:03)
[2022-06-17] VITALS: BP 101/60; PULSE 83; RESP 14; TEMP 36.2; O2SAT 94
[2022-06-17] MEDS: metroNIDAZOLE/NS 500 MG/100 ML PIGGYBACK 100 MG IV ×3 (00:15→16:03)
[2022-06-17] MEDS: 0.9 % Sodium Chloride Flush 3 ML SYRINGE IVFLUSH ×3 (00:15→16:09)
[2022-06-17] MEDS: Fat Emulsions 20% 250 ML 37 ML IV ×2 (00:16→18:43)
[2022-06-17] MEDS: Heparin Sodium,Porcine 5,000 UNIT/ML VIAL 5000 UNIT SUBCUT ×3 (05:55→21:43)
[2022-06-17 07:25] LABS: Glucose, Whole Blood 256 mg/dL (60-115)
[2022-06-17 07:59] VITALS: BP 118/57; PULSE 92; RESP 17; TEMP 36.1; O2SAT 99
[2022-06-17] MEDS: levoFLOXacin/D5W 500 MG/100 ML PIGGYBACK 100 MG IV (08:01)
[2022-06-17] MEDS: Insulin Lispro 100 UNIT/ML 3 ML VIAL SUBCUT ×4 (08:01→21:43)
[2022-06-17] MEDS: busPIRone HCl 5 MG TABLET PO (08:02)
[2022-06-17] MEDS: carvediloL 12.5 MG TABLET PO ×2 (08:02→21:42)
[2022-06-17] MEDS: Famotidine/PF 20 MG/2 ML VIAL IVPUSH ×2 (08:02→21:43)
--- NOTE | 2022-06-17 08:42 | PM.PNGS ---
Subjective Subjective Date of Service: 06/17/22 <Bertha Fernandez PA-C - Last Filed: 06/17/22 08:52> 06/18/22 <Lit Norton MD - Last Filed: 06/18/22 14:23> Interval history: Feels much better this morning. Passing flatus and continues to have small, soft stools. Tolerating sips of liquids and asking for pudding. Has been OOB and ambulating the halls more, every 2 hrs per . <Bertha Fernandez PA-C - Last Filed: 06/17/22 08:52> Physical Exam Vital Signs: Vital Signs: Last Vital Signs Temp 97.0 F 06/17/22 07:59 Pulse 92 06/17/22 07:59 Resp 17 06/17/22 07:59 BP 118/57 L 06/17/22 07:59 Pulse Ox 99 06/17/22 07:59 O2 Del Method 06/17/22 07:59 O2 Flow Rate 2 06/16/22 07:14 Oxygen Flow Rate 2 06/17/22 04:00 BMI result Body Mass Index 38.4 <Bertha Fernandez PA-C - Last Filed: 06/17/22 08:52> Const: General: comfortable, no acute distress and alert <YESENIA Wilson Last Filed: 06/17/22 08:52> Orientation/consciousness: patient oriented x3 <Bertha Fernandez PA-C - Last Filed: 06/17/22 08:52> Resp: Effort & Inspection: normal respiratory effort <YESENIA Wilson Last Filed: 06/17/22 08:52> GI: Inspection: Yes distended and Yes incision (small opening at inferior aspect, no drainage) <YESENIA Wilson Last Filed: 06/17/22 08:52> Palpation (GI): Soft to palpation, Tenderness to palpation present (GI) (mild, right sided ), no guarding and not rigid <YESENIA Wilson Last Filed: 06/17/22 08:52> Percussion: Yes tympanic to percussion <YESENIA Wilson Last Filed: 06/17/22 08:52> Skin: General skin exam: no rashes or lesions noted <Bertha Fernandez PA-C - Last Filed: 06/17/22 08:52> Neuro: General: patient oriented x3 and moves all extremities <Bertha Fernandez PA-C - Last Filed: 06/17/22 08:52> Extrem: General: Yes no clubbing, cyanosis or edema <Bertha Fernandez PA-C - Last Filed: 06/17/22 08:52> Objective Data Active Medications Al Hydroxide/Mg Hydroxide (Magnesium Hydrox/Alum Hydrox 30 Ml Oral.Susp) 30 ml PO Q6H PRN PRN Reason: heartburn Albuterol Sulfate (Albuterol Sulfate (0.042%) 1.25 Mg/3 Ml Vial.Neb) 1.25 mg INHALE RQ6H PRN PRN Reason: shortness of breath Last Admin: 06/07/22 23:46 Dose: 1.25 mg Documented By: STEPHANIE Atorvastatin Calcium (Atorvastatin Calcium 10 Mg Tablet) 10 mg PO BEDTIME [facility] Last Admin: 06/16/22 21:03 Dose: 10 mg Documented By: BHAVESH Buspirone HCl (Buspirone Hcl 5 Mg Tablet) 5 mg PO DAILY [facility] Last Admin: 06/17/22 08:02 Dose: 5 mg Documented By: NYA Carvedilol (Carvedilol 12.5 Mg Tablet) 12.5 mg PO BID [facility]; Protocol Last Admin: 06/17/22 08:02 Dose: 12.5 mg Documented By: NYA Dextrose (Dextrose 50 % 25 Gm/50 Ml Syringe) 25 gm IVPUSH Q15M PRN; Protocol PRN Reason: per Hypoglycemia Standing Ord. Famotidine (Famotidine/Pf 20 Mg/2 Ml Vial) 20 mg IVPUSH BID [facility] Last Admin: 06/17/22 08:02 Dose: 20 mg Documented By: NYA Glucose (Glucose Gel 15 Gm Gel..Gram.) 15 gm PO Q15M PRN; Protocol PRN Reason: per Hypoglycemia Standing Ord. Heparin Sodium (Porcine) (Heparin Sodium,Porcine 5,000 Unit/Ml Vial) 5,000 unit SUBCUT Q8H [facility] Last Admin: 06/17/22 05:55 Dose: 5,000 unit Documented By: BHAVESH Promethazine HCl 12.5 mg/ (Sodium Chloride) 50.5 mls @ 202 mls/hr IV Q6H PRN PRN Reason: Nausea and Vomiting Acetaminophen (Ofirmev) 1,000 mg in 100 mls @ 400 mls/hr IV Q6H PRN PRN Reason: abdominal pain Last Infusion: 06/07/22 17:16 Dose: 0 mls/hr Documented By: NYA Metronidazole (Flagyl) 500 mg in 100 mls @ 100 mls/hr IV Q8H [facility] Last Infusion: 06/17/22 01:15 Dose: 0 mls/hr Documented By: BHAVESH Levofloxacin (Levaquin) 500 mg in 100 mls @ 100 mls/hr IV Q24H [facility] Last Admin: 06/17/22 08:01 Dose: 100 mls/hr Documented By: NYA Potassium Chloride 46 meq/Sodium Chloride 50 meq/Magnesium Sulfate 10 meq/Potassium Phosphate 24 mmol/Calcium Gluconate 9.3 meq/Multivitamins 10 ml/ Trace Metals 1 ml/ Amino Acids/Dextrose 2,040 mls @ 85 mls/hr IV DAILY@1800 [facility] Stop: 06/17/22 17:59 Last Admin: 06/16/22 18:00 Dose: 85 mls/hr Documented By: NYA Insulin Human Lispro (Insulin Lispro 100 Unit/Ml 3 Ml Vial) 0 unit SUBCUT QIDACHS [facility]; Protocol Last Admin: 06/17/22 08:01 Dose: 10 unit Documented By: NYA Morphine Sulfate (Morphine Sulfate 2 Mg/Ml Cartridge) 2 mg IVPUSH Q3H PRN; Protocol PRN Reason: Pain, Severe (Pain Scale 7-10) Ondansetron HCl (Ondansetron Hcl 4 Mg/2 Ml Vial) 4 mg IVPUSH Q8H PRN PRN Reason: Nausea Last Admin: 06/11/22 23:51 Dose: 4 mg Documented By: SUMEET Oxycodone HCl (Oxycodone Hcl Immed Release 5 Mg Tablet) 10 mg PO Q4H PRN PRN Reason: Pain, Moderate (Pain Scale 4-6 Last Admin: 06/16/22 21:24 Dose: 10 mg Documented By: BHAVESH Sertraline HCl (Sertraline Hcl 50 Mg Tablet) 150 mg PO BEDTIME [facility] Last Admin: 06/16/22 21:03 Dose: 150 mg Documented By: BHAVESH Simethicone (Simethicone 80 Mg Tab.Chew) 80 mg PO QIDWMHS PRN PRN Reason: gassiness Last Admin: 06/12/22 22:18 Dose: 80 mg Documented By: SIMRANORALB Sodium Chloride (0.9 % Sodium Chloride Flush 3 Ml Syringe) 3 ml IVFLUSH QSHIFT [facility] Last Admin: 06/17/22 00:15 Dose: 3 ml Documented By: BHAVESH Sodium Chloride (0.9 % Sodium Chloride Flush 10 Ml Syringe) 5 ml IVFLUSH TID [facility] Last Admin: 06/16/22 21:25 Dose: 5 ml Documented By: BHAVESH Trazodone HCl (Trazodone Hcl 50 Mg Tablet) 150 mg PO BEDTIME [facility] Last Admin: 06/16/22 21:03 Dose: 150 mg Documented By: BHAVESH <Bertha Fernandez PA-C - Last Filed: 06/17/22 08:52> Labs CBC & Chem 7: : 06/12/22 07:52 06/18/22 05:07 <Bertha Fernandez PA-C - Last Filed: 06/17/22 08:52> Labs: Laboratory Results - last 24 hr 06/16/22 06/16/22 06/16/22 08:01 11:24 15:33 Anion Gap 13 Estim Creat Clear Calc 96.2 Estimated GFR > 60 POC Glucose 215 H 179 H Random Glucose 298 H Calcium 8.1 L Phosphorus 2.8 Magnesium 2.0 Albumin 2.5 L 06/16/22 06/17/22 20:37 07:18 Anion Gap Estim Creat Clear Calc Estimated GFR POC Glucose 194 H 256 H Random Glucose Calcium Phosphorus Magnesium Albumin <Bertha Fernandez PA-C - Last Filed: 06/17/22 08:52> Procedures Date of Service Date of Service: 06/17/22 <Bertha Fernandez PA-C - Last Filed: 06/17/22 08:52> Progress Note: A&P Assessment and plan (1) Intra-abdominal abscess: Status: Acute <Bertha Fernandez PA-C - Last Filed: 06/17/22 08:52> Assessment and Plan: has been ambulating a lot passing flatus and BMs looks well abdomen distended but soft Okay to have sips of clear liquids MARY drain still with significant output this is being treated as a controlled fistula at this time continue TPN seen and examined independently - agree with MEHREEN Fernandez <Lit Norton MD - Last Filed: 06/18/22 14:23> (2) S/P right colectomy: Status: Acute <Bertha Fernandez PA-C - Last Filed: 06/17/22 08:52> Assessment and Plan: 56 year old male who is over 2 weeks s/p right colectomy for right colon adenoCA. Post op course complicated by post op ileus, intraabdominal collection, respiratory distress. He is s/p IR drainage last week. Repeat CT scan on 06/15/22 showed no new collection but residual fluid aspirated and MARY drain left. Fluid filled bowel loops although air distally, likely ileus. He is making progress, albiet slowly. Continues to pass flatus and move bowels. Abd remains significantly distended and tympanitic but slowly decreasing. MARY continues with high enteric appearing output. Continue IV levaquin/flagyl. Cont TPN, PICC line. Encouraged OOB/ambulation of halls 4x per day and IS use. Will advance to clear liquids today. Hospitalists following. Appreciate input. <Bertha Fernandez PA-C - Last Filed: 06/17/22 08:52> Time Spent With Patient Time: Total time spent is greater than 50% in coordination of care (as documented) at patient's floor/unit and/or counseling patient: <Bertha Fernandez PA-C - Last Filed: 06/17/22 08:52> Quality Stroke Does the patient have a stroke diagnosis?: No <Bertha Fernandez PA-C - Last Filed: 06/17/22 08:52> VTE Prior VTE?: No <Bertha Fernandez PA-C - Last Filed: 06/17/22 08:52> VTE Risk Level:: Medical - moderate - high <Bertha Fernandez PA-C - Last Filed: 06/17/22 08:52> VTE Device Contraindication: N/A - Device Ordered <Bertha Fernandez PA-C - Last Filed: 06/17/22 08:52> VTE Drug Contraindication: N/A - Med Ordered <Bertha Fernandez PA-C - Last Filed: 06/17/22 08:52>
[2022-06-17] MEDS: 0.9 % Sodium Chloride Flush 10 ML SYRINGE 5 ML IVFLUSH ×2 (09:09→16:04)
--- NOTE | 2022-06-17 09:54 | P.PNIM_ITS ---
Subjective Subjective Date of Service: 06/17/22 Interval History: no breathing issues using CPAP at night no fever abd pain controlled Review of Systems Review of Systems: Yes all other systems are reviewed and are negative Physical Exam Vital Signs: Vital Signs: Last Vital Signs Temp 97.0 F 06/17/22 07:59 Pulse 92 06/17/22 07:59 Resp 17 06/17/22 07:59 BP 118/57 L 06/17/22 07:59 Pulse Ox 99 06/17/22 07:59 O2 Del Method 06/17/22 07:59 O2 Flow Rate 2 06/16/22 07:14 Oxygen Flow Rate 2 06/17/22 04:00 BMI result Body Mass Index 38.4 Gen: in no acute distress HEENT: sclera anicteric, moist mucus membranes Neck: supple Lungs: clear to auscultation bilaterally Heart: regular rate and rhythm, no murmurs Abd: soft, non-tender, somewhat distended, surgical incision healed, pigtail drain with green liquid Ext: no edema Skin: warm/well-perfused Neuro: alert and oriented x3, no focal findings Psych: appropriate affect Objective Data Active Medications Al Hydroxide/Mg Hydroxide (Magnesium Hydrox/Alum Hydrox 30 Ml Oral.Susp) 30 ml PO Q6H PRN PRN Reason: heartburn Albuterol Sulfate (Albuterol Sulfate (0.042%) 1.25 Mg/3 Ml Vial.Neb) 1.25 mg INHALE RQ6H PRN PRN Reason: shortness of breath Last Admin: 06/07/22 23:46 Dose: 1.25 mg Documented By: STEPHANIE Atorvastatin Calcium (Atorvastatin Calcium 10 Mg Tablet) 10 mg PO BEDTIME [facility] Last Admin: 06/16/22 21:03 Dose: 10 mg Documented By: BHAVESH Buspirone HCl (Buspirone Hcl 5 Mg Tablet) 5 mg PO DAILY [facility] Last Admin: 06/17/22 08:02 Dose: 5 mg Documented By: NYA Carvedilol (Carvedilol 12.5 Mg Tablet) 12.5 mg PO BID [facility]; Protocol Last Admin: 06/17/22 08:02 Dose: 12.5 mg Documented By: NYA Dextrose (Dextrose 50 % 25 Gm/50 Ml Syringe) 25 gm IVPUSH Q15M PRN; Protocol PRN Reason: per Hypoglycemia Standing Ord. Famotidine (Famotidine/Pf 20 Mg/2 Ml Vial) 20 mg IVPUSH BID [facility] Last Admin: 06/17/22 08:02 Dose: 20 mg Documented By: NYA Glucose (Glucose Gel 15 Gm Gel..Gram.) 15 gm PO Q15M PRN; Protocol PRN Reason: per Hypoglycemia Standing Ord. Heparin Sodium (Porcine) (Heparin Sodium,Porcine 5,000 Unit/Ml Vial) 5,000 unit SUBCUT Q8H [facility] Last Admin: 06/17/22 05:55 Dose: 5,000 unit Documented By: BHAVESH Promethazine HCl 12.5 mg/ (Sodium Chloride) 50.5 mls @ 202 mls/hr IV Q6H PRN PRN Reason: Nausea and Vomiting Acetaminophen (Ofirmev) 1,000 mg in 100 mls @ 400 mls/hr IV Q6H PRN PRN Reason: abdominal pain Last Infusion: 06/07/22 17:16 Dose: 0 mls/hr Documented By: NYA Metronidazole (Flagyl) 500 mg in 100 mls @ 100 mls/hr IV Q8H [facility] Last Admin: 06/17/22 09:06 Dose: 100 mls/hr Documented By: NYA Levofloxacin (Levaquin) 500 mg in 100 mls @ 100 mls/hr IV Q24H [facility] Last Infusion: 06/17/22 09:20 Dose: 0 mls/hr Documented By: NYA Potassium Chloride 46 meq/Sodium Chloride 50 meq/Magnesium Sulfate 10 meq/Potassium Phosphate 24 mmol/Calcium Gluconate 9.3 meq/Multivitamins 10 ml/ Trace Metals 1 ml/ Amino Acids/Dextrose 2,040 mls @ 85 mls/hr IV DAILY@1800 [facility] Stop: 06/17/22 17:59 Last Admin: 06/16/22 18:00 Dose: 85 mls/hr Documented By: NYA Insulin Human Lispro (Insulin Lispro 100 Unit/Ml 3 Ml Vial) 0 unit SUBCUT QIDACHS [facility]; Protocol Last Admin: 06/17/22 08:01 Dose: 10 unit Documented By: NYA Morphine Sulfate (Morphine Sulfate 2 Mg/Ml Cartridge) 2 mg IVPUSH Q3H PRN; Protocol PRN Reason: Pain, Severe (Pain Scale 7-10) Ondansetron HCl (Ondansetron Hcl 4 Mg/2 Ml Vial) 4 mg IVPUSH Q8H PRN PRN Reason: Nausea Last Admin: 06/11/22 23:51 Dose: 4 mg Documented By: SUMEET Oxycodone HCl (Oxycodone Hcl Immed Release 5 Mg Tablet) 10 mg PO Q4H PRN PRN Reason: Pain, Moderate (Pain Scale 4-6 Last Admin: 06/16/22 21:24 Dose: 10 mg Documented By: BHAVESH Sertraline HCl (Sertraline Hcl 50 Mg Tablet) 150 mg PO BEDTIME [facility] Last Admin: 06/16/22 21:03 Dose: 150 mg Documented By: BHAVESH Simethicone (Simethicone 80 Mg Tab.Chew) 80 mg PO QIDWMHS PRN PRN Reason: gassiness Last Admin: 06/12/22 22:18 Dose: 80 mg Documented By: SUMEET Sodium Chloride (0.9 % Sodium Chloride Flush 3 Ml Syringe) 3 ml IVFLUSH QSHIFT [facility] Last Admin: 06/17/22 09:06 Dose: 3 ml Documented By: NYA Sodium Chloride (0.9 % Sodium Chloride Flush 10 Ml Syringe) 5 ml IVFLUSH TID [facility] Last Admin: 06/17/22 09:09 Dose: 5 ml Documented By: NYA Trazodone HCl (Trazodone Hcl 50 Mg Tablet) 150 mg PO BEDTIME [facility] Last Admin: 06/16/22 21:03 Dose: 150 mg Documented By: BHAVESH Labs CBC & Chem 7: 06/12/22 07:52 06/16/22 08:01 Labs: Laboratory Results - last 24 hr 06/16/22 06/16/22 06/16/22 11:24 15:33 20:37 POC Glucose 215 H 179 H 194 H 06/17/22 07:18 POC Glucose 256 H Assessment and Plan (1) Intra-abdominal abscess: Status: Acute (2) JENNIFER (acute kidney injury): Status: Acute Plan d#17 56yo M with HTN, DM, KYM on CPAP, morbid obesity, migraines, depression admitted to General Surgery for resection of appendiceal adenoCA medicine consulted for management of DM and HTN # 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 Cultures grew Bacteroides fragilis, PCN/AMP-resistant; changed pip-glen to levofloxacin + metronidazole d#4 - continue TPN via PICC, advance to CLD today per Gen Surg - encourage OOB/ambulation, IS - repeat CT 06/14- no new collection, no additional drain needed # gastritis - continue IV H2RA # acute hypercarbic/hypoxic resp failure # KYM - continue nocturnal CPAP, IS, ambulation - PNA treated with 5d of azithromycin, now on levofloxacin as above - wean suppl O2 as tolerated - cardiac workup negative # hypoK - resolved, continue TPN # JENNIFER - resolved s/p IV fluids # thrombocytopenia - resolved # DM2 - increased correction dose of lispro # HTN - continue carvedilol; held HCTZ + losartan due to JENNIFER; BP normal # HLD - continue statin # mood disorder - continue sertraline, buspirone, trazodone # smudge cells on CBC - no lymphocytosis or leukocytosis; outpt Heme f/u # obesity - weight loss counseling # VTE ppx: UFH In my clinical judgment, the patient requires continued inpatient hospitalization for the following reasons: IV TPN, IV ABX, possibility of GI fistula requiring surgical intervention Quality Stroke Does the patient have a stroke diagnosis?: No VTE Prior VTE?: No VTE Risk Level:: Medical - moderate - high VTE Device Contraindication: N/A - Device Ordered VTE Drug Contraindication: N/A - Med Ordered
[2022-06-17 10:28] LABS: Anion Gap 14 (12-20); Blood Urea Nitrogen 15 mg/dL (9-16); Calcium 8.2 mg/dL (8.4-10.2); Carbon Dioxide 27 mmol/L (22-29); Chloride 105 mmol/L (96-108); Creatinine Clr Calc Pharmacy 112.3; Estimated Glomerular Filt Rate > 60; Glucose Random 254 mg/dL (60-115); Magnesium 1.9 mg/dL (1.6-2.6); Phosphorus 2.5 mg/dL (2.7-4.5); Potassium 4.7 mmol/L (3.3-5.1); Sodium 141 mmol/L (135-145)
[2022-06-17 11:21] LABS: Glucose, Whole Blood 210 mg/dL (60-115)
[2022-06-17 11:38] VITALS: BP 100/50; PULSE 84; RESP 15; TEMP 36.6; O2SAT 96
[2022-06-17 15:33] VITALS: BP 114/70; PULSE 78; RESP 18; TEMP 37.1; O2SAT 96
[2022-06-17 16:02] LABS: Glucose, Whole Blood 199 mg/dL (60-115)
[2022-06-17 19:26] VITALS: BP 116/75; PULSE 88; RESP 20; TEMP 36.6; O2SAT 98
[2022-06-17 19:50] LABS: Glucose, Whole Blood 171 mg/dL (60-115)
[2022-06-17] MEDS: traZODone HCL 50 MG TABLET 150 MG PO (21:42)
[2022-06-17] MEDS: Atorvastatin Calcium 10 MG TABLET PO (21:42)
[2022-06-17] MEDS: Sertraline HCL 50 MG TABLET 150 MG PO (21:42)
[2022-06-17 23:46] VITALS: BP 110/55; PULSE 75; RESP 20; TEMP 36.2; O2SAT 96
[2022-06-18] MEDS: Magnesium Hydrox/Alum Hydrox 30 ML ORAL.SUSP PO (00:37)
[2022-06-18] MEDS: 0.9 % Sodium Chloride Flush 3 ML SYRINGE IVFLUSH ×4 (00:37→22:10)
[2022-06-18] MEDS: 0.9 % Sodium Chloride Flush 10 ML SYRINGE 5 ML IVFLUSH ×3 (00:37→22:10)
[2022-06-18] MEDS: metroNIDAZOLE/NS 500 MG/100 ML PIGGYBACK 100 MG IV ×3 (00:37→16:53)
[2022-06-18 03:51] VITALS: BP 121/71; PULSE 80; RESP 18; TEMP 36.2; O2SAT 93
[2022-06-18] MEDS: Heparin Sodium,Porcine 5,000 UNIT/ML VIAL 5000 UNIT SUBCUT ×3 (05:24→22:10)
[2022-06-18 06:41] LABS: Anion Gap 13 (12-20); Blood Urea Nitrogen 14 mg/dL (9-16); Calcium 7.9 mg/dL (8.4-10.2); Carbon Dioxide 26 mmol/L (22-29); Chloride 107 mmol/L (96-108); Creatinine Clr Calc Pharmacy 113.5; Estimated Glomerular Filt Rate > 60; Glucose Random 247 mg/dL (60-115); Potassium 5.2 mmol/L (3.3-5.1); Sodium 141 mmol/L (135-145)
[2022-06-18 07:33] VITALS: BP 103/58; PULSE 70; RESP 18; TEMP 36.1; O2SAT 96
[2022-06-18 07:53] LABS: Glucose, Whole Blood 200 mg/dL (60-115)
[2022-06-18 07:57] LABS: Albumin Level 2.3 g/dL (3.5-5.0); Magnesium 1.9 mg/dL (1.6-2.6); Phosphorus 3.4 mg/dL (2.7-4.5)
[2022-06-18] MEDS: busPIRone HCl 5 MG TABLET PO (08:42)
[2022-06-18] MEDS: carvediloL 12.5 MG TABLET PO ×2 (08:42→22:09)
[2022-06-18] MEDS: Famotidine/PF 20 MG/2 ML VIAL IVPUSH ×2 (08:43→22:10)
[2022-06-18] MEDS: Insulin Lispro 100 UNIT/ML 3 ML VIAL SUBCUT ×4 (08:48→22:09)
[2022-06-18] MEDS: levoFLOXacin/D5W 500 MG/100 ML PIGGYBACK 100 MG IV (08:49)
--- NOTE | 2022-06-18 09:08 | P.PNGS_ITS ---
Subjective Subjective Date of Service: 06/18/22 <Bertha Fernandez PA-C - Last Filed: 06/18/22 14:52> 06/18/22 <Lit Norton MD - Last Filed: 06/18/22 14:22> Interval history: Had bloating after starting liquids yesterday. Has been OOB and ambulating. Developed more liquidy stools yesterday. <Bertha Fernandez PA-C - Last Filed: 06/18/22 14:52> Physical Exam Vital Signs: Vital Signs: Last Vital Signs Temp 97.0 F 06/18/22 07:33 Pulse 70 06/18/22 07:33 Resp 18 06/18/22 07:33 BP 103/58 L 06/18/22 07:33 Pulse Ox 96 06/18/22 07:33 O2 Del Method 06/18/22 07:33 O2 Flow Rate 2 06/17/22 23:46 Oxygen Flow Rate 2 06/17/22 04:00 BMI result Body Mass Index 38.4 <Bertha Fernandez PA-C - Last Filed: 06/18/22 14:52> Const: General: comfortable, no acute distress and alert <Bertha Fernandez PA-C - Last Filed: 06/18/22 14:52> Orientation/consciousness: patient oriented x3 <Bertha Fernandez PA-C - Last Filed: 06/18/22 14:52> Resp: Effort & Inspection: normal respiratory effort <Bertha Fernandez PA-C - Last Filed: 06/18/22 14:52> GI: Inspection: Yes distended (remains signficant and increased this am) and Yes incision (clean, small opening to distal aspect ) <Bertha Fernandez PA-C - Last Filed: 06/18/22 14:52> Palpation (GI): Soft to palpation, no guarding and not rigid <YESENIA Wilson Last Filed: 06/18/22 14:52> Percussion: Yes tympanic to percussion <Bertha Fernandez PA-C - Last Filed: 06/18/22 14:52> Skin: General skin exam: no rashes or lesions noted <Bertha Fernandez PA-C - Last Filed: 06/18/22 14:52> Neuro: General: patient oriented x3 <Bertha Fernandez PA-C - Last Filed: 06/18/22 14:52> Extrem: General: Yes no clubbing, cyanosis or edema <Bertha Fernandez PA-C - Last Filed: 06/18/22 14:52> Objective Data Active Medications Al Hydroxide/Mg Hydroxide (Magnesium Hydrox/Alum Hydrox 30 Ml Oral.Susp) 30 ml PO Q6H PRN PRN Reason: heartburn Last Admin: 06/18/22 00:37 Dose: 30 ml Documented By: PETEY Albuterol Sulfate (Albuterol Sulfate (0.042%) 1.25 Mg/3 Ml Vial.Neb) 1.25 mg INHALE RQ6H PRN PRN Reason: shortness of breath Last Admin: 06/07/22 23:46 Dose: 1.25 mg Documented By: STEPHANIE Atorvastatin Calcium (Atorvastatin Calcium 10 Mg Tablet) 10 mg PO BEDTIME [facility] Last Admin: 06/17/22 21:42 Dose: 10 mg Documented By: PETEY Buspirone HCl (Buspirone Hcl 5 Mg Tablet) 5 mg PO DAILY [facility] Last Admin: 06/18/22 08:42 Dose: 5 mg Documented By: KENYA Carvedilol (Carvedilol 12.5 Mg Tablet) 12.5 mg PO BID [facility]; Protocol Last Admin: 06/18/22 08:42 Dose: 12.5 mg Documented By: KENYA Dextrose (Dextrose 50 % 25 Gm/50 Ml Syringe) 25 gm IVPUSH Q15M PRN; Protocol PRN Reason: per Hypoglycemia Standing Ord. Famotidine (Famotidine/Pf 20 Mg/2 Ml Vial) 20 mg IVPUSH BID [facility] Last Admin: 06/18/22 08:43 Dose: 20 mg Documented By: KENYA Glucose (Glucose Gel 15 Gm Gel..Gram.) 15 gm PO Q15M PRN; Protocol PRN Reason: per Hypoglycemia Standing Ord. Heparin Sodium (Porcine) (Heparin Sodium,Porcine 5,000 Unit/Ml Vial) 5,000 unit SUBCUT Q8H [facility] Last Admin: 06/18/22 05:24 Dose: 5,000 unit Documented By: PETEY Promethazine HCl 12.5 mg/ (Sodium Chloride) 50.5 mls @ 202 mls/hr IV Q6H PRN PRN Reason: Nausea and Vomiting Acetaminophen (Ofirmev) 1,000 mg in 100 mls @ 400 mls/hr IV Q6H PRN PRN Reason: abdominal pain Last Infusion: 06/07/22 17:16 Dose: 0 mls/hr Documented By: NYA Metronidazole (Flagyl) 500 mg in 100 mls @ 100 mls/hr IV Q8H [facility] Last Infusion: 06/18/22 01:54 Dose: 0 mls/hr Documented By: PETEY Levofloxacin (Levaquin) 500 mg in 100 mls @ 100 mls/hr IV Q24H [facility] Last Admin: 06/18/22 08:49 Dose: 100 mls/hr Documented By: KENYA Potassium Chloride 40 meq/Sodium Chloride 50 meq/Magnesium Sulfate 10 meq/Potassium Phosphate 30 mmol/Calcium Gluconate 9.3 meq/Multivitamins 10 ml/ Trace Metals 1 ml/ Amino Acids/Dextrose 2,040 mls @ 85 mls/hr IV DAILY@1800 [facility] Stop: 06/18/22 17:59 Last Admin: 06/17/22 18:42 Dose: 85 mls/hr Documented By: BHAVESH Insulin Human Lispro (Insulin Lispro 100 Unit/Ml 3 Ml Vial) 0 unit SUBCUT QIDACHS [facility]; Protocol Last Admin: 06/18/22 08:48 Dose: 4 unit Documented By: KENYA Morphine Sulfate (Morphine Sulfate 2 Mg/Ml Cartridge) 2 mg IVPUSH Q3H PRN; Protocol PRN Reason: Pain, Severe (Pain Scale 7-10) Ondansetron HCl (Ondansetron Hcl 4 Mg/2 Ml Vial) 4 mg IVPUSH Q8H PRN PRN Reason: Nausea Last Admin: 06/11/22 23:51 Dose: 4 mg Documented By: SUMEET Oxycodone HCl (Oxycodone Hcl Immed Release 5 Mg Tablet) 10 mg PO Q4H PRN PRN Reason: Pain, Moderate (Pain Scale 4-6 Last Admin: 06/16/22 21:24 Dose: 10 mg Documented By: BHAVESH Sertraline HCl (Sertraline Hcl 50 Mg Tablet) 150 mg PO BEDTIME [facility] Last Admin: 06/17/22 21:42 Dose: 150 mg Documented By: PETEY Simethicone (Simethicone 80 Mg Tab.Chew) 80 mg PO QIDWMHS PRN PRN Reason: gassiness Last Admin: 06/12/22 22:18 Dose: 80 mg Documented By: SIMRANORALB Sodium Chloride (0.9 % Sodium Chloride Flush 3 Ml Syringe) 3 ml IVFLUSH QSHIFT [facility] Last Admin: 06/18/22 08:44 Dose: 3 ml Documented By: LAVYoandy Sodium Chloride (0.9 % Sodium Chloride Flush 10 Ml Syringe) 5 ml IVFLUSH TID [facility] Last Admin: 06/18/22 00:37 Dose: 5 ml Documented By: PETEY Trazodone HCl (Trazodone Hcl 50 Mg Tablet) 150 mg PO BEDTIME [facility] Last Admin: 06/17/22 21:42 Dose: 150 mg Documented By: PETEY <Bertha Fernandez PA-C - Last Filed: 06/18/22 14:52> Labs CBC & Chem 7: : 06/12/22 07:52 06/18/22 05:07 <Bertha Fernandez PA-C - Last Filed: 06/18/22 14:52> Labs: Laboratory Results - last 24 hr 06/17/22 06/17/22 06/17/22 10:05 11:17 15:40 Anion Gap 14 Estim Creat Clear Calc 112.3 Estimated GFR > 60 POC Glucose 210 H 199 H Random Glucose 254 H Calcium 8.2 L Phosphorus 2.5 L Magnesium 1.9 Albumin 06/17/22 06/18/22 06/18/22 19:29 05:07 07:31 Anion Gap 13 Estim Creat Clear Calc 113.5 Estimated GFR > 60 POC Glucose 171 H 200 H Random Glucose 247 H Calcium 7.9 L Phosphorus 3.4 Magnesium 1.9 Albumin 2.3 L <Bertha Fernandez PA-C - Last Filed: 06/18/22 14:52> Procedures Date of Service Date of Service: 06/18/22 <Bertha Fernandez PA-C - Last Filed: 06/18/22 14:52> Progress Note: A&P Assessment and plan (1) Intra-abdominal abscess: Status: Acute <Bertha Fernandez PA-C - Last Filed: 06/18/22 14:52> Assessment and Plan: passing flatus well continues to have BMs ambulating well according to the denies abdominal pain but says he some bloating after drinking liquids yesterday okay to take sips of clear liquids MARY drain still with significant output this morning abdomen distended but soft and very benign continue current care with TPN monitor input from drain manage as controlled fistula at this time if persistent - repeat laparotomy and revision of anastomosis, ileostomy hope to be able to allow postop inflammatory changes to settle down before planning a laparotomy seen and examined independently multiple discussions with patient and at bedside to explain plan <Lit Norton MD - Last Filed: 06/18/22 14:22> (2) S/P right colectomy: Status: Acute <Bertha Fernandez PA-C - Last Filed: 06/18/22 14:52> Assessment and Plan: 56 year old male who underwent 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 Post op course complicated by post op ileus, intraabdominal collection, respiratory distress. He is s/p IR drainage last week which drained enteric contents. Likely fistulous connection between bowel and abscess- treating as c ontrolled fistula. Repeat CT scan on 06/15/22 showed no new collection but residual fluid aspirated and MARY drain left. Fluid filled bowel loops although air distally, likely ileus. He is making progress, albiet slowly. Abd remains significantly distended and tympanitic, increased following clears. MARY continues with high enteric appearing output, slightly decreased. Will put back on sips of liquids only. Continue IV levaquin/flagyl. Cont TPN, PICC line. Encouraged OOB/ambulation of halls 4x per day and IS use. <YESENIA Wilson Last Filed: 06/18/22 14:52> Time Spent With Patient Time: Total time spent is greater than 50% in coordination of care (as documented) at patient's floor/unit and/or counseling patient: <Bertha Fernandez PA-C - Last Filed: 06/18/22 14:52> Quality Stroke Does the patient have a stroke diagnosis?: No <Bertha Fernandez PA-C - Last Filed: 06/18/22 14:52> VTE Prior VTE?: No <Bertha Fernandez PA-C - Last Filed: 06/18/22 14:52> VTE Risk Level:: Medical - moderate - high <Bertha Fernandez PA-C - Last Filed: 06/18/22 14:52> VTE Device Contraindication: N/A - Device Ordered <Bertha Fernandez PA-C - Last Filed: 06/18/22 14:52> VTE Drug Contraindication: N/A - Med Ordered <Bertha Fernandez PA-C - Last Filed: 06/18/22 14:52>
--- NOTE | 2022-06-18 09:43 | HO.PM.IMPN ---
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 Neck supple no JVD. CVS? regular rate rhythm, Respiratory lungs clear to auscultation, diminished at bases, no respiratory distress, no wheeze, no rhonchi. Gastrointestinal abdomen distended, bowel sounds audible, no guarding , no rigidity, clean incision, right-sided drain in place, with green pasty discharge Extremities no edema. Neuro nonfocal patient moving all 4 extremity speech clear. Skin no rash Psych appropriate affect Objective Data Active Medications Al Hydroxide/Mg Hydroxide (Magnesium Hydrox/Alum Hydrox 30 Ml Oral.Susp) 30 ml PO Q6H PRN PRN Reason: heartburn Last Admin: 06/18/22 00:37 Dose: 30 ml Documented By: PETEY Albuterol Sulfate (Albuterol Sulfate (0.042%) 1.25 Mg/3 Ml Vial.Neb) 1.25 mg INHALE RQ6H PRN PRN Reason: shortness of breath Last Admin: 06/07/22 23:46 Dose: 1.25 mg Documented By: STEPHANIE Atorvastatin Calcium (Atorvastatin Calcium 10 Mg Tablet) 10 mg PO BEDTIME [facility] Last Admin: 06/17/22 21:42 Dose: 10 mg Documented By: PETEY Buspirone HCl (Buspirone Hcl 5 Mg Tablet) 5 mg PO DAILY [facility] Last Admin: 06/18/22 08:42 Dose: 5 mg Documented By: KENYA Carvedilol (Carvedilol 12.5 Mg Tablet) 12.5 mg PO BID [facility]; Protocol Last Admin: 06/18/22 08:42 Dose: 12.5 mg Documented By: KENYA Dextrose (Dextrose 50 % 25 Gm/50 Ml Syringe) 25 gm IVPUSH Q15M PRN; Protocol PRN Reason: per Hypoglycemia Standing Ord. Famotidine (Famotidine/Pf 20 Mg/2 Ml Vial) 20 mg IVPUSH BID [facility] Last Admin: 06/18/22 08:43 Dose: 20 mg Documented By: KENYA Glucose (Glucose Gel 15 Gm Gel..Gram.) 15 gm PO Q15M PRN; Protocol PRN Reason: per Hypoglycemia Standing Ord. Heparin Sodium (Porcine) (Heparin Sodium,Porcine 5,000 Unit/Ml Vial) 5,000 unit SUBCUT Q8H [facility] Last Admin: 06/18/22 05:24 Dose: 5,000 unit Documented By: PETEY Promethazine HCl 12.5 mg/ (Sodium Chloride) 50.5 mls @ 202 mls/hr IV Q6H PRN PRN Reason: Nausea and Vomiting Acetaminophen (Ofirmev) 1,000 mg in 100 mls @ 400 mls/hr IV Q6H PRN PRN Reason: abdominal pain Last Infusion: 06/07/22 17:16 Dose: 0 mls/hr Documented By: NYA Metronidazole (Flagyl) 500 mg in 100 mls @ 100 mls/hr IV Q8H [facility] Last Infusion: 06/18/22 01:54 Dose: 0 mls/hr Documented By: PETEY Levofloxacin (Levaquin) 500 mg in 100 mls @ 100 mls/hr IV Q24H [facility] Last Admin: 06/18/22 08:49 Dose: 100 mls/hr Documented By: KENYA Potassium Chloride 40 meq/Sodium Chloride 50 meq/Magnesium Sulfate 10 meq/Potassium Phosphate 30 mmol/Calcium Gluconate 9.3 meq/Multivitamins 10 ml/ Trace Metals 1 ml/ Amino Acids/Dextrose 2,040 mls @ 85 mls/hr IV DAILY@1800 [facility] Stop: 06/18/22 17:59 Last Admin: 06/17/22 18:42 Dose: 85 mls/hr Documented By: BHAVESH Insulin Human Lispro (Insulin Lispro 100 Unit/Ml 3 Ml Vial) 0 unit SUBCUT QIDACHS [facility]; Protocol Last Admin: 06/18/22 08:48 Dose: 4 unit Documented By: KENYA Morphine Sulfate (Morphine Sulfate 2 Mg/Ml Cartridge) 2 mg IVPUSH Q3H PRN; Protocol PRN Reason: Pain, Severe (Pain Scale 7-10) Ondansetron HCl (Ondansetron Hcl 4 Mg/2 Ml Vial) 4 mg IVPUSH Q8H PRN PRN Reason: Nausea Last Admin: 06/11/22 23:51 Dose: 4 mg Documented By: SUMEET Oxycodone HCl (Oxycodone Hcl Immed Release 5 Mg Tablet) 10 mg PO Q4H PRN PRN Reason: Pain, Moderate (Pain Scale 4-6 Last Admin: 06/16/22 21:24 Dose: 10 mg Documented By: BHAVESH Sertraline HCl (Sertraline Hcl 50 Mg Tablet) 150 mg PO BEDTIME [facility] Last Admin: 06/17/22 21:42 Dose: 150 mg Documented By: PETEY Simethicone (Simethicone 80 Mg Tab.Chew) 80 mg PO QIDWMHS PRN PRN Reason: gassiness Last Admin: 06/12/22 22:18 Dose: 80 mg Documented By: SUMEET Sodium Chloride (0.9 % Sodium Chloride Flush 3 Ml Syringe) 3 ml IVFLUSH QSHIFT [facility] Last Admin: 06/18/22 08:44 Dose: 3 ml Documented By: KENYA Sodium Chloride (0.9 % Sodium Chloride Flush 10 Ml Syringe) 5 ml IVFLUSH TID [facility] Last Admin: 06/18/22 00:37 Dose: 5 ml Documented By: PETEY Trazodone HCl (Trazodone Hcl 50 Mg Tablet) 150 mg PO BEDTIME [facility] Last Admin: 06/17/22 21:42 Dose: 150 mg Documented By: PETEY Labs CBC & Chem 7: 06/12/22 07:52 06/18/22 05:07 Labs: Laboratory Results - last 24 hr 06/17/22 06/17/22 06/17/22 10:05 11:17 15:40 Anion Gap 14 Estim Creat Clear Calc 112.3 Estimated GFR > 60 POC Glucose 210 H 199 H Random Glucose 254 H Calcium 8.2 L Phosphorus 2.5 L Magnesium 1.9 Albumin 06/17/22 06/18/22 06/18/22 19:29 05:07 07:31 Anion Gap 13 Estim Creat Clear Calc 113.5 Estimated GFR > 60 POC Glucose 171 H 200 H Random Glucose 247 H Calcium 7.9 L Phosphorus 3.4 Magnesium 1.9 Albumin 2.3 L Assessment and Plan (1) Intra-abdominal abscess: Status: Acute (2) JENNIFER (acute kidney injury): Status: Acute Plan d#17 (surgical service) 56yo M with HTN, DM, KYM on CPAP, morbid obesity, migraines, depression admitted to General Surgery for resection of appendiceal adenoCA medicine consulted for management of DM and HTN # 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 Cultures grew Bacteroides fragilis, PCN/AMP-resistant; changed pip-glen to levofloxacin + metronidazole d#5 - continue TPN via PICC, further diet per surgery - encourage OOB/ambulation, IS - repeat CT 06/14- no new collection, no additional drain needed # gastritis - continue IV H2RA # acute hypercarbic/hypoxic resp failure # KYM - continue nocturnal CPAP, IS, ambulation - PNA treated with 5d of azithromycin, now on levofloxacin as above - wean suppl O2 as tolerated - cardiac workup negative # hypoK - resolved, continue TPN # JENNIFER - resolved s/p IV fluids # thrombocytopenia - resolved # DM2 - increased correction dose of lispro # HTN - continue carvedilol; held HCTZ + losartan due to JENNIFER; BP normal # HLD - continue statin # mood disorder - continue sertraline, buspirone, trazodone # smudge cells on CBC - no lymphocytosis or leukocytosis; outpt Heme f/u # obesity - weight loss counseling # VTE ppx: UFH Need for inaptient hospitalization: Defer to surgery Quality Stroke Does the patient have a stroke diagnosis?: No VTE Prior VTE?: No VTE Risk Level:: Medical - moderate - high VTE Device Contraindication: N/A - Device Ordered VTE Drug Contraindication: N/A - Med Ordered
[2022-06-18 11:12] VITALS: BP 116/71; PULSE 77; RESP 18; TEMP 36.3; O2SAT 98
[2022-06-18 11:40] LABS: Glucose, Whole Blood 256 mg/dL (60-115)
--- NOTE | 2022-06-18 13:05 | MHC.CM.PN ---
POSSIBLE SURGICAL INTERVENTION CASE MANAGEMENT FOLLOWING ALONG NO PLAN FOR DC TODAY
--- NOTE | 2022-06-18 13:17 | MHC.CLN ---
F/U CONTINUES NPO WITH TPN. LABS REVIEWED. RECOMMEND CONTINUE TPN AT MAX GOAL RATE: TPN [id number] AT 85ML PER HOUR WITH 37 ML OF 20% LIPIDS X 12 HRS. PROVIDES 2336 KCALS (27 KCALS/KG BASED ON CMW), 102 G PROTEIN (1.17 G/KG). REPLETE LYTES NEEDED. FOLLOW FOR TPN, LABS, AND DIET UPGRADE/TOLERANCE.
[2022-06-18 15:45] VITALS: BP 112/63; PULSE 82; RESP 17; TEMP 36.1; O2SAT 95
[2022-06-18 16:33] LABS: Glucose, Whole Blood 257 mg/dL (60-115)
[2022-06-18] MEDS: Fat Emulsions 20% 250 ML 37 ML IV (18:00)
[2022-06-18 20:00] VITALS: BP 116/59; PULSE 85; RESP 18; TEMP 36.3; O2SAT 97
[2022-06-18 20:23] LABS: Glucose, Whole Blood 190 mg/dL (60-115)
[2022-06-18] MEDS: Sertraline HCL 50 MG TABLET 150 MG PO (22:09)
[2022-06-18] MEDS: traZODone HCL 50 MG TABLET 150 MG PO (22:09)
[2022-06-18] MEDS: Atorvastatin Calcium 10 MG TABLET PO (22:09)
[2022-06-19] VITALS: BP 107/67; PULSE 78; RESP 18; TEMP 36.3; O2SAT 96
[2022-06-19] MEDS: Fat Emulsions 20% 250 ML 37 ML IV ×2 (00:10→17:51)
[2022-06-19] MEDS: metroNIDAZOLE/NS 500 MG/100 ML PIGGYBACK 100 MG IV ×3 (00:10→16:24)
[2022-06-19 04:00] VITALS: BP 101/58; PULSE 81; RESP 18; TEMP 36.6; O2SAT 96
[2022-06-19] MEDS: Heparin Sodium,Porcine 5,000 UNIT/ML VIAL 5000 UNIT SUBCUT ×2 (05:44→21:44)
[2022-06-19 06:56] LABS: Anion Gap 16 (12-20); Blood Urea Nitrogen 11 mg/dL (9-16); Calcium 8.2 mg/dL (8.4-10.2); Carbon Dioxide 23 mmol/L (22-29); Chloride 105 mmol/L (96-108); Creatinine Clr Calc Pharmacy 115.9; Estimated Glomerular Filt Rate > 60; Glucose Random 240 mg/dL (60-115); Potassium 4.3 mmol/L (3.3-5.1); Sodium 140 mmol/L (135-145)
[2022-06-19 08:00] VITALS: BP 103/55; PULSE 87; RESP 18; TEMP 36.3; O2SAT 97
[2022-06-19 08:01] LABS: Glucose, Whole Blood 230 mg/dL (60-115)
[2022-06-19] MEDS: carvediloL 12.5 MG TABLET PO ×2 (08:01→21:43)
[2022-06-19] MEDS: Famotidine/PF 20 MG/2 ML VIAL IVPUSH ×2 (08:01→21:44)
[2022-06-19] MEDS: busPIRone HCl 5 MG TABLET PO (08:01)
[2022-06-19] MEDS: levoFLOXacin/D5W 500 MG/100 ML PIGGYBACK 100 MG IV (08:02)
[2022-06-19] MEDS: 0.9 % Sodium Chloride Flush 10 ML SYRINGE 5 ML IVFLUSH ×3 (08:02→21:43)
[2022-06-19] MEDS: 0.9 % Sodium Chloride Flush 3 ML SYRINGE IVFLUSH ×2 (08:03→21:43)
[2022-06-19] MEDS: Insulin Lispro 100 UNIT/ML 3 ML VIAL SUBCUT ×3 (08:26→16:21)
--- NOTE | 2022-06-19 08:56 | HO.PM.IMPN ---
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 Neck supple no JVD. CVS? regular rate rhythm, Respiratory lungs clear to auscultation, diminished at bases, no respiratory distress, no wheeze, no rhonchi. Gastrointestinal abdomen distended, bowel sounds audible, no guarding , no rigidity, clean incision, right-sided drain in place, with green pasty discharge Extremities no edema. Neuro nonfocal patient moving all 4 extremity speech clear. Skin no rash Psych appropriate affect Objective Data Active Medications Al Hydroxide/Mg Hydroxide (Magnesium Hydrox/Alum Hydrox 30 Ml Oral.Susp) 30 ml PO Q6H PRN PRN Reason: heartburn Last Admin: 06/18/22 00:37 Dose: 30 ml Documented By: PETEY Albuterol Sulfate (Albuterol Sulfate (0.042%) 1.25 Mg/3 Ml Vial.Neb) 1.25 mg INHALE RQ6H PRN PRN Reason: shortness of breath Last Admin: 06/07/22 23:46 Dose: 1.25 mg Documented By: STEPHANIE Atorvastatin Calcium (Atorvastatin Calcium 10 Mg Tablet) 10 mg PO BEDTIME [facility] Last Admin: 06/18/22 22:09 Dose: 10 mg Documented By: HANS Buspirone HCl (Buspirone Hcl 5 Mg Tablet) 5 mg PO DAILY [facility] Last Admin: 06/19/22 08:01 Dose: 5 mg Documented By: EMIL Carvedilol (Carvedilol 12.5 Mg Tablet) 12.5 mg PO BID [facility]; Protocol Last Admin: 06/19/22 08:01 Dose: 12.5 mg Documented By: EMIL Dextrose (Dextrose 50 % 25 Gm/50 Ml Syringe) 25 gm IVPUSH Q15M PRN; Protocol PRN Reason: per Hypoglycemia Standing Ord. Famotidine (Famotidine/Pf 20 Mg/2 Ml Vial) 20 mg IVPUSH BID [facility] Last Admin: 06/19/22 08:01 Dose: 20 mg Documented By: EMIL Glucose (Glucose Gel 15 Gm Gel..Gram.) 15 gm PO Q15M PRN; Protocol PRN Reason: per Hypoglycemia Standing Ord. Heparin Sodium (Porcine) (Heparin Sodium,Porcine 5,000 Unit/Ml Vial) 5,000 unit SUBCUT Q8H [facility] Last Admin: 06/19/22 05:44 Dose: 5,000 unit Documented By: HANS Promethazine HCl 12.5 mg/ (Sodium Chloride) 50.5 mls @ 202 mls/hr IV Q6H PRN PRN Reason: Nausea and Vomiting Acetaminophen (Ofirmev) 1,000 mg in 100 mls @ 400 mls/hr IV Q6H PRN PRN Reason: abdominal pain Last Infusion: 06/07/22 17:16 Dose: 0 mls/hr Documented By: NYA Metronidazole (Flagyl) 500 mg in 100 mls @ 100 mls/hr IV Q8H [facility] Last Infusion: 06/19/22 01:14 Dose: 0 mls/hr Documented By: HANS Levofloxacin (Levaquin) 500 mg in 100 mls @ 100 mls/hr IV Q24H [facility] Last Admin: 06/19/22 08:02 Dose: 100 mls/hr Documented By: EMIL Potassium Chloride 20 meq/Sodium Chloride 50 meq/Magnesium Sulfate 10 meq/Potassium Phosphate 30 mmol/Calcium Gluconate 9.3 meq/Multivitamins 10 ml/ Trace Metals 1 ml/ Amino Acids/Dextrose 2,040 mls @ 85 mls/hr IV DAILY@1800 [facility] Stop: 06/19/22 17:59 Last Admin: 06/18/22 18:01 Dose: 85 mls/hr Documented By: GIULIA Insulin Human Lispro (Insulin Lispro 100 Unit/Ml 3 Ml Vial) 0 unit SUBCUT QIDACHS [facility]; Protocol Last Admin: 06/19/22 08:26 Dose: 1 unit Documented By: EMIL Morphine Sulfate (Morphine Sulfate 2 Mg/Ml Cartridge) 2 mg IVPUSH Q3H PRN; Protocol PRN Reason: Pain, Severe (Pain Scale 7-10) Ondansetron HCl (Ondansetron Hcl 4 Mg/2 Ml Vial) 4 mg IVPUSH Q8H PRN PRN Reason: Nausea Last Admin: 06/11/22 23:51 Dose: 4 mg Documented By: SUMEET Oxycodone HCl (Oxycodone Hcl Immed Release 5 Mg Tablet) 10 mg PO Q4H PRN PRN Reason: Pain, Moderate (Pain Scale 4-6 Last Admin: 06/16/22 21:24 Dose: 10 mg Documented By: BHAVESH Sertraline HCl (Sertraline Hcl 50 Mg Tablet) 150 mg PO BEDTIME [facility] Last Admin: 06/18/22 22:09 Dose: 150 mg Documented By: HANS Simethicone (Simethicone 80 Mg Tab.Chew) 80 mg PO QIDWMHS PRN PRN Reason: gassiness Last Admin: 06/12/22 22:18 Dose: 80 mg Documented By: SUMEET Sodium Chloride (0.9 % Sodium Chloride Flush 3 Ml Syringe) 3 ml IVFLUSH QSHIFT [facility] Last Admin: 06/19/22 08:03 Dose: 3 ml Documented By: EMIL Sodium Chloride (0.9 % Sodium Chloride Flush 10 Ml Syringe) 5 ml IVFLUSH TID [facility] Last Admin: 06/19/22 08:02 Dose: 5 ml Documented By: EMIL Trazodone HCl (Trazodone Hcl 50 Mg Tablet) 150 mg PO BEDTIME [facility] Last Admin: 06/18/22 22:09 Dose: 150 mg Documented By: HANS Labs CBC & Chem 7: 06/12/22 07:52 06/19/22 05:53 Labs: Laboratory Results - last 24 hr 06/18/22 06/18/22 06/18/22 11:17 16:28 19:55 Anion Gap Estim Creat Clear Calc Estimated GFR POC Glucose 256 H 257 H 190 H Random Glucose Calcium 06/19/22 06/19/22 05:53 07:30 Anion Gap 16 Estim Creat Clear Calc 115.9 Estimated GFR > 60 POC Glucose 230 H Random Glucose 240 H Calcium 8.2 L Assessment and Plan (1) Intra-abdominal abscess: Status: Acute (2) JENNIFER (acute kidney injury): Status: Acute Plan d#18 (surgical service) 56yo M with HTN, DM, KYM on CPAP, morbid obesity, migraines, depression admitted to General Surgery for resection of appendiceal adenoCA medicine consulted for management of DM and HTN # 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 Cultures grew Bacteroides fragilis, PCN/AMP-resistant; changed pip-glen to levofloxacin + metronidazole d#5 - continue TPN via PICC, further diet per surgery - encourage OOB/ambulation, IS - repeat CT 06/14- no new collection, no additional drain needed # gastritis - continue IV H2RA # acute hypercarbic/hypoxic resp failure # KYM - continue nocturnal CPAP, IS, ambulation - PNA treated with 5d of azithromycin, now on levofloxacin as above - wean suppl O2 as tolerated - cardiac workup negative # hypoK - resolved, continue TPN # JENNIFER - resolved s/p IV fluids # thrombocytopenia - resolved # DM2 - increased correction dose of lispro # HTN - continue carvedilol; held HCTZ + losartan due to JENNIFER; BP normal # HLD - continue statin # mood disorder - continue sertraline, buspirone, trazodone # smudge cells on CBC - no lymphocytosis or leukocytosis; outpt Heme f/u # obesity - weight loss counseling # VTE ppx: UFH Need for inaptient hospitalization: Defer to surgery. Will continue to follow on needed basis Quality Stroke Does the patient have a stroke diagnosis?: No VTE Prior VTE?: No VTE Risk Level:: Medical - moderate - high VTE Device Contraindication: N/A - Device Ordered VTE Drug Contraindication: N/A - Med Ordered
[2022-06-19 11:35] LABS: Glucose, Whole Blood 212 mg/dL (60-115)
[2022-06-19 12:00] VITALS: BP 96/56; PULSE 77; RESP 18
[2022-06-19 12:15] LABS: Phosphorus 3.4 mg/dL (2.7-4.5)
[2022-06-19 12:30] LABS: Magnesium 1.8 mg/dL (1.6-2.6)
--- NOTE | 2022-06-19 14:01 | PM.PNGS ---
Subjective Subjective Date of Service: 06/19/22 Interval history: patient is feeling okay no fevers chills his abdomen is not hurting him some much anymore. He has had some stone material. He is hungry. Physical Exam Vital Signs: Vital Signs: Last Vital Signs Temp 97.3 F 06/19/22 08:00 Pulse 77 06/19/22 12:00 Resp 18 06/19/22 12:00 BP 96/56 L 06/19/22 12:00 Pulse Ox 97 06/19/22 08:00 O2 Del Method 06/19/22 08:00 O2 Flow Rate 2 06/17/22 23:46 Oxygen Flow Rate 2 06/17/22 04:00 BMI result Body Mass Index 38.4 Const: General: cooperative, healthy appearing and no acute distress Orientation/consciousness: oriented to person and patient oriented x3 HEENT: Head: Yes normal to inspection GI: Other: Abdomen is distended but soft nontender better bowel sounds. MARY drain less antral contents present. No peritonitis Neuro: General: oriented to person and patient oriented x3 Psych: Appearance: grossly normal Mental Status: mental status grossly normal Attitude: cooperative Thought process: Normal thought process present Insight: Good insight present (Psych) Judgement: Good judgement present (Psych) Objective Data Active Medications Al Hydroxide/Mg Hydroxide (Magnesium Hydrox/Alum Hydrox 30 Ml Oral.Susp) 30 ml PO Q6H PRN PRN Reason: heartburn Last Admin: 06/18/22 00:37 Dose: 30 ml Documented By: PETEY Albuterol Sulfate (Albuterol Sulfate (0.042%) 1.25 Mg/3 Ml Vial.Neb) 1.25 mg INHALE RQ6H PRN PRN Reason: shortness of breath Last Admin: 06/07/22 23:46 Dose: 1.25 mg Documented By: STEPHANIE Atorvastatin Calcium (Atorvastatin Calcium 10 Mg Tablet) 10 mg PO BEDTIME [facility] Last Admin: 06/18/22 22:09 Dose: 10 mg Documented By: HANS Buspirone HCl (Buspirone Hcl 5 Mg Tablet) 5 mg PO DAILY [facility] Last Admin: 06/19/22 08:01 Dose: 5 mg Documented By: EMIL Carvedilol (Carvedilol 12.5 Mg Tablet) 12.5 mg PO BID [facility]; Protocol Last Admin: 06/19/22 08:01 Dose: 12.5 mg Documented By: EMIL Dextrose (Dextrose 50 % 25 Gm/50 Ml Syringe) 25 gm IVPUSH Q15M PRN; Protocol PRN Reason: per Hypoglycemia Standing Ord. Famotidine (Famotidine/Pf 20 Mg/2 Ml Vial) 20 mg IVPUSH BID [facility] Last Admin: 06/19/22 08:01 Dose: 20 mg Documented By: EMIL Glucose (Glucose Gel 15 Gm Gel..Gram.) 15 gm PO Q15M PRN; Protocol PRN Reason: per Hypoglycemia Standing Ord. Heparin Sodium (Porcine) (Heparin Sodium,Porcine 5,000 Unit/Ml Vial) 5,000 unit SUBCUT Q8H [facility] Last Admin: 06/19/22 05:44 Dose: 5,000 unit Documented By: HANS Promethazine HCl 12.5 mg/ (Sodium Chloride) 50.5 mls @ 202 mls/hr IV Q6H PRN PRN Reason: Nausea and Vomiting Acetaminophen (Ofirmev) 1,000 mg in 100 mls @ 400 mls/hr IV Q6H PRN PRN Reason: abdominal pain Last Infusion: 06/07/22 17:16 Dose: 0 mls/hr Documented By: NYA Metronidazole (Flagyl) 500 mg in 100 mls @ 100 mls/hr IV Q8H [facility] Last Infusion: 06/19/22 11:32 Dose: 100 mls/hr Documented By: EMIL Levofloxacin (Levaquin) 500 mg in 100 mls @ 100 mls/hr IV Q24H [facility] Last Infusion: 06/19/22 09:34 Dose: 100 mls/hr Documented By: EMIL Potassium Chloride 20 meq/Sodium Chloride 50 meq/Magnesium Sulfate 10 meq/Potassium Phosphate 30 mmol/Calcium Gluconate 9.3 meq/Multivitamins 10 ml/ Trace Metals 1 ml/ Amino Acids/Dextrose 2,040 mls @ 85 mls/hr IV DAILY@1800 [facility] Stop: 06/19/22 17:59 Last Admin: 06/18/22 18:01 Dose: 85 mls/hr Documented By: GIULIA Potassium Chloride 20 meq/Sodium Chloride 50 meq/Magnesium Sulfate 10 meq/Potassium Phosphate 30 mmol/Calcium Gluconate 9.3 meq/Multivitamins 10 ml/ Trace Metals 1 ml/ Amino Acids/Dextrose 2,040 mls @ 85 mls/hr IV DAILY@1800 [facility] Stop: 06/20/22 17:59 Fat Emulsion Intravenous (Intralipid) 222 mls @ 37 mls/hr IV DAILY@1800 [facility] Stop: 06/19/22 23:59 Fat Emulsion Intravenous (Intralipid) 222 mls @ 37 mls/hr IV DAILY@0000 [facility] Stop: 06/20/22 05:59 Insulin Human Lispro (Insulin Lispro 100 Unit/Ml 3 Ml Vial) 0 unit SUBCUT QIDACHS [facility]; Protocol Last Admin: 06/19/22 12:40 Dose: 7 unit Documented By: EMIL Morphine Sulfate (Morphine Sulfate 2 Mg/Ml Cartridge) 2 mg IVPUSH Q3H PRN; Protocol PRN Reason: Pain, Severe (Pain Scale 7-10) Ondansetron HCl (Ondansetron Hcl 4 Mg/2 Ml Vial) 4 mg IVPUSH Q8H PRN PRN Reason: Nausea Last Admin: 06/11/22 23:51 Dose: 4 mg Documented By: SUMEET Oxycodone HCl (Oxycodone Hcl Immed Release 5 Mg Tablet) 10 mg PO Q4H PRN PRN Reason: Pain, Moderate (Pain Scale 4-6 Last Admin: 06/16/22 21:24 Dose: 10 mg Documented By: BHAVESH Sertraline HCl (Sertraline Hcl 50 Mg Tablet) 150 mg PO BEDTIME [facility] Last Admin: 06/18/22 22:09 Dose: 150 mg Documented By: HANS Simethicone (Simethicone 80 Mg Tab.Chew) 80 mg PO QIDWMHS PRN PRN Reason: gassiness Last Admin: 06/12/22 22:18 Dose: 80 mg Documented By: SUMEET Sodium Chloride (0.9 % Sodium Chloride Flush 3 Ml Syringe) 3 ml IVFLUSH QSHIFT [facility] Last Admin: 06/19/22 08:03 Dose: 3 ml Documented By: EMIL Sodium Chloride (0.9 % Sodium Chloride Flush 10 Ml Syringe) 5 ml IVFLUSH TID [facility] Last Admin: 06/19/22 08:02 Dose: 5 ml Documented By: HO.YOUB Trazodone HCl (Trazodone Hcl 50 Mg Tablet) 150 mg PO BEDTIME [facility] Last Admin: 06/18/22 22:09 Dose: 150 mg Documented By: HANS Labs CBC & Chem 7: 06/12/22 07:52 06/19/22 05:53 Labs: Laboratory Results - last 24 hr 06/18/22 06/18/22 06/19/22 16:28 19:55 05:53 Anion Gap 16 Estim Creat Clear Calc 115.9 Estimated GFR > 60 POC Glucose 257 H 190 H Random Glucose 240 H Calcium 8.2 L Phosphorus 3.4 Magnesium 1.8 06/19/22 06/19/22 07:30 11:24 Anion Gap Estim Creat Clear Calc Estimated GFR POC Glucose 230 H 212 H Random Glucose Calcium Phosphorus Magnesium Procedures Date of Service Date of Service: 06/19/22 Progress Note: A&P Assessment and plan (1) S/P right colectomy: Status: Acute Assessment and Plan: 56-year-old male status post right colectomy for carcinoma and now with bile leak and drainage of abscess bile leak area. Patient is stable no peritonitis and overall improving. Leak and flow of this enteral contents persists. Patient will most likely need return to OR for re-evaluation and potential Yael stenosis or repair of the perforated site. At this point plan is to continue increasing his nutrition support with TPN and bowel rest and antibiotics. Patient is tolerating this well and stable. TPN renewed (2) Intra-abdominal abscess: Status: Acute Time Spent With Patient Time: Total time spent is greater than 50% in coordination of care (as documented) at patient's floor/unit and/or counseling patient: Quality Stroke Does the patient have a stroke diagnosis?: No VTE Prior VTE?: No VTE Risk Level:: Medical - moderate - high VTE Device Contraindication: N/A - Device Ordered VTE Drug Contraindication: N/A - Med Ordered
--- NOTE | 2022-06-19 15:15 | PC.NURSE ---
Bulb drain right flank flushed with 10cc NS. dsg d&i purulent green drainage
[2022-06-19 15:28] VITALS: BP 114/66; PULSE 84; RESP 19; TEMP 36.6; O2SAT 99
[2022-06-19 16:02] LABS: Glucose, Whole Blood 161 mg/dL (60-115)
[2022-06-19 19:28] LABS: Glucose, Whole Blood 152 mg/dL (60-115)
[2022-06-19 19:54] VITALS: BP 116/73; PULSE 97; RESP 18; TEMP 36.2; O2SAT 97
[2022-06-19] MEDS: Atorvastatin Calcium 10 MG TABLET PO (21:43)
[2022-06-19] MEDS: traZODone HCL 50 MG TABLET 150 MG PO (21:43)
[2022-06-19] MEDS: Sertraline HCL 50 MG TABLET 150 MG PO (21:43)
--- NOTE | 2022-06-19 22:37 | PC.NURSE ---
Addendum entered by Pattie Norman RN 06/19/22 22:56: drain flushed after drsg change ,patent Original Note: bulb drain site drsg changed,redness noted around the catheter site,primary RN Thee notified.
[2022-06-20] MEDS: Fat Emulsions 20% 250 ML 37 ML IV ×2 (00:10→18:32)
[2022-06-20] MEDS: metroNIDAZOLE/NS 500 MG/100 ML PIGGYBACK 100 MG IV ×4 (00:10→23:53)
[2022-06-20 00:14] VITALS: BP 113/59; PULSE 71; RESP 18; TEMP 36.1; O2SAT 97
[2022-06-20 04:00] VITALS: BP 132/61; PULSE 82; RESP 18; TEMP 36.2; O2SAT 97
[2022-06-20] MEDS: Heparin Sodium,Porcine 5,000 UNIT/ML VIAL 5000 UNIT SUBCUT ×3 (06:18→21:00)
[2022-06-20 06:35] LABS: Anion Gap 15 (12-20); Blood Urea Nitrogen 11 mg/dL (9-16); Calcium 7.8 mg/dL (8.4-10.2); Carbon Dioxide 25 mmol/L (22-29); Chloride 106 mmol/L (96-108); Creatinine Clr Calc Pharmacy 114.7; Estimated Glomerular Filt Rate > 60; Glucose Random 248 mg/dL (60-115); Potassium 4.5 mmol/L (3.3-5.1); Sodium 141 mmol/L (135-145)
[2022-06-20 06:48] LABS: Magnesium 1.7 mg/dL (1.6-2.6); Phosphorus 3.7 mg/dL (2.7-4.5)
--- NOTE | 2022-06-20 07:24 | HO.PM.IMPN ---
Subjective Subjective Date of Service: 09/03/22 Interval History: seen with auditor medical claims no breathing issues using CPAP at night no fever no abd pain but seem distended a better today Review of Systems [employer] no headache no dizziness General no fevers, no chills CVS no chest pain, no shortness of breath Physical Exam Vital Signs: Vital Signs: Last Vital Signs Temp 97.1 F 06/20/22 04:00 Pulse 82 06/20/22 04:00 Resp 18 06/20/22 04:00 BP 132/61 06/20/22 04:00 Pulse Ox 97 06/20/22 04:00 O2 Del Method 06/20/22 04:00 O2 Flow Rate 2 06/17/22 23:46 Oxygen Flow Rate 2 06/17/22 04:00 BMI result Body Mass Index 38.4 Const: Other: General awake alert,in no acute distress.? Neck supple no JVD. CVS? regular rate rhythm, Respiratory lungs clear to auscultation, diminished at bases, no respiratory distress, no wheeze, no rhonchi. Gastrointestinal abdomen distended, bowel sounds audible, no guarding , no rigidity, clean incision, right-sided drain in place, with green pasty discharge Extremities no edema. Neuro nonfocal patient moving all 4 extremity speech clear. Skin no rash Psych appropriate affect Objective Data Active Medications Al Hydroxide/Mg Hydroxide (Magnesium Hydrox/Alum Hydrox 30 Ml Oral.Susp) 30 ml PO Q6H PRN PRN Reason: heartburn Last Admin: 06/18/22 00:37 Dose: 30 ml Documented By: PETEY Albuterol Sulfate (Albuterol Sulfate (0.042%) 1.25 Mg/3 Ml Vial.Neb) 1.25 mg INHALE RQ6H PRN PRN Reason: shortness of breath Last Admin: 06/07/22 23:46 Dose: 1.25 mg Documented By: STEPHANIE Atorvastatin Calcium (Atorvastatin Calcium 10 Mg Tablet) 10 mg PO BEDTIME [facility] Last Admin: 06/19/22 21:43 Dose: 10 mg Documented By: HANS Buspirone HCl (Buspirone Hcl 5 Mg Tablet) 5 mg PO DAILY [facility] Last Admin: 06/19/22 08:01 Dose: 5 mg Documented By: EMIL Carvedilol (Carvedilol 12.5 Mg Tablet) 12.5 mg PO BID [facility]; Protocol Last Admin: 06/19/22 21:43 Dose: 12.5 mg Documented By: HANS Dextrose (Dextrose 50 % 25 Gm/50 Ml Syringe) 25 gm IVPUSH Q15M PRN; Protocol PRN Reason: per Hypoglycemia Standing Ord. Famotidine (Famotidine/Pf 20 Mg/2 Ml Vial) 20 mg IVPUSH BID [facility] Last Admin: 06/19/22 21:44 Dose: 20 mg Documented By: HANS Glucose (Glucose Gel 15 Gm Gel..Gram.) 15 gm PO Q15M PRN; Protocol PRN Reason: per Hypoglycemia Standing Ord. Heparin Sodium (Porcine) (Heparin Sodium,Porcine 5,000 Unit/Ml Vial) 5,000 unit SUBCUT Q8H [facility] Last Admin: 06/20/22 06:18 Dose: 5,000 unit Documented By: HANS Promethazine HCl 12.5 mg/ (Sodium Chloride) 50.5 mls @ 202 mls/hr IV Q6H PRN PRN Reason: Nausea and Vomiting Acetaminophen (Ofirmev) 1,000 mg in 100 mls @ 400 mls/hr IV Q6H PRN PRN Reason: abdominal pain Last Infusion: 06/07/22 17:16 Dose: 0 mls/hr Documented By: NYA Metronidazole (Flagyl) 500 mg in 100 mls @ 100 mls/hr IV Q8H [facility] Last Infusion: 06/20/22 02:11 Dose: 0 mls/hr Documented By: HANS Levofloxacin (Levaquin) 500 mg in 100 mls @ 100 mls/hr IV Q24H [facility] Last Infusion: 06/19/22 09:34 Dose: 100 mls/hr Documented By: EMIL Potassium Chloride 20 meq/Sodium Chloride 50 meq/Magnesium Sulfate 10 meq/Potassium Phosphate 30 mmol/Calcium Gluconate 9.3 meq/Multivitamins 10 ml/ Trace Metals 1 ml/ Amino Acids/Dextrose 2,040 mls @ 85 mls/hr IV DAILY@1800 [facility] Stop: 06/20/22 17:59 Last Admin: 06/19/22 17:50 Dose: 85 mls/hr Documented By: GOYO Insulin Human Lispro (Insulin Lispro 100 Unit/Ml 3 Ml Vial) 0 unit SUBCUT QIDACHS [facility]; Protocol Last Admin: 06/19/22 21:44 Dose: Not Given Documented By: HANS Non-Admin Reason: No Insulin Coverage Morphine Sulfate (Morphine Sulfate 2 Mg/Ml Cartridge) 2 mg IVPUSH Q3H PRN; Protocol PRN Reason: Pain, Severe (Pain Scale 7-10) Ondansetron HCl (Ondansetron Hcl 4 Mg/2 Ml Vial) 4 mg IVPUSH Q8H PRN PRN Reason: Nausea Last Admin: 06/11/22 23:51 Dose: 4 mg Documented By: SUMEET Oxycodone HCl (Oxycodone Hcl Immed Release 5 Mg Tablet) 10 mg PO Q4H PRN PRN Reason: Pain, Moderate (Pain Scale 4-6 Last Admin: 06/16/22 21:24 Dose: 10 mg Documented By: BHAVESH Sertraline HCl (Sertraline Hcl 50 Mg Tablet) 150 mg PO BEDTIME [facility] Last Admin: 06/19/22 21:43 Dose: 150 mg Documented By: HANS Simethicone (Simethicone 80 Mg Tab.Chew) 80 mg PO QIDWMHS PRN PRN Reason: gassiness Last Admin: 06/12/22 22:18 Dose: 80 mg Documented By: SUMEET Sodium Chloride (0.9 % Sodium Chloride Flush 3 Ml Syringe) 3 ml IVFLUSH QSHIFT [facility] Last Admin: 06/19/22 21:43 Dose: 3 ml Documented By: HANS Sodium Chloride (0.9 % Sodium Chloride Flush 10 Ml Syringe) 5 ml IVFLUSH TID [facility] Last Admin: 06/19/22 21:43 Dose: 5 ml Documented By: HANS Trazodone HCl (Trazodone Hcl 50 Mg Tablet) 150 mg PO BEDTIME [facility] Last Admin: 06/19/22 21:43 Dose: 150 mg Documented By: HANS Labs 06/12/22 07:52 06/29/22 06:01 Labs: Laboratory Results - last 24 hr 06/19/22 06/19/22 06/19/22 05:53 11:24 15:31 Anion Gap Estim Creat Clear Calc Estimated GFR POC Glucose 212 H 161 H Random Glucose Calcium Phosphorus 3.4 Magnesium 1.8 06/19/22 06/20/22 19:18 05:31 Anion Gap 15 Estim Creat Clear Calc 114.7 Estimated GFR > 60 POC Glucose 152 H Random Glucose 248 H Calcium 7.8 L Phosphorus 3.7 Magnesium 1.7 Assessment and Plan (1) Intra-abdominal abscess: Status: Acute (2) JENNIFER (acute kidney injury): Status: Acute Plan d#19 (surgical service) 56yo M with HTN, DM, KYM on CPAP, morbid obesity, migraines, depression admitted to General Surgery for resection of appendiceal adenoCA medicine consulted for management of DM and HTN # 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 Cultures grew Bacteroides fragilis, PCN/AMP-resistant; changed pip-glen to levofloxacin + metronidazole d#5 - continue TPN via PICC, further diet per surgery - encourage OOB/ambulation, IS - repeat CT 06/14- no new collection, no additional drain needed # gastritis - continue IV H2RA # acute hypercarbic/hypoxic resp failure # KYM - continue nocturnal CPAP, IS, ambulation - PNA treated with 5d of azithromycin, now on levofloxacin as above - wean suppl O2 as tolerated - cardiac workup negative # hypoK - resolved, continue TPN # JENNIFER - resolved s/p IV fluids # thrombocytopenia - resolved # DM2 -adjust insulin based on sugars # HTN - continue carvedilol; held HCTZ + losartan due to JENNIFER; BP normal # HLD - continue statin # mood disorder - continue sertraline, buspirone, trazodone # smudge cells on CBC - no lymphocytosis or leukocytosis; outpt Heme f/u # obesity - weight loss counseling # VTE ppx: UFH Need for inaptient hospitalization: Defer to surgery. Will continue to follow on needed basis Quality Stroke Does the patient have a stroke diagnosis?: No VTE Prior VTE?: No VTE Risk Level:: Medical - moderate - high VTE Device Contraindication: N/A - Device Ordered VTE Drug Contraindication: N/A - Med Ordered
[2022-06-20 07:50] VITALS: BP 126/68; PULSE 97; RESP 16; TEMP 36.6; O2SAT 97
[2022-06-20 08:19] LABS: Glucose, Whole Blood 228 mg/dL (60-115)
[2022-06-20] MEDS: Insulin Lispro 100 UNIT/ML 3 ML VIAL SUBCUT ×4 (09:08→21:00)
[2022-06-20] MEDS: busPIRone HCl 5 MG TABLET PO (09:09)
[2022-06-20] MEDS: 0.9 % Sodium Chloride Flush 10 ML SYRINGE 5 ML IVFLUSH ×3 (09:10→20:58)
[2022-06-20] MEDS: carvediloL 12.5 MG TABLET PO ×2 (09:10→21:00)
[2022-06-20] MEDS: levoFLOXacin/D5W 500 MG/100 ML PIGGYBACK 100 MG IV (09:10)
[2022-06-20] MEDS: 0.9 % Sodium Chloride Flush 3 ML SYRINGE IVFLUSH ×2 (09:10→23:53)
[2022-06-20] MEDS: Famotidine/PF 20 MG/2 ML VIAL IVPUSH ×2 (09:11→21:00)
[2022-06-20 11:38] LABS: Glucose, Whole Blood 167 mg/dL (60-115)
[2022-06-20 12:00] VITALS: BP 111/64; PULSE 97; RESP 18; TEMP 5371.6; TEMP 9701; O2SAT 97
--- NOTE | 2022-06-20 14:33 | PM.PNGS ---
Subjective Subjective Date of Service: 06/20/22 Interval history: patient says he feels like his lungs maybe a little heavy and crackly but otherwise feels good. He is getting hungry. Complaining that there was some drainage from the lower part of the midline incision after having a shower MARY drain still putting out antral contents although it looks like the output may have been getting lasts Physical Exam Vital Signs: Vital Signs: Last Vital Signs Temp 9701 F H 06/20/22 12:00 Pulse 97 06/20/22 12:00 Resp 18 06/20/22 12:00 BP 111/64 06/20/22 12:00 Pulse Ox 97 06/20/22 12:00 O2 Del Method 06/20/22 12:00 O2 Flow Rate 2 06/17/22 23:46 Oxygen Flow Rate 2 06/17/22 04:00 BMI result Body Mass Index 38.4 Const: General: cooperative, healthy appearing, comfortable and no acute distress Resp: Effort & Inspection: normal respiratory effort Auscultation: clear to auscultation bilaterally Cardio: Rate: regular rate Rhythm: regular rhythm GI: Other: abdomen is soft but distended has some hypo bowel sounds midline incision has at the inferior most aspect separation of the scan but the deeper closure is intact no evidence of any infection. Another small area slightly open in the middle of the abdomen Skin: General skin exam: no rashes or lesions noted Objective Data Active Medications Al Hydroxide/Mg Hydroxide (Magnesium Hydrox/Alum Hydrox 30 Ml Oral.Susp) 30 ml PO Q6H PRN PRN Reason: heartburn Last Admin: 06/18/22 00:37 Dose: 30 ml Documented By: PETEY Albuterol Sulfate (Albuterol Sulfate (0.042%) 1.25 Mg/3 Ml Vial.Neb) 1.25 mg INHALE RQ6H PRN PRN Reason: shortness of breath Last Admin: 06/07/22 23:46 Dose: 1.25 mg Documented By: STEPHANIE Atorvastatin Calcium (Atorvastatin Calcium 10 Mg Tablet) 10 mg PO BEDTIME [facility] Last Admin: 06/19/22 21:43 Dose: 10 mg Documented By: HANS Buspirone HCl (Buspirone Hcl 5 Mg Tablet) 5 mg PO DAILY [facility] Last Admin: 06/20/22 09:09 Dose: 5 mg Documented By: EMIL Carvedilol (Carvedilol 12.5 Mg Tablet) 12.5 mg PO BID [facility]; Protocol Last Admin: 06/20/22 09:10 Dose: 12.5 mg Documented By: EMIL Dextrose (Dextrose 50 % 25 Gm/50 Ml Syringe) 25 gm IVPUSH Q15M PRN; Protocol PRN Reason: per Hypoglycemia Standing Ord. Famotidine (Famotidine/Pf 20 Mg/2 Ml Vial) 20 mg IVPUSH BID [facility] Last Admin: 06/20/22 09:11 Dose: 20 mg Documented By: EMIL Glucose (Glucose Gel 15 Gm Gel..Gram.) 15 gm PO Q15M PRN; Protocol PRN Reason: per Hypoglycemia Standing Ord. Heparin Sodium (Porcine) (Heparin Sodium,Porcine 5,000 Unit/Ml Vial) 5,000 unit SUBCUT Q8H [facility] Last Admin: 06/20/22 13:04 Dose: 5,000 unit Documented By: EMIL Promethazine HCl 12.5 mg/ (Sodium Chloride) 50.5 mls @ 202 mls/hr IV Q6H PRN PRN Reason: Nausea and Vomiting Acetaminophen (Ofirmev) 1,000 mg in 100 mls @ 400 mls/hr IV Q6H PRN PRN Reason: abdominal pain Last Infusion: 06/07/22 17:16 Dose: 0 mls/hr Documented By: NYA Metronidazole (Flagyl) 500 mg in 100 mls @ 100 mls/hr IV Q8H [facility] Last Infusion: 06/20/22 11:56 Dose: 100 mls/hr Documented By: EMIL Levofloxacin (Levaquin) 500 mg in 100 mls @ 100 mls/hr IV Q24H [facility] Last Infusion: 06/20/22 10:15 Dose: 100 mls/hr Documented By: EMIL Potassium Chloride 20 meq/Sodium Chloride 50 meq/Magnesium Sulfate 10 meq/Potassium Phosphate 30 mmol/Calcium Gluconate 9.3 meq/Multivitamins 10 ml/ Trace Metals 1 ml/ Amino Acids/Dextrose 2,040 mls @ 85 mls/hr IV DAILY@1800 [facility] Stop: 06/20/22 17:59 Last Admin: 06/19/22 17:50 Dose: 85 mls/hr Documented By: GOYO Potassium Chloride 20 meq/Sodium Chloride 50 meq/Magnesium Sulfate 10 meq/Potassium Phosphate 30 mmol/Calcium Gluconate 9.3 meq/Multivitamins 10 ml/ Trace Metals 1 ml/ Amino Acids/Dextrose 2,040 mls @ 85 mls/hr IV DAILY@1800 [facility] Stop: 06/21/22 17:59 Fat Emulsion Intravenous (Intralipid) 222 mls @ 37 mls/hr IV DAILY@1800 [facility] Stop: 06/20/22 23:59 Fat Emulsion Intravenous (Intralipid) 222 mls @ 37 mls/hr IV DAILY@0000 [facility] Stop: 06/21/22 05:59 Insulin Human Lispro (Insulin Lispro 100 Unit/Ml 3 Ml Vial) 0 unit SUBCUT QIDACHS [facility]; Protocol Last Admin: 06/20/22 12:13 Dose: 4 unit Documented By: EMIL Morphine Sulfate (Morphine Sulfate 2 Mg/Ml Cartridge) 2 mg IVPUSH Q3H PRN; Protocol PRN Reason: Pain, Severe (Pain Scale 7-10) Ondansetron HCl (Ondansetron Hcl 4 Mg/2 Ml Vial) 4 mg IVPUSH Q8H PRN PRN Reason: Nausea Last Admin: 06/11/22 23:51 Dose: 4 mg Documented By: SUMEET Oxycodone HCl (Oxycodone Hcl Immed Release 5 Mg Tablet) 10 mg PO Q4H PRN PRN Reason: Pain, Moderate (Pain Scale 4-6 Last Admin: 06/16/22 21:24 Dose: 10 mg Documented By: BHAVESH Sertraline HCl (Sertraline Hcl 50 Mg Tablet) 150 mg PO BEDTIME [facility] Last Admin: 06/19/22 21:43 Dose: 150 mg Documented By: HANS Simethicone (Simethicone 80 Mg Tab.Chew) 80 mg PO QIDWMHS PRN PRN Reason: gassiness Last Admin: 06/12/22 22:18 Dose: 80 mg Documented By: SUMEET Sodium Chloride (0.9 % Sodium Chloride Flush 3 Ml Syringe) 3 ml IVFLUSH QSHIFT [facility] Last Admin: 06/20/22 09:10 Dose: 3 ml Documented By: EMIL Sodium Chloride (0.9 % Sodium Chloride Flush 10 Ml Syringe) 5 ml IVFLUSH TID [facility] Last Admin: 06/20/22 13:06 Dose: 5 ml Documented By: EMIL Trazodone HCl (Trazodone Hcl 50 Mg Tablet) 150 mg PO BEDTIME [facility] Last Admin: 06/19/22 21:43 Dose: 150 mg Documented By: HANS Labs CBC & Chem 7: 06/12/22 07:52 06/20/22 05:31 Labs: Laboratory Results - last 24 hr 06/19/22 06/19/22 06/20/22 15:31 19:18 05:31 Anion Gap 15 Estim Creat Clear Calc 114.7 Estimated GFR > 60 POC Glucose 161 H 152 H Random Glucose 248 H Calcium 7.8 L Phosphorus 3.7 Magnesium 1.7 06/20/22 06/20/22 07:55 11:26 Anion Gap Estim Creat Clear Calc Estimated GFR POC Glucose 228 H 167 H Random Glucose Calcium Phosphorus Magnesium Procedures Date of Service Date of Service: 06/20/22 Progress Note: A&P Assessment and plan (1) Intra-abdominal abscess: Status: Acute Assessment and Plan: 56-year-old male status post right colectomy but with intra-abdominal abscess may be fistula draining from bowel however no peritonitis control drainage with interventionally place strain. Plan to continue drainage NPO but will most likely need revision surgery defects this. In the meantime patient has spend getting stronger on TPN and bowel rest in antibiotic therapy. Dr. Norton to re-evaluate this week Time Spent With Patient Time: Total time spent is greater than 50% in coordination of care (as documented) at patient's floor/unit and/or counseling patient: Quality Stroke Does the patient have a stroke diagnosis?: No VTE Prior VTE?: No VTE Risk Level:: Medical - moderate - high VTE Device Contraindication: N/A - Device Ordered VTE Drug Contraindication: N/A - Med Ordered
[2022-06-20 15:13] VITALS: BP 107/57; PULSE 86; RESP 18; TEMP 36.7; O2SAT 96
[2022-06-20 16:08] LABS: Glucose, Whole Blood 155 mg/dL (60-115)
--- NOTE | 2022-06-20 17:59 | PC.NURSE ---
bulb drain drainage brown in color compare to yesterday being green,Dr. Post made aware.
--- NOTE | 2022-06-20 18:13 | PC.NURSE ---
Silver alginate drsg applied to two very small openings present at the top of mid abdominal incision as ordered
[2022-06-20 19:34] VITALS: BP 128/69; PULSE 99; RESP 19; TEMP 36.7; O2SAT 98
[2022-06-20 19:47] LABS: Glucose, Whole Blood 138 mg/dL (60-115)
[2022-06-20] MEDS: Atorvastatin Calcium 10 MG TABLET PO (20:59)
[2022-06-20] MEDS: Sertraline HCL 50 MG TABLET 150 MG PO (20:59)
[2022-06-20] MEDS: traZODone HCL 50 MG TABLET 150 MG PO (21:01)
[2022-06-21] VITALS: BP 131/70; PULSE 90; RESP 18; TEMP 37; O2SAT 99
[2022-06-21] MEDS: Fat Emulsions 20% 250 ML 37 ML IV ×2 (00:01→18:18)
[2022-06-21 03:17] VITALS: BP 124/64; PULSE 84; RESP 18; TEMP 36.7; O2SAT 99
[2022-06-21] MEDS: Heparin Sodium,Porcine 5,000 UNIT/ML VIAL 5000 UNIT SUBCUT ×3 (05:01→21:19)
[2022-06-21 06:48] LABS: Anion Gap 14 (12-20); Blood Urea Nitrogen 12 mg/dL (9-16); Calcium 7.9 mg/dL (8.4-10.2); Carbon Dioxide 25 mmol/L (22-29); Chloride 105 mmol/L (96-108); Creatinine Clr Calc Pharmacy 115.9; Estimated Glomerular Filt Rate > 60; Glucose Random 228 mg/dL (60-115); Potassium 4.4 mmol/L (3.3-5.1); Sodium 140 mmol/L (135-145)
[2022-06-21 07:32] VITALS: BP 112/67; PULSE 94; RESP 18; TEMP 37.3; O2SAT 94
[2022-06-21] MEDS: busPIRone HCl 5 MG TABLET PO (07:47)
[2022-06-21] MEDS: carvediloL 12.5 MG TABLET PO ×2 (07:47→21:20)
[2022-06-21] MEDS: levoFLOXacin/D5W 500 MG/100 ML PIGGYBACK 100 MG IV (07:48)
[2022-06-21] MEDS: Insulin Lispro 100 UNIT/ML 3 ML VIAL SUBCUT ×4 (07:48→21:18)
[2022-06-21] MEDS: 0.9 % Sodium Chloride Flush 3 ML SYRINGE IVFLUSH (07:48)
[2022-06-21] MEDS: Famotidine/PF 20 MG/2 ML VIAL IVPUSH ×2 (07:48→21:19)
[2022-06-21] MEDS: 0.9 % Sodium Chloride Flush 10 ML SYRINGE 5 ML IVFLUSH ×2 (07:49→21:21)
[2022-06-21 07:52] LABS: Glucose, Whole Blood 215 mg/dL (60-115)
[2022-06-21] MEDS: metroNIDAZOLE/NS 500 MG/100 ML PIGGYBACK 100 MG IV ×2 (09:06→16:59)
--- NOTE | 2022-06-21 09:24 | PM.PNGS ---
Subjective Subjective Date of Service: 06/21/22 <Bertha Fernandez PA-C - Last Filed: 06/21/22 09:30> 06/22/22 <Lit Norton MD - Last Filed: 06/22/22 12:48> Interval history: Uneventful weekend. Feeling well this morning. Continues with soft stools, passing flatus. OOB and ambulating halls multiple times a day. <Bertha Fernandez PA-C - Last Filed: 06/21/22 09:30> Physical Exam Vital Signs: Vital Signs: Last Vital Signs Temp 99.1 F 06/21/22 07:32 Pulse 94 06/21/22 07:32 Resp 18 06/21/22 07:32 BP 112/67 06/21/22 07:32 Pulse Ox 94 06/21/22 07:32 O2 Del Method 06/21/22 07:32 O2 Flow Rate 2 06/17/22 23:46 Oxygen Flow Rate 2 06/17/22 04:00 BMI result Body Mass Index 38.4 <Bertha Fernandez PA-C - Last Filed: 06/21/22 09:30> Const: General: comfortable, no acute distress and alert <Bertha Fernandez PA-C - Last Filed: 06/21/22 09:30> Orientation/consciousness: patient oriented x3 <YESENIA Wilson Last Filed: 06/21/22 09:30> Resp: Effort & Inspection: normal respiratory effort <Bertha Fernandez PA-C - Last Filed: 06/21/22 09:30> GI: Other: MARY drain more purulent appearing, less enteric <Bertha Fernandez PA-C - Last Filed: 06/21/22 09:30> Inspection: Yes distended (remains significantly distended but slightly improved) and Yes incision (clean, opening at distal aspect, some serosanguineous drainage) <YESENIA Wilson Last Filed: 06/21/22 09:30> Palpation (GI): Soft to palpation, Tenderness to palpation present (GI) (mild), no guarding and not rigid <YESENIA Wilson Last Filed: 06/21/22 09:30> Percussion: Yes tympanic to percussion <Bertha Fernandez PA-C - Last Filed: 06/21/22 09:30> Skin: General skin exam: no rashes or lesions noted <Berhta Fernandez PA-C - Last Filed: 06/21/22 09:30> Neuro: General: patient oriented x3 <Bertha Fernandez PA-C - Last Filed: 06/21/22 09:30> Objective Data Active Medications Al Hydroxide/Mg Hydroxide (Magnesium Hydrox/Alum Hydrox 30 Ml Oral.Susp) 30 ml PO Q6H PRN PRN Reason: heartburn Last Admin: 06/18/22 00:37 Dose: 30 ml Documented By: PETEY Albuterol Sulfate (Albuterol Sulfate (0.042%) 1.25 Mg/3 Ml Vial.Neb) 1.25 mg INHALE RQ6H PRN PRN Reason: shortness of breath Last Admin: 06/07/22 23:46 Dose: 1.25 mg Documented By: STEPHANIE Atorvastatin Calcium (Atorvastatin Calcium 10 Mg Tablet) 10 mg PO BEDTIME [facility] Last Admin: 06/20/22 20:59 Dose: 10 mg Documented By: GOYO Buspirone HCl (Buspirone Hcl 5 Mg Tablet) 5 mg PO DAILY [facility] Last Admin: 06/21/22 07:47 Dose: 5 mg Documented By: SUE Carvedilol (Carvedilol 12.5 Mg Tablet) 12.5 mg PO BID [facility]; Protocol Last Admin: 06/21/22 07:47 Dose: 12.5 mg Documented By: SUE Dextrose (Dextrose 50 % 25 Gm/50 Ml Syringe) 25 gm IVPUSH Q15M PRN; Protocol PRN Reason: per Hypoglycemia Standing Ord. Famotidine (Famotidine/Pf 20 Mg/2 Ml Vial) 20 mg IVPUSH BID [facility] Last Admin: 06/21/22 07:48 Dose: 20 mg Documented By: SUE Glucose (Glucose Gel 15 Gm Gel..Gram.) 15 gm PO Q15M PRN; Protocol PRN Reason: per Hypoglycemia Standing Ord. Heparin Sodium (Porcine) (Heparin Sodium,Porcine 5,000 Unit/Ml Vial) 5,000 unit SUBCUT Q8H [facility] Last Admin: 06/21/22 05:01 Dose: 5,000 unit Documented By: BHAVESH Promethazine HCl 12.5 mg/ (Sodium Chloride) 50.5 mls @ 202 mls/hr IV Q6H PRN PRN Reason: Nausea and Vomiting Acetaminophen (Ofirmev) 1,000 mg in 100 mls @ 400 mls/hr IV Q6H PRN PRN Reason: abdominal pain Last Infusion: 06/07/22 17:16 Dose: 0 mls/hr Documented By: NYA Metronidazole (Flagyl) 500 mg in 100 mls @ 100 mls/hr IV Q8H [facility] Last Admin: 06/21/22 09:06 Dose: 100 mls/hr Documented By: SUE Levofloxacin (Levaquin) 500 mg in 100 mls @ 100 mls/hr IV Q24H [facility] Last Infusion: 06/21/22 09:03 Dose: 0 mls/hr Documented By: SUE Potassium Chloride 20 meq/Sodium Chloride 50 meq/Magnesium Sulfate 10 meq/Potassium Phosphate 30 mmol/Calcium Gluconate 9.3 meq/Multivitamins 10 ml/ Trace Metals 1 ml/ Amino Acids/Dextrose 2,040 mls @ 85 mls/hr IV DAILY@1800 [facility] Stop: 06/21/22 17:59 Last Admin: 06/20/22 18:37 Dose: 85 mls/hr Documented By: GOYO Insulin Human Lispro (Insulin Lispro 100 Unit/Ml 3 Ml Vial) 0 unit SUBCUT QIDACHS [facility]; Protocol Last Admin: 06/21/22 07:48 Dose: 7 unit Documented By: SUE Morphine Sulfate (Morphine Sulfate 2 Mg/Ml Cartridge) 2 mg IVPUSH Q3H PRN; Protocol PRN Reason: Pain, Severe (Pain Scale 7-10) Ondansetron HCl (Ondansetron Hcl 4 Mg/2 Ml Vial) 4 mg IVPUSH Q8H PRN PRN Reason: Nausea Last Admin: 06/11/22 23:51 Dose: 4 mg Documented By: OZORALB Oxycodone HCl (Oxycodone Hcl Immed Release 5 Mg Tablet) 10 mg PO Q4H PRN PRN Reason: Pain, Moderate (Pain Scale 4-6 Last Admin: 06/16/22 21:24 Dose: 10 mg Documented By: BHAVESH Sertraline HCl (Sertraline Hcl 50 Mg Tablet) 150 mg PO BEDTIME [facility] Last Admin: 06/20/22 20:59 Dose: 150 mg Documented By: GOYO Simethicone (Simethicone 80 Mg Tab.Chew) 80 mg PO QIDWMHS PRN PRN Reason: gassiness Last Admin: 06/12/22 22:18 Dose: 80 mg Documented By: SUMEET Sodium Chloride (0.9 % Sodium Chloride Flush 3 Ml Syringe) 3 ml IVFLUSH QSHIFT [facility] Last Admin: 06/21/22 07:48 Dose: 3 ml Documented By: SUE Sodium Chloride (0.9 % Sodium Chloride Flush 10 Ml Syringe) 5 ml IVFLUSH TID [facility] Last Admin: 06/21/22 07:49 Dose: 5 ml Documented By: SUE Trazodone HCl (Trazodone Hcl 50 Mg Tablet) 150 mg PO BEDTIME [facility] Last Admin: 06/20/22 21:01 Dose: 150 mg Documented By: GOYO <Bertha Fernandez PA-C - Last Filed: 06/21/22 09:30> Labs CBC & Chem 7: : 06/12/22 07:52 06/22/22 06:25 <Bertha Fernandez PA-C - Last Filed: 06/21/22 09:30> Labs: Laboratory Results - last 24 hr 06/20/22 06/20/22 06/20/22 11:26 15:16 19:37 Anion Gap Estim Creat Clear Calc Estimated GFR POC Glucose 167 H 155 H 138 H Random Glucose Calcium 06/21/22 06/21/22 05:51 07:30 Anion Gap 14 Estim Creat Clear Calc 115.9 Estimated GFR > 60 POC Glucose 215 H Random Glucose 228 H Calcium 7.9 L <Bertha Fernandez PA-C - Last Filed: 06/21/22 09:30> Procedures Date of Service Date of Service: 06/21/22 <Bertha Fernandez PA-C - Last Filed: 06/21/22 09:30> Progress Note: A&P Assessment and plan (1) Intra-abdominal abscess: Status: Acute <Bertha Fernandez PA-C - Last Filed: 06/21/22 09:30> Assessment and Plan: Denies abdominal pain Passing flatus and BMs Ambulates MARY drain with less output apparently Abdomen distended but soft and benign Will continue with current care - explained this to She does state that she is frustrated that this has been taking too long If with no further improvement of drain output plan laparotomy next week <Lit Norton MD - Last Filed: 06/22/22 12:48> (2) S/P right colectomy: Status: Acute <Bertha Fernandez PA-C - Last Filed: 06/21/22 09:30> Assessment and Plan: 56 year old male who underwent 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 Post op course complicated by post op ileus, intraabdominal collection, respiratory distress. He is s/p IR drainage last week which drained enteric contents. 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 Repeat CT scan on 06/15/22 showed no new collection but residual fluid aspirated and MARY drain left. Fluid filled bowel loops although air distally, likely ileus. He is making progress, albiet slowly. Abd remains distended and tympanitic but continues to have some GI function. MARY output decreasing and actually more purulent appearing instead of enteric now. Will continue current management of IV levaquin/flagyl. Cont TPN, PICC line and bowel rest in hopes to continue to let inflammation subside. Encouraged OOB/ambulation of halls 4x per day and IS use. Patient and family comfortable with plan. <Bertha Fernandez PA-C - Last Filed: 06/21/22 09:30> Time Spent With Patient Time: Total time spent is greater than 50% in coordination of care (as documented) at patient's floor/unit and/or counseling patient: <Bertha Fernandez PA-C - Last Filed: 06/21/22 09:30> Quality Stroke Does the patient have a stroke diagnosis?: No <YESENIA Wilson Last Filed: 06/21/22 09:30> VTE Prior VTE?: No <Bertha Fernandez PA-C - Last Filed: 06/21/22 09:30> VTE Risk Level:: Medical - moderate - high <Bertha Fernandez PA-C - Last Filed: 06/21/22 09:30> VTE Device Contraindication: N/A - Device Ordered <YESENIA Wilson Last Filed: 06/21/22 09:30> VTE Drug Contraindication: N/A - Med Ordered <YESENIA Wilson Last Filed: 06/21/22 09:30>
[2022-06-21 09:36] LABS: Albumin Level 2.5 g/dL (3.5-5.0); Magnesium 2.1 mg/dL (1.6-2.6); Phosphorus 3.8 mg/dL (2.7-4.5)
--- NOTE | 2022-06-21 10:06 | P.PNIM_ITS ---
Subjective Subjective Date of Service: 06/21/22 Interval History: Being followed for post up ileus, intra-abdominal collection in respiratory distress At present patient is awake alert sitting comfortably, denies abdominal pain passing flatus having loose stools remains NPO on IV TPN due to fistula between bowel and abscess being managed by General surgery Review of Systems [employer] no headache no dizziness General no fevers no chills Respiratory no shortness of breath no cough Review of Systems: Yes all other systems are reviewed and are negative Physical Exam Vital Signs: Vital Signs: Last Vital Signs Temp 99.1 F 06/21/22 07:32 Pulse 94 06/21/22 07:32 Resp 18 06/21/22 07:32 BP 112/67 06/21/22 07:32 Pulse Ox 94 06/21/22 07:32 O2 Del Method 06/21/22 07:32 O2 Flow Rate 2 06/17/22 23:46 Oxygen Flow Rate 2 06/17/22 04:00 BMI result Body Mass Index 38.4 Const: Other: General awake alert,in no acute distress.? Neck supple no JVD. CVS? regular rate rhythm, Respiratory lungs clear to auscultation, diminished at bases, no respiratory distress, no wheeze, no rhonchi. Gastrointestinal abdomen distended, bowel sounds audible, no guarding , no rigidity, healed incision, right-sided drain in place, with thick creamy drainage Extremities mild pitting edema. Neuro nonfocal patient moving all 4 extremity speech clear. Skin no rash Psych appropriate affect Objective Data Active Medications Al Hydroxide/Mg Hydroxide (Magnesium Hydrox/Alum Hydrox 30 Ml Oral.Susp) 30 ml PO Q6H PRN PRN Reason: heartburn Last Admin: 06/18/22 00:37 Dose: 30 ml Documented By: PETEY Albuterol Sulfate (Albuterol Sulfate (0.042%) 1.25 Mg/3 Ml Vial.Neb) 1.25 mg INHALE RQ6H PRN PRN Reason: shortness of breath Last Admin: 06/07/22 23:46 Dose: 1.25 mg Documented By: STEPHANIE Atorvastatin Calcium (Atorvastatin Calcium 10 Mg Tablet) 10 mg PO BEDTIME [facility] Last Admin: 06/20/22 20:59 Dose: 10 mg Documented By: GOYO Buspirone HCl (Buspirone Hcl 5 Mg Tablet) 5 mg PO DAILY [facility] Last Admin: 06/21/22 07:47 Dose: 5 mg Documented By: SUE Carvedilol (Carvedilol 12.5 Mg Tablet) 12.5 mg PO BID [facility]; Protocol Last Admin: 06/21/22 07:47 Dose: 12.5 mg Documented By: SUE Dextrose (Dextrose 50 % 25 Gm/50 Ml Syringe) 25 gm IVPUSH Q15M PRN; Protocol PRN Reason: per Hypoglycemia Standing Ord. Famotidine (Famotidine/Pf 20 Mg/2 Ml Vial) 20 mg IVPUSH BID [facility] Last Admin: 06/21/22 07:48 Dose: 20 mg Documented By: SUE Glucose (Glucose Gel 15 Gm Gel..Gram.) 15 gm PO Q15M PRN; Protocol PRN Reason: per Hypoglycemia Standing Ord. Heparin Sodium (Porcine) (Heparin Sodium,Porcine 5,000 Unit/Ml Vial) 5,000 unit SUBCUT Q8H [facility] Last Admin: 06/21/22 05:01 Dose: 5,000 unit Documented By: BHAVESH Promethazine HCl 12.5 mg/ (Sodium Chloride) 50.5 mls @ 202 mls/hr IV Q6H PRN PRN Reason: Nausea and Vomiting Acetaminophen (Ofirmev) 1,000 mg in 100 mls @ 400 mls/hr IV Q6H PRN PRN Reason: abdominal pain Last Infusion: 06/07/22 17:16 Dose: 0 mls/hr Documented By: NYA Metronidazole (Flagyl) 500 mg in 100 mls @ 100 mls/hr IV Q8H [facility] Last Admin: 06/21/22 09:06 Dose: 100 mls/hr Documented By: SUE Levofloxacin (Levaquin) 500 mg in 100 mls @ 100 mls/hr IV Q24H [facility] Last Infusion: 06/21/22 09:03 Dose: 0 mls/hr Documented By: SUE Potassium Chloride 20 meq/Sodium Chloride 50 meq/Magnesium Sulfate 10 meq/Potassium Phosphate 30 mmol/Calcium Gluconate 9.3 meq/Multivitamins 10 ml/ Trace Metals 1 ml/ Amino Acids/Dextrose 2,040 mls @ 85 mls/hr IV DAILY@1800 [facility] Stop: 06/21/22 17:59 Last Admin: 06/20/22 18:37 Dose: 85 mls/hr Documented By: GOYO Insulin Human Lispro (Insulin Lispro 100 Unit/Ml 3 Ml Vial) 0 unit SUBCUT QIDACHS [facility]; Protocol Last Admin: 06/21/22 07:48 Dose: 7 unit Documented By: SUE Morphine Sulfate (Morphine Sulfate 2 Mg/Ml Cartridge) 2 mg IVPUSH Q3H PRN; Protocol PRN Reason: Pain, Severe (Pain Scale 7-10) Ondansetron HCl (Ondansetron Hcl 4 Mg/2 Ml Vial) 4 mg IVPUSH Q8H PRN PRN Reason: Nausea Last Admin: 06/11/22 23:51 Dose: 4 mg Documented By: SUMEET Oxycodone HCl (Oxycodone Hcl Immed Release 5 Mg Tablet) 10 mg PO Q4H PRN PRN Reason: Pain, Moderate (Pain Scale 4-6 Last Admin: 06/16/22 21:24 Dose: 10 mg Documented By: BHAVESH Sertraline HCl (Sertraline Hcl 50 Mg Tablet) 150 mg PO BEDTIME [facility] Last Admin: 06/20/22 20:59 Dose: 150 mg Documented By: GOYO Simethicone (Simethicone 80 Mg Tab.Chew) 80 mg PO QIDWMHS PRN PRN Reason: gassiness Last Admin: 06/12/22 22:18 Dose: 80 mg Documented By: SUMEET Sodium Chloride (0.9 % Sodium Chloride Flush 3 Ml Syringe) 3 ml IVFLUSH QSHIFT [facility] Last Admin: 06/21/22 07:48 Dose: 3 ml Documented By: SUE Sodium Chloride (0.9 % Sodium Chloride Flush 10 Ml Syringe) 5 ml IVFLUSH TID [facility] Last Admin: 06/21/22 07:49 Dose: 5 ml Documented By: SUE Trazodone HCl (Trazodone Hcl 50 Mg Tablet) 150 mg PO BEDTIME [facility] Last Admin: 06/20/22 21:01 Dose: 150 mg Documented By: GOYO Labs CBC & Chem 7: 06/12/22 07:52 06/21/22 05:51 Labs: Laboratory Results - last 24 hr 06/20/22 06/20/22 06/20/22 11:26 15:16 19:37 Anion Gap Estim Creat Clear Calc Estimated GFR POC Glucose 167 H 155 H 138 H Random Glucose Calcium Phosphorus Magnesium Albumin 06/21/22 06/21/22 05:51 07:30 Anion Gap 14 Estim Creat Clear Calc 115.9 Estimated GFR > 60 POC Glucose 215 H Random Glucose 228 H Calcium 7.9 L Phosphorus 3.8 Magnesium 2.1 Albumin 2.5 L Assessment and Plan (1) Intra-abdominal abscess: Status: Acute (2) JENNIFER (acute kidney injury): Status: Acute Plan d#20 (surgical service) 56yo M with HTN, DM, KYM on CPAP, morbid obesity, migraines, depression admitted to General Surgery for resection of appendiceal adenoCA medicine consulted for management of DM, hypoxia and HTN # 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 Cultures grew Bacteroides fragilis, PCN/AMP-resistant; changed pip-glen to levofloxacin + metronidazole d#7 - continue TPN via PICC, NPO - encourage OOB/ambulation, IS - repeat CT 06/14- no new collection, no additional drain needed # gastritis - continue IV Pepcid # acute hypercarbic/hypoxic resp failure/# KYM - continue nocturnal CPAP, IS, ambulation - PNA treated with 5d of azithromycin, now on levofloxacin as above - cardiac workup negative/room air 94% # hypoK - resolved, continue TPN # JENNIFER - resolved s/p IV fluids # thrombocytopenia - resolved # DM2 -adjust insulin based on sugars # HTN - continue carvedilol; held HCTZ + losartan due to JENNIFER; BP normal # HLD - continue statin # mood disorder - continue sertraline, buspirone, trazodone # smudge cells on CBC - no lymphocytosis or leukocytosis; outpt Heme f/u # obesity - weight loss counseling # VTE ppx: UFH Need for inaptient hospitalization: Defer to surgery. Will continue to follow on needed basis Quality Stroke Does the patient have a stroke diagnosis?: No VTE Prior VTE?: No VTE Risk Level:: Medical - moderate - high VTE Device Contraindication: N/A - Device Ordered VTE Drug Contraindication: N/A - Med Ordered
[2022-06-21 11:18] VITALS: BP 103/62; PULSE 84; RESP 18; TEMP 37.1; O2SAT 97
[2022-06-21 11:47] LABS: Glucose, Whole Blood 160 mg/dL (60-115)
--- NOTE | 2022-06-21 13:26 | MHC.CLN ---
F/U CONTINUES NPO WITH TPN LABS REVIEWED RECOMMEND CONTINUE TPN AT MAX GOAL RATE: TPN [id number] AT 85ML PER HOUR WITH 37 ML OF 20% LIPIDS X 12 HRS PROVIDES 2336 KCALS (27 KCALS/KG BASED ON CMW), 102 G PROTEIN (1.17 G/KG) REPLETE LYTES NEEDED FOLLOW FOR TPN, LABS, AND DIET UPGRADE/TOLERANCE
[2022-06-21 15:43] VITALS: BP 117/68; PULSE 83; RESP 18; TEMP 36.2; O2SAT 98
[2022-06-21 16:37] LABS: Glucose, Whole Blood 136 mg/dL (60-115)
[2022-06-21 19:25] VITALS: BP 124/69; PULSE 85; RESP 19; TEMP 36.3; O2SAT 95
[2022-06-21 19:47] LABS: Glucose, Whole Blood 143 mg/dL (60-115)
[2022-06-21] MEDS: traZODone HCL 50 MG TABLET 150 MG PO (21:19)
[2022-06-21] MEDS: Sertraline HCL 50 MG TABLET 150 MG PO (21:19)
[2022-06-21] MEDS: Atorvastatin Calcium 10 MG TABLET PO (21:20)
[2022-06-22] VITALS (7 sets, daily range): BP systolic 114–126; BP diastolic 58–77; PULSE 85–93; RESP 17–19; TEMP 36.4–36.8; O2SAT 95–98
[2022-06-22] MEDS: Fat Emulsions 20% 250 ML 37 ML IV ×3 (00:05→23:57)
[2022-06-22] MEDS: metroNIDAZOLE/NS 500 MG/100 ML PIGGYBACK 100 MG IV ×3 (01:15→16:50)
[2022-06-22] MEDS: Heparin Sodium,Porcine 5,000 UNIT/ML VIAL 5000 UNIT SUBCUT ×3 (05:59→20:58)
[2022-06-22 06:54] LABS: Anion Gap 13 (12-20); Blood Urea Nitrogen 11 mg/dL (9-16); Calcium 7.8 mg/dL (8.4-10.2); Carbon Dioxide 26 mmol/L (22-29); Chloride 106 mmol/L (96-108); Creatinine Clr Calc Pharmacy 121.1; Estimated Glomerular Filt Rate > 60; Glucose Random 214 mg/dL (60-115); Potassium 4.4 mmol/L (3.3-5.1); Sodium 141 mmol/L (135-145)
[2022-06-22 08:07] LABS: Glucose, Whole Blood 206 mg/dL (60-115)
[2022-06-22] MEDS: Insulin Lispro 100 UNIT/ML 3 ML VIAL SUBCUT ×4 (08:14→20:58)
[2022-06-22] MEDS: levoFLOXacin/D5W 500 MG/100 ML PIGGYBACK 100 MG IV (08:14)
[2022-06-22] MEDS: Famotidine/PF 20 MG/2 ML VIAL IVPUSH ×2 (08:14→20:58)
[2022-06-22] MEDS: busPIRone HCl 5 MG TABLET PO (08:14)
[2022-06-22] MEDS: carvediloL 12.5 MG TABLET PO ×2 (08:14→20:58)
[2022-06-22] MEDS: 0.9 % Sodium Chloride Flush 3 ML SYRINGE IVFLUSH (08:15)
[2022-06-22] MEDS: 0.9 % Sodium Chloride Flush 10 ML SYRINGE 5 ML IVFLUSH ×2 (08:15→21:09)
[2022-06-22 10:38] LABS: Albumin Level 2.5 g/dL (3.5-5.0); Magnesium 1.7 mg/dL (1.6-2.6); Phosphorus 3.9 mg/dL (2.7-4.5)
[2022-06-22 11:23] LABS: Glucose, Whole Blood 172 mg/dL (60-115)
--- NOTE | 2022-06-22 12:48 | PM.PNGS ---
Subjective Subjective Date of Service: 06/23/22 Interval history: feels well denies abdl pain good flatus abd BMs Physical Exam Vital Signs: Vital Signs: Last Vital Signs Temp 98.0 F 06/22/22 12:00 Pulse 87 06/22/22 12:00 Resp 18 06/22/22 12:00 BP 114/65 06/22/22 12:00 Pulse Ox 96 06/22/22 12:00 O2 Del Method 06/22/22 12:00 O2 Flow Rate 2 06/17/22 23:46 Oxygen Flow Rate 2 06/17/22 04:00 BMI result Body Mass Index 38.4 Const: General: comfortable and no acute distress Resp: Effort & Inspection: normal respiratory effort Cardio: Rate: regular rate GI: Other: distended but soft, nontender, no guarding or rebound, incision healing Objective Data Active Medications Al Hydroxide/Mg Hydroxide (Magnesium Hydrox/Alum Hydrox 30 Ml Oral.Susp) 30 ml PO Q6H PRN PRN Reason: heartburn Last Admin: 06/18/22 00:37 Dose: 30 ml Documented By: PETEY Albuterol Sulfate (Albuterol Sulfate (0.042%) 1.25 Mg/3 Ml Vial.Neb) 1.25 mg INHALE RQ6H PRN PRN Reason: shortness of breath Last Admin: 06/07/22 23:46 Dose: 1.25 mg Documented By: STEPHANIE Atorvastatin Calcium (Atorvastatin Calcium 10 Mg Tablet) 10 mg PO BEDTIME [facility] Last Admin: 06/21/22 21:20 Dose: 10 mg Documented By: YOSSI Buspirone HCl (Buspirone Hcl 5 Mg Tablet) 5 mg PO DAILY [facility] Last Admin: 06/22/22 08:14 Dose: 5 mg Documented By: SUE Carvedilol (Carvedilol 12.5 Mg Tablet) 12.5 mg PO BID [facility]; Protocol Last Admin: 06/22/22 08:14 Dose: 12.5 mg Documented By: SUE Dextrose (Dextrose 50 % 25 Gm/50 Ml Syringe) 25 gm IVPUSH Q15M PRN; Protocol PRN Reason: per Hypoglycemia Standing Ord. Famotidine (Famotidine/Pf 20 Mg/2 Ml Vial) 20 mg IVPUSH BID [facility] Last Admin: 06/22/22 08:14 Dose: 20 mg Documented By: SUE Glucose (Glucose Gel 15 Gm Gel..Gram.) 15 gm PO Q15M PRN; Protocol PRN Reason: per Hypoglycemia Standing Ord. Heparin Sodium (Porcine) (Heparin Sodium,Porcine 5,000 Unit/Ml Vial) 5,000 unit SUBCUT Q8H [facility] Last Admin: 06/22/22 05:59 Dose: 5,000 unit Documented By: YOSSI Promethazine HCl 12.5 mg/ (Sodium Chloride) 50.5 mls @ 202 mls/hr IV Q6H PRN PRN Reason: Nausea and Vomiting Acetaminophen (Ofirmev) 1,000 mg in 100 mls @ 400 mls/hr IV Q6H PRN PRN Reason: abdominal pain Last Infusion: 06/07/22 17:16 Dose: 0 mls/hr Documented By: NYA Metronidazole (Flagyl) 500 mg in 100 mls @ 100 mls/hr IV Q8H [facility] Last Infusion: 06/22/22 10:52 Dose: 0 mls/hr Documented By: SUE Levofloxacin (Levaquin) 500 mg in 100 mls @ 100 mls/hr IV Q24H [facility] Last Infusion: 06/22/22 09:57 Dose: 0 mls/hr Documented By: SUE Potassium Chloride 20 meq/Sodium Chloride 50 meq/Magnesium Sulfate 10 meq/Potassium Phosphate 30 mmol/Calcium Gluconate 9.3 meq/Multivitamins 10 ml/ Trace Metals 1 ml/ Amino Acids/Dextrose 2,040 mls @ 85 mls/hr IV DAILY@1800 [facility] Stop: 06/22/22 17:59 Last Admin: 06/21/22 18:11 Dose: 85 mls/hr Documented By: SUE Potassium Chloride 20 meq/Sodium Chloride 50 meq/Magnesium Sulfate 10 meq/Potassium Phosphate 30 mmol/Calcium Gluconate 9.3 meq/Multivitamins 10 ml/ Trace Metals 1 ml/ Amino Acids/Dextrose 2,040 mls @ 85 mls/hr IV DAILY@1800 [facility] Stop: 06/23/22 17:59 Fat Emulsion Intravenous (Intralipid) 222 mls @ 37 mls/hr IV DAILY@1800 [facility] Stop: 06/22/22 23:59 Fat Emulsion Intravenous (Intralipid) 222 mls @ 37 mls/hr IV DAILY@0000 [facility] Stop: 06/23/22 05:59 Insulin Human Lispro (Insulin Lispro 100 Unit/Ml 3 Ml Vial) 0 unit SUBCUT QIDACHS [facility]; Protocol Last Admin: 06/22/22 11:59 Dose: 4 unit Documented By: SUE Ondansetron HCl (Ondansetron Hcl 4 Mg/2 Ml Vial) 4 mg IVPUSH Q8H PRN PRN Reason: Nausea Last Admin: 06/11/22 23:51 Dose: 4 mg Documented By: SUMEET Sertraline HCl (Sertraline Hcl 50 Mg Tablet) 150 mg PO BEDTIME [facility] Last Admin: 06/21/22 21:19 Dose: 150 mg Documented By: YOSSI Simethicone (Simethicone 80 Mg Tab.Chew) 80 mg PO QIDWMHS PRN PRN Reason: gassiness Last Admin: 06/12/22 22:18 Dose: 80 mg Documented By: SUMEET Sodium Chloride (0.9 % Sodium Chloride Flush 3 Ml Syringe) 3 ml IVFLUSH QSHIFT [facility] Last Admin: 06/22/22 08:15 Dose: 3 ml Documented By: SUE Sodium Chloride (0.9 % Sodium Chloride Flush 10 Ml Syringe) 5 ml IVFLUSH TID [facility] Last Admin: 06/22/22 08:15 Dose: 5 ml Documented By: SUE Trazodone HCl (Trazodone Hcl 50 Mg Tablet) 150 mg PO BEDTIME [facility] Last Admin: 06/21/22 21:19 Dose: 150 mg Documented By: YOSSI Labs CBC & Chem 7: 06/12/22 07:52 06/23/22 09:41 Labs: Laboratory Results - last 24 hr 06/21/22 06/21/22 06/22/22 15:47 19:29 06:25 Anion Gap 13 Estim Creat Clear Calc 121.1 Estimated GFR > 60 POC Glucose 136 H 143 H Random Glucose 214 H Calcium 7.8 L Phosphorus 3.9 Magnesium 1.7 Albumin 2.5 L 06/22/22 06/22/22 07:58 11:13 Anion Gap Estim Creat Clear Calc Estimated GFR POC Glucose 206 H 172 H Random Glucose Calcium Phosphorus Magnesium Albumin Procedures Date of Service Date of Service: 06/22/22 Progress Note: A&P Assessment and plan (1) Intra-abdominal abscess: Status: Acute Assessment and Plan: s/p right colon resection for CA seems to have a fistulous tract to abscess drain output persistent continue TPN doing well but likely to need laparotomy in view of persistent output from drain allowing time for postop inflammatory changes to settle down Time Spent With Patient Time: Total time spent is greater than 50% in coordination of care (as documented) at patient's floor/unit and/or counseling patient: Quality Stroke Does the patient have a stroke diagnosis?: No VTE Prior VTE?: No VTE Risk Level:: Medical - moderate - high VTE Device Contraindication: N/A - Device Ordered VTE Drug Contraindication: N/A - Med Ordered
[2022-06-22 15:33] LABS: Glucose, Whole Blood 137 mg/dL (60-115)
--- NOTE | 2022-06-22 18:52 | PC.NURSE ---
Midline dressing change done by surgical PA, CD&I
[2022-06-22 20:11] LABS: Glucose, Whole Blood 146 mg/dL (60-115)
[2022-06-22] MEDS: Sertraline HCL 50 MG TABLET 150 MG PO (20:57)
[2022-06-22] MEDS: traZODone HCL 50 MG TABLET 150 MG PO (20:58)
[2022-06-22] MEDS: Atorvastatin Calcium 10 MG TABLET PO (20:58)
[2022-06-23] VITALS (7 sets, daily range): BP systolic 101–143; BP diastolic 55–75; PULSE 81–88; RESP 17–18; TEMP 36.1–37.8; O2SAT 95–98
[2022-06-23] MEDS: metroNIDAZOLE/NS 500 MG/100 ML PIGGYBACK 100 MG IV ×3 (00:58→16:12)
[2022-06-23] MEDS: Heparin Sodium,Porcine 5,000 UNIT/ML VIAL 5000 UNIT SUBCUT ×3 (06:05→20:53)
[2022-06-23 07:38] LABS: Glucose, Whole Blood 197 mg/dL (60-115)
[2022-06-23] MEDS: busPIRone HCl 5 MG TABLET PO (08:06)
[2022-06-23] MEDS: Famotidine/PF 20 MG/2 ML VIAL IVPUSH ×2 (08:06→20:53)
[2022-06-23] MEDS: Insulin Lispro 100 UNIT/ML 3 ML VIAL SUBCUT ×4 (08:06→20:53)
[2022-06-23] MEDS: carvediloL 12.5 MG TABLET PO ×2 (08:06→20:52)
[2022-06-23] MEDS: 0.9 % Sodium Chloride Flush 10 ML SYRINGE 5 ML IVFLUSH ×2 (08:07→16:19)
[2022-06-23] MEDS: levoFLOXacin/D5W 500 MG/100 ML PIGGYBACK 100 MG IV (08:07)
--- NOTE | 2022-06-23 09:26 | P.PNGS_ITS ---
Subjective Subjective Date of Service: 06/23/22 <Bertha Fernandez PA-C - Last Filed: 06/23/22 09:30> 06/24/22 <Lit Norton MD - Last Filed: 06/24/22 08:59> Interval history: No new complaints. Having small, solid BMs. Denies nausea. Ambulating halls multiple times per day. <Bertha Fernandez PA-C - Last Filed: 06/23/22 09:30> Physical Exam Vital Signs: Vital Signs: Last Vital Signs Temp 98.4 F 06/23/22 07:55 Pulse 85 06/23/22 07:55 Resp 18 06/23/22 07:55 BP 143/75 H 06/23/22 07:55 Pulse Ox 96 06/23/22 07:55 O2 Del Method 06/23/22 07:55 O2 Flow Rate 2 06/17/22 23:46 Oxygen Flow Rate 2 06/17/22 04:00 BMI result Body Mass Index 38.4 <Bertha Fernandez PA-C - Last Filed: 06/23/22 09:30> Const: General: comfortable, no acute distress and alert <Bertha Fernandez PA-C - Last Filed: 06/23/22 09:30> Orientation/consciousness: patient oriented x3 <Bertha Fernandez PA-C - Last Filed: 06/23/22 09:30> Resp: Effort & Inspection: normal respiratory effort <Bertha Fernandez PA-C - Last Filed: 06/23/22 09:30> GI: Other: incision clean, small openings throughout incision, largest at distal aspect <Bertha Fernandez PA-C - Last Filed: 06/23/22 09:30> Inspection: Yes distended (significantly) <YESENIA Wilson Last Filed: 06/23/22 09:30> Palpation (GI): Soft to palpation, nontender, no guarding and not rigid <YESENIA Wilson Last Filed: 06/23/22 09:30> Percussion: Yes tympanic to percussion <YESENIA Wilson Last Filed: 11/09/22 09:30> Skin: General skin exam: no rashes or lesions noted <Bertha Fernandez PA-C - Last Filed: 06/23/22 09:30> Neuro: General: patient oriented x3 and moves all extremities <Bertha Fernandez PA-C - Last Filed: 06/23/22 09:30> Objective Data Active Medications Al Hydroxide/Mg Hydroxide (Magnesium Hydrox/Alum Hydrox 30 Ml Oral.Susp) 30 ml PO Q6H PRN PRN Reason: heartburn Last Admin: 06/18/22 00:37 Dose: 30 ml Documented By: PETEY Albuterol Sulfate (Albuterol Sulfate (0.042%) 1.25 Mg/3 Ml Vial.Neb) 1.25 mg INHALE RQ6H PRN PRN Reason: shortness of breath Last Admin: 06/07/22 23:46 Dose: 1.25 mg Documented By: STEPHANIE Atorvastatin Calcium (Atorvastatin Calcium 10 Mg Tablet) 10 mg PO BEDTIME [facility] Last Admin: 06/22/22 20:58 Dose: 10 mg Documented By: YOSSI Buspirone HCl (Buspirone Hcl 5 Mg Tablet) 5 mg PO DAILY [facility] Last Admin: 06/23/22 08:06 Dose: 5 mg Documented By: AYLIN Carvedilol (Carvedilol 12.5 Mg Tablet) 12.5 mg PO BID [facility]; Protocol Last Admin: 06/23/22 08:06 Dose: 12.5 mg Documented By: AYLIN Dextrose (Dextrose 50 % 25 Gm/50 Ml Syringe) 25 gm IVPUSH Q15M PRN; Protocol PRN Reason: per Hypoglycemia Standing Ord. Famotidine (Famotidine/Pf 20 Mg/2 Ml Vial) 20 mg IVPUSH BID [facility] Last Admin: 06/23/22 08:06 Dose: 20 mg Documented By: AYLIN Glucose (Glucose Gel 15 Gm Gel..Gram.) 15 gm PO Q15M PRN; Protocol PRN Reason: per Hypoglycemia Standing Ord. Heparin Sodium (Porcine) (Heparin Sodium,Porcine 5,000 Unit/Ml Vial) 5,000 unit SUBCUT Q8H [facility] Last Admin: 06/23/22 06:05 Dose: 5,000 unit Documented By: YOSSI Promethazine HCl 12.5 mg/ (Sodium Chloride) 50.5 mls @ 202 mls/hr IV Q6H PRN PRN Reason: Nausea and Vomiting Acetaminophen (Ofirmev) 1,000 mg in 100 mls @ 400 mls/hr IV Q6H PRN PRN Reason: abdominal pain Last Infusion: 06/07/22 17:16 Dose: 0 mls/hr Documented By: NYA Metronidazole (Flagyl) 500 mg in 100 mls @ 100 mls/hr IV Q8H [facility] Last Infusion: 06/23/22 02:02 Dose: 0 mls/hr Documented By: YOSSI Levofloxacin (Levaquin) 500 mg in 100 mls @ 100 mls/hr IV Q24H [facility] Last Admin: 06/23/22 08:07 Dose: 100 mls/hr Documented By: AYLIN Potassium Chloride 20 meq/Sodium Chloride 50 meq/Magnesium Sulfate 10 meq/Potassium Phosphate 30 mmol/Calcium Gluconate 9.3 meq/Multivitamins 10 ml/ Trace Metals 1 ml/ Amino Acids/Dextrose 2,040 mls @ 85 mls/hr IV DAILY@1800 [facility] Stop: 06/23/22 17:59 Last Admin: 06/22/22 18:33 Dose: 85 mls/hr Documented By: SUE Insulin Human Lispro (Insulin Lispro 100 Unit/Ml 3 Ml Vial) 0 unit SUBCUT QIDACHS [facility]; Protocol Last Admin: 06/23/22 08:06 Dose: 4 unit Documented By: AYLIN Ondansetron HCl (Ondansetron Hcl 4 Mg/2 Ml Vial) 4 mg IVPUSH Q8H PRN PRN Reason: Nausea Last Admin: 06/11/22 23:51 Dose: 4 mg Documented By: SUMEET Sertraline HCl (Sertraline Hcl 50 Mg Tablet) 150 mg PO BEDTIME [facility] Last Admin: 06/22/22 20:57 Dose: 150 mg Documented By: YOSSI Simethicone (Simethicone 80 Mg Tab.Chew) 80 mg PO QIDWMHS PRN PRN Reason: gassiness Last Admin: 06/12/22 22:18 Dose: 80 mg Documented By: SUMEET Sodium Chloride (0.9 % Sodium Chloride Flush 3 Ml Syringe) 3 ml IVFLUSH QSHIFT [facility] Last Admin: 06/23/22 08:10 Dose: Not Given Documented By: AYLIN Non-Admin Reason: PICC Sodium Chloride (0.9 % Sodium Chloride Flush 10 Ml Syringe) 5 ml IVFLUSH TID [facility] Last Admin: 06/23/22 08:07 Dose: 5 ml Documented By: AYLIN Trazodone HCl (Trazodone Hcl 50 Mg Tablet) 150 mg PO BEDTIME [facility] Last Admin: 06/22/22 20:58 Dose: 150 mg Documented By: YOSSI <Bertha Fernandez PA-C - Last Filed: 06/23/22 09:30> Labs CBC & Chem 7: : 06/12/22 07:52 06/24/22 07:44 <Bertha Fernandez PA-C - Last Filed: 06/23/22 09:30> Labs: Laboratory Results - last 24 hr 06/22/22 06/22/22 06/22/22 06:25 11:13 15:17 POC Glucose 172 H 137 H Phosphorus 3.9 Magnesium 1.7 Albumin 2.5 L 06/22/22 06/23/22 19:44 07:19 POC Glucose 146 H 197 H Phosphorus Magnesium Albumin <Bertha Fernandez PA-C - Last Filed: 06/23/22 09:30> Procedures Date of Service Date of Service: 06/23/22 <YESENIA Wilson Last Filed: 06/23/22 09:30> Progress Note: A&P Assessment and plan (1) Intra-abdominal abscess: Status: Acute <Bertha Fernandez PA-C - Last Filed: 06/23/22 09:30> Assessment and Plan: He continues to do well Denies any abdominal pain He has good flatus and bowel movements The drain has minimal output at this time Abdomen distended but soft and very benign Again I explained to him and his that the plan is to repeat laparotomy if the drain output does not decrease. 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 Post op course complicated by post op ileus, intraabdominal collection, respiratory distress. He is s/p IR drainage last week which drained enteric contents. 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 Repeat CT scan on 06/15/22 showed no new collection but re sidual fluid aspirated and MARY drain left. Drain continues with moderate-high enteric appearing output. Will continue current management of IV abx, TPN, PICC line and bowel rest in hopes to continue to let post op inflammation subside. Still appears laparotomy will be ultimately necessary, likely next week. Encouraged OOB/ambulation of halls 4x per day and IS use. Patient and comfortable with plan. <Bertha Fernandez PA-C - Last Filed: 06/23/22 09:30> Time Spent With Patient Time: Total time spent is greater than 50% in coordination of care (as documented) at patient's floor/unit and/or counseling patient: <Bertha Fernandez PA-C - Last Filed: 06/23/22 09:30> Quality Stroke Does the patient have a stroke diagnosis?: No <Bertha Fernandez PA-C - Last Filed: 06/23/22 09:30> VTE Prior VTE?: No <Bertha Fernandez PA-C - Last Filed: 06/23/22 09:30> VTE Risk Level:: Medical - moderate - high <Bertha Fernandez PA-C - Last Filed: 06/23/22 09:30> VTE Device Contraindication: N/A - Device Ordered <Bertha Fernandez PA-C - Last Filed: 06/23/22 09:30> VTE Drug Contraindication: N/A - Med Ordered <Bertha Fernandez PA-C - Last Filed: 06/23/22 09:30>
[2022-06-23 10:07] LABS: Albumin Level 2.6 g/dL (3.5-5.0); Anion Gap 13 (12-20); Blood Urea Nitrogen 11 mg/dL (9-16); Calcium 7.9 mg/dL (8.4-10.2); Carbon Dioxide 25 mmol/L (22-29); Chloride 106 mmol/L (96-108); Creatinine Clr Calc Pharmacy 131.4; Estimated Glomerular Filt Rate > 60; Glucose Random 205 mg/dL (60-115); Magnesium 1.7 mg/dL (1.6-2.6); Phosphorus 3.5 mg/dL (2.7-4.5); Potassium 4.3 mmol/L (3.3-5.1); Sodium 140 mmol/L (135-145); Triglycerides 87 mg/dL
[2022-06-23 11:18] LABS: Glucose, Whole Blood 141 mg/dL (60-115)
--- NOTE | 2022-06-23 12:03 | MHC.CLN ---
F/U CONTINUES NPO WITH TPN LABS REVIEWED. DISCUSSED WITH PHARMACY. RECOMMEND CONTINUE TPN AT MAX GOAL RATE: TPN D15AA5 AT 85ML PER HOUR WITH 37 ML OF 20% LIPIDS X 12 HRS PROVIDES 2336 KCALS (27 KCALS/KG BASED ON CMW), 102 G PROTEIN (1.17 G/KG) REPLETE LYTES NEEDED FOLLOW FOR TPN, LABS, AND DIET UPGRADE/TOLERANCE.
--- NOTE | 2022-06-23 15:43 | PC.NURSE ---
Per Dr Norton, pt bronson to have juice and water. No jello.
[2022-06-23 15:52] LABS: Glucose, Whole Blood 150 mg/dL (60-115)
[2022-06-23] MEDS: Fat Emulsions 20% 250 ML 37 ML IV (18:09)
[2022-06-23 20:13] LABS: Glucose, Whole Blood 151 mg/dL (60-115)
[2022-06-23] MEDS: Sertraline HCL 50 MG TABLET 150 MG PO (20:52)
[2022-06-23] MEDS: traZODone HCL 50 MG TABLET 150 MG PO (20:52)
[2022-06-23] MEDS: Atorvastatin Calcium 10 MG TABLET PO (20:52)
[2022-06-24] MEDS: Fat Emulsions 20% 250 ML 37 ML IV ×3 (00:21→23:48)
[2022-06-24] MEDS: metroNIDAZOLE/NS 500 MG/100 ML PIGGYBACK 100 MG IV ×4 (00:21→23:48)
[2022-06-24] MEDS: 0.9 % Sodium Chloride Flush 3 ML SYRINGE IVFLUSH ×3 (00:33→19:27)
[2022-06-24 03:16] VITALS: BP 108/58; PULSE 85; RESP 18; TEMP 37.2; O2SAT 95
[2022-06-24] MEDS: Heparin Sodium,Porcine 5,000 UNIT/ML VIAL 5000 UNIT SUBCUT ×3 (05:26→22:44)
[2022-06-24 07:33] VITALS: BP 118/67; PULSE 90; RESP 17; TEMP 37.1; O2SAT 93
[2022-06-24 07:42] LABS: Glucose, Whole Blood 195 mg/dL (60-115)
[2022-06-24 08:37] LABS: Albumin Level 2.5 g/dL (3.5-5.0); Anion Gap 11 (12-20); Blood Urea Nitrogen 10 mg/dL (9-16); Calcium 7.7 mg/dL (8.4-10.2); Carbon Dioxide 27 mmol/L (22-29); Chloride 106 mmol/L (96-108); Creatinine Clr Calc Pharmacy 126.8; Estimated Glomerular Filt Rate > 60; Glucose Random 228 mg/dL (60-115); Magnesium 1.7 mg/dL (1.6-2.6); Phosphorus 3.8 mg/dL (2.7-4.5); Potassium 4.3 mmol/L (3.3-5.1); Sodium 140 mmol/L (135-145)
--- NOTE | 2022-06-24 08:59 | PM.PNGS ---
Subjective Subjective Date of Service: 06/25/22 Interval history: feels well hungry, wants to eat denies abdominal pain good flatus and BMs Physical Exam Vital Signs: Vital Signs: Last Vital Signs Temp 98.7 F 06/24/22 07:33 Pulse 90 06/24/22 07:33 Resp 17 06/24/22 07:33 BP 118/67 06/24/22 07:33 Pulse Ox 93 06/24/22 07:33 O2 Del Method 06/24/22 07:33 O2 Flow Rate 2 06/17/22 23:46 Oxygen Flow Rate 2 06/17/22 04:00 BMI result Body Mass Index 38.4 Const: General: comfortable and no acute distress Resp: Effort & Inspection: normal respiratory effort Cardio: Rate: regular rate GI: Other: distended but soft, no guarding rebound, MARY drain in place, small thick dark greenish output Objective Data Active Medications Al Hydroxide/Mg Hydroxide (Magnesium Hydrox/Alum Hydrox 30 Ml Oral.Susp) 30 ml PO Q6H PRN PRN Reason: heartburn Last Admin: 06/18/22 00:37 Dose: 30 ml Documented By: PETEY Atorvastatin Calcium (Atorvastatin Calcium 10 Mg Tablet) 10 mg PO BEDTIME [facility] Last Admin: 06/23/22 20:52 Dose: 10 mg Documented By: TIN Buspirone HCl (Buspirone Hcl 5 Mg Tablet) 5 mg PO DAILY [facility] Last Admin: 06/23/22 08:06 Dose: 5 mg Documented By: AYLIN Carvedilol (Carvedilol 12.5 Mg Tablet) 12.5 mg PO BID [facility]; Protocol Last Admin: 06/23/22 20:52 Dose: 12.5 mg Documented By: TIN Comments: ZC=349/61 H=81 Dextrose (Dextrose 50 % 25 Gm/50 Ml Syringe) 25 gm IVPUSH Q15M PRN; Protocol PRN Reason: per Hypoglycemia Standing Ord. Famotidine (Famotidine/Pf 20 Mg/2 Ml Vial) 20 mg IVPUSH BID [facility] Last Admin: 06/23/22 20:53 Dose: 20 mg Documented By: TIN Glucose (Glucose Gel 15 Gm Gel..Gram.) 15 gm PO Q15M PRN; Protocol PRN Reason: per Hypoglycemia Standing Ord. Heparin Sodium (Porcine) (Heparin Sodium,Porcine 5,000 Unit/Ml Vial) 5,000 unit SUBCUT Q8H [facility] Last Admin: 06/24/22 05:26 Dose: 5,000 unit Documented By: TIN Promethazine HCl 12.5 mg/ (Sodium Chloride) 50.5 mls @ 202 mls/hr IV Q6H PRN PRN Reason: Nausea and Vomiting Acetaminophen (Ofirmev) 1,000 mg in 100 mls @ 400 mls/hr IV Q6H PRN PRN Reason: abdominal pain Last Infusion: 06/07/22 17:16 Dose: 0 mls/hr Documented By: NYA Metronidazole (Flagyl) 500 mg in 100 mls @ 100 mls/hr IV Q8H [facility] Last Infusion: 06/24/22 01:31 Dose: 0 mls/hr Documented By: TIN Potassium Chloride 20 meq/Sodium Chloride 50 meq/Magnesium Sulfate 10 meq/Potassium Phosphate 30 mmol/Calcium Gluconate 9.3 meq/Multivitamins 10 ml/ Trace Metals 1 ml/ Amino Acids/Dextrose 2,040 mls @ 85 mls/hr IV DAILY@1800 [facility] Stop: 06/24/22 17:59 Last Admin: 06/23/22 18:10 Dose: 85 mls/hr Documented By: AYLIN Insulin Human Lispro (Insulin Lispro 100 Unit/Ml 3 Ml Vial) 0 unit SUBCUT QIDACHS [facility]; Protocol Last Admin: 06/23/22 20:53 Dose: 4 unit Documented By: TIN Ondansetron HCl (Ondansetron Hcl 4 Mg/2 Ml Vial) 4 mg IVPUSH Q8H PRN PRN Reason: Nausea Last Admin: 06/11/22 23:51 Dose: 4 mg Documented By: SUMEET Sertraline HCl (Sertraline Hcl 50 Mg Tablet) 150 mg PO BEDTIME [facility] Last Admin: 06/23/22 20:52 Dose: 150 mg Documented By: TIN Simethicone (Simethicone 80 Mg Tab.Chew) 80 mg PO QIDWMHS PRN PRN Reason: gassiness Last Admin: 06/12/22 22:18 Dose: 80 mg Documented By: SUMEET Sodium Chloride (0.9 % Sodium Chloride Flush 3 Ml Syringe) 3 ml IVFLUSH QSHIFT [facility] Last Admin: 06/24/22 00:33 Dose: 3 ml Documented By: TIN Sodium Chloride (0.9 % Sodium Chloride Flush 10 Ml Syringe) 5 ml IVFLUSH TID [facility] Last Admin: 06/23/22 21:51 Dose: Not Given Documented By: TIN Non-Admin Reason: IV Running Trazodone HCl (Trazodone Hcl 50 Mg Tablet) 150 mg PO BEDTIME [facility] Last Admin: 06/23/22 20:52 Dose: 150 mg Documented By: TIN Labs CBC & Chem 7: 06/12/22 07:52 06/25/22 06:47 Labs: Laboratory Results - last 24 hr 06/23/22 06/23/22 06/23/22 09:41 11:14 15:13 Anion Gap 13 Estim Creat Clear Calc 131.4 Estimated GFR > 60 POC Glucose 141 H 150 H Random Glucose 205 H Calcium 7.9 L Phosphorus 3.5 Magnesium 1.7 Albumin 2.6 L Triglycerides 87 06/23/22 06/24/22 06/24/22 20:07 07:30 07:44 Anion Gap 11 L Estim Creat Clear Calc 126.8 Estimated GFR > 60 POC Glucose 151 H 195 H Random Glucose 228 H Calcium 7.7 L Phosphorus 3.8 Magnesium 1.7 Albumin 2.5 L Triglycerides Procedures Date of Service Date of Service: 06/25/22 Progress Note: A&P Assessment and plan (1) Intra-abdominal abscess: Status: Acute Assessment and Plan: continues to do well clinically still with output from MARY although this seems inconsistent likely to have ileus connection to abscess cavity, may be from anastomosis clinically doing well but I have explained to him that we may need to do laparotomy for fistulous connection continue to TPN looks well ambulating okay to have sips of clear liquids Time Spent With Patient Time: Total time spent is greater than 50% in coordination of care (as documented) at patient's floor/unit and/or counseling patient: Quality Stroke Does the patient have a stroke diagnosis?: No VTE Prior VTE?: No VTE Risk Level:: Medical - moderate - high VTE Device Contraindication: N/A - Device Ordered VTE Drug Contraindication: N/A - Med Ordered
[2022-06-24] MEDS: carvediloL 12.5 MG TABLET PO ×2 (09:00→19:26)
[2022-06-24] MEDS: busPIRone HCl 5 MG TABLET PO (09:01)
[2022-06-24] MEDS: Famotidine/PF 20 MG/2 ML VIAL IVPUSH ×2 (09:01→19:26)
[2022-06-24] MEDS: Insulin Lispro 100 UNIT/ML 3 ML VIAL SUBCUT ×4 (09:01→19:33)
[2022-06-24 11:41] VITALS: BP 125/58; PULSE 86; RESP 18; TEMP 37.2; O2SAT 98
[2022-06-24 11:46] LABS: Glucose, Whole Blood 162 mg/dL (60-115)
--- NOTE | 2022-06-24 14:19 | MHC.CM.PN ---
PATIENT STILL NOT READY FOR DC. INFLAMMATION AND TPN CASE MANAGEMENT FOLLOWING.
[2022-06-24 15:34] LABS: Glucose, Whole Blood 143 mg/dL (60-115)
[2022-06-24 15:43] VITALS: BP 131/70; PULSE 91; RESP 18; TEMP 37.4; O2SAT 97
[2022-06-24 19:24] VITALS: BP 112/64; PULSE 89; RESP 18; TEMP 37.4; O2SAT 96
[2022-06-24] MEDS: Atorvastatin Calcium 10 MG TABLET PO (19:26)
[2022-06-24] MEDS: Sertraline HCL 50 MG TABLET 150 MG PO (19:27)
[2022-06-24 19:37] LABS: Glucose, Whole Blood 129 mg/dL (60-115)
[2022-06-24] MEDS: traZODone HCL 50 MG TABLET 150 MG PO (22:43)
[2022-06-24 23:43] VITALS: BP 118/56; PULSE 83; RESP 17; TEMP 37.1; O2SAT 96
[2022-06-25 03:59] VITALS: BP 118/62; PULSE 95; RESP 18; TEMP 36.8; O2SAT 96
[2022-06-25] MEDS: Heparin Sodium,Porcine 5,000 UNIT/ML VIAL 5000 UNIT SUBCUT ×3 (05:51→20:54)
[2022-06-25 07:24] VITALS: BP 114/77; PULSE 95; RESP 17; TEMP 36.8; O2SAT 94
[2022-06-25 07:38] LABS: Glucose, Whole Blood 200 mg/dL (60-115)
[2022-06-25 07:51] LABS: Anion Gap 11 (12-20); Blood Urea Nitrogen 12 mg/dL (9-16); Calcium 8.1 mg/dL (8.4-10.2); Carbon Dioxide 27 mmol/L (22-29); Chloride 108 mmol/L (96-108); Creatinine Clr Calc Pharmacy 125.3; Estimated Glomerular Filt Rate > 60; Glucose Random 206 mg/dL (60-115); Potassium 4.3 mmol/L (3.3-5.1); Sodium 142 mmol/L (135-145)
[2022-06-25] MEDS: Insulin Lispro 100 UNIT/ML 3 ML VIAL SUBCUT ×4 (08:38→20:54)
[2022-06-25] MEDS: carvediloL 12.5 MG TABLET PO ×2 (08:39→20:53)
[2022-06-25] MEDS: metroNIDAZOLE/NS 500 MG/100 ML PIGGYBACK 100 MG IV ×2 (08:39→16:53)
[2022-06-25] MEDS: busPIRone HCl 5 MG TABLET PO (08:39)
[2022-06-25] MEDS: 0.9 % Sodium Chloride Flush 3 ML SYRINGE IVFLUSH (08:39)
[2022-06-25] MEDS: Famotidine/PF 20 MG/2 ML VIAL IVPUSH ×2 (08:39→20:54)
[2022-06-25 08:57] LABS: Magnesium 1.7 mg/dL (1.6-2.6)
[2022-06-25 09:02] LABS: Phosphorus 3.9 mg/dL (2.7-4.5)
--- NOTE | 2022-06-25 09:44 | P.PNGS_ITS ---
Subjective Subjective Date of Service: 06/27/22 Interval history: feels well passing good flatus wants to eat has BMs Physical Exam Vital Signs: Vital Signs: Last Vital Signs Temp 98.3 F 06/25/22 07:24 Pulse 95 06/25/22 07:24 Resp 17 06/25/22 07:24 BP 114/77 06/25/22 07:24 Pulse Ox 94 06/25/22 07:24 O2 Del Method 06/25/22 07:24 O2 Flow Rate 2 06/17/22 23:46 Oxygen Flow Rate 2 06/17/22 04:00 BMI result Body Mass Index 38.4 Const: General: comfortable and no acute distress Resp: Effort & Inspection: normal respiratory effort Cardio: Rate: regular rate GI: Other: distended but soft Palpation (GI): Soft to palpation, not firm, nontender and no guarding Objective Data Active Medications Al Hydroxide/Mg Hydroxide (Magnesium Hydrox/Alum Hydrox 30 Ml Oral.Susp) 30 ml PO Q6H PRN PRN Reason: heartburn Last Admin: 06/18/22 00:37 Dose: 30 ml Documented By: PETEY Atorvastatin Calcium (Atorvastatin Calcium 10 Mg Tablet) 10 mg PO BEDTIME [facility] Last Admin: 06/24/22 19:26 Dose: 10 mg Documented By: TIN Buspirone HCl (Buspirone Hcl 5 Mg Tablet) 5 mg PO DAILY [facility] Last Admin: 06/25/22 08:39 Dose: 5 mg Documented By: SAMUEL Carvedilol (Carvedilol 12.5 Mg Tablet) 12.5 mg PO BID [facility]; Protocol Last Admin: 06/25/22 08:39 Dose: 12.5 mg Documented By: SAMUEL Dextrose (Dextrose 50 % 25 Gm/50 Ml Syringe) 25 gm IVPUSH Q15M PRN; Protocol PRN Reason: per Hypoglycemia Standing Ord. Famotidine (Famotidine/Pf 20 Mg/2 Ml Vial) 20 mg IVPUSH BID [facility] Last Admin: 06/25/22 08:39 Dose: 20 mg Documented By: SAMUEL Glucose (Glucose Gel 15 Gm Gel..Gram.) 15 gm PO Q15M PRN; Protocol PRN Reason: per Hypoglycemia Standing Ord. Heparin Sodium (Porcine) (Heparin Sodium,Porcine 5,000 Unit/Ml Vial) 5,000 unit SUBCUT Q8H [facility] Last Admin: 06/25/22 05:51 Dose: 5,000 unit Documented By: TIN Promethazine HCl 12.5 mg/ (Sodium Chloride) 50.5 mls @ 202 mls/hr IV Q6H PRN PRN Reason: Nausea and Vomiting Acetaminophen (Ofirmev) 1,000 mg in 100 mls @ 400 mls/hr IV Q6H PRN PRN Reason: abdominal pain Last Infusion: 06/07/22 17:16 Dose: 0 mls/hr Documented By: NYA Metronidazole (Flagyl) 500 mg in 100 mls @ 100 mls/hr IV Q8H [facility] Last Admin: 06/25/22 08:39 Dose: 100 mls/hr Documented By: SAMUEL Potassium Chloride 20 meq/Sodium Chloride 50 meq/Magnesium Sulfate 10 meq/Potassium Phosphate 30 mmol/Calcium Gluconate 9.3 meq/Multivitamins 10 ml/ Trace Metals 1 ml/ Amino Acids/Dextrose 2,040 mls @ 85 mls/hr IV DAILY@1800 [facility] Stop: 06/25/22 17:59 Last Admin: 06/24/22 17:56 Dose: 85 mls/hr Documented By: SAMUEL Insulin Human Lispro (Insulin Lispro 100 Unit/Ml 3 Ml Vial) 0 unit SUBCUT QIDACHS [facility]; Protocol Last Admin: 06/25/22 08:38 Dose: 4 unit Documented By: SAMUEL Ondansetron HCl (Ondansetron Hcl 4 Mg/2 Ml Vial) 4 mg IVPUSH Q8H PRN PRN Reason: Nausea Last Admin: 06/11/22 23:51 Dose: 4 mg Documented By: SUMEET Sertraline HCl (Sertraline Hcl 50 Mg Tablet) 150 mg PO BEDTIME [facility] Last Admin: 06/24/22 19:27 Dose: 150 mg Documented By: TIN Simethicone (Simethicone 80 Mg Tab.Chew) 80 mg PO QIDWMHS PRN PRN Reason: gassiness Last Admin: 06/12/22 22:18 Dose: 80 mg Documented By: SUMEET Sodium Chloride (0.9 % Sodium Chloride Flush 3 Ml Syringe) 3 ml IVFLUSH QSHIFT [facility] Last Admin: 06/25/22 08:39 Dose: 3 ml Documented By: SAMUEL Sodium Chloride (0.9 % Sodium Chloride Flush 10 Ml Syringe) 5 ml IVFLUSH TID [facility] Last Admin: 06/25/22 08:39 Dose: Not Given Documented By: SAMUEL Non-Admin Reason: IV Running Trazodone HCl (Trazodone Hcl 50 Mg Tablet) 150 mg PO BEDTIME [facility] Last Admin: 06/24/22 22:43 Dose: 150 mg Documented By: TIN Comments: pt requested to take med later than the scheduled time Labs CBC & Chem 7: 06/12/22 07:52 06/27/22 05:47 Labs: Laboratory Results - last 24 hr 06/24/22 06/24/22 06/24/22 11:39 15:28 19:22 Anion Gap Estim Creat Clear Calc Estimated GFR POC Glucose 162 H 143 H 129 H Random Glucose Calcium Phosphorus Magnesium 06/25/22 06/25/22 06:47 07:23 Anion Gap 11 L Estim Creat Clear Calc 125.3 Estimated GFR > 60 POC Glucose 200 H Random Glucose 206 H Calcium 8.1 L Phosphorus 3.9 Magnesium 1.7 Procedures Date of Service Date of Service: 06/27/22 Progress Note: A&P Assessment and plan (1) Intra-abdominal abscess: Status: Acute Assessment and Plan: drain in place- output seems to be decreasing he clinically looks well and has been comfortable ok have clear liquids plan is to see if drainage decreases suggesting closure of fistulous tract to cavity if with peristent high output - laparotomy he looks well TPN lytes ok Time Spent With Patient Time: Total time spent is greater than 50% in coordination of care (as documented) at patient's floor/unit and/or counseling patient: Quality Stroke Does the patient have a stroke diagnosis?: No VTE Prior VTE?: No VTE Risk Level:: Medical - moderate - high VTE Device Contraindication: N/A - Device Ordered VTE Drug Contraindication: N/A - Med Ordered
[2022-06-25 11:04] VITALS: BP 98/56; PULSE 80; RESP 17; TEMP 36.3; O2SAT 96
[2022-06-25 11:14] LABS: Glucose, Whole Blood 202 mg/dL (60-115)
--- NOTE | 2022-06-25 14:36 | MHC.CLN ---
F/U DIET ADVANCED TO CLEAR LIQUIDS TODAY. CONTINUES WITH TPN. LABS REVIEWED. RECOMMEND CONTINUE TPN AT MAX GOAL RATE: TPN D15AA5 AT 85ML PER HOUR WITH 37 ML OF 20% LIPIDS X 12 HRS PROVIDES 2336 KCALS (27 KCALS/KG BASED ON CMW), 102 G PROTEIN (1.17 G/KG). REPLETE LYTES NEEDED. FOLLOW FOR TPN, LABS, AND DIET UPGRADE/TOLERANCE.
[2022-06-25 15:14] VITALS: BP 129/69; PULSE 86; RESP 18; TEMP 37.4; O2SAT 96
[2022-06-25 16:01] LABS: Glucose, Whole Blood 141 mg/dL (60-115)
--- NOTE | 2022-06-25 16:39 | PM.EVENT ---
Event Note Date of Service: 06/25/22 Event Note: Late entry for 06/22/22 Since patient with no active medical issues, patient is not being followed by hospitalist team case discussed with Dr. Norton he agrees , recommend to consult if needed, will sign off
[2022-06-25] MEDS: Fat Emulsions 20% 250 ML 37 ML IV (17:54)
[2022-06-25 19:32] VITALS: BP 113/66; PULSE 96; RESP 18; TEMP 37.7; O2SAT 96
[2022-06-25 19:36] LABS: Glucose, Whole Blood 143 mg/dL (60-115)
[2022-06-25] MEDS: Atorvastatin Calcium 10 MG TABLET PO (20:53)
[2022-06-25] MEDS: traZODone HCL 50 MG TABLET 150 MG PO (20:53)
[2022-06-25] MEDS: Sertraline HCL 50 MG TABLET 150 MG PO (20:53)
[2022-06-25] MEDS: 0.9 % Sodium Chloride Flush 10 ML SYRINGE 5 ML IVFLUSH (20:54)
[2022-06-25 23:45] VITALS: BP 104/58; PULSE 87; RESP 18; TEMP 36.9; O2SAT 95
[2022-06-26] MEDS: Fat Emulsions 20% 250 ML 37 ML IV ×2 (00:02→18:25)
[2022-06-26] MEDS: metroNIDAZOLE/NS 500 MG/100 ML PIGGYBACK 100 MG IV ×3 (01:05→16:33)
[2022-06-26 03:40] VITALS: BP 103/55; PULSE 94; RESP 18; TEMP 36.8; O2SAT 95
[2022-06-26] MEDS: Heparin Sodium,Porcine 5,000 UNIT/ML VIAL 5000 UNIT SUBCUT ×3 (05:59→20:41)
[2022-06-26 06:11] LABS: Anion Gap 12 (12-20); Blood Urea Nitrogen 11 mg/dL (9-16); Calcium 8.1 mg/dL (8.4-10.2); Carbon Dioxide 27 mmol/L (22-29); Chloride 109 mmol/L (96-108); Creatinine Clr Calc Pharmacy 129.9; Estimated Glomerular Filt Rate > 60; Glucose Random 200 mg/dL (60-115); Potassium 4.6 mmol/L (3.3-5.1); Sodium 143 mmol/L (135-145)
[2022-06-26 07:35] LABS: Glucose, Whole Blood 202 mg/dL (60-115)
[2022-06-26 08:00] VITALS: BP 138/72; PULSE 100; RESP 18; TEMP 37.9; O2SAT 99
[2022-06-26 08:58] LABS: Albumin Level 2.6 g/dL (3.5-5.0); Magnesium 1.7 mg/dL (1.6-2.6); Phosphorus 4.1 mg/dL (2.7-4.5)
[2022-06-26] MEDS: carvediloL 12.5 MG TABLET PO ×2 (09:07→20:43)
[2022-06-26] MEDS: busPIRone HCl 5 MG TABLET PO (09:07)
[2022-06-26] MEDS: Insulin Lispro 100 UNIT/ML 3 ML VIAL SUBCUT ×3 (09:07→16:32)
[2022-06-26] MEDS: Famotidine/PF 20 MG/2 ML VIAL IVPUSH ×2 (09:08→20:41)
[2022-06-26] MEDS: 0.9 % Sodium Chloride Flush 3 ML SYRINGE IVFLUSH ×2 (09:09→16:33)
[2022-06-26] MEDS: 0.9 % Sodium Chloride Flush 10 ML SYRINGE 5 ML IVFLUSH ×2 (09:09→20:43)
--- NOTE | 2022-06-26 10:21 | P.PNGS_ITS ---
Subjective Subjective Date of Service: 06/27/22 Interval history: continues to feel well denies abdominal pain good flatus and bowel movements has been ambulating Physical Exam Vital Signs: Vital Signs: Last Vital Signs Temp 100.2 F 06/26/22 08:00 Pulse 100 06/26/22 08:00 Resp 18 06/26/22 08:00 BP 138/72 06/26/22 08:00 Pulse Ox 99 06/26/22 08:00 O2 Del Method 06/26/22 08:00 O2 Flow Rate 2 06/17/22 23:46 Oxygen Flow Rate 2 06/17/22 04:00 BMI result Body Mass Index 38.4 Const: General: comfortable and no acute distress Resp: Effort & Inspection: normal respiratory effort Cardio: Rhythm: regular rhythm GI: Other: distended but very soft, drain seems to have scanty thick output Palpation (GI): not firm, nontender and no guarding Objective Data Active Medications Al Hydroxide/Mg Hydroxide (Magnesium Hydrox/Alum Hydrox 30 Ml Oral.Susp) 30 ml PO Q6H PRN PRN Reason: heartburn Last Admin: 06/18/22 00:37 Dose: 30 ml Documented By: PETEY Atorvastatin Calcium (Atorvastatin Calcium 10 Mg Tablet) 10 mg PO BEDTIME [facility] Last Admin: 06/25/22 20:53 Dose: 10 mg Documented By: YOSSI Buspirone HCl (Buspirone Hcl 5 Mg Tablet) 5 mg PO DAILY [facility] Last Admin: 06/26/22 09:07 Dose: 5 mg Documented By: SUE Carvedilol (Carvedilol 12.5 Mg Tablet) 12.5 mg PO BID [facility]; Protocol Last Admin: 06/26/22 09:07 Dose: 12.5 mg Documented By: SUE Dextrose (Dextrose 50 % 25 Gm/50 Ml Syringe) 25 gm IVPUSH Q15M PRN; Protocol PRN Reason: per Hypoglycemia Standing Ord. Famotidine (Famotidine/Pf 20 Mg/2 Ml Vial) 20 mg IVPUSH BID [facility] Last Admin: 06/26/22 09:08 Dose: 20 mg Documented By: SUE Glucose (Glucose Gel 15 Gm Gel..Gram.) 15 gm PO Q15M PRN; Protocol PRN Reason: per Hypoglycemia Standing Ord. Heparin Sodium (Porcine) (Heparin Sodium,Porcine 5,000 Unit/Ml Vial) 5,000 unit SUBCUT Q8H [facility] Last Admin: 06/26/22 05:59 Dose: 5,000 unit Documented By: YOSSI Promethazine HCl 12.5 mg/ (Sodium Chloride) 50.5 mls @ 202 mls/hr IV Q6H PRN PRN Reason: Nausea and Vomiting Acetaminophen (Ofirmev) 1,000 mg in 100 mls @ 400 mls/hr IV Q6H PRN PRN Reason: abdominal pain Last Infusion: 06/07/22 17:16 Dose: 0 mls/hr Documented By: NYA Metronidazole (Flagyl) 500 mg in 100 mls @ 100 mls/hr IV Q8H [facility] Last Admin: 06/26/22 09:09 Dose: 100 mls/hr Documented By: SUE Potassium Chloride 20 meq/Sodium Chloride 50 meq/Magnesium Sulfate 10 meq/Potassium Phosphate 30 mmol/Calcium Gluconate 9.3 meq/Multivitamins 10 ml/ Trace Metals 1 ml/ Amino Acids/Dextrose 2,040 mls @ 85 mls/hr IV DAILY@1800 [facility] Stop: 06/26/22 17:59 Last Admin: 06/25/22 17:54 Dose: 85 mls/hr Documented By: SAMUEL Potassium Chloride 20 meq/Sodium Chloride 50 meq/Magnesium Sulfate 10 meq/Potassium Phosphate 30 mmol/Calcium Gluconate 9.3 meq/Multivitamins 10 ml/ Trace Metals 1 ml/ Amino Acids/Dextrose 2,040 mls @ 85 mls/hr IV DAILY@1800 [facility] Stop: 06/27/22 17:59 Fat Emulsion Intravenous (Intralipid) 222 mls @ 37 mls/hr IV DAILY@1800 [facility] Stop: 06/26/22 23:59 Fat Emulsion Intravenous (Intralipid) 222 mls @ 37 mls/hr IVCONT DAILY@0000 [facility] Stop: 06/27/22 05:59 Insulin Human Lispro (Insulin Lispro 100 Unit/Ml 3 Ml Vial) 0 unit SUBCUT QIDACHS [facility]; Protocol Last Admin: 06/26/22 09:07 Dose: 7 unit Documented By: SUE Ondansetron HCl (Ondansetron Hcl 4 Mg/2 Ml Vial) 4 mg IVPUSH Q8H PRN PRN Reason: Nausea Last Admin: 06/11/22 23:51 Dose: 4 mg Documented By: SUMEET Sertraline HCl (Sertraline Hcl 50 Mg Tablet) 150 mg PO BEDTIME [facility] Last Admin: 06/25/22 20:53 Dose: 150 mg Documented By: YOSSI Simethicone (Simethicone 80 Mg Tab.Chew) 80 mg PO QIDWMHS PRN PRN Reason: gassiness Last Admin: 06/12/22 22:18 Dose: 80 mg Documented By: SUMEET Sodium Chloride (0.9 % Sodium Chloride Flush 3 Ml Syringe) 3 ml IVFLUSH QSHIFT [facility] Last Admin: 06/26/22 09:09 Dose: 3 ml Documented By: SUE Sodium Chloride (0.9 % Sodium Chloride Flush 10 Ml Syringe) 5 ml IVFLUSH TID [facility] Last Admin: 06/26/22 09:09 Dose: 5 ml Documented By: SUE Trazodone HCl (Trazodone Hcl 50 Mg Tablet) 150 mg PO BEDTIME [facility] Last Admin: 06/25/22 20:53 Dose: 150 mg Documented By: YOSSI Labs CBC & Chem 7: 06/12/22 07:52 06/27/22 05:47 Labs: Laboratory Results - last 24 hr 06/25/22 06/25/22 06/25/22 11:03 15:19 19:30 Anion Gap Estim Creat Clear Calc Estimated GFR POC Glucose 202 H 141 H 143 H Random Glucose Calcium Phosphorus Magnesium Albumin 06/26/22 06/26/22 05:03 07:25 Anion Gap 12 Estim Creat Clear Calc 129.9 Estimated GFR > 60 POC Glucose 202 H Random Glucose 200 H Calcium 8.1 L Phosphorus 4.1 Magnesium 1.7 Albumin 2.6 L Procedures Date of Service Date of Service: 06/26/22 Progress Note: A&P Assessment and plan (1) Intra-abdominal abscess: Status: Acute Assessment and Plan: continues to look well ambulating low-grade temp - likely from poor level of activity abdomen remained soft MARY drain seems to have decreased output I will likely try to advance his diet slowly if MARY drain output continues to decrease and he is able to advance diet, hope to be able to avoid repeat laparotomy he wifeunderstand the plan Time Spent With Patient Time: Total time spent is greater than 50% in coordination of care (as documented) at patient's floor/unit and/or counseling patient: Quality Stroke Does the patient have a stroke diagnosis?: No VTE Prior VTE?: No VTE Risk Level:: Medical - moderate - high VTE Device Contraindication: N/A - Device Ordered VTE Drug Contraindication: N/A - Med Ordered
[2022-06-26 11:33] LABS: Glucose, Whole Blood 128 mg/dL (60-115)
[2022-06-26 12:00] VITALS: BP 110/55; PULSE 92; RESP 18; TEMP 37.1; O2SAT 96
[2022-06-26 15:40] LABS: Glucose, Whole Blood 141 mg/dL (60-115)
[2022-06-26 15:41] VITALS: BP 114/59; PULSE 83; RESP 18; TEMP 36.1; O2SAT 96
[2022-06-26 19:17] VITALS: BP 121/66; PULSE 83; RESP 18; TEMP 36.9; O2SAT 98
[2022-06-26 19:44] LABS: Glucose, Whole Blood 94 mg/dL (60-115)
[2022-06-26] MEDS: Sertraline HCL 50 MG TABLET 150 MG PO (20:42)
[2022-06-26] MEDS: traZODone HCL 50 MG TABLET 150 MG PO (20:42)
[2022-06-26] MEDS: Atorvastatin Calcium 10 MG TABLET PO (20:43)
[2022-06-26 23:49] VITALS: BP 118/63; PULSE 84; RESP 18; TEMP 36.9; O2SAT 95
[2022-06-27] MEDS: Fat Emulsions 20% 250 ML 37 ML IVCONT (00:02)
[2022-06-27] MEDS: metroNIDAZOLE/NS 500 MG/100 ML PIGGYBACK 100 MG IV ×3 (01:05→16:49)
[2022-06-27 03:36] VITALS: BP 98/61; PULSE 82; RESP 18; TEMP 36.7; O2SAT 95
[2022-06-27] MEDS: Heparin Sodium,Porcine 5,000 UNIT/ML VIAL 5000 UNIT SUBCUT ×3 (06:03→22:50)
[2022-06-27 07:25] LABS: Albumin Level 2.5 g/dL (3.5-5.0); Anion Gap 14 (12-20); Blood Urea Nitrogen 11 mg/dL (9-16); Calcium 8.1 mg/dL (8.4-10.2); Carbon Dioxide 25 mmol/L (22-29); Chloride 107 mmol/L (96-108); Creatinine Clr Calc Pharmacy 129.9; Estimated Glomerular Filt Rate > 60; Glucose Random 186 mg/dL (60-115); Magnesium 1.7 mg/dL (1.6-2.6); Potassium 4.5 mmol/L (3.3-5.1); Sodium 141 mmol/L (135-145)
[2022-06-27 07:50] LABS: Glucose, Whole Blood 182 mg/dL (60-115)
[2022-06-27 07:52] VITALS: BP 113/70; PULSE 101; RESP 18; TEMP 36.6; O2SAT 92
[2022-06-27] MEDS: carvediloL 12.5 MG TABLET PO ×2 (08:16→20:31)
[2022-06-27] MEDS: Famotidine/PF 20 MG/2 ML VIAL IVPUSH ×2 (08:16→20:32)
[2022-06-27] MEDS: Insulin Lispro 100 UNIT/ML 3 ML VIAL SUBCUT ×4 (08:16→20:31)
[2022-06-27] MEDS: busPIRone HCl 5 MG TABLET PO (08:16)
[2022-06-27] MEDS: 0.9 % Sodium Chloride Flush 3 ML SYRINGE IVFLUSH (08:17)
[2022-06-27] MEDS: 0.9 % Sodium Chloride Flush 10 ML SYRINGE 5 ML IVFLUSH ×2 (08:17→20:32)
--- NOTE | 2022-06-27 10:50 | PM.PNGS ---
Subjective Subjective Date of Service: 06/28/22 Interval history: no new complaints tolerating clear liquids denies abdominal pain passing flatus has good BMs Physical Exam Vital Signs: Vital Signs: Last Vital Signs Temp 97.8 F 06/27/22 07:52 Pulse 101 H 06/27/22 07:52 Resp 18 06/27/22 07:52 BP 113/70 06/27/22 07:52 Pulse Ox 92 06/27/22 07:52 O2 Del Method 06/27/22 07:52 O2 Flow Rate 2 06/17/22 23:46 Oxygen Flow Rate 2 06/17/22 04:00 BMI result Body Mass Index 38.4 Const: General: comfortable and no acute distress Resp: Effort & Inspection: normal respiratory effort Cardio: Rate: regular rate GI: Other: distended but soft, MARY drain with scanty output, greenish and purulent Palpation (GI): Soft to palpation, not firm, nontender and no guarding Objective Data Active Medications Al Hydroxide/Mg Hydroxide (Magnesium Hydrox/Alum Hydrox 30 Ml Oral.Susp) 30 ml PO Q6H PRN PRN Reason: heartburn Last Admin: 06/18/22 00:37 Dose: 30 ml Documented By: PETEY Atorvastatin Calcium (Atorvastatin Calcium 10 Mg Tablet) 10 mg PO BEDTIME [facility] Last Admin: 06/26/22 20:43 Dose: 10 mg Documented By: YOSSI Buspirone HCl (Buspirone Hcl 5 Mg Tablet) 5 mg PO DAILY [facility] Last Admin: 06/27/22 08:16 Dose: 5 mg Documented By: SUE Carvedilol (Carvedilol 12.5 Mg Tablet) 12.5 mg PO BID [facility]; Protocol Last Admin: 06/27/22 08:16 Dose: 12.5 mg Documented By: SUE Dextrose (Dextrose 50 % 25 Gm/50 Ml Syringe) 25 gm IVPUSH Q15M PRN; Protocol PRN Reason: per Hypoglycemia Standing Ord. Famotidine (Famotidine/Pf 20 Mg/2 Ml Vial) 20 mg IVPUSH BID [facility] Last Admin: 06/27/22 08:16 Dose: 20 mg Documented By: SUE Glucose (Glucose Gel 15 Gm Gel..Gram.) 15 gm PO Q15M PRN; Protocol PRN Reason: per Hypoglycemia Standing Ord. Heparin Sodium (Porcine) (Heparin Sodium,Porcine 5,000 Unit/Ml Vial) 5,000 unit SUBCUT Q8H [facility] Last Admin: 06/27/22 06:03 Dose: 5,000 unit Documented By: YOSSI Promethazine HCl 12.5 mg/ (Sodium Chloride) 50.5 mls @ 202 mls/hr IV Q6H PRN PRN Reason: Nausea and Vomiting Acetaminophen (Ofirmev) 1,000 mg in 100 mls @ 400 mls/hr IV Q6H PRN PRN Reason: abdominal pain Last Infusion: 06/07/22 17:16 Dose: 0 mls/hr Documented By: NYA Metronidazole (Flagyl) 500 mg in 100 mls @ 100 mls/hr IV Q8H [facility] Last Infusion: 06/27/22 09:34 Dose: 0 mls/hr Documented By: SUE Potassium Chloride 20 meq/Sodium Chloride 50 meq/Magnesium Sulfate 10 meq/Potassium Phosphate 30 mmol/Calcium Gluconate 9.3 meq/Multivitamins 10 ml/ Trace Metals 1 ml/ Amino Acids/Dextrose 2,040 mls @ 85 mls/hr IV DAILY@1800 [facility] Stop: 06/27/22 17:59 Last Admin: 06/26/22 18:26 Dose: 85 mls/hr Documented By: SUE Potassium Chloride 20 meq/Sodium Chloride 50 meq/Magnesium Sulfate 10 meq/Potassium Phosphate 30 mmol/Calcium Gluconate 9.3 meq/Multivitamins 10 ml/ Trace Metals 1 ml/ Amino Acids/Dextrose 2,040 mls @ 85 mls/hr IV DAILY@1800 [facility] Stop: 06/28/22 17:59 Fat Emulsion Intravenous (Intralipid) 222 mls @ 37 mls/hr IV DAILY@1800 [facility] Stop: 06/27/22 23:59 Fat Emulsion Intravenous (Intralipid) 222 mls @ 37 mls/hr IV DAILY@0000 [facility] Stop: 06/28/22 05:59 Insulin Human Lispro (Insulin Lispro 100 Unit/Ml 3 Ml Vial) 0 unit SUBCUT QIDACHS [facility]; Protocol Last Admin: 06/27/22 08:16 Dose: 4 unit Documented By: SUE Ondansetron HCl (Ondansetron Hcl 4 Mg/2 Ml Vial) 4 mg IVPUSH Q8H PRN PRN Reason: Nausea Last Admin: 06/11/22 23:51 Dose: 4 mg Documented By: SUMEET Sertraline HCl (Sertraline Hcl 50 Mg Tablet) 150 mg PO BEDTIME [facility] Last Admin: 06/26/22 20:42 Dose: 150 mg Documented By: YOSSI Simethicone (Simethicone 80 Mg Tab.Chew) 80 mg PO QIDWMHS PRN PRN Reason: gassiness Last Admin: 06/12/22 22:18 Dose: 80 mg Documented By: SUMEET Sodium Chloride (0.9 % Sodium Chloride Flush 3 Ml Syringe) 3 ml IVFLUSH QSHIFT [facility] Last Admin: 06/27/22 08:17 Dose: 3 ml Documented By: SUE Sodium Chloride (0.9 % Sodium Chloride Flush 10 Ml Syringe) 5 ml IVFLUSH TID [facility] Last Admin: 06/27/22 08:17 Dose: 5 ml Documented By: SUE Trazodone HCl (Trazodone Hcl 50 Mg Tablet) 150 mg PO BEDTIME [facility] Last Admin: 06/26/22 20:42 Dose: 150 mg Documented By: YOSSI Labs CBC & Chem 7: 06/12/22 07:52 06/28/22 05:35 Labs: Laboratory Results - last 24 hr 06/26/22 06/26/22 06/26/22 11:24 15:29 19:22 Anion Gap Estim Creat Clear Calc Estimated GFR POC Glucose 128 H 141 H 94 Random Glucose Calcium Phosphorus Magnesium Albumin 06/27/22 06/27/22 05:47 07:22 Anion Gap 14 Estim Creat Clear Calc 129.9 Estimated GFR > 60 POC Glucose 182 H Random Glucose 186 H Calcium 8.1 L Phosphorus 4.0 Magnesium 1.7 Albumin 2.5 L Procedures Date of Service Date of Service: 06/28/22 Progress Note: A&P Assessment and plan (1) S/P right colectomy: Status: Acute Assessment and Plan: with abscess and likely fistulous collection to GI tract drain has decreased in amount he clinically looks well distended but soft and benign passing flatus continue TPN will try full liquid diet he understands parameters for avoiding repeat laparotomy - if he is able to tolerate diet, with decreased output from drain Time Spent With Patient Time: Total time spent is greater than 50% in coordination of care (as documented) at patient's floor/unit and/or counseling patient: Quality Stroke Does the patient have a stroke diagnosis?: No VTE Prior VTE?: No VTE Risk Level:: Medical - moderate - high VTE Device Contraindication: N/A - Device Ordered VTE Drug Contraindication: N/A - Med Ordered
[2022-06-27 11:40] LABS: Glucose, Whole Blood 131 mg/dL (60-115)
[2022-06-27 12:00] VITALS: BP 114/64; PULSE 89; RESP 18; TEMP 36.1; O2SAT 96
[2022-06-27 15:34] VITALS: BP 131/78; PULSE 91; RESP 20; TEMP 36.6; O2SAT 98
[2022-06-27 15:44] LABS: Glucose, Whole Blood 134 mg/dL (60-115)
[2022-06-27] MEDS: Fat Emulsions 20% 250 ML 37 ML IV (17:56)
[2022-06-27 19:40] VITALS: BP 126/85; PULSE 92; RESP 18; TEMP 36.3; O2SAT 99
[2022-06-27 19:57] LABS: Glucose, Whole Blood 135 mg/dL (60-115)
[2022-06-27] MEDS: Atorvastatin Calcium 10 MG TABLET PO (20:31)
[2022-06-27] MEDS: Sertraline HCL 50 MG TABLET 150 MG PO (20:31)
[2022-06-27] MEDS: traZODone HCL 50 MG TABLET 150 MG PO (22:50)
[2022-06-28] VITALS: BP 115/65; PULSE 95; RESP 18; TEMP 36.7; O2SAT 95
[2022-06-28] MEDS: Fat Emulsions 20% 250 ML 37 ML IV ×2 (00:35→18:43)
[2022-06-28] MEDS: metroNIDAZOLE/NS 500 MG/100 ML PIGGYBACK 100 MG IV ×3 (00:39→17:32)
[2022-06-28 03:26] VITALS: BP 112/67; PULSE 91; RESP 18; TEMP 36.3; O2SAT 97
[2022-06-28] MEDS: Heparin Sodium,Porcine 5,000 UNIT/ML VIAL 5000 UNIT SUBCUT ×3 (05:31→22:43)
[2022-06-28 06:11] LABS: Anion Gap 12 (12-20); Blood Urea Nitrogen 11 mg/dL (9-16); Calcium 8.1 mg/dL (8.4-10.2); Carbon Dioxide 25 mmol/L (22-29); Chloride 108 mmol/L (96-108); Creatinine Clr Calc Pharmacy 129.9; Estimated Glomerular Filt Rate > 60; Glucose Random 207 mg/dL (60-115); Potassium 4.4 mmol/L (3.3-5.1); Sodium 141 mmol/L (135-145)
[2022-06-28 07:08] VITALS: BP 134/75; PULSE 88; RESP 18; TEMP 36.6; O2SAT 94
[2022-06-28 07:23] LABS: Glucose, Whole Blood 207 mg/dL (60-115)
[2022-06-28] MEDS: Famotidine/PF 20 MG/2 ML VIAL IVPUSH ×2 (07:56→20:59)
[2022-06-28] MEDS: Insulin Lispro 100 UNIT/ML 3 ML VIAL SUBCUT ×4 (07:56→20:59)
[2022-06-28] MEDS: 0.9 % Sodium Chloride Flush 3 ML SYRINGE IVFLUSH (07:57)
[2022-06-28] MEDS: busPIRone HCl 5 MG TABLET PO (07:57)
[2022-06-28] MEDS: carvediloL 12.5 MG TABLET PO ×2 (07:57→21:16)
--- NOTE | 2022-06-28 08:07 | PM.PNGS ---
Subjective Subjective Date of Service: 06/29/22 Interval history: says he feels great had full liquids - says he wants to advance to real food denies abdl pain ambulating good BMs, flatus Physical Exam Vital Signs: Vital Signs: Last Vital Signs Temp 97.9 F 06/28/22 07:08 Pulse 88 06/28/22 07:08 Resp 18 06/28/22 07:08 BP 134/75 06/28/22 07:08 Pulse Ox 94 06/28/22 07:08 O2 Del Method 06/28/22 07:08 O2 Flow Rate 2 06/28/22 03:26 Oxygen Flow Rate 2 06/17/22 04:00 BMI result Body Mass Index 38.4 Const: General: comfortable and no acute distress Resp: Effort & Inspection: normal respiratory effort Cardio: Rate: regular rate GI: Palpation (GI): Soft to palpation, not firm, nontender and no guarding Objective Data Active Medications Al Hydroxide/Mg Hydroxide (Magnesium Hydrox/Alum Hydrox 30 Ml Oral.Susp) 30 ml PO Q6H PRN PRN Reason: heartburn Last Admin: 06/18/22 00:37 Dose: 30 ml Documented By: PETEY Atorvastatin Calcium (Atorvastatin Calcium 10 Mg Tablet) 10 mg PO BEDTIME [facility] Last Admin: 06/27/22 20:31 Dose: 10 mg Documented By: TIN Buspirone HCl (Buspirone Hcl 5 Mg Tablet) 5 mg PO DAILY [facility] Last Admin: 06/28/22 07:57 Dose: 5 mg Documented By: SAMUEL Carvedilol (Carvedilol 12.5 Mg Tablet) 12.5 mg PO BID [facility]; Protocol Last Admin: 06/28/22 07:57 Dose: 12.5 mg Documented By: SAMUEL Dextrose (Dextrose 50 % 25 Gm/50 Ml Syringe) 25 gm IVPUSH Q15M PRN; Protocol PRN Reason: per Hypoglycemia Standing Ord. Famotidine (Famotidine/Pf 20 Mg/2 Ml Vial) 20 mg IVPUSH BID [facility] Last Admin: 06/28/22 07:56 Dose: 20 mg Documented By: SAMUEL Glucose (Glucose Gel 15 Gm Gel..Gram.) 15 gm PO Q15M PRN; Protocol PRN Reason: per Hypoglycemia Standing Ord. Heparin Sodium (Porcine) (Heparin Sodium,Porcine 5,000 Unit/Ml Vial) 5,000 unit SUBCUT Q8H [facility] Last Admin: 06/28/22 05:31 Dose: 5,000 unit Documented By: TIN Promethazine HCl 12.5 mg/ (Sodium Chloride) 50.5 mls @ 202 mls/hr IV Q6H PRN PRN Reason: Nausea and Vomiting Acetaminophen (Ofirmev) 1,000 mg in 100 mls @ 400 mls/hr IV Q6H PRN PRN Reason: abdominal pain Last Infusion: 06/07/22 17:16 Dose: 0 mls/hr Documented By: NYA Metronidazole (Flagyl) 500 mg in 100 mls @ 100 mls/hr IV Q8H [facility] Last Admin: 06/28/22 07:57 Dose: 100 mls/hr Documented By: SAMUEL Potassium Chloride 20 meq/Sodium Chloride 50 meq/Magnesium Sulfate 10 meq/Potassium Phosphate 30 mmol/Calcium Gluconate 9.3 meq/Multivitamins 10 ml/ Trace Metals 1 ml/ Amino Acids/Dextrose 2,040 mls @ 85 mls/hr IV DAILY@1800 [facility] Stop: 06/28/22 17:59 Last Admin: 06/27/22 17:54 Dose: 85 mls/hr Documented By: SUE Insulin Human Lispro (Insulin Lispro 100 Unit/Ml 3 Ml Vial) 0 unit SUBCUT QIDACHS [facility]; Protocol Last Admin: 06/28/22 07:56 Dose: 7 unit Documented By: SAMUEL Ondansetron HCl (Ondansetron Hcl 4 Mg/2 Ml Vial) 4 mg IVPUSH Q8H PRN PRN Reason: Nausea Last Admin: 06/11/22 23:51 Dose: 4 mg Documented By: SUMEET Sertraline HCl (Sertraline Hcl 50 Mg Tablet) 150 mg PO BEDTIME [facility] Last Admin: 06/27/22 20:31 Dose: 150 mg Documented By: TIN Simethicone (Simethicone 80 Mg Tab.Chew) 80 mg PO QIDWMHS PRN PRN Reason: gassiness Last Admin: 06/12/22 22:18 Dose: 80 mg Documented By: SUMEET Sodium Chloride (0.9 % Sodium Chloride Flush 3 Ml Syringe) 3 ml IVFLUSH QSHIFT [facility] Last Admin: 06/28/22 07:57 Dose: 3 ml Documented By: SAMUEL Sodium Chloride (0.9 % Sodium Chloride Flush 10 Ml Syringe) 5 ml IVFLUSH TID [facility] Last Admin: 06/28/22 07:58 Dose: Not Given Documented By: SAMUEL Non-Admin Reason: IV Running Trazodone HCl (Trazodone Hcl 50 Mg Tablet) 150 mg PO BEDTIME [facility] Last Admin: 06/27/22 22:50 Dose: 150 mg Documented By: TIN Comments: pt requested to have the med later, not 2100 Labs CBC & Chem 7: 06/12/22 07:52 06/29/22 06:01 Labs: Laboratory Results - last 24 hr 06/27/22 06/27/22 06/27/22 11:35 15:36 19:44 Anion Gap Estim Creat Clear Calc Estimated GFR POC Glucose 131 H 134 H 135 H Random Glucose Calcium 06/28/22 06/28/22 05:35 07:07 Anion Gap 12 Estim Creat Clear Calc 129.9 Estimated GFR > 60 POC Glucose 207 H Random Glucose 207 H Calcium 8.1 L Procedures Date of Service Date of Service: 06/28/22 Progress Note: A&P Assessment and plan (1) Intra-abdominal abscess: Status: Acute Assessment and Plan: continues to do well minimal drain output will try to advance diet clinically looks well continue ambulating good GI function Time Spent With Patient Time: Total time spent is greater than 50% in coordination of care (as documented) at patient's floor/unit and/or counseling patient: Quality Stroke Does the patient have a stroke diagnosis?: No VTE Prior VTE?: No VTE Risk Level:: Medical - moderate - high VTE Device Contraindication: N/A - Device Ordered VTE Drug Contraindication: N/A - Med Ordered
[2022-06-28 08:36] LABS: Magnesium 1.7 mg/dL (1.6-2.6); Phosphorus 4.2 mg/dL (2.7-4.5)
[2022-06-28 11:02] VITALS: BP 134/77; PULSE 91; RESP 18; TEMP 36.1; O2SAT 94
[2022-06-28 11:16] LABS: Glucose, Whole Blood 222 mg/dL (60-115)
--- NOTE | 2022-06-28 12:45 | MHC.CLN ---
F/U DIET ADVANCED FROM FULL LIQUIDS TO DIABETIC 2000 KCALS. CONTINUES WITH TPN. TOLERATED FULL LIQUIDS 06/27 AND APPEARS TO HAVE TAKEN 100%. LABS REVIEWED. COMMUNICATED WITH PHARMACY AND PROVIDER. PLAN TO CONTINUE TPN. FOLLOW FOR DIET TOLERANCE. CONTINUE TPN AT MAX GOAL RATE: TPN [id number] AT 85ML PER HOUR WITH 37 ML OF 20% LIPIDS X 12 HRS PROVIDES 2336 KCALS (27 KCALS/KG BASED ON CMW), 102 G PROTEIN (1.17 G/KG). REPLETE LYTES NEEDED. FOLLOW FOR TPN, LABS, AND DIET UPGRADE/TOLERANCE.
[2022-06-28 15:12] VITALS: BP 123/75; PULSE 98; RESP 18; TEMP 37.1; O2SAT 100
[2022-06-28 15:31] LABS: Glucose, Whole Blood 164 mg/dL (60-115)
[2022-06-28 19:17] VITALS: BP 146/71; PULSE 110; RESP 18; TEMP 37.2; O2SAT 97
[2022-06-28 19:51] LABS: Glucose, Whole Blood 131 mg/dL (60-115)
[2022-06-28] MEDS: Sertraline HCL 50 MG TABLET 150 MG PO (20:59)
[2022-06-28] MEDS: Atorvastatin Calcium 10 MG TABLET PO (20:59)
[2022-06-28] MEDS: 0.9 % Sodium Chloride Flush 10 ML SYRINGE 5 ML IVFLUSH (21:00)
[2022-06-28] MEDS: traZODone HCL 50 MG TABLET 150 MG PO (22:42)
[2022-06-29] VITALS (7 sets, daily range): BP systolic 96–134; BP diastolic 54–73; PULSE 72–110; RESP 14–18; TEMP 36.1–37.2; O2SAT 94–97
[2022-06-29] MEDS: Fat Emulsions 20% 250 ML 37 ML IV (00:49)
[2022-06-29] MEDS: metroNIDAZOLE/NS 500 MG/100 ML PIGGYBACK 100 MG IV ×3 (00:49→16:43)
[2022-06-29] MEDS: Heparin Sodium,Porcine 5,000 UNIT/ML VIAL 5000 UNIT SUBCUT ×3 (05:43→22:12)
[2022-06-29 07:12] LABS: Glucose, Whole Blood 189 mg/dL (60-115)
[2022-06-29 07:24] LABS: Anion Gap 11 (12-20); Blood Urea Nitrogen 13 mg/dL (9-16); Calcium 7.8 mg/dL (8.4-10.2); Carbon Dioxide 25 mmol/L (22-29); Chloride 108 mmol/L (96-108); Creatinine Clr Calc Pharmacy 118.4; Estimated Glomerular Filt Rate > 60; Glucose Random 196 mg/dL (60-115); Potassium 4.4 mmol/L (3.3-5.1); Sodium 140 mmol/L (135-145)
[2022-06-29 07:56] LABS: Magnesium 1.7 mg/dL (1.6-2.6); Phosphorus 3.6 mg/dL (2.7-4.5)
[2022-06-29] MEDS: Insulin Lispro 100 UNIT/ML 3 ML VIAL SUBCUT ×4 (08:14→22:12)
[2022-06-29] MEDS: busPIRone HCl 5 MG TABLET PO (08:14)
[2022-06-29] MEDS: 0.9 % Sodium Chloride Flush 3 ML SYRINGE IVFLUSH ×2 (08:14→16:48)
[2022-06-29] MEDS: carvediloL 12.5 MG TABLET PO ×2 (08:14→22:14)
[2022-06-29] MEDS: Famotidine/PF 20 MG/2 ML VIAL IVPUSH ×2 (08:15→22:16)
--- NOTE | 2022-06-29 09:06 | P.PNGS_ITS ---
Subjective Subjective Date of Service: 06/29/22 <Bertha Fernandez PA-C - Last Filed: 06/29/22 09:17> 06/29/22 <Lit Norton MD - Last Filed: 06/29/22 15:41> Interval history: Reports he did well with food yesterday. Ate his entire lunch yesterday. He reports he did have some pain and increasing bloating around midnight but this resolved after passing flatus and having a BM. He then ambulated. He continues to feel great . <Bertha Fernandez PA-C - Last Filed: 06/29/22 09:17> Physical Exam Vital Signs: Vital Signs: Last Vital Signs Temp 97.9 F 06/29/22 06:59 Pulse 72 06/29/22 06:59 Resp 18 06/29/22 06:59 BP 118/59 L 06/29/22 06:59 Pulse Ox 97 06/29/22 06:59 O2 Del Method 06/29/22 06:59 O2 Flow Rate 2 06/28/22 03:26 Oxygen Flow Rate 2 06/17/22 04:00 BMI result Body Mass Index 38.4 <Bertha Fernandez PA-C - Last Filed: 06/29/22 09:17> Const: General: comfortable, no acute distress and alert <YESENIA Wilson Last Filed: 06/29/22 09:17> Orientation/consciousness: patient oriented x3 <YESENIA Wilson Last Filed: 06/29/22 09:17> Resp: Effort & Inspection: normal respiratory effort <YESENIA Wilson Last Filed: 06/29/22 09:17> GI: Other: MARY drain continues with scanty purulent drainage, minimal in bulb <YESENIA Wilson Last Filed: 06/29/22 09:17> Inspection: Yes distended (increasingly soft) and Yes incision (openings to superior and inferior aspect remain clean, scanty drainage) <YESENIA Loyola Last Filed: 06/29/22 09:17> Palpation (GI): Soft to palpation, nontender, no guarding and not rigid <YESENIA Wilson Last Filed: 06/29/22 09:17> Skin: General skin exam: no rashes or lesions noted <Bertha Fernandez PA-C - Last Filed: 06/29/22 09:17> Neuro: General: patient oriented x3 <Bertha Fernandez PA-C - Last Filed: 06/29/22 09:17> Extrem: General: Yes no clubbing, cyanosis or edema <Bertha Fernandez PA-C - Last Filed: 06/29/22 09:17> Objective Data Active Medications Al Hydroxide/Mg Hydroxide (Magnesium Hydrox/Alum Hydrox 30 Ml Oral.Susp) 30 ml PO Q6H PRN PRN Reason: heartburn Last Admin: 06/18/22 00:37 Dose: 30 ml Documented By: PETEY Atorvastatin Calcium (Atorvastatin Calcium 10 Mg Tablet) 10 mg PO BEDTIME [facility] Last Admin: 06/28/22 20:59 Dose: 10 mg Documented By: TIN Buspirone HCl (Buspirone Hcl 5 Mg Tablet) 5 mg PO DAILY [facility] Last Admin: 06/29/22 08:14 Dose: 5 mg Documented By: SAMUEL Carvedilol (Carvedilol 12.5 Mg Tablet) 12.5 mg PO BID [facility]; Protocol Last Admin: 06/29/22 08:14 Dose: 12.5 mg Documented By: SAMUEL Dextrose (Dextrose 50 % 25 Gm/50 Ml Syringe) 25 gm IVPUSH Q15M PRN; Protocol PRN Reason: per Hypoglycemia Standing Ord. Famotidine (Famotidine/Pf 20 Mg/2 Ml Vial) 20 mg IVPUSH BID [facility] Last Admin: 06/29/22 08:15 Dose: 20 mg Documented By: SAMUEL Glucose (Glucose Gel 15 Gm Gel..Gram.) 15 gm PO Q15M PRN; Protocol PRN Reason: per Hypoglycemia Standing Ord. Heparin Sodium (Porcine) (Heparin Sodium,Porcine 5,000 Unit/Ml Vial) 5,000 unit SUBCUT Q8H [facility] Last Admin: 06/29/22 05:43 Dose: 5,000 unit Documented By: TIN Promethazine HCl 12.5 mg/ (Sodium Chloride) 50.5 mls @ 202 mls/hr IV Q6H PRN PRN Reason: Nausea and Vomiting Acetaminophen (Ofirmev) 1,000 mg in 100 mls @ 400 mls/hr IV Q6H PRN PRN Reason: abdominal pain Last Infusion: 06/07/22 17:16 Dose: 0 mls/hr Documented By: NYA Metronidazole (Flagyl) 500 mg in 100 mls @ 100 mls/hr IV Q8H [facility] Last Admin: 06/29/22 08:22 Dose: 100 mls/hr Documented By: SAMUEL Potassium Chloride 20 meq/Sodium Chloride 50 meq/Magnesium Sulfate 10 meq/Potassium Phosphate 30 mmol/Calcium Gluconate 9.3 meq/Multivitamins 10 ml/ Trace Metals 1 ml/ Amino Acids/Dextrose 2,040 mls @ 85 mls/hr IV DAILY@1800 [facility] Stop: 06/29/22 17:59 Last Admin: 06/28/22 18:40 Dose: 85 mls/hr Documented By: SAMUEL Insulin Human Lispro (Insulin Lispro 100 Unit/Ml 3 Ml Vial) 0 unit SUBCUT QIDACHS [facility]; Protocol Last Admin: 06/29/22 08:14 Dose: 4 unit Documented By: SAMUEL Ondansetron HCl (Ondansetron Hcl 4 Mg/2 Ml Vial) 4 mg IVPUSH Q8H PRN PRN Reason: Nausea Last Admin: 06/11/22 23:51 Dose: 4 mg Documented By: SUMEET Sertraline HCl (Sertraline Hcl 50 Mg Tablet) 150 mg PO BEDTIME [facility] Last Admin: 06/28/22 20:59 Dose: 150 mg Documented By: TIN Simethicone (Simethicone 80 Mg Tab.Chew) 80 mg PO QIDWMHS PRN PRN Reason: gassiness Last Admin: 06/12/22 22:18 Dose: 80 mg Documented By: SUMEET Sodium Chloride (0.9 % Sodium Chloride Flush 3 Ml Syringe) [facility] Last Admin: 06/29/22 08:14 Dose: 3 ml Documented By: SAMUEL Sodium Chloride (0.9 % Sodium Chloride Flush 10 Ml Syringe) 5 ml IVFLUSH TID [facility] Last Admin: 06/29/22 08:15 Dose: Not Given Documented By: SAMUEL Non-Admin Reason: IV Running Trazodone HCl (Trazodone Hcl 50 Mg Tablet) 150 mg PO BEDTIME [facility] Last Admin: 06/28/22 22:42 Dose: 150 mg Documented By: TIN Comments: per pt request to take later of the scheduled time <Bertha Fernandez PA-C - Last Filed: 06/29/22 09:17> Labs CBC & Chem 7: : 06/12/22 07:52 06/29/22 06:01 <Bertha Fernandez PA-C - Last Filed: 06/29/22 09:17> Labs: Laboratory Results - last 24 hr 06/28/22 06/28/22 06/28/22 11:04 15:13 19:21 Anion Gap Estim Creat Clear Calc Estimated GFR POC Glucose 222 H 164 H 131 H Random Glucose Calcium Phosphorus Magnesium 06/29/22 06/29/22 06:01 06:58 Anion Gap 11 L Estim Creat Clear Calc 118.4 Estimated GFR > 60 POC Glucose 189 H Random Glucose 196 H Calcium 7.8 L Phosphorus 3.6 Magnesium 1.7 <Bertha Fernandez PA-C - Last Filed: 06/29/22 09:17> Procedures Date of Service Date of Service: 06/29/22 <Bertha Fernandez PA-C - Last Filed: 06/29/22 09:17> Progress Note: A&P Assessment and plan (1) Intra-abdominal abscess: Status: Acute <Bertha Fernandez PA-C - Last Filed: 06/29/22 09:17> Assessment and Plan: Says he continues to ?feel great? 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 Post op course complicated by post op ileus, intraabdominal collection, respiratory distress. He underwent IR drainage of large intraabdominal fluid collection which was enteric contents and required repeat aspiration once. This is being treated as controlled fistula. He has been on TPN for nutrition and drain output has slowly downtrended and is now scanty. His diet has been slowly advanced over the weekend and now tolerating solid food. Will hold off on further TPN today as he is tolerating his solid diet. His abdomen does remain distended but is increasingly soft. He continues with good GI function. Will continue to follow. Possible discharge in the next 1-2 days with drain in place if continues to do well. Discussed with patient and . <Bertha Fernandez PA-C - Last Filed: 06/29/22 09:17> Time Spent With Patient Time: Total time spent is greater than 50% in coordination of care (as documented) at patient's floor/unit and/or counseling patient: <Bertha Fernandez PA-C - Last Filed: 06/29/22 09:17> Quality Stroke Does the patient have a stroke diagnosis?: No <YESENIA Wilson Last Filed: 06/29/22 09:17> VTE Prior VTE?: No <Bertha Fernandez PA-C - Last Filed: 06/29/22 09:17> VTE Risk Level:: Medical - moderate - high <YESENIA Wilson Last Filed: 06/29/22 09:17> VTE Device Contraindication: N/A - Device Ordered <YESENIA Wilson Last Filed: 06/29/22 09:17> VTE Drug Contraindication: N/A - Med Ordered <YESENIA Wilson Last Filed: 06/29/22 09:17>
--- NOTE | 2022-06-29 10:12 | MHC.CM.PN ---
PER REVIEW OF SURGICAL PROGRES NOTE, PLAN IS DC HOME BY TUESDAY WITH RESUMPTION OF HIS SERVICES. PATIENT TOLERATING PO DIET
--- NOTE | 2022-06-29 10:19 | MHC.CM.PN ---
PATIENT IS AWARE OF POSSIBLE DC BY HE ASKS THIS PARACHUTE FOLDER NOT TO TELL HIS ( I WANT TO SURPRISE HER ) PATIENT AWARE THAT MAY FIND OUT BASED ON CONVERSATIONS WITH STAFF BUT THAT THIS PARACHUTE FOLDER WILL COMPLY WITH WISHES UNTIL OTHERWISE NOTIFIED.
[2022-06-29 11:14] LABS: Glucose, Whole Blood 205 mg/dL (60-115)
--- NOTE | 2022-06-29 12:04 | MHC.CLN ---
F/U PO INTAKE 100% DIET ADVANCED TO DIABETIC 2000 KCALS TPN TO BE D/C TODAY PER [facility] COMMUNICATED WITH PHARMACY FOLLOW FOR DIET TOLERANCE CONTINUE TO MONITOR PO INTAKE CLOSELY
--- NOTE | 2022-06-29 13:26 | P.DS_ITS ---
DS: Providers Provider Date of Service: 07/02/22 Date of admission: 06/01/22 16:00 Date of discharge: 07/02/22 Primary care physician: Daniella Colon MD Attending physician on admission: Lit Norton Consults: 06/01/22 16:07 Consult to Hospitalist Routine Consulting Provider: Hospitalist Reason For Exam: HTN, DM, 06/06/22 07:27 Consult to Nephrology Routine Consulting Provider: Rafy Ga Reason for consultation: jennifer Has provider been notified: No 06/08/22 16:52 Consult to Pulmonology Routine Consulting Provider: Genaro Newton Reason for consultation: SOB, large consolidation Has provider been notified: No 06/13/22 14:40 Consult to Psychiatry Routine Consulting Provider: Noemy Jama Reason for consultation: confusion/delerium Attending physician on discharge: Lit Norton DS: Diagnosis Discharge Diagnosis (1) Intra-abdominal abscess: Status: Acute (2) S/P right colectomy: Status: Acute DS: Summary Hospital Course Hospital Course: BRIEF HPI: The patient is a 56-year-old male who had undergone laparoscopic appendectomy March 2022 for acute appendicitis. 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 He was therefore referred to Dr. Norton for right colon resection. Technique of the procedure, hand assisted laparoscopic right colon resection, possible open was discussed. He presents today for the procedure. HOSPITAL COURSE: On 06/01/22, attempted hand assisted laparoscopic right colon resection, converted to open right colon resection, with control of bleeding of ileocolic pedicle was performed by Dr. Norton. The patient tolerated the procedure well and was admitted post operatively to the med/surg floor for observation. The patient had a lengthy recovery course complicated by a post op ileus, intraabdominal abscess and controlled fistula, JENNIFER and acute hypercarbic/hypoxic respiratory failure from pneumonia and atelectasis. He initially was doing fairly well post operatively. He was started on a clear liquid diet following the procedure. He began moving his bowels on POD #2 and was advanced to a full liquid diet. His vargas was removed and he was ambulated. On POD #3, he developed nausea and abdominal distention consistent with post op ileus. His diet was deescalated back to clear liquids. He had fluctuating improvement in his symptoms, abdominal distention over the next several days and was made NPO, restarted on IVF. He began experiencing acute shortness of breath which was initially thought to be restrictive in nature from the abdominal distention from the ileus. CXR showed atelectasis, small pleural effusion. Cardiac work up including EKG, troponin, BNP and echo were negative. He had initial improvement in symptoms following large bowel movements. For the prolonged NPO status, he was started on PPN. He also developed an JENNIFER during this time- a renal ultrasound showed no obstruction. Nephrology was consulted who thought the JENNIFER was due to tubular injury and to continue supportive care. His JENNIFER gradually improved and resolved. He however had progressive worsening of the dyspnea and increasing O2 requirements. He had a pulmonary perfusion test which was negative for PE and subsequent CT chest which showed consolidations. He was started on IV azithromycin for 5 days. He was also noncompliant with his CPAP and incentive spirometer use and he was educated and encouraged to use as directed. An NGT was also placed to attempt to assist in the decompression of the abdominal distention and improve the lung restriction. Simultaneously, he developed a leukocytosis and given the persistent ileus and increasing right sided pain/tenderness, a CT scan abd/pelvis was obtained which revealed a large fluid collection. IR drainage was requested at that time and performed on 06/09/22- 1 L of fecal-appearing fluid was aspirated. A PICC line was requested and he was started on TPN. He was started on IV zosyn. The drain continued with enteric appearing contents. It was thought that there was fistulous connection between the colon and abscess cavity. The abscess cultures grew Bacteroides fragilis pen/amp resistant and he was changed to levaquin/flagyl. We continue supportive treatment with NPO status, TPN for nutrition and kept the drain in place to attempt to treat as a controlled fistula. He did require another aspiration of the collection and a bulb drain was attached at that time. He began to pass continuous flatus and move his bowels daily. Over the following two weeks, the drainage output and contents fluctuated. The output eventually slowed and became more purulent in nature and this became scanty. His diet was slowly advanced as tolerated. TPN was continued until he was tolerating a solid diet with good PO intake. On the day of discharge, he was tolerating a solid diet without N/V or increasing abdominal distention. The drain had very scant purulent drainage. He was moving his bowels daily. He felt ready for discharge and was discharged to home with services on 07/02/22 in stable condition with the drain in place off of antibiotics. He is t o follow up with Dr. Norton in office. His blood pressure was well managed on carvedilol during his stay. His home losartan and HCTZ were held during and admission and he was instructed to hold these medications at home until he sees his PCP regarding further hypertension management. Status at Discharge Functional status at discharge: independent ambulation Overall status at discharge: patient is progressing back to baseline Time Spent with Patient Time attestation: Total time spent providing and/or coordinating discharge services: Discharge coordination time: Greater than 30 minutes Quality: Safe Use of Opioids Does Pt have an Active Cancer Diagnosis on the Problem List?: Yes Opioid Measure Date for [facility] Report: 06/05/22 Opioid Measure Time for [facility] Report: 14:11 Quality: Stroke Does the patient have a stroke diagnosis?: No Physical Exam Vital Signs: Vital Signs: Last Vital Signs Temp 97.6 F 06/29/22 11:34 Pulse 72 06/29/22 11:34 Resp 18 06/29/22 11:34 BP 134/62 06/29/22 11:34 Pulse Ox 94 06/29/22 11:34 O2 Del Method 06/29/22 11:34 O2 Flow Rate 2 06/28/22 03:26 Oxygen Flow Rate 2 06/17/22 04:00 BMI result Body Mass Index 38.4 Const: General: comfortable, no acute distress and alert Jacinto entation/consciousness: patient oriented x3 Resp: Effort & Inspection: normal respiratory effort Cardio: Rate: regular rate GI: Other: pigtail drain in place to RLQ with bulb Inspection: Yes distended (softly) and Yes incision (clean, small openings to superior and inferior aspect) Palpation (GI): Soft to palpation, nontender, no guarding and not rigid Percussion: Yes tympanic to percussion Skin: General skin exam: no rashes or lesions noted Neuro: General: patient oriented x3 and moves all extremities Extrem: General: Yes no clubbing, cyanosis or edema DS: Data Data Completed and Pending Completed studies during hospitalization [Text1]: 06/01/22 14:52 Surgical [PTH] Routine Terminal ileum and right colon, hemicolectomy: - Adenocarcinoma, moderately differentiated, invading subserosa and involving colonic mucosa; negative margins. - Background sessile serrated polyp. - Metastatic carcinoma present in 4 of 14 lymph nodes examined. - pT4a N2 (combined staging with appendectomy procedure 03/28/2022) - AJCC 8th ed. Procedures Resection of Appendix, Percutaneous Endoscopic Approach (03/27/22) Labs on day of discharge: Laboratory Results - last 24 hr 06/28/22 06/28/22 06/29/22 15:13 19:21 06:01 Sodium 140 Potassium 4.4 Chloride 108 Carbon Dioxide 25 Anion Gap 11 L BUN 13 Creatinine 0.91 Estim Creat Clear Calc 118.4 Estimated GFR > 60 POC Glucose 164 H 131 H Random Glucose 196 H Calcium 7.8 L Phosphorus 3.6 Magnesium 1.7 06/29/22 06/29/22 06:58 10:59 Sodium Potassium Chloride Carbon Dioxide Anion Gap BUN Creatinine Estim Creat Clear Calc Estimated GFR POC Glucose 189 H 205 H Random Glucose Calcium Phosphorus Magnesium Discharge Plan Discharge Anticipated Discharge Date/Time: 07/01/22 08:50 Patient Disposition: Home Health Service Discharge Diagnosis: intraabdominal abscess Referrals: [facility] [Other] - 1 Week Daniella Colon MD [Primary Care Provider] - 1 Week Lit Norton MD [Physician] - 1 Week Discharge Medications: Continued zolpidem 10 mg Tablet 10 mg PO BEDTIME PRN (Reason: Sleep) topiramate [Topamax] 50 mg Tablet 50 mg PO BID PRN (Reason: Tremor(S)) Trulicity 3 mg/0.5 mL pen injector 3 mg subcut FR@0900 sertraline 100 mg tablet 1.5 tab PO BEDTIME buspirone 5 mg tablet 1 tab PO DAILY cholecalciferol (vitamin D3) 25 mcg (1,000 unit) capsule 25 mcg PO DAILY atorvastatin 10 mg tablet 10 mg PO BEDTIME carvedilol 12.5 mg tablet 12.5 mg PO Q12H trazodone 150 mg tablet 150 mg PO BEDTIME (DME) blood-glucose meter [FreeStyle Lite Meter] Kit See Rx Instructions .ROUTE .MEDSUPPLY Qty: 1 0RF Rx Instructions: As directed twice a day Held losartan 50 mg tablet 50 mg PO DAILY Hold Instructions: Resume on 07/28/22. PER PCP INSTRUCTIONS hydrochlorothiazide 25 mg tablet 25 mg PO DAILY Hold Instructions: Resume on 07/28/22. PER PCP INSTRUCTIONS Discharge Orders: Discharge Order (Routine); Ordered 07/01/22 Ordered By: Bertha Fernandez Diet: Diabetic diet Activity on Discharge: No heavy lifting Stand Alone Forms: Patient Portal Discharge page Activity Restrictions/Additional Instructions: If the incision area is tender, you may apply an ice pack for short intervals (No more than 20 minutes on, followed by at least 20 minutes off). Do not apply heat. Do not use creams, lotions, or topical antibiotics unless instructed to do so by your surgeon. These can cause infection or allergic reaction. MARY drain care: empty daily and PRN. Record output amount. Ok to shower. No heavy lifting (>10lbs) or strenuous activity. Follow up in office with Dr. Norton in 1 week. ([phone]) Follow up with your PCP regarding your blood pressure medication. Please stop taking losartan and hydrochlorothiazide and potassium pills until you see them. Call Your Doctor If: -Your temperature exceeds 101.5? F -You experience excessive pain or swelling -You have an unexpected reaction to medication -You have excessive bleeding -You experience continued vomiting/nausea -Your incision shows signs of infection such as increased redness, swelling, excessive pain, drainage (light blood or clear fluid is normal) or heat Care Plan Goals: Resolution of abscess and fistula. Health Concerns: Appendiceal CA S/p right colon resection Diabetes mellitus, HTN Intraabdominal abscess Controlled fistula Plan of Treatment: Pain control F/u in office with Dr. Norton Assessment: Improved Discharge Date/Time: 07/01/22 12:45
[2022-06-29 16:06] LABS: Glucose, Whole Blood 171 mg/dL (60-115)
[2022-06-29 20:22] LABS: Glucose, Whole Blood 115 mg/dL (60-115)
[2022-06-29] MEDS: 0.9 % Sodium Chloride Flush 10 ML SYRINGE 5 ML IVFLUSH (22:14)
[2022-06-29] MEDS: Sertraline HCL 50 MG TABLET 150 MG PO (22:15)
[2022-06-29] MEDS: Atorvastatin Calcium 10 MG TABLET PO (22:15)
[2022-06-29] MEDS: traZODone HCL 50 MG TABLET 150 MG PO (22:15)
[2022-06-30] VITALS: BP 104/55; PULSE 107; RESP 14; TEMP 36.7; O2SAT 93
[2022-06-30] MEDS: metroNIDAZOLE/NS 500 MG/100 ML PIGGYBACK 100 MG IV ×2 (00:16→08:46)
[2022-06-30 04:00] VITALS: RESP 18
[2022-06-30] MEDS: Heparin Sodium,Porcine 5,000 UNIT/ML VIAL 5000 UNIT SUBCUT ×3 (05:43→21:02)
[2022-06-30 07:03] VITALS: BP 112/65; PULSE 90; RESP 18; TEMP 36.1; O2SAT 95
[2022-06-30 07:13] LABS: Glucose, Whole Blood 125 mg/dL (60-115)
[2022-06-30] MEDS: 0.9 % Sodium Chloride Flush 3 ML SYRINGE IVFLUSH ×3 (08:44→22:28)
[2022-06-30] MEDS: busPIRone HCl 5 MG TABLET PO (08:44)
[2022-06-30] MEDS: carvediloL 12.5 MG TABLET PO ×2 (08:44→21:03)
[2022-06-30] MEDS: 0.9 % Sodium Chloride Flush 10 ML SYRINGE 5 ML IVFLUSH ×3 (08:45→22:28)
[2022-06-30] MEDS: Famotidine/PF 20 MG/2 ML VIAL IVPUSH ×2 (08:45→21:03)
[2022-06-30] MEDS: Insulin Lispro 100 UNIT/ML 3 ML VIAL SUBCUT ×3 (08:45→21:00)
--- NOTE | 2022-06-30 10:36 | MHC.CLN ---
F/U TPN DISCONTINUED. DIET=DIABETIC 2000 KCALS. PO INTAKE USUALLY 100%. APPEARS TO BE TOLERATING DIET. FOLLOW FOR DIET TOLERANCE AND INTAKE.
[2022-06-30 11:14] LABS: Glucose, Whole Blood 151 mg/dL (60-115)
[2022-06-30 11:33] VITALS: BP 124/56; PULSE 95; RESP 18; TEMP 36.1; O2SAT 95
--- NOTE | 2022-06-30 11:59 | PM.PNGS ---
Subjective Subjective Date of Service: 07/06/22 Interval history: He says he continues to feel well Good oral intake Continues to have BMs and flatus Denies abdominal pain Physical Exam Vital Signs: Vital Signs: Last Vital Signs Temp 96.9 F 06/30/22 11:33 Pulse 95 06/30/22 11:33 Resp 18 06/30/22 11:33 BP 124/56 L 06/30/22 11:33 Pulse Ox 95 06/30/22 11:33 O2 Del Method 06/30/22 07:03 O2 Flow Rate 2 06/28/22 03:26 Oxygen Flow Rate 2 06/17/22 04:00 BMI result Body Mass Index 38.4 Const: General: comfortable and no acute distress Resp: Effort & Inspection: normal respiratory effort Cardio: Rate: regular rate GI: Other: Soft, mildly distended, no guarding rebound, incision well healing, drain right side with scanty output Objective Data Active Medications Al Hydroxide/Mg Hydroxide (Magnesium Hydrox/Alum Hydrox 30 Ml Oral.Susp) 30 ml PO Q6H PRN PRN Reason: heartburn Last Admin: 06/18/22 00:37 Dose: 30 ml Documented By: PETEY Atorvastatin Calcium (Atorvastatin Calcium 10 Mg Tablet) 10 mg PO BEDTIME [facility] Last Admin: 06/29/22 22:15 Dose: 10 mg Documented By: GOYO Buspirone HCl (Buspirone Hcl 5 Mg Tablet) 5 mg PO DAILY [facility] Last Admin: 06/30/22 08:44 Dose: 5 mg Documented By: GIULIA Carvedilol (Carvedilol 12.5 Mg Tablet) 12.5 mg PO BID [facility]; Protocol Last Admin: 06/30/22 08:44 Dose: 12.5 mg Documented By: GIULIA Dextrose (Dextrose 50 % 25 Gm/50 Ml Syringe) 25 gm IVPUSH Q15M PRN; Protocol PRN Reason: per Hypoglycemia Standing Ord. Famotidine (Famotidine/Pf 20 Mg/2 Ml Vial) 20 mg IVPUSH BID [facility] Last Admin: 06/30/22 08:45 Dose: 20 mg Documented By: GIULIA Glucose (Glucose Gel 15 Gm Gel..Gram.) 15 gm PO Q15M PRN; Protocol PRN Reason: per Hypoglycemia Standing Ord. Heparin Sodium (Porcine) (Heparin Sodium,Porcine 5,000 Unit/Ml Vial) 5,000 unit SUBCUT Q8H [facility] Last Admin: 06/30/22 05:43 Dose: 5,000 unit Documented By: HALEY Promethazine HCl 12.5 mg/ (Sodium Chloride) 50.5 mls @ 202 mls/hr IV Q6H PRN PRN Reason: Nausea and Vomiting Acetaminophen (Ofirmev) 1,000 mg in 100 mls @ 400 mls/hr IV Q6H PRN PRN Reason: abdominal pain Last Infusion: 06/07/22 17:16 Dose: 0 mls/hr Documented By: NYA Metronidazole (Flagyl) 500 mg in 100 mls @ 100 mls/hr IV Q8H [facility] Last Infusion: 06/30/22 10:41 Dose: 0 mls/hr Documented By: GIULIA Insulin Human Lispro (Insulin Lispro 100 Unit/Ml 3 Ml Vial) 0 unit SUBCUT QIDACHS [facility]; Protocol Last Admin: 06/30/22 08:45 Dose: 2 unit Documented By: GIULIA Ondansetron HCl (Ondansetron Hcl 4 Mg/2 Ml Vial) 4 mg IVPUSH Q8H PRN PRN Reason: Nausea Last Admin: 06/11/22 23:51 Dose: 4 mg Documented By: SUMEET Sertraline HCl (Sertraline Hcl 50 Mg Tablet) 150 mg PO BEDTIME [facility] Last Admin: 06/29/22 22:15 Dose: 150 mg Documented By: GOYO Simethicone (Simethicone 80 Mg Tab.Chew) 80 mg PO QIDWMHS PRN PRN Reason: gassiness Last Admin: 06/12/22 22:18 Dose: 80 mg Documented By: SUMEET Sodium Chloride (0.9 % Sodium Chloride Flush 3 Ml Syringe) 3 ml IVFLUSH QSHIFT [facility] Last Admin: 06/30/22 08:44 Dose: 3 ml Documented By: GIULIA Sodium Chloride (0.9 % Sodium Chloride Flush 10 Ml Syringe) 5 ml IVFLUSH TID [facility] Last Admin: 06/30/22 08:45 Dose: 5 ml Documented By: GIULIA Trazodone HCl (Trazodone Hcl 50 Mg Tablet) 150 mg PO BEDTIME [facility] Last Admin: 06/29/22 22:15 Dose: 150 mg Documented By: GOYO Labs CBC & Chem 7: 06/12/22 07:52 06/29/22 06:01 Labs: Laboratory Results - last 24 hr 06/29/22 06/29/22 06/30/22 15:27 19:32 07:04 POC Glucose 171 H 115 125 H 06/30/22 11:03 POC Glucose 151 H Procedures Date of Service Date of Service: 06/30/22 Progress Note: A&P Assessment and plan (1) Intra-abdominal abscess: Status: Acute Assessment and Plan: He continues to do very well He says he has been feeling ?great? Tolerating diet Abdomen soft Discharge planning to home drain probably by tomorrow He looks well with good GI function Time Spent With Patient Time: Total time spent is greater than 50% in coordination of care (as documented) at patient's floor/unit and/or counseling patient: Quality Stroke Does the patient have a stroke diagnosis?: No VTE Prior VTE?: No VTE Risk Level:: Medical - moderate - high VTE Device Contraindication: N/A - Device Ordered VTE Drug Contraindication: N/A - Med Ordered
[2022-06-30 15:42] VITALS: BP 139/76; PULSE 104; RESP 18; TEMP 37.1; O2SAT 98
[2022-06-30 16:25] LABS: Glucose, Whole Blood 110 mg/dL (60-115)
[2022-06-30 19:57] VITALS: BP 123/73; PULSE 104; RESP 18; TEMP 36.7; O2SAT 93
[2022-06-30 20:31] LABS: Glucose, Whole Blood 149 mg/dL (60-115)
[2022-06-30] MEDS: Atorvastatin Calcium 10 MG TABLET PO (21:03)
[2022-06-30] MEDS: Sertraline HCL 50 MG TABLET 150 MG PO (21:03)
[2022-06-30] MEDS: traZODone HCL 50 MG TABLET 150 MG PO (22:27)
[2022-07-01] VITALS: BP 107/56; PULSE 94; RESP 18; TEMP 36.9; O2SAT 96
[2022-07-01 04:00] VITALS: BP 115/69; PULSE 100; RESP 18; TEMP 36.4; O2SAT 96
[2022-07-01] MEDS: Heparin Sodium,Porcine 5,000 UNIT/ML VIAL 5000 UNIT SUBCUT (05:55)
[2022-07-01 07:26] VITALS: BP 114/75; PULSE 98; RESP 18; TEMP 36.1; O2SAT 96
[2022-07-01 07:37] LABS: Glucose, Whole Blood 137 mg/dL (60-115)
[2022-07-01] MEDS: 0.9 % Sodium Chloride Flush 10 ML SYRINGE 5 ML IVFLUSH (07:47)
[2022-07-01] MEDS: Insulin Lispro 100 UNIT/ML 3 ML VIAL SUBCUT ×2 (07:47→11:44)
[2022-07-01] MEDS: busPIRone HCl 5 MG TABLET PO (07:47)
[2022-07-01] MEDS: 0.9 % Sodium Chloride Flush 3 ML SYRINGE IVFLUSH (07:47)
[2022-07-01] MEDS: carvediloL 12.5 MG TABLET PO (07:47)
[2022-07-01] MEDS: Famotidine/PF 20 MG/2 ML VIAL IVPUSH (07:47)
--- NOTE | 2022-07-01 09:11 | P.PNGS_ITS ---
Subjective Subjective Date of Service: 07/01/22 <Bertha Fernandez PA-C - Last Filed: 07/01/22 09:16> 07/01/22 <Lit Norton MD - Last Filed: 07/01/22 13:04> Interval history: Feels well. Some pain at drain site but mild. Tolerating solid diet without nausea, vomiting, fullness. Moving bowels without difficulty. AMbulating. Feels ready to go home. <Bertha Fernandez PA-C - Last Filed: 07/01/22 09:16> Physical Exam Vital Signs: Vital Signs: Last Vital Signs Temp 96.9 F 07/01/22 07:26 Pulse 98 07/01/22 07:26 Resp 18 07/01/22 07:26 BP 114/75 07/01/22 07:26 Pulse Ox 96 07/01/22 07:26 O2 Del Method 07/01/22 07:26 O2 Flow Rate 2 06/28/22 03:26 Oxygen Flow Rate 2 06/17/22 04:00 BMI result Body Mass Index 38.4 <Bertha Fernandez PA-C - Last Filed: 07/01/22 09:16> Const: General: comfortable, no acute distress and alert <Bertha Fernandez PA-C - Last Filed: 07/01/22 09:16> Orientation/consciousness: patient oriented x3 <Bertha Fernandez PA-C - Last Filed: 07/01/22 09:16> Resp: Effort & Inspection: normal respiratory effort <Bertha Fernandez PA-C - Last Filed: 07/01/22 09:16> Auscultation: clear to auscultation bilaterally <Bertha Fernandez PA-C - Last Filed: 07/01/22 09:16> GI: Other: MARY drain, very scanty purulent output <YESENIA Wilson Last Filed: 07/01/22 09:16> Inspection: Yes distended (slightly decreased, soft) and Yes incision (clean, superior and inferior open aspects healing well) <YESENIA Wilson Last Filed: 07/01/22 09:16> Palpation (GI): Soft to palpation, Tenderness to palpation present (GI) (mild, drain site, no surrounding erthema), no guarding and not rigid <YESENIA Wilson Last Filed: 07/01/22 09:16> Percussion: Yes tympanic to percussion <YESENIA Wilson Last Filed: 07/01/22 09:16> Skin: General skin exam: no rashes or lesions noted <YESENIA Wilson Last Filed: 07/01/22 09:16> Neuro: General: patient oriented x3 <YESENIA Wilson Last Filed: 07/01/22 09:16> Extrem: General: Yes no clubbing, cyanosis or edema <YESENIA Wilson Last Filed: 07/01/22 09:16> Objective Data Active Medications Al Hydroxide/Mg Hydroxide (Magnesium Hydrox/Alum Hydrox 30 Ml Oral.Susp) 30 ml PO Q6H PRN PRN Reason: heartburn Last Admin: 06/18/22 00:37 Dose: 30 ml Documented By: PETEY Atorvastatin Calcium (Atorvastatin Calcium 10 Mg Tablet) 10 mg PO BEDTIME [facility] Last Admin: 06/30/22 21:03 Dose: 10 mg Documented By: EDITH Buspirone HCl (Buspirone Hcl 5 Mg Tablet) 5 mg PO DAILY [facility] Last Admin: 07/01/22 07:47 Dose: 5 mg Documented By: SUE Carvedilol (Carvedilol 12.5 Mg Tablet) 12.5 mg PO BID [facility]; Protocol Last Admin: 07/01/22 07:47 Dose: 12.5 mg Documented By: SUE Dextrose (Dextrose 50 % 25 Gm/50 Ml Syringe) 25 gm IVPUSH Q15M PRN; Protocol PRN Reason: per Hypoglycemia Standing Ord. Famotidine (Famotidine/Pf 20 Mg/2 Ml Vial) 20 mg IVPUSH BID [facility] Last Admin: 07/01/22 07:47 Dose: 20 mg Documented By: SUE Glucose (Glucose Gel 15 Gm Gel..Gram.) 15 gm PO Q15M PRN; Protocol PRN Reason: per Hypoglycemia Standing Ord. Heparin Sodium (Porcine) (Heparin Sodium,Porcine 5,000 Unit/Ml Vial) 5,000 unit SUBCUT Q8H TEENA Last Admin: 07/01/22 05:55 Dose: 5,000 unit Documented By: EDITH Promethazine HCl 12.5 mg/ (Sodium Chloride) 50.5 mls @ 202 mls/hr IV Q6H PRN PRN Reason: Nausea and Vomiting Acetaminophen (Ofirmev) 1,000 mg in 100 mls @ 400 mls/hr IV Q6H PRN PRN Reason: abdominal pain Last Infusion: 06/07/22 17:16 Dose: 0 mls/hr Documented By: NYA Insulin Human Lispro (Insulin Lispro 100 Unit/Ml 3 Ml Vial) 0 unit SUBCUT QIDACHS [facility]; Protocol Last Admin: 07/01/22 07:47 Dose: 2 unit Documented By: SUE Ondansetron HCl (Ondansetron Hcl 4 Mg/2 Ml Vial) 4 mg IVPUSH Q8H PRN PRN Reason: Nausea Last Admin: 06/11/22 23:51 Dose: 4 mg Documented By: SUMEET Sertraline HCl (Sertraline Hcl 50 Mg Tablet) 150 mg PO BEDTIME [facility] Last Admin: 06/30/22 21:03 Dose: 150 mg Documented By: EDITH Simethicone (Simethicone 80 Mg Tab.Chew) 80 mg PO QIDWMHS PRN PRN Reason: gassiness Last Admin: 06/12/22 22:18 Dose: 80 mg Documented By: SUMEET Sodium Chloride (0.9 % Sodium Chloride Flush 3 Ml Syringe) 3 ml IVFLUSH QSHIFT [facility] Last Admin: 07/01/22 07:47 Dose: 3 ml Documented By: SUE Sodium Chloride (0.9 % Sodium Chloride Flush 10 Ml Syringe) 5 ml IVFLUSH TID [facility] Last Admin: 07/01/22 07:47 Dose: 5 ml Documented By: SUE Trazodone HCl (Trazodone Hcl 50 Mg Tablet) 150 mg PO BEDTIME [facility] Last Admin: 06/30/22 22:27 Dose: 150 mg Documented By: EDITH <Bertha Fernandez PA-C - Last Filed: 07/01/22 09:16> Labs CBC & Chem 7: : 06/12/22 07:52 06/29/22 06:01 <Bertha Fernandez PA-C - Last Filed: 07/01/22 09:16> Labs: Laboratory Results - last 24 hr 06/30/22 06/30/22 06/30/22 11:03 15:36 19:59 POC Glucose 151 H 110 149 H 07/01/22 07:30 POC Glucose 137 H <Bertha Fernandez PA-C - Last Filed: 07/01/22 09:16> Procedures Date of Service Date of Service: 07/01/22 <Bertha Fernandez PA-C - Last Filed: 07/01/22 09:16> Progress Note: A&P Assessment and plan (1) Intra-abdominal abscess: Status: Acute <Bertha Fernandez PA-C - Last Filed: 07/01/22 09:16> Assessment and Plan: He continues to feel well Tolerating diet Drain with very scanty output Has BMs and flatus Denies abdominal pain Has had no fever Abdomen remained soft nontender incision well healed He has been stable and asymptomatic for over a week Okay to DC home He is comfortable with the plan Will see in the office for follow-up visit Drain will be removed in the office <Lit Norton MD - Last Filed: 07/01/22 13:04> (2) S/P right colectomy: Status: Acute <Bertha Fernandez PA-C - Last Filed: 07/01/22 09:16> Assessment and Plan: 56 year old male who underwent 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 Post op course complicated by post op ileus, intraabdominal collection, respiratory distress. He underwent IR drainage of large intraabdominal fluid collection which was enteric contents and required repeat aspiration once. This is being treated as controlled fistula. He has been on TPN for nutrition and drain output has slowly downtrended and is now scanty. His diet has been slowly advanced over the weekend and now tolerating solid food. He is tolerating a solid diet without worsening abd distention or increasing drain output and continues to move his bowels. Abd remains benign- increasingly soft and distention continues to slowly improve. Drain output very scanty. He is stable for discharge to home today on small meals with drain in place. Discharge plan thoroughly discussed with patient and . All questions answered. He is to follow up in office in 1-2 weeks. They understand the plan. <Bertha Fernandez PA-C - Last Filed: 07/01/22 09:16> Time Spent With Patient Time: Total time spent is greater than 50% in coordination of care (as documented) at patient's floor/unit and/or counseling patient: <Bertha Fernandez PA-C - Last Filed: 07/01/22 09:16> Quality Stroke Does the patient have a stroke diagnosis?: No <Bertha Fernandez PA-C - Last Filed: 07/01/22 09:16> VTE Prior VTE?: No <Bertha Fernandez PA-C - Last Filed: 07/01/22 09:16> VTE Risk Level:: Medical - moderate - high <YESENIA Wilson Last Filed: 07/01/22 09:16> VTE Device Contraindication: N/A - Device Ordered <Bertha Fernandez PA-C - Last Filed: 07/01/22 09:16> VTE Drug Contraindication: N/A - Med Ordered <Bertha Fernandez PA-C - Last Filed: 07/01/22 09:16>
--- NOTE | 2022-07-01 09:12 | MHC.CM.PN ---
[facility]IRLFRIEND IS IN ROOM TO TRANSPORT PATIENT HOME. SHE STATES THAT HE IS ACTIVE WITH [facility] AND A VISIT IS EXPECTED FOR NEXT WEEK. REFERRAL PLACED TO AGENCY TO INQUIRE IF THIS IS CORRECT AGENCY, AND INFORM OF DC.
[2022-07-01 11:21] VITALS: BP 118/59; PULSE 102; RESP 17; TEMP 36.3; O2SAT 95
[2022-07-01 11:28] LABS: Glucose, Whole Blood 152 mg/dL (60-115)
--- NOTE | 2022-07-01 12:41 | PM.EVENT ---
Documented by User: Bertha Fernandez PA-C 07/01/22 12:42 Event Note Date of Service: 07/01/22 Event Note: PICC line removed without difficulty or complication. Tip intact (length of catheter 51cm as per insertion note). Patient tolerated the procedure well. Pressure held and dressing applied. Documented by User: Lit Norton MD 07/01/22 13:04 Event Note Date of Service: 07/01/22
== END 2022-07-01 12:45 | disposition home health service (06) | DRG 231 ==
LOC: HO.SSSA 16:08 → HO.S3 18:06
PROVIDERS: Hospitalist; Internal Medicine; Internal Medicine Nephrology; Nurse Practitioner; Nurse Practitioner Acute Care; Physician Assistant Medical; Physician Assistant Surgical; Radiology Diagnostic Radiology; Surgery; Admitting Provider Surgery; PCP Internal Medicine; Visit Provider Surgery
PROC: 0DTE0ZZ Resection of Large Intestine, Open Approach (ICD-10-PCS; principal; 2022-06-01 09:30)
PROC: 0W9H3ZZ Drainage of Retroperitoneum, Percutaneous Approach (ICD-10-PCS; principal; 2022-06-09 14:30)
DX: C18.1 Malignant neoplasm of appendix (principal); N17.0 Acute kidney failure with tubular necrosis; K63.2 Fistula of intestine; J96.01 Acute respiratory failure with hypoxia; D69.6 Thrombocytopenia, unspecified; J18.9 Pneumonia, unspecified organism; J96.02 Acute respiratory failure with hypercapnia; C77.5 Secondary and unspecified malignant neoplasm of intrapelvic lymph nodes; E87.29 Other acidosis; K56.7 Ileus, unspecified; E78.5 Hyperlipidemia, unspecified; G47.33 Obstructive sleep apnea (adult) (pediatric); E66.01 Morbid (severe) obesity due to excess calories; J98.11 Atelectasis; K68.11 Postprocedural retroperitoneal abscess; K29.70 Gastritis, unspecified, without bleeding; I10 Essential (primary) hypertension; F39 Unspecified mood [affective] disorder; Z68.38 Body mass index [BMI] 38.0-38.9, adult; E87.6 Hypokalemia; C18.2 Malignant neoplasm of ascending colon; K91.61 Intraoperative hemorrhage and hematoma of a digestive system organ or structure complicating a digestive system procedure; Y83.8 Other surgical procedures as the cause of abnormal reaction of the patient, or of later complication, without mention of misadventure at the time of the procedure; Z20.822 Contact with and (suspected) exposure to COVID-19; Z88.8 Allergy status to other drugs, medicaments and biological substances; Z79.899 Other long term (current) drug therapy
CPT/HCPCS: 36415; 36573; 36600; 49406; 71045; 71250; 74018; 74176; 76775; 78580; 80048; 80076; 81001; 82040; 82803; 82947; 83605; 83615; 83735; 83880; 84100; 84156; 84300; 84478; 84484; 85007; 85025; 85027; 85379; 85610; 86850; 86900; 86901; 86923; 87070; 87073; 87205; 87493; 87635; 88309; 93005; 93306; 94640; 97116; 97163; 99152; 99153; A9540; C1729; C1751; C1758; C1769; J0131; J0456; J0610; J0696; J1170; J1200; J1885; J1940; J1956; J2250; J2270; J2370; J2405; J2543; J2550; J2795; J3010; J3475; P9047; Q4186; Q9957

== ENCOUNTER 2022-07-10 03:10 | Inpatient (IN) | payer MEDICAID, SELFPAY ==
[2022-07-10] VITALS (11 sets, daily range): BP systolic 97–129; BP diastolic 58–78; PULSE 100–128; RESP 14–20; TEMP 36.9–39.4; O2SAT 90–100; BMI 35.9
--- NOTE | ~2022-07-10 | CT_ITS ---
EXAMINATION: CT ABDOMEN AND PELVIS WITH CONTRAST CLINICAL INFORMATION: Status post appendectomy. Question peritonitis. COMPARISON: 06/15/2022 TECHNIQUE: Multidetector volumetric images were obtained from the superior aspect of the liver through the pubic symphysis following administration 100 mL of Omnipaque 350 intravenous contrast. Sagittal and coronal reformatted images were obtained on the technologist's workstation. Oral contrast: No This CT examination was performed using dose optimization techniques as appropriate, variously including the following: *Automated exposure control *Adjustment of mA and/or kV according to patient size (this includes techniques or standardized protocols for targeted exams where dose is matched to indication/reason for exam; i.e. extremities or head) *Use of iterative reconstruction technique DLP: 929 mGy-cm FINDINGS: LUNG BASES: Bibasilar atelectasis. The visualized cardiac structures are unremarkable. Elevated right hemidiaphragm. LIVER, GALLBLADDER, AND BILIARY TREE: The liver is normal in size, shape, and attenuation. No focal hepatic lesion or biliary ductal dilatation is present. The gallbladder is unremarkable with no evidence of radiopaque gallstones, gallbladder wall thickening, or obvious pericholecystic inflammatory changes. PANCREAS: Unremarkable. SPLEEN: Unremarkable. ADRENAL GLANDS: Unremarkable. KIDNEYS AND URETERS: The kidneys are normal in size, shape, and attenuation. No hydronephrosis, hydroureter, or calculi seen. No perinephric stranding. BLADDER: Unremarkable. GASTROINTESTINAL TRACT: Decompressed stomach. Mildly prominent small bowel in the anterior central abdomen. There is bowel wall thickening with adjacent inflammation in the right lower quadrant. Postsurgical appearance with enterocolic anastomosis noted in the right abdomen. Pigtail catheter drain remains in place. The previous fluid collection is significantly improved from prior. There appears to be a residual collection medial to the drain which measures 3 x 2.7 x 10 cm . Small volume of free fluid throughout the abdomen and pelvis. ABDOMINAL WALL: No significant hernia is appreciated. LYMPH NODES: Normal. VASCULAR: Unremarkable. PELVIC VISCERA: Calcifications in the prostate. The seminal vesicles are unremarkable. OSSEOUS STRUCTURES: No acute or suspicious osseous abnormality. Mild degenerative changes of the hips and spine. CT/CT abdomen pelvis w IV con IMPRESSION: 1. Significant improvement of the right lower quadrant fluid collection with pigtail drain in place. There is a residual collection medial to the drain. 2. Wall thickening of the small bowel in the right lower quadrant with adjacent inflammation. This may represent enteritis. There could be associated peritonitis. There is also a small volume of free fluid throughout the abdomen and pelvis. Fleischner guidelines were followed.
--- NOTE | 2022-07-10 03:46 | ED_ITS ---
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 Two days ago lizandro bautista started moving around and was lifting some stuffs noticed pain in the left lower quadrant now which is getting worse + nausea no vomiting had temperature of 100.4 degrees on arrival no chills no diarrhea no vomiting. No cough no upper respiratory symptoms Related Data Home Medications Medication Instructions Recorded Confirmed atorvastatin 10 mg tablet 10 mg PO BEDTIME 10/22/20 07/06/22 carvedilol 12.5 mg tablet 12.5 mg PO Q12H 10/22/20 07/06/22 cholecalciferol (vitamin D3) 25 25 mcg PO DAILY 10/22/20 07/06/22 mcg (1,000 unit) capsule trazodone 150 mg tablet 150 mg PO BEDTIME 11/04/20 07/06/22 buspirone 5 mg tablet 1 tab PO DAILY 01/04/22 07/06/22 sertraline 100 mg tablet 1.5 tab PO BEDTIME 01/04/22 07/06/22 dulaglutide 3 mg/0.5 mL 3 mg subcut FR@0900 03/27/22 07/06/22 subcutaneous pen injector (Trulicity) topiramate 50 mg tablet (Topamax) 50 mg PO BID PRN Tremor(S) 03/27/22 07/06/22 zolpidem 10 mg tablet 10 mg PO BEDTIME PRN Sleep 03/27/22 07/06/22 Previous Rx's Medication Instructions Recorded blood-glucose meter (FreeStyle #1 ea 12/29/21 Lite Meter kit) oxycodone-acetaminophen 5 mg-325 1 - 2 tab PO Q6H PRN pain #20 tabs 07/09/22 mg tablet (Percocet) Allergies Allergy/AdvReac Type Severity Reaction Status Date / Time lisinopril [LISINOPRIL] Allergy Mild RASH Verified 05/27/22 10:13 Review of Systems Review of Systems Yes all other systems are reviewed and are negative [facility] Past Medical History Medical History Ambulates with cane Back pain due to injury Diabetes type 2, controlled Diabetic nephropathy associated with type 2 diabetes mellitus Dyslipidemia Epidermal cyst Eye inflammation HTN (hypertension) Morbid obesity Obesity (BMI 30-39.9) Sleep apnea Umbilical hernia Surgical History H/O colonoscopy History of umbilical hernia repair (~01/08/22) Hx of removal of cyst S/P appendectomy Family History Family History Father Diabetes Heart disease Mother Diabetes Heart disease Other No family history of cancer Social History Social History Household Members: Significant Other Housing: House Are you a primary care transition manager to a significant other at home: No Do you presently have visiting nurse or other home services: Yes (Seth Cash sets up medications in Lock box) Alcohol intake: current Alcohol intake frequency: does not drink Patient Tobacco Use Status: Never used Tobacco Smoked in Last 30 Days: No Use of substances other than those prescribed or required for medical reasons: No Advance Directives: No Advance Directives Information Provided: No service: No Current occupational status: disabled Physical Exam ED Vital Signs: Vital Signs - 24 hr 07/10/22 03:38 07/10/22 04:22 07/10/22 05:50 Temperature 100.4 F 100.9 F H 100.9 F H Pulse Rate 114 H 119 H 128 H Respiratory Rate 14 17 20 Blood Pressure 118/74 110/58 L 102/72 Pulse Oximetry 90 L 90 L 97 Oxygen Delivery Method Room Air Room Air Room Air 07/10/22 07:19 Temperature 100.6 F H Pulse Rate 125 H Respiratory Rate 14 Blood Pressure 97/58 L Pulse Oximetry 97 Oxygen Delivery Method Room Air BMI result Body Mass Index 35.9 Appearance: Alert. Oriented X3. in Moderate distress++ Eyes: PERRLA, No Nystagmus ENT: Pharynx normal. Oral Mucosa moist Neck: Normal inspection. Neck supple. CVS: Normal heart rate and rhythm. Pulses normal. Respiratory: No respiratory distress. Equal air entry bilateral, no wheezing/rales/rhonchi Abdomen: Soft , tender to touch left lower quadrant with rebound tenderness and guarding Bowel sounds are present, no mass palpable, no CVA tenderness, drain in place with minimal pus in the container Skin: Skin warm and dry. Normal skin color. Normal skin turgor. Extremities: No lower extremity edema. No calf tenderness Neuro: Oriented X 3. No motor deficit. Medications Administered Discontinued Medications Generic Name Dose Route Start Last Admin Trade Name Freq PRN Reason Stop Dose Admin Hydromorphone HCl 1 mg 07/10/22 04:36 07/10/22 04:42 Hydromorphone Hcl 1 Mg/Ml Syringe IVPUSH 07/10/22 04:37 1 mg ONCE ONE Administration Protocol Hydromorphone HCl 1 mg 07/10/22 06:37 07/10/22 06:43 Hydromorphone Hcl 1 Mg/Ml Syringe IVPUSH 07/10/22 06:38 1 mg ONCE ONE Administration Protocol Sodium Chloride 1,000 mls @ 999 mls/hr 07/10/22 03:51 07/10/22 05:59 Ns IV 07/10/22 04:51 Infused .Q1H1M ONE Infusion Piperacillin Sod/Tazobactam 50 mls @ 100 mls/hr 07/10/22 03:51 07/10/22 05:00 Sod 3.375 gm/ Sodium Chloride IV 07/10/22 04:20 Infused ONCE ONE Infusion Iohexol 100 ml 07/10/22 05:40 07/10/22 05:41 Iohexol 350 Mg/Ml 100 Ml Infus..Btl IV 07/10/22 05:41 100 ml ONCE ONE Administration Ondansetron HCl 4 mg 07/10/22 03:53 07/10/22 04:30 Ondansetron Hcl 4 Mg/2 Ml Vial IVPUSH 07/10/22 03:54 4 mg ONCE ONE Administration MDM - Abdominal Pain MDM Narrative Medical decision making narrative: 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 Norton CT/CT abdomen pelvis w IV con IMPRESSION: 1.? Significant improvement of the right lower quadrant fluid collection with pigtail drain in place. There is a residual collection medial to the drain. 2.? Wall thickening of the small bowel in the right lower quadrant with adjacent inflammation. This may represent enteritis. There could be associated peritonitis. There is also a small volume of free fluid throughout the abdomen and pelvis. Lab Data Attestation: I reviewed the patient's lab results. Result diagrams: 07/10/22 04:14 07/10/22 04:14 Labs: Lab Results 07/10/22 07/10/22 07/10/22 Range/Units 04:14 04:14 04:14 WBC 10.8 (4.8-10.8) X10*3/uL RBC 3.55 L (4.60-5.80) X10*6/uL Hgb 9.7 L (14.0-18.0) g/dl Hct 32.3 L (42.0-52.0) % MCV 91.0 (80.0-98.0) fL MCH 27.3 (27.0-33.0) pg MCHC 30.0 L (31.0-36.0) g/dl RDW 16.0 (11.0-16.0) % Plt Count 160 (160-400) X10*3/uL MPV 10.0 (9.4-12.4) fL Immature Gran % (Auto) 0.4 (0.0-0.4) % Neut % (Auto) 83.2 H (45-73) % Lymph % (Auto) 10.1 L (20-40) % Grady % (Auto) 6.0 (2-11) % Eos % (Auto) 0.1 (0-4) % Baso % (Auto) 0.2 (0-2) % Lymph # (Auto) 1.1 L (1.2-4.9) X10*3/uL Grady # (Auto) 0.7 (0.1-1.2) X10*3/uL Eos # (Auto) 0.0 (0.0-0.4) X10*3/uL Baso # (Auto) 0.0 (0.0-0.2) X10*3/uL Abs Immat Gran (auto) 0.04 H (0.00-0.03) X10*3/uL Absolute Neuts (auto) 9.0 H (2.0-8.3) x10*3/uL Absolute Nucleated RBC 0.000 (0.0-0.012) X10*3/uL Nucleated RBC % (auto) 0.0 (0.0-0.2) /100WBC Sodium 139 (135-145) mmol/L Potassium 4.1 (3.3-5.1) mmol/L Chloride 103 (96-108) mmol/L Carbon Dioxide 29 (22-29) mmol/L Anion Gap 11 L (12-20) BUN 11 (9-16) mg/dL Creatinine 0.95 (0.5-1.4) mg/dL Estim Creat Clear Calc 109.4 Estimated GFR > 60 Random Glucose 142 H (60-115) mg/dL Lactic Acid 0.8 (0.5-2.0) mmol/L Calcium 8.3 L D (8.4-10.2) mg/dL Total Bilirubin 0.7 (0.0-1.0) mg/dL AST 12 (5-37) U/L ALT 12 (0-40) U/L Alkaline Phosphatase 44 (39-117) U/L Total Protein 6.0 L (6.5-8.0) g/dL Albumin 3.1 L (3.5-5.0) g/dL Lipase 21 (8-78) U/L COVID-19 (GLORY) (Negative) COVID-19 Clin Com 07/10/22 Range/Units 04:26 WBC (4.8-10.8) X10*3/uL RBC (4.60-5.80) X10*6/uL Hgb (14.0-18.0) g/dl Hct (42.0-52.0) % MCV (80.0-98.0) fL MCH (27.0-33.0) pg MCHC (31.0-36.0) g/dl RDW (11.0-16.0) % Plt Count (160-400) X10*3/uL MPV (9.4-12.4) fL Immature Gran % (Auto) (0.0-0.4) % Neut % (Auto) (45-73) % Lymph % (Auto) (20-40) % Grady % (Auto) (2-11) % Eos % (Auto) (0-4) % Baso % (Auto) (0-2) % Lymph # (Auto) (1.2-4.9) X10*3/uL Grady # (Auto) (0.1-1.2) X10*3/uL Eos # (Auto) (0.0-0.4) X10*3/uL Baso # (Auto) (0.0-0.2) X10*3/uL Abs Immat Gran (auto) (0.00-0.03) X10*3/uL Absolute Neuts (auto) (2.0-8.3) x10*3/uL Absolute Nucleated RBC (0.0-0.012) X10*3/uL Nucleated RBC % (auto) (0.0-0.2) /100WBC Sodium (135-145) mmol/L Potassium (3.3-5.1) mmol/L Chloride (96-108) mmol/L Carbon Dioxide (22-29) mmol/L Anion Gap (12-20) BUN (9-16) mg/dL Creatinine (0.5-1.4) mg/dL Estim Creat Clear Calc Estimated GFR Random Glucose (60-115) mg/dL Lactic Acid (0.5-2.0) mmol/L Calcium (8.4-10.2) mg/dL Total Bilirubin (0.0-1.0) mg/dL AST (5-37) U/L ALT (0-40) U/L Alkaline Phosphatase (39-117) U/L Total Protein (6.5-8.0) g/dL Albumin (3.5-5.0) g/dL Lipase (8-78) U/L COVID-19 (GLORY) Negative (Negative) COVID-19 Clin Com See Note Discharge Plan Discharge Clinical Impression: Enterocolitis, Abdominal pain Patient Disposition: Admitted As Inpatient
[2022-07-10 04:19] LABS: MANUAL DIFF FLAG NO
[2022-07-10 04:20] LABS: Basophils Percent Auto 0.2 % (0-2); Eosinophils Percent Auto 0.1 % (0-4); Hematocrit 32.3 % (42.0-52.0); Hemoglobin 9.7 g/dl (14.0-18.0); Imm Gran Abs Auto 0.04 X10*3/uL (0.00-0.03); Imm Gran Pct Auto 0.4 % (0.0-0.4); Lymphocytes Absolute Auto 1.1 X10*3/uL (1.2-4.9); Lymphocytes Percent Auto 10.1 % (20-40); Mean Corpuscular Hemoglobin 27.3 pg (27.0-33.0); Monocytes Absolute Auto 0.7 X10*3/uL (0.1-1.2); Neutrophils Percent Auto 83.2 % (45-73); Platelet Count 160 X10*3/uL (160-400); Red Blood Count 3.55 X10*6/uL (4.60-5.80); White Blood Count 10.8 X10*3/uL (4.8-10.8)
[2022-07-10] MEDS: ondansetron HCL 4 MG/2 ML VIAL IVPUSH (04:30)
[2022-07-10] MEDS: Piperacillin Sodium/Tazobactam 3.375 GM in 0.9 % Sodium Chloride 50 ML IV ×3 (04:30→18:24)
[2022-07-10] MEDS: 0.9 % Sodium Chloride 1,000 ML 999 ML IV (04:30)
[2022-07-10 04:32] LABS: Lactic Acid 0.8 mmol/L (0.5-2.0)
--- NOTE | 2022-07-10 04:34 | PC.NURSE ---
O2 sat 85% RA. Pt placed 4L nc. Current o2 sat 98% on 4L nc.
[2022-07-10 04:37] LABS: Alanine Aminotransferase 12 U/L (0-40); Albumin Level 3.1 g/dL (3.5-5.0); Alkaline Phosphatase 44 U/L (39-117); Anion Gap 11 (12-20); Aspartate Amino Transferase 12 U/L (5-37); Bilirubin Total 0.7 mg/dL (0.0-1.0); Blood Urea Nitrogen 11 mg/dL (9-16); Calcium 8.3 mg/dL (8.4-10.2); Carbon Dioxide 29 mmol/L (22-29); Chloride 103 mmol/L (96-108); Creatinine Clr Calc Pharmacy 109.4; Estimated Glomerular Filt Rate > 60; Glucose Random 142 mg/dL (60-115); Lipase 21 U/L (8-78); Potassium 4.1 mmol/L (3.3-5.1); Sodium 139 mmol/L (135-145)
[2022-07-10] MEDS: HYDROmorphone HCl 1 MG/ML SYRINGE IVPUSH ×2 (04:42→06:43)
[2022-07-10 04:49] LABS: COVID-19 Test Negative (Negative); IDNOW Serial# BCCEAD1C
[2022-07-10] MEDS: iohexoL 350 MG/ML 100 ML INFUS..BTL IV (05:41)
--- NOTE | 2022-07-10 09:18 | P.HPGS_ITS ---
History of Present Illness History of Present Illness Date of Service: 07/19/22 Chief complaint: intraabdominal fluid Narrative: Titus Norton is a 56 year old male who is here for abdominal pain. 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 He developed an itnraabdominal abscess with with subsequent CT drainage along with an indwelling pigtail catheter with high output. This appeared to be consistent with a fistulous connection to the small bowel likely from the anastomosis. He was therefore in the hospital for 4 weeks because of TPN and bowel rest. He was eventually discharged with a drain in place last 07/02/2022. He had been doing well at home since that time with good oral intake and good bowel movements. However, 2 days ago, says he felt that he had eaten a lot on and was lifting heavy objects while trying to have his car fixed. He developed abdominal pain starting that night mostly on the left side. He continued to diet with good bowel movements as well as flatus. He denied any nausea or vomiting. He denies any fever. His pain had persisted despite taking oxycodone So he came to the emergency room last night. He had undergone laparoscopic appendectomy last March, and that was when his adenocarcinomas initially discovered. He has morbid obesity, diabetes, hypertension, and obstructive sleep apnea. He admits that he does not really do much with regards to physical activity while at home. He says he feels much better now and his pain has improved markedly. Review of Systems Constitutional: Constitutional: Denies chills and Denies fever(s) Cardiovascular: Cardiovascular: Denies chest pain, Denies dyspnea and Denies dyspnea on exertion Respiratory: Respiratory: Denies cough, Denies dyspnea and Denies dyspnea on exertion Gastrointestinal: Gastrointestinal: Denies hematochezia and Denies change in bowel habits Genitourinary: Genitourinary: Denies hematuria and Denies difficulty urinating Musculoskeletal: Musculoskeletal: Denies back pain and Denies limited range of motion Neurologic: Denies focal weakness and Denies convulsions Psychiatric: Psychiatric: Denies depression and Denies mood swings PMFSH Past Medical History Medical History Ambulates with cane Back pain due to injury Diabetes type 2, controlled Diabetic nephropathy associated with type 2 diabetes mellitus Dyslipidemia Epidermal cyst Eye inflammation HTN (hypertension) Morbid obesity Obesity (BMI 30-39.9) Sleep apnea Umbilical hernia Family History Family History Father Diabetes Heart disease Mother Diabetes Heart disease Other No family history of cancer Surgical History Surgical History H/O colonoscopy History of umbilical hernia repair (~01/08/22) Hx of removal of cyst S/P appendectomy Social History Social History Household Members: Spouse Housing: Condominium Are you a primary certified caregiver to a significant other at home: No Do you presently have visiting nurse or other home services: No Alcohol intake: never Patient Tobacco Use Status: Never used Tobacco service: No Current occupational status: disabled Meds Allergies Allergy/AdvReac Type Severity Reaction Status Date / Time lisinopril [LISINOPRIL] Allergy Mild RASH Verified 05/27/22 10:13 Active Medications: Current Medications Acetaminophen (Acetaminophen 325 Mg Tablet) 650 mg PO Q6H PRN PRN Reason: fever Atorvastatin Calcium (Atorvastatin Calcium 10 Mg Tablet) 10 mg PO DAILY [facility] Buspirone HCl (Buspirone Hcl 5 Mg Tablet) 5 mg PO DAILY [facility] Carvedilol (Carvedilol 12.5 Mg Tablet) 12.5 mg PO Q12H [facility]; Protocol Heparin Sodium (Porcine) (Heparin Sodium,Porcine 5,000 Unit/Ml Vial) 5,000 unit SUBCUT Q8H [facility] Sodium Chloride (Ns) 1,000 mls @ 100 mls/hr IVCONT .Q10H [facility] Cefepime HCl 2 gm/ Sodium (Chloride) 50 mls @ 100 mls/hr IV Q12H [facility] Morphine Sulfate (Morphine Sulfate 4 Mg/Ml Cartridge) 3 mg IVPUSH Q3H PRN; Protocol PRN Reason: Pain, Severe (Pain Scale 7-10) Ondansetron HCl (Ondansetron Hcl 4 Mg/2 Ml Vial) 4 mg IVPUSH Q6H PRN PRN Reason: Nausea Oxycodone HCl (Oxycodone Hcl Immed Release 5 Mg Tablet) 10 mg PO Q4H PRN PRN Reason: Pain, Moderate (Pain Scale 4-6 Sodium Chloride (0.9 % Sodium Chloride Flush 3 Ml Syringe) 3 ml IVFLUSH QSHIFT [facility] Home Medications Medication Instructions Recorded Confirmed Last Taken Type atorvastatin 10 mg tablet 10 mg PO BEDTIME 10/22/20 07/10/22 07/09/22 History carvedilol 12.5 mg tablet 12.5 mg PO Q12H 10/22/20 07/10/22 07/09/22 History cholecalciferol (vitamin D3) 25 25 mcg PO DAILY 10/22/20 07/10/22 07/09/22 History mcg (1,000 unit) capsule trazodone 150 mg tablet 150 mg PO BEDTIME 11/04/20 07/10/22 07/09/22 History buspirone 5 mg tablet 5 mg PO DAILY 01/04/22 07/10/22 07/09/22 History sertraline 100 mg tablet 150 mg PO BEDTIME 01/04/22 07/10/22 07/09/22 History dulaglutide 3 mg/0.5 mL 0.5 ml subcut FR 07/10/22 07/10/22 07/09/22 History subcutaneous pen injector (Trulicity) Physical Exam Vital Signs: Vital Signs: Last Vital Signs Temp 100.6 F H 07/10/22 07:19 Pulse 125 H 07/10/22 07:19 Resp 14 07/10/22 07:19 BP 97/58 L 07/10/22 07:19 Pulse Ox 97 07/10/22 07:19 O2 Del Method 07/10/22 07:19 BMI result Body Mass Index 35.9 Const: Other: Morbidly obese General: comfortable and no acute distress Orientation/consciousness: patient oriented x3 Neck: Neck: Yes no lymphadenopathy Resp: Auscultation: clear to auscultation bilaterally Cardio: Rhythm: regular rhythm GI: Other: tender on both lower quadrants, otherwise soft Palpation (GI): Soft to palpation, Tenderness to palpation present (GI) and no guarding Neuro: General: patient oriented x3 Results Results Labs: Short CBC 07/10/22 Range/Units 04:14 WBC 10.8 (4.8-10.8) X10*3/uL Hgb 9.7 L (14.0-18.0) g/dl Hct 32.3 L (42.0-52.0) % Plt Count 160 (160-400) X10*3/uL BMP 07/10/22 04:14 Sodium 139 Potassium 4.1 Chloride 103 Carbon Dioxide 29 BUN 11 Creatinine 0.95 Calcium 8.3 L D Liver Function 07/10/22 Range/Units 04:14 Total Bilirubin 0.7 (0.0-1.0) mg/dL AST 12 (5-37) U/L ALT 12 (0-40) U/L Alkaline Phosphatase 44 (39-117) U/L Albumin 3.1 L (3.5-5.0) g/dL Additional studies: Laboratory Results WBC 10.8 X10*3/uL (4.8-10.8) 07/10/22 04:14 RBC 3.55 X10*6/uL (4.60-5.80) L 07/10/22 04:14 Hgb 9.7 g/dl (14.0-18.0) L 07/10/22 04:14 Hct 32.3 % (42.0-52.0) L 07/10/22 04:14 MCV 91.0 fL (80.0-98.0) 07/10/22 04:14 MCH 27.3 pg (27.0-33.0) 07/10/22 04:14 MCHC 30.0 g/dl (31.0-36.0) L 07/10/22 04:14 RDW 16.0 % (11.0-16.0) 07/10/22 04:14 Plt Count 160 X10*3/uL (160-400) 07/10/22 04:14 MPV 10.0 fL (9.4-12.4) 07/10/22 04:14 Immature Gran % (Auto) 0.4 % (0.0-0.4) 07/10/22 04:14 Neut % (Auto) 83.2 % (45-73) H 07/10/22 04:14 Lymph % (Auto) 10.1 % (20-40) L 07/10/22 04:14 [place] % (Auto) 6.0 % (2-11) 07/10/22 04:14 Eos % (Auto) 0.1 % (0-4) 07/10/22 04:14 Baso % (Auto) 0.2 % (0-2) 07/10/22 04:14 Lymph # (Auto) 1.1 X10*3/uL (1.2-4.9) L 07/10/22 04:14 [place] # (Auto) 0.7 X10*3/uL (0.1-1.2) 07/10/22 04:14 Eos # (Auto) 0.0 X10*3/uL (0.0-0.4) 07/10/22 04:14 Baso # (Auto) 0.0 X10*3/uL (0.0-0.2) 07/10/22 04:14 Abs Immat Gran (auto) 0.04 X10*3/uL (0.00-0.03) H 07/10/22 04:14 Absolute Neuts (auto) 9.0 x10*3/uL (2.0-8.3) H 07/10/22 04:14 Absolute Nucleated RBC 0.000 X10*3/uL (0.0-0.012) 07/10/22 04:14 Nucleated RBC % (auto) 0.0 /100WBC (0.0-0.2) 07/10/22 04:14 Sodium 139 mmol/L (135-145) 07/10/22 04:14 Potassium 4.1 mmol/L (3.3-5.1) 07/10/22 04:14 Chloride 103 mmol/L (96-108) 07/10/22 04:14 Carbon Dioxide 29 mmol/L (22-29) 07/10/22 04:14 Anion Gap 11 (12-20) L 07/10/22 04:14 BUN 11 mg/dL (9-16) 07/10/22 04:14 Creatinine 0.95 mg/dL (0.5-1.4) 07/10/22 04:14 Estim Creat Clear Calc 109.4 07/10/22 04:14 Estimated GFR > 60 07/10/22 04:14 Random Glucose 142 mg/dL (60-115) H 07/10/22 04:14 Lactic Acid 0.8 mmol/L (0.5-2.0) 07/10/22 04:14 Calcium 8.3 mg/dL (8.4-10.2) L D 11/26/22 04:14 Total Bilirubin 0.7 mg/dL (0.0-1.0) 07/10/22 04:14 AST 12 U/L (5-37) 07/10/22 04:14 ALT 12 U/L (0-40) 07/10/22 04:14 Alkaline Phosphatase 44 U/L (39-117) 07/10/22 04:14 Total Protein 6.0 g/dL (6.5-8.0) L 07/10/22 04:14 Albumin 3.1 g/dL (3.5-5.0) L 07/10/22 04:14 Lipase 21 U/L (8-78) 07/10/22 04:14 COVID-19 ([facility]) Negative (Negative) 07/10/22 04:26 COVID-19 Clin Com See Note 07/10/22 04:26 Impressions Abdomen/Pelvis CT 07/10/22 05:25 IMPRESSION: 1. Significant improvement of the right lower quadrant fluid collection with pigtail drain in place. There is a residual collection medial to the drain. 2. Wall thickening of the small bowel in the right lower quadrant with adjacent inflammation. This may represent enteritis. There could be associated peritonitis. There is also a small volume of free fluid throughout the abdomen and pelvis. Fleischner guidelines were followed. Assessment and Plan (1) Intra-abdominal abscess: Status: Acute He has had a complex course after right colon resection for a T3 N1 adenocarcinoma and had developed an intra-abdominal abscess requiring CT drainage. He had been doing well at home after discharge but started to have abdominal pain again with a CAT scan showing residual intra-abdominal fluid collection with adjacent small bowel wall thickening. He has good air distally al the way to the rectum. His abdomen is otherwise soft and he has has no leukocytosis. I will put him on bowel rest again. He will be started on empiric antibiotics. I will review his CT scan with the radiologist to see if will benefit from additional CT drainage., I have consulted the hospitalist service because of his diabetes. His lactate levels are normal. Quality Stroke Does the patient have a stroke diagnosis?: No VTE Prior VTE?: No VTE Risk Level:: Medical - moderate - high VTE Device Contraindication: N/A - Device Ordered VTE Drug Contraindication: N/A - Med Ordered Procedures Date of Service Date of Service: 07/10/22
--- NOTE | 2022-07-10 09:31 | PC.NURSE ---
patient was asleep at 0800 so the patient did not ambulate at this time RN Aware
[2022-07-10] MEDS: 0.9 % Sodium Chloride 1,000 ML 100 ML IVCONT ×2 (10:00→19:27)
[2022-07-10] MEDS: Heparin Sodium,Porcine 5,000 UNIT/ML VIAL 5000 UNIT SUBCUT ×2 (10:15→18:23)
[2022-07-10] MEDS: cefEPime HCl 2 GM in 0.9 % Sodium Chloride 50 ML IV (10:15)
--- NOTE | 2022-07-10 12:01 | P.CONHOSP_ITS ---
History of Present Illness Data of Consult Service Date: 07/10/22 Requesting physician: Lit Norton Primary Care Provider: Daniella Colon MD HPI Reason for consult: KYM, DM, obesity 56-year-old male with past medical history of hypertension, diabetes, sleep apnea on CPAP, with recently diagnosed adenocarcinoma of the appendix when he presented on 03/27 with abdominal pain, at that time CT scan of the abdomen showed acute appendicitis, patient underwent laparoscopic appendectomy with drain placement and right pericolic gutter, he was found to have perforated, necrotic appendicitis, with free fluid in the abdomen with right pericolic abscess.? 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 He was discharged 8 days ago following 4 weeks of TPN and bowel rest and discharged with drain in place. Returned today with abdominal pain x 2 days. We were asked to see pt in management of HTN and diabetes, KYM. Review of Systems Review of Systems: General: No fevers, malaise, unintentional weight loss HEENT: No blurred vision, diplopia. Cardiovascular: No chest pain, palpitations, or leg edema Respiratory: No shortness of breath, wheezing, cough GI: +abdominal pain. + nausea, vomiting, diarrhea, constipation, melena, hematochezia : No dysuria, hematuria, increased urinary frequency, decreased urinary output MSK: No myalgia, back pain Neuro: No headaches, weakness, paresthesias Skin: No rashes or lesions [facility] Medical History Ambulates with cane Back pain due to injury Diabetes type 2, controlled Diabetic nephropathy associated with type 2 diabetes mellitus Dyslipidemia Epidermal cyst Eye inflammation HTN (hypertension) Morbid obesity Obesity (BMI 30-39.9) Sleep apnea Umbilical hernia Family History Father Diabetes Heart disease Mother Diabetes Heart disease Other No family history of cancer Surgical History H/O colonoscopy History of umbilical hernia repair (~01/08/22) Hx of removal of cyst S/P appendectomy Social History Household Members: Significant Other Housing: House Are you a primary career development director to a significant other at home: No Do you presently have visiting nurse or other home services: Yes (Diane Shreya sets up medications in Lock box) Alcohol intake: never Patient Tobacco Use Status: Never used Tobacco Smoked in Last 30 Days: No Use of substances other than those prescribed or required for medical reasons: No Advance Directives: No Advance Directives Information Provided: No service: No Current occupational status: disabled Meds Allergies Allergy/AdvReac Type Severity Reaction Status Date / Time lisinopril [LISINOPRIL] Allergy Mild RASH Verified 05/27/22 10:13 Active Medications: Current Medications Acetaminophen (Acetaminophen 325 Mg Tablet) 650 mg PO Q6H PRN PRN Reason: fever Atorvastatin Calcium (Atorvastatin Calcium 10 Mg Tablet) 10 mg PO DAILY [facility] Buspirone HCl (Buspirone Hcl 5 Mg Tablet) 5 mg PO DAILY [facility] Carvedilol (Carvedilol 12.5 Mg Tablet) 12.5 mg PO Q12H [facility]; Protocol Last Admin: 07/10/22 11:37 Dose: Not Given Heparin Sodium (Porcine) (Heparin Sodium,Porcine 5,000 Unit/Ml Vial) 5,000 unit SUBCUT Q8H [facility] Last Admin: 07/10/22 10:15 Dose: 5,000 unit Sodium Chloride (Ns) 1,000 mls @ 100 mls/hr IVCONT .Q10H [facility] Last Admin: 07/10/22 10:00 Dose: 100 mls/hr Piperacillin Sod/Tazobactam (Sod 3.375 gm/ Sodium Chloride) 50 mls @ 100 mls/hr IV Q6H [facility] Morphine Sulfate (Morphine Sulfate 2 Mg/Ml Cartridge) 3 mg IVPUSH Q3H PRN; Protocol PRN Reason: Pain, Severe (Pain Scale 7-10) Ondansetron HCl (Ondansetron Hcl 4 Mg/2 Ml Vial) 4 mg IVPUSH Q6H PRN PRN Reason: Nausea Oxycodone HCl (Oxycodone Hcl Immed Release 5 Mg Tablet) 10 mg PO Q4H PRN PRN Reason: Pain, Moderate (Pain Scale 4-6 Sodium Chloride (0.9 % Sodium Chloride Flush 3 Ml Syringe) 3 ml IVFLUSH QSHIFT [facility] Home Medications Medication Instructions Recorded Confirmed Last Taken Type atorvastatin 10 mg tablet 10 mg PO BEDTIME 10/22/20 07/06/22 03/26/22 History carvedilol 12.5 mg tablet 12.5 mg PO Q12H 10/22/20 07/06/22 03/26/22 History cholecalciferol (vitamin D3) 25 25 mcg PO DAILY 10/22/20 07/06/22 03/26/22 History mcg (1,000 unit) capsule trazodone 150 mg tablet 150 mg PO BEDTIME 11/04/20 07/06/22 03/26/22 History buspirone 5 mg tablet 1 tab PO DAILY 01/04/22 07/06/22 03/26/22 History sertraline 100 mg tablet 1.5 tab PO BEDTIME 01/04/22 07/06/22 03/26/22 History losartan 50 mg tablet 1 tab PO DAILY 07/10/22 Unknown History Physical Exam Vital Signs and Narrative: Vital Signs: Last Vital Signs Temp 98.5 F 07/10/22 11:48 Pulse 112 H 07/10/22 11:48 Resp 16 07/10/22 11:48 BP 112/67 07/10/22 11:48 Pulse Ox 100 07/10/22 11:48 O2 Del Method 07/10/22 11:48 O2 Flow Rate 3.5 07/10/22 11:48 BMI result Body Mass Index 35.9 Constitutional - Awake and Alert, No apparent distress Eyes - PERRLA, EOMI Cardiovascular - S1S2, RRR, 2+ ble edema Respiratory - Normal lung expansion, Normal respiratory effort, No respiratory distress, CTA bilaterally Gastrointestinal - Softly distended with diffuse ttp, greatest lower quadrants. +BS; No rebound or guarding - No CVA tenderness Extremities - no calf tenderness bilaterally, no swelling Skin - Warm/Dry Neurological - Alert & oriented x3 Psychological - Appropriate affect Results Labs CBC and Chem 7: 07/10/22 04:14 07/10/22 04:14 Labs: Laboratory Results - last 24 hr 07/10/22 07/10/22 07/10/22 04:14 04:14 04:14 MCV 91.0 MCH 27.3 MCHC 30.0 L RDW 16.0 Plt Count 160 MPV 10.0 Immature Gran % (Auto) 0.4 Neut % (Auto) 83.2 H Lymph % (Auto) 10.1 L [place] % (Auto) 6.0 Eos % (Auto) 0.1 Baso % (Auto) 0.2 Lymph # (Auto) 1.1 L [place] # (Auto) 0.7 Eos # (Auto) 0.0 Baso # (Auto) 0.0 Abs Immat Gran (auto) 0.04 H Absolute Neuts (auto) 9.0 H Absolute Nucleated RBC 0.000 Nucleated RBC % (auto) 0.0 Anion Gap 11 L Estim Creat Clear Calc 109.4 Estimated GFR > 60 Random Glucose 142 H Lactic Acid 0.8 Calcium 8.3 L D Total Bilirubin 0.7 AST 12 ALT 12 Alkaline Phosphatase 44 Total Protein 6.0 L Albumin 3.1 L Lipase 21 COVID-19 ([facility]) COVID-19 Clin Com 07/10/22 04:26 MCV MCH MCHC RDW Plt Count MPV Immature Gran % (Auto) Neut % (Auto) Lymph % (Auto) [place] % (Auto) Eos % (Auto) Baso % (Auto) Lymph # (Auto) [place] # (Auto) Eos # (Auto) Baso # (Auto) Abs Immat Gran (auto) Absolute Neuts (auto) Absolute Nucleated RBC Nucleated RBC % (auto) Anion Gap Estim Creat Clear Calc Estimated GFR Random Glucose Lactic Acid Calcium Total Bilirubin AST ALT Alkaline Phosphatase Total Protein Albumin Lipase COVID-19 ([facility]) Negative COVID-19 Clin Com See Note Imaging Radiologist's Impressions: Impressions Abdomen/Pelvis CT 07/10/22 05:25 IMPRESSION: 1. Significant improvement of the right lower quadrant fluid collection with pigtail drain in place. There is a residual collection medial to the drain. 2. Wall thickening of the small bowel in the right lower quadrant with adjacent inflammation. This may represent enteritis. There could be associated peritonitis. There is also a small volume of free fluid throughout the abdomen and pelvis. Fleischner guidelines were followed. Assessment and Plan (1) Intra-abdominal abscess: Status: Acute Plan 56-year-old male with past medical history of hypertension, diabetes, sleep apnea on CPAP, with recently diagnosed adenocarcinoma of the appendix when he presented on 03/27 with abdominal pain, at that time CT scan of the abdomen showed acute appendicitis, patient underwent laparoscopic appendectomy with drain placement and right pericolic gutter, he was found to have perforated, necrotic appendicitis, with free fluid in the abdomen with right pericolic abscess.? 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 He was discharged 8 days ago following 4 weeks of TPN and bowel rest and discharged with drain in place. Returned today with abdominal pain x 2 days. We were asked to see pt in management of HTN and diabetes, KYM. # intra-abdominal abscess s/p right colon resection for a T3 N1 adenocarcinoma of the appendix -plan per Psychiatry # [id number] type 2 diabetes -patient is NPO. Hold on any insulin administration at this time -POC glucose -hypoglycemia protocol # hypertension-BP soft -patient is NPO -hold on antihypertensives at this time # KYM -CPAP ordered # depression/mood disorder -continue home meds Thank you for this consult. Will continue following
--- NOTE | 2022-07-10 13:52 | PHA.MEDREC ---
Pharmacy Consult ? Medication Reconciliation Pharmacy has completed the medication reconciliation. Patient states his medications haven't changed since his discharge from here last week but he reviewed his medications with me and confirmed that he stopped the 2 medications (losartan and hydrochlorothiazide) that he was asked to stop on discharge. States he took trulicity yesterday (07/09/22).
--- NOTE | 2022-07-10 14:45 | PC.NURSE ---
Patient a/ox4 . laniyesseniadonald . heart rate regular at 97 beats per minute . breathing even and unlabored , lungs clear throughout . patient reports having a hard time taking a deep breath due to abdominal pain . skin is pink warm and dry . abdomen is distended , patient has history of hernia repair from a month ago . rebound tenderness noted mid abdomen throughout . patient uses urinal at bedside . patient is aware of plan of care .
[2022-07-10] MEDS: Morphine Sulfate 2 MG/ML CARTRIDGE 3 MG IVPUSH (14:57)
--- NOTE | 2022-07-10 14:58 | PC.NURSE ---
patient reports 8 out of 10 pain level in abdomen medicated with 3mg of morphine as ordered for pain IVP . patient aware of plan of care .
[2022-07-10 16:45] LABS: Glucose, Whole Blood 118 mg/dL (60-115)
--- NOTE | 2022-07-10 16:49 | PM.EVENT ---
Event Note Date of Service: 07/11/22 Event Note: Seen on afternoon rounds appears comfortable admits to some pain on the lower abdomen abdomen otherwise soft he looks well and asking for food he can have clear liquids on IV antibiotics hemodynamic stable and nontoxic looking family also updated at bedside
[2022-07-10] MEDS: 0.9 % Sodium Chloride Flush 3 ML SYRINGE IVFLUSH (17:47)
--- NOTE | 2022-07-10 17:47 | PC.NURSE ---
Report given to Lisa JIMENES . patient ready to transport to floor . patient aware of plan of care .
[2022-07-10 18:07] LABS: Glucose, Whole Blood 98 mg/dL (60-115)
[2022-07-10 19:09] LABS: Glucose, Whole Blood 88 mg/dL (60-115)
[2022-07-10] MEDS: Acetaminophen 325 MG TABLET 650 MG PO (19:26)
[2022-07-10] MEDS: carvediloL 12.5 MG TABLET PO (19:27)
[2022-07-11] MEDS: Piperacillin Sodium/Tazobactam 3.375 GM in 0.9 % Sodium Chloride 50 ML IV ×5 (00:12→23:30)
[2022-07-11 03:11] VITALS: BP 116/58; PULSE 109; RESP 18; TEMP 37.6; O2SAT 94
[2022-07-11] MEDS: Heparin Sodium,Porcine 5,000 UNIT/ML VIAL 5000 UNIT SUBCUT ×3 (03:15→18:04)
[2022-07-11] MEDS: 0.9 % Sodium Chloride 1,000 ML 100 ML IVCONT ×2 (05:30→15:19)
[2022-07-11 06:26] LABS: Hemoglobin 9.1 g/dl (14.0-18.0); Mean Corpuscular HGB Conc 28.4 g/dl (31.0-36.0); Mean Corpuscular Hemoglobin 27.3 pg (27.0-33.0); Mean Corpuscular Volume 96.1 fL (80.0-98.0); Mean Platelet Volume 11.5 fL (9.4-12.4); Platelet Count 155 X10*3/uL (160-400); Red Blood Count 3.33 X10*6/uL (4.60-5.80); Red Cell Distribution Width 15.7 % (11.0-16.0); White Blood Count 10.2 X10*3/uL (4.8-10.8)
[2022-07-11 06:33] LABS: Anion Gap 12 (12-20); Blood Urea Nitrogen 10 mg/dL (9-16); Calcium 8.2 mg/dL (8.4-10.2); Carbon Dioxide 28 mmol/L (22-29); Chloride 105 mmol/L (96-108); Creatinine Clr Calc Pharmacy 91.2; Estimated Glomerular Filt Rate > 60; Glucose Random 149 mg/dL (60-115); Potassium 4.3 mmol/L (3.3-5.1); Sodium 141 mmol/L (135-145)
[2022-07-11 07:39] VITALS: BP 113/57; PULSE 111; RESP 18; TEMP 37.7; O2SAT 96
[2022-07-11 07:48] LABS: Glucose, Whole Blood 130 mg/dL (60-115)
--- NOTE | 2022-07-11 09:59 | PM.PNGS ---
Subjective Subjective Date of Service: 07/12/22 Interval history: had fever last night states abdominal pain is significantly improved passing flatus and BMs ambulating Physical Exam Vital Signs: Vital Signs: Last Vital Signs Temp 99.8 F 07/11/22 07:39 Pulse 111 H 07/11/22 07:39 Resp 18 07/11/22 07:39 BP 113/57 L 07/11/22 07:39 Pulse Ox 96 07/11/22 07:39 O2 Del Method 07/11/22 07:39 O2 Flow Rate 2 07/11/22 03:11 BMI result Body Mass Index 35.9 Const: Other: Seen ambulating down the hallway well General: comfortable and no acute distress Resp: Other: mildly short of breath Cardio: Rate: tachycardic GI: Other: tender mostly on the lowerabdomen Palpation (GI): Soft to palpation, no guarding and not rigid Objective Data Active Medications Acetaminophen (Acetaminophen 325 Mg Tablet) 650 mg PO Q6H PRN PRN Reason: fever Last Admin: 07/10/22 19:26 Dose: 650 mg Documented By: HALEY Atorvastatin Calcium (Atorvastatin Calcium 10 Mg Tablet) 10 mg PO DAILY [facility] TO [facility] Buspirone HCl (Buspirone Hcl 5 Mg Tablet) 5 mg PO DAILY [facility] Carvedilol (Carvedilol 12.5 Mg Tablet) 12.5 mg PO Q12H [facility]; Protocol Last Admin: 07/10/22 19:27 Dose: 12.5 mg Documented By: HALEY Dextrose (Dextrose 50 % 25 Gm/50 Ml Syringe) 25 gm IVPUSH Q15M PRN; Protocol PRN Reason: per Hypoglycemia Standing Ord. Glucose (Glucose Gel 15 Gm Gel..Gram.) 15 gm PO Q15M PRN; Protocol PRN Reason: per Hypoglycemia Standing Ord. Heparin Sodium (Porcine) (Heparin Sodium,Porcine 5,000 Unit/Ml Vial) 5,000 unit SUBCUT Q8H [facility] Last Admin: 07/11/22 03:15 Dose: 5,000 unit Documented By: HALEY Sodium Chloride (Ns) 1,000 mls @ 100 mls/hr IVCONT .Q10H [facility] Last Admin: 07/11/22 05:30 Dose: 100 mls/hr Documented By: HALEY Piperacillin Sod/Tazobactam (Sod 3.375 gm/ Sodium Chloride) 50 mls @ 100 mls/hr IV Q6H [facility] Last Infusion: 07/11/22 06:08 Dose: 0 mls/hr Documented By: HALEY Morphine Sulfate (Morphine Sulfate 2 Mg/Ml Cartridge) 3 mg IVPUSH Q3H PRN; Protocol PRN Reason: Pain, Severe (Pain Scale 7-10) Last Admin: 07/10/22 14:57 Dose: 3 mg Documented By: MICHELLE Ondansetron HCl (Ondansetron Hcl 4 Mg/2 Ml Vial) 4 mg IVPUSH Q6H PRN PRN Reason: Nausea Oxycodone HCl (Oxycodone Hcl Immed Release 5 Mg Tablet) 10 mg PO Q4H PRN PRN Reason: Pain, Moderate (Pain Scale 4-6 Sodium Chloride (0.9 % Sodium Chloride Flush 3 Ml Syringe) 3 ml IVFLUSH QSHIFT [facility] Last Admin: 07/11/22 00:13 Dose: Not Given Documented By: HALEY Non-Admin Reason: IV Running Labs CBC & Chem 7: 07/11/22 05:44 07/11/22 05:44 Labs: Laboratory Results - last 24 hr 07/10/22 07/10/22 07/10/22 16:34 18:02 18:58 MCV MCH MCHC RDW Plt Count MPV Absolute Nucleated RBC Nucleated RBC % (auto) Anion Gap Estim Creat Clear Calc Estimated GFR POC Glucose 118 H 98 88 Random Glucose Calcium 07/11/22 07/11/22 07/11/22 05:44 05:44 07:36 MCV 96.1 D MCH 27.3 MCHC 28.4 L RDW 15.7 Plt Count 155 L MPV 11.5 Absolute Nucleated RBC 0.000 Nucleated RBC % (auto) 0.0 Anion Gap 12 Estim Creat Clear Calc 91.2 Estimated GFR > 60 POC Glucose 130 H Random Glucose 149 H Calcium 8.2 L Microbiology Microbiology Results: Microbiology 07/10/22 04:26 Blood Culture - Preliminary Blood - Venous No growth after 24 hours. 07/10/22 04:14 Blood Culture - Preliminary Blood - Venous No growth after 24 hours. Procedures Date of Service Date of Service: 07/11/22 Progress Note: A&P Assessment and plan (1) Abdominal pain: Status: Acute Assessment and Plan: CT scan shows thickening of small bowel loops on the right side residual collection although much improved will review films with Dr. Liao to see if he will benefit from additional CT drain had fever but feels better this morning ambulating down the hallway continue IV Zosyn labs okay plans discussed with patient and Emily Time Spent With Patient Time: Total time spent is greater than 50% in coordination of care (as documented) at patient's floor/unit and/or counseling patient: Quality Stroke Does the patient have a stroke diagnosis?: No VTE Prior VTE?: No VTE Risk Level:: Medical - moderate - high VTE Device Contraindication: N/A - Device Ordered VTE Drug Contraindication: N/A - Med Ordered
[2022-07-11] MEDS: Atorvastatin Calcium 10 MG TABLET PO (10:31)
[2022-07-11] MEDS: busPIRone HCl 5 MG TABLET PO (10:31)
[2022-07-11] MEDS: carvediloL 12.5 MG TABLET PO ×2 (10:31→20:52)
--- NOTE | 2022-07-11 10:40 | P.PNIM_ITS ---
Subjective Subjective Date of Service: 07/11/22 Interval History: Seen in follow-up for KYM, DM, obesity Interval history: Patient is reporting LQ and suprapubic discomfort. Feels he may have strained umbilical hernia which was repaired with mesh 2 months ago. He was not able to get his CPAP from home started not sleep with this last night. He is moving his bowels and denies any diarrhea, constipation, melena, hematochezia, nausea, vomiting. Review of Systems General: No fevers, malaise, unintentional weight loss HEENT: No blurred vision, diplopia. Cardiovascular: No chest pain, palpitations, or leg edema Respiratory: No shortness of breath, wheezing, cough GI: + abdominal pain. No nausea, vomiting, diarrhea, constipation, melena, hematochezia : No dysuria, hematuria, increased urinary frequency Neuro: No headaches, weakness, paresthesias Skin: No rashes or lesions Physical Exam Vital Signs: Vital Signs: Last Vital Signs Temp 99.8 F 07/11/22 07:39 Pulse 111 H 07/11/22 07:39 Resp 18 07/11/22 07:39 BP 113/57 L 07/11/22 07:39 Pulse Ox 96 07/11/22 07:39 O2 Del Method 07/11/22 07:39 O2 Flow Rate 2 07/11/22 03:11 BMI result Body Mass Index 35.9 Constitutional - Awake and Alert, No apparent distress Eyes - PERRLA, EOMI Cardiovascular - S1S2, RRR, No edema Respiratory - Normal lung expansion, Normal respiratory effort, No respiratory distress, CTA bilaterally Gastrointestinal - soft, obese abdomen NT,, +BS; No rebound or guarding. Drain in place - No CVA tenderness Extremities - no calf tenderness bilaterally, no swelling Musculoskeletal - Normal inspection, normal ROM Skin - Warm/Dry Neurological - Alert & oriented x3, 5/5 strength BUE and BLE Psychological - Appropriate affect Objective Data Active Medications Acetaminophen (Acetaminophen 325 Mg Tablet) 650 mg PO Q6H PRN PRN Reason: fever Last Admin: 07/10/22 19:26 Dose: 650 mg Documented By: HALEY Atorvastatin Calcium (Atorvastatin Calcium 10 Mg Tablet) 10 mg PO DAILY [facility] Last Admin: 07/11/22 10:31 Dose: 10 mg Documented By: SUE Buspirone HCl (Buspirone Hcl 5 Mg Tablet) 5 mg PO DAILY [facility] Last Admin: 07/11/22 10:31 Dose: 5 mg Documented By: SUE Carvedilol (Carvedilol 12.5 Mg Tablet) 12.5 mg PO Q12H [facility]; Protocol Last Admin: 07/11/22 10:31 Dose: 12.5 mg Documented By: SUE Dextrose (Dextrose 50 % 25 Gm/50 Ml Syringe) 25 gm IVPUSH Q15M PRN; Protocol PRN Reason: per Hypoglycemia Standing Ord. Glucose (Glucose Gel 15 Gm Gel..Gram.) 15 gm PO Q15M PRN; Protocol PRN Reason: per Hypoglycemia Standing Ord. Heparin Sodium (Porcine) (Heparin Sodium,Porcine 5,000 Unit/Ml Vial) 5,000 unit SUBCUT Q8H [facility] Last Admin: 07/11/22 10:31 Dose: 5,000 unit Documented By: SUE Sodium Chloride (Ns) 1,000 mls @ 100 mls/hr IVCONT .Q10H [facility] Last Admin: 07/11/22 05:30 Dose: 100 mls/hr Documented By: HALEY Piperacillin Sod/Tazobactam (Sod 3.375 gm/ Sodium Chloride) 50 mls @ 100 mls/hr IV Q6H [facility] Last Infusion: 07/11/22 06:08 Dose: 0 mls/hr Documented By: HALEY Morphine Sulfate (Morphine Sulfate 2 Mg/Ml Cartridge) 3 mg IVPUSH Q3H PRN; Pro tocol PRN Reason: Pain, Severe (Pain Scale 7-10) Last Admin: 07/10/22 14:57 Dose: 3 mg Documented By: MICHELLE Ondansetron HCl (Ondansetron Hcl 4 Mg/2 Ml Vial) 4 mg IVPUSH Q6H PRN PRN Reason: Nausea Oxycodone HCl (Oxycodone Hcl Immed Release 5 Mg Tablet) 10 mg PO Q4H PRN PRN Reason: Pain, Moderate (Pain Scale 4-6 Sodium Chloride (0.9 % Sodium Chloride Flush 3 Ml Syringe) 3 ml IVFLUSH QSHIFT [facility] Last Admin: 07/11/22 10:32 Dose: Not Given Documented By: SUE Non-Admin Reason: IV Running Labs CBC & Chem 7: 07/11/22 05:44 07/11/22 05:44 Labs: Laboratory Results - last 24 hr 07/10/22 07/10/22 07/10/22 16:34 18:02 18:58 MCV MCH MCHC RDW Plt Count MPV Absolute Nucleated RBC Nucleated RBC % (auto) Anion Gap Estim Creat Clear Calc Estimated GFR POC Glucose 118 H 98 88 Random Glucose Calcium 07/11/22 07/11/22 07/11/22 05:44 05:44 07:36 MCV 96.1 D MCH 27.3 MCHC 28.4 L RDW 15.7 Plt Count 155 L MPV 11.5 Absolute Nucleated RBC 0.000 Nucleated RBC % (auto) 0.0 Anion Gap 12 Estim Creat Clear Calc 91.2 Estimated GFR > 60 POC Glucose 130 H Random Glucose 149 H Calcium 8.2 L Microbiology Microbiology Results: Microbiology 07/10/22 04:26 Blood Culture - Preliminary Blood - Venous No growth after 24 hours. 07/10/22 04:14 Blood Culture - Preliminary Blood - Venous No growth after 24 hours. Assessment and Plan (1) Intra-abdominal abscess: Status: Acute Plan 56-year-old male with past medical history of hypertension, diabetes, sleep apnea on CPAP, with recently diagnosed adenocarcinoma of the appendix when he presented on 03/27 with abdominal pain, at that time CT scan of the abdomen showed acute appendicitis, patient underwent laparoscopic appendectomy with drain placement and right pericolic gutter, he was found to have perforated, necrotic appendicitis, with free fluid in the abdomen with right pericolic abscess.? 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 He was discharged 8 days ago following 4 weeks of TPN and bowel rest and discharged with drain in place. Returned today with abdominal pain x 2 days. We were asked to see pt in management of HTN and diabetes, KYM. # intra-abdominal abscess s/p right colon resection for a T3 N1 adenocarcinoma of the appendix -plan per gen surg # [id number] type 2 diabetes- glucose levels stable at this time -patient is NPO.? Continue holding any insulin administration at this time -POC glucose -hypoglycemia protocol # hypertension-BP soft -patient is NPO -hold on antihypertensives at this time # KYM -CPAP ordered- recommend he bring this from home # depression/mood disorder -continue home meds Thank you for this consult.? Will continue following Quality Stroke Does the patient have a stroke diagnosis?: No VTE Prior VTE?: No VTE Risk Level:: Medical - moderate - high VTE Device Contraindication: N/A - Device Ordered VTE Drug Contraindication: N/A - Med Ordered
[2022-07-11 11:43] VITALS: BP 109/59; PULSE 101; RESP 18; TEMP 37.7; O2SAT 92
[2022-07-11 11:50] LABS: Glucose, Whole Blood 131 mg/dL (60-115)
--- NOTE | 2022-07-11 14:33 | MHC.CM.PN ---
PT LIVES WITH HIS GIRL FRIEND WHO IS IS OUTSIDE [employer]IA [employer] PT USES A WALKER, CANE, DM SUPPLIES, AND A CPAP AT HOME PT HAS A HCP ON FILE PCP: OMID OLVERA HE IS COVID VAX X 3 DCP: RETURN HOME AND RESUME SERVICES GIRL FRIEND TO TRANSPORT
[2022-07-11 15:09] VITALS: BP 113/58; PULSE 101; RESP 18; TEMP 36.8; O2SAT 89
[2022-07-11 16:42] LABS: Glucose, Whole Blood 124 mg/dL (60-115)
[2022-07-11 19:19] VITALS: BP 109/56; PULSE 73; RESP 18; TEMP 37.2; O2SAT 96
[2022-07-11 20:09] LABS: Glucose, Whole Blood 140 mg/dL (60-115)
[2022-07-11] MEDS: Morphine Sulfate 2 MG/ML CARTRIDGE 3 MG IVPUSH (21:05)
[2022-07-11 23:25] VITALS: BP 95/52; PULSE 97; RESP 16; TEMP 36.6; O2SAT 96
[2022-07-11] MEDS: traZODone HCL 50 MG TABLET 150 MG PO (23:29)
[2022-07-12] MEDS: Heparin Sodium,Porcine 5,000 UNIT/ML VIAL 5000 UNIT SUBCUT ×2 (01:16→18:36)
[2022-07-12] MEDS: Famotidine 20 MG TABLET PO ×2 (01:16→10:10)
[2022-07-12] MEDS: 0.9 % Sodium Chloride 1,000 ML 100 ML IVCONT (01:19)
[2022-07-12 03:31] VITALS: BP 127/58; PULSE 99; RESP 18; TEMP 36.6; O2SAT 94
[2022-07-12] MEDS: Piperacillin Sodium/Tazobactam 3.375 GM in 0.9 % Sodium Chloride 50 ML IV ×3 (06:03→18:36)
[2022-07-12 07:42] LABS: Glucose, Whole Blood 102 mg/dL (60-115)
[2022-07-12 07:56] VITALS: BP 118/59; PULSE 102; RESP 18; TEMP 37.1; O2SAT 90
--- NOTE | 2022-07-12 08:26 | P.PNGS_ITS ---
Subjective Subjective Date of Service: 07/12/22 <Bertha Fernandez PA-C - Last Filed: 07/12/22 09:25> 07/13/22 <Lit Norton MD - Last Filed: 07/13/22 11:42> Interval history: Continues to feel a little better since admission. He denies pain. <Bertha Fernandez PA-C - Last Filed: 07/12/22 09:25> Physical Exam Vital Signs: Vital Signs: Last Vital Signs Temp 98.7 F 07/12/22 07:56 Pulse 102 H 07/12/22 07:56 Resp 18 07/12/22 07:56 BP 118/59 L 07/12/22 07:56 Pulse Ox 90 L 07/12/22 07:56 O2 Del Method 07/12/22 07:56 O2 Flow Rate 2 07/11/22 19:19 BMI result Body Mass Index 35.9 <Bertha Fernandez PA-C - Last Filed: 07/12/22 09:25> Const: General: comfortable, no acute distress and alert <Bertha Fernandez PA-C - Last Filed: 07/12/22 09:25> Orientation/consciousness: patient oriented x3 <YESENIA Wilson Last Filed: 07/12/22 09:25> Resp: Effort & Inspection: normal respiratory effort <Bertha Fernandez PA-C - Last Filed: 07/12/22 09:25> GI: Other: pigtail drain with purulent output <Bertha Fernandez PA-C - Last Filed: 07/12/22 09:25> Inspection: Yes distended and Yes incision (clean) <Bertha Fernandez PA-C - Last Filed: 07/12/22 09:25> Palpation (GI): Soft to palpation, nontender, no guarding and not rigid <YESENIA Wilson Last Filed: 07/12/22 09:25> Percussion: Yes tympanic to percussion <YESENIA Wilson Last Filed: 07/12/22 09:25> Skin: General skin exam: no rashes or lesions noted <YESENIA Wilson Last Filed: 07/12/22 09:25> Neuro: General: patient oriented x3 <Bertha Fernandez PA-C - Last Filed: 07/12/22 09:25> Extrem: General: Yes no clubbing, cyanosis or edema <Bertha Fernandez PA-C - Last Filed: 07/12/22 09:25> Objective Data Active Medications Acetaminophen (Acetaminophen 325 Mg Tablet) 650 mg PO Q6H PRN PRN Reason: fever Last Admin: 07/10/22 19:26 Dose: 650 mg Documented By: HALEY Atorvastatin Calcium (Atorvastatin Calcium 10 Mg Tablet) 10 mg PO DAILY [facility] Last Admin: 07/11/22 10:31 Dose: 10 mg Documented By: SUE Buspirone HCl (Buspirone Hcl 5 Mg Tablet) 5 mg PO DAILY [facility] Last Admin: 07/11/22 10:31 Dose: 5 mg Documented By: SUE Carvedilol (Carvedilol 12.5 Mg Tablet) 12.5 mg PO Q12H [facility]; Protocol Last Admin: 07/11/22 20:52 Dose: 12.5 mg Documented By: HALEY Dextrose (Dextrose 50 % 25 Gm/50 Ml Syringe) 25 gm IVPUSH Q15M PRN; Protocol PRN Reason: per Hypoglycemia Standing Ord. Famotidine (Famotidine 20 Mg Tablet) 20 mg PO DAILY [facility] Last Admin: 07/12/22 01:16 Dose: 20 mg Documented By: HALEY Glucose (Glucose Gel 15 Gm Gel..Gram.) 15 gm PO Q15M PRN; Protocol PRN Reason: per Hypoglycemia Standing Ord. Heparin Sodium (Porcine) (Heparin Sodium,Porcine 5,000 Unit/Ml Vial) 5,000 unit SUBCUT Q8H [facility] Last Admin: 07/12/22 01:16 Dose: 5,000 unit Documented By: HALEY Sodium Chloride (Ns) 1,000 mls @ 100 mls/hr IVCONT .Q10H [facility] Last Admin: 07/12/22 01:19 Dose: 100 mls/hr Documented By: HALEY Piperacillin Sod/Tazobactam (Sod 3.375 gm/ Sodium Chloride) 50 mls @ 100 mls/hr IV Q6H [facility] Last Infusion: 07/12/22 06:47 Dose: 0 mls/hr Documented By: HALEY Morphine Sulfate (Morphine Sulfate 2 Mg/Ml Cartridge) 3 mg IVPUSH Q3H PRN; Protocol PRN Reason: Pain, Severe (Pain Scale 7-10) Last Admin: 07/11/22 21:05 Dose: 2 mg Documented By: HALEY Comments: bp low Ondansetron HCl (Ondansetron Hcl 4 Mg/2 Ml Vial) 4 mg IVPUSH Q6H PRN PRN Reason: Nausea Oxycodone HCl (Oxycodone Hcl Immed Release 5 Mg Tablet) 10 mg PO Q4H PRN PRN Reason: Pain, Moderate (Pain Scale 4-6 Sodium Chloride (0.9 % Sodium Chloride Flush 3 Ml Syringe) 3 ml IVFLUSH QSHIFT [facility] Last Admin: 07/11/22 21:12 Dose: Not Given Documented By: HALEY Non-Admin Reason: IV Running Trazodone HCl (Trazodone Hcl 50 Mg Tablet) 150 mg PO BEDTIME [facility] Last Admin: 07/11/22 23:29 Dose: 150 mg Documented By: HALEY <Bertha Fernandez PA-C - Last Filed: 07/12/22 09:25> Labs CBC & Chem 7: : 07/11/22 05:44 07/11/22 05:44 <Bertha Fernandez PA-C - Last Filed: 07/12/22 09:25> Labs: Laboratory Results - last 24 hr 07/11/22 07/11/22 07/11/22 11:40 16:38 19:21 POC Glucose 131 H 124 H 140 H 07/12/22 07:38 POC Glucose 102 <Bertha Fernandez PA-C - Last Filed: 07/12/22 09:25> Microbiology Microbiology Results: Microbiology 07/10/22 04:26 Blood Culture - Preliminary Blood - Venous No growth after 48 hours. 07/10/22 04:14 Blood Culture - Preliminary Blood - Venous No growth after 48 hours. <Bertha Fernandez PA-C - Last Filed: 07/12/22 09:25> Procedures Date of Service Date of Service: 07/12/22 <Bertha Fernandez PA-C - Last Filed: 07/12/22 09:25> Progress Note: A&P Assessment and plan (1) Enterocolitis: Status: Acute <Bertha Fernandez PA-C - Last Filed: 07/12/22 09:25> Assessment and Plan: states he continues to feel better wants to try to eat again good flatus and BMs ambulating well abdomen distended but soft, no guarding rebound mild tenderness on lower abdomen no fever continue on small sips of clear liquids for now may have coffee abdomen remains benign on IV antibiotics seen and examined independently <Lit Norton MD - Last Filed: 07/13/22 11:42> (2) Abdominal pain: Status: Acute <Bertha Fernandez PA-C - Last Filed: 07/12/22 09:25> Assessment and Plan: 56 year old male with complex course following a 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 He had been doing well at home after discharge but started to have abdominal pain again with a CAT scan showing residual intra-abdominal fluid collection with adjacent small bowel wall thickening, initial fluid collection much improved. No leukocytosis. He has been afebrile >24h although having intermittent tachycardia. Is due for carvedilol. Abd remains relatively benign with previous distention. Will continue supportive measures for enterocolitis- bowel rest, IVF and IV zosyn for now. Keep drain in place- now with purulent output, but remains nonbilious. Repeat CT scan if no further improvement, worsening. <Bertha Fernandez PA-C - Last Filed: 07/12/22 09:25> Time Spent With Patient Time: Total time spent is greater than 50% in coordination of care (as documented) at patient's floor/unit and/or counseling patient: <Bertha Fernandez PA-C - Last Filed: 07/12/22 09:25> Quality Stroke Does the patient have a stroke diagnosis?: No <Bertha Fernandez PA-C - Last Filed: 07/12/22 09:25> VTE Prior VTE?: No <Bertha Fernandez PA-C - Last Filed: 07/12/22 09:25> VTE Risk Level:: Medical - moderate - high <Bertha Fernandez PA-C - Last Filed: 07/12/22 09:25> VTE Device Contraindication: N/A - Device Ordered <Bertha Fernandez PA-C - Last Filed: 07/12/22 09:25> VTE Drug Contraindication: N/A - Med Ordered <Bertha Fernandez PA-C - Last Filed: 07/12/22 09:25>
[2022-07-12] MEDS: carvediloL 12.5 MG TABLET PO ×2 (10:10→20:29)
[2022-07-12] MEDS: Atorvastatin Calcium 10 MG TABLET PO (10:10)
[2022-07-12] MEDS: 0.9 % Sodium Chloride Flush 3 ML SYRINGE IVFLUSH ×3 (10:11→20:29)
[2022-07-12] MEDS: busPIRone HCl 5 MG TABLET PO (10:11)
[2022-07-12 11:13] LABS: Glucose, Whole Blood 94 mg/dL (60-115)
[2022-07-12 11:21] VITALS: BP 118/63; PULSE 101; RESP 18; TEMP 37.1; O2SAT 95
--- NOTE | 2022-07-12 11:49 | PC.NURSE ---
patient may have coffee per any Fernandez
--- NOTE | 2022-07-12 11:51 | HO.PM.IMPN ---
Subjective Subjective Date of Service: 07/12/22 Interval History: feeling better this morning less abdominal pain, denies fever chills, no nausea no vomiting, seen by General surgery they recommended sips of clear patient asking for coffee, no acute overnight events Review of Systems [employer] no headache no dizziness CVS no chest pain, no palpitation no urinary frequency Review of Systems: Yes all other systems are reviewed and are negative Physical Exam Vital Signs: Vital Signs: Last Vital Signs Temp 98.8 F 07/12/22 11:21 Pulse 101 H 07/12/22 11:21 Resp 18 07/12/22 11:21 BP 118/63 07/12/22 11:21 Pulse Ox 95 07/12/22 11:21 O2 Del Method 07/12/22 11:21 O2 Flow Rate 2 07/11/22 19:19 BMI result Body Mass Index 35.9 Const: Other: General awake alert x3, resting comfortably in no acute distress. Neck supple no JVD. CVS regular rate rhythm, Respiratory lungs clear to auscultation, no respiratory distress, no wheeze, no rhonchi. Gastrointestinal abdomen distended, nontender, no guarding, no rigidity, bowel sounds audible, incision well healed, drain in place with purulent drainage Extremities no edema. Neuro nonfocal Skin no rash psych appropriate affect Objective Data Active Medications Acetaminophen (Acetaminophen 325 Mg Tablet) 650 mg PO Q6H PRN PRN Reason: fever Last Admin: 07/10/22 19:26 Dose: 650 mg Documented By: HALEY Atorvastatin Calcium (Atorvastatin Calcium 10 Mg Tablet) 10 mg PO DAILY [facility] Last Admin: 07/12/22 10:10 Dose: 10 mg Documented By: DELMIS Buspirone HCl (Buspirone Hcl 5 Mg Tablet) 5 mg PO DAILY [facility] Last Admin: 07/12/22 10:11 Dose: 5 mg Documented By: DELMIS Carvedilol (Carvedilol 12.5 Mg Tablet) 12.5 mg PO Q12H [facility]; Protocol Last Admin: 07/12/22 10:10 Dose: 12.5 mg Documented By: DELMIS Dextrose (Dextrose 50 % 25 Gm/50 Ml Syringe) 25 gm IVPUSH Q15M PRN; Protocol PRN Reason: per Hypoglycemia Standing Ord. Famotidine (Famotidine 20 Mg Tablet) 20 mg PO DAILY [facility] Last Admin: 07/12/22 10:10 Dose: 20 mg Documented By: DELMIS Glucose (Glucose Gel 15 Gm Gel..Gram.) 15 gm PO Q15M PRN; Protocol PRN Reason: per Hypoglycemia Standing Ord. Heparin Sodium (Porcine) (Heparin Sodium,Porcine 5,000 Unit/Ml Vial) 5,000 unit SUBCUT Q8H [facility] Last Admin: 07/12/22 10:12 Dose: Not Given Documented By: DELMIS Non-Admin Reason: labs Piperacillin Sod/Tazobactam (Sod 3.375 gm/ Sodium Chloride) 50 mls @ 100 mls/hr IV Q6H [facility] Last Infusion: 07/12/22 06:47 Dose: 0 mls/hr Documented By: HALEY Morphine Sulfate (Morphine Sulfate 2 Mg/Ml Cartridge) 3 mg IVPUSH Q3H PRN; Protocol PRN Reason: Pain, Severe (Pain Scale 7-10) Last Admin: 07/11/22 21:05 Dose: 2 mg Documented By: HALEY Comments: bp low Ondansetron HCl (Ondansetron Hcl 4 Mg/2 Ml Vial) 4 mg IVPUSH Q6H PRN PRN Reason: Nausea Oxycodone HCl (Oxycodone Hcl Immed Release 5 Mg Tablet) 10 mg PO Q4H PRN PRN Reason: Pain, Moderate (Pain Scale 4-6 Sodium Chloride (0.9 % Sodium Chloride Flush 3 Ml Syringe) 3 ml IVFLUSH QSHIFT [facility] Last Admin: 07/12/22 10:11 Dose: 3 ml Documented By: DELMIS Trazodone HCl (Trazodone Hcl 50 Mg Tablet) 150 mg PO BEDTIME [facility] Last Admin: 07/11/22 23:29 Dose: 150 mg Documented By: HALEY Labs CBC & Chem 7: 07/11/22 05:44 07/11/22 05:44 Labs: Laboratory Results - last 24 hr 07/11/22 07/11/22 07/12/22 16:38 19:21 07:38 POC Glucose 124 H 140 H 102 07/12/22 11:00 POC Glucose 94 Microbiology Microbiology Results: Microbiology 07/10/22 04:26 Blood Culture - Preliminary Blood - Venous No growth after 48 hours. 07/10/22 04:14 Blood Culture - Preliminary Blood - Venous No growth after 48 hours. Assessment and Plan (1) Intra-abdominal abscess: Status: Acute Plan 56-year-old male with past medical history of hypertension, diabetes, sleep apnea on CPAP, with recently diagnosed adenocarcinoma of the appendix when he presented on 03/27 with abdominal pain, at that time CT scan of the abdomen showed acute appendicitis, patient underwent laparoscopic appendectomy with drain placement and right pericolic gutter, he was found to have perforated, necrotic appendicitis, with free fluid in the abdomen with right pericolic abscess.? 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 He was discharged 8 days ago following 4 weeks of TPN and bowel rest and discharged with drain in place. Returned today with abdominal pain x 2 days. We were asked to see pt in management of HTN and diabetes, KYM. # intra-abdominal abscess s/p right colon resection for a T3 N1 adenocarcinoma of the appendix -plan per gen surg, on IV Zosyn day 2 # [id number] type 2 diabetes- blood sugars stable, on sips of clear, continue to hold insulin, monitor blood sugar closely # hypertension on Coreg 12.5 mg b.i.d. blood pressure is stable # KYM -CPAP # depression/mood disorder -continue trazodone and resume sertraline disposition as per General surgery Quality Stroke Does the patient have a stroke diagnosis?: No VTE Prior VTE?: No VTE Risk Level:: Medical - moderate - high VTE Device Contraindication: N/A - Device Ordered VTE Drug Contraindication: N/A - Med Ordered
--- NOTE | 2022-07-12 15:15 | MHC.CM.PN ---
EMR REVIEWED PER MD ROUNDS, NO PLAN FOR DC TODAY (INTRA-ABDOMINAL ABSCESS, SURGICAL PATIENT) CM WILL CONTINUE TO FOLLOW FOR DC NEEDS.
[2022-07-12 15:57] VITALS: BP 111/61; PULSE 95; RESP 18; TEMP 36.6; O2SAT 95
--- NOTE | 2022-07-12 16:24 | PM.EVENT ---
Event Note Date of Service: 07/12/22 Event Note: Seen earlier on afternoon rounds Continues to feel well Abdominal pain much improved He has been ambulating Abdomen remained soft He looks well Continue current care Family at bedside
[2022-07-12 16:28] LABS: Glucose, Whole Blood 119 mg/dL (60-115)
[2022-07-12 19:23] VITALS: BP 127/58; PULSE 93; RESP 18; TEMP 36.6; O2SAT 95
[2022-07-12 19:39] LABS: Glucose, Whole Blood 141 mg/dL (60-115)
[2022-07-12] MEDS: Sertraline HCL 50 MG TABLET 150 MG PO (20:29)
[2022-07-12] MEDS: traZODone HCL 50 MG TABLET 150 MG PO (21:33)
[2022-07-13] VITALS: BP 96/53; PULSE 90; RESP 18; TEMP 36.8; O2SAT 97
[2022-07-13] MEDS: Heparin Sodium,Porcine 5,000 UNIT/ML VIAL 5000 UNIT SUBCUT ×3 (01:08→18:46)
[2022-07-13] MEDS: Piperacillin Sodium/Tazobactam 3.375 GM in 0.9 % Sodium Chloride 50 ML IV ×4 (01:08→18:47)
[2022-07-13 03:28] VITALS: BP 110/62; PULSE 87; RESP 18; TEMP 36.6; O2SAT 98
[2022-07-13 07:34] LABS: Glucose, Whole Blood 120 mg/dL (60-115)
[2022-07-13 08:00] VITALS: BP 133/77; PULSE 92; RESP 17; TEMP 36.6; O2SAT 96
[2022-07-13] MEDS: carvediloL 12.5 MG TABLET PO ×2 (08:40→21:52)
[2022-07-13] MEDS: 0.9 % Sodium Chloride Flush 3 ML SYRINGE IVFLUSH (08:40)
[2022-07-13] MEDS: Famotidine 20 MG TABLET PO (08:40)
[2022-07-13] MEDS: busPIRone HCl 5 MG TABLET PO (08:40)
[2022-07-13] MEDS: Atorvastatin Calcium 10 MG TABLET PO (08:40)
--- NOTE | 2022-07-13 08:52 | P.PNGS_ITS ---
Subjective Subjective Date of Service: 07/13/22 <Bertha Fernandez PA-C - Last Filed: 07/13/22 08:57> 07/13/22 <Lit Norton MD - Last Filed: 07/13/22 11:43> Interval history: Feeling much better. Denies any abdominal pain. Has been OOB and ambulating the halls. Wants to eat and go home. <Bertha Fernandez PA-C - Last Filed: 07/13/22 08:57> Physical Exam Vital Signs: Vital Signs: Last Vital Signs Temp 97.8 F 07/13/22 08:00 Pulse 92 07/13/22 08:00 Resp 17 07/13/22 08:00 BP 133/77 07/13/22 08:00 Pulse Ox 96 07/13/22 08:00 O2 Del Method 07/13/22 08:00 O2 Flow Rate 2 07/13/22 03:28 BMI result Body Mass Index 35.9 <Bertha Fernandez PA-C - Last Filed: 07/13/22 08:57> Const: General: comfortable, no acute distress and alert <Bertha Fernandez PA-C - Last Filed: 07/13/22 08:57> Orientation/consciousness: patient oriented x3 <Bertha Fernandez PA-C - Last Filed: 07/13/22 08:57> Resp: Effort & Inspection: normal respiratory effort <Bertha Fernandez PA-C - Last Filed: 07/13/22 08:57> GI: Other: MARY drain with scanty purulent output <Bertha Fernandez PA-C - Last Filed: 07/13/22 08:57> Inspection: Yes distended and Yes incision (clean appearing) <Bertha Fernandez PA-C - Last Filed: 07/13/22 08:57> Palpation (GI): Soft to palpation, nontender, no guarding and not rigid <YESENIA Wilson Last Filed: 07/13/22 08:57> Percussion: Yes tympanic to percussion <YESENIA Wilson Last Filed: 07/13/22 08:57> Skin: General skin exam: no rashes or lesions noted <Bertha Fernandez PA-C - Last Filed: 07/13/22 08:57> Neuro: General: patient oriented x3 <Bertha Fernandez PA-C - Last Filed: 07/13/22 08:57> Objective Data Active Medications Acetaminophen (Acetaminophen 325 Mg Tablet) 650 mg PO Q6H PRN PRN Reason: fever Last Admin: 07/10/22 19:26 Dose: 650 mg Documented By: HALEY Atorvastatin Calcium (Atorvastatin Calcium 10 Mg Tablet) 10 mg PO DAILY [facility] Last Admin: 07/13/22 08:40 Dose: 10 mg Documented By: NA Buspirone HCl (Buspirone Hcl 5 Mg Tablet) 5 mg PO DAILY [facility] Last Admin: 07/13/22 08:40 Dose: 5 mg Documented By: NA Carvedilol (Carvedilol 12.5 Mg Tablet) 12.5 mg PO Q12H [facility]; Protocol Last Admin: 07/13/22 08:40 Dose: 12.5 mg Documented By: NA Dextrose (Dextrose 50 % 25 Gm/50 Ml Syringe) 25 gm IVPUSH Q15M PRN; Protocol PRN Reason: per Hypoglycemia Standing Ord. Famotidine (Famotidine 20 Mg Tablet) 20 mg PO DAILY [facility] Last Admin: 07/13/22 08:40 Dose: 20 mg Documented By: NA Glucose (Glucose Gel 15 Gm Gel..Gram.) 15 gm PO Q15M PRN; Protocol PRN Reason: per Hypoglycemia Standing Ord. Heparin Sodium (Porcine) (Heparin Sodium,Porcine 5,000 Unit/Ml Vial) 5,000 unit SUBCUT Q8H [facility] Last Admin: 07/13/22 01:08 Dose: 5,000 unit Documented By: SHERI Piperacillin Sod/Tazobactam (Sod 3.375 gm/ Sodium Chloride) 50 mls @ 100 mls/hr IV Q6H [facility] Last Infusion: 07/13/22 06:06 Dose: 0 mls/hr Documented By: SHERI Morphine Sulfate (Morphine Sulfate 2 Mg/Ml Cartridge) 3 mg IVPUSH Q3H PRN; Protocol PRN Reason: Pain, Severe (Pain Scale 7-10) Last Admin: 07/11/22 21:05 Dose: 2 mg Documented By: HALEY Comments: bp low Ondansetron HCl (Ondansetron Hcl 4 Mg/2 Ml Vial) 4 mg IVPUSH Q6H PRN PRN Reason: Nausea Oxycodone HCl (Oxycodone Hcl Immed Release 5 Mg Tablet) 10 mg PO Q4H PRN PRN Reason: Pain, Moderate (Pain Scale 4-6 Sertraline HCl (Sertraline Hcl 50 Mg Tablet) 150 mg PO BEDTIME [facility] Last Admin: 07/12/22 20:29 Dose: 150 mg Documented By: SHERI Sodium Chloride (0.9 % Sodium Chloride Flush 3 Ml Syringe) 3 ml IVFLUSH QSHIFT [facility] Last Admin: 07/13/22 08:40 Dose: 3 ml Documented By: NA Trazodone HCl (Trazodone Hcl 50 Mg Tablet) 150 mg PO BEDTIME [facility] Last Admin: 07/12/22 21:33 Dose: 150 mg Documented By: SHERI <Bertha Fernandez PA-C - Last Filed: 07/13/22 08:57> Labs CBC & Chem 7: : 07/11/22 05:44 07/11/22 05:44 <Bertha Fernandez PA-C - Last Filed: 07/13/22 08:57> Labs: Laboratory Results - last 24 hr 07/12/22 07/12/22 07/12/22 11:00 15:59 19:26 POC Glucose 94 119 H 141 H 07/13/22 07:29 POC Glucose 120 H <Bertha Fernandez PA-C - Last Filed: 07/13/22 08:57> Microbiology Microbiology Results: Microbiology 07/10/22 04:26 Blood Culture - Preliminary Blood - Venous No growth after 48 hours. 07/10/22 04:14 Blood Culture - Preliminary Blood - Venous No growth after 48 hours. <Bertha Fernandez PA-C - Last Filed: 07/13/22 08:57> Procedures Date of Service Date of Service: 07/13/22 <Bertha Fernandez PA-C - Last Filed: 07/13/22 08:57> Progress Note: A&P Assessment and plan (1) Enterocolitis: Status: Acute <Bertha Fernandez PA-C - Last Filed: 07/13/22 08:57> Assessment and Plan: continues to feel better denies abdl pain has been ambulating good flatus an BMs no fever abd soft, benign ok to start clear liquids seen and examined independently <Lit Norton MD - Last Filed: 07/13/22 11:43> (2) Abdominal pain: Status: Acute <Bertha Fernandez PA-C - Last Filed: 07/13/22 08:57> (3) Intra-abdominal abscess: Status: Acute <Bertha Fernandez PA-C - Last Filed: 07/13/22 08:57> Assessment and Plan: 56 year old male with complex course following a 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 He had been doing well at home after discharge but started to have abdominal pain again with a CAT scan showing residual intra-abdominal fluid collection with adjacent small bowel wall thickening, initial fluid collection much improved. No leukocytosis. He is improved. He has no abdominal pain. He has been afebrile >48h. Abd remains benign with previous distention. Will advance to clear liquids and then further as tolerated. Keep drain in place. Cont IV zosyn for now. <Bertha Fernandez PA-C - Last Filed: 07/13/22 08:57> Time Spent With Patient Time: Total time spent is greater than 50% in coordination of care (as documented) at patient's floor/unit and/or counseling patient: <Bertha Fernandez PA-C - Last Filed: 07/13/22 08:57> Quality Stroke Does the patient have a stroke diagnosis?: No <Bertha Fernandez PA-C - Last Filed: 07/13/22 08:57> VTE Prior VTE?: No <Bertha Fernandez PA-C - Last Filed: 07/13/22 08:57> VTE Risk Level:: Medical - moderate - high <YESENIA Wilson Last Filed: 07/13/22 08:57> VTE Device Contraindication: N/A - Device Ordered <Bertha Fernandez PA-C - Last Filed: 07/13/22 08:57> VTE Drug Contraindication: N/A - Med Ordered <Bertha Fernandez PA-C - Last Filed: 07/13/22 08:57>
[2022-07-13 11:46] LABS: Glucose, Whole Blood 112 mg/dL (60-115)
[2022-07-13 11:49] VITALS: BP 123/63; PULSE 90; RESP 18; TEMP 37.7; O2SAT 95
--- NOTE | 2022-07-13 12:42 | HO.PM.IMPN ---
Subjective Subjective Date of Service: 07/13/22 Interval History: patient offers no acute complaints this morning requesting for coffee, denies abdominal pain, no nausea, no vomiting, no fevers no chills, passing flatus had bowel movement. Review of Systems General no headache no dizziness no fever chills. CVS no chest pain, no palpitation. Respiratory no cough no sob. Gastrointestinal no nausea no vomiting, no abdominal pain Review of Systems: Yes all other systems are reviewed and are negative Physical Exam Vital Signs: Vital Signs: Last Vital Signs Temp 99.9 F 07/13/22 11:49 Pulse 90 07/13/22 11:49 Resp 18 07/13/22 11:49 BP 123/63 07/13/22 11:49 Pulse Ox 95 07/13/22 11:49 O2 Del Method 07/13/22 11:49 O2 Flow Rate 2 07/13/22 03:28 BMI result Body Mass Index 35.9 Const: Other: General? awake alert x3, resting comfortably in no acute distress.? Neck? supple no JVD. CVS? regular rate rhythm, Respiratory lungs clear to auscultation, no respiratory distress, no wheeze, no rhonchi. Gastrointestinal abdomen? distended, nontender, no guarding, no rigidity, bowel sounds audible, incision well healed, drain in place Extremities no? edema. Neuro nonfocal Skin no rash psych appropriate affect Objective Data Active Medications Acetaminophen (Acetaminophen 325 Mg Tablet) 650 mg PO Q6H PRN PRN Reason: fever Last Admin: 07/10/22 19:26 Dose: 650 mg Documented By: HALEY Atorvastatin Calcium (Atorvastatin Calcium 10 Mg Tablet) 10 mg PO DAILY [facility] Last Admin: 07/13/22 08:40 Dose: 10 mg Documented By: NA Buspirone HCl (Buspirone Hcl 5 Mg Tablet) 5 mg PO DAILY [facility] Last Admin: 07/13/22 08:40 Dose: 5 mg Documented By: AN Carvedilol (Carvedilol 12.5 Mg Tablet) 12.5 mg PO Q12H [facility]; Protocol Last Admin: 07/13/22 08:40 Dose: 12.5 mg Documented By: NA Dextrose (Dextrose 50 % 25 Gm/50 Ml Syringe) 25 gm IVPUSH Q15M PRN; Protocol PRN Reason: per Hypoglycemia Standing Ord. Famotidine (Famotidine 20 Mg Tablet) 20 mg PO DAILY [facility] Last Admin: 07/13/22 08:40 Dose: 20 mg Documented By: NA Glucose (Glucose Gel 15 Gm Gel..Gram.) 15 gm PO Q15M PRN; Protocol PRN Reason: per Hypoglycemia Standing Ord. Heparin Sodium (Porcine) (Heparin Sodium,Porcine 5,000 Unit/Ml Vial) 5,000 unit SUBCUT Q8H [facility] Last Admin: 07/13/22 11:06 Dose: 5,000 unit Documented By: NA Piperacillin Sod/Tazobactam (Sod 3.375 gm/ Sodium Chloride) 50 mls @ 100 mls/hr IV Q6H [facility] Last Admin: 07/13/22 11:07 Dose: 100 mls/hr Documented By: NA Morphine Sulfate (Morphine Sulfate 2 Mg/Ml Cartridge) 3 mg IVPUSH Q3H PRN; Protocol PRN Reason: Pain, Severe (Pain Scale 7-10) Last Admin: 07/11/22 21:05 Dose: 2 mg Documented By: HALEY Comments: bp low Ondansetron HCl (Ondansetron Hcl 4 Mg/2 Ml Vial) 4 mg IVPUSH Q6H PRN PRN Reason: Nausea Oxycodone HCl (Oxycodone Hcl Immed Release 5 Mg Tablet) 10 mg PO Q4H PRN PRN Reason: Pain, Moderate (Pain Scale 4-6 Sertraline HCl (Sertraline Hcl 50 Mg Tablet) 150 mg PO BEDTIME [facility] Last Admin: 07/12/22 20:29 Dose: 150 mg Documented By: SHERI Sodium Chloride (0.9 % Sodium Chloride Flush 3 Ml Syringe) 3 ml IVFLUSH QSHIFT [facility]PL[facility] Last Admin: 07/13/22 08:40 Dose: 3 ml Documented By: NA Trazodone HCl (Trazodone Hcl 50 Mg Tablet) 150 mg PO BEDTIME [facility] Last Admin: 07/12/22 21:33 Dose: 150 mg Documented By: SHERI Labs CBC & Chem 7: 07/11/22 05:44 07/11/22 05:44 Labs: Laboratory Results - last 24 hr 07/12/22 07/12/22 07/13/22 15:59 19:26 07:29 POC Glucose 119 H 141 H 120 H 07/13/22 11:29 POC Glucose 112 Assessment and Plan (1) Intra-abdominal abscess: Status: Acute Plan 56-year-old male with past medical history of hypertension, diabetes, sleep apnea on CPAP, with recently diagnosed adenocarcinoma of the appendix when he presented on 03/27 with abdominal pain, at that time CT scan of the abdomen showed acute appendicitis, patient underwent laparoscopic appendectomy with drain placement and right pericolic gutter, he was found to have perforated, necrotic appendicitis, with free fluid in the abdomen with right pericolic abscess.? 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 He was discharged 8 days ago following 4 weeks of TPN and bowel rest and discharged with drain in place. Returned today with abdominal pain x 2 days. We were asked to see pt in management of HTN and diabetes, KYM. 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 # KYM using CPAP # depression/mood disorder -continue trazodone and sertraline disposition as per General surgery Quality Stroke Does the patient have a stroke diagnosis?: No VTE Prior VTE?: No VTE Risk Level:: Medical - moderate - high VTE Device Contraindication: N/A - Device Ordered VTE Drug Contraindication: N/A - Med Ordered
[2022-07-13 15:19] VITALS: BP 145/76; PULSE 91; RESP 18; TEMP 36.3; O2SAT 96
[2022-07-13 15:55] LABS: Glucose, Whole Blood 133 mg/dL (60-115)
[2022-07-13] MEDS: 0.9 % Sodium Chloride 1,000 ML 60 ML IVCONT (18:46)
[2022-07-13 19:04] VITALS: BP 148/67; PULSE 86; RESP 19; TEMP 36.3; O2SAT 98
[2022-07-13 19:33] LABS: Glucose, Whole Blood 124 mg/dL (60-115)
[2022-07-13] MEDS: traZODone HCL 50 MG TABLET 150 MG PO (21:52)
[2022-07-13] MEDS: Sertraline HCL 50 MG TABLET 150 MG PO (21:53)
[2022-07-14] VITALS (7 sets, daily range): BP systolic 125–140; BP diastolic 65–76; PULSE 74–90; RESP 17–20; TEMP 36.2–37.5; O2SAT 95–98
[2022-07-14] MEDS: Piperacillin Sodium/Tazobactam 3.375 GM in 0.9 % Sodium Chloride 50 ML IV ×5 (00:02→23:48)
[2022-07-14] MEDS: Heparin Sodium,Porcine 5,000 UNIT/ML VIAL 5000 UNIT SUBCUT ×3 (00:53→17:42)
[2022-07-14 08:12] LABS: Glucose, Whole Blood 105 mg/dL (60-115)
--- NOTE | 2022-07-14 09:13 | P.PNIM_ITS ---
Subjective Subjective Date of Service: 07/14/22 Interval History: sitting comfortably offers no acute complaints denies abdominal pain, no nausea no vomiting , no fevers no chills, no acute issues overnight,tolerating clear liquid diets, requesting to advance diet Review of Systems General no headache no dizziness no fever chills.? CVS no chest pain, no palpitation.? Respiratory no cough no sob.? Gastrointestinal no nausea no vomiting, no abdominal pain Review of Systems: Yes all other systems are reviewed and are negative Physical Exam Vital Signs: Vital Signs: Last Vital Signs Temp 99.5 F 07/14/22 08:00 Pulse 74 07/14/22 08:00 Resp 17 07/14/22 08:00 BP 140/76 H 07/14/22 08:00 Pulse Ox 95 07/14/22 08:00 O2 Del Method 07/14/22 08:00 O2 Flow Rate 2 07/14/22 00:00 BMI result Body Mass Index 35.9 Const: Other: General? awake alert x3, resting comfortably in no acute distress.? Neck? supple no JVD. CVS? regular rate rhythm, Respiratory lungs clear to auscultation, no respiratory distress, no wheeze, no rhonchi. Gastrointestinal abdomen? distended, nontender, no guarding, no rigidity, bowel sounds audible, incision well healed, drain in place Extremities no? edema. Neuro nonfocal Skin no rash psych appropriate affect Objective Data Active Medications Acetaminophen (Acetaminophen 325 Mg Tablet) 650 mg PO Q6H PRN PRN Reason: fever Last Admin: 07/10/22 19:26 Dose: 650 mg Documented By: HALEY Atorvastatin Calcium (Atorvastatin Calcium 10 Mg Tablet) 10 mg PO DAILY [facility] Last Admin: 07/13/22 08:40 Dose: 10 mg Documented By: NA Buspirone HCl (Buspirone Hcl 5 Mg Tablet) 5 mg PO DAILY [facility] Last Admin: 07/13/22 08:40 Dose: 5 mg Documented By: NA Carvedilol (Carvedilol 12.5 Mg Tablet) 12.5 mg PO Q12H [facility]; Protocol Last Admin: 07/13/22 21:52 Dose: 12.5 mg Documented By: SHERI Dextrose (Dextrose 50 % 25 Gm/50 Ml Syringe) 25 gm IVPUSH Q15M PRN; Protocol PRN Reason: per Hypoglycemia Standing Ord. Famotidine (Famotidine 20 Mg Tablet) 20 mg PO DAILY [facility] Last Admin: 07/13/22 08:40 Dose: 20 mg Documented By: NA Glucose (Glucose Gel 15 Gm Gel..Gram.) 15 gm PO Q15M PRN; Protocol PRN Reason: per Hypoglycemia Standing Ord. Heparin Sodium (Porcine) (Heparin Sodium,Porcine 5,000 Unit/Ml Vial) 5,000 unit SUBCUT Q8H [facility] Last Admin: 07/14/22 00:53 Dose: 5,000 unit Documented By: SHERI Piperacillin Sod/Tazobactam (Sod 3.375 gm/ Sodium Chloride) 50 mls @ 100 mls/hr IV Q6H [facility] Last Infusion: 07/14/22 06:00 Dose: 0 mls/hr Documented By: SHERI Morphine Sulfate (Morphine Sulfate 2 Mg/Ml Cartridge) 3 mg IVPUSH Q3H PRN; Protocol PRN Reason: Pain, Severe (Pain Scale 7-10) Last Admin: 07/11/22 21:05 Dose: 2 mg Documented By: HALEY Comments: bp low Ondansetron HCl (Ondansetron Hcl 4 Mg/2 Ml Vial) 4 mg IVPUSH Q6H PRN PRN Reason: Nausea Oxycodone HCl (Oxycodone Hcl Immed Release 5 Mg Tablet) 10 mg PO Q4H PRN PRN Reason: Pain, Moderate (Pain Scale 4-6 Sertraline HCl (Sertraline Hcl 50 Mg Tablet) 150 mg PO BEDTIME [facility] Last Admin: 07/13/22 21:53 Dose: 150 mg Documented By: SHERI Sodium Chloride (0.9 % Sodium Chloride Flush 3 Ml Syringe) 3 ml IVFLUSH QSHIFT [facility] Last Admin: 07/14/22 07:22 Dose: Not Given Documented By: BENNETT Non-Admin Reason: IV Running Trazodone HCl (Trazodone Hcl 50 Mg Tablet) 150 mg PO BEDTIME [facility] Last Admin: 07/13/22 21:52 Dose: 150 mg Documented By: SHERI Labs CBC & Chem 7: 07/11/22 05:44 07/11/22 05:44 Labs: Laboratory Results - last 24 hr 07/13/22 07/13/22 07/13/22 11:29 15:20 19:27 POC Glucose 112 133 H 124 H 07/14/22 08:00 POC Glucose 105 Assessment and Plan (1) Intra-abdominal abscess: Status: Acute Plan 56-year-old male with past medical history of hypertension, diabetes, sleep apnea on CPAP, with recently diagnosed adenocarcinoma of the appendix when he presented on 03/27 with abdominal pain, at that time CT scan of the abdomen showed acute appendicitis, patient underwent laparoscopic appendectomy with drain placement and right pericolic gutter, he was found to have perforated, necrotic appendicitis, with free fluid in the abdomen with right pericolic abscess.? 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 He was discharged 8 days ago following 4 weeks of TPN and bowel rest and discharged with drain in place. Returned today with abdominal pain x 2 days. We were asked to see pt in management of HTN and diabetes, KYM. 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 # KYM using CPAP # depression/mood disorder -continue trazodone and sertraline disposition as per General surgery Quality Stroke Does the patient have a stroke diagnosis?: No VTE Prior VTE?: No VTE Risk Level:: Medical - moderate - high VTE Device Contraindication: N/A - Device Ordered VTE Drug Contraindication: N/A - Med Ordered
[2022-07-14] MEDS: Famotidine 20 MG TABLET PO (09:21)
[2022-07-14] MEDS: busPIRone HCl 5 MG TABLET PO (09:21)
[2022-07-14] MEDS: carvediloL 12.5 MG TABLET PO ×2 (09:21→21:22)
[2022-07-14] MEDS: Atorvastatin Calcium 10 MG TABLET PO (09:21)
[2022-07-14 11:34] LABS: Glucose, Whole Blood 109 mg/dL (60-115)
--- NOTE | 2022-07-14 12:36 | P.PNGS_ITS ---
Subjective Subjective Date of Service: 07/15/22 Interval history: feels well denies pain tolerating clears wants to eat - hungry Physical Exam Vital Signs: Vital Signs: Last Vital Signs Temp 99.5 F 07/14/22 08:00 Pulse 74 07/14/22 08:00 Resp 17 07/14/22 08:00 BP 140/76 H 07/14/22 08:00 Pulse Ox 95 07/14/22 08:00 O2 Del Method 07/14/22 08:00 O2 Flow Rate 2 07/14/22 00:00 BMI result Body Mass Index 35.9 Const: General: comfortable and no acute distress Resp: Effort & Inspection: normal respiratory effort Cardio: Rate: regular rate GI: Other: very minimal tenderness lower abdomen Palpation (GI): Soft to palpation and not firm Objective Data Active Medications Acetaminophen (Acetaminophen 325 Mg Tablet) 650 mg PO Q6H PRN PRN Reason: fever Last Admin: 07/10/22 19:26 Dose: 650 mg Documented By: HALEY Atorvastatin Calcium (Atorvastatin Calcium 10 Mg Tablet) 10 mg PO DAILY [facility] Last Admin: 07/14/22 09:21 Dose: 10 mg Documented By: BENNETT Buspirone HCl (Buspirone Hcl 5 Mg Tablet) 5 mg PO DAILY [facility] Last Admin: 07/14/22 09:21 Dose: 5 mg Documented By: BENNETT Carvedilol (Carvedilol 12.5 Mg Tablet) 12.5 mg PO Q12H [facility]; Protocol Last Admin: 07/14/22 09:21 Dose: 12.5 mg Documented By: BENNETT Dextrose (Dextrose 50 % 25 Gm/50 Ml Syringe) 25 gm IVPUSH Q15M PRN; Protocol PRN Reason: per Hypoglycemia Standing Ord. Famotidine (Famotidine 20 Mg Tablet) 20 mg PO DAILY [facility] Last Admin: 07/14/22 09:21 Dose: 20 mg Documented By: BENNETT Glucose (Glucose Gel 15 Gm Gel..Gram.) 15 gm PO Q15M PRN; Protocol PRN Reason: per Hypoglycemia Standing Ord. Heparin Sodium (Porcine) (Heparin Sodium,Porcine 5,000 Unit/Ml Vial) 5,000 unit SUBCUT Q8H [facility] Last Admin: 07/14/22 09:21 Dose: 5,000 unit Documented By: BENNETT Piperacillin Sod/Tazobactam (Sod 3.375 gm/ Sodium Chloride) 50 mls @ 100 mls/hr IV Q6H [facility] Last Admin: 07/14/22 12:12 Dose: 100 mls/hr Documented By: BENNETT Morphine Sulfate (Morphine Sulfate 2 Mg/Ml Cartridge) 3 mg IVPUSH Q3H PRN; Protocol PRN Reason: Pain, Severe (Pain Scale 7-10) Last Admin: 07/11/22 21:05 Dose: 2 mg Documented By: HALEY Comments: bp low Ondansetron HCl (Ondansetron Hcl 4 Mg/2 Ml Vial) 4 mg IVPUSH Q6H PRN PRN Reason: Nausea Oxycodone HCl (Oxycodone Hcl Immed Release 5 Mg Tablet) 10 mg PO Q4H PRN PRN Reason: Pain, Moderate (Pain Scale 4-6 Sertraline HCl (Sertraline Hcl 50 Mg Tablet) 150 mg PO BEDTIME [facility] Last Admin: 07/13/22 21:53 Dose: 150 mg Documented By: SHERI Sodium Chloride (0.9 % Sodium Chloride Flush 3 Ml Syringe) 3 ml IVFLUSH QSHIFT [facility] Last Admin: 07/14/22 07:22 Dose: Not Given Documented By: BENNETT Non-Admin Reason: IV Running Trazodone HCl (Trazodone Hcl 50 Mg Tablet) 150 mg PO BEDTIME [facility] Last Admin: 07/13/22 21:52 Dose: 150 mg Documented By: SHERI Labs CBC & Chem 7: 07/11/22 05:44 07/11/22 05:44 Labs: Laboratory Results - last 24 hr 07/13/22 07/13/22 07/14/22 15:20 19:27 08:00 POC Glucose 133 H 124 H 105 07/14/22 11:23 POC Glucose 109 Procedures Date of Service Date of Service: 07/14/22 Progress Note: A&P Assessment and plan (1) Intra-abdominal abscess: Status: Acute Assessment and Plan: feels much better on clear liquids likely advance diet tomorrow looks well films reviewed with Dr. Liao - abscess site much improved, may have residual air and collection but would hold off on any repeat drain at this time IV abx he has been ambulating. clinically doing well Time Spent With Patient Time: Total time spent is greater than 50% in coordination of care (as documented) at patient's floor/unit and/or counseling patient: Quality Stroke Does the patient have a stroke diagnosis?: No VTE Prior VTE?: No VTE Risk Level:: Medical - moderate - high VTE Device Contraindication: N/A - Device Ordered VTE Drug Contraindication: N/A - Med Ordered
--- NOTE | 2022-07-14 14:55 | MHC.CM.PN ---
EMR REVIEWED, PER SURGICAL NOTE PT DIET ADVANCING, PT REMAINS ON IV ABX AND NO PLAN FOR D/C TODAY, CM WILL CONT TO FOLLOW D/C NEEDS.
[2022-07-14 15:23] LABS: Glucose, Whole Blood 109 mg/dL (60-115)
[2022-07-14 19:26] LABS: Glucose, Whole Blood 129 mg/dL (60-115)
[2022-07-14] MEDS: traZODone HCL 50 MG TABLET 150 MG PO (21:22)
[2022-07-14] MEDS: 0.9 % Sodium Chloride Flush 3 ML SYRINGE IVFLUSH (21:22)
[2022-07-14] MEDS: Sertraline HCL 50 MG TABLET 150 MG PO (21:22)
[2022-07-15] MEDS: Heparin Sodium,Porcine 5,000 UNIT/ML VIAL 5000 UNIT SUBCUT ×2 (03:27→09:17)
[2022-07-15 03:38] VITALS: BP 130/68; PULSE 83; RESP 19; TEMP 37.2; O2SAT 97
[2022-07-15] MEDS: Piperacillin Sodium/Tazobactam 3.375 GM in 0.9 % Sodium Chloride 50 ML IV ×4 (05:32→23:25)
[2022-07-15 08:00] VITALS: BP 135/79; PULSE 82; RESP 18; TEMP 37.4; O2SAT 94
[2022-07-15 08:08] LABS: Glucose, Whole Blood 102 mg/dL (60-115)
[2022-07-15] MEDS: Famotidine 20 MG TABLET PO (09:17)
[2022-07-15] MEDS: carvediloL 12.5 MG TABLET PO ×2 (09:17→20:01)
[2022-07-15] MEDS: 0.9 % Sodium Chloride Flush 3 ML SYRINGE IVFLUSH ×3 (09:17→20:01)
[2022-07-15] MEDS: busPIRone HCl 5 MG TABLET PO (09:17)
[2022-07-15] MEDS: Atorvastatin Calcium 10 MG TABLET PO (09:17)
--- NOTE | 2022-07-15 10:57 | HO.PM.IMPN ---
Subjective Subjective Date of Service: 07/15/22 Interval History: Resting comfortably or chair offers no acute complaints tolerating diabetic diet no abdominal pain, no nausea, no vomiting, no diarrhea passing flatus. Review of Systems General no headache no dizziness no fever chills. CVS no chest pain, no palpitation. Respiratory no cough no sputum production no respiratory distress. Gastrointestinal no nausea no vomiting, no abdominal pain Physical Exam Vital Signs: Vital Signs: Last Vital Signs Temp 99.4 F 07/15/22 08:00 Pulse 82 07/15/22 08:00 Resp 18 07/15/22 08:00 BP 135/79 07/15/22 08:00 Pulse Ox 94 07/15/22 08:00 O2 Del Method 07/15/22 08:00 O2 Flow Rate 2 07/15/22 03:38 BMI result Body Mass Index 35.9 Const: Other: General? awake alert x3, resting comfortably in no acute distress.? Neck? supple no JVD. CVS? regular rate rhythm, Respiratory lungs clear to auscultation, no respiratory distress, no wheeze, no rhonchi. Gastrointestinal abdomen? distended, nontender, no guarding, no rigidity, bowel sounds audible, incision well healed Extremities no? edema. Neuro nonfocal Skin no rash psych appropriate affect Objective Data Active Medications Acetaminophen (Acetaminophen 325 Mg Tablet) 650 mg PO Q6H PRN PRN Reason: fever Last Admin: 07/10/22 19:26 Dose: 650 mg Documented By: HALEY Atorvastatin Calcium (Atorvastatin Calcium 10 Mg Tablet) 10 mg PO DAILY [facility]S AT [facility] Last Admin: 07/15/22 09:17 Dose: 10 mg Documented By: BENNETT Buspirone HCl (Buspirone Hcl 5 Mg Tablet) 5 mg PO DAILY [facility]S AT [facility] Last Admin: 07/15/22 09:17 Dose: 5 mg Documented By: BENNETT Carvedilol (Carvedilol 12.5 Mg Tablet) 12.5 mg PO Q12H [facility] 234 BEDS AT [facility]; Protocol Last Admin: 07/15/22 09:17 Dose: 12.5 mg Documented By: BENNETT Dextrose (Dextrose 50 % 25 Gm/50 Ml Syringe) 25 gm IVPUSH Q15M PRN; Protocol PRN Reason: per Hypoglycemia Standing Ord. Famotidine (Famotidine 20 Mg Tablet) 20 mg PO DAILY [facility] 234 [facility]S [facility] Last Admin: 07/15/22 09:17 Dose: 20 mg Documented By: BENNETT Glucose (Glucose Gel 15 Gm Gel..Gram.) 15 gm PO Q15M PRN; Protocol PRN Reason: per Hypoglycemia Standing Ord. Heparin Sodium (Porcine) (Heparin Sodium,Porcine 5,000 Unit/Ml Vial) 5,000 unit SUBCUT Q8H [facility] 234 [facility]S AT [facility] Last Admin: 07/15/22 09:17 Dose: 5,000 unit Documented By: BENNETT Piperacillin Sod/Tazobactam (Sod 3.375 gm/ Sodium Chloride) 50 mls @ 100 mls/hr IV Q6H [facility] 234 BEDS AT [facility] Last Infusion: 07/15/22 06:07 Dose: 0 mls/hr Documented By: SHERI Ondansetron HCl (Ondansetron Hcl 4 Mg/2 Ml Vial) 4 mg IVPUSH Q6H PRN PRN Reason: Nausea Oxycodone HCl (Oxycodone Hcl Immed Release 5 Mg Tablet) 10 mg PO Q4H PRN PRN Reason: Pain, Moderate (Pain Scale 4-6 Sertraline HCl (Sertraline Hcl 50 Mg Tablet) 150 mg PO BEDTIME [facility] 234 [facility]S [facility] Last Admin: 07/14/22 21:22 Dose: 150 mg Documented By: SHERI Sodium Chloride (0.9 % Sodium Chloride Flush 3 Ml Syringe) 3 ml IVFLUSH QSHIFT [facility] 234 BEDS AT [facility] Last Admin: 07/15/22 09:17 Dose: 3 ml Documented By: BENNETT Trazodone HCl (Trazodone Hcl 50 Mg Tablet) 150 mg PO BEDTIME [facility] 234 B[facility]S AT [facility] Last Admin: 07/14/22 21:22 Dose: 150 mg Documented By: SHERI Labs CBC & Chem 7: 07/11/22 05:44 07/11/22 05:44 Labs: Laboratory Results - last 24 hr 07/14/22 07/14/22 07/14/22 11:23 15:03 19:06 POC Glucose 109 109 129 H 07/15/22 07:59 POC Glucose 102 Microbiology Microbiology Results: Microbiology 07/10/22 04:26 Blood Culture - Final Blood - Venous No growth after 5 days. 07/10/22 04:14 Blood Culture - Final Blood - Venous No growth after 5 days. Assessment and Plan (1) Intra-abdominal abscess: Status: Acute Plan 56-year-old male with past medical history of hypertension, diabetes, sleep apnea on CPAP, with recently diagnosed adenocarcinoma of the appendix when he presented on 03/27 with abdominal pain, at that time CT scan of the abdomen showed acute appendicitis, patient underwent laparoscopic appendectomy with drain placement and right pericolic gutter, he was found to have perforated, necrotic appendicitis, with free fluid in the abdomen with right pericolic abscess.? 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 He was discharged 8 days ago following 4 weeks of TPN and bowel rest and discharged with drain in place. Returned today with abdominal pain x 2 days. We were asked to see pt in management of HTN and diabetes, KYM. # intra-abdominal abscess s/p right colon resection for a T3 N1 adenocarcinoma of the appendix - on IV Zosyn day 5, normal WBC, no fevers, diet advanced to diabetic further management as per General surgery # [id number] type 2 diabetes- blood sugars stable, just started on diabetic diet continue to hold insulin, monitor blood sugar closely # hypertension stable blood pressure continue on Coreg 12.5 mg b.i.d. # KYM using CPAP # depression/mood disorder -continue trazodone and sertraline disposition as per General surgery Quality Stroke Does the patient have a stroke diagnosis?: No VTE Prior VTE?: No VTE Risk Level:: Medical - moderate - high VTE Device Contraindication: N/A - Device Ordered VTE Drug Contraindication: N/A - Med Ordered
[2022-07-15 11:36] LABS: Glucose, Whole Blood 145 mg/dL (60-115)
[2022-07-15 12:00] VITALS: BP 125/79; PULSE 80; RESP 18; TEMP 36.3
--- NOTE | 2022-07-15 13:49 | P.PNGS_ITS ---
Subjective Subjective Date of Service: 07/15/22 <Bertha Fernandez PA-C - Last Filed: 07/15/22 13:52> 07/15/22 <Lit Norton MD - Last Filed: 07/15/22 14:22> Interval history: Feeling better. Denies any pain. Tolerating solid diet. Moving bowels. <YESENIA Wilson Last Filed: 07/15/22 13:52> Physical Exam Vital Signs: Vital Signs: Last Vital Signs Temp 97.4 F 07/15/22 12:00 Pulse 80 07/15/22 12:00 Resp 18 07/15/22 12:00 BP 125/79 07/15/22 12:00 Pulse Ox 94 07/15/22 08:00 O2 Del Method 07/15/22 12:00 O2 Flow Rate 2 07/15/22 03:38 BMI result Body Mass Index 35.9 <YESENIA Wislon Last Filed: 07/15/22 13:52> Const: General: comfortable, no acute distress and alert <Bertha garcia PA-C - Last Filed: 07/15/22 13:52> Orientation/consciousness: patient oriented x3 <YESENIA Wilson Last Filed: 07/15/22 13:52> Resp: Effort & Inspection: normal respiratory effort <YESENIA Wilson Last Filed: 07/15/22 13:52> GI: Other: Bulb with purulent drainage <Bertha Fernandez PA-C - Last Filed: 07/15/22 13:52> Inspection: Yes distended (softly) and Yes incision (clean) <YESENIA Wilson Last Filed: 07/15/22 13:52> Palpation (GI): Soft to palpation, nontender, no guarding and not rigid <YESENIA Wilson Last Filed: 07/15/22 13:52> Percussion: Yes tympanic to percussion <YESENIA Wilson Last Filed: 07/15/22 13:52> Skin: General skin exam: no rashes or lesions noted <YESENIA Wilson Last Filed: 07/15/22 13:52> Neuro: General: patient oriented x3 <Bertha Fernandez PA-C - Last Filed: 07/15/22 13:52> Extrem: General: Yes no clubbing, cyanosis or edema <Bertha Fernandez PA-C - Last Filed: 07/15/22 13:52> Objective Data Active Medications Acetaminophen (Acetaminophen 325 Mg Tablet) 650 mg PO Q6H PRN PRN Reason: fever Last Admin: 07/10/22 19:26 Dose: 650 mg Documented By: HALEY Atorvastatin Calcium (Atorvastatin Calcium 10 Mg Tablet) 10 mg PO DAILY [facility] Last Admin: 07/15/22 09:17 Dose: 10 mg Documented By: BENNETT Buspirone HCl (Buspirone Hcl 5 Mg Tablet) 5 mg PO DAILY [facility] Last Admin: 07/15/22 09:17 Dose: 5 mg Documented By: BENNETT Carvedilol (Carvedilol 12.5 Mg Tablet) 12.5 mg PO Q12H [facility]; Protocol Last Admin: 07/15/22 09:17 Dose: 12.5 mg Documented By: BENNETT Dextrose (Dextrose 50 % 25 Gm/50 Ml Syringe) 25 gm IVPUSH Q15M PRN; Protocol PRN Reason: per Hypoglycemia Standing Ord. Famotidine (Famotidine 20 Mg Tablet) 20 mg PO DAILY [facility] Last Admin: 07/15/22 09:17 Dose: 20 mg Documented By: BENNETT Glucose (Glucose Gel 15 Gm Gel..Gram.) 15 gm PO Q15M PRN; Protocol PRN Reason: per Hypoglycemia Standing Ord. Heparin Sodium (Porcine) (Heparin Sodium,Porcine 5,000 Unit/Ml Vial) 5,000 unit SUBCUT Q8H [facility] Last Admin: 07/15/22 09:17 Dose: 5,000 unit Documented By: BENNETT Piperacillin Sod/Tazobactam (Sod 3.375 gm/ Sodium Chloride) 50 mls @ 100 mls/hr IV Q6H [facility] Last Infusion: 07/15/22 13:38 Dose: 0 mls/hr Documented By: BENNETT Ondansetron HCl (Ondansetron Hcl 4 Mg/2 Ml Vial) 4 mg IVPUSH Q6H PRN PRN Reason: Nausea Oxycodone HCl (Oxycodone Hcl Immed Release 5 Mg Tablet) 10 mg PO Q4H PRN PRN Reason: Pain, Moderate (Pain Scale 4-6 Sertraline HCl (Sertraline Hcl 50 Mg Tablet) 150 mg PO BEDTIME [facility] Last Admin: 07/14/22 21:22 Dose: 150 mg Documented By: SHERI Sodium Chloride (0.9 % Sodium Chloride Flush 3 Ml Syringe) 3 ml IVFLUSH QSHIFT [facility] Last Admin: 07/15/22 09:17 Dose: 3 ml Documented By: BENNETT Trazodone HCl (Trazodone Hcl 50 Mg Tablet) 150 mg PO BEDTIME [facility] Last Admin: 07/14/22 21:22 Dose: 150 mg Documented By: SHERI <Bertha Fernandez PA-C - Last Filed: 07/15/22 13:52> Labs CBC & Chem 7: : 07/11/22 05:44 07/11/22 05:44 <Bertha Fernandez PA-C - Last Filed: 07/15/22 13:52> Labs: Laboratory Results - last 24 hr 07/14/22 07/14/22 07/15/22 15:03 19:06 07:59 POC Glucose 109 129 H 102 07/15/22 11:27 POC Glucose 145 H <Bertha Fernandez PA-C - Last Filed: 07/15/22 13:52> Microbiology Microbiology Results: Microbiology 07/10/22 04:26 Blood Culture - Final Blood - Venous No growth after 5 days. 07/10/22 04:14 Blood Culture - Final Blood - Venous No growth after 5 days. <Bertha Fernandez PA-C - Last Filed: 07/15/22 13:52> Procedures Date of Service Date of Service: 07/15/22 <Bertha Fernandez PA-C - Last Filed: 07/15/22 13:52> Progress Note: A&P Assessment and plan (1) Enterocolitis: Status: Acute <YESENIA Wilson Last Filed: 07/15/22 13:52> Assessment and Plan: Tolerating diet well Denies significant pain Abdomen soft Good BMs and flatus No significant tenderness He had to go home today Will see how he does decide tomorrow Looks well otherwise Will keep drain in place Seen and examined independently - agree with MEHREEN Fernandez <Lit Norton MD - Last Filed: 07/15/22 14:22> Assessment and Plan: 56 year old male with complex course following a 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 He had been doing well at home after discharge but started to have abdominal pain again with a CAT scan showing residual intra-abdominal fluid collection with a djacent small bowel wall thickening, initial fluid collection much improved. Advanced to solid diet which he is tolerating. Remains asymptomatic with benign abdomen. Drain bulb continues with purulent output, keep in place. Cont IV abx. Likely home tomorrow. Patient comfortable with plan. <Bertha Fernandez PA-C - Last Filed: 07/15/22 13:52> Time Spent With Patient Time: Total time spent is greater than 50% in coordination of care (as documented) at patient's floor/unit and/or counseling patient: <Bertha Fernandez PA-C - Last Filed: 07/15/22 13:52> Quality Stroke Does the patient have a stroke diagnosis?: No <Bertha Fernandez PA-C - Last Filed: 07/15/22 13:52> VTE Prior VTE?: No <Bertha Fernandez PA-C - Last Filed: 07/15/22 13:52> VTE Risk Level:: Medical - moderate - high <Bertha Fernandez PA-C - Last Filed: 07/15/22 13:52> VTE Device Contraindication: N/A - Device Ordered <Bertha Fernandez PA-C - Last Filed: 07/15/22 13:52> VTE Drug Contraindication: N/A - Med Ordered <Bertha Fernandez PA-C - Last Filed: 07/15/22 13:52>
[2022-07-15 15:22] VITALS: BP 142/79; PULSE 92; RESP 18; TEMP 36.3; O2SAT 93
[2022-07-15 15:50] LABS: Glucose, Whole Blood 135 mg/dL (60-115)
[2022-07-15 19:55] LABS: Glucose, Whole Blood 125 mg/dL (60-115)
[2022-07-15] MEDS: traZODone HCL 50 MG TABLET 150 MG PO (20:01)
[2022-07-15] MEDS: Sertraline HCL 50 MG TABLET 150 MG PO (20:01)
[2022-07-15 20:06] VITALS: BP 134/73; PULSE 94; RESP 18; TEMP 36.4; O2SAT 93
[2022-07-16 03:48] VITALS: BP 140/77; PULSE 79; RESP 18; TEMP 37.2; O2SAT 95
[2022-07-16] MEDS: Piperacillin Sodium/Tazobactam 3.375 GM in 0.9 % Sodium Chloride 50 ML IV ×2 (06:10→11:25)
[2022-07-16 07:37] LABS: Glucose, Whole Blood 109 mg/dL (60-115)
[2022-07-16 08:00] VITALS: BP 129/81; PULSE 81; RESP 18; TEMP 36.8; O2SAT 96
--- NOTE | 2022-07-16 08:24 | P.PNGS_ITS ---
Subjective Subjective Date of Service: 07/16/22 <Bertha Fernandez PA-C - Last Filed: 07/16/22 08:27> 07/16/22 <Lit Norton MD - Last Filed: 07/16/22 11:52> Interval history: Continues to feel well without any abd pain. Tolerating solid diet. Continues to pass flatus and move bowels. Wants to go home. <Bertha Fernandez PA-C - Last Filed: 07/16/22 08:27> Physical Exam Vital Signs: Vital Signs: Last Vital Signs Temp 98.3 F 07/16/22 08:00 Pulse 81 07/16/22 08:00 Resp 18 07/16/22 08:00 BP 129/81 07/16/22 08:00 Pulse Ox 96 07/16/22 08:00 O2 Del Method 07/16/22 08:00 O2 Flow Rate 2 07/15/22 03:38 BMI result Body Mass Index 35.9 <Bertha Fernandez PA-C - Last Filed: 07/16/22 08:27> Const: General: comfortable, no acute distress and alert <Bertha Fernandez PA-C - Last Filed: 07/16/22 08:27> Orientation/consciousness: patient oriented x3 <Bertha Fernandez PA-C - Last Filed: 07/16/22 08:27> Resp: Effort & Inspection: normal respiratory effort <Bertha Fernandez PA-C - Last Filed: 07/16/22 08:27> GI: Other: Bulb with scanty purulent output, dressing changed <Bertha Fernandez PA-C - Last Filed: 07/16/22 08:27> Inspection: Yes distended (softly) and Yes incision (clean) <YESENIA Wilson Last Filed: 07/16/22 08:27> Palpation (GI): Soft to palpation, nontender, no guarding and not rigid <YESENIA Wilson Last Filed: 07/16/22 08:27> Percussion: Yes tympanic to percussion (decreasing) <ROE Wilson - Last Filed: 07/16/22 08:27> Skin: General skin exam: no rashes or lesions noted <Bertha Fernandez PA-C - Last Filed: 07/16/22 08:27> Neuro: General: patient oriented x3 and moves all extremities <Bertha Fernandez PA-C - Last Filed: 07/16/22 08:27> Objective Data Active Medications Acetaminophen (Acetaminophen 325 Mg Tablet) 650 mg PO Q6H PRN PRN Reason: fever Last Admin: 07/10/22 19:26 Dose: 650 mg Documented By: HALEY Atorvastatin Calcium (Atorvastatin Calcium 10 Mg Tablet) 10 mg PO DAILY [facility] Last Admin: 07/15/22 09:17 Dose: 10 mg Documented By: BENNETT Buspirone HCl (Buspirone Hcl 5 Mg Tablet) 5 mg PO DAILY [facility] Last Admin: 07/15/22 09:17 Dose: 5 mg Documented By: BENNETT Carvedilol (Carvedilol 12.5 Mg Tablet) 12.5 mg PO Q12H [facility]; Protocol Last Admin: 07/15/22 20:01 Dose: 12.5 mg Documented By: HANS Dextrose (Dextrose 50 % 25 Gm/50 Ml Syringe) 25 gm IVPUSH Q15M PRN; Protocol PRN Reason: per Hypoglycemia Standing Ord. Famotidine (Famotidine 20 Mg Tablet) 20 mg PO DAILY [facility] Last Admin: 07/15/22 09:17 Dose: 20 mg Documented By: BENNETT Glucose (Glucose Gel 15 Gm Gel..Gram.) 15 gm PO Q15M PRN; Protocol PRN Reason: per Hypoglycemia Standing Ord. Heparin Sodium (Porcine) (Heparin Sodium,Porcine 5,000 Unit/Ml Vial) 5,000 unit SUBCUT Q8H [facility] Last Admin: 07/15/22 20:06 Dose: Not Given Documented By: HANS Non-Admin Reason: Patient Refused Piperacillin Sod/Tazobactam (Sod 3.375 gm/ Sodium Chloride) 50 mls @ 100 mls/hr IV Q6H [facility] Last Infusion: 07/16/22 06:43 Dose: 0 mls/hr Documented By: HANS Ondansetron HCl (Ondansetron Hcl 4 Mg/2 Ml Vial) 4 mg IVPUSH Q6H PRN PRN Reason: Nausea Oxycodone HCl (Oxycodone Hcl Immed Release 5 Mg Tablet) 10 mg PO Q4H PRN PRN Reason: Pain, Moderate (Pain Scale 4-6 Sertraline HCl (Sertraline Hcl 50 Mg Tablet) 150 mg PO BEDTIME [facility] Last Admin: 07/15/22 20:01 Dose: 150 mg Documented By: HANS Sodium Chloride (0.9 % Sodium Chloride Flush 3 Ml Syringe) 3 ml IVFLUSH QSHIFT [facility] Last Admin: 07/15/22 20:01 Dose: 3 ml Documented By: HANS Trazodone HCl (Trazodone Hcl 50 Mg Tablet) 150 mg PO BEDTIME [facility] Last Admin: 07/15/22 20:01 Dose: 150 mg Documented By: HANS <Bertha Fernandez PA-C - Last Filed: 07/16/22 08:27> Labs CBC & Chem 7: : 07/11/22 05:44 07/11/22 05:44 <Bertha Fernandez PA-C - Last Filed: 07/16/22 08:27> Labs: Laboratory Results - last 24 hr 07/15/22 07/15/22 07/15/22 11:27 15:25 19:34 POC Glucose 145 H 135 H 125 H 07/16/22 07:27 POC Glucose 109 <Bertha Fernandez PA-C - Last Filed: 07/16/22 08:27> Microbiology Microbiology Results: Microbiology 07/10/22 04:26 Blood Culture - Final Blood - Venous No growth after 5 days. 07/10/22 04:14 Blood Culture - Final Blood - Venous No growth after 5 days. <Bertha Fernandez PA-C - Last Filed: 07/16/22 08:27> Procedures Date of Service Date of Service: 07/16/22 <Bertha Fernandez PA-C - Last Filed: 07/16/22 08:27> Progress Note: A&P Assessment and plan (1) Enterocolitis: Status: Acute <YESENIA Wilson Last Filed: 07/16/22 08:27> Assessment and Plan: continues to feel well says he has been ready to go home good oral intake abdomen soft no fever okay to DC clinically doing very well emphasized healthy lifestyle including good diet- his on the states that he does not structures at home and even drinks alcohol I discussed recommendations with the patient times to decrease risk of requir ing any further intervention for his abscess he promises to engage in healthier lifestyle discussed with Emily <Lit Norton MD - Last Filed: 07/16/22 11:52> Assessment and Plan: 56 year old male with complex course following a 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 He had been doing well at home after discharge but started to have abdominal pain again with a CAT scan showing residual intra-abdominal fluid collection with adjacent small bowel wall thickening, initial fluid collection much improved. He remains clinically appearing well and asymptomatic, tolerating solid diet with good GI function. Drain bulb continues with purulent output, keep in place upon discharge. Stable for discharge to home today on PO abx. Patient comfortable with plan. F/u in office with Dr. Norton. 5-6 small meals throughout the day was again encouraged. <Bertha Fernandez PA-C - Last Filed: 07/16/22 08:27> Time Spent With Patient Time: Total time spent is greater than 50% in coordination of care (as documented) at patient's floor/unit and/or counseling patient: <Bertha Fernandez PA-C - Last Filed: 07/16/22 08:27> Quality Stroke Does the patient have a stroke diagnosis?: No <Bertha Fernandez PA-C - Last Filed: 07/16/22 08:27> VTE Prior VTE?: No <Bertha Fernandez PA-C - Last Filed: 07/16/22 08:27> VTE Risk Level:: Medical - moderate - high <Bertha Fernandez PA-C - Last Filed: 07/16/22 08:27> VTE Device Contraindication: N/A - Device Ordered <Bertha Fernandez PA-C - Last Filed: 07/16/22 08:27> VTE Drug Contraindication: N/A - Med Ordered <Bertha Fernandez PA-C - Last Filed: 07/16/22 08:27>
--- NOTE | 2022-07-16 08:32 | MHC.CM.PN ---
PT MEDICALLY CLEARED FOR D/C HOME TO [facility], GF FOR TRANSPORT.
[2022-07-16] MEDS: carvediloL 12.5 MG TABLET PO (08:44)
[2022-07-16] MEDS: Famotidine 20 MG TABLET PO (08:44)
[2022-07-16] MEDS: busPIRone HCl 5 MG TABLET PO (08:44)
[2022-07-16] MEDS: 0.9 % Sodium Chloride Flush 3 ML SYRINGE IVFLUSH (08:45)
[2022-07-16] MEDS: Atorvastatin Calcium 10 MG TABLET PO (08:45)
[2022-07-16 11:43] LABS: Glucose, Whole Blood 114 mg/dL (60-115)
--- NOTE | 2022-07-16 11:43 | P.PNIM_ITS ---
Subjective Subjective Date of Service: 07/16/22 Interval History: offers no acute complaints, tolerated regular diet with no worsening abdominal pain no nausea no vomiting, no diarrhea, no fevers no chills no acute overnight events is excited for discharge blood sugars remain stable 109 this morning. Review of Systems Review of Systems: Yes all other systems are reviewed and are negative Physical Exam Vital Signs: Vital Signs: Last Vital Signs Temp 98.3 F 07/16/22 08:00 Pulse 81 07/16/22 08:00 Resp 18 07/16/22 08:00 BP 129/81 07/16/22 08:00 Pulse Ox 96 07/16/22 08:00 O2 Del Method 07/16/22 08:00 O2 Flow Rate 2 07/15/22 03:38 BMI result Body Mass Index 35.9 Const: Other: General? awake alert x3, resting comfortably in no acute distress.? Neck? supple no JVD. CVS? regular rate rhythm, Respiratory lungs clear to auscultation, no respiratory distress, no wheeze, no rhonchi. Gastrointestinal abdomen? distended, nontender, no guarding, no rigidity, bowel sounds audible, incision well healed Extremities no? edema. Neuro nonfocal Skin no rash psych appropriate affect Objective Data Active Medications Acetaminophen (Acetaminophen 325 Mg Tablet) 650 mg PO Q6H PRN PRN Reason: fever Last Admin: 07/10/22 19:26 Dose: 650 mg Documented By: HALEY Atorvastatin Calcium (Atorvastatin Calcium 10 Mg Tablet) 10 mg PO DAILY [facility] Last Admin: 07/16/22 08:45 Dose: 10 mg Documented By: SELENE Buspirone HCl (Buspirone Hcl 5 Mg Tablet) 5 mg PO DAILY [facility] Last Admin: 07/16/22 08:44 Dose: 5 mg Documented By: SELENE Carvedilol (Carvedilol 12.5 Mg Tablet) 12.5 mg PO Q12H [facility]; Protocol Last Admin: 07/16/22 08:44 Dose: 12.5 mg Documented By: SELENE Dextrose (Dextrose 50 % 25 Gm/50 Ml Syringe) 25 gm IVPUSH Q15M PRN; Protocol PRN Reason: per Hypoglycemia Standing Ord. Famotidine (Famotidine 20 Mg Tablet) 20 mg PO DAILY [facility] Last Admin: 07/16/22 08:44 Dose: 20 mg Documented By: SELENE Glucose (Glucose Gel 15 Gm Gel..Gram.) 15 gm PO Q15M PRN; Protocol PRN Reason: per Hypoglycemia Standing Ord. Heparin Sodium (Porcine) (Heparin Sodium,Porcine 5,000 Unit/Ml Vial) 5,000 unit SUBCUT Q8H [facility] Last Admin: 07/16/22 08:45 Dose: Not Given Documented By: SELENE Non-Admin Reason: Patient Refused Piperacillin Sod/Tazobactam (Sod 3.375 gm/ Sodium Chloride) 50 mls @ 100 mls/hr IV Q6H [facility] Last Admin: 07/16/22 11:25 Dose: 100 mls/hr Documented By: SELENE Ondansetron HCl (Ondansetron Hcl 4 Mg/2 Ml Vial) 4 mg IVPUSH Q6H PRN PRN Reason: Nausea Oxycodone HCl (Oxycodone Hcl Immed Release 5 Mg Tablet) 10 mg PO Q4H PRN PRN Reason: Pain, Moderate (Pain Scale 4-6 Sertraline HCl (Sertraline Hcl 50 Mg Tablet) 150 mg PO BEDTIME [facility] Last Admin: 07/15/22 20:01 Dose: 150 mg Documented By: HANS Sodium Chloride (0.9 % Sodium Chloride Flush 3 Ml Syringe) 3 ml IVFLUSH QSHIFT [facility] Last Admin: 07/16/22 08:45 Dose: 3 ml Documented By: SELENE Trazodone HCl (Trazodone Hcl 50 Mg Tablet) 150 mg PO BEDTIME [facility] Last Admin: 07/15/22 20:01 Dose: 150 mg Documented By: HANS Labs CBC & Chem 7: 07/11/22 05:44 07/11/22 05:44 Labs: Laboratory Results - last 24 hr 07/15/22 07/15/22 07/16/22 15:25 19:34 07:27 POC Glucose 135 H 125 H 109 Assessment and Plan (1) Intra-abdominal abscess: Status: Acute Plan 56-year-old male with past medical history of hypertension, diabetes, sleep apnea on CPAP, with recently diagnosed adenocarcinoma of the appendix when he presented on 03/27 with abdominal pain, at that time CT scan of the abdomen showed acute appendicitis, patient underwent laparoscopic appendectomy with drain placement and right pericolic gutter, he was found to have perforated, necrotic appendicitis, with free fluid in the abdomen with right pericolic abscess.? 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 He was discharged 8 days ago following 4 weeks of TPN and bowel rest and discharged with drain in place. Returned today with abdominal pain x 2 days. We were asked to see pt in management of HTN and diabetes, KYM. # intra-abdominal abscess s/p right colon resection for a T3 N1 adenocarcinoma of the appendix - on IV Zosyn day 6, normal WBC, no fevers, diet advanced to diabetic further antibiotics and management as per General surgery # [id number] type 2 diabetes- blood sugars stable, on diabetic diet , may resume low-dose Trulicity at home # hypertension stable blood pressure continue on Coreg 12.5 mg b.i.d. # KYM using CPAP # depression/mood disorder -continue trazodone and sertraline patient medically stable for discharge disposition as per General surgery Quality Stroke Does the patient have a stroke diagnosis?: No VTE Prior VTE?: No VTE Risk Level:: Medical - moderate - high VTE Device Contraindication: N/A - Device Ordered VTE Drug Contraindication: N/A - Med Ordered
--- NOTE | 2022-07-16 11:59 | P.DS_ITS ---
DS: Providers Provider Date of Service: 07/16/22 Date of admission: 07/10/22 09:06 Date of discharge: 07/16/22 Primary care physician: Daniella Colon MD Attending physician on admission: Lit Errol Consults: 07/10/22 09:15 Consult to Hospitalist Routine Consulting Provider: Hospitalist Reason For Exam: DM, KYM, obesity Attending physician on discharge: iLt Norton DS: Diagnosis Discharge Diagnosis (1) Enterocolitis: Status: Acute DS: Summary Hospital Course Hospital Course: HPI ON DAY OF ADMISSION: Titus Norton is a 56 year old male who is here for abdominal pain. 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 He developed an itnraabdominal abscess with with subsequent CT drainage along with an indwelling pigtail catheter with high output.? This appeared to be consistent with a fistulous connection to the small bowel likely from the anastomosis.? He was therefore in the hospital for 4 weeks because of TPN and bowel rest.? He was eventually discharged with a drain in place last? 07/02/2022.? He had been doing well at home since that time with good oral intake and good bowel movements.? However, 2 days ago, says he felt that he? had eaten a lot on and was lifting heavy objects while trying to have his car fixed.? He developed abdominal pain starting that night mostly on the left side.? He continued to diet with good bowel movements as well as flatus.? He denied any nausea or vomiting.? He denies any fever. ? His pain had? persisted despite taking oxycodone? So he came to the emergency room last night. He says he feels much better now and his pain has improved markedly. CT scan showing residual intra- abdominal fluid collection with adjacent small bowel wall thickening. HOSPITAL COURSE: ?He was admitted to the surgical service for further treatment of enterocolitis. He had good air distally all the way to the rectum. His abdomen was otherwise soft and he had no leukocytosis.? He was started on empiric antibiotics, IVF and bowel rest.?Hospitalist service was consulted for medical management. His CT scan was discussed with radiology and another drainage was not felt necessary as the residual collection was much improved. His drain had purulent output, nonenteric. He had an uncomplicated stay. His abdominal pain resolved and he became asymptomatic. He had 7 days of treatment with IV zosyn. His diet was gradually advanced. He continued to have good GI function during this time. On the day of discharge, he was tolerating a solid diet without abdominal pain, nausea or vomiting and had good GI function. His abdomen remained benign and softly distended. His drain had scanty purulent output and was kept in place. He was discharged on 07/16/22 in stable condition on a 7 day PO course of Augmentin. He was again educated to eat smaller meals through out the day. He is to follow up with Dr. Norton in office in 1-2 weeks. Status at Discharge Functional status at discharge: independent ambulation Overall status at discharge: patient is progressing back to baseline Time Spent with Patient Time attestation: Total time spent providing and/or coordinating discharge services: Discharge coordination time: Greater than 30 minutes Quality: Safe Use of Opioids Does Pt have an Active Cancer Diagnosis on the Problem List?: Yes Opioid Measure Date for [facility] Report: 06/16/22 Opioid Measure Time for [facility] Report: 12:00 Quality: Stroke Does the patient have a stroke diagnosis?: No Physical Exam Vital Signs: Vital Signs: Last Vital Signs Temp 98.3 F 07/16/22 08:00 Pulse 81 07/16/22 08:00 Resp 18 07/16/22 08:00 BP 129/81 07/16/22 08:00 Pulse Ox 96 07/16/22 08:00 O2 Del Method 07/16/22 08:00 O2 Flow Rate 2 07/15/22 03:38 BMI result Body Mass Index 35.9 DS: Data Data Completed and Pending Completed studies during hospitalization [Text1]: Procedures Assistance with Respiratory Ventilation, Less than 24 Consecutive Hours, Continuous Positive Airway Pressure (06/01/22) Control Bleeding in Gastrointestinal Tract, Open Approach (06/01/22) Drainage of Retroperitoneum, Percutaneous Approach (06/01/22) Insertion of Infusion Device into Superior Vena Cava, Percutaneous Approach (06/01/22) Resection of Appendix, Percutaneous Endoscopic Approach (03/27/22) Resection of Right Large Intestine, Open Approach (06/01/22) Ultrasonography of Superior Vena Cava, Guidance (06/01/22) Labs on day of discharge: Laboratory Results - last 24 hr 07/15/22 07/15/22 07/16/22 15:25 19:34 07:27 POC Glucose 135 H 125 H 109 07/16/22 11:38 POC Glucose 114 Discharge Plan Discharge Anticipated Discharge Date/Time: 07/16/22 09:53 Patient Disposition: Home, Self-Care Discharge Diagnosis: enterocolitis abscess Referrals: Daniella Colon MD [Primary Care Provider] - 1 Week Lit Norton MD [Physician] - 1 Week Discharge Medications: New amoxicillin-pot clavulanate [Augmentin] 500-125 mg tablet 1 tab PO BID Qty: 10 0RF Continued oxycodone-acetaminophen [Percocet] 5-325 mg tablet 1 - 2 tab PO Q6H PRN (Reason: pain) Qty: 20 0RF Rx Instructions: Partial Fill upon patient request. sertraline 100 mg tablet 150 mg PO BEDTIME buspirone 5 mg tablet 5 mg PO DAILY Trulicity 3 mg/0.5 mL pen injector 0.5 ml subcut FR cholecalciferol (vitamin D3) 25 mcg (1,000 unit) capsule 25 mcg PO DAILY atorvastatin 10 mg tablet 10 mg PO BEDTIME carvedilol 12.5 mg tablet 12.5 mg PO Q12H trazodone 150 mg tablet 150 mg PO BEDTIME Discharge Orders: Discharge Order (Routine); Ordered 07/16/22 Ordered By: Bertha Fernandez Diet: Diabetic diet Activity on Discharge: No heavy lifting Stand Alone Forms: Patient Portal Discharge page Activity Restrictions/Additional Instructions: Drain care- empty bulb daily and PRN. Record output and appearance. Care Plan Goals: Return to baseline health and gradual return to activity. Resolution of intraabdominal collection and drain removal. Health Concerns: Diabetes mellitus Colon CA S/p right colon resection Intraabdominal abscess Enterocolitis Plan of Treatment: IV abx transitioned to PO abx Bowel rest F/u in office Assessment: Improved
== END 2022-07-16 12:27 | disposition home or self-care (01) | DRG 721 ==
LOC: HO.ED 07:26 → HO.EDOVER 09:16 → HO.S3 17:16
PROVIDERS: Admitting Provider Surgery; Emergency Provider Internal Medicine; PCP Internal Medicine; Visit Provider Surgery
DX: T81.43XA Infection following a procedure, organ and space surgical site, initial encounter (principal); K65.1 Peritoneal abscess; E11.9 Type 2 diabetes mellitus without complications; K52.9 Noninfective gastroenteritis and colitis, unspecified; E66.01 Morbid (severe) obesity due to excess calories; C18.9 Malignant neoplasm of colon, unspecified; Y83.9 Surgical procedure, unspecified as the cause of abnormal reaction of the patient, or of later complication, without mention of misadventure at the time of the procedure; F32.A Depression, unspecified; G47.33 Obstructive sleep apnea (adult) (pediatric); Z68.35 Body mass index [BMI] 35.0-35.9, adult; Z20.822 Contact with and (suspected) exposure to COVID-19; Z88.8 Allergy status to other drugs, medicaments and biological substances; Z79.899 Other long term (current) drug therapy
CPT/HCPCS: 36415; 74177; 80048; 80053; 82947; 83605; 83690; 85025; 85027; 87040; 87635; 99285; J0692; J1170; J2270; J2405; J2543; Q9967

== ENCOUNTER 2022-07-27 07:10 | Day surgery (SDC) | payer MEDICAID, SELFPAY ==
[2022-07-27] VITALS (8 sets, daily range): BP systolic 113–136; BP diastolic 68–96; PULSE 82–96; RESP 16–20; TEMP 36.9–37; O2SAT 93–98; BMI 36.1
--- NOTE | ~2022-07-27 | IR_ITS ---
PROCEDURE: IR INSERTION OF TUNNEL CATHETER CLINICAL INFORMATION: History of colon cancer. Long-term chemotherapy and wires. Needs IV port. COMPARISON: None TECHNIQUE: Following explaining ultrasound and fluoroscopy-guided placement of right central venous port insertion procedure, benefits and risk, a written consent was obtained. Patient was placed supine on angiography table and preliminary ultrasound imaging through the right neck was obtained. An optimal site was selected along the right neck and marked. The marked site was cleaned and draped in usual sterile manner with 2% chlorhexidine solution. 1% lidocaine was administered at puncture site. Under sterile ultrasound guidance a single wall needle was advanced and right jugular vein was punctured. After obtaining venous return a thin guidewire was advanced in SVC and needle withdrawn. A 5 Lao dilator was placed over the guidewire and anchored to the drape. Approximately 1 gauze length from the neck incision along the anterior chest wall 1% lidocaine was administered and a small skin incision was performed and blunt dissection was performed subcutaneously and a pocket was formed. Within the pocket port hardware was inserted and anchored to the skin with 3-0 nonabsorbable nylon sutures. Subsequently 1% lidocaine was administered from the right anterior chest wall incision to the right neck incision. Catheter attached to a tunneler was then blindly tunneled subcutaneously from the right anterior chest wall to the right neck incision and pulled through the neck incision. The catheter was sized appropriately. At the neck the guidewire was removed and a 0.035 J-wire was inserted through the dilator into the IVC and the dilator removed. An 8 Lao peel-away sheath with dilator was inserted over the guidewire and the dilator with the guidewire was removed. The sized catheter was then inserted through the peel-away sheath and held in place as the peel-away sheath was removed. A single image was obtained documenting position of Port-A-Cath tip in the mid SVC. 3-0 absorbable sutures were placed subcutaneously along the right anterior chest wall and along the right neck incision. Steri-Strips were then placed over the chest wall incision and the neck incision. Prior to that the port was accessed and flushed with saline followed by heparin after initially withdrawing blood. IV conscious sedation was administered and patient monitored for 45 minutes by the radiologist and the IR nurse. All elements of maximal sterile barrier technique followed including use of cap, mask, sterile gown, sterile gloves, a sterile full body drape and hand hygiene. Also followed skin preparation with 2% chlorhexidine for cutaneous antisepsis, and sterile ultrasound preparation with sterile gel and probe cover when applicable. FINDINGS: On preliminary ultrasound imaging there is a widely patent large jugular vein. Approximately 20 cm long 6.6 Lao right port insertion performed with the hardware overlying the right anterolateral chest wall. There were no immediate complications. 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 Fluoroscopy time: 0.4 minutes. DAP: 337 cGy-cm2.
[2022-07-27 07:37] LABS: MANUAL DIFF FLAG NO
[2022-07-27 07:46] LABS: Basophils Percent Auto 0.5 % (0-2); Eosinophils Absolute Auto 0.1 X10*3/uL (0.0-0.4); Eosinophils Percent Auto 1.6 % (0-4); Hematocrit 32.8 % (42.0-52.0); Hemoglobin 9.7 g/dl (14.0-18.0); Imm Gran Abs Auto 0.02 X10*3/uL (0.00-0.03); Imm Gran Pct Auto 0.3 % (0.0-0.4); Lymphocytes Absolute Auto 1.4 X10*3/uL (1.2-4.9); Lymphocytes Percent Auto 22.2 % (20-40); Mean Corpuscular HGB Conc 29.6 g/dl (31.0-36.0); Mean Corpuscular Hemoglobin 26.2 pg (27.0-33.0); Mean Corpuscular Volume 88.6 fL (80.0-98.0); Monocytes Absolute Auto 0.5 X10*3/uL (0.1-1.2); Monocytes Percent Auto 7.4 % (2-11); Neutrophils Absolute Auto 4.2 x10*3/uL (2.0-8.3); Platelet Count 208 X10*3/uL (160-400); Red Cell Distribution Width 14.6 % (11.0-16.0); White Blood Count 6.2 X10*3/uL (4.8-10.8)
[2022-07-27 07:53] LABS: INTERNATIONAL NORM RATIO 1.1 (0.9-1.1); Prothrombin Time 12.4 SEC (10.0-13.1)
[2022-07-27 07:56] LABS: Partial Thromboplastin Time 28.7 SEC (26.0-36.4)
[2022-07-27 07:59] LABS: Glucose, Whole Blood 113 mg/dL (60-115)
[2022-07-27] MEDS: Lidocaine HCl 1 % MPF 30 ML VIAL 10 ML SUBCUT (09:46)
== END 2022-07-27 13:32 | disposition home or self-care (01) ==
PROVIDERS: Radiology Diagnostic Radiology; PCP Internal Medicine; Visit Provider Internal Medicine
DX: C18.9 Malignant neoplasm of colon, unspecified (principal); E11.21 Type 2 diabetes mellitus with diabetic nephropathy; E78.5 Hyperlipidemia, unspecified; I10 Essential (primary) hypertension; G47.33 Obstructive sleep apnea (adult) (pediatric); E66.01 Morbid (severe) obesity due to excess calories; Z68.35 Body mass index [BMI] 35.0-35.9, adult; Z79.899 Other long term (current) drug therapy; Z79.85 Long-term (current) use of injectable non-insulin antidiabetic drugs; Z88.8 Allergy status to other drugs, medicaments and biological substances; Z99.89 Dependence on other enabling machines and devices
CPT/HCPCS: 36415; 36561; 82947; 85025; 85610; 85730; 99152; 99153; C1769; C1788; J0690; J1642; J2250; J3010

== ENCOUNTER 2022-08-01 20:12 | Inpatient (IN) | payer MEDICAID, SELFPAY ==
--- NOTE | ~2022-08-01 | CT_ITS ---
EXAMINATION: CT ABDOMEN AND PELVIS WITH CONTRAST CLINICAL INFORMATION: Abdominal abscess COMPARISON: 07/10/2022 TECHNIQUE: Multidetector volumetric images were obtained from the superior aspect of the liver through the pubic symphysis following administration 85 mL of Omnipaque 350 intravenous contrast. Sagittal and coronal reformatted images were obtained on the technologist's workstation. Oral contrast: No This CT examination was performed using dose optimization techniques as appropriate, variously including the following: *Automated exposure control *Adjustment of mA and/or kV according to patient size (this includes techniques or standardized protocols for targeted exams where dose is matched to indication/reason for exam; i.e. extremities or head) *Use of iterative reconstruction technique DLP: 809 mGy-cm FINDINGS: LUNG BASES: The visualized lung bases are unremarkable. The right hemidiaphragm is elevated LIVER, GALLBLADDER, AND BILIARY TREE: The liver is enlarged measuring 20.6 cm in cephalocaudad dimension. There is a hypoattenuating mass seen just beneath the dome of the right hemidiaphragm measuring 3.1 x 3.4 x 3.2 cm (3:10). This is new when compared to the prior study. No other focal hepatic lesion or biliary ductal dilatation is present. The gallbladder is contracted but otherwise unremarkable with no evidence of radiopaque gallstones, gallbladder wall thickening, or obvious pericholecystic inflammatory changes. PANCREAS: Unremarkable. SPLEEN: Mild splenomegaly at 12.9 cm. ADRENAL GLANDS: Unremarkable. KIDNEYS AND URETERS: The kidneys are normal in size, shape, and attenuation. No hydronephrosis, hydroureter, or calculi seen. No perinephric stranding. BLADDER: Unremarkable. RETROPERITONEUM: Previously seen drainage catheter in the right abdomen is no longer present. Chest beneath the abdominal wall, there is a residual small abscess cavity present measuring 13.7 x 3.1 x 2.2 cm (3:51). This is fairly similar in size when compared to the prior study. Bowel abuts this collection but because of the way this study was done, a fistulous connection cannot be diagnosed. GASTROINTESTINAL TRACT: There is been partial right colectomy. The remaining colon is unremarkable. The stomach and small bowel are unremarkable. ABDOMINAL WALL: No significant hernia is appreciated. LYMPH NODES: No retroperitoneal lymphadenopathy. VASCULAR: Unremarkable. PELVIC VISCERA: Mild BPH. Seminal vesicles appear normal. OSSEOUS STRUCTURES: Mild degenerative changes in the spine most marked at L5-S1. CT/CT abdomen pelvis w IV con IMPRESSION: 1. There is a new 3.4 cm mass in the right lobe of the liver just beneath the dome of the hemidiaphragm. This is worrisome for a hepatic abscess. 2. There is a residual abscess cavity beneath the right abdominal wall measuring 13.7 x 3.1 x 2.2 cm. 3. Other incidental findings as described above. Fleischner guidelines were followed.
[2022-08-01 20:14] VITALS: PULSE 95; RESP 18; TEMP 36.7; O2SAT 93; BMI 35.9
--- NOTE | 2022-08-01 20:17 | ED_ITS ---
HPI - General Adult General Chief complaint: General Medical <MEHREEN Acevedo - Last Filed: 08/01/22 20:22> Stated complaint: infection <MEHREEN Acevedo - Last Filed: 08/01/22 20:22> Time Seen by Provider: 08/01/22 21:13 <MEHREEN Acevedo - Last Filed: 08/01/22 20:22> Source: patient <Beatriz Flynn MD - Last Filed: 08/01/22 22:43> Mode of arrival: ambulatory <Beatriz Flynn MD - Last Filed: 08/01/22 22:43> History of Present Illness HPI narrative: 56-year-old male with history of diabetes and colon CA presents with increasing redness and pain as well as noted purulence drainage from the right lower abdominal wall after drain removal from ostomy closure. Patient reports concomitant chills but otherwise states that he is been doing well. <Beatriz Flynn MD - Last Filed: 08/01/22 22:43> Related Data Home medications: Home Medications Medication Instructions Recorded Confirmed atorvastatin 10 mg tablet 10 mg PO BEDTIME 10/22/20 07/19/22 carvedilol 12.5 mg tablet 12.5 mg PO Q12H 10/22/20 07/19/22 cholecalciferol (vitamin D3) 25 25 mcg PO DAILY 10/22/20 07/19/22 mcg (1,000 unit) capsule trazodone 150 mg tablet 150 mg PO BEDTIME 11/04/20 07/19/22 buspirone 5 mg tablet 5 mg PO DAILY 01/04/22 07/19/22 sertraline 100 mg tablet 150 mg PO BEDTIME 01/04/22 07/19/22 dulaglutide 3 mg/0.5 mL 0.5 ml subcut FR 07/10/22 07/19/22 subcutaneous pen injector (Trulicity) Previous Rx's Medication Instructions Recorded oxycodone-acetaminophen 5 mg-325 1 - 2 tab PO Q6H PRN pain #20 tabs 07/09/22 mg tablet (Percocet) dexamethasone 4 mg tablet 4 mg PO BID #30 tabs 07/29/22 ondansetron 8 mg disintegrating 8 mg PO Q8H PRN Nausea #30 tabs 07/29/22 tablet <MEHREEN Acevedo - Last Filed: 08/01/22 20:22> Allergies/adverse reactions: Allergies Allergy/AdvReac Type Severity Reaction Status Date / Time lisinopril [LISINOPRIL] Allergy Mild RASH Verified 07/27/22 07:56 <MEHREEN Acevedo - Last Filed: 08/01/22 20:22> Review of Systems Review of Systems: Pertinent positives and negatives as stated in HPI 10 point review of systems is otherwise negative. <Beatriz Flynn MD - Last Filed: 08/01/22 22:43> [facility] Past Medical History Source: nursing notes reviewed <Beatriz Flynn MD - Last Filed: 08/01/22 22:43> Medical History: Medical History Ambulates with cane Back pain due to injury Diabetes type 2, controlled Diabetic nephropathy associated with type 2 diabetes mellitus Dyslipidemia Epidermal cyst Eye inflammation HTN (hypertension) Morbid obesity Obesity (BMI 30-39.9) Sleep apnea Umbilical hernia <MEHREEN Acevedo - Last Filed: 08/01/22 20:22> Surgical History: Surgical History H/O colonoscopy History of umbilical hernia repair (~01/08/22) Hx of removal of cyst S/P appendectomy <MEHREEN Acevedo - Last Filed: 08/01/22 20:22> Family History Family History: Family History Father Diabetes Heart disease Mother Diabetes Heart disease Other No family history of cancer <MEHREEN Acevedo - Last Filed: 08/01/22 20:22> Social History Social History: Social History Household Members: Spouse Housing: Condominium Are you a primary care program director to a significant other at home: No Do you presently have visiting nurse or other home services: No Alcohol intake: never Patient Tobacco Use Status: Never used Tobacco Smoked in Last 30 Days: No Use of substances other than those prescribed or required for medical reasons: No Advance Directives: No Advance Directives Information Provided: No service: No Current occupational status: disabled <MEHREEN Acevedo - Last Filed: 08/01/22 20:22> Physical Exam ED Vital Signs: Vital Signs - 24 hr 08/01/22 20:14 08/01/22 21:45 Temperature 98.1 F 98.9 F Pulse Rate 95 95 Respiratory Rate 18 18 Blood Pressure 137/77 Pulse Oximetry 93 95 Oxygen Delivery Method Room Air Room Air BMI result Body Mass Index 35.9 <MEHREEN Acevedo - Last Filed: 08/01/22 20:22> Vital Signs - 24 hr 08/01/22 20:14 08/01/22 21:45 Temperature 98.1 F 98.9 F Pulse Rate 95 95 Respiratory Rate 18 18 Blood Pressure 137/77 Pulse Oximetry 93 95 Oxygen Delivery Method Room Air Room Air BMI result Body Mass Index 35.9 VITAL SIGNS: Reviewed. GENERAL: Well developed, well nourished, in no acute distress. HEAD: Normocephalic/atraumatic EYES: PERRLA, EOMI EARS: Ext canals without abnormality OROPHARYNX: no oral lesions noted, posterior pharynx clear LUNGS: Normal breath sounds. No adventitious sounds or accessory muscle use. SpO2<93> CARDIOVASCULAR: Regular rate and rhythm without noted murmurs, no JVD or lower extremity edema. ABDOMEN: Soft, mild superficial tenderness at the right lower quadrant where there is a noted 16 cm x 16 cm erythematous area with significant induration that encompasses an approximate 8 cm x 8 cm with an opening that has purulence drainage, non-distended with bowel sounds. MUSCULOSKELETAL: No tenderness, deformities, or effusions noted on gross inspection. EXTREMITIES: No cyanosis, clubbing or edema. SKIN: Inspection of the skin reveals no rashes NEUROLOGIC: Alert and oriented x 4. Strength and sensation to light touch were grossly intact x 4. <Beatriz Flynn MD - Last Filed: 08/01/22 22:43> Course Course Course Narrative: RME- 20:18PM - 56yoM c PMHx of HTN, DM, sleep apnea on CPAP, with recently diagnosed adenocarcinoma of the appendix when he presented on 03/27 with abdominal pain, at that time CT scan of the abdomen showed acute appendicitis, patient underwent laparoscopic appendectomy with drain placement and right pericolic gutter, he was found to have perforated, necrotic appendicitis, with free fluid in the abdomen with right pericolic abscess.? 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 He was discharged 8 days ago following 4 weeks of TPN and bowel rest and discharged with drain in place. Although he had his drain removed 07/26/2022 and now he is having redness and purulent drainage from that site and low-grade fevers of 99.5 that started yesterday worse today. Plan: Labs, blood cultures, lactic acid, COVID/RSV/flu swab, CT scan abdomen pelvis with IV contrast. Patient is stable to go back to the waiting room to be evaluated in the ED. <MEHREEN Acevedo - Last Filed: 08/01/22 20:22> RME- 20:18PM - 56yoM c PMHx of HTN, DM, sleep apnea on CPAP, with recently diagnosed adenocarcinoma of the appendix when he presented on 03/27 with abdominal pain, at that time CT scan of the abdomen showed acute appendicitis, patient underwent laparoscopic appendectomy with drain placement and right pericolic gutter, he was found to have perforated, necrotic appendicitis, with free fluid in the abdomen with right pericolic abscess.? 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 He was discharged 8 days ago following 4 weeks of TPN and bowel rest and discharged with drain in place. Although he had his drain removed 07/26/2022 and now he is having redness and purulent drainage from that site and low-grade fevers of 99.5 that started yesterday worse today. Plan: Labs, blood cultures, lactic acid, COVID/RSV/flu swab, CT scan abdomen pelvis with IV contrast. Patient is stable to go back to the waiting room to be evaluated in the ED. 56-year-old male with history and clinical presentation consistent with suspected abdominal wall abscess/infection, patient is hemodynamically stable, there is no leukocytosis and patient is afebrile, however there is purulence drainage with significant induration noted at the right lower quadrant and erythematous area that covers approximately 16 cm x 16 cm. I have reviewed all lab work and imaging studies. <Beatriz Flynn MD - Last Filed: 08/01/22 22:43> Reevaluation(s) Reevaluation #1: Consulted general surgery who recommends admission for IV antibiotics. Dr. Norton accepts admission. <Beatriz Flynn MD - Last Filed: 08/01/22 22:43> Time: 22:21 <Beatriz Flynn MD - Last Filed: 08/01/22 22:43> Medications Administered Discontinued Medications Generic Name Dose Route Start Last Admin Trade Name Freq PRN Reason Stop Dose Admin Piperacillin Sod/Tazobactam 50 mls @ 100 mls/hr 08/01/22 21:35 08/01/22 22:08 Sod 3.375 gm/ Sodium Chloride IV 08/01/22 22:04 100 mls/hr ONCE ONE Administration Iohexol 100 ml 08/01/22 22:19 08/01/22 22:20 Iohexol 350 Mg/Ml 100 Ml Infus..Btl IV 08/01/22 22:20 85 ml ONCE ONE Administration <MEHREEN Acevedo - Last Filed: 08/01/22 20:22> Medications Administered Discontinued Medications Generic Name Dose Route Start Last Admin Trade Name Freq PRN Reason Stop Dose Admin Piperacillin Sod/Tazobactam 50 mls @ 100 mls/hr 08/01/22 21:35 08/01/22 22:08 Sod 3.375 gm/ Sodium Chloride IV 08/01/22 22:04 100 mls/hr ONCE ONE Administration Iohexol 100 ml 08/01/22 22:19 08/01/22 22:20 Iohexol 350 Mg/Ml 100 Ml Infus..Btl IV 08/01/22 22:20 85 ml ONCE ONE Administration <Beatriz Flynn MD - Last Filed: 08/01/22 22:43> Medical Decision Making Lab Data Result Diagrams: : 08/01/22 20:44 08/01/22 20:44 <MEHREEN Acevedo - Last Filed: 08/01/22 20:22> Labs: Lab Results 08/01/22 08/01/22 08/01/22 Range/Units 20:44 20:44 20:44 WBC 6.1 (4.8-10.8) X10*3/uL RBC 3.64 L (4.60-5.80) X10*6/uL Hgb 9.4 L (14.0-18.0) g/dl Hct 31.0 L (42.0-52.0) % MCV 85.2 (80.0-98.0) fL MCH 25.8 L (27.0-33.0) pg MCHC 30.3 L (31.0-36.0) g/dl RDW 14.2 (11.0-16.0) % Plt Count 163 (160-400) X10*3/uL MPV 10.6 (9.4-12.4) fL Immature Gran % (Auto) 0.2 (0.0-0.4) % Neut % (Auto) 64.5 (45-73) % Lymph % (Auto) 23.8 (20-40) % Coleman % (Auto) 8.4 (2-11) % Eos % (Auto) 2.8 (0-4) % Baso % (Auto) 0.3 (0-2) % Lymph # (Auto) 1.4 (1.2-4.9) X10*3/uL Coleman # (Auto) 0.5 (0.1-1.2) X10*3/uL Eos # (Auto) 0.2 (0.0-0.4) X10*3/uL Baso # (Auto) 0.0 (0.0-0.2) X10*3/uL Abs Immat Gran (auto) 0.01 (0.00-0.03) X10*3/uL Absolute Neuts (auto) 3.9 (2.0-8.3) x10*3/uL Absolute Nucleated RBC 0.000 (0.0-0.012) X10*3/uL Nucleated RBC % (auto) 0.0 (0.0-0.2) /100WBC PT 13.5 H (10.0-13.1) SEC INR 1.2 H (0.9-1.1) Sodium 141 (135-145) mmol/L Potassium 4.1 (3.3-5.1) mmol/L Chloride 102 (96-108) mmol/L Carbon Dioxide 31 H (22-29) mmol/L Anion Gap 12 (12-20) BUN 7 L (9-16) mg/dL Creatinine 0.82 (0.5-1.4) mg/dL Estim Creat Clear Calc 126.8 Estimated GFR > 60 Random Glucose 117 H (60-115) mg/dL Lactic Acid (0.5-2.0) mmol/L Calcium 8.7 (8.4-10.2) mg/dL Magnesium 1.6 (1.6-2.6) mg/dL Total Bilirubin 0.3 (0.0-1.0) mg/dL AST 12 (5-37) U/L ALT 8 (0-40) U/L Alkaline Phosphatase 64 (39-117) U/L Total Protein 6.5 (6.5-8.0) g/dL Albumin 3.4 L (3.5-5.0) g/dL Urine Color Urine Appearance Urine pH (5.0-9.0) Ur Specific [place] (1.005-1.025) Urine Protein (Neg-Trace) mg/dL Urine Glucose (UA) (Negative) mg/dL Urine Ketones (Negative) mg/dL Urine Blood (Negative) Urine Nitrite (Negative) Ur Leukocyte Esterase (Negative) Influenza Type A (PCR) (Negative) Influenza Type B (PCR) (Negative) RSV RNA Qual (PCR) (Negative) SARS-CoV-2 RNA (RT-PCR) (Negative) 08/01/22 08/01/22 08/01/22 Range/Units 20:44 20:45 21:47 WBC (4.8-10.8) X10*3/uL RBC (4.60-5.80) X10*6/uL Hgb (14.0-18.0) g/dl Hct (42.0-52.0) % MCV (80.0-98.0) fL MCH (27.0-33.0) pg MCHC (31.0-36.0) g/dl RDW (11.0-16.0) % Plt Count (160-400) X10*3/uL MPV (9.4-12.4) fL Immature Gran % (Auto) (0.0-0.4) % Neut % (Auto) (45-73) % Lymph % (Auto) (20-40) % Coleman % (Auto) (2-11) % Eos % (Auto) (0-4) % Baso % (Auto) (0-2) % Lymph # (Auto) (1.2-4.9) X10*3/uL Coleman # (Auto) (0.1-1.2) X10*3/uL Eos # (Auto) (0.0-0.4) X10*3/uL Baso # (Auto) (0.0-0.2) X10*3/uL Abs Immat Gran (auto) (0.00-0.03) X10*3/uL Absolute Neuts (auto) (2.0-8.3) x10*3/uL Absolute Nucleated RBC (0.0-0.012) X10*3/uL Nucleated RBC % (auto) (0.0-0.2) /100WBC PT (10.0-13.1) SEC INR (0.9-1.1) Sodium (135-145) mmol/L Potassium (3.3-5.1) mmol/L Chloride (96-108) mmol/L Carbon Dioxide (22-29) mmol/L Anion Gap (12-20) BUN (9-16) mg/dL Creatinine (0.5-1.4) mg/dL Estim Creat Clear Calc Estimated GFR Random Glucose (60-115) mg/dL Lactic Acid 1.1 (0.5-2.0) mmol/L Calcium (8.4-10.2) mg/dL Magnesium (1.6-2.6) mg/dL Total Bilirubin (0.0-1.0) mg/dL AST (5-37) U/L ALT (0-40) U/L Alkaline Phosphatase (39-117) U/L Total Protein (6.5-8.0) g/dL Albumin (3.5-5.0) g/dL Urine Color Yellow Urine Appearance Clear Urine pH 6.5 (5.0-9.0) Ur Specific [place] 1.020 (1.005-1.025) Urine Protein Negative (Neg-Trace) mg/dL Urine Glucose (UA) Negative (Negative) mg/dL Urine Ketones Negative (Negative) mg/dL Urine Blood Negative (Negative) Urine Nitrite Negative (Negative) Ur Leukocyte Esterase Negative (Negative) Influenza Type A (PCR) NEGATIVE (Negative) Influenza Type B (PCR) NEGATIVE (Negative) RSV RNA Qual (PCR) NEGATIVE (Negative) SARS-CoV-2 RNA (RT-PCR) NEGATIVE (Negative) <MEHREEN Acevedo - Last Filed: 08/01/22 20:22> Lab Results 08/01/22 08/01/22 08/01/22 Range/Units 20:44 20:44 20:44 WBC 6.1 (4.8-10.8) X10*3/uL RBC 3.64 L (4.60-5.80) X10*6/uL Hgb 9.4 L (14.0-18.0) g/dl Hct 31.0 L (42.0-52.0) % MCV 85.2 (80.0-98.0) fL MCH 25.8 L (27.0-33.0) pg MCHC 30.3 L (31.0-36.0) g/dl RDW 14.2 (11.0-16.0) % Plt Count 163 (160-400) X10*3/uL MPV 10.6 (9.4-12.4) fL Immature Gran % (Auto) 0.2 (0.0-0.4) % Neut % (Auto) 64.5 (45-73) % Lymph % (Auto) 23.8 (20-40) % Coleman % (Auto) 8.4 (2-11) % Eos % (Auto) 2.8 (0-4) % Baso % (Auto) 0.3 (0-2) % Lymph # (Auto) 1.4 (1.2-4.9) X10*3/uL Coleman # (Auto) 0.5 (0.1-1.2) X10*3/uL Eos # (Auto) 0.2 (0.0-0.4) X10*3/uL Baso # (Auto) 0.0 (0.0-0.2) X10*3/uL Abs Immat Gran (auto) 0.01 (0.00-0.03) X10*3/uL Absolute Neuts (auto) 3.9 (2.0-8.3) x10*3/uL Absolute Nucleated RBC 0.000 (0.0-0.012) X10*3/uL Nucleated RBC % (auto) 0.0 (0.0-0.2) /100WBC PT 13.5 H (10.0-13.1) SEC INR 1.2 H (0.9-1.1) Sodium 141 (135-145) mmol/L Potassium 4.1 (3.3-5.1) mmol/L Chloride 102 (96-108) mmol/L Carbon Dioxide 31 H (22-29) mmol/L Anion Gap 12 (12-20) BUN 7 L (9-16) mg/dL Creatinine 0.82 (0.5-1.4) mg/dL Estim Creat Clear Calc 126.8 Estimated GFR > 60 Random Glucose 117 H (60-115) mg/dL Lactic Acid (0.5-2.0) mmol/L Calcium 8.7 (8.4-10.2) mg/dL Magnesium 1.6 (1.6-2.6) mg/dL Total Bilirubin 0.3 (0.0-1.0) mg/dL AST 12 (5-37) U/L ALT 8 (0-40) U/L Alkaline Phosphatase 64 (39-117) U/L Total Protein 6.5 (6.5-8.0) g/dL Albumin 3.4 L (3.5-5.0) g/dL Urine Color Urine Appearance Urine pH (5.0-9.0) Ur Specific [place] (1.005-1.025) Urine Protein (Neg-Trace) mg/dL Urine Glucose (UA) (Negative) mg/dL Urine Ketones (Negative) mg/dL Urine Blood (Negative) Urine Nitrite (Negative) Ur Leukocyte Esterase (Negative) Influenza Type A (PCR) (Negative) Influenza Type B (PCR) (Negative) RSV RNA Qual (PCR) (Negative) SARS-CoV-2 RNA (RT-PCR) (Negative) 08/01/22 08/01/22 08/01/22 Range/Units 20:44 20:45 21:47 WBC (4.8-10.8) X10*3/uL RBC (4.60-5.80) X10*6/uL Hgb (14.0-18.0) g/dl Hct (42.0-52.0) % MCV (80.0-98.0) fL MCH (27.0-33.0) pg MCHC (31.0-36.0) g/dl RDW (11.0-16.0) % Plt Count (160-400) X10*3/uL MPV (9.4-12.4) fL Immature Gran % (Auto) (0.0-0.4) % Neut % (Auto) (45-73) % Lymph % (Auto) (20-40) % Coleman % (Auto) (2-11) % Eos % (Auto) (0-4) % Baso % (Auto) (0-2) % Lymph # (Auto) (1.2-4.9) X10*3/uL Coleman # (Auto) (0.1-1.2) X10*3/uL Eos # (Auto) (0.0-0.4) X10*3/uL Baso # (Auto) (0.0-0.2) X10*3/uL Abs Immat Gran (auto) (0.00-0.03) X10*3/uL Absolute Neuts (auto) (2.0-8.3) x10*3/uL Absolute Nucleated RBC (0.0-0.012) X10*3/uL Nucleated RBC % (auto) (0.0-0.2) /100WBC PT (10.0-13.1) SEC INR (0.9-1.1) Sodium (135-145) mmol/L Potassium (3.3-5.1) mmol/L Chloride (96-108) mmol/L Carbon Dioxide (22-29) mmol/L Anion Gap (12-20) BUN (9-16) mg/dL Creatinine (0.5-1.4) mg/dL Estim Creat Clear Calc Estimated GFR Random Glucose (60-115) mg/dL Lactic Acid 1.1 (0.5-2.0) mmol/L Calcium (8.4-10.2) mg/dL Magnesium (1.6-2.6) mg/dL Total Bilirubin (0.0-1.0) mg/dL AST (5-37) U/L ALT (0-40) U/L Alkaline Phosphatase (39-117) U/L Total Protein (6.5-8.0) g/dL Albumin (3.5-5.0) g/dL Urine Color Yellow Urine Appearance Clear Urine pH 6.5 (5.0-9.0) Ur Specific [place] 1.020 (1.005-1.025) Urine Protein Negative (Neg-Trace) mg/dL Urine Glucose (UA) Negative (Negative) mg/dL Urine Ketones Negative (Negative) mg/dL Urine Blood Negative (Negative) Urine Nitrite Negative (Negative) Ur Leukocyte Esterase Negative (Negative) Influenza Type A (PCR) NEGATIVE (Negative) Influenza Type B (PCR) NEGATIVE (Negative) RSV RNA Qual (PCR) NEGATIVE (Negative) SARS-CoV-2 RNA (RT-PCR) NEGATIVE (Negative) <Beatriz Flynn MD - Last Filed: 08/01/22 22:43> Critical Care Time Critical Care Time Critical Care Time: Yes <Beatriz Flynn MD - Last Filed: 08/01/22 22:43> Total Critical Care Time: 30 <Beatriz Flynn MD - Last Filed: 08/01/22 22:43> Attestation: I personally attest to this time spent taking care of the patient. <Beatriz Flynn MD - Last Filed: 08/01/22 22:43> Discharge Plan Discharge Clinical Impression: Abdominal wall cellulitis <MEHREEN Acevedo - Last Filed: 08/01/22 20:22> Patient Disposition: Admitted As Inpatient <MEHREEN Acevedo - Last Filed: 08/01/22 20:22> Prescriptions: No Action oxycodone-acetaminophen [Percocet] 5-325 mg tablet 1 - 2 tab PO Q6H PRN (Reason: pain) Qty: 20 0RF Rx Instructions: Partial Fill upon patient request. sertraline 100 mg tablet 150 mg PO BEDTIME buspirone 5 mg tablet 5 mg PO DAILY Trulicity 3 mg/0.5 mL pen injector 0.5 ml subcut FR ondansetron 8 mg Tablet,Disintegrating 8 mg PO Q8H PRN (Reason: Nausea) Qty: 30 3RF dexamethasone 4 mg Tablet 4 mg PO BID Qty: 30 3RF Rx Instructions: take for 2 days after chemo cholecalciferol (vitamin D3) 25 mcg (1,000 unit) capsule 25 mcg PO DAILY atorvastatin 10 mg tablet 10 mg PO BEDTIME carvedilol 12.5 mg tablet 12.5 mg PO Q12H trazodone 150 mg tablet 150 mg PO BEDTIME <MEHREEN Acevedo - Last Filed: 08/01/22 20:22>
[2022-08-01 20:52] LABS: MANUAL DIFF FLAG NO
[2022-08-01 20:55] LABS: Basophils Percent Auto 0.3 % (0-2); Eosinophils Absolute Auto 0.2 X10*3/uL (0.0-0.4); Eosinophils Percent Auto 2.8 % (0-4); Hemoglobin 9.4 g/dl (14.0-18.0); Imm Gran Abs Auto 0.01 X10*3/uL (0.00-0.03); Imm Gran Pct Auto 0.2 % (0.0-0.4); Lymphocytes Absolute Auto 1.4 X10*3/uL (1.2-4.9); Lymphocytes Percent Auto 23.8 % (20-40); Mean Corpuscular HGB Conc 30.3 g/dl (31.0-36.0); Mean Corpuscular Hemoglobin 25.8 pg (27.0-33.0); Mean Corpuscular Volume 85.2 fL (80.0-98.0); Mean Platelet Volume 10.6 fL (9.4-12.4); Monocytes Absolute Auto 0.5 X10*3/uL (0.1-1.2); Monocytes Percent Auto 8.4 % (2-11); Neutrophils Absolute Auto 3.9 x10*3/uL (2.0-8.3); Neutrophils Percent Auto 64.5 % (45-73); Platelet Count 163 X10*3/uL (160-400); Red Blood Count 3.64 X10*6/uL (4.60-5.80); Red Cell Distribution Width 14.2 % (11.0-16.0); White Blood Count 6.1 X10*3/uL (4.8-10.8)
[2022-08-01 21:01] LABS: INTERNATIONAL NORM RATIO 1.2 (0.9-1.1); Prothrombin Time 13.5 SEC (10.0-13.1)
[2022-08-01 21:08] LABS: Lactic Acid 1.1 mmol/L (0.5-2.0)
[2022-08-01 21:10] LABS: Alanine Aminotransferase 8 U/L (0-40); Albumin Level 3.4 g/dL (3.5-5.0); Alkaline Phosphatase 64 U/L (39-117); Anion Gap 12 (12-20); Aspartate Amino Transferase 12 U/L (5-37); Bilirubin Total 0.3 mg/dL (0.0-1.0); Blood Urea Nitrogen 7 mg/dL (9-16); Calcium 8.7 mg/dL (8.4-10.2); Carbon Dioxide 31 mmol/L (22-29); Chloride 102 mmol/L (96-108); Creatinine Clr Calc Pharmacy 126.8; Estimated Glomerular Filt Rate > 60; Glucose Random 117 mg/dL (60-115); Magnesium 1.6 mg/dL (1.6-2.6); Potassium 4.1 mmol/L (3.3-5.1); Sodium 141 mmol/L (135-145); Total Protein 6.5 g/dL (6.5-8.0)
--- NOTE | 2022-08-01 21:32 | PC.NURSE ---
Pt presented to ER with redness, pain, and swelling around an incision site on his right lower abdomen. Labs were drawin in triage. IV inserted in the room and cultures drawn. Upon inspection, site is raised and draining puss. Dr Flynn at bedside inspected the wound. I applied a bandage and secured it. Pt waiting CT at this time.
[2022-08-01 21:33] LABS: Influenza A PCR NEGATIVE (Negative); Influenza B PCR NEGATIVE (Negative); Resp Syncy Virus RNA Qual PCR NEGATIVE (Negative); SARS COV2 PCR INHOUSE NEGATIVE (Negative)
[2022-08-01 21:45] VITALS: BP 137/77; PULSE 95; RESP 18; TEMP 37.2; O2SAT 95
[2022-08-01 21:57] LABS: Appearance Urine Clear; Color Urine Yellow; Glucose Urine UA Negative (Negative); Leukocyte Esterase Urine Negative (Negative); Nitrite Urine Negative (Negative); PH 6.5 (5.0-9.0); Urine Blood Negative (Negative); Urine Ketones Negative (Negative); Urine Protein Negative (Neg-Trace)
[2022-08-01] MEDS: Piperacillin Sodium/Tazobactam 3.375 GM in 0.9 % Sodium Chloride 50 ML IV (22:08)
[2022-08-01] MEDS: iohexoL 350 MG/ML 100 ML INFUS..BTL IV (22:20)
--- NOTE | 2022-08-01 22:34 | PM.HPGS ---
History of Present Illness History of Present Illness Date of Service: 08/04/22 Chief complaint: abdominal wall cellulitis Narrative: Titus Norton is a 56 year old male here for redness on the skin of the abdominal wall. 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 This was complicated with a large intraabdominal abscess requring a drain. He was in the hospital for a month postop because of this abscess, and was discahrged but was readmitted last July 10, 2022 for pain on the old abscess site. He did not require any repeat drainage and was discharged home over a week ago. He says he has been doing well at home. He has good oral intake and denies abdominal pain. However, starting this morning, he had noticed redness around his old drain site on the right lower abdomen. He denies significant pain but says that the redness has been persistent and seemed to have gotten worse. He rahul any fever and says he feels well otherwise. Review of Systems Constitutional: Constitutional: Denies chills and Denies fever(s) Cardiovascular: Cardiovascular: Denies chest pain, Denies dyspnea and Denies dyspnea on exertion Respiratory: Respiratory: Denies cough, Denies dyspnea and Denies dyspnea on exertion Gastrointestinal: Gastrointestinal: Denies hematochezia and Denies change in bowel habits Genitourinary: Genitourinary: Denies hematuria and Denies difficulty urinating Musculoskeletal: Musculoskeletal: Denies back pain and Denies limited range of motion Neurologic: Denies focal weakness and Denies convulsions Psychiatric: Psychiatric: Denies depression and Denies mood swings [facility] Past Medical History Medical History (Updated 08/01/22 @ 22:42 by Lit Norton MD) Ambulates with cane Back pain due to injury Cellulitis of abdominal wall Diabetes type 2, controlled Diabetic nephropathy associated with type 2 diabetes mellitus Dyslipidemia Epidermal cyst Eye inflammation HTN (hypertension) Morbid obesity Obesity (BMI 30-39.9) Sleep apnea Umbilical hernia Family History Family History Father Diabetes Heart disease Mother Diabetes Heart disease Other No family history of cancer Surgical History Surgical History H/O colonoscopy History of umbilical hernia repair (~01/08/22) Hx of removal of cyst S/P appendectomy Social History Social History Household Members: Spouse Housing: Apartment Are you a primary caregiver assisted living to a significant other at home: No Do you presently have visiting nurse or other home services: Yes Alcohol intake: never Patient Tobacco Use Status: Never used Tobacco Smoked in Last 30 Days: No Use of substances other than those prescribed or required for medical reasons: No Currently Displaying Signs/Symptoms of Drug Intoxication Withdrawal: No Have you been hit, kicked, punched, or otherwise hurt by someone within the past year? If so, by whom?: No Do you feel safe in your current relationship?: Yes Is there a partner from a previous relationship who is making you feel unsafe now?: No Are you made to feel afraid or neglected: No Advance Directives: No Advance Directives Information Provided: No Do you have thoughts of harming others: None Do you have a plan to hurt others: No Plan Recently lost weight without trying: No How much weight loss: Unsure Eating poorly because of decreased appetite: No Nutrition screen score: 2 Nutrition Risks: No Nutritional Risk Poor oral hygiene: Yes service: No Current occupational status: disabled Meds Allergies Allergy/AdvReac Type Severity Reaction Status Date / Time lisinopril [LISINOPRIL] Allergy Mild RASH Verified 07/27/22 07:56 Home Medications Medication Instructions Recorded Confirmed Last Taken Type atorvastatin 10 mg tablet 10 mg PO BEDTIME 10/22/20 08/01/22 07/31/22 History carvedilol 12.5 mg tablet 12.5 mg PO Q12H 10/22/20 08/01/22 07/31/22 History cholecalciferol (vitamin D3) 25 25 mcg PO DAILY 10/22/20 08/01/22 07/31/22 History mcg (1,000 unit) capsule trazodone 150 mg tablet 150 mg PO BEDTIME 11/04/20 08/01/22 07/31/22 History buspirone 5 mg tablet 5 mg PO DAILY 01/04/22 08/01/22 07/31/22 History sertraline 100 mg tablet 150 mg PO BEDTIME 01/04/22 08/01/22 07/31/22 History dulaglutide 3 mg/0.5 mL 0.5 ml subcut FR 07/10/22 08/01/22 07/31/22 History subcutaneous pen injector (Trulicity) Physical Exam Vital Signs: Vital Signs: Last Vital Signs Temp 98.9 F 08/01/22 21:45 Pulse 95 08/01/22 21:45 Resp 18 08/01/22 21:45 BP 137/77 08/01/22 21:45 Pulse Ox 95 08/01/22 21:45 O2 Del Method 08/01/22 21:45 BMI result Body Mass Index 35.9 Const: Other: obese General: comfortable and no acute distress Orientation/consciousness: patient oriented x3 Neck: Neck: Yes no lymphadenopathy Resp: Auscultation: clear to auscultation bilaterally Cardio: Rhythm: regular rhythm GI: Other: area of redness, mild induration and wamrn on old drain site on RLQ Palpation (GI): Soft to palpation, nontender, no guarding and not rigid Neuro: General: patient oriented x3 Results Results Labs: Short CBC 08/01/22 Range/Units 20:44 WBC 6.1 (4.8-10.8) X10*3/uL Hgb 9.4 L (14.0-18.0) g/dl Hct 31.0 L (42.0-52.0) % Plt Count 163 (160-400) X10*3/uL BMP 08/01/22 20:44 Sodium 141 Potassium 4.1 Chloride 102 Carbon Dioxide 31 H BUN 7 L Creatinine 0.82 Calcium 8.7 Liver Function 08/01/22 Range/Units 20:44 Total Bilirubin 0.3 (0.0-1.0) mg/dL AST 12 (5-37) U/L ALT 8 (0-40) U/L Alkaline Phosphatase 64 (39-117) U/L Albumin 3.4 L (3.5-5.0) g/dL Urine 08/01/22 Range/Units 21:47 Urine Color Yellow Urine Appearance Clear Urine pH 6.5 (5.0-9.0) Ur Specific [place] 1.020 (1.005-1.025) Urine Protein Negative (Neg-Trace) mg/dL Urine Glucose (UA) Negative (Negative) mg/dL Assessment and Plan (1) Cellulitis of abdominal wall: Status: Acute Plan I have reviewed his CT and this does not show any new collection on the abdominal wall. There are some inflammatory changes on the subcutaneous layer along the old drain site. I will admit him for IV abx. He may continue to have oral intake. He looks well overall and has a very benign exam. He does not have leukocytosis. He understands the plan well. His was with him. Time Spent With Patient Time: Total time managing care of this patient today ____ minutes. Quality Stroke Does the patient have a stroke diagnosis?: No VTE Prior VTE?: No VTE Risk Level:: Medical - moderate - high VTE Device Contraindication: N/A - Device Ordered VTE Drug Contraindication: N/A - Med Ordered Procedures Date of Service Date of Service: 08/01/22
--- NOTE | 2022-08-01 23:10 | PC.NURSE ---
Med Rec completed at this time.
[2022-08-01 23:31] VITALS: BP 121/68; PULSE 93; RESP 17; TEMP 36.6; O2SAT 94
--- NOTE | 2022-08-01 23:32 | MHC.EDTECH ---
pt is resting watching tv, i took vitals he requested nothing he is ok no issues
[2022-08-02] MEDS: 0.9 % Sodium Chloride Flush 3 ML SYRINGE IVFLUSH ×4 (00:16→22:03)
[2022-08-02 00:35] VITALS: BP 140/77; PULSE 88; RESP 18; TEMP 37.3; O2SAT 93
[2022-08-02 00:36] VITALS: BMI 36.0
[2022-08-02 03:53] VITALS: BP 132/66; PULSE 92; RESP 18; TEMP 37.4; O2SAT 96
[2022-08-02] MEDS: Piperacillin Sodium/Tazobactam 3.375 GM in 0.9 % Sodium Chloride 50 ML IV ×4 (03:54→21:17)
--- NOTE | 2022-08-02 04:35 | ECG_ITS ---
Test Reason : arrhythmia Blood Pressure : / mmHG Vent. Rate : 088 BPM Atrial Rate : 088 BPM P-R Int : 118 ms QRS Dur : 090 ms QT Int : 364 ms P-R-T Axes : 044 025 027 degrees QTc Int : 440 ms Normal sinus rhythm Normal ECG When compared with ECG of 02-AUG-2022 04:35, Sinus rhythm has replaced Atrial fibrillation Left bundle branch block is no longer Present Referred By: Darius Ervin Electronically Signed By:Tino Dinero
[2022-08-02 07:06] VITALS: BP 135/70; PULSE 86; RESP 16; TEMP 37.1; O2SAT 97
[2022-08-02] MEDS: carvediloL 12.5 MG TABLET PO ×2 (07:25→21:17)
[2022-08-02 08:53] LABS: Glucose, Whole Blood 112 mg/dL (60-115)
--- NOTE | 2022-08-02 09:20 | MHC.CM.PN ---
Addendum entered by Karyn Matute 08/02/22 15:49: PT IS NOT ACTIVE WITH A VNA. SPOUSE IS [employer]ETING [employer]GET [employer]IA [employer]. Original Note: CM MET WITH PT AND SPOUSE. LIVES WITH SPOUSE IN AN APARTMENT, SECOND FLOOR. USES CANE FOR MOBILITY. USES C-PAP FOR SLEEP. +HCP, COPY REQUESTED. + COVID VAX X3. PT BELIEVES HE IS STILL ACTIVE WITH [facility], RETURN REFERRAL SENT. PCP DR.SARAH WATKINS. SPOUSE WILL TRANSPORT ON DC.
--- NOTE | 2022-08-02 09:32 | PHA.MEDREC ---
Pharmacy Consult ? Medication Reconciliation Pharmacy has completed the medication reconciliation. Patient confirmed that he is no longer on losartan and hydrochlorothiazide
[2022-08-02] MEDS: Heparin Sodium,Porcine 5,000 UNIT/ML VIAL 5000 UNIT SUBCUT ×2 (09:39→18:04)
[2022-08-02 11:29] LABS: Glucose, Whole Blood 123 mg/dL (60-115)
--- NOTE | 2022-08-02 12:10 | PM.PNGS ---
Subjective Subjective Date of Service: 08/03/22 Interval history: feels well denies abdl pain good PO intake some scanty serousd drainage from old drain site Physical Exam Vital Signs: Vital Signs: Last Vital Signs Temp 98.7 F 08/02/22 07:06 Pulse 86 08/02/22 07:06 Resp 16 08/02/22 07:06 BP 135/70 08/02/22 07:06 Pulse Ox 97 08/02/22 07:06 O2 Del Method 08/02/22 07:06 BMI result Body Mass Index 36.0 Const: General: comfortable and no acute distress Resp: Effort & Inspection: normal respiratory effort Cardio: Rate: regular rate GI: Other: redness on old drain site, some induration Palpation (GI): Soft to palpation, not firm, nontender and no guarding Objective Data Active Medications Carvedilol (Carvedilol 12.5 Mg Tablet) 12.5 mg PO BID [facility]; Protocol Last Admin: 08/02/22 07:25 Dose: 12.5 mg Documented By: NYA Heparin Sodium (Porcine) (Heparin Sodium,Porcine 5,000 Unit/Ml Vial) 5,000 unit SUBCUT Q8H [facility] Last Admin: 08/02/22 09:39 Dose: 5,000 unit Documented By: NYA Piperacillin Sod/Tazobactam (Sod 3.375 gm/ Sodium Chloride) 50 mls @ 100 mls/hr IV Q6H [facility] Last Infusion: 08/02/22 11:49 Dose: 0 mls/hr Documented By: NYA Oxycodone HCl (Oxycodone Hcl Immed Release 5 Mg Tablet) 10 mg PO Q4H PRN PRN Reason: Pain, Moderate (Pain Scale 4-6 Sodium Chloride (0.9 % Sodium Chloride Flush 3 Ml Syringe) 3 ml IVFLUSH QSHIFT [facility] Last Admin: 08/02/22 07:26 Dose: 3 ml Documented By: NYA Labs CBC & Chem 7: 08/01/22 20:44 08/01/22 20:44 Labs: Laboratory Results - last 24 hr 08/01/22 08/01/22 08/01/22 20:44 20:44 20:44 MCV 85.2 MCH 25.8 L MCHC 30.3 L RDW 14.2 Plt Count 163 MPV 10.6 Immature Gran % (Auto) 0.2 Neut % (Auto) 64.5 Lymph % (Auto) 23.8 Jerome % (Auto) 8.4 Eos % (Auto) 2.8 Baso % (Auto) 0.3 Lymph # (Auto) 1.4 Jerome # (Auto) 0.5 Eos # (Auto) 0.2 Baso # (Auto) 0.0 Abs Immat Gran (auto) 0.01 Absolute Neuts (auto) 3.9 Absolute Nucleated RBC 0.000 Nucleated RBC % (auto) 0.0 PT 13.5 H INR 1.2 H Anion Gap 12 Estim Creat Clear Calc 126.8 Estimated GFR > 60 POC Glucose Random Glucose 117 H Lactic Acid Calcium 8.7 Magnesium 1.6 Total Bilirubin 0.3 AST 12 ALT 8 Alkaline Phosphatase 64 Total Protein 6.5 Albumin 3.4 L Urine Color Urine Appearance Urine pH Ur Specific [place] Urine Protein Urine Glucose (UA) Urine Ketones Urine Blood Urine Nitrite Ur Leukocyte Esterase Influenza Type A (PCR) Influenza Type B (PCR) RSV RNA Qual (PCR) SARS-CoV-2 RNA (RT-PCR) 08/01/22 08/01/22 08/01/22 20:44 20:45 21:47 MCV MCH MCHC RDW Plt Count MPV Immature Gran % (Auto) Neut % (Auto) Lymph % (Auto) Jerome % (Auto) Eos % (Auto) Baso % (Auto) Lymph # (Auto) Jerome # (Auto) Eos # (Auto) Baso # (Auto) Abs Immat Gran (auto) Absolute Neuts (auto) Absolute Nucleated RBC Nucleated RBC % (auto) PT INR Anion Gap Estim Creat Clear Calc Estimated GFR POC Glucose Random Glucose Lactic Acid 1.1 Calcium Magnesium Total Bilirubin AST ALT Alkaline Phosphatase Total Protein Albumin Urine Color Yellow Urine Appearance Clear Urine pH 6.5 Ur Specific [place] 1.020 Urine Protein Negative Urine Glucose (UA) Negative Urine Ketones Negative Urine Blood Negative Urine Nitrite Negative Ur Leukocyte Esterase Negative Influenza Type A (PCR) NEGATIVE Influenza Type B (PCR) NEGATIVE RSV RNA Qual (PCR) NEGATIVE SARS-CoV-2 RNA (RT-PCR) NEGATIVE 08/02/22 08/02/22 07:14 11:17 MCV MCH MCHC RDW Plt Count MPV Immature Gran % (Auto) Neut % (Auto) Lymph % (Auto) Jerome % (Auto) Eos % (Auto) Baso % (Auto) Lymph # (Auto) Jerome # (Auto) Eos # (Auto) Baso # (Auto) Abs Immat Gran (auto) Absolute Neuts (auto) Absolute Nucleated RBC Nucleated RBC % (auto) PT INR Anion Gap Estim Creat Clear Calc Estimated GFR POC Glucose 112 123 H Random Glucose Lactic Acid Calcium Magnesium Total Bilirubin AST ALT Alkaline Phosphatase Total Protein Albumin Urine Color Urine Appearance Urine pH Ur Specific [place] Urine Protein Urine Glucose (UA) Urine Ketones Urine Blood Urine Nitrite Ur Leukocyte Esterase Influenza Type A (PCR) Influenza Type B (PCR) RSV RNA Qual (PCR) SARS-CoV-2 RNA (RT-PCR) Procedures Date of Service Date of Service: 08/02/22 Progress Note: A&P Assessment and plan (1) Cellulitis of abdominal wall: Status: Acute Assessment and Plan: warm compresses IV abx will review CT with radiologist - ?liver abscess pt looks well however, no fever, no pain no leukocystosis pt and aware of plan Time Spent With Patient Time: Total time managing care of this patient today ____ minutes. Quality Stroke Does the patient have a stroke diagnosis?: No VTE Prior VTE?: No VTE Risk Level:: Medical - moderate - high VTE Device Contraindication: N/A - Device Ordered VTE Drug Contraindication: N/A - Med Ordered
[2022-08-02 15:05] VITALS: BP 121/68; PULSE 87; RESP 16; TEMP 36.5; O2SAT 96
[2022-08-02 16:00] LABS: Glucose, Whole Blood 115 mg/dL (60-115)
[2022-08-02 19:14] VITALS: BP 133/76; PULSE 89; RESP 16; TEMP 36.8; O2SAT 95
[2022-08-02 19:52] LABS: Glucose, Whole Blood 123 mg/dL (60-115)
[2022-08-02] MEDS: traZODone HCL 50 MG TABLET 150 MG PO (22:01)
[2022-08-03 03:53] VITALS: BP 139/81; PULSE 85; RESP 18; TEMP 36.5; O2SAT 93
[2022-08-03] MEDS: Piperacillin Sodium/Tazobactam 3.375 GM in 0.9 % Sodium Chloride 50 ML IV ×4 (03:59→22:07)
[2022-08-03] MEDS: Heparin Sodium,Porcine 5,000 UNIT/ML VIAL 5000 UNIT SUBCUT ×3 (03:59→17:34)
[2022-08-03] MEDS: carvediloL 12.5 MG TABLET PO ×2 (07:30→22:07)
[2022-08-03] MEDS: 0.9 % Sodium Chloride Flush 3 ML SYRINGE IVFLUSH ×3 (07:31→22:08)
[2022-08-03 07:41] LABS: Glucose, Whole Blood 88 mg/dL (60-115)
[2022-08-03 08:00] VITALS: BP 130/74; PULSE 98; RESP 19; TEMP 36.3; O2SAT 96
--- NOTE | 2022-08-03 09:11 | P.PNGS_ITS ---
Subjective Subjective Date of Service: 08/03/22 <Bertha Fernandez PA-C - Last Filed: 08/03/22 09:17> 08/03/22 <Lit Norton MD - Last Filed: 08/03/22 12:57> Interval history: He is feeling well. Denies nausea, vomiting. Passing flatus. Some mild pain at drain site but and patient think it overall looks better. <Bertha Fernandez PA-C - Last Filed: 08/03/22 09:17> Physical Exam Vital Signs: Vital Signs: Last Vital Signs Temp 97.4 F 08/03/22 08:00 Pulse 98 08/03/22 08:00 Resp 19 08/03/22 08:00 BP 130/74 08/03/22 08:00 Pulse Ox 96 08/03/22 08:00 O2 Del Method 08/03/22 08:00 BMI result Body Mass Index 36.0 <Bertha Fernandez PA-C - Last Filed: 08/03/22 09:17> Const: General: comfortable, no acute distress and alert <Bertha israel PA-C - Last Filed: 08/03/22 09:17> Orientation/consciousness: patient oriented x3 <Bertha Fernandez PA-C - Last Filed: 08/03/22 09:17> Resp: Effort & Inspection: normal respiratory effort <Bertha Fernandez PA-C - Last Filed: 08/03/22 09:17> GI: Other: old drain site RLQ with very faint surrounding erythema, much improved, mild induration below opening, some purulent drainage from drain site <Bertha Fernandez PA-C - Last Filed: 08/03/22 09:17> Inspection: Yes distended (softly, much improved from prior admissions) and Yes incision (clean, healing well) <YESENIA Wilson Last Filed: 08/03/22 09:17> Skin: General skin exam: no rashes or lesions noted <YESENIA Wilson Last Filed: 08/03/22 09:17> Neuro: General: patient oriented x3 and moves all extremities <YESENIA Wilson Last Filed: 08/03/22 09:17> Extrem: General: Yes no clubbing, cyanosis or edema <Bertha Fernandez PA-C - Last Filed: 08/03/22 09:17> Objective Data Active Medications Carvedilol (Carvedilol 12.5 Mg Tablet) 12.5 mg PO BID [facility]; Protocol Last Admin: 08/03/22 07:30 Dose: 12.5 mg Documented By: RODRIGO Heparin Sodium (Porcine) (Heparin Sodium,Porcine 5,000 Unit/Ml Vial) 5,000 unit SUBCUT Q8H [facility] Last Admin: 08/03/22 03:59 Dose: 5,000 unit Documented By: XIMENA Piperacillin Sod/Tazobactam (Sod 3.375 gm/ Sodium Chloride) 50 mls @ 100 mls/hr IV Q6H [facility] Last Infusion: 08/03/22 04:47 Dose: 0 mls/hr Documented By: XIMENA Insulin Human Lispro (Insulin Lispro 100 Unit/Ml 3 Ml Vial) 0 unit SUBCUT QIDACHS [facility]; Protocol Last Admin: 08/03/22 07:32 Dose: Not Given Documented By: RODRIGO Non-Admin Reason: No Insulin Coverage Oxycodone HCl (Oxycodone Hcl Immed Release 5 Mg Tablet) 10 mg PO Q4H PRN PRN Reason: Pain, Moderate (Pain Scale 4-6 Sodium Chloride (0.9 % Sodium Chloride Flush 3 Ml Syringe) 3 ml IVFLUSH QSHIFT [facility] Last Admin: 08/03/22 07:31 Dose: 3 ml Documented By: RODRIGO Trazodone HCl (Trazodone Hcl 50 Mg Tablet) 150 mg PO BEDTIME [facility] Last Admin: 08/02/22 22:01 Dose: 150 mg Documented By: XIMENA <Bertha Fernandez PA-C - Last Filed: 08/03/22 09:17> Labs CBC & Chem 7: : 08/01/22 20:44 08/01/22 20:44 <Bertha Fernandez PA-C - Last Filed: 08/03/22 09:17> Labs: Laboratory Results - last 24 hr 08/02/22 08/02/22 08/02/22 11:17 15:04 19:06 POC Glucose 123 H 115 123 H 08/03/22 07:31 POC Glucose 88 <Bertha Fernandez PA-C - Last Filed: 08/03/22 09:17> Microbiology Microbiology Results: Microbiology 08/01/22 21:21 Blood Culture - Preliminary Blood - Venous No growth after 24 hours. 08/01/22 21:21 Blood Culture - Preliminary Blood - Venous No growth after 24 hours. <Bertha Fernandez PA-C - Last Filed: 08/03/22 09:17> Procedures Date of Service Date of Service: 08/03/22 <Bertha Fernandez PA-C - Last Filed: 08/03/22 09:17> Progress Note: A&P Assessment and plan (1) Cellulitis of abdominal wall: Status: Acute <Bertha Fernandez PA-C - Last Filed: 08/03/22 09:17> Assessment and Plan: redness on old drain site better pt denies complaints good GI function feels well hopefully dc home in 1-2 days seen and examined independently <Lit Norton MD - Last Filed: 08/03/22 1 2:57> Assessment and Plan: 56 year old male with complex surgical history including right colon CA s/p right colon resection with development of intraabdominal abscess requiring drainage, admitted with cellulitis of old drain site. He is clinically appearing well. VSS- afebrile. The cellulitic changes are overall much improved. Cont IV abx, warm compress QID and massage to area by patient. Patient and comfortable with plan. Anticipate discharge in next 1- 2 days on PO course of abx. <Bertha Fernandez PA-C - Last Filed: 08/03/22 09:17> Time Spent With Patient Time: Total time managing care of this patient today 30 minutes. <Bertha Fernandez PA-C - Last Filed: 08/03/22 09:17> Quality Stroke Does the patient have a stroke diagnosis?: No <Bertha Fernandez PA-C - Last Filed: 08/03/22 09:17> VTE Prior VTE?: No <Bertha Fernandez PA-C - Last Filed: 08/03/22 09:17> VTE Risk Level:: Medical - moderate - high <Bertha Fernandez PA-C - Last Filed: 08/03/22 09:17> VTE Device Contraindication: N/A - Device Ordered <YESENIA Wilson Last Filed: 08/03/22 09:17> VTE Drug Contraindication: N/A - Med Ordered <Bertha Fernandez PA-C - Last Filed: 08/03/22 09:17>
[2022-08-03 11:59] LABS: Glucose, Whole Blood 109 mg/dL (60-115)
[2022-08-03 15:06] VITALS: BP 125/77; PULSE 86; RESP 18; TEMP 36.5; O2SAT 92
[2022-08-03 15:49] LABS: Glucose, Whole Blood 113 mg/dL (60-115)
[2022-08-03 19:23] VITALS: BP 132/76; PULSE 90; RESP 18; TEMP 36.4; O2SAT 96
[2022-08-03 20:31] LABS: Glucose, Whole Blood 113 mg/dL (60-115)
[2022-08-03] MEDS: traZODone HCL 50 MG TABLET 150 MG PO (22:07)
[2022-08-04 04:00] VITALS: BP 125/74; PULSE 91; RESP 18; TEMP 36.6; O2SAT 92
[2022-08-04] MEDS: Heparin Sodium,Porcine 5,000 UNIT/ML VIAL 5000 UNIT SUBCUT (04:06)
[2022-08-04] MEDS: Piperacillin Sodium/Tazobactam 3.375 GM in 0.9 % Sodium Chloride 50 ML IV ×2 (04:06→09:50)
[2022-08-04 07:51] LABS: Glucose, Whole Blood 125 mg/dL (60-115)
[2022-08-04] MEDS: carvediloL 12.5 MG TABLET PO (07:59)
[2022-08-04] MEDS: 0.9 % Sodium Chloride Flush 3 ML SYRINGE IVFLUSH (07:59)
[2022-08-04 08:00] VITALS: BP 141/93; PULSE 95; RESP 18; TEMP 36.2; O2SAT 97
--- NOTE | 2022-08-04 08:59 | P.PNGS_ITS ---
Subjective Subjective Date of Service: 08/04/22 <Bertha Fernandez PA-C - Last Filed: 08/04/22 09:04> 08/04/22 <Lit Norton MD - Last Filed: 08/04/22 11:02> Interval history: Feeling overall much better, anxious to go home. Some pain at drain site but much improved. <Bertha Fernandez PA-C - Last Filed: 08/04/22 09:04> Physical Exam Vital Signs: Vital Signs: Last Vital Signs Temp 97.9 F 08/04/22 04:00 Pulse 91 08/04/22 04:00 Resp 18 08/04/22 04:00 BP 125/74 08/04/22 04:00 Pulse Ox 92 08/04/22 04:00 O2 Del Method 08/04/22 04:00 BMI result Body Mass Index 36.0 <Bertha Fernandez PA-C - Last Filed: 08/04/22 09:04> Const: General: comfortable, no acute distress and alert <Bertha Fernandez PA-C - Last Filed: 08/04/22 09:04> Orientation/consciousness: patient oriented x3 <Bertha Fernandez PA-C - Last Filed: 08/04/22 09:04> GI: Other: erythema of previous drain site resolved, some residual induration just beneath drain site, small amount of purulence expressed <Bertha Fernandez PA-C - Last Filed: 08/04/22 09:04> Inspection: Yes distended (very mild) and Yes incision (midline well healing) <Bertha Fernandez PA-C - Last Filed: 08/04/22 09:04> Palpation (GI): Soft to palpation, Tenderness to palpation present (GI) (mild, drain site), no guarding and not rigid <Bertha Fernandez PA-C - Last Filed: 08/04/22 09:04> Skin: General skin exam: no rashes or lesions noted <Bertha Fernandez PA-C - Last Filed: 08/04/22 09:04> Neuro: General: patient oriented x3 and moves all extremities <Bertha Fernandez PA-C - Last Filed: 08/04/22 09:04> Extrem: General: No no pedal edema <Bertha Fernandez PA-C - Last Filed: 08/04/22 09:04> Objective Data Active Medications Carvedilol (Carvedilol 12.5 Mg Tablet) 12.5 mg PO BID [facility]; Protocol Last Admin: 08/04/22 07:59 Dose: 12.5 mg Documented By: RODRIGO Heparin Sodium (Porcine) (Heparin Sodium,Porcine 5,000 Unit/Ml Vial) 5,000 unit SUBCUT Q8H [facility] Last Admin: 08/04/22 04:06 Dose: 5,000 unit Documented By: SERA Piperacillin Sod/Tazobactam (Sod 3.375 gm/ Sodium Chloride) 50 mls @ 100 mls/hr IV Q6H [facility] Last Infusion: 08/04/22 04:40 Dose: 0 mls/hr Documented By: SERA Insulin Human Lispro (Insulin Lispro 100 Unit/Ml 3 Ml Vial) 0 unit SUBCUT QIDACHS [facility]; Protocol Last Admin: 08/04/22 07:45 Dose: Not Given Documented By: RODRIGO Non-Admin Reason: No Insulin Coverage Oxycodone HCl (Oxycodone Hcl Immed Release 5 Mg Tablet) 10 mg PO Q4H PRN PRN Reason: Pain, Moderate (Pain Scale 4-6 Sodium Chloride (0.9 % Sodium Chloride Flush 3 Ml Syringe) 3 ml IVFLUSH QSHIFT [facility] Last Admin: 08/04/22 07:59 Dose: 3 ml Documented By: RODRIGO Trazodone HCl (Trazodone Hcl 50 Mg Tablet) 150 mg PO BEDTIME [facility] Last Admin: 08/03/22 22:07 Dose: 150 mg Documented By: SERA <Bertha Fernandez PA-C - Last Filed: 08/04/22 09:04> Labs CBC & Chem 7: : 08/01/22 20:44 08/01/22 20:44 <Bertha Fernandez PA-C - Last Filed: 08/04/22 09:04> Labs: Laboratory Results - last 24 hr 08/03/22 08/03/22 08/03/22 11:44 15:42 19:26 POC Glucose 109 113 113 08/04/22 07:40 POC Glucose 125 H <Bertha Fernandez PA-C - Last Filed: 08/04/22 09:04> Microbiology Microbiology Results: Microbiology 08/01/22 21: Blood Culture - Preliminary Blood - Venous No growth after 48 hours. 08/01/22 21: Blood Culture - Preliminary Blood - Venous No growth after 48 hours. <Bertha Fernandez PA-C - Last Filed: 08/04/22 09:04> Procedures Date of Service Date of Service: 08/04/22 <Bertha Fernandez PA-C - Last Filed: 08/04/22 09:04> Progress Note: A&P Assessment and plan (1) Cellulitis of abdominal wall: Status: Acute <Bertha Fernandez PA-C - Last Filed: 08/04/22 09:04> Assessment and Plan: Much improved Minimal pain Redness induration has resolved CT reviewed with radiologist- question of hypodensity in the dome of the liver; plan to repeat CT scan in a few weeks He ready to go home No GI complaints DC instructions given Emphasized to him the importance of lifestyle changes especially with his diet Seen and examined independently <Lit Norton MD - Last Filed: 08/04/22 11:02> Assessment and Plan: 56 year old male with complex surgical history including right colon CA s/p right colon resection with development of intraabdominal abscess requiring drainage, admitted with cellulitis of old drain site. He remains clinically appearing well. There is still a small amt of purulent drainage when expressed but the cellulitic changes are overall much improved with the erythema resolved. He is ready for discharge on course of PO antibiotics. He is to continue warm compress QID and massage to area. He is to follow up with Dr. Norton in 1-2 weeks. Patient comfortable with plan. <Bertha Fernandez PA-C - Last Filed: 08/04/22 09:04> Time Spent With Patient Time: Total time managing care of this patient today ____ minutes. <Bertha Fernandez PA-C - Last Filed: 08/04/22 09:04> Quality Stroke Does the patient have a stroke diagnosis?: No <Bertha Fernandez PA-C - Last Filed: 08/04/22 09:04> VTE Prior VTE?: No <Bertha Fernandez PA-C - Last Filed: 08/04/22 09:04> VTE Risk Level:: Medical - moderate - high <Bertha Fernandez PA-C - Last Filed: 08/04/22 09:04> VTE Device Contraindication: N/A - Device Ordered <Bertha Fernandez PA-C - Last Filed: 08/04/22 09:04> VTE Drug Contraindication: N/A - Med Ordered <Bertha Fernandez PA-C - Last Filed: 08/04/22 09:04>
--- NOTE | 2022-08-04 11:24 | MHC.CM.PN ---
DP: PT MEDICALLY CLEARED FOR DC HOME, NO SERVICES. RN AWARE. [facility] WILL TRANSPORT
[2022-08-04 11:29] LABS: Glucose, Whole Blood 158 mg/dL (60-115)
--- NOTE | 2022-08-06 11:46 | PM.DS ---
DS: Providers Provider Date of Service: 08/04/22 Date of admission: 08/01/22 22:44 Date of discharge: 08/04/22 Primary care physician: Daniella Colon MD Attending physician on admission: Lit Norton Consults: 08/01/22 22:19 Consult to General Surgery Stat Consulting Provider: Lit Norton Reason for consultation: right abd wall infection Attending physician on discharge: Lit Norton DS: Diagnosis Discharge Diagnosis (1) Cellulitis of abdominal wall: Status: Acute DS: Summary Hospital Course Hospital Course: HPI UPON ADMISSION: Titus Norton is a 56 year old male here for redness on the skin of the abdominal wall. 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 This was complicated with a large intraabdominal abscess requring a drain. He was in the hospital for a month postop because of this abscess, and was discahrged but was readmitted last July 10, 2022 for pain on the old abscess site. He did not require any repeat drainage and was discharged home over a week ago. He says he has been doing well at home. He has good oral intake and denies abdominal pain. However, starting this morning, he had noticed redness around his old drain site on the right lower abdomen. He denies significant pain but says that the redness has been persistent and seemed to have gotten worse. He denies any fever and says he feels well otherwise. CT was performed which revealed some inflammatory changes on the subcutaneous layer along the old drain site. HOSPITAL COURSE: The patient was therefore admitted for IV abx for cellulitis of the drain site. Her overall looked well and had no leukocytosis. He was continued on diabetic diet and hot compresses were to be applied TID followed by massage of the area. He had an uncomplicated hospital stay. The erythema and edema gradually improved. He had some scanty purulent drainage from the site which decreased daily. He continued to tolerate a solid diet and had good bowel function. On 08/04/22, the erythema and edema had essentially resolved, there was scanty drainage at the site. He felt ready for discharge. He was discharged to home on 08/04/22 in stable condition. He completed a 4 day course of IV antibiotics and was discharged on a course of PO Augmentin BID. He is to follow up with Dr. Norton in office in 1-2 weeks. He is to apply a dry sterile dressing to drain site while it continues to drain. Status at Discharge Functional status at discharge: independent ambulation Overall status at discharge: patient is back to baseline Time Spent with Patient Time attestation: Total time managing care of this patient today ____ minutes. Discharge coordination time: Greater than 30 minutes Quality: Safe Use of Opioids Does Pt have an Active Cancer Diagnosis on the Problem List?: No Quality: Stroke Does the patient have a stroke diagnosis?: No Physical Exam Vital Signs: Vital Signs: Last Vital Signs Temp 97.2 F 08/04/22 08:00 Pulse 95 08/04/22 08:00 Resp 18 08/04/22 08:00 BP 141/93 H 08/04/22 08:00 Pulse Ox 97 08/04/22 08:00 O2 Del Method 08/04/22 08:00 BMI result Body Mass Index 36.0 Const: General: comfortable, no acute distress and alert Orientation/consciousness: patient oriented x3 Resp: Effort & Inspection: normal respiratory effort GI: Other: drain site with no residual erythema or edema, small scanty purulent drainage Inspection: Yes distended (mild, soft) and Yes incision (clean) Skin: General skin exam: no rashes or lesions noted Neuro: General: patient oriented x3 Extrem: General: Yes no pedal edema DS: Data Data Completed and Pending Completed studies during hospitalization [Text1]: Procedures Assistance with Respiratory Ventilation, Less than 24 Consecutive Hours, Continuous Positive Airway Pressure (06/01/22) Control Bleeding in Gastrointestinal Tract, Open Approach (06/01/22) Drainage of Retroperitoneum, Percutaneous Approach (06/01/22) Insertion of Infusion Device into Superior Vena Cava, Percutaneous Approach (06/01/22) Resection of Appendix, Percutaneous Endoscopic Approach (03/27/22) Resection of Right Large Intestine, Open Approach (06/01/22) Ultrasonography of Superior Vena Cava, Guidance (06/01/22) Labs on day of discharge: Preliminary micro results at discharge 08/01/22 21:21 Blood Culture - Preliminary Blood - Venous No growth after 48 hours. 08/01/22 21:21 Blood Culture - Preliminary Blood - Venous No growth after 48 hours. Discharge Plan Discharge Anticipated Discharge Date/Time: 08/04/22 12:02 Patient Disposition: Home, Self-Care Discharge Diagnosis: cellulitis of abdominal wall Referrals: Daniella Colon MD [Primary Care Provider] - 1 Week Lit Norton MD [Physician] - 2 Weeks Discharge Medications: New amoxicillin-pot clavulanate [Augmentin] 500-125 mg tablet 1 tab PO BID Qty: 14 0RF Continued oxycodone-acetaminophen [Percocet] 5-325 mg tablet 1 - 2 tab PO Q6H PRN (Reason: pain) Qty: 20 0RF Rx Instructions: Partial Fill upon patient request. sertraline 100 mg tablet 150 mg PO BEDTIME buspirone 5 mg tablet 5 mg PO DAILY Trulicity 3 mg/0.5 mL pen injector 0.5 ml subcut FR ondansetron 8 mg Tablet,Disintegrating 8 mg PO Q8H PRN (Reason: Nausea) Qty: 30 3RF cholecalciferol (vitamin D3) 25 mcg (1,000 unit) capsule 25 mcg PO DAILY atorvastatin 10 mg tablet 10 mg PO BEDTIME carvedilol 12.5 mg tablet 12.5 mg PO Q12H trazodone 150 mg tablet 150 mg PO BEDTIME Discharge Orders: Discharge Order (Routine); Ordered 08/04/22 Ordered By: Bertha Fernandez Diet: Diabetic diet Activity on Discharge: As tolerated Stand Alone Forms: Patient Portal Discharge page Care Plan Goals: Resolution of cellulitis Health Concerns: Diabetes mellitus Colon CA hx of intraabdominal abscess Cellulitis abdominal wall Plan of Treatment: IV abx transitioned to PO abx warm compresses Assessment: Improved Discharge Date/Time: 08/04/22 12:25
== END 2022-08-04 12:25 | disposition home or self-care (01) | DRG 721 ==
LOC: HO.ED 22:43 → HO.EDOVER 22:48 → HO.S3 23:48
PROVIDERS: Physician Assistant Medical; Admitting Provider Surgery; Emergency Provider Student in an Organized Health Care Education/Training Program; PCP Internal Medicine; Visit Provider Surgery
DX: T81.41XA Infection following a procedure, superficial incisional surgical site, initial encounter (principal); L03.311 Cellulitis of abdominal wall; E66.01 Morbid (severe) obesity due to excess calories; Z20.822 Contact with and (suspected) exposure to COVID-19; Z85.038 Personal history of other malignant neoplasm of large intestine; Z68.36 Body mass index [BMI] 36.0-36.9, adult; Z79.899 Other long term (current) drug therapy
CPT/HCPCS: 0241U; 74177; 80053; 81003; 82947; 83605; 83735; 85025; 85610; 87040; 93005; 99285; J2543; Q9967

== ENCOUNTER 2022-08-10 14:52 | Outpatient (REF) | payer MEDICAID, SELFPAY ==
--- NOTE | ~2022-08-10 | XR_ITS ---
EXAMINATION: XR HAND AND WRIST, LEFT CLINICAL INFORMATION: Pain. COMPARISON: None. TECHNIQUE: 3 views of the left hand and 4 views of the left wrist. FINDINGS: Views of the left wrist do not demonstrate any evidence of acute fracture or dislocation. Joint spaces are maintained. There is some soft tissue swelling about the dorsum of the wrist and carpal bones. There is no evidence of acute fracture or dislocation of the left hand. No destructive bony lesions are seen. Joint spaces are maintained. There is some mild spurring about the 1st interphalangeal joint. There is 1 mm of bony density about the dorsum of the 3rd distal interphalangeal joint is seen likely representing sequela of previous injury. There is mild spurring of the 5th distal interphalangeal joint. XR/XR hand LT min 3V IMPRESSION: No evidence of acute fracture or dislocation of the left hand or wrist.
--- NOTE | ~2022-08-10 | XR_ITS ---
EXAMINATION: XR HAND AND WRIST, LEFT CLINICAL INFORMATION: Pain. COMPARISON: None. TECHNIQUE: 3 views of the left hand and 4 views of the left wrist. FINDINGS: Views of the left wrist do not demonstrate any evidence of acute fracture or dislocation. Joint spaces are maintained. There is some soft tissue swelling about the dorsum of the wrist and carpal bones. There is no evidence of acute fracture or dislocation of the left hand. No destructive bony lesions are seen. Joint spaces are maintained. There is some mild spurring about the 1st interphalangeal joint. There is 1 mm of bony density about the dorsum of the 3rd distal interphalangeal joint is seen likely representing sequela of previous injury. There is mild spurring of the 5th distal interphalangeal joint. XR/XR wrist LT min 3V IMPRESSION: No evidence of acute fracture or dislocation of the left hand or wrist.
== END 2022-08-10 14:53 | disposition home or self-care (01) ==
LOC: HO.XRAY 14:52
PROVIDERS: PCP Physician Assistant Medical; Visit Provider Physician Assistant Medical
DX: M79.642 Pain in left hand (principal); M25.532 Pain in left wrist
CPT/HCPCS: 73110; 73130

== ENCOUNTER → 2022-08-17 12:21 | Outpatient (BNVA) | payer MEDICAID, SELFPAY | PROVIDERS: PCP Physician Assistant Medical; Visit Provider Internal Medicine Endocrinology, Diabetes & Metabolism | DX: E11.29 Type 2 diabetes mellitus with other diabetic kidney complication (principal); R80.9 Proteinuria, unspecified | CPT/HCPCS: 82947; 83036; 99202 ==

== ENCOUNTER 2022-08-19 08:46 | Outpatient (REF) | payer MEDICAID, SELFPAY ==
[2022-08-19 08:57] LABS: MANUAL DIFF FLAG NO
[2022-08-19 09:00] LABS: Basophils Percent Auto 0.4 % (0-2); Eosinophils Absolute Auto 0.3 X10*3/uL (0.0-0.4); Eosinophils Percent Auto 5.2 % (0-4); Hematocrit 35.4 % (42.0-52.0); Hemoglobin 10.5 g/dl (14.0-18.0); Imm Gran Abs Auto 0.01 X10*3/uL (0.00-0.03); Imm Gran Pct Auto 0.2 % (0.0-0.4); Lymphocytes Absolute Auto 1.6 X10*3/uL (1.2-4.9); Lymphocytes Percent Auto 28.8 % (20-40); Mean Corpuscular HGB Conc 29.7 g/dl (31.0-36.0); Mean Corpuscular Hemoglobin 25.1 pg (27.0-33.0); Mean Corpuscular Volume 84.5 fL (80.0-98.0); Mean Platelet Volume 9.8 fL (9.4-12.4); Monocytes Absolute Auto 0.4 X10*3/uL (0.1-1.2); Monocytes Percent Auto 6.8 % (2-11); Neutrophils Absolute Auto 3.3 x10*3/uL (2.0-8.3); Neutrophils Percent Auto 58.6 % (45-73); Platelet Count 175 X10*3/uL (160-400); Red Blood Count 4.19 X10*6/uL (4.60-5.80); Red Cell Distribution Width 14.6 % (11.0-16.0); White Blood Count 5.6 X10*3/uL (4.8-10.8)
[2022-08-19 09:27] LABS: Alanine Aminotransferase 10 U/L (0-40); Albumin Level 3.8 g/dL (3.5-5.0); Alkaline Phosphatase 79 U/L (39-117); Anion Gap 13 (12-20); Aspartate Amino Transferase 15 U/L (5-37); Bilirubin Total 0.3 mg/dL (0.0-1.0); Blood Urea Nitrogen 10 mg/dL (9-16); Calcium 9.1 mg/dL (8.4-10.2); Carbon Dioxide 28 mmol/L (22-29); Chloride 108 mmol/L (96-108); Estimated Glomerular Filt Rate > 60; Glucose Random 126 mg/dL (60-115); Potassium 4.3 mmol/L (3.3-5.1); Sodium 145 mmol/L (135-145); Total Protein 6.9 g/dL (6.5-8.0)
[2022-08-19 09:43] LABS: Ferritin 61 ng/mL (20-250)
== END 2022-08-19 08:47 | disposition home or self-care (01) ==
LOC: HO.LAB 08:46
PROVIDERS: PCP Internal Medicine; Visit Provider Internal Medicine
DX: C19 Malignant neoplasm of rectosigmoid junction (principal); C18.1 Malignant neoplasm of appendix; K65.1 Peritoneal abscess
CPT/HCPCS: 36415; 80053; 82378; 82728; 85025

== ENCOUNTER → 2022-09-01 10:20 | Outpatient (BNVA) | payer MEDICAID, SELFPAY | PROVIDERS: PCP Internal Medicine; Visit Provider Surgery | DX: L03.311 Cellulitis of abdominal wall (principal); E66.01 Morbid (severe) obesity due to excess calories; Z68.36 Body mass index [BMI] 36.0-36.9, adult; C18.9 Malignant neoplasm of colon, unspecified | CPT/HCPCS: 99212 ==

== ENCOUNTER 2022-09-14 12:18 | Outpatient (REF) | payer MEDICAID, SELFPAY ==
--- NOTE | ~2022-09-14 | PE_ITS ---
EXAMINATION: Fluorine-18 FDG PET/CT Scan CLINICAL INDICATION: Initial treatment management. Appendiceal adenocarcinoma. PROCEDURE: 58 minutes following the intravenous administration of 22.1 mCi of fluorine 18 FDG, images from the base of the skull to the mid thighs were obtained using a combined PET/CT scanner with CT scan based attenuation correction. No oral contrast was administered. No intravenous contrast was administered. Transverse, coronal, sagittal, and volume reconstruction projections were obtained. The patient's blood glucose as determined by a finger stick, was 78 mg/dl immediately prior to injection. Total CT exam dose-length product 1213.42 mGy-cm * These CT images were obtained using dose optimization techniques as appropriate, variously including the following: Automated exposure control * Adjustment of mA and/or kV according to patient size (this includes techniques or standardized protocols for targeted exams where dose is matched to indication/reason for exam; i.e. extremities or head) * Use of iterative reconstruction technique COMPARISON: No previous PET/CT scan is available for comparison. CT scans of the abdomen and pelvis dated 08/01/2022 and of the chest, abdomen, and pelvis dated 06/08/2022 are available for comparison. FINDINGS: (Slice numbers described in this report are numbered superiorly to inferiorly with slice #1 in the head) NECK AND VISUALIZED HEAD: No foci of abnormal FDG activity are noted. The distribution of FDG activity is physiological. There is no cervical lymphadenopathy. There is some mucosal thickening in the maxillary sinuses bilaterally, with no associated abnormal FDG activity. THORAX: There are no foci of abnormal FDG activity. No pulmonary nodules are visualized. The right hemidiaphragm is mildly elevated, similar to prior studies. There is no pleural or pericardial fluid or pneumothorax. There is no mediastinal, supraclavicular, or axillary lymphadenopathy. A right-sided chest port with internal jugular catheter terminating in the superior vena cava is noted. ABDOMEN AND PELVIS: With suture lines evident in the hepatic flexure region of the right colon. FDG activity of varying intensities is present throughout the gastrointestinal tract with the most intense focus in the right lower quadrant in a loop of small bowel, slice 200/311 but with no associated CT abnormality. There is diverticulosis without evidence of diverticulitis. The hollow viscera are otherwise unremarkable. There is a subtle hypodensity in the dome of the right lobe of the liver, just barely visible centered about slice 112/311. This is much better delineated on the recent diagnostic CT scan performed with intravenous contrast dated 08/01/2022. There is no abnormal FDG activity in this region which appears isointense on the FDG PET images with the adjacent liver parenchyma. The liver is otherwise unremarkable. The gallbladder and spleen are unremarkable. The kidneys, adrenal glands, and pancreas are unremarkable. There is a focus of increased FDG activity in the left posterior aspect of the prostate gland, SUVmax 6.7, slice 251/311. There is some calcifications in the prostate gland but this is not enlarged. There is a fat-containing left inguinal hernia. The pelvic organs are otherwise unremarkable. There is some subcutaneous mild FDG activity in the periumbilical region likely within a recent surgical incision. There is no other abnormal FDG activity in the abdomen or pelvis. There is no retroperitoneal, mesenteric, pelvic or inguinal lymphadenopathy. MUSCULOSKELETAL: There are no foci of abnormal FDG activity in the osseous structures. A minimal thoracolumbar scoliosis is present with lumbar convexity to the left. There are degenerative changes in the spine but no suspicious sclerotic or lytic lesions are visualized. VASCULAR: Some coronary calcifications are present. PET/PET CT fusion skull to thigh IMPRESSION: 1. An FDG avid focus in the prostate gland is suspicious for malignancy. Urologic evaluation is recommended. 2. A subtle hypodensity in the dome of the right lobe of the liver is present with no associated abnormal FDG activity. This was better delineated on the 08/01/[address] scan performed with intravenous contrast. The absence of abnormal FDG activity suggests this is not malignant, but the finding is nonspecific. Further characterization of this with MRI, performed without and with intravenous contrast is recommended. 3. Postsurgical changes from a right hemicolectomy are noted. 4. Coronary calcifications.
== END 2022-09-14 12:19 | disposition home or self-care (01) ==
LOC: HO.PET 12:18
PROVIDERS: Visit Provider Internal Medicine
DX: Z13.89 Encounter for screening for other disorder (principal)

== ENCOUNTER → 2022-10-07 09:09 | Outpatient (BNVA) | payer MEDICAID, SELFPAY | PROVIDERS: PCP Internal Medicine; Visit Provider Physician Assistant Surgical | DX: Z48.3 Aftercare following surgery for neoplasm (principal); C18.9 Malignant neoplasm of colon, unspecified; R19.7 Diarrhea, unspecified; E66.01 Morbid (severe) obesity due to excess calories; Z68.35 Body mass index [BMI] 35.0-35.9, adult | CPT/HCPCS: 99212 ==

== ENCOUNTER → 2022-11-11 10:02 | Outpatient (BNVA) | payer MEDICAID, SELFPAY | PROVIDERS: PCP Internal Medicine; Visit Provider Surgery | DX: C18.1 Malignant neoplasm of appendix (principal) | CPT/HCPCS: 99212 ==

== ENCOUNTER → 2023-01-06 14:47 | Outpatient (BNVA) | payer MEDICARE, SELFPAY | PROVIDERS: PCP Internal Medicine; Visit Provider Surgery | DX: L72.9 Follicular cyst of the skin and subcutaneous tissue, unspecified (principal); L08.9 Local infection of the skin and subcutaneous tissue, unspecified | CPT/HCPCS: 99212 ==

== ENCOUNTER 2023-01-13 11:51 | Outpatient (REF) | payer MEDICARE, SELFPAY ==
--- NOTE | ~2023-01-13 | CT_ITS ---
EXAMINATION: CT ABDOMEN AND PELVIS WITH CONTRAST CLINICAL INFORMATION: Abdominal pain. Increasing CEA. On chemotherapy. COMPARISON: Previous CT of the abdomen and pelvis July 2022 and PET/CT August 2022 TECHNIQUE: Multidetector volumetric images were obtained from the superior aspect of the liver through the pubic symphysis following administration 85 mL of Omnipaque 350 intravenous contrast. Sagittal and coronal reformatted images were obtained on the technologist's workstation. Oral contrast: No This CT examination was performed using dose optimization techniques as appropriate, variously including the following: *Automated exposure control *Adjustment of mA and/or kV according to patient size (this includes techniques or standardized protocols for targeted exams where dose is matched to indication/reason for exam; i.e. extremities or head) *Use of iterative reconstruction technique DLP: 621 mGy-cm FINDINGS: LUNG BASES: The visualized lung bases are unremarkable. LIVER, GALLBLADDER, AND BILIARY TREE: The small subcentimeter low-attenuation lesion high in the dome of the right lobe of the liver measuring 6 mm axial image 10 series 3 is stable. This did not demonstrate increased uptake on PET CT scan. There is a new irregularly-shaped low-attenuation lesion in the central liver in the medial segment of the left lobe of the liver near the junction of the right and left portal veins. This measures approximately 3 x 2 cm in transverse and AP dimension for example axial image 3 series 3 and is worrisome for new metastatic disease to the liver. There are also new smaller low-attenuation lesions adjacent to the gallbladder for example measuring 6 mm axial image 27 series 3 worrisome for metastatic disease. The portal veins and hepatic veins are patent. There may be a small amount of pericholecystic fluid. The gallbladder is otherwise normal. There is no biliary duct dilatation. PANCREAS: Unremarkable. SPLEEN: Unremarkable. ADRENAL GLANDS: Unremarkable. KIDNEYS AND URETERS: The kidneys are normal in size, shape, and attenuation. No hydronephrosis, hydroureter, or calculi seen. No perinephric stranding. BLADDER: Unremarkable. GASTROINTESTINAL TRACT: Postsurgical changes from right colectomy. There is a residual small fluid collection seen in the right lateral abdomen expected location of the right colon. This measures 1 cm in AP and transverse dimension and approximately 7 cm in length. This has a small amount of air and high attenuation questionable for old contrast. This likely represents abscess. There is adjacent thickening of the right lateral periportal fascia. There is some asymmetric thickening of the adjacent right lateral abdominal wall. Small and large bowel is otherwise unremarkable. ABDOMINAL WALL: Small left periumbilical or ventral hernia containing fat. Small left inguinal hernia containing fat. LYMPH NODES: Small retroperitoneal lymph nodes. No enlarged lymph nodes. Question small peritoneal nodule versus postsurgical changes in the right lower quadrant for example axial image 61 series 3 and coronal reconstructed image 38. This does not appear appreciably changed from previous exams. No ascites. VASCULAR: Unremarkable. PELVIC VISCERA: Unremarkable. OSSEOUS STRUCTURES: Degenerative changes of the spine. CT/CT abdomen pelvis w IV con IMPRESSION: 2 new low-attenuation liver lesions worrisome for metastatic disease. Postsurgical changes following right colectomy. Continued interval decrease in right lateral intra-abdominal abscess and inflammatory changes of the right lateral abdominal wall. Fleischner guidelines were followed.
[2023-01-13] MEDS: iohexoL 350 MG/ML 100 ML INFUS..BTL 85 ML IV (13:34)
== END 2023-01-13 11:52 | disposition home or self-care (01) ==
LOC: HO.CT 11:51
PROVIDERS: PCP Internal Medicine; Visit Provider Internal Medicine
DX: R10.9 Unspecified abdominal pain (principal); C18.1 Malignant neoplasm of appendix
CPT/HCPCS: 74177; Q9967

== ENCOUNTER 2023-02-09 11:35 | Outpatient (REF) | payer MEDICAID, SELFPAY | END 2023-02-09 11:36 | disposition home or self-care (01) | LOC: HO.PET 11:35 | PROVIDERS: PCP Internal Medicine; Visit Provider Internal Medicine | DX: Z13.89 Encounter for screening for other disorder (principal) ==

== ENCOUNTER 2023-02-28 13:22 | Outpatient (AMB) | payer OTHER, SELFPAY ==
[2023-02-28 13:24] VITALS: BP 132/65; PULSE 81; BMI 35.7
--- NOTE | 2023-02-28 13:24 | A.OFFVIS_ITS ---
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 Patient c/o; ? abscess, thinks it might of been a mosquito bite, currently on 30 tabs of abx, Cephalexin Onset: 02/21/2023. Relay Motorman Required: No Accompanied by: Spouse Allergies lisinopril [LISINOPRIL] Allergy (Mild, Verified 02/28/23 13:34) RASH oxaliplatin Allergy (Verified 02/28/23 13:34) Shortness of Breath Medication List - Last Reconciled 02/28/23 by Lit Norton MD atorvastatin 10 mg PO BEDTIME buspirone 10 mg PO QAM carvedilol 12.5 mg PO Q12H cephalexin 500 mg PO TID cholecalciferol (vitamin D3) 25 mcg PO DAILY dexamethasone 4 mg PO BID dulaglutide (Trulicity) 1.5 mg (0.5 mL) subcut QWEEK meclizine 1 tab PO Q8H PRN ondansetron 8 mg PO Q8H PRN oxycodone-acetaminophen 5-325 mg (Percocet) 1 - 2 tabs PO Q6H PRN sertraline 150 mg PO BEDTIME trazodone 150 mg PO BEDTIME HPI 3m fu HPI Details He is here for follow-up for his history of right colon cancer, status post right colon resection, as well as for an area of swelling and redness on the proximal right thigh. He continues to do well with regards to his GI functions. He has good oral intake. He says he has gained weight. He denies any problems with bowel movements. He denies any abdominal pain. He says that he had some swelling and redness on the proximal right thigh over a week ago. He says that this became progressively worse. He was started on antibiotics by Dr. Murguia and this has improved significantly since then. He says that this is probably from a ?bug bite? [facility] Medical History (Updated 02/28/23 @ 13:46 by Lit Norton MD) Ambulates with cane Back pain due to injury Cellulitis of abdominal wall Diabetes type 2, controlled Diabetic nephropathy associated with type 2 diabetes mellitus Dyslipidemia Epidermal cyst Eye inflammation History of colon cancer HTN (hypertension) Infected cyst of skin Morbid obesity Obesity (BMI 30-39.9) Sleep apnea Umbilical hernia Surgical History H/O colonoscopy History of colon resection History of umbilical hernia repair (~01/08/22) Hx of removal of cyst S/P appendectomy Family History Father Diabetes Heart disease Mother Diabetes Heart disease Other No family history of cancer Social History Household Members: Spouse Housing: Apartment Are you a primary care team coordinator scheduler to a significant other at home: No Do you presently have visiting nurse or other home services: Yes Alcohol intake: never Patient Tobacco Use Status: Never used Tobacco service: No Current occupational status: disabled Review of Systems Const Denies chills and Denies fever(s) Card Denies chest pain, Denies dyspnea and Denies dyspnea on exertion Resp Denies cough, Denies dyspnea and Denies dyspnea on exertion GI Denies hematochezia and Denies change in bowel habits Denies hematuria and Denies difficulty urinating Musc Denies back pain and Denies limited range of motion Neuro Denies focal weakness and Denies convulsions Psych Denies depression and Denies mood swings Physical Exam Vital Signs: Last Vital Signs Pulse 81 02/28/23 13:24 BP 132/65 02/28/23 13:24 BMI result Body Mass Index 35.7 Const Other: Morbidly obese General: comfortable and no acute distress Orientation/consciousness: patient oriented x3 Neck Neck: Yes no lymphadenopathy Resp Auscultation: clear to auscultation bilaterally Cardio Rhythm: regular rhythm GI Other: Protuberant abdomen Palpation (GI): Soft to palpation, nontender and no guarding Neuro General: patient oriented x3 Extrem Other: Right proximal thigh near the groin - small area of cystic induration, about 1.5 cm, non draining, no cellulitis at this time Assessment & Plan Assessment & Plan (1) Infected cyst of skin: Code(s): L72.9 - Follicular cyst of the skin and subcutaneous tissue, unspecified; L08.9 - Local infection of the skin and subcutaneous tissue, unspecified Plan: This is likely to be an epidermal cyst that may have been infected. He was on antibiotics and this has improved significantly. There is no drainable abscess at this time. There is no fluctuance I instructed him to do warm compresses to the area. I will see him again in the office in about 2 weeks to re-examine this. I told him that he may benefit from formal excision if this persists. (2) History of colon cancer: Code(s): Z85.038 - Personal history of other malignant neoplasm of large intestine Plan: Status post right colon resection last year. He had a T4 N2 adenocarcinoma. His CEA level was 32 last October, and is down to 2.4 last month. He feels well overall. He had a PET scan last month showing no FDG activity in the liver. There is a stable FDG active lesion in the prostate. He will continue to be surveilled closely. He is to follow-up with Dr. Murguia regularly as well Coding Level of Care Code Est Pt Level 3 (72294) Diagnoses Infected cyst of skin L72.9; L08.9 History of colon cancer Z85.038
== END 2023-02-28 13:41 | disposition home or self-care (01) ==
PROVIDERS: PCP Internal Medicine; Visit Provider Surgery
DX: L72.9 Follicular cyst of the skin and subcutaneous tissue, unspecified (principal); L08.9 Local infection of the skin and subcutaneous tissue, unspecified; Z85.038 Personal history of other malignant neoplasm of large intestine
CPT/HCPCS: 99213

== ENCOUNTER → 2023-02-28 13:22 | Outpatient (BNVA) | payer MEDICARE, MEDICAID, SELFPAY | PROVIDERS: PCP Internal Medicine; Visit Provider Surgery | DX: L72.9 Follicular cyst of the skin and subcutaneous tissue, unspecified (principal); L08.9 Local infection of the skin and subcutaneous tissue, unspecified; Z85.038 Personal history of other malignant neoplasm of large intestine | CPT/HCPCS: 99212 ==

== ENCOUNTER 2023-03-14 13:00 | Outpatient (AMB) | payer OTHER, MEDICAID, SELFPAY ==
[2023-03-14 13:04] VITALS: BP 144/76; PULSE 75; BMI 35.3
--- NOTE | 2023-03-14 13:04 | MHC.OFFVIS ---
Intake Vital Signs 03/14/23 13:04 Height 5 ft 10 in Weight 246 lb BMI 35.3 BP 144/76 H Blood Pressure Location Rt brachial Position Sitting Pulse 75 Intake Visit Reasons: 2 wks follow up, malignant neoplasm of appendix. Intake Note: This patient presents for a two week follow-up assessment for malignant neoplasm of appendix, swelling and redness on the proximal right thigh. Patient denies complaints at this time. Music Executive Required: No Accompanied by: Self / Same As Patient Allergies lisinopril [LISINOPRIL] Allergy (Mild, Verified 03/14/23 13:05) RASH oxaliplatin Allergy (Verified 03/14/23 13:05) Shortness of Breath Medication List - Last Reconciled 03/14/23 by Lit Norton MD atorvastatin 10 mg PO BEDTIME buspirone 10 mg PO QAM carvedilol 12.5 mg PO Q12H cephalexin 500 mg PO TID cholecalciferol (vitamin D3) 25 mcg PO DAILY dexamethasone 4 mg PO BID dulaglutide (Trulicity) 1.5 mg (0.5 mL) subcut QWEEK meclizine 1 tab PO Q8H PRN ondansetron 8 mg PO Q8H PRN oxycodone-acetaminophen 5-325 mg (Percocet) 1 - 2 tabs PO Q6H PRN sertraline 150 mg PO BEDTIME trazodone 150 mg PO BEDTIME HPI 2 wks follow up, malignant neoplasm of appendix. HPI Details I had seen him 2 weeks ago for a follow-up for his history of appendiceal carcinoma, as well as for a cyst on the right thigh. I had asked him to return because of this follicular cyst on the right thigh that seemed to have been inflamed. I had instructed him to do warm compresses to the area and had been placed on antibiotics He says that he has has resolved to ready. [facility] Medical History Ambulates with cane Back pain due to injury Cellulitis of abdominal wall Diabetes type 2, controlled Diabetic nephropathy associated with type 2 diabetes mellitus Dyslipidemia Epidermal cyst Eye inflammation History of colon cancer HTN (hypertension) Infected cyst of skin Morbid obesity Obesity (BMI 30-39.9) Sleep apnea Umbilical hernia Surgical History H/O colonoscopy History of colon resection History of umbilical hernia repair (~01/08/22) Hx of removal of cyst S/P appendectomy Family History Father Diabetes Heart disease Mother Diabetes Heart disease Other No family history of cancer Social History Household Members: Spouse Housing: Apartment Are you a primary healthcare liaison to a significant other at home: No Do you presently have visiting nurse or other home services: Yes Alcohol intake: never Patient Tobacco Use Status: Never used Tobacco service: No Current occupational status: disabled Review of Systems Const Denies chills and Denies fever(s) Card Denies chest pain, Denies dyspnea and Denies dyspnea on exertion Resp Denies cough, Denies dyspnea and Denies dyspnea on exertion GI Denies hematochezia and Denies change in bowel habits Denies hematuria and Denies difficulty urinating Musc Denies back pain and Denies limited range of motion Neuro Denies focal weakness and Denies convulsions Psych Denies depression and Denies mood swings Physical Exam Vital Signs: Last Vital Signs Pulse 75 03/14/23 13:04 BP 144/76 H 03/14/23 13:04 BMI result Body Mass Index 35.3 Const General: comfortable and no acute distress Resp Effort & Inspection: normal respiratory effort Cardio Rate: regular rate GI Palpation (GI): Soft to palpation, not firm and nontender Extrem Other: Area of the right thigh cyst has improved significantly, no residual induration, no palpable mass, no redness Assessment & Plan Assessment & Plan (1) Infected cyst of skin: Code(s): L72.9 - Follicular cyst of the skin and subcutaneous tissue, unspecified; L08.9 - Local infection of the skin and subcutaneous tissue, unspecified Plan: This has completely resolved. There is no palpable mass on the area He is prone to these skin cyst so I told him to do warm compresses whenever he notices this on any part of his body. He can follow up on a p.r.n. basis. Coding Level of Care Code Est Pt Level 2 (11034) Diagnoses Infected cyst of skin L72.9; L08.9
== END 2023-03-14 13:37 | disposition home or self-care (01) ==
PROVIDERS: PCP Internal Medicine; Visit Provider Surgery
DX: L72.9 Follicular cyst of the skin and subcutaneous tissue, unspecified (principal); L08.9 Local infection of the skin and subcutaneous tissue, unspecified
CPT/HCPCS: 99212

== ENCOUNTER → 2023-03-14 13:00 | Outpatient (BNVA) | payer MEDICARE, SELFPAY | PROVIDERS: PCP Internal Medicine; Visit Provider Surgery | DX: L72.9 Follicular cyst of the skin and subcutaneous tissue, unspecified (principal); L08.9 Local infection of the skin and subcutaneous tissue, unspecified | CPT/HCPCS: 99212 ==

== ENCOUNTER 2023-03-21 12:40 | Emergency (ER) | payer MEDICARE, SELFPAY ==
[2023-03-21 13:29] VITALS: BP 132/84; PULSE 91; RESP 18; TEMP 36.6; O2SAT 97; BMI 35.6
--- NOTE | 2023-03-21 13:30 | ED.GENADULT ---
HPI - General Adult General Chief complaint: Wound/Laceration Stated complaint: small finger lac on chemo told to come in Time Seen by Provider: 03/21/23 14:17 Source: patient, RN notes reviewed and old records reviewed Mode of arrival: ambulatory History of Present Illness HPI narrative: 57-year-old male with a past medical history of diabetes, HLD, HTN, colon CA just finished chemotherapy, presenting to the ED complaining of small laceration to left middle finger s/p cutting chicken 5 days ago. Reports increasing swelling/erythema and pain to finger with decreased mobility. Denies fever/chills, drainage from area, crush injury, new numbness/tingling or weakness. Tetanus unknown Onset (ago): day(s) Related Data Home Medications Medication Instructions Recorded Confirmed atorvastatin 10 mg tablet 10 mg PO BEDTIME 10/22/20 03/14/23 carvedilol 12.5 mg tablet 12.5 mg PO Q12H 10/22/20 03/14/23 cholecalciferol (vitamin D3) 25 25 mcg PO DAILY 10/22/20 03/14/23 mcg (1,000 unit) capsule trazodone 150 mg tablet 150 mg PO BEDTIME 11/04/20 03/14/23 sertraline 100 mg tablet 150 mg PO BEDTIME 01/04/22 03/14/23 meclizine 12.5 mg tablet 1 tab PO Q8H PRN nausea 08/18/22 03/14/23 buspirone 10 mg tablet 10 mg PO QAM 01/06/23 03/14/23 Previous Rx's Medication Instructions Recorded oxycodone-acetaminophen 5 mg-325 1 - 2 tab PO Q6H PRN pain #20 tabs 07/09/22 mg tablet (Percocet) ondansetron 8 mg disintegrating 8 mg PO Q8H PRN Nausea #30 tabs 07/29/22 tablet dulaglutide 1.5 mg/0.5 mL 1.5 mg (0.5 mL) subcut QWEEK #2 mL 08/18/22 subcutaneous pen injector (Trulicity) cephalexin 500 mg tablet 500 mg PO TID #30 tabs 02/21/23 dexamethasone 4 mg tablet 4 mg PO BID #30 tabs 03/14/23 cephalexin 500 mg capsule 500 mg PO QID 7 days #28 caps 03/21/23 Allergies Allergy/AdvReac Type Severity Reaction Status Date / Time lisinopril [LISINOPRIL] Allergy Mild RASH Verified 03/21/23 13:34 oxaliplatin Allergy Shortness Verified 03/21/23 13:34 of Breath Review of Systems Review of Systems: Constitutional: No Fever, No Chills ENT/Mouth: No Ear Pain, No Nasal Congestion, No sore throat, No Rhinorrhea, No Swallowing Difficulty Cardiovascular: No Chest Pain, No SOB Respiratory: No Cough, No Sputum, No Wheezing Gastrointestinal: No Nausea, No Vomiting, No Abdominal pain Musculoskeletal: + joint pain, No Myalgias, +Joint Swelling Skin: +laceration, No rash Neuro: No Weakness, No Numbness, No Paresthesias Yes all other systems are reviewed and are negative Constitutional: Constitutional: Reports as per [facility] Past Medical History Attestation statement: The following information was validated with the patient. Source: old records reviewed Medical History Ambulates with cane Back pain due to injury Cellulitis of abdominal wall Diabetes type 2, controlled Diabetic nephropathy associated with type 2 diabetes mellitus Dyslipidemia Epidermal cyst Eye inflammation History of colon cancer HTN (hypertension) Infected cyst of skin Morbid obesity Obesity (BMI 30-39.9) Sleep apnea Umbilical hernia Surgical History H/O colonoscopy History of colon resection History of umbilical hernia repair (~01/08/22) Hx of removal of cyst S/P appendectomy Family History Family History Father Diabetes Heart disease Mother Diabetes Heart disease Other No family history of cancer Social History Social History Household Members: Spouse Housing: Apartment Are you a primary med care manager to a significant other at home: No Do you presently have visiting nurse or other home services: Yes Alcohol intake: never Patient Tobacco Use Status: Never used Tobacco Advance Directives: No Advance Directives Information Provided: No service: No Current occupational status: disabled Physical Exam ED Vital Signs: Vital Signs - 24 hr 03/21/23 13:29 Temperature 98 F Pulse Rate 91 Respiratory Rate 18 Blood Pressure 132/84 Pulse Oximetry 97 Oxygen Delivery Method Room Air BMI result Body Mass Index 35.6 Const General: cooperative, healthy appearing and no acute distress Orientation/consciousness: patient oriented x3 Limitations: no limitations HENMT Head: Yes normal to inspection and Yes atraumatic Ears: hearing grossly normal bilaterally General nose exam: Normal external nose present Face and sinus: Yes normal facial exam Eyes General: appearance normal, both eyes and all related structures EOM: EOMs intact bilaterally Neck Neck: Yes normal visual inspection and Yes no meningeal signs Resp Effort & Inspection: normal respiratory effort and no respiratory distress Cardio Rate: regular rate Peripheral pulses: radial pulses present and ulnar radial pulses present Skin Other: Small 0.5 cm linear laceration noted to distal radial aspect of left 3rd digit with mild surrounding erythema > pulp. Mildly tender to palpation. No fluctuance/induration or streaking. Full range of motion intact to digit with some discomfort. [id number] opposition intact. Neurovascular intact. No drainage Rashes: no rashes Neuro General: patient oriented x3, tone normal, moves all extremities and no meningeal signs Extrem General: Yes normal to inspection Course Course Course Narrative: RME performed by Renate Del Cid PA-C. Patient is a 57 year old assigned male at with a history of colon cancer just finished chemo and type 2 diabetes presenting to the emergency department with a laceration to the left middle finger. Patient states that his left middle finger got cut 4 days ago and now he is unable to bend it. Labs ordered. Patient placed back in the waiting room pending room availability and results. -no leukocytosis. H&H at patient's baseline. ESR/CRP WNL. Glucose 235, no anion gap -lactic acid elevated to 2.7 > will obtain repeat. Low suspicion for severe sepsis. -1543--repeat lactic acid 1.5 > Results discussed with patient including worrisome signs and symptoms and strict return precautions, and when to return to the emergency department. They verbalized understanding and feel safe for discharge at this time. Medications Administered Discontinued Medications Generic Name Dose Route Start Last Admin Trade Name Freq PRN Reason Stop Dose Admin Diphtheria/Tetanus/Acell Pertussis 0.5 ml 03/21/23 14:37 03/21/23 14:52 Diphth,Pertus(Acell),Tet Adult 0.5 Ml Syringe IM 03/21/23 14:38 0.5 ml .ONCE ONE Administration Medical Decision Making Medical Decision Making [facility] Narrative: 57-year-old male with a past medical history of diabetes, HLD, HTN, colon CA just finished chemotherapy, presenting to the ED complaining of small laceration to left middle finger s/p cutting chicken 5 days ago. On exam vital signs stable, NAD, nontoxic appearing, physical exam as noted above with small healing laceration to left 3rd digit with mild surrounding erythema and swelling with painful ROM. No streaking/ fluctuance or induration. Concern for cellulitis. No evidence of felon, abscess, tenosynovitis. Low suspicion for septic joint/arthritis. Labs including lactic and blood cultures ordered in triage Please refer to course for remaining clinical decision making, interpretation of labs/imaging results, and discussions with consultants and/or family members. Differential Diagnosis Differential Diagnoses: The differential diagnosis associated with the presentation includes As above Admission/Observation Consideration of admission/observation: Escalation of care including admission/observation considered Lab Data [facility] Lab Attestation statement: I reviewed the patient's lab results. 03/21/23 13:55 03/21/23 13:55 Labs: Lab Results 03/21/23 03/21/23 03/21/23 Range/Units 13:55 13:55 13:55 WBC 5.2 (4.8-10.8) X10*3/uL RBC 4.25 L (4.60-5.80) X10*6/uL Hgb 11.9 L (14.0-18.0) g/dl Hct 37.7 L (42.0-52.0) % MCV 88.7 (80.0-98.0) fL MCH 28.0 (27.0-33.0) pg MCHC 31.6 (31.0-36.0) g/dl RDW 14.7 (11.0-16.0) % Plt Count 120 L (160-400) X10*3/uL MPV 10.2 (9.4-12.4) fL Immature Gran % (Auto) 1.2 H (0.0-0.4) % Neut % (Auto) 55.3 (45-73) % Lymph % (Auto) 35.6 (20-40) % Davie % (Auto) 6.9 (2-11) % Eos % (Auto) 0.6 (0-4) % Baso % (Auto) 0.4 (0-2) % Lymph # (Auto) 1.9 (1.2-4.9) X10*3/uL Davie # (Auto) 0.4 (0.1-1.2) X10*3/uL Eos # (Auto) 0.0 (0.0-0.4) X10*3/uL Baso # (Auto) 0.0 (0.0-0.2) X10*3/uL Abs Immat Gran (auto) 0.06 H (0.00-0.03) X10*3/uL Absolute Neuts (auto) 2.9 (2.0-8.3) x10*3/uL Absolute Nucleated RBC 0.000 (0.0-0.012) X10*3/uL Nucleated RBC % (auto) 0.0 (0.0-0.2) /100WBC ESR 5 (0-15) MM/HR Sodium 141 (135-145) mmol/L Potassium 3.7 (3.3-5.1) mmol/L Chloride 105 (96-108) mmol/L Carbon Dioxide 28 (22-29) mmol/L Anion Gap 12 (12-20) BUN 19 H (9-16) mg/dL Creatinine 1.09 (0.5-1.4) mg/dL Estim Creat Clear Calc 93.9 Estimated GFR > 60 Random Glucose 235 H (60-115) mg/dL Lactic Acid (0.5-2.0) mmol/L Calcium 8.8 D (8.4-10.2) mg/dL Magnesium 1.9 (1.6-2.6) mg/dL Total Bilirubin 0.4 (0.0-1.0) mg/dL AST 19 (5-37) U/L ALT 17 (0-40) U/L Alkaline Phosphatase 64 (39-117) U/L C-Reactive Protein < 0.10 (< or = 0.50) mg/dL Total Protein 6.1 L (6.5-8.0) g/dL Albumin 3.6 (3.5-5.0) g/dL 03/21/23 03/21/23 Range/Units 13:55 15:09 WBC (4.8-10.8) X10*3/uL RBC (4.60-5.80) X10*6/uL Hgb (14.0-18.0) g/dl Hct (42.0-52.0) % MCV (80.0-98.0) fL MCH (27.0-33.0) pg MCHC (31.0-36.0) g/dl RDW (11.0-16.0) % Plt Count (160-400) X10*3/uL MPV (9.4-12.4) fL Immature Gran % (Auto) (0.0-0.4) % Neut % (Auto) (45-73) % Lymph % (Auto) (20-40) % Davie % (Auto) (2-11) % Eos % (Auto) (0-4) % Baso % (Auto) (0-2) % Lymph # (Auto) (1.2-4.9) X10*3/uL Davie # (Auto) (0.1-1.2) X10*3/uL Eos # (Auto) (0.0-0.4) X10*3/uL Baso # (Auto) (0.0-0.2) X10*3/uL Abs Immat Gran (auto) (0.00-0.03) X10*3/uL Absolute Neuts (auto) (2.0-8.3) x10*3/uL Absolute Nucleated RBC (0.0-0.012) X10*3/uL Nucleated RBC % (auto) (0.0-0.2) /100WBC ESR (0-15) MM/HR Sodium (135-145) mmol/L Potassium (3.3-5.1) mmol/L Chloride (96-108) mmol/L Carbon Dioxide (22-29) mmol/L Anion Gap (12-20) BUN (9-16) mg/dL Creatinine (0.5-1.4) mg/dL Estim Creat Clear Calc Estimated GFR Random Glucose (60-115) mg/dL Lactic Acid 2.7 H* 1.5 (0.5-2.0) mmol/L Calcium (8.4-10.2) mg/dL Magnesium (1.6-2.6) mg/dL Total Bilirubin (0.0-1.0) mg/dL AST (5-37) U/L ALT (0-40) U/L Alkaline Phosphatase (39-117) U/L C-Reactive Protein (< or = 0.50) mg/dL Total Protein (6.5-8.0) g/dL Albumin (3.5-5.0) g/dL External Record Review External record reviewed: Inpatient record, Office record, Outpatient record, Prior outpatient labs, Prior outpatient radiology, Primary care record and Outside ED record Tests considered The following testing was considered but not selected: As above Prescription Management I considered prescription management with: Pain Medication and Antibiotic Chronic Conditions Patient?s care impacted by: Diabetes Discharge Plan Discharge Clinical Impression: Cellulitis, Hand laceration Patient Disposition: Home, Self-Care Instructions: Cellulitis (DC) Additional Instructions: Your blood work is reassuring We suspected early infection, if redness/swelling or pain persists or worsens, youre unable to move your finger return to the ED Keflex is an antibiotic please take as prescribed Prescriptions: New cephalexin 500 mg capsule 500 mg PO QID 7 Days Qty: 28 0RF No Action oxycodone-acetaminophen [Percocet] 5-325 mg tablet 1 - 2 tab PO Q6H PRN (Reason: pain) Qty: 20 0RF Rx Instructions: Partial Fill upon patient request. Trulicity 1.5 mg/0.5 mL pen injector 1.5 mg subcut QWEEK Qty: 2 5RF sertraline 100 mg tablet 150 mg PO BEDTIME meclizine 12.5 mg tablet 1 tab PO Q8H PRN (Reason: nausea) cephalexin 500 mg Tablet 500 mg PO TID Qty: 30 0RF dexamethasone 4 mg Tablet 4 mg PO BID Qty: 30 0RF Rx Instructions: for 2 days after chemo ondansetron 8 mg Tablet,Disintegrating 8 mg PO Q8H PRN (Reason: Nausea) Qty: 30 3RF cholecalciferol (vitamin D3) 25 mcg (1,000 unit) capsule 25 mcg PO DAILY atorvastatin 10 mg tablet 10 mg PO BEDTIME carvedilol 12.5 mg tablet 12.5 mg PO Q12H trazodone 150 mg tablet 150 mg PO BEDTIME buspirone 10 mg tablet 10 mg PO QAM Referrals: Daniella Colon MD [Primary Care Provider] - 2 days (For re-evaluation)
[2023-03-21 14:03] LABS: MANUAL DIFF FLAG NO
[2023-03-21 14:07] LABS: Basophils Percent Auto 0.4 % (0-2); Eosinophils Percent Auto 0.6 % (0-4); Hematocrit 37.7 % (42.0-52.0); Hemoglobin 11.9 g/dl (14.0-18.0); Imm Gran Abs Auto 0.06 X10*3/uL (0.00-0.03); Imm Gran Pct Auto 1.2 % (0.0-0.4); Lymphocytes Absolute Auto 1.9 X10*3/uL (1.2-4.9); Lymphocytes Percent Auto 35.6 % (20-40); Mean Corpuscular HGB Conc 31.6 g/dl (31.0-36.0); Mean Corpuscular Volume 88.7 fL (80.0-98.0); Mean Platelet Volume 10.2 fL (9.4-12.4); Monocytes Absolute Auto 0.4 X10*3/uL (0.1-1.2); Monocytes Percent Auto 6.9 % (2-11); Neutrophils Absolute Auto 2.9 x10*3/uL (2.0-8.3); Neutrophils Percent Auto 55.3 % (45-73); Platelet Count 120 X10*3/uL (160-400); Red Blood Count 4.25 X10*6/uL (4.60-5.80); Red Cell Distribution Width 14.7 % (11.0-16.0); White Blood Count 5.2 X10*3/uL (4.8-10.8)
[2023-03-21 14:16] LABS: Alanine Aminotransferase 17 U/L (0-40); Albumin Level 3.6 g/dL (3.5-5.0); Alkaline Phosphatase 64 U/L (39-117); Anion Gap 12 (12-20); Aspartate Amino Transferase 19 U/L (5-37); Bilirubin Total 0.4 mg/dL (0.0-1.0); Blood Urea Nitrogen 19 mg/dL (9-16); C Reactive Protein < 0.10 mg/dL (< or = 0.50); Calcium 8.8 mg/dL (8.4-10.2); Carbon Dioxide 28 mmol/L (22-29); Chloride 105 mmol/L (96-108); Creatinine Clr Calc Pharmacy 93.9; Estimated Glomerular Filt Rate > 60; Glucose Random 235 mg/dL (60-115); Magnesium 1.9 mg/dL (1.6-2.6); Potassium 3.7 mmol/L (3.3-5.1); Sodium 141 mmol/L (135-145); Total Protein 6.1 g/dL (6.5-8.0)
[2023-03-21 14:38] LABS: Erythrocyte Sedimentation Rate 5 MM/HR (0-15)
[2023-03-21 14:39] LABS: Lactic Acid 2.7 mmol/L (0.5-2.0)
[2023-03-21] MEDS: Diphth,Pertus(ACell),Tet Adult 0.5 ML SYRINGE IM (14:52)
[2023-03-21 15:24] LABS: Lactic Acid 1.5 mmol/L (0.5-2.0)
[2023-03-21 16:00] LABS: Reflex Lactate? Lactic Acid Added
== END 2023-03-21 15:54 | disposition home or self-care (01) ==
PROVIDERS: Physician Assistant; Physician Assistant Medical; Emergency Provider Emergency Medicine; PCP Internal Medicine
DX: L03.012 Cellulitis of left finger (principal); S61.211A Laceration without foreign body of left index finger without damage to nail, initial encounter; W26.0XXA Contact with knife, initial encounter; E78.5 Hyperlipidemia, unspecified; I10 Essential (primary) hypertension; C18.9 Malignant neoplasm of colon, unspecified; Z92.21 Personal history of antineoplastic chemotherapy; Y93.G1 Activity, food preparation and clean up; Y92.010 Kitchen of single-family (private) house as the place of occurrence of the external cause; Y99.9 Unspecified external cause status
CPT/HCPCS: 36415; 80053; 83605; 83735; 85025; 85652; 86140; 87040; 90471; 90715; 99282; 99284

== ENCOUNTER 2023-04-12 13:37 | Outpatient (AMB) | payer MEDICARE, SELFPAY ==
--- NOTE | 2023-04-12 13:55 | MHC.OFFVIS ---
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 Name: Rosanna [id number] Accompanied by: Spouse Allergies lisinopril [LISINOPRIL] Allergy (Mild, Verified 04/12/23 13:57) RASH oxaliplatin Allergy (Verified 04/12/23 13:57) Shortness of Breath Medication List - Last Reconciled 04/12/23 by Masoud Rogers MD atorvastatin 10 mg PO BEDTIME buspirone 10 mg PO QAM carvedilol 12.5 mg PO Q12H cholecalciferol (vitamin D3) 25 mcg PO DAILY dulaglutide (Trulicity) 1.5 mg (0.5 mL) subcut QWEEK meclizine 1 tab PO Q8H PRN ondansetron 8 mg PO Q8H PRN oxycodone-acetaminophen 5-325 mg (Percocet) 1 - 2 tabs PO Q6H PRN sertraline 150 mg PO BEDTIME trazodone 150 mg PO BEDTIME HPI HPI Comments History of Present Illness Details Patient has been referred here for evaluation of prolonged QT interval. Patient himself does not have any known cardiac issues. No history of any coronary disease, myocardial infarction or cardiomyopathy or in fact any cardiac issues whatsoever in the past. He also denies any clear-cut cardiac symptoms like angina. [facility] Medical History Ambulates with cane Back pain due to injury Cellulitis of abdominal wall Diabetes type 2, controlled Diabetic nephropathy associated with type 2 diabetes mellitus Dyslipidemia Epidermal cyst Eye inflammation History of colon cancer HTN (hypertension) Infected cyst of skin Morbid obesity Obesity (BMI 30-39.9) Sleep apnea Umbilical hernia Surgical History H/O colonoscopy History of colon resection History of umbilical hernia repair (~01/08/22) Hx of removal of cyst S/P appendectomy Family History Father Diabetes Heart disease Mother Diabetes Heart disease Other No family history of cancer Social History Household Members: Spouse Housing: Apartment Are you a primary health care / medical job titles to a significant other at home: No Do you presently have visiting nurse or other home services: Yes Alcohol intake: never Patient Tobacco Use Status: Never used Tobacco service: No Current occupational status: disabled Review of Systems Const Denies fatigue, Reports weight gain and Reports weight loss Eyes Denies blurry vision ENT Denies sore throat Card Reports as per HPI, Reports no additional complaints, Denies chest pain, Denies chest pain at rest, Denies chest pain with activity, Denies diaphoresis, Denies rapid heart rate, Denies pedal edema, Denies edema, Denies irregular heart rhythm, Denies lightheadedness, Denies radiating jaw, neck or arm pain, Denies palpitations, Denies dyspnea, Denies dyspnea on exertion and Denies orthopnea Resp Denies cough, Denies dyspnea and Denies dyspnea on exertion GI Denies constipation and Denies diarrhea Denies dysuria and Denies urinary frequency Musc Denies muscle cramps, Denies muscle weakness, Denies numbness and Denies tingling Neuro Denies burning sensations, Denies numbness, Denies tingling and Denies paresthesias Psych Denies depression Endo Denies fatigue, Denies polydipsia, Denies polyuria and Denies palpitations Enoch/Lymph Denies easy bruising Physical Exam Vital Signs: Last Vital Signs Pulse 86 04/12/23 13:57 BP 116/84 04/12/23 13:57 BMI result Body Mass Index 35.9 Const General: comfortable and no acute distress Orientation/consciousness: patient oriented x3 HEENT Other: Unremarkable Head: Yes normal to inspection Neck Neck: Yes normal visual inspection Chest Chest palpation & inspection: normal inspection of the chest Resp Auscultation: clear to auscultation bilaterally Cardio Palpation: normal PMI Heart sounds: S1 normal heart sound present, S2 normal heart sound present, no gallops, no murmurs and no rubs GI Palpation (GI): Soft to palpation Back/Spine/Pelvis Other: unremarkable Skin General skin exam: no rashes or lesions noted Neuro General: patient oriented x3 Extrem General: Yes normal to inspection Psych Mental Status: mental status grossly normal Office Procedures EKG Details: EKG with sinus rhythm at 87/Min; incomplete right bundle-branch block pattern; normal [place]; corrected QT 469 milliseconds -acceptable. 51728-[id number], Complete Assessment & Plan Assessment & Plan (1) Prolonged QT interval: Code(s): R94.31 - Abnormal electrocardiogram [ECG] [EKG] Plan In today's EKG, corrected QT is 469 milliseconds, which is considered borderline. In the early EKG from December, corrected QT was again 469 milliseconds. In 2021, it was 440 milliseconds values are also quite similar. Echocardiogram with LVEF of 55-60%, no significant valvular issues and otherwise unremarkable. Overall, no true concern for QT prolongation. In the last couple of EKGs, somewhat borderline but no specific interventions for those. In the future, if any QT prolonging drugs are used, need to ensure there is no significant increase. Otherwise, reassurance only. Coding Level of Care Code New Pt Level 3 (13379) Diagnoses Prolonged QT interval R94.31 CPT Codes EKG - CPT: 94232-[id number], Complete ([id number])
[2023-04-12 13:57] VITALS: BP 116/84; PULSE 86; BMI 35.9
== END 2023-04-12 14:12 | disposition home or self-care (01) ==
PROVIDERS: PCP Internal Medicine; Referring Provider Internal Medicine; Visit Provider Internal Medicine
DX: R94.31 Abnormal electrocardiogram [ECG] [EKG] (principal)
CPT/HCPCS: 93010; 99203

== ENCOUNTER → 2023-04-12 13:37 | Outpatient (BNVA) | payer MEDICARE, SELFPAY | PROVIDERS: PCP Internal Medicine; Referring Provider Internal Medicine; Visit Provider Internal Medicine | DX: R94.31 Abnormal electrocardiogram [ECG] [EKG] (principal) | CPT/HCPCS: 93005; 99202 ==

== ENCOUNTER 2023-04-20 07:49 | Emergency (ER) | payer MEDICARE, SELFPAY ==
[2023-04-20 08:12] VITALS: BP 133/79; PULSE 87; RESP 18; TEMP 36.8; O2SAT 95; BMI 35.9
--- NOTE | 2023-04-20 09:17 | ED_ITS ---
HPI - Skin/Abscess/Foreign Bdy General Chief complaint: Skin/Abscess/Foreign Body Stated complaint: Cyst on both knees Time Seen by Provider: 04/20/23 09:17 Source: patient Mode of arrival: ambulatory Limitations: no limitations History of Present Illness HPI narrative: 57 yo male presents to the ER For evaluation of infected cyst on both of his knees. He states that started several days ago and he has been using warm compresses on them. He states the 1 on his left knee drained twice but now has increased redness around the area. The 1 on his right knee has not drained at all. He denies any injury. He denies any fever or chills. He is able to fully range the knees. MD complaint: abscess/boil Onset (ago): day(s) Tetanus up to date: yes Location: LLE and RLE Severity: moderate Severity scale (1-10): 5 Quality: aching Pain Consistency: intermittent Relieving factors: rest Exacerbating factors: palpation and movement Context: none Treatments prior to arrival: attempted to drain pus at home Related Data Home Medications Medication Instructions Recorded Confirmed atorvastatin 10 mg tablet 10 mg PO BEDTIME 10/22/20 04/12/23 carvedilol 12.5 mg tablet 12.5 mg PO Q12H 10/22/20 04/12/23 cholecalciferol (vitamin D3) 25 25 mcg PO DAILY 10/22/20 04/12/23 mcg (1,000 unit) capsule trazodone 150 mg tablet 150 mg PO BEDTIME 11/04/20 04/12/23 sertraline 100 mg tablet 150 mg PO BEDTIME 01/04/22 04/12/23 meclizine 12.5 mg tablet 1 tab PO Q8H PRN nausea 08/18/22 04/12/23 buspirone 10 mg tablet 10 mg PO QAM 01/06/23 04/12/23 Previous Rx's Medication Instructions Recorded oxycodone-acetaminophen 5 mg-325 1 - 2 tab PO Q6H PRN pain #20 tabs 07/09/22 mg tablet (Percocet) ondansetron 8 mg disintegrating 8 mg PO Q8H PRN Nausea #30 tabs 07/29/22 tablet dulaglutide 1.5 mg/0.5 mL 1.5 mg (0.5 mL) subcut QWEEK #2 mL 08/18/22 subcutaneous pen injector (Trulicity) amoxicillin 875 mg-potassium 1 tab PO BID #10 tabs 04/20/23 clavulanate 125 mg tablet Allergies Allergy/AdvReac Type Severity Reaction Status Date / Time lisinopril [LISINOPRIL] Allergy Mild RASH Verified 04/12/23 13:57 oxaliplatin Allergy Shortness Verified 04/12/23 13:57 of Breath Review of Systems Review of Systems: Yes all other systems are reviewed and are negative FORMERLY [facility], [facility] Past Medical History Medical History Ambulates with cane Back pain due to injury Cellulitis of abdominal wall Diabetes type 2, controlled Diabetic nephropathy associated with type 2 diabetes mellitus Dyslipidemia Epidermal cyst Eye inflammation History of colon cancer HTN (hypertension) Infected cyst of skin Morbid obesity Obesity (BMI 30-39.9) Sleep apnea Umbilical hernia Surgical History H/O colonoscopy History of colon resection History of umbilical hernia repair (~01/08/22) Hx of removal of cyst S/P appendectomy Family History Family History Father Diabetes Heart disease Mother Diabetes Heart disease Other No family history of cancer Social History Social History Household Members: Spouse Housing: Apartment Are you a primary child care specialist to a significant other at home: No Do you presently have visiting nurse or other home services: Yes Alcohol intake: never Patient Tobacco Use Status: Never used Tobacco Advance Directives: No service: No Current occupational status: disabled Physical Exam Vital Signs: Vital Signs: Last Vital Signs Temp 98.3 F 04/20/23 08:12 Pulse 87 04/20/23 08:12 Resp 18 04/20/23 08:12 BP 133/79 04/20/23 08:12 Pulse Ox 95 04/20/23 08:12 O2 Del Method Room Air 04/20/23 08:12 BMI result Body Mass Index 35.9 Appearance: Alert. Oriented X3. No acute distress. HEENT: normal inspection CVS: Normal heart rate and rhythm. Pulses normal. Respiratory: No respiratory distress. Skin: Skin warm and dry. Normal skin color. Normal skin turgor. No rashes. Extremities: Left knee with an approximately 2 cm x 2 cm area of erythema and warmth with central fluctuance, no drainage. Full range of motion. Right knee with a small less than 1 cm area of induration and erythema, mildly tender. Neuro: Oriented X 3. Grossly normal, nonfocal Medical Decision Making Medical Decision Making MDM Narrative: 57-year-old male presents the ER for evaluation of cyst on both of his knees. The left knee has an area of mild cellulitis surrounding the pustule. No drainable area for I&D today. Low suspicion for septic joint or gout, area is very superficial. Will start him on antibiotics for some mild cellulitis. Will have him continue using warm compresses to the area. Local wound care and return precautions were discussed. Stable for discharge home. Differential Diagnosis Differential Diagnoses: The differential diagnosis associated with the presentation includes ingrown hair, abscess, cellulitis, folliculitis External Record Review External record reviewed: Outpatient record and Prior outpatient labs Prescription Management I considered prescription management with: Pain Medication and Antibiotic Chronic Conditions Patient?s care impacted by: Diabetes and Hypertension Critical Care Time Critical Care Time Critical Care Time: No Discharge Plan Discharge Clinical Impression: Cellulitis Patient Disposition: Home, Self-Care Instructions: Cellulitis (DC), Warm Compress or Soak (ED) Additional Instructions: Continue to use warm compresses to the area. Take the prescribed antibiotic as directed, complete the entire course and do not miss any doses. If you develop new or worsening symptoms call 911 or come back to the ER for further evaluation. Prescriptions: New amoxicillin-pot clavulanate 875-125 mg tablet 1 tab PO BID Qty: 10 0RF No Action oxycodone-acetaminophen [Percocet] 5-325 mg tablet 1 - 2 tab PO Q6H PRN (Reason: pain) Qty: 20 0RF Rx Instructions: Partial Fill upon patient request. Trulicity 1.5 mg/0.5 mL pen injector 1.5 mg subcut QWEEK Qty: 2 5RF sertraline 100 mg tablet 150 mg PO BEDTIME meclizine 12.5 mg tablet 1 tab PO Q8H PRN (Reason: nausea) ondansetron 8 mg Tablet,Disintegrating 8 mg PO Q8H PRN (Reason: Nausea) Qty: 30 3RF cholecalciferol (vitamin D3) 25 mcg (1,000 unit) capsule 25 mcg PO DAILY atorvastatin 10 mg tablet 10 mg PO BEDTIME carvedilol 12.5 mg tablet 12.5 mg PO Q12H trazodone 150 mg tablet 150 mg PO BEDTIME buspirone 10 mg tablet 10 mg PO QAM
--- NOTE | 2023-04-20 09:51 | PC.NURSE ---
Patient given discharge instructions and questions answered. Appears well. Quarter size red pimple appearing area noted on left knee.
== END 2023-04-20 09:55 | disposition home or self-care (01) ==
PROVIDERS: Emergency Provider Emergency Medicine; PCP Internal Medicine
DX: L03.116 Cellulitis of left lower limb (principal); I10 Essential (primary) hypertension; E78.5 Hyperlipidemia, unspecified; Z79.85 Long-term (current) use of injectable non-insulin antidiabetic drugs; Z79.899 Other long term (current) drug therapy
CPT/HCPCS: 99282; 99283

== ENCOUNTER 2023-05-02 12:15 | Outpatient (REF) | payer MEDICARE, SELFPAY ==
[2023-05-02 13:57] LABS: Estimated Average Glucose 120 mg/dL; Hemoglobin A1c % 5.8 % (<6.0)
[2023-05-02 15:09] LABS: Creatinine Urine 232.94 mg/dL; Microalbum/Creatinine Ratio Ur 13.3 ug/mg cr (<30)
== END 2023-05-02 12:16 | disposition home or self-care (01) ==
LOC: HO.LAB 12:15
PROVIDERS: Visit Provider Physician Assistant Medical
DX: I13.10 Hypertensive heart and chronic kidney disease without heart failure, with stage 1 through stage 4 chronic kidney disease, or unspecified chronic kidney disease (principal); C18.2 Malignant neoplasm of ascending colon; E11.65 Type 2 diabetes mellitus with hyperglycemia
CPT/HCPCS: 36415; 82043; 82570; 83036

== ENCOUNTER 2023-05-26 08:07 | Outpatient (REF) | payer MEDICARE, SELFPAY ==
--- NOTE | ~2023-05-26 | CT_ITS ---
EXAMINATION: CT CHEST WITH CONTRAST CLINICAL INFORMATION: Colon cancer. Post chemotherapy. COMPARISON: Chest CT most recent May 2022 and chest x-ray May 2022 TECHNIQUE: Multidetector volumetric CT imaging of the chest was obtained after the administration of 85 mL of Omnipaque 350 intravenous contrast without immediate adverse reactions. Axial MIP volume rendering provided. Sagittal and coronal reformatted images were obtained. This CT examination was performed using dose optimization techniques as appropriate, variously including the following: *Automated exposure control *Adjustment of mA and/or kV according to patient size (this includes techniques or standardized protocols for targeted exams where dose is matched to indication/reason for exam; i.e. extremities or head) *Use of iterative reconstruction technique DLP: 277 mGy-cm FINDINGS: FOOD PRODUCTS TESTER: Elevated right hemidiaphragm. LUNGS: 2 mm right middle lobe nodule axial image 298 series 6. This is not seen on May [address] however may be obscured due to extensive bibasilar airspace disease at this time. This is similar to previous PET/CT axial image 526 series 102. The lungs are otherwise clear. MEDIASTINUM: Normal heart size. No pericardial effusion. No enlarged hilar or mediastinal lymph nodes. Right jugular Port-A-Cath with tip projecting over the SVC. Mild coronary artery calcification. PLEURA: There is no pleural effusion. No pleural mass or thickening. AXILLA: No lymphadenopathy. UPPER ABDOMEN: See abdominal and pelvic CT from the same day OSSEOUS STRUCTURES: Degenerative changes of the spine. CT/CT chest w IV con IMPRESSION: Elevated right hemidiaphragm. Stable 2 mm right middle lobe nodule. Chest CT follow-up as per protocol. Fleischner guidelines were followed.
--- NOTE | ~2023-05-26 | CT_ITS ---
EXAMINATION: CT ABDOMEN AND PELVIS WITH CONTRAST CLINICAL INFORMATION: : Cancer. Post chemotherapy. COMPARISON: Previous CT of the abdomen and pelvis most recent January 2023 TECHNIQUE: Multidetector volumetric images were obtained from the superior aspect of the liver through the pubic symphysis following administration 85 mL of Omnipaque 350 intravenous contrast. Sagittal and coronal reformatted images were obtained on the technologist's workstation. Oral contrast: Yes This CT examination was performed using dose optimization techniques as appropriate, variously including the following: *Automated exposure control *Adjustment of mA and/or kV according to patient size (this includes techniques or standardized protocols for targeted exams where dose is matched to indication/reason for exam; i.e. extremities or head) *Use of iterative reconstruction technique DLP: 798 mGy-cm FINDINGS: LIVER, GALLBLADDER, AND BILIARY TREE: Stable small 6 mm low-attenuation lesion high in the dome of the liver axial image 9 series 4. Other low-attenuation lesions in the central liver near the junction of the right and left portal veins and adjacent to the gallbladder on January 2023 exam are no longer seen. The gallbladder is normal. There is no biliary duct dilatation. PANCREAS: Unremarkable. SPLEEN: Unremarkable. ADRENAL GLANDS: Unremarkable. KIDNEYS AND URETERS: The kidneys are normal in size, shape, and attenuation. No hydronephrosis, hydroureter, or calculi seen. No perinephric stranding. BLADDER: Not optimally distended. Excreted contrast in the bladder. GASTROINTESTINAL TRACT: Postsurgical changes following right colectomy. Small air collection adjacent to the surgical anastomosis measuring 1.2 cm. This is decreased in size from 1.8 cm January 2023 exam and likely represents a residual changes from previous abscess. There is a small peritoneal nodule in the right lower quadrant measuring 5 mm axial image 63 series 4 and coronal reconstructed image 40 that is unchanged. There is some mild thickening of the right lateral conal fascia. Small and large bowel are otherwise normal. The appendix is normal. ABDOMINAL WALL: Postsurgical changes and small umbilical ventral hernias containing fat. LYMPH NODES: Small retroperitoneal lymph nodes. These are unchanged. VASCULAR: Unremarkable. PELVIC VISCERA: Slightly enlarged prostate gland measuring 4.7 x 5.3 cm. OSSEOUS STRUCTURES: Degenerative changes of the spine. CT/CT abdomen pelvis w IV con IMPRESSION: Previously identified low-attenuation liver lesions in the central liver and adjacent to the gallbladder January 2023 no longer seen. Stable 6 mm low-attenuation lesion high in the dome of the liver. This may represent a small cyst. Stable postsurgical changes following right colectomy. Continued interval decrease in abscess/small air-containing collection now measuring 1.2 cm. Stable small 5 mm peritoneal nodule in the right lower quadrant. Fleischner guidelines were followed.
[2023-05-26] MEDS: Barium Sulfate Oral (Berry) 450 ML ORAL.SUSP PO (09:48)
[2023-05-26] MEDS: Barium Sulfate Oral (Vanilla) 450 ML ORAL.SUSP PO (09:49)
[2023-05-26] MEDS: iohexoL 350 MG/ML 100 ML INFUS..BTL IV (10:45)
== END 2023-05-26 08:08 | disposition home or self-care (01) ==
LOC: HO.CT 08:07
PROVIDERS: PCP Internal Medicine; Visit Provider Internal Medicine
DX: Z85.038 Personal history of other malignant neoplasm of large intestine (principal)
CPT/HCPCS: 71260; 74177; Q9967

== ENCOUNTER 2023-07-26 10:28 | Outpatient (REF) | payer MEDICARE, SELFPAY ==
[2023-07-26 11:01] LABS: MANUAL DIFF FLAG NO
[2023-07-26 11:47] LABS: Basophils Percent Auto 0.4 % (0-2); Eosinophils Absolute Auto 0.1 X10*3/uL (0.0-0.4); Eosinophils Percent Auto 1.9 % (0-4); Hematocrit 43.1 % (42.0-52.0); Hemoglobin 13.5 g/dl (14.0-18.0); Imm Gran Abs Auto 0.02 X10*3/uL (0.00-0.03); Imm Gran Pct Auto 0.4 % (0.0-0.4); Lymphocytes Absolute Auto 1.6 X10*3/uL (1.2-4.9); Lymphocytes Percent Auto 30.5 % (20-40); Mean Corpuscular HGB Conc 31.3 g/dl (31.0-36.0); Mean Corpuscular Hemoglobin 26.7 pg (27.0-33.0); Mean Corpuscular Volume 85.2 fL (80.0-98.0); Mean Platelet Volume 10.9 fL (9.4-12.4); Monocytes Absolute Auto 0.4 X10*3/uL (0.1-1.2); Neutrophils Percent Auto 58.8 % (45-73); Platelet Count 172 X10*3/uL (160-400); Red Blood Count 5.06 X10*6/uL (4.60-5.80); Red Cell Distribution Width 14.4 % (11.0-16.0); White Blood Count 5.2 X10*3/uL (4.8-10.8)
[2023-07-26 11:51] LABS: Estimated Average Glucose 128 mg/dL; Hemoglobin A1c % 6.1 % (<6.0)
[2023-07-26 11:57] LABS: Appearance Urine Clear; Color Urine Dark Yellow; Glucose Urine UA Negative (Negative); Leukocyte Esterase Urine Negative (Negative); Nitrite Urine Negative (Negative); PH 5.5 (5.0-9.0); Specific Gravity - Urine 1.015 (1.005-1.025); Urine Blood Negative (Negative); Urine Ketones Negative (Negative); Urine Protein Negative (Neg-Trace)
[2023-07-26 12:21] LABS: Alanine Aminotransferase 22 U/L (0-40); Albumin Level 4.1 g/dL (3.5-5.0); Alkaline Phosphatase 71 U/L (39-117); Anion Gap 12 (12-20); Aspartate Amino Transferase 25 U/L (5-37); Bilirubin Total 0.3 mg/dL (0.0-1.0); Blood Urea Nitrogen 10 mg/dL (9-16); Calcium 9.3 mg/dL (8.4-10.2); Carbon Dioxide 29 mmol/L (22-29); Chloride 107 mmol/L (96-108); Cholesterol 124 mg/dL (<200); Estimated Glomerular Filt Rate > 60; Glucose Random 113 mg/dL (60-115); HDL Cholesterol 46 mg/dL (>40); LDL Cholesterol Calculated 54 mg/dL (<100); Sodium 144 mmol/L (135-145); Triglycerides 120 mg/dL (<150)
[2023-07-26 12:31] LABS: Prostate Specific Antigen 0.79 ng/mL (<0.05-4.0)
[2023-07-26 12:38] LABS: Thyroid Stimulating Hormone 1.45 uIU/mL (0.32-4.0)
[2023-07-26 13:17] LABS: Creatinine Urine 83.75 mg/dL; Microalbum/Creatinine Ratio Ur 22.6 ug/mg cr (<30)
== END 2023-07-26 10:29 | disposition home or self-care (01) ==
LOC: HO.LAB 10:28
PROVIDERS: PCP Internal Medicine; Visit Provider Physician Assistant Medical
DX: C18.2 Malignant neoplasm of ascending colon (principal); E66.01 Morbid (severe) obesity due to excess calories; G47.00 Insomnia, unspecified; G47.33 Obstructive sleep apnea (adult) (pediatric); F33.1 Major depressive disorder, recurrent, moderate; F33.2 Major depressive disorder, recurrent severe without psychotic features
CPT/HCPCS: 36415; 80053; 80061; 81003; 82043; 82570; 83036; 84153; 84443; 85025

== ENCOUNTER 2023-08-02 06:41 | Day surgery (SDC) | payer MEDICARE, SELFPAY ==
--- NOTE | 2023-08-01 12:04 | HO.ANESPROP2 ---
Documented by User: Cheryl Ferrara NP 08/01/23 12:08 HPI - Anesthesia Eval Consult details Narrative: 57yo M for Colonoscopy Anesthesia Pre-Procedure Meds Is the patient on any of the following meds?: Dulaglutide (Trulicity) PMFSH Active Problems Active Problems: All Active Problems (Updated 04/26/23 @ 17:15 by Misty Murguia MD) Prolonged QT interval (Acute) History of colon cancer (Acute) Infected cyst of skin (Acute) Cellulitis of abdominal wall (Acute) Intra-abdominal abscess (Acute) S/P right colectomy (Acute) JENNIFER (acute kidney injury) (Acute) Varicose veins of right lower extremity with inflammation (Acute) KYM (obstructive sleep apnea) (Acute) Primary appendiceal adenocarcinoma (Chronic) Diarrhea (Acute) Morbid obesity (Acute) Umbilical hernia (Acute) Obesity (BMI 30-39.9) (Acute) Dyslipidemia (Acute) HTN (hypertension) (Acute) Diabetic nephropathy associated with type 2 diabetes mellitus (Acute) Epidermal cyst (Acute) Diabetes type 2, controlled (Acute) Past Medical History Medical History History of colon cancer Infected cyst of skin Cellulitis of abdominal wall Eye inflammation Sleep apnea Ambulates with cane Back pain due to injury Morbid obesity Umbilical hernia Obesity (BMI 30-39.9) Dyslipidemia Diabetic nephropathy associated with type 2 diabetes mellitus Epidermal cyst HTN (hypertension) Diabetes type 2, controlled Family History Family History Father Diabetes Heart disease Mother Diabetes Heart disease Other No family history of cancer Family history of problems with anesthesia: No Surgical History Surgical History History of colon resection H/O colonoscopy S/P appendectomy History of umbilical hernia repair (~01/08/22) Hx of removal of cyst History of Problems with Anesthesia: No Social History Social History Household Members: Spouse Housing: Apartment Are you a primary critical care unit nurse to a significant other at home: No Do you presently have visiting nurse or other home services: Yes Alcohol intake: never Comment: Ofirmev infusing at time of xfer Patient Tobacco Use Status: Never used Tobacco Are you DNR?: No Advance Directives: No Advance Directives Information Provided: Yes Nutrition Risks: No Nutritional Risk service: No Current occupational status: disabled Meds Allergies Allergy/AdvReac Type Severity Reaction Status Date / Time lisinopril [LISINOPRIL] Allergy Mild RASH Verified 08/02/23 06:52 oxaliplatin Allergy Shortness Verified 08/02/23 06:52 of Breath Home Medications Medication Instructions Recorded Confirmed Last Taken Type atorvastatin 10 mg tablet 10 mg PO BEDTIME 10/22/20 08/02/23 07/31/22 History carvedilol 12.5 mg tablet 12.5 mg PO Q12H 10/22/20 08/02/23 07/31/22 History cholecalciferol (vitamin D3) 25 25 mcg PO DAILY 10/22/20 08/02/23 07/31/22 History mcg (1,000 unit) capsule trazodone 150 mg tablet 150 mg PO BEDTIME 11/04/20 08/02/23 07/31/22 History sertraline 100 mg tablet 150 mg PO BEDTIME 01/04/22 08/02/23 07/31/22 History meclizine 12.5 mg tablet 1 tab PO Q8H PRN nausea 08/18/22 08/02/23 Unknown History buspirone 10 mg tablet 10 mg PO QAM 01/06/23 08/02/23 Unknown History hydrochlorothiazide 25 mg tablet 25 mg PO DAILY 08/02/23 08/02/23 Unknown History Exam Pertinent Lab Results Pertinent Lab Results: Laboratory Tests 07/26/23 10:59 WBC 5.2 Hgb 13.5 L Hct 43.1 Plt Count 172 Sodium 144 Potassium 4.0 Chloride 107 Carbon Dioxide 29 BUN 10 Creatinine 0.92 Narrative Narrative: EKG 03/2023 sinus rhythm at 87/Min; incomplete right bundle-branch block pattern; normal [place]; corrected QT 469 milliseconds -acceptable. ECHO 2021 Conclusions: - 1. Technically limited study despite use of contrast agent 2. Normal LV systolic function with LVEF of 55-60% 3. Limited visualization of cardiac valvular structure with normal cardiac valvular Doppler is 4. Normal calculated RV systolic pressure on this study Assessment and Plan Assessment Anesthesia Assessment: Chart Reviewed Final Anesthetic Review Family History of Problems with Anesthesia: No History of Problems with Anesthesia: No Documented by User: Balwinder Mcclendon MD 08/02/23 07:09 HPI - Anesthesia Eval Anesthesia Pre-Procedure Meds If Yes to any meds - educate patient: Pt education - increased risk of aspiration (Patients last dose 11 days ago.) PMFSH Past Medical History Medical History History of colon cancer Infected cyst of skin Cellulitis of abdominal wall Eye inflammation Sleep apnea Ambulates with cane Back pain due to injury Morbid obesity Umbilical hernia Obesity (BMI 30-39.9) Dyslipidemia Diabetic nephropathy associated with type 2 diabetes mellitus Epidermal cyst HTN (hypertension) Diabetes type 2, controlled Family History Family History Father Diabetes Heart disease Mother Diabetes Heart disease Other No family history of cancer Surgical History Surgical History History of colon resection H/O colonoscopy S/P appendectomy History of umbilical hernia repair (~01/08/22) Hx of removal of cyst Social History Social History Household Members: Spouse Housing: Apartment Are you a primary critical care unit nurse to a significant other at home: No Do you presently have visiting nurse or other home services: Yes Alcohol intake: never Comment: Ofirmev infusing at time of xfer Patient Tobacco Use Status: Never used Tobacco Are you DNR?: No Advance Directives: No Advance Directives Information Provided: Yes Nutrition Risks: No Nutritional Risk service: No Current occupational status: disabled Meds Allergies Allergy/AdvReac Type Severity Reaction Status Date / Time lisinopril [LISINOPRIL] Allergy Mild RASH Verified 08/02/23 06:52 oxaliplatin Allergy Shortness Verified 08/02/23 06:52 of Breath Home Medications Medication Instructions Recorded Confirmed Last Taken Type atorvastatin 10 mg tablet 10 mg PO BEDTIME 10/22/20 08/02/23 07/31/22 History carvedilol 12.5 mg tablet 12.5 mg PO Q12H 10/22/20 08/02/23 07/31/22 History cholecalciferol (vitamin D3) 25 25 mcg PO DAILY 10/22/20 08/02/23 07/31/22 History mcg (1,000 unit) capsule trazodone 150 mg tablet 150 mg PO BEDTIME 11/04/20 08/02/23 07/31/22 History sertraline 100 mg tablet 150 mg PO BEDTIME 01/04/22 08/02/23 07/31/22 History meclizine 12.5 mg tablet 1 tab PO Q8H PRN nausea 08/18/22 08/02/23 Unknown History buspirone 10 mg tablet 10 mg PO QAM 01/06/23 08/02/23 Unknown History hydrochlorothiazide 25 mg tablet 25 mg PO DAILY 08/02/23 08/02/23 Unknown History Exam Airway Mallampati Class: III TM Dist: >3cm Neck ROM: Full Partial: Lower Loose/Missing/Broken Teeth: Yes Heart: [id number] Lungs: cta b/l Assessment and Plan Assessment Anesthesia Assessment: Anesthesia Plan Discussed Final Anesthetic Review NPO: Yes ASA Class: III Final Preanesthetic Review: No Changes in Pt Med Stat, Meds/Allgs Chart Reviewed, Consent Obtained/Reviewed and Anes Risks/Benef Reviewed Patient Risk: Intermediate Procedure Risk: Intermediate Assessment/Block/Sedation in SS: Assess/Block/Sedation-SS Anesthetic Plan Anesthetic Plan: MAC: and Agree w/ Assess. and Plan Disposition: Standard PACU
[2023-08-02 06:50] VITALS: BMI 36.5
[2023-08-02] MEDS: Lactated Ringers 1,000 ML 100 ML IVCONT (07:00)
[2023-08-02 07:23] VITALS: BP 151/70; PULSE 74; RESP 18; TEMP 36.6; O2SAT 95
[2023-08-02 07:27] LABS: Glucose, Whole Blood 100 mg/dL (60-115)
--- NOTE | 2023-08-02 07:37 | P.HPSUR_ITS ---
Pre-Procedural Eval Section A Date of Service: 08/02/23 Section B Chief Complaint: Personal history of other malignant neoplasm of sm Relevant Family History (Specify if Yes): No Relevant Social History: None Present Medications: see Short Stay Collaborative assessment Medical History: Significant History (History of colon cancer Infected cyst of skin Cellulitis of abdominal wall Eye inflammation Sleep apnea Ambulates with cane Back pain due to injury Morbid obesity Umbilical hernia Obesity (BMI 30- 39.9) Dyslipidemia Diabetic nephropathy associated with type 2 diabetes mellitus Epidermal cyst HTN (hyp) History of Previous Operations: Relevant previous surgery/procedure and date(s) (History of colon resection H/O colonoscopy S/P appendectomy History of umbilical hernia repair (~01/08/22) Hx of removal of cyst) Allergies: Allergies Allergy/AdvReac Type Severity Reaction Status Date / Time lisinopril [LISINOPRIL] Allergy Mild RASH Verified 08/02/23 06:52 oxaliplatin Allergy Shortness Verified 08/02/23 06:52 of Breath Review of Systems Sugical H&P ROS: Negative: Constitution, Cardiovascular, Respiratory, Neurological, Psychiatric, Hem-Onc, Allergic/Immunologic, Gastrointestinal, Genitourinary, Musculoskeletal, Integumentary, Endocrine and Eyes/Ears/Nose/Throat Exam Surgical H&P Exam: Normal: HEENT, Normal: Heart, Normal: Lungs, Normal: Extremities, Normal: Abdomen, Normal: Skin and Normal: Neurological Plan Diagnosis/Plan: Unchanged I have reviewed the history and physical and performed a pertinent physical examination on my patient. No changes have occurred unless specified. Time Spent With Patient Time: Total time managing care of this patient today ____ minutes.
--- NOTE | 2023-08-02 07:53 | W.PM.OPN ---
Operative Note Operative Note Date of Service: 08/02/23 Narrative: Operative Information Procedure Description: Colonoscopy Indication: surveillance, hx of colon cancer Anesthesia: MAC COLONOSCOPY Instrument: Olympus variable stiffness pediatric scope 190L Colonoscopy Monitoring: Vital signs and clinical assessment, continuous EKG monitoring, Pulse oximetry, Carbon Dioxide monitoring and blood pressure monitoring were done throughout the procedure. Colon withdrawal time was 6 minutes. Procedure: The patient was placed in the left lateral decubitis position and pre-procedure medications were administered. After a digital rectal examination of the ano-rectum, the video colonoscope was inserted into the rectum and advanced through the colon to the cecum/TI. The colonoscope was slowly withdrawn in a retrograde panoramic fashion and the colon mucosa was carefully examined including a retroflexed view of the rectum. Findings and interventions are described below. Procedure Difficulty: easy Findings: ileo colonic anastomosis- mild inflammation noted around anastomosis Ascending Colon: normal Transverse Colon -normal Descending Colon:normal Sigmoid Colon: normal Rectum: Retroflexion with small internal hemorrhoids, grade I Anorectum - normal Colon preparation: Livingston Bowel Preparation Scale Right colon; 2 Transverse colon: 3 Left colon; 2 (0 = Unprepared colon segment with mucosa not seen due to solid stool that cannot be cleared. 1 = Portion of mucosa of the colon segment seen, but other areas of the colon segment not well seen due to staining, residual stool and/or opaque liquid. 2 = Minor amount of residual staining, small fragments of stool and/or opaque liquid, but mucosa of colon segment seen well. 3 = Entire mucosa of colon segment seen well with no residual staining, small fragments of stool or opaque liquid) Impression and Post Procedure Diagnosis: internal hemorrhoids Plan: High fiber diet leaflet Avoid straining at stool, epsom salts and sitz bath, anusol supps or cream Repeat Colonoscopy in 1-2 years due to hx of colon cancer and polyps or earlier if clinically indicated Above findings were reviewed with the patient and relevant handouts were provided if indicated.
[2023-08-02 07:57] VITALS: BP 111/74; PULSE 88; RESP 16; TEMP 36.4; O2SAT 97
[2023-08-02 08:12] VITALS: BP 112/76; PULSE 76; RESP 16; O2SAT 96
[2023-08-02 08:27] VITALS: BP 134/99; PULSE 81; RESP 16; O2SAT 96
[2023-08-02 08:42] VITALS: BP 138/98; PULSE 66; RESP 16; TEMP 36.4; O2SAT 96
== END 2023-08-02 09:07 | disposition home or self-care (01) ==
PROVIDERS: PCP Internal Medicine; Visit Provider Internal Medicine Gastroenterology
PROC: 0DJD8ZZ Inspection of Lower Intestinal Tract, Via Natural or Artificial Opening Endoscopic (ICD-10-PCS; CPT 45378; principal; 2023-08-02 07:30)
DX: Z12.11 Encounter for screening for malignant neoplasm of colon (principal); K63.89 Other specified diseases of intestine; K64.0 First degree hemorrhoids; Z85.068 Personal history of other malignant neoplasm of small intestine; Z86.010 Personal history of colon polyps; E11.9 Type 2 diabetes mellitus without complications; I10 Essential (primary) hypertension; E78.5 Hyperlipidemia, unspecified; G47.33 Obstructive sleep apnea (adult) (pediatric); Z99.89 Dependence on other enabling machines and devices; E66.01 Morbid (severe) obesity due to excess calories; Z68.38 Body mass index [BMI] 38.0-38.9, adult; Z90.49 Acquired absence of other specified parts of digestive tract; Z79.02 Long term (current) use of antithrombotics/antiplatelets; Z79.85 Long-term (current) use of injectable non-insulin antidiabetic drugs; Z79.899 Other long term (current) drug therapy
CPT/HCPCS: G0121; 82947; J2704

== ENCOUNTER → 2023-08-02 06:41 | Outpatient (BNV) | payer MEDICARE, SELFPAY | PROVIDERS: PCP Internal Medicine; Visit Provider Internal Medicine Gastroenterology | DX: Z12.11 Encounter for screening for malignant neoplasm of colon (principal); Z85.038 Personal history of other malignant neoplasm of large intestine; K64.0 First degree hemorrhoids | CPT/HCPCS: G0105 ==

== ENCOUNTER 2023-09-20 10:44 | Outpatient (AMB) | payer MEDICARE, SELFPAY ==
[2023-09-20 10:48] VITALS: BP 142/83; PULSE 73; BMI 38.2
--- NOTE | 2023-09-20 10:48 | A.OFFVIS_ITS ---
Intake Vital Signs 09/20/23 10:48 Height 5 ft 10 in Weight 266 lb 5.094 oz BMI 38.2 BP 142/83 H Blood Pressure Location Lt brachial Position Sitting Pulse 73 Intake Visit Reasons: Follow Up Colonoscopy Intake Note: Patient present to in office visit today in follow up colonoscopy. CC: Patient underwent colonoscopy by Dr. Sanchez on 08/02/23. Patient reports doing well and denies having any GI concerns today. 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 Patient was seen earlier this month 04/16: Briefly, patient was seen in the emergency room last month for abdominal pain ongoing for 2 days primarily in the right lower quadrant associated with nausea and vomiting. CT abdomen and pelvis without contrast showed enlarged and dilated appendix with surrounding fatty stranding. However, the appearance was atypical, and based on imaging, mucocele was suspected. Patient was seen by General surgery, Dr. Alfonso. Underwent laparoscopic appendectomy on 03/28. Intraoperatively, he was found to have perforated necrotic appendicitis with free fluid in the abdomen along with a right pericolic abscess. This necessitated MARY drain placement as well. That has since been removed. Path report was positive for appendiceal adenocarcinoma, see details below and results section. Patient tells me that he had a colonoscopy in 2009 and [facility] that was done around the time he had a gluteal abscess. He is unsure of the details of the colonoscopy, in fact did not recall this colonoscopy, until he was reminded by his primary care provider at a recent visit. In terms of his symptoms, he denies any abdominal pain, nausea, vomiting, changes in appetite, unintentional weight loss. He does endorse frequent bowel movements, especially after meals. Denies any blood in stool. Labs from the admission were personally reviewed and were notable for mild anemia. In addition, he was also noted to have low platelet count. Patient does not smoke. Drinks occasionally. There is no family history of colon cancer or colon polyps that he knows of. No family history. It of colitis or Crohn's disease. 05/12/22: In the interim has undergone a complete colonoscopy that showed a large polyp overlying the appendiceal orifice. Biopsies show LGD adenoma. The large polyp was not removed as I did not want to risk perforation stacey since the patient is planned for a R hemicolectomy regardless. In addition, he also had an area of irregular nodular mucosa in ascending colon - bx show hyperplastic changes. Miniscule TA in cecum. No synchronous lesions were seen on this exam. Patient reports no abdominal pain, nausea, vomiting, changes in appetite. Bowel movements are regular. He has been seen by Dr Duran and has been scheduled for surgery next month. 06/01/22: Underwent R hemicolectomy with ileocolonic anastomosis (Dr Duran). Adenoca invading the serosa with 4/14 + nodes. Had recurrent admissions after this for intra-abdominal infections. 08/02/23: [place] (Dr Sanchez): No polyps. Internal hemorrhoids. Mild erythema at anastomosis. 09/20/23: He is here for follow-up after his colonoscopy. Has also been seen by Dr. Murguia and completed his adjuvant chemotherapy in March 2023. CT chest/abd/pel from May without any disease recurrence. Has a rpeat follow up with her next month. Results of colo reviewed and reassuring. [facility] Medical History History of colon cancer Infected cyst of skin Cellulitis of abdominal wall Eye inflammation Sleep apnea Ambulates with cane Back pain due to injury Morbid obesity Umbilical hernia Obesity (BMI 30-39.9) Dyslipidemia Diabetic nephropathy associated with type 2 diabetes mellitus Epidermal cyst HTN (hypertension) Diabetes type 2, controlled Surgical History (Updated 09/20/23 @ 11:05 by AFSHAN Madsen) History of colon resection H/O colonoscopy S/P appendectomy History of umbilical hernia repair (~01/08/22) Hx of removal of cyst Family History Father Diabetes Heart disease Mother Diabetes Heart disease Other No family history of cancer Social History Household Members: Spouse Housing: Apartment Are you a primary healthcare economics manager to a significant other at home: No Do you presently have visiting nurse or other home services: Yes Alcohol intake: never Comment: Ofirmev infusing at time of xfer Patient Tobacco Use Status: Never used Tobacco service: No Current occupational status: disabled Review of Systems Const All systems reviewed & are unremarkable except as noted in HPI and below Physical Exam Vital Signs: BMI result Body Mass Index 38.2 Gen appear: NAD, well nourished HEENT: no icterus, no cervical lymphadenopathy Chest: clear to auscultation CVS: Regular S1/S2 Abd: soft, nontender, nondistended Ext: no peripheral edema Neuro: A/Ox3, noted to move all extremities spontaneously Assessment & Plan Assessment & Plan (1) Primary appendiceal adenocarcinoma: Code(s): C18.1 - Malignant neoplasm of appendix (2) Personal history of colonic polyps: Code(s): Z86.010 - Personal history of colonic polyps Plan Will need to cont surveillance colonoscopy for personal hx of adenoca. This will be due by the end of 2024. Reminder set, bulletin board updated. He was also counseled to have his FDRs get screened for colon cancer at 40y.o. Follow up with GI PRN in the meanwhile. Coding Level of Care Code Est Pt Level 3 (11122) Diagnoses Primary appendiceal adenocarcinoma C18.1 Personal history of colonic polyps Z86.010
== END 2023-09-20 12:43 | disposition home or self-care (01) ==
PROVIDERS: PCP Internal Medicine; Visit Provider Internal Medicine
DX: C18.1 Malignant neoplasm of appendix (principal); Z86.010 Personal history of colon polyps
CPT/HCPCS: 99213

== ENCOUNTER → 2023-09-20 10:44 | Outpatient (BNVA) | payer MEDICARE, SELFPAY | PROVIDERS: PCP Internal Medicine; Visit Provider Internal Medicine | DX: C18.1 Malignant neoplasm of appendix (principal); Z86.010 Personal history of colon polyps | CPT/HCPCS: 99212 ==

== ENCOUNTER 2023-11-22 11:36 | Outpatient (REF) | payer MEDICARE, SELFPAY ==
--- NOTE | ~2023-11-22 | CT_ITS ---
EXAMINATION: CT ABDOMEN AND PELVIS WITH CONTRAST CLINICAL INFORMATION: surveillance for colon ca COMPARISON: CT abdomen pelvis May 26, 2023 TECHNIQUE: Multidetector volumetric images were obtained from the superior aspect of the liver through the pubic symphysis following administration 85 mL of Omnipaque 350 intravenous contrast. Sagittal and coronal reformatted images were obtained on the technologist's workstation. Oral contrast: No This CT examination was performed using dose optimization techniques as appropriate, variously including the following: *Automated exposure control *Adjustment of mA and/or kV according to patient size (this includes techniques or standardized protocols for targeted exams where dose is matched to indication/reason for exam; i.e. extremities or head) *Use of iterative reconstruction technique DLP: 729 mGy-cm FINDINGS: LUNG BASES: The visualized lung bases are unremarkable. LIVER, GALLBLADDER, AND BILIARY TREE: Mild diffuse low attenuation of liver parenchyma with fatty change. No new or suspicious liver lesion. Stable 6 mm hypodensity dome right lobe of liver axial image 04/12 series 3. The gallbladder is unremarkable with no evidence of radiopaque gallstones, gallbladder wall thickening, or obvious pericholecystic inflammatory changes. PANCREAS: Unremarkable. SPLEEN: Unremarkable. ADRENAL GLANDS: Unremarkable. KIDNEYS AND URETERS: The kidneys are normal in size, shape, and attenuation. No hydronephrosis, hydroureter, or calculi seen. No perinephric stranding. BLADDER: Unremarkable. GASTROINTESTINAL TRACT: Status post right hemicolectomy. No acute change of the bowel. No bowel obstruction. No bowel wall thickening or edema. No evidence, colonic mass. The stomach and small bowel loops are unremarkable. MESENTERY: No mesenteric mass or inflammation. No ascites. ABDOMINAL WALL: Stable appearance of fat-containing ventral wall hernia multiple small pockets of herniation through the midline ventral wall. No involvement of bowel loops. LYMPH NODES: No significant lymphadenopathy. VASCULAR: Unremarkable. PELVIC VISCERA: Prostate measures 5.5 cm transverse. Coarse calcifications in prostate OSSEOUS STRUCTURES: No acute osseous abnormality. No suspicious osseous lesions. Multilevel degenerative spondylosis spine. CT/CT abdomen pelvis w IV con IMPRESSION: 1. Status post right hemicolectomy. No evidence of recurrent tumor or metastatic change. 2. ventral wall hernia containing fat. 3. Mild diffuse fatty change of liver. Fleischner guidelines were followed.
[2023-11-22] MEDS: iohexoL 350 MG/ML 75 ML INFUS..BTL 85 ML IV (12:39)
== END 2023-11-22 11:37 | disposition home or self-care (01) ==
LOC: HO.CT 11:36
PROVIDERS: PCP Internal Medicine; Visit Provider Internal Medicine
DX: C18.1 Malignant neoplasm of appendix (principal)
CPT/HCPCS: 74177; Q9967

== ENCOUNTER 2024-04-09 14:00 | Outpatient (AMB) | payer MEDICARE, SELFPAY ==
[2024-04-09 14:03] VITALS: BP 134/73; PULSE 62; BMI 37.6
--- NOTE | 2024-04-09 14:03 | MHC.OFFVIS ---
Vital Signs 04/09/24 14:03 Height 5 ft 10 in Weight 262 lb 5.601 oz BMI 37.6 BP 134/73 Blood Pressure Location Lt brachial Position Sitting Pulse 62 Intake Visit Reasons: Rectal Bleeding Intake Note: Titus presents in the office as as a new patient for rectal bleeding. CC: He states that he was having the bleeding in February. IT was severe in February. yesterday he had a very little bit and this morning he noticed a little as well. He will get a lot of diarrhea. 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 Patient was seen earlier this month 04/16: Briefly, patient was seen in the emergency room last month for abdominal pain ongoing for 2 days primarily in the right lower quadrant associated with nausea and vomiting. CT abdomen and pelvis without contrast showed enlarged and dilated appendix with surrounding fatty stranding. However, the appearance was atypical, and based on imaging, mucocele was suspected. Patient was seen by General surgery, Dr. Alfonso. Underwent laparoscopic appendectomy on 03/28. Intraoperatively, he was found to have perforated necrotic appendicitis with free fluid in the abdomen along with a right pericolic abscess. This necessitated MARY drain placement as well. That has since been removed. Path report was positive for appendiceal adenocarcinoma, see details below and results section. Patient tells me that he had a colonoscopy in 2009 and [facility] that was done around the time he had a gluteal abscess. He is unsure of the details of the colonoscopy, in fact did not recall this colonoscopy, until he was reminded by his primary care provider at a recent visit. In terms of his symptoms, he denies any abdominal pain, nausea, vomiting, changes in appetite, unintentional weight loss. He does endorse frequent bowel movements, especially after meals. Denies any blood in stool. Labs from the admission were personally reviewed and were notable for mild anemia. In addition, he was also noted to have low platelet count. Patient does not smoke. Drinks occasionally. There is no family history of colon cancer or colon polyps that he knows of. No family history. It of colitis or Crohn's disease. 05/12/22: In the interim has undergone a complete colonoscopy that showed a large polyp overlying the appendiceal orifice. Biopsies show LGD adenoma. The large polyp was not removed as I did not want to risk perforation stacey since the patient is planned for a R hemicolectomy regardless. In addition, he also had an area of irregular nodular mucosa in ascending colon - bx show hyperplastic changes. Miniscule TA in cecum. No synchronous lesions were seen on this exam. Patient reports no abdominal pain, nausea, vomiting, changes in appetite. Bowel movements are regular. He has been seen by Dr Duran and has been scheduled for surgery next month. 06/01/22: Underwent R hemicolectomy with ileocolonic anastomosis (Dr Duran). Adenoca invading the serosa with 4/14 + nodes. Had recurrent admissions after this for intra-abdominal infections. 08/02/23: [place] (Dr Sanchez): No polyps. Internal hemorrhoids. Mild erythema at anastomosis. 09/20/23: He is here for follow-up after his colonoscopy. Has also been seen by Dr. Murguia and completed his adjuvant chemotherapy in March 2023. CT chest/abd/pel from May without any disease recurrence. Has a rpeat follow up with her next month. Results of colo reviewed and reassuring. 04/09/24: Here for rectal bleeding that started a few months ago. Reports one episode in summer around February while he was on a cruise. Reports lasted for almost a week with rectal bleeding noted with each BM despite having a normal/soft BM. This was not assoc with any abd pain, N,V. Does report occ diarrhea. Has hx of appendiceal adenoca s/p hemicolectomy. Saw his oncologist and reported above who got blood work - normal, and referred him to us for further evaluation. [facility] Medical History History of colon cancer Infected cyst of skin Cellulitis of abdominal wall Eye inflammation Sleep apnea Ambulates with cane Back pain due to injury Morbid obesity Umbilical hernia Obesity (BMI 30-39.9) Dyslipidemia Diabetic nephropathy associated with type 2 diabetes mellitus Epidermal cyst HTN (hypertension) Diabetes type 2, controlled Surgical History History of colon resection H/O colonoscopy S/P appendectomy History of umbilical hernia repair (~01/08/22) Hx of removal of cyst Family History Father Diabetes Heart disease Mother Diabetes Heart disease Other No family history of cancer Social History Household Members: Spouse Housing: Apartment Are you a primary palliative care physician to a significant other at home: No Do you presently have visiting nurse or other home services: Yes Alcohol intake: never Comment: Ofirmev infusing at time of xfer Patient Tobacco Use Status: Never used Tobacco Use of substances other than those prescribed or required for medical reasons: No Have you been hit, kicked, punched, or otherwise hurt by someone within the past year? If so, by whom?: No Are you DNR?: No Advance Directives: No Advance Directives Information Provided: Yes Recently lost weight without trying: No service: No Current occupational status: disabled Review of Systems Const All systems reviewed & are unremarkable except as noted in HPI and below Physical Exam Vital Signs: Last Vital Signs Pulse 62 04/09/24 14:03 BP 134/73 04/09/24 14:03 BMI result Body Mass Index 37.6 No apparent distress Nonicteric Abdomen soft, nondistended Alert and oriented x3, normal gait Assessment & Plan Assessment & Plan (1) Primary appendiceal adenocarcinoma: Code(s): C18.1 - Malignant neoplasm of appendix Category: Medical (2) Personal history of colonic polyps: Code(s): Z86.0100 - Personal history of colon polyps, unspecified Plan Reviewed with the pt that based on description appears to have had hemorrhoidal bleeding. Other ddx include AVMs, SURS. Malignancy remains on Ddx given high risk due to personal hx. Plan: - Recheck CBC - Urgent colo to be booked - PEG prep instructions reveiwed with the pt. FOllow up after colo. Orders: Orders Complete Blood Count no Diff 04/09/24 Z85.038 - Personal history of other malignant neoplasm of large intestine Medications: New peg 3350-electrolytes 236-22.74-6.74 -5.86 gram (Golytely) as per split prep instructions, until fecal effluent is clear 240 mL PO Q10M 4,000 mL 0RF colonoscopy Coding Level of Care Code Est Pt Level 4 (20701) Diagnoses Primary appendiceal adenocarcinoma C18.1 Personal history of colonic polyps Z86.0100
== END 2024-04-09 14:48 | disposition home or self-care (01) ==
PROVIDERS: PCP Internal Medicine; Visit Provider Internal Medicine
DX: C18.1 Malignant neoplasm of appendix (principal); K62.5 Hemorrhage of anus and rectum
CPT/HCPCS: 99214

== ENCOUNTER → 2024-04-09 14:00 | Outpatient (BNVA) | payer MEDICARE, SELFPAY | PROVIDERS: PCP Internal Medicine; Visit Provider Internal Medicine | DX: C18.1 Malignant neoplasm of appendix (principal); R19.7 Diarrhea, unspecified; Z86.010 Personal history of colon polyps; Z85.038 Personal history of other malignant neoplasm of large intestine | CPT/HCPCS: 99212 ==

== ENCOUNTER 2024-04-24 09:34 | Outpatient (REF) | payer MEDICARE, SELFPAY ==
[2024-04-24 09:48] LABS: MANUAL DIFF FLAG NO
[2024-04-24 10:54] LABS: Basophils Percent Auto 0.4 % (0-2); Eosinophils Absolute Auto 0.1 X10*3/uL (0.0-0.4); Eosinophils Percent Auto 2.1 % (0-4); Hematocrit 42.9 % (42.0-52.0); Hemoglobin 13.6 g/dl (14.0-18.0); Imm Gran Abs Auto 0.05 X10*3/uL (0.00-0.03); Imm Gran Pct Auto 0.9 % (0.0-0.4); Lymphocytes Absolute Auto 1.5 X10*3/uL (1.2-4.9); Lymphocytes Percent Auto 27.3 % (20-40); Mean Corpuscular HGB Conc 31.7 g/dl (31.0-36.0); Mean Corpuscular Hemoglobin 28.2 pg (27.0-33.0); Monocytes Absolute Auto 0.4 X10*3/uL (0.1-1.2); Monocytes Percent Auto 8.3 % (2-11); Neutrophils Absolute Auto 3.2 x10*3/uL (2.0-8.3); Platelet Count 131 X10*3/uL (160-400); Red Blood Count 4.82 X10*6/uL (4.60-5.80); Red Cell Distribution Width 13.4 % (11.0-16.0); White Blood Count 5.3 X10*3/uL (4.8-10.8)
[2024-04-24 11:15] LABS: Appearance Urine Clear; Color Urine Yellow; Glucose Urine UA Negative (Negative); Leukocyte Esterase Urine Negative (Negative); Nitrite Urine Negative (Negative); PH 5.5 (5.0-9.0); UMIC TRIGGER UA YES; Urine Blood Negative (Negative); Urine Ketones Negative (Negative); Urine Protein 30 (1+) mg/dL (Neg-Trace)
[2024-04-24 11:19] LABS: Bacteria Urine None Seen (None Seen); Hyaline Casts Urine 0-2 /LPF (0-2); RBC Urine 0-2 /HPF (0-2); Squamous Epithelial Cell Urine 0-2 /HPF (0-2); WBC Urine 0-5 /HPF (0-5)
[2024-04-24 11:26] LABS: Estimated Average Glucose 180 mg/dL; Hemoglobin A1c % 7.9 % (<6.0)
[2024-04-24 12:03] LABS: Alanine Aminotransferase 26 U/L (0-40); Albumin Level 3.9 g/dL (3.5-5.0); Alkaline Phosphatase 96 U/L (39-117); Anion Gap 13 (12-20); Aspartate Amino Transferase 21 U/L (5-37); Bilirubin Total 0.3 mg/dL (0.0-1.0); Blood Urea Nitrogen 10 mg/dL (9-16); Calcium 9.2 mg/dL (8.4-10.2); Carbon Dioxide 29 mmol/L (22-29); Chloride 107 mmol/L (96-108); Cholesterol 139 mg/dL (<200); Estimated Glomerular Filt Rate > 60; Glucose Random 214 mg/dL (60-115); HDL Cholesterol 51 mg/dL (>40); LDL Cholesterol Calculated 69 mg/dL (<100); Potassium 3.9 mmol/L (3.3-5.1); Sodium 145 mmol/L (135-145); Total Protein 6.7 g/dL (6.5-8.0); Triglycerides 99 mg/dL (<150)
[2024-04-24 12:08] LABS: TSH reflex Free T4 1.34 uIU/mL (0.32-4.0)
[2024-04-24 12:27] LABS: Creatinine Urine 177.83 mg/dL; Microalbum/Creatinine Ratio Ur 90.5 ug/mg cr (<30)
== END 2024-04-24 09:35 | disposition home or self-care (01) ==
LOC: HO.LAB 09:34
PROVIDERS: PCP Internal Medicine; Visit Provider Physician Assistant Medical
DX: C18.2 Malignant neoplasm of ascending colon (principal); D37.3 Neoplasm of uncertain behavior of appendix; E11.65 Type 2 diabetes mellitus with hyperglycemia; F33.1 Major depressive disorder, recurrent, moderate; G43.009 Migraine without aura, not intractable, without status migrainosus; G47.00 Insomnia, unspecified; I13.10 Hypertensive heart and chronic kidney disease without heart failure, with stage 1 through stage 4 chronic kidney disease, or unspecified chronic kidney disease
CPT/HCPCS: 36415; 80053; 80061; 81001; 82043; 82570; 83036; 84443; 85025

== ENCOUNTER 2024-06-14 12:37 | Day surgery (SDC) | payer MEDICARE, SELFPAY ==
[2024-06-12 14:24] VITALS: BMI 39.0
--- NOTE | 2024-06-13 09:40 | P.CONAN_ITS ---
Documented by User: Cheryl Ferrara NP 06/13/24 09:41 HPI - Anesthesia Eval Consult details Narrative: 58yo M for Colonoscopy PMFSH Active Problems Active Problems: All Active Problems Prolonged QT interval (Acute) History of colon cancer (Acute) Infected cyst of skin (Acute) Cellulitis of abdominal wall (Acute) Intra-abdominal abscess (Acute) S/P right colectomy (Acute) JENNIFER (acute kidney injury) (Acute) Varicose veins of right lower extremity with inflammation (Acute) KYM (obstructive sleep apnea) (Acute) Primary appendiceal adenocarcinoma (Chronic) Diarrhea (Acute) Morbid obesity (Acute) Umbilical hernia (Acute) Obesity (BMI 30-39.9) (Acute) Dyslipidemia (Acute) HTN (hypertension) (Acute) Diabetic nephropathy associated with type 2 diabetes mellitus (Acute) Epidermal cyst (Acute) Diabetes type 2, controlled (Acute) Past Medical History Medical History History of colon cancer Infected cyst of skin Cellulitis of abdominal wall Eye inflammation Sleep apnea Ambulates with cane Back pain due to injury Morbid obesity Umbilical hernia Obesity (BMI 30-39.9) Dyslipidemia Diabetic nephropathy associated with type 2 diabetes mellitus Epidermal cyst HTN (hypertension) Diabetes type 2, controlled Family History Family History Father Diabetes Heart disease Mother Diabetes Heart disease Other No family history of cancer Family history of problems with anesthesia: No Surgical History Surgical History History of colon resection H/O colonoscopy S/P appendectomy History of umbilical hernia repair (~01/08/22) Hx of removal of cyst History of Problems with Anesthesia: No Social History Social History Household Members: Spouse Housing: Apartment Are you a primary career coach to a significant other at home: No Do you presently have visiting nurse or other home services: Yes Alcohol intake: never Comment: Ofirmev infusing at time of xfer Patient Tobacco Use Status: Never used Tobacco Advance Directives: No Advance Directives Information Provided: Yes service: No Current occupational status: disabled Meds Allergies Allergy/AdvReac Type Severity Reaction Status Date / Time lisinopril [LISINOPRIL] Allergy Mild RASH Verified 04/09/24 14:07 oxaliplatin Allergy Shortness Verified 04/09/24 14:07 of Breath Home Medications ?Medication ?Instructions ?Recorded ?Confirmed ?Last Taken ?Type atorvastatin 10 mg tablet 10 mg PO BEDTIME 10/22/20 05/15/24 07/31/22 History carvedilol 12.5 mg tablet 12.5 mg PO Q12H 10/22/20 05/15/24 07/31/22 History cholecalciferol (vitamin D3) 25 25 mcg PO DAILY 10/22/20 05/15/24 07/31/22 History mcg (1,000 unit) capsule trazodone 150 mg tablet 150 mg PO BEDTIME 11/04/20 05/15/24 07/31/22 History sertraline 100 mg tablet 150 mg PO BEDTIME 01/04/22 05/15/24 07/31/22 History meclizine 12.5 mg tablet 1 tab PO Q8H PRN nausea 08/18/22 05/15/24 Unknown History hydrochlorothiazide 25 mg tablet 25 mg PO DAILY 08/02/23 05/15/24 Unknown History buspirone 10 mg tablet 10 mg PO QAM 09/20/23 05/15/24 Unknown History clotrimazole 1 % topical cream 1 appl topical BID 09/20/23 05/15/24 Unknown History topiramate 50 mg capsule,extended 50 mg PO DAILY 09/20/23 05/15/24 Unknown History release 24 hr fluticasone propionate 50 1 - 2 spray intranasal DAILY 04/09/24 05/15/24 Unknown History mcg/actuation nasal spray,suspension exenatide microspheres 2 mg/0.85 2 mg subcut DAILY 05/15/24 05/15/24 Unknown History mL subcutaneous auto-injector (Jewell Rivas) Exam Height,Weight and Vital Signs: Height 5 ft 10 in Weight 123.2 kg Pertinent Lab Results Pertinent Lab Results: Laboratory Tests 04/24/24 09:46 WBC 5.3 Hgb 13.6 L Hct 42.9 Plt Count 131 L Sodium 145 Potassium 3.9 Chloride 107 Carbon Dioxide 29 BUN 10 Creatinine 0.89 Narrative Narrative: EKG 03/2023 NSR Incomp RBBB Assessment and Plan Assessment Anesthesia Assessment: Chart Reviewed Final Anesthetic Review Family History of Problems with Anesthesia: No History of Problems with Anesthesia: No Documented by User: Sendy Colon MD 06/14/24 12:51 [facility] Past Medical History Medical History History of colon cancer Infected cyst of skin Cellulitis of abdominal wall Eye inflammation Sleep apnea Ambulates with cane Back pain due to injury Morbid obesity Umbilical hernia Obesity (BMI 30-39.9) Dyslipidemia Diabetic nephropathy associated with type 2 diabetes mellitus Epidermal cyst HTN (hypertension) Diabetes type 2, controlled Family History Family History Father Diabetes Heart disease Mother Diabetes Heart disease Other No family history of cancer Surgical History Surgical History History of colon resection H/O colonoscopy S/P appendectomy History of umbilical hernia repair (~01/08/22) Hx of removal of cyst Social History Social History Household Members: Spouse Housing: Apartment Are you a primary career coach to a significant other at home: No Do you presently have visiting nurse or other home services: Yes Alcohol intake: never Comment: Ofirmev infusing at time of xfer Patient Tobacco Use Status: Never used Tobacco Advance Directives: No Advance Directives Information Provided: Yes service: No Current occupational status: disabled Meds Allergies Allergy/AdvReac Type Severity Reaction Status Date / Time lisinopril [LISINOPRIL] Allergy Mild RASH Verified 04/09/24 14:07 oxaliplatin Allergy Shortness Verified 04/09/24 14:07 of Breath Home Medications ?Medication ?Instructions ?Recorded ?Confirmed ?Last Taken ?Type atorvastatin 10 mg tablet 10 mg PO BEDTIME 10/22/20 05/15/24 07/31/22 History carvedilol 12.5 mg tablet 12.5 mg PO Q12H 10/22/20 05/15/24 07/31/22 History cholecalciferol (vitamin D3) 25 25 mcg PO DAILY 10/22/20 05/15/24 07/31/22 History mcg (1,000 unit) capsule trazodone 150 mg tablet 150 mg PO BEDTIME 11/04/20 05/15/24 07/31/22 History sertraline 100 mg tablet 150 mg PO BEDTIME 01/04/22 05/15/24 07/31/22 History meclizine 12.5 mg tablet 1 tab PO Q8H PRN nausea 08/18/22 05/15/24 Unknown History hydrochlorothiazide 25 mg tablet 25 mg PO DAILY 08/02/23 05/15/24 Unknown History buspirone 10 mg tablet 10 mg PO QAM 09/20/23 05/15/24 Unknown History clotrimazole 1 % topical cream 1 appl topical BID 09/20/23 05/15/24 Unknown History topiramate 50 mg capsule,extended 50 mg PO DAILY 09/20/23 05/15/24 Unknown History release 24 hr fluticasone propionate 50 1 - 2 spray intranasal DAILY 04/09/24 05/15/24 Unknown History mcg/actuation nasal spray,suspension exenatide microspheres 2 mg/0.85 2 mg subcut DAILY 05/15/24 05/15/24 Unknown History mL subcutaneous auto-injector (Jewell Rivas) Exam Airway Mallampati Class: III TM Dist: >3cm Neck ROM: Full Heart: rrr Lungs: cta Assessment and Plan Assessment Anesthesia Assessment: Anesthesia Plan Discussed Final Anesthetic Review NPO: Yes ASA Class: III Final Preanesthetic Review: No Changes in Pt Med Stat, Meds/Allgs Chart Reviewed, Consent Obtained/Reviewed and Anes Risks/Benef Reviewed Patient Risk: Intermediate Procedure Risk: Low Anesthetic Plan Anesthetic Plan: MAC: Disposition: Standard PACU
[2024-06-14 12:47] VITALS: BP 161/88; PULSE 83; RESP 16; TEMP 36.8; O2SAT 97; BMI 38.0
[2024-06-14] MEDS: Lactated Ringers 1,000 ML 100 ML IVCONT (13:05)
--- NOTE | 2024-06-14 13:16 | MHC.SHP ---
Pre-Procedural Eval Section A - 24 Hr Update-Section A only Date of Service: 06/14/24 Section B - Complete if H&P > 30 days Chief Complaint: Hemorrhage of anus and rectum Details of Present Illness: History of colon cancer Infected cyst of skin Cellulitis of abdominal wall Eye inflammation Sleep apnea Ambulates with cane Back pain due to injury Morbid obesity Umbilical hernia Obesity (BMI 30-39.9) Dyslipidemia Diabetic nephropathy associated with type 2 diabetes mellitus Epidermal cyst HTN (hypertension) Diabetes type 2, controlled Surgical History History of colon resection H/O colonoscopy S/P appendectomy History of umbilical hernia repair (~01/08/22) Hx of removal of cyst Present Medications: see Short Stay Collaborative assessment Allergies: Allergies Allergy/AdvReac Type Severity Reaction Status Date / Time lisinopril [LISINOPRIL] Allergy Mild RASH Verified 04/09/24 14:07 oxaliplatin Allergy Shortness Verified 04/09/24 14:07 of Breath Review of Systems Review of Systems Comment: Ten point ROS negative Exam Exam Comment: Gen appear: No acute distress HEENT: no icterus Chest: No overt resp distress Abd: soft, nontender, nondistended Psych: Stable affect, answering questions appropriately Neuro: A/Ox3 noted to move all extremities spontaneously Ext: no peripheral edema Plan Diagnosis/Plan: Unchanged I have reviewed the history and physical and performed a pertinent physical examination on my patient. No changes have occurred unless specified. Time Spent With Patient Time: Total time managing care of this patient today ____ minutes.
[2024-06-14 13:56] LABS: Glucose, Whole Blood 121 mg/dL (60-115)
[2024-06-14 14:21] VITALS: BP 121/77; PULSE 89; RESP 16; TEMP 36.8; O2SAT 93
--- NOTE | 2024-06-14 14:25 | P.OPN-COLO_ITS ---
Colonoscopy Operative Note Operative Note Date of Service: 06/14/24 Narrative: Procedure: Colonoscopy Indication: Rectal bleeding, diarrhea, hx of appendiceal adenoca Endoscopist: Jil Robles MD Anesthesia Provider: Jennifer Garcia CRNA Anesthesia type: MAC Instrument: Olympus [id number]-[id number] Consent: Indication, risks vs benefits, and alternatives were discussed with the patient who gave written informed consent to proceed. EKG, pulse, pulse oximetry and blood pressure were monitored throughout the procedure. Please see anesthesia flowsheet. Procedure: The patient was brought to the procedure room and placed in the left lateral decubitus position. IV medications were administered by the anesthesia provider in attendance. A digital rectal exam was performed which was pos for ext hemorrhoids A distal attachment cap was affixed to the tip of the colonoscope which was then inserted through the anus and advanced through the colon to the ileocolonic anastomosis at 70 cm,and christian-terminal ileum. Mucosa was carefully examined under high definition white light as the instrument was slo wly withdrawn in a retrograde panoramic fashion. Retroflexion was performed in rectum. The procedure was not difficult. There were no immediate obvious complications. The quality of the prep was BBPS: N/A+2+3 = adequate Withdrawal time 11 minutes. Limitations: No limitations. Findings: Mucosa: Normal mucosa in the colon visualized. The ileocolonic anastomosis appeared healthy. Terminal ileum appeared normal to the extent examined. Cold forceps biopsies were taken from the left colon for histology. Protruding lesions: * Large internal hemorrhoids without stigmata of recent bleeding. Impression: 1. Normal colon, ileocolonic anastomosis, and ileal mucosa 2. Internal and external hemorrhoids Recommendations: - Follow path results. - Intermittent rectal bleeding was likely from hemorrhoids, which has since resolved. - Repeat colonoscopy in 3 years for adenoca surveillance.
[2024-06-14 14:36] VITALS: BP 139/99; PULSE 91; RESP 18; TEMP 36.7; O2SAT 95
== END 2024-06-14 14:58 | disposition home or self-care (01) ==
PROVIDERS: PCP Internal Medicine; Visit Provider Internal Medicine
PROC: 0DJD8ZZ Inspection of Lower Intestinal Tract, Via Natural or Artificial Opening Endoscopic (ICD-10-PCS; CPT 45378; principal; 2024-06-14 14:10)
DX: K62.5 Hemorrhage of anus and rectum (principal); Z86.0101 Personal history of adenomatous and serrated colon polyps; R19.7 Diarrhea, unspecified; Z85.89 Personal history of malignant neoplasm of other organs and systems; Z90.49 Acquired absence of other specified parts of digestive tract; Z98.0 Intestinal bypass and anastomosis status; K64.8 Other hemorrhoids; K64.4 Residual hemorrhoidal skin tags; I10 Essential (primary) hypertension; E78.5 Hyperlipidemia, unspecified; E11.21 Type 2 diabetes mellitus with diabetic nephropathy; G47.33 Obstructive sleep apnea (adult) (pediatric); E66.9 Obesity, unspecified; Z68.38 Body mass index [BMI] 38.0-38.9, adult; Z79.51 Long term (current) use of inhaled steroids; Z79.899 Other long term (current) drug therapy; Z99.89 Dependence on other enabling machines and devices; Z88.8 Allergy status to other drugs, medicaments and biological substances
CPT/HCPCS: 45380; 82947; 88305; J2003; J2704

== ENCOUNTER → 2024-06-14 12:37 | Outpatient (BNV) | payer MEDICARE, SELFPAY | PROVIDERS: PCP Internal Medicine; Visit Provider Internal Medicine | DX: K62.5 Hemorrhage of anus and rectum (principal); R19.7 Diarrhea, unspecified; Z85.038 Personal history of other malignant neoplasm of large intestine; K64.8 Other hemorrhoids | CPT/HCPCS: 45380 ==

== ENCOUNTER 2024-06-29 12:29 | Outpatient (AMB) | payer MEDICARE, SELFPAY ==
--- NOTE | 2024-06-29 12:40 | A.OFFVIS_ITS ---
Vital Signs 06/29/24 12:42 Height 5 ft 10 in Weight 264 lb BMI 37.9 BP 137/77 Blood Pressure Location Lt brachial Position Sitting Pulse 87 Intake Visit Reasons: s/p egd/colon Intake Note: Patient follow up for EGD/Colonoscopy results. Patient denies any GI issues for today. 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 Patient was seen earlier this month 04/16: Briefly, patient was seen in the emergency room last month for abdominal pain ongoing for 2 days primarily in the right lower quadrant associated with nausea and vomiting. CT abdomen and pelvis without contrast showed enlarged and dilated appendix with surrounding fatty stranding. However, the appearance was atypical, and based on imaging, mucocele was suspected. Patient was seen by General surgery, Dr. Alfonso. Underwent laparoscopic appendectomy on 03/28. Intraoperatively, he was found to have perforated necrotic appendicitis with free fluid in the abdomen along with a right pericolic abscess. This necessitated MARY drain placement as well. That has since been removed. Path report was positive for appendiceal adenocarcinoma, see details below and results section. Patient tells me that he had a colonoscopy in 2009 and [facility] that was done around the time he had a gluteal abscess. He is unsure of the details of the colonoscopy, in fact did not recall this colonoscopy, until he was reminded by his primary care provider at a recent visit. In terms of his symptoms, he denies any abdominal pain, nausea, vomiting, changes in appetite, unintentional weight loss. He does endorse frequent bowel movements, especially after meals. Denies any blood in stool. Labs from the admission were personally reviewed and were notable for mild anemia. In addition, he was also noted to have low platelet count. Patient does not smoke. Drinks occasionally. There is no family history of colon cancer or colon polyps that he knows of. No family history. It of colitis or Crohn's disease. 05/12/22: In the interim has undergone a complete colonoscopy that showed a large polyp overlying the appendiceal orifice. Biopsies show LGD adenoma. The large polyp was not removed as I did not want to risk perforation stacey since the patient is planned for a R hemicolectomy regardless. In addition, he also had an area of irregular nodular mucosa in ascending colon - bx show hyperplastic changes. Miniscule TA in cecum. No synchronous lesions were seen on this exam. Patient reports no abdominal pain, nausea, vomiting, changes in appetite. Bowel movements are regular. He has been seen by Dr Duran and has been scheduled for surgery next month. 06/01/22: Underwent R hemicolectomy with ileocolonic anastomosis (Dr Duran). Adenoca invading the serosa with 4/14 + nodes. Had recurrent admissions after this for intra-abdominal infections. 08/02/23: [place] (Dr Sanchez): No polyps. Internal hemorrhoids. Mild erythema at anastomosis. 09/20/23: He is here for follow-up after his colonoscopy. Has also been seen by Dr. Murguia and completed his adjuvant chemotherapy in March 2023. CT chest/abd/pel from May without any disease recurrence. Has a rpeat follow up with her next month. Results of colo reviewed and reassuring. 04/09/24: Here for rectal bleeding that started a few months ago. Reports one episode in summer around February while he was on a cruise. Reports lasted for almost a week with rectal bleeding noted with each BM despite having a normal/soft BM. This was not assoc with any abd pain, N,V. Does report occ diarrhea. Has hx of appendiceal adenoca s/p hemicolectomy. Saw his oncologist and reported above who got blood work - normal, and referred him to us for further evaluation. 06/14/24 1. Normal colon, ileocolonic anastomosis, and ileal mucosa 2. Internal and external hemorrhoids Recommendations: - Follow path results. - Intermittent rectal bleeding was likely from hemorrhoids, which has since resolved. - Repeat colonoscopy in 3 years for adenoca surveillance. Path: A. Labeled biopsy at anastomosis : Ileal and colonic mucosa with minor crypt distortion, otherwise no specific change; no evidence of malignancy. B. Colon, left, biopsy: Colonic mucosa with lymphoid aggregate and minor crypt distortion, otherwise no specific change; no evidence of malignancy. 06/29/24: Pt reassured of th results. No ongoing GI concerns at this time. Has not any recurrence of bleeding. Starting to exercise and lift weights. Cautioned re safe lifting and avoiding prolonged increased intra-abd pressure so he doesnt aggravate hemorrhoids. Also has ventral hernia. [facility] Medical History History of colon cancer Infected cyst of skin Cellulitis of abdominal wall Eye inflammation Sleep apnea Ambulates with cane Back pain due to injury Morbid obesity Umbilical hernia Obesity (BMI 30-39.9) Dyslipidemia Diabetic nephropathy associated with type 2 diabetes mellitus Epidermal cyst HTN (hypertension) Diabetes type 2, controlled Surgical History History of colon resection H/O colonoscopy S/P appendectomy History of umbilical hernia repair (~01/08/22) Hx of removal of cyst Family History Father Diabetes Heart disease Mother Diabetes Heart disease Other No family history of cancer Social History Household Members: Spouse Housing: Apartment Are you a primary campground caretaker to a significant other at home: No Do you presently have visiting nurse or other home services: Yes Alcohol intake: never Comment: Ofirmev infusing at time of xfer Patient Tobacco Use Status: Never used Tobacco service: No Current occupational status: disabled Review of Systems Const All systems reviewed & are unremarkable except as noted in HPI and below Physical Exam Vital Signs: Last Vital Signs Pulse 87 06/29/24 12:42 BP 137/77 06/29/24 12:42 BMI result Body Mass Index 37.9 No apparent distress Nonicteric Abdomen soft, nondistended Alert and oriented x3, normal gait Assessment & Plan Assessment & Plan (1) Primary appendiceal adenocarcinoma: Code(s): C18.1 - Malignant neoplasm of appendix Category: Medical (2) Personal history of colonic polyps: Code(s): Z86.0100 - Personal history of colon polyps, unspecified (3) Bright red rectal bleeding: Code(s): K62.5 - Hemorrhage of anus and rectum Category: Medical Plan Rectal bleeding was likely secondary to hemorrhoids, as previously clinically suspected. He was again counseled regarding avoidance of lifting heavy weights, constipation and straining. Increase fiber intake. Can use MiraLax and/or senna as needed for constipation. Next colonoscopy for surveillance will be due in 3 years. Reminder set. Follow-up as needed in the meantime Coding Level of Care Code Est Pt Level 3 (60061) Diagnoses Primary appendiceal adenocarcinoma C18.1 Personal history of colonic polyps Z86.0100 Bright red rectal bleeding K62.5
[2024-06-29 12:42] VITALS: BP 137/77; PULSE 87; BMI 37.9
== END 2024-06-29 13:05 | disposition home or self-care (01) ==
PROVIDERS: PCP Internal Medicine; Visit Provider Internal Medicine
DX: C18.1 Malignant neoplasm of appendix (principal); Z86.0100 Personal history of colon polyps, unspecified; K62.5 Hemorrhage of anus and rectum
CPT/HCPCS: 99213

== ENCOUNTER → 2024-06-29 12:29 | Outpatient (BNVA) | payer MEDICARE, SELFPAY | PROVIDERS: PCP Internal Medicine; Visit Provider Internal Medicine | DX: C18.1 Malignant neoplasm of appendix (principal); K62.5 Hemorrhage of anus and rectum; Z86.0100 Personal history of colon polyps, unspecified | CPT/HCPCS: 99212 ==

== ENCOUNTER 2024-07-16 08:54 | Outpatient (REF) | payer MEDICARE, SELFPAY ==
[2024-07-16] MEDS: iohexoL 350 MG/ML 100 ML INFUS..BTL 85 ML IV (09:39)
[2024-07-17 07:05] LABS: Creatinine POC 0.8 mg/dL (0.5-1.4); GFR POC > 60
== END 2024-07-16 08:55 | disposition home or self-care (01) ==
LOC: HO.CT 08:54
PROVIDERS: PCP Internal Medicine; Visit Provider Internal Medicine
DX: C18.1 Malignant neoplasm of appendix (principal)
CPT/HCPCS: 71260; 74177; 82565; Q9967

== ENCOUNTER → 2024-07-16 08:57 | Outpatient (BNV) | payer MEDICARE, SELFPAY | PROVIDERS: PCP Internal Medicine; Visit Provider Radiology Diagnostic Radiology | DX: C18.9 Malignant neoplasm of colon, unspecified (principal) | CPT/HCPCS: 71260; 74177 ==

== ENCOUNTER 2024-09-04 00:11 | Inpatient (IN) | payer MEDICARE, SELFPAY ==
[2024-09-04] VITALS (10 sets, daily range): BP systolic 103–127; BP diastolic 62–78; PULSE 82–107; RESP 14–20; TEMP 36.4–37.1; O2SAT 93–99; BMI 38.6; BMI 37.9
--- NOTE | 2024-09-04 | ECG_ITS ---
Test Reason : DIZZINESS Blood Pressure : */* mmHG Vent. Rate : 95 BPM Atrial Rate : 95 BPM P-R Int : 120 ms QRS Dur : 94 ms QT Int : 364 ms P-R-T Axes : 52 13 22 degrees QTcB Int : 457 ms Normal sinus rhythm Incomplete right bundle branch block Borderline ECG When compared with ECG of 11-Jan-2023 13:16, Incomplete right bundle branch block is now Present Nonspecific T wave abnormality no longer evident in Anterior leads Referred By: Generic ED Physician Electronically Signed By: WASHINGTON TO MD
--- NOTE | ~2024-09-04 | XR_ITS ---
CLINICAL HISTORY: cough ,desats after egd 1 view chest x-ray Comparison: None Findings: Heart size is borderline enlarged. Somewhat low lung volumes. No consolidation, significant pleural effusion or pneumothorax. No acute fracture. Right MediPort with catheter tip at the junction of superior vena cava and right atrium. IMPRESSION: 1. No acute findings. This document has been electronically signed by: Marilou Rouse MD on 09/07/2024 19:05:22
[2024-09-04 00:32] LABS: Glucose, Whole Blood 598 mg/dL (60-115)
--- OUTSIDE RECORDS SUMMARY | 2024-09-04 00:47 | XMS_ITS | Clinical Summary ---
Author Organization Unknown Care Team Providers Care Rewrite Editor Name Role Phone SARAH GONZALES, MARINA Unavailable Concepción LAMAS RN, SARAH Gu Unavailable FAVIOLA JIMENES, WALLPAPERER HELPER, LIYAH dahl Unavailable Payers Payer Name Policy Type Policy Number Effective Date Expira tion Date MEDICAID [facility] [id number] Problems Condition Name Condition Details Condition Category Status Onset Date Resolution Date Last Treatment Date Treating Clinician Comments MAJOR DEPRESSIVE DISORDER, SINGLE EPISODE, MODERATE Active 11-10 00:00: 00 TYPE 2 DIABETES MELLITUS WITHOUT COMPLICATION S Active 11-20 00:00: 00 Allergies, Adverse Reactions, Alerts Allergy Name Allergy Type Status Severity Reaction(s) Onset Date Inactive Date Treating Clinician Comments LISINOPRIL Propensity to adverse reactions Active 11-12 13:42: 21 Medications Ordered Medication Name Filled Medication Name Start Date Stop Date Current Medication? Ordering Clinician Indication Dosage Frequency Signature (SIG) Comments Components losartan 50 mg tablet 09-12 00:00: 00 Yes [id number] Per instruc tions EVERY DAY Per instructio ns EVERY DAY (route: oral) Med Classific ation: Cardiovas cular Therapy Agents sertraline 25 mg tablet -18 00:00: 00 11-19 23:59 :00 No [id number] Per instruc tions AT BEDTIME Per instructio ns AT BEDTIME (route: oral) Med Classific ation: Central Nervous System Agents atorvastati n 10 mg tablet 2-24 00:00: 00 Yes [id number] Per instruc tions EVERYDAY AT BEDTIME Per instructio ns EVERYDAY AT BEDTIME (route: oral) Med Classific ation: Cardiovas cular Therapy Agents amlodipine 10 mg tablet 09-12 00:00: 00 11-19 23:59 :00 No [id number] Per instruc tions EVERY DAY Per instructio ns EVERY DAY (route: oral) Med Classific ation: Cardiovas cular Therapy Agents Vitamin D3 25 mcg (1,000 unit) capsule 3-18 00:00: 00 Yes [id number] Per instruc tions EVERY DAY Per instructio ns EVERY DAY (route: oral) Med Classific ation: Electroly te Balance-N utritiona l Products trazodone 150 mg tablet 2-16 00:00: 00 Yes [id number] 50 mg EVERY DAY AT 50 mg EVERY DAY AT (route: oral) Med Classific ation: Central Nervous System Agents Trulicity 0.75 mg/0.5 mL subcutaneou s pen injector 11-03 00:00: 00 11-19 23:59 :00 No [id number] 1.5 mg WEEKLY 1.5 mg WEEKLY (route: subcutaneo us) Med Classific ation: Endocrine Trulicity 1.5 mg/0.5 mL subcutaneou s pen injector 11-04 00:00: 00 Yes [id number] 1.5 mg WEEKLY 1.5 mg WEEKLY (route: subcutaneo us) Med Classific ation: Endocrine carvedilol 12.5 mg tablet 11-19 00:00: 00 Yes [id number] 12.5 mg 2 TIMES DAILY 12.5 mg 2 TIMES DAILY (route: oral) Med Classific ation: Cardiovas cular Therapy Agents hydrochloro thiazide 25 mg tablet 11-19 00:00: 00 Yes [id number] 25 mg DAILY 25 mg DAILY (route: oral) Med Classific ation: Cardiovas cular Therapy Agents sertraline 50 mg tablet 11-19 00:00: 00 07-14 23:59 :00 No [id number] 50 mg BEDTIME 50 mg BEDTIME (route: oral) Med Classific ation: Central Nervous System Agents zolpidem 10 mg tablet 11-19 00:00: 00 Yes [id number] 10 mg NEEDED 10 mg NEEDED (route: oral) Med Classific ation: Central Nervous System Agents sertraline 50 mg tablet 2020-08 2-04 00:00: 00 Yes [id number] 150 mg DAILY 150 mg DAILY (route: oral) Med Classific ation: Central Nervous System Agents buspirone 5 mg tablet 01-14 00:00: 00 Yes [id number] 1 tablet EVERY AM 1 tablet EVERY AM (route: oral) Med Classific ation: Central Nervous System Agents ibuprofen 600 mg tablet 01-14 00:00: 00 Yes [id number] 1 tablet EVERY 6 HOURS 1 tablet EVERY 6 HOURS (route: oral) Med Classific ation: Analgesic , Anti-infl ammatory or Antipyret ic Percocet 5 mg-325 mg tablet 01-14 00:00: 00 02-08 23:59 :00 No [id number] 1 tablet EVERY 6 HOURS 1 tablet EVERY 6 HOURS (route: oral) Med Classific ation: Analgesic , Anti-infl ammatory or Antipyret ic amoxicillin 875 mg-potassiu m clavulanate 125 mg tablet 04-02 00:00: 00 04-09 23:59 :00 No [id number] 1 tablet EVERY 12 HOURS 1 tablet EVERY 12 HOURS (route: oral) Med Classific ation: Anti-Infe ctive Agents Immunizations Ordered Immunization Name Filled Immunization Name Date Status Comments Refusal Reason COVID-19, COVID-19 2021-09-15 00:00:00 COVID-19, COVID-19 2021-08-03 00:00:00 COVID-19, COVID-19 2021-08-03 00:00:00 Plan of Treatment Planned Activity Planned Date Details Comments Future Scheduled Test SKILLED NU RSE TO EVALUATE PATIENT, IDENTIFY PRIMARY AND CO-MORBID CONDITIONS CODED PER CODING GUIDELINES, AND DEVELOP PATIENT SPECIFIC PLAN OF CARE THAT INCLUDES PATIENT GOAL FOR HOME HEALTH. CLINICAL SUMMARY (SOC/STEFFANY/RECERT, 10 DAY, 60 DAY) THE PATIENT IS RECEIVING HOMECARE DUE TO MDD, DMII RECENT HOSPITALIZATION/INPATIENT ADMISSION RELATED TO: APPENDICITIS NEW OR CHANGED MEDICATIONS: SEE MED LIST PATIENT LIVING SITUATION/CAREGIVER STATUS: PT LIVES WITH RECENT FALLS: N SUMMARIZE SKILLED NEED: PT RECENTLY DIAGNOSED WITH COLON CANCER. RESECTION OF COLON SCHEDULED FOR 06/01/22. SN ONGOING FOR MED MANAGEMENT AND PREPOUR, WELL ONGOING BH AND MEDICAL STATUS. ADDITIONAL DISCIPLINES NEEDED OR DECLINED ORDERED SERVICES: NOT AT THIS TIME. [code = SKILLED NURSE TO EVALUATE PATIENT, IDENTIFY PRIMARY AND CO-MORBID CONDITIONS CODED PER CODING GUIDELINES, AND DEVELOP PATIENT SPECIFIC PLAN OF CARE THAT INCLUDES PATIENT GOAL FOR HOME HEALTH. CLINICAL SUMMARY (SOC/STEFFANY/RECERT, 10 DAY, 60 DAY) THE PATIENT IS RECEIVING HOMECARE DUE TO MDD, DMII RECENT HOSPITALIZATION/INPATIENT ADMISSION RELATED TO: APPENDICITIS NEW OR CHANGED MEDICATIONS: SEE MED LIST PATIENT LIVING SITUATION/CAREGIVER STATUS: PT LIVES WITH RECENT FALLS: N SUMMARIZE SKILLED NEED: PT RECENTLY DIAGNOSED WITH COLON CANCER. RESECTION OF COLON SCHEDULED FOR 06/01/22. SN ONGOING FOR MED MANAGEMENT AND PREPOUR, WELL ONGOING BH AND MEDICAL STATUS. ADDITIONAL DISCIPLINES NEEDED OR DECLINED ORDERED SERVICES: NOT AT THIS TIME.] Future Scheduled Test SKILLED NU RSE FOR O/A, TEACHING RELATED TO COLON CANCER FOR EARLY IDENTIFICATION OF EXACERBATION OF DISEASE PROCESS. [code = SKILLED NURSE FOR O/A, TEACHING RELATED TO COLON CANCER FOR EARLY IDENTIFICATION OF EXACERBATION OF DISEASE PROCESS.] Future Scheduled Test SKILLED NU RSE FOR O/A OF LOWER EXTREMITIES TO IDENTIFY CHANGES OR LESIONS ASSOCIATED WITH DIABETES MELLITUS FOR EARLY INTERVENTIONS OF COMPLICATIONS. SKILLED NURSE TO PROVIDE INSTRUCTION ON PROPER DIABETIC SKIN/FOOT CARE. [code = SKILLED NURSE FOR O/A OF LOWER EXTREMITIES TO IDENTIFY CHANGES OR LESIONS ASSOCIATED WITH DIABETES MELLITUS FOR EARLY INTERVENTIONS OF COMPLICATIONS. SKILLED NURSE TO PROVIDE INSTRUCTION ON PROPER DIABETIC SKIN/FOOT CARE.] Future Scheduled Test SKILLED NU RSE TO PROVIDE ASSESSMENT AND TEACHING/REINFORCEMENT OF MANAGEMENT OF DEPRESSION INCLUDING DISEASE PROCESS, MEDICATION MANAGEMENT, COPING SKILLS AND IDENTIFY CHANGES ASSOCIATED WITH DEPRESSIVE DISORDERS FOR EARLY INTERVENTION. [code = SKILLED NURSE TO PROVIDE ASSESSMENT AND TEACHING/REINFORCEMENT OF MANAGEMENT OF DEPRESSION INCLUDING DISEASE PROCESS, MEDICATION MANAGEMENT, COPING SKILLS AND IDENTIFY CHANGES ASSOCIATED WITH DEPRESSIVE DISORDERS FOR EARLY INTERVENTION.] Future Scheduled Test SKILLED NU RSE TO PERFORM HOME SAFETY AND FALL ASSESSMENT AND PROVIDE INSTRUCTION TO IMPLEMENT HOME SAFETY AND FALL PREVENTION STRATEGIES. [code = SKILLED NURSE TO PERFORM HOME SAFETY AND FALL ASSESSMENT AND PROVIDE INSTRUCTION TO IMPLEMENT HOME SAFETY AND FALL PREVENTION STRATEGIES.] Future Scheduled Test SKILLED NU RSE TO O/A OF PATIENTS MENTAL/BEHAVIORAL STATUS, ASSESS VITAL SIGNS PER VISIT, ALLOW 2 PRNS FOR MEDICATION MANAGEMENT. [code = SKILLED NURSE TO O/A OF PATIENTS MENTAL/BEHAVIORAL STATUS, ASSESS VITAL SIGNS PER VISIT, ALLOW 2 PRNS FOR MEDICATION MANAGEMENT.] Future Scheduled Test SKILLED NU RSE FOR O/A OF GENERAL HEALTH STATUS OF PAIN, CARDIAC, RESPIRATORY, GASTROINTESTINAL, GENITOURINARY, SKIN, NEUROLOGIC, ENDOCRINE SYSTEMS TO IDENTIFY CHANGES ASSOCIATED WITH EXACERBATION FOR EARLY INTERVENTION OF COMPLICATIONS [code = SKILLED NURSE FOR O/A OF GENERAL HEALTH STATUS OF PAIN, CARDIAC, RESPIRATORY, GASTROINTESTINAL, GENITOURINARY, SKIN, NEUROLOGIC, ENDOCRINE SYSTEMS TO IDENTIFY CHANGES ASSOCIATED WITH EXACERBATION FOR EARLY INTERVENTION OF COMPLICATIONS] Future Scheduled Test SKILLED NU RSE TO PRE-POUR MEDICATION PER MEDICATION LIST WEEKLY. [code = SKILLED NURSE TO PRE-POUR MEDICATION PER MEDICATION LIST WEEKLY.] Future Scheduled Test SKILLED NU RSE FOR O/A AND SKILLED TEACHING RELATED TO MANAGEMENT OF DEPRESSIVE SYMPTOMS AND/OR DEPRESSION INCLUDING PARTICIPATION IN [facility] SPECIALTY PROGRAM. SN TO REPORT SIGNIFICANT CHANGE IN DEPRESSIVE SYMPTOMS TO CLINICAL PROVIDER FOR EARLY INTERVENTION. [code = SKILLED NURSE FOR O/A AND SKILLED TEACHING RELATED TO MANAGEMENT OF DEPRESSIVE SYMPTOMS AND/OR DEPRESSION INCLUDING PARTICIPATION IN [facility] SPECIALTY PROGRAM. SN TO REPORT SIGNIFICANT CHANGE IN DEPRESSIVE SYMPTOMS TO CLINICAL PROVIDER FOR EARLY INTERVENTION.] Future Scheduled Test MEDICATION S WILL BE HELD AND STORED IN LOCKBOX [code = MEDICATIONS WILL BE HELD AND STORED IN LOCKBOX] Future Scheduled Test SKILLED NU RSE MAY PICKUP AND TRANSPORT MEDICATIONS [code = SKILLED NURSE MAY PICKUP AND TRANSPORT MEDICATIONS] Future Scheduled Test SKILLED NU RSE FOR ADMINISTRATION AND TEACHING OF PRESCRIBED INJECTION THERAPY FOR TRULICITY [code = SKILLED NURSE FOR ADMINISTRATION AND TEACHING OF PRESCRIBED INJECTION THERAPY FOR TRULICITY] Goal 2022-06-01 Patient Goal - I WANT TO FEEL BETTER. BE ABLE TO CONCENTRATE AND GET MY MEMORY BACK Goal 2022-03-12 Patient Goal - I WANT TO FEEL BETTER. BE ABLE TO CONCENTRATE AND GET MY MEMORY BACK Goal 2021-11-12 Patient Goal - I WANT TO FEEL BETTER. BE ABLE TO CONCENTRATE AND GET MY MEMORY BACK Goal 2021-07-14 Patient Goal - I WANT TO FEEL BETTER. BE ABLE TO CONCENTRATE AND GET MY MEMORY BACK Goal 2021-05-14 Patient Goal - I WANT TO FEEL BETTER. BE ABLE TO CONCENTRATE AND GET MY MEMORY BACK. 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 Goal 2021-01-15 Patient Goal - I WANT TO FEEL BETTER. BE ABLE TO CONCENTRATE AND GET MY MEMORY BACK. 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 Goal 2021-03-19 Patient Goal - I WANT TO FEEL BETTER. BE ABLE TO CONCENTRATE AND GET MY MEMORY BACK. 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 Goal 2021-09-15 Patient Goal - I WANT TO FEEL BETTER. BE ABLE TO CONCENTRATE AND GET MY MEMORY BACK Goal 2022-01-13 Patient Goal - I WANT TO FEEL BETTER. BE ABLE TO CONCENTRATE AND GET MY MEMORY BACK Goal 2022-05-13 Patient Goal - I WANT TO FEEL BETTER. BE ABLE TO CONCENTRATE AND GET MY MEMORY BACK Goal Provider Goal - A PLAN OF CARE WILL BE ESTABLISHED THAT MEETS PATIENT'S [facility] NEEDS AND INCLUDES PATIENT GOAL FOR HOME HEALTH. Goal Provider Goal - EXACERBATIONS OF GASTROINTESTINAL DISEASE WILL BE PROMPTLY IDENTIFIED AND INTERVENTIONS IMPLEMENTED TO MINIMIZE RISKS TO PATIENT BY END OF EPISODE Goal Provider Goal - CHANGES IN LOWER EXTREMITIES WILL BE IDENTIFIED AND REPORTED TO MD FOR PROMPT INTERVENTION TO PREVENT ASSOCIATED RISKS THROUGHOUT THE CERTIFICATION PERIOD. PATIENT/CAREGIVER WILL VERBALIZE UNDERSTANDING OF PROPER DIABETIC SKIN/FOOT CARE BY THE END OF THE CERTIFICATION PERIOD. Goal Provider Goal - PATIENT/CAREGIVER WILL VERBALIZE/DEMONSTRATE UNDERSTANDING OF THE MANAGEMENT OF DEPRESSION BY THE END OF THE EPISODE AND SYMPTOMS ARE IDENTIFIED AND MANAGED TO MAINTAIN PATIENT SAFETY IN THE HOME Goal Provider Goal - PATIENT/CAREGIVER WILL VERBALIZE/DEMONSTRATE EFFECTIVE HOME SAFETY AND FALL PREVENTION STRATEGIES THROUGHOUT CERTIFICATION PERIOD. Goal Provider Goal - ALTERED MENTAL/BEHAVIORAL STATUS WILL BE IDENTIFIED PROMPTLY AND INTERVENTION INITIATED QUICKLY TO MINIMIZE ASSOCIATED RISKS Goal Provider Goal - CHANGE IN GENERAL HEALTH STATUS WILL BE IDENTIFIED AND REPORTED TO PHYSICIAN FOR PROMPT INTERVENTION TO MINIMIZE ASSOCIATED RISKS THROUGHOUT CERTIFICATION PERIOD. Goal Provider Goal - PATIENT WILL COMPLY WITH MEDICATION WHEN SKILLED NURSE PRE-POURS MEDICATION. Goal Provider Goal - PATIENT WILL REMAIN SAFE WITHOUT DECOMPENSATION IN DEPRESSIVE CONDITION, WHILE MAINTAINING OPTIMAL LEVEL OF MENTAL HEALTH AND WELL BEING. Goal Provider Goal - IN PLACE Goal Provider Goal - NEEDED Goal Provider Goal - PATIENT WILL RECEIVE INJECTION ORDERED. PATIENT/CAREGIVER WILL VERBALIZE/DEMONSTRATE KNOWLEDGE OF INJECTION THERAPY BY THE END OF THE CERTIFICATION PERIOD. Reason for Visit REMAINS INPATIENT AT TIME OF DISCHARGE Encounters Start Date/Time End Date/Time Encounter Type Admission Type Attending [facility] Care Facility Care Department Encounter ID Discharge Date Discharge Status Discharge Condition Discharge Reason Percent Goals Met 2020-11-20 00:00:00 2022-06-01 00:00:00 Outpatient RECERTIFIC ATLIYAH COSTA [facility] [id number] 00:00:00 DISCHARGED /TRANSFERR ED TO A [facility] FOR INPATIENT CARE REMAINS INPATIENT AT TIME OF DISCHARGE REMAINS IN INPATIENT FACILITY AT END OF CERT PERIOD 10.00
[2024-09-04 00:58] LABS: Venous Blood Gas Refer to POC result
[2024-09-04 00:59] LABS: MANUAL DIFF FLAG NO
[2024-09-04 01:01] LABS: Basophils Percent Auto 0.3 % (0-2); Eosinophils Percent Auto 0.5 % (0-4); Hematocrit 29.3 % (42.0-52.0); Hemoglobin 8.5 g/dl (14.0-18.0); Imm Gran Abs Auto 0.02 X10*3/uL (0.00-0.03); Imm Gran Pct Auto 0.3 % (0.0-0.4); Lymphocytes Absolute Auto 1.4 X10*3/uL (1.2-4.9); Lymphocytes Percent Auto 23.8 % (20-40); Mean Corpuscular Hemoglobin 21.3 pg (27.0-33.0); Mean Corpuscular Volume 73.3 fL (80.0-98.0); Mean Platelet Volume 10.9 fL (9.4-12.4); Monocytes Absolute Auto 0.4 X10*3/uL (0.1-1.2); Monocytes Percent Auto 6.7 % (2-11); Neutrophils Percent Auto 68.4 % (45-73); Platelet Count 145 X10*3/uL (160-400); Red Cell Distribution Width 17.1 % (11.0-16.0); White Blood Count 5.8 X10*3/uL (4.8-10.8)
[2024-09-04 01:13] LABS: VBG Base Excess 11.2 mmol/L; VBG HCO3 38 mmol/L (22-26); VBG pCO2 63 mmHg; VBG pH 7.38 (7.32-7.43); VBG pO2 23 mmHg
[2024-09-04 01:22] LABS: Alanine Aminotransferase 20 U/L (0-40); Albumin Level 4.1 g/dL (3.5-5.0); Alkaline Phosphatase 162 U/L (39-117); Anion Gap 15 (12-20); Aspartate Amino Transferase 24 U/L (5-37); Bilirubin Total 0.3 mg/dL (0.0-1.0); Blood Urea Nitrogen 23 mg/dL (9-16); Calcium 9.2 mg/dL (8.4-10.2); Carbon Dioxide 31 mmol/L (22-29); Chloride 92 mmol/L (96-108); Creatinine Clr Calc Pharmacy 61.2; Estimated Glomerular Filt Rate 41; Glucose Random 619 mg/dL (60-115); Potassium 4.2 mmol/L (3.3-5.1); Sodium 134 mmol/L (135-145); Total Protein 7.7 g/dL (6.5-8.0)
--- NOTE | 2024-09-04 02:04 | ED_ITS ---
HPI - Recheck/Abnormal Lab/Rx General Chief Complaint: Recheck/Abnormal Lab/Rx Stated Complaint: dizziness Time Seen by Provider: 09/04/24 01:39 Source: patient, family and old records reviewed Mode of arrival: ambulatory Limitations: no limitations History of Present Illness ED Provider: MARIA A INIGUEZ narrative: 59 yo male with PMH appendiceal carcinoma s/p ileocolonic anastamosis, prolonged QT, JENNIFER, KYM, obesity, HLD, HTN, DM, who notes he is on a weekly injection for his diabetes but noted over the past four days dry mouth, increased thirst and urination. He feels dizzy when standing. He denies infectious, chest pain, GIB symptoms states his sugar kept reading HI. He is not on any other insulin or DM medications. He notes no new med changes or any other issues. MD complaint: other Initial visit (ago): day(s) (4) Description of abnormal result: HI on glucometer Symptoms since prior visit: no new symptoms Associated symptoms: other (polyuria, polydipsia, dry mouth) Related Data Home Medications ?Medication ?Instructions ?Recorded ?Confirmed atorvastatin 10 mg tablet 10 mg PO BEDTIME 10/22/20 05/15/24 carvedilol 12.5 mg tablet 12.5 mg PO Q12H 10/22/20 05/15/24 cholecalciferol (vitamin D3) 25 25 mcg PO DAILY 10/22/20 05/15/24 mcg (1,000 unit) capsule trazodone 150 mg tablet 150 mg PO BEDTIME 11/04/20 05/15/24 sertraline 100 mg tablet 150 mg PO BEDTIME 01/04/22 05/15/24 meclizine 12.5 mg tablet 1 tab PO Q8H PRN nausea 08/18/22 05/15/24 hydrochlorothiazide 25 mg tablet 25 mg PO DAILY 08/02/23 05/15/24 buspirone 10 mg tablet 10 mg PO QAM 09/20/23 05/15/24 clotrimazole 1 % topical cream 1 appl topical BID 09/20/23 05/15/24 topiramate 50 mg capsule,extended 50 mg PO DAILY 09/20/23 05/15/24 release 24 hr fluticasone propionate 50 1 - 2 spray intranasal DAILY 04/09/24 05/15/24 mcg/actuation nasal spray,suspension exenatide microspheres 2 mg/0.85 2 mg subcut DAILY 05/15/24 05/15/24 mL subcutaneous auto-injector ([employer]) Previous Rx's ?Medication ?Instructions ?Recorded oxycodone-acetaminophen 5 mg-325 1 - 2 tab PO Q6H PRN pain #20 tabs 07/09/22 mg tablet (Percocet) dexamethasone 4 mg tablet 4 mg PO BID #60 tabs 02/05/24 Allergies Allergy/AdvReac Type Severity Reaction Status Date / Time lisinopril [LISINOPRIL] Allergy Mild RASH Verified 09/04/24 00:22 oxaliplatin Allergy Shortness Verified 09/04/24 00:22 of Breath Review of Systems 2 Review of Systems: Constitutional : No Fever, No Chills, No Fatigue ENT/Mouth : No sore throat, No Rhinorrhea Eyes: No Eye Pain, No Swelling, No Redness Cardiovascular : No Chest Pain, No SOB, No Dyspnea on Exertion Respiratory : No Cough, No Sputum Gastrointestinal : No Nausea, No Vomiting, No Diarrhea, No abdominal Pain Genitourinary : No Dysuria, No Urinary Frequency, No Hematuria, Musculoskeletal : No joint pain, No Myalgias, No Joint Swelling Skin : No Skin Lesions, No rash Neuro : No Weakness, No Numbness, pos Dizziness, no Headache Psych : No Anxiety/Panic, No Depression Heme/Lymph: No Bruising, No Bleeding,No Lymphadenopathy Endocrine : pos Polyuria, pos Polydipsia All other systems reviewed and are negative PMFSH Past Medical History Attestation statement: The following information was validated with the patient. Source: old records reviewed Medical History History of colon cancer Infected cyst of skin Cellulitis of abdominal wall Eye inflammation Sleep apnea Ambulates with cane Back pain due to injury Morbid obesity Umbilical hernia Obesity (BMI 30-39.9) Dyslipidemia Diabetic nephropathy associated with type 2 diabetes mellitus Epidermal cyst HTN (hypertension) Diabetes type 2, controlled Surgical History History of colon resection H/O colonoscopy S/P appendectomy History of umbilical hernia repair (~01/08/22) Hx of removal of cyst Family History Family History Father Diabetes Heart disease Mother Diabetes Heart disease Other No family history of cancer Social History Social History Household Members: Spouse Housing: Apartment Are you a primary patient care representative to a significant other at home: No Do you presently have visiting nurse or other home services: Yes Alcohol intake: never Comment: Ofirmev infusing at time of xfer Patient Tobacco Use Status: Never used Tobacco Advance Directives: No Advance Directives Information Provided: Yes service: No Current occupational status: disabled Physical Exam 2 Vital Signs: Vital Signs: Last Vital Signs Temp 98.6 F 09/04/24 00:20 Pulse 99 09/04/24 00:20 Resp 20 09/04/24 00:20 BP 116/72 09/04/24 00:20 Pulse Ox 96 09/04/24 00:20 O2 Del Method Room Air 09/04/24 00:20 BMI result Body Mass Index 38.6 Appearance: Alert. Oriented X3. No acute distress. Eyes: Pupils equal, round and reactive to light. ENT: Pharynx dry mouth Neck: Normal inspection. Neck supple. CVS: Normal heart rate and rhythm. Pulses normal. Respiratory: No respiratory distress. Breath sounds normal. Abdomen: Soft and nontender. Rectal: light brown stool Skin: Skin warm and dry. Normal skin color. Normal skin turgor. Extremities: No lower extremity edema. No calf ttp Neuro: Oriented X 3. No motor deficit. No sensory deficit. CN2-12 intact Medical Decision Making Medical Decision Making MDM Narrative: 59 yo male with PMH appendiceal carcinoma s/p ileocolonic anastamosis, prolonged QT, JENNIFER, KYM, obesity, HLD, HTN, DM here with c/o HI on glucometer he denies any cp/sob, infectious symptoms he is anemic denies any black or bloody stools has not noted anything since February, he denies any other non compliance at this time will start on IVF and IV insulin, will eval for DKA as well. Dizziness could be due to dehydration/anemia. Differential Diagnosis Differential Diagnoses: The differential diagnosis associated with the presentation includes JENNIFER, anemia, dehydration, not in DKA No gap neg beta Admission/Observation Consideration of admission/observation: Escalation of care including admission/observation considered admit for fluids, JENNIFER Consult Healthcare Provider Management of the patient was discussed with: Hospitalist (pauline admit) Lab Data MDM Lab Attestation statement: I reviewed the patient's lab results. 09/04/24 00:53 09/04/24 00:53 Labs: Lab Results 09/04/24 09/04/24 09/04/24 Range/Units 00:27 00:53 00:58 WBC 5.8 (4.8-10.8) X10*3/uL RBC 4.00 L (4.60-5.80) X10*6/uL Hgb 8.5 L D (14.0-18.0) g/dl Hct 29.3 L D (42.0-52.0) % MCV 73.3 L (80.0-98.0) fL MCH 21.3 L (27.0-33.0) pg MCHC 29.0 L (31.0-36.0) g/dl RDW 17.1 H (11.0-16.0) % Plt Count 145 L (160-400) X10*3/uL MPV 10.9 (9.4-12.4) fL Immature Gran % (Auto) 0.3 (0.0-0.4) % Neut % (Auto) 68.4 (45-73) % Lymph % (Auto) 23.8 (20-40) % Rabun % (Auto) 6.7 (2-11) % Eos % (Auto) 0.5 (0-4) % Baso % (Auto) 0.3 (0-2) % Lymph # (Auto) 1.4 (1.2-4.9) X10*3/uL Rabun # (Auto) 0.4 (0.1-1.2) X10*3/uL Eos # (Auto) 0.0 (0.0-0.4) X10*3/uL Baso # (Auto) 0.0 (0.0-0.2) X10*3/uL Abs Immat Gran (auto) 0.02 (0.00-0.03) X10*3/uL Absolute Neuts (auto) 4.0 (2.0-8.3) x10*3/uL Absolute Nucleated RBC 0.000 (0.0-0.012) X10*3/uL Nucleated RBC % (auto) 0.0 (0.0-0.2) /100WBC VBG pH 7.38 (7.32-7.43) VBG pCO2 63 mmHg VBG pO2 23 mmHg VBG HCO3 38 H (22-26) mmol/L VBG O2 Saturation Not Reportable VBG Base Excess 11.2 mmol/L Sodium 134 L (135-145) mmol/L Potassium 4.2 (3.3-5.1) mmol/L Chloride 92 L (96-108) mmol/L Carbon Dioxide 31 H (22-29) mmol/L Anion Gap 15 (12-20) BUN 23 H (9-16) mg/dL Creatinine 1.70 H (0.5-1.4) mg/dL Estim Creat Clear Calc 61.2 Estimated GFR 41 POC Glucose 598 H* (60-115) mg/dL Random Glucose 619 H* (60-115) mg/dL Calcium 9.2 (8.4-10.2) mg/dL Total Bilirubin 0.3 (0.0-1.0) mg/dL AST 24 (5-37) U/L ALT 20 (0-40) U/L Alkaline Phosphatase 162 H (39-117) U/L Total Protein 7.7 (6.5-8.0) g/dL Albumin 4.1 (3.5-5.0) g/dL Beta-Hydroxybutyrate 0.10 (0.02-0.27) mmol/L Independent Interpretation I performed an independent interpretation of an: EKG Interpretation: Rate: 95 Rhythm: NSR [place]: normal Normal P waves. Normal ANGEL. Normal QRS complex. ST T wave : no MIGUEL, flat t waves V1 qTC: 457 prior studies: no acute ischemia The study has been interpreted contemporaneously by me. . Critical Care Time Critical Care Time Critical Care Time: Yes Total Critical Care Time: 36 Attestation: IVF x 2L, IV insulin, review of records, admission I attest to this time spent taking care of the patient Discharge Plan Discharge Clinical Impression: JENNIFER (acute kidney injury), Acute hyperglycemia, Acute anemia Patient Disposition: Admitted As Inpatient Prescriptions: No Action oxycodone-acetaminophen [Percocet] 5-325 mg tablet 1 - 2 tab PO Q6H PRN (Reason: pain) Qty: 20 0RF Rx Instructions: Partial Fill upon patient request. sertraline 100 mg tablet 150 mg PO BEDTIME meclizine 12.5 mg tablet 1 tab PO Q8H PRN (Reason: nausea) dexamethasone 4 mg Tablet 4 mg PO BID Qty: 60 4RF Bydureon BCise 2 mg/0.85 mL Auto-Injector 2 mg SUBCUT DAILY hydrochlorothiazide 25 mg tablet 25 mg PO DAILY cholecalciferol (vitamin D3) 25 mcg (1,000 unit) capsule 25 mcg PO DAILY atorvastatin 10 mg tablet 10 mg PO BEDTIME carvedilol 12.5 mg tablet 12.5 mg PO Q12H trazodone 150 mg tablet 150 mg PO BEDTIME topiramate 50 mg capsule,extended release 24hr 50 mg PO DAILY clotrimazole 1 % cream 1 appl topical BID fluticasone propionate 50 mcg/actuation spray,suspension 1 - 2 spray intranasal DAILY buspirone 10 mg tablet 10 mg PO QAM Print Language: Croatian
[2024-09-04 02:13] LABS: OBS Int Ctl Valid YES; OBS1 NEGATIVE (NEGATIVE)
[2024-09-04] MEDS: Lactated Ringers 1,000 ML 999 ML IV ×2 (02:34→04:22)
[2024-09-04] MEDS: Insulin Regular, Human 100 UNIT/ML 10 ML VIAL 10 UNIT IVPUSH ×2 (02:42→21:52)
[2024-09-04 03:01] LABS: Appearance Urine Clear; Color Urine Yellow; Glucose Urine UA >=1000 mg/dL (Negative); Leukocyte Esterase Urine Negative (Negative); Nitrite Urine Negative (Negative); PH 5.5 (5.0-9.0); Specific Gravity - Urine >= 1.030 (1.005-1.025); UMIC TRIGGER UACC YES; Urine Blood Negative (Negative); Urine Ketones Negative (Negative); Urine Protein Negative (Neg-Trace)
[2024-09-04 03:04] LABS: Bacteria Urine None Seen (None Seen); Hyaline Casts Urine 0-2 /LPF (0-2); RBC Urine 0-2 /HPF (0-2); Squamous Epithelial Cell Urine 0-2 /HPF (0-2); WBC Urine 0-5 /HPF (0-5)
--- NOTE | 2024-09-04 03:37 | PM.IMHP ---
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 Patient states his symptoms started 4 days prior to presentation. He has been having increased thirst and increased urination. On the day of presentation, patient got dizzy and lightheaded when he stood up from a seated position. Did not pass out. Denies vomiting, diarrhea, hematuria, melena or hematemesis. No abdominal pain. No fever, chills, chest pain, palpitations, shortness of breath. No dysuria. In the emergency department, serum glucose found to be elevated. Also found to have JENNIFER with creatinine 1.7. Review of Systems Constitutional: Constitutional: Reports fatigue, Reports malaise and Reports weakness Cardiovascular: Cardiovascular: Reports no additional cardiovascular complaints Respiratory: Respiratory: Reports no additional respiratory complaints Gastrointestinal: Gastrointestinal: Reports no additional gastrointestinal complaints Neurologic: Reports weakness Endocrine: Endocrine: Reports fatigue, Reports polydipsia and Reports polyuria [facility] History History of colon cancer Infected cyst of skin Cellulitis of abdominal wall Eye inflammation Sleep apnea Ambulates with cane Back pain due to injury Morbid obesity Umbilical hernia Obesity (BMI 30-39.9) Dyslipidemia Diabetic nephropathy associated with type 2 diabetes mellitus Epidermal cyst HTN (hypertension) Diabetes type 2, controlled Family History Father Diabetes Heart disease Mother Diabetes Heart disease Other No family history of cancer Surgical History History of colon resection H/O colonoscopy S/P appendectomy History of umbilical hernia repair (~01/08/22) Hx of removal of cyst Social History Household Members: Spouse Housing: Apartment Are you a primary insurance healthcare consultant to a significant other at home: No Do you presently have visiting nurse or other home services: Yes Alcohol intake: never Comment: Ofirmev infusing at time of xfer Patient Tobacco Use Status: Never used Tobacco Smoked in Last 30 Days: No Use of substances other than those prescribed or required for medical reasons: No Advance Directives: No Advance Directives Information Provided: Yes service: No Current occupational status: disabled Meds Allergies Allergy/AdvReac Type Severity Reaction Status Date / Time lisinopril [LISINOPRIL] Allergy Mild RASH Verified 09/04/24 00:22 oxaliplatin Allergy Shortness Verified 09/04/24 00:22 of Breath Active Medications: Current Medications Insulin Glargine (Insulin Glargine,Hum.Rec.Anlog 100 Unit/Ml 10 Ml Vial) 20 unit SUBCUT ONCE ONE Stop: 09/04/24 03:36 Home Medications ?Medication ?Instructions ?Recorded ?Confirmed ?Last Taken ?Type atorvastatin 10 mg tablet 10 mg PO BEDTIME 10/22/20 05/15/24 07/31/22 History carvedilol 12.5 mg tablet 12.5 mg PO Q12H 10/22/20 05/15/24 07/31/22 History cholecalciferol (vitamin D3) 25 25 mcg PO DAILY 10/22/20 05/15/24 07/31/22 History mcg (1,000 unit) capsule trazodone 150 mg tablet 150 mg PO BEDTIME 11/04/20 05/15/24 07/31/22 History sertraline 100 mg tablet 150 mg PO BEDTIME 01/04/22 05/15/24 07/31/22 History meclizine 12.5 mg tablet 1 tab PO Q8H PRN nausea 08/18/22 05/15/24 Unknown History hydrochlorothiazide 25 mg tablet 25 mg PO DAILY 08/02/23 05/15/24 Unknown History buspirone 10 mg tablet 10 mg PO QAM 09/20/23 05/15/24 Unknown History clotrimazole 1 % topical cream 1 appl topical BID 09/20/23 05/15/24 Unknown History topiramate 50 mg capsule,extended 50 mg PO DAILY 09/20/23 05/15/24 Unknown History release 24 hr fluticasone propionate 50 1 - 2 spray intranasal DAILY 04/09/24 05/15/24 Unknown History mcg/actuation nasal spray,suspension exenatide microspheres 2 mg/0.85 2 mg subcut DAILY 05/15/24 05/15/24 Unknown History mL subcutaneous auto-injector (Jewell Dodd) Physical Exam Vital Signs and Narrative: Vital Signs: Last Vital Signs Temp 98.6 F 09/04/24 00:20 Pulse 99 09/04/24 00:20 Resp 20 09/04/24 00:20 BP 116/72 09/04/24 00:20 Pulse Ox 96 09/04/24 00:20 O2 Del Method Room Air 09/04/24 00:20 BMI result Body Mass Index 38.6 Middle-aged male lying in bed in no distress Neck supple, no JVD Regular rate and rhythm, S1-S2 heard Regular breath sounds bilaterally, no wheezing or crackles appreciated Abdomen soft nontender, no guarding, no rigidity Patient is awake, alert and oriented to self, place, time and person ; no focal motor deficit Psych: Normal mood No pedal edema Results Labs 09/04/24 00:53 09/04/24 00:53 Labs: Laboratory Results - last 24 hr 09/04/24 09/04/24 09/04/24 00:27 00:53 00:58 MCV 73.3 L MCH 21.3 L MCHC 29.0 L RDW 17.1 H Plt Count 145 L MPV 10.9 Immature Gran % (Auto) 0.3 Neut % (Auto) 68.4 Lymph % (Auto) 23.8 [place] % (Auto) 6.7 Eos % (Auto) 0.5 Baso % (Auto) 0.3 Lymph # (Auto) 1.4 [place] # (Auto) 0.4 Eos # (Auto) 0.0 Baso # (Auto) 0.0 Abs Immat Gran (auto) 0.02 Absolute Neuts (auto) 4.0 Absolute Nucleated RBC 0.000 Nucleated RBC % (auto) 0.0 VBG pH 7.38 VBG pCO2 63 VBG pO2 23 VBG HCO3 38 H VBG O2 Saturation Not Reportable VBG Base Excess 11.2 Anion Gap 15 Estim Creat Clear Calc 61.2 Estimated GFR 41 POC Glucose 598 H* Random Glucose 619 H* Calcium 9.2 Total Bilirubin 0.3 AST 24 ALT 20 Alkaline Phosphatase 162 H Total Protein 7.7 Albumin 4.1 Beta-Hydroxybutyrate 0.10 Urine Color Urine Appearance Urine pH Ur Specific [place] Urine Protein Urine Glucose (UA) Urine Ketones Urine Blood Urine Nitrite Ur Leukocyte Esterase Urine RBC Urine WBC Ur Squamous Epith Cells Urine Bacteria Hyaline Casts Stool Occult Blood Blood Type Antibody Screen 09/04/24 09/04/24 02:08 02:24 MCV MCH MCHC RDW Plt Count MPV Immature Gran % (Auto) Neut % (Auto) Lymph % (Auto) [place] % (Auto) Eos % (Auto) Baso % (Auto) Lymph # (Auto) [place] # (Auto) Eos # (Auto) Baso # (Auto) Abs Immat Gran (auto) Absolute Neuts (auto) Absolute Nucleated RBC Nucleated RBC % (auto) VBG pH VBG pCO2 VBG pO2 VBG HCO3 VBG O2 Saturation VBG Base Excess Anion Gap Estim Creat Clear Calc Estimated GFR POC Glucose Random Glucose Calcium Total Bilirubin AST ALT Alkaline Phosphatase Total Protein Albumin Beta-Hydroxybutyrate Urine Color Yellow Urine Appearance Clear Urine pH 5.5 Ur Specific [place] >= 1.030 H Urine Protein Negative Urine Glucose (UA) >=1000 H Urine Ketones Negative Urine Blood Negative Urine Nitrite Negative Ur Leukocyte Esterase Negative Urine RBC 0-2 Urine WBC 0-5 Ur Squamous Epith Cells 0-2 Urine Bacteria None Seen Hyaline Casts 0-2 Stool Occult Blood NEGATIVE Blood Type O Positive Antibody Screen NEGATIVE Assessment and Plan (1) Acute hyperglycemia: Status: Acute (2) JENNIFER (acute kidney injury): Status: Acute Plan This is a 59-year-old male with pertinent history of appendiceal adenocarcinoma status post appendicectomy with right hemicolectomy with ileocolic anastomosis, hypertension, KYM on CPAP, ehg-djxynum-kvfjgdead diabetes mellitus, mood disorder, mixed hyperlipidemia who presents to the emergency department for evaluation of increased urination and dizziness upon standing. #. Uncontrolled sbq-brlheed-uukjdxttp diabetes mellitus with hyperglycemia: Initiating basal plus insulin regimen. Monitor and titrate. Obtaining A1c #. Acute kidney injury stage I, likely prerenal: Monitor with crystalloid resuscitation. Avoid nephrotoxins #. KYM: On CPAP at bedtime #. Microcytic anemia: Noted drop in hemoglobin. Stool occult negative. He denies melena, hematochezia. If H&H drops further, consider GI consult #. Mood disorder: Continue home mood stabilizers #. Mixed hyperlipidemia: On statin #. Hypertension: Hold hydrochlorothiazide in the setting of JENNIFER and hyperglycemia. Med rec pending DVT prophylaxis: Mechanical setting of possible GI bleed Full code Admit as inpatient and will require two night minimum hospital stay for monitoring of blood glucose levels, kidney function (as above), which is not possible in a lesser acute setting. Quality Stroke Does the patient have a stroke diagnosis?: No VTE Prior VTE?: No VTE Risk Level:: Medical - moderate - high VTE Device Contraindication: N/A - Device Ordered VTE Drug Contraindication: Treatment Not Indicated
[2024-09-04 03:45] LABS: Glucose, Whole Blood 380 mg/dL (60-115)
[2024-09-04] MEDS: Insulin Glargine,Hum.rec.anlog 100 UNIT/ML 10 ML VIAL 20 UNIT SUBCUT (04:21)
[2024-09-04 05:17] LABS: Glucose, Whole Blood 308 mg/dL (60-115)
--- NOTE | 2024-09-04 05:39 | PC.NURSE ---
Patient is alert and oriented x4, able to make his needs known and uses call silvestre appropriately. Patient denies any pain. Patent medicated per MAR. Patient ambulates independently with a steady gait. Patient offers no complaints at this time, resting on a stretcher bed, call silvestre in reach, plan of care ongoing.
[2024-09-04 05:58] LABS: MANUAL DIFF FLAG NO
[2024-09-04 06:18] LABS: Anion Gap 13 (12-20); Blood Urea Nitrogen 20 mg/dL (9-16); Calcium 8.6 mg/dL (8.4-10.2); Carbon Dioxide 31 mmol/L (22-29); Chloride 96 mmol/L (96-108); Creatinine Clr Calc Pharmacy 78.9; Estimated Glomerular Filt Rate 56; Glucose Random 382 mg/dL (60-115); Potassium 3.7 mmol/L (3.3-5.1); Sodium 136 mmol/L (135-145)
[2024-09-04 06:29] LABS: Estimated Average Glucose 324 mg/dL; Hemoglobin A1C 263.0211 umol/L; Hemoglobin A1c % 12.9 % (<6.0); Total Hemoglobin (HGBA1C) 2237.2541 umol/L
[2024-09-04 06:47] LABS: Basophils Percent Auto 0.3 % (0-2); Eosinophils Absolute Auto 0.1 X10*3/uL (0.0-0.4); Eosinophils Percent Auto 0.8 % (0-4); Hemoglobin 7.7 g/dl (14.0-18.0); Imm Gran Abs Auto 0.04 X10*3/uL (0.00-0.03); Imm Gran Pct Auto 0.7 % (0.0-0.4); Lymphocytes Absolute Auto 1.3 X10*3/uL (1.2-4.9); Lymphocytes Percent Auto 21.9 % (20-40); Mean Corpuscular HGB Conc 28.5 g/dl (31.0-36.0); Mean Corpuscular Hemoglobin 20.9 pg (27.0-33.0); Mean Corpuscular Volume 73.2 fL (80.0-98.0); Monocytes Absolute Auto 0.5 X10*3/uL (0.1-1.2); NRBC Pct Auto 0.3 /100WBC (0.0-0.2); Neutrophils Percent Auto 67.3 % (45-73); Platelet Count 128 X10*3/uL (160-400); Red Blood Count 3.69 X10*6/uL (4.60-5.80); Red Cell Distribution Width 16.9 % (11.0-16.0); White Blood Count 5.9 X10*3/uL (4.8-10.8)
[2024-09-04 07:51] LABS: Glucose, Whole Blood 335 mg/dL (60-115)
--- NOTE | 2024-09-04 09:09 | PHA.MEDREC ---
Pharmacy Consult ? Medication Reconciliation Pharmacy has completed the medication reconciliation, spoke to patient at bedside who confirmed all medications and doses. Pt tried to find list but was unable to but was able to recall how he takes all medications when given the name.
[2024-09-04] MEDS: Lactated Ringers 1,000 ML 100 ML IVCONT ×2 (09:11→19:15)
[2024-09-04] MEDS: Insulin Lispro 100 UNIT/ML 3 ML VIAL SUBCUT ×7 (09:12→20:28)
[2024-09-04 11:44] LABS: Glucose, Whole Blood 376 mg/dL (60-115)
--- NOTE | 2024-09-04 12:24 | PM.EVENT ---
Event Note Date of Service: 09/04/24 Event Note: Day Team Follow Up S Pt seen and examined. [id number] bedside Reports feeling light headed with standing up Dnies cp/abd pain O vitals - last documented gen - nad cvs - s1s2 lungs - clear abd - soft nt neuro - non-focal A/P 59 yo M with history of DM, appendiceal adenoCa s/p hemicolectcomy, HTN, KYM on CPAP who presents to ED with signs and symptoms of hyperglycemia found to have glucose over 600, orthostasis and JENNIFER admitted for further treatment DM with hyperglycemia on weekly injections with exenatide; hba1c trend reviewed -- up from 7s to over 12 in about 4-5 months; pt reports poor compliace with diet reporting consumption of sugary drinks will need insulin for the time being -- pt open to it upon discharge as well given 20 of lantus earlier and now on sliding scale -- still with elevated glucose orthostasis still symptomatic; will repeat vitals and bolus IVF if needed microcytic anemia FOBT neg; no evidence of acute blood loss check iron studies repeat h/h last scope in May 2024 showig normal colon, aanstomosis and ileal mucosa + interal/exteral hemorroids JENNIFER SCr more than 2x baseline on presentation, improving due to glycosuria / dehydration as a result IVF HTN hold bp meds HLD statin KYM cpap while sleeping full code dvt pptx - mechanical due to significant anemia Time Spent With Patient Time: Total time managing care of this patient today ____ minutes.
--- NOTE | 2024-09-04 12:40 | PC.NURSE ---
Pt sugar 376, MD Barros notified of high POC. Per , give 14 units lispro. Call silvestre within reach, all needs met at this time.
[2024-09-04] MEDS: Insulin Glargine,Hum.rec.anlog 100 UNIT/ML 10 ML VIAL 10 UNIT SUBCUT (12:51)
[2024-09-04 13:00] LABS: Iron 9 mcg/dL (45-160); Percent Iron Saturation 3 % (15-50); Total Iron Binding Capacity 294 mcg/dL (228-428); Unsaturated Iron Binding 285 ug/dL
[2024-09-04 17:04] LABS: Glucose, Whole Blood 281 mg/dL (60-115)
[2024-09-04 19:45] LABS: Glucose, Whole Blood 402 mg/dL (60-115)
[2024-09-04] MEDS: traZODone HCL 50 MG TABLET 150 MG PO (20:27)
[2024-09-04] MEDS: Sertraline HCL 50 MG TABLET 150 MG PO (20:27)
[2024-09-04] MEDS: Atorvastatin Calcium 10 MG TABLET PO (20:28)
[2024-09-05] VITALS (7 sets, daily range): BP systolic 117–133; BP diastolic 58–78; PULSE 96–115; RESP 16–18; TEMP 36.8–37.3; O2SAT 93–96
[2024-09-05 07:35] LABS: Glucose, Whole Blood 328 mg/dL (60-115)
[2024-09-05] MEDS: Insulin Glargine,Hum.rec.anlog 100 UNIT/ML 10 ML VIAL 30 UNIT SUBCUT (08:08)
[2024-09-05] MEDS: Insulin Lispro 100 UNIT/ML 3 ML VIAL SUBCUT ×6 (08:09→21:24)
[2024-09-05] MEDS: 0.9 % Sodium Chloride Flush 3 ML SYRINGE IVFLUSH ×3 (08:10→21:24)
[2024-09-05] MEDS: Cholecalciferol (Vitamin D3) 25 MCG TABLET PO (08:10)
[2024-09-05] MEDS: busPIRone HCl 10 MG TABLET PO (08:10)
[2024-09-05 08:49] LABS: Hematocrit 26.7 % (42.0-52.0); Hemoglobin 7.5 g/dl (14.0-18.0)
[2024-09-05] MEDS: Ferrous Sulfate 300 MG/5 ML LIQUID PO ×2 (09:01→17:00)
[2024-09-05] MEDS: Ascorbic Acid 500 MG TABLET PO (09:01)
[2024-09-05 11:25] LABS: Glucose, Whole Blood 395 mg/dL (60-115)
--- NOTE | 2024-09-05 13:23 | MHC.CM.PN ---
IMM delivered. Patient lives at home w/ who is also HCP and [facility] lead care manager through [employer]. assists w/ ADL's PRN. Ambulates w/ cane. Has CPAP - [employer] is supplier. PCP Daniella Colon MD HCP on file and verified. DP: Home, resume AFC, ? need for SN/med management - referral to [facility] per patient preference, as he has used their services in the past. to transport at [place]. CM will continue to follow.
--- NOTE | 2024-09-05 14:51 | HO.PM.IMPN ---
Subjective Subjective Date of Service: 09/05/24 Interval History: microcytic anemia,jennifer,dm with hyperglycemia Review of Systems says dizziness some improving denies chest pain or sob h/h slowly trending down,? iron def anemia Physical Exam Vital Signs: Vital Signs: Last Vital Signs Temp 98.8 F 09/05/24 07:27 Pulse 115 H 09/05/24 09:02 Resp 16 09/05/24 07:27 BP 117/58 L 09/05/24 09:02 Pulse Ox 96 09/05/24 07:27 O2 Del Method Room Air 09/05/24 07:27 BMI result Body Mass Index 37.9 Appearance: Alert.? Oriented X3.? cvs: rrr, x2c2xidpi . res: clear to auscultation ,no rhonchii or wheezing abd: no rebound or guarding ,nt, bs present. ext pulses present , no cyanosis . neuro: axo3 , nonfocal. Objective Data Active Medications Acetaminophen (Acetaminophen 325 Mg Tablet) 650 mg PO Q6H PRN PRN Reason: Pain, Mild 1-3,fever,headache Ascorbic Acid (Ascorbic Acid 500 Mg Tablet) 500 mg PO DAILY [facility] Last Admin: 09/05/24 09:01 Dose: 500 mg Documented By: ARAMIS Atorvastatin Calcium (Atorvastatin Calcium 10 Mg Tablet) 10 mg PO BEDTIME [facility] Last Admin: 09/04/24 20:28 Dose: 10 mg Documented By: CHRISTIANO Buspirone HCl (Buspirone Hcl 10 Mg Tablet) 10 mg PO DAILY [facility] Last Admin: 09/05/24 08:10 Dose: 10 mg Documented By: ARAMIS Calcium Carbonate (Calcium Carbonate 750 Mg Tab.Chew) 750 mg PO Q4H PRN PRN Reason: Heartburn Ferrous Sulfate (Ferrous Sulfate 300 Mg/5 Ml Liquid) 300 mg PO BIDWM [facility] Last Admin: 09/05/24 09:01 Dose: 300 mg Documented By: ARAMIS Glucose (Glucose Gel 15 Gm Gel..Gram.) 15 gm PO Q15M PRN; Protocol PRN Reason: per Hypoglycemia Standing Ord. Dextrose (D10) 250 mls @ 750 mls/hr IV Q15M PRN; Protocol PRN Reason: per Hypoglycemia Standing Ord. Insulin Glargine (Insulin Glargine,Hum.Rec.Anlog 100 Unit/Ml 10 Ml Vial) 30 unit SUBCUT DAILY [facility] Last Admin: 09/05/24 08:08 Dose: 30 unit Documented By: ARAMIS Insulin Human Lispro (Insulin Lispro 100 Unit/Ml 3 Ml Vial) 0 unit SUBCUT QIDACHS [facility]; Protocol Last Admin: 09/05/24 13:12 Dose: 10 unit Documented By: ARAMIS Insulin Human Lispro (Insulin Lispro 100 Unit/Ml 3 Ml Vial) [facility] Magnesium Hydroxide (Milk Of Magnesia 30 Ml Oral.Susp) 30 ml PO DAILY PRN PRN Reason: Constipation Melatonin (Melatonin 3 Mg Tablet) 6 mg PO BEDTIME PRN PRN Reason: Insomnia Ondansetron HCl (Ondansetron Hcl 4 Mg/2 Ml Vial) 4 mg IVPUSH Q8H PRN PRN Reason: Nausea and Vomiting Sertraline HCl (Sertraline Hcl 50 Mg Tablet) 150 mg PO BEDTIME [facility] Last Admin: 09/04/24 20:27 Dose: 150 mg Documented By: CHRISTIANO Sodium Chloride (0.9 % Sodium Chloride Flush 3 Ml Syringe) 3 ml IVFLUSH QSHIFT [facility] Last Admin: 09/05/24 08:10 Dose: 3 ml Documented By: ARAMIS Trazodone HCl (Trazodone Hcl 50 Mg Tablet) 150 mg PO BEDTIME [facility] Last Admin: 09/04/24 20:27 Dose: 150 mg Documented By: CHRISTIANO Vitamin D (Cholecalciferol (Vitamin D3) 25 Mcg Tablet) 25 mcg PO DAILY [facility] Last Admin: 09/05/24 08:10 Dose: 25 mcg Documented By: ARAMIS Labs 09/05/24 08:16 09/04/24 05:27 Labs: Laboratory Results - last 24 hr 09/04/24 09/04/24 09/05/24 17:00 19:25 07:30 POC Glucose 281 H 402 H* 328 H 09/05/24 11:15 POC Glucose 395 H* Assessment and Plan (1) Acute anemia: Status: Acute (2) JENNIFER (acute kidney injury): Status: Acute Plan 59 yo M with history of DM, appendiceal adenoCa s/p hemicolectcomy, HTN, KYM on CPAP who presents to ED with signs and symptoms of hyperglycemia found to have glucose over 600, orthostasis and JENNIFER admitted for further treatment DM with hyperglycemia on weekly injections with exenatide; hba1c trend reviewed -- up from 7s to over 12 in about 4-5 months ? noncomplace continue lantus ,fs with sliding scale. orthostasis seems improving microcytic anemia FOBT neg; no evidence of acute blood loss check iron studies-iron and iron sat low,tibc normal gi-notes -? on/off haemrroidal bleed but h/h drop significantly since h/h: 7.5 /26.7 last scope in May 2024 showig normal colon, anstomosis and ileal mucosa + interal/exteral hemorroids moniter cbc if further drop < 7 , need transfusion. JENNIFER SCr more than 2x baseline on presentation, improving given ivf -seems improving HTN hold bp meds HLD statin KYM cpap while sleeping morbid obesity-encouraged to lose weight cut down calories. full code dvt pptx - mechanical due to significant anemia Quality Stroke Does the patient have a stroke diagnosis?: No VTE Prior VTE?: No VTE Risk Level:: Medical - moderate - high VTE Device Contraindication: N/A - Device Ordered VTE Drug Contraindication: Treatment Not Indicated
[2024-09-05 16:04] LABS: Glucose, Whole Blood 293 mg/dL (60-115)
[2024-09-05] MEDS: Insulin Lispro 100 UNIT/ML 3 ML VIAL 6 UNIT SUBCUT ×2 (16:56→21:24)
[2024-09-05 20:15] LABS: Glucose, Whole Blood 289 mg/dL (60-115)
[2024-09-05] MEDS: Sertraline HCL 50 MG TABLET 150 MG PO (21:23)
[2024-09-05] MEDS: traZODone HCL 50 MG TABLET 150 MG PO (21:24)
[2024-09-05] MEDS: Atorvastatin Calcium 10 MG TABLET PO (21:24)
[2024-09-06 03:38] VITALS: BP 126/59; PULSE 92; RESP 18; TEMP 36.2; O2SAT 98
[2024-09-06 07:16] LABS: Hematocrit 27.5 % (42.0-52.0); Hemoglobin 7.5 g/dl (14.0-18.0)
[2024-09-06 07:44] VITALS: BP 117/52; PULSE 100; RESP 16; TEMP 36.4; O2SAT 98
[2024-09-06 07:53] LABS: Glucose, Whole Blood 211 mg/dL (60-115)
[2024-09-06] MEDS: Insulin Lispro 100 UNIT/ML 3 ML VIAL SUBCUT ×4 (08:07→20:30)
[2024-09-06] MEDS: Insulin Lispro 100 UNIT/ML 3 ML VIAL 6 UNIT SUBCUT ×4 (08:07→20:31)
[2024-09-06] MEDS: busPIRone HCl 10 MG TABLET PO (08:08)
[2024-09-06] MEDS: Ferrous Sulfate 300 MG/5 ML LIQUID PO ×2 (08:08→17:21)
[2024-09-06] MEDS: Insulin Glargine,Hum.rec.anlog 100 UNIT/ML 10 ML VIAL 40 UNIT SUBCUT (08:08)
[2024-09-06] MEDS: Ascorbic Acid 500 MG TABLET PO (08:09)
[2024-09-06] MEDS: Cholecalciferol (Vitamin D3) 25 MCG TABLET PO (08:09)
[2024-09-06] MEDS: 0.9 % Sodium Chloride Flush 3 ML SYRINGE IVFLUSH ×3 (08:14→20:31)
--- NOTE | 2024-09-06 09:21 | P.CNGI_ITS ---
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 On the day of presentation, patient got dizzy and lightheaded when he stood up from a seated position. Did not pass out. Pt denied vomiting, diarrhea, hematuria, melena or hematemesis, abdominal pain, fever, chills, chest pain, palpitations, shortness of breath. No dysuria. Evaluation in the ED showed glucose over 600, orthostasis and JENNIFER Pt is on weekly injections with exenatide; pt reported poor compliance with diet reporting consumption of sugary drinks He was treated with IVF for orthostasis FOBT was neg; no evidence of acute blood loss Pt denies abdominal pain, heartburn or dysphagia, hematochezia or melena. He complains of nausea without vomiting and postprandial diarrhea since his colon surgery in 2021 Patient denies past history of upper GI bleeding or peptic ulcer disease. Patient denies use of aspirin or nonsteroidals. He reports rectal bleeding in the past due to hemorrhoids and none since Apr, 2024 He reports irregular eating habits and non-compliance with diabetic diet Patient denies smoking and drinks alcohol on special occasions only. Patient denies any family history of colon polyps, liver disease or GI malignancy. 07/16/[address] SCAN SHOWED: 1. Status post right hemicolectomy. No evidence of residual, or recurrent tumor or metastatic disease. 2. Small ventral wall incisional hernias containing fat. 3. Mild diffuse fatty change of liver. New focal fatty infiltration having a geographic appearance involving segment 4B. 4. Suspect a small type I hiatal hernia. PAST GI HISTORY BY REVIEW OF MEDICAL RECORDS: 06/14/24 [address] PERFOR[address] CHINO: Impression: 1. Normal colon, ileocolonic anastomosis, and ileal mucosa 2. Internal and external hemorrhoids Recommendations: - Follow path results. - Intermittent rectal bleeding was likely from hemorrhoids, which has since resolved. - Repeat colonoscopy in 3 years for adenoca surveillance. Review of Systems 2 Constitutional: Constitutional: Reports fatigue, Reports malaise and Reports weakness Cardiovascular: Cardiovascular: Reports no additional cardiovascular complaints Respiratory: Respiratory: Reports no additional respiratory complaints Gastrointestinal: Gastrointestinal: Reports no additional gastrointestinal complaints Neurologic: Reports weakness Endocrine: Endocrine: Reports fatigue, Reports polydipsia and Reports polyuria PMFSH Past Medical History Medical History History of colon cancer Infected cyst of skin Cellulitis of abdominal wall Eye inflammation Sleep apnea Ambulates with cane Back pain due to injury Morbid obesity Umbilical hernia Obesity (BMI 30-39.9) Dyslipidemia Diabetic nephropathy associated with type 2 diabetes mellitus Epidermal cyst HTN (hypertension) Diabetes type 2, controlled Family History Family History Father Diabetes Heart disease Mother Diabetes Heart disease Other No family history of cancer Surgical History Surgical History History of colon resection H/O colonoscopy S/P appendectomy History of umbilical hernia repair (~01/08/22) Hx of removal of cyst Social History Social History Household Members: Spouse Housing: House Are you a primary medicare compliance auditor to a significant other at home: No Do you presently have visiting nurse or other home services: No Alcohol intake: never Comment: Ofirmev infusing at time of xfer Patient Tobacco Use Status: Never used Tobacco service: No Current occupational status: disabled Meds Allergies Allergy/AdvReac Type Severity Reaction Status Date / Time lisinopril [LISINOPRIL] Allergy Mild RASH Verified 09/07/24 13:32 oxaliplatin Allergy Shortness Verified 09/07/24 13:32 of Breath Active Medications: Current Medications Acetaminophen (Acetaminophen 325 Mg Tablet) 650 mg PO Q6H PRN PRN Reason: Pain, Mild 1-3,fever,headache Ascorbic Acid (Ascorbic Acid 500 Mg Tablet) 500 mg PO DAILY [facility] Last Admin: 09/06/24 08:09 Dose: 500 mg Atorvastatin Calcium (Atorvastatin Calcium 10 Mg Tablet) 10 mg PO BEDTIME [facility] Last Admin: 09/05/24 21:24 Dose: 10 mg Buspirone HCl (Buspirone Hcl 10 Mg Tablet) 10 mg PO DAILY [facility] Last Admin: 09/06/24 08:08 Dose: 10 mg Calcium Carbonate (Calcium Carbonate 750 Mg Tab.Chew) 750 mg PO Q4H PRN PRN Reason: Heartburn Ferrous Sulfate (Ferrous Sulfate 300 Mg/5 Ml Liquid) 300 mg PO BIDWM [facility] Last Admin: 09/06/24 08:08 Dose: 300 mg Glucose (Glucose Gel 15 Gm Gel..Gram.) 15 gm PO Q15M PRN; Protocol PRN Reason: per Hypoglycemia Standing Ord. Dextrose (D10) 250 mls @ 750 mls/hr IV Q15M PRN; Protocol PRN Reason: per Hypoglycemia Standing Ord. Insulin Glargine (Insulin Glargine,Hum.Rec.Anlog 100 Unit/Ml 10 Ml Vial) 40 unit SUBCUT DAILY [facility] Last Admin: 09/06/24 08:08 Dose: 40 unit Insulin Human Lispro (Insulin Lispro 100 Unit/Ml 3 Ml Vial) 0 unit SUBCUT QIDACHS [facility]; Protocol Last Admin: 09/06/24 08:07 Dose: 4 unit Insulin Human Lispro (Insulin Lispro 100 Unit/Ml 3 Ml Vial) 6 unit SUBCUT QIDACHS [facility] Last Admin: 09/06/24 08:07 Dose: 6 unit Magnesium Hydroxide (Milk Of Magnesia 30 Ml Oral.Susp) 30 ml PO DAILY PRN PRN Reason: Constipation Melatonin (Melatonin 3 Mg Tablet) 6 mg PO BEDTIME PRN PRN Reason: Insomnia Ondansetron HCl (Ondansetron Hcl 4 Mg/2 Ml Vial) 4 mg IVPUSH Q8H PRN PRN Reason: Nausea and Vomiting Sertraline HCl (Sertraline Hcl 50 Mg Tablet) 150 mg PO BEDTIME [facility] Last Admin: 09/05/24 21:23 Dose: 150 mg Sodium Chloride (0.9 % Sodium Chloride Flush 3 Ml Syringe) [facility] Last Admin: 09/06/24 08:14 Dose: 3 ml Trazodone HCl (Trazodone Hcl 50 Mg Tablet) 150 mg PO BEDTIME [facility] Last Admin: 09/05/24 21:24 Dose: 150 mg Vitamin D (Cholecalciferol (Vitamin D3) 25 Mcg Tablet) 25 mcg PO DAILY [facility] Last Admin: 09/06/24 08:09 Dose: 25 mcg Home Medications ?Medication ?Instructions ?Recorded ?Confirmed ?Last Taken ?Type atorvastatin 10 mg tablet 10 mg PO BEDTIME 10/22/20 09/04/24 09/03/24 History carvedilol 12.5 mg tablet 12.5 mg PO BID 10/22/20 09/04/24 09/03/24 History cholecalciferol (vitamin D3) 25 25 mcg PO DAILY 10/22/20 09/04/24 09/03/24 History mcg (1,000 unit) capsule trazodone 150 mg tablet 150 mg PO BEDTIME 11/04/20 09/04/24 09/03/24 History sertraline 100 mg tablet 150 mg PO BEDTIME 01/04/22 09/04/24 09/03/24 History buspirone 10 mg tablet 10 mg PO DAILY 09/20/23 09/04/24 09/03/24 History clotrimazole 1 % topical cream 1 appl topical BID PRN Rash 09/20/23 09/04/24 09/03/24 History fluticasone propionate 50 1 - 2 spray intranasal DAILY PRN 04/09/24 09/04/24 09/03/24 History mcg/actuation nasal cold and allergies spray,suspension exenatide microspheres 2 mg/0.85 2 mg subcut FR 05/15/24 09/04/24 08/31/24 History mL subcutaneous auto-injector (Jewell Rivas) Physical Exam 2 Vital Signs: Vital Signs: Last Vital Signs Temp 97.5 F 09/06/24 07:44 Pulse 100 09/06/24 07:44 Resp 16 09/06/24 07:44 BP 117/52 L 09/06/24 07:44 Pulse Ox 98 09/06/24 07:44 O2 Del Method Room Air 09/06/24 07:44 BMI result Body Mass Index 37.9 Const: General: no acute distress Nutritional Appearance: obese O rientation/consciousness: patient oriented x3 Limitations: no limitations HEENT: Head: Yes normal to inspection Ears: hearing grossly normal bilaterally Eyes: Sclerae: sclerae normal Pupils: Equal, round and reactive pupils present Neck: Neck: Yes normal visual inspection Chest: Chest palpation & inspection: normal inspection of the chest Resp: Effort & Inspection: normal respiratory effort Auscultation: clear to auscultation bilaterally Cardio: Palpation: normal PMI Rate: regular rate Rhythm: regular rhythm Heart sounds: S1 normal heart sound present, S2 normal heart sound present and no murmurs GI: Inspection: Yes obesity Palpation (GI): Soft to palpation, nontender and No hepatosplenomegaly present Auscultation: normal bowel sounds Rectal Exam - Male: Yes deferred Skin: General skin exam: no rashes or lesions noted Neuro: General: patient oriented x3, gait normal and moves all extremities Cranial nerves: Yes Equal, round and reactive pupils present Psych: Appearance: grossly normal Mental Status: mental status grossly normal Results Labs 09/08/24 06:15 09/08/24 06:15 Labs: Short CBC 09/06/24 Range/Units 06:43 Hgb 7.5 L (14.0-18.0) g/dl Hct 27.5 L (42.0-52.0) % Assessment and Plan (1) Acute anemia: Status: Acute (2) S/P right colectomy: Status: Acute Plan 59 YM with history of appendiceal adenocarcinoma status post appendicectomy with right hemicolectomy and ileocolic anastomosis, hypertension, KYM on CPAP, [id number] diabetes mellitus, mood disorder, mixed hyperlipidemia admitted to [facility] [place] on 09/04/24 with increased thirst with increased urinary frequency and dizziness upon standing x 4 days prior to presentation. Evaluation in the ED showed glucose over 600, orthostasis and JENNIFER Pt is on weekly injections with exenatide - last injection was on 08/31/24 Pt reported poor compliance with diet reporting consumption of sugary drinks FOBT was neg; no evidence of acute blood loss Labs showed H & H of 8.5 & 29.3 (decreased from 13.6 & 42.9 in 04/2024), CBC has been stable at 7.8 & 28.2 today after initial decline Pt has a low platelet count of 128, LFT showed elevated AP and normal transaminases Anemia likely a combination of CEDRIC and anemia of chronic disease. Decline in H & H over the past few months can be due to slow blood loss from UGI tract (erosive esophagitis, PUD or gastritis) RECOMMENDATIONS: 1. Agree with antiemetics 2. Start PO PPI twice daily for possible PUD 3. ALk P isoenzymes - added to am labs 4. Pt tentatively scheduled for an EGD on 09/07/24 - NPO after midnight and hold exenatide injection Procedures Date of Service Date of Service: 09/14/24
[2024-09-06 09:25] LABS: Hematocrit 28.2 % (42.0-52.0); Hemoglobin 7.8 g/dl (14.0-18.0)
[2024-09-06 09:35] LABS: Anion Gap 11 (12-20); Blood Urea Nitrogen 9 mg/dL (9-16); Calcium 8.4 mg/dL (8.4-10.2); Carbon Dioxide 29 mmol/L (22-29); Chloride 103 mmol/L (96-108); Creatinine Clr Calc Pharmacy 99.2; Estimated Glomerular Filt Rate > 60; Glucose Random 291 mg/dL (60-115); Potassium 3.6 mmol/L (3.3-5.1); Sodium 139 mmol/L (135-145)
[2024-09-06 11:33] LABS: Glucose, Whole Blood 304 mg/dL (60-115)
--- NOTE | 2024-09-06 14:29 | P.CDIM_ITS ---
PROVIDER RESPONSE TEXT: To clarify, the appropriate diagnosis supported by the clinical indicators: Iron deficiency anemia: possible iron def QUERY TEXT: PHYSICIAN'S DOCUMENTATION REQUEST Date of Query: 09/06/2024 11:11 AM EST Patient Name: Titus Benitez Admit Date: 09/04/2024 Dear Marcellus Suarez MD, A review of the medical record indicates additional documentation may be needed. Please review below and update the documentation accordingly. Clinical Indicators: LABS: Iron 9L Iron and Iron sat low Based on the above, could you clarify which of the following is the most likely type of anemia you ar e evaluating, treating, and/or monitoring? Iron deficiency anemia possible, suspected etc. Other anemia please specify Other (explain) Clinically unable to determine (explain) Thank you, Nuvia Rose, CCS, CDIS Use of terms such as suspected, likely, concern for, or probable (associated with a specific diagnosi s that is being evaluated, monitored, or treated as if it exists) are acceptable and can be coded in the inpatient se tting, when documented at the time of discharge. Please use your independent medical judgment in providing your response. THIS QUERY IS PART OF THE PERMANENT MEDICAL RECORD
[2024-09-06 15:35] VITALS: BP 154/82; PULSE 99; RESP 15; TEMP 36.1; O2SAT 95
[2024-09-06 16:03] LABS: Glucose, Whole Blood 208 mg/dL (60-115)
--- NOTE | 2024-09-06 17:02 | P.PNIM_ITS ---
Subjective Subjective Date of Service: 09/06/24 Interval History: microcytic anemia,jennifer,dm with hyperglycemia Review of Systems says dizziness some improving denies chest pain or sob h/h slowly trending down,? iron def anemia Physical Exam 2 Vital Signs: Vital Signs: Last Vital Signs Temp 96.9 F 09/06/24 15:35 Pulse 99 09/06/24 15:35 Resp 15 09/06/24 15:35 BP 154/82 H 09/06/24 15:35 Pulse Ox 95 09/06/24 15:35 O2 Del Method Room Air 09/06/24 15:35 BMI result Body Mass Index 37.9 Appearance: Alert.? Oriented X3.? cvs: rrr, [id number] . res: clear to auscultation ,no rhonchii or wheezing abd: no rebound or guarding ,nt, bs present. ext pulses present , no cyanosis . neuro: axo3 , nonfocal. Objective Data Active Medications Acetaminophen (Acetaminophen 325 Mg Tablet) 650 mg PO Q6H PRN PRN Reason: Pain, Mild 1-3,fever,headache Ascorbic Acid (Ascorbic Acid 500 Mg Tablet) 500 mg PO DAILY [facility] Last Admin: 09/06/24 08:09 Dose: 500 mg Documented By: HAYDEE Atorvastatin Calcium (Atorvastatin Calcium 10 Mg Tablet) 10 mg PO BEDTIME [facility] Last Admin: 09/05/24 21:24 Dose: 10 mg Documented By: YOSSI Buspirone HCl (Buspirone Hcl 10 Mg Tablet) 10 mg PO DAILY [facility] Last Admin: 09/06/24 08:08 Dose: 10 mg Documented By: HAYDEE Calcium Carbonate (Calcium Carbonate 750 Mg Tab.Chew) 750 mg PO Q4H PRN PRN Reason: Heartburn Ferrous Sulfate (Ferrous Sulfate 300 Mg/5 Ml Liquid) 300 mg PO BIDWM [facility] Last Admin: 09/06/24 08:08 Dose: 300 mg Documented By: HAYDEE Glucose (Glucose Gel 15 Gm Gel..Gram.) 15 gm PO Q15M PRN; Protocol PRN Reason: per Hypoglycemia Standing Ord. Dextrose (D10) 250 mls @ 750 mls/hr IV Q15M PRN; Protocol PRN Reason: per Hypoglycemia Standing Ord. Insulin Glargine (Insulin Glargine,Hum.Rec.Anlog 100 Unit/Ml 10 Ml Vial) 40 unit SUBCUT DAILY [facility] Last Admin: 09/06/24 08:08 Dose: 40 unit Documented By: HAYDEE Insulin Human Lispro (Insulin Lispro 100 Unit/Ml 3 Ml Vial) [facility]; Protocol Last Admin: 09/06/24 11:42 Dose: 8 unit Documented By: HAYDEE Insulin Human Lispro (Insulin Lispro 100 Unit/Ml 3 Ml Vial) 6 [facility] Last Admin: 09/06/24 11:43 Dose: 6 unit Documented By: HAYDEE Magnesium Hydroxide (Milk Of Magnesia 30 Ml Oral.Susp) 30 ml PO DAILY PRN PRN Reason: Constipation Melatonin (Melatonin 3 Mg Tablet) 6 mg PO BEDTIME PRN PRN Reason: Insomnia Ondansetron HCl (Ondansetron Hcl 4 Mg/2 Ml Vial) 4 mg IVPUSH Q8H PRN PRN Reason: Nausea and Vomiting Sertraline HCl (Sertraline Hcl 50 Mg Tablet) 150 mg PO BEDTIME [facility] Last Admin: 09/05/24 21:23 Dose: 150 mg Documented By: YOSSI Sodium Chloride (0.9 % Sodium Chloride Flush 3 Ml Syringe) 3 ml IVFLUSH QSHIFT [facility] Last Admin: 09/06/24 08:14 Dose: 3 ml Documented By: HAYDEE Trazodone HCl (Trazodone Hcl 50 Mg Tablet) 150 mg PO BEDTIME [facility] Last Admin: 09/05/24 21:24 Dose: 150 mg Documented By: YOSSI Vitamin D (Cholecalciferol (Vitamin D3) 25 Mcg Tablet) 25 mcg PO DAILY [facility] Last Admin: 09/06/24 08:09 Dose: 25 mcg Documented By: HAYDEE Labs 09/06/24 08:27 09/06/24 08:27 Labs: Laboratory Results - last 24 hr 09/05/24 09/06/24 09/06/24 20:10 07:48 08:27 Anion Gap 11 L Estim Creat Clear Calc 99.2 Estimated GFR > 60 POC Glucose 289 H 211 H Random Glucose 291 H Calcium 8.4 09/06/24 09/06/24 11:25 15:59 Anion Gap Estim Creat Clear Calc Estimated GFR POC Glucose 304 H 208 H Random Glucose Calcium Assessment and Plan (1) Acute anemia: Status: Acute (2) JENNIFER (acute kidney injury): Status: Acute Plan 59 yo M with history of DM, appendiceal adenoCa s/p hemicolectcomy, HTN, KYM on CPAP who presents to ED with signs and symptoms of hyperglycemia found to have glucose over 600, orthostasis and JENNIFER admitted for further treatment DM with hyperglycemia on weekly injections with exenatide; hba1c trend reviewed -- up from 7s to over 12 in about 4-5 months ? noncomplace continue lantus ,fs with sliding scale. orthostasis seems improving microcytic anemia FOBT neg; no evidence of acute blood loss check iron studies-iron and iron sat low,tibc normal gi-notes -? on/off haemrroidal bleed but h/h drop significantly since h/h: 7.5 /26.7 last scope in May 2024 showig normal colon, anstomosis and ileal mucosa + interal/exteral hemorroids moniter cbc if further drop < 7 , need transfusion. added Gi eval. JENNIFER SCr more than 2x baseline on presentation, improving given ivf -seems improving HTN hold bp meds HLD statin KYM cpap while sleeping morbid obesity-encouraged to lose weight cut down calories. full code dvt pptx - mechanical due to significant anemia Quality Stroke Does the patient have a stroke diagnosis?: No VTE Prior VTE?: No VTE Risk Level:: Medical - moderate - high VTE Device Contraindication: N/A - Device Ordered VTE Drug Contraindication: Treatment Not Indicated
[2024-09-06 19:02] VITALS: BP 124/72; PULSE 93; RESP 15; TEMP 37.2; O2SAT 90
[2024-09-06] MEDS: Omeprazole 20 MG CAPSULE.DR PO (19:14)
[2024-09-06 19:36] VITALS: O2SAT 93
[2024-09-06 20:10] LABS: Glucose, Whole Blood 260 mg/dL (60-115)
[2024-09-06] MEDS: Sertraline HCL 50 MG TABLET 150 MG PO (20:30)
[2024-09-06] MEDS: Atorvastatin Calcium 10 MG TABLET PO (20:30)
[2024-09-06] MEDS: traZODone HCL 50 MG TABLET 150 MG PO (20:30)
[2024-09-07] VITALS (15 sets, daily range): BP systolic 88–179; BP diastolic 40–88; PULSE 85–112; RESP 16–23; TEMP 36.3–37; O2SAT 93–99
[2024-09-07] MEDS: Omeprazole 20 MG CAPSULE.DR PO (05:43)
[2024-09-07 06:47] LABS: Hematocrit 26.8 % (42.0-52.0); Hemoglobin 7.4 g/dl (14.0-18.0)
[2024-09-07 07:21] LABS: Ferritin 9 ng/mL (20-250)
[2024-09-07 07:51] LABS: Glucose, Whole Blood 169 mg/dL (60-115)
[2024-09-07] MEDS: Insulin Lispro 100 UNIT/ML 3 ML VIAL 6 UNIT SUBCUT ×2 (08:23→20:47)
[2024-09-07] MEDS: Insulin Glargine,Hum.rec.anlog 100 UNIT/ML 10 ML VIAL 40 UNIT SUBCUT (08:23)
[2024-09-07] MEDS: Insulin Lispro 100 UNIT/ML 3 ML VIAL SUBCUT ×2 (08:23→20:47)
[2024-09-07] MEDS: busPIRone HCl 10 MG TABLET PO (08:24)
[2024-09-07] MEDS: Ferrous Sulfate 300 MG/5 ML LIQUID PO ×2 (08:24→18:20)
[2024-09-07] MEDS: Cholecalciferol (Vitamin D3) 25 MCG TABLET PO (08:25)
[2024-09-07] MEDS: Ascorbic Acid 500 MG TABLET PO (08:25)
[2024-09-07] MEDS: 0.9 % Sodium Chloride Flush 3 ML SYRINGE IVFLUSH ×3 (08:29→20:48)
[2024-09-07] MEDS: Dextrose 5 % and 0.9 % NaCl 1,000 ML 100 ML IVCONT (08:49)
--- NOTE | 2024-09-07 10:29 | MHC.CM.PN ---
PER MD ROUNDS, PLAN IS FOR PT TO HAVE A SCOPE TODAY. PT MAY DC THIS AFTERNOON PENDING RESULTS DCP: HOME WITH RESUMPTION OF [facility] SERVICES TO TRANSPORT
[2024-09-07 10:51] LABS: Glucose, Whole Blood 208 mg/dL (60-115)
--- NOTE | 2024-09-07 12:51 | PC.NURSE ---
11:30 insulin dose held per MD as pt is NPO and waiting for scheduled EGD
--- NOTE | 2024-09-07 13:46 | P.CONAN_ITS ---
[facility] Active Problems Active Problems: All Active Problems Acute anemia (Acute) Acute hyperglycemia (Acute) JENNIFER (acute kidney injury) (Acute) Bright red rectal bleeding (Acute) Prolonged QT interval (Acute) History of colon cancer (Acute) Infected cyst of skin (Acute) Cellulitis of abdominal wall (Acute) Intra-abdominal abscess (Acute) S/P right colectomy (Acute) JENNIFER (acute kidney injury) (Acute) Varicose veins of right lower extremity with inflammation (Acute) KYM (obstructive sleep apnea) (Acute) Primary appendiceal adenocarcinoma (Chronic) Diarrhea (Acute) Morbid obesity (Acute) Umbilical hernia (Acute) Obesity (BMI 30-39.9) (Acute) Dyslipidemia (Acute) HTN (hypertension) (Acute) Diabetic nephropathy associated with type 2 diabetes mellitus (Acute) Epidermal cyst (Acute) Diabetes type 2, controlled (Acute) Past Medical History Medical History History of colon cancer Infected cyst of skin Cellulitis of abdominal wall Eye inflammation Sleep apnea Ambulates with cane Back pain due to injury Morbid obesity Umbilical hernia Obesity (BMI 30-39.9) Dyslipidemia Diabetic nephropathy associated with type 2 diabetes mellitus Epidermal cyst HTN (hypertension) Diabetes type 2, controlled Family History Family History Father Diabetes Heart disease Mother Diabetes Heart disease Other No family history of cancer Family history of problems with anesthesia: No Surgical History Surgical History History of colon resection H/O colonoscopy S/P appendectomy History of umbilical hernia repair (~01/08/22) Hx of removal of cyst History of Problems with Anesthesia: No Social History Social History Household Members: Spouse Housing: House Are you a primary foster care therapist to a significant other at home: No Do you presently have visiting nurse or other home services: No Alcohol intake: never Comment: Ofirmev infusing at time of xfer Patient Tobacco Use Status: Never used Tobacco service: No Current occupational status: disabled Meds Allergies Allergy/AdvReac Type Severity Reaction Status Date / Time lisinopril [LISINOPRIL] Allergy Mild RASH Verified 09/07/24 13:32 oxaliplatin Allergy Shortness Verified 09/07/24 13:32 of Breath Active Medications: Current Medications Acetaminophen (Acetaminophen 325 Mg Tablet) 650 mg PO Q6H PRN PRN Reason: Pain, Mild 1-3,fever,headache Ascorbic Acid (Ascorbic Acid 500 Mg Tablet) 500 mg PO DAILY [facility] Last Admin: 09/07/24 08:25 Dose: 500 mg Atorvastatin Calcium (Atorvastatin Calcium 10 Mg Tablet) 10 mg PO BEDTIME [facility] Last Admin: 09/06/24 20:30 Dose: 10 mg Buspirone HCl (Buspirone Hcl 10 Mg Tablet) 10 mg PO DAILY [facility] Last Admin: 09/07/24 08:24 Dose: 10 mg Calcium Carbonate (Calcium Carbonate 750 Mg Tab.Chew) 750 mg PO Q4H PRN PRN Reason: Heartburn Ferrous Sulfate (Ferrous Sulfate 300 Mg/5 Ml Liquid) 300 mg PO BIDWM [facility] Last Admin: 09/07/24 08:24 Dose: 300 mg Glucose (Glucose Gel 15 Gm Gel..Gram.) 15 gm PO Q15M PRN; Protocol PRN Reason: per Hypoglycemia Standing Ord. Dextrose (D10) 250 mls @ 750 mls/hr IV Q15M PRN; Protocol PRN Reason: per Hypoglycemia Standing Ord. Dextrose/Sodium Chloride (D5ns) 1,000 mls @ 100 mls/hr IVCONT .Q10H [facility] Last Admin: 09/07/24 08:49 Dose: 100 mls/hr Insulin Glargine (Insulin Glargine,Hum.Rec.Anlog 100 Unit/Ml 10 Ml Vial) 40 unit SUBCUT DAILY [facility] Last Admin: 09/07/24 08:23 Dose: 40 unit Insulin Human Lispro (Insulin Lispro 100 Unit/Ml 3 Ml Vial) 0 unit SUBCUT QIDACHS [facility]; Protocol Last Admin: 09/07/24 12:49 Dose: Not Given Insulin Human Lispro (Insulin Lispro 100 Unit/Ml 3 Ml Vial) 6 unit SUBCUT QIDACHS [facility] Last Admin: 09/07/24 11:49 Dose: Not Given Magnesium Hydroxide (Milk Of Magnesia 30 Ml Oral.Susp) 30 ml PO DAILY PRN PRN Reason: Constipation Melatonin (Melatonin 3 Mg Tablet) 6 mg PO BEDTIME PRN PRN Reason: Insomnia Naloxone HCl (Naloxone Hcl 0.4 Mg/Ml Vial) 0.04 mg IVPUSH Q5M PRN PRN Reason: Excessive sedation or RR < 8 Omeprazole (Omeprazole 20 Mg Capsule.Dr) 20 mg PO BID@0630,1630 [facility] Last Admin: 09/07/24 05:43 Dose: 20 mg Ondansetron HCl (Ondansetron Hcl 4 Mg/2 Ml Vial) 4 mg IVPUSH Q8H PRN PRN Reason: Nausea and Vomiting Sertraline HCl (Sertraline Hcl 50 Mg Tablet) 150 mg PO BEDTIME [facility] Last Admin: 09/06/24 20:30 Dose: 150 mg Sodium Chloride (0.9 % Sodium Chloride Flush 3 Ml Syringe) 3 ml IVFLUSH QSHIFT [facility] Last Admin: 09/07/24 08:29 Dose: 3 ml Trazodone HCl (Trazodone Hcl 50 Mg Tablet) 150 mg PO BEDTIME [facility] Last Admin: 09/06/24 20:30 Dose: 150 mg Vitamin D (Cholecalciferol (Vitamin D3) 25 Mcg Tablet) 25 mcg PO DAILY [facility] Last Admin: 09/07/24 08:25 Dose: 25 mcg Home Medications ?Medication ?Instructions ?Recorded ?Confirmed ?Last Taken ?Type atorvastatin 10 mg tablet 10 mg PO BEDTIME 10/22/20 09/04/24 09/03/24 History carvedilol 12.5 mg tablet 12.5 mg PO BID 10/22/20 09/04/24 09/03/24 History cholecalciferol (vitamin D3) 25 25 mcg PO DAILY 10/22/20 09/04/24 09/03/24 History mcg (1,000 unit) capsule trazodone 150 mg tablet 150 mg PO BEDTIME 11/04/20 09/04/24 09/03/24 History sertraline 100 mg tablet 150 mg PO BEDTIME 01/04/22 09/04/24 09/03/24 History hydrochlorothiazide 25 mg tablet 25 mg PO DAILY 08/02/23 09/04/24 09/03/24 History buspirone 10 mg tablet 10 mg PO DAILY 09/20/23 09/04/24 09/03/24 History clotrimazole 1 % topical cream 1 appl topical BID PRN Rash 09/20/23 09/04/24 09/03/24 History fluticasone propionate 50 1 - 2 spray intranasal DAILY PRN 04/09/24 09/04/24 09/03/24 History mcg/actuation nasal cold and allergies spray,suspension exenatide microspheres 2 mg/0.85 2 mg subcut FR 05/15/24 09/04/24 08/31/24 History mL subcutaneous auto-injector (Jewell Rivas) Exam Height,Weight and Vital Signs: Height 5 ft 10 in Weight 119.8 kg Last Vital Signs Temp 97.8 F 09/07/24 07:22 Pulse 87 09/07/24 07:22 Resp 16 09/07/24 07:22 BP 107/56 L 09/07/24 07:22 Pulse Ox 97 09/07/24 07:22 O2 Del Method Room Air 09/07/24 07:22 Pertinent Lab Results Pertinent Lab Results: Laboratory Tests 09/04/24 09/04/24 09/04/24 00:27 00:53 00:58 WBC 5.8 RBC 4.00 L Hgb 8.5 L D Hct 29.3 L D MCV 73.3 L MCH 21.3 L MCHC 29.0 L RDW 17.1 H Plt Count 145 L MPV 10.9 Immature Gran % (Auto) 0.3 Neut % (Auto) 68.4 Lymph % (Auto) 23.8 Allen % (Auto) 6.7 Eos % (Auto) 0.5 Baso % (Auto) 0.3 Lymph # (Auto) 1.4 Allen # (Auto) 0.4 Eos # (Auto) 0.0 Baso # (Auto) 0.0 Abs Immat Gran (auto) 0.02 Absolute Neuts (auto) 4.0 Absolute Nucleated RBC 0.000 Nucleated RBC % (auto) 0.0 VBG pH 7.38 VBG pCO2 63 VBG pO2 23 VBG HCO3 38 H VBG O2 Saturation Not Reportable VBG Base Excess 11.2 Sodium 134 L Potassium 4.2 Chloride 92 L Carbon Dioxide 31 H Anion Gap 15 BUN 23 H Creatinine 1.70 H Estim Creat Clear Calc 61.2 Estimated GFR 41 POC Glucose 598 H* Random Glucose 619 H* Estimat Average Glucose 324 Hemoglobin A1c % 12.9 H Calcium 9.2 Iron TIBC % Saturation Unsat Iron Binding Ferritin Total Bilirubin 0.3 AST 24 ALT 20 Alkaline Phosphatase 162 H Total Protein 7.7 Albumin 4.1 Beta-Hydroxybutyrate 0.10 Urine Color Urine Appearance Urine pH Ur Specific [place] Urine Protein Urine Glucose (UA) Urine Ketones Urine Blood Urine Nitrite Ur Leukocyte Esterase Urine RBC Urine WBC Ur Squamous Epith Cells Urine Bacteria Hyaline Casts Stool Occult Blood Blood Type Antibody Screen 09/04/24 09/04/24 09/04/24 02:08 02:24 03:39 WBC RBC Hgb Hct MCV MCH MCHC RDW Plt Count MPV Immature Gran % (Auto) Neut % (Auto) Lymph % (Auto) Allen % (Auto) Eos % (Auto) Baso % (Auto) Lymph # (Auto) [place] # (Auto) Eos # (Auto) Baso # (Auto) Abs Immat Gran (auto) Absolute Neuts (auto) Absolute Nucleated RBC Nucleated RBC % (auto) VBG pH VBG pCO2 VBG pO2 VBG HCO3 VBG O2 Saturation VBG Base Excess Sodium Potassium Chloride Carbon Dioxide Anion Gap BUN Creatinine Estim Creat Clear Calc Estimated GFR POC Glucose 380 H* Random Glucose Estimat Average Glucose Hemoglobin A1c % Calcium Iron TIBC % Saturation Unsat Iron Binding Ferritin Total Bilirubin AST ALT Alkaline Phosphatase Total Protein Albumin Beta-Hydroxybutyrate Urine Color Yellow Urine Appearance Clear Urine pH 5.5 Ur Specific [place] >= 1.030 H Urine Protein Negative Urine Glucose (UA) >=1000 H Urine Ketones Negative Urine Blood Negative Urine Nitrite Negative Ur Leukocyte Esterase Negative Urine RBC 0-2 Urine WBC 0-5 Ur Squamous Epith Cells 0-2 Urine Bacteria None Seen Hyaline Casts 0-2 Stool Occult Blood NEGATIVE Blood Type O Positive Antibody Screen NEGATIVE 09/04/24 09/04/24 09/04/24 05:13 05:27 07:25 WBC 5.9 RBC 3.69 L Hgb 7.7 L Hct 27.0 L MCV 73.2 L MCH 20.9 L MCHC 28.5 L RDW 16.9 H Plt Count 128 L MPV TNP Immature Gran % (Auto) 0.7 H Neut % (Auto) 67.3 Lymph % (Auto) 21.9 Allen % (Auto) 9.0 Eos % (Auto) 0.8 Baso % (Auto) 0.3 Lymph # (Auto) 1.3 Allen # (Auto) 0.5 Eos # (Auto) 0.1 Baso # (Auto) 0.0 Abs Immat Gran (auto) 0.04 H Absolute Neuts (auto) 4.0 Absolute Nucleated RBC 0.020 H Nucleated RBC % (auto) 0.3 H VBG pH VBG pCO2 VBG pO2 VBG HCO3 VBG O2 Saturation VBG Base Excess Sodium 136 Potassium 3.7 Chloride 96 Carbon Dioxide 31 H Anion Gap 13 BUN 20 H Creatinine 1.32 Estim Creat Clear Calc 78.9 Estimated GFR 56 POC Glucose 308 H 335 H Random Glucose 382 H* Estimat Average Glucose Hemoglobin A1c % Calcium 8.6 D Iron TIBC % Saturation Unsat Iron Binding Ferritin Total Bilirubin AST ALT Alkaline Phosphatase Total Protein Albumin Beta-Hydroxybutyrate Urine Color Urine Appearance Urine pH Ur Specific [place] Urine Protein Urine Glucose (UA) Urine Ketones Urine Blood Urine Nitrite Ur Leukocyte Esterase Urine RBC Urine WBC Ur Squamous Epith Cells Urine Bacteria Hyaline Casts Stool Occult Blood Blood Type Antibody Screen 09/04/24 09/04/24 09/04/24 11:37 12:35 17:00 WBC RBC Hgb Hct MCV MCH MCHC RDW Plt Count MPV Immature Gran % (Auto) Neut % (Auto) Lymph % (Auto) [place] % (Auto) Eos % (Auto) Baso % (Auto) Lymph # (Auto) [place] # (Auto) Eos # (Auto) Baso # (Auto) Abs Immat Gran (auto) Absolute Neuts (auto) Absolute Nucleated RBC Nucleated RBC % (auto) VBG pH VBG pCO2 VBG pO2 VBG HCO3 VBG O2 Saturation VBG Base Excess Sodium Potassium Chloride Carbon Dioxide Anion Gap BUN Creatinine Estim Creat Clear Calc Estimated GFR POC Glucose 376 H* 281 H Random Glucose Estimat Average Glucose Hemoglobin A1c % Calcium Iron 9 L TIBC 294 % Saturation 3 L Unsat Iron Binding 285 Ferritin Total Bilirubin AST ALT Alkaline Phosphatase Total Protein Albumin Beta-Hydroxybutyrate Urine Color Urine Appearance Urine pH Ur Specific [place] Urine Protein Urine Glucose (UA) Urine Ketones Urine Blood Urine Nitrite Ur Leukocyte Esterase Urine RBC Urine WBC Ur Squamous Epith Cells Urine Bacteria Hyaline Casts Stool Occult Blood Blood Type Antibody Screen 09/04/24 09/05/24 09/05/24 19:25 07:30 08:16 WBC RBC Hgb 7.5 L Hct 26.7 L MCV MCH MCHC RDW Plt Count MPV Immature Gran % (Auto) Neut % (Auto) Lymph % (Auto) [place] % (Auto) Eos % (Auto) Baso % (Auto) Lymph # (Auto) [place] # (Auto) Eos # (Auto) Baso # (Auto) Abs Immat Gran (auto) Absolute Neuts (auto) Absolute Nucleated RBC Nucleated RBC % (auto) VBG pH VBG pCO2 VBG pO2 VBG HCO3 VBG O2 Saturation VBG Base Excess Sodium Potassium Chloride Carbon Dioxide Anion Gap BUN Creatinine Estim Creat Clear Calc Estimated GFR POC Glucose 402 H* 328 H Random Glucose Estimat Average Glucose Hemoglobin A1c % Calcium Iron TIBC % Saturation Unsat Iron Binding Ferritin Total Bilirubin AST ALT Alkaline Phosphatase Total Protein Albumin Beta-Hydroxybutyrate Urine Color Urine Appearance Urine pH Ur Specific [place] Urine Protein Urine Glucose (UA) Urine Ketones Urine Blood Urine Nitrite Ur Leukocyte Esterase Urine RBC Urine WBC Ur Squamous Epith Cells Urine Bacteria Hyaline Casts Stool Occult Blood Blood Type Antibody Screen 09/05/24 09/05/24 09/05/24 11:15 16:00 20:10 WBC RBC Hgb Hct MCV MCH MCHC RDW Plt Count MPV Immature Gran % (Auto) Neut % (Auto) Lymph % (Auto) [place] % (Auto) Eos % (Auto) Baso % (Auto) Lymph # (Auto) [place] # (Auto) Eos # (Auto) Baso # (Auto) Abs Immat Gran (auto) Absolute Neuts (auto) Absolute Nucleated RBC Nucleated RBC % (auto) VBG pH VBG pCO2 VBG pO2 VBG HCO3 VBG O2 Saturation VBG Base Excess Sodium Potassium Chloride Carbon Dioxide Anion Gap BUN Creatinine Estim Creat Clear Calc Estimated GFR POC Glucose 395 H* 293 H 289 H Random Glucose Estimat Average Glucose Hemoglobin A1c % Calcium Iron TIBC % Saturation Unsat Iron Binding Ferritin Total Bilirubin AST ALT Alkaline Phosphatase Total Protein Albumin Beta-Hydroxybutyrate Urine Color Urine Appearance Urine pH Ur Specific [place] Urine Protein Urine Glucose (UA) Urine Ketones Urine Blood Urine Nitrite Ur Leukocyte Esterase Urine RBC Urine WBC Ur Squamous Epith Cells Urine Bacteria Hyaline Casts Stool Occult Blood Blood Type Antibody Screen 09/06/24 09/06/24 09/06/24 06:43 07:48 08:27 WBC RBC Hgb 7.5 L 7.8 L Hct 27.5 L 28.2 L MCV MCH MCHC RDW Plt Count MPV Immature Gran % (Auto) Neut % (Auto) Lymph % (Auto) [place] % (Auto) Eos % (Auto) Baso % (Auto) Lymph # (Auto) [place] # (Auto) Eos # (Auto) Baso # (Auto) Abs Immat Gran (auto) Absolute Neuts (auto) Absolute Nucleated RBC Nucleated RBC % (auto) VBG pH VBG pCO2 VBG pO2 VBG HCO3 VBG O2 Saturation VBG Base Excess Sodium 139 Potassium 3.6 Chloride 103 Carbon Dioxide 29 Anion Gap 11 L BUN 9 Creatinine 1.04 Estim Creat Clear Calc 99.2 Estimated GFR > 60 POC Glucose 211 H Random Glucose 291 H Estimat Average Glucose Hemoglobin A1c % Calcium 8.4 Iron TIBC % Saturation Unsat Iron Binding Ferritin Total Bilirubin AST ALT Alkaline Phosphatase Total Protein Albumin Beta-Hydroxybutyrate Urine Color Urine Appearance Urine pH Ur Specific [place] Urine Protein Urine Glucose (UA) Urine Ketones Urine Blood Urine Nitrite Ur Leukocyte Esterase Urine RBC Urine WBC Ur Squamous Epith Cells Urine Bacteria Hyaline Casts Stool Occult Blood Blood Type Antibody Screen 09/06/24 09/06/24 09/06/24 11:25 15:59 20:05 WBC RBC Hgb Hct MCV MCH MCHC RDW Plt Count MPV Immature Gran % (Auto) Neut % (Auto) Lymph % (Auto) [place] % (Auto) Eos % (Auto) Baso % (Auto) Lymph # (Auto) [place] # (Auto) Eos # (Auto) Baso # (Auto) Abs Immat Gran (auto) Absolute Neuts (auto) Absolute Nucleated RBC Nucleated RBC % (auto) VBG pH VBG pCO2 VBG pO2 VBG HCO3 VBG O2 Saturation VBG Base Excess Sodium Potassium Chloride Carbon Dioxide Anion Gap BUN Creatinine Estim Creat Clear Calc Estimated GFR POC Glucose 304 H 208 H 260 H Random Glucose Estimat Average Glucose Hemoglobin A1c % Calcium Iron TIBC % Saturation Unsat Iron Binding Ferritin Total Bilirubin AST ALT Alkaline Phosphatase Total Protein Albumin Beta-Hydroxybutyrate Urine Color Urine Appearance Urine pH Ur Specific [place] Urine Protein Urine Glucose (UA) Urine Ketones Urine Blood Urine Nitrite Ur Leukocyte Esterase Urine RBC Urine WBC Ur Squamous Epith Cells Urine Bacteria Hyaline Casts Stool Occult Blood Blood Type Antibody Screen 09/07/24 09/07/24 09/07/24 05:43 07:27 10:46 WBC RBC Hgb 7.4 L Hct 26.8 L MCV MCH MCHC RDW Plt Count MPV Immature Gran % (Auto) Neut % (Auto) Lymph % (Auto) [place] % (Auto) Eos % (Auto) Baso % (Auto) Lymph # (Auto) [place] # (Auto) Eos # (Auto) Baso # (Auto) Abs Immat Gran (auto) Absolute Neuts (auto) Absolute Nucleated RBC Nucleated RBC % (auto) VBG pH VBG pCO2 VBG pO2 VBG HCO3 VBG O2 Saturation VBG Base Excess Sodium Potassium Chloride Carbon Dioxide Anion Gap BUN Creatinine Estim Creat Clear Calc Estimated GFR POC Glucose 169 H 208 H Random Glucose Estimat Average Glucose Hemoglobin A1c % Calcium Iron TIBC % Saturation Unsat Iron Binding Ferritin 9 L Total Bilirubin AST ALT Alkaline Phosphatase Total Protein Albumin Beta-Hydroxybutyrate Urine Color Urine Appearance Urine pH Ur Specific [place] Urine Protein Urine Glucose (UA) Urine Ketones Urine Blood Urine Nitrite Ur Leukocyte Esterase Urine RBC Urine WBC Ur Squamous Epith Cells Urine Bacteria Hyaline Casts Stool Occult Blood Blood Type Antibody Screen Airway Mallampati Class: II (caps laterally, thock neck) TM Dist: >3cm Neck ROM: Full Heart: rrr Lungs: cta Assessment and Plan Assessment Anesthesia Assessment: Anesthesia Plan Discussed and Chart Reviewed Final Anesthetic Review Family History of Problems with Anesthesia: No History of Problems with Anesthesia: No NPO: Yes ASA Class: III Final Preanesthetic Review: No Changes in Pt Med Stat, Meds/Allgs Chart Reviewed and Consent Obtained/Reviewed Patient Risk: Intermediate Procedure Risk: Intermediate Anesthetic Plan Anesthetic Plan: MAC: Disposition: Standard PACU
[2024-09-07 14:02] LABS: Glucose, Whole Blood 177 mg/dL (60-115)
--- NOTE | 2024-09-07 14:15 | MHC.SHP ---
Pre-Procedural Eval Section A - 24 Hr Update-Section A only Date of Service: 09/07/24 The patient is an INPATIENT: No Changes since office visit: Yes New Medical Problems, Yes Changes in Medication and Yes Patient answered all questions; No Cold of Flu in the past 2 weeks The patient has been examined within 24 hours of the surgical procedure. The History & Physical has been completed within 30 days and I have reviewed it.: Yes Section B - Complete if H&P > 30 days Chief Complaint: Increased urination Allergies: Allergies Allergy/AdvReac Type Severity Reaction Status Date / Time lisinopril [LISINOPRIL] Allergy Mild RASH Verified 09/07/24 13:32 oxaliplatin Allergy Shortness Verified 09/07/24 13:32 of Breath Plan Diagnosis/Plan: Unchanged I have reviewed the history and physical and performed a pertinent physical examination on my patient. No changes have occurred unless specified. Time Spent With Patient Time: Total time managing care of this patient today ____ minutes.
[2024-09-07] MEDS: Lactated Ringers 1,000 ML 80 ML IVCONT (14:22)
--- NOTE | 2024-09-07 14:41 | W.PM.OPN ---
Operative Note Operative Note Date of Service: 09/07/24 Narrative: FLEXIBLE TRANSORAL UPPER GASTROINTESTINAL ENDOSCOPY WITH BIOPSIES Pre-op diagnosis: Acute on chronic anemia Post-op diagnosis: GERD, Gastritis, Endoscopist:? Jacquelyn Ventura MD Anesthesia:?MAC UPPER ENDOSCOPY Consent: Indications for the procedure and potential complications of bleeding, perforation, reaction to medications and missed diagnosis were discussed with the patient and informed consent was obtained. Instrument: Olympus GIF H 190 mid size upper endoscope Monitoring: Vital signs and clinical assessment, continuous EKG monitoring, Pulse oximetry, Carbon Dioxide monitoring and blood pressure monitoring were done throughout the procedure. Procedure: The patient was placed in the left lateral decubitis position and pre-procedure medications were administered and a bite block was placed. The endoscope was inserted into the mouth and advanced under direct vision to the third part of duodenum. A careful inspection was made as the upper endoscope was withdrawn including a retroflexed examination of the proximal stomach; Findings and interventions are described below. Findings: Larynx: Normal Esophagus: GE junction at 40 cms. A single 1 cms superficial healing erosion at the GE junction Stomach: Moderate gastric antral erythema - biopsies were obtained from the antrum to check for H Pylori. Grade 2 flap valve on retroflexed examination of the cardia. Duodenum: Normal bulb and descending duodenum. Biopsies were obtained from 3rd part of the duodenum to check for celiac sprue Intervention: Biopsies as noted above Impression and Post Procedure Diagnosis: Endoscopy Findings: ESOPHAGUS: A single 1 cms superficial healing erosion at the GE junction STOMACH: Antral gastritis DUODENUM: Normal - biopsied to check for celiac sprue No potential source found for anemia or GI bleeding - iron studies show a combination of anemia of chronic disease +/- iron def anemia Plan: Continue Omeprazole 20 mg once a day [place] of ferrous sulfate once daily and have repeat CBC checked by PCP in 2 weeks I will contact the patient with biopsy results Pt can schedule a FU appointment with Dr Robles if he continues to have anemia Above findings were reviewed with the patient and relevant handouts were given and the discharge area. BIOPSIES SHOWED: A. Small bowel, biopsy: Small bowel/duodenal mucosa with preserved villi and no specific change; no evidence of celiac disease. B. Gastric antrum, biopsy: Gastric antral mucosa with mild reactive changes and minimal chronic inactive gastritis; negative for intestinal metaplasia and dysplasia. Comment: (B): Immunostain for H. pylori was negative
[2024-09-07 16:42] LABS: Glucose, Whole Blood 144 mg/dL (60-115)
--- NOTE | 2024-09-07 17:36 | P.PNIM_ITS ---
Subjective Subjective Date of Service: 09/07/24 Interval History: microcytic anemia,jennifer,dm with hyperglycemia Review of Systems sob /desatted after egd procedure -? aspiration sats slowly improved has cough dry Physical Exam 2 Vital Signs: Vital Signs: Last Vital Signs Temp 97.3 F 09/07/24 16:31 Pulse 97 09/07/24 16:31 Resp 18 09/07/24 16:31 BP 137/63 09/07/24 16:31 Pulse Ox 97 09/07/24 16:31 O2 Del Method Room Air 09/07/24 16:31 BMI result Body Mass Index 37.9 Appearance: Alert.? Oriented X3.? cvs: rrr, [id number] . res: clear to auscultation ,no rhonchii or wheezing abd: no rebound or guarding ,nt, bs present. ext pulses present , no cyanosis . neuro: axo3 , nonfocal. Objective Data Active Medications Acetaminophen (Acetaminophen 325 Mg Tablet) 650 mg PO Q6H PRN PRN Reason: Pain, Mild 1-3,fever,headache Ascorbic Acid (Ascorbic Acid 500 Mg Tablet) 500 mg PO DAILY [facility] Last Admin: 09/07/24 08:25 Dose: 500 mg Documented By: HAYDEE Atorvastatin Calcium (Atorvastatin Calcium 10 Mg Tablet) 10 mg PO BEDTIME [facility] Last Admin: 09/06/24 20:30 Dose: 10 mg Documented By: YOSSI Buspirone HCl (Buspirone Hcl 10 Mg Tablet) 10 mg PO DAILY [facility] Last Admin: 09/07/24 08:24 Dose: 10 mg Documented By: HAYDEE Calcium Carbonate (Calcium Carbonate 750 Mg Tab.Chew) 750 mg PO Q4H PRN PRN Reason: Heartburn Ferrous Sulfate (Ferrous Sulfate 300 Mg/5 Ml Liquid) 300 mg PO BIDWM [facility] Last Admin: 09/07/24 08:24 Dose: 300 mg Documented By: HAYDEE Glucose (Glucose Gel 15 Gm Gel..Gram.) 15 gm PO Q15M PRN; Protocol PRN Reason: per Hypoglycemia Standing Ord. Dextrose (D10) 250 mls @ 750 mls/hr IV Q15M PRN; Protocol PRN Reason: per Hypoglycemia Standing Ord. Dextrose/Sodium Chloride (D5ns) 1,000 mls @ 100 mls/hr IVCONT .Q10H [facility] Last Admin: 09/07/24 08:49 Dose: 100 mls/hr Documented By: HAYDEE Lactated Ringer's (Lr) 1,000 mls @ 80 mls/hr IVCONT .[id number] [facility] Last Admin: 09/07/24 14:22 Dose: 80 mls/hr Documented By: KARISSA Insulin Glargine (Insulin Glargine,Hum.Rec.Anlog 100 Unit/Ml 10 Ml Vial) 40 unit SUBCUT DAILY [facility] Last Admin: 09/07/24 08:23 Dose: 40 unit Documented By: HAYDEE Insulin Human Lispro (Insulin Lispro 100 Unit/Ml 3 Ml Vial) 0 unit SUBCUT QIDACHS [facility]; Protocol Last Admin: 09/07/24 12:49 Dose: Not Given Documented By: HAYDEE Non-Admin Reason: Physician Held Med Insulin Human Lispro (Insulin Lispro 100 Unit/Ml 3 Ml Vial) 6 unit SUBCUT QIDACHS [facility] Last Admin: 09/07/24 11:49 Dose: Not Given Documented By: HAYDEE Non-Admin Reason: Physician Held Med Magnesium Hydroxide (Milk Of Magnesia 30 Ml Oral.Susp) 30 ml PO DAILY PRN PRN Reason: Constipation Melatonin (Melatonin 3 Mg Tablet) 6 mg PO BEDTIME PRN PRN Reason: Insomnia Naloxone HCl (Naloxone Hcl 0.4 Mg/Ml Vial) 0.04 mg IVPUSH Q5M PRN PRN Reason: Excessive sedation or RR < 8 Naloxone HCl (Naloxone Hcl 0.4 Mg/Ml Vial) 0.04 mg IVPUSH Q5M PRN PRN Reason: Excessive sedation or RR < 8 Omeprazole (Omeprazole 20 Mg Capsule.Dr) 20 mg PO BID@0630,1630 [facility] Last Admin: 09/07/24 05:43 Dose: 20 mg Documented By: YOSSI Ondansetron HCl (Ondansetron Hcl 4 Mg/2 Ml Vial) 4 mg IVPUSH Q8H PRN PRN Reason: Nausea and Vomiting Sertraline HCl (Sertraline Hcl 50 Mg Tablet) 150 mg PO BEDTIME [facility] Last Admin: 09/06/24 20:30 Dose: 150 mg Documented By: YOSSI Sodium Chloride (0.9 % Sodium Chloride Flush 3 Ml Syringe) 3 ml IVFLUSH QSHIFT [facility] Last Admin: 09/07/24 08:29 Dose: 3 ml Documented By: HAYDEE Trazodone HCl (Trazodone Hcl 50 Mg Tablet) 150 mg PO BEDTIME [facility] Last Admin: 09/06/24 20:30 Dose: 150 mg Documented By: YOSSI Vitamin D (Cholecalciferol (Vitamin D3) 25 Mcg Tablet) 25 mcg PO DAILY [facility] Last Admin: 09/07/24 08:25 Dose: 25 mcg Documented By: HAYDEE Labs 09/07/24 05:43 09/06/24 08:27 Labs: Laboratory Results - last 24 hr 09/06/24 09/07/24 09/07/24 20:05 05:43 07:27 POC Glucose 260 H 169 H Ferritin 9 L 09/07/24 09/07/24 09/07/24 10:46 13:46 16:38 POC Glucose 208 H 177 H 144 H Ferritin Assessment and Plan (1) Acute anemia: Status: Acute (2) JENNIFER (acute kidney injury): Status: Acute Assessment and Plan: 59 yo M with history of DM, appendiceal adenoCa s/p hemicolectcomy, HTN, KYM on CPAP who presents to ED with signs and symptoms of hyperglycemia found to have glucose over 600, orthostasis and JENNIFER admitted for further treatment DM with hyperglycemia on weekly injections with exenatide; hba1c trend reviewed -- up from 7s to over 12 in about 4-5 months ? noncomplace continue lantus ,fs with sliding scale. orthostasis seems improving moniter osthosatsis microcytic anemia FOBT neg; no evidence of acute blood loss check iron studies-iron and iron sat low,tibc normal gi-notes -? on/off haemrroidal bleed but h/h drop significantly since h/h: 7.4 /26.8( his hb will be around -9 range when compared with hct). last scope in May 2024 showig normal colon, anstomosis and ileal mucosa + interal/exteral hemorroids Gi eval s/p egd: esophagus : A single 1 cms superficial healing erosion at the GE junction Stomach: Antral gastritis Duodenum: Normal - biopsied to check for celiac sprue. No potential source found for anemia or GI bleeding - iron studies show a combination of anemia of chronic disease +/- iron def anemia. plan:Continue Omeprazole 20 mg once a day,Oxbow of ferrous sulfate once daily and have repeat CBC checked by PCP in 2 weeks, follow up with biopsy results Pt can schedule a FU appointment with Dr Robles if he continues to have anemia. Post egd : took longer for him to regain sats , has some cough and throat soarness cxr added ? aspiration. nebs prn incentive spirometry,moniter pulse oximetry. JENNIFER SCr more than 2x baseline on presentation, improving given ivf -seems improving HTN hold bp meds HLD statin KYM cpap while sleeping morbid obesity-encouraged to lose weight cut down calories. dvt pptx - mechanical due to significant anemia Quality Stroke Does the patient have a stroke diagnosis?: No VTE Prior VTE?: No VTE Risk Level:: Medical - moderate - high VTE Device Contraindication: N/A - Device Ordered VTE Drug Contraindication: Treatment Not Indicated
[2024-09-07 20:12] LABS: Glucose, Whole Blood 244 mg/dL (60-115)
[2024-09-07] MEDS: Sertraline HCL 50 MG TABLET 150 MG PO (20:47)
[2024-09-07] MEDS: traZODone HCL 50 MG TABLET 150 MG PO (20:48)
[2024-09-07] MEDS: Atorvastatin Calcium 10 MG TABLET PO (20:48)
[2024-09-08] VITALS (8 sets, daily range): BP systolic 96–136; BP diastolic 51–76; PULSE 68–122; RESP 16–18; TEMP 36.1–36.3; O2SAT 92–96
[2024-09-08] MEDS: Omeprazole 20 MG CAPSULE.DR PO (06:04)
[2024-09-08 06:56] LABS: Hematocrit 26.5 % (42.0-52.0); Hemoglobin 7.4 g/dl (14.0-18.0)
[2024-09-08 07:03] LABS: Anion Gap 9 (12-20); Blood Urea Nitrogen 7 mg/dL (9-16); Calcium 7.5 mg/dL (8.4-10.2); Carbon Dioxide 29 mmol/L (22-29); Chloride 106 mmol/L (96-108); Creatinine Clr Calc Pharmacy 110.9; Estimated Glomerular Filt Rate > 60; Glucose Random 199 mg/dL (60-115); Potassium 3.8 mmol/L (3.3-5.1); Sodium 140 mmol/L (135-145)
[2024-09-08 07:28] LABS: Glucose, Whole Blood 241 mg/dL (60-115)
[2024-09-08] MEDS: busPIRone HCl 10 MG TABLET PO (07:43)
[2024-09-08] MEDS: Ferrous Sulfate 300 MG/5 ML LIQUID PO (07:43)
[2024-09-08] MEDS: Ascorbic Acid 500 MG TABLET PO (07:43)
[2024-09-08] MEDS: 0.9 % Sodium Chloride Flush 3 ML SYRINGE IVFLUSH (07:43)
[2024-09-08] MEDS: Insulin Lispro 100 UNIT/ML 3 ML VIAL SUBCUT ×2 (07:43→11:45)
[2024-09-08] MEDS: Cholecalciferol (Vitamin D3) 25 MCG TABLET PO (07:43)
[2024-09-08] MEDS: Insulin Glargine,Hum.rec.anlog 100 UNIT/ML 10 ML VIAL 40 UNIT SUBCUT (07:44)
[2024-09-08] MEDS: Insulin Lispro 100 UNIT/ML 3 ML VIAL 6 UNIT SUBCUT ×2 (07:44→11:45)
[2024-09-08 11:27] LABS: Glucose, Whole Blood 239 mg/dL (60-115)
[2024-09-08] MEDS: Insulin Glargine,Hum.rec.anlog 100 UNIT/ML 10 ML VIAL SUBCUT (11:44)
--- NOTE | 2024-09-08 13:04 | W.MHC.F2F ---
Service Date Service Date: 09/08/24 Encounter Date of encounter: 09/08/24 Reasons for Services Signs and symptoms assessed: hyperglycemia Reason for retirement: diabetic teaching, medication management, medication treatment and teach disease management MD Overseeing Care: Daniella Colon Homebound: Leaving the home is medically contraindicated at this time without the asist of a device and/or another person due th the listed conditions above and below. Reason homebound: weakness related to hospital stay Certification: Based on the above findings, I certify that this patient is confined to the home and needs intermittent retirement care, physical therapy and/or speech therapy, or continues to need occupational therapy. The patient is under my care, and I have initiated the establishment of the plan of care. The patient will be followed by a physician who will periodically review the plan of care. Time Spent With Patient Time: Total time managing care of this patient today ____ minutes.
--- NOTE | 2024-09-08 13:19 | P.DS_ITS ---
DS: Providers Provider Date of Service: 09/08/24 Date of admission: 09/04/24 03:36 Date of discharge: 09/08/24 Primary care physician: Daniella Colon MD Consults: 09/06/24 09:04 Consult to Gastroenterology Routine Consulting [place] [facility] [place] [facility] Reason for consultation: Anemia , iron deficiency Has provider been notified: No DS: Diagnosis Discharge Diagnosis (1) Acute anemia: Status: Acute (2) JENNIFER (acute kidney injury): Status: Acute (3) Anemia, chronic disease: Status: Acute (4) Iron deficiency anemia: Status: Acute (5) GERD (gastroesophageal reflux disease): Status: Acute (6) Gastritis: Status: Acute (7) Type 2 diabetes mellitus with hyperglycemia: Status: Acute (8) Orthostatic hypotension: Status: Acute DS: Summary Hospital Course Hospital Course: From the history and physical by the admitting hospitalist, Micah Parekh MD, 09/04/24: This is a 59-year-old male with 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 Patient states his symptoms started 4 days prior to presentation. He has been having increased thirst and increased urination. On the day of presentation, patient got dizzy and lightheaded when he stood up from a seated position. Did not pass out. Denies vomiting, diarrhea, hematuria, melena or hematemesis. No abdominal pain. No fever, chills, chest pain, palpitations, shortness of breath. No dysuria. In the emergency department, serum glucose found to be elevated. Also found to have JENNIFER with creatinine 1.7. He was also noted to have orthostatic hypotension. He was admitted to the hospitalist service on the medical-surgical unit. Hospital course by problem: DM2 with hyperglycemia: A1c up to 12.9. Started on Lantus, titrated to 45 units daily and discharged on this; will need close outpatient follow-up. VNA services arranged. Orthostatic hypotension: Resolved with IV fluids resuscitation. Anemia, GERD, gastritis: FOBT negative; no evidence of acute blood loss. Has a mix of iron deficiency and chronic disease. Gastroenterology consulted and EGD was done 09/07/24, showing a single 1 cm superficial healing erosion at the GE junction as well as antral gastritis. Biopsies were taken to rule out H. pylori infectio. He was started on omeprazole and iron. CBC should be rechecked in 2 weeks and he should follow up [place] [facility] [place] 1 [place]. JENNIFER: Prerenal; resolved with fluid resuscitation and with discontinuing HCTZ. Time Attestation Discharge Coordination Time (in mins): 45 Quality: Safe Use of Opioids Does Pt have an Active Cancer Diagnosis on the Problem List?: No Quality: Stroke Does the patient have a stroke diagnosis?: No Physical Exam Vital Signs: Vital Signs: Last Vital Signs Temp 97.1 F 09/08/24 11:47 Pulse 86 09/08/24 11:47 Resp 18 09/08/24 11:47 BP 111/62 09/08/24 11:47 Pulse Ox 96 09/08/24 11:47 O2 Del Method Room Air 09/08/24 11:47 O2 Flow Rate 3 09/08/24 03:47 BMI result Body Mass Index 37.9 Gen: in no acute distress HEENT: sclera anicteric, moist mucus membranes Neck: supple Lungs: clear to auscultation bilaterally Heart: regular rate and rhythm, no murmurs Abd: soft, non-tender, non-distended Ext: no edema Skin: warm/well-perfused Neuro: alert and oriented x3, no focal findings Psych: appropriate affect DS: Data Data Completed and Pending Completed studies during hospitalization [Text1]: Laboratory Results WBC 5.9 X10*3/uL (4.8-10.8) 09/04/24 05:27 RBC 3.69 X10*6/uL (4.60-5.80) L 09/04/24 05:27 Hgb 7.4 g/dl (14.0-18.0) L 09/08/24 06:15 Hct 26.5 % (42.0-52.0) L 09/08/24 06:15 MCV 73.2 fL (80.0-98.0) L 09/04/24 05:27 MCH 20.9 pg (27.0-33.0) L 09/04/24 05:27 MCHC 28.5 g/dl (31.0-36.0) L 09/04/24 05:27 RDW 16.9 % (11.0-16.0) H 09/04/24 05:27 Plt Count 128 X10*3/uL (160-400) L 09/04/24 05:27 MPV TNP 09/04/24 05:27 Immature Gran % (Auto) 0.7 % (0.0-0.4) H 09/04/24 05:27 Neut % (Auto) 67.3 % (45-73) 09/04/24 05:27 Lymph % (Auto) 21.9 % (20-40) 09/04/24 05:27 [place] % (Auto) 9.0 % (2-11) 09/04/24 05:27 Eos % (Auto) 0.8 % (0-4) 09/04/24 05:27 Baso % (Auto) 0.3 % (0-2) 09/04/24 05:27 Lymph # (Auto) 1.3 X10*3/uL (1.2-4.9) 09/04/24 05:27 [place] # (Auto) 0.5 X10*3/uL (0.1-1.2) 09/04/24 05:27 Eos # (Auto) 0.1 X10*3/uL (0.0-0.4) 09/04/24 05:27 Baso # (Auto) 0.0 X10*3/uL (0.0-0.2) 09/04/24 05:27 Abs Immat Gran (auto) 0.04 X10*3/uL (0.00-0.03) H 09/04/24 05:27 Absolute Neuts (auto) 4.0 x10*3/uL (2.0-8.3) 09/04/24 05:27 Absolute Nucleated RBC 0.020 X10*3/uL (0.0-0.012) H 09/04/24 05:27 Nucleated RBC % (auto) 0.3 /100WBC (0.0-0.2) H 09/04/24 05:27 VBG pH 7.38 (7.32-7.43) 09/04/24 00:58 VBG pCO2 63 mmHg 09/04/24 00:58 VBG pO2 23 mmHg 09/04/24 00:58 VBG HCO3 38 mmol/L (22-26) H 09/04/24 00:58 VBG O2 Saturation Not Reportable 09/04/24 00:58 VBG Base Excess 11.2 mmol/L 09/04/24 00:58 Sodium 140 mmol/L (135-145) 09/08/24 06:15 Potassium 3.8 mmol/L (3.3-5.1) 09/08/24 06:15 Chloride 106 mmol/L (96-108) 09/08/24 06:15 Carbon Dioxide 29 mmol/L (22-29) 09/08/24 06:15 Anion Gap 9 (12-20) L 09/08/24 06:15 BUN 7 mg/dL (9-16) L 09/08/24 06:15 Creatinine 0.93 mg/dL (0.5-1.4) 09/08/24 06:15 Estim Creat Clear Calc 110.9 09/08/24 06:15 Estimated GFR > 60 09/08/24 06:15 POC Glucose 239 mg/dL (60-115) H 09/08/24 11:16 Random Glucose 199 mg/dL (60-115) H 09/08/24 06:15 Estimat Average Glucose 324 mg/dL 09/04/24 00:53 Hemoglobin A1c % 12.9 % (<6.0) H 09/04/24 00:53 Calcium 7.5 mg/dL (8.4-10.2) L D 09/08/24 06:15 Iron 9 mcg/dL (45-160) L 09/04/24 12:35 TIBC 294 mcg/dL (228-428) 09/04/24 12:35 % Saturation 3 % (15-50) L 09/04/24 12:35 Unsat Iron Binding 285 ug/dL 09/04/24 12:35 Ferritin 9 ng/mL (20-250) L 09/07/24 05:43 Total Bilirubin 0.3 mg/dL (0.0-1.0) 09/04/24 00:53 AST 24 U/L (5-37) 09/04/24 00:53 ALT 20 U/L (0-40) 09/04/24 00:53 Alkaline Phosphatase 162 U/L (39-117) H 09/04/24 00:53 Total Protein 7.7 g/dL (6.5-8.0) 09/04/24 00:53 Albumin 4.1 g/dL (3.5-5.0) 09/04/24 00:53 Beta-Hydroxybutyrate 0.10 mmol/L (0.02-0.27) 09/04/24 00:53 Urine Color Yellow 09/04/24 02:24 Urine Appearance Clear 09/04/24 02:24 Urine pH 5.5 (5.0-9.0) 09/04/24 02:24 Ur Specific Rake >= 1.030 (1.005-1.025) H 09/04/24 02:24 Urine Protein Negative mg/dL (Neg-Trace) 09/04/24 02:24 Urine Glucose (UA) >=1000 mg/dL (Negative) H 09/04/24 02:24 Urine Ketones Negative mg/dL (Negative) 09/04/24 02:24 Urine Blood Negative (Negative) 09/04/24 02:24 Urine Nitrite Negative (Negative) 09/04/24 02:24 Ur Leukocyte Esterase Negative (Negative) 09/04/24 02:24 Urine RBC 0-2 /HPF (0-2) 09/04/24 02:24 Urine WBC 0-5 /HPF (0-5) 09/04/24 02:24 Ur Squamous Epith Cells 0-2 /HPF (0-2) 09/04/24 02:24 Urine Bacteria None Seen (None Seen) 09/04/24 02:24 Hyaline Casts 0-2 /LPF (0-2) 09/04/24 02:24 Stool Occult Blood NEGATIVE (NEGATIVE) 09/04/24 02:08 Blood Type O Positive 09/04/24 02:24 Antibody Screen NEGATIVE 09/04/24 02:24 Pending studies at discharge: Pending at discharge 09/07/24 14:34 Surgical [PTH] Routine Discharge Plan Discharge Anticipated Discharge Date/Time: 09/08/24 13:05 Patient Disposition: Home Health Service Discharge Diagnosis: anemia [chronic disease and iron deficiency] GERD, gastritis uncontrolled type 2 diabetes acute kidney injury Referrals: Daniella Colon MD [Primary Care Provider] - 1 Week Jil Robles MD [Physician] - 1 Month Discharge Medications: New ferrous sulfate 300 mg (60 mg iron)/5 mL Liquid 300 mg PO BIDWM Qty: 300 0RF (DME) FreeStyle Lite Strips Strip Qty: 100 0RF Rx Instructions: Test four times a day or as directed. (DME) blood-glucose meter [FreeStyle Lite Meter] Kit Qty: 1 0RF Rx Instructions: As Directed alcohol swabs Pads, Medicated 1 pad TOPICAL QIDACHS Qty: 100 0RF Rx Instructions: Use four times a day or as directed. insulin glargine [Lantus Solostar U-100 Insulin] 100 unit/mL (3 mL) insulin pen 45 unit SUBCUT DAILY Qty: 15 11RF (DME) pen needle, diabetic 32 gauge x 1/4 needle Qty: 100 0RF Rx Instructions: Use four times a day or as directed. (DME) lancets [FreeStyle Lancets] 28 gauge misc Qty: 100 0RF Rx Instructions: Test four times a day or as directed. omeprazole 20 mg Capsule,Delayed Release(Dr/Ec) 20 mg PO DAILY@0630 Qty: 30 0RF Continued sertraline 100 mg tablet 150 mg PO BEDTIME Bydureon BCise 2 mg/0.85 mL Auto-Injector 2 mg SUBCUT FR cholecalciferol (vitamin D3) 25 mcg (1,000 unit) capsule 25 mcg PO DAILY atorvastatin 10 mg tablet 10 mg PO BEDTIME carvedilol 12.5 mg tablet 12.5 mg PO BID trazodone 150 mg tablet 150 mg PO BEDTIME clotrimazole 1 % cream 1 appl topical BID PRN (Reason: Rash) fluticasone propionate 50 mcg/actuation spray,suspension 1 - 2 spray intranasal DAILY PRN (Reason: cold and allergies) buspirone 10 mg tablet 10 mg PO DAILY Discontinued hydrochlorothiazide 25 mg tablet 25 mg PO DAILY Discharge Orders: Discharge Order (Routine); Ordered 09/08/24 Ordered By: Nya Glasgow Diet: Diabetic diet Activity on Discharge: As tolerated Stand Alone Forms: Patient Portal Discharge page Print Language: Azeri Other Ambulatory Orders: Basic Metabolic Panel (Routine) Timeframe: 2 Weeks Facility: [facility] - Location: Laboratory Ordered By: Nya Glasgow Complete Blood Count no Diff (Routine) Timeframe: 2 Weeks Facility: [facility] - Location: Laboratory Ordered By: Nya Glasgow Care Plan Goals: prevention of diabetic complications Health Concerns: anemia [chronic disease and iron deficiency] - take iron as prescribed; eat iron-rich foods; recheck CBC in 2 weeks GERD, gastritis - take omeprazole 20 mg daily - [place] [facility] [place] [place] 1 month uncontrolled type 2 diabetes - continue Bydureon; add Lantus 45 units every morning - check blood glucose every morning before breakfast [goal 80-140] and 2 hours after largest meal of day [goal 80-200] acute kidney injury - stop hydrochlorothiazide; recheck BMP in 2 weeks Plan of Treatment: as above Assessment: See Discharge Summary.
--- NOTE | 2024-09-08 19:06 | HO.POSTANES ---
Post Anesthesia Evaluation Post Anesthesia Evaluation Date of Service: 09/08/24 Vital Signs: Vital Signs Temp Pulse Resp BP Pulse Ox O2 Del Method 09/08/24 11:47 97.1 F 86 18 111/62 96 Room Air 09/08/24 10:53 86 09/08/24 08:33 122 H 96/51 L 09/08/24 08:22 122 H 96/51 L 09/08/24 08:21 107 H 112/56 L 09/08/24 08:00 103 H 113/58 L 09/08/24 07:28 97.3 F 112 H 18 116/58 L 92 Room Air Anesthesia: Monitored Mental Status: Awake Pain Control: Satisfactory Nausea/Vomiting: None Hydration: Adequate Anesthesia-Related Issues: No Anes. Related Issues
[2024-09-13 19:53] LABS: Alk.Phos Iso. Macrohepatic 0 % (<=0); Alk.Phos Isoenzymes Bone 30 % (28-66); Alk.Phos Isoenzymes Intest 13 % (1-24); Alk.Phos Isoenzymes Liver 57 % (25-69); Alk.Phos Isoenzymes Placental 0 % (<=0); Alk.Phos Isoenzymes Total 70 U/L (35-144)
== END 2024-09-08 15:00 | disposition home health service (06) | DRG 638 ==
LOC: HO.ED 02:17 → HO.EDOVER 03:44 → HO.S3 15:44
PROVIDERS: Family Medicine; Internal Medicine; Internal Medicine Gastroenterology; Admitting Provider Student in an Organized Health Care Education/Training Program; Emergency Provider Emergency Medicine; PCP Internal Medicine; Visit Provider Family Medicine
PROC: 0DJ08ZZ Inspection of Upper Intestinal Tract, Via Natural or Artificial Opening Endoscopic (ICD-10-PCS; CPT 43235; principal; 2024-09-07 14:20)
DX: E11.65 Type 2 diabetes mellitus with hyperglycemia (principal); N17.9 Acute kidney failure, unspecified; D50.9 Iron deficiency anemia, unspecified; E78.2 Mixed hyperlipidemia; K28.9 Gastrojejunal ulcer, unspecified as acute or chronic, without hemorrhage or perforation; K29.70 Gastritis, unspecified, without bleeding; I10 Essential (primary) hypertension; K21.9 Gastro-esophageal reflux disease without esophagitis; G47.33 Obstructive sleep apnea (adult) (pediatric); I95.1 Orthostatic hypotension; Z79.4 Long term (current) use of insulin; Z85.038 Personal history of other malignant neoplasm of large intestine; Z79.899 Other long term (current) drug therapy
CPT/HCPCS: 43239; 36415; 71045; 80048; 80053; 81001; 82010; 82272; 82728; 82803; 82947; 83036; 83540; 84080; 85014; 85018; 85025; 86850; 86900; 86901; 88305; 88342; 93005; 94660; 99221; 99285; J2003; J2704; J7120

== ENCOUNTER → 2024-09-04 00:55 | Outpatient (BNV) | payer MEDICARE, SELFPAY | PROVIDERS: Admitting Provider Student in an Organized Health Care Education/Training Program; Emergency Provider Emergency Medicine; Visit Provider Internal Medicine Cardiovascular Disease | DX: R42 Dizziness and giddiness (principal) | CPT/HCPCS: 93010 ==

== ENCOUNTER 2024-09-04 03:36 | Outpatient (BNV) | payer MEDICARE, SELFPAY | END 2024-09-07 18:20 | PROVIDERS: Admitting Provider Student in an Organized Health Care Education/Training Program; Emergency Provider Emergency Medicine; PCP Internal Medicine; Visit Provider Specialist | DX: R09.02 Hypoxemia (principal) | CPT/HCPCS: 71045 ==

== ENCOUNTER → 2024-09-04 03:36 | Outpatient (BNV) | payer MEDICARE, SELFPAY | PROVIDERS: Admitting Provider Student in an Organized Health Care Education/Training Program; Emergency Provider Emergency Medicine; Visit Provider Student in an Organized Health Care Education/Training Program | DX: D64.9 Anemia, unspecified (principal); N17.9 Acute kidney failure, unspecified | CPT/HCPCS: 99231; 99239; G0180 ==

== ENCOUNTER 2024-09-19 09:01 | Outpatient (REF) | payer MEDICARE, SELFPAY ==
--- OUTSIDE RECORDS SUMMARY | 2024-09-19 09:26 | XMS_ITS | Clinical Summary ---
Author Organization [facility] [address] ity Address [address] [place] [address] Care Team Providers Care Office Spec Name Role Phone Unavailable Primary Care Provider Unavailabl e Social History Tobacco Use Types Packs/Day Years Used Date Smoking Tobacco: Never Assessed Sex and Gender Information Value Date Recorded Sex Assigned at Not on file Gender Identity Not on file Sexual Orientation Not on file Plan of Treatment Health Maintenance Due Date Last Done Comments DTaP,Tdap,and Td Vaccines (1 - Tdap) 1984 Hepatitis B Vaccines (1 of 3 - 19+ 3-dose series) 1984 Zoster Vaccines (1 of 2) 2015 COVID-19 Vaccine ( - 2023-2 5 season) 2024 Influenza Vaccine (#1) 2024 RSV Immunization Patients 60 + Years Old (1 - 1-dose 75+ series) 2040 HIB Vaccines Aged Out No longer eligi ble based on patient's age to complete this topic HPV Vaccines Aged Out No longer eligi ble based on patient's age to complete this topic Hepatitis A Vaccines Aged Out No long er eligible based on patient's age to complete this topic IPV Vaccines Aged Out No longer eligi ble based on patient's age to complete this topic MMR Vaccines Aged Out No longer eligi ble based on patient's age to complete this topic Meningococcal ACWY Vaccine Aged Out N o longer eligible based on patient's age to complete this topic Pneumococcal Vaccine: Pediat rics (0 to 5 Years) and At-Risk Patients (6 to 64 Years) Aged Out No longer eligible b ased on patient's age to complete this topic RSV Immunization Patients Un gustavo 20 months Aged Out No longer eligible b ased on patient's age to complete this topic Varicella Vaccines Aged Out No longer eligible based on patient's age to complete this topic
--- OUTSIDE RECORDS SUMMARY | 2024-09-19 09:26 | XMS_ITS | Clinical Summary ---
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 Name Role Phone Daniella Colon MD Primary Care Provider [phone] Social History Tobacco Use Types Packs/Day Years Used Date Smoking Tobacco: Never Assessed Sex and Gender Information Value Date Recorded Sex Assigned at Not on file Legal Sex Male 8:34 AM EDT Gender Identity Not on file Sexual Orientation Not on file Plan of Treatment Health Maintenance Due Date Last Done Comments Hepatitis B Vaccine (1 of 3 - 19+ 3-dose series) 1984 Colorectal Cancer Screening: Annual FOBT 2014 Colorectal Cancer Screening: Colonoscopy 2014 Colorectal Cancer Screening: Sigmoidoscopy 2014 Influenza Vaccine (#1) 2024 05/07/2009 Pneumococcal Vaccine: Pediat rics (0 to 5 Years) and At-Risk Patients (6 to 64 Years) Aged Out 07/04/2015 No longer eligi ble based on patient's age to complete this topic Insurance MEDICAID ID MEDICAID ID Care Teams Handstitching Machine Collar Feller Relationship Specialty Start Date End Date Daniella Colon MD [address] [place] [address] [address] [place] [address] PCP - General Internal Medicine 06/07/22
[2024-09-19 10:20] LABS: Hematocrit 28.3 % (42.0-52.0); Hemoglobin 7.7 g/dl (14.0-18.0); Mean Corpuscular HGB Conc 27.2 g/dl (31.0-36.0); Mean Corpuscular Hemoglobin 21.1 pg (27.0-33.0); Mean Corpuscular Volume 77.5 fL (80.0-98.0); Mean Platelet Volume 10.3 fL (9.4-12.4); Platelet Count 176 X10*3/uL (160-400); Red Blood Count 3.65 X10*6/uL (4.60-5.80); Red Cell Distribution Width 21.7 % (11.0-16.0); White Blood Count 4.4 X10*3/uL (4.8-10.8)
[2024-09-19 10:58] LABS: Ferritin 26 ng/mL (20-250)
== END 2024-09-19 09:02 | disposition home or self-care (01) ==
LOC: HO.LAB 09:01
PROVIDERS: PCP Internal Medicine; Visit Provider Internal Medicine
DX: D50.9 Iron deficiency anemia, unspecified (principal)
CPT/HCPCS: 36415; 82728; 85027

== ENCOUNTER 2024-09-19 12:49 | Outpatient (AMB) | payer MEDICARE, SELFPAY ==
--- NOTE | 2024-09-19 12:50 | A.OFFVIS_ITS ---
Intake Visit Reasons: Telehealth , lab results Intake Note: Patient telehealth follow up for lab results. Patient denies any GI issues for today. 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 Patient was seen earlier this month 04/16: Briefly, patient was seen in the emergency room last month for abdominal pain ongoing for 2 days primarily in the right lower quadrant associated with nausea and vomiting. CT abdomen and pelvis without contrast showed enlarged and dilated appendix with surrounding fatty stranding. However, the appearance was atypical, and based on imaging, mucocele was suspected. Patient was seen by General surgery, Dr. Alfonso. Underwent laparoscopic appendectomy on 03/28. Intraoperatively, he was found to have perforated necrotic appendicitis with free fluid in the abdomen along with a right pericolic abscess. This necessitated MARY drain placement as well. That has since been removed. Path report was positive for appendiceal adenocarcinoma, see details below and results section. Patient tells me that he had a colonoscopy in 2009 and [facility] that was done around the time he had a gluteal abscess. He is unsure of the details of the colonoscopy, in fact did not recall this colonoscopy, until he was reminded by his primary care provider at a recent visit. In terms of his symptoms, he denies any abdominal pain, nausea, vomiting, changes in appetite, unintentional weight loss. He does endorse frequent bowel movements, especially after meals. Denies any blood in stool. Labs from the admission were personally reviewed and were notable for mild anemia. In addition, he was also noted to have low platelet count. Patient does not smoke. Drinks occasionally. There is no family history of colon cancer or colon polyps that he knows of. No family history. It of colitis or Crohn's disease. 05/12/22: In the interim has undergone a complete colonoscopy that showed a large polyp overlying the appendiceal orifice. Biopsies show LGD adenoma. The large polyp was not removed as I did not want to risk perforation stacey since the patient is planned for a R hemicolectomy regardless. In addition, he also had an area of irregular nodular mucosa in ascending colon - bx show hyperplastic changes. Miniscule TA in cecum. No synchronous lesions were seen on this exam. Patient reports no abdominal pain, nausea, vomiting, changes in appetite. Bowel movements are regular. He has been seen by Dr Duran and has been scheduled for surgery next month. 06/01/22: Underwent R hemicolectomy with ileocolonic anastomosis (Dr Duran). Adenoca invading the serosa with 4/14 + nodes. Had recurrent admissions after this for intra-abdominal infections. 08/02/23: [facility] (Dr Sanchez): No polyps. Internal hemorrhoids. Mild erythema at anastomosis. 09/20/23: He is here for follow-up after his colonoscopy. Has also been seen by Dr. Murguia and completed his adjuvant chemotherapy in March 2023. CT chest/abd/pel from May without any disease recurrence. Has a rpeat follow up with her next month. Results of colo reviewed and reassuring. 04/09/24: Here for rectal bleeding that started a few months ago. Reports one episode in [facility] around February while he was on a cruise. Reports lasted for almost a week with rectal bleeding noted with each BM despite having a normal/soft BM. This was not assoc with any abd pain, N,V. Does report occ diarrhea. Has hx of appendiceal adenoca s/p hemicolectomy. Saw his oncologist and reported above who got blood work - normal, and referred him to us for further evaluation. 06/14/24 1. Normal colon, ileocolonic anastomosis, and ileal mucosa 2. Internal and external hemorrhoids Recommendations: - Follow path results. - Intermittent rectal bleeding was likely from hemorrhoids, which has since resolved. - Repeat colonoscopy in 3 years for adenoca surveillance. Path: A. Labeled biopsy at anastomosis : Ileal and colonic mucosa with minor crypt distortion, otherwise no specific change; no evidence of malignancy. B. Colon, left, biopsy: Colonic mucosa with lymphoid aggregate and minor crypt distortion, otherwise no specific change; no evidence of malignancy. 06/29/24: Pt reassured of th results. No ongoing GI concerns at this time. Has not any recurrence of bleeding. Starting to exercise and lift weights. Cautioned re safe lifting and avoiding pr olonged increased intra-abd pressure so he doesnt aggravate hemorrhoids. Also has ventral hernia. 09/19/24: Booked as urgent televisit. Was seen in hospital by Dr Ventura for acute anemia. EGD 09/07/24 with mild esophagitis and gastritis. Bx neg for H Pylori and celiac. Outpatient repeat H/H unchanged from 2 weeks ago despite PO iron supplementation indicating ongoing GI losses. CEA checked by Onc is also higher than expected. Pt himself withotu any abd pain, N,V, D. No red blood or melena reported. [facility] Medical History History of colon cancer Infected cyst of skin Cellulitis of abdominal wall Eye inflammation Sleep apnea Ambulates with cane Back pain due to injury Morbid obesity Umbilical hernia Obesity (BMI 30-39.9) Dyslipidemia Diabetic nephropathy associated with type 2 diabetes mellitus Epidermal cyst HTN (hypertension) Diabetes type 2, controlled Surgical History S/P right colectomy History of colon resection H/O colonoscopy S/P appendectomy History of umbilical hernia repair (~01/08/22) Hx of removal of cyst Family History Father Diabetes Heart disease Mother Diabetes Heart disease Other No family history of cancer Social History Household Members: Spouse Housing: House Are you a primary adult day care worker to a significant other at home: No Do you presently have visiting nurse or other home services: No Alcohol intake: never Comment: Ofirmev infusing at time of xfer Patient Tobacco Use Status: Never used Tobacco service: No Current occupational status: disabled Review of Systems Const All systems reviewed & are unremarkable except as noted in HPI and below Physical Exam Vital Signs: phone visit Telehealth Telehealth Telehealth Platform: Telephone Location of provider rendering services: practice address Location of patient: address on file Patient Identification confirmed using: Name, : Yes Telehealth method: voice only Patient verbally consented to treatment: Yes Patient verbally consented to billing insurance company: Yes Patient informed of any privacy concerns related to visit: Yes Minutes spent on Phone/Video with Pt.: 11 Assessment & Plan Assessment & Plan (1) Iron deficiency anemia: Code(s): D50.9 - Iron deficiency anemia, unspecified Category: Medical (2) Primary appendiceal adenocarcinoma: Code(s): C18.1 - Malignant neoplasm of appendix Category: Medical Plan Discussed with the pt that would recommend urgent colo for evaluation given hx of appendiceal adenoca and new onset severe anemia with relatively normal upper endoscopy. This was also reviewed with his Oncologist. Plan: - [facility] to be booked within 2-4 weeks - PEG prep Rxed - CBC and type and screen to be done 2 days prior to procedure and transfuse PRBC as needed - Repeat staging scans vs PET as per Oncologist Follow up after colo. Orders: Orders Complete Blood Count no Diff Today D50.9 - Iron deficiency anemia, unspecified Type and Screen Today D50.9 - Iron deficiency anemia, unspecified Medications: New peg 3350-electrolytes 236-22.74-6.74 -5.86 gram (Golytely) as per split prep instructions, until fecal effluent is clear 240 mL PO Q10M 4,000 mL 0RF colonoscopy Coding Level of Care Code Tele Est Pt Level 4 (58031) Complex EM visit Add On G2211 Diagnoses Iron deficiency anemia D50.9 Primary appendiceal adenocarcinoma C18.1
--- OUTSIDE RECORDS SUMMARY | 2024-09-19 14:10 | XMS_ITS | Clinical Summary ---
Author Organization [facility] Facility Address [address] [place] [id number] Care Team Providers Care Core Loader Name Role Phone Daniella Colon MD Primary Care Provider [phone] Social History Tobacco Use Types Packs/Day Years [...] age to complete this topic [place] Care Teams Core Loader Relationship Specialty Start Date End Date Daniella Colon MD [address] [place] [address] [address] [place] [address] PCP - General Internal Medicine 06/07/22
--- OUTSIDE RECORDS SUMMARY | 2024-09-19 14:10 | XMS_ITS | Clinical Summary ---
Author Organization [facility] ity Address [address] [place] [address] Care Team Providers Care Staff Nurse Anesthetist Name Role Phone Unavailable Primary Care Provider [...]
== END 2024-09-19 14:49 | disposition home or self-care (01) ==
PROVIDERS: PCP Internal Medicine; Visit Provider Internal Medicine
DX: D50.9 Iron deficiency anemia, unspecified (principal); C18.1 Malignant neoplasm of appendix
CPT/HCPCS: 98016

== ENCOUNTER 2024-10-05 12:51 | Outpatient (REF) | payer MEDICARE, SELFPAY ==
[2024-10-05 13:11] LABS: MANUAL DIFF FLAG NO
[2024-10-05 13:14] LABS: Basophils Percent Auto 0.2 % (0-2); Eosinophils Absolute Auto 0.1 X10*3/uL (0.0-0.4); Eosinophils Percent Auto 1.4 % (0-4); Hemoglobin 9.9 g/dl (14.0-18.0); Imm Gran Abs Auto 0.01 X10*3/uL (0.00-0.03); Imm Gran Pct Auto 0.2 % (0.0-0.4); Lymphocytes Absolute Auto 1.1 X10*3/uL (1.2-4.9); Lymphocytes Percent Auto 22.7 % (20-40); Mean Corpuscular HGB Conc 29.1 g/dl (31.0-36.0); Mean Corpuscular Hemoglobin 23.9 pg (27.0-33.0); Mean Corpuscular Volume 81.9 fL (80.0-98.0); Mean Platelet Volume 9.9 fL (9.4-12.4); Monocytes Absolute Auto 0.4 X10*3/uL (0.1-1.2); Monocytes Percent Auto 7.2 % (2-11); Neutrophils Absolute Auto 3.3 x10*3/uL (2.0-8.3); Neutrophils Percent Auto 68.3 % (45-73); Platelet Count 157 X10*3/uL (160-400); Red Blood Count 4.15 X10*6/uL (4.60-5.80); Red Cell Distribution Width 22.9 % (11.0-16.0); White Blood Count 4.8 X10*3/uL (4.8-10.8)
--- OUTSIDE RECORDS SUMMARY | 2024-10-05 13:22 | XMS_ITS | Clinical Summary ---
Author Organization [facility] Facility Address [address] [place] [id number] Care Team Providers Care Instrument Mechanics Supervisor Name Role Phone Daniella Colon MD Primary Care Provider Social History Tobacco Use Types Packs/Day Years [...] age to complete this topic [place] Care Teams Instrument Mechanics Supervisor Relationship Specialty Start Date End Date Daniella Colon MD [address] [place] [address] [address] [place] [address] PCP - General Internal Medicine 06/07/22
--- OUTSIDE RECORDS SUMMARY | 2024-10-05 13:22 | XMS_ITS | Clinical Summary ---
Author Organization [facility] ity Address [address] [place] [address] Care Team Providers Care Sole Rougher Name Role Phone Unavailable Primary Care Provider Unavailabl e Social History Tobacco Use Types Packs/Day Years Used Date Smoking Tobacco: Never Assessed Sex and Gender Information Value Date Recorded Sex Assigned at Not on file Legal Sex Male 5:04 AM EST Gender Identity Not on file Sexual Orientation Not on file Plan of Treatment Health Maintenance Due Date Last Done Comments DTaP,Tdap,and Td Vaccines (1 - Tdap) 1984 Hepatitis B Vaccines (1 of 3 - 19+ 3-dose series) 1984 Pneumococcal Vaccine: 50+ Ye ars (1 of 1 - PCV) 2015 Zoster Vaccines (1 of 2) 2015 COVID-19 [...] patient's age to complete this topic Meningococcal B Vacine Aged Out No lo nger eligible based on patient's age to complete [...]
--- OUTSIDE RECORDS SUMMARY | 2024-10-05 13:22 | XMS_ITS ---
Author Name Elisabeth Murcia NP Address [address] [place] [address] Phone [phone] [facility] Care Team Providers Care Mattress Inspector Name Role Phone Elisabeth Murcia Unavailable [phone] [facility] Unavailable Unavailable Unavailable Unavailable OMID OLVERA Unavailable [phone] TYREE PEACOCK Unavailable [phone] DOMINIQUE CHINO Unavailable [phone] Shyann Bermudez Unavailable [phone] Unavailable Unavailable Unavailable Reason for Referral Not Available Allergies, adverse reactions, alerts Allergen Type Reaction Severity Status Onset Date Lisinopril Allergy to substance (disorder) rash Moderat e Active N/A History of medication use Medication Class Instructions Start Date End Date Trulicity 1.5 mg/0.5ML Solut ion Pen-injector INJECT 1 PEN INTO THE SKIN EVERY WEEK 2021-12-29 2024-05-17 Topiramate 50 mg Tab TAKE 1-2 TABLET BY MOUTH DAILY 2022-09-15 No Data Available Dexamethasone 4 mg Tab TAKE 1 TABLET BY MOUTH TWICE A DAY FOR 2 DAYS PRN 2022-07-29 2024-05-17 Ondansetron 8 mg Tab Disintegrating TAKE 1 TABLET BY MOUTH EVERY 8 HOURS NEEDED FOR NAUSEA 2022-07-29 No Data Available Betamethasone Dipropionate A ug 0.05 % Oint APPLY 1 APPLICATION TOPICALLY ON THE SKIN TWICE A DAY 2022-08-10 No Data Available Carvedilol 12.5 mg Tab TAKE 1 TABLET BY MOUTH EVERY 12 HOURS 2022-10-14 No Data Available hydroCHLOROthiazide 25 mg Tab TAKE 1 TAB LET BY MOUTH EVERY DAY 2022-03-04 No Data Available traZODone 150 mg Tab TAKE 1 TABLET BY MO UTH EVERYDAY AT BEDTIME 2022-10-21 No Data Available Atorvastatin Calcium 10 mg Tab TAKE 1 TA BLET BY MOUTH EVERYDAY AT BEDTIME 2022-02-16 No Data Available busPIRone 10 mg Tab TAKE 1 TABLET BY SHELBY TH EVERY DAY IN THE MORNING 2022-10-21 No Data Available Sertraline 100 mg Tab TAKE ONE AND ONE H MERCEDES (1.5) TABLETS BY MOUTH DAILY 2022-10-21 No Data Available Cephalexin 500 mg Cap TAKE 1 CAPSULE BY MOUTH THREE TIMES A DAY 2022-11-08 No Data Available Acetaminophen-Codeine #3 300 /30 mg Tab TAKE 1 TABLET BY MOUTH EVERY 6 HOURS NEEDED FOR PAIN 2022-12-02 No Data Available Fluticasone Propionate 50 MCG/ACT Suspension INSTILL 1-2 SPRAYS IN EACH NOSTRIL DAILY 2023-12-29 No Data Available VITAMIN D3 1,000 UNIT SOFTGEL TAKE 1 CAP MAURA BY MOUTH EVERY DAY 2024-02-29 No Data Available Zolpidem Tartrate 10 mg Tab TAKE 1 TABLE T BY MOUTH AT BEDTIME NOT TO BE TAKEN WITH TRAZODONE 2024-02-29 No Data Available GaviLyte-G 236 GM Solution PLEASE SEE AT TACHED FOR DETAILED DIRECTIONS 2024-04-09 2024-05-17 Bydureon BCise 2 mg/0.85ML Auto-injector INJECT 2 MG BELOW THE SKIN WEEKLY 2024-04-12 No Data Available Vitamin B Complex-C Cap 1 tablet by mout h once daily 2024-05-17 No Data Available Betamethasone Dipropionate 0 .05 % Crm 11 application topically to affected area 2 times per day as needed 2024-05-17 No Data Available Problem List Problem Status Onset Date Resolved Date Other problems related to [facility] facilities and other health care Active 2024-05-14 N/A HTN (hypertension) Active 2023-02-15 N/A Insomnia, KYM (obstructive sleep apnea) Active N/A Migraine Active 2023-02-15 N/A MDD (major depressive disorder), recurrent episode Act andre 2023-02-15 N/A Type 2 diabetes mellitus with hyperlipidemia Active 2023-02-15 N/A Malignant neoplasm of ascend ing colon,Malignant neoplasm of appendix, Drug-induced polyneuropathy,Port-a-cath in place Active 2023-02-15 N/A Morbid obesity,Body mass index [BMI] 38.0-38.9, adult Active 2023-02-15 N/A Encounters Encounters Type Facility Date of Service Diagnosis/Co mplaint New patient, 30-44min 1 stable chronic or 2 minor; add modifier 95 for video, modifier 93 for phone [facility] [place] Type 2 diabetes mellitus wit h other specified complicationHyperlipidemia, unspecifiedEssential (primary) hypertensionMalignant neoplasm of appendixMajor depressive disorder, recurrent, mildMigraine, unspecified, not intractable, without status migrainosusMorbid (severe) obesity due to excess caloriesBody mass index (BMI) 35.0-35.9, adult New patient, 30-44min 1 stable chronic or 2 minor; add modifier 95 for video, modifier 93 for phone [facility] [place] New patient, 30-44min 1 stable chronic or 2 minor; add modifier 95 for video, modifier 93 for phone [facility], [place] 02/15/2023 New patient, 30-44min 1 stable chronic or 2 minor; add modifier 95 for video, modifier 93 for phone [facility] [place] 02/15/2023 New patient, 30-44min 1 stable chronic or 2 minor; add modifier 95 for video, modifier 93 for phone [facility] [place] 02/15/2023 New patient, 30-44min 1 stable chronic or 2 minor; add modifier 95 for video, modifier 93 for phone [facility] ([place] 02/15/2023 New patient, 30-44min 1 stable chronic or 2 minor; add modifier 95 for video, modifier 93 for phone [facility] ([place]) 02/15/2023 Estab. patient 30-39min; chronic exacerbation, 2 stable chronic or 1 acute illness add add modifier 95 for video, (do not use for phone, instead use [id number]) [facility], [place] 05/17/2024 Type 2 diabetes mellitus wit h other specified complicationHyperlipidemia, unspecifiedEssential (primary) hypertensionDrug-induced polyneuropathyMalignant neoplasm of ascending colonMalignant neoplasm of appendixPresence of other vascular implants and graftsMajor depressive disorder, recurrent, unspecifiedMigraine, unspecified, not intractable, without status migrainosusInsomnia, unspecifiedMorbid (severe) obesity due to excess caloriesBody mass index (bmi) 38.0-38.9, adultOther problems related to medical facilities and other health care Estab. patient 30-39min; chronic exacerbation, 2 stable chronic or 1 acute illness add add modifier 95 for video, (do not use for phone, instead use [id number]) [facility], [place] 05/17/20[place] Estab. patient 30-39min; chronic exacerbation, 2 stable chronic or 1 acute illness add add modifier 95 for video, (do not use for phone, instead use 55782-20) [facility], ([place]) 05/17/2024 Estab. patient 30-39min; chronic exacerbation, 2 stable chronic or 1 acute illness add add modifier 95 for video, (do not use for phone, instead use 84524-54) [facility], ([place]) 05/17/2024 Estab. patient 30-39min; chronic exacerbation, 2 stable chronic or 1 acute illness add add modifier 95 for video, (do not use for phone, instead use 98155-08) [facility], ([place]) 05/17/20[place] Estab. patient 30-39min; chronic exacerbation, 2 stable chronic or 1 acute illness add add modifier 95 for video, (do not use for phone, instead use [id number]) [facility], ([place]) 05/17/20[place] Estab. patient 30-39min; chronic exacerbation, 2 stable chronic or 1 acute illness add add modifier 95 for video, (do not use for phone, instead use 20993-46) [facility], ([place]) 05/17/2024 Estab. patient 30-39min; chronic exacerbation, 2 stable chronic or 1 acute illness add add modifier 95 for video, (do not use for phone, instead use 84653-99) [facility], ([place]) 05/17/2024 Estab. patient 30-39min; chronic exacerbation, 2 stable chronic or 1 acute illness add add modifier 95 for video, (do not use for phone, instead use 72227-88) [facility], ([place]) 05/17/2024 Estab. patient 30-39min; chronic exacerbation, 2 stable chronic or 1 acute illness add add modifier 95 for video, (do not use for phone, instead use 65928-56) [facility] ([place]) 05/17/2024 Vital Signs Date of Collection Vitals 2023-02-15 07:06:35 Height - 177.8 cmWei ght - 113.4 kgBody Mass Index (BMI) - 35.87 kg/m2BP Diastolic - 70.0 mm[Hg]BP Systolic - 126.0 mm[Hg]Pain Scale - 0.0 {score} 2024-05-17 06:11:39 Weight - 121.56 kgBo dy Mass Index (BMI) - 38.45 kg/m2BP Diastolic - 88.0 mm[Hg]BP Systolic - 138.0 mm[Hg]Heart Rate - 74.0 /minPain Scale - 0.0 {score} Social History Social History Social History Observation Description Effec tive Time Current Smoking Status Never smoker 2024-09-16 1 Sex Male History of Procedures Procedures Service Procedure code Service date Servicing provider Phone# New patient, 30-44min 1 stable chronic or 2 minor; add modifier 95 for video, modifier 93 for phone [id number] 2023-02-15 No Data Available No Data Available BMI obtained (3008F) 3008F 2023-02-15 No Data Availab le No Data Available Advance care planning discussed and documented ? advance care plan or surrogate decision-maker was documented in the medical record. (1123F) 1123F 2023-02-15 No Data Available No Data Availa ble SBP < 130 (3074F) 3074F 2023-02-15 No Data Available No Data Available DBP <80 (3078F) 3078F 2023-02-15 No Data Available No Data Available Pain Assessment - NO pain present (1126F) 1126F 2023-02-15 No Data Available No Data A vailable Functional Status Assessed (1170F) 1170F 2023-02-15 No Data Available No Data Avail able Estab. patient 30-39min; chronic exacerbation, 2 stable chronic or 1 acute illness add add modifier 95 for video, (do not use for phone, instead use [id number]) 61713 2024-05-17 No Data Available No Data Availa ble Medication List Documented (1159F) 1159F 2024-05-17 No Data Available No Data Margie ilable Medication Review by prescribing provider or pharmacist documented (1160F) 1160F 2024-05-17 No Data Available No Data Mragie ilable Pain Assessment - NO pain present (1126F) 1126F 2024-05-17 No Data Available No Data A vailable BMI obtained (3008F) 3008F 2024-05-17 No Data Availab le No Data Available Advance Care Directive Advance care planning discussion documented in the medical record (1158F) 1158F 2024-05-17 No Data Available No Data Availa ble Advance care planning discussed and documented ? advance care plan or surrogate decision-maker was documented in the medical record. (1123F) 1123F 2024-05-17 No Data Available No Data Availa ble SBP 130-139 (3075F) 3075F 2024-05-17 No Data Availabl e No Data Available DBP 80-89 (3079F) 3079F 2024-05-17 No Data Available No Data Available Functional Status Assessed (1170F) 1170F 2024-05-17 No Data Available No Data Avail able Functional Status Functional Category Effective Dates ADL Eating: Independent; Amb ulation: Some Help Needed; Dressing: Independent; Bathing: Some Help Needed; Toileting: Some Help NeededIADL Shopping: Total Assist; Housekeeping: Total Assist; Meal Prep: Total Assist; Medications Management: Total AssistFalls in last 6 Months: No 2024-05-17 Mental Status Status Date Cognition Status: Oriented to Person, Pl tea and Time 2024-05-17 Assessments Date of Service Assessments 2023-02-15 07:06:35 Hyperlipidemiaon Sta tin, Trulicity, checks BG daily runs 110-140 in AM, denies ss of hypo/hyperglycemia, Last HgA1c? monitor by PCPHTN (hypertension)Coreg, HCTZ, BP stable, denies cardiac ss.Malignant neoplasm of appendixDx 06/2022, had surg, chemo every other week with Onc, states had PET scan last week, result pending. States overall doing well.Major depressive disorder, recurrent, mildSertraline, Buspirone, Trazadone, doing well, followed by Psych monthly, denies SI/HI.MigraineTopiramate prn helps per pt.Morbid obesityBMI 35.87 with DM and HTN, healthy lifestyle encouraged. 2024-05-17 06:11:39 Type 2 diabetes irene itus with hyperlipidemiaOther problems related to medical facilities and other health careHTN (hypertension)Malignant neoplasm of ascending colon,Malignant neoplasm of appendix, Drug-induced polyneuropathy,Port-a-cath in placeMDD (major depressive disorder), recurrent episodeMigraineInsomnia, KYM (obstructive sleep apnea)Morbid obesity,Body mass index [BMI] 38.0-38.9, adult Plan of Care Date of Service Plans 2023-02-15 07:06:35 BMI obtained (3008F) Televideo new patient, 30-44min 1 stable chronic or 2 minor; add modifier 95Advance care planning discussed and documented ? advance care plan or surrogate decision-maker was documented in the medical record. (1123F)SBP < 130 (3074F)DBP <80 (3078F)Pain Assessment - NO pain documented (1126F)Continue to see PCP. Follow-up with [facility] as needed for any acute or disease education needs that may arise 07/03. 2024-05-17 06:11:39 Televideo 30-39min; chronic exacerbation, 2 stable chronic or 1 acute illness add modifier 95Functional Status Assessed (1170F)Pain Assessment - NO pain documented (1126F)BMI obtained (3008F)Advance Care Directive Advance care planning discussion documented in the medical record (1158F)Advance care planning discussed and documented ? advance care plan or surrogate decision-maker was documented in the medical record. (1123F)SBP 130-139 (3075F)DBP 80-89 (3079F)Medication List Documented (1159F)Medication Review by prescribing provider or pharmacist documented (1160F)Continue to see PCP. Follow-up with [facility] as needed for any acute or disease education needs that may arise.DM: BydureonHLD: Atorvastatin Educated on the importance of daily FSBS checks. Advised to report symptoms of hyperglycemia to CB or PCP. Advised on diabetic diet including avoiding foods with high sugar content, high carbohydrates or starchy foods like rice, potatoes. Advised to eat smaller portions with healthy snacks.Continue to follow up with PCP.HYPERTENSION CONTINGENCY PLANMember to call for the following symptoms: BP >180/100??/ Chest pain??/ HeadachePlanned intervention: Assess for signs of end organ damage (headache, vision changes, chest pain)/ Card Brusher on proper BP monitoring technique and reassess/ Increase current medication dose:/ Add olmesartan 20mg daily/ Encourage low sodium diet/ Discuss breathing exercises/ Encourage medication adherenceRX: Carvedilol, HCTZEncourage low sodium diet. Encouraged daily blood pressure checks and tracking. Instructed patient to notify CB or PCP if blood pressure >140/90 or <90/50.Continue to follow up with PCP.Dx 06/2022, Had Colon Resection, chemo every other week with OncologyContinue to follow up with Oncology.RX: Sertraline, Buspirone, TrazadoneNotify provider with any changes in behavior, difficulty sleeping, or new/worsening depressive symptoms.Continue to follow up with Psychiatry.RX: Topiramate Continue to follow up with PCP.RX: ZolpidemPractice good sleep hygieneContinue to follow up with PCP.BMI 38.45 with DM and HTN, healthy lifestyle encouraged.At least 50% of time spent counseling patient, discussing diagnosis, treatment plan, compliance, and coordinating follow up care. Goals Date Goal 2024-05-17 Continue taking medi cations as directed and keep all follow up appointments with established PCP and Specialist. Health Concerns Date Concern 2024-05-17 Visit completed payton menendez audio/video. Patient/Guardian agreed to visit via telehealth. Today, patient has chief complaint of: follow up care and comprehensive review.Reviewed Allergies, Medications, Active Medical conditions, past medical/surgical history, Social history. 2024-05-17 Most recent hospital stay(s) or ER visit(s) and precipitating factors: Denies
[2024-10-05 13:30] LABS: Alanine Aminotransferase 22 U/L (0-40); Albumin Level 3.7 g/dL (3.5-5.0); Alkaline Phosphatase 72 U/L (39-117); Anion Gap 9 (12-20); Aspartate Amino Transferase 32 U/L (5-37); Bilirubin Total 0.3 mg/dL (0.0-1.0); Blood Urea Nitrogen 10 mg/dL (9-16); Calcium 8.9 mg/dL (8.4-10.2); Carbon Dioxide 30 mmol/L (22-29); Chloride 107 mmol/L (96-108); Estimated Glomerular Filt Rate > 60; Glucose Random 169 mg/dL (60-115); Potassium 3.8 mmol/L (3.3-5.1); Sodium 142 mmol/L (135-145); Total Protein 6.5 g/dL (6.5-8.0)
== END 2024-10-05 12:52 | disposition home or self-care (01) ==
LOC: HO.LAB 12:51
PROVIDERS: PCP Internal Medicine; Visit Provider Internal Medicine
DX: D64.9 Anemia, unspecified (principal)
CPT/HCPCS: 36415; 80053; 85025; 86850; 86900; 86901

== ENCOUNTER 2024-10-17 08:57 | Day surgery (SDC) | payer MEDICARE, SELFPAY ==
--- OUTSIDE RECORDS SUMMARY | 2024-10-09 16:33 | XMS_ITS | Clinical Summary ---
Author Organization [facility] ity Address [address] [place] [address] Care Team Providers Care Armature Repairer Name Role Phone Unavailable Primary Care Provider [...]
--- OUTSIDE RECORDS SUMMARY | 2024-10-09 16:33 | XMS_ITS | Clinical Summary ---
Author Organization [facility] Facility Address [address] [place] [address] Care Team Providers Care Supervisor Ovens Name Role Phone Daniella Colon MD Primary [...] age to complete this topic [place] Care Teams Supervisor Ovens Relationship Specialty Start Date End Date Daniella Colon MD [address] [place] [address] [address] [place] [address] PCP - General Internal Medicine 06/07/22
--- OUTSIDE RECORDS SUMMARY | 2024-10-09 16:33 | XMS_ITS ---
Author Name Elisabeth Murcia NP Address [address] [place] [address] Phone [phone] [facility] Care Team Providers Care Pulp Mill Operator Name Role Phone Elisabeth Murcia Unavailable [phone] [facility] Unavailable Unavailable Unavailable Unavailable OMID OLVERA Unavailable [phone] TYREE PEACOCK Unavailable [phone] DOMINIQUE CHINO Unavailable [phone] Shyann Bermudez Unavailable [phone] Unavailable Unavailable Unavailable Reason for Referral Not [...] Date Resolved Date Other problems related to [facility] facilities and other health care Active 2024-05-14 [...] 95 for video, modifier 93 for phone [facility] ([place] 02/[facility]/2023 Type 2 diabetes mellitus wit h other specified complicationHyperlipidemia, unspecifiedEssential (primary) hypertensionMalignant neoplasm of appendixMajor depressive disorder, recurrent, mildMigraine, unspecified, not intractable, without status migrainosusMorbid (severe) obesity due to excess caloriesBody mass index (BMI) 35.0-35.9, adult New patient, 30-44min 1 stable chronic or 2 minor; add modifier 95 for video, modifier 93 for phone [facility] ([place] 02/15/2023 New patient, 30-44min 1 stable chronic or 2 minor; add modifier 95 for video, modifier 93 for phone [facility], ([place] 02/[place]/2023 New patient, 30-44min 1 stable chronic or 2 minor; add modifier 95 for video, modifier 93 for phone [facility] ([place] 02/15/2023 New patient, 30-44min 1 stable chronic or 2 minor; add modifier 95 for video, modifier 93 for phone [facility] ([place] 02/15/2023 New patient, 30-44min 1 stable chronic or 2 minor; add modifier 95 for video, modifier 93 for phone [facility] ([place]) 02/15/2023 New patient, 30-44min 1 stable chronic or 2 minor; add modifier 95 for video, modifier 93 for phone [facility] ([place]) 02/15/2023 Estab. patient 30-39min; chronic exacerbation, 2 stable chronic or 1 acute illness add add modifier 95 for video, (do not use for phone, instead use 49973-07) [facility] ([place] 05/17/[facility]24 Type 2 diabetes mellitus wit h [...] (do not use for phone, instead use 06597-28) [facility], ([place]) 05/17/2024 Estab. patient 30-39min; chronic exacerbation, 2 stable chronic or 1 acute illness add add modifier 95 for video, (do not use for phone, instead use 09889-91) [facility], ([place]) 05/17/2024 Estab. patient 30-39min; chronic exacerbation, 2 stable chronic or 1 acute illness add add modifier 95 for video, (do not use for phone, instead use 22228-41) [facility], ([place]) 05/17/2024 Estab. patient 30-39min; chronic exacerbation, 2 stable chronic or 1 acute illness add add modifier 95 for video, (do not use for phone, instead use 67654-98) [facility], ([place]) 05/17/2024 Estab. patient 30-39min; chronic exacerbation, 2 stable chronic or 1 acute illness add add modifier 95 for video, (do not use for phone, instead use 42663-19) [facility], ([place]) 05/17/2024 Estab. patient 30-39min; chronic exacerbation, 2 stable chronic or 1 acute illness add add modifier 95 for video, (do not use for phone, instead use 64827-31) [facility], ([place]) 05/17/2024 Estab. patient 30-39min; chronic exacerbation, 2 stable chronic or 1 acute illness add add modifier 95 for video, (do not use for phone, instead use 20531-93) [facility], ([place]) 05/17/2024 Estab. patient 30-39min; chronic exacerbation, 2 stable chronic or 1 acute illness add add modifier 95 for video, (do not use for phone, instead use 24877-07) [facility], ([place]) 05/17/2024 Estab. patient 30-39min; chronic exacerbation, 2 stable chronic or 1 acute illness add add modifier 95 for video, (do not use for phone, instead use 39008-38) [facility] ([place]) 05/17/2024 Vital Signs Date of Collection Vitals [...] Time Current Smoking Status Never smoker 2024-09-16 5 Sex Male History of Procedures Procedures Service Procedure code Service date Servicing provider Phone# New patient, 30-44min 1 stable chronic or 2 minor; add modifier 95 for video, modifier 93 for phone [id number] 2023-02-15 No Data Available No Data Available [...] (do not use for phone, instead use 24561-94) 25110 2024-05-17 No Data Available No Data Availa ble Medication List Documented (1159F) 1159F 2024-05-17 No Data Available No Data Margie ilable Medication Review by prescribing provider or pharmacist documented (1160F) 1160F 2024-05-17 No Data Available No Data Margie ilable Pain Assessment - NO pain present [...] organ damage (headache, vision changes, chest pain)/ Kennel Manager on proper BP monitoring technique and reassess/ [...]
[2024-10-15 10:01] LABS: Hematocrit 35.8 % (42.0-52.0); Hemoglobin 10.2 g/dl (14.0-18.0); Mean Corpuscular HGB Conc 28.5 g/dl (31.0-36.0); Mean Corpuscular Hemoglobin 24.2 pg (27.0-33.0); Mean Corpuscular Volume 84.8 fL (80.0-98.0); Mean Platelet Volume 10.2 fL (9.4-12.4); PLT ABN DIST 1; Platelet Count 143 X10*3/uL (160-400); Red Blood Count 4.22 X10*6/uL (4.60-5.80); Red Cell Distribution Width 23.5 % (11.0-16.0); White Blood Count 4.1 X10*3/uL (4.8-10.8)
[2024-10-15 13:52] VITALS: BMI 37.3
--- NOTE | 2024-10-16 12:00 | P.CONAN_ITS ---
HPI - Anesthesia Eval Consult details Narrative: 59yo M for Colonoscopy Anesthesia Pre-Procedure Meds Is the patient on any of the following meds?: GLP1/DPP4 PMFSH Active Problems Active Problems: All Active Problems Orthostatic hypotension (Acute) Type 2 diabetes mellitus with hyperglycemia (Acute) Gastritis (Acute) GERD (gastroesophageal reflux disease) (Acute) Iron deficiency anemia (Acute) Anemia, chronic disease (Acute) Acute anemia (Acute) Acute hyperglycemia (Acute) Bright red rectal bleeding (Acute) Prolonged QT interval (Acute) Intra-abdominal abscess (Acute) JENNIFER (acute kidney injury) (Acute) Diarrhea (Acute) Primary appendiceal adenocarcinoma (Chronic) KYM (obstructive sleep apnea) (Acute) Varicose veins of right lower extremity with inflammation (Acute) History of colon cancer (Acute) Infected cyst of skin (Acute) Cellulitis of abdominal wall (Acute) Morbid obesity (Acute) Umbilical hernia (Acute) Obesity (BMI 30-39.9) (Acute) Dyslipidemia (Acute) HTN (hypertension) (Acute) Diabetic nephropathy associated with type 2 diabetes mellitus (Acute) Epidermal cyst (Acute) Diabetes type 2, controlled (Acute) Past Medical History Medical History (Updated 10/15/24 @ 13:55 by Jordana Chavez, RN) Anemia History of blood transfusion (09/20/24) History of colon cancer Infected cyst of skin Cellulitis of abdominal wall Eye inflammation Sleep apnea Ambulates with cane Back pain due to injury Morbid obesity Umbilical hernia Obesity (BMI 30-39.9) Dyslipidemia Diabetic nephropathy associated with type 2 diabetes mellitus Epidermal cyst HTN (hypertension) Diabetes type 2, controlled Family History Family History Father Diabetes Heart disease Mother Diabetes Heart disease Other No family history of cancer Family history of problems with anesthesia: No Surgical History Surgical History History of colon resection S/P right colectomy H/O colonoscopy S/P appendectomy History of umbilical hernia repair (~01/08/22) Hx of removal of cyst History of Problems with Anesthesia: No Social History Social History Household Members: Spouse Housing: House Are you a primary cardiac care unit nurse to a significant other at home: No Do you presently have visiting nurse or other home services: No Alcohol intake: never Comment: Ofirmev infusing at time of xfer Patient Tobacco Use Status: Never used Tobacco service: No Current occupational status: disabled Meds Allergies Allergy/AdvReac Type Severity Reaction Status Date / Time oxaliplatin Allergy Intermediate Shortness Verified 10/15/24 13:41 of Breath lisinopril [LISINOPRIL] Allergy Mild RASH Verified 09/19/24 12:50 Home Medications ?Medication ?Instructions ?Recorded ?Confirmed ?Last Taken ?Type atorvastatin 10 mg tablet 10 mg PO BEDTIME 10/22/20 10/15/24 09/03/24 History carvedilol 12.5 mg tablet 12.5 mg PO BID 10/22/20 10/15/24 09/03/24 History cholecalciferol (vitamin D3) 25 25 mcg PO DAILY 10/22/20 10/15/24 09/03/24 History mcg (1,000 unit) capsule trazodone 150 mg tablet 150 mg PO BEDTIME 11/04/20 10/15/24 09/03/24 History sertraline 100 mg tablet 150 mg PO BEDTIME 01/04/22 10/15/24 09/03/24 History buspirone 10 mg tablet 10 mg PO DAILY 09/20/23 10/15/24 09/03/24 History clotrimazole 1 % topical cream 1 appl topical BID PRN Rash 09/20/23 10/15/24 09/03/24 History fluticasone propionate 50 1 - 2 spray intranasal DAILY PRN 04/09/24 10/15/24 09/03/24 History mcg/actuation nasal cold and allergies spray,suspension exenatide microspheres 2 mg/0.85 2 mg subcut FR 05/15/24 10/15/24 09/17/24 History mL subcutaneous auto-injector (Jewell Rivas) hydrochlorothiazide 25 mg tablet 25 mg PO DAILY 10/15/24 10/15/24 Unknown History Exam Height,Weight and Vital Signs: Height 5 ft 10 in Weight 117.934 kg Pertinent Lab Results Pertinent Lab Results: Laboratory Tests 10/15/24 10/15/24 09:00 09:09 WBC 4.1 L RBC 4.22 L Hgb 10.2 L Hct 35.8 L MCV 84.8 MCH 24.2 L MCHC 28.5 L RDW 23.5 H Plt Count 143 L MPV 10.2 Absolute Nucleated RBC 0.000 Nucleated RBC % (auto) 0.0 Blood Type O Positive Antibody Screen NEGATIVE Narrative Narrative: EKG 08/2024 Vent. Rate : 95 BPM Atrial Rate : 95 BPM P-R Int : 120 ms QRS Dur : 94 ms QT Int : 364 ms P-R-T Axes : 52 13 22 degrees QTcB Int : 457 ms Normal sinus rhythm Incomplete right bundle branch block Borderline ECG When compared with ECG of 11-Jan-2023 13:16, Incomplete right bundle branch block is now Present Nonspecific T wave abnormality no longer evident in Anterior leads Assessment and Plan Assessment Anesthesia Assessment: Chart Reviewed Final Anesthetic Review Family History of Problems with Anesthesia: No History of Problems with Anesthesia: No
--- NOTE | 2024-10-17 09:10 | MHC.SHP ---
Pre-Procedural Eval Section A - 24 Hr Update-Section A only Date of Service: 10/17/24 The patient is an INPATIENT: No The patient has been examined within 24 hours of the surgical procedure. The History & Physical has been completed within 30 days and I have reviewed it.: Yes Section B - Complete if H&P > 30 days Chief Complaint: anemia Allergies: Allergies Allergy/AdvReac Type Severity Reaction Status Date / Time oxaliplatin Allergy Intermediate Shortness Verified 10/15/24 13:41 of Breath lisinopril [LISINOPRIL] Allergy Mild RASH Verified 09/19/24 12:50 Plan Diagnosis/Plan: Unchanged I have reviewed the history and physical and performed a pertinent physical examination on my patient. No changes have occurred unless specified. Time Spent With Patient Time: Total time managing care of this patient today ____ minutes.
[2024-10-17 09:26] VITALS: BP 155/82; PULSE 85; RESP 18; TEMP 36.6; O2SAT 94
--- NOTE | 2024-10-17 09:36 | P.CONAN_ITS ---
[facility] Active Problems Active Problems: All Active Problems Orthostatic hypotension (Acute) Type 2 diabetes mellitus with hyperglycemia (Acute) Gastritis (Acute) GERD (gastroesophageal reflux disease) (Acute) Iron deficiency anemia (Acute) Anemia, chronic disease (Acute) Acute anemia (Acute) Acute hyperglycemia (Acute) Bright red rectal bleeding (Acute) Prolonged QT interval (Acute) Intra-abdominal abscess (Acute) JENNIFER (acute kidney injury) (Acute) Diarrhea (Acute) Primary appendiceal adenocarcinoma (Chronic) KYM (obstructive sleep apnea) (Acute) Varicose veins of right lower extremity with inflammation (Acute) History of colon cancer (Acute) Infected cyst of skin (Acute) Cellulitis of abdominal wall (Acute) Morbid obesity (Acute) Umbilical hernia (Acute) Obesity (BMI 30-39.9) (Acute) Dyslipidemia (Acute) HTN (hypertension) (Acute) Diabetic nephropathy associated with type 2 diabetes mellitus (Acute) Epidermal cyst (Acute) Diabetes type 2, controlled (Acute) Past Medical History Medical History Anemia History of blood transfusion (09/20/24) History of colon cancer Infected cyst of skin Cellulitis of abdominal wall Eye inflammation Sleep apnea Ambulates with cane Back pain due to injury Morbid obesity Umbilical hernia Obesity (BMI 30-39.9) Dyslipidemia Diabetic nephropathy associated with type 2 diabetes mellitus Epidermal cyst HTN (hypertension) Diabetes type 2, controlled Functional capacity: independent ambulation Family History Family History Father Diabetes Heart disease Mother Diabetes Heart disease Other No family history of cancer Family history of problems with anesthesia: No Surgical History Surgical History History of colon resection S/P right colectomy H/O colonoscopy S/P appendectomy History of umbilical hernia repair (~01/08/22) Hx of removal of cyst History of Problems with Anesthesia: No Social History Social History Household Members: Spouse Housing: House Are you a primary career services director to a significant other at home: No Do you presently have visiting nurse or other home services: No Alcohol intake: never Comment: Ofirmev infusing at time of xfer Patient Tobacco Use Status: Never used Tobacco Use of substances other than those prescribed or required for medical reasons: No Have you been hit, kicked, punched, or otherwise hurt by someone within the past year? If so, by whom?: No Are you DNR?: No Advance Directives: No (will bring dos) Advance Directives Information Provided: Yes Advance Directives on File: No Recently lost weight without trying: No Nutrition Risks: No Nutritional Risk Poor oral hygiene: No service: No Current occupational status: disabled Meds Allergies Allergy/AdvReac Type Severity Reaction Status Date / Time oxaliplatin Allergy Intermediate Shortness Verified 10/17/24 09:15 of Breath lisinopril [LISINOPRIL] Allergy Mild RASH Verified 10/17/24 09:15 Active Medications: Current Medications Lactated Ringer's (Lr) 1,000 mls @ 100 mls/hr IVCONT .Q10H TEENA Home Medications ?Medication ?Instructions ?Recorded ?Confirmed ?Last Taken ?Type atorvastatin 10 mg tablet 10 mg PO BEDTIME 10/22/20 10/15/24 09/03/24 History carvedilol 12.5 mg tablet 12.5 mg PO BID 10/22/20 10/15/24 09/03/24 History cholecalciferol (vitamin D3) 25 25 mcg PO DAILY 10/22/20 10/15/24 09/03/24 History mcg (1,000 unit) capsule trazodone 150 mg tablet 150 mg PO BEDTIME 11/04/20 10/15/24 09/03/24 History sertraline 100 mg tablet 150 mg PO BEDTIME 01/04/22 10/15/24 09/03/24 History buspirone 10 mg tablet 10 mg PO DAILY 09/20/23 10/15/24 09/03/24 History clotrimazole 1 % topical cream 1 appl topical BID PRN Rash 09/20/23 10/15/24 09/03/24 History fluticasone propionate 50 1 - 2 spray intranasal DAILY PRN 04/09/24 10/15/24 09/03/24 History mcg/actuation nasal cold and allergies spray,suspension hydrochlorothiazide 25 mg tablet 25 mg PO DAILY 10/15/24 10/15/24 Unknown History Exam Height,Weight and Vital Signs: Height 5 ft 10 in Weight 117.934 kg Last Vital Signs Temp 97.8 F 10/17/24 09:26 Pulse 85 10/17/24 09:26 Resp 18 10/17/24 09:26 BP 155/82 H 10/17/24 09:26 Pulse Ox 94 10/17/24 09:26 Pertinent Lab Results Pertinent Lab Results: Laboratory Tests 10/15/24 10/15/24 09:00 09:09 WBC 4.1 L RBC 4.22 L Hgb 10.2 L Hct 35.8 L MCV 84.8 MCH 24.2 L MCHC 28.5 L RDW 23.5 H Plt Count 143 L MPV 10.2 Absolute Nucleated RBC 0.000 Nucleated RBC % (auto) 0.0 Blood Type O Positive Antibody Screen NEGATIVE Airway Mallampati Class: III TM Dist: >3cm Neck ROM: Full Heart: RRR Lungs: CTA Assessment and Plan Assessment Anesthesia Assessment: Anesthesia Plan Discussed and Chart Reviewed Final Anesthetic Review Family History of Problems with Anesthesia: No History of Problems with Anesthesia: No NPO: Yes ASA Class: III Final Preanesthetic Review: Meds/Allgs Chart Reviewed, Consent Obtained/Reviewed and Anes Risks/Benef Reviewed Patient Risk: Intermediate Procedure Risk: Low Anesthetic Plan Anesthetic Plan: MAC: Disposition: Standard PACU
[2024-10-17 09:43] LABS: Glucose, Whole Blood 91 mg/dL (60-115)
[2024-10-17] MEDS: Lactated Ringers 1,000 ML 100 ML IVCONT (09:50)
--- NOTE | 2024-10-17 10:51 | P.OPN-COLO_ITS ---
Colonoscopy Operative Note Operative Note Date of Service: 06/14/24 Narrative: Procedure: Colonoscopy Indication: Anemia, hx of appendiceal adenoca Endoscopist: Jil Robles MD Anesthesia Provider: Dr Fang Haas Anesthesia type: MAC Instrument: Olympus [id number]-[id number] Consent: Indication, risks vs benefits, and alternatives were discussed with the patient who gave written informed consent to proceed. EKG, pulse, pulse oximetry and blood pressure were monitored throughout the procedure. Please see anesthesia flowsheet. Procedure: The patient was brought to the procedure room and placed in the left lateral decubitus position. IV medications were administered by the anesthesia provider in attendance. A digital rectal exam was performed which was pos for ext hemorrhoids A distal attachment cap was affixed to the tip of the colonoscope which was then inserted through the anus and advanced through the colon to the ileocolonic anastomosis at 70 cm,and christian-terminal ileum. Mucosa was carefully examined under high definition white light as the instrument was slowly withdrawn in a retrograde panoramic fashion. Retroflexion was performed in rectum. The procedure was not difficult. There were no immediate obvious complications. The quality of the prep was N/A+2+1 (poor in left colon). Withdrawal time 9 minutes. Limitations: No limitations. Findings: Mucosa: Copious liquid stool with solid roughage noted stacey in distal descending and sigmoid colon which could not be adequately flushed off. Remaining mucosa normal to the extent visualized. The ileocolonic anastomosis appeared healthy. Terminal ileum appeared normal - almost 20 cm deep intubated. Protruding lesions: * Large internal hemorrhoids without stigmata of recent bleeding. Impression: 1. Poor prep in left colon 2. Normal ileocolonic anastomosis, and ileal mucosa 2. Internal and external hemorrhoids Recommendations: * Video capsule endoscopy to be booked * Cont iron supplementation through Onc * MRI pending * PET imaging deferred to Onc * Repeat colonoscopy in 2026 for surveillance after appendiceal adenoca
[2024-10-17 10:55] VITALS: BP 94/57; PULSE 89; RESP 16; TEMP 36.3; O2SAT 95
[2024-10-17 11:10] VITALS: BP 111/60; PULSE 85; RESP 16; O2SAT 100
[2024-10-17 11:25] VITALS: BP 111/60; PULSE 77; RESP 16; TEMP 36.3; O2SAT 97
--- NOTE | 2024-10-17 14:45 | HO.POSTANES ---
Post Anesthesia Evaluation Post Anesthesia Evaluation Date of Service: 10/17/24 Vital Signs: Vital Signs Temp Pulse Resp BP Pulse Ox O2 Del Method 10/17/24 11:25 97.4 F 77 16 111/60 97 Room Air 10/17/24 11:10 85 16 111/60 100 Room Air 10/17/24 10:55 97.3 F 89 16 94/57 L 95 Room Air 10/17/24 09:26 97.8 F 85 18 155/82 H 94 Anesthesia: Monitored Mental Status: Awake Pain Control: Satisfactory Nausea/Vomiting: None Hydration: Adequate Anesthesia-Related Issues: No Anes. Related Issues
== END 2024-10-17 12:40 | disposition home or self-care (01) ==
PROVIDERS: PCP Internal Medicine; Visit Provider Internal Medicine
PROC: 0DJD8ZZ Inspection of Lower Intestinal Tract, Via Natural or Artificial Opening Endoscopic (ICD-10-PCS; CPT 45378; principal; 2024-10-17 10:20)
DX: K63.89 Other specified diseases of intestine (principal); K64.8 Other hemorrhoids; K64.4 Residual hemorrhoidal skin tags; C18.1 Malignant neoplasm of appendix; D50.9 Iron deficiency anemia, unspecified; Z91.199 Patient's noncompliance with other medical treatment and regimen due to unspecified reason; E11.9 Type 2 diabetes mellitus without complications; I10 Essential (primary) hypertension; E78.5 Hyperlipidemia, unspecified; G47.33 Obstructive sleep apnea (adult) (pediatric)
CPT/HCPCS: G0105; 36415; 82947; 85027; 86850; 86900; 86901

== ENCOUNTER → 2024-10-17 08:57 | Outpatient (BNV) | payer MEDICARE, SELFPAY | PROVIDERS: PCP Internal Medicine; Visit Provider Internal Medicine | DX: D50.9 Iron deficiency anemia, unspecified (principal); Z85.09 Personal history of malignant neoplasm of other digestive organs; K64.8 Other hemorrhoids; Z91.199 Patient's noncompliance with other medical treatment and regimen due to unspecified reason | CPT/HCPCS: 45378 ==

== ENCOUNTER → 2024-10-21 15:07 | Outpatient (BNV) | payer MEDICARE, SELFPAY | PROVIDERS: PCP Internal Medicine; Visit Provider Radiology Diagnostic Radiology | DX: D50.9 Iron deficiency anemia, unspecified (principal) | CPT/HCPCS: 74183 ==

== ENCOUNTER 2024-10-21 15:13 | Outpatient (REF) | payer MEDICARE, SELFPAY ==
--- NOTE | ~2024-10-21 | MR_ITS ---
CLINICAL HISTORY: D50.9 - Iron deficiency anemia, unspecified MR abdomen with and without contrast Comparison: CT/[place]/SR - CT ABDOMEN PELVIS W IV CON - 07/16/24 09:12 EST Findings: No signal abnormality of the lung bases. No pleural effusion. Unremarkable gallbladder. No intrahepatic or extrahepatic biliary ductal dilatation. 6 mm cyst in the dome of the liver. Normal partially visualized bladder. The other solid organs are unremarkable. No bowel wall thickening or dilation. Colonic diverticulosis. No aneurysm. No lymphadenopathy. No ascites. Fat containing ventral hernias. Normal marrow signal. Impression: No acute findings. No findings to explain the patient's presentation. This document has been electronically signed by: Britta Sevilla MD on 10/21/2024 18:42:10
[2024-10-21] MEDS: gadobutroL 10 ML VIAL IVPUSH (16:18)
== END 2024-10-21 15:14 | disposition home or self-care (01) ==
LOC: HO.MRI 15:13
PROVIDERS: PCP Internal Medicine; Visit Provider Internal Medicine
DX: D50.9 Iron deficiency anemia, unspecified (principal); Z85.038 Personal history of other malignant neoplasm of large intestine
CPT/HCPCS: 74183; A9585

== ENCOUNTER 2024-10-29 09:17 | Outpatient (AMB) | payer MEDICARE, SELFPAY ==
[2024-10-29 09:22] VITALS: BP 132/78; PULSE 78; O2SAT 98; BMI 38.0
--- NOTE | 2024-10-29 09:22 | A.OFFVIS_ITS ---
Vital Signs 10/29/24 09:22 Height 5 ft 10 in Weight 264 lb 8.875 oz BMI 38.0 BP 132/78 Blood Pressure Location Rt brachial Position Sitting Pulse 78 Pulse Source Pulse Oximeter Pulse Oximetry (%) 98 Oxygen Delivery Method Room Air Intake Visit Reasons: T2DM w/Hyperglycemia Intake Note: Patient presents today to re-establish treatment for Type 2 Diabetes Mellitus: Last Diabetic eye exam was on: Within the year Last Podiatry exam was on: Patient does not see a Spice Room Worker Most recent HbA1c: 12.9%, 09/04/2024 Random Glucose- 223 mg/dL, Today [employer] Account Executive Required: No Accompanied by: Significant Other Allergies oxaliplatin Allergy (Intermediate, Verified 10/29/24 09:24) Shortness of Breath lisinopril [LISINOPRIL] Allergy (Mild, Verified 10/29/24 09:24) RASH Medication List - Last Reconciled 10/29/24 by Janette Sheikh PA-C alcohol swabs 1 pad topical QIDACHS atorvastatin 10 mg PO BEDTIME blood sugar diagnostic (FreeStyle Lite Strips) Test four times a day or as directed. blood-glucose meter (FreeStyle Lite Meter kit) As Directed buspirone 10 mg PO DAILY carvedilol 12.5 mg PO BID cholecalciferol (vitamin D3) 25 mcg PO DAILY clotrimazole 1% 1 appl topical BID PRN ferrous sulfate 300 mg (5 mL) PO BIDWM fluticasone propionate 50 mcg/actuation 1 - 2 sprays intranasal DAILY PRN insulin glargine (Lantus Solostar U-100 Insulin) 45 units (0.45 mL) subcut DAILY lancets (FreeStyle Lancets) Test four times a day or as directed. omeprazole 20 mg PO DAILY@0630 peg 3350-electrolytes 236-22.74-6.74 -5.86 gram (Golytely) 240 mL PO Q10M pen needle, diabetic Use four times a day or as directed. sertraline 150 mg PO BEDTIME trazodone 150 mg PO BEDTIME HPI HPI T2DM w/Hyperglycemia: Details: Patient is a 59-year-old male with a significant past medical history of hypertension, hyperlipidemia, type 2 diabetes, obesity, previous JENNIFER, anemia and GERD presenting today for consultation regarding diabetes. He previously followed with Dr. Mills about 2 years ago and was released to PCP with proper glycemic control. Endo: Dm-was diagnosed with diabetes around 2009. His last A1c was 12.9. He is currently on Lantus 45 units daily. He states that he was started on Lantus while hospitalized in August for an JENNIFER. Previous to starting Lantus he was just managed on Bydureon?which was doing nothing to control his blood sugars. He states that he was previously on Trulicity which was effective for his blood sugars but at the high doses did cause some nausea. He also read into a lot of supply issues with the Trulicity and this is why he was switched. Prior to Trulicity he was on Ozempic which was ineffective for his blood sugars and for any weight loss. He states that that 1 did cause more stomach upset than Trulicity. He has never tried Mounjaro. He has never had a CGM before but is interested in this. His states that it makes her nervous that he is taking so much insulin with out a CGM. She states a couple times his blood sugars have been low. The other day it was 55 and he was sweaty and pale looking. They corrected the blood sugar with orange juice. He states on average when he checks his blood sugars in the morning it is somewhere between 111 up to 160. CV: Blood pressure today in the office is 132/78. He is currently managed with hydrochlorothiazide 25 mg, carvedilol 12.5 mg twice a day. Cholesterol is managed with atorvastatin 10 mg. No myalgias. Last LDL was PFSH Medical History Anemia History of blood transfusion (09/20/24) History of colon cancer Infected cyst of skin Cellulitis of abdominal wall Eye inflammation Sleep apnea Ambulates with cane Back pain due to injury Morbid obesity Umbilical hernia Obesity (BMI 30-39.9) Dyslipidemia Diabetic nephropathy associated with type 2 diabetes mellitus Epidermal cyst HTN (hypertension) Diabetes type 2, controlled Surgical History History of colon resection S/P right colectomy H/O colonoscopy S/P appendectomy History of umbilical hernia repair (~01/08/22) Hx of removal of cyst Family History Father Diabetes Heart disease Mother Diabetes Heart disease Other No family history of cancer Social History Household Members: Spouse Housing: House Are you a primary behavioral health care coordinator to a significant other at home: No Do you presently have visiting nurse or other home services: No Alcohol intake: never Comment: Ofirmev infusing at time of xfer Patient Tobacco Use Status: Never used Tobacco service: No Current occupational status: disabled Physical Exam Vital Signs: Last Vital Signs Pulse 78 10/29/24 09:22 BP 132/78 10/29/24 09:22 Pulse Ox 98 10/29/24 09:22 Oxygen Delivery Method Room Air 10/29/24 09:22 BMI result Body Mass Index 38.0 Const Orientation/consciousness: patient oriented x3 HEENT Ears: hearing grossly normal bilaterally Neck Thyroid: Thyroid normal Lymphatic: no lymphadenopathy noted Resp Auscultation: clear to auscultation bilaterally Cardio Rate: regular rate Rhythm: regular rhythm Heart sounds: S1 normal heart sound present and S2 normal heart sound present Skin General skin exam: no rashes or lesions noted Neuro General: patient oriented x3, gait normal and no focal motor deficits Assessment & Plan Assessment & Plan (1) Type 2 diabetes mellitus with hyperglycemia: Code(s): E11.65 - Type 2 diabetes mellitus with hyperglycemia Category: Medical Plan: I have provided patient with a CGM today in the office. I downloaded the [employer] nigel with him and his and reviewed how to use it. CGM were ordered for him. We did discuss the benefits of this as he is on insulin and has been having intermittent hypoglycemic events along with uncontrolled hyperglycemia. We will try Mounjaro. Discussed risks and benefits and adverse effects of the medication. He has already tried the Bydureon, Trulicity and Ozempic. Please see HPI for further details regarding failure of this medication. Reduce the Lantus to 40 units given the hypoglycemia. We reviewed a diabetic diet, pathophysiology of diabetes and signs and symptoms of hyper and hypoglycemia that would require emergent medical treatment. Reviewed rule of 15. Glucose tabs ordered. 65 minutes today is spent in face to face time reviewing diabetes, his chart and recent hospitalization. Advised to return for short term follow up and complete labs prior to appointment. (2) HTN (hypertension): Code(s): I10 - Essential (primary) hypertension Category: Medical Qualifiers: Hypertension type: essential hypertension Qualified Code(s): I10 - Essential (primary) hypertension Plan: WNL. Continue current regimen. He was discontinued on hydrochlorothiazide while at the hospital and is not sure if he is taking it at home or not. I advised him to recheck his renal function and make sure that he is off of the hydrochlorothiazide and have a short term follow up for blood pressure. (3) Dyslipidemia: Code(s): E78.5 - Hyperlipidemia, unspecified Category: Medical Plan: Compliant with the atorvastatin. Lipids and LFTs were ordered. We will follow up pending test results. Orders: Orders Lipid Panel Today E11.21 - Type 2 diabetes mellitus with diabetic nephropathy, E11.65 - Type 2 diabetes mellitus with hyperglycemia, E78.5 - Hyperlipidemia, unspecified, I10 - Essential (primary) hypertension Comprehensive [place]. Panel Fast Today E11.21 - Type 2 diabetes mellitus with diabetic nephropathy, E11.65 - Type 2 diabetes mellitus with hyperglycemia, E78.5 - Hyperlipidemia, unspecified, I10 - Essential (primary) hypertension B Type Natriuretic Peptide Today E11.21 - Type 2 diabetes mellitus with diabetic nephropathy, E11.65 - Type 2 diabetes mellitus with hyperglycemia, E78.5 - Hyperlipidemia, unspecified, I10 - Essential (primary) hypertension Microalbumin, Random (w Creat) Today E11.21 - Type 2 diabetes mellitus with diabetic nephropathy, E11.65 - Type 2 diabetes mellitus with hyperglycemia, E78.5 - Hyperlipidemia, unspecified, I10 - Essential (primary) hypertension Medications: New blood-glucose sensor (FreeStyle Deja 3 Plus Sensor device) Use daily As directed to monitor glucose 2 ea 5RF E08.29 - Diabetes mellitus due to underlying condition with other diabetic kidney complication, R80.9 - Proteinuria, unspecified, Z79.4 - [facility] (current) use of insulin glucose (Dex4 Glucose) until symptoms of low blood sugar are controlled 16 grams (4 x 4 gram) PO Q15M PRN 100 tabs 0RF hypoglycemia tirzepatide (Mounjaro) for 4 weeks 2.5 mg (0.5 mL) subcut QWEEK 2 mL 1RF Changed From lancets (FreeStyle Lancets) Test four times a day or as directed. 100 ea 0RF E11.29 - Type 2 diabetes mellitus with other diabetic kidney complication, R73.9 - Hyperglycemia, unspecified, R80.9 - Proteinuria, unspecified To lancets (FreeStyle Lancets) test blood glucose BID or as directed. 100 ea 0RF E11.29 - Type 2 diabetes mellitus with other diabetic kidney complication, R73.9 - Hyperglycemia, unspecified, R80.9 - Proteinuria, unspecified From blood sugar diagnostic (FreeStyle Lite Strips) Test four times a day or as directed. 100 ea 0RF E11.29 - Type 2 diabetes mellitus with other diabetic kidney complication, R73.9 - Hyperglycemia, unspecified, R80.9 - Proteinuria, unspecified To blood sugar diagnostic (FreeStyle Lite Strips) Test BID or as directed. 100 ea 3RF E11.29 - Type 2 diabetes mellitus with other diabetic kidney complication, R73.9 - Hyperglycemia, unspecified, R80.9 - Proteinuria, unspecified Refilled blood-glucose meter (FreeStyle Lite Meter kit) As Directed 1 ea 0RF E11.29 - Type 2 diabetes mellitus with other diabetic kidney complication, R73.9 - Hyperglycemia, unspecified, R80.9 - Proteinuria, unspecified Coding Level of Care Code Est Pt Level 5 (79948) Complex EM visit Add On G2211 Diagnoses Type 2 diabetes mellitus with hyperglycemia E11.65 Essential hypertension I10 Hypertension type: essential hypertension Dyslipidemia E78.5
[2024-10-29 09:38] LABS: Glucose, Whole Blood 223 mg/dL (60-115)
--- OUTSIDE RECORDS SUMMARY | 2024-10-29 10:01 | XMS_ITS | Clinical Summary ---
Author Organization [address] [place] [address] [place] [phone] Phone Care Team Providers Care Fisher Oyster Name Role Phone Shyann Bermudez Primary Care Provider Social History Tobacco Use Types Packs/Day Years Used Date Smoking Tobacco: Never Assessed Sex and Gender Information Value Date Recorded Sex Assigned at Not on file Legal Sex Male 5:04 AM EST Gender Identity Not on file Sexual Orientation Not on file Plan of Treatment Upcoming Encounters Date Type Department Care Team ([facility] Contact Info) Description 12/13/2024 3:15 PM EDT Consult Orthopedic Surgery - [place] [id number] [phone] Ja Reddy, DPM [address] [address] Health Maintenance Due Date Last Done Comments Diabetes: Annual GFR (Glomer ular Filtration Rate) 1965 Diabetes: Annual Foot Exam 1975 Diabetes: Annual Retina Eye Exam 1975 DTaP,Tdap,and Td Vaccines (1 - Tdap) 1984 Hepatitis B Vaccines (1 of 3 - 19+ 3-dose series) 1984 Pneumococcal Vaccine: 50+ Ye ars (1 of 2 - PCV) 1984 Pneumococcal Vaccine: Pediat rics (0 to 5 Years) and At-Risk Patients (6 to 64 Years) (1 of 2 - PCV) 1984 Zoster Vaccines (1 of 2) 2015 COVID-19 Vaccine ( - 2023-2 5 season) 2024 Influenza Vaccine (#1) 2024 Cholesterol Screening (Lipid Panel) 10/24/2024 Colorectal Cancer Screening: Colonoscopy 10/24/2024 Depression Screening 10/24/2024 Diabetes: Annual Urine Albumin-Creatinine Ratio (uACR) 10/24/2024 Diabetes: Blood Sugar Contro l Test (HGBA1C) 10/24/2024 HIV Screening 10/24/2024 Hepatitis C Screening 10/24/2024 Social Influencers of Health Screening 10/24/2024 RSV Immunization Patients 60 + Years Old [...] patient's age to complete this topic Insurance [facility] [employer] [id number] Care Teams Fisher Oyster Relationship Specialty Start Date End Date Shyann Bermudez PA [address] [place] [phone] PCP - General Physician Customs And Immigration Officer 10/24/24
--- OUTSIDE RECORDS SUMMARY | 2024-10-29 10:01 | XMS_ITS ---
Author Name Elisabeth Murcia NP Address [address] [place] [address] Phone [phone] [facility] Care Team Providers Care Wrapper Sheeter Name Role Phone Elisabeth Murcia Unavailable [phone] [facility] Unavailable Unavailable Unavailable Unavailable OMID OLVERA Unavailable [phone] TYREE PEACOCK Unavailable [phone] DOMINIQUE CHINO Unavailable [phone] Shyann Bermudez Unavailable [phone] Reason for Referral Not Available Allergies, adverse [...] mg Tab TAKE ONE AND ONE H [facility] (1.5) TABLETS BY MOUTH DAILY 2022-10-21 No [...] Date Resolved Date Other problems related to [facility] facilities and other health care Active 2024-05-14 [...] 95 for video, modifier 93 for phone [facility] ([place] 02/[facility]/2023 Type 2 diabetes mellitus wit h other specified complicationHyperlipidemia, unspecifiedEssential (primary) hypertensionMalignant neoplasm of appendixMajor depressive disorder, recurrent, mildMigraine, unspecified, not intractable, without status migrainosusMorbid (severe) obesity due to excess caloriesBody mass index (BMI) 35.0-35.9, adult New patient, 30-44min 1 stable chronic or 2 minor; add modifier 95 for video, modifier [address] [facility] [place] 02/15/2023 New patient, 30-44min 1 stable chronic or 2 minor; add modifier 95 for video, modifier 93 for phone [facility], ([place] 02/15/2023 New patient, 30-44min 1 stable chronic or 2 minor; add modifier 95 for video, modifier [address] [facility], ([place] 02/15/2023 New patient, 30-44min 1 stable chronic or 2 minor; add modifier 95 for video, modifier [address] [facility], [place] 02/15/2023 New patient, 30-44min 1 stable chronic or 2 minor; add modifier 95 for video, modifier [address] [facility], [place] 02/15/2023 New patient, 30-44min 1 stable chronic or 2 minor; add modifier 95 for video, modifier [address] [facility], [place] 02/15/2023 Estab. patient 30-39min; chronic exacerbation, 2 stable chronic or 1 acute illness add add modifier 95 for video, (do not use for phone, instead use 21540-48) [facility], ([place] 05/17/2024 Type 2 diabetes mellitus wit h [...] (do not use for phone, instead use 75307-14) [facility], ([place] 05/17/2024 Estab. patient 30-39min; chronic exacerbation, 2 stable chronic or 1 acute illness add add modifier 95 for video, (do not use for phone, instead use 03513-01) [facility], ([place] 05/17/2024 Estab. patient 30-39min; chronic exacerbation, 2 stable chronic or 1 acute illness add add modifier 95 for video, (do not use for phone, instead use 23200-65) [facility], ([place] 05/17/2024 Estab. patient 30-39min; chronic exacerbation, 2 stable chronic or 1 acute illness add add modifier 95 for video, (do not use for phone, instead use 13627-57) [facility], ([place] 05/17/20[place] Estab. patient 30-39min; chronic exacerbation, 2 stable chronic or 1 acute illness add add modifier 95 for video, (do not use for phone, instead use 00267-47) [facility], [place] 05/17/20[place] Estab. patient 30-39min; chronic exacerbation, 2 stable chronic or 1 acute illness add add modifier 95 for video, (do not use for phone, instead use 65979-04) [facility], [place] 05/17/20[place] Estab. patient 30-39min; chronic exacerbation, 2 stable chronic or 1 acute illness add add modifier 95 for video, (do not use for phone, instead use 19501-12) [facility], ([place] 05/17/2024 Estab. patient 30-39min; chronic exacerbation, 2 stable chronic or 1 acute illness add add modifier 95 for video, (do not use for phone, instead use 65946-07) [facility], ([place] 05/17/2024 Estab. patient 30-39min; chronic exacerbation, 2 stable chronic or 1 acute illness add add modifier 95 for video, (do not use for phone, instead use 71882-77) [facility] ([place]) 05/17/2024 Vital Signs Date of Collection Vitals [...] tive Time Current Smoking Status Never smoker 2024-10-13 7 Sex Male History of Procedures Procedures Service Procedure code Service date Servicing provider Phone# New patient, 30-44min 1 stable chronic or 2 minor; add modifier 95 for video, modifier 93 for phone [id number] 2023-02-15 No Data Available No Data Available [...] (do not use for phone, instead use [id number]) [id number] 2024-05-17 No Data Available No Data Availa [...] organ damage (headache, vision changes, chest pain)/ Treating Plant Pumper on proper BP monitoring technique and reassess/ [...]
--- OUTSIDE RECORDS SUMMARY | 2024-10-29 10:01 | XMS_ITS | Clinical Summary ---
Author Organization [facility] Facility Address [address] [place] [id number] Care Team Providers Care Drivematic Machine Operator Name Role Phone Daniella Colon MD Primary [...] age to complete this topic Insurance [place] Care Teams Drivematic Machine Operator Relationship Specialty Start Date End Date Daniella Colon MD [address] [place] [address] [address] [place] [phone] PCP - General Internal Medicine 06/07/22
== END 2024-10-29 10:09 | disposition home or self-care (01) ==
LOC: HO.ENCR 09:18
PROVIDERS: PCP Internal Medicine; Visit Provider Physician Assistant
DX: E11.65 Type 2 diabetes mellitus with hyperglycemia (principal); I10 Essential (primary) hypertension; E78.5 Hyperlipidemia, unspecified

== ENCOUNTER → 2024-10-29 09:17 | Outpatient (BNVA) | payer MEDICARE, SELFPAY | PROVIDERS: PCP Internal Medicine; Visit Provider Physician Assistant | DX: E11.65 Type 2 diabetes mellitus with hyperglycemia (principal); E78.5 Hyperlipidemia, unspecified; I10 Essential (primary) hypertension | CPT/HCPCS: 82947; 99212 ==

== ENCOUNTER 2024-11-26 08:41 | Outpatient (AMB) | payer MEDICARE, SELFPAY ==
[2024-11-26 08:43] VITALS: BP 136/78; PULSE 70; O2SAT 100; BMI 38.8
--- NOTE | 2024-11-26 08:43 | A.OFFVIS_ITS ---
Vital Signs 11/26/24 08:43 Height 5 ft 10 in Weight 270 lb 8.115 oz BMI 38.8 BP 136/78 Blood Pressure Location Lt brachial Position Sitting Pulse 70 Pulse Source Pulse Oximeter Pulse Oximetry (%) 100 Oxygen Delivery Method Room Air Intake Visit Reasons: dm Intake Note: Patient present today for Type 2 Diabetes Mellitus Last Diabetic eye exam: January 2024 Last Podiatry Visit: Has upcoming appt. Random Glucose: 103 mg/dl HgA1C: 6.1% Building Construction Foreman Required: No Accompanied by: Spouse Allergies oxaliplatin Allergy (Intermediate, Verified 11/26/24 08:48) Shortness of Breath lisinopril [LISINOPRIL] Allergy (Mild, Verified 11/26/24 08:48) RASH Medication List - Last Reconciled 11/26/24 by Janette Sheikh PA-C alcohol swabs 1 pad topical QIDACHS atorvastatin 10 mg PO BEDTIME blood sugar diagnostic (FreeStyle Lite Strips) Test BID or as directed. blood-glucose meter (FreeStyle Lite Meter kit) As Directed blood-glucose sensor (ShopnlistStyle Deja 3 Plus Sensor device) Use daily As directed to monitor glucose buspirone 10 mg PO DAILY carvedilol 12.5 mg PO BID cholecalciferol (vitamin D3) 25 mcg PO DAILY clotrimazole 1% 1 appl topical BID PRN ferrous sulfate 300 mg (5 mL) PO BIDWM fluticasone propionate 50 mcg/actuation 1 - 2 sprays intranasal DAILY PRN glucose (Dex4 Glucose) 16 grams (4 x 4 gram) PO Q15M PRN insulin glargine (Lantus Solostar U-100 Insulin) 40 units (0.4 mL) subcut DAILY lancets (FreeStyle Lancets) test blood glucose BID or as directed. omeprazole 20 mg PO DAILY@0630 peg 3350-electrolytes 236-22.74-6.74 -5.86 gram (Golytely) 240 mL PO Q10M pen needle, diabetic Use four times a day or as directed. sertraline 150 mg PO BEDTIME tirzepatide (Mounjaro) 5 mg (0.5 mL) subcut QWEEK trazodone 150 mg PO BEDTIME HPI HPI dm: Details: Patient is a 59-year-old male with a significant past medical history of hypertension, hyperlipidemia, type 2 diabetes, obesity, previous JENNIFER, anemia and GERD presenting today for consultation regarding diabetes. Endo: Dm-was diagnosed with diabetes around 2009. His last A1c was 12.9 and today is 6.1. He is currently on Lantus 45 units daily and was started on mounjaro 2.5 mg weekly at our last visit. He states that he is tolerating this very well and has noticed a little bit of appetite suppression with the Mounjaro. His is also very serious about him needing to lose weight and has been making him walk on the treadmill. He states that he was started on Lantus while hospitalized in August for an JENNIFER. He does not tolerate any doses of metformin. It causes severe GI upset. Actos causes lower leg swelling. Bydureon was ineffective (tried max dose without changes), trulicity was effective but higher doses caused nausea, ozempic he did not note any improvement of glucose readings and had more nausea than he did with trulicity. He has never had a CGM before but is interested in this. His states that it makes her nervous that he is taking so much insulin with out a CGM. She states a couple times his blood sugars have been low. The other day it was 55 and he was sweaty and pale looking. They corrected the blood sugar with orange juice. He states on average when he checks his blood sugars in the morning it is somewhere between 111 up to 160. cgm- 96% in range, 4% hyperglycemic. GMI 6.4% CV: Blood pressure today in the office is 136/78. He is currently managed with carvedilol 12.5 mg twice a day. Cholesterol is managed with atorvastatin 10 mg. No myalgias. Last LDL was 69. [facility] Medical History (Updated 11/26/24 @ 08:50 by Janette Sheikh PA-C) Anemia History of blood transfusion (09/20/24) History of colon cancer Infected cyst of skin Cellulitis of abdominal wall Eye inflammation Sleep apnea Ambulates with cane Back pain due to injury Morbid obesity Umbilical hernia Obesity (BMI 30-39.9) Dyslipidemia Diabetic nephropathy associated with type 2 diabetes mellitus Epidermal cyst HTN (hypertension) Diabetes type 2, controlled Surgical History History of colon resection S/P right colectomy H/O colonoscopy S/P appendectomy History of umbilical hernia repair (~01/08/22) Hx of removal of cyst Family History Father Diabetes Heart disease Mother Diabetes Heart disease Other No family history of cancer Social History Household Members: Spouse Housing: House Are you a primary respiratory care practitioner to a significant other at home: No Do you presently have visiting nurse or other home services: No Alcohol intake: never Comment: Ofirmev infusing at time of xfer Patient Tobacco Use Status: Never used Tobacco service: No Current occupational status: disabled Physical Exam Vital Signs: Last Vital Signs Pulse 70 11/26/24 08:43 BP 136/78 11/26/24 08:43 Pulse Ox 70 L 11/26/24 08:43 Oxygen Delivery Method Room Air 11/26/24 08:43 BMI result Body Mass Index 38.8 Const Orientation/consciousness: patient oriented x3 Neck Neck: Yes no lymphadenopathy Thyroid: Thyroid normal Carotids: no bruits Resp Auscultation: clear to auscultation bilaterally Cardio Rate: regular rate Rhythm: regular rhythm Heart sounds: S1 normal heart sound present and S2 normal heart sound present Peripheral pulses: dorsalis pedis present Neuro General: patient oriented x3, gait normal and no focal motor deficits Extrem Other: Monofilament sensation intact bilaterally. Vibratory sensation intact bilaterally. Skin intact. General: Yes normal to inspection Results AMB Hemoglobin A1c AMB Hemoglobin A1c 6.1 % Last Edit by LIZZIE Vieyra on 11/26/24 09:03 Results Reviewed Results Reviewed: Laboratory Last Values Glucose (Clinic) 103 mg/dL (60-115) 11/26/24 08:50 Laboratory Tests 04/24/24 10/05/24 10/29/24 09:45 13:07 09:33 Sodium 142 Potassium 3.8 Chloride 107 Carbon Dioxide 30 H Anion Gap 9 L BUN 10 Creatinine 0.95 Estimated GFR > 60 Glucose (Clinic) 223 H Random Glucose 169 H Total Bilirubin 0.3 AST 32 ALT 22 Urine Creatinine 177.83 Urine Microalbumin 161.0 Microalb/Creat Ratio 90.5 H Laboratory Tests 04/24/24 09:46 Triglycerides 99 Cholesterol 139 LDL Cholesterol, Calc 69 HDL Cholesterol 51 Assessment & Plan Assessment & Plan (1) Type 2 diabetes mellitus with hyperglycemia: Code(s): E11.65 - Type 2 diabetes mellitus with hyperglycemia Category: Medical Plan: Blood sugars have significantly improved. We will reduce the Lantus to 40 units . Increase Mounjaro as he is tolerating this well. Denies any hypoglycemic events. Reviewed signs and symptoms of hyper and hypoglycemia that would require emergent medical treatment. He will call me if he has any issues or low blood sugars and we did discuss reducing his Lantus. I will have him follow up in 2-3 months. Sooner if needed. Labs prior to appointment. (2) Diabetic nephropathy associated with type 2 diabetes mellitus: Code(s): E11.21 - Type 2 diabetes mellitus with diabetic nephropathy Category: Medical Plan: As above. We will check kidney function. Orders: Orders AMB Hemoglobin A1c Today E11.65 - Type 2 diabetes mellitus with hyperglycemia, Z13.9 - Encounter for screening, unspecified Medications: New tirzepatide (Mounjaro) 5 mg (0.5 mL) subcut QWEEK 2 mL 3RF Changed From insulin glargine (Lantus Solostar U-100 Insulin) 45 units (0.45 mL) subcut DAILY 15 mL 11RF To insulin glargine (Lantus Solostar U-100 Insulin) 40 units (0.4 mL) subcut DAILY 15 mL 11RF Discontinued tirzepatide (Mounjaro) for 4 weeks Discontinued Reason: Doctor's Order 2.5 mg (0.5 mL) subcut QWEEK 2 mL 1RF Coding Level of Care Code Est Pt Level 4 (64094) Complex EM visit Add On G2211 Diagnoses Type 2 diabetes mellitus with hyperglycemia E11.65 Diabetic nephropathy associated with type 2 diabetes mellitus E11.21
[2024-11-26 08:54] LABS: Glucose, Whole Blood 103 mg/dL (60-115)
--- OUTSIDE RECORDS SUMMARY | 2024-11-26 09:15 | XMS_ITS | Clinical Summary ---
Author Organization [facility] Facility Address [address] [place] [address], [place] [address] Care Team Providers Care Global Coordinator Name Role Phone Daniella Colon MD Primary Care Provider [phone] Social History Tobacco Use Types Packs/Day Years Used Date Smoking Tobacco: Never Assessed Sex and Gender Information Value Date Recorded Sex Assigned at Not on file Legal Sex Male 8:34 AM EDT Gender Identity Not on file Sexual Orientation Not on file Plan of Treatment Health Maintenance Due Date Last Done Comments Hepatitis B Vaccine (1 of 3 - 19+ 3-dose series) 08/17 Colorectal Cancer Screening: Annual FOBT 2014 Colorectal Cancer Screening: Colonoscopy 2014 Colorectal Cancer Screening: Sigmoidoscopy 2014 Pneumococcal Vaccine: 50+ Years (2 of 2 - PCV) 016 07/04/2015 Influenza Vaccine (Season Ended) 2025 05/07/20 09 Pneumococcal Vaccine: Peds ( 0 to 5 Years) and At-Risk Patients (6 to 49 Years) Discontinued 07/04/2015 [place] Care Teams Global Coordinator Relationship Specialty Start Date End Date Daniella Colon MD [address] [place] [phone] PCP - General Internal Medicine 06/07/22
--- OUTSIDE RECORDS SUMMARY | 2024-11-26 09:16 | XMS_ITS ---
Author Name Elisabeth Murcia NP Address [address] [place] [address] Phone [phone] [facility] Care Team Providers Care Solar Mechanical Engineer Name Role Phone Elisabeth Murcia Unavailable [phone] [facility] Unavailable [phone] Unavailable Unavailable Unavailable OMID OLVERA Unavailable [phone] TYREE PEACOCK Unavailable [phone] DOMINIQUE CHINO Unavailable [phone] Shyann Bermudez Unavailable [phone] Reason for Referral Not Available Allergies, adverse [...] mg Tab TAKE ONE AND ONE H [facility] (1.5) TABLETS BY MOUTH DAILY 2022-10-21 No [...] Date Resolved Date Other problems related to [facility] facilities and other health care Active 2024-05-14 [...] 95 for video, modifier 93 for phone [facility] ([place] 02/15/2023 Type 2 diabetes mellitus wit h other specified complicationHyperlipidemia, unspecifiedEssential (primary) hypertensionMalignant neoplasm of appendixMajor depressive disorder, recurrent, mildMigraine, unspecified, not intractable, without status migrainosusMorbid (severe) obesity due to excess caloriesBody mass index (BMI) 35.0-35.9, adult New patient, 30-44min 1 stable chronic or 2 minor; add modifier 95 for video, modifier 93 for phone [facility] ([place] 02/15/2023 New patient, 30-44min 1 stable chronic or 2 minor; add modifier 95 for video, modifier 93 for phone [facility], ([place] 02/15/2023 New patient, 30-44min 1 stable chronic or 2 minor; add modifier 95 for video, modifier 93 for phone [facility], ([place] 02/15/2023 New patient, 30-44min 1 stable chronic or 2 minor; add modifier 95 for video, modifier 93 for phone [facility] ([place] 02/15/2023 New patient, 30-44min 1 stable chronic or 2 minor; add modifier 95 for video, modifier 93 for phone [facility] ([place] 02/15/2023 New patient, 30-44min 1 stable chronic or 2 minor; add modifier 95 for video, modifier 93 for phone [facility] ([place] 02/15/2023 Estab. patient 30-39min; chronic exacerbation, 2 stable chronic or 1 acute illness add add modifier 95 for video, (do not use for phone, instead use 39626-40) [facility], ([place] 05/17/2024 Type 2 diabetes mellitus wit [...] (do not use for phone, instead use 73776-30) [facility], ([place] 05/17/2024 Estab. patient 30-39min; chronic exacerbation, 2 stable chronic or 1 acute illness add add modifier 95 for video, (do not use for phone, instead use 97408-42) [facility], ([place] 05/17/2024 Estab. patient 30-39min; chronic exacerbation, 2 stable chronic or 1 acute illness add add modifier 95 for video, (do not use for phone, instead use 11097-85) [facility], ([place] 05/17/2024 Estab. patient 30-39min; chronic exacerbation, 2 stable chronic or 1 acute illness add add modifier 95 for video, (do not use for phone, instead use 94367-20) [facility], ([place] 05/17/20[place] Estab. patient 30-39min; chronic exacerbation, 2 stable chronic or 1 acute illness add add modifier 95 for video, (do not use for phone, instead use 95628-60) [facility], [place] 05/17/20[place] Estab. patient 30-39min; chronic exacerbation, 2 stable chronic or 1 acute illness add add modifier 95 for video, (do not use for phone, instead use 43319-99) [facility], [place] 05/17/2024 Estab. patient 30-39min; chronic exacerbation, 2 stable chronic or 1 acute illness add add modifier 95 for video, (do not use for phone, instead use 24454-58) [facility], ([place] 05/17/2024 Estab. patient 30-39min; chronic exacerbation, 2 stable chronic or 1 acute illness add add modifier 95 for video, (do not use for phone, instead use 41734-77) [facility], ([place] 05/17/2024 Estab. patient 30-39min; chronic exacerbation, 2 stable chronic or 1 acute illness add add modifier 95 for video, (do not use for phone, instead use 27496-07) [facility] ([place] 05/17/2024 Vital [...] tive Time Current Smoking Status Never smoker 2024-11-13 4 Sex Male History of Procedures Procedures Service Procedure code Service date Servicing provider Phone# New patient, 30-44min 1 stable chronic or 2 minor; add modifier 95 for video, modifier 93 for phone [id number] 2023-02-15 No Data Available No Data Available [...] (do not use for phone, instead use 54781-04) 38160 2024-05-17 No Data Available No Data Availa [...] organ damage (headache, vision changes, chest pain)/ Newspaper Journalist on proper BP monitoring technique and reassess/ [...]
--- OUTSIDE RECORDS SUMMARY | 2024-11-26 09:16 | XMS_ITS | Clinical Summary ---
Author Organization [address] [place] [address] [place] [phone] Phone Care Team Providers Care Supervisor Cold Rolling Name Role Phone Shyann Bermudez Primary Care Provider Social History Tobacco Use Types Packs/Day Years Used Date Smoking Tobacco: Never Assessed Sex and Gender Information Value Date Recorded Sex Assigned at Not on file Legal Sex Male 5:04 AM EST Gender Identity Not on file Sexual Orientation Not on file Plan of Treatment Upcoming Encounters Date Type Department Care Team ([facility] Contact Info) Description 12/13/2024 3:15 PM EDT Consult Orthopedic Surgery - [place] [phone] [phone] Ja Reddy, DPM [address] [address] Health Maintenance Due Date Last Done Comments [...] Vaccines (1 of 2) 2015 COVID-19 Vaccine (2023-2 5 season) 2024 Cholesterol Screening (Lipid Panel) 10/24/2024 Colorectal Cancer Screening: Colonoscopy 10/24/2024 Depression Screening 10/24/2024 Diabetes: Annual Urine Albumin-Creatinine Ratio (uACR) 10/24/2024 Diabetes: Blood Sugar Contro l Test (HGBA1C) 10/24/2024 HIV Screening 10/24/2024 Hepatitis C Screening 10/24/2024 Social Influencers of Health Screening 10/24/2024 Influenza Vaccine (Season Ended) 2025 RSV Immunization Adult Patie nts (1 - 1-dose 75+ series) 2040 HIB [...] age to complete this topic Meningococcal B Vaccine Aged Out No l onger eligible based on patient's age to complete this topic RSV Immunization Patients Un gustavo 20 months Aged Out No longer eligible b ased on patient's age to complete this topic Varicella Vaccines Aged Out No longer eligible based on patient's age to complete this topic Insurance [facility] [employer] [id number] Care Teams Supervisor Cold Rolling Relationship Specialty Start Date End Date Shyann Bermudez PA [address] [place] [phone] PCP - General Physician Brick Or Block Maker 10/24/24
== END 2024-11-26 09:12 | disposition home or self-care (01) ==
LOC: HO.ENCR 08:42
PROVIDERS: PCP Internal Medicine; Visit Provider Physician Assistant
DX: Z13.9 Encounter for screening, unspecified (principal); E11.65 Type 2 diabetes mellitus with hyperglycemia; E11.21 Type 2 diabetes mellitus with diabetic nephropathy

== ENCOUNTER → 2024-11-26 08:41 | Outpatient (BNVA) | payer MEDICARE, SELFPAY | PROVIDERS: PCP Internal Medicine; Visit Provider Physician Assistant | DX: E11.65 Type 2 diabetes mellitus with hyperglycemia (principal); E11.21 Type 2 diabetes mellitus with diabetic nephropathy | CPT/HCPCS: 82947; 83036; 99212 ==

== ENCOUNTER 2024-12-19 12:24 | Outpatient (REF) | payer MEDICARE, SELFPAY ==
[2024-12-19 14:15] LABS: Hemoglobin 8.8 g/dl (14.0-18.0); Mean Corpuscular HGB Conc 28.4 g/dl (31.0-36.0); Mean Corpuscular Hemoglobin 22.6 pg (27.0-33.0); Mean Corpuscular Volume 79.7 fL (80.0-98.0); Mean Platelet Volume 11.8 fL (9.4-12.4); NRBC Pct Auto 0.4 /100WBC (0.0-0.2); Platelet Count 145 X10*3/uL (160-400); Red Blood Count 3.89 X10*6/uL (4.60-5.80); White Blood Count 5.3 X10*3/uL (4.8-10.8)
[2024-12-19 14:23] LABS: Anion Gap 12 (12-20); Blood Urea Nitrogen 12 mg/dL (9-16); Calcium 8.8 mg/dL (8.4-10.2); Carbon Dioxide 30 mmol/L (22-29); Chloride 108 mmol/L (96-108); Estimated Glomerular Filt Rate > 60; Glucose Random 149 mg/dL (60-115); Iron 15 mcg/dL (45-160); Percent Iron Saturation 5 % (15-50); Potassium 4.1 mmol/L (3.3-5.1); Sodium 146 mmol/L (135-145); Total Iron Binding Capacity 332 mcg/dL (228-428); Unsaturated Iron Binding 317 ug/dL
--- OUTSIDE RECORDS SUMMARY | 2024-12-19 14:38 | XMS_ITS ---
Author Name Elisabeth Murcia NP Address [address] [place] [address] Phone [phone] [facility] Care Team Providers Care Service Architect Name Role Phone Elisabeth Murcia Unavailable [phone] [facility] Unavailable [phone] Unavailable Unavailable Unavailable OMID OLVERA Unavailable [phone] TYREE PEACOCK Unavailable [phone] DOMINIQUE CHINO Unavailable [phone] Shyann Bermudez Unavailable [phone] Reason for Referral Not Available Allergies, adverse [...] Date Other problems related to [facility] facilities and other health care Active 2024-05-14 [...] 95 for video, modifier 93 for phone [facility] ([place]) 02/15/2023 Type 2 diabetes mellitus wit h other specified complicationHyperlipidemia, unspecifiedEssential (primary) hypertensionMalignant neoplasm of appendixMajor depressive disorder, recurrent, mildMigraine, unspecified, not intractable, without status migrainosusMorbid (severe) obesity due to excess caloriesBody mass index (BMI) 35.0-35.9, adult New patient, 30-44min 1 stable chronic or 2 minor; add modifier 95 for video, modifier 93 for phone [facility] ([place] 02/15/2023 New patient, 30-44min 1 stable chronic or 2 minor; add modifier 95 for video, modifier 93 for phone [facility], ([place]) 02/15/2023 New patient, 30-44min 1 stable chronic or 2 minor; add modifier 95 for video, modifier 93 for phone [facility], ([place] 02/15/2023 New patient, 30-44min 1 stable chronic or 2 minor; add modifier 95 for video, modifier 93 for phone [facility] [place] 02/15/2023 New patient, 30-44min 1 stable chronic or 2 minor; add modifier 95 for video, modifier 93 for phone [facility] [place] 02/15/2023 New patient, 30-44min 1 stable chronic or 2 minor; add modifier 95 for video, modifier 93 for phone [facility] [place] 02/15/2023 Estab. patient 30-39min; chronic exacerbation, 2 stable chronic or 1 acute illness add add modifier 95 for video, (do not use for phone, instead use 78580-46) [facility], ([place] 05/17/2024 Type 2 diabetes mellitus wit h [...] (do not use for phone, instead use 55045-73) [facility], ([place]) 05/17/2024 Estab. patient 30-39min; chronic exacerbation, 2 stable chronic or 1 acute illness add add modifier 95 for video, (do not use for phone, instead use 24349-28) [facility], ([place]) 05/17/2024 Estab. patient 30-39min; chronic exacerbation, 2 stable chronic or 1 acute illness add add modifier 95 for video, (do not use for phone, instead use 36055-90) [facility], ([place]) 05/17/2024 Estab. patient 30-39min; chronic exacerbation, 2 stable chronic or 1 acute illness add add modifier 95 for video, (do not use for phone, instead use 67338-48) [facility], ([place]) 05/17/2024 Estab. patient 30-39min; chronic exacerbation, 2 stable chronic or 1 acute illness add add modifier 95 for video, (do not use for phone, instead use 43357-80) [facility], ([place]) 05/17/2024 Estab. patient 30-39min; chronic exacerbation, 2 stable chronic or 1 acute illness add add modifier 95 for video, (do not use for phone, instead use 12489-36) [facility], ([place]) 05/17/2024 Estab. patient 30-39min; chronic exacerbation, 2 stable chronic or 1 acute illness add add modifier 95 for video, (do not use for phone, instead use 80189-11) [facility], ([place] 05/17/2024 Estab. patient 30-39min; chronic exacerbation, 2 stable chronic or 1 acute illness add add modifier 95 for video, (do not use for phone, instead use 56871-97) [facility], ([place] 05/17/2024 Estab. patient 30-39min; chronic exacerbation, 2 stable chronic or 1 acute illness add add modifier 95 for video, (do not use for phone, instead use 88025-89) [facility] ([place]) 05/17/2024 Vital Signs Date of Collection Vitals [...] 95 for video, modifier 93 for phone [id number] 2023-02-15 No Data Available No Data Available [...] (do not use for phone, instead use 02474-77) [id number] 2024-05-17 No Data Available No Data Availa [...] organ damage (headache, vision changes, chest pain)/ Recreation Director on proper BP monitoring technique and reassess/ [...]
--- OUTSIDE RECORDS SUMMARY | 2024-12-19 14:38 | XMS_ITS | Clinical Summary ---
Author Organization [facility] Address [address] [place] [address], [place] [address] Care Team Providers Care Ticket Maker Name Role Phone Daniella Colon MD Primary [...] to 49 Years) Discontinued 07/04/2015 [place] Medicaid [place] Care Teams Ticket Maker Relationship Specialty Start Date End Date Daniella Colon MD [address] [place] [phone] PCP - General Internal Medicine 06/07/22
--- OUTSIDE RECORDS SUMMARY | 2024-12-19 14:38 | XMS_ITS | Clinical Summary ---
Author Organization [address] [place] [address] [place] [phone] Phone Care Team Providers Care Prop Setter Name Role Phone Shyann Bermudez Primary Care Provider Allergies Active Allergy Reactions Criticality Noted Date Comments Lisinopril 12/13/2024 Encounters Date Type Department Care Team Description 12/13/2024 3:15 PM EDT Consult Orthopedic Surgery [facility] [address] [phone] Ja Reddy DPM Diabetic mononeuropathy simplex (CMS/HCC V24, CMS/HCC V28) (Primary Dx); Type 2 diabetes mellitus with diabetic polyneuropathy (CMS/HCC V24, CMS/HCC V28); Type II diabetes mellitus with peripheral circulatory disorder (CMS/HCC V24, CMS/HCC V28); Dermatophytosis of nail; Pain in toe of right foot; Pain in toe of left foot from Last 3 Months Social History Tobacco Use Types Packs/Day Years Used Date Smoking Tobacco: Never Assessed Sex and Gender Information Value Date Recorded Sex Assigned at Not on file Legal Sex Male 5:04 AM EST Gender Identity Not on file Sexual Orientation Not on file Last Filed Vital Signs Vital Sign Reading Time Taken Comments Blood Pressure - - Pulse - - Temperature - - Respiratory Rate - - Oxygen Saturation - - Inhaled Oxygen Concentration - - Weight 122 kg (270 lb) 12/13/2024 3:50 PM EDT Height 177.8 cm (5' 10 ) 12/13/2024 3:50 PM EDT Body Mass Index 38.74 12/13/2024 3:50 PM EDT Plan of Treatment Upcoming Encounters Date Type Department Care Team ([facility] st Contact Info) Description 04/04/2025 3:00 PM EDT Office Visit Orthopedic Surgery - [place] 250 [address] [facility] [address] [place] [phone] Ja Reddy, DPM 175 [facility] [address] [place] [address] Health Maintenance Due Date Last Done Comments [...] patient's age to complete this topic Insurance [address] [place] [address] Care Teams Prop Setter Relationship Specialty Start Date End Date Shyann Bermudez PA [address] [place] [phone] PCP - General Physician Stranding Machine Operator Helper 10/24/24
[2024-12-19 14:41] LABS: Ferritin 6 ng/mL (20-250)
== END 2024-12-19 12:25 | disposition home or self-care (01) ==
LOC: HO.LAB 12:24
PROVIDERS: Family Medicine; PCP Internal Medicine; Visit Provider Internal Medicine
DX: D50.9 Iron deficiency anemia, unspecified (principal); N17.9 Acute kidney failure, unspecified; D64.9 Anemia, unspecified; C18.1 Malignant neoplasm of appendix
CPT/HCPCS: 36415; 80048; 82728; 83540; 85027; 99212

== ENCOUNTER 2024-12-19 12:24 | Outpatient (AMB) | payer MEDICARE, SELFPAY ==
--- NOTE | 2024-12-19 12:27 | MHC.OFFVIS ---
Vital Signs 12/19/24 12:30 Height 5 ft 10 in Weight 268 lb 15.423 oz BMI 38.6 BP 145/74 H Blood Pressure Location Lt brachial Position Sitting Pulse 79 Intake Visit Reasons: Follow Up Labs Intake Note: Titus presents in the office as a follow up for his blood work. CC: Here for results - no concerns today. 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 Patient was seen earlier this month 04/16: Briefly, patient was seen in the emergency room last month for abdominal pain ongoing for 2 days primarily in the right lower quadrant associated with nausea and vomiting. CT abdomen and pelvis without contrast showed enlarged and dilated appendix with surrounding fatty stranding. However, the appearance was atypical, and based on imaging, mucocele was suspected. Patient was seen by General surgery, Dr. Alfonso. Underwent laparoscopic appendectomy on 03/28. Intraoperatively, he was found to have perforated necrotic appendicitis with free fluid in the abdomen along with a right pericolic abscess. This necessitated MARY drain placement as well. That has since been removed. Path report was positive for appendiceal adenocarcinoma, see details below and results section. Patient tells me that he had a colonoscopy in 2009 and [facility] that was done around the time he had a gluteal abscess. He is unsure of the details of the colonoscopy, in fact did not recall this colonoscopy, until he was reminded by his primary care provider at a recent visit. In terms of his symptoms, he denies any abdominal pain, nausea, vomiting, changes in appetite, unintentional weight loss. He does endorse frequent bowel movements, especially after meals. Denies any blood in stool. Labs from the admission were personally reviewed and were notable for mild anemia. In addition, he was also noted to have low platelet count. Patient does not smoke. Drinks occasionally. There is no family history of colon cancer or colon polyps that he knows of. No family history. It of colitis or Crohn's disease. 05/12/22: In the interim has undergone a complete colonoscopy that showed a large polyp overlying the appendiceal orifice. Biopsies show LGD adenoma. The large polyp was not removed as I did not want to risk perforation stacey since the patient is planned for a R hemicolectomy regardless. In addition, he also had an area of irregular nodular mucosa in ascending colon - bx show hyperplastic changes. Miniscule TA in cecum. No synchronous lesions were seen on this exam. Patient reports no abdominal pain, nausea, vomiting, changes in appetite. Bowel movements are regular. He has been seen by Dr Duran and has been scheduled for surgery next month. 06/01/22: Underwent R hemicolectomy with ileocolonic anastomosis (Dr Duran). Adenoca invading the serosa with 4/14 + nodes. Had recurrent admissions after this for intra-abdominal infections. 08/02/23: [place] (Dr Sanchez): No polyps. Internal hemorrhoids. Mild erythema at anastomosis. 09/20/23: He is here for follow-up after his colonoscopy. Has also been seen by Dr. Murguia and completed his adjuvant chemotherapy in March 2023. CT chest/abd/pel from May without any disease recurrence. Has a rpeat follow up with her next month. Results of colo reviewed and reassuring. 04/09/24: Here for rectal bleeding that started a few months ago. Reports one episode in summer around February while he was on a cruise. Reports lasted for almost a week with rectal bleeding noted with each BM despite having a normal/soft BM. This was not assoc with any abd pain, N,V. Does report occ diarrhea. Has hx of appendiceal adenoca s/p hemicolectomy. Saw his oncologist and reported above who got blood work - normal, and referred him to us for further evaluation. 06/14/24 1. Normal colon, ileocolonic anastomosis, and ileal mucosa 2. Internal and external hemorrhoids Recommendations: - Follow path results. - Intermittent rectal bleeding was likely from hemorrhoids, which has since resolved. - Repeat colonoscopy in 3 years for adenoca surveillance. Path: A. Labeled biopsy at anastomosis : Ileal and colonic mucosa with minor crypt distortion, otherwise no specific change; no evidence of malignancy. B. Colon, left, biopsy: Colonic mucosa with lymphoid aggregate and minor crypt distortion, otherwise no specific change; no evidence of malignancy. 06/29/24: Pt reassured of th results. No ongoing GI concerns at this time. Has not any recurrence of bleeding. Starting to exercise and lift weights. Cautioned re safe lifting and avoiding prolonged increased intra-abd pressure so he doesnt aggravate hemorrhoids. Also has ventral hernia. 09/19/24: Booked as urgent televisit. Was seen in hospital by Dr Ventura for acute anemia. EGD 09/07/24 with mild esophagitis and gastritis. Bx neg for H Pylori and celiac. Outpatient repeat H/H unchanged from 2 weeks ago despite PO iron supplementation indicating ongoing GI losses. CEA checked by Onc is also higher than expected. Pt himself without any abd pain, N,V, D. No red blood or melena reported. 10/17/24: 1. Poor prep in left colon 2. Normal ileocolonic anastomosis, and ileal mucosa 2. Internal and external hemorrhoids 12/19/24: Reviewed with the patient that while the left side of the colon was not completely prep, no evidence of recurrent cancer on the right side especially at the site of anastomosis. MRI results were also reassuring. At this time, will proceed with small-bowel evaluation with CT enterography as well as capsule endoscopy, as long as no stricture/stenosis noted on CTE. We will also check for updated iron studies in case he needs IV Venofer. Patient otherwise does not have any abdominal pain, melena, hematochezia. [facility] Medical History Anemia History of blood transfusion (09/20/24) History of colon cancer Infected cyst of skin Cellulitis of abdominal wall Eye inflammation Sleep apnea Ambulates with cane Back pain due to injury Morbid obesity Umbilical hernia Obesity (BMI 30-39.9) Dyslipidemia Diabetic nephropathy associated with type 2 diabetes mellitus Epidermal cyst HTN (hypertension) Diabetes type 2, controlled Surgical History History of colon resection S/P right colectomy H/O colonoscopy S/P appendectomy History of umbilical hernia repair (~01/08/22) Hx of removal of cyst Family History Father Diabetes Heart disease Mother Diabetes Heart disease Other No family history of cancer Social History Household Members: Spouse Housing: House Are you a primary resident care assistant to a significant other at home: No Do you presently have visiting nurse or other home services: No Alcohol intake: never Comment: Ofirmev infusing at time of xfer Patient Tobacco Use Status: Never used Tobacco service: No Current occupational status: disabled Review of Systems Const All systems reviewed & are unremarkable except as noted in HPI and below Physical Exam Vital Signs: Last Vital Signs Pulse 79 12/19/24 12:30 BP 145/74 H 12/19/24 12:30 BMI result Body Mass Index 38.6 No apparent distress Nonicteric Abdomen soft, nondistended Alert and oriented x3, normal gait Assessment & Plan Assessment & Plan (1) Primary appendiceal adenocarcinoma: Code(s): C18.1 - Malignant neoplasm of appendix Category: Medical (2) Iron deficiency anemia: Code(s): D50.9 - Iron deficiency anemia, unspecified Category: Medical Plan As above, has iron deficiency anemia with concern for obscure GI bleeding. Will proceed with mid got evaluation. Plan: -CT enterography -capsule endoscopy depending on results of CT enterography -updated CBC and iron profile ordered. Will arrange for IV Venofer if has low-level Follow up after VCE Orders: Orders CT enterography 12/19/24 D50.9 - Iron deficiency anemia, unspecified, C18.1 - Malignant neoplasm of appendix IRON PROFILE 12/19/24 D50.9 - Iron deficiency anemia, unspecified Ferritin 12/19/24 D50. - Iron deficiency anemia, unspecified Complete Blood Count no Diff 12/19/24 D50.9 - Iron deficiency anemia, unspecified Basic Metabolic Panel 12/19/24 D50.9 - Iron deficiency anemia, unspecified Coding Level of Care Code Est Pt Level 4 (25403) Diagnoses Primary appendiceal adenocarcinoma C18.1 Iron deficiency anemia D50.9
[2024-12-19 12:30] VITALS: BP 145/74; PULSE 79; BMI 38.6
--- OUTSIDE RECORDS SUMMARY | 2024-12-19 13:37 | XMS_ITS | Clinical Summary ---
Author Organization [facility] Facility Address [address] [place] [address], [place] [address] Care Team Providers Care Bridge Manager Name Role Phone Daniella Colon MD Primary Care Provider [phone] Social History Tobacco Use Types Packs/Day Years [...] to 49 Years) Discontinued 07/04/2015 [place] Medicaid [place] Care Teams Bridge Manager Relationship Specialty Start Date End Date Daniella Colon MD [address] [place] [phone] PCP - General Internal Medicine 06/07/22
--- OUTSIDE RECORDS SUMMARY | 2024-12-19 13:37 | XMS_ITS ---
Author Name Elisabeth Murcia NP Address [address] [place] [address] Phone [phone] [facility] Care Team Providers Care Wage And Hour Investigator Name Role Phone Elisabeth Murcia Unavailable [phone] [facility] Unavailable Unavailable Unavailable Unavailable OMID OLVERA Unavailable [phone] TYREE PEACOCK Unavailable [phone] DOMINIQUE CHINO Unavailable [phone] Shyann Bermudez Unavailable [phone] Reason for Referral Not Available Allergies, adverse [...] Date Resolved Date Other problems related to [facility] facilities and other health [...] 95 for video, modifier 93 for phone [facility] ([place] 02/15/2023 Type 2 diabetes mellitus wit h other specified complicationHyperlipidemia, unspecifiedEssential (primary) hypertensionMalignant neoplasm of appendixMajor depressive disorder, recurrent, mildMigraine, unspecified, not intractable, without status migrainosusMorbid (severe) obesity due to excess caloriesBody mass index (BMI) 35.0-35.9, adult New patient, 30-44min 1 stable chronic or 2 minor; add modifier 95 for video, modifier 93 for phone [facility] ([place] 02/15/2023 New patient, 30-44min 1 stable chronic or 2 minor; add modifier 95 for video, modifier 93 for phone [facility], [place] 02/15/2023 New patient, 30-44min 1 stable chronic or 2 minor; add modifier 95 for video, modifier 93 for phone [facility], [place] 02/15/2023 New patient, 30-44min 1 stable chronic or 2 minor; add modifier 95 for video, modifier 93 for phone [facility] [place] 02/15/2023 New patient, 30-44min 1 stable chronic or 2 minor; add modifier 95 for video, modifier 93 for phone [facility] [place] 02/15/2023 New patient, 30-44min 1 stable chronic or 2 minor; add modifier 95 for video, modifier 93 for phone [facility] [place] 02/15/2023 Estab. patient 30-39min; chronic exacerbation, 2 stable chronic or 1 acute illness add add modifier 95 for video, (do not use for phone, instead use 01702-38) [facility], ([place]) 05/17/2024 Type 2 diabetes mellitus wit h [...] (do not use for phone, instead use 15402-36) [facility], ([place]) 05/17/2024 Estab. patient 30-39min; chronic exacerbation, 2 stable chronic or 1 acute illness add add modifier 95 for video, (do not use for phone, instead use 21508-51) [facility], ([place] 05/17/2024 Estab. patient 30-39min; chronic exacerbation, 2 stable chronic or 1 acute illness add add modifier 95 for video, (do not use for phone, instead use 41375-97) [facility], ([place] 05/17/2024 Estab. patient 30-39min; chronic exacerbation, 2 stable chronic or 1 acute illness add add modifier 95 for video, (do not use for phone, instead use 34533-52) [facility], ([place]) 05/17/2024 Estab. patient 30-39min; chronic exacerbation, 2 stable chronic or 1 acute illness add add modifier 95 for video, (do not use for phone, instead use 86534-68) [facility], ([place]) 05/17/2024 Estab. patient 30-39min; chronic exacerbation, 2 stable chronic or 1 acute illness add add modifier 95 for video, (do not use for phone, instead use 35104-97) [facility], ([place]) 05/17/2024 Estab. patient 30-39min; chronic exacerbation, 2 stable chronic or 1 acute illness add add modifier 95 for video, (do not use for phone, instead use 41402-22) [facility], ([place] 05/17/2024 Estab. patient 30-39min; chronic exacerbation, 2 stable chronic or 1 acute illness add add modifier 95 for video, (do not use for phone, instead use 14809-05) [facility], ([place] 05/17/2024 Estab. patient 30-39min; chronic exacerbation, 2 stable chronic or 1 acute illness add add modifier 95 for video, (do not use for phone, instead use 74962-93) [facility] ([place]) 05/17/2024 Vital Signs Date of Collection Vitals [...] tive Time Current Smoking Status Never smoker 7 Sex Male History of Procedures Procedures Service Procedure code Service date Servicing provider Phone# New patient, 30-44min 1 stable chronic or 2 minor; add modifier 95 for video, modifier 93 for phone [id number] 2023-02-15 No Data Available No Data Available [...] (do not use for phone, instead use 68827-17) [id number] 2024-05-17 No Data Available No Data Availa [...] organ damage (headache, vision changes, chest pain)/ Photographic Lithographer on proper BP monitoring technique and reassess/ [...]
== END 2024-12-19 13:12 | disposition home or self-care (01) ==
LOC: HO.HGI 12:25
PROVIDERS: PCP Internal Medicine; Visit Provider Internal Medicine
DX: C18.1 Malignant neoplasm of appendix (principal); D50.9 Iron deficiency anemia, unspecified
CPT/HCPCS: 99214

== ENCOUNTER 2025-01-03 13:55 | Outpatient (REF) | payer MEDICARE, SELFPAY ==
--- NOTE | ~2025-01-03 | CT_ITS ---
CLINICAL HISTORY: D50.9 - Iron deficiency anemia, unspecified CT abdomen and pelvis with contrast Comparison: MR - MR ABDOMEN WO/W CON - 10/21/24 15:[address]/NH/SR - CT ABDOMEN PELVIS W IV CON - 07/16/24 09:12 EST Findings: The visualized portions of the lungs are normal in appearance. 7 mm hypodense lesion in the liver dome is likely to be a cyst. No intrahepatic or extrahepatic ductal dilatation is seen. The hepatic and portal veins are patent. No calcified gallstones in the gallbladder. Pancreas, spleen and adrenals are normal in appearance. No suspicious focal lesion of the kidneys. No hydronephrosis or calculi. The abdominal aorta demonstrates no evidence of aneurysmal dilatation or dissection. The colon is without wall thickening or inflammatory change. Colonic diverticulosis. Right hemicolectomy. No evidence of bowel obstruction. Small bowel is unremarkable. The prostate gland is enlarged with calcification. Bladder is decompressed. No intraperitoneal free air or fluid is visualized. No pathologic lymphadenopathy is seen. Fat containing ventral hernia. There are no osseous or soft tissue abnormalities. IMPRESSION: No acute findings. Chronic findings as above. This document has been electronically signed by: Talita Ricketts MD on 01/03/2025 16:56:41
--- OUTSIDE RECORDS SUMMARY | 2025-01-03 14:01 | XMS_ITS | Clinical Summary ---
Author Organization [facility] Facility Address [address] [place] [address], [place] [address] Care Team Providers Care Wafer Polishing Lead Worker Name Role Phone Daniella Colon MD Primary [...] to 49 Years) Discontinued 07/04/2015 Insurance [place] Care Teams Wafer Polishing Lead Worker Relationship Specialty Start Date End Date Daniella Colon MD [address] [place] [phone] PCP - General Internal Medicine 06/07/22
[2025-01-03] MEDS: iohexoL 350 MG/ML 100 ML INFUS..BTL IV (16:01)
[2025-01-03] MEDS: Sorbitol/Mannit/Xanth Imaging 500 ML LIQUID 1500 ML PO (16:03)
== END 2025-01-03 13:56 | disposition home or self-care (01) ==
LOC: HO.CT 13:55
PROVIDERS: PCP Internal Medicine; Visit Provider Internal Medicine
DX: D50.9 Iron deficiency anemia, unspecified (principal); C18.1 Malignant neoplasm of appendix
CPT/HCPCS: 74177; Q9967

== ENCOUNTER → 2025-01-03 13:57 | Outpatient (BNV) | payer MEDICARE, SELFPAY | PROVIDERS: PCP Internal Medicine; Visit Provider Nuclear Medicine | DX: D50.9 Iron deficiency anemia, unspecified (principal) | CPT/HCPCS: 74177 ==

== ENCOUNTER 2025-01-17 08:03 | Outpatient (REF) | payer MEDICARE, SELFPAY ==
--- NOTE | ~2025-01-17 | XR_ITS ---
EXAMINATION: XR ABDOMEN 1 VIEW (KUB) HISTORY: T18.9XXA - Foreign body of alimentary tract, part unspecified, initial COMPARISON: Comparison is made with the prior examination dated 06/06/2022. FINDINGS: Three supine views of the abdomen are submitted. The bowel gas pattern is unremarkable, without evidence of mechanical obstruction. A radiopaque capsule is seen in the left upper quadrant, likely in the stomach. There are there are surgical clips in the right upper quadrant. There are no abnormal soft tissue masses. The bones are intact. XR/XR KUB IMPRESSION: Radiopaque capsule in the left upper quadrant, likely in the stomach. Electronically signed by: Myrno Nicholson MD 01/17/2025 03:28 PM EDT
--- OUTSIDE RECORDS SUMMARY | 2025-01-17 08:09 | XMS_ITS | Clinical Summary ---
Author Organization [facility] Facility Address [address] [place] [address], [place] [address] Care Team Providers Care Embedded Systems Software Developer Name Role Phone Daniella Colon MD Primary Care Provider [phone] Social History Tobacco Use Types Packs/Day Years [...] to 49 Years) Discontinued 07/04/2015 Insurance Medicaid [place] Care Teams Embedded Systems Software Developer Relationship Specialty Start Date End Date Daniella Colon MD [address] [place] [phone] PCP - General Internal Medicine 06/07/22
== END 2025-01-17 08:04 | disposition home or self-care (01) ==
LOC: HO.XRAY 08:03
PROVIDERS: PCP Internal Medicine; Visit Provider Internal Medicine
DX: T18.9XXA Foreign body of alimentary tract, part unspecified, initial encounter (principal)
CPT/HCPCS: 74018

== ENCOUNTER → 2025-01-17 08:07 | Outpatient (BNV) | payer MEDICARE, SELFPAY | PROVIDERS: PCP Internal Medicine; Visit Provider Radiology Diagnostic Radiology | DX: T18.9XXA Foreign body of alimentary tract, part unspecified, initial encounter (principal) | CPT/HCPCS: 74018 ==

== ENCOUNTER 2025-01-18 07:52 | Outpatient (REF) | payer MEDICARE, SELFPAY ==
--- NOTE | ~2025-01-18 | XR_ITS ---
EXAMINATION: XR ABDOMEN 1 VIEW (KUB) HISTORY: T18.9XXA - Foreign body of alimentary tract, part unspecified, initial... COMPARISON: Comparison is made with the prior examination dated 01/17/2025. FINDINGS: Three supine views of the abdomen are submitted. The bowel gas pattern is unremarkable, without evidence of mechanical obstruction. The previously seen radiopaque capsule is no longer identified. There are surgical clips in the right upper quadrant. No abnormal calcifications are identified. There are no abnormal soft tissue masses. There is degenerative disc disease of the spine. XR/XR KUB IMPRESSION: The previously seen radiopaque capsule is no longer identified. Electronically signed by: Myron Nicholson MD 01/18/2025 08:44 AM EDT
--- OUTSIDE RECORDS SUMMARY | 2025-01-18 07:55 | XMS_ITS | Clinical Summary ---
Author Organization [facility] Facility Address [address] [place] [address], [place] [address] Care Team Providers Care Bottle Capping Machine Operator Name Role Phone Daniella Colon [...] to 49 Years) Discontinued 07/04/2015 Insurance Medicaid [place] Care Teams Bottle Capping Machine Operator Relationship Specialty Start Date End Date Daniella Colon MD [address] [place] [phone] PCP - General Internal Medicine 06/07/22
== END 2025-01-18 07:53 | disposition home or self-care (01) ==
LOC: HO.XRAY 07:52
PROVIDERS: PCP Internal Medicine; Visit Provider Internal Medicine
DX: T18.9XXA Foreign body of alimentary tract, part unspecified, initial encounter (principal)
CPT/HCPCS: 74018

== ENCOUNTER → 2025-01-18 07:56 | Outpatient (BNV) | payer MEDICARE, SELFPAY | PROVIDERS: PCP Internal Medicine; Visit Provider Radiology Diagnostic Radiology | DX: T18.9XXA Foreign body of alimentary tract, part unspecified, initial encounter (principal) | CPT/HCPCS: 74018 ==

== ENCOUNTER → 2025-01-22 07:51 | Outpatient (BNVA) | payer MEDICARE, SELFPAY ==
--- NOTE | 2025-01-22 13:02 | W.PM.OPN ---
Operative Note Operative Note Date of Service: 05/02/25 Narrative: VIDEO CAPSULE ENDOSCOPY 01/22/25: Ordering provider: Jil Robles MD Reading physician: Jil Robles MD revised 05/02/25 (see original scanned report) Findings: 1. 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 2. One small non-bleeding AVM noted in mid small bowel 3. A pedunculated polyp/mass in distal small bowel noted with overlying ulceration but no active bleeding seen from the polyp itself. 4. There was however fresh blood distal to it visualized 6 minutes later which appears to be coming from an ulcer (see thumbnail) Plan: - Based on retrospective review of CTE, bleeding could be originating from the site of surgical clip - see image. - The bleeding was not visualized on repeat colonoscopy on retrograde intubation of small bowel. - An urgent PET scan has been ordered for evaluation in the context of rising tumor markers. - Depending on results may need surgical revision + removal of small bowel polyp vs DBE
== END ==
PROVIDERS: PCP Internal Medicine; Visit Provider Internal Medicine

== ENCOUNTER 2025-02-12 07:30 | Outpatient (RCR) | payer MEDICARE, SELFPAY ==
[2025-01-23 08:33] VITALS: BP 138/78; PULSE 74; RESP 16; TEMP 36.6; O2SAT 94
[2025-01-23] MEDS: 0.9 % Sodium Chloride Flush 10 ML SYRINGE 5 ML IVFLUSH (08:55)
[2025-01-24 13:34] VITALS: BP 125/71; PULSE 72; RESP 18; TEMP 37; O2SAT 96
[2025-01-30 11:06] VITALS: BP 147/75; PULSE 83; RESP 16; TEMP 36.7; O2SAT 95
[2025-01-31 08:05] VITALS: BP 155/82; PULSE 71; RESP 16; TEMP 36.6; O2SAT 96
[2025-02-04 10:57] VITALS: BP 132/70; PULSE 78; RESP 20; TEMP 36.6; O2SAT 94
[2025-02-04 11:19] LABS: Hematocrit 31.8 % (42.0-52.0); Hemoglobin 8.9 g/dl (14.0-18.0); Mean Corpuscular HGB Conc 28.0 g/dl (31.0-36.0); Mean Corpuscular Hemoglobin 21.5 pg (27.0-33.0); Mean Corpuscular Volume 77.0 fL (80.0-98.0); NRBC Abs Auto 0.000 X10*3/uL (0.0-0.012); NRBC Pct Auto 0.0 /100WBC (0.0-0.2); Platelet Count 162 X10*3/uL (160-400); Red Blood Count 4.13 X10*6/uL (4.60-5.80); White Blood Count 4.4 X10*3/uL (4.8-10.8)
[2025-02-04 11:52] LABS: Ferritin 94 ng/mL (20-250)
[2025-02-05 08:51] VITALS: BP 166/88; PULSE 86; RESP 18; TEMP 36.6
[2025-02-11 08:06] VITALS: BP 156/87; PULSE 76; RESP 18; TEMP 36.5; O2SAT 95
[2025-02-12 07:23] VITALS: BP 160/75; PULSE 78; RESP 16; TEMP 36.6; O2SAT 98
== END 2025-02-12 08:30 | disposition home or self-care (01) ==
LOC: HO.INF 07:30
PROVIDERS: Visit Provider Internal Medicine
DX: D64.9 Anemia, unspecified (principal)
CPT/HCPCS: 36415; 82728; 85027; 96365; 96374; J1756

== ENCOUNTER 2025-02-20 10:45 | Outpatient (REF) | payer MEDICARE, SELFPAY ==
[2025-02-20 11:43] LABS: Hematocrit 39.5 % (42.0-52.0); Hemoglobin 11.3 g/dl (14.0-18.0); Mean Corpuscular HGB Conc 28.6 g/dl (31.0-36.0); Mean Corpuscular Hemoglobin 23.3 pg (27.0-33.0); Mean Corpuscular Volume 81.3 fL (80.0-98.0); NRBC Abs Auto 0.000 X10*3/uL (0.0-0.012); NRBC Pct Auto 0.0 /100WBC (0.0-0.2); Platelet Count 145 X10*3/uL (160-400); Red Blood Count 4.86 X10*6/uL (4.60-5.80); White Blood Count 4.7 X10*3/uL (4.8-10.8)
--- OUTSIDE RECORDS SUMMARY | 2025-02-20 11:51 | XMS_ITS | Clinical Summary ---
Author Organization [facility] Facility Address [address] [place] [address], [place] [address] Care Team Providers Care Services Host Name Role Phone Daniella Colon MD Primary [...] 2 - PCV) 016 07/04/2015 Influenza Vaccine (#1) 2025 05/07/2009 Pneumococcal Vaccine: Peds ( 0 to 5 Years) and At-Risk Patients (6 to 49 Years) Discontinued 07/04/2015 [place] Medicaid [place] Care Teams Services Host Relationship Specialty Start Date End Date Daniella Colon MD [address] [place] [address] [address] [place] [phone] PCP - General Internal Medicine 06/07/22
--- OUTSIDE RECORDS SUMMARY | 2025-02-20 11:51 | XMS_ITS ---
Author Name Elisabeth Murcia NP Address [address] [place] [address] Phone [phone] [facility] Care Team Providers Care Cnc Machinist Name Role Phone Elisabeth Murcia Unavailable [phone] [facility] Unavailable Unavailable Unavailable Unavailable OMID OLVERA Unavailable [phone] TYREE PEACOCK Unavailable [phone] DOMINIQUE CHINO Unavailable [phone] Shyann Bermudez Unavailable [phone] Reason for Referral Not Available Allergies, adverse [...] List Problem Status Onset Date Resolved Date Synopsis Other problems related to medical facilities and other health care Active 2024-05-14 N/A HYPERTENSIO N CONTINGENCY PLANMember to call for the following symptoms: BP >180/100 / Chest pain / HeadachePlanned intervention: Assess for signs of end organ damage (headache, vision changes, chest pain)/ Washing Machine Installer on proper BP monitoring technique and reassess/ Increase current medication dose:/ Add olmesartan 20mg daily/ Encourage low sodium diet/ Discuss breathing exercises/ Encourage medication adherence HTN (hypertension) Active 2023-02-15 N/A RX: Ca rvedilol, HCTZEncourage low sodium diet. Encouraged daily blood pressure checks and tracking. Instructed patient to notify CB or PCP if blood pressure >140/90 or <90/50.Continue to follow up with PCP. Insomnia, KYM (obstructive sleep apnea) Active 2024-05-14 N/A RX: ZolpidemPrac oneil good sleep hygieneContinue to follow up with PCP. Migraine Active 2023-02-15 N/A RX: Topiramate Continue to follow up with PCP. MDD (major depressive disorder), recurrent episode Active 2023-02-15 N/A RX: Sertraline, Buspirone, TrazadoneNotify provider with any changes in behavior, difficulty sleeping, or new/worsening depressive symptoms.Continue to follow up with Psychiatry. Type 2 diabetes mellitus with hyperlipidemia Active 2023-02-15 N/A DM: Bydureon HLD: Atorvastatin Educated on the importance of daily FSBS checks. Advised to report symptoms of hyperglycemia to CB or PCP. Advised on diabetic diet including avoiding foods with high sugar content, high carbohydrates or starchy foods like rice, potatoes. Advised to eat smaller portions with healthy snacks.Continue to follow up with PCP. 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 Morbid obesity,Body mass index [BMI] 38.0-38.9, adult Active 2023-02-15 N/A BMI 38.45 with D M and HTN, healthy lifestyle encouraged. Encounters Encounters Type Facility Date of Service Diagnosis/Co mplaint New patient, 30-44min 1 stable chronic or 2 minor; add modifier 95 for video, modifier 93 for phone [facility]/2023 Type 2 diabetes mellitus wit h other specified complicationHyperlipidemia, unspecifiedEssential (primary) hypertensionMalignant neoplasm of appendixMajor depressive disorder, recurrent, mildMigraine, unspecified, not intractable, without status migrainosusMorbid (severe) obesity due to excess caloriesBody mass index (BMI) 35.0-35.9, adult New patient, 30-44min 1 stable chronic or 2 minor; add modifier 95 for video, modifier 93 for phone [facility] 02/[place]/2023 New patient, 30-44min 1 stable chronic or 2 minor; add modifier 95 for video, modifier 93 for phone [facility] 02/[place]/2023 New patient, 30-44min 1 stable chronic or 2 minor; add modifier 95 for video, modifier 93 for phone [facility] 02/[place]/2023 New patient, 30-44min 1 stable chronic or 2 minor; add modifier 95 for video, modifier 93 for phone [facility] ([place]) 02/15/2023 New patient, 30-44min 1 stable chronic or 2 minor; add modifier 95 for video, modifier 93 for phone [facility] 02/[place]/2023 New patient, 30-44min 1 stable chronic or 2 minor; add modifier 95 for video, modifier 93 for phone [facility] 02/[place]/2023 Estab. patient 30-39min; chronic exacerbation, 2 stable chronic or 1 acute illness add add modifier 95 for video, (do not use for phone, instead use 23584-84) [facility] 05[place]17/2024 Type 2 diabetes mellitus wit h [...] (do not use for phone, instead use 97060-71) [facility]17/[place] Estab. patient 30-39min; chronic exacerbation, 2 stable chronic or 1 acute illness add add modifier 95 for video, (do not use for phone, instead use 79313-27) [facility]17/[place] Estab. patient 30-39min; chronic exacerbation, 2 stable chronic or 1 acute illness add add modifier 95 for video, (do not use for phone, instead use 53534-11) [facility]17/20[place] Estab. patient 30-39min; chronic exacerbation, 2 stable chronic or 1 acute illness add add modifier 95 for video, (do not use for phone, instead use 24338-21) [facility]17/[place] Estab. patient 30-39min; chronic exacerbation, 2 stable chronic or 1 acute illness add add modifier 95 for video, (do not use for phone, instead use 72508-92) [facility] Estab. patient 30-39min; chronic exacerbation, 2 stable chronic or 1 acute illness add add modifier 95 for video, (do not use for phone, instead use 38782-63) [facility]/17/[place] Estab. patient 30-39min; chronic exacerbation, 2 stable chronic or 1 acute illness add add modifier 95 for video, (do not use for phone, instead use 91597-21) [facility]/17/20[place] Estab. patient 30-39min; chronic exacerbation, 2 stable chronic or 1 acute illness add add modifier 95 for video, (do not use for phone, instead use 19411-25) [facility]/17/20[place] Estab. patient 30-39min; chronic exacerbation, 2 stable chronic or 1 acute illness add add modifier 95 for video, (do not use for phone, instead use 68971-91) [facility] 05/17/2024 Vital Signs Date of Collection Vitals [...] tive Time Current Smoking Status Never smoker 9 Sex Male History of Procedures Procedures Service Procedure code Service date Servicing provider Phone# New patient, 30-44min 1 stable chronic or 2 minor; add modifier 95 for video, modifier 93 for phone [id number] 2023-02-15 No Data Available No Data Available BMI obtained (3008F) 3008F 2023-02-15 No Data Availab le No Data Available Advance care planning discussed and documented advance care plan or surrogate decision-maker was [...] (do not use for phone, instead use 57706-66) [id number] 2024-05-17 No Data Available No Data Availa [...] ble Advance care planning discussed and documented advance care plan or surrogate decision-maker was [...] modifier 95Advance care planning discussed and documented advance care plan or surrogate decision-maker was documented in the medical record. (1123F)SBP < 130 (3074F)DBP <80 (3078F)Pain Assessment - NO pain documented (1126F)Continue to see PCP. Follow-up with CareKady as needed for any acute or disease education needs that may arise 07/03. 2024-05-17 06:11:39 Televideo 30-39min; chronic exacerbation, 2 stable chronic or 1 acute illness add modifier 95Functional Status Assessed (1170F)Pain Assessment - NO pain documented (1126F)BMI obtained (3008F)Advance Care Directive Advance care planning discussion documented in the medical record (1158F)Advance care planning discussed and documented advance care plan or surrogate decision-maker was documented in the medical record. (1123F)SBP 130-139 (3075F)DBP 80-89 (3079F)Medication List Documented (1159F)Medication Review by prescribing provider or pharmacist documented (1160F)Continue to see PCP. Follow-up with Neema as needed for any acute or disease [...] to call for the following symptoms: BP >180/100 / Chest pain / HeadachePlanned intervention: Assess for signs of end organ damage (headache, vision changes, chest pain)/ Washing Machine Installer on proper BP monitoring technique and reassess/ [...] Health Concerns Date Concern 2024-05-17 Visit completed in g audio/video. Patient/Guardian agreed to visit via telehealth. Today, patient has chief complaint of: follow up care and comprehensive review.Reviewed Allergies, Medications, Active Medical conditions, past medical/surgical history, Social history. 2024-05-17 Most recent hospital stay(s) or ER visit(s) and precipitating factors: Denies
--- OUTSIDE RECORDS SUMMARY | 2025-02-20 11:51 | XMS_ITS | Clinical Summary ---
Author Organization [address] [place] [address] [place] [phone] Phone Care Team Providers Care Baton Teacher Name Role Phone Shyann Bermudez Primary Care Provider [phone] Allergies Active Allergy Reactions Criticality Noted Date Comments Lisinopril 12/13/2024 Encounters Date Type Department Care Team Description 12/13/2024 3:15 PM EDT Consult Orthopedic [facility] [address] [phone] Ja Reddy DPM Diabetic mononeuropathy [...] Upcoming Encounters Date Type Department Care Team ([facility] st Contact Info) Description 04/04/2025 3:00 PM EDT Office Visit Orthopedic Surgery - [place] 250 175 [facility] [address] [place] [phone] Ja Reddy, DPM 175 [facility] [address] [place] [address] Health Maintenance Due Date Last Done Comments [...] and At-Risk Patients (6 to 49 Years) (1 of 2 - PCV) 1984 Zoster Vaccines (1 of 2) 2015 COVID-19 Vaccine (2023-2 5 season) 2024 Cholesterol Screening (Lipid Panel) 10/24/2024 Colorectal Cancer Screening: Colonoscopy 10/24/2024 Depression Screening 10/24/2024 Diabetes: Annual Urine Albumin-Creatinine Ratio (uACR) 10/24/2024 Diabetes: Blood Sugar Contro l Test (HGBA1C) 10/24/2024 HIV Screening 10/24/2024 Hepatitis C Screening 10/24/2024 Social Influencers of Health Screening 10/24/2024 Influenza Vaccine (#1) 2025 RSV Immunization Adult Patie nts (1 [...] patient's age to complete this topic [place] [place] [address] Care Teams Baton Teacher Relationship Specialty Start Date End Date Shyann Bermudez PA [address] [place] [phone] PCP - General Physician Quality Systems Specialist 10/24/24
[2025-02-20 12:09] LABS: B Type Natriuretic Peptide 36 pg/mL (<100)
[2025-02-20 12:11] LABS: Alanine Aminotransferase 27 U/L (0-40); Albumin Level 4.3 g/dL (3.5-5.0); Alkaline Phosphatase 74 U/L (39-117); Anion Gap 9 (12-20); Aspartate Amino Transferase 29 U/L (5-37); Blood Urea Nitrogen 12 mg/dL (9-16); Calcium 8.7 mg/dL (8.4-10.2); Carbon Dioxide 31 mmol/L (22-29); Chloride 106 mmol/L (96-108); Cholesterol 113 mg/dL (<200); Estimated Glomerular Filt Rate > 60; HDL Cholesterol 43 mg/dL (>40); Potassium 4.2 mmol/L (3.3-5.1); Sodium 142 mmol/L (135-145); Total Protein 6.9 g/dL (6.5-8.0); Triglycerides 97 mg/dL (<150)
[2025-02-20 12:56] LABS: Microalbum/Creatinine Ratio Ur 49.7 ug/mg cr (<30)
== END 2025-02-20 10:46 | disposition home or self-care (01) ==
LOC: HO.LAB 10:45
PROVIDERS: Absent Provider Physician Assistant; PCP Internal Medicine; Visit Provider Internal Medicine
DX: E11.65 Type 2 diabetes mellitus with hyperglycemia (principal); E11.21 Type 2 diabetes mellitus with diabetic nephropathy; I10 Essential (primary) hypertension; E78.5 Hyperlipidemia, unspecified; D50.9 Iron deficiency anemia, unspecified; Z85.038 Personal history of other malignant neoplasm of large intestine
CPT/HCPCS: 36415; 80048; 80053; 80061; 82043; 82570; 83880; 85027

== ENCOUNTER 2025-02-25 08:45 | Outpatient (AMB) | payer MEDICARE, SELFPAY ==
--- OUTSIDE RECORDS SUMMARY | 2025-02-25 08:52 | XMS_ITS | Clinical Summary ---
Author Organization [facility] Address [address] [place] [address], [place] [address] Care Team Providers Care Drug Abuse Resistance Education Officer Name Role Phone Daniella Colon MD Primary Care Provider [phone] Social History Tobacco Use Types Packs/Day Years [...] to 49 Years) Discontinued 07/04/2015 [place] Care Teams Drug Abuse Resistance Education Officer Relationship Specialty Start Date End Date Daniella Colon MD [address] [place] [address] 1 [place] [phone] PCP - General Internal Medicine 06/07/22
--- OUTSIDE RECORDS SUMMARY | 2025-02-25 08:52 | XMS_ITS ---
Author Name Elisabeth Murcia NP Address [address] [place] [address] Phone [phone] [facility] Care Team Providers Care District Attorney Name Role Phone Elisabeth Murcai Unavailable [phone] [facility] Unavailable Unavailable Unavailable Unavailable OMID OLVERA Unavailable [phone] TYREE PEACOCK Unavailable [phone] DOMINIQUE CHINO Unavailable [phone] Shyann Bermudez Unavailable [phone] Reason for Referral Not Available Allergies, adverse [...] organ damage (headache, vision changes, chest pain)/ Burner Tender on proper BP monitoring technique and reassess/ [...] 95 for video, modifier 93 for phone [facility] 02/15/2023 Type 2 diabetes mellitus wit h other specified complicationHyperlipidemia, unspecifiedEssential (primary) hypertensionMalignant neoplasm of appendixMajor depressive disorder, recurrent, mildMigraine, unspecified, not intractable, without status migrainosusMorbid (severe) obesity due to excess caloriesBody mass index (BMI) 35.0-35.9, adult New patient, 30-44min 1 stable chronic or 2 minor; add modifier 95 for video, modifier 93 for phone [facility] 02/15/2023 New patient, 30-44min 1 stable chronic or 2 minor; add modifier 95 for video, modifier 93 for phone [facility] 02/15/2023 New patient, 30-44min 1 stable chronic or 2 minor; add modifier 95 for video, modifier 93 for phone [facility] 02/15/2023 New patient, 30-44min 1 stable chronic or 2 minor; add modifier 95 for video, modifier 93 for phone [facility] 02/15/2023 New patient, 30-44min 1 stable chronic or 2 minor; add modifier 95 for video, modifier 93 for phone [facility] 02/15/2023 New patient, 30-44min 1 stable chronic or 2 minor; add modifier 95 for video, modifier 93 for phone [facility] 02/15/2023 Estab. patient 30-39min; chronic exacerbation, 2 stable chronic or 1 acute illness add add modifier 95 for video, (do not use for phone, instead use 54577-46) [facility] 05/17/2024 Type 2 diabetes mellitus wit h [...] (do not use for phone, instead use 56369-13) [facility] 05/17/2024 Estab. patient 30-39min; chronic exacerbation, 2 stable chronic or 1 acute illness add add modifier 95 for video, (do not use for phone, instead use 38380-27) [facility] 05/17/2024 Estab. patient 30-39min; chronic exacerbation, 2 stable chronic or 1 acute illness add add modifier 95 for video, (do not use for phone, instead use 45051-13) [facility] 05/17/2024 Estab. patient 30-39min; chronic exacerbation, 2 stable chronic or 1 acute illness add add modifier 95 for video, (do not use for phone, instead use 98188-08) [facility] 05/17/2024 Estab. patient 30-39min; chronic exacerbation, 2 stable chronic or 1 acute illness add add modifier 95 for video, (do not use for phone, instead use 95074-52) [facility] 05/17/2024 Estab. patient 30-39min; chronic exacerbation, 2 stable chronic or 1 acute illness add add modifier 95 for video, (do not use for phone, instead use 97258-44) [facility] [place] 05/17/2024 Estab. patient 30-39min; chronic exacerbation, 2 stable chronic or 1 acute illness add add modifier 95 for video, (do not use for phone, instead use 36627-98) [facility] [place] 05/17/2024 Estab. patient 30-39min; chronic exacerbation, 2 stable chronic or 1 acute illness add add modifier 95 for video, (do not use for phone, instead use 88317-00) [facility] [place] 05/17/2024 Estab. patient 30-39min; chronic exacerbation, 2 stable chronic or 1 acute illness add add modifier 95 for video, (do not use for phone, instead use 78521-11) [facility] [place] 05/17/2024 Vital Signs Date of Collection Vitals [...] tive Time Current Smoking Status Never smoker 2025-02-12 4 Sex Male History of Procedures Procedures Service Procedure code Service date Servicing provider Phone# New patient, 30-44min 1 stable chronic or 2 minor; add modifier 95 for video, modifier 93 for phone [id number] 2023-02-15 No Data Available No Data Available [...] (do not use for phone, instead use 24609-41) [address] 2024-05-17 No Data Available No Data Availa [...] organ damage (headache, vision changes, chest pain)/ Burner Tender on proper BP monitoring technique and reassess/ [...]
--- OUTSIDE RECORDS SUMMARY | 2025-02-25 08:52 | XMS_ITS | Clinical Summary ---
Author Organization [address] [place] [address] [place] [phone] Phone Care Team Providers Care Center Punch Operator Name Role Phone Shyann Bermudez Primary Care Provider Allergies Active Allergy Reactions Criticality Noted Date Comments Lisinopril 12/13/2024 Encounters Date Type Department Care Team Description 12/13/2024 3:15 PM EDT Consult Orthopedic Surgery [facility] [address] [phone] Ja Reddy DPM Diabetic mononeuropathy [...] Upcoming Encounters Date Type Department Care Team ([facility] st Contact Info) Description 04/04/2025 3:00 PM EDT Office Visit Orthopedic Surgery - [place] 250 175 [facility] [address] [place] [phone] Ja Reddy, DPM 175 [facility] [address] [place] [address] Health Maintenance Due Date Last Done Comments Diabetes: Annual GFR (Glomer ular Filtration Rate) 1965 Diabetes: Annual Foot Exam 1975 Diabetes: Annual Retina Eye Exam 1975 DTaP,Tdap,and Td Vaccines (1 - Tdap) 1984 Hepatitis B Vaccines (1 of 3 - 19+ 3-dose series) 1984 Pneumococcal Vaccine: 50+ Ye ars (1 of 2 - PCV) 1984 Zoster Vaccines (1 of 2) 2015 COVID-19 Vaccine ( - 2023-2 5 season) 2024 Cholesterol Screening (Lipid Panel) [...] patient's age to complete this topic Insurance [facility] [id number] Care Teams Center Punch Operator Relationship Specialty Start Date End Date Shyann Bermudez PA [address] [place] [address] 1 [place] [phone] PCP - General Physician Giving Officer 10/24/24
[2025-02-25 09:00] VITALS: BP 140/82; PULSE 72; O2SAT 97; BMI 38.7
--- NOTE | 2025-02-25 09:00 | A.OFFVIS_ITS ---
Vital Signs 02/25/25 09:00 Height 5 ft 10 in Weight 270 lb 1.06 oz BMI 38.7 BP 140/82 H Blood Pressure Location Lt brachial Position Sitting Pulse 72 Pulse Source Pulse Oximeter Pulse Oximetry (%) 97 Oxygen Delivery Method Room Air Intake Visit Reasons: T2DM Intake Note: Patient present today for Type 2 Diabetes Mellitus Last Diabetic eye exam: 03/2024 Last Podiatry Visit: 11/2024 Random Glucose: 115 mg/dl HgA1C: 5.1% Artificial Fly Tier Required: No Accompanied by: Self / Same As Patient Allergies oxaliplatin Allergy (Intermediate, Verified 02/25/25 09:07) Shortness of Breath lisinopril (LISINOPRIL) Allergy (Mild, Verified 02/25/25 09:07) RASH Medication List - Last Reconciled 02/25/25 by Janette Sheikh PA-C alcohol swabs 1 pad topical QIDACHS atorvastatin 10 mg PO BEDTIME blood sugar diagnostic (FreeStyle Lite Strips) Test BID or as directed. blood-glucose meter (FreeStyle Lite Meter kit) As Directed blood-glucose sensor (FreeStyle Deja 3 Plus Sensor device) Use daily As directed to monitor glucose buspirone 10 mg PO DAILY carvedilol 12.5 mg PO BID cholecalciferol (vitamin D3) 25 mcg PO DAILY clotrimazole 1% 1 appl topical BID PRN fluticasone propionate 50 mcg/actuation 1 - 2 sprays intranasal DAILY PRN glucose (Dex4 Glucose) 16 grams (4 x 4 gram) PO Q15M PRN insulin glargine (Lantus Solostar U-100 Insulin) 40 units (0.4 mL) subcut DAILY lancets (FreeStyle Lancets) test blood glucose BID or as directed. omeprazole 20 mg PO DAILY@0630 pen needle, diabetic Use four times a day or as directed. polyethylene glycol 3350 (Miralax) 238 grams PO ONCE sertraline 150 mg PO BEDTIME simethicone (Gas Relief (simethicone)) 160 mg (2 x 80 mg) PO ONCE PRN tirzepatide (Mounjaro) 5 mg (0.5 mL) subcut QWEEK trazodone 150 mg PO BEDTIME HPI HPI T2DM: Details: Patient is a 59-year-old male with a significant past medical history of hypertension, hyperlipidemia, type 2 diabetes, obesity, previous JENNIFER, anemia and GERD presenting today for consultation regarding diabetes. Endo: Dm-was diagnosed with diabetes around 2009. His last A1c was 12.9 and today is 5.1. He is currently on Lantus 45 units daily and mounjaro 5 mg weekly. He states that he is tolerating this very well and has noticed a little bit of appetite suppression with the Mounjaro. He states that he has not been as active as he should be and knows that he needs to watch his diet and exercise a little more closely. He states that he was started on Lantus while hospitalized in August for an JENNIFER. He does not tolerate any doses of metformin. It causes severe GI upset. Actos causes lower leg swelling. Bydureon was ineffective (tried max dose without changes), trulicity was effective but higher doses caused nausea, ozempic he did not note any improvement of glucose readings and had more nausea than he did with trulicity. cgm- 96% usage, G mi 6.2%, average glucose 120. 0% very hyperglycemic, 5% hyperglycemic, 94% in range, 1% hypoglycemic -hypoglycemia rare but occurring overnight/morning. Sometimes he does not check his fingerstick blood sugar and sometimes he is asymptomatic with this. He does treat the low blood sugars with glucose tabs or candy. CV: Blood pressure today in the office is 140/82. He is currently managed with carvedilol 12.5 mg twice a day. Cholesterol is managed with atorvastatin 10 mg. No myalgias. Last LDL was 69. [facility] Medical History Anemia History of blood transfusion (09/20/24) History of colon cancer Infected cyst of skin Cellulitis of abdominal wall Eye inflammation Sleep apnea Ambulates with cane Back pain due to injury Morbid obesity Umbilical hernia Obesity (BMI 30-39.9) Dyslipidemia Diabetic nephropathy associated with type 2 diabetes mellitus Epidermal cyst HTN (hypertension) Diabetes type 2, controlled Surgical History History of colon resection S/P right colectomy H/O colonoscopy S/P appendectomy History of umbilical hernia repair (~01/08/22) Hx of removal of cyst Family History Father Diabetes Heart disease Mother Diabetes Heart disease Other No family history of cancer Social History Household Members: Spouse Housing: House Are you a primary nursing care partner to a significant other at home: No Do you presently have visiting nurse or other home services: No Alcohol intake: never Comment: Ofirmev infusing at time of xfer Patient Tobacco Use Status: Never used Tobacco service: No Current occupational status: disabled Physical Exam Vital Signs: Last Vital Signs Pulse 72 02/25/25 09:00 BP 140/82 H 02/25/25 09:00 Pulse Ox 97 02/25/25 09:00 Oxygen Delivery Method Room Air 02/25/25 09:00 BMI result Body Mass Index 38.7 Const Orientation/consciousness: patient oriented x3 HEENT Ears: hearing grossly normal bilaterally Neck Thyroid: Thyroid normal Lymphatic: no lymphadenopathy noted Resp Auscultation: clear to auscultation bilaterally Cardio Rate: regular rate Rhythm: regular rhythm Heart sounds: S1 normal heart sound present and S2 normal heart sound present Skin General skin exam: no rashes or lesions noted Neuro General: patient oriented x3, gait normal and no focal motor deficits Results AMB Hemoglobin A1c AMB Hemoglobin A1c 5.1 % Last Edit by LIZZIE Vieyra on 02/25/25 09:19 Results Reviewed Results Reviewed: Laboratory Last Values Glucose (Clinic) 115 mg/dL (60-115) 02/25/25 09:08 Hgb A1c (Clinic) 5.1 % (4.0-6.0) 02/25/25 09:14 Laboratory Tests 02/20/25 02/20/25 02/25/25 11:02 11:12 09:08 Creatinine 0.84 Estimated GFR > 60 Glucose (Clinic) 115 Total Bilirubin 0.5 AST 29 ALT 27 Alkaline Phosphatase 74 B-Natriuretic Peptide 36 Total Protein 6.9 Albumin 4.3 Triglycerides 97 Cholesterol 113 LDL Cholesterol, Calc 51 HDL Cholesterol 43 Urine Creatinine 140.81 Urine Microalbumin 70.0 Microalb/Creat Ratio 49.7 H Assessment & Plan Assessment & Plan (1) Type 2 diabetes mellitus with hyperglycemia: Code(s): E11.65 - Type 2 diabetes mellitus with hyperglycemia Category: Medical Plan: Recently controlled Reduce Lantus to 25 units given the intermittent hypoglycemia overnight. Unsure if true hypoglycemia or related to lying on the sensor. He was encouraged to check blood sugar with fingerstick. Increase Mounjaro to 7.5 mg weekly. He will call me if he still develops any low blood sugars and I will have him follow up in a few months. Reviewed rule of 15. Has back up testing supplies (2) Morbid obesity: Code(s): E66.01 - Morbid (severe) obesity due to excess calories Category: Medical Plan: Encouraged him to continue with diet and weight loss. I have increased the Mounjaro. (3) HTN (hypertension): Code(s): I10 - Essential (primary) hypertension Category: Medical Qualifiers: Hypertension type: essential hypertension Qualified Code(s): I10 - Essential (primary) hypertension Plan: Continue current regimen (4) Dyslipidemia: Code(s): E78.5 - Hyperlipidemia, unspecified Category: Medical Plan: Last LDL was 51. Continue the atorvastatin 10 mg nightly. Orders: Orders AMB Hemoglobin A1c Today E11.65 - Type 2 diabetes mellitus with hyperglycemia, Z13.9 - Encounter for screening, unspecified Medications: New tirzepatide (Mounjaro) 7.5 mg (0.5 mL) subcut QWEEK 2 mL 5RF Changed From insulin glargine (Lantus Solostar U-100 Insulin) 40 units (0.4 mL) subcut DAILY 15 mL 11RF To insulin glargine (Lantus Solostar U-100 Insulin) 25 units (0.25 mL) subcut DAILY 15 mL 11RF Discontinued tirzepatide (Mounjaro) Discontinued Reason: Doctor's Order 5 mg (0.5 mL) subcut QWEEK 2 mL 3RF Coding Level of Care Code Est Pt Level 4 (00275) Complex EM visit Add On G2211 Diagnoses Type 2 diabetes mellitus with hyperglycemia E11.65 Morbid obesity E66.01 Essential hypertension I10 Hypertension type: essential hypertension Dyslipidemia E78.5
[2025-02-25 09:12] LABS: Glucose, Whole Blood 115 mg/dL (60-115)
== END 2025-02-25 09:31 | disposition home or self-care (01) ==
LOC: HO.ENCR 08:45
PROVIDERS: PCP Internal Medicine; Visit Provider Physician Assistant
DX: E11.65 Type 2 diabetes mellitus with hyperglycemia (principal); E66.01 Morbid (severe) obesity due to excess calories; I10 Essential (primary) hypertension; E78.5 Hyperlipidemia, unspecified; Z13.9 Encounter for screening, unspecified

== ENCOUNTER → 2025-02-25 08:45 | Outpatient (BNVA) | payer MEDICARE, SELFPAY | PROVIDERS: PCP Internal Medicine; Visit Provider Physician Assistant | DX: E11.65 Type 2 diabetes mellitus with hyperglycemia (principal); E66.01 Morbid (severe) obesity due to excess calories; Z68.38 Body mass index [BMI] 38.0-38.9, adult; E78.5 Hyperlipidemia, unspecified; I10 Essential (primary) hypertension; Z71.3 Dietary counseling and surveillance | CPT/HCPCS: 82947; 83036; 99212 ==

== ENCOUNTER 2025-03-27 08:05 | Outpatient (REF) | payer MEDICARE, SELFPAY ==
--- NOTE | ~2025-03-27 | XR_ITS ---
EXAMINATION: XR ABDOMEN 1 VIEW (KUB) HISTORY: T18.9XXA - Foreign body of alimentary tract, part unspecified, initial COMPARISON: Comparison is made with the prior examination dated 01/18/2025. FINDINGS: Three supine views of the abdomen are submitted. The bowel gas pattern is unremarkable, without evidence of mechanical obstruction. There are surgical clips in the right upper quadrant. No abnormal calcifications are identified. There are no abnormal soft tissue masses. The bones are intact. XR/XR KUB IMPRESSION: No radiopaque foreign body is identified. Electronically signed by: Myron Nicholson MD 03/27/2025 08:38 AM EDT
[2025-03-27 08:51] LABS: Hematocrit 35.0 % (42.0-52.0); Hemoglobin 10.4 g/dl (14.0-18.0); Mean Corpuscular HGB Conc 29.7 g/dl (31.0-36.0); Mean Corpuscular Hemoglobin 24.4 pg (27.0-33.0); Mean Corpuscular Volume 82.2 fL (80.0-98.0); NRBC Abs Auto 0.000 X10*3/uL (0.0-0.012); NRBC Pct Auto 0.0 /100WBC (0.0-0.2); Platelet Count 150 X10*3/uL (160-400); Red Blood Count 4.26 X10*6/uL (4.60-5.80); White Blood Count 4.7 X10*3/uL (4.8-10.8)
[2025-03-27 09:25] LABS: Iron 29 mcg/dL (45-160); Percent Iron Saturation 11 % (15-50); Total Iron Binding Capacity 276 mcg/dL (228-428); Unsaturated Iron Binding 247 ug/dL
[2025-03-27 09:45] LABS: Ferritin 16 ng/mL (20-250)
== END 2025-03-27 08:06 | disposition home or self-care (01) ==
LOC: HO.LAB 08:05
PROVIDERS: PCP Internal Medicine; Visit Provider Internal Medicine
DX: D64.9 Anemia, unspecified (principal); D50.9 Iron deficiency anemia, unspecified; T18.9XXA Foreign body of alimentary tract, part unspecified, initial encounter
CPT/HCPCS: 36415; 74018; 82728; 83540; 85027

== ENCOUNTER → 2025-03-27 08:12 | Outpatient (BNV) | payer MEDICARE, SELFPAY | PROVIDERS: PCP Internal Medicine; Visit Provider Radiology Diagnostic Radiology | DX: K21.9 Gastro-esophageal reflux disease without esophagitis (principal) | CPT/HCPCS: 74018 ==

== ENCOUNTER 2025-04-26 08:27 | Outpatient (REF) | payer MEDICARE, SELFPAY ==
--- NOTE | ~2025-04-26 | CT_ITS ---
CLINICAL HISTORY: surveillance colon cancer CT abdomen and pelvis with contrast Comparison: CT/SR - CT ENTEROGRAPHY - 01/03/25 15:32 EDT MR - MR ABDOMEN WO/W CON - 10/21/24 15:[address]/WI/SR - CT CHEST W IV CON - 07/16/24 09:[address]/WI/SR - CT ABDOMEN PELVIS W IV CON - 07/16/24 09:12 EST Findings: No consolidation or effusion. Gallbladder is within normal limits. Stable 4 mm low-density focus within the right hepatic dome posteriorly. No pneumoperitoneum, or pneumatosis. Right colectomy. Moderate small-bowel dilatation, predominantly within the right abdomen and pelvis. Transition zone between dilated and nondilated small bowel is not seen. Distal ileum is nondistended. mildly thickened small bowel loops within the right abdomen. Mild fat stranding and peritoneal nodularity within the right abdomen ( image 58). Bowel and fat containing anterior abdominal wall hernia measuring 13.4 cm transverse, Which does not appear to represent the site of obstruction.. Pelvic contents unremarkable. Appendix is surgically absent. No acute fracture. IMPRESSION: 1. Distended small bowel loops, possibly indicating obstruction. 2. Thickened small bowel loops, consistent with ischemia, infection, or inflammation. 3. Focal region of peritoneal nodularity as described above, which could indicate malignancy. Attention to this region on follow-up imaging studies is recommended. Alternatively, PET-CT could be performed for further assessment. 4. Bowel containing anterior abdominal wall hernia. This document has been electronically signed by: Rosalinda Rivera MD on 04/26/2025 16:37:42
--- NOTE | ~2025-04-26 | CT_ITS ---
CLINICAL HISTORY: surveillance colon cancer CT chest without contrast Comparison: CT/MA/SR - CT CHEST W IV CON - 07/16/24 09:12 EST Findings: The heart size is normal. Calcification of the coronary vasculature. The visualized thyroid and mediastinum are unremarkable. No consolidation or effusion. The upper abdomen is unremarkable. The bones are intact. IMPRESSION: 1. No acute process. No evidence of malignancy. 2. Coronary artery disease This document has been electronically signed by: Rosalinda Rivera MD on 04/26/2025 16:30:24
--- OUTSIDE RECORDS SUMMARY | 2025-04-26 08:55 | XMS_ITS ---
Author Name Laura Barros NP Address [address] [place] [address] Phone [phone] [facility] Care Team Providers Care Designer Architect Name Role Phone Laura Barros Unavailable [phone] [facility] Unavailable Unavailable Unavailable Unavailable OMID OLVERA Unavailable [phone] TYREE PEACOCK Unavailable [phone] DOMINIQUE CHINO Unavailable [phone] Shyann Bermudez Unavailable [phone] Reason for Referral Not Available Allergies, adverse [...] organ damage (headache, vision changes, chest pain)/ Buggy Man on proper BP monitoring technique and reassess/ [...] 95 for video, modifier 93 for phone [facility] [place] 02[place]2023 Type 2 diabetes mellitus wit h other specified complicationHyperlipidemia, unspecifiedEssential (primary) hypertensionMalignant neoplasm of appendixMajor depressive disorder, recurrent, mildMigraine, unspecified, not intractable, without status migrainosusMorbid (severe) obesity due to excess caloriesBody mass index (BMI) 35.0-35.9, adult New patient, 30-44min 1 stable chronic or 2 minor; add modifier 95 for video, modifier 93 for phone [facility] 02/15/2023 New patient, 30-44min 1 stable chronic or 2 minor; add modifier 95 for video, modifier 93 for phone [facility] [place] 02/15/2023 New patient, 30-44min 1 stable chronic or 2 minor; add modifier 95 for video, modifier 93 for phone [facility] [place] 02/15/2023 New patient, 30-44min 1 stable chronic or 2 minor; add modifier 95 for video, modifier 93 for phone [facility] [place] 02/15/2023 New patient, 30-44min 1 stable chronic or 2 minor; add modifier 95 for video, modifier 93 for phone [facility] [place] 02/15/2023 New patient, 30-44min 1 stable chronic or 2 minor; add modifier 95 for video, modifier 93 for phone [facility] [place] 02/15/2023 Estab. patient 30-39min; chronic exacerbation, 2 stable chronic or 1 acute illness add add modifier 95 for video, (do not use for phone, instead use 73502-35) [facility] [place] 05/17/2024 Type 2 diabetes mellitus wit [...] (do not use for phone, instead use 79296-65) [facility]17/[place] Estab. patient 30-39min; chronic exacerbation, 2 stable chronic or 1 acute illness add add modifier 95 for video, (do not use for phone, instead use 65687-60) [facility] [place] 05/17/20[place] Estab. patient 30-39min; chronic exacerbation, 2 stable chronic or 1 acute illness add add modifier 95 for video, (do not use for phone, instead use 58327-45) [facility] [place] 05/17/20[place] Estab. patient 30-39min; chronic exacerbation, 2 stable chronic or 1 acute illness add add modifier 95 for video, (do not use for phone, instead use 90135-51) [facility] [place] 05/17/20[place] Estab. patient 30-39min; chronic exacerbation, 2 stable chronic or 1 acute illness add add modifier 95 for video, (do not use for phone, instead use 24565-95) [facility] [place] 05/17/2024 Estab. patient 30-39min; chronic exacerbation, 2 stable chronic or 1 acute illness add add modifier 95 for video, (do not use for phone, instead use 20159-13) [facility] [place] 05/17/20[place] Estab. patient 30-39min; chronic exacerbation, 2 stable chronic or 1 acute illness add add modifier 95 for video, (do not use for phone, instead use 17949-89) [facility] [place] 05/17/2024 Estab. patient 30-39min; chronic exacerbation, 2 stable chronic or 1 acute illness add add modifier 95 for video, (do not use for phone, instead use 52357-07) [facility] [place] 05/17/2024 Estab. patient 30-39min; chronic exacerbation, 2 stable chronic or 1 acute illness add add modifier 95 for video, (do not use for phone, instead use 62136-28) [facility] [place] 05/17/2024 Vital Signs Date of Collection [...] Time Current Smoking Status Never smoker 2025-04-15 2 Sex Male History of Procedures Procedures Service Procedure code Service date Servicing provider Phone# New patient, 30-44min 1 stable chronic or 2 minor; add modifier 95 for video, modifier 93 for phone [id number] 2023-02-15 No Data Available No Data Available [...] (do not use for phone, instead use 20234-14) [id number] 2024-05-17 No Data Available No Data Availa [...] organ damage (headache, vision changes, chest pain)/ Buggy Man on proper BP monitoring technique and reassess/ [...]
--- OUTSIDE RECORDS SUMMARY | 2025-04-26 08:55 | XMS_ITS | Clinical Summary ---
Author Organization [facility] Facility Address [address] [place] [address], [place] [address] Care Team Providers Care Store Clerk Cashier Name Role Phone Daniella Colon MD Primary [...] to 49 Years) Discontinued 07/04/2015 Insurance Medicaid [place] Care Teams Store Clerk Cashier Relationship Specialty Start Date End Date Daniella Colon MD [address] [place] [address] [address] [place] [address] PCP - General Internal Medicine 06/07/22
--- OUTSIDE RECORDS SUMMARY | 2025-04-26 08:56 | XMS_ITS | Clinical Summary ---
Author Organization [facility] Address [address] [place] [address] Phone Care Team Providers Care Clinical Lab Specialist Name Role Phone Shyann Bermudez Primary Care Provider [phone] Allergies Active Allergy Reactions Criticality Noted Date [...] to complete this topic Insurance [employer] [id number] Care Teams Clinical Lab Specialist Relationship Specialty Start Date End Date Shyann Bermudez PA [address] [place] [phone] PCP - General Physician Hand Inserter Operator 10/24/24
[2025-04-26] MEDS: iohexoL 350 MG/ML 100 ML INFUS..BTL IV (09:52)
== END 2025-04-26 08:28 | disposition home or self-care (01) ==
LOC: HO.CT 08:27
PROVIDERS: PCP Internal Medicine; Visit Provider Internal Medicine
DX: C18.1 Malignant neoplasm of appendix (principal)
CPT/HCPCS: 71250; 74177; Q9967

== ENCOUNTER → 2025-04-26 08:30 | Outpatient (BNV) | payer MEDICARE, SELFPAY | PROVIDERS: PCP Internal Medicine; Visit Provider Radiology Diagnostic Radiology | DX: K56.609 Unspecified intestinal obstruction, unspecified as to partial versus complete obstruction (principal); R10.84 Generalized abdominal pain; I25.84 Coronary atherosclerosis due to calcified coronary lesion | CPT/HCPCS: 71250; 74176; 74177 ==

== ENCOUNTER 2025-04-26 17:15 | Emergency (ER) | payer MEDICARE, SELFPAY ==
--- NOTE | ~2025-04-26 | CT_ITS ---
CLINICAL HISTORY: abd pain, abnormal CT scan today; PT HAD SCAN WITH IV EARLIER TODAY; ORAL CT abdomen and pelvis without contrast Comparison: 04/26/2025 Findings: Small bowel wall thickening in right lower quadrant. Adjacent stranding noted in right lower quadrant. No significant bowel distention noted. Findings concerning for inflammatory bowel disease. Stable right basilar atelectasis versus scar. Mild degenerative change spine and hips. No acute bony abnormalities. Small hiatal hernia noted. Ventral hernias are unchanged. Liver and spleen within normal limits. Pancreas and adrenal glands unremarkable. Gallbladder within normal limits. No bilateral renal stone or hydronephrosis. No focal renal abnormality or ureteral dilation. There is contrast excretion from prior studies. No evidence for aortic aneurysm. No free fluid or adenopathy in the pelvis. No diverticulitis. Appendix not identified. Impression: Right lower quadrant small bowel wall thickening with adjacent stranding Probable inflammatory bowel disease This document has been electronically signed by: Baldev Giron MD on 04/26/2025 21:49:31
[2025-04-26 17:23] VITALS: BP 137/77; PULSE 73; RESP 18; TEMP 36.9; O2SAT 94; BMI 38.2
--- NOTE | 2025-04-26 17:23 | ED_ITS ---
HPI - General Adult General Chief complaint: Abdominal Pain Stated complaint: Abnormal CT scan sent by PCP Time Seen by Provider: 04/26/25 18:00 Source: patient, family and old records reviewed Mode of arrival: ambulatory Limitations: no limitations History of Present Illness ED Provider: MARIA A INIGUEZ narrative: 59 yo male with PMH of appendiceal carcinoma s/p surgery and chemo with last treatment 1 year ago, HTN, KYM, DM, HLD who has been taking oral Fe for the past week - he is coming in due to abdominal pain and black stools for one week. He is making stool, eating okay and no n/v. He has no fevers. He had outpatient CT scan done today with IV contrast showing bowel wall thickening as well as possible obstruction. He was referred to ED. MD complaint: black stools, abd pain Onset (ago): week(s) (1) Location: abdomen Radiation: non-radiation Severity: mild Quality: dull Pain Consistency: intermittent Relieving factors: none Exacerbating factors: eating Associated symptoms: other (black stools) Treatments prior to arrival: none Related Data Home Medications ?Medication ?Instructions ?Recorded ?Confirmed atorvastatin 10 mg tablet 10 mg PO BEDTIME 10/22/20 carvedilol 12.5 mg tablet 12.5 mg PO BID 10/22/2011/06 cholecalciferol (vitamin D3) 25 25 mcg PO DAILY 04/17/25 mcg (1,000 unit) capsule trazodone 150 mg tablet 150 mg PO BEDTIME 11/04/20 0 04/17/25 sertraline 100 mg tablet 150 mg PO BEDTIME 01/04/22 0 04/17/25 buspirone 10 mg tablet 10 mg PO DAILY 09/20/2311/06 clotrimazole 1 % topical cream 1 appl topical BID PRN Rash 09/20/23 04/17/25 fluticasone propionate 50 1 - 2 spray intranasal DAILY PRN 04/09/24 04/17/25 mcg/actuation nasal cold and allergies spray,suspension Previous Rx's ?Medication ?Instructions ?Recorded alcohol swabs 1 pad topical QIDACHS #100 e a 09/08/24 omeprazole 20 mg capsule,delayed 20 mg PO DAILY@0630 # 30 caps 09/08/24 release pen needle, diabetic 32 gauge x #100 ea 09/08/24 1/ blood sugar diagnostic (FreeStyle #100 ea 10/29/24 Lite Strips) blood-glucose meter (FreeStyle #1 ea 10/29/24 Lite Meter kit) glucose 4 gram chewable tablet 16 g (4 x 4 gram) PO Q1 5M PRN 10/29/24 (Dex4 Glucose) hypoglycemia #100 tabs lancets 28 gauge (FreeStyle #100 ea 10/29/24 Lancets) polyethylene glycol 3350 17 238 g PO ONCE #238 grams 0 01/16/25 gram/dose oral powder (Miralax) simethicone 80 mg chewable tablet 160 mg (2 x 80 mg) P O ONCE PRN 01/16/25 (Gas Relief (simethicone)) abdominal distention #2 tab s insulin glargine 100 unit/mL (3 25 unit (0.25 mL) subc ut DAILY #15 02/25/25 mL) subcutaneous pen (Lantus mL Solostar U-100 Insulin) tirzepatide 7.5 mg/0.5 mL 7.5 mg (0.5 mL) subcut QWEEK #2 mL 02/25/25 subcutaneous pen injector (Mounjaro) blood-glucose sensor (FreeStyle #2 ea 03/13/25 Deja 3 Plus Sensor device) ferrous sulfate 325 mg (65 mg 325 mg PO BID #60 tabs 0 04/17/25 iron) tablet peg 3350-electrolytes 236 240 ml PO Q10M colonoscopy p rep 04/25/25 gram-22.74 gram-6.74 gram-5.86 #4,000 mL gram solution Allergies Allergy/AdvReac Type Severity Reaction Status Date / Time oxaliplatin Allergy Intermediate Shortness Verified 04/26/25 17:26 of Breath lisinopril (LISINOPRIL) Allergy Mild RASH Verified 04/26/25 17:26 Review of Systems 2 Review of Systems: Constitutional : No Fever, No Chills, No Fatigue ENT/Mouth : No sore throat, No Rhinorrhea Eyes: No Eye Pain, No Swelling, No Redness Cardiovascular : No Chest Pain, No SOB, No Dyspnea on Exertion Respiratory : No Cough, No Sputum Gastrointestinal : No Nausea, No Vomiting, No Diarrhea, pos abdominal Pain, pos melena Genitourinary : No Dysuria, No Urinary Frequency, No Hematuria, Musculoskeletal : No joint pain, No Myalgias, No Joint Swelling Skin : No Skin Lesions, No rash Neuro : No Weakness, No Numbness, No Dizziness All other systems reviewed and are negative [facility] Past Medical History Attestation statement: The following information was validated with the patient. Source: old records reviewed Medical History Anemia History of blood transfusion (09/20/24) History of colon cancer Infected cyst of skin Cellulitis of abdominal wall Eye inflammation Sleep apnea Ambulates with cane Back pain due to injury Morbid obesity Umbilical hernia Obesity (BMI 30-39.9) Dyslipidemia Diabetic nephropathy associated with type 2 diabetes mellitus Epidermal cyst HTN (hypertension) Diabetes type 2, controlled Surgical History History of colon resection S/P right colectomy H/O colonoscopy S/P appendectomy History of umbilical hernia repair (~01/08/22) Hx of removal of cyst Family History Family History Father Diabetes Heart disease Mother Diabetes Heart disease Other No family history of cancer Social History Social History Household Members: Spouse Housing: House Are you a primary care coordinator to a significant other at home: No Do you presently have visiting nurse or other home services: No Alcohol intake: never Comment: Ofirmev infusing at time of xfer Patient Tobacco Use Status: Never used Tobacco Smoked in Last 30 Days: No Use of substances other than those prescribed or required for medical reasons: No Advance Directives: No Advance Directives Information Provided: No service: No Current occupational status: disabled Physical Exam ED Vital Signs: Vital Signs - 24 hr 04/26/25 17:23 04/26/25 18:53 04/26/25 20:00 Temperature 98.5 F 98.6 F 98.5 F Pulse Rate 73 65 70 Respiratory Rate 18 18 15 Blood Pressure 137/77 130/73 132/85 Pulse Oximetry 94 97 100 Oxygen Delivery Method Room Air Room Air Room Air 04/26/25 22:00 Temperature 98.5 F Pulse Rate 77 Respiratory Rate 16 Blood Pressure 130/75 Pulse Oximetry 100 Oxygen Delivery Method Room Air BMI result Body Mass Index 38.2 Appearance: Alert. Oriented X3. No acute distress. Eyes: Pupils equal, round and reactive to light. ENT: Pharynx normal. Neck: Normal inspection. Neck supple. CVS: Normal heart rate and rhythm. Pulses normal. Respiratory: No respiratory distress. Breath sounds normal. Abdomen: Soft and mild epigastric ttp no rebound or guarding Rectal: light brown stool Skin: Skin warm and dry. Normal skin color. Normal skin turgor. Extremities: No lower extremity edema. No calf ttp Neuro: Oriented X 3. No motor deficit. No sensory deficit. CN2-12 intact Course Course Course Narrative: Rapid medical examination performed in triage by Renate Del Cid PA-C. Patient is a 59 year old assigned male at presenting to the emergency department with abdominal pain. Patient states that he follows with Dr. Murguia for anemia. Dr. Murguia had a CT scan of his chest and abdomen done which showed evidence of obstruction and possible malignancy. Detailed physical exam and review of systems are deferred to the custom shop worker. Labs ordered. Patient placed back in the waiting room pending room availability and results. Reevaluation(s) Reevaluation #1: signed out to Dr. Stevenson 9pm Reevaluation #2: DR. Stevenson's Progress note: I assumed care for this patient at 21:00 patient was history of colon cancer, appendectomy had outpatient CT with a suspicion of small-bowel obstruction, in the ED patient had oral contrast CT patient reported a big bowel movement before the CT and passing flatus, CT with oral contrast reveals the following:Right lower quadrant small bowel wall thickening with adjacent stranding, Probable inflammatory bowel disease. patient feels okay, no vomiting, no nausea, normal appetite, no fever, no chills, no leukocytosis, CT suggesting inflammatory bowel disease given the above finding patient need no antibiotic. patient has an appointment with GI on 04/30. Stable H&H at patient's baseline, rectal exam done by Dr. Mehta reportedly was negative for blood. Time: 22:19 Medical Decision Making Medical Decision Making MDM Narrative: 59 yo male with PMH of appendiceal carcinoma s/p surgery and chemo with last treatment 1 year ago, HTN, KYM, DM, HLD now here with c/o dark stools but he is on Fe. He has upper abdominal pain had abnormal CT scan today showing possible obstruction/mass. He is eating and drinking okay and having BM daily so this seems atypical for obstruction. I am going to order CT scan with oral contrast Differential Diagnosis Differential Diagnoses: The differential diagnosis associated with the presentation includes SBO, mass, constipation, Fe causing dark stools Admission/Observation Consideration of admission/observation: Escalation of care including admission/observation considered Lab Data MDM Lab Attestation statement: I reviewed the patient's lab results. H/H stable 04/26/25 17:40 04/26/25 17:40 Labs: Lab Results 04/26/25 04/26/25 Range/Units 17:40 18:49 WBC 5.3 (4.8-10.8) X10*3/uL RBC 3.86 L (4.60-5.80) X10*6/uL Hgb 9.6 L (14.0-18.0) g/dl Hct 32.0 L (42.0-52.0) % MCV 82.9 (80.0-98.0) fL MCH 24.9 L (27.0-33.0) pg MCHC 30.0 L (31.0-36.0) g/dl RDW 19.6 H (11.0-16.0) % Plt Count 117 L (160-400) X10*3/uL MPV 9.5 (9.4-12.4) fL Immature Gran % (Auto) 0.8 H (0.0-0.4) % Neut % (Auto) 64.2 (45-73) % Lymph % (Auto) 25.0 (20-40) % [place] % (Auto) 8.1 (2-11) % Eos % (Auto) 1.7 (0-4) % Baso % (Auto) 0.2 (0-2) % Lymph # (Auto) 1.3 (1.2-4.9) X10*3/uL [place] # (Auto) 0.4 (0.1-1.2) X10*3/uL Eos # (Auto) 0.1 (0.0-0.4) X10*3/uL Baso # (Auto) 0.0 (0.0-0.2) X10*3/uL Abs Immat Gran (auto) 0.04 H (0.00-0.03) X10*3/uL Absolute Neuts (auto) 3.4 (2.0-8.3) x10*3/uL Absolute Nucleated RBC 0.020 H (0.0-0.012) X10*3/uL Nucleated RBC % (auto) 0.4 H (0.0-0.2) /100WBC PT 11.8 (10.9-12.4) SEC INR 1.0 (0.9-1.1) Sodium 145 (135-145) mmol/L Potassium 4.2 (3.3-5.1) mmol/L Chloride 109 H (96-108) mmol/L Carbon Dioxide 29 (22-29) mmol/L Anion Gap 11 L (12-20) BUN 10 (9-16) mg/dL Creatinine 0.94 (0.5-1.4) mg/dL Estim Creat Clear Calc 110.2 Estimated GFR > 60 Random Glucose 101 (60-115) mg/dL Calcium 8.2 L (8.4-10.2) mg/dL Magnesium 1.9 (1.6-2.6) mg/dL Total Bilirubin 0.3 (0.0-1.0) mg/dL AST 27 (5-37) U/L ALT 18 (0-40) U/L Alkaline Phosphatase 85 (39-117) U/L Total Protein 6.3 L (6.5-8.0) g/dL Albumin 4.0 (3.5-5.0) g/dL Lipase 42 (8-78) U/L Stool Occult Blood NEGATIVE (NEGATIVE) Blood Type O Positive Antibody Screen NEGATIVE Independent Interpretation I performed an independent interpretation of an: CT Scan Radiology Impression Discussion of test interpretation with radiology: I have reviewed the radiologist's reading. Independent Historian Clinical information obtained from an independent historian. History obtained from or confirmed by: Other (daughter) External Record Review External record reviewed: Inpatient record and Outpatient record Discharge Plan Discharge Clinical Impression: Dark stools Abdominal pain Qualifiers: Abdominal location: epigastric Qualified Code(s): R10.13 - Epigastric pain Patient Disposition: Home, Self-Care Instructions: Abdominal Pain (ED) Additional Instructions: Keep your appointment with Dr. Robles via next week, return to the ED if your symptoms is worsening. Prescriptions: No Action polyethylene glycol 3350 [Miralax] 17 gram/dose powder 238 g PO ONCE Qty: 238 0RF Rx Instructions: mix half in 32 oz of gatorade for colon prep simethicone [Gas Relief (simethicone)] 80 mg tablet,chewable 160 mg PO ONCE PRN (Reason: abdominal distention) Qty: 2 0RF Rx Instructions: as per instructions from GI office (DME) FreeStyle Deja 3 Plus Sensor Device See Rx Instructions .ROUTE .MEDSUPPLY Qty: 2 5RF Rx Instructions: Use daily As directed to monitor glucose peg 3350-electrolytes 236-22.74-6.74 -5.86 gram recon soln 240 ml PO Q10M Qty: 4000 0RF Rx Instructions: USE WATER ONLY to dilute. This may be prepared 2 days before your procedure and placed in refrigerator. The DAY BEFORE PROCEDURE: AT 4PM START drinking 1 cup every 15minutes until half is gone. Continue drinking plenty of clear liquids. AT 10PM FINISH drinking remaining prep until stool is clear. sertraline 100 mg tablet 150 mg PO BEDTIME ferrous sulfate 325 mg (65 mg iron) Tablet 325 mg PO BID Qty: 60 3RF alcohol swabs Pads, Medicated 1 pad TOPICAL QIDACHS Qty: 100 0RF Rx Instructions: Use four times a day or as directed. (DME) pen needle, diabetic 32 gauge x 1/4 needle Qty: 100 0RF Rx Instructions: Use four times a day or as directed. omeprazole 20 mg Capsule,Delayed Release(Dr/Ec) 20 mg PO DAILY@0630 Qty: 30 0RF cholecalciferol (vitamin D3) 25 mcg (1,000 unit) capsule 25 mcg PO DAILY atorvastatin 10 mg tablet 10 mg PO BEDTIME carvedilol 12.5 mg tablet 12.5 mg PO BID trazodone 150 mg tablet 150 mg PO BEDTIME clotrimazole 1 % cream 1 appl topical BID PRN (Reason: Rash) fluticasone propionate 50 mcg/actuation spray,suspension 1 - 2 spray intranasal DAILY PRN (Reason: cold and allergies) glucose [Dex4 Glucose] 4 gram tablet,chewable 16 g PO Q15M PRN (Reason: hypoglycemia) Qty: 100 0RF Rx Instructions: until symptoms of low blood sugar are controlled (DME) blood-glucose meter [FreeStyle Lite Meter] Kit Qty: 1 0RF Rx Instructions: As Directed (DME) FreeStyle Lite Strips Strip Qty: 100 3RF Rx Instructions: Test BID or as directed. (DME) lancets [FreeStyle Lancets] 28 gauge misc Qty: 100 0RF Rx Instructions: test blood glucose BID or as directed. buspirone 10 mg tablet 10 mg PO DAILY insulin glargine [Lantus Solostar U-100 Insulin] 100 unit/mL (3 mL) insulin pen 25 unit SUBCUT DAILY Qty: 15 11RF Mounjaro 7.5 mg/0.5 mL pen injector 7.5 mg subcut QWEEK Qty: 2 5RF Referrals: Daniella Colon MD [Primary Care Provider, Medical] Jil Robles MD [Physician, Gastroenterology] Print Language: Urdu
[2025-04-26 17:45] LABS: MANUAL DIFF FLAG NO
[2025-04-26 17:47] LABS: Hematocrit 32.0 % (42.0-52.0); Hemoglobin 9.6 g/dl (14.0-18.0); Imm Gran Abs Auto 0.04 X10*3/uL (0.00-0.03); Imm Gran Pct Auto 0.8 % (0.0-0.4); Lymphocytes Absolute Auto 1.3 X10*3/uL (1.2-4.9); Mean Corpuscular HGB Conc 30.0 g/dl (31.0-36.0); Mean Corpuscular Hemoglobin 24.9 pg (27.0-33.0); Mean Corpuscular Volume 82.9 fL (80.0-98.0); NRBC Abs Auto 0.020 X10*3/uL (0.0-0.012); NRBC Pct Auto 0.4 /100WBC (0.0-0.2); Platelet Count 117 X10*3/uL (160-400); Red Blood Count 3.86 X10*6/uL (4.60-5.80); White Blood Count 5.3 X10*3/uL (4.8-10.8)
[2025-04-26 17:52] LABS: INTERNATIONAL NORM RATIO 1.0 (0.9-1.1); Prothrombin Time 11.8 SEC (10.9-12.4)
[2025-04-26 18:03] LABS: Alanine Aminotransferase 18 U/L (0-40); Albumin Level 4.0 g/dL (3.5-5.0); Alkaline Phosphatase 85 U/L (39-117); Anion Gap 11 (12-20); Aspartate Amino Transferase 27 U/L (5-37); Blood Urea Nitrogen 10 mg/dL (9-16); Calcium 8.2 mg/dL (8.4-10.2); Carbon Dioxide 29 mmol/L (22-29); Chloride 109 mmol/L (96-108); Creatinine Clr Calc Pharmacy 110.2; Estimated Glomerular Filt Rate > 60; Magnesium 1.9 mg/dL (1.6-2.6); Potassium 4.2 mmol/L (3.3-5.1); Sodium 145 mmol/L (135-145); Total Protein 6.3 g/dL (6.5-8.0)
--- OUTSIDE RECORDS SUMMARY | 2025-04-26 18:04 | XMS_ITS ---
Author Name Laura Barros NP Address [address] [place] [address] Phone [phone] [facility] Care Team Providers Care Shirt Presser Name Role Phone Laura Barros Unavailable [phone] [facility] Unavailable Unavailable Unavailable Unavailable OMID OLVERA Unavailable [phone] TYREE PEACOCK Unavailable [phone] DOMINIQUE CHINO Unavailable [phone] Shyann Bermudez Unavailable [phone] Reason for Referral Not Available Allergies, adverse [...] organ damage (headache, vision changes, chest pain)/ Career Center Advisor on proper BP monitoring technique and reassess/ [...] for video, modifier 93 for phone [facility] [place] 02/15/2023 Type 2 diabetes mellitus wit h other specified complicationHyperlipidemia, unspecifiedEssential (primary) hypertensionMalignant neoplasm of appendixMajor depressive disorder, recurrent, mildMigraine, unspecified, not intractable, without status migrainosusMorbid (severe) obesity due to excess caloriesBody mass index (BMI) 35.0-35.9, adult New patient, 30-44min 1 stable chronic or 2 minor; add modifier 95 for video, modifier 93 for phone [facility] [place] 02/15/2023 New patient, 30-44min 1 stable chronic or 2 minor; add modifier 95 for video, modifier 93 for phone [facility] [place] 02/15/2023 New patient, 30-44min 1 stable chronic or 2 minor; add modifier 95 for video, modifier 93 for phone [facility] [place] 02/15/2023 New patient, 30-44min 1 stable chronic or 2 minor; add modifier 95 for video, modifier 93 for phone [facility] [place] 02/15/2023 New patient, 30-44min 1 stable chronic or 2 minor; add modifier 95 for video, modifier 93 for phone [facility] [place] 02/15/2023 New patient, 30-44min 1 stable chronic or 2 minor; add modifier 95 for video, modifier 93 for phone [facility] [place] 02/15/2023 Estab. patient 30-39min; chronic exacerbation, 2 stable chronic or 1 acute illness add add modifier 95 for video, (do not use for phone, instead use 10346-77) [facility] [place] 05/17/2024 Type 2 diabetes mellitus wit h [...] (do not use for phone, instead use 84650-70) [facility] [place] 05/17/2024 Estab. patient 30-39min; chronic exacerbation, 2 stable chronic or 1 acute illness add add modifier 95 for video, (do not use for phone, instead use 90749-92) [facility] [place] 05/17/2024 Estab. patient 30-39min; chronic exacerbation, 2 stable chronic or 1 acute illness add add modifier 95 for video, (do not use for phone, instead use 67681-18) [facility] [place] 05/17/2024 Estab. patient 30-39min; chronic exacerbation, 2 stable chronic or 1 acute illness add add modifier 95 for video, (do not use for phone, instead use 11560-08) [facility] [place] 05/17/2024 Estab. patient 30-39min; chronic exacerbation, 2 stable chronic or 1 acute illness add add modifier 95 for video, (do not use for phone, instead use 31952-39) [facility] [place] 05/17/2024 Estab. patient 30-39min; chronic exacerbation, 2 stable chronic or 1 acute illness add add modifier 95 for video, (do not use for phone, instead use 07231-57) [facility] [place] 05/17/2024 Estab. patient 30-39min; chronic exacerbation, 2 stable chronic or 1 acute illness add add modifier 95 for video, (do not use for phone, instead use 23275-64) [facility] [place] 05/17/2024 Estab. patient 30-39min; chronic exacerbation, 2 stable chronic or 1 acute illness add add modifier 95 for video, (do not use for phone, instead use 16392-99) [facility] [place] 05/17/2024 Estab. patient 30-39min; chronic exacerbation, 2 stable chronic or 1 acute illness add add modifier 95 for video, (do not use for phone, instead use 13210-75) [facility] [place] 05/17/2024 Vital Signs Date of Collection Vitals [...] 95 for video, modifier 93 for phone [id number] 2023-02-15 No Data Available No Data Available [...] (do not use for phone, instead use 23806-48) [id number] 2024-05-17 No Data Available No Data Availa [...] organ damage (headache, vision changes, chest pain)/ Career Center Advisor on proper BP monitoring technique and reassess/ [...]
--- OUTSIDE RECORDS SUMMARY | 2025-04-26 18:05 | XMS_ITS | Clinical Summary ---
Author Organization [facility] Address [address] [place] [address] Phone Care Team Providers Care Diesel Trailer Mechanic Name Role Phone Shyann Bermudez Primary Care Provider [phone] Allergies Active Allergy Reactions Criticality Noted Date [...] patient's age to complete this topic Insurance [employer] [id number] Care Teams Diesel Trailer Mechanic Relationship Specialty Start Date End Date Shyann Bermudez PA [address] [place] [phone] PCP - General Physician Manager Environmental Health 10/24/24
--- OUTSIDE RECORDS SUMMARY | 2025-04-26 18:05 | XMS_ITS | Clinical Summary ---
Author Organization [facility] Facility Address [address] [place] [address], [place] [address] Care Team Providers Care Heat Treat Operator Name Role Phone Daniella Colon MD [...] to 49 Years) Discontinued 07/04/2015 [place] Care Teams Heat Treat Operator Relationship Specialty Start Date End Date Daniella Colon MD [address] [place] [address] [address] [place] [id number] PCP - General Internal Medicine 06/07/22
[2025-04-26 18:53] VITALS: BP 130/73; PULSE 65; RESP 18; TEMP 37; O2SAT 97
[2025-04-26 19:07] LABS: OBS Int Ctl Valid YES; OBS1 NEGATIVE (NEGATIVE)
[2025-04-26 20:00] VITALS: BP 132/85; PULSE 70; RESP 15; TEMP 36.9; O2SAT 100
[2025-04-26 20:22] LABS: Lipase 42 U/L (8-78)
[2025-04-26 22:00] VITALS: BP 130/75; PULSE 77; RESP 16; TEMP 36.9; O2SAT 100
[2025-04-26 22:29] VITALS: BP 130/75; PULSE 77; RESP 16; TEMP 36.9; O2SAT 100
== END 2025-04-26 22:29 | disposition home or self-care (01) ==
PROVIDERS: Emergency Medicine; Physician Assistant Medical; Emergency Provider Emergency Medicine; PCP Internal Medicine
DX: R10.13 Epigastric pain (principal); K92.1 Melena; Z79.899 Other long term (current) drug therapy
CPT/HCPCS: 36415; 74176; 80053; 82272; 83690; 83735; 85025; 85610; 86850; 86900; 86901; 99284

== ENCOUNTER 2025-04-30 10:03 | Day surgery (SDC) | payer MEDICARE, SELFPAY ==
--- OUTSIDE RECORDS SUMMARY | 2025-04-24 16:53 | XMS_ITS ---
Author Name Laura Barros NP Address [address] [place] [address] Phone [phone] [facility] Care Team Providers Care Hot Dipper Name Role Phone Laura Barros Unavailable [phone] [facility] Unavailable [phone] Unavailable Unavailable Unavailable OMID OLVERA Unavailable [phone] TYREE PEACOCK Unavailable [phone] DOMINIQUE CHINO Unavailable [phone] Shyann Bermudez Unavailable [phone] Reason for Referral Not Available Allergies, adverse [...] organ damage (headache, vision changes, chest pain)/ Registered Respiratory Technician on proper BP monitoring technique and reassess/ [...] 95 for video, modifier [address] [facility] [place]2023 Type 2 diabetes mellitus wit h other specified complicationHyperlipidemia, unspecifiedEssential (primary) hypertensionMalignant neoplasm of appendixMajor depressive disorder, recurrent, mildMigraine, unspecified, not intractable, without status migrainosusMorbid (severe) obesity due to excess caloriesBody mass index (BMI) 35.0-35.9, adult New patient, 30-44min 1 stable chronic or 2 minor; add modifier 95 for video, modifier [address] [facility] [place]2023 New patient, 30-44min 1 stable chronic or 2 minor; add modifier 95 for video, modifier [address] [facility] [place] 02/[place]/2023 New patient, 30-44min 1 stable chronic or 2 minor; add modifier 95 for video, modifier [address] [facility] [place]/2023 New patient, 30-44min 1 stable chronic or 2 minor; add modifier 95 for video, modifier [address] [facility] [place] 02/[place]/2023 New patient, 30-44min 1 stable chronic or 2 minor; add modifier 95 for video, modifier [address] [facility] [place] 02/[place]/2023 New patient, 30-44min 1 stable chronic or 2 minor; add modifier 95 for video, modifier [address] [facility] [place] 02/15/2023 Estab. patient 30-39min; chronic exacerbation, 2 stable chronic or 1 acute illness add add modifier 95 for video, (do not use for phone, instead use 75095-01) [facility] [place] 05[place]17[place]2024 Type 2 diabetes mellitus wit h [...] (do not use for phone, instead use 75026-50) [facility] [place]17[place] Estab. patient 30-39min; chronic exacerbation, 2 stable chronic or 1 acute illness add add modifier 95 for video, (do not use for phone, instead use 15148-49) [facility] [place]17/20[place] Estab. patient 30-39min; chronic exacerbation, 2 stable chronic or 1 acute illness add add modifier 95 for video, (do not use for phone, instead use 81509-17) [facility] [place]17/20[place] Estab. patient 30-39min; chronic exacerbation, 2 stable chronic or 1 acute illness add add modifier 95 for video, (do not use for phone, instead use 54148-02) [facility] [place]17/20[place] Estab. patient 30-39min; chronic exacerbation, 2 stable chronic or 1 acute illness add add modifier 95 for video, (do not use for phone, instead use 44823-91) [facility] [place]17/[place] Estab. patient 30-39min; chronic exacerbation, 2 stable chronic or 1 acute illness add add modifier 95 for video, (do not use for phone, instead use 07049-63) [facility] [place]17[place] Estab. patient 30-39min; chronic exacerbation, 2 stable chronic or 1 acute illness add add modifier 95 for video, (do not use for phone, instead use 26611-15) [facility] [place]17/20[place] Estab. patient 30-39min; chronic exacerbation, 2 stable chronic or 1 acute illness add add modifier 95 for video, (do not use for phone, instead use 44336-83) [facility] [place]/17/20[place] Estab. patient 30-39min; chronic exacerbation, 2 stable chronic or 1 acute illness add add modifier 95 for video, (do not use for phone, instead use 69338-37) [facility] [place] 05/17/2024 Vital Signs Date of Collection Vitals [...] tive Time Current Smoking Status Never smoker 2025-04-15 0 Sex Male History of Procedures Procedures Service Procedure code Service date Servicing provider Phone# New patient, 30-44min 1 stable chronic or 2 minor; add modifier 95 for video, modifier 93 for phone [id number] 2023-02-15 No Data Available No Data Available [...] (do not use for phone, instead use 77825-74) [id number] 2024-05-17 No Data Available No Data Availa [...] organ damage (headache, vision changes, chest pain)/ Registered Respiratory Technician on proper BP monitoring technique and reassess/ [...] Health Concerns Date Concern 2024-05-17 Visit completed usin g audio/video. Patient/Guardian agreed to visit via telehealth. Today, patient has chief complaint of: follow up care and comprehensive review.Reviewed Allergies, Medications, Active Medical conditions, past medical/surgical history, Social history. 2024-05-17 Most recent hospital stay(s) or ER visit(s) and precipitating factors: Denies
--- OUTSIDE RECORDS SUMMARY | 2025-04-24 16:54 | XMS_ITS | Clinical Summary ---
Author Organization [address] [facility] Address [address] [place] [address] Phone Care Team Providers Care Core Cutter Name Role Phone Shyann Bermudez Primary Care Provider [phone] Allergies Active Allergy Reactions Criticality Noted Date Comments Lisinopril 12/13/2024 Social History Tobacco Use Types Packs/Day Years Used Date Smoking Tobacco: Never Assessed Sex and Gender Information Value Date Recorded Sex Assigned at Male 03/28/2025 10:08 AM EDT Legal Sex Male 5:04 AM EST Gender Identity Male 03/28/2025 10:08 AM EDT Sexual Orientation Not on file Last Filed [...] 12/13/2024 3:50 PM EDT Plan of Treatment Health Maintenance Due Date Last Done Comments DTaP,Tdap,and Td Vaccines (1 - Tdap) 1984 Hepatitis B Vaccines (1 of 3 - 19+ 3-dose series) 1984 Pneumococcal Vaccine: 50+ Ye ars (1 of 2 - PCV) 1984 Zoster Vaccines (1 of 2) 2015 Depression Screening 08/15/2024 Cholesterol Screening (Lipid Panel) 10/24/2024 Colorectal Cancer Screening: Colonoscopy 10/24/2024 HIV Screening 10/24/2024 Hepatitis C Screening 10/24/2024 Social Influencers of Health Screening 10/24/2024 COVID-19 Vaccine ( - 2023-2 5 season) 2025 Influenza Vaccine (#1) 2025 RSV Immunization Adult [...] patient's age to complete this topic Insurance [employer] [id number] Care Teams Core Cutter Relationship Specialty Start Date End Date Shyann Bermudez PA [address] [place] [phone] PCP - General Physician Gis Software Developer 10/24/24
--- OUTSIDE RECORDS SUMMARY | 2025-04-24 16:54 | XMS_ITS | Clinical Summary ---
Author Organization [facility] Facility Address [address] [place] [address], [place] [address] Care Team Providers Care Communications Station Manager Name Role Phone Daniella Colon MD [...] to 49 Years) Discontinued 07/04/2015 Insurance Medicaid [place] Care Teams Communications Station Manager Relationship Specialty Start Date End Date Daniella Colon MD [address] [place] [address] [address] [place] [address] PCP - General Internal Medicine 06/07/22
--- NOTE | 2025-04-29 10:30 | HO.ANESPROP2 ---
Documented by User: Palma Joseph NP 04/29/25 10:32 HPI - Anesthesia Eval Consult details Narrative: 59 yr old male for upper endoscopy, colonoscopy H/O appendiceal carcinoma s/p surgery and chemo with last treatment 1 year ago Anemia: last blood transfusion 09/2024 Anesthesia Pre-Procedure Meds Is the patient on any of the following meds?: GLP1/DPP4 PMFSH Active Problems Active Problems: All Active Problems (Updated 04/27/25 @ 00:01 by Bryn Lynn) Orthostatic hypotension (Acute) Type 2 diabetes mellitus with hyperglycemia (Acute) Gastritis (Acute) GERD (gastroesophageal reflux disease) (Acute) Iron deficiency anemia (Acute) Anemia, chronic disease (Acute) Acute anemia (Acute) Acute hyperglycemia (Acute) Bright red rectal bleeding (Acute) Prolonged QT interval (Acute) Intra-abdominal abscess (Acute) JENNIFER (acute kidney injury) (Acute) Diarrhea (Acute) Primary appendiceal adenocarcinoma (Chronic) KYM (obstructive sleep apnea) (Acute) Varicose veins of right lower extremity with inflammation (Acute) History of colon cancer (Acute) Infected cyst of skin (Acute) Cellulitis of abdominal wall (Acute) Morbid obesity (Acute) Umbilical hernia (Acute) Obesity (BMI 30-39.9) (Acute) Dyslipidemia (Acute) HTN (hypertension) (Acute) Diabetic nephropathy associated with type 2 diabetes mellitus (Acute) Epidermal cyst (Acute) Past Medical History Medical History Colon cancer Anemia History of blood transfusion (09/20/24) History of colon cancer Infected cyst of skin Cellulitis of abdominal wall Eye inflammation Sleep apnea Ambulates with cane Back pain due to injury Morbid obesity Umbilical hernia Obesity (BMI 30-39.9) Dyslipidemia Diabetic nephropathy associated with type 2 diabetes mellitus Epidermal cyst HTN (hypertension) Diabetes type 2, controlled Family History Family History Father Diabetes Heart disease Mother Diabetes Heart disease Other No family history of cancer Family history of problems with anesthesia: No Surgical History Surgical History History of colon resection S/P right colectomy H/O colonoscopy S/P appendectomy History of umbilical hernia repair (~01/08/22) Hx of removal of cyst History of Problems with Anesthesia: No Social History Social History Household Members: Spouse Housing: House Are you a primary med care manager to a significant other at home: No Do you presently have visiting nurse or other home services: No Alcohol intake: never Comment: Ofirmev infusing at time of xfer Patient Tobacco Use Status: Never used Tobacco Use of substances other than those prescribed or required for medical reasons: No Are you DNR?: No Advance Directives: No Advance Directives Information Provided: Yes Poor oral hygiene: No service: No Current occupational status: disabled Meds Allergies Allergy/AdvReac Type Severity Reaction Status Date / Time oxaliplatin Allergy Intermediate Shortness Verified 04/26/25 17:26 of Breath lisinopril (LISINOPRIL) Allergy Mild RASH Verified 04/26/25 17:26 Home Medications ?Medication ?Instructions ?Recorded ?Confirmed ?Last Taken ?Type atorvastatin 10 mg tablet 10 mg PO BEDTIME 10/22/20 04/17/25 09/03/24 History carvedilol 12.5 mg tablet 12.5 mg PO BID 10/22/20 04/17/25 09/03/24 History cholecalciferol (vitamin D3) 25 25 mcg PO DAILY 10/22/20 04/17/25 09/03/24 History mcg (1,000 unit) capsule trazodone 150 mg tablet 150 mg PO BEDTIME 11/04/20 04/17/25 09/03/24 History sertraline 100 mg tablet 150 mg PO BEDTIME 01/04/22 04/17/25 09/03/24 History buspirone 10 mg tablet 10 mg PO DAILY 09/20/23 04/17/25 09/03/24 History clotrimazole 1 % topical cream 1 appl topical BID PRN Rash 09/20/23 04/17/25 09/03/24 History fluticasone propionate 50 1 - 2 spray intranasal DAILY PRN 04/09/24 04/17/25 09/03/24 History mcg/actuation nasal cold and allergies spray,suspension Exam Pertinent Lab Results Pertinent Lab Results: Laboratory Tests 04/26/25 17:40 WBC 5.3 RBC 3.86 L Hgb 9.6 L Hct 32.0 L Plt Count 117 L Sodium 145 Potassium 4.2 BUN 10 Creatinine 0.94 Assessment and Plan Final Anesthetic Review Family History of Problems with Anesthesia: No History of Problems with Anesthesia: No Documented by User: Vish Garcia MD 04/30/25 12:41 HPI - Anesthesia Eval Anesthesia Pre-Procedure Meds If yes to any meds - educate patient: Pt education - possibility of cancelled proc at provider's discretion PMFSH Past Medical History Medical History Colon cancer Anemia History of blood transfusion (09/20/24) History of colon cancer Infected cyst of skin Cellulitis of abdominal wall Eye inflammation Sleep apnea Ambulates with cane Back pain due to injury Morbid obesity Umbilical hernia Obesity (BMI 30-39.9) Dyslipidemia Diabetic nephropathy associated with type 2 diabetes mellitus Epidermal cyst HTN (hypertension) Diabetes type 2, controlled Family History Family History Father Diabetes Heart disease Mother Diabetes Heart disease Other No family history of cancer Surgical History Surgical History History of colon resection S/P right colectomy H/O colonoscopy S/P appendectomy History of umbilical hernia repair (~01/08/22) Hx of removal of cyst Social History Social History Household Members: Spouse Housing: House Are you a primary med care manager to a significant other at home: No Do you presently have visiting nurse or other home services: No Alcohol intake: never Comment: Ofirmev infusing at time of xfer Patient Tobacco Use Status: Never used Tobacco Use of substances other than those prescribed or required for medical reasons: No Are you DNR?: No Advance Directives: No Advance Directives Information Provided: Yes Poor oral hygiene: No service: No Current occupational status: disabled Meds Allergies Allergy/AdvReac Type Severity Reaction Status Date / Time oxaliplatin Allergy Intermediate Shortness Verified 04/26/25 17:26 of Breath lisinopril (LISINOPRIL) Allergy Mild RASH Verified 04/26/25 17:26 Home Medications ?Medication ?Instructions ?Recorded ?Confirmed ?Last Taken ?Type atorvastatin 10 mg tablet 10 mg PO BEDTIME 10/22/20 04/17/25 09/03/24 History carvedilol 12.5 mg tablet 12.5 mg PO BID 10/22/20 04/17/25 09/03/24 History cholecalciferol (vitamin D3) 25 25 mcg PO DAILY 10/22/20 04/17/25 09/03/24 History mcg (1,000 unit) capsule trazodone 150 mg tablet 150 mg PO BEDTIME 11/04/20 04/17/25 09/03/24 History sertraline 100 mg tablet 150 mg PO BEDTIME 01/04/22 04/17/25 09/03/24 History buspirone 10 mg tablet 10 mg PO DAILY 09/20/23 04/17/25 09/03/24 History clotrimazole 1 % topical cream 1 appl topical BID PRN Rash 09/20/23 04/17/25 09/03/24 History fluticasone propionate 50 1 - 2 spray intranasal DAILY PRN 04/09/24 04/17/25 09/03/24 History mcg/actuation nasal cold and allergies spray,suspension Exam Exam Date and Time: 04/30/2025 Airway Loose/Missing/Broken Teeth: Yes (normal) Heart: normal Lungs: normal Other: normal Assessment and Plan Assessment Anesthesia Assessment: Anesthesia Plan Discussed and Chart Reviewed Final Anesthetic Review NPO: Yes ASA Class: II Final Preanesthetic Review: No Changes in Pt Med Stat, Meds/Allgs Chart Reviewed, Consent Obtained/Reviewed and Anes Risks/Benef Reviewed Patient Risk: Low Procedure Risk: Low Anesthetic Plan Anesthetic Plan: MAC: Disposition: Standard PACU
[2025-04-30 10:30] VITALS: BMI 37.7
[2025-04-30 10:38] VITALS: BP 153/95; PULSE 74; RESP 16; TEMP 36.5; O2SAT 94
--- NOTE | 2025-04-30 10:43 | MHC.SHP ---
Pre-Procedural Eval Section A - 24 Hr Update-Section A only Date of Service: 04/30/25 Section B - Complete if H&P > 30 days Chief Complaint: Malignant neoplasm of appendix,anemia Details of Present Illness: Medical History Anemia History of blood transfusion (09/20/24) History of colon cancer Infected cyst of skin Cellulitis of abdominal wall Eye inflammation Sleep apnea Ambulates with cane Back pain due to injury Morbid obesity Umbilical hernia Obesity (BMI 30-39.9) Dyslipidemia Diabetic nephropathy associated with type 2 diabetes mellitus Epidermal cyst HTN (hypertension) Diabetes type 2, controlled Surgical History History of colon resection S/P right colectomy H/O colonoscopy S/P appendectomy History of umbilical hernia repair (~01/08/22) Hx of removal of cyst Present Medications: see Short Stay Collaborative assessment Allergies: Allergies Allergy/AdvReac Type Severity Reaction Status Date / Time oxaliplatin Allergy Intermediate Shortness Verified 04/26/25 17:26 of Breath lisinopril (LISINOPRIL) Allergy Mild RASH Verified 04/26/25 17:26 Review of Systems Review of Systems Comment: Ten point ROS negative Exam Exam Comment: Gen appear: No acute distress HEENT: no icterus Chest: No overt resp distress Abd: soft, nontender, nondistended Psych: Stable affect, answering questions appropriately Neuro: A/Ox3 noted to move all extremities spontaneously Ext: no peripheral edema Plan Diagnosis/Plan: Unchanged I have reviewed the history and physical and performed a pertinent physical examination on my patient. No changes have occurred unless specified. Time Spent With Patient Time: Total time managing care of this patient today ____ minutes.
[2025-04-30 10:50] LABS: Glucose, Whole Blood 94 mg/dL (60-115)
[2025-04-30] MEDS: Lactated Ringers 1,000 ML 100 ML IVCONT (11:01)
[2025-04-30 13:45] VITALS: BP 111/73; PULSE 86; RESP 16; TEMP 37.1; O2SAT 95
--- NOTE | 2025-04-30 13:48 | P.OPN-COLO_ITS ---
Colonoscopy Operative Note Operative Note Date of Service: 04/30/25 Narrative: Procedure: Upper endoscopy and colonoscopy Indication: Anemia, hx of appendiceal ca Endoscopist: Jil Robles MD Anesthesia Provider: Dr Garcia Anesthesia type: MAC Instrument: [id number] and [id number] EGD Procedure:?? The procedure, indications, preparation and potential complications were reviewed with the patient, who indicated understanding and gave written informed consent to proceed. The endoscope was introduced through the mouth, and advanced to the 2nd part of the duodenum. The mucosa was carefully examined on slow withdrawal of the endoscope. Pt tolerated the procedure well. There were no immediate complications.? EGD Findings:? * Esophagus:? Normal esophageal mucosa was noted. The Z-line was at 40 cm. * Stomach:? Normal gastric mucosa. Retroflexion was performed in the cardia. * Duodenum:? Normal duodenal mucosa. Colonoscopy Procedure:? The patient desaturated briefly towards the end of the endoscopy, an LMA was therefore placed before proceeding with colonoscopy. See anesthesia flowsheet for complete documentation. The patient was then turned for the colonoscopy. A digital rectal exam was performed which was abnormal for external hemorrhoids.? A distal attachment cap was affixed to the tip of the scope and the colonoscope was then inserted through the anus and advanced through the colon and advanced to the ileocolonic anastomosis and christian-terminal ileum. Mucosa was carefully examined under high definition white light as the instrument was slowly withdrawn in a retrograde panoramic fashion. Retroflexion was performed in rectum. The procedure was not difficult. The quality of the prep was BBPS: 3+3+3 = adequate Withdrawal time 16 minutes Limitations: No limitations Findings: Mucosa: The ileocolonic anastomosis appeared healthy and without any recurrence. Cold forceps biopsies were taken for histology. The terminal ileum was deeply intubated to almost 25 cm. Endomark was placed at the deepest extent examined. Protruding lesions: * One sessile polyp of size 2 mm noted in the descending colon. Cold forceps polypectomy was performed. The polyp was completely removed and retrieved. * Medium internal hemorrhoids without stigmata of recent bleeding. Impression: 1. Normal esophagus 2. Normal stomach 3. Normal duodenum 4. Normal colon ileocolonic anastmosis and terminal ileum mucosa (biopsy, endomark) 5. Internal and external hemorrhoids Recommendations:?? * Follow-up path results * Avoid NSAIDs * Results of most recent CT abd/pel reviewed, would recommend PET/CT for evaluation and r/o peritoneal carcinomatosis * Hold off repeat small bowel VCE until further imaging
[2025-04-30 14:00] VITALS: BP 125/92; PULSE 83; RESP 16; O2SAT 98
[2025-04-30 14:14] VITALS: BP 123/90; PULSE 84; RESP 16; TEMP 36.7; O2SAT 95
== END 2025-04-30 14:49 | disposition home or self-care (01) ==
PROVIDERS: PCP Internal Medicine; Visit Provider Internal Medicine
PROC: (CPT 45380; principal; 2025-04-30 11:50)
DX: C18.1 Malignant neoplasm of appendix (principal); K63.5 Polyp of colon; K63.89 Other specified diseases of intestine; K64.8 Other hemorrhoids; K64.4 Residual hemorrhoidal skin tags; D50.9 Iron deficiency anemia, unspecified; R10.31 Right lower quadrant pain; E11.9 Type 2 diabetes mellitus without complications
CPT/HCPCS: 45380; 45381; 43235; 82947; 88305; J0330; J2003; J2704; J3010

== ENCOUNTER → 2025-04-30 10:03 | Outpatient (BNV) | payer MEDICARE, SELFPAY | PROVIDERS: PCP Internal Medicine; Visit Provider Internal Medicine | DX: D64.9 Anemia, unspecified (principal); Z85.09 Personal history of malignant neoplasm of other digestive organs; D12.4 Benign neoplasm of descending colon; K64.8 Other hemorrhoids | CPT/HCPCS: 43235; 45380 ==

== ENCOUNTER 2025-05-02 15:45 | Outpatient (REF) | payer MEDICARE, SELFPAY ==
[2025-05-02 16:06] LABS: MANUAL DIFF FLAG NO
--- OUTSIDE RECORDS SUMMARY | 2025-05-02 16:58 | XMS_ITS | Clinical Summary ---
Author Organization [address] [facility] Address [address] [place] [address] Phone Care Team Providers Care Water Project Manager Name Role Phone Shyann Bermudez Primary Care Provider [phone] Allergies Active Allergy Reactions Criticality Noted Date [...] to complete this topic Insurance [employer] [id number] Care Teams Water Project Manager Relationship Specialty Start Date End Date Shyann Bermudez PA [address] [place] [id number] PCP - General Physician Data Reporting Analyst 10/24/24
--- OUTSIDE RECORDS SUMMARY | 2025-05-02 16:58 | XMS_ITS | Clinical Summary ---
Author Organization [facility] Facility Address [address] [place] [address], [place] [address] Care Team Providers Care Construction Laborer Name Role Phone Daniella Colon MD Primary [...] to 49 Years) Discontinued 07/04/2015 Insurance [place] Care Teams Construction Laborer Relationship Specialty Start Date End Date Daniella Colon MD [address] [place] [address] [address] [place] [id number] PCP - General Internal Medicine 06/07/22
[2025-05-02 17:03] LABS: Hematocrit 32.3 % (42.0-52.0); Hemoglobin 9.4 g/dl (14.0-18.0); Imm Gran Abs Auto 0.02 X10*3/uL (0.00-0.03); Imm Gran Pct Auto 0.4 % (0.0-0.4); Lymphocytes Absolute Auto 1.2 X10*3/uL (1.2-4.9); Mean Corpuscular HGB Conc 29.1 g/dl (31.0-36.0); Mean Corpuscular Hemoglobin 25.0 pg (27.0-33.0); Mean Corpuscular Volume 85.9 fL (80.0-98.0); NRBC Abs Auto 0.000 X10*3/uL (0.0-0.012); NRBC Pct Auto 0.0 /100WBC (0.0-0.2); Platelet Count 141 X10*3/uL (160-400); Red Blood Count 3.76 X10*6/uL (4.60-5.80); White Blood Count 4.9 X10*3/uL (4.8-10.8)
[2025-05-02 17:55] LABS: Ferritin 55 ng/mL (20-250)
== END 2025-05-02 15:46 | disposition home or self-care (01) ==
LOC: HO.LAB 15:45
PROVIDERS: PCP Internal Medicine; Visit Provider Internal Medicine
DX: D50.9 Iron deficiency anemia, unspecified (principal)
CPT/HCPCS: 36415; 82728; 85025; 86850; 86900; 86901

== ENCOUNTER 2025-06-03 09:36 | Outpatient (AMB) | payer MEDICARE, SELFPAY ==
[2025-06-03 09:38] VITALS: BP 142/84; PULSE 71; O2SAT 95
--- NOTE | 2025-06-03 09:38 | A.OFFVIS_ITS ---
Vital Signs 06/03/25 09:38 Weight 257 lb 7.999 oz BP 142/84 H Blood Pressure Location Rt brachial Position Sitting Pulse 71 Pulse Source Pulse Oximeter Pulse Oximetry (%) 95 Oxygen Delivery Method Room Air Intake Visit Reasons: T2DM Intake Note: Patient present today for Type 2 Diabetes Mellitus Last Diabetic eye exam: Last exam was on 05/2025 Last Podiatry Visit: Last seen about 5 months ago. Random Glucose: 105 mg/dl HgA1C: 5.0% Purifying Plant Operator Required: No Accompanied by: Spouse Allergies oxaliplatin Allergy (Intermediate, Verified 06/03/25 09:45) Shortness of Breath lisinopril (LISINOPRIL) Allergy (Mild, Verified 06/03/25 09:45) RASH Medication List - Last Reconciled 06/03/25 by Janette Sheikh PA-C alcohol swabs 1 pad topical QIDACHS atorvastatin 10 mg PO BEDTIME blood sugar diagnostic (FreeStyle Lite Strips) Test BID or as directed. blood-glucose meter (FreeStyle Lite Meter kit) As Directed blood-glucose sensor (FreeStyle Deja 3 Plus Sensor device) Use daily As directed to monitor glucose buspirone 10 mg PO DAILY carvedilol 12.5 mg PO BID cholecalciferol (vitamin D3) 25 mcg PO DAILY clotrimazole 1% 1 appl topical BID PRN ferrous sulfate 325 mg PO BID fluticasone propionate 50 mcg/actuation 1 - 2 sprays intranasal DAILY PRN glucose (Dex4 Glucose) 16 grams (4 x 4 gram) PO Q15M PRN lancets (FreeStyle Lancets) test blood glucose BID or as directed. omeprazole 20 mg PO DAILY@0630 peg 3350-electrolytes 236-22.74-6.74 -5.86 gram 240 mL PO Q10M pen needle, diabetic Use four times a day or as directed. polyethylene glycol 3350 (Miralax) 238 grams PO ONCE sertraline 150 mg PO BEDTIME simethicone (Gas Relief (simethicone)) 160 mg (2 x 80 mg) PO ONCE PRN tirzepatide (Mounjaro) 7.5 mg (0.5 mL) subcut QWEEK trazodone 150 mg PO BEDTIME HPI HPI T2DM: Details: Patient is a 59-year-old male with a significant past medical history of hypertension, hyperlipidemia, type 2 diabetes, obesity, previous JENNIFER, anemia and GERD presenting today for consultation regarding diabetes. Endo: Dm-was diagnosed with diabetes around 2009. His A1c today is 5. He is currently on Lantus 25 units daily and mounjaro 7.5 mg weekly. He states that he is tolerating this very well and has noticed a little bit of appetite suppression with the Mounjaro. He has lost about 20 lbs He does not tolerate any doses of metformin. It causes severe GI upset. Actos causes lower leg swelling. Bydureon was ineffective (tried max dose without changes), trulicity was effective but higher doses caused nausea, ozempic he did not note any improvement of glucose readings and had more nausea than he did with trulicity. cgm- 90% usage, G mi 6.0%, average glucose 114. 0% very hyperglycemic, 1% hyperglycemic, 98% in range, 1% hypoglycemic -hypoglycemia rare but occurring overnight/morning. Sometimes he does not check his fingerstick blood sugar and sometimes he is asymptomatic with this. He does treat the low blood sugars with glucose tabs or candy. CV: Blood pressure today in the office is 154/82. He is currently managed with carvedilol 12.5 mg twice a day. Cholesterol is managed with atorvastatin 10 mg. No myalgias. Last LDL was 51. [facility] Medical History Colon cancer Anemia History of blood transfusion (09/20/24) History of colon cancer Infected cyst of skin Cellulitis of abdominal wall Eye inflammation Sleep apnea Ambulates with cane Back pain due to injury Morbid obesity Umbilical hernia Obesity (BMI 30-39.9) Dyslipidemia Diabetic nephropathy associated with type 2 diabetes mellitus Epidermal cyst HTN (hypertension) Diabetes type 2, controlled Surgical History History of colon resection S/P right colectomy H/O colonoscopy S/P appendectomy History of umbilical hernia repair (~01/08/22) Hx of removal of cyst Family History Father Diabetes Heart disease Mother Diabetes Heart disease Other No family history of cancer Social History Household Members: Spouse Housing: House Are you a primary hospice patient care secretary to a significant other at home: No Do you presently have visiting nurse or other home services: No Alcohol intake: never Comment: Ofirmev infusing at time of xfer Patient Tobacco Use Status: Never used Tobacco service: No Current occupational status: disabled Physical Exam Vital Signs: Last Vital Signs Pulse 71 06/03/25 09:38 BP 142/84 H 06/03/25 09:38 Pulse Ox 95 06/03/25 09:38 Oxygen Delivery Method Room Air 06/03/25 09:38 Const Orientation/consciousness: patient oriented x3 HEENT Ears: hearing grossly normal bilaterally Neck Thyroid: Thyroid normal Lymphatic: no lymphadenopathy noted Resp Auscultation: clear to auscultation bilaterally Cardio Rate: regular rate Rhythm: regular rhythm Heart sounds: S1 normal heart sound present and S2 normal heart sound present Skin General skin exam: no rashes or lesions noted Neuro General: patient oriented x3, gait normal and no focal motor deficits Results AMB Hemoglobin A1c AMB Hemoglobin A1c 5.0 % Last Edit by LIZZIE Vieyra on 06/03/25 09:56 Results Reviewed Results Reviewed: Laboratory Last Values Glucose (Clinic) 105 mg/dL (60-115) 06/03/25 09:47 Laboratory Tests 02/20/25 04/26/25 11:12 17:40 Creatinine 0.94 Estimated GFR > 60 Random Glucose 101 AST 27 ALT 18 Triglycerides 97 Cholesterol 113 LDL Cholesterol, Calc 51 HDL Cholesterol 43 Assessment & Plan Assessment & Plan (1) Type 2 diabetes mellitus with hyperglycemia: Code(s): E11.65 - Type 2 diabetes mellitus with hyperglycemia Category: Medical Plan: Recently controlled stop Lantus to 25 units. Increase Mounjaro to 10 mg weekly. Reviewed rule of 15. Has back up testing supplies (2) Morbid obesity: Code(s): E66.01 - Morbid (severe) obesity due to excess calories Category: Medical Plan: Encouraged him to continue with diet and weight loss. I have increased the Mounjaro. (3) HTN (hypertension): Code(s): I10 - Essential (primary) hypertension Category: Medical Qualifiers: Hypertension type: essential hypertension Qualified Code(s): I10 - Essential (primary) hypertension Plan: Continue current regimen (4) Dyslipidemia: Code(s): E78.5 - Hyperlipidemia, unspecified Category: Medical Plan: Last LDL was 51. Continue the atorvastatin 10 mg nightly. Orders: Orders AMB Hemoglobin A1c Today E11.65 - Type 2 diabetes mellitus with hyperglycemia, Z13.9 - Encounter for screening, unspecified Medications: New tirzepatide (Mounjaro) 10 mg (0.5 mL) subcut QWEEK 2 mL 5RF tirzepatide (Mounjaro) 10 mg (0.5 mL) subcut QWEEK 6 mL 3RF Discontinued tirzepatide (Mounjaro) Discontinued Reason: Doctor's Order 7.5 mg (0.5 mL) subcut QWEEK 2 mL 5RF Coding Level of Care Code Est Pt Level 4 (77373) Complex EM visit Add On G2211 Diagnoses Type 2 diabetes mellitus with hyperglycemia E11.65 Morbid obesity E66.01 Essential hypertension I10 Hypertension type: essential hypertension Dyslipidemia E78.5
[2025-06-03 09:51] LABS: Glucose, Whole Blood 105 mg/dL (60-115)
--- OUTSIDE RECORDS SUMMARY | 2025-06-03 10:48 | XMS_ITS ---
Author Name Laura Barros NP Arian Address [address] [place] [address] Phone [phone] [facility] Care Team Providers Care Chief Fishery Division Name Role Phone Laura Barros Unavailable [phone] [facility] Unavailable [phone] Julia Vann Unavailable [phone] OMID OLVERA Unavailable [phone] TYREE PEACOCK Unavailable [phone] DOMINIQUE CHINO Unavailable [phone] Shyann Bermudez Unavailable [phone] Reason for Referral Not Available Allergies, adverse [...] 150 mg Tab TAKE 1 TABLET BY [facility] EVERYDAY AT BEDTIME 2022-10-21 No Data Available Atorvastatin Calcium 10 mg Tab TAKE 1 TA BLET BY MOUTH EVERYDAY AT BEDTIME 2022-02-16 No Data Available busPIRone 10 mg Tab TAKE 1 TABLET BY [facility] EVERY DAY IN THE MORNING 2022-10-21 No Data Available Sertraline 100 mg Tab TAKE ONE AND ONE H HALFWAY (1.5) TABLETS BY MOUTH DAILY 2022-10-21 No [...] organ damage (headache, vision changes, chest pain)/ Leak Operator Paraffin Plant on proper BP monitoring technique and reassess/ [...] 95 for video, modifier 93 for phone [facility]2023 Type 2 diabetes mellitus wit h other specified complicationHyperlipidemia, unspecifiedEssential (primary) hypertensionMalignant neoplasm of appendixMajor depressive disorder, recurrent, mildMigraine, unspecified, not intractable, without status migrainosusMorbid (severe) obesity due to excess caloriesBody mass index (BMI) 35.0-35.9, adult New patient, 30-44min 1 stable chronic or 2 minor; add modifier 95 for video, modifier 93 for phone [facility] 02[place]23 New patient, 30-44min 1 stable chronic or 2 minor; add modifier 95 for video, modifier 93 for phone [facility] 02/15/20[place] New patient, 30-44min 1 stable chronic or 2 minor; add modifier 95 for video, modifier 93 for phone [facility] New patient, 30-44min 1 stable chronic or 2 minor; add modifier 95 for video, modifier 93 for phone [facility] 02[place] New patient, 30-44min 1 stable chronic or 2 minor; add modifier 95 for video, modifier 93 for phone [facility] 02[place] New patient, 30-44min 1 stable chronic or 2 minor; add modifier 95 for video, modifier 93 for phone [facility] Estab. patient 30-39min; chronic exacerbation, 2 stable chronic or 1 acute illness add add modifier 95 for video, (do not use for phone, instead use 43887-54) [facility] 05[place]17/2024 Type 2 diabetes mellitus wit h [...] (do not use for phone, instead use 76195-26) [facility] [place] Estab. patient 30-39min; chronic exacerbation, 2 stable chronic or 1 acute illness add add modifier 95 for video, (do not use for phone, instead use 40764-84) [facility]17/[place] Estab. patient 30-39min; chronic exacerbation, 2 stable chronic or 1 acute illness add add modifier 95 for video, (do not use for phone, instead use 90107-01) [facility]17/[place] Estab. patient 30-39min; chronic exacerbation, 2 stable chronic or 1 acute illness add add modifier 95 for video, (do not use for phone, instead use 71063-13) [facility]17/[place] Estab. patient 30-39min; chronic exacerbation, 2 stable chronic or 1 acute illness add add modifier 95 for video, (do not use for phone, instead use 90381-11) [facility] Estab. patient 30-39min; chronic exacerbation, 2 stable chronic or 1 acute illness add add modifier 95 for video, (do not use for phone, instead use 35228-06) [facility] Estab. patient 30-39min; chronic exacerbation, 2 stable chronic or 1 acute illness add add modifier 95 for video, (do not use for phone, instead use 03027-24) [facility] Estab. patient 30-39min; chronic exacerbation, 2 stable chronic or 1 acute illness add add modifier 95 for video, (do not use for phone, instead use 08126-80) [facility]17/[place] Estab. patient 30-39min; chronic exacerbation, 2 stable chronic or 1 acute illness add add modifier 95 for video, (do not use for phone, instead use 33053-42) [facility] 05[place]2024 Vital Signs Date of Collection Vitals [...] tive Time Current Smoking Status Never smoker 2025-05-16 0 Sex Male History of Procedures Procedures Service Procedure code Service date Servicing provider Phone# New patient, 30-44min 1 stable chronic or 2 minor; add modifier 95 for video, modifier 93 for phone [id number] 2023-02-15 No Data Available No Data Available [...] (do not use for phone, instead use 66010-43) 24014 2024-05-17 No Data Available No Data Availa [...] organ damage (headache, vision changes, chest pain)/ Leak Operator Paraffin Plant on proper BP monitoring technique and reassess/ [...]
--- OUTSIDE RECORDS SUMMARY | 2025-06-03 10:48 | XMS_ITS | Clinical Summary ---
Author Organization [facility] Address [address] [place] [address] Phone Care Team Providers Care Supervisor Shipping Room Name Role Phone Shyann Bermudez Primary Care Provider Allergies Active Allergy Reactions Criticality Noted Date Comments Lisinopril 12/13/2024 Encounters Date Type Department Care Team Description 05/22/2025 9:17 AM EDT - 05/22/2025 11:59 PM EDT Hospital Encounter [facility] PET Scan [address] [place] [id number] Secondary malignant neoplasm of retroperitoneum and peritoneum (CMS/HCC V24, CMS/HCC V28); Malignant neoplasm of appendix (CMS/HCC V24, CMS/HCC V28) Discharge Disposition: Home or Self Care from Last 3 Months Social History Tobacco [...] Health Maintenance Due Date Last Done Comments Colorectal Cancer Screening: Colonoscopy 1965 Diabetes: Annual GFR (Glomerular Filtration Rate) 1965 Diabetes: Annual Foot Exam 1975 Diabetes: Annual Retina Eye Exam 1975 Hepatitis B Vaccines (1 of 3 - 19+ 3-dose series) 1984 Pneumococcal Vaccine: 50+ Years (1 of 2 - PCV) 1984 RSV Immunization Adult Patients (1 - Risk 50-74 years 1-dose series) 2015 Depression Screening 08/15/2024 Cholesterol Screening (Lipid Panel) 10/24/2024 HIV Screening 10/24/2024 Hepatitis C Screening 10/24/2024 Social Influencers of Health Screening 10/24/2024 COVID-19 Vaccine ( - 2024-2 6 season) 2025 08/03/2021, 01/02/2021, 12/12/2020 Diabetes: Annual Urine Albumin-Creatinine Ratio (uACR) 05/11/2025 Diabetes: Blood Sugar Contro l Test (HGBA1C) 05/11/2025 Hypertension/CHF/CAD Annual BMP Blood Test 05/11/2025 DTaP,Tdap,and Td Vaccines (3 - Td or Tdap) 03/21/2033 03/21/2023, 05/22/2020 Zoster Vaccines Completed 02/06/2024, 11/26/2023 Influenza Vaccine Completed 04/20/2025, 10/17/2012 HIB Vaccines Aged Out No longer eligi [...] to complete this topic RSV Immunization Patients Under 20 months Aged Out No longer eligible b ased on patient's age to complete this topic Varicella Vaccines Aged Out No longer eligible based on patient's age to complete this topic Procedures Procedure Name Priority Date/Time Associated Diagnosis Comments PET CT SKULL TO MID THIGH INITIAL Routine 05/22/2025 11:40 AM EDT Secondary malignant neoplasm of retroperitoneum and peritoneum (CMS/HCC V24, CMS/HCC V28) Malignant neoplasm of appendix (CMS/HCC V24, CMS/HCC V28) from Last 3 Months Results * PET CT Skull to Mid Thigh Initial (05/22/2025 11:40 AM EDT) Anatomical Region Laterality Modality Body Radiographic Lashonda ging 05/29/2025 12:4 0 PM EDT Impressions 05/29/2025 1:11 PM EDT Impression: Focal FDG uptake within a thickened loop of ileum is nonspecific but raises concern for neoplasm, this uptake could be related to an inflammatory process, though there is no focal uptake in bowel loops elsewhere to this degree. Additionally there is some adjacent mesenteric infiltration with low level FDG uptake and some nodes in the right lower quadrant with mild FDG uptake. -------- FINAL REPORT -------- Dictated By: Radha Suarez Dictated Date: 05/29/2025 12:40 ET Assigned Physician: Radha Suarez Reviewed and Electronically Signed By: Radha Suarez Signed Date: 05/29/2025 13:11 ET Workstation ID: [id number] Transcribed By: Self Edit Transcribed Date: 05/29/2025 12:40 ET Narrative 05/29/2025 1:[address] Scan CLINICAL HISTORY: SECONDARY MALIGNANT NEOPLASM OF RETROPERITONEUM AND PERITONEUM . Technique: The patient received an intravenous injection of fluorine 18 fluorodeoxyglucose. After a short delay a whole body PET scan was obtained from the skull through midthighs. Additionally a low dose, unenhanced CT scan was acquired for attenuation correction and anatomic localization. The CT portion of the examination was done strictly for attenuation correction and is not a true diagnostic CT examination. Total DLP: 1258 mGy/cm Blood glucose level in mg/dl: 108 FDG dose in mCi: 12 Comparison: Outside PET examination 02/09/2023 Findings: Head and Neck: No hypermetabolic abnormality. Presumed physiologic muscular uptake. Chest: No hypermetabolic abnormality. Right chest wall port. Coronary calcifications and cardiomegaly. Abdomen and Pelvis: Conglomerate of lymph nodes in the right lower quadrant SUVmax = 3.95. There is some mesenteric thickening adjacent to thickened loops of ileum in the right lower quadrant SUVmax = 2.5, the adjacent thickened loop of ileum demonstrates focal FDG uptake, SUVmax = 8. These findings were now present in the prior PET in 2022. Right hemicolectomy. Fat-containing ventral hernias. Musculoskeletal: No hypermetabolic abnormality. Procedure Note Radha Suarez MD - 05/29/[address] Scan CLINICAL HISTORY: SECONDARY MALIGNANT NEOPLASM OF RETROPERITONEUM ANDPERITONEUM . Technique: The patient received an intravenous injection of fluorine 18fluorodeoxyglucose. After a short delay a whole body PET scan wasobtained from the skull through midthighs. Additionally a low dose,unenhanced CT scan was acquired for attenuation correction and anatomiclocalization. The CT portion of the examination was done strictly forattenuation correction and is not a true diagnostic CT examination. TotalDLP: 1258 mGy/cm Blood glucose level in mg/dl: 108 FDG dose in mCi: 12 Comparison: Outside PET examination 02/09/2023 Findings: Head and Neck: No hypermetabolic abnormality. Presumed physiologicmuscular uptake. Chest: No hypermetabolic abnormality. Right chest wall port. Coronarycalcifications and cardiomegaly. Abdomen and Pelvis: Conglomerate of lymph nodes in the right lowerquadrant SUVmax = 3.95. There is some mesenteric thickening adjacent tothickened loops of ileum in the right lower quadrant SUVmax = 2.5, theadjacent thickened loop of ileum demonstrates focal FDG uptake, SUVmax =8. These findings were now present in the prior PET in 2022. Righthemicolectomy. Fat-containing ventral hernias. Musculoskeletal: No hypermetabolic abnormality. IMPRESSION: Impression: Focal FDG uptake within a thickened loop of ileum is nonspecific butraises concern for neoplasm, this uptake could be related to aninflammatory process, though there is no focal uptake in bowel loopselsewhere to this degree. Additionally there is some adjacent mesenteric infiltration with low levelFDG uptake and some nodes in the right lower quadrant with mild FDGuptake. -------- FINAL REPORT -------- Dictated By: Radha Suarez Dictated Date: 05/29/2025 12:40 ET Assigned Physician: Radha Suarez Reviewed and Electronically Signed By: Radha Suarez Signed Date: 05/29/2025 13:11 ET Workstation ID: [id number] Transcribed By: Self Edit Transcribed Date: 05/29/2025 12:40 ET us Jil Robles MD IMG NM PROCEDURES Final Result from Last [address] [place] [address] [place] [address] [facility] [id number] Care Teams Supervisor Shipping Room Relationship Specialty Start Date End Date Shyann Bermudez PA [address] [place] [address] [address] [place] [phone] PCP - General Physician Table Cut Off Saw Operator 10/24/24
--- OUTSIDE RECORDS SUMMARY | 2025-06-03 10:49 | XMS_ITS | Clinical Summary ---
Author Organization [facility] Facility Address [address] [place] [address], [place] [address] Care Team Providers Care Legal Mediator Name Role Phone Daniella Colon MD Primary Care Provider [phone] Social History Tobacco Use Types Packs/Day Years [...] to 49 Years) Discontinued 07/04/2015 Insurance Medicaid [place] Care Teams Legal Mediator Relationship Specialty Start Date End Date Daniella Colon MD [address] [place] [address] 1 [place] [address] PCP - General Internal Medicine 06/07/22
== END 2025-06-03 10:03 | disposition home or self-care (01) ==
LOC: HO.ENCR 09:37
PROVIDERS: PCP Internal Medicine; Visit Provider Physician Assistant
DX: E11.65 Type 2 diabetes mellitus with hyperglycemia (principal); E66.01 Morbid (severe) obesity due to excess calories; I10 Essential (primary) hypertension; E78.5 Hyperlipidemia, unspecified; Z13.9 Encounter for screening, unspecified

== ENCOUNTER → 2025-06-03 09:36 | Outpatient (BNVA) | payer MEDICARE, SELFPAY | PROVIDERS: PCP Internal Medicine; Visit Provider Physician Assistant | DX: E11.65 Type 2 diabetes mellitus with hyperglycemia (principal); E66.01 Morbid (severe) obesity due to excess calories; I10 Essential (primary) hypertension; E78.5 Hyperlipidemia, unspecified | CPT/HCPCS: 82947; 83036; 99212 ==

== ENCOUNTER → 2025-06-07 15:08 | Outpatient (BNV) | payer MEDICARE, SELFPAY | PROVIDERS: PCP Internal Medicine; Visit Provider Radiology Diagnostic Radiology | DX: K43.9 Ventral hernia without obstruction or gangrene (principal) | CPT/HCPCS: 72197; 74183 ==

== ENCOUNTER 2025-06-07 15:14 | Outpatient (REF) | payer MEDICARE, SELFPAY ==
--- NOTE | ~2025-06-07 | MR_ITS ---
EXAMINATION: MR ABDOMEN WITHOUT THEN WITH IV CONTRAST, MR PELVIS WITHOUT THEN WITH IV CONTRAST HISTORY: Thickening of small bowel/ileum with lymphadenopathy COMPARISON: Correlation is made with two CT scans of the abdomen and pelvis dated 04/26/2025. TECHNIQUE: Axial in and out of phase T1-weighted gradient echo, axial diffusion weighted, and axial and coronal HASTE T2 with fat saturation images were obtained through the abdomen. Subsequently, fat suppressed axial and coronal T1-weighted images were obtained after the intravenous administration of mL Gadavist. FINDINGS: Liver: There is loss of signal intensity in the liver on in phase imaging, compatible with iron overload. There is no enhancing liver mass. The hepatic and portal veins are patent. There is no intrahepatic biliary dilatation. Gallbladder/biliary tree: No gallstones are identified. The common bile duct is normal in caliber. No intraluminal filling defects are identified to suggest choledocholithiasis. Spleen: The spleen is unremarkable. Pancreas: The pancreas is unremarkable. There is no enhancing pancreatic mass. The pancreatic duct is normal in caliber. Adrenals: The adrenal glands are unremarkable. Kidneys: The kidneys are unremarkable. There is no hydronephrosis. Lymph nodes: There is conglomerate nodularity in the right mid abdomen, consistent with lymphadenopathy. Individual nodes measure up to 2.3 cm. Fluid: There is no ascites in the upper abdomen. Visualized bowel: The patient is status post ascending colectomy. There is a prominent loop of small bowel in the right lower quadrant which is mildly dilated with slight tethering of the adjacent mesenteric fat. No definite enhancing mass is identified. There may be minimal wall thickening. The degree of bowel dilatation and wall thickening is less than on the prior CT scans. Abdominal wall: Multiple fat-containing periumbilical ventral hernias are again noted. Visualized bones: The visualized bones demonstrate normal marrow signal intensity. MR/MR abdomen wo/w con IMPRESSION: 1. Findings consistent with mesenteric lymphadenopathy in the right lower quadrant as noted on CT. 2. Prominent loop of small bowel in the right lower quadrant which demonstrates less wall thickening and distention than on the prior CT scans. The appearance is nonspecific, and could represent resolving inflammatory process. Follow-up is recommended. 3. Findings consistent with hepatic iron overload. 4. Multiple fat-containing periumbilical ventral hernias. Electronically signed by: Myron Nicholson MD 06/10/2025 07:42 AM EDT
--- OUTSIDE RECORDS SUMMARY | 2025-06-07 16:52 | XMS_ITS ---
Author Name Laura Barros NP Arian Address [address] [place] [address] Phone [phone] [facility] Care Team Providers Care Purchase Price Analyst Name Role Phone Laura Barros Unavailable [phone] [facility] Unavailable Julia Vann Unavailable [phone] OMID OLVERA Unavailable [phone] TYREE PEACOCK Unavailable [phone] DOMINIQUE CHINO Unavailable [phone] Shaynn Bermudez Unavailable [phone] Reason for Referral Not Available Allergies, adverse [...] 150 mg Tab TAKE 1 TABLET BY [facility] EVERYDAY AT BEDTIME 2022-10-21 No Data Available [...] organ damage (headache, vision changes, chest pain)/ Regional Guide on proper BP monitoring technique and reassess/ [...] 95 for video, modifier 93 for phone [facility], ([place]) 02/15/2023 Type 2 diabetes mellitus wit h other specified complicationHyperlipidemia, unspecifiedEssential (primary) hypertensionMalignant neoplasm of appendixMajor depressive disorder, recurrent, mildMigraine, unspecified, not intractable, without status migrainosusMorbid (severe) obesity due to excess caloriesBody mass index (BMI) 35.0-35.9, adult New patient, 30-44min 1 stable chronic or 2 minor; add modifier 95 for video, modifier 93 for phone [facility] 02/15/2023 New patient, 30-44min 1 stable chronic or 2 minor; add modifier 95 for video, modifier 93 for phone [facility] 02/15/2023 New patient, 30-44min 1 stable chronic or 2 minor; add modifier 95 for video, modifier 93 for phone [facility] 02/[place]/2023 New patient, 30-44min 1 stable chronic or 2 minor; add modifier 95 for video, modifier 93 for phone [facility] 02/15/2023 New patient, 30-44min 1 stable chronic or 2 minor; add modifier 95 for video, modifier 93 for phone [facility] 02/[place]/2023 New patient, 30-44min 1 stable chronic or 2 minor; add modifier 95 for video, modifier 93 for phone [facility] 02/15/2023 Estab. patient 30-39min; chronic exacerbation, 2 stable chronic or 1 acute illness add add modifier 95 for video, (do not use for phone, instead use 27756-33) [facility] 05/17/2024 Type 2 diabetes mellitus wit h [...] (do not use for phone, instead use 49266-39) [facility] ([place]) 05/17/2024 Estab. patient 30-39min; chronic exacerbation, 2 stable chronic or 1 acute illness add add modifier 95 for video, (do not use for phone, instead use 95777-78) [facility] 05/17/2024 Estab. patient 30-39min; chronic exacerbation, 2 stable chronic or 1 acute illness add add modifier 95 for video, (do not use for phone, instead use 43670-03) [facility] 05/17/2024 Estab. patient 30-39min; chronic exacerbation, 2 stable chronic or 1 acute illness add add modifier 95 for video, (do not use for phone, instead use 54931-62) [facility] 05/17/2024 Estab. patient 30-39min; chronic exacerbation, 2 stable chronic or 1 acute illness add add modifier 95 for video, (do not use for phone, instead use 85687-12) [facility] 05/17/20[place] Estab. patient 30-39min; chronic exacerbation, 2 stable chronic or 1 acute illness add add modifier 95 for video, (do not use for phone, instead use 53903-51) [facility] 05/17/2024 Estab. patient 30-39min; chronic exacerbation, 2 stable chronic or 1 acute illness add add modifier 95 for video, (do not use for phone, instead use 69745-25) [facility] 05/17/20[place] Estab. patient 30-39min; chronic exacerbation, 2 stable chronic or 1 acute illness add add modifier 95 for video, (do not use for phone, instead use 15683-44) [facility] 05/17/20[place] Estab. patient 30-39min; chronic exacerbation, 2 stable chronic or 1 acute illness add add modifier 95 for video, (do not use for phone, instead use 03154-22) [facility] ([place] 05/17/2024 Vital Signs Date of Collection Vitals [...] Time Current Smoking Status Never smoker 2025-05-16 4 Sex Male History of Procedures Procedures Service Procedure code Service date Servicing provider Phone# New patient, 30-44min 1 stable chronic or 2 minor; add modifier 95 for video, modifier 93 for phone [id number] 2023-02-15 No Data Available No Data Available [...] (do not use for phone, instead use 33607-97) 95480 2024-05-17 No Data Available No Data Availa [...] organ damage (headache, vision changes, chest pain)/ Regional Guide on proper BP monitoring technique and reassess/ [...]
--- OUTSIDE RECORDS SUMMARY | 2025-06-07 16:53 | XMS_ITS | Clinical Summary ---
Author Organization 175 [facility] Address [address] [place] [address] Phone Care Team Providers Care Wholesale Manager Name Role Phone Shyann Bermudez Primary Care Provider Allergies Active Allergy Reactions Criticality Noted Date Comments Lisinopril 12/13/2024 Encounters Date Type Department Care Team Description 05/22/2025 9:17 AM EDT - 05/22/2025 11:59 PM EDT Hospital Encounter [facility] PET Scan [address] [place] [id number] Secondary malignant neoplasm of retroperitoneum and peritoneum [...] Signed Date: 05/29/2025 13:11 ET Workstation ID: [id number] Transcribed By: Self Edit Transcribed Date: 05/29/2025 [...] Signed Date: 05/29/2025 13:11 ET Workstation ID: [id number] Transcribed By: Self Edit Transcribed Date: 05/29/2025 12:40 ET us Jil Robles MD IMG NM PROCEDURES Final Result from Last [address] [place] [place] [address] [place] [id number] Care Teams Wholesale Manager Relationship Specialty Start Date End Date Shyann Bermudez PA [address] [place] [address] 1 [place] [phone] PCP - General Physician Lithograph Press Feeder 10/24/24
--- OUTSIDE RECORDS SUMMARY | 2025-06-07 16:53 | XMS_ITS | Clinical Summary ---
Author Organization [facility] Facility Address [address] [place] [address], [place] [address] Care Team Providers Care Broadcast Meteorologist Name Role Phone Daniella Colon MD Primary [...] to 49 Years) Discontinued 07/04/2015 [place] Care Teams Broadcast Meteorologist Relationship Specialty Start Date End Date Daniella Colon MD [address] [place] [address] 1 [place] [address] PCP - General Internal Medicine 06/07/22
== END 2025-06-07 15:15 | disposition home or self-care (01) ==
LOC: HO.MRI 15:14
PROVIDERS: PCP Internal Medicine; Visit Provider Internal Medicine
DX: C18.1 Malignant neoplasm of appendix (principal)
CPT/HCPCS: 72197; 74183; A9585

== ENCOUNTER → 2025-06-10 10:25 | Outpatient (RCR) | payer MEDICARE, SELFPAY ==
[2025-04-26 09:30] VITALS: BP 148/61; PULSE 85; RESP 16; TEMP 36.6; O2SAT 94
[2025-05-03 10:54] VITALS: BP 162/86; PULSE 79; RESP 16; TEMP 36.6; O2SAT 98
[2025-05-08 10:58] VITALS: BP 144/74; PULSE 74; RESP 16; TEMP 37.1; O2SAT 96
[2025-05-13 10:56] VITALS: BP 136/69; PULSE 73; RESP 16; TEMP 36.6; O2SAT 95
[2025-05-20 11:04] VITALS: BP 121/75; PULSE 72; RESP 18; TEMP 36.9; O2SAT 99
[2025-05-28 09:37] VITALS: BP 162/92; PULSE 72; RESP 18; TEMP 36.4
[2025-06-03 09:04] VITALS: BP 154/83; PULSE 68; RESP 20; TEMP 36.1; O2SAT 99
[2025-06-10 10:01] VITALS: BP 190/98; PULSE 88; RESP 16; TEMP 36.6; O2SAT 98
[2025-06-10 10:09] VITALS: BP 131/82; PULSE 85; RESP 16
== END | disposition home or self-care (01) ==
LOC: HO.INF 04-26 09:23
PROVIDERS: Visit Provider Internal Medicine
DX: D50.9 Iron deficiency anemia, unspecified (principal)
CPT/HCPCS: 96365; J1756

== ENCOUNTER 2025-06-12 14:34 | Outpatient (AMB) | payer MEDICARE, SELFPAY ==
--- NOTE | 2025-06-12 14:56 | MHC.OFFVIS ---
Vital Signs 06/12/25 15:00 Height 5 ft 10 in Weight 266 lb 6 oz BMI 38.2 BP 136/77 Blood Pressure Location Rt brachial Position Sitting Pulse 101 H Intake Visit Reasons: Follow up appendiceal carcinoma Intake Note: This patient presents for a follow-up assessment for appendiceal carcinoma. Pt c/o; no complaints. Demand Planning Analyst Required: No Accompanied by: Allergies oxaliplatin Allergy (Intermediate, Verified 06/12/25 15:02) Shortness of Breath lisinopril (LISINOPRIL) Allergy (Mild, Verified 06/12/25 15:02) RASH Medication List - Last Reconciled 06/12/25 by Lit Norton MD alcohol swabs 1 pad topical QIDACHS atorvastatin 10 mg PO BEDTIME blood sugar diagnostic (FreeStyle Lite Strips) Test BID or as directed. blood-glucose meter (FreeStyle Lite Meter kit) As Directed blood-glucose sensor (EQUISOyle Deja 3 Plus Sensor device) Use daily As directed to monitor glucose buspirone 10 mg PO DAILY carvedilol 12.5 mg PO BID cholecalciferol (vitamin D3) 25 mcg PO DAILY clotrimazole 1% 1 appl topical BID PRN ferrous sulfate 325 mg PO BID fluticasone propionate 50 mcg/actuation 1 - 2 sprays intranasal DAILY PRN glucose (Dex4 Glucose) 16 grams (4 x 4 gram) PO Q15M PRN lancets (FreeStyle Lancets) test blood glucose BID or as directed. omeprazole 20 mg PO DAILY@0630 peg 3350-electrolytes 236-22.74-6.74 -5.86 gram 240 mL PO Q10M pen needle, diabetic Use four times a day or as directed. 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 He had undergone colon resection for appendiceal carcinoma in 2021. 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 He had undergone chemotherapy with Dr. Murguia His CEA levels have been low but the last 1 last month the showed that this was elevated at 61. He denies GI complaints. He has had dark stools but he said he had an EGD and colonoscopy with Dr. Robles a few months ago which was unremarkable. He denies any changes with the bowel habits. [facility] Medical History (Updated 06/12/25 @ 15:09 by Lit Norton MD) Elevated CEA Colon cancer Anemia History of blood transfusion (09/20/24) History of colon cancer Infected cyst of skin Cellulitis of abdominal wall Eye inflammation Sleep apnea Ambulates with cane Back pain due to injury Morbid obesity Umbilical hernia Obesity (BMI 30-39.9) Dyslipidemia Diabetic nephropathy associated with type 2 diabetes mellitus Epidermal cyst HTN (hypertension) Diabetes type 2, controlled Surgical History History of colon resection S/P right colectomy H/O colonoscopy S/P appendectomy History of umbilical hernia repair (~01/08/22) Hx of removal of cyst Family History Father Diabetes Heart disease Mother Diabetes Heart disease Other No family history of cancer Social History Household Members: Spouse Housing: House Are you a primary healthcare architect to a significant other at home: No Do you presently have visiting nurse or other home services: No Alcohol intake: never Comment: Ofirmev infusing at time of xfer Patient Tobacco Use Status: Never used Tobacco service: No Current occupational status: disabled Review of Systems Const Denies chills and Denies fever(s) Card Denies chest pain, Denies dyspnea and Denies dyspnea on exertion Resp Denies cough, Denies dyspnea and Denies dyspnea on exertion GI Denies hematochezia and Denies change in bowel habits Denies hematuria and Denies difficulty urinating Musc Denies back pain and Denies limited range of motion Neuro Denies focal weakness and Denies convulsions Psych Denies depression and Denies mood swings Physical Exam Vital Signs: Last Vital Signs Pulse 101 H 06/12/25 15:00 BP 136/77 06/12/25 15:00 BMI result Body Mass Index 38.2 Const Other: Morbidly obese General: comfortable and no acute distress Orientation/consciousness: patient oriented x3 Neck Neck: Yes no lymphadenopathy Resp Auscultation: clear to auscultation bilaterally Cardio Rhythm: regular rhythm GI Palpation (GI): Soft to palpation, nontender and no guarding Neuro General: patient oriented x3 Assessment & Plan Assessment & Plan (1) Elevated CEA: Code(s): R97.0 - Elevated carcinoembryonic antigen [CEA] Category: Medical Plan: He has a history of a T4 N2 a appendiceal carcinoma and had right colon resection for this in 2021. His CEA levels have been rising. I have reviewed his MRI from last week. This shows mesenteric lymphadenopathy in the right lower quadrant and this was seen on his CAT scan previously as well. There were prominent loop of small bowel in the right lower quadrant but this appeared to be less thickened and less distended compared to the CAT scan which was done last month These elevated CEA level is concerning for a recurrence. The CAT scan and MRI findings are kind of underwhelming for this. I am going to order for a CAT scan of the lungs to rule out pulmonary metastatic disease. I will discuss with Dr. Murguia the rest of his care from here on. He will be followed closely in the office. His daughter was with him during the visit. Orders: Orders CT chest w IV con Today R97.0 - Elevated carcinoembryonic antigen [CEA] Coding Level of Care Code Est Pt Level 4 (10514) Diagnoses Elevated CEA R97.0
[2025-06-12 15:00] VITALS: BP 136/77; PULSE 101; BMI 38.2
--- OUTSIDE RECORDS SUMMARY | 2025-06-12 18:55 | XMS_ITS ---
Author Name Laura Barros NP Arian Address [address] [place] [address] Phone [phone] [facility] Care Team Providers Care Box Press Operator Name Role Phone Laura Barros Unavailable [phone] [facility] Unavailable Julia Vann Unavailable [phone] OMID OLVERA Unavailable [phone] TYREE PEACOCK Unavailable [phone] DOMINIQUE CHINO Unavailable [phone] Shyann Bermudez Unavailable [phone] Reason for Referral Not Available Allergies, adverse [...] 150 mg Tab TAKE 1 TABLET BY [facility] EVERYDAY AT BEDTIME 2022-10-21 No Data Available Atorvastatin Calcium 10 mg Tab TAKE 1 TA BLET BY MOUTH EVERYDAY AT BEDTIME 2022-02-16 No Data Available busPIRone 10 mg Tab TAKE 1 TABLET BY [facility] EVERY DAY IN THE MORNING 2022-10-21 No Data Available Sertraline 100 mg Tab TAKE ONE AND [facility] (1.5) TABLETS BY MOUTH DAILY 2022-10-21 No [...] organ damage (headache, vision changes, chest pain)/ Corporate Security Manager on proper BP monitoring technique and [...] 95 for video, modifier 93 for phone [facility], ([place] 02/15/2023 Type 2 diabetes mellitus wit h other specified complicationHyperlipidemia, unspecifiedEssential (primary) hypertensionMalignant neoplasm of appendixMajor depressive disorder, recurrent, mildMigraine, unspecified, not intractable, without status migrainosusMorbid (severe) obesity due to excess caloriesBody mass index (BMI) 35.0-35.9, adult New patient, 30-44min 1 stable chronic or 2 minor; add modifier 95 for video, modifier 93 for phone [facility], ([place] 02/15/2023 New patient, 30-44min 1 stable chronic or 2 minor; add modifier 95 for video, modifier 93 for phone [facility], ([place]) 02/15/2023 New patient, 30-44min 1 stable chronic or 2 minor; add modifier 95 for video, modifier 93 for phone [facility] 02/15/2023 New patient, 30-44min 1 stable chronic or 2 minor; add modifier 95 for video, modifier 93 for phone [facility] ([place] 02/15/2023 New patient, 30-44min 1 stable chronic or 2 minor; add modifier 95 for video, modifier 93 for phone [facility] ([place] 02/15/2023 New patient, 30-44min 1 stable chronic or 2 minor; add modifier 95 for video, modifier 93 for phone [facility], ([place]) 02/15/2023 Estab. patient 30-39min; chronic exacerbation, 2 stable chronic or 1 acute illness add add modifier 95 for video, (do not use for phone, instead use [id number]) [facility], ([place]) 05/17/2024 Type 2 diabetes mellitus wit h [...] (do not use for phone, instead use 44700-28) [facility] ([place]) 05/17/2024 Estab. patient 30-39min; chronic exacerbation, 2 stable chronic or 1 acute illness add add modifier 95 for video, (do not use for phone, instead use 04202-40) [facility], ([place] 05/17/2024 Estab. patient 30-39min; chronic exacerbation, 2 stable chronic or 1 acute illness add add modifier 95 for video, (do not use for phone, instead use 72269-72) [facility] ([place] 05/17/2024 Estab. patient 30-39min; chronic exacerbation, 2 stable chronic or 1 acute illness add add modifier 95 for video, (do not use for phone, instead use 21580-68) [facility] 05/17/2024 Estab. patient 30-39min; chronic exacerbation, 2 stable chronic or 1 acute illness add add modifier 95 for video, (do not use for phone, instead use 30496-24) [facility] ([place] 05/17/2024 Estab. patient 30-39min; chronic exacerbation, 2 stable chronic or 1 acute illness add add modifier 95 for video, (do not use for phone, instead use 53567-13) [facility] ([place] 05/17/2024 Estab. patient 30-39min; chronic exacerbation, 2 stable chronic or 1 acute illness add add modifier 95 for video, (do not use for phone, instead use 07956-45) [facility] ([place] 05/17/2024 Estab. patient 30-39min; chronic exacerbation, 2 stable chronic or 1 acute illness add add modifier 95 for video, (do not use for phone, instead use 98694-91) [facility] ([place] 05/17/2024 Estab. patient 30-39min; chronic exacerbation, 2 stable chronic or 1 acute illness add add modifier 95 for video, (do not use for phone, instead use 95467-24) [facility] 05/17/2024 Vital Signs Date of Collection Vitals [...] Time Current Smoking Status Never smoker 2025-05-16 9 Sex Male History of Procedures Procedures Service Procedure code Service date Servicing provider Phone# New patient, 30-44min 1 stable chronic or 2 minor; add modifier 95 for video, modifier 93 for phone [id number] 2023-02-15 No Data Available No Data Available [...] (do not use for phone, instead use 04907-05) [id number] 2024-05-17 No Data Available No Data Availa [...] organ damage (headache, vision changes, chest pain)/ Corporate Security Manager on proper BP monitoring technique and [...]
--- OUTSIDE RECORDS SUMMARY | 2025-06-12 18:55 | XMS_ITS | Clinical Summary ---
Author Organization [facility] Address [address] [place] [address] Phone Care Team Providers Care Information Technology Program Manager Name Role Phone Shyann Bermudez Primary Care Provider Allergies Active Allergy Reactions Criticality Noted Date Comments Lisinopril 12/13/2024 Encounters Date Type Department Care Team Description 05/22/2025 9:17 AM EDT - 05/22/2025 11:59 PM EDT Hospital Encounter [facility] PET Scan [address] [place] [id number] Secondary malignant neoplasm of retroperitoneum and peritoneum [...] Signed Date: 05/29/2025 13:11 ET Workstation ID: [id number] Transcribed By: Self Edit Transcribed Date: 05/29/2025 [...] Signed Date: 05/29/2025 13:11 ET Workstation ID: [id number] Transcribed By: Self Edit Transcribed Date: 05/29/2025 12:40 ET us Jil Robles MD IMG NM PROCEDURES Final Result from Last [address] [place] [address] [place] [address] [place] [id number] Care Teams Information Technology Program Manager Relationship Specialty Start Date End Date Shyann Bermudez PA [address] [place] [address] [address] [place] [phone] PCP - General Physician Studio Operation Engineer 10/24/24
--- OUTSIDE RECORDS SUMMARY | 2025-06-12 18:55 | XMS_ITS | Clinical Summary ---
Author Organization [facility] Address [address] [place] [address], [place] [address] Care Team Providers Care Gis Coordinator Name Role Phone Daniella Colon MD Primary Care Provider [phone] Social History Tobacco Use Types Packs/Day Years [...] Insurance Medicaid [place] Care Teams Gis Coordinator Relationship Specialty Start Date End Date Daniella Colon MD [address] [place] [address] [address] [place] [id number] PCP - General Internal Medicine 06/07/22
== END 2025-06-12 15:28 | disposition home or self-care (01) ==
LOC: HO.HGS 14:34
PROVIDERS: PCP Internal Medicine; Visit Provider Surgery
DX: R97.0 Elevated carcinoembryonic antigen [CEA] (principal)
CPT/HCPCS: 99214

== ENCOUNTER → 2025-06-12 14:34 | Outpatient (BNVA) | payer MEDICARE, SELFPAY | PROVIDERS: PCP Internal Medicine; Visit Provider Surgery | DX: R97.0 Elevated carcinoembryonic antigen [CEA] (principal) | CPT/HCPCS: 99212 ==

== ENCOUNTER 2025-06-26 09:01 | Outpatient (AMB) | payer MEDICARE, SELFPAY ==
--- NOTE | 2025-06-26 09:03 | MHC.OFFVIS ---
Vital Signs 06/26/25 09:05 Height 5 ft 10 in Weight 260 lb 2.327 oz BMI 37.3 BP 142/78 H Blood Pressure Location Lt brachial Position Sitting Pulse 76 Intake Visit Reasons: s/p egd, colo Intake Note: Titus presents in the office as a follow up for EGD and COLO. CC: States that he is just here for results - no concerns. 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 Patient was seen earlier this month 04/16: Briefly, patient was seen in the emergency room last month for abdominal pain ongoing for 2 days primarily in the right lower quadrant associated with nausea and vomiting. CT abdomen and pelvis without contrast showed enlarged and dilated appendix with surrounding fatty stranding. However, the appearance was atypical, and based on imaging, mucocele was suspected. Patient was seen by General surgery, Dr. Alfonso. Underwent laparoscopic appendectomy on 03/28. Intraoperatively, he was found to have perforated necrotic appendicitis with free fluid in the abdomen along with a right pericolic abscess. This necessitated MARY drain placement as well. That has since been removed. Path report was positive for appendiceal adenocarcinoma, see details below and results section. Patient tells me that he had a colonoscopy in 2009 and [facility] that was done around the time he had a gluteal abscess. He is unsure of the details of the colonoscopy, in fact did not recall this colonoscopy, until he was reminded by his primary care provider at a recent visit. In terms of his symptoms, he denies any abdominal pain, nausea, vomiting, changes in appetite, unintentional weight loss. He does endorse frequent bowel movements, especially after meals. Denies any blood in stool. Labs from the admission were personally reviewed and were notable for mild anemia. In addition, he was also noted to have low platelet count. Patient does not smoke. Drinks occasionally. There is no family history of colon cancer or colon polyps that he knows of. No family history. It of colitis or Crohn's disease. 05/12/22: In the interim has undergone a complete colonoscopy that showed a large polyp overlying the appendiceal orifice. Biopsies show LGD adenoma. The large polyp was not removed as I did not want to risk perforation stacey since the patient is planned for a R hemicolectomy regardless. In addition, he also had an area of irregular nodular mucosa in ascending colon - bx show hyperplastic changes. Miniscule TA in cecum. No synchronous lesions were seen on this exam. Patient reports no abdominal pain, nausea, vomiting, changes in appetite. Bowel movements are regular. He has been seen by Dr Duran and has been scheduled for surgery next month. 06/01/22: Underwent R hemicolectomy with ileocolonic anastomosis (Dr Duran). Adenoca invading the serosa with 4/14 + nodes. Had recurrent admissions after this for intra-abdominal infections. 08/02/23: [place] (Dr Sanchez): No polyps. Internal hemorrhoids. Mild erythema at anastomosis. 09/20/23: He is here for follow-up after his colonoscopy. Has also been seen by Dr. Murguia and completed his adjuvant chemotherapy in March 2023. CT chest/abd/pel from May without any disease recurrence. Has a rpeat follow up with her next month. Results of colo reviewed and reassuring. 04/09/24: Here for rectal bleeding that started a few months ago. Reports one episode in summer around February while he was on a cruise. Reports lasted for almost a week with rectal bleeding noted with each BM despite having a normal/soft BM. This was not assoc with any abd pain, N,V. Does report occ diarrhea. Has hx of appendiceal adenoca s/p hemicolectomy. Saw his oncologist and reported above who got blood work - normal, and referred him to us for further evaluation. 06/14/24 1. Normal colon, ileocolonic anastomosis, and ileal mucosa 2. Internal and external hemorrhoids Recommendations: - Follow path results. - Intermittent rectal bleeding was likely from hemorrhoids, which has since resolved. - Repeat colonoscopy in 3 years for adenoca surveillance. Path: A. Labeled biopsy at anastomosis : Ileal and colonic mucosa with minor crypt distortion, otherwise no specific change; no evidence of malignancy. B. Colon, left, biopsy: Colonic mucosa with lymphoid aggregate and minor crypt distortion, otherwise no specific change; no evidence of malignancy. 06/29/24: Pt reassured of th results. No ongoing GI concerns at this time. Has not any recurrence of bleeding. Starting to exercise and lift weights. Cautioned re safe lifting and avoiding prolonged increased intra-abd pressure so he doesnt aggravate hemorrhoids. Also has ventral hernia. 09/19/24: Booked as urgent televisit. Was seen in hospital by Dr Ventura for acute anemia. EGD 09/07/24 with mild esophagitis and gastritis. Bx neg for H Pylori and celiac. Outpatient repeat H/H unchanged from 2 weeks ago despite PO iron supplementation indicating ongoing GI losses. CEA checked by Onc is also higher than expected. Pt himself without any abd pain, N,V, D. No red blood or melena reported. 10/17/24: 1. Poor prep in left colon 2. Normal ileocolonic anastomosis, and ileal mucosa 2. Internal and external hemorrhoids 12/19/24: Reviewed with the patient that while the left side of the colon was not completely prep, no evidence of recurrent cancer on the right side especially at the site of anastomosis. MRI results were also reassuring. At this time, will proceed with small-bowel evaluation with CT enterography as well as capsule endoscopy, as long as no stricture/stenosis noted on CTE. We will also check for updated iron studies in case he needs IV Venofer. Patient otherwise does not have any abdominal pain, melena, hematochezia. 06/26/25: Seen as follow up. In the interim hes had VCE 01/2025 followed by EGD/colo 04/2025 for recurrent anemia and rising CEA. See details in EMR. The bleeding on VCE was not identified/reached on follow up colo. (most proximal end of T.I reached was tattooed). Interestingly small bowel wall thickening improved on most recent MRI and H/H is also better. He is seeing surgery Dr Duran for further evaluation. Currently awaiting CT chest to r/o metastatic disease. This is [facility] for 07/08. [facility] Medical History Elevated CEA Colon cancer Anemia History of blood transfusion (09/20/24) History of colon cancer Infected cyst of skin Cellulitis of abdominal wall Eye inflammation Sleep apnea Ambulates with cane Back pain due to injury Morbid obesity Umbilical hernia Obesity (BMI 30-39.9) Dyslipidemia Diabetic nephropathy associated with type 2 diabetes mellitus Epidermal cyst HTN (hypertension) Diabetes type 2, controlled Surgical History History of esophagogastroduodenoscopy (EGD) History of colon resection S/P right colectomy H/O colonoscopy S/P appendectomy History of umbilical hernia repair (~01/08/22) Hx of removal of cyst Family History Father Diabetes Heart disease Mother Diabetes Heart disease Other No family history of cancer Social History Household Members: Spouse Housing: House Are you a primary care associate to a significant other at home: No Do you presently have visiting nurse or other home services: No Alcohol intake: never Comment: Ofirmev infusing at time of xfer Patient Tobacco Use Status: Never used Tobacco service: No Current occupational status: disabled Review of Systems Const All systems reviewed & are unremarkable except as noted in HPI and below Physical Exam Exam Exam: No apparent distress Nonicteric Abdomen soft, nondistended Alert and oriented x3, normal gait Vital Signs: Last Vital Signs Pulse 76 06/26/25 09:05 BP 142/78 H 06/26/25 09:05 BMI result Body Mass Index 37.3 Assessment & Plan Assessment & Plan (1) Iron deficiency anemia: Code(s): D50.9 - Iron deficiency anemia, unspecified Category: Medical (2) Primary appendiceal adenocarcinoma: Code(s): C18.1 - Malignant neoplasm of appendix Category: Medical (3) Elevated CEA: Code(s): R97.0 - Elevated carcinoembryonic antigen [CEA] Category: Medical Plan Reviewed with the pt that overall picture worrisome for recurrence. Encouraged follow up with surgery after imaging completed for next course of action. May need laproscopic evaluation based on findings on VCE and PET scan. Follow up 2 months - pt encouraged to contact over portal for any concerns in the meantime. Coding Level of Care Code Est Pt Level 4 (78990) Complex EM visit Add On G2211 Diagnoses Iron deficiency anemia D50.9 Primary appendiceal adenocarcinoma C18.1 Elevated CEA R97.0
[2025-06-26 09:05] VITALS: BP 142/78; PULSE 76; BMI 37.3
--- OUTSIDE RECORDS SUMMARY | 2025-06-26 09:37 | XMS_ITS ---
Author Name Larua Barros NP Arian Address [address] [place] [address] Phone [phone] [facility] Care Team Providers Care Manager Science Name Role Phone Laura Barros Unavailable [phone] [facility] Unavailable Julia Vann Unavailable [phone] OMID OLVERA Unavailable [phone] TYREE PEACOCK Unavailable [phone] DOMINIQUE CHINO Unavailable [phone] Shyann Bermudez Unavailable [phone] Reason for Referral Not Available Allergies, adverse [...] 150 mg Tab TAKE 1 TABLET BY [facility] EVERYDAY AT BEDTIME 2022-10-21 [...] organ damage (headache, vision changes, chest pain)/ Classified Ad Taker on proper BP monitoring technique and reassess/ [...] 95 for video, modifier 93 for phone [facility]2023 Type 2 diabetes mellitus wit h other specified complicationHyperlipidemia, unspecifiedEssential (primary) hypertensionMalignant neoplasm of appendixMajor depressive disorder, recurrent, mildMigraine, unspecified, not intractable, without status migrainosusMorbid (severe) obesity due to excess caloriesBody mass index (BMI) 35.0-35.9, adult New patient, 30-44min 1 stable chronic or 2 minor; add modifier 95 for video, modifier 93 for phone [facility] 02[place]/2023 New patient, 30-44min 1 stable chronic or 2 minor; add modifier 95 for video, modifier 93 for phone [facility] ([place]) 02/15/2023 New patient, 30-44min 1 stable chronic or 2 minor; add modifier 95 for video, modifier 93 for phone [facility] 02[place]/2023 New patient, 30-44min 1 stable chronic or 2 minor; add modifier 95 for video, modifier 93 for phone [facility] 02/15/2023 New patient, 30-44min 1 stable chronic or 2 minor; add modifier 95 for video, modifier 93 for phone [facility] [place] 02/15/2023 New patient, 30-44min 1 stable chronic or 2 minor; add modifier 95 for video, modifier 93 for phone [facility] [place] 02/15/2023 Estab. patient 30-39min; chronic exacerbation, 2 stable chronic or 1 acute illness add add modifier 95 for video, (do not use for phone, instead use 83634-55) [facility] 05/17/2024 Type 2 diabetes mellitus wit [...] (do not use for phone, instead use 29222-60) [facility] ([place] 05/17/20[place] Estab. patient 30-39min; chronic exacerbation, 2 stable chronic or 1 acute illness add add modifier 95 for video, (do not use for phone, instead use 52286-28) [facility] 05[place]17/20[place] Estab. patient 30-39min; chronic exacerbation, 2 stable chronic or 1 acute illness add add modifier 95 for video, (do not use for phone, instead use 35852-81) [facility] 05[place]17/20[place] Estab. patient 30-39min; chronic exacerbation, 2 stable chronic or 1 acute illness add add modifier 95 for video, (do not use for phone, instead use 20565-57) [facility] 05[place]17/20[place] Estab. patient 30-39min; chronic exacerbation, 2 stable chronic or 1 acute illness add add modifier 95 for video, (do not use for phone, instead use 92844-67) [facility] ([place] 05/17/20[place] Estab. patient 30-39min; chronic exacerbation, 2 stable chronic or 1 acute illness add add modifier 95 for video, (do not use for phone, instead use 30424-31) [facility] 05[place]17/[place] Estab. patient 30-39min; chronic exacerbation, 2 stable chronic or 1 acute illness add add modifier 95 for video, (do not use for phone, instead use 68811-21) [facility] 05[place]17/20[place] Estab. patient 30-39min; chronic exacerbation, 2 stable chronic or 1 acute illness add add modifier 95 for video, (do not use for phone, instead use 09270-73) [facility] ([place] 05/17/20[place] Estab. patient 30-39min; chronic exacerbation, 2 stable chronic or 1 acute illness add add modifier 95 for video, (do not use for phone, instead use 16817-65) [facility] 05/17/2024 Vital Signs Date of Collection [...] tive Time Current Smoking Status Never smoker 2025-06-15 2 Sex Male History of Procedures Procedures Service Procedure code Service date Servicing provider Phone# New patient, 30-44min 1 stable chronic or 2 minor; add modifier 95 for video, modifier 93 for phone [id number] 2023-02-15 No Data Available No Data Available [...] (do not use for phone, instead use 61086-56) [id number] 2024-05-17 No Data Available No Data Availa [...] organ damage (headache, vision changes, chest pain)/ Classified Ad Taker on proper BP monitoring technique and reassess/ [...]
--- OUTSIDE RECORDS SUMMARY | 2025-06-26 09:37 | XMS_ITS | Clinical Summary ---
Author Organization [facility] Address [address] [place] [address], [place] [id number] Care Team Providers Care Urology Physician Assistant Name Role Phone Daniella Colon MD Primary [...] to 49 Years) Discontinued 07/04/2015 Insurance Medicaid [place] Care Teams Urology Physician Assistant Relationship Specialty Start Date End Date Daniella Colon MD [address] [place] [address] [address] [place] [address] PCP - General Internal Medicine 06/07/22
--- OUTSIDE RECORDS SUMMARY | 2025-06-26 09:37 | XMS_ITS | Clinical Summary ---
Author Organization [facility] Address [address] [place] [address] Phone Care Team Providers Care Maintenance Mechanic Engine Name Role Phone Shyann Bermudez Primary Care Provider [phone] Allergies Active Allergy Reactions Criticality Noted Date Comments Lisinopril 12/13/2024 Encounters Date Type Department Care Team Description 05/22/2025 9:17 AM EDT - 05/22/2025 11:59 PM EDT Hospital Encounter [facility] PET Scan [address] [place] [id number] Secondary malignant neoplasm of retroperitoneum and peritoneum [...] Signed Date: 05/29/2025 13:11 ET Workstation ID: [id number] Transcribed By: Self Edit Transcribed Date: 05/29/2025 [...] Signed Date: 05/29/2025 13:11 ET Workstation ID: [id number] Transcribed By: Self Edit Transcribed Date: 05/29/2025 12:40 ET us Jil Robles MD IMG [place] PROCEDURES Final Result from Last [address] [place] [address] [address] [place] [id number] Care Teams Maintenance Mechanic Engine Relationship Specialty Start Date End Date Shyann Bermudez PA [address] [place] [address] [address] [place] [phone] PCP - General Physician Boiler Plant Operator 10/24/24
== END 2025-06-26 10:19 | disposition home or self-care (01) ==
LOC: HO.HGI 09:02
PROVIDERS: PCP Internal Medicine; Visit Provider Internal Medicine
DX: D50.9 Iron deficiency anemia, unspecified (principal); C18.1 Malignant neoplasm of appendix; R97.0 Elevated carcinoembryonic antigen [CEA]
CPT/HCPCS: 99214; G2211

== ENCOUNTER → 2025-06-26 09:01 | Outpatient (BNVA) | payer MEDICARE, SELFPAY | PROVIDERS: PCP Internal Medicine; Visit Provider Internal Medicine | DX: D50.9 Iron deficiency anemia, unspecified (principal); C18.1 Malignant neoplasm of appendix; R97.0 Elevated carcinoembryonic antigen [CEA] | CPT/HCPCS: 99212 ==

== ENCOUNTER 2025-06-28 13:32 | Observation (INO) | payer MEDICARE, SELFPAY ==
--- NOTE | ~2025-06-28 | CT_ITS ---
CLINICAL HISTORY: ruq pain Exam: Contrast-enhanced CT abdomen and pelvis with multiplanar reformats. Comparison: 04/26/2025. Findings: CT abdomen: Lung bases are clear. Liver is free of focal lesions and ductal dilatation. Gallbladder is unremarkable. Spleen is unremarkable. Pancreas and adrenal glands appear unremarkable. Kidneys appear unremarkable. Trace amount of free fluid is likely reactive. No retroperitoneal masses or adenopathy. Abdominal aorta is normal caliber. Bowel loops reveal dilated small bowel loops within the right hemiabdomen measuring up to 4.2 cm diameter, with surrounding stranding with a transition to nondistention within the anterior right pelvis (5; 528-490), findings compatible with small-bowel obstruction. There is mild mesenteric edema involving dilated small bowel loops. No other abnormal bowel wall thickening or distention. A fat containing anterior abdominal wall hernia (for example, 5; 423) is present. No bowel loops in the hernia sac. CT pelvis: Prostate gland and seminal vesicles are stable. Urinary bladder is free of gross filling defects. No pelvic masses, fluid or adenopathy. Osseous structures reveal no destructive osseous lesions. Impression: 1. Evidence of small-bowel obstruction, with transition in the anterior right pelvis. This document has been electronically signed by: Perez Sofia MD on 06/28/2025 18:44:16
--- NOTE | ~2025-06-28 | US_ITS ---
EXAMINATION: US ABDOMEN LIMITED CLINICAL INFORMATION: Right upper quadrant tenderness. COMPARISON: Previous CT of the abdomen and pelvis April 2025 and MR of the abdomen May 2025. TECHNIQUE: Real-time imaging of the gallbladder and bile ducts FINDINGS: Exam is limited due to body habitus and bowel gas. GALLBLADDER: The gallbladder is physiologically distended without evidence of stones, sludge, polyps, wall thickening or pericholecystic fluid. glass technologist reports the patient is tender over the gallbladder/positive sonographic Jacobsen's sign. COMMON BILE DUCT: Normal in caliber measuring 0.3 cm in diameter. FREE FLUID: None. US/US abdomen limited IMPRESSION: Normal appearing gallbladder and common bile duct. glass technologist reports the patient is tender over the gallbladder/positive sonographic Jacobsen's sign. Consider further imaging if clinically warranted. Electronically signed by: Beatriz Liao MD 06/28/2025 04:03 PM KIRAN
[2025-06-28 14:05] VITALS: BP 165/76; PULSE 72; RESP 18; TEMP 36.6; O2SAT 98; BMI 37.3
--- NOTE | 2025-06-28 14:09 | ED_ITS ---
HPI - General Adult General Chief complaint: Abdominal Pain Stated complaint: Stomach Pain Time Seen by Provider: 06/28/25 16:16 Source: patient Mode of arrival: ambulatory Limitations: no limitations History of Present Illness ED Provider: Dr. Villanueva HPI narrative: This is a 59-year-old male history of diabetes, gastritis, GERD, hypertension presented hospital today for evaluation of right upper quadrant pain. It started all of a sudden around 09:00 this morning. We will come up from sleep. Patient stated that he feels a poking sensation in his right upper quadrant. It is colicky in nature intermittent in nature. He has no problem with his gallbladder in the past. However patient did endorse some gas as well where he is burping however this pain is not alleviate therefore he presents to the ER for further evaluation. Denies any diarrhea. Denies any fever Related Data Home Medications ?Medication ?Instructions ?Recorded ?Confirmed atorvastatin 10 mg tablet 10 mg PO BEDTIME 10/22/20 carvedilol 12.5 mg tablet 12.5 mg PO BID 10/22/2001/06 cholecalciferol (vitamin D3) 25 25 mcg PO DAILY 06/19/25 mcg (1,000 unit) capsule trazodone 150 mg tablet 150 mg PO BEDTIME 11/04/20 1 08/19/24 sertraline 100 mg tablet 150 mg PO BEDTIME 01/04/22 1 08/19/24 buspirone 10 mg tablet 10 mg PO DAILY 09/20/2301/06 clotrimazole 1 % topical cream 1 appl topical BID PRN Rash 09/20/23 06/19/25 fluticasone propionate 50 1 - 2 spray intranasal DAILY PRN 04/09/24 06/19/25 mcg/actuation nasal cold and allergies spray,suspension tirzepatide 10 mg/0.5 mL 20 mg subcut QWEEK 06/04/25 06/19/25 subcutaneous pen injector (Shanti) ascorbic acid (vitamin C) 500 mg 500 mg PO BID 5 chewable tablet (Vitamin C) cetirizine 10 mg tablet 10 mg PO DAILY 06/26/25 insulin glargine 100 unit/mL (3 unit subcut 06/28/25 mL) subcutaneous pen (Lantus Solostar U-100 Insulin) Previous Rx's ?Medication ?Instructions ?Recorded omeprazole 20 mg capsule,delayed 20 mg PO DAILY@0630 # 30 caps 09/08/24 release pen needle, diabetic 32 gauge x #100 ea 09/08/24 1 blood sugar diagnostic (FreeStyle #100 ea 10/29/24 Lite Strips) blood-glucose meter (FreeStyle #1 ea 10/29/24 Lite Meter kit) glucose 4 gram chewable tablet 16 g (4 x 4 gram) PO Q1 5M PRN 10/29/24 (Dex4 Glucose) hypoglycemia #100 tabs lancets 28 gauge (FreeStyle #100 ea 10/29/24 Lancets) ferrous sulfate 325 mg (65 mg 325 mg PO BID #60 tabs 0 04/17/25 iron) tablet blood-glucose sensor (FreeStyle #2 ea 06/05/25 Deja 3 Plus Sensor device) Allergies Allergy/AdvReac Type Severity Reaction Status Date / Time oxaliplatin Allergy Intermediate Shortness Verified 06/28/25 14:07 of Breath lisinopril (LISINOPRIL) Allergy Mild RASH Verified 06/28/25 14:07 Review of Systems 2 Review of Systems: Pertinent review of systems as mentioned in HPI. All other system otherwise negative. [facility] Past Medical History [facility], [facility] Narrative: Medical history as mentioned in HPI Medical History Elevated CEA Colon cancer Anemia History of blood transfusion (09/20/24) History of colon cancer Infected cyst of skin Cellulitis of abdominal wall Eye inflammation Sleep apnea Ambulates with cane Back pain due to injury Morbid obesity Umbilical hernia Obesity (BMI 30-39.9) Dyslipidemia Diabetic nephropathy associated with type 2 diabetes mellitus Epidermal cyst HTN (hypertension) Diabetes type 2, controlled Surgical History History of esophagogastroduodenoscopy (EGD) History of colon resection S/P right colectomy H/O colonoscopy S/P appendectomy History of umbilical hernia repair (~01/08/22) Hx of removal of cyst Family History Family History Father Diabetes Heart disease Mother Diabetes Heart disease Other No family history of cancer Social History Social History Household Members: Spouse Housing: House Are you a primary child daycare worker to a significant other at home: No Do you presently have visiting nurse or other home services: No Alcohol intake: never Comment: Ofirmev infusing at time of xfer Patient Tobacco Use Status: Never used Tobacco Smoked in Last 30 Days: No Use of substances other than those prescribed or required for medical reasons: No Advance Directives: No Advance Directives Information Provided: Yes Do you have a plan to hurt others: No Plan service: No Current occupational status: disabled Physical Exam ED Exam Exam: General: Pleasant, no distress, interacting appropriately Head: Normacephalic, atraumatic ENT: oral mucosa moist, neck supple, no tracheal deviation Gastrointestinal: Soft, non distended, right upper quadrant tenderness on palpation, no guarding, no CVA tenderness bilaterally Extremities: No limb pain or swelling, no calf tenderness Neurological: Awake and alert, no facial droop noted Skin: Warm and dry Psychiatric: Appropriate mood and thoughts Vital Signs: Vital Signs - 24 hr 06/28/25 14:05 06/28/25 17:07 06/28/25 19:09 Temperature 98 F 98.3 F Pulse Rate 72 87 93 Respiratory Rate 18 18 16 Blood Pressure 165/76 H 143/94 H 147/93 H Pulse Oximetry 98 92 95 Oxygen Delivery Method Room Air Room Air Room Air BMI result Body Mass Index 37.3 Course Course Course Narrative: This is a rapid medical exam performed by Yaya Spencer NP: Additional HPI, ROS, PE not included below will be deferred to primary provider. Patient is a 59y/o M presenting with RUQ abd pain, nausea and vomiting which began after eating this morning. Plan: labs, U/S Medications Administered Generic Name Dose Route Start Last Admin Trade Name Freq PRN Reason Stop Dose Admin Lactated Ringer's 1,000 mls @ 100 mls/hr 06/28/25 20:30 06/28/25 21:02 Lr IVCONT 100 mls/hr .Q10H TEENA Administration Morphine Sulfate 2 mg 06/28/25 20:27 06/28/25 21:12 Morphine Sulfate 4 Mg/Ml Cartridge IVPUSH 2 mg Q4H PRN Administration Pain, Severe (Pain Scale 7-10) Protocol Ondansetron HCl 4 mg 06/28/25 20:27 06/28/25 21:12 Ondansetron Hcl 4 Mg/2 Ml Vial IVPUSH 4 mg Q8H PRN Administration Nausea and Vomiting Discontinued Medications Generic Name Dose Route Start Last Admin Trade Name Freq PRN Reason Stop Dose Admin Al Hydroxide/Mg Hydroxide 30 ml 06/28/25 16:32 06/28/25 17:28 Magnesium Hydrox/Alum Hydrox 30 Ml Oral.Susp PO 06/28/25 16:33 30 ml ONCE ONE Administration Guaifenesin 600 mg 06/28/25 17:06 06/28/25 17:28 Guaifenesin La 600 Mg Tab.Er.12h PO 06/28/25 17:07 600 mg ONCE ONE Administration Iohexol 100 ml 06/28/25 18:11 06/28/25 18:11 Iohexol 350 Mg/Ml 100 Ml Infus..Btl IV 06/28/25 18:12 85 ml ONCE ONE Administration Lidocaine HCl 15 ml 06/28/25 16:32 06/28/25 17:28 Lidocaine Hcl Viscous 2 % 15 Ml Solution MUCOUS MEM 06/28/25 16:33 15 ml ONCE ONE Administration Lidocaine HCl 15 ml 06/28/25 17:06 06/28/25 17:28 Lidocaine Hcl Viscous 2 % 15 Ml Solution MUCOUS MEM 06/28/25 17:07 15 ml ONCE ONE Administration Morphine Sulfate 4 mg 06/28/25 18:50 06/28/25 19:08 Morphine Sulfate 4 Mg/Ml Cartridge IVPUSH 06/28/25 18:51 4 mg ONCE ONE Administration Protocol Ondansetron HCl 4 mg 06/28/25 14:08 06/28/25 14:10 Ondansetron Odt 4 Mg Tab.Rapdis TRANSLINGU 06/28/25 14:09 4 mg ONCE ONE Administration Ondansetron HCl 4 mg 06/28/25 16:32 06/28/25 17:28 Ondansetron Odt 4 Mg Tab.Rapdis TRANSLINGU 06/28/25 16:33 4 mg ONCE ONE Administration Medical Decision Making Medical Decision Making MDM Narrative: 59-year-old male history of hypertension diabetes presented to for evaluation of right upper quadrant pain that started this morning. Patient has had ultrasound performed. No signs of cholecystitis. On my differential may be cholecystitis versus gastritis versus GERD. Patient does not have any elevated bilirubin or alk-phos. No elevated leukocytosis. I do not think patient has sepsis We will plan to give patient some p.o. Maalox and lidocaine to see if this may be gastric in nature. We will consider CT imaging for further assessment of his right upper quadrant pain. Patient's CT imaging shows small bowel obstruction. I did discuss the case with the general surgeon on-call Dr. Daniel who will plan to admit the patient to the hospital. 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 Differential Diagnosis Differential Diagnoses: The differential diagnosis associated with the presentation includes Cholecystitis, gastritis, colitis, gastroenteritis, GERD Consult Healthcare Provider Management of the patient was discussed with: Wind Turbine Mechanic (Dr. Post) Lab Data MDM Lab Attestation statement: I reviewed the patient's lab results. 06/28/25 14:14 06/28/25 14:14 Labs: Lab Results 06/28/25 Range/Units 14:14 WBC 7.2 (4.8-10.8) X10*3/uL RBC 4.51 L (4.60-5.80) X10*6/uL Hgb 12.3 L (14.0-18.0) g/dl Hct 39.6 L (42.0-52.0) % MCV 87.8 (80.0-98.0) fL MCH 27.3 (27.0-33.0) pg MCHC 31.1 (31.0-36.0) g/dl RDW 16.6 H (11.0-16.0) % Plt Count 173 (160-400) X10*3/uL MPV 10.4 (9.4-12.4) fL Immature Gran % (Auto) 0.1 (0.0-0.4) % Neut % (Auto) 76.1 H (45-73) % Lymph % (Auto) 15.7 L (20-40) % Gosper % (Auto) 6.8 (2-11) % Eos % (Auto) 1.0 (0-4) % Baso % (Auto) 0.3 (0-2) % Lymph # (Auto) 1.1 L (1.2-4.9) X10*3/uL Gosper # (Auto) 0.5 (0.1-1.2) X10*3/uL Eos # (Auto) 0.1 (0.0-0.4) X10*3/uL Baso # (Auto) 0.0 (0.0-0.2) X10*3/uL Abs Immat Gran (auto) 0.01 (0.00-0.03) X10*3/uL Absolute Neuts (auto) 5.5 (2.0-8.3) x10*3/uL Absolute Nucleated RBC 0.000 (0.0-0.012) X10*3/uL Nucleated RBC % (auto) 0.0 (0.0-0.2) /100WBC Sodium 143 (135-145) mmol/L Potassium 4.1 (3.3-5.1) mmol/L Chloride 107 (96-108) mmol/L Carbon Dioxide 27 (22-29) mmol/L Anion Gap 13 (12-20) BUN 10 (9-16) mg/dL Creatinine 0.88 (0.5-1.4) mg/dL Estim Creat Clear Calc 116.3 Estimated GFR > 60 Random Glucose 126 H (60-115) mg/dL Calcium 9.3 D (8.4-10.2) mg/dL Total Bilirubin 0.5 (0.0-1.0) mg/dL Direct Bilirubin 0.2 (0.0-0.5) mg/dL AST 28 (5-37) U/L ALT 22 (0-40) U/L Alkaline Phosphatase 86 (39-117) U/L Total Protein 7.0 (6.5-8.0) g/dL Albumin 4.4 (3.5-5.0) g/dL Lipase 46 (8-78) U/L Independent Interpretation I performed an independent interpretation of an: CT Scan Radiology Impression Discussion of test interpretation with radiology: I have reviewed the radiologist's reading. Prescription Management I considered prescription management with: Pain Medication Critical Care Time Critical Care Time Critical Care Time: Yes Total Critical Care Time: 36 Attestation: Time is exclusive of separately billable procedures. Time includes: direct patient care, patient reassessment, coordination of patient care, interpretation of data (laboratory data, pulse oximetry, arterial blood gases and chest xrays), review of patient's medical records, medical consultation and documentation of patient care. Procedures excluded from critical care time: central intravenous line placement and electrocardiography. Discharge Plan Discharge Clinical Impression: Small bowel obstruction Patient Disposition: Admitted As Inpatient
[2025-06-28 14:26] LABS: MANUAL DIFF FLAG NO
[2025-06-28 14:30] LABS: Hematocrit 39.6 % (42.0-52.0); Hemoglobin 12.3 g/dl (14.0-18.0); Imm Gran Abs Auto 0.01 X10*3/uL (0.00-0.03); Imm Gran Pct Auto 0.1 % (0.0-0.4); Lymphocytes Absolute Auto 1.1 X10*3/uL (1.2-4.9); Mean Corpuscular HGB Conc 31.1 g/dl (31.0-36.0); Mean Corpuscular Hemoglobin 27.3 pg (27.0-33.0); Mean Corpuscular Volume 87.8 fL (80.0-98.0); NRBC Abs Auto 0.000 X10*3/uL (0.0-0.012); NRBC Pct Auto 0.0 /100WBC (0.0-0.2); Platelet Count 173 X10*3/uL (160-400); Red Blood Count 4.51 X10*6/uL (4.60-5.80); White Blood Count 7.2 X10*3/uL (4.8-10.8)
[2025-06-28 14:44] LABS: Alanine Aminotransferase 22 U/L (0-40); Albumin Level 4.4 g/dL (3.5-5.0); Alkaline Phosphatase 86 U/L (39-117); Anion Gap 13 (12-20); Aspartate Amino Transferase 28 U/L (5-37); Blood Urea Nitrogen 10 mg/dL (9-16); Calcium 9.3 mg/dL (8.4-10.2); Carbon Dioxide 27 mmol/L (22-29); Chloride 107 mmol/L (96-108); Creatinine Clr Calc Pharmacy 116.3; Estimated Glomerular Filt Rate > 60; Lipase 46 U/L (8-78); Potassium 4.1 mmol/L (3.3-5.1); Sodium 143 mmol/L (135-145); Total Protein 7.0 g/dL (6.5-8.0)
[2025-06-28 17:07] VITALS: BP 143/94; PULSE 87; RESP 18; TEMP 36.8; O2SAT 92
[2025-06-28] MEDS: guaiFENesin LA 600 MG TAB.ER.12H PO (17:28)
[2025-06-28] MEDS: Magnesium Hydrox/Alum Hydrox 30 ML ORAL.SUSP PO (17:28)
[2025-06-28] MEDS: Lidocaine HCl Viscous 2 % 15 ML SOLUTION MUCOUS MEM ×2 (17:28)
[2025-06-28] MEDS: iohexoL 350 MG/ML 100 ML INFUS..BTL IV (18:11)
[2025-06-28 19:09] VITALS: BP 147/93; PULSE 93; RESP 16; O2SAT 95
[2025-06-28] MEDS: Lactated Ringers 1,000 ML 100 ML IVCONT (21:02)
--- NOTE | 2025-06-28 21:38 | PHA.MEDREC ---
Addendum entered by Сергей Stafford, PharmD 06/28/25 22:15: MED REC CHECKED BY [facility] Original Note: Pharmacy Consult ? Medication Reconciliation Pharmacy has completed the medication reconciliation. Spoke with pt and he confirmed his medications. Pt confirmed he takes Lantus Solostar 25 units daily and Mounjaro 10mg once a week on Fridays and took it this morning along with all his morning medications.
--- NOTE | 2025-06-28 22:00 | HO.NURTONUR ---
Pt from home with complaint of right upper quadrant pain that began suddenly this morning with some associated nausea. Pt reports pain and nausea as intermittent. Pt denies any chest pain, diarrhea, vomiting, fevers/chills, or any other symptoms of concern. While in the ED pt received GI cocktail with little relief. Pts ultrasound negative for cholecystitis. CT scan of abd/pelvis revealed small bowel obstruction. Pt being admitted for observation and surgical consult. Pt is caox4, able to make his needs known, and ambulates with steady gait. Pt has 20G IV in LFA, has been medicated per mar with continuous IVF of LR @ 100ml/hr. Pt finds relief with PRN morphine and zofran.
[2025-06-28 23:38] VITALS: BMI 38.0
[2025-06-28 23:45] VITALS: BP 116/71; PULSE 83; RESP 16; TEMP 36.7; O2SAT 93
[2025-06-28 23:46] VITALS: BP 116/71; PULSE 83; RESP 16; TEMP 36.7; O2SAT 93
--- OUTSIDE RECORDS SUMMARY | 2025-06-29 00:43 | XMS_ITS | Clinical Summary ---
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
--- OUTSIDE RECORDS SUMMARY | 2025-06-29 00:43 | XMS_ITS ---
Author Name Laura Barros NP Arian Address [address] [place] [address] Phone [phone] [facility] Care Team Providers Care Hotel Security Officer Name Role Phone Laura Barros Unavailable [phone] [facility] Unavailable Julia Vann Unavailable [phone] OMID OLVERA Unavailable [phone] TYREE PEACOCK Unavailable [phone] DOMINIQUE CHINO Unavailable [phone] Shyann Bermudez Unavailable [phone] Reason for Referral Not Available Allergies, adverse [...] mg Tab TAKE 1 TABLET BY [facility] EVERYDAY AT BEDTIME 2022-10-21 No Data Available [...] organ damage (headache, vision changes, chest pain)/ Melting Operator on proper BP monitoring technique and reassess/ [...] 95 for video, modifier 93 for phone [facility], ([place]2023 Type 2 diabetes mellitus wit h other specified complicationHyperlipidemia, unspecifiedEssential (primary) hypertensionMalignant neoplasm of appendixMajor depressive disorder, recurrent, mildMigraine, unspecified, not intractable, without status migrainosusMorbid (severe) obesity due to excess caloriesBody mass index (BMI) 35.0-35.9, adult New patient, 30-44min 1 stable chronic or 2 minor; add modifier 95 for video, modifier 93 for phone [facility] 02[place]15/2023 New patient, 30-44min 1 stable chronic or 2 minor; add modifier 95 for video, modifier 93 for phone [facility] ([place] 02/15/20[place] New patient, 30-44min 1 stable chronic or 2 minor; add modifier 95 for video, modifier 93 for phone [facility] 02[place]20[place] New patient, 30-44min 1 stable chronic or 2 minor; add modifier 95 for video, modifier 93 for phone [facility] 02/15/2023 New patient, 30-44min 1 stable chronic or 2 minor; add modifier 95 for video, modifier 93 for phone [facility] 02/15/2023 New patient, 30-44min 1 stable chronic or 2 minor; add modifier 95 for video, modifier 93 for phone [facility] [place] 02/15/2023 Estab. patient 30-39min; chronic exacerbation, 2 stable chronic or 1 acute illness add add modifier 95 for video, (do not use for phone, instead use [id number]) [facility] 05/17/2024 Type 2 diabetes mellitus wit h [...] (do not use for phone, instead use 26879-43) [facility] ([place] 05[place]17/20[place] Estab. patient 30-39min; chronic exacerbation, 2 stable chronic or 1 acute illness add add modifier 95 for video, (do not use for phone, instead use 42706-89) [facility] 05/17/20[place] Estab. patient 30-39min; chronic exacerbation, 2 stable chronic or 1 acute illness add add modifier 95 for video, (do not use for phone, instead use 78136-97) [facility] 05/17/20[place] Estab. patient 30-39min; chronic exacerbation, 2 stable chronic or 1 acute illness add add modifier 95 for video, (do not use for phone, instead use 75874-04) [facility] 05/17/20[place] Estab. patient 30-39min; chronic exacerbation, 2 stable chronic or 1 acute illness add add modifier 95 for video, (do not use for phone, instead use 27921-83) [facility] 05[place]17/[place] Estab. patient 30-39min; chronic exacerbation, 2 stable chronic or 1 acute illness add add modifier 95 for video, (do not use for phone, instead use 30449-27) [facility] 05/17/20[place] Estab. patient 30-39min; chronic exacerbation, 2 stable chronic or 1 acute illness add add modifier 95 for video, (do not use for phone, instead use 35683-50) [facility] 05[place]17/20[place] Estab. patient 30-39min; chronic exacerbation, 2 stable chronic or 1 acute illness add add modifier 95 for video, (do not use for phone, instead use 50048-40) [facility] 05/17/20[place] Estab. patient 30-39min; chronic exacerbation, 2 stable chronic or 1 acute illness add add modifier 95 for video, (do not use for phone, instead use 87123-95) [facility] ([place] 05/17/2024 Vital Signs Date of Collection Vitals [...] Time Current Smoking Status Never smoker 2025-06-15 5 Sex Male History of Procedures Procedures Service Procedure code Service date Servicing provider Phone# New patient, 30-44min 1 stable chronic or 2 minor; add modifier 95 for video, modifier 93 for phone [id number] 2023-02-15 No Data Available No Data Available [...] (do not use for phone, instead use [id number]) [id number] 2024-05-17 No Data Available No Data Availa [...] organ damage (headache, vision changes, chest pain)/ Melting Operator on proper BP monitoring technique and reassess/ [...]
--- OUTSIDE RECORDS SUMMARY | 2025-06-29 00:44 | XMS_ITS | Clinical Summary ---
Author Organization [address] [facility] Address [address] [place] [address] Phone Care Team Providers Care General Office Assistant Name Role Phone Shyann Bermudez Primary Care Provider Allergies Active Allergy Reactions Criticality Noted Date Comments Lisinopril 12/13/2024 Encounters Date Type Department Care Team Description 05/22/2025 9:17 AM EDT - 05/22/2025 11:59 PM EDT Hospital Encounter [facility] PET Scan [address] [place] [phone] Secondary malignant neoplasm of retroperitoneum and peritoneum [...] Signed Date: 05/29/2025 13:11 ET Workstation ID: [id number] Transcribed By: Self Edit Transcribed Date: 05/29/2025 [...] Signed Date: 05/29/2025 13:11 ET Workstation ID: [id number] Transcribed By: Self Edit Transcribed Date: 05/29/2025 12:40 ET us Jil Robles MD IMG NM PROCEDURES Final Result from Last [address] [place] [address] [facility] [place] [address] Care Teams General Office Assistant Relationship Specialty Start Date End Date Shyann Bermudez PA [address] [place] [address] [address] [place] [phone] PCP - General Physician Beck Tender 10/24/24
[2025-06-29 03:13] VITALS: BP 117/58; PULSE 69; RESP 14; TEMP 36.3; O2SAT 94
[2025-06-29] MEDS: Lactated Ringers 1,000 ML 100 ML IVCONT ×3 (06:04→23:54)
[2025-06-29 06:40] LABS: Alanine Aminotransferase 19 U/L (0-40); Albumin Level 3.9 g/dL (3.5-5.0); Alkaline Phosphatase 78 U/L (39-117); Anion Gap 10 (12-20); Aspartate Amino Transferase 27 U/L (5-37); Blood Urea Nitrogen 9 mg/dL (9-16); Calcium 8.5 mg/dL (8.4-10.2); Carbon Dioxide 33 mmol/L (22-29); Chloride 104 mmol/L (96-108); Creatinine Clr Calc Pharmacy 118.7; Estimated Glomerular Filt Rate > 60; Potassium 4.3 mmol/L (3.3-5.1); Sodium 143 mmol/L (135-145); Total Protein 6.2 g/dL (6.5-8.0)
[2025-06-29 07:54] VITALS: BP 121/51; PULSE 84; RESP 16; TEMP 36.3; O2SAT 94
--- NOTE | 2025-06-29 09:10 | PM.HPGS ---
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 He sees Oncology here in his recently seen Dr. Norton who did his right colectomy. He has been having some issues with the abdominal pain and he needs to get further workup for metastatic disease. He says that he thinks that he is supposed to be getting a PET scan at [facility] soon. He comes in because he was having increasing abdominal pain especially in the right upper quadrant area and he was feeling a little nauseated. Talking to his she was concerned that he may have problems with his gallbladder so he came to the emergency room. Here ultrasound of the gallbladder did not reveal any issues but he was tender in the right upper quadrant. CT scan was carried out which shows some thickened and distended small bowel and there is fecalization of some of this material here on the right side. Patient has been having small bowel movements but passing good gas. Denies any fevers or chills. With a little nauseated but did not throw up Review of Systems Review of Systems: Yes all other systems are reviewed and are negative PMFSH Past Medical History Medical History Elevated CEA Colon cancer Anemia History of blood transfusion (09/20/24) History of colon cancer Infected cyst of skin Cellulitis of abdominal wall Eye inflammation Sleep apnea Ambulates with cane Back pain due to injury Morbid obesity Umbilical hernia Obesity (BMI 30-39.9) Dyslipidemia Diabetic nephropathy associated with type 2 diabetes mellitus Epidermal cyst HTN (hypertension) Diabetes type 2, controlled Family History Family History Father Diabetes Heart disease Mother Diabetes Heart disease Other No family history of cancer Surgical History Surgical History History of esophagogastroduodenoscopy (EGD) History of colon resection S/P right colectomy H/O colonoscopy S/P appendectomy History of umbilical hernia repair (~01/08/22) Hx of removal of cyst Social History Social History (Reviewed 06/26/25 @ 09:08 by LATHA Vila Household Members: Spouse Housing: House Are you a primary health care coordinator to a significant other at home: No Do you presently have visiting nurse or other home services: No Alcohol intake: never Comment: Ofirmev infusing at time of xfer Patient Tobacco Use Status: Never used Tobacco Smoked in Last 30 Days: No Use of substances other than those prescribed or required for medical reasons: No Currently Displaying Signs/Symptoms of Drug Intoxication Withdrawal: No Advance Directives: No Advance Directives Information Provided: Yes Do you have a plan to hurt others: No Plan service: No Current occupational status: disabled Meds Allergies Allergy/AdvReac Type Severity Reaction Status Date / Time oxaliplatin Allergy Intermediate Shortness Verified 06/28/25 14:07 of Breath lisinopril (LISINOPRIL) Allergy Mild RASH Verified 06/28/25 14:07 Active Medications: Current Medications Acetaminophen (Acetaminophen 325 Mg Tablet) 650 mg PO Q6H PRN PRN Reason: Pain, Mild 1-3,fever,headache Last Admin: 06/29/25 06:01 Dose: 650 mg Lactated Ringer's (Lr) 1,000 mls @ 100 mls/hr IVCONT .Q10H TEENA Last Admin: 06/29/25 06:04 Dose: 100 mls/hr Melatonin (Melatonin 3 Mg Tablet) 6 mg PO BEDTIME PRN PRN Reason: Insomnia Morphine Sulfate (Morphine Sulfate 4 Mg/Ml Cartridge) 2 mg IVPUSH Q4H PRN; Protocol PRN Reason: Pain, Severe (Pain Scale 7-10) Last Admin: 06/29/25 06:37 Dose: 2 mg Ondansetron HCl (Ondansetron Hcl 4 Mg/2 Ml Vial) 4 mg IVPUSH Q8H PRN PRN Reason: Nausea and Vomiting Last Admin: 06/28/25 21:12 Dose: 4 mg Sodium Chloride (0.9 % Sodium Chloride Flush 3 Ml Syringe) 3 ml IVFLUSH QSHIFT [facility] Last Admin: 06/29/25 08:37 Dose: Not Given Home Medications ?Medication ?Instructions ?Recorded ?Confirmed ?Last Taken ?Type atorvastatin 10 mg tablet 10 mg PO DAILY 10/22/20 06/28/25 06/28/25 History carvedilol 12.5 mg tablet 12.5 mg PO BID 10/22/20 06/28/25 06/28/25 History cholecalciferol (vitamin D3) 25 25 mcg PO DAILY 10/22/20 06/28/25 06/28/25 History mcg (1,000 unit) capsule trazodone 150 mg tablet 150 mg PO BEDTIME 11/04/20 06/28/25 06/27/25 History sertraline 100 mg tablet 150 mg PO BEDTIME 01/04/22 06/28/25 06/27/25 History buspirone 10 mg tablet 10 mg PO DAILY 09/20/23 06/28/25 06/28/25 History clotrimazole 1 % topical cream 1 appl topical BID PRN Rash 09/20/23 06/28/25 09/03/24 History fluticasone propionate 50 1 - 2 spray intranasal DAILY PRN 04/09/24 06/28/25 09/03/24 History mcg/actuation nasal cold and allergies spray,suspension tirzepatide 10 mg/0.5 mL 10 mg subcut FR 06/04/25 06/28/25 06/28/25 History subcutaneous pen injector (Shanti) ascorbic acid (vitamin C) 500 mg 500 mg PO BID 06/26/25 06/28/25 06/28/25 History chewable tablet (Vitamin C) cetirizine 10 mg tablet 10 mg PO DAILY PRN Allergy Symptoms 06/26/25 06/28/25 Unknown History insulin glargine 100 unit/mL (3 25 unit subcut DAILY 06/28/25 06/28/25 06/28/25 History mL) subcutaneous pen (Lantus Solostar U-100 Insulin) Physical Exam Vital Signs: Vital Signs: Last Vital Signs Temp 97.3 F 06/29/25 07:54 Pulse 84 06/29/25 07:54 Resp 16 06/29/25 07:54 BP 121/51 L 06/29/25 07:54 Pulse Ox 94 06/29/25 07:54 O2 Del Method Room Air 06/29/25 07:54 BMI result Body Mass Index 38.0 Const: General: cooperative, healthy appearing and comfortable Resp: Effort & Inspection: normal respiratory effort Auscultation: clear to auscultation bilaterally Cardio: Rate: regular rate Rhythm: regular rhythm GI: Other: Abdomen is soft little distended does have bowel sounds tender in the right upper quadrant and anterior abdomen mild guarding no rebound no peritoneal signs positive bowel sounds Results Results Labs: Short CBC 06/28/25 Range/Units 14:14 WBC 7.2 (4.8-10.8) X10*3/uL Hgb 12.3 L (14.0-18.0) g/dl Hct 39.6 L (42.0-52.0) % Plt Count 173 (160-400) X10*3/uL BMP 06/28/25 06/29/25 14:14 06:08 Sodium 143 143 Potassium 4.1 4.3 Chloride 107 104 Carbon Dioxide 27 33 H BUN 10 9 Creatinine 0.88 0.87 Calcium 9.3 D 8.5 D Liver Function 06/28/25 06/29/25 Range/Units 14:14 06:08 Total Bilirubin 0.5 0.5 (0.0-1.0) mg/dL Direct Bilirubin 0.2 (0.0-0.5) mg/dL AST 28 27 (5-37) U/L ALT 22 19 (0-40) U/L Alkaline Phosphatase 86 78 (39-117) U/L Albumin 4.4 3.9 (3.5-5.0) g/dL Abdomen CT scan report/results: report reviewed and image reviewed CT scan - pelvis: report reviewed and image reviewed Additional studies: [address] [place] [address] CT Scan Report Signed with Regino Patient: Titus Benitez MR#: [id number] : 1965 Acct:[id number] Age/Sex: 59 / M ADM Date: 06/28/25 Loc: HO.ED Attending Dr: Ordering Physician: Mary Lou Villanueva DO Date of Service: 06/28/25 Procedure(s): CT abdomen pelvis w IV con Accession Number(s): [id number] cc: Daniella Colon MD; Mary Lou Villanueva DO~ Report Number: [id number]: Total DLP = 899.00 mGy-cm Reason for Exam: ruq pain ADDENDUMThis document has been electronically signed by: Perez Sofia MD on 06/28/2025 18:44:16 ADDENDUM: This report was discussed with Rich Valera MD on Jun 28, 2025 18:50:00 EST. This document has been electronically signed by: Kassi Moncada on 06/28/2025 18:50:19 Addendum Dictated By: Perez Sofia MD Addendum Signed By: <Electronically signed by Perez Sofia MD in OV> 06/28/251850 Addendum Cosigned By: DD/ TD/TT: 06/28/25 CLINICAL HISTORY: ruq pain Exam: Contrast-enhanced CT abdomen and pelvis with multiplanar reformats. Comparison: 04/26/2025. Findings: CT abdomen: Lung bases are clear. Liver is free of focal lesions and ductal dilatation. Gallbladder is unremarkable. Spleen is unremarkable. Pancreas and adrenal glands appear unremarkable. Kidneys appear unremarkable. Trace amount of free fluid is likely reactive. No retroperitoneal masses or adenopathy. Abdominal aorta is normal caliber. Bowel loops reveal dilated small bowel loops within the right hemiabdomen measuring up to 4.2 cm diameter, with surrounding stranding with a transition to nondistention within the anterior right pelvis (5; 528-490), findings compatible with small-bowel obstruction. There is mild mesenteric edema involving dilated small bowel loops. No other abnormal bowel wall thickening or distention. A fat containing anterior abdominal wall hernia (for example, 5; 423) is present. No bowel loops in the hernia sac. CT pelvis: Prostate gland and seminal vesicles are stable. Urinary bladder is free of gross filling defects. No pelvic masses, fluid or adenopathy. Osseous structures reveal no destructive osseous lesions. Impression: 1. Evidence of small-bowel obstruction, with transition in the anterior right pelvis. This document has been electronically signed by: Perez Sofia MD on 06/28/2025 18:44:16 Dictated By: Perez Sofia MD Signed By: <Electronically signed by Perez Sofia MD in OV> 06/28/251844 DD/ 43 TD/TT: 06/28/251843 Service Dispatcher: Patient: Titus Benitez MR#: [id number] : 1965 Acct:[id number] Age/Sex: 59 / M ADM Date: 06/28/25 Loc: HO.ED Attending Dr: Ordering Physician: Cynthia Spencer NP Date of Service: 06/28/25 Procedure(s): US abdomen limited Accession Number(s): [id number] cc: Daniella Colon MD; Cynthia Spencer NP~ Reason for Exam: RUQ tenderness, GB and GCD pls EXAMINATION: US ABDOMEN LIMITED CLINICAL INFORMATION: Right upper quadrant tenderness. COMPARISON: Previous CT of the abdomen and pelvis April 2025 and MR of the abdomen May 2025. TECHNIQUE: Real-time imaging of the gallbladder and bile ducts FINDINGS: Exam is limited due to body habitus and bowel gas. GALLBLADDER: The gallbladder is physiologically distended without evidence of stones, sludge, polyps, wall thickening or pericholecystic fluid. cytotechnologist/cytology supervisor reports the patient is tender over the gallbladder/positive sonographic Jacobsen's sign. COMMON BILE DUCT: Normal in caliber measuring 0.3 cm in diameter. FREE FLUID: None. US/US abdomen limited IMPRESSION: Normal appearing gallbladder and common bile duct. cytotechnologist/cytology supervisor reports the patient is tender over the gallbladder/positive sonographic Jacobsen's sign. Consider further imaging if clinically warranted. Electronically signed by: Beatriz Liao MD 06/28/2025 04:03 PM [facility] Dictated By: Beatriz Liao MD Signed By: <Electronically signed by Beatriz Liao MD in OV> 06/28/25 1603 DD/ 1536 TD/TT: 06/28/25 1540 Service Dispatcher: MYKEL Assessment and Plan (1) Small bowel obstruction: Status: Acute Plan 59-year-old male with complicated past history of perforated appendicitis which revealed adenocarcinoma and he underwent right colectomy and treatment with Oncology team. Comes in now with the abdominal pain on the right side gallbladder workup is relatively negative other than being tender. Reviewing CAT scan there are small bowel loops on the anterior abdominal wall area which are little more thickened and distended there maybe some enteritis and maybe this is what is causing his pain on the right side. It does not seem to be obstructed as he is passing gas and just having little bit of some stools yesterday and today although he usually goes a lot more. Plan to admit keep him NPO maybe try some Mag citrate and see how he does. If we are still concerned about his gallbladder HIDA scan maybe useful Quality Stroke Does the patient have a stroke diagnosis?: No VTE Prior VTE?: No VTE Risk Level:: Surgical - low VTE Device Contraindication: Treatment Not Indicated VTE Drug Contraindication: Treatment Not Indicated Procedures Date of Service Date of Service: 06/29/25
[2025-06-29 11:43] VITALS: BP 113/73; PULSE 101; RESP 16; TEMP 36.4; O2SAT 95
--- NOTE | 2025-06-29 12:35 | MHC.CM.PN ---
GULSHAN delivered. Patient lives at home w/ who is also HCP and AFC care advocate through [facility]. assists w/ ADL's PRN. Ambulates w/ cane. Has CPAP - [employer] is supplier. PCP Daniella Colon MD HCP on file and verified. Has used [facility] in the past, no VNA services at this time. DP: Home, resume AFC, or daughter to transport. CM will continue to follow.
[2025-06-29] MEDS: 0.9 % Sodium Chloride Flush 3 ML SYRINGE IVFLUSH (15:26)
[2025-06-29 15:34] VITALS: BP 154/83; PULSE 100; RESP 18; TEMP 36.6; O2SAT 96
[2025-06-29 19:49] VITALS: BP 109/57; PULSE 78; RESP 15; TEMP 36.1; O2SAT 90
[2025-06-29 22:29] VITALS: PULSE 84; RESP 18; O2SAT 97
[2025-06-30] VITALS (8 sets, daily range): BP systolic 115–156; BP diastolic 60–87; PULSE 76–94; RESP 16–18; TEMP 36–36.6; O2SAT 93–97
[2025-06-30] MEDS: Lactated Ringers 1,000 ML 100 ML IVCONT (08:33)
[2025-06-30] MEDS: 0.9 % Sodium Chloride Flush 3 ML SYRINGE IVFLUSH ×3 (08:34→20:15)
[2025-06-30 16:25] LABS: Glucose, Whole Blood 135 mg/dL (60-115)
[2025-06-30 20:05] LABS: Glucose, Whole Blood 125 mg/dL (60-115)
--- NOTE | 2025-06-30 22:32 | PC.NURSE ---
Per pt, had semi-formed brown bowel movement. Abdomen round & large, but soft. Pt reports tenderness upon palpation to RUQ. +BS. Passing gas.
[2025-07-01 06:12] LABS: MANUAL DIFF FLAG NO
[2025-07-01 06:18] LABS: Hematocrit 36.0 % (42.0-52.0); Hemoglobin 11.0 g/dl (14.0-18.0); Imm Gran Abs Auto 0.02 X10*3/uL (0.00-0.03); Imm Gran Pct Auto 0.4 % (0.0-0.4); Lymphocytes Absolute Auto 1.4 X10*3/uL (1.2-4.9); Mean Corpuscular HGB Conc 30.6 g/dl (31.0-36.0); Mean Corpuscular Hemoglobin 27.2 pg (27.0-33.0); Mean Corpuscular Volume 89.1 fL (80.0-98.0); NRBC Abs Auto 0.000 X10*3/uL (0.0-0.012); NRBC Pct Auto 0.0 /100WBC (0.0-0.2); Platelet Count 138 X10*3/uL (160-400); Red Blood Count 4.04 X10*6/uL (4.60-5.80); White Blood Count 5.0 X10*3/uL (4.8-10.8)
[2025-07-01 06:38] LABS: Alanine Aminotransferase 11 U/L (0-40); Albumin Level 3.7 g/dL (3.5-5.0); Alkaline Phosphatase 68 U/L (39-117); Anion Gap 13 (12-20); Aspartate Amino Transferase 25 U/L (5-37); Blood Urea Nitrogen 14 mg/dL (9-16); Calcium 8.5 mg/dL (8.4-10.2); Carbon Dioxide 29 mmol/L (22-29); Chloride 104 mmol/L (96-108); Creatinine Clr Calc Pharmacy 117.3; Estimated Glomerular Filt Rate > 60; Potassium 3.5 mmol/L (3.3-5.1); Sodium 142 mmol/L (135-145); Total Protein 5.8 g/dL (6.5-8.0)
[2025-07-01 07:15] VITALS: BP 171/92; PULSE 72; RESP 18; TEMP 36.9; O2SAT 96
[2025-07-01 07:29] LABS: Glucose, Whole Blood 94 mg/dL (60-115)
[2025-07-01] MEDS: 0.9 % Sodium Chloride Flush 3 ML SYRINGE IVFLUSH ×3 (07:38→20:11)
--- NOTE | 2025-07-01 08:01 | P.PNGS_ITS ---
Subjective Subjective Date of Service: 07/02/25 Interval history: The patient is known to me for history of right colon resection for cancer Previous procedure was complicated by a large abscess Admitted for right-sided abdominal pain, described as sharp No vomiting, no nausea Passing flatus Tolerating diet Physical Exam 2 Vital Signs: Vital Signs: Last Vital Signs Temp 98.4 F 07/01/25 07:15 Pulse 72 07/01/25 07:15 Resp 18 07/01/25 07:15 BP 171/92 H 07/01/25 07:15 Pulse Ox 96 07/01/25 07:15 O2 Del Method Room Air 07/01/25 07:15 BMI result Body Mass Index 38.0 Const: General: comfortable and no acute distress Resp: Effort & Inspection: respiratory distress GI: Palpation (GI): Soft to palpation, not firm, Tenderness to palpation present (GI) (Mild tenderness in the right side) and no guarding Objective Data Active Medications Acetaminophen (Acetaminophen 325 Mg Tablet) 650 mg PO Q6H PRN PRN Reason: Pain, Mild 1-3,fever,headache Last Admin: 06/29/25 06:01 Dose: 650 mg Documented By: SATYA Atorvastatin Calcium (Atorvastatin Calcium 10 Mg Tablet) 10 mg PO DAILY [facility] Last Admin: 07/01/25 07:36 Dose: 10 mg Documented By: HAYDEE Buspirone HCl (Buspirone Hcl 10 Mg Tablet) 10 mg PO DAILY [facility] Last Admin: 07/01/25 07:36 Dose: 10 mg Documented By: HAYDEE Carvedilol (Carvedilol 12.5 Mg Tablet) 12.5 mg PO BID [facility]; Protocol Last Admin: 07/01/25 07:36 Dose: 12.5 mg Documented By: HAYDEE Clotrimazole (Clotrimazole 1 % Cream 15 Gm Tube) 1 appl TOPICAL BID PRN; Protocol PRN Reason: Rash Melatonin (Melatonin 3 Mg Tablet) 6 mg PO BEDTIME PRN PRN Reason: Insomnia Morphine Sulfate (Morphine Sulfate 4 Mg/Ml Cartridge) 2 mg IVPUSH Q4H PRN; Protocol PRN Reason: Pain, Severe (Pain Scale 7-10) Last Admin: 06/29/25 06:37 Dose: 2 mg Documented By: SATYA Ondansetron HCl (Ondansetron Hcl 4 Mg/2 Ml Vial) 4 mg IVPUSH Q8H PRN PRN Reason: Nausea and Vomiting Last Admin: 06/28/25 21:12 Dose: 4 mg Documented By: MARIO Sertraline HCl (Sertraline Hcl 50 Mg Tablet) 150 mg PO BEDTIME [facility] Last Admin: 06/30/25 20:15 Dose: 150 mg Documented By: SCHUYLER Sodium Chloride (0.9 % Sodium Chloride Flush 3 Ml Syringe) 3 ml IVFLUSH QSHIFT [facility] Last Admin: 07/01/25 07:38 Dose: 3 ml Documented By: HAYDEE Trazodone HCl (Trazodone Hcl 50 Mg Tablet) 150 mg PO BEDTIME [facility] Last Admin: 06/30/25 20:15 Dose: 150 mg Documented By: SCHUYLER Labs 07/01/25 05:30 07/01/25 05:30 Labs: Laboratory Results - last 24 hr 06/30/25 06/30/25 07/01/25 16:22 20:01 05:30 MCV 89.1 MCH 27.2 MCHC 30.6 L RDW 16.3 H Plt Count 138 L MPV 10.3 Immature Gran % (Auto) 0.4 Neut % (Auto) 62.1 Lymph % (Auto) 27.7 [place] % (Auto) 8.4 Eos % (Auto) 1.0 Baso % (Auto) 0.4 Lymph # (Auto) 1.4 [place] # (Auto) 0.4 Eos # (Auto) 0.1 Baso # (Auto) 0.0 Abs Immat Gran (auto) 0.02 Absolute Neuts (auto) 3.1 Absolute Nucleated RBC 0.000 Nucleated RBC % (auto) 0.0 Anion Gap 13 Estim Creat Clear Calc 117.3 Estimated GFR > 60 POC Glucose 135 H 125 H Random Glucose 80 Calcium 8.5 Total Bilirubin 0.3 AST 25 ALT 11 Alkaline Phosphatase 68 Total Protein 5.8 L Albumin 3.7 07/01/25 07:18 MCV MCH MCHC RDW Plt Count MPV Immature Gran % (Auto) Neut % (Auto) Lymph % (Auto) [place] % (Auto) Eos % (Auto) Baso % (Auto) Lymph # (Auto) [place] # (Auto) Eos # (Auto) Baso # (Auto) Abs Immat Gran (auto) Absolute Neuts (auto) Absolute Nucleated RBC Nucleated RBC % (auto) Anion Gap Estim Creat Clear Calc Estimated GFR POC Glucose 94 Random Glucose Calcium Total Bilirubin AST ALT Alkaline Phosphatase Total Protein Albumin Procedures Date of Service Date of Service: 07/02/25 Progress Note: A&P Assessment and plan (1) Small bowel obstruction: Status: Acute Assessment and Plan: Clinically looks well Abdominal pain better No nausea or vomiting Review of CAT scan shows an area of the small bowel which is dilated with some fecalization No obvious mass He is actually awaiting a PET scan as an outpatient in view of rising CEA level I will review he has CAT scan with the radiologist Currently tolerating diet Cancer recurrence/ Metastatic workup Time Spent With Patient Time: Total time managing care of this patient today ____ minutes. Quality Stroke Does the patient have a stroke diagnosis?: No VTE Prior VTE?: No VTE Risk Level:: Surgical - low VTE Device Contraindication: Treatment Not Indicated VTE Drug Contraindication: Treatment Not Indicated
[2025-07-01 11:29] LABS: Glucose, Whole Blood 131 mg/dL (60-115)
[2025-07-01 12:00] VITALS: BP 156/85; PULSE 70; RESP 18; TEMP 37.1; O2SAT 96
--- NOTE | 2025-07-01 14:41 | MHC.CM.PN ---
Patient has not been cleared to discharge today. DP Home with resumption of AFC. A Family member will provide transportation home.
[2025-07-01 15:13] VITALS: BP 146/80; PULSE 80; RESP 17; TEMP 36.3; O2SAT 95
[2025-07-01 16:11] LABS: Glucose, Whole Blood 115 mg/dL (60-115)
--- NOTE | 2025-07-01 16:30 | PM.EVENT ---
Event Note Date of Service: 07/02/25 Event Note: On afternoon rounds Says he has been doing well Minimal right-sided pain Tolerating diet Passing flatus and has BMs Abdomen is soft and benign No fever Clinically not obstructed We will decide on further workup especially in view of elevated CEA level Possible enterography We will review with radiologist again and with Dr. Murguia He looks well overall Time Spent With Patient Time: Total time managing care of this patient today ____ minutes.
[2025-07-01 20:00] VITALS: BP 139/76; PULSE 66; RESP 12; TEMP 36.6; O2SAT 97
[2025-07-01 20:42] LABS: Glucose, Whole Blood 103 mg/dL (60-115)
[2025-07-01 23:26] VITALS: BP 134/73; PULSE 70; RESP 16; TEMP 36.7; O2SAT 95
[2025-07-02 03:28] VITALS: BP 136/68; PULSE 72; RESP 16; TEMP 36.6; O2SAT 95
--- NOTE | 2025-07-02 07:27 | PM.PNGS ---
Subjective Subjective Date of Service: 07/04/25 Interval history: Says he had a good night Feels well Having bowel movements Good oral intake However, he admits that he still has this pain in the right abdomen although less Physical Exam Vital Signs: Vital Signs: Last Vital Signs Temp 97.9 F 07/02/25 03:28 Pulse 72 07/02/25 03:28 Resp 16 07/02/25 03:28 BP 136/68 07/02/25 03:28 Pulse Ox 95 07/02/25 03:28 O2 Del Method Room Air 07/02/25 03:28 BMI result Body Mass Index 38.0 Const: General: comfortable and no acute distress Resp: Effort & Inspection: normal respiratory effort Cardio: Rate: regular rate GI: Palpation (GI): Soft to palpation, not firm, Tenderness to palpation present (GI) (Mild tenderness right side) and no guarding Objective Data Active Medications Acetaminophen (Acetaminophen 325 Mg Tablet) 650 mg PO Q6H PRN PRN Reason: Pain, Mild 1-3,fever,headache Last Admin: 06/29/25 06:01 Dose: 650 mg Documented By: SATYA Atorvastatin Calcium (Atorvastatin Calcium 10 Mg Tablet) 10 mg PO DAILY [facility] Last Admin: 07/01/25 07:36 Dose: 10 mg Documented By: HAYDEE Buspirone HCl (Buspirone Hcl 10 Mg Tablet) 10 mg PO DAILY [facility] Last Admin: 07/01/25 07:36 Dose: 10 mg Documented By: HAYDEE Carvedilol (Carvedilol 12.5 Mg Tablet) 12.5 mg PO BID [facility]; Protocol Last Admin: 07/01/25 20:11 Dose: 12.5 mg Documented By: SCHUYLER Clotrimazole (Clotrimazole 1 % Cream 15 Gm Tube) 1 appl TOPICAL BID PRN; Protocol PRN Reason: Rash Dextrose (Dextrose 50 % 25 Gm/50 Ml Syringe) 25 gm IVPUSH Q15M PRN; Protocol PRN Reason: per Hypoglycemia Standing Ord. Glucose (Glucose Gel 15 Gm Gel..Gram.) 15 gm PO Q15M PRN; Protocol PRN Reason: per Hypoglycemia Standing Ord. Insulin Human Lispro (Insulin Lispro 100 Unit/Ml 3 Ml Vial) 0 unit SUBCUT QIDACHS [facility]; Protocol Last Admin: 07/01/25 20:58 Dose: Not Given Documented By: SCHUYLER Non-Admin Reason: No Insulin Coverage Melatonin (Melatonin 3 Mg Tablet) 6 mg PO BEDTIME PRN PRN Reason: Insomnia Last Admin: 07/01/25 20:10 Dose: 6 mg Documented By: SCHUYLER Morphine Sulfate (Morphine Sulfate 4 Mg/Ml Cartridge) 2 mg IVPUSH Q4H PRN; Protocol PRN Reason: Pain, Severe (Pain Scale 7-10) Last Admin: 06/29/25 06:37 Dose: 2 mg Documented By: SATYA Ondansetron HCl (Ondansetron Hcl 4 Mg/2 Ml Vial) 4 mg IVPUSH Q8H PRN PRN Reason: Nausea and Vomiting Last Admin: 06/28/25 21:12 Dose: 4 mg Documented By: MARIO Sertraline HCl (Sertraline Hcl 50 Mg Tablet) 150 mg PO BEDTIME [facility] Last Admin: 07/01/25 20:11 Dose: 150 mg Documented By: SCHUYLER Sodium Chloride (0.9 % Sodium Chloride Flush 3 Ml Syringe) [facility] Last Admin: 07/01/25 20:11 Dose: 3 ml Documented By: SCHUYLER Trazodone HCl (Trazodone Hcl 50 Mg Tablet) 150 mg PO BEDTIME [facility] Last Admin: 07/01/25 20:11 Dose: 150 mg Documented By: SCHUYLER Labs 07/01/25 05:30 07/01/25 05:30 Labs: Laboratory Results - last 24 hr 07/01/25 07/01/25 07/01/25 07:18 11: 16:04 POC Glucose 94 131 H 115 07/01/25 20:33 POC Glucose 103 Procedures Date of Service Date of Service: 07/04/25 Progress Note: A&P Assessment and plan (1) Abdominal pain: Status: Resolved Assessment and Plan: Clinically not obstructed Good oral intake with consistent BMs Abdomen soft and benign CEA level has been rising We may be able to do further workup as an outpatient He is awaiting a PET scan We will review with Dr. Murguia Time Spent With Patient Time: Total time managing care of this patient today ____ minutes. Quality Stroke Does the patient have a stroke diagnosis?: No VTE Prior VTE?: No VTE Risk Level:: Surgical - low VTE Device Contraindication: Treatment Not Indicated VTE Drug Contraindication: Treatment Not Indicated
[2025-07-02 07:40] VITALS: BP 154/91; PULSE 73; RESP 18; TEMP 36.6; O2SAT 96
[2025-07-02 07:52] LABS: Glucose, Whole Blood 100 mg/dL (60-115)
[2025-07-02] MEDS: 0.9 % Sodium Chloride Flush 3 ML SYRINGE IVFLUSH (07:53)
[2025-07-02 11:40] LABS: Glucose, Whole Blood 127 mg/dL (60-115)
[2025-07-02 11:43] VITALS: BP 122/66; PULSE 71; RESP 18; TEMP 36.4; O2SAT 97
--- NOTE | 2025-07-02 13:45 | PM.EVENT ---
Event Note Date of Service: 07/03/25 Event Note: Seen on afternoon rounds He says he is comfortable Continues to tolerate diet Passing flatus well Minimal pain in the right side I have reviewed his case with Dr. Murguia The patient actually had a PET scan already done few weeks ago and this showed activity in the abdomen in the right side No suggestion of any lung metastasis. Review of his CAT scan from the weekend does not show any obvious mass but there is note of suggestion of chronic inflammatory changes in the right abdomen He did have a large abscess postop with this initial right colon resection Clinically not obstructed However, he does have significantly elevated CEA level as well suspicious for recurrence or metastatic disease of his previous right colon cancer He may benefit from additional chemotherapy Plan is to seek opinion with [facility] for definitive diagnosis of recurrent or metastatic disease He looks well overall and this is ready to be discharged I will prescribe him some Percocet for occasional pain in the right side I discussed the above with his Emily and she is comfortable with the plan Time Spent With Patient Time: Total time managing care of this patient today ____ minutes.
--- NOTE | 2025-07-02 14:15 | MHC.CM.PN ---
IMM 07/02/25 patient is discharged to home today with resumption of AFC. No home services have been ordered. Family will provide transportation home.
--- NOTE | 2025-07-02 15:21 | P.DS_ITS ---
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 He sees Oncology here in his recently seen Dr. Norton who did his right colectomy. He has been having some issues with the abdominal pain with climbing CEA and he needs to get further workup for metastatic disease. He says that he thinks that he is supposed to be getting a PET scan at [facility] soon. He comes in because he was having increasing abdominal pain especially in the right upper quadrant area and he was feeling a little nauseated. Talking to his she was concerned that he may have problems with his gallbladder so he came to the emergency room. Here ultrasound of the gallbladder did not reveal any issues but he was tender in the right upper quadrant. CT scan was carried out which shows some thickened and distended small bowel and there is fecalization of some of this material here on the right side. Patient has been having small bowel movements but passing good gas. Denies any fevers or chills. With a little nauseated but did not throw up. No leukocytosis on labs. HOSPITAL COURSE: He was admitted to the surgical service for observation. Given the thickened and distended small bowel loops in the RUQ, enteritis may have been etiology of his pain. He did not seem clinically obstructed. He was kept NPO, started on IV hydration, given a bowel regimen. His symptoms improved and his diet was advanced. His abdomen remained very benign. He continued to have good GI function. His case was reviewed with Dr. Murguia. PET scan was actually performed a few weeks prior and this showed activity in the abdomen in the right side, no suggestion of any lung metastasis.Review of his CAT scan from admission did not show any obvious mass but there is note of suggestion of chronic inflammatory changes in the right abdomen. He did have a large abscess postop with this initial right colon resection. He however does have an significantly elevated CEA level as well suspicion for recurrence or metastatic disease of his previous right colon cancer and may benefit from additional chemotherapy. He was clinically appearing well and tolerating a solid diet without worsening of his pain. He was overall ready for be discharged with oral analgesics for the pain with plan to seek opinion with [facility] for definitive diagnosis of recurrent or metastatic disease. Patient was discharged to home on 07/02/25 in stable condition. He is to follow up with his PCP and oncology. He is to follow up with Dr. Norton in 2 weeks. Status at Discharge Functional status at discharge: independent ambulation Overall status at discharge: patient is progressing back to baseline Time Attestation Discharge Coordination Time (in mins): 30 Quality: Safe Use of Opioids Does Pt have an Active Cancer Diagnosis on the Problem List?: No Quality: Stroke Does the patient have a stroke diagnosis?: No Physical Exam Vital Signs: Vital Signs: Last Vital Signs Temp 97.6 F 07/02/25 11:43 Pulse 71 07/02/25 11:43 Resp 18 07/02/25 11:43 BP 122/66 07/02/25 11:43 Pulse Ox 97 07/02/25 11:43 O2 Del Method Room Air 07/02/25 11:43 BMI result Body Mass Index 38.0 Const: General: comfortable, no acute distress and alert Orientation/consciousness: patient oriented x3 Resp: Effort & Inspection: normal respiratory effort and able to speak in complete sentences GI: Other: corpulent abdomen mild RUQ tenderness, no guarding or rebound soft, nondistended Skin: Other: warm and dry General skin exam: no jaundice Neuro: General: patient oriented x3 and moves all extremities DS: Data Data Completed and Pending Completed studies during hospitalization [Text1]: Procedures Assistance with Respiratory Ventilation, Less than 24 Consecutive Hours, Continuous Positive Airway Pressure (06/01/22) Control Bleeding in Gastrointestinal Tract, Open Approach (06/01/22) Drainage of Retroperitoneum, Percutaneous Approach (06/01/22) Excision of Duodenum, Via Natural or Artificial Opening Endoscopic, Diagnostic (09/04/24) Excision of Stomach, Pylorus, Via Natural or Artificial Opening Endoscopic, Diagnostic (09/04/24) Insertion of Infusion Device into Superior Vena Cava, Percutaneous Approach (06/01/22) Resection of Appendix, Percutaneous Endoscopic Approach (03/27/22) Resection of Right Large Intestine, Open Approach (06/01/22) Ultrasonography of Superior Vena Cava, Guidance (06/01/22) Labs on day of discharge: Laboratory Results - last 24 hr 07/02/25 11:26 POC Glucose 127 H Discharge Plan Discharge Patient Disposition: Home, Self-Care Referrals: Daniella Colon MD [Primary Care Provider, Medical] - 1 Week Lit Norton MD [Physician, General Surgery] - 2 Weeks Discharge Medications: New oxycodone-acetaminophen 5-325 mg tablet 1 tab PO TID PRN (Reason: pain) Qty: 20 0RF Rx Instructions: Partial Fill upon patient request. Continued (DME) FreeStyle Deja 3 Plus Sensor Device See Rx Instructions .ROUTE .MEDSUPPLY Qty: 2 5RF Rx Instructions: Use daily As directed to monitor glucose sertraline 100 mg tablet 150 mg PO BEDTIME ferrous sulfate 325 mg (65 mg iron) Tablet 325 mg PO BID Qty: 60 3RF Mounjaro 10 mg/0.5 mL pen injector 10 mg subcut FR insulin glargine [Lantus Solostar U-100 Insulin] 100 unit/mL (3 mL) insulin pen 25 unit subcut DAILY (DME) pen needle, diabetic 32 gauge x 1/4 needle Qty: 100 0RF Rx Instructions: Use four times a day or as directed. omeprazole 20 mg Capsule,Delayed Release(Dr/Ec) 20 mg PO DAILY@0630 Qty: 30 0RF cholecalciferol (vitamin D3) 25 mcg (1,000 unit) capsule 25 mcg PO DAILY atorvastatin 10 mg tablet 10 mg PO DAILY carvedilol 12.5 mg tablet 12.5 mg PO BID trazodone 150 mg tablet 150 mg PO BEDTIME clotrimazole 1 % cream 1 appl topical BID PRN (Reason: Rash) fluticasone propionate 50 mcg/actuation spray,suspension 1 - 2 spray intranasal DAILY PRN (Reason: cold and allergies) glucose [Dex4 Glucose] 4 gram tablet,chewable 16 g PO Q15M PRN (Reason: hypoglycemia) Qty: 100 0RF Rx Instructions: until symptoms of low blood sugar are controlled (DME) blood-glucose meter [FreeStyle Lite Meter] Kit Qty: 1 0RF Rx Instructions: As Directed (DME) FreeStyle Lite Strips Strip Qty: 100 3RF Rx Instructions: Test BID or as directed. (DME) lancets [FreeStyle Lancets] 28 gauge misc Qty: 100 0RF Rx Instructions: test blood glucose BID or as directed. buspirone 10 mg tablet 10 mg PO DAILY cetirizine 10 mg tablet 10 mg PO DAILY PRN (Reason: Allergy Symptoms) ascorbic acid (vitamin C) [Vitamin C] 500 mg tablet,chewable 500 mg PO BID Discharge Orders: Discharge Order (Routine); Ordered 07/02/25 Ordered By: Lit Norton Diet: Diabetic diet Activity on Discharge: As tolerated Stand Alone Forms: Patient Portal Discharge page Print Language: Telugu Activity Restrictions/Additional Instructions: Follow up in office in 2 weeks. ([phone]) Diet as tolerated, small meals throughout the day. Call Your Doctor If: ? ? -Your temperature exceeds 101.5? F? ? ? -You experience severe or worsening pain or swelling ? ? -You have an unexpected reaction to medication ? ? -You experience continued vomiting/nausea Care Plan Goals: Return to baseline health and resume normal activities. Improvement in abd pain. Health Concerns: Enteritis, PSBO Plan of Treatment: Supportive with IVF, bowel rest Follow up in the office in 2 weeks Outpatient work up for elevated CEA with PET scan and CT chest Assessment: Improved Discharge Date/Time: 07/02/25 14:05
== END 2025-07-02 14:05 | disposition home or self-care (01) ==
LOC: HO.ED 16:16 → HO.EDOVER 20:32 → HO.S3 21:28
PROVIDERS: Registered Nurse Emergency; Admitting Provider Surgery; Emergency Provider Student in an Organized Health Care Education/Training Program; PCP Internal Medicine; Visit Provider Surgery
DX: K56.609 Unspecified intestinal obstruction, unspecified as to partial versus complete obstruction (principal); R10.11 Right upper quadrant pain; R11.0 Nausea; R97.0 Elevated carcinoembryonic antigen [CEA]; E11.9 Type 2 diabetes mellitus without complications; I10 Essential (primary) hypertension; Z85.038 Personal history of other malignant neoplasm of large intestine; Z79.899 Other long term (current) drug therapy
CPT/HCPCS: 36415; 74177; 76705; 80048; 80053; 80076; 82947; 83690; 85025; 96361; 96374; 96375; 96376; 99221; 99285; J2270; J2405; J7120; Q9967

== ENCOUNTER → 2025-06-28 14:10 | Outpatient (BNV) | payer MEDICARE, SELFPAY | PROVIDERS: Emergency Provider Student in an Organized Health Care Education/Training Program; PCP Internal Medicine; Visit Provider Radiology Diagnostic Radiology | DX: R10.11 Right upper quadrant pain (principal); R10.811 Right upper quadrant abdominal tenderness | CPT/HCPCS: 74177; 76705 ==

== ENCOUNTER → 2025-06-28 20:27 | Outpatient (BNV) | payer MEDICARE, SELFPAY | PROVIDERS: Admitting Provider Surgery; Emergency Provider Student in an Organized Health Care Education/Training Program; PCP Internal Medicine; Visit Provider Surgery | DX: K56.609 Unspecified intestinal obstruction, unspecified as to partial versus complete obstruction (principal) | CPT/HCPCS: 99222; 99232; 99238; 99499 ==

== ENCOUNTER 2025-07-08 14:02 | Outpatient (REF) | payer MEDICARE, SELFPAY ==
--- NOTE | ~2025-07-08 | CT_ITS ---
EXAMINATION: CT CHEST WITH IV CONTRAST INDICATION: HIgh CEA, r/o metastatic disease COMPARISON: Comparison is made with the prior examination dated 07/16/2024. TECHNIQUE: Helical CT scan of the chest was performed following administration of intravenous contrast. Coronal and sagittal reformatted images were generated and reviewed. This CT exam was performed with one or more of the following dose reduction techniques: automated exposure control, adjustment of the mA and/or kV according to patient size, use of iterative reconstruction technique. DLP: 271 mGy-cm CHEST: THYROID: The thyroid is unremarkable. LUNGS: There is minimal subsegmental atelectasis at the right lung base. The lungs are otherwise clear. MEDIASTINUM: There is no mediastinal lymphadenopathy. GUILLAUME: There is no hilar lymphadenopathy. CARDIOVASCULATURE: The heart is normal in size. There is no pericardial effusion. The thoracic aorta is normal in caliber. DEGREE OF CORONARY CALCIFICATION: moderate PLEURA: There is no pleural effusion. No pneumothorax. MAIN AIRWAYS: The mainstem bronchi and proximal branches are patent. AXILLA: There is no axillary lymphadenopathy. BONES AND SOFT TISSUES: There is degenerative disc disease of the spine. UPPER ABDOMEN: The visualized portions of the liver and adrenals are unremarkable. There is mild splenomegaly. CT/CT chest w IV con IMPRESSION: 1. Minimal subsegmental atelectasis at the right lung base. 2. Mild splenomegaly. 3. No evidence of metastatic disease. Electronically signed by: Myron Nicholson MD 07/08/2025 03:36 PM [facility]
[2025-07-08] MEDS: iohexoL 350 MG/ML 100 ML INFUS..BTL 65 ML IV (15:27)
--- OUTSIDE RECORDS SUMMARY | 2025-07-08 18:57 | XMS_ITS | Encounter Summary ---
Author Organization [facility] Address [address] [place] [phone] Phone Care Team Providers Care Applications Sales Consultant Name Role Phone Daniella Colon MD Primary Care Provide r Reason for Referral * Consultation (Within 1 month) - New Request Specialty Diagnoses / Procedures Referred By Ritu teague Referred To Contact Diagnoses Malignant neoplasm of appendix Personal history of other malignant neoplasm of large intestine Lit Norton MD [address] [place] [address] Dr RIVERA [facility] [address] Phone: tel: fax: [facility] [id number] Referral ID Status Reason Start Date Expiration Date V isits Requested Visits Authorized [id number] New Request 07/03/2025 07/03/2026 1 1 Encounter Details Date Type Department Care Team (Late st Contact Info) Description 07/03/2025 Transcribe Orders [facility] Referral Management [address] [place] [address] Lit Norton MD [address] [place] [address] Dr [address] [place], [place] [id number] Malignant neoplasm of appendix (Primary Dx) Social History Tobacco Use Types Packs/Day Years Used Date Smoking Tobacco: Never Assessed Education Answer Date Recorded Are you interested in more education? Not on joselin e 07/04/2025 Are you concerned about learning? Not on file 07/04/2025 No 07/04/2025 No 07/04/2025 Digital Access Answer Date Recorded No 07/04/2025 No 07/04/2025 Reliable internet access at home? Not on file 07/04/2025 Device with a working camera? Not on file Sex and Gender Information Value Date Recorded Sex Assigned at Male 07/03/2025 2:18 PM EST Legal Sex Male 2:18 PM EST Gender Identity Male 07/03/2025 2:18 PM EST Sexual Orientation Straight 07/03/2025 2: 18 PM EST documented as of this encounter Plan of Treatment Scheduled Referrals Name Type Priority Associated Diagnoses Order Schedule Ambulatory referral to [facility] Surgery Outpatient Referral Routine Malignant neoplasm of appendix Ordered: 07/03/2025 documented as of this encounter Visit Diagnoses Diagnosis Malignant neoplasm of appendix- Primary documented in this encounter Care Teams Applications Sales Consultant Relationship Specialty Start Date End Date Daniella Colon MD [address] [place] [phone] PCP - General Internal Medicine 07/03/25 documented as of this encounter Additional Source Comments The information contained in this document represents components of the legal health record. It is not the complete legal health record.[facility]
--- OUTSIDE RECORDS SUMMARY | 2025-07-08 18:57 | XMS_ITS | Encounter Summary ---
Author Organization [facility] Address [address] [place] [phone] Phone Care Team Providers Care Sign Wirer Name Role Phone Daniella Colon MD Primary Care Provide r Encounter Details Date Type Department Care Team (Late st Contact Info) Description 07/05/2025 Ancillary Orders [facility] Imaging [address] [place] [address] Mack Woodson MD [address] [place] [id number] [email or web address] Social History Tobacco Use Types Packs/Day Years [...] as of this encounter Plan of Treatment Not on file documented as of this encounter Results * CT Abdomen/Pelvis Outside with Interpretation or Consult (06/28/2025 12:00 AM EST) [facility]GB IMG RECOMMENDATION COMMENT Differential : hepatic segment 7 hypodense lesion abdominal MRI [facility] 07/05/2025 10:3 3 AM EST Impressions [facility] - 07/05/2025 11:02 AM EST Since 04/26/2025: * Partial small bowel obstruction with relatively abrupt caliber change at the 4.8 cm segment of irregular small bowel wall thickening in the right lower quadrant, with adjacent irregular perienteric soft tissue/nodes, 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 Small bowel lymphoma is an additional although less likely consideration. * Enlarging right lower quadrant mesenteric nodes, likely metastatic. * Indeterminate subcentimeter hepatic segment 7 hypodensity, may reflect metastasis. RECOMMENDATIONS: Consider further evaluation of hepatic segment 7 hypodense lesion with abdominal MRI if no more remote prior studies available to assess for stability. Narrative [facility] - 07/05/2025 11:[address] ABDOMEN/PELVIS OUTSIDE WITH INTERPRETATION OR CONSULT Referring clinician's provided indication for this examination in Epic: Malignant neoplasm of appendix TECHNIQUE: CT of the abdomen and pelvis, with intravenous contrast. COMPARISON: CT ABDOMEN/PELVIS OUTSIDE WITH INTERPRETATION OR CONSULT FINDINGS: Lower chest: Bibasilar atelectasis. No pleural effusion. Central line with tip terminating in the right atrium. Liver: Indeterminate subcentimeter segment 7 hypodensity (4:7). Biliary: Noninflamed gallbladder. No biliary ductal dilatation. Spleen: No splenomegaly. No focal lesions. Pancreas: No masses or ductal dilatation. Adrenal glands: No nodules. Kidneys/ureters: No hydronephrosis. No stones. No solid masses. Bowel: Long segment of dilated loops of distal small bowel measuring up to 4.2 cm in diameter (5:436), with fecalization of bowel contents and surrounding edema and wall thickening. Relatively abrupt caliber change at the 4.8 cm segment of irregular small bowel wall thickening (5:5.9; 8:34). Irregular adjacent soft tissue/perienteric nodes measuring up to 1.6 cm (8:38). Ileocecectomy and appendectomy. Peritoneum/retroperitoneum/lymph nodes: Trace fluid tracking along the right colic gutter. No fluid collection. No free air. Perienteric tissue as noted above. Enlarging right lower quadrant mesenteric nodes measuring up to 1.8 cm short axis (5:3 3), previously 1.4 cm. Pelvic organs/bladder: Dystrophic calcifications in the nonenlarged prostate. Vessels: No abdominal aortic aneurysm. Bones/soft tissues: Midline abdominal wall surgical scar with multiple small fat-containing incisional hernias. No destructive osseous lesions. Skeletal degenerative changes. T12 likely bone island. Procedure Note Myron Ladd MD, PhD - 07/05/2025 CT ABDOMEN/PELVIS OUTSIDE WITH INTERPRETATION OR CONSULT Referring clinician's provided indication for this examination in Epic:Malignant neoplasm of appendix TECHNIQUE: CT of the abdomen and pelvis, with intravenous contrast. COMPARISON: CT ABDOMEN/PELVIS OUTSIDE WITH INTERPRETATION OR [id number] FINDINGS: Lower chest: Bibasilar atelectasis. No pleural effusion. Central line withtip terminating in the right atrium. Liver: Indeterminate subcentimeter segment 7 hypodensity (4:7). Biliary: Noninflamed gallbladder. No biliary ductal dilatation. Spleen: No splenomegaly. No focal lesions. Pancreas: No masses or ductal dilatation. Adrenal glands: No nodules. Kidneys/ureters: No hydronephrosis. No stones. No solid masses. Bowel: Long segment of dilated loops of distal small bowel measuring up to4.2 cm in diameter (5:436), with fecalization of bowel contents andsurrounding edema and wall thickening. Relatively abrupt caliber change atthe 4.8 cm segment of irregular small bowel wall thickening (5:5.9; 8:34).Irregular adjacent soft tissue/perienteric nodes measuring up to 1.6 cm(8:38). Ileocecectomy and appendectomy. Peritoneum/retroperitoneum/lymph nodes: Trace fluid tracking along theright colic gutter. No fluid collection. No free air. Perienteric tissueas noted above. Enlarging right lower quadrant mesenteric nodes measuringup to 1.8 cm short axis (5:3 3), previously 1.4 cm. Pelvic organs/bladder: Dystrophic calcifications in the nonenlargedprostate. Vessels: No abdominal aortic aneurysm. Bones/soft tissues: Midline abdominal wall surgical scar with multiplesmall fat-containing incisional hernias. No destructive osseous lesions.Skeletal degenerative changes. T12 likely bone island. 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 Small bowel lymphoma is anadditional although less likely consideration. * Enlarging right lower quadrant mesenteric nodes, likely metastatic. * Indeterminate subcentimeter hepatic segment 7 hypodensity, may reflectmetastasis. RECOMMENDATIONS: Consider further evaluation of hepatic segment 7 hypodense lesion withabdominal MRI if no more remote prior studies available to assess forstability. us Mack Woodson MD IMG OUTSIDE IMAGING W/ INTER PRETATION Final Result [address] [id number] documented in this encounter Visit Diagnoses Not on filedocumented in this encounter Care Teams Sign Wirer Relationship Specialty Start Date End Date Daniella Colon MD [address] [place] [phone] PCP - General Internal Medicine 07/03/25 documented as of this encounter Additional Source Comments The information contained in this document represents components of the legal health record. It is not the complete legal health record.[facility]
--- OUTSIDE RECORDS SUMMARY | 2025-07-08 18:57 | XMS_ITS | Encounter Summary ---
Author Organization [facility] Address [address] [place] [address] Phone Care Team Providers Care Ecommerce Merchandising Manager Name Role Phone Daniella Colon MD Primary Care Provide r Encounter Details Date Type Department Care Team (Late st Contact Info) Description 07/04/2025 Telephone [facility] [address] [place] [address] Lucio Villalobos MD [address] [place] [address] [email or web address] Social History Tobacco Use Types Packs/Day Years [...] on file documented as of this encounter Visit Diagnoses Not on filedocumented in this encounter Care Teams Ecommerce Merchandising Manager Relationship Specialty Start Date End Date Daniella Colon MD [address] [place] [phone] PCP - General Internal Medicine 07/03/25 documented as of this encounter Additional Source Comments The information contained in this document represents components of the legal health record. It is not the complete legal health record.[facility]
--- OUTSIDE RECORDS SUMMARY | 2025-07-08 18:57 | XMS_ITS | Encounter Summary ---
Author Organization [facility] Address [address] [place] [address] Phone Care Team Providers Care Steam And Gas Turbine Assembler Name Role Phone Daniella Colon MD Primary Care Provide r Encounter Details Date Type Department Care Team (Late st Contact Info) Description 07/04/2025 Telephone [facility] General & Gastrointestinal Surgery [address] [facility], 4th Floor, [address] [place] [address] Lucio Villalobos MD [address] [place] [address] [email or web address] Social History Tobacco Use Types [...] PM EST documented as of this encounter Progress Notes * Alecia Randolph - 07/04/2025 1:14 PM EST LVM re VV w/ RR 07/18. Provider reviewed pt's chart and does not feel he is the best person to assist in pt's care. has reached out to Dr Woodson and asked him to see pt, Dr Woodson's office will contact pt to schedule. Informed pt that 07/[address] Villalobos has been cancelled and provided contact info for Dr Woodson's office. documented in this encounter Plan of Treatment Not on file documented as of this encounter Visit Diagnoses Not on filedocumented in this encounter Care Teams Steam And Gas Turbine Assembler Relationship Specialty Start Date End Date Daniella Colon MD [address] [place] [id number] PCP - General Internal Medicine 07/03/25 documented as of this encounter Additional Source Comments The information contained in this document represents components of the legal health record. It is not the complete legal health record.[facility]
--- OUTSIDE RECORDS SUMMARY | 2025-07-08 18:58 | XMS_ITS | Encounter Summary ---
Author Organization [facility] Address [address] [facility] [address] [place] [address] Phone Care Team Providers Care Clicker Operator Name Role Phone Daniella Colon MD Primary Care Provide r Encounter Details Date Type Department Care Team (Late st Contact Info) Description 07/05/2025 Ancillary Orders [facility] General Imaging [address] [place] [address] Mack Woodson MD [address] [place] [phone] [email or web address] Social History Tobacco Use Types Packs/Day Years [...] CT Abdomen/Pelvis Outside with Interpretation or Consult (04/26/2025 12:05 AM EDT) 07/05/2025 11:0 6 AM EST Narrative [facility] - 07/05/2025 11:[address] ABDOMEN/PELVIS OUTSIDE WITH INTERPRETATION OR CONSULT Referring clinician's provided indication for this 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 This outside examination can not be read because: The request was for a different body part than the images. Procedure Note Myron Ladd MD, PhD - 07/05/2025 CT ABDOMEN/PELVIS OUTSIDE WITH INTERPRETATION OR CONSULT Referring clinician's provided indication for this examination in [facility]:Malignant neoplasm of appendix TECHNIQUE: Outside images of the chest without intravenous contrast. This outside examination can not be read because: The request was for a different body part than the images. Mack Woodson MD IMG OUTSIDE IMAGING W/ INTER PRETATION Final Result Performing Organization Address City/State/[facility] Co de Phone Number [address] [address] documented in this encounter Visit Diagnoses Not on filedocumented in this encounter Care Teams Clicker Operator Relationship Specialty Start Date End Date Daniella Colon MD [address] [place] [address] PCP - General Internal Medicine 07/03/25 documented as of this encounter Additional Source Comments The information contained in this document represents components of the legal health record. It is not the complete legal health record.[facility]
--- OUTSIDE RECORDS SUMMARY | 2025-07-08 18:58 | XMS_ITS | Encounter Summary ---
Author Organization [facility] Address [address] [facility] [address] [place] [address] Phone Care Team Providers Care Epic Kaleidoscope Analyst Name Role Phone Daniella Colon MD Primary Care Provide r Encounter Details Date Type Department Care Team (Late st Contact Info) Description 07/05/2025 Ancillary Orders [facility] General Imaging [address] [place] [address] Mack Woodson MD [address] [place] [phone] [email or web address] Social History Tobacco Use Types Packs/Day Years [...] Abdomen/Pelvis Outside with Interpretation or Consult (04/26/2025 12:00 AM EDT) 07/05/2025 11:0 4 AM EST Narrative [facility] - 07/05/2025 11:[address] ABDOMEN/PELVIS OUTSIDE WITH INTERPRETATION OR CONSULT Referring clinician's provided indication for this examination 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 This outside examination can not be read because: A more recent study has been submitted for interpretation or interpreted. 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 This outside examination can not be read because: A more recent study has been submitted for interpretation orinterpreted. us Mack Woodson MD IMG OUTSIDE IMAGING W/ INTER PRETATION Final Result [address] [address] documented in this encounter Visit Diagnoses Not on filedocumented in this encounter Care Teams Epic Kaleidoscope Analyst Relationship Specialty Start Date End Date Daniella Colon MD [address] [place] [address] PCP - General Internal Medicine 07/03/25 documented as of this encounter Additional Source Comments The information contained in this document represents components of the legal health record. It is not the complete legal health record.[facility]
--- OUTSIDE RECORDS SUMMARY | 2025-07-08 18:58 | XMS_ITS | Clinical Summary ---
Author Organization [facility] Address [address] [place] [address] [address] [place] [address] Phone Care Team Providers Care Home Care Physical Therapist Name Role Phone Daniella Colon MD Primary Care Provide r Encounters Date Type Department Care Team Description 07/05/2025 Ancillary Orders [facility] [address] [place] [address] Mack Woodson MD 07/05/2025 Ancillary Orders [facility] [address] [place] [address] Mack Woodson MD 07/05/2025 Ancillary Orders [facility] [address] [place] [address] Mack Woodson MD 07/05/2025 Ancillary Orders [facility] [address] [place] [address] Mack Woodson MD 07/04/2025 Telephone [facility] General & Gastrointestinal Surgery [address] [facility], 4th [address], [address] [place] [address] Lucio Villalobos MD 07/04/2025 Telephone [facility] General & Gastrointestinal Surgery [address] [facility], 4th [address], [address] [place] [address] Lucio Villalobos MD 07/03/2025 Transcribe Orders [facility] [address] [place] [address] Lit Norton MD Malignant neoplasm of appendix (Primary Dx) 06/28/2025 - 06/28/2025 11:59 PM EST Hospital Encounter [facility] [address] [place] [address] Mack Woodson MD Discharge Disposition: Home or Self Care 04/26/2025 12:10 AM EDT - 04/26/2025 11:59 PM EDT Hospital Encounter [facility] [address] [place] [address] Mack Woodson MD Discharge Disposition: Home or Self Care 04/26/2025 12:05 AM EDT - 04/26/2025 12:09 AM EDT Hospital Encounter [facility] [address] [place] [address] Mack Woodson MD Discharge Disposition: Home or Self Care 04/26/2025 - 04/26/2025 12:04 AM EDT Hospital Encounter [facility] [address] [place] [address] Mack Woodson MD Discharge Disposition: Home or Self Care from [...] Orientation Straight 07/03/2025 2: 18 PM EST Plan of Treatment Health Maintenance Due Date Last Done Comments Adult Td,Tdap Booster 1965 LIPID PANEL 1965 DEPRESSION SCREENING 1977 SMOKING Hx and SMOKELESS TOB ACCO SCREENING 1978 HEPATITIS C SCREENING 1983 HIV ONE-TIME SCREENING (18-6 5 YEARS) 1983 COLOGUARD 2010 COLONOSCOPY 2010 COLORECTAL CANCER SCREENING 2010 FIT TEST 2010 FOBT 2010 SIGMOIDOSCOPY 2010 VIRTUAL COLONOSCOPY 2010 PNEUMOCOCCAL VACCINES (50+ y ears) (1 of 1 - PCV) 2015 ZOSTER VACCINES (1 of 2) 2015 INFLUENZA VACCINE (#1) 2025 COVID-19 VACCINE (1 - 2024-2 6 season) 2025 RSV VACCINE (1 - 1-dose 75+ series) 2040 HEPATITIS A VACCINES Aged Out No long er eligible based on patient's age to complete this topic HIB VACCINES Aged Out No longer eligi ble based on patient's age to complete this topic MENINGOCOCCAL VACCINES (ACWY) Aged Out No longer eligible based on patient's age to complete this topic MENINGOCOCCAL VACCINES (B) Aged Out N o longer eligible based on patient's age to complete this topic Medical Devices Not on file Procedures Procedure Name Priority Date/Time Associated Diagnosis Comments OUTSIDE LAB 07/03/2025 OUTSIDE IMAGING 07/03/2025 OUTSIDE PROCEDURE 07/03/2025 CT ABDOMEN/PELVIS OUTSIDE WITH INTERPRETATION OR CONSULT Routine 06/28/2025 12:[address] ABDOMEN/PELVIS OUTSIDE WITH INTERPRETATION OR CONSULT Routine 04/26/2025 12:[address] ABDOMEN/PELVIS OUTSIDE WITH INTERPRETATION OR CONSULT Routine 04/26/2025 12:[address] ABDOMEN/PELVIS OUTSIDE WITH INTERPRETATION OR CONSULT Routine 04/26/2025 12:00 AM EDT from Last 3 Months Results * Outside Imaging Report Only (07/03/2025) us Scanning Interface Provider IMG XR CHEST [place] l Result * Outside Procedure (07/03/2025) us Scanning Interface Provider PROCEDURE/MINOR SURG ICAL PERFORMABLES Final Result * Outside Lab (Non-MGB) (07/03/2025) us Scanning Interface Provider LAB BLOOD BKR ORDERA BLES Final Result * CT Abdomen/Pelvis Outside with Interpretation or Consult (06/28/2025 12:00 AM EST) MGB IMG RECOMMENDATION COMMENT Differential : hepatic segment 7 hypodense lesion abdominal MRI [facility] 07/05/2025 10:3 3 AM EST Impressions [facility] - 07/05/2025 11:02 AM EST Since 04/26/2025: [...] studies available to assess for stability. Narrative [facility] - 07/05/2025 11:[address] ABDOMEN/PELVIS [...] COMPARISON: CT ABDOMEN/PELVIS OUTSIDE WITH INTERPRETATION OR [id number] FINDINGS: Lower chest: Bibasilar atelectasis. No pleural [...] remote prior studies available to assess forstability. Mack Woodson MD IM OUTSIDE IMAGING W/ INTER PRETATION Final Result Performing Organization Address [facility] Co de Phone Number [address] [address] * CT Abdomen/Pelvis Outside with Interpretation or Consult (04/26/2025 12:10 AM EDT) 07/05/2025 11:0 7 AM EST Narrative [facility] - 07/05/2025 11:[address] ABDOMEN/PELVIS OUTSIDE WITH INTERPRETATION OR CONSULT Referring clinician's provided indication for this examination in [facility]: Malignant neoplasm of appendix TECHNIQUE: Outside images of the abdomen and pelvis with intravenous contrast. This outside examination can not be read because: A more recent study has been submitted for interpretation or interpreted. Procedure Note Myron Ladd MD, PhD - 07/05/2025 CT ABDOMEN/PELVIS OUTSIDE WITH INTERPRETATION OR CONSULT Referring clinician's provided indication for this examination in [facility]:Malignant neoplasm of appendix TECHNIQUE: Outside images of the abdomen and pelvis with intravenous contrast. This outside examination can not be read because: A more recent study has been submitted for interpretation orinterpreted. Mack Woodson MD IMG OUTSIDE IMAGING W/ INTER PRETATION Final Result Performing Organization Address [facility] Co de Phone Number [address] [address] * CT Abdomen/Pelvis Outside with Interpretation or Consult (04/26/2025 12:05 AM EDT) 07/05/2025 11:0 6 AM EST [facility] - 07/05/2025 11:[address] ABDOMEN/PELVIS OUTSIDE WITH INTERPRETATION OR CONSULT Referring clinician's provided indication for this examination in [facility]: Malignant neoplasm of appendix TECHNIQUE: Outside images of the chest without intravenous contrast. This outside examination can not be read because: The request was for a different body part than the images. Procedure Note Myron Ladd MD, PhD - 07/05/2025 CT ABDOMEN/PELVIS OUTSIDE WITH INTERPRETATION OR CONSULT Referring clinician's provided indication for this examination in [facility]:Malignant neoplasm of appendix TECHNIQUE: Outside images of the chest without intravenous contrast. This outside examination can not be read because: The request was for a different body part than the images. Mack Woodson MD IMG OUTSIDE IMAGING W/ INTER PRETATION Final Result Performing Organization Address City/State/[facility] Co de Phone Number [address] [address] * CT Abdomen/Pelvis Outside with Interpretation or Consult (04/26/2025 12:00 AM EDT) 07/05/2025 11:0 4 AM EST [facility] - 07/05/2025 11:[address] ABDOMEN/PELVIS OUTSIDE WITH INTERPRETATION OR CONSULT Referring clinician's provided indication for this examination in [facility]: Malignant neoplasm of appendix, TECHNIQUE: Outside images of the abdomen and pelvis without intravenous contrast. This outside examination can not be read because: A more recent study has been submitted for interpretation or interpreted. Procedure Note Myron Ladd MD, PhD - 07/05/2025 CT ABDOMEN/PELVIS OUTSIDE WITH INTERPRETATION OR CONSULT Referring clinician's provided indication for this examination in [facility]:Malignant neoplasm of appendix, TECHNIQUE: Outside images of the abdomen and pelvis without intravenous contrast. This outside examination can not be read because: A more recent study has been submitted for interpretation orinterpreted. Mack Woodson MD IMG OUTSIDE IMAGING W/ INTER PRETATION Final Result [facility] [address] [place] [address] from Last 3 Months Insurance [facility] MEDICARE REPLACEMENT [facility] MEDICARE PART A & B [facility]IC[facility] A & B Member Subscriber Plan / Payer (Ef fective 2022-) Name:Titus Benitez Member ID:[id number] Relation to Subscriber:Self Name:Titus Benitez Subscriber ID:[id number] Payer ID:[id number] Group ID:Not on file Type:Medicare Address: [facility] [employer] [facility] [address] [place] [phone] [facility] MEDICARE REPLACEMENT [facility] MEDIC[facility] PART A & B [employer] MEDICARE REPLACEMENT [facility] MEDICARE PART A & B [employer] MEDICARE REPLACEMENT [facility] MEDICARE PART A & B [facility] MEDICARE REPLACEMENT [facility] MEDICARE PART A & B Care Teams Home Care Physical Therapist Relationship Specialty Start Date End Date Daniella Colon MD [address] [place] [address] [address] [place] [address] PCP - General Internal Medicine 07/03/25 Additional Source Comments The information contained in this document represents components of the legal health record. It is not the complete legal health record.[facility]
--- OUTSIDE RECORDS SUMMARY | 2025-07-08 18:58 | XMS_ITS | Encounter Summary ---
Author Organization [facility] Address [address] [facility] [address] [place] [address] Phone Care Team Providers Care Examination Supervisor Name Role Phone Daniella Colon MD Primary Care Provide r Encounter Details Date Type Department Care Team (Late st Contact Info) Description 07/05/2025 Ancillary Orders [facility] General Imaging [address] [place] [address] Mack Woodson MD [address] [place] [phone] [email or web address] Social History Tobacco Use Types Packs/Day Years [...] EDT) 07/05/2025 11:0 7 AM EST Narrative [facility] - 07/05/2025 11:[address] ABDOMEN/PELVIS OUTSIDE WITH INTERPRETATION OR CONSULT Referring clinician's provided indication for 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 This outside examination can not be read because: A more recent study has been submitted for interpretation or interpreted. Procedure Note Myron Ladd MD, PhD - 07/05/2025 CT ABDOMEN/PELVIS OUTSIDE WITH INTERPRETATION OR CONSULT Referring clinician's provided indication for this examination in [facility]:Malignant neoplasm of appendix TECHNIQUE: Outside images of the abdomen and pelvis with intravenous contrast. This outside examination can not be read because: A more recent study has been submitted for interpretation orinterpreted. us Mack Woodson MD IMG OUTSIDE IMAGING W/ INTER PRETATION Final Result [address] [address] documented in this encounter Visit Diagnoses Not on filedocumented in this encounter Care Teams Examination Supervisor Relationship Specialty Start Date End Date Daniella Colon MD [address] [place] [phone] PCP - General Internal Medicine 07/03/25 documented as of this encounter Additional Source Comments The information contained in this document represents components of the legal health record. It is not the complete legal health record.[facility]
--- OUTSIDE RECORDS SUMMARY | 2025-07-08 18:58 | XMS_ITS | Clinical Summary ---
Author Organization [address] [facility] Address [address] [place] [address] Phone Care Team Providers Care Vegetable Packer Name Role Phone Shyann Bermudez Primary Care Provider Allergies Active Allergy Reactions Criticality Noted Date Comments Lisinopril 12/13/2024 Encounters Date Type Department Care Team Description 05/22/2025 9:17 AM EDT - 05/22/2025 11:59 PM EDT Hospital Encounter [facility] PET Scan [address] [place] [id number] Secondary malignant neoplasm of retroperitoneum and peritoneum [...] Influencers of Health Screening 10/24/2024 COVID-19 Vaccine (2024-2 6 season) 2025 08/03/2021, 01/02/2021, 12/12/2020 Diabetes: [...] Signed Date: 05/29/2025 13:11 ET Workstation ID: [id number] Transcribed By: Self Edit Transcribed Date: 05/29/2025 [...] Signed Date: 05/29/2025 13:11 ET Workstation ID: [id number] Transcribed By: Self Edit Transcribed Date: 05/29/2025 12:40 ET us Jil Robles MD IMG [place] PROCEDURES Final Result from Last [address] [place] [address] [address] [facility] [phone] Care Teams Vegetable Packer Relationship Specialty Start Date End Date Shyann Bermudez PA [address] [place] [phone] PCP - General Physician Commercial Illustrator 10/24/24
== END 2025-07-08 14:03 | disposition home or self-care (01) ==
LOC: HO.CT 14:02
PROVIDERS: Absent Provider Surgery; PCP Internal Medicine; Visit Provider Nurse Practitioner Family
DX: R97.0 Elevated carcinoembryonic antigen [CEA] (principal); Z85.09 Personal history of malignant neoplasm of other digestive organs
CPT/HCPCS: 71260; Q9967

== ENCOUNTER → 2025-07-08 14:04 | Outpatient (BNV) | payer MEDICARE, SELFPAY | PROVIDERS: Absent Provider Surgery; PCP Internal Medicine; Visit Provider Radiology Diagnostic Radiology | DX: J98.11 Atelectasis (principal); R16.1 Splenomegaly, not elsewhere classified | CPT/HCPCS: 71260 ==

== ENCOUNTER 2025-07-29 18:59 | Emergency (ER) | payer MEDICARE, SELFPAY ==
--- NOTE | ~2025-07-29 | CT_ITS ---
CLINICAL HISTORY: hx of sbo, abdominal pain CT abdomen and pelvis with contrast Comparison: CT/REG/SR - CT ABDOMEN PELVIS W IV CON - 06/28/25 18:06 EST Findings: LIMITED CHEST: Right lower lobe atelectasis/scarring. LIVER: Small hypoattenuating lesions, too small to characterize however may represent cysts. BILIARY: No gallbladder wall thickening, radiopaque stone, or ductal dilatation. PANCREAS: No mass or ductal dilatation. SPLEEN: No splenomegaly. KIDNEYS: No hydronephrosis or radiopaque stone. ADRENALS: No nodule. VASCULAR: No aneurysm. RETROPERITONEUM: No lymphadenopathy or mass. BOWEL/MESENTERY: No evidence of obstruction. Oral contrast is visualized in the colon. There is severe masslike jejunal wall thickening in the right hemiabdomen with mild adjacent mesenteric stranding. Associated enlarged mesenteric lymph nodes measuring up to 1.8 cm. ABDOMINAL WALL: Small fat containing anterior abdominal wall ventral hernia URINARY BLADDER: No focal wall thickening. PELVIC NODES: No pelvic lymphadenopathy. PELVIC ORGANS: Normal for age. BONES: No acute fracture. OTHER: Negative. IMPRESSION: Masslike jejunal wall thickening with adjacent inflammatory stranding and mesenteric lymphadenopathy. Neoplasm is considered. No small bowel obstruction. This document has been electronically signed by: Idalmis Cardenas MD on 07/30/2025 01:20:27
--- OUTSIDE RECORDS SUMMARY | 2025-07-29 10:15 | XMS_ITS | Encounter Summary ---
Author Organization [facility] Address [address] [place] [address] [place] [phone] Phone Care Team Providers Care Hair Spinning Machine Operator Name Role Phone Daniella Colon MD Primary Care Provide r Encounter Details Date Type Department Care Team (Late st Contact Info) Description 07/29/2025 10:15 AM EST Pre-Admission Testing [facility] Pre-Procedure Evaluation Department [place] [phone] Unknown, Unknown, Anesthesia Record Procedure Summary Procedure Name Responsible Anesthesiologist Anesthesia Start Time Anesthesia Stop Time LAPAROSCOPY DIAGNOSTIC Events No events on file. Meds * Agents No agents on file. * Blood No blood administrations on file. Lines, Drains, and Airways No LDAs on file. documented in this encounter Social History Tobacco Use Types Packs/Day Years Used Date Smoking Tobacco: Never Smokeless Tobacco: Never Tobacco Cessation:Counseling Given: Not Answered Alcohol Use Standard Drinks/Week Comments Never 0 (1 standard drink = 0.6 oz pur e alcohol) Education Answer Date Recorded Are you interested [...] PM EST documented as of this encounter Last Filed Vital Signs Vital Sign Reading Time Taken Comments Blood Pressure - - Pulse - - Temperature - - Respiratory Rate - - Oxygen Saturation - - Inhaled Oxygen Concentration - - Weight 115.7 kg (255 lb) 07/29/2025 10:24 AM EST Height 177.8 cm (5' 10 ) 07/29/2025 10:24 AM EST Body Mass Index 36.59 07/29/2025 10:24 AM EST documented in this encounter Progress Notes * Balwinder Esteban RN - 07/29/2025 10:15 AM EST [facility] Pre Procedure Nursing Note: Information obtained from patient or commercial pest control representative and the medical record. Reviewed the following information with the patient or patient's commercial pest control representative. Verbalized understanding. NPO instructions To call Surgeon's office for: time of surgery, any health changes, questions about surgery, instructions for anticoagulation medications To arrive at [facility] day of surgery and what to, and to not, bring. Medications list with instructions for what to take and what to hold before surgery according to Adult Preoperative Medication Management Guidelines. Informed that more information could be found at the web site: [facility] preparing for surgery documented in this encounter Plan of Treatment Upcoming Encounters Date Type Department Care Team (Latest Contact Info) Description 08/01/2025 Procedure Pass [facility] [address] [place] [phone] 08/01/2025 10:27 AM EST Hospital Encounter [facility] [address] [place] [phone] Mack Woodson MD [address] [place] [phone] [email or web address] 08/01/2025 10:27 AM EST Anesthesia Event [facility] [address] [place] [phone] Balwinder Esteban RN [address] [place] [phone] [email or web address] 08/01/2025 10:27 AM EST - 08/01/2025 12:22 PM EST Surgery [facility] [address] [place] [phone] Mack Woodson MD [address] [place] [phone] [email or web address] LAPAROSCOPY DIAGNOSTIC Scheduled Procedures Name Priority Associated Diagnoses Date/Ti me LAPAROSCOPY DIAGNOSTIC Cancer of appendix 08/01/2025 10:27 AM EST documented as of this encounter Visit Diagnoses Not on filedocumented in this encounter Care Teams Hair Spinning Machine Operator Relationship Specialty Start Date End Date Daniella Colon MD [address] [place] [phone] PCP - General Internal Medicine 07/03/25 documented as of this encounter Additional Source Comments The information contained in this document represents components of the legal health record. It is not the complete legal health record.[facility]
[2025-07-29 19:06] VITALS: BP 176/83; PULSE 73; RESP 20; TEMP 37.2; O2SAT 92; BMI 36.6
--- NOTE | 2025-07-29 19:08 | ED.GENADULT ---
HPI - General Adult General Chief complaint: Abdominal Pain Stated complaint: ABD PAIN Time Seen by Provider: 07/29/25 21:07 Source: patient, RN notes reviewed and old records reviewed Mode of arrival: ambulatory Limitations: no limitations History of Present Illness ED Provider: Lona Dickson PA-C HPI narrative: 59-year-old male presents to the emergency department for evaluation of intermittent epigastric/mid-abdominal pain that began last night (? 2 days ago per earlier description). Pain comes and goes every 10?20 minutes and is associated with nausea and chills. He denies fever, recent trauma, or significant respiratory symptoms (only notices mild sensation with pain). Last bowel movement was yesterday and was abnormal for him; today he has been unable to pass stool despite straining. Attempted oral intake (ramen soup) today but was unable to tolerate. He is on iron supplementation, which he reports can contribute to constipation. The patient had a prior episode of presumed partial small-bowel obstruction (SBO) about one month ago and underwent prior abdominal surgery for colon cancer/obstruction. A CT abdomen in June showed an SBO with a transition point in the anterior right pelvis. He and his mother agree with outpatient-oriented management pending imaging results. Rapid medical exam was completed in triage prior to further evaluation. Constitutional: Positive chills; denies fever. Gastrointestinal: Positive intermittent abdominal pain, nausea, decreased bowel movements/constipation. No oral intake tolerance today. Respiratory: Denies respiratory symptoms except mild discomfort coinciding with abdominal pain. Trauma: Denies recent trauma. Related Data Home Medications ?Medication ?Instructions ?Recorded ?Confirmed atorvastatin 10 mg tablet 10 mg PO DAILY 10/22/20 07/26/25 carvedilol 12.5 mg tablet 12.5 mg PO BID 10/22/20 07/26/25 cholecalciferol (vitamin D3) 25 25 mcg PO DAILY 10/22/20 07/26/25 mcg (1,000 unit) capsule trazodone 150 mg tablet 150 mg PO BEDTIME 11/04/20 07/26/25 sertraline 100 mg tablet 150 mg PO BEDTIME 01/04/22 07/26/25 buspirone 10 mg tablet 10 mg PO DAILY 09/20/23 07/26/25 clotrimazole 1 % topical cream 1 appl topical BID PRN Rash 09/20/23 07/26/25 fluticasone propionate 50 1 - 2 spray intranasal DAILY PRN 04/09/24 07/26/25 mcg/actuation nasal cold and allergies spray,suspension tirzepatide 10 mg/0.5 mL 10 mg subcut FR 06/04/25 07/26/25 subcutaneous pen injector (Mounchrisro) ascorbic acid (vitamin C) 500 mg 500 mg PO BID 06/26/25 07/26/25 chewable tablet (Vitamin C) cetirizine 10 mg tablet 10 mg PO DAILY PRN Allergy Symptoms 06/26/25 07/26/25 insulin glargine 100 unit/mL (3 25 unit subcut DAILY 06/28/25 07/26/25 mL) subcutaneous pen (Lantus Solostar U-100 Insulin) Previous Rx's ?Medication ?Instructions ?Recorded omeprazole 20 mg capsule,delayed 20 mg PO DAILY@0630 #30 caps 09/08/24 release pen needle, diabetic 32 gauge x #100 ea 09/08/2408/18 blood sugar diagnostic (FreeStyle #100 ea 10/29/24 Lite Strips) blood-glucose meter (FreeStyle #1 ea 10/29/24 Lite Meter kit) glucose 4 gram chewable tablet 16 g (4 x 4 gram) PO Q15M PRN 10/29/24 (Dex4 Glucose) hypoglycemia #100 tabs lancets 28 gauge (FreeStyle #100 ea 10/29/24 Lancets) blood-glucose sensor (FreeStyle #2 ea 06/05/25 Deja 3 Plus Sensor device) oxycodone-acetaminophen 5 mg-325 1 tab PO TID PRN pain #20 tabs 07/02/25 mg tablet ferrous sulfate 325 mg (65 mg 325 mg PO BID #60 tabs 07/15/25 iron) tablet Allergies Allergy/AdvReac Type Severity Reaction Status Date / Time oxaliplatin Allergy Intermediate Shortness Verified 07/29/25 19:08 of Breath lisinopril (LISINOPRIL) Allergy Mild RASH Verified 07/29/25 19:08 Review of Systems Review of Systems: Yes all other systems are reviewed and are negative PMFSH Past Medical History Attestation statement: The following information was validated with the patient. Source: old records reviewed and nursing notes reviewed Medical History Elevated CEA Colon cancer Anemia History of blood transfusion (09/20/24) History of colon cancer Infected cyst of skin Cellulitis of abdominal wall Eye inflammation Sleep apnea Ambulates with cane Back pain due to injury Morbid obesity Umbilical hernia Obesity (BMI 30-39.9) Dyslipidemia Diabetic nephropathy associated with type 2 diabetes mellitus Epidermal cyst HTN (hypertension) Diabetes type 2, controlled Surgical History History of esophagogastroduodenoscopy (EGD) History of colon resection S/P right colectomy H/O colonoscopy S/P appendectomy History of umbilical hernia repair (~01/08/22) Hx of removal of cyst Family History Family History Father Diabetes Heart disease Mother Diabetes Heart disease Other No family history of cancer Social History Social History Household Members: Spouse Housing: House Are you a primary care clinician to a significant other at home: No Do you presently have visiting nurse or other home services: No Alcohol intake: never Comment: Ofirmev infusing at time of xfer Patient Tobacco Use Status: Never used Tobacco Smoked in Last 30 Days: No Use of substances other than those prescribed or required for medical reasons: No Advance Directives: Yes Advance Directives on File: Yes Advance Directives Date on File: 07/29/25 service: No Current occupational status: disabled Physical Exam ED Exam Exam: General: Appears in no acute distress, appears well nourished body habitus is obese, appears stated age. No septic or ill-appearing. Vitals reviewed normal, PMH/Social and Surgical hx reviewed including allergies and current medications. - reviewed for prior visits here and read as it pertains to similar CC. Head: Normocephalic, no obvious trauma or skin lesions noted. Eyes: EOMI, no sclera icterus ENMT: moist oral mucosa Neck: trachea midline Cardiovascular: peripheral perfusion normal, Regular heart rate, regular rhythm Respiratory: no respiratory distress, lungs clear Abdomen: obese, vertical central surgical scar, nontender, no seroma Extremities: warm and moving without difficulty Psych: Cooperative Neuro: Alert and oriented. Vital Signs: Vital Signs - 24 hr 07/29/25 19:06 07/29/25 22:13 07/30/25 00:58 Temperature 99.0 F 97.9 F 98.6 F Pulse Rate 73 80 75 Respiratory Rate 20 20 18 Blood Pressure 176/83 H 114/63 149/69 H Pulse Oximetry 92 96 96 Oxygen Delivery Method Room Air Room Air Room Air BMI result Body Mass Index 36.6 Course Course Course Narrative: Rapid medical examination performed in triage by Renate Del Cid PA-C: Patient is a 59 year old male presenting to the emergency department with abdominal pain. Detailed physical exam and review of systems are deferred to the early childhood aide classroom. Labs ordered. Patient placed back in the waiting room pending room availability and results. Medications Administered Discontinued Medications Generic Name Dose Route Start Last Admin Trade Name Freq PRN Reason Stop Dose Admin Diatrizoate Meglum/Diatrizoate Sod 30 ml 07/30/25 00:24 07/30/25 00:25 Diatrizoate Meglumine, Sodium 30 Ml Solution PO 07/30/25 00:25 30 ml ONCE ONE Administration Sodium Chloride 1,000 mls @ 999 mls/hr 07/29/25 21:10 07/29/25 22:59 Ns IV 07/29/25 22:10 Infused .Q1H1M ONE Infusion Iohexol 100 ml 07/30/25 00:33 07/30/25 00:33 Iohexol 350 Mg/Ml 100 Ml Infus..Btl IV 07/30/25 00:34 99 ml ONCE ONE Administration Morphine Sulfate 2 mg 07/29/25 21:19 07/29/25 21:47 Morphine Sulfate 4 Mg/Ml Cartridge IVPUSH 07/29/25 21:20 2 mg ONCE ONE Administration Protocol Ondansetron HCl 4 mg 07/29/25 21:19 07/29/25 21:47 Ondansetron Hcl 4 Mg/2 Ml Vial IVPUSH 07/29/25 21:20 4 mg ONCE ONE Administration Medical Decision Making Medical Decision Making [facility] Narrative: The patient is a 59-year-old male presenting with intermittent abdominal pain, nausea, and constipation. He has a significant history of prior small-bowel obstruction and abdominal surgery for colon cancer. Symptoms began approximately two days ago, with pain episodes every 10?20 minutes, associated with chills and inability to tolerate oral intake. He is currently on iron supplementation, which may contribute to constipation. His symptoms and history are concerning for recurrent small-bowel obstruction. Labs are largely unremarkable aside from chronic normocytic anemia. Management focuses on diagnostic imaging and supportive care while NPO. Differential Diagnosis: Recurrent small-bowel obstruction (SBO) given prior history and current symptoms. Constipation secondary to iron supplementation. Other causes of abdominal pain, including infection, ischemia, or medication side effects. Rationale for Diagnostic Testing: Repeat CT abdomen/pelvis with IV and PO contrast ordered to evaluate for SBO and identify any transition point or complications. Laboratory studies (CBC, CMP) obtained to assess for infection, anemia, and metabolic derangements. Assessment of Data Reviewed: Prior CT (June) demonstrated SBO with a transition point in the anterior right pelvis. Current labs show normocytic anemia at baseline, no leukocytosis, and no electrolyte imbalance. Management Decisions: NPO status instituted to minimize risk of worsening obstruction. IV fluid resuscitation initiated. Pain and antiemetic medications administered for symptom control. Awaiting CT imaging results to guide further management. Risk Assessment: High risk for recurrent bowel obstruction given surgical history and prior SBO. Potential need for surgical intervention if obstruction is confirmed or if complications (e.g., perforation, ischemia) develop. Ongoing monitoring for clinical deterioration or development of complications. Complexity of Case: This case is complex due to the patient?s multiple chronic conditions, prior abdominal surgery, and need for advanced imaging and multidisciplinary care. The diagnostic and management approach requires careful coordination and ongoing reassessment. - 126 am: IMPRESSION: Masslike jejunal wall thickening with adjacent inflammatory stranding and mesenteric lymphadenopathy. Neoplasm is considered. No small bowel obstruction. As patient is able to tolerate p.o. fluids and there is no bowel obstruction this does not meet admission criteria we will advise soft liquid diet advancing as tolerated these well as return precautions and to follow up outpatient with oncology versus gastroenterology. Differential Diagnosis Differential Diagnoses: The differential diagnosis associated with the presentation includes See [facility] Admission/Observation Consideration of admission/observation: Escalation of care including admission/observation considered Lab Data [facility] Lab Attestation statement: I reviewed the patient's lab results. Comprehensive metabolic panel: No electrolyte imbalance or metabolic dysfunction; magnesium normal. Complete blood count: Normocytic anemia at patient?s baseline, not meeting transfusion criteria; no leukocytosis noted. 07/29/25 19:20 07/29/25 19:20 Labs: Lab Results 07/29/25 07/29/25 Range/Units 19:20 19:47 WBC 7.1 (4.8-10.8) X10*3/uL RBC 4.21 L (4.60-5.80) X10*6/uL Hgb 11.7 L (14.0-18.0) g/dl Hct 38.2 L (42.0-52.0) % MCV 90.7 (80.0-98.0) fL MCH 27.8 (27.0-33.0) pg MCHC 30.6 L (31.0-36.0) g/dl RDW 14.9 (11.0-16.0) % Plt Count 142 L (160-400) X10*3/uL MPV 10.4 (9.4-12.4) fL Immature Gran % (Auto) 0.3 (0.0-0.4) % Neut % (Auto) 81.5 H (45-73) % Lymph % (Auto) 11.8 L (20-40) % [place] % (Auto) 5.5 (2-11) % Eos % (Auto) 0.6 (0-4) % Baso % (Auto) 0.3 (0-2) % Lymph # (Auto) 0.8 L (1.2-4.9) X10*3/uL [place] # (Auto) 0.4 (0.1-1.2) X10*3/uL Eos # (Auto) 0.0 (0.0-0.4) X10*3/uL Baso # (Auto) 0.0 (0.0-0.2) X10*3/uL Abs Immat Gran (auto) 0.02 (0.00-0.03) X10*3/uL Absolute Neuts (auto) 5.8 (2.0-8.3) x10*3/uL Absolute Nucleated RBC 0.000 (0.0-0.012) X10*3/uL Nucleated RBC % (auto) 0.0 (0.0-0.2) /100WBC Sodium 142 (135-145) mmol/L Potassium 4.0 (3.3-5.1) mmol/L Chloride 106 (96-108) mmol/L Carbon Dioxide 28 (22-29) mmol/L Anion Gap 12 (12-20) BUN 12 (9-16) mg/dL Creatinine 0.85 (0.5-1.4) mg/dL Estim Creat Clear Calc 119.2 Estimated GFR > 60 Random Glucose 133 H (60-115) mg/dL Calcium 9.1 (8.4-10.2) mg/dL Magnesium 2.0 (1.6-2.6) mg/dL Total Bilirubin 0.3 (0.0-1.0) mg/dL AST 22 (5-37) U/L ALT 18 (0-40) U/L Alkaline Phosphatase 83 (39-117) U/L Total Protein 6.6 (6.5-8.0) g/dL Albumin 4.3 (3.5-5.0) g/dL Urine Color Yellow Urine Appearance Clear Urine pH 6.0 (5.0-9.0) Ur Specific [place] 1.020 (1.005-1.025) Urine Protein Trace (Neg-Trace) mg/dL Urine Glucose (UA) Negative (Negative) mg/dL Urine Ketones Negative (Negative) mg/dL Urine Blood Negative (Negative) Urine Nitrite Negative (Negative) Ur Leukocyte Esterase Negative (Negative) Independent Interpretation I performed an independent interpretation of an: CT Scan Interpretation: cannot rule out SBO Radiology Impression Discussion of test interpretation with radiology: I have reviewed the radiologist's reading. Radiologist Impression: IMPRESSION: Masslike jejunal wall thickening with adjacent inflammatory stranding and mesenteric lymphadenopathy. Neoplasm is considered. No small bowel obstruction Tests considered The following testing was considered but not selected: CTA abd/pelvis, not consistent with mesenteric ischemia will defer Chronic Conditions Patient?s care impacted by: Diabetes, Hypertension and Other Social Determinants Patient?s care significantly limited by Social Determinants of Health including: Other Social Determinant of Health Critical Care Time Critical Care Time Critical Care Time: Yes Total Critical Care Time: 45 Attestation: This patient required critical care. Due to the fact that the patient required a significant amount of one on one physician ? patient contact time, ordering and review of studies, arranging urgent treatment with development of a management plan, evaluation of patient?s response to treatment with frequent reassessments, and discussions with other providers this patient required critical care time in excess of 30 minutes. Critical care time was indicated due to the inherent instability and/or potential for instability in this patient. The critical care time that is allocated to this patient is above and beyond any time spent on any other billable procedures performed on this patient. Discharge Plan Discharge Clinical Impression: History of colon cancer Abdominal pain Qualifiers: Abdominal location: generalized Qualified Code(s): R10.84 - Generalized abdominal pain Patient Disposition: Home, Self-Care Additional Instructions: Summary of Emergency Department Evaluation This 59-year-old male with a history of colon cancer, prior abdominal surgery, and previous small bowel obstruction presented to the Emergency Department with intermittent epigastric and mid-abdominal pain beginning approximately 2 days prior to arrival. He described pain coming in episodes every 10?20 minutes, associated with nausea, chills, and constipation. His last abnormal bowel movement was yesterday, and he has been unable to pass stool since despite straining. He is currently taking oral iron supplementation, which may contribute to constipation. Physical Examination: Patient was in no acute distress at bedside evaluation after analgesia. Abdominal pain was intermittent and well-controlled with medication. Laboratory Results: - Complete blood count: normocytic anemia at patient's baseline, not meeting transfusion criteria; no leukocytosis - Comprehensive metabolic panel: no electrolyte imbalance or metabolic abnormalities CT Abdomen/Pelvis with IV + PO Contrast Results: CT imaging revealed masslike jejunal wall thickening with adjacent inflammatory stranding and mesenteric lymphadenopathy. Neoplasm is a consideration based on these findings. Importantly, no evidence of small bowel obstruction was present on this study. Emergency Department Treatment: - NPO (nothing by mouth) status - Intravenous fluid resuscitation - Pain medication - Antiemetic therapy (Zofran) --- Discharge Instructions Follow-Up Care YOU MUST FOLLOW UP WITH YOUR ONCOLOGIST/LABORER BRUSH CLEARING SCHEDULED ON TUESDAY (2 DAYS FROM NOW). THIS APPOINTMENT IS CRITICAL. BRING YOUR CT SCAN RESULTS TO THIS APPOINTMENT. Your physician will need to review the imaging findings showing the jejunal (small intestine) wall thickening and enlarged lymph nodes to determine the next steps in your evaluation and treatment. Your specialist will likely recommend additional testing to determine the cause of these imaging findings, which may include: - Endoscopic evaluation of the small bowel - Possible biopsy of the affected area - Additional imaging studies if needed - Blood tests (tumor markers) Home Care Instructions for Abdominal Pain and Constipation Diet: - Resume a light, bland diet as tolerated, starting with clear liquids and advancing slowly - Stay well-hydrated: drink at least 8 glasses of water daily unless otherwise directed - Increase fiber intake gradually through fruits, vegetables, and whole grains once tolerating regular diet - Avoid foods that worsen your symptoms Medications: - Continue your prescribed medications as directed - Discuss your iron supplementation with your specialist, as this can contribute to constipation - Prra-rli-jqtpwts stool softeners (such as docusate) may be helpful if approved by your physician - Avoid prolonged use of stimulant laxatives without physician guidance Activity: - Gentle physical activity as tolerated can help with constipation - Rest when needed, but avoid prolonged bed rest Monitoring: - Keep track of your bowel movements - Monitor the character and frequency of your abdominal pain - Note any changes in your symptoms WARNING SIGNS: SEEK IMMEDIATE EMERGENCY CARE IF YOU DEVELOP ANY OF THE FOLLOWING: Return to the Emergency Department immediately or call 911 if you experience: - Severe, constant abdominal pain that is different from or much worse than your current pain - Fever greater than 101?F (38.3?C) or chills - Persistent vomiting that prevents you from keeping down liquids - Vomiting blood or material that looks like coffee grounds - Blood in your stool (red, maroon, or black tarry stools) - Inability to pass gas or stool for more than 12-24 hours - Progressive abdominal distension (swelling) - Signs of dehydration: decreased urination, extreme thirst, dizziness, confusion - Abdominal rigidity or severe tenderness when touching your abdomen - Fainting or severe weakness - Unexplained rapid weight loss Do Not Miss Your Follow-Up Appointment Given your history of colon cancer and the findings on your CT scan showing wall thickening and lymph node enlargement, it is essential that you keep your appointment with your oncologist/harness preparer. These findings require further evaluation to determine their cause and appropriate treatment. If you cannot attend this appointment for any reason, you must call your specialist's office immediately to reschedule as soon as possible Questions or Concerns If you have questions about your discharge instructions before your scheduled appointment, contact your oncologist/harness preparer's office. For urgent medical concerns or any of the warning signs listed above, go to the nearest Emergency Department immediately. --- Disposition: Discharged home with strict instructions for outpatient follow-up in 2 days Follow-Up: Oncologist/Body Trimmer appointment on Prescriptions: No Action (DME) FreeStyle Deja 3 Plus Sensor Device See Rx Instructions .ROUTE .N([id number] Qty: 2 5RF Rx Instructions: Use daily As directed to monitor glucose sertraline 100 mg tablet 150 mg PO BEDTIME Mounjaro 10 mg/0.5 mL pen injector 10 mg subcut FR ferrous sulfate 325 mg (65 mg iron) Tablet 325 mg PO BID Qty: 60 1RF insulin glargine [Lantus Solostar U-100 Insulin] 100 unit/mL (3 mL) insulin pen 25 unit subcut DAILY oxycodone-acetaminophen 5-325 mg tablet 1 tab PO TID PRN (Reason: pain) Qty: 20 0RF Rx Instructions: Partial Fill upon patient request. (DME) pen needle, diabetic 32 gauge x 1/4 needle Qty: 100 0RF Rx Instructions: Use four times a day or as directed. omeprazole 20 mg Capsule,Delayed Release(Dr/Ec) 20 mg PO DAILY@0630 Qty: 30 0RF cholecalciferol (vitamin D3) 25 mcg (1,000 unit) capsule 25 mcg PO DAILY atorvastatin 10 mg tablet 10 mg PO DAILY carvedilol 12.5 mg tablet 12.5 mg PO BID trazodone 150 mg tablet 150 mg PO BEDTIME clotrimazole 1 % cream 1 appl topical BID PRN (Reason: Rash) fluticasone propionate 50 mcg/actuation spray,suspension 1 - 2 spray intranasal DAILY PRN (Reason: cold and allergies) glucose [Dex4 Glucose] 4 gram tablet,chewable 16 g PO Q15M PRN (Reason: hypoglycemia) Qty: 100 0RF Rx Instructions: until symptoms of low blood sugar are controlled (DME) blood-glucose meter [FreeStyle Lite Meter] Kit Qty: 1 0RF Rx Instructions: As Directed (DME) FreeStyle Lite Strips Strip Qty: 100 3RF Rx Instructions: Test BID or as directed. (DME) lancets [FreeStyle Lancets] 28 gauge misc Qty: 100 0RF Rx Instructions: test blood glucose BID or as directed. buspirone 10 mg tablet 10 mg PO DAILY cetirizine 10 mg tablet 10 mg PO DAILY PRN (Reason: Allergy Symptoms) ascorbic acid (vitamin C) [Vitamin C] 500 mg tablet,chewable 500 mg PO BID Referrals: [facility] [Outside] Referral Note: This is mutual patient. He sees oncology via [facility] ; Review CT results, patient has follow up on 08/01/2025 Clinical Impression: History of colon cancer; Abdominal pain Print Language: Setsw[place]
[2025-07-29 19:53] LABS: MANUAL DIFF FLAG NO
[2025-07-29 19:54] LABS: Hematocrit 38.2 % (42.0-52.0); Hemoglobin 11.7 g/dl (14.0-18.0); Imm Gran Abs Auto 0.02 X10*3/uL (0.00-0.03); Imm Gran Pct Auto 0.3 % (0.0-0.4); Lymphocytes Absolute Auto 0.8 X10*3/uL (1.2-4.9); Mean Corpuscular HGB Conc 30.6 g/dl (31.0-36.0); Mean Corpuscular Hemoglobin 27.8 pg (27.0-33.0); Mean Corpuscular Volume 90.7 fL (80.0-98.0); NRBC Abs Auto 0.000 X10*3/uL (0.0-0.012); NRBC Pct Auto 0.0 /100WBC (0.0-0.2); Platelet Count 142 X10*3/uL (160-400); Red Blood Count 4.21 X10*6/uL (4.60-5.80); White Blood Count 7.1 X10*3/uL (4.8-10.8)
[2025-07-29 19:56] LABS: Appearance Urine Clear; Glucose Urine UA Negative (Negative); PH 6.0 (5.0-9.0); Specific Gravity - Urine 1.020 (1.005-1.025)
[2025-07-29 20:14] LABS: Alanine Aminotransferase 18 U/L (0-40); Albumin Level 4.3 g/dL (3.5-5.0); Alkaline Phosphatase 83 U/L (39-117); Anion Gap 12 (12-20); Aspartate Amino Transferase 22 U/L (5-37); Blood Urea Nitrogen 12 mg/dL (9-16); Calcium 9.1 mg/dL (8.4-10.2); Carbon Dioxide 28 mmol/L (22-29); Chloride 106 mmol/L (96-108); Creatinine Clr Calc Pharmacy 119.2; Estimated Glomerular Filt Rate > 60; Magnesium 2.0 mg/dL (1.6-2.6); Potassium 4.0 mmol/L (3.3-5.1); Sodium 142 mmol/L (135-145); Total Protein 6.6 g/dL (6.5-8.0)
[2025-07-29 22:13] VITALS: BP 114/63; PULSE 80; RESP 20; TEMP 36.6; O2SAT 96
--- OUTSIDE RECORDS SUMMARY | 2025-07-29 22:53 | XMS_ITS | Clinical Summary ---
Author Organization [facility] Address [address] [place] [address] [place] [phone] Phone Care Team Providers Care Tube Fitter Name Role Phone Daniella Colon MD Primary Care Provide r Allergies Active Allergy Reactions Criticality Noted Date Comments Lisinopril Rash,Rash with Skin Desquamation,Shortness Of Breath,Vertigo High 12/13/2024 Oxaliplatin Shortness Of Breath High 06/28/2025 Medications VITAMIN C 500 mg Chew Take 500 mg by mouth 2 (two) times a day. 5 Active atorvastatin (LIPITOR) 10 MG tablet Take 10 mg by mouth daily. Active busPIRone (BUSPAR) 10 MG tablet Take 10 mg by mouth daily. 5 Active carvedilol (COREG) 12.5 MG tablet Take 12.5 mg by mouth 2 (two) times a day with meals. Active cholecalciferol (VITAMIN D3) 25 MCG (1,000 unit) tablet Take 1,000 Units by mouth daily. Active insulin glargine 100 unit/mL (3 mL) InPn injection pen Inject 25 Units under the skin daily. 5 Active omeprazole (PRILOSEC) 20 MG capsule Take 20 mg by mouth daily. Active sertraline (ZOLOFT) 100 MG tablet Take 150 mg by mouth nightly at bedtime. 5 Active MOUNJARO 10 mg/0.5 mL PnIj subcutaneous pen Inject 10 mg under the skin once a week. Tuesday 5 Active traZODone (DESYREL) 150 MG tablet Take 150 mg by mouth nightly at bedtime. 5 Active FREESTYLE BEVERLY 3 PLUS SENSOR Brigitte Active Encounters Date Type Department Care Team Description 07/29/2025 10:15 AM EST Pre-Admission Testing [facility] Pre-Procedure Evaluation Department Please [place] [phone] Jason Gomez MD 07/25/2025 Lab Requisition [facility] Lab Main [address] [place] [address] Mack Woodson MD 07/23/2025 Orders Only [facility] [address] [place] [address], 7th Floor, [address] [place] [address] Mack Woodson MD 07/22/2025 10:00 AM EST Office Visit [facility] [address] [facility], 7th Floor, [address] [place] [address] Mack Woodson MD Cancer of appendix (Primary Dx) 07/22/2025 10:00 AM EST Office Visit [facility] [address] [facility], 7th Floor, [address] [place] [address] Wilmer Bentley MD Malignant neoplasm of ascending colon (Primary Dx) 07/22/2025 Orders Only [facility] [address] [place] [address], 7th Floor, [address] [place] [address] Wilmer Bentley MD Cancer of appendix (Primary Dx) 07/09/2025 Ancillary Orders [facility] [address] [place] [address] Mack Woodson MD 07/05/2025 Ancillary Orders [facility] [address] [place] [address] Mack Woodson MD 07/05/2025 Ancillary Orders [facility] [address] [place] [address] Mack Woodson MD 07/05/2025 Ancillary Orders [facility] [address] [place] [address] Mack Woodson MD 07/05/2025 Ancillary Orders [facility] [address] [place] [address] Mack Woodson MD 07/04/2025 Telephone [facility] General & Gastrointestinal Surgery [address] [facility], 4th Floor, [address] [place] [address] Lucio Villalobos MD 07/04/2025 Telephone [facility] General & Gastrointestinal Surgery [address] [facility], 4th Floor, [address] [place] [address] Lucio Villalobos MD 07/03/2025 Transcribe Orders [facility] [address] [place] [address] Lit Norton MD Malignant neoplasm of appendix (Primary Dx) 06/28/2025 - 06/28/2025 11:59 PM EST Hospital Encounter [facility] [address] [place] [address] Mack Woodson MD Discharge Disposition: Home or Self Care 05/22/2025 - 05/22/2025 11:59 PM EDT Hospital Encounter [facility] [address] [place] [address] Mack Woodson MD Discharge Disposition: Home or [...] Orientation Straight 07/03/2025 2: 18 PM EST Last Filed Vital Signs Vital Sign Reading Time Taken Comments Blood Pressure 115/70 07/22/2025 10:04 AM EST Pulse 72 07/22/2025 10:04 AM EST Temperature 36.3 C (97.3 F) 07/22/2025 10:04 AM EST Respiratory Rate 18 07/22/2025 10:04 AM EST Oxygen Saturation 97% 07/22/2025 10:04 AM EST Inhaled Oxygen Concentration - - Weight 115.7 kg (255 lb) 07/29/2025 10:24 AM EST Height 177.8 cm (5' 10 ) 07/29/2025 10:24 AM EST Body Mass Index 36.59 07/29/2025 10:24 AM EST Plan of Treatment Upcoming Encounters Date Type Department Care Team (Latest Contact Info) Description 08/01/2025 Procedure Pass [facility] PERIOPER[facility]IVE DEPT [address] [place] [phone] 08/01/2025 10:27 AM EST Hospital Encounter [facility]IVE DEPT [address] [place] [phone] Mack Woodson MD [address] [place] [phone] [email or web address] 08/01/2025 10:27 AM EST Anesthesia Event [facility]IVE DEPT [address] [place] [phone] Balwinder Esteban RN [address] [place] [phone] [email or web address] 08/01/2025 10:27 AM EST - 08/01/2025 12:22 PM EST Surgery [facility] [address] [place] [phone] Mack Woodson MD [address] [place] [phone] [email or web address] LAPAROSCOPY DIAGNOSTIC Scheduled Procedures Name Priority Associated Diagnoses Date/Ti me LAPAROSCOPY DIAGNOSTIC Cancer of appendix 08/01/2025 10:27 AM EST Health Maintenance Due Date Last Done Comments Adult Td,Tdap Booster 1965 LIPID PANEL 1965 DEPRESSION SCREENING 1977 HEPATITIS C SCREENING 1983 HIV ONE-TIME SCREENING (18-6 5 YEARS) 1983 PNEUMOCOCCAL VACCINES (50+ y ears) (1 of 2 - PCV) 1984 ZOSTER VACCINES (1 of 2) 1984 SCREENING FOR DIABETES 2000 COLOGUARD 2010 COLONOSCOPY 2010 COLORECTAL CANCER SCREENING 2010 FIT TEST 2010 FOBT 2010 SIGMOIDOSCOPY 2010 VIRTUAL COLONOSCOPY 2010 INFLUENZA VACCINE (#1) 2025 COVID-19 VACCINE ( - 2024-2 6 season) 2025 RSV VACCINE (1 - 1-dose 75+ series) 2040 SMOKING STATUS SCREENING (On ce After 26 Yrs) Completed 07/29/2025 HEPATITIS A VACCINES Aged Out No long [...] Name Priority Date/Time Associated Diagnosis Comments OUTSIDE PATHOLOGY REVIEW/CONSULT Routine 07/25/2025 11:45 AM EST OUTSIDE LAB 07/03/2025 OUTSIDE IMAGING 07/03/2025 OUTSIDE PROCEDURE 07/03/2025 CT ABDOMEN/PELVIS OUTSIDE WITH INTERPRETATION OR CONSULT Routine 06/28/2025 12:00 AM EST NM PET WHOLE BODY OUTSIDE WITH INTERPRETATION OR CONSULT Routine 05/22/2025 12:00 AM EDT from Last 3 Months Results * Outside Pathology Review/Consult (07/25/2025 11:45 AM EST) Consult Auto Resulting Yes 07/25/2025 2:56 PM EST [facility] Consult 07/25/2025 11:4 5 AM EST 07/25/2025 11:45 AM EST us Mack Woodson MD LAB PATHOLOGY ORDERABLES Fin al Result [facility] [address] [place] [address] * Outside Imaging Report Only (07/03/2025) us [...] hepatic segment 7 hypodense lesion abdominal MRI [facility] 07/05/2025 10:3 3 AM EST Impressions [facility] - 07/05/2025 11:02 AM EST Since [...] studies available to assess for stability. Narrative [facility] - 07/05/2025 11:[address] [...] COMPARISON: CT ABDOMEN/PELVIS OUTSIDE WITH INTERPRETATION OR [id number] FINDINGS: Lower chest: Bibasilar atelectasis. No pleural [...] OUTSIDE IMAGING W/ INTER PRETATION Final Result [facility] [address] [place] [address] * NM PET Whole Body Outside With Interpretation Or Consult (05/22/2025 12:00 AM EDT) 07/17/2025 9:28 AM EST Impressions [facility] - 07/18/2025 8:50 PM EST * Prior right hemicolectomy. * A ~5 cm segment of intensely FDG avid distal small bowel in the right lower quadrant with adjacent irregular perienteric soft tissue. Moderately intense FDG uptake to the right lower quadrant mesenteric lymphadenopathy. The findings are overall concerning for malignancy with brayan involvement, although an inflammatory process is not excluded. * The segment 7 hepatic hypodensity described on the diagnostic CT is not FDG avid, likely benign. It would have been better characterized on MRI from 06/07/2025. * Heterogeneous moderate uptake to the midline abdominal wall surgical scar with multiple small fat-containing incisional hernias, likely inflammatory. -------- This report is limited to the body part and modality requested, regardless of which images were uploaded. If additional reports are required, please contact the appropriate Division of the Radiology Department. 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 PET for initial treatment strategy. TECHNIQUE: ---This study was performed and interpreted outside of [facility]. It has been imported to the [facility] Imaging system for review, based upon patient identifier provided by the source institution. TECHNIQUE: An outside FDG PET/CT from the skull base to mid thigh performed at [facility] on 05/22/2025 with report is provided for review. Oral but no IV contrast was given. Attenuation correction CT images were reviewed for localization purposes as part of this interpretation but were not formally reported. IMAGE QUALITY: Adequate, performed with relatively high levels of count-related noise. SERIES SUBMITTED: PET AC, PET NAC, and CT images. COMPARISON: CT ABDOMEN/PELVIS OUTSIDE WITH INTERPRETATION OR CONSULT ; CT ABDOMEN/PELVIS OUTSIDE WITH INTERPRETATION OR CONSULT FINDINGS: HEAD AND NECK: Acquisition parameters and the field of view were optimized for the whole body and are suboptimal for assessment of the brain parenchyma. There are no sites of suspicious FDG uptake in the neck. CHEST: There are no sites of suspicious FDG uptake in the chest. Right-sided chest port tip terminating in the right atrium. Coronary calcifications. Mild bibasilar atelectasis. ABDOMEN AND PELVIS: Prior right hemicolectomy. There is a ~5 cm segment of distal small bowel in the right lower quadrant with intense FDG uptake (SUV max of 8.0 on image 155), corresponding to the area of small bowel thickening described on the subsequently performed diagnostic abdominopelvic CT from 06/28/2025. Adjacent irregular perienteric soft tissue shows moderate uptake (image 149). Otherwise, multiple areas of increased nonfocal bowel uptake remain within the wide ranges of physiologic bowel uptake, noting negative EGD/colonoscopy from 04/2025. The right lower quadrant mesenteric lymphadenopathy described on the diagnostic CT from 06/28/2025 show moderately intense FDG uptake (SUV max of 3.9 on image 136). The segment 7 hepatic hypodensity described on the diagnostic CT from 06/28/2025 does not demonstrate FDG avidity (image 84). Heterogeneous moderate uptake to the midline abdominal wall surgical scar with multiple small fat-containing incisional hernias, likely inflammatory. Please refer to the CT abdomen pelvis from 06/28/2025 for anatomic findings. MUSCULOSKELETAL: There are no sites of suspicious FDG uptake in the skeleton. Procedure Note Heladio Jimenez MD - 07/18/2025 EXAM: NM PET WHOLE BODY OUTSIDE WITH INTERPRETATION OR CONSULT REINTERPRETATION INDICATION: Appendiceal cancer s/p colon resection [id number] now with concerns for ; recurrence. PET for initial treatment strategy. TECHNIQUE: ---This study was performed and interpreted outside of [facility]. It has been imported to the [facility] Imaging system [employer], based upon patient identifier provided by the sourceinstitution. TECHNIQUE: An outside FDG PET/CT from the skull base to mid thighperformed at [facility] on 05/22/2025 with reportis provided for review. Oral but no IV contrast was given. Attenuationcorrection CT images were reviewed for localization purposes as part ofthis interpretation but were not formally reported. IMAGE QUALITY: Adequate, performed with relatively high levels ofcount-related noise. SERIES SUBMITTED: PET AC, PET NAC, and CT images. COMPARISON: CT ABDOMEN/PELVIS OUTSIDE WITH INTERPRETATION OR [id number]; CT ABDOMEN/PELVIS OUTSIDE WITH INTERPRETATION OR [id number] FINDINGS: HEAD AND NECK: Acquisition parameters and the field of view were optimized for the wholebody and are suboptimal for assessment of the brain parenchyma. There are no sites of suspicious FDG uptake in the neck. CHEST: There are no sites of suspicious FDG uptake in the chest. Right-sided chest port tip terminating in the right atrium. Coronarycalcifications. Mild bibasilar atelectasis. ABDOMEN AND PELVIS: Prior right hemicolectomy. There is a ~5 cm segment of distal small bowel in the right lower quadrantwith intense FDG uptake (SUV max of 8.0 on image 155), corresponding tothe area of small bowel thickening described on the subsequently performeddiagnostic abdominopelvic CT from 06/28/2025. Adjacent irregularperienteric soft tissue shows moderate uptake (image 149). Otherwise, multiple areas of increased nonfocal bowel uptake remain withinthe wide ranges of physiologic bowel uptake, noting negativeEGD/colonoscopy from 04/2025. The right lower quadrant mesenteric lymphadenopathy described on thediagnostic CT from 06/28/2025 show moderately intense FDG uptake (SUV maxof 3.9 on image 136). The segment 7 hepatic hypodensity described on the diagnostic CT from06/28/2025 does not demonstrate FDG avidity (image 84). Heterogeneous moderate uptake to the midline abdominal wall surgical scarwith multiple small fat-containing incisional hernias, likelyinflammatory. Please refer to the CT abdomen pelvis from 06/28/2025 foranatomic findings. MUSCULOSKELETAL: There are no sites of suspicious FDG uptake in the skeleton. IMPRESSION: * Prior right hemicolectomy. * A ~5 cm segment of intensely FDG avid distal small bowel in the rightlower quadrant with adjacent irregular perienteric soft tissue. Moderatelyintense FDG uptake to the right lower quadrant mesenteric lymphadenopathy.The findings are overall concerning for malignancy with brayan involvement,although an inflammatory process is not excluded. * The segment 7 hepatic hypodensity described on the diagnostic CT is notFDG avid, likely benign. It would have been better characterized on MRIfrom 06/07/2025. * Heterogeneous moderate uptake to the midline abdominal wall surgicalscar with multiple small fat-containing incisional hernias, likelyinflammatory. -------- This report is limited to the body part and modality requested, regardlessof which images were uploaded. If additional reports are required, pleasecontact the appropriate Division of the Radiology Department. us Mack Woodson MD IMG OUTSIDE IMAGING W/ INTER PRETATION Final Result [facility] [address] [place] [address] from Last 3 Months Insurance [facility] C[facility] MEDICARE REPLACEMENT MEDICARE PART A & B [facility] C[facility] MEDICARE REPLACEMENT MEDICARE PART A & B [facility] MEDICARE REPLACEMENT MEDICARE PART A & B [facility] MEDICARE REPLACEMENT MEDICARE PART A & B [facility] MEDICARE REPLACEMENT MEDICARE PART A & B [facility] MEDICARE REPLACEMENT MEDICARE PART A & B Care Teams Tube Fitter Relationship Specialty Start Date End Date Daniella Colon MD [address] [place] [phone] PCP - General Internal Medicine 07/03/25 Additional Source Comments The information contained in this document represents components of the legal health record. It is not the complete legal health record.[facility]
--- OUTSIDE RECORDS SUMMARY | 2025-07-29 22:53 | XMS_ITS | Clinical Summary ---
Author Organization [address] [facility] Address [address] [place] [address] Phone Care Team Providers Care Retail Marketing Executive Name Role Phone Shyann Bermudez Primary Care Provider [phone] Allergies Active Allergy Reactions Criticality Noted Date Comments Lisinopril 12/13/2024 Encounters Date Type Department Care Team Description 05/22/2025 9:17 AM EDT - 05/22/2025 11:59 PM EDT Hospital Encounter [facility] PET Scan [address] [place] [phone] Secondary malignant neoplasm of retroperitoneum and peritoneum [...] Signed Date: 05/29/2025 13:11 ET Workstation ID: [id number] Transcribed By: Self Edit Transcribed Date: 05/29/2025 [...] Signed Date: 05/29/2025 13:11 ET Workstation ID: [id number] Transcribed By: Self Edit Transcribed Date: 05/29/2025 12:40 ET us Jil Robles MD IMG NM PROCEDURES Final Result from Last [address] [place] [address] [place] [address] [facility] [phone] Care Teams Retail Marketing Executive Relationship Specialty Start Date End Date Shyann Bermudez PA [address] [place] [phone] PCP - General Physician Insurance Appraiser 10/24/24
--- OUTSIDE RECORDS SUMMARY | 2025-07-29 22:53 | XMS_ITS | Encounter Summary ---
Author Organization [facility] Address [address] [facility] [place] [address] Phone Care Team Providers Care Studio Set Up Worker Name Role Phone Daniella Colon MD Primary Care Provide r Encounter Details Date Type Department Care Team (Late st Contact Info) Description 07/04/2025 Telephone [facility] General & Gastrointestinal Surgery [address] [facility], 4th Floor, [address] [place] [address] Lucio Villalobos MD [address] [facility] [address] [place] [address] [email or web address] History Tobacco Use Types [...] (Latest Contact Info) Description 08/01/2025 Procedure Pass [facility] PER[facility]OPER[facility]IVE DEPT [address] [place] [phone] 08/01/2025 10:27 AM EST Hospital Encounter [facility]IVE DEPT [address] [place] [phone] Mack Woodson MD [address] [place] [phone] [email or web address] 08/01/2025 10:27 AM EST Anesthesia Event [facility] PER[facility]OPER[facility]IVE DEPT [address] [place] [phone] Balwinder Esteban RN [address] [place] [phone] [email or web address] 08/01/2025 10:27 AM EST - 08/01/2025 12:22 PM EST Surgery [facility] PERIOPER[facility]IVE DEPT [address] [place] [phone] Mack Woodson MD [address] [place] [phone] [email or web address] LAPAROSCOPY DIAGNOSTIC Scheduled Procedures Name Priority Associated Diagnoses Date/Ti me LAPAROSCOPY DIAGNOSTIC Cancer of appendix 08/01/2025 10:27 AM EST documented as of this encounter Visit Diagnoses Not on filedocumented in this encounter Care Teams Studio Set Up Worker Relationship Specialty Start Date End Date Daniella Colon MD [address] [place] [address] [address] [place] [address] PCP - General Internal Medicine 07/03/25 documented as of this encounter Additional Source Comments The information contained in this document represents components of the legal health record. It is not the complete legal health record.[facility]
--- OUTSIDE RECORDS SUMMARY | 2025-07-29 22:53 | XMS_ITS | Encounter Summary ---
Author Organization [facility] Address [address] [place] [address] [place] [phone] Phone Care Team Providers Care Molding Manager Name Role Phone Daniella Colon MD Primary Care Provide r Encounter Details Date Type Department Care Team (Late st Contact Info) Description 07/25/2025 Lab Requisition [facility] Lab Main [address] [place] [phone] Mack Woodson MD [address] [place] [phone] [email or web address] Social History Tobacco Use Types Packs/Day Years [...] as of this encounter Plan of Treatment Upcoming Encounters Date Type Department Care Team (Latest Contact Info) Description 08/01/2025 Procedure Pass [facility] [address] [place] [phone] 08/01/2025 10:27 AM EST Hospital Encounter [facility] [address] [place] [phone] Mack Woodson MD [address] [place] [phone] [email or web address] 08/01/2025 10:27 AM EST Anesthesia Event [facility]PT [address] [place] [phone] Balwinder Esteban RN [address] [place] [phone] [email or web address] 08/01/2025 10:27 AM EST - 08/01/2025 12:22 PM EST Surgery [facility] [address] [place] [phone] Mack Woodson MD [address] [place] [phone] [email or web address] LAPAROSCOPY DIAGNOSTIC Pending Results Name Type Priority Associated Diagnoses Date /Time Tissue Exam Pathology and Cytology Routine 1 09/25/2024 11:45 AM EST Scheduled Procedures Name Priority Associated Diagnoses Date/Ti me LAPAROSCOPY DIAGNOSTIC Cancer of appendix 08/01/2025 10:27 AM EST documented as of this encounter Procedures Procedure Name Priority Date/Time Associated Diagnosis Comments OUTSIDE PATHOLOGY REVIEW/CONSULT Routine 07/25/2025 11:45 AM EST documented in this encounter Results * Outside Pathology Review/Consult (07/25/2025 11:45 AM EST) Consult Auto Resulting Yes 07/25/2025 2:56 PM EST [facility] Consult 07/25/2025 11:4 5 AM EST 07/25/2025 11:45 AM EST us Mack Woodson MD LAB PATHOLOGY ORDERABLES Fin al Result [facility] [address] [place] [address] documented in this encounter Visit Diagnoses Not on filedocumented in this encounter Care Teams Molding Manager Relationship Specialty Start Date End Date Daniella Colon MD [address] [place] [phone] PCP - General Internal Medicine 07/03/25 documented as of this encounter Additional Source Comments The information contained in this document represents components of the legal health record. It is not the complete legal health record.[facility]
--- OUTSIDE RECORDS SUMMARY | 2025-07-29 22:53 | XMS_ITS | Encounter Summary ---
Author Organization [facility] Address [address] [place] [address] Phone Care Team Providers Care Retail Loan Originator Name Role Phone Daniella Colon MD Primary Care Provide r Encounter Details Date Type Department Care Team (Late st Contact Info) Description 07/23/2025 Orders Only [facility] [address] 7[address], [address] [place] [address] Mack Woodson MD [address] [place] [phone] [email or web address] Social History Tobacco Use Types Packs/Day Years [...] (Latest Contact Info) Description 08/01/2025 Procedure Pass [facility] [address] [place] [phone] 08/01/2025 10:27 AM EST Hospital Encounter [facility] [address] [place] [phone] Mack Woodson MD [address] [place] [phone] [email or web address] 08/01/2025 10:27 AM EST Anesthesia Event [facility] [address] [place] [phone] Balwinder Esteban RN [address] [place] [phone] [email or web address] 08/01/2025 10:27 AM EST - 08/01/2025 12:22 PM EST Surgery [facility] [address] [place] [phone] Mack Woodson MD [address] [place] [phone] [email or web address] LAPAROSCOPY DIAGNOSTIC Scheduled Procedures Name Priority Associated Diagnoses Date/Ti me LAPAROSCOPY DIAGNOSTIC Cancer of appendix 08/01/2025 10:27 AM EST documented as of this encounter Visit Diagnoses Not on filedocumented in this encounter Care Teams Retail Loan Originator Relationship Specialty Start Date End Date Daniella Colon MD [address] [place] [phone] PCP - General Internal Medicine 07/03/25 documented as of this encounter Additional Source Comments The information contained in this document represents components of the legal health record. It is not the complete legal health record.[facility]
--- OUTSIDE RECORDS SUMMARY | 2025-07-29 22:53 | XMS_ITS | Encounter Summary ---
Author Organization [facility] Address [address] [place] [address] Phone Care Team Providers Care Supervisor Final Name Role Phone Daniella Colon MD Primary Care Provide r Encounter Details Date Type Department Care Team (Late st Contact Info) Description 07/04/2025 Telephone [facility] [address] 4[address], [address] [place] [address] Lucio Villalobos MD [address] [place] [address] [email or web address] Social History Tobacco Use Types Packs/Day Years [...] (Latest Contact Info) Description 08/01/2025 Procedure Pass [facility] [address] [place] [phone] 08/01/2025 10:27 AM EST Hospital Encounter [facility] [address] [place] [phone] Mack Woodson MD [address] [place] [phone] [email or web address] 08/01/2025 10:27 AM EST Anesthesia Event [facility] [address] [place] [phone] Balwinder Esteban RN [address] [place] [phone] [email or web address] 08/01/2025 10:27 AM EST - 08/01/2025 12:22 PM EST Surgery [facility] [address] [place] [phone] Mack Woodson MD [address] [place] [phone] [email or web address] LAPAROSCOPY DIAGNOSTIC Scheduled Procedures Name Priority Associated Diagnoses Date/Ti me LAPAROSCOPY DIAGNOSTIC Cancer of appendix 08/01/2025 10:27 AM EST documented as of this encounter Visit Diagnoses Not on filedocumented in this encounter Care Teams Supervisor Final Relationship Specialty Start Date End Date Daniella Colon MD [address] [place] [phone] PCP - General Internal Medicine 07/03/25 documented as of this encounter Additional Source Comments The information contained in this document represents components of the legal health record. It is not the complete legal health record.[facility]
--- OUTSIDE RECORDS SUMMARY | 2025-07-29 22:53 | XMS_ITS ---
Author Name Rosana NAVARRETE, MRS. [facility] Address [address] [place] [address] Phone [phone] [facility] Care Team Providers Care [employer] [facility] Hospitalist Name Role Phone Monica Wayne Unavailable [phone] LUANNE CANELA Unavailable [phone] [facility] Unavailable Julia Vann Unavailable [phone] OMID OLVERA Unavailable [phone] TYREE PEACOCK Unavailable [phone] DOMINIQUE CHINO Unavailable [phone] Shyann Bermudez Unavailable [phone] Reason for Referral Not Available Allergies, adverse [...] organ damage (headache, vision changes, chest pain)/ 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 95 for video, modifier 93 for phone [facility], [place] [facility]) 02/15/2023 Type 2 diabetes mellitus wit h other specified complicationHyperlipidemia, unspecifiedEssential (primary) hypertensionMalignant neoplasm of appendixMajor depressive disorder, recurrent, mildMigraine, unspecified, not intractable, without status migrainosusMorbid (severe) obesity due to excess caloriesBody mass index (BMI) 35.0-35.9, adult New patient, 30-44min 1 stable chronic or 2 minor; add modifier 95 for video, modifier 93 for phone [facility], [place] 02/15/2023 New patient, 30-44min 1 stable chronic or 2 minor; add modifier 95 for video, modifier 93 for phone [facility] [place] 02/15/2023 New patient, 30-44min 1 stable chronic or 2 minor; add modifier 95 for video, modifier 93 for phone [facility], [place] 02/15/2023 New patient, 30-44min 1 stable chronic or 2 minor; add modifier 95 for video, modifier 93 for phone [facility] 02/15/2023 New patient, 30-44min 1 stable chronic or 2 minor; add modifier 95 for video, modifier 93 for phone [facility] [place] 02/15/2023 New patient, 30-44min 1 stable chronic or 2 minor; add modifier 95 for video, modifier 93 for phone [facility] 02/15/2023 Estab. patient 30-39min; chronic exacerbation, 2 stable chronic or 1 acute illness add add modifier 95 for video, (do not use for phone, instead use 30529-82) [facility] [place] 05/17/2024 Type 2 diabetes mellitus wit h [...] (do not use for phone, instead use 27689-70) [facility] [place] 05/17/2024 Estab. patient 30-39min; chronic exacerbation, 2 stable chronic or 1 acute illness add add modifier 95 for video, (do not use for phone, instead use 38215-29) [facility] [place] 05/17/2024 Estab. patient 30-39min; chronic exacerbation, 2 stable chronic or 1 acute illness add add modifier 95 for video, (do not use for phone, instead use 75146-04) [facility] [place] 05/17/2024 Estab. patient 30-39min; chronic exacerbation, 2 stable chronic or 1 acute illness add add modifier 95 for video, (do not use for phone, instead use 66735-99) [facility] [place] 05/17/2024 Estab. patient 30-39min; chronic exacerbation, 2 stable chronic or 1 acute illness add add modifier 95 for video, (do not use for phone, instead use 79714-32) [facility] [place] 05/17/2024 Estab. patient 30-39min; chronic exacerbation, 2 stable chronic or 1 acute illness add add modifier 95 for video, (do not use for phone, instead use 47165-37) [facility] [place] 05/17/2024 Estab. patient 30-39min; chronic exacerbation, 2 stable chronic or 1 acute illness add add modifier 95 for video, (do not use for phone, instead use 90997-63) [facility] [place] 05/17/2024 Estab. patient 30-39min; chronic exacerbation, 2 stable chronic or 1 acute illness add add modifier 95 for video, (do not use for phone, instead use 30116-49) [facility] [place] 05/17/2024 Estab. patient 30-39min; chronic exacerbation, 2 stable chronic or 1 acute illness add add modifier 95 for video, (do not use for phone, instead use 85125-02) [facility] [place] 05/17/2024 Vital Signs Date of Collection Vitals [...] tive Time Current Smoking Status Never smoker 2025-07-15 6 Sex Male History of Procedures Procedures Service Procedure code Service date Servicing provider Phone# New patient, 30-44min 1 stable chronic or 2 minor; add modifier 95 for video, modifier 93 for phone [id number] 2023-02-15 No Data Available No Data Available [...] (do not use for phone, instead use 39708-81) [id number] 2024-05-17 No Data Available No Data Availa [...] organ damage (headache, vision changes, chest pain)/ 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
[2025-07-30] MEDS: iohexoL 350 MG/ML 100 ML INFUS..BTL IV (00:33)
[2025-07-30 00:58] VITALS: BP 149/69; PULSE 75; RESP 18; TEMP 37; O2SAT 96
[2025-07-30 02:08] VITALS: BP 149/69; PULSE 75; RESP 18; TEMP 37; O2SAT 96
--- OUTSIDE RECORDS SUMMARY | 2025-09-01 19:00 | XMS_ITS | Clinical Summary ---
Author Organization Unknown Care Team Providers Care Sample Mounter Name Role Phone MAY GONZALES, OMID Gu Unavailkatlyn FLORES RN, DANIE Unavailable Unavailable Payers Payer Name Policy Type Policy Number Effective Date Expira tion Date [facility] [place] [facility] [id number] [place] [facility] [id number] [place] [id number] Problems Condition Name Condition Details Condition Category Status Onset Date Resolution Date Last Treatment Date Treating Clinician Comments OTHER PARTIAL INTESTINAL OBSTRUCTION Active 2024-08 00:00: 00 ANEMIA, UNSPECIFIED Active 2024-08 00:00: 00 SLEEP APNEA, UNSPECIFIED Active 2024-08 00:00: 00 OBESITY, UNSPECIFIED Active 2024-08 00:00: 00 LOW BACK PAIN, UNSPECIFIED Active 2024-08 00:00: 00 MORBID (SEVERE) OBESITY DUE TO EXCESS CALORIES Active 2024-08 00:00: 00 TYPE 2 DIABETES MELLITUS WITH DIABETIC NEUROPATHY, UNSP Active 2024-08 00:00: 00 TYPE 2 DIABETES MELLITUS WITHOUT COMPLICATION S Active 2024-08 00:00: 00 ESSENTIAL (PRIMARY) HYPERTENSION Active 2024-08 00:00: 00 Allergies, Adverse Reactions, Alerts Allergy Name Allergy Type Status Severity Reaction(s) Onset Date Inactive Date Treating Clinician Comments OXALIPLATIN Propensity to adverse reactions Active 2024-08 13:56: 04 Medications Ordered Medication Name Filled Medication Name Start Date Stop Date Current Medication? Ordering Clinician Indication Dosage Frequency Signature (SIG) Comments Components losartan 50 mg tablet 09-12 00:00: 00 06-30 23:59 :00 No [id number] Per instruc tions EVERY DAY Per instructio ns EVERY DAY (route: oral) Med Classific ation: Cardiovas cular Therapy Agents sertraline 25 mg tablet 2-18 00:00: 00 11-19 23:59 :00 No [id number] Per instruc tions AT BEDTIME Per instructio ns AT BEDTIME (route: oral) Med Classific ation: Central Nervous System Agents atorvastati n 10 mg tablet 2-24 00:00: 00 06-30 23:59 :00 No [id number] Per instruc tions EVERYDAY AT BEDTIME Per instructio ns EVERYDAY AT BEDTIME (route: oral) Med Classific ation: Cardiovas cular Therapy Agents amlodipine 10 mg tablet 1-29 00:00: 00 11-19 23:59 :00 No [id number] Per instruc tions EVERY DAY Per instructio ns EVERY DAY (route: oral) Med Classific ation: Cardiovas cular Therapy Agents Vitamin D3 25 mcg (1,000 unit) capsule -18 00:00: 00 06-30 23:59 :00 No [id number] Per instruc tions EVERY DAY Per instructio ns EVERY DAY (route: oral) Med Classific ation: Electroly te Balance-N utritiona l Products trazodone 150 mg tablet -16 00:00: 00 06-30 23:59 :00 No [id number] 50 mg EVERY DAY AT 50 mg EVERY DAY AT (route: oral) Med Classific ation: Central Nervous System Agents Trulicity 0.75 mg/0.5 mL subcutaneou s pen injector 3-22 00:00: 00 11-19 23:59 :00 No [id number] 1.5 mg WEEKLY 1.5 mg WEEKLY (route: subcutaneo us) Med Classific ation: Endocrine Trulicity 1.5 mg/0.5 mL subcutaneou s pen injector 3-23 00:00: 00 06-30 23:59 :00 No [id number] 1.5 mg WEEKLY 1.5 mg WEEKLY (route: subcutaneo us) Med Classific ation: Endocrine carvedilol 12.5 mg tablet 4-07 00:00: 00 06-30 23:59 :00 No [id number] 12.5 mg 2 TIMES DAILY 12.5 mg 2 TIMES DAILY (route: oral) Med Classific ation: Cardiovas cular Therapy Agents hydrochloro thiazide 25 mg tablet 4- 00:00: 00 06-30 23:59 :00 No [id number] 25 mg DAILY 25 mg DAILY (route: oral) Med Classific ation: Cardiovas cular Therapy Agents sertraline 50 mg tablet 11-19 00:00: 00 07-14 23:59 :00 No [id number] 50 mg BEDTIME 50 mg BEDTIME (route: oral) Med Classific ation: Central Nervous System Agents zolpidem 10 mg tablet 11-19 00:00: 00 06-30 23:59 :00 No [id number] 10 mg NEEDED 10 mg NEEDED (route: oral) Med Classific ation: Central Nervous System Agents sertraline 50 mg tablet 2020-08 2-04 00:00: 00 06-30 23:59 :00 No [id number] 150 mg DAILY 150 mg DAILY (route: oral) Med Classific ation: Central Nervous System Agents buspirone 5 mg tablet 01-14 00:00: 00 06-30 23:59 :00 No [id number] 1 tablet EVERY AM 1 tablet EVERY AM (route: oral) Med Classific ation: Central Nervous System Agents ibuprofen 600 mg tablet - 00:00: 00 06-30 23:59 :00 No [id number] 1 tablet EVERY 6 HOURS 1 tablet EVERY 6 HOURS (route: oral) Med Classific ation: Analgesic , Anti-infl ammatory or Antipyret ic Percocet 5 mg-325 mg tablet 6-02 00:00: 00 02-08 23:59 :00 No [id number] 1 tablet EVERY 6 HOURS 1 tablet EVERY 6 HOURS (route: oral) Med Classific ation: Analgesic , Anti-infl ammatory or Antipyret ic amoxicillin 875 mg-potassiu m clavulanate 125 mg tablet 8-19 00:00: 00 04-09 23:59 :00 No [id number] 1 tablet EVERY 12 HOURS 1 tablet EVERY 12 HOURS (route: oral) Med Classific ation: Anti-Infe ctive Agents ascorbic acid (vitamin C) 500 mg capsule 2024-08 00:00: 00 Yes [id number] 1 capsule 2 TIMES DAILY 1 capsule 2 TIMES DAILY (route: oral) Med Classific ation: Electroly te Balance-N utritiona l Products atorvastati n 10 mg tablet 2024-08 00:00: 00 Yes [id number] 1 tablet EVERY AM 1 tablet EVERY AM (route: oral) Med Classific ation: Cardiovas cular Therapy Agents buspirone 10 mg tablet 2024-08 00:00: 00 Yes [id number] 1 tablet EVERY AM 1 tablet EVERY AM (route: oral) Med Classific ation: Central Nervous System Agents carvedilol 12.5 mg tablet 2024-08 00:00: 00 Yes [id number] 1 tablet 2 TIMES DAILY 1 tablet 2 TIMES DAILY (route: oral) Med Classific ation: Cardiovas cular Therapy Agents cetirizine 10 mg tablet 2024-08 00:00: 00 Yes [id number] 1 tablet EVERY AM 1 tablet EVERY AM (route: oral) Med Classific ation: Respirato ry Therapy Agents cholecalcif daniel (vitamin D3) 25 mcg (1,000 unit) tablet 2024-08 00:00: 00 Yes [id number] 1 tablet EVERY AM 1 tablet EVERY AM (route: oral) Med Classific ation: Electroly te Balance-N utritiona l Products Clotrimazol e AF 1 % topical cream 2024-08 00:00: 00 Yes [id number] 1 inch 2 TIMES DAILY 1 inch 2 TIMES DAILY (route: topical) Med Classific ation: Dermatolo gical ferrous sulfate 325 mg (65 mg iron) tablet 2024-08 00:00: 00 Yes [id number] 1 tablet 2 TIMES DAILY 1 tablet 2 TIMES DAILY (route: oral) Med Classific ation: Electroly te Balance-N utritiona l Products fluticasone 100 mcg-salmete rol 50 mcg/dose blistr powdr for inhalation 2024-08 00:00: 00 Yes [id number] 1-2 inhalat ion EVERY AM 1-2 inhalation EVERY AM (route: inhalation ) Med Classific ation: Respirato ry Therapy Agents glucose 4 gram chewable tablet 2024-08 00:00: 00 Yes [id number] 1 g DIRECTED 1 g DIRECTED (route: oral) Med Classific ation: Endocrine Lantus Solostar U-100 Insulin 100 unit/mL (3 mL) subcutaneou s pen 2024-08 00:00: 00 Yes [id number] 25 unit EVERY AM 25 unit EVERY AM (route: subcutaneo us) Med Classific ation: Endocrine Mounjaro 10 mg/0.5 mL subcutaneou s pen injector 2024-08 00:00: 00 Yes [id number] 10 mg DIRECTED 10 mg DIRECTED (route: subcutaneo us) Med Classific ation: Endocrine omeprazole 20 mg capsule,del ayed release 2024-08 00:00: 00 Yes [id number] 1 capsule EVERY AM 1 capsule EVERY AM (route: oral) Med Classific ation: Gastroint estinal Therapy Agents sertraline 100 mg tablet 2024-08 00:00: 00 Yes [id number] 1 tablet BEDTIME 1 tablet BEDTIME (route: oral) Med Classific ation: Central Nervous System Agents trazodone 150 mg tablet 2024-08 00:00: 00 Yes [id number] 1 tablet BEDTIME 1 tablet BEDTIME (route: oral) Med Classific ation: Central Nervous System Agents Vital Signs Vital Name Observation Time Observation Value Commen ts Temperature 2025-07-29 11:10:00.000 98.6 [degF] Temperature 2025-07-23 11:07:00.000 98.6 [degF] Temperature 2025-07-19 11:02:00.000 98.6 [degF] Temperature 2025-07-12 11:06:00.000 98.6 [degF] Temperature 2025-07-05 09:52:00.000 98.6 [degF] BMI (%) 2025-07-05 09:19:14.000 36 kg/m2 Height 2025-07-05 09:19:08.000 70 [in_us] Pulse 2025-07-29 11:10:00.000 60 /min Pulse 2025-07-23 11:07:00.000 60 /min Pulse 2025-07-19 11:02:00.000 60 /min Pulse 2025-07-16 11:02:00.000 76 /min Pulse 2025-07-12 11:06:00.000 60 /min Pulse 2025-07-05 09:52:00.000 60 /min O2 Saturation (%) 2025-07-29 11:11:00.000 98 % O2 Saturation (%) 2025-07-23 11:08:00.000 98 % O2 Saturation (%) 2025-07-19 11:03:00.000 98 % O2 Saturation (%) 2025-07-12 11:07:00.000 98 % O2 Saturation (%) 2025-07-05 09:53:00.000 98 % Respirations 2025-07-29 11:10:00.000 18 /min Respirations 2025-07-23 11:07:00.000 18 /min Respirations 2025-07-19 11:02:00.000 18 /min Respirations 2025-07-12 11:06:00.000 18 /min Respirations 2025-07-10 10:52:00.000 18 /min Respirations 2025-07-05 09:52:00.000 18 /min Weight (lbs) 2025-07-05 09:19:14.000 252 [lb_av] Systolic Blood Pressure 2025-07-29 11:10:00.000 142 mm [Hg] Systolic Blood Pressure 2025-07-23 11:08:00.000 154 mm [Hg] Systolic Blood Pressure 2025-07-19 11:02:00.000 140 mm [Hg] Systolic Blood Pressure 2025-07-16 11:02:00.000 150 mm [Hg] Systolic Blood Pressure 2025-07-12 11:06:00.000 140 mm [Hg] Systolic Blood Pressure 2025-07-10 10:52:00.000 150 mm [Hg] Systolic Blood Pressure 2025-07-05 09:52:00.000 140 mm [Hg] Diastolic Blood Pressure 2025-07-29 11:10:00.000 90 mm [Hg] Diastolic Blood Pressure 2025-07-23 11:08:00.000 90 mm [Hg] Diastolic Blood Pressure 2025-07-19 11:02:00.000 80 mm [Hg] Diastolic Blood Pressure 2025-07-16 11:02:00.000 84 mm [Hg] Diastolic Blood Pressure 2025-07-12 11:06:00.000 80 mm [Hg] Diastolic Blood Pressure 2025-07-10 10:52:00.000 82 mm [Hg] Diastolic Blood Pressure 2025-07-05 09:52:00.000 80 mm [Hg] Plan of Treatment Planned Activity Planned Date Details Comments Future Scheduled Test SKILLED NU RSE TO EVALUATE PATIENT, IDENTIFY PRIMARY AND CO-MORBID CONDITIONS CODED PER CODING GUIDELINES, AND DEVELOP PATIENT SPECIFIC PLAN OF CARE THAT INCLUDES PATIENT GOAL FOR HOME HEALTH. PLAN OF CARE TO INCLUDE 3 PRN VISIT(S) FOR OASIS DATA COLLECTION/COMPREHENSIVE ASSESSMENT AT TIMEPOINTS PER FEDERAL REGULATIONS. THIS INCLUDES VISITS FOR STEFFANY, RECERT, SCIC, AND/OR DC. [code = SKILLED NURSE TO EVALUATE PATIENT, IDENTIFY PRIMARY AND CO-MORBID CONDITIONS CODED PER CODING GUIDELINES, AND DEVELOP PATIENT SPECIFIC PLAN OF CARE THAT INCLUDES PATIENT GOAL FOR HOME HEALTH. PLAN OF CARE TO INCLUDE 3 PRN VISIT(S) FOR OASIS DATA COLLECTION/COMPREHENSIVE ASSESSMENT AT TIMEPOINTS PER FEDERAL REGULATIONS. THIS INCLUDES VISITS FOR STEFFANY, RECERT, SCIC, AND/OR DC.] Future Scheduled Test SKILLED NU RSE TO PERFORM HOME SAFETY AND FALL ASSESSMENT AND PROVIDE INSTRUCTION TO IMPLEMENT HOME SAFETY AND FALL PREVENTION STRATEGIES. [code = SKILLED NURSE TO PERFORM HOME SAFETY AND FALL ASSESSMENT AND PROVIDE INSTRUCTION TO IMPLEMENT HOME SAFETY AND FALL PREVENTION STRATEGIES.] Future Scheduled Test SKILLED NU RSE FOR OBSERVATION AND ASSESSMENT OF PATIENT S PAIN LEVEL AND EFFECTIVENESS OF PAIN MANAGEMENT REGIMEN. SKILLED NURSE TO INSTRUCT PATIENT/CAREGIVER REGARDING PHARMACOLOGIC AND NON-PHARMACOLOGIC PAIN CONTROL MEASURES. SKILLED NURSE TO REPORT TO PHYSICIAN IF PAIN IS UNCONTROLLED WITH CURRENT PAIN MANAGEMENT REGIMEN. [code = SKILLED NURSE FOR OBSERVATION AND ASSESSMENT OF PATIENT S PAIN LEVEL AND EFFECTIVENESS OF PAIN MANAGEMENT REGIMEN. SKILLED NURSE TO INSTRUCT PATIENT/CAREGIVER REGARDING PHARMACOLOGIC AND NON-PHARMACOLOGIC PAIN CONTROL MEASURES. SKILLED NURSE TO REPORT TO PHYSICIAN IF PAIN IS UNCONTROLLED WITH CURRENT PAIN MANAGEMENT REGIMEN.] Future Scheduled Test SKILLED NU RSE TO ASSESS PATIENT'S SKIN INTEGRITY AND INSTRUCT PATIENT/CAREGIVER ON MEASURES TO PREVENT PRESSURE ULCERS. [code = SKILLED NURSE TO ASSESS PATIENT'S SKIN INTEGRITY AND INSTRUCT PATIENT/CAREGIVER ON MEASURES TO PREVENT PRESSURE ULCERS.] Future Scheduled Test PATIENT DEAN S A RISK OF HOSPITALIZATION AND ED USE. SKILLED NURSE TO ESTABLISH SUPPORT MEASURES TO MINIMIZE RISK OF HOSPITALIZATION AND ED USE, AND INSTRUCT PATIENT/CAREGIVER ON METHODS TO REDUCE AVOIDABLE HOSPITALIZATION AND ED USE. [code = PATIENT HAS A RISK OF HOSPITALIZATION AND ED USE. SKILLED NURSE TO ESTABLISH SUPPORT MEASURES TO MINIMIZE RISK OF HOSPITALIZATION AND ED USE, AND INSTRUCT PATIENT/CAREGIVER ON METHODS TO REDUCE AVOIDABLE HOSPITALIZATION AND ED USE.] Future Scheduled Test SKILLED NU RSE TO PROVIDE INSTRUCTION TO PATIENT/CAREGIVER RELATED TO DISCHARGE PLANNING. [code = SKILLED NURSE TO PROVIDE INSTRUCTION TO PATIENT/CAREGIVER RELATED TO DISCHARGE PLANNING.] Future Scheduled Test SKILLED NU RSE TO O/A OF PATIENTS MENTAL/BEHAVIORAL STATUS, ASSESS VITAL SIGNS 3WK8 ALLOW 2 PRNS FOR MEDICATION MANAGEMENT. [code = SKILLED NURSE TO O/A OF PATIENTS MENTAL/BEHAVIORAL STATUS, ASSESS VITAL SIGNS 3WK8 ALLOW 2 PRNS FOR MEDICATION MANAGEMENT.] Future Scheduled Test SKILLED NU RSE WILL MAINTAIN SITUATIONAL AWARENESS FOR SAFETY AND WILL NOTIFY CLINICAL HAT PARTS CUTTER MACHINE AND PHYSICIAN/PROVIDER WITH ANY CHANGE IN CONDITION. [code = SKILLED NURSE WILL MAINTAIN SITUATIONAL AWARENESS FOR SAFETY AND WILL NOTIFY CLINICAL HAT PARTS CUTTER MACHINE AND PHYSICIAN/PROVIDER WITH ANY CHANGE IN CONDITION.] Future Scheduled Test SKILLED NU RSE TO REVIEW PATIENT MEDICATIONS. INSTRUCT PATIENT/CAREGIVER ON MONITORING OF EFFECTIVENESS, ADVERSE DRUG REACTIONS, SIDE EFFECTS OF ALL MEDICATIONS (PRESCRIPTION/-OTC), AND HOW AND WHEN TO REPORT PROBLEMS. [code = SKILLED NURSE TO REVIEW PATIENT MEDICATIONS. INSTRUCT PATIENT/CAREGIVER ON MONITORING OF EFFECTIVENESS, ADVERSE DRUG REACTIONS, SIDE EFFECTS OF ALL MEDICATIONS (PRESCRIPTION/-OTC), AND HOW AND WHEN TO REPORT PROBLEMS.] Future Scheduled Test SKILLED NU RSE FOR O/A AND SKILLED TEACHING RELATED TO MANAGEMENT OF DEPRESSIVE SYMPTOMS AND/OR DEPRESSION. SN TO REPORT SIGNIFICANT CHANGE IN DEPRESSIVE SYMPTOMS TO CLINICAL PROVIDER FOR EARLY INTERVENTION. [code = SKILLED NURSE FOR O/A AND SKILLED TEACHING RELATED TO MANAGEMENT OF DEPRESSIVE SYMPTOMS AND/OR DEPRESSION. SN TO REPORT SIGNIFICANT CHANGE IN DEPRESSIVE SYMPTOMS TO CLINICAL PROVIDER FOR EARLY INTERVENTION.] Future Scheduled Test SKILLED NU RSE TO ASSESS PATIENT S PSYCHOSOCIAL STATUS TO IDENTIFY POTENTIAL ISSUES THAT MAY COMPLICATE THE PROVISION OF THE PLAN OF CARE INCLUDING THE PATIENT S ABILITY TO ACCESS COMMUNITY RESOURCES AND PSYCHOSOCIAL SUPPORT SERVICES. [code = SKILLED NURSE TO ASSESS PATIENT S PSYCHOSOCIAL STATUS TO IDENTIFY POTENTIAL ISSUES THAT MAY COMPLICATE THE PROVISION OF THE PLAN OF CARE INCLUDING THE PATIENT S ABILITY TO ACCESS COMMUNITY RESOURCES AND PSYCHOSOCIAL SUPPORT SERVICES.] Future Scheduled Test SKILLED NU RSE TO PROVIDE TEACHING ON SIGNS AND SYMPTOMS AND MANAGEMENT OF HYPERTENSION. [code = SKILLED NURSE TO PROVIDE TEACHING ON SIGNS AND SYMPTOMS AND MANAGEMENT OF HYPERTENSION.] Future Scheduled Test SKILLED NU RSE FOR O/A, TEACHING AND MANAGEMENT OF ACUTE KIDNEYINJURY(SPECIFY GENITOURINARY DISEASE) FOR EARLY IDENTIFICATION OF EXACERBATION OF DISEASE PROCESS [code = SKILLED NURSE FOR O/A, TEACHING AND MANAGEMENT OF ACUTE KIDNEYINJURY(SPECIFY GENITOURINARY DISEASE) FOR EARLY IDENTIFICATION OF EXACERBATION OF DISEASE PROCESS] Future Scheduled Test SKILLED NU RSE FOR O/A AND TEACHING OF DIABETIC MANAGEMENT INCLUDING BLOOD SUGAR MONITORING/USE OF GLUCOMETER, DIABETIC DIET, LOWER EXTREMITY SKIN INSPECTION, PROPER SKIN/FOOT CARE, AND SIGNS AND SYMPTOMS HYPO/HYPERGLYCEMIA TO REPORT. [code = SKILLED NURSE FOR O/A AND TEACHING OF DIABETIC MANAGEMENT INCLUDING BLOOD SUGAR MONITORING/USE OF GLUCOMETER, DIABETIC DIET, LOWER EXTREMITY SKIN INSPECTION, PROPER SKIN/FOOT CARE, AND SIGNS AND SYMPTOMS HYPO/HYPERGLYCEMIA TO REPORT.] Future Scheduled Test SKILLED NU RSE TO PROVIDE TEACHING/REINFORCEMENT RELATED TO URINARY INCONTINENCE. [code = SKILLED NURSE TO PROVIDE TEACHING/REINFORCEMENT RELATED TO URINARY INCONTINENCE.] Future Scheduled Test SKILLED NU RSE FOR O/A AND TEACHING RELATED TO APENDICEAL ADENOCARCINOMA(SPECIFY TYPE OF CANCER/NEOPLASM) INCLUDING SIGNS AND SYMPTOMS OF DISEASE PROGRESSION, TREATMENT, AND MANAGEMENT OF POTENTIAL SIDE EFFECTS. [code = SKILLED NURSE FOR O/A AND TEACHING RELATED TO APENDICEAL ADENOCARCINOMA(SPECIFY TYPE OF CANCER/NEOPLASM) INCLUDING SIGNS AND SYMPTOMS OF DISEASE PROGRESSION, TREATMENT, AND MANAGEMENT OF POTENTIAL SIDE EFFECTS.] Goal Patient Goal - P ATIENT VERBALIZED GOAL OF IMPROVING MEMORY AND HEALTH. Goal Provider Goal - A PLAN OF CARE WILL BE ESTABLISHED THAT MEETS PATIENT'S USP NEEDS AND INCLUDES PATIENT GOAL FOR HOME HEALTH. Goal Provider Goal - PATIENT/CAREGIVER WILL VERBALIZE/DEMONSTRATE EFFECTIVE HOME SAFETY AND FALL PREVENTION STRATEGIES THROUGHOUT CERTIFICATION PERIOD. Goal Provider Goal - PATIENT/CAREGIVER WILL DEMONSTRATE UNDERSTANDING OF PHARMACOLOGIC AND NONPHARMACOLOGIC PAIN CONTROL MEASURES AND PATIENT WILL HAVE IMPROVEMENT IN PAIN INTERFERING WITH ACTIVITY EVIDENCED BY PAIN AT A LEVEL THAT IS ACCEPTABLE TO THE PATIENT AND PAIN LEVEL WITHIN ESTABLISHED PARAMETERS BY END OF CERTIFICATION PERIOD. Goal Provider Goal - PATIENT/CAREGIVER WILL VERBALIZE UNDERSTANDING OF PRESSURE ULCER PREVENTION BY END OF THE EPISODE. Goal Provider Goal - PATIENT WILL HAVE SUPPORT MEASURES ESTABLISHED TO PREVENT HOSPITALIZATION AND ED USE AND PATIENT/CAREGIVER WILL VERBALIZE/DEMONSTRATE METHODS TO REDUCE AVOIDABLE HOSPITALIZATION AND ED USE BY END OF EPISODE. Goal Provider Goal - PATIENT/CAREGIVER WILL VERBALIZE UNDERSTANDING OF DISCHARGE PLANNING INSTRUCTIONS BY DATE OF DISCHARGE. Goal Provider Goal - ALTERED MENTAL/BEHAVIORAL STATUS WILL BE IDENTIFIED PROMPTLY AND INTERVENTION INITIATED QUICKLY TO MINIMIZE ASSOCIATED RISKS THROUGHOUT CERTIFICATION PERIOD. Goal Provider Goal - PATIENT WILL REMAIN SAFE IN THE COMMUNITY AND WILL BE FREE OF DANGER TO SELF AND OTHERS THROUGHOUT THE CERTIFICATION PERIOD. Goal Provider Goal - PATIENT/CAREGIVER WILL VERBALIZE UNDERSTANDING OF EDUCATION PROVIDED ON MEDICATIONS BY THE END OF THE CERTIFICATION PERIOD. Goal Provider Goal - PATIENT WILL REMAIN SAFE WITHOUT DECOMPENSATION IN DEPRESSIVE CONDITION, WHILE MAINTAINING OPTIMAL LEVEL OF MENTAL HEALTH AND WELL BEING THROUGHOUT CERTIFICATION PERIOD. Goal Provider Goal - PSYCHOSOCIAL NEEDS WILL BE IDENTIFIED AND PLAN IMPLEMENTED TO MINIMIZE RISK THROUGHOUT CERTIFICATION PERIOD. Goal Provider Goal - PATIENT/CAREGIVER WILL VERBALIZE SIGNS AND SYMPTOMS OF HYPERTENSION AND WILL BE ABLE TO DEMONSTRATE ABILITY TO MANAGE EXACERBATION BY END OF THE EPISODE. Goal Provider Goal - PATIENT/CAREGIVER WILL VERBALIZE UNDERSTANDING OF (SPECIFY) GENITOURINARY DISEASE PROCESS, AND EXACERBATIONS OF GENITOURINARY DISEASE WILL BE PROMPTLY IDENTIFIED FOR EARLY INTERVENTION THROUGHOUT THE CERTIFICATION PERIOD. Goal Provider Goal - PATIENT/CAREGIVER WILL VERBALIZE/DEMONSTRATE KNOWLEDGE OF DIABETIC MANAGEMENT. CHANGES IN DIABETIC STATUS WILL BE IDENTIFIED AND REPORTED TO PHYSICIAN FOR PROMPT INTERVENTION THROUGHOUT THE CERTIFICATION PERIOD. Goal Provider Goal - PATIENT / CAREGIVER WILL VERBALIZE UNDERSTANDING OF EFFECTS OF URINARY INCONTINENCE BY THE END OF THE CERTIFICATION PERIOD. Goal Provider Goal - PATIENT/CAREGIVER WILL VERBALIZE/DEMONSTRATE MANAGEMENT OF SPECIFY TYPE OF CANCER/NEOPLASM) CANCER/NEOPLASM DISEASE AND THE SIDE EFFECTS OF TREATMENTS DURING THIS EPISODE. Progress Notes Progress Notes <paragraph>[Visit Date: 2024 by DANIE FLORES RN]:</paragraph><paragraph>BETTY SURESH IS A 59 YEAR OLD MALE LIVING IN A SINGLE FAMILY HOME WITH HIS . HE PRESENTS TODAY 07/29/2025 TO [facility] FOR START OF CARE FOR USP SERVICES. TO [facility] [place] FOR COMPLAINT OF RIGHT UPPER QUADRANT PAIN ADMITTED 06/28/2025 DISCHARGED 07/02/2025. PMH: APENDICEAL ADENOCARCINOMA, DIARRHEA, T2DM, HTN, ACUTE KIDNEY INJURY, KYM, OBESITY, DYSLYPEDEMIA, EPIDERMAL CYST, VARICOSE VEIN OF RIGHT LOWER EXTREMITY, UMBILICAL HERNIA, CELLULITIS OF ABDOMINAL WALL, DIABETIC NEUROPATHY.. PATIENT AOX3 FORGETFUL AND SLIGHTLY CONFUSED. DENIES SI/HI/AH/VH. BIM 6. PATIENT IS INCONTINENT, OCCASINALLY HAS DIARRHEA. APPETITE FAIR. SKIN DRY AND INTACT. AMBULATES WITH CANE AND WALKER. VITAL SIGNS WITHIN NORMAL RANGE BG 107. CONSULT SURGEON [facility] 07/22/2025. DAY SURGERY TO BE SCHEDULED FOR ABNORMAL EXPLORATORY TO DETERMINE IF SURGERY IS WARRANTED. ON SURGERY SCHEDULED 08/01/2025 AT [facility] [place]. CONTINUED COMPLAINT OF PAIN LOWER BACK SURGEON RECOMMENDED HOT PACKS. PATIENT STATES WILL APPLY HOT PACKS IN EVENING. </paragraph><paragraph> NEXT PCP FOLLOW-UP APPOINTMENT TO BE SCHEDULED. </paragraph><paragraph>PATIENT REMAINS HOMEBOUND DUE TO TAXING EFFORT TO LEAVE HOME SAFELY WITHOUT ASSISTANCE AND WEAKNESS.</paragraph> Encounters Start Date/Time End Date/Time Encounter Type Admission Type Attending [facility] Care Department Encounter ID Discharge Date Discharge Status Discharge Condition Discharge Reason Percent Goals Met 2025-07-05 00:00:00 2025-09-02 00:00:00 Outpatient DANIE LUTHER [facility] [id number] 20.69
== END 2025-07-30 02:11 | disposition home or self-care (01) ==
PROVIDERS: Physician Assistant Medical; Emergency Provider Emergency Medicine; PCP Internal Medicine
DX: R10.84 Generalized abdominal pain (principal); Z85.038 Personal history of other malignant neoplasm of large intestine; E11.9 Type 2 diabetes mellitus without complications; I10 Essential (primary) hypertension; E78.5 Hyperlipidemia, unspecified; Z79.899 Other long term (current) drug therapy; Z79.02 Long term (current) use of antithrombotics/antiplatelets
CPT/HCPCS: 36415; 74177; 80053; 81003; 83735; 85025; 96361; 96374; 96375; 99284; 99285; J2270; J2405; Q9967